=== PATIENT | female | born 1965 | race Caucasian/White ===

== ENCOUNTER → 2016-04-05 | Outpatient (REF) | payer OTHER ==
[~2016-04-05] MED LIST: BACL10TA2; ELIQ5TAB PO; FLON0.05; GABI4TAB OR; IBUP400T OR; IBUP600T OR; KLON0.5T OR; MIRA3350 PO; OMEP10CASR PO; OXYB5TAB4 OR; OXYC-299 PO; OXYC15TA76 PO; PENNSAID; ROBA750T OR; SENO8.6T10 PO; SKEL800T5 OR; SOMA350T; SOMA350T OR; TOPI25TA2; TOPI50TA; TOPI50TA OR; TOPR25TA PO; TRAM50TA2; VICO5TAB; VIT D 2000 OR; ZIPSOR; ZOFR4TAB3 PO; claritin
[2016-04-05 11:24] LABS: ALBUMIN 3.4 GM/DL (3.2-5.2); ALBUMIN/GLOBULIN RATIO 1.13 (1.00-1.93); BILIRUBIN,TOTAL 0.4 MG/DL (0.2-1.0); CREATININE FOR GFR 1.07 MG/DL (0.55-1.02); GLOMERULAR FILTRATION RATE 57.6 (>51); TOTAL PROTEIN 6.4 GM/DL (6.4-8.2)
== END ==
LOC: M SFHCPLAZ 09:23
PROVIDERS: ATTEND Family Medicine
DX: G57.93 Unspecified mononeuropathy of bilateral lower limbs (principal)

== ENCOUNTER → 2016-04-26 | Outpatient (CLI) | payer OTHER ==
--- NOTE | 2016-05-05 00:05 | ECWPNPC ---
PATIENT NAME: SMITH VIVEROS : 1965 GENDER: FEMALE VISIT DATE: 04/26/2016 DISCHARGE DATE: 04/26/16 1221 VISIT LOCKED DATE TIME: PHYSICIAN: ROCÍO GALDAMEZ RESOURCE: ROCÍO GALDAMEZ REASON FOR APPOINTMENT 1. BACK/NECK HISTORY OF PRESENT ILLNESS HISTORY OF PRESENT ILLNESS: PAIN THE PATIENT DESCRIBES THE PAIN... FALL RISK SCREENING: SCREENING :NO FALLS IN THE PAST YEAR TODAY'S VISIT: NOTES: RATES PAIN TODAY 10/10, DESCRIBES PAIN CONSTANT, ACHING, BRNING, SHARP AND STABBING, TENDER, THROBBING AND SHOOTING. WORST AREA OF PAIN IS MID AND LOW BACK HAD TPI TO NECK UPPER SHOULDERS WERE VERY HELPFUL AND DECREASED PAIN IN THIS AREA BY 50 % WITH SIG IMPROVEMENT IN NECK ROM.. CURRENT MEDICATIONS TAKING NYSTATIN POWDER - POWDER DIRECTED EXTERNALLY TWICE A DAY TAKING ZOFRAN ODT 4 MG TABLET DISPERSIBLE 1 TABLET ON THE TONGUE AND ALLOW TO DISSOLVE ORALLY BID NEEDED TAKING TIZANIDINE HCL 4 MG TABLET 1 TABLET NEEDED ORALLY EVERY 8 HRS TAKING ELIQUIS 5 MG TABLET 1 TAB(S) ORALLY TWICE DAILY TAKING ATORVASTATIN CALCIUM 40 MG TABLET 1 TABLET ORALLY ONCE A DAY TAKING GABAPENTIN 100 MG CAPSULE 1 TABLET ORALLY THREE TIMES DAILY TAKING PAROXETINE HCL 30 MG TABLET 1 TABLET IN THE MORNING ORALLY ONCE A DAY TAKING VISTARIL 25 MG CAPSULE 1 CAPSULE NEEDED ORALLY TWICE DAILY NEEDED TAKING PRILOSEC 20 MG CAPSULE DELAYED RELEASE 1 CAPSULE ORALLY TWICE DAILY TAKING TRAMADOL HCL 50 MG TABLET 1 TABLET NEEDED ORALLY TWICE DAILY NEEDED NOT-TAKING LIDOCAINE 4 % CREAM 1 APPLICATION TO AFFECTED AREA NEEDED EXTERNALLY APPLY TO BASE OF NECK, LOW BACK AND LEFT ARM Q 6 HRS NEEDED FOR PAIN, NOTES: NONE DISCONTINUED AMOXICILLIN-POT CLAVULANATE 875-125 MG TABLET 1 TABLET ORALLY EVERY 12 HRS MEDICATION LIST REVIEWED AND RECONCILED WITH THE PATIENT PAST MEDICAL HISTORY FIBROMYALGIA DX 4 YEARS AGO, BEING FOLLOWED AT PAIN CLINIC MIGRAINE HEADACHE STRESS INCONTINENCE DEPRESSION HYPERLIPIDEMIA VITAMIN D DEFICIENCY AFIB GERD INTERMITTENT A FIB ALLERGIES ZIPSOR: ALLERGY FLEXERIL: AGGITATION: ALLERGY LYRICA: ANAPHYLAXIS: ALLERGY DICLOFENAC POTASSIUM: AGGITATION (ZIPSOR): ALLERGY BACTRIM: NAUSEA/VOMITING: ALLERGY SHELL FISH: SWELLS, HIVES: ALLERGY CYMBALTA: NAUSEA/VOMITING: SIDE EFFECTS AMITRIPTYLINE: AGGITATION: SIDE EFFECTS SOCIAL HISTORY GENERAL: TOBACCO USE ARE YOU A:NONSMOKER LEARNING BARRIERS / SPECIAL NEEDS ORIENTED TO PLAN OF CARE: PATIENT, PAIN MANAGEMENT PATIENT, ORIENTED TO PLAN OF CARE: PATIENT, PAIN MANAGEMENT PATIENT. NEW PATIENT PAIN DIARY TODAY'S VISITNOTES FROM 0-10, WHAT LEVEL IS YOUR PAIN TODAY?0 PAIN CLINIC PFS, CLERGY, PUBLIC HEALTH REFERRALS PFS REFERRAL NEEDED?NO CLERGY REFERRAL NEEDED?NO PUBLIC HEALTH REFERRAL NEEDED?NO WAS THE PROVIDER NOTIFIED OF ANY PERTINENT INFO?NO PFS REFERRAL NEEDED?NO CLERGY REFERRAL NEEDED?NO PUBLIC HEALTH REFERRAL NEEDED?NO WAS THE PROVIDER NOTIFIED OF ANY PERTINENT INFO?NO REVIEW OF SYSTEMS CONSTITUTIONAL: ANY CHANGE IN YOUR MEDICAL CONDITION? NO . CHILLS NO . FEVER NO . INFECTION: DO YOU HAVE NEW INFECTIONS? NO . DO YOU HAVE HISTORY OF MRSA? NO . MUSCULOSKELETAL: ANY NEW PATTERNS OF PAIN OR NUMBNESS? YES, RIGHT KNEE- WENT TO [facility] [place] TODAY IS GOING TO HAVE AN MRI . GASTROENTEROLOGY: ANY NEW CHANGE IN BOWEL CONTROL? NO . GENITOURINARY: ANY NEW CHANGE IN BLADDER CONTROL? NO . IS THERE A CHANCE YOU COULD BE ? NO . HEMATOLOGY/LYMPH: DO YOU TAKE ANY BLOOD THINNERS? (FOR EXAMPLE- COUMADIN, PLAVIX, AGGRENOX, PLATEL, PRADAXA, OR XARELTO) YES, ELOQUIS . WHEN WAS YOUR LAST DOSE? DATE: TIME: [id number] . NEUROLOGY: HAVE YOU FALLEN IN THE PAST 6 MONTHS? YES . ANY NEW EXTREMITY NUMBNESS OR WEAKNESS? NO . CARDIOLOGY: DO YOU HAVE A PACEMAKER OR DEFIBRILLATOR? NO . RESPIRATORY: HAVE YOU BEEN SICK IN THE PAST WEEK? NO . FEVER NO . FLU LIKE SYMPTOMS? NO . COUGH NO . INTEGUMENTARY: DO YOU HAVE ANY RASHES OR OPEN SORES? NO . ALLERGIC/IMMUNO: ARE YOU ALLERGIC TO SHELLFISH OR IV DYE? YES SHELLFISH . ANY NEW ALLERGIES? NO . PSYCHIATRIC: DO YOU HAVE THOUGHTS OF HURTING YOURSELF OR SOMEONE ELSE? NO . ARE YOU ABUSED, NEGLECTED, OR IN AN UNSAFE ENVIRONMENT? NO . ENDOCRINOLOGY: ARE YOU DIABETIC? NO . OTHER: DO YOU NEED ANY PRESCRIPTIONS? NO . IF YES, PLEASE LIST: ____ . ANY NEW PROBLEMS WITH YOUR MEDICATIONS? NO . WHEN DID YOU LAST EAT? ____ . WHEN DID YOU LAST DRINK? ____ . WHAT DID YOU LAST DRINK? ____ . NAME OF PERSON DRIVING YOU HOME? ____ . DO YOU HAVE ANY OTHER QUESTIONS OR CONCERNS NO . REVIEWED BY: PROVIDER: ROCÍO DUTTA . VITAL SIGNS WT 260 LBS, HT 61 IN, BMI 49.12 INDEX, BP 144/98 MM HG, HR 107 /MIN, RR 18 /MIN, TEMP 98.5 F, OXYGEN SAT % 98, NA INITIALS TL 1144, REVIEWED BY: CMELEVATED BP 144/98, RN Michelle AWARE- TL. EXAMINATION GENERAL EXAMINATION: PSYCHALERT , ORIENTED X 3 , APPROPRIATE MOOD AND AFFECT TALKACTIVE. LUNGS:SCATTERED WHEEZES BILATERALLY. . HEART:HEART RATE REGULAR. MUSCULOSKELETAL:TRIGGER POINTS:, ELICITED WITH PALPATION OVER LUMBAR PARAVERTEBRAL MUSCLES AND INTO THE SACRUM. RESTRICTION OF ROM IN THIS AREA, TRIGGER POINTS SO NOTED WITH PALPATION OVER MID THORACIC MUSCLES WITH RESTRICITON OF RESPIRATORY EXCURCION NOTED. MUSCLE STRENGTH 5 OVER 5 DISTALLY AND PROXIMALLY IN THE BILATERAL UPPER AND LOWER EXTREMITIES. SOME TENDERNESS WITH PALPATION OVER THE CERVICAL PARASPINOUS MUSCLES. GOOD SHOULDER SHRUG TODAY.. ASSESSMENTS MYALGIA - M79.1 (PRIMARY) FIBROMYALGIA - M79.7 TREATMENT MYALGIA TRIGGER POINT 3 + ROCÍO LIRA 04/26/2016 12:05:48 PM > MID THORACIC AND LOW BACK NOTES: DO NOT STOP ELIQUIS PRIOR TO PROCEDURE,TRIGGER POINT INJECTION: YOUR EXPERIENCE MATERIAL WAS PRINTED. PROCEDURE CODES FA211 ESTABILISHED PATIENT [facility] CHARGE DISPOSITION & COMMUNICATION FOLLOW UP AFTER INJECTION (REASON: CHECK AUTH FOR TPI - ON ELIQUIS) ELECTRONICALLY SIGNED BY MAXIMILIANO NOEL ON 05/04/2016 AT 09:26 AM EST DISCLAIMER : THIS IS A VISIT SUMMARY EXTRACTED FROM THE [employer] CHART. IT IS NOT A COPY OF THE [employer] PROGRESS NOTE. RITA
== END ==
LOC: M PAIN 11:40
PROVIDERS: ATTEND Nurse Practitioner Family
DX: Z09 Encounter for follow-up examination after completed treatment for conditions other than malignant neoplasm (principal); G89.29 Other chronic pain; M79.7 Fibromyalgia; G43.909 Migraine, unspecified, not intractable, without status migrainosus; F32.9 Major depressive disorder, single episode, unspecified; E78.5 Hyperlipidemia, unspecified; E55.9 Vitamin D deficiency, unspecified; I48.91 Unspecified atrial fibrillation; K21.9 Gastro-esophageal reflux disease without esophagitis; M46.1 Sacroiliitis, not elsewhere classified; F41.9 Anxiety disorder, unspecified; Z88.8 Allergy status to other drugs, medicaments and biological substances; Z91.013 Allergy to seafood; Z79.01 Long term (current) use of anticoagulants; Z79.891 Long term (current) use of opiate analgesic; Z79.899 Other long term (current) drug therapy

== ENCOUNTER → 2016-05-18 | Outpatient (CLI) | payer OTHER ==
[~2016-05-18] MED LIST changes: +BUPIVACAINE HCL 0.25% 10 ML VIAL As Ordered ONE; +BUPIVACAINE HCL 0.25% 30 ML VIAL As Ordered ONE; +TRIAMCINOLONE ACETONIDE SUSP 40 MG/ML VIAL (J3301) As Ordered ONE; +diazePAM 5 MG TAB As Ordered ONE; +oxyCODONE 5MG TAB As Ordered ONE
--- NOTE | 2016-05-27 23:33 | ECWPNPC ---
PATIENT NAME: SMITH VIVEROS : 1965 GENDER: FEMALE VISIT DATE: 05/18/2016 DISCHARGE DATE: 05/18/16 1050 VISIT LOCKED DATE TIME: PHYSICIAN: ARELIS MILLER RESOURCE: ARELIS MILLER REASON FOR APPOINTMENT 1. TPI- MID THORACIC AND LOW BACK HISTORY OF PRESENT ILLNESS HISTORY OF PRESENT ILLNESS: PAIN THE PATIENT DESCRIBES THE PAIN... FALL RISK SCREENING: SCREENING :NO FALLS IN THE PAST YEAR CURRENT MEDICATIONS TAKING NYSTATIN POWDER - POWDER DIRECTED EXTERNALLY TWICE A DAY, NOTES: 1 MONTH TAKING ZOFRAN ODT 4 MG TABLET DISPERSIBLE 1 TABLET ON THE TONGUE AND ALLOW TO DISSOLVE ORALLY BID NEEDED, NOTES: 2 MONTHS TAKING TIZANIDINE HCL 4 MG TABLET 1 TABLET NEEDED ORALLY EVERY 8 HRS, NOTES: 04/2016 TAKING ELIQUIS 5 MG TABLET 1 TAB(S) ORALLY TWICE DAILY, NOTES: 05/18/16 6AM TAKING ATORVASTATIN CALCIUM 40 MG TABLET 1 TABLET ORALLY ONCE A DAY, NOTES: 05/18 6AM TAKING GABAPENTIN 100 MG CAPSULE 1 TABLET ORALLY THREE TIMES DAILY, NOTES: 05/18 6AM TAKING PAROXETINE HCL 30 MG TABLET 1 TABLET IN THE MORNING ORALLY ONCE A DAY, NOTES: 05/18 6AM TAKING VISTARIL 25 MG CAPSULE 1 CAPSULE NEEDED ORALLY TWICE DAILY NEEDED, NOTES: 05/17 8PM TAKING PRILOSEC 20 MG CAPSULE DELAYED RELEASE 1 CAPSULE ORALLY TWICE DAILY, NOTES: 05/18 6AM TAKING TRAMADOL HCL 50 MG TABLET 1 TABLET NEEDED ORALLY TWICE DAILY NEEDED, NOTES: 2016 NOT-TAKING LIDOCAINE 4 % CREAM 1 APPLICATION TO AFFECTED AREA NEEDED EXTERNALLY APPLY TO BASE OF NECK, LOW BACK AND LEFT ARM Q 6 HRS NEEDED FOR PAIN, NOTES: NONE MEDICATION LIST REVIEWED AND RECONCILED WITH THE PATIENT PAST MEDICAL HISTORY FIBROMYALGIA DX 4 YEARS AGO, BEING FOLLOWED AT PAIN CLINIC MIGRAINE HEADACHE STRESS INCONTINENCE DEPRESSION HYPERLIPIDEMIA VITAMIN D DEFICIENCY AFIB GERD INTERMITTENT A FIB ALLERGIES ZIPSOR: ALLERGY FLEXERIL: AGGITATION: ALLERGY LYRICA: ANAPHYLAXIS: ALLERGY DICLOFENAC POTASSIUM: AGGITATION (ZIPSOR): ALLERGY BACTRIM: NAUSEA/VOMITING: ALLERGY SHELL FISH: SWELLS, HIVES: ALLERGY CYMBALTA: NAUSEA/VOMITING: SIDE EFFECTS AMITRIPTYLINE: AGGITATION: SIDE EFFECTS SOCIAL HISTORY GENERAL: TOBACCO USE ARE YOU A:NONSMOKER LEARNING BARRIERS / SPECIAL NEEDS ORIENTED TO PLAN OF CARE: PATIENT, PAIN MANAGEMENT PATIENT, ORIENTED TO PLAN OF CARE: PATIENT, PAIN MANAGEMENT PATIENT. NEW PATIENT PAIN DIARY TODAY'S VISITNOTES FROM 0-10, WHAT LEVEL IS YOUR PAIN TODAY?0 PAIN CLINIC PFS, CLERGY, PUBLIC HEALTH REFERRALS PFS REFERRAL NEEDED?NO CLERGY REFERRAL NEEDED?NO PUBLIC HEALTH REFERRAL NEEDED?NO WAS THE PROVIDER NOTIFIED OF ANY PERTINENT INFO?NO PFS REFERRAL NEEDED?NO CLERGY REFERRAL NEEDED?NO PUBLIC HEALTH REFERRAL NEEDED?NO WAS THE PROVIDER NOTIFIED OF ANY PERTINENT INFO?NO REVIEW OF SYSTEMS CONSTITUTIONAL: ANY CHANGE IN YOUR MEDICAL CONDITION? NO . CHILLS NO . FEVER NO . INFECTION: DO YOU HAVE NEW INFECTIONS? NO . DO YOU HAVE HISTORY OF MRSA? NO . MUSCULOSKELETAL: ANY NEW PATTERNS OF PAIN OR NUMBNESS? YES, PAIN GOING UP NECK . GASTROENTEROLOGY: ANY NEW CHANGE IN BOWEL CONTROL? NO . GENITOURINARY: ANY NEW CHANGE IN BLADDER CONTROL? NO . IS THERE A CHANCE YOU COULD BE ? NO . HEMATOLOGY/LYMPH: DO YOU TAKE ANY BLOOD THINNERS? (FOR EXAMPLE- COUMADIN, PLAVIX, AGGRENOX, PLATEL, PRADAXA, OR XARELTO) YES, ELIQUIS . WHEN WAS YOUR LAST DOSE? DATE: 05/18/16 6AM . NEUROLOGY: HAVE YOU FALLEN IN THE PAST 6 MONTHS? YES, PT STATES THAT SHE WAS HOME AND KNEE GAVE OUT, FELL FELT PAIN IN KNEE AND BACK. NO REPORT TO ED . ANY NEW EXTREMITY NUMBNESS OR WEAKNESS? NO . CARDIOLOGY: DO YOU HAVE A PACEMAKER OR DEFIBRILLATOR? NO . RESPIRATORY: HAVE YOU BEEN SICK IN THE PAST WEEK? NO . FEVER NO . FLU LIKE SYMPTOMS? NO . COUGH NO . INTEGUMENTARY: DO YOU HAVE ANY RASHES OR OPEN SORES? NO . ALLERGIC/IMMUNO: ARE YOU ALLERGIC TO SHELLFISH OR IV DYE? YES, SHELLFISH . ANY NEW ALLERGIES? NO . PSYCHIATRIC: DO YOU HAVE THOUGHTS OF HURTING YOURSELF OR SOMEONE ELSE? NO . ARE YOU ABUSED, NEGLECTED, OR IN AN UNSAFE ENVIRONMENT? NO . ENDOCRINOLOGY: ARE YOU DIABETIC? NO . OTHER: DO YOU NEED ANY PRESCRIPTIONS? YES, PAIN MEDS PLEASE . IF YES, PLEASE LIST: ____ . ANY NEW PROBLEMS WITH YOUR MEDICATIONS? NO . WHEN DID YOU LAST EAT? 05/17 6PM . WHEN DID YOU LAST DRINK? 05/17 6AM . WHAT DID YOU LAST DRINK? WATER . NAME OF PERSON DRIVING YOU HOME? ANN . DO YOU HAVE ANY OTHER QUESTIONS OR CONCERNS FLU SHOT IN 2015, PT STATES THAT SHE IS GETTING INJECTION [facility] [place] ON [facility] . REVIEWED BY: PROVIDER: . VITAL SIGNS WT 220 LBS, HT 61 IN, BMI 41.56 INDEX, BP 181.91 MM HG, HR 92 /MIN, RR 18 /MIN, TEMP 97.5 F, OXYGEN SAT % 94%, SAFE IN ENV? (Y/N) Y, NA INITIALS OR 09:10, REVIEWED BY: JOHNNIE. ASSESSMENTS MYALGIA - M79.1 (PRIMARY) PROCEDURES PN TRIGGER POINT INJECTION WITH STEROIDS PRE PROCEDURE DIAGNOSIS 1. MYALGIA 2. PAIN AT BILATERAL THORACIC AREA AND BILATERAL LOWER BACK AREA POST PROCEDURE DIAGNOSIS 1. MYALGIA 2. PAIN AT BILATERAL THORACIC AREA AND BILATERAL LOWER BACK AREA PROCEDURE TRIGGER POINT INJECTION AT BILATERAL THORACIC AREA AND BILATERAL LOWER BACK AREA SURGEON DR. ARELIS MILLER PATCH FINISHER NONE ANESTHESIA LOCAL PRE PROCEDURE NOTE THE PATIENT HAS A HISTORY OF CHRONIC PAIN AT THE RIGHT AND LEFT THORACIC AREA AND RIGHT AND LEFT LOWER BACK AREA. I EVALUATE THE PATIENT AND REVIEWED THE CHART. THERE IS EVIDENCE OF BANDS OF TISSUE WITH RESTRICTION OF MOVEMENT AND PRESENCE OF TRIGGER POINT AT THE AFFECTED AREA. I WENT OVER THE RISKS, ALTERNATIVES, AND BENEFITS ASSOCIATED WITH THIS PROCEDURE. THE PATIENT WOULD LIKE TO PROCEED AND GIVE CONSENT TO PERFORMED THE PROCEDURE. THE PATIENT DENIES UNEXPLAINABLE WEIGHT LOSS, FEVER, CHILLS, OR NEW CHANGES IN URINARY OR BOWEL CONTROL DESCRIPTION OF PROCEDURE THE PATIENT WAS BROUGHT TO THE PROCEDURE ROOM AND PLACED IN THE SITTING POSITION. THE AREA WAS CLEANED WITH ALCOHOL. THE PROCEDURE WAS DONE USING ASEPTIC STERILE TECHNIQUE. I CHECKED LATERALITY AND THE LEVEL WHERE THE PROCEDURE WAS GOING TO BE PERFORMED WITH THE PATIENT AND THE SUPPORTING STAFF AT THE MOMENT OF THE TIME OUT IN THE PROCEDURE ROOM. USING A 25-GAUGE NEEDLE, TRIGGER POINTS WERE INJECTED AT THE RIGHT AND LEFT THORACIC AREA AND RIGHT AND LEFT LOWER BACK AREA WITH A TOTAL OF 40 ML OF BUPIVACAINE 0.25% AND KENALOG 40 MG. THERE WAS NO EVIDENCE OF BLOOD, PARESTHESIA OR CEREBROSPINAL FLUID DURING THE PROCEDURE. THE PATIENT WAS SENT TO THE RECOVERY ROOM. THE PATIENT WAS MOVING THE EXTREMITIES AND DOING WELL. THERE WAS NO COMPLICATION DURING THE PROCEDURE POST PROCEDURE NOTE THE PATIENT WILL BE SEEN IN A FOLLOW UP IN THE NEXT FEW WEEKS. INSTRUCTIONS WERE GIVEN, QUESTIONS WERE ANSWERED, AND THE PATIENT EXPRESSED UNDERSTANDING AND AGREES WITH THE PLAN. INSTRUCTIONS WERE GIVEN, QUESTIONS WERE ANSWERED, PATIENT REPORTS UNDERSTANDING AND AGREES WITH THE PLAN. I, [employer] DOUGLAS, DOCUMENTED THE ABOVE INFORMATION ACTING A SCRIBE FOR DR. MILLER. I HAVE REVIEWED THE ABOVE DOCUMENT, WRITTEN BY [employer] SANCHEZIBRaul AND I VERIFY THAT IT IS ACCURATE. PROCEDURE CODES 67256 INJECT TRIGGER POINTS 3/> DISPOSITION & COMMUNICATION FOLLOW UP 3 WEEKS ELECTRONICALLY SIGNED BY ARELIS MILLER MD ON 05/27/2016 AT 08:37 PM EDT DISCLAIMER : THIS IS A VISIT SUMMARY EXTRACTED FROM THE [employer] CHART. IT IS NOT A COPY OF THE [employer] PROGRESS NOTE. RITA
== END ==
LOC: M PAIN 09:00
PROVIDERS: ATTEND Anesthesiology
DX: Z09 Encounter for follow-up examination after completed treatment for conditions other than malignant neoplasm (principal); G89.29 Other chronic pain; M54.5 Low back pain; M54.6 Pain in thoracic spine; M79.1 Myalgia; G43.909 Migraine, unspecified, not intractable, without status migrainosus; F32.9 Major depressive disorder, single episode, unspecified; E78.5 Hyperlipidemia, unspecified; E55.9 Vitamin D deficiency, unspecified; I48.91 Unspecified atrial fibrillation; K21.9 Gastro-esophageal reflux disease without esophagitis; Z91.013 Allergy to seafood; Z88.1 Allergy status to other antibiotic agents; Z88.8 Allergy status to other drugs, medicaments and biological substances; Z79.01 Long term (current) use of anticoagulants; Z79.899 Other long term (current) drug therapy
CPT/HCPCS: 20553; J3301

== ENCOUNTER 2016-06-05 22:49 | Emergency (ER) | payer OTHER ==
[~2016-06-05] VITALS: Ht 157.5 cm; Wt 104.3 kg
[~2016-06-05 22:49] MED LIST changes: -BUPIVACAINE HCL 0.25% 10 ML VIAL As Ordered ONE; -BUPIVACAINE HCL 0.25% 30 ML VIAL As Ordered ONE; -TRIAMCINOLONE ACETONIDE SUSP 40 MG/ML VIAL (J3301) As Ordered ONE; -diazePAM 5 MG TAB As Ordered ONE; -oxyCODONE 5MG TAB As Ordered ONE
[2016-06-05 22:51] VITALS: BP 121/78
[2016-06-05] MEDS ORDERED: PERCOCET 5MG/325MG TAB PO ONE (23:45)
--- NOTE | 2016-06-06 01:00 | REPUSA ---
CLINICAL HISTORY: Left upper extremity edema COMMENTS: Real-time ultrasound images of the deep venous system with Doppler evaluation. Normal compression, spontaneity and augmentation. Normal color Doppler. No intraluminal thrombus is seen. IMPRESSION: No evidence of deep venous thrombosis. Complete resolution of superficial thrombosis when compared to the prior exam on 05/17/2015. Thank you for your kind referral of this patient.
[2016-06-06] MEDS ORDERED: PERC5TAB6 PO (01:25)
[2016-06-06] MEDS ORDERED: NEOSPORIN OINT 0.9 GM PKT (FLOOR STOCK) As Ordered ONE (01:50)
== END 2016-06-06 01:00 | disposition home or self-care (01) ==
LOC: M ED 23:33
DX: M79.622 Pain in left upper arm (principal); M54.5 Low back pain; Z86.718 Personal history of other venous thrombosis and embolism; Z79.01 Long term (current) use of anticoagulants; Z88.8 Allergy status to other drugs, medicaments and biological substances; Z91.013 Allergy to seafood

== ENCOUNTER → 2016-06-09 | Outpatient (CLI) | payer OTHER ==
[~2016-06-09] MED LIST changes: +PERC5TAB6 PO
--- NOTE | 2016-06-22 01:32 | ECWPNPC ---
PATIENT NAME: SMITH VIVEROS : 1965 GENDER: FEMALE VISIT DATE: 06/09/2016 DISCHARGE DATE: 06/09/16 1549 VISIT LOCKED DATE TIME: PHYSICIAN: ROCÍO GALDAMEZ RESOURCE: ROCÍO GALDAMEZ REASON FOR APPOINTMENT 1. POST PROCEDURE HISTORY OF PRESENT ILLNESS HISTORY OF PRESENT ILLNESS: PAIN THE PATIENT DESCRIBES THE PAIN... FALL RISK SCREENING: SCREENING :NO FALLS IN THE PAST YEAR TODAY'S VISIT: NOTES: RATES PAIN TODAY 10/10. IS S/P TPI AT RIGHT /LEFT THORACIC AND LOW BACK. REPORTS PAIN DECREASED FROM 10 -TO 8/10INITIALLY, THEN BACK TO 10/10 AND THEN DOWN TO 8/10. HURTS ALL OVER. WENT TO ER. STATES WAS GIVEN PERCOCET. IF LAYING ON SIDE NOTES PAIN RADIATING AROUND TO ABDOMEN. STATES LEGS FEEL HEAVY.. CURRENT MEDICATIONS TAKING NYSTATIN POWDER - POWDER DIRECTED EXTERNALLY TWICE A DAY, NOTES: 1 MONTH TAKING TIZANIDINE HCL 4 MG TABLET 1 TABLET NEEDED ORALLY EVERY 8 HRS, NOTES: 04/2016 TAKING ELIQUIS 5 MG TABLET 1 TAB(S) ORALLY TWICE DAILY, NOTES: 05/18/16 6AM TAKING ATORVASTATIN CALCIUM 40 MG TABLET 1 TABLET ORALLY ONCE A DAY, NOTES: 05/18 6AM TAKING GABAPENTIN 100 MG CAPSULE 1 TABLET ORALLY THREE TIMES DAILY, NOTES: 05/18 6AM TAKING PAROXETINE HCL 30 MG TABLET 1 TABLET IN THE MORNING ORALLY ONCE A DAY, NOTES: 05/18 6AM TAKING VISTARIL 25 MG CAPSULE 1 CAPSULE NEEDED ORALLY TWICE DAILY NEEDED, NOTES: 05/17 8PM TAKING PRILOSEC 20 MG CAPSULE DELAYED RELEASE 1 CAPSULE ORALLY TWICE DAILY, NOTES: 05/18 6AM TAKING BLOOD PRESSURE CUFF - MISCELLANEOUS DIRECTED _ DAILY TAKING LISINOPRIL 10 MG TABLET DIRECTED ORALLY DAILY NOT-TAKING TRAMADOL HCL 50 MG TABLET 1 TABLET NEEDED ORALLY TWICE DAILY NEEDED, NOTES: 2016 NOT-TAKING LIDOCAINE 4 % CREAM 1 APPLICATION TO AFFECTED AREA NEEDED EXTERNALLY APPLY TO BASE OF NECK, LOW BACK AND LEFT ARM Q 6 HRS NEEDED FOR PAIN, NOTES: NONE NOT-TAKING ZOFRAN ODT 4 MG TABLET DISPERSIBLE 1 TABLET ON THE TONGUE AND ALLOW TO DISSOLVE ORALLY BID NEEDED, NOTES: 2 MONTHS MEDICATION LIST REVIEWED AND RECONCILED WITH THE PATIENT PAST MEDICAL HISTORY FIBROMYALGIA DX 4 YEARS AGO, BEING FOLLOWED AT PAIN CLINIC MIGRAINE HEADACHE STRESS INCONTINENCE DEPRESSION HYPERLIPIDEMIA VITAMIN D DEFICIENCY AFIB GERD INTERMITTENT A FIB ALLERGIES ZIPSOR: ALLERGY FLEXERIL: AGGITATION: ALLERGY LYRICA: ANAPHYLAXIS: ALLERGY DICLOFENAC POTASSIUM: AGGITATION (ZIPSOR): ALLERGY BACTRIM: NAUSEA/VOMITING: ALLERGY SHELL FISH: SWELLS, HIVES: ALLERGY CYMBALTA: NAUSEA/VOMITING: SIDE EFFECTS AMITRIPTYLINE: AGGITATION: SIDE EFFECTS SOCIAL HISTORY GENERAL: PAIN CLINIC PFS, CLERGY, PUBLIC HEALTH REFERRALS CLERGY REFERRAL NEEDED?NO WAS THE PROVIDER NOTIFIED OF ANY PERTINENT INFO?NO PFS REFERRAL NEEDED?NO PUBLIC HEALTH REFERRAL NEEDED?NO PATIENT: ____. REVIEW OF SYSTEMS CONSTITUTIONAL: ANY CHANGE IN YOUR MEDICAL CONDITION? NO . CHILLS NO . FEVER NO . INFECTION: DO YOU HAVE NEW INFECTIONS? NO . DO YOU HAVE HISTORY OF MRSA? NO . MUSCULOSKELETAL: ANY NEW PATTERNS OF PAIN OR NUMBNESS? YES, PAIN IS WORSE . GASTROENTEROLOGY: ANY NEW CHANGE IN BOWEL CONTROL? NO . GENITOURINARY: ANY NEW CHANGE IN BLADDER CONTROL? NO . IS THERE A CHANCE YOU COULD BE ? NO . HEMATOLOGY/LYMPH: DO YOU TAKE ANY BLOOD THINNERS? (FOR EXAMPLE- COUMADIN, PLAVIX, AGGRENOX, PLATEL, PRADAXA, OR XARELTO) YES - NO RECURRENT BLOOD CLOTS . WHEN WAS YOUR LAST DOSE? DATE: TIME: . NEUROLOGY: HAVE YOU FALLEN IN THE PAST 6 MONTHS? YES . ANY NEW EXTREMITY NUMBNESS OR WEAKNESS? NO . CARDIOLOGY: DO YOU HAVE A PACEMAKER OR DEFIBRILLATOR? NO . RESPIRATORY: HAVE YOU BEEN SICK IN THE PAST WEEK? NO . FEVER NO . FLU LIKE SYMPTOMS? NO . COUGH NO . INTEGUMENTARY: DO YOU HAVE ANY RASHES OR OPEN SORES? NO . ALLERGIC/IMMUNO: ARE YOU ALLERGIC TO SHELLFISH OR IV DYE? YES, SHELLFISH . ANY NEW ALLERGIES? NO . PSYCHIATRIC: DO YOU HAVE THOUGHTS OF HURTING YOURSELF OR SOMEONE ELSE? NO . ARE YOU ABUSED, NEGLECTED, OR IN AN UNSAFE ENVIRONMENT? NO . ENDOCRINOLOGY: ARE YOU DIABETIC? NO . OTHER: DO YOU NEED ANY PRESCRIPTIONS? NO . IF YES, PLEASE LIST: ____ . ANY NEW PROBLEMS WITH YOUR MEDICATIONS? NO . WHEN DID YOU LAST EAT? ____ . WHEN DID YOU LAST DRINK? ____ . WHAT DID YOU LAST DRINK? ____ . NAME OF PERSON DRIVING YOU HOME? ____ . DO YOU HAVE ANY OTHER QUESTIONS OR CONCERNS NO . UROLOGY: HEMATURIA SEVERAL MONTHS AGO . REVIEWED BY: PROVIDER: ROCÍO DUTTA . VITAL SIGNS WT 260 LBS, HT 61 IN, BMI 49.12 INDEX, BP 141/91 MM HG, HR 114 /MIN, RR 18 /MIN, TEMP 97.6 F, OXYGEN SAT % 98%, NA INITIALS SC15:04, REVIEWED BY: CM. EXAMINATION GENERAL EXAMINATION: PSYCHALERT , ORIENTED X 3 , APPROPRIATE MOOD AND AFFECT TALKACTIVE. LUNGS:SCATTERED WHEEZES BILATERALLY. . HEART:HEART RATE REGULAR. MUSCULOSKELETAL:TRIGGER POINTS:, ELICITED WITH PALPATION OVER LUMBAR PARAVERTEBRAL MUSCLES AND INTO THE SACRUM. RESTRICTION OF ROM IN THIS AREA, TRIGGER POINTS SO NOTED WITH PALPATION OVER MID THORACIC MUSCLES WITH RESTRICITON OF RESPIRATORY EXCURCION NOTED. MUSCLE STRENGTH 5 OVER 5 DISTALLY AND PROXIMALLY IN THE BILATERAL UPPER AND LOWER EXTREMITIES. SOME TENDERNESS WITH PALPATION OVER THE CERVICAL PARASPINOUS MUSCLES. GOOD SHOULDER SHRUG TODAY.. ASSESSMENTS MYALGIA - M79.1 (PRIMARY) TREATMENT MYALGIA START TRAMADOL HCL TABLET, 50 MG, 1-2 TABLET NEEDED, ORALLY, EVERY 8 HRS MDD=3, 30 DAY(S), 90, REFILLS 1 REFILL TIZANIDINE HCL TABLET, 4 MG, 1 TABLET NEEDED, ORALLY, EVERY 8 HRS, 30 DAY(S), 90 TABLET, REFILLS 1 LAB: MAGNESIUM LEVEL LAB: VITAMIN D 1,25 DIHYDROXY [facility] : SPINE,THORACIC W/BENDING [id number] M 06/09/2016 3:30:00 PM > MID AND LOW THORACIC PAIN CLINICAL NOTES: REVIEWED WITH PATIENT THAT WE WILL NOT BE PUTTING HER ON OPIOD MEDICATIONS. ENCOURAGED WALKING, STRETCHES, HEAT AND COLD APPLICATIONS. PROCEDURE CODES FA211 ESTABILISHED PATIENT [facility] CHARGE DISPOSITION & COMMUNICATION FOLLOW UP 26-28 DAYS ELECTRONICALLY SIGNED BY MAXIMILIANO NOEL ON 06/21/2016 AT 06:45 PM EDT DISCLAIMER : THIS IS A VISIT SUMMARY EXTRACTED FROM THE [employer] CHART. IT IS NOT A COPY OF THE [employer] PROGRESS NOTE. RITA
== END | disposition home or self-care (01) ==
LOC: M PAIN 15:00
PROVIDERS: ATTEND Nurse Practitioner Family
DX: Z09 Encounter for follow-up examination after completed treatment for conditions other than malignant neoplasm (principal); G89.29 Other chronic pain; I48.91 Unspecified atrial fibrillation; K21.9 Gastro-esophageal reflux disease without esophagitis; E55.9 Vitamin D deficiency, unspecified; E78.5 Hyperlipidemia, unspecified; F33.9 Major depressive disorder, recurrent, unspecified; M79.7 Fibromyalgia; Z79.899 Other long term (current) drug therapy; Z79.01 Long term (current) use of anticoagulants; Z88.1 Allergy status to other antibiotic agents; Z88.8 Allergy status to other drugs, medicaments and biological substances; Z91.013 Allergy to seafood

== ENCOUNTER → 2016-06-26 | Outpatient (CLI) | payer OTHER ==
[2016-06-26 15:13] LABS: MAGNESIUM LEVEL 2.2 MG/DL (1.8-2.4)
--- NOTE | 2016-06-26 15:13 | REP ---
THORACIC SPINE, THREE VIEWS: HISTORY: Myalgia. There is no acute fracture or subluxation. The intervertebral discs are normal in height. Osteophytes are present in the lower thoracic spine. IMPRESSION: Degenerative change as described above. Signed by Reinaldo Torres MD 06/26/2016 03:25 P
== END ==
LOC: M LAB 14:26
PROVIDERS: ATTEND Nurse Practitioner Family
DX: M79.1 Myalgia (principal)

== ENCOUNTER → 2016-07-05 | Outpatient (CLI) | payer OTHER ==
[~2016-07-05] MED LIST changes: +LISI10TA4 PO; +NORCOTAB PO; +TIZA4CAP3 PO; +VIST25CA PO
--- NOTE | 2016-07-25 02:14 | ECWPNPC ---
PATIENT NAME: SMITH VIVEROS : 1965 GENDER: FEMALE VISIT DATE: 07/05/2016 DISCHARGE DATE: 07/05/16 0958 VISIT LOCKED DATE TIME: PHYSICIAN: ROCÍO GALDAMEZ RESOURCE: ROCÍO GALDAMEZ REASON FOR APPOINTMENT 1. 26-28 DAY HISTORY OF PRESENT ILLNESS HISTORY OF PRESENT ILLNESS: PAIN THE PATIENT DESCRIBES THE PAIN... FALL RISK SCREENING: SCREENING :NO FALLS IN THE PAST YEAR TODAY'S VISIT: NOTES: RATES PAIN TODAY 10/10. REPORTS SHE IS VERY TENDER OVER BASE OF NECKAND ACROSS THE SHOULDERS. STATES THAT GABAPENTINAND TRAMADOL ARE CAUSING UNTOWARD ADVERSE REACTIONS INCLUDING HALLUCINATIONS AND IRRITABILITY.LABS REVIEWED - MAGNESIUM 2.2, VIT D VERY LOW AT 11.4. CURRENT MEDICATIONS TAKING ELIQUIS 5 MG TABLET 1 TAB(S) ORALLY TWICE DAILY, NOTES: 05/18/16 6AM TAKING ATORVASTATIN CALCIUM 40 MG TABLET 1 TABLET ORALLY ONCE A DAY, NOTES: 05/18 6AM TAKING PAROXETINE HCL 30 MG TABLET 1 TABLET IN THE MORNING ORALLY ONCE A DAY, NOTES: 05/18 6AM TAKING VISTARIL 25 MG CAPSULE 1 CAPSULE NEEDED ORALLY TWICE DAILY NEEDED, NOTES: 05/17 8PM TAKING PRILOSEC 20 MG CAPSULE DELAYED RELEASE 1 CAPSULE ORALLY TWICE DAILY, NOTES: 05/18 6AM TAKING BLOOD PRESSURE CUFF - MISCELLANEOUS DIRECTED _ DAILY TAKING LISINOPRIL 10 MG TABLET DIRECTED ORALLY DAILY TAKING TIZANIDINE HCL 4 MG TABLET 1 TABLET NEEDED ORALLY EVERY 8 HRS NOT-TAKING GABAPENTIN 100 MG CAPSULE 1 TABLET ORALLY THREE TIMES DAILY, NOTES: 05/18 6AM NOT-TAKING TRAMADOL HCL 50 MG TABLET 1-2 TABLET NEEDED ORALLY EVERY 8 HRS MDD=3 NOT-TAKING TRAMADOL HCL 50 MG TABLET 1 TABLET NEEDED ORALLY TWICE DAILY NEEDED, NOTES: 2016 DISCONTINUED NYSTATIN POWDER - POWDER DIRECTED EXTERNALLY TWICE A DAY, NOTES: 1 MONTH DISCONTINUED LIDOCAINE 4 % CREAM 1 APPLICATION TO AFFECTED AREA NEEDED EXTERNALLY APPLY TO BASE OF NECK, LOW BACK AND LEFT ARM Q 6 HRS NEEDED FOR PAIN, NOTES: NONE DISCONTINUED ZOFRAN ODT 4 MG TABLET DISPERSIBLE 1 TABLET ON THE TONGUE AND ALLOW TO DISSOLVE ORALLY BID NEEDED, NOTES: 2 MONTHS MEDICATION LIST REVIEWED AND RECONCILED WITH THE PATIENT PAST MEDICAL HISTORY FIBROMYALGIA DX 4 YEARS AGO, BEING FOLLOWED AT PAIN CLINIC MIGRAINE HEADACHE STRESS INCONTINENCE DEPRESSION HYPERLIPIDEMIA VITAMIN D DEFICIENCY AFIB GERD INTERMITTENT A FIB ALLERGIES ZIPSOR: ALLERGY FLEXERIL: AGGITATION: ALLERGY LYRICA: ANAPHYLAXIS: ALLERGY DICLOFENAC POTASSIUM: AGGITATION (ZIPSOR): ALLERGY BACTRIM: NAUSEA/VOMITING: ALLERGY SHELL FISH: SWELLS, HIVES: ALLERGY CYMBALTA: NAUSEA/VOMITING: SIDE EFFECTS AMITRIPTYLINE: AGGITATION: SIDE EFFECTS GABAPENTIN: HALLUCINATIONS: SIDE EFFECTS TRAMADOL HCL: HALLUCINATIONS: SIDE EFFECTS SOCIAL HISTORY GENERAL: PAIN CLINIC PFS, CLERGY, PUBLIC HEALTH REFERRALS CLERGY REFERRAL NEEDED?NO WAS THE PROVIDER NOTIFIED OF ANY PERTINENT INFO?NO PFS REFERRAL NEEDED?NO PUBLIC HEALTH REFERRAL NEEDED?NO PATIENT: ____. REVIEW OF SYSTEMS CONSTITUTIONAL: ANY CHANGE IN YOUR MEDICAL CONDITION? NO . CHILLS NO . FEVER NO . INFECTION: DO YOU HAVE NEW INFECTIONS? NO . DO YOU HAVE HISTORY OF MRSA? NO . MUSCULOSKELETAL: ANY NEW PATTERNS OF PAIN OR NUMBNESS? YES, NECK HAS SHOOTING PAINS . GASTROENTEROLOGY: GENERAL ALT FORMED AND THEN DIARRHEA STOOLS . ANY NEW CHANGE IN BOWEL CONTROL? NO . GENITOURINARY: ANY NEW CHANGE IN BLADDER CONTROL? NO . IS THERE A CHANCE YOU COULD BE ? NO . HEMATOLOGY/LYMPH: DO YOU TAKE ANY BLOOD THINNERS? (FOR EXAMPLE- COUMADIN, PLAVIX, AGGRENOX, PLATEL, PRADAXA, OR XARELTO) YES, ELIQUIS . WHEN WAS YOUR LAST DOSE? DATE: TIME: 07-05-16 0700 . NEUROLOGY: HAVE YOU FALLEN IN THE PAST 6 MONTHS? YES . ANY NEW EXTREMITY NUMBNESS OR WEAKNESS? NO . CARDIOLOGY: DO YOU HAVE A PACEMAKER OR DEFIBRILLATOR? NO . PATIENT DENIES ANY NEW SX OF BLOOD CLOTS . RESPIRATORY: HAVE YOU BEEN SICK IN THE PAST WEEK? NO . FEVER NO . FLU LIKE SYMPTOMS? NO . COUGH NO . INTEGUMENTARY: DO YOU HAVE ANY RASHES OR OPEN SORES? NO . ALLERGIC/IMMUNO: ARE YOU ALLERGIC TO SHELLFISH OR IV DYE? YES, SHELLFISH . ANY NEW ALLERGIES? NO . PSYCHIATRIC: DO YOU HAVE THOUGHTS OF HURTING YOURSELF OR SOMEONE ELSE? NO . ARE YOU ABUSED, NEGLECTED, OR IN AN UNSAFE ENVIRONMENT? NO . ENDOCRINOLOGY: ARE YOU DIABETIC? NO . OTHER: DO YOU NEED ANY PRESCRIPTIONS? YES, . IF YES, PLEASE LIST: PAIN MEDS . ANY NEW PROBLEMS WITH YOUR MEDICATIONS? YES, PAIN MEDS NOT WORKING. . WHEN DID YOU LAST EAT? ____ . WHEN DID YOU LAST DRINK? ____ . WHAT DID YOU LAST DRINK? ____ . NAME OF PERSON DRIVING YOU HOME? ____ . DO YOU HAVE ANY OTHER QUESTIONS OR CONCERNS NO . SKIN: DO YOU HAVE ANY RASHES OR OPEN SORES? REPORTS DRAINING FROM OLD RIGHT LEG WOUND . REVIEWED BY: PROVIDER: ROCÍO DUTTA . VITAL SIGNS WT 260 LBS, HT 61 IN, BMI 49.12 INDEX, BP 162/81 MM HG, HR 82 /MIN, RR 18 /MIN, TEMP 99. F, OXYGEN SAT % 97%, NA INITIALS CM 0920. EXAMINATION GENERAL EXAMINATION: PSYCHALERT , ORIENTED X 3 , APPROPRIATE MOOD AND AFFECT TALKACTIVE. LUNGS:SCATTERED WHEEZES BILATERALLY. . HEART:HEART RATE REGULAR. MUSCULOSKELETAL:TRIGGER POINTS:, ELICITED WITH PALPATION OVER LUMBAR PARAVERTEBRAL MUSCLES AND INTO THE SACRUM. RESTRICTION OF ROM IN THIS AREA, TRIGGER POINTS SO NOTED WITH PALPATION OVER MID THORACIC MUSCLES WITH RESTRICITON OF RESPIRATORY EXCURCION NOTED. MUSCLE STRENGTH 5 OVER 5 DISTALLY AND PROXIMALLY IN THE BILATERAL UPPER AND LOWER EXTREMITIES. SOME TENDERNESS WITH PALPATION OVER THE CERVICAL PARASPINOUS MUSCLES. GOOD SHOULDER SHRUG TODAY.. ASSESSMENTS MYALGIA - M79.1 (PRIMARY) DEGENERATIVE JOINT DISEASE INVOLVING MULTIPLE JOINTS ON BOTH SIDES OF BODY - M15.9 TREATMENT MYALGIA TRIGGER POINT 3 + ORCÍO LIRA 07/05/2016 9:43:24 AM > NECK/UPPER BACK NOTES: TALK TO DR ADAMS ABOUT HIGH DOSE VITAMIN D. STOP ALL SODA. ,TRIGGER POINT INJECTION MATERIAL WAS PRINTED. DISCONTINUE TRAMADOL. REVIEED WITH PATIENT THAT WE WILL NOT BE USING ANY OTHER OPIOIDS BUT WILL CONCENTRATE ON OTHER OPTIONS FOR PAIN CONTROL. PROCEDURE CODES FA211 ESTABILISHED PATIENT [facility] FACILITY CHARGE DISPOSITION & COMMUNICATION FOLLOW UP AFTER INJECTION (REASON: CHECK AUTH FOR TPI) ELECTRONICALLY SIGNED BY MAXIMILIANO NOEL ON 07/24/2016 AT 01:51 PM EDT DISCLAIMER : THIS IS A VISIT SUMMARY EXTRACTED FROM THE [employer] CHART. IT IS NOT A COPY OF THE [employer] PROGRESS NOTE. RITA
== END ==
LOC: M PAIN 11:00
PROVIDERS: ATTEND Nurse Practitioner Family
DX: G89.29 Other chronic pain (principal); M79.1 Myalgia; M15.9 Polyosteoarthritis, unspecified; F33.9 Major depressive disorder, recurrent, unspecified; E78.5 Hyperlipidemia, unspecified; E55.9 Vitamin D deficiency, unspecified; I48.91 Unspecified atrial fibrillation; K21.9 Gastro-esophageal reflux disease without esophagitis; Z79.899 Other long term (current) drug therapy; Z79.01 Long term (current) use of anticoagulants; Z88.1 Allergy status to other antibiotic agents; Z88.5 Allergy status to narcotic agent; Z88.8 Allergy status to other drugs, medicaments and biological substances; Z91.013 Allergy to seafood

== ENCOUNTER 2016-07-25 14:50 | Emergency (ER) | payer OTHER ==
[~2016-07-25] VITALS: Ht 154.9 cm; Wt 120.2 kg
[~2016-07-25 14:50] MED LIST changes: -LISI10TA4 PO; -NORCOTAB PO; -TIZA4CAP3 PO; -VIST25CA PO
[2016-07-25] MEDS ORDERED: VIST25CA PO (15:03)
[2016-07-25] MEDS ORDERED: LISI10TA4 PO (15:03)
[2016-07-25] MEDS ORDERED: TIZA4CAP3 PO (15:03)
[2016-07-25] MEDS ORDERED: NORCO, ANEXSIA 5/325MG TABLET (HYDROcodone/ACETAMINOPHEN) PO ONE (16:00)
--- NOTE | 2016-07-25 16:41 | REP ---
Clinical: Left upper extremity pain. Technique: Martinez scale and color Doppler evaluation using linear high frequency transducer. Findings: Ultrasound examination of the left upper extremity deep venous structures including jugular, subclavian, axillary, brachial, basilic and cephalic veins demonstrates normal compressibility flow and wave patterns in response to respiration and augmentation. There is no evidence for deep venous thrombosis. Impression: No evidence for deep venous thrombosis. Signed by Fletcher Serna MD 07/25/2016 04:33 P
[2016-07-25 16:48] LABS: BASO % 0.4 % (0.0-1.0); EOS # 0.1 K/mm3 (0.0-0.50); EOS % 1.7 % (0.0-3.0); LARGE UNSTAINED CELL # 0.1 K/mm3 (0.0-0.4); LARGE UNSTAINED CELL % 1.1 % (0.0-4.0); LYMPH % 31.9 % (24.0-44.0); MEAN CORPUSCULAR HGB CONC 33.3 g/dl (32.0-36.5); MEAN CORPUSCULAR VOLUME 90.1 fl (80.0-96.0); MONO # 0.3 K/mm3 (0.0-0.8); MONO % 5.5 % (0.0-5.0); NEUTROPHILS # 3.7 K/mm3 (1.8-7.7); NEUTROPHILS % 59.5 % (36.0-66.0); PLATELET COUNT, AUTOMATED 258 k/mm3 (150-450); RED CELL DISTRIBUTION WIDTH 13.4 % (11.5-14.5); WHITE BLOOD COUNT 6.2 K/mm3 (4.0-10.0)
[2016-07-25 16:53] LABS: INR 1.01
[2016-07-25 17:14] LABS: ANION GAP 6 MEQ/L (8-16); BLOOD UREA NITROGEN 13 MG/DL (7-18); CALCIUM LEVEL 8.7 MG/DL (8.5-10.1); CARBON DIOXIDE LEVEL 30 MEQ/L (21-32); CHLORIDE LEVEL 106 MEQ/L (98-107); CREATININE FOR GFR 1.42 MG/DL (0.55-1.02); GLOMERULAR FILTRATION RATE 41.5 (>51); GLUCOSE, FASTING 83 MG/DL (70-105); POTASSIUM SERUM 3.8 MEQ/L (3.5-5.1); SODIUM LEVEL 142 MEQ/L (136-145)
[2016-07-25] MEDS ORDERED: NORCOTAB PO (17:29)
[2016-07-25 17:43] VITALS: BP 144/108
--- NOTE | 2016-07-26 10:16 | ECGEPIP ---
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
== END 2016-07-25 17:46 | disposition home or self-care (01) ==
LOC: M ED 16:23
DX: G56.02 Carpal tunnel syndrome, left upper limb (principal); M79.602 Pain in left arm; D68.9 Coagulation defect, unspecified; I48.91 Unspecified atrial fibrillation; G43.909 Migraine, unspecified, not intractable, without status migrainosus; Z87.442 Personal history of urinary calculi; Z86.718 Personal history of other venous thrombosis and embolism; Z79.01 Long term (current) use of anticoagulants; Z79.899 Other long term (current) drug therapy; Z88.8 Allergy status to other drugs, medicaments and biological substances; Z91.013 Allergy to seafood

== ENCOUNTER → 2016-08-04 | Outpatient (CLI) | payer OTHER ==
[~2016-08-04] MED LIST changes: +BUPIVACAINE HCL 0.25% 10 ML VIAL As Ordered ONE; +BUPIVACAINE HCL 0.25% 30 ML VIAL As Ordered ONE; +LISI10TA4 PO; +NORCOTAB PO; +TIZA4CAP3 PO; +TRIAMCINOLONE ACETONIDE SUSP 40 MG/ML VIAL (J3301) As Ordered ONE; +VIST25CA PO; +diazePAM 5 MG TAB As Ordered ONE; +oxyCODONE 5MG TAB As Ordered ONE
--- NOTE | 2016-08-15 00:34 | ECWPNPC ---
PATIENT NAME: SMITH VIVEROS : 1965 GENDER: FEMALE VISIT DATE: 08/04/2016 DISCHARGE DATE: 08/04/16 1029 VISIT LOCKED DATE TIME: PHYSICIAN: ARELIS MILLER RESOURCE: ARELIS MILLER REASON FOR APPOINTMENT 1. TPI HISTORY OF PRESENT ILLNESS HISTORY OF PRESENT ILLNESS: PAIN THE PATIENT DESCRIBES THE PAIN... FALL RISK SCREENING: SCREENING :TWO OR MORE FALLS WITHOUT INJURY IN THE PAST YEAR CURRENT MEDICATIONS TAKING BLOOD PRESSURE CUFF - MISCELLANEOUS DIRECTED _ DAILY TAKING ELIQUIS 5 MG TABLET 1 TAB(S) ORALLY TWICE DAILY, NOTES: 0600 TAKING PAROXETINE HCL 30 MG TABLET 1 TABLET IN THE MORNING ORALLY ONCE A DAY, NOTES: 6AM TAKING ATORVASTATIN CALCIUM 40 MG TABLET 1 TABLET ORALLY ONCE A DAY, NOTES: 6AM TAKING VISTARIL 25 MG CAPSULE 1 CAPSULE NEEDED ORALLY TWICE DAILY NEEDED, NOTES: 08/03/16@2000 TAKING PRILOSEC 20 MG CAPSULE DELAYED RELEASE 1 CAPSULE ORALLY TWICE DAILY, NOTES: 6AM TAKING LISINOPRIL 10 MG TABLET DIRECTED ORALLY DAILY, NOTES: 0600 TAKING TIZANIDINE HCL 4 MG TABLET 1 TABLET NEEDED ORALLY EVERY 8 HRS, NOTES: 08/03/16@0800 NOT-TAKING GABAPENTIN 100 MG CAPSULE 1 TABLET ORALLY THREE TIMES DAILY, NOTES: 05/18 6AM NOT-TAKING TRAMADOL HCL 50 MG TABLET 1-2 TABLET NEEDED ORALLY EVERY 8 HRS MDD=3 NOT-TAKING TRAMADOL HCL 50 MG TABLET 1 TABLET NEEDED ORALLY TWICE DAILY NEEDED, NOTES: 2016 MEDICATION LIST REVIEWED AND RECONCILED WITH THE PATIENT PAST MEDICAL HISTORY FIBROMYALGIA DX 4 YEARS AGO, BEING FOLLOWED AT PAIN CLINIC MIGRAINE HEADACHE STRESS INCONTINENCE DEPRESSION HYPERLIPIDEMIA VITAMIN D DEFICIENCY AFIB GERD INTERMITTENT A FIB ALLERGIES ZIPSOR: ALLERGY FLEXERIL: AGGITATION: ALLERGY LYRICA: ANAPHYLAXIS: ALLERGY DICLOFENAC POTASSIUM: AGGITATION (ZIPSOR): ALLERGY BACTRIM: NAUSEA/VOMITING: ALLERGY SHELL FISH: SWELLS, HIVES: ALLERGY CYMBALTA: NAUSEA/VOMITING: SIDE EFFECTS AMITRIPTYLINE: AGGITATION: SIDE EFFECTS GABAPENTIN: HALLUCINATIONS: SIDE EFFECTS TRAMADOL HCL: HALLUCINATIONS: SIDE EFFECTS TIZANIDINE HCL: HIVES: ALLERGY REVIEW OF SYSTEMS CONSTITUTIONAL: ANY CHANGE IN YOUR MEDICAL CONDITION? NO . CHILLS NO . FEVER NO . INFECTION: DO YOU HAVE NEW INFECTIONS? NO . DO YOU HAVE HISTORY OF MRSA? NO . MUSCULOSKELETAL: ANY NEW PATTERNS OF PAIN OR NUMBNESS? NO . GASTROENTEROLOGY: ANY NEW CHANGE IN BOWEL CONTROL? NO . GENITOURINARY: ANY NEW CHANGE IN BLADDER CONTROL? NO . IS THERE A CHANCE YOU COULD BE ? NO . HEMATOLOGY/LYMPH: DO YOU TAKE ANY BLOOD THINNERS? (FOR EXAMPLE- COUMADIN, PLAVIX, AGGRENOX, PLATEL, PRADAXA, OR XARELTO) YES . WHEN WAS YOUR LAST DOSE? DATE: TIME: 08/04/16@0600 . NEUROLOGY: HAVE YOU FALLEN IN THE PAST 6 MONTHS? YES . ANY NEW EXTREMITY NUMBNESS OR WEAKNESS? NO . CARDIOLOGY: DO YOU HAVE A PACEMAKER OR DEFIBRILLATOR? NO . RESPIRATORY: HAVE YOU BEEN SICK IN THE PAST WEEK? NO . FEVER NO . FLU LIKE SYMPTOMS? NO . COUGH NO . INTEGUMENTARY: DO YOU HAVE ANY RASHES OR OPEN SORES? NO . ALLERGIC/IMMUNO: ARE YOU ALLERGIC TO SHELLFISH OR IV DYE? YES . ANY NEW ALLERGIES? NO . PSYCHIATRIC: DO YOU HAVE THOUGHTS OF HURTING YOURSELF OR SOMEONE ELSE? NO . ARE YOU ABUSED, NEGLECTED, OR IN AN UNSAFE ENVIRONMENT? NO . ENDOCRINOLOGY: ARE YOU DIABETIC? NO . OTHER: DO YOU NEED ANY PRESCRIPTIONS? NO . IF YES, PLEASE LIST: ____ . ANY NEW PROBLEMS WITH YOUR MEDICATIONS? NO . WHEN DID YOU LAST EAT? ____08/03/16 . WHEN DID YOU LAST DRINK? ____0600 . WHAT DID YOU LAST DRINK? ____WATER . NAME OF PERSON DRIVING YOU HOME? ____ANN FISHER . DO YOU HAVE ANY OTHER QUESTIONS OR CONCERNS NO . REVIEWED BY: PROVIDER: . VITAL SIGNS WT 254 LBS, HT 61 IN, BMI 47.99 INDEX, BP 143/97 MM HG, HR 96 /MIN, RR 18 /MIN, TEMP 97.2 F, OXYGEN SAT % 96%, NA INITIALS SC 08:36, REVIEWED BY: VD. ASSESSMENTS MYALGIA - M79.1 (PRIMARY) TREATMENT OTHERS START KETOROLAC TROMETHAMINE TABLET, 10 MG, 1 TABLET WITH FOOD OR MILK NEEDED, ORALLY, EVERY 6 HRS PRN FOR PAIN MDD2, 5 DAY(S), 10, REFILLS 0 PROCEDURES PN TRIGGER POINT INJECTION WITH STEROIDS PRE PROCEDURE DIAGNOSIS 1. MYALGIA 2. PAIN AT BILATERAL NECK AREA AND BILATERAL SHOULDER AREA POST PROCEDURE DIAGNOSIS 1. MYALGIA 2. PAIN AT BILATERAL NECK AREA AND BILATERAL SHOULDER AREA PROCEDURE TRIGGER POINT INJECTION AT BILATERAL NECK AREA AND BILATERAL SHOULDER AREA SURGEON DR. ARELIS MILLER SOCIAL SERVICES TECHNICIAN NONE ANESTHESIA LOCAL PRE PROCEDURE NOTE THE PATIENT HAS A HISTORY OF CHRONIC PAIN AT THE RIGHT AND LEFT NECK AREA AND RIGHT AND LEFT SHOULDER AREA. I EVALUATE THE PATIENT AND REVIEWED THE CHART. THERE IS EVIDENCE OF BANDS OF TISSUE WITH RESTRICTION OF MOVEMENT AND PRESENCE OF TRIGGER POINT AT THE AFFECTED AREA. I WENT OVER THE RISKS, ALTERNATIVES, AND BENEFITS ASSOCIATED WITH THIS PROCEDURE. THE PATIENT WOULD LIKE TO PROCEED AND GIVE CONSENT TO PERFORMED THE PROCEDURE. THE PATIENT DENIES UNEXPLAINABLE WEIGHT LOSS, FEVER, CHILLS, OR NEW CHANGES IN URINARY OR BOWEL CONTROL DESCRIPTION OF PROCEDURE THE PATIENT WAS BROUGHT TO THE PROCEDURE ROOM AND PLACED IN THE SITTING POSITION. THE AREA WAS CLEANED WITH ALCOHOL. THE PROCEDURE WAS DONE USING ASEPTIC STERILE TECHNIQUE. I CHECKED LATERALITY AND THE LEVEL WHERE THE PROCEDURE WAS GOING TO BE PERFORMED WITH THE PATIENT AND THE SUPPORTING STAFF AT THE MOMENT OF THE TIME OUT IN THE PROCEDURE ROOM. USING A 25-GAUGE NEEDLE, TRIGGER POINTS WERE INJECTED AT THE RIGHT AND LEFT NECK AREA AND RIGHT AND LEFT SHOULDER AREA WITH A TOTAL OF 40 ML OF BUPIVACAINE 0.25% AND KENALOG 40 MG. THERE WAS NO EVIDENCE OF BLOOD, PARESTHESIA OR CEREBROSPINAL FLUID DURING THE PROCEDURE. THE PATIENT WAS SENT TO THE RECOVERY ROOM. THE PATIENT WAS MOVING THE EXTREMITIES AND DOING WELL. THERE WAS NO COMPLICATION DURING THE PROCEDURE POST PROCEDURE NOTE THE PATIENT WILL BE SEEN IN A FOLLOW UP IN THE NEXT FEW WEEKS. INSTRUCTIONS WERE GIVEN, QUESTIONS WERE ANSWERED, AND THE PATIENT EXPRESSED UNDERSTANDING AND AGREES WITH THE PLAN. I, ANKITA VALENZUELA, DOCUMENTED THE ABOVE INFORMATION ACTING A SCRIBE FOR DR. MILLER. I, DR. MILLER, HAVE REVIEWED THE ABOVE DOCUMENT, SCRIBED BY ANKITA VALENZUELA, AND I VERIFY THAT IT IS ACCURATE PROCEDURE CODES 93912 INJECT TRIGGER POINTS 3/> DISPOSITION & COMMUNICATION FOLLOW UP 3 WEEKS ELECTRONICALLY SIGNED BY ARELIS MILLER MD ON 08/14/2016 AT 10:04 PM EDT DISCLAIMER : THIS IS A VISIT SUMMARY EXTRACTED FROM THE [employer] CHART. IT IS NOT A COPY OF THE [employer] PROGRESS NOTE. [facility]
== END | disposition home or self-care (01) ==
LOC: M PAIN 08:30
PROVIDERS: ATTEND Anesthesiology
DX: G89.29 Other chronic pain (principal); M79.1 Myalgia; G43.909 Migraine, unspecified, not intractable, without status migrainosus; F33.9 Major depressive disorder, recurrent, unspecified; E78.5 Hyperlipidemia, unspecified; E55.9 Vitamin D deficiency, unspecified; I48.91 Unspecified atrial fibrillation; K21.9 Gastro-esophageal reflux disease without esophagitis; N39.3 Stress incontinence (female) (male); Z79.899 Other long term (current) drug therapy; Z79.01 Long term (current) use of anticoagulants; Z88.8 Allergy status to other drugs, medicaments and biological substances

== ENCOUNTER → 2016-08-22 | Outpatient (CLI) | payer OTHER ==
[~2016-08-22] MED LIST changes: +ATOR40TA75 PO; -BUPIVACAINE HCL 0.25% 10 ML VIAL As Ordered ONE; -BUPIVACAINE HCL 0.25% 30 ML VIAL As Ordered ONE; +CARA1TAB6 PO; +OMEP20CA3 PO; +OXYC-141 PO; -OXYC-299 PO; +PANT40TA2 PO; +PAXI30TA11 PO; +PERC5TAB12 PO; -PERC5TAB6 PO; +PROT1TAB2 PO; +SUCR1TA PO; -TRIAMCINOLONE ACETONIDE SUSP 40 MG/ML VIAL (J3301) As Ordered ONE; -diazePAM 5 MG TAB As Ordered ONE; -oxyCODONE 5MG TAB As Ordered ONE
--- NOTE | 2016-09-08 23:58 | ECWPNPC ---
PATIENT NAME: SMITH VIVEROS : 1965 GENDER: FEMALE VISIT DATE: 08/22/2016 DISCHARGE DATE: 08/22/16 1052 VISIT LOCKED DATE TIME: PHYSICIAN: ROCÍO GALDAMEZ RESOURCE: ROCÍO GALDAMEZ REASON FOR APPOINTMENT 1. NECK/SHOULDERS HISTORY OF PRESENT ILLNESS HISTORY OF PRESENT ILLNESS: PAIN THE PATIENT DESCRIBES THE PAIN... FALL RISK SCREENING: SCREENING :NO FALLS IN THE PAST YEAR TODAY'S VISIT: NOTES: IS S/P TPI WITH STEROIDS COMPLETED ON 08/05/15 TO BILATERAL NECK AND SHOULDER AREAS. NOTES PAIN RELIEF AT SHOULDER BUT MIN RELIEF AT NECK. HAS MASSIVE HEADACHE DUE TO THE ALCOHOL FROM TRIGGER POINT PREP BEFORE THE INJECTION. . IS NOTING THE MOST PAIN AT LEFT SHOULDER. REPORTS HAD VASO-VAGAL REACTION AND WILL NOW BE REQUIRING IV FLUIDS WITH INJECTION . CURRENT MEDICATIONS TAKING BLOOD PRESSURE CUFF - MISCELLANEOUS DIRECTED _ DAILY TAKING ELIQUIS 5 MG TABLET 1 TAB(S) ORALLY TWICE DAILY TAKING PAROXETINE HCL 30 MG TABLET 1 TABLET IN THE MORNING ORALLY ONCE A DAY TAKING ATORVASTATIN CALCIUM 40 MG TABLET 1 TABLET ORALLY ONCE A DAY TAKING VISTARIL 25 MG CAPSULE 1 CAPSULE NEEDED ORALLY TWICE DAILY NEEDED TAKING PRILOSEC 20 MG CAPSULE DELAYED RELEASE 1 CAPSULE ORALLY TWICE DAILY TAKING LISINOPRIL 10 MG TABLET DIRECTED ORALLY DAILY NOT-TAKING TIZANIDINE HCL 4 MG TABLET 1 TABLET NEEDED ORALLY EVERY 8 HRS NOT-TAKING KETOROLAC TROMETHAMINE 10 MG TABLET 1 TABLET WITH FOOD OR MILK NEEDED ORALLY EVERY 6 HRS PRN FOR PAIN MDD2 NOT-TAKING GABAPENTIN 100 MG CAPSULE 1 TABLET ORALLY THREE TIMES DAILY, NOTES: 05/18 6AM NOT-TAKING TRAMADOL HCL 50 MG TABLET 1-2 TABLET NEEDED ORALLY EVERY 8 HRS MDD=3 NOT-TAKING TRAMADOL HCL 50 MG TABLET 1 TABLET NEEDED ORALLY TWICE DAILY NEEDED, NOTES: 2016 MEDICATION LIST REVIEWED AND RECONCILED WITH THE PATIENT PAST MEDICAL HISTORY FIBROMYALGIA DX 4 YEARS AGO, BEING FOLLOWED AT PAIN CLINIC MIGRAINE HEADACHE STRESS INCONTINENCE DEPRESSION HYPERLIPIDEMIA VITAMIN D DEFICIENCY AFIB GERD INTERMITTENT A FIB ALLERGIES ZIPSOR: ALLERGY FLEXERIL: AGGITATION: ALLERGY LYRICA: ANAPHYLAXIS: ALLERGY DICLOFENAC POTASSIUM: AGGITATION (ZIPSOR): ALLERGY BACTRIM: NAUSEA/VOMITING: ALLERGY SHELL FISH: SWELLS, HIVES: ALLERGY CYMBALTA: NAUSEA/VOMITING: SIDE EFFECTS AMITRIPTYLINE: AGGITATION: SIDE EFFECTS GABAPENTIN: HALLUCINATIONS: SIDE EFFECTS TRAMADOL HCL: HALLUCINATIONS: SIDE EFFECTS TIZANIDINE HCL: HIVES: ALLERGY KETOROLAC TROMETHAMINE: STOMACH PAIN: ALLERGY REVIEW OF SYSTEMS REVIEWED BY: PROVIDER: ROCÍO DUTTA . CONSTITUTIONAL: ANY CHANGE IN YOUR MEDICAL CONDITION? NO . CHILLS NO . FEVER NO . INFECTION: DO YOU HAVE NEW INFECTIONS? NO . DO YOU HAVE HISTORY OF MRSA? NO . MUSCULOSKELETAL: ANY NEW PATTERNS OF PAIN OR NUMBNESS? YES . GASTROENTEROLOGY: ANY NEW CHANGE IN BOWEL CONTROL? NO . GENITOURINARY: ANY NEW CHANGE IN BLADDER CONTROL? NO . IS THERE A CHANCE YOU COULD BE ? NO . HEMATOLOGY/LYMPH: DO YOU TAKE ANY BLOOD THINNERS? (FOR EXAMPLE- COUMADIN, PLAVIX, AGGRENOX, PLATEL, PRADAXA, OR XARELTO) YES, ELIQUIS . WHEN WAS YOUR LAST DOSE? DATE:08/22/16 TIME: 0600 . NEUROLOGY: HAVE YOU FALLEN IN THE PAST 6 MONTHS? YES . ANY NEW EXTREMITY NUMBNESS OR WEAKNESS? NO . CARDIOLOGY: DO YOU HAVE A PACEMAKER OR DEFIBRILLATOR? NO . RESPIRATORY: HAVE YOU BEEN SICK IN THE PAST WEEK? NO . FEVER NO . FLU LIKE SYMPTOMS? NO . COUGH NO . INTEGUMENTARY: DO YOU HAVE ANY RASHES OR OPEN SORES? NO . ALLERGIC/IMMUNO: ARE YOU ALLERGIC TO SHELLFISH OR IV DYE? YES, SHELLFISH . ANY NEW ALLERGIES? YES, TORADOL AND TIZANIDINE . PSYCHIATRIC: DO YOU HAVE THOUGHTS OF HURTING YOURSELF OR SOMEONE ELSE? NO . ARE YOU ABUSED, NEGLECTED, OR IN AN UNSAFE ENVIRONMENT? NO . ENDOCRINOLOGY: ARE YOU DIABETIC? NO . OTHER: DO YOU NEED ANY PRESCRIPTIONS? NO . IF YES, PLEASE LIST: ____ . ANY NEW PROBLEMS WITH YOUR MEDICATIONS? NO . WHEN DID YOU LAST EAT? ____ . WHEN DID YOU LAST DRINK? ____ . WHAT DID YOU LAST DRINK? ____ . NAME OF PERSON DRIVING YOU HOME? ____ . DO YOU HAVE ANY OTHER QUESTIONS OR CONCERNS NO . VITAL SIGNS WT 254 LBS, HT 61 IN, BMI 47.99 INDEX, BP 146/71 MM HG, HR 96 /MIN, RR 18 /MIN, TEMP 98.2 F, OXYGEN SAT % 96%, NA INITIALS SC 10:05, REVIEWED BY: LOUANN. EXAMINATION GENERAL EXAMINATION: PSYCHALERT , ORIENTED X 3 , APPROPRIATE MOOD AND AFFECT TALKACTIVE. LUNGS:SCATTERED WHEEZES BILATERALLY. . HEART:HEART RATE REGULAR. MUSCULOSKELETAL:TRIGGER POINTS:, ELICITED WITH PALPATION OVER LUMBAR PARAVERTEBRAL MUSCLES AND INTO THE SACRUM. RESTRICTION OF ROM IN THIS AREA, TRIGGER POINTS SO NOTED WITH PALPATION OVER MID THORACIC MUSCLES WITH RESTRICITON OF RESPIRATORY EXCURCION NOTED. MUSCLE STRENGTH 5 OVER 5 DISTALLY AND PROXIMALLY IN THE BILATERAL UPPER AND LOWER EXTREMITIES. SOME TENDERNESS WITH PALPATION OVER THE CERVICAL PARASPINOUS MUSCLES. GOOD SHOULDER SHRUG TODAY.. ASSESSMENTS MYALGIA - M79.1 (PRIMARY) DEGENERATIVE JOINT DISEASE INVOLVING MULTIPLE JOINTS ON BOTH SIDES OF BODY - M15.9 TREATMENT MYALGIA START LIDOCAINE CREAM, 4 %, 1 APPLICATION TO AFFECTED AREA NEEDED, EXTERNALLY, APPLY SMALL AMOUNTS THREE TIMES A DAY TO PAINFUL AREAS OF SHOULDERS AND NECK, 30 DAY(S), 3 TUBE, REFILLS 1 TRIGGER POINT 3 + ROCÍO LIRA 08/22/2016 10:32:42 AM > NECK/SHOULDERS/ NO STEROIDS NOTES: WALK DAILY. DO NECK AND SHOULDER EXERCISES. WATCH CALORIE INTAKE AND CUT BACK ON SODAINFORMATION GIVEN ABOUT LIDOCAINE CREAM. CLINICAL NOTES: REVIEWED WITH PATIENT THAT WE WILL NOT BE USING OPIOID MEDICATIONS. PROCEDURE CODES FA211 ESTABILISHED PATIENT [facility] CHARGE DISPOSITION & COMMUNICATION FOLLOW UP AFTER INJECTION (REASON: NECK/BACK PAIN) ELECTRONICALLY SIGNED BY MAXIMILIANO NOEL ON 09/08/2016 AT 09:06 AM EDT DISCLAIMER : THIS IS A VISIT SUMMARY EXTRACTED FROM THE [employer] CHART. IT IS NOT A COPY OF THE [employer] PROGRESS NOTE. RITA
== END | disposition home or self-care (01) ==
LOC: M PAIN 10:00
PROVIDERS: ATTEND Nurse Practitioner Family
DX: G89.29 Other chronic pain (principal); M79.1 Myalgia; M15.9 Polyosteoarthritis, unspecified; F33.9 Major depressive disorder, recurrent, unspecified; E78.5 Hyperlipidemia, unspecified; E55.9 Vitamin D deficiency, unspecified; I48.91 Unspecified atrial fibrillation; K21.9 Gastro-esophageal reflux disease without esophagitis; N39.3 Stress incontinence (female) (male); Z79.899 Other long term (current) drug therapy; Z79.01 Long term (current) use of anticoagulants; Z88.5 Allergy status to narcotic agent; Z88.0 Allergy status to penicillin; Z91.013 Allergy to seafood

== ENCOUNTER → 2016-08-24 | Outpatient (CLI) | payer OTHER ==
[~2016-08-24] MED LIST changes: -ATOR40TA75 PO; +BUPIVACAINE HCL 0.25% 10 ML VIAL As Ordered ONE; +BUPIVACAINE HCL 0.25% 30 ML VIAL As Ordered ONE; -CARA1TAB6 PO; -OMEP20CA3 PO; -OXYC-141 PO; +OXYC-299 PO; -PANT40TA2 PO; -PAXI30TA11 PO; -PERC5TAB12 PO; +PERC5TAB6 PO; -PROT1TAB2 PO; -SUCR1TA PO; +diazePAM 5 MG TAB As Ordered ONE; +oxyCODONE 5MG TAB As Ordered ONE
== END | disposition home or self-care (01) ==
LOC: M PAIN 13:00
PROVIDERS: ATTEND Anesthesiology
DX: G89.29 Other chronic pain (principal); M79.1 Myalgia; G43.909 Migraine, unspecified, not intractable, without status migrainosus; F33.9 Major depressive disorder, recurrent, unspecified; E78.5 Hyperlipidemia, unspecified; E55.9 Vitamin D deficiency, unspecified; I48.91 Unspecified atrial fibrillation; K21.9 Gastro-esophageal reflux disease without esophagitis; N39.3 Stress incontinence (female) (male); Z86.14 Personal history of Methicillin resistant Staphylococcus aureus infection; Z79.899 Other long term (current) drug therapy; Z79.01 Long term (current) use of anticoagulants; Z88.5 Allergy status to narcotic agent; Z88.8 Allergy status to other drugs, medicaments and biological substances; Z91.013 Allergy to seafood

== ENCOUNTER → 2016-09-14 | Outpatient (CLI) | payer OTHER ==
[~2016-09-14] MED LIST changes: +ATOR40TA75 PO; -BUPIVACAINE HCL 0.25% 10 ML VIAL As Ordered ONE; -BUPIVACAINE HCL 0.25% 30 ML VIAL As Ordered ONE; +CARA1TAB6 PO; +OMEP20CA3 PO; +OXYC-141 PO; -OXYC-299 PO; +PANT40TA2 PO; +PAXI30TA11 PO; +PERC5TAB12 PO; -PERC5TAB6 PO; +PERCOCET PO; +PROT1TAB2 PO; +SUCR1TA PO; -diazePAM 5 MG TAB As Ordered ONE; -oxyCODONE 5MG TAB As Ordered ONE
--- NOTE | 2016-09-29 00:08 | ECWPNPC ---
PATIENT NAME: SMITH VIVEROS : 1965 GENDER: FEMALE VISIT DATE: 09/14/2016 DISCHARGE DATE: 09/14/16 0945 VISIT LOCKED DATE TIME: PHYSICIAN: ROCÍO GALDAMEZ RESOURCE: ROCÍO GALDMAEZ REASON FOR APPOINTMENT 1. POST PROCEDURE HISTORY OF PRESENT ILLNESS HISTORY OF PRESENT ILLNESS: PAIN THE PATIENT DESCRIBES THE PAIN... FALL RISK SCREENING: SCREENING :NO FALLS IN THE PAST YEAR TODAY'S VISIT: NOTES: S/P TPI TO NECK AND SHOULDER AREA WITHOUT STEROIDS COMPLETED ON 08/24/16. NOTES IMPROVEMENT IN MOVEMENT OF THE HEAD/NECK AND DECREASED TIGHTNESS ACROSS THE BASE OF THE NECK. STILL WITH PAIN OVER THE C7 PROMINENCE. . CURRENT MEDICATIONS TAKING BLOOD PRESSURE CUFF - MISCELLANEOUS DIRECTED _ DAILY TAKING ELIQUIS 5 MG TABLET 1 TAB(S) ORALLY TWICE DAILY TAKING PAROXETINE HCL 30 MG TABLET 1 TABLET IN THE MORNING ORALLY ONCE A DAY TAKING ATORVASTATIN CALCIUM 40 MG TABLET 1 TABLET ORALLY ONCE A DAY TAKING PRILOSEC 20 MG CAPSULE DELAYED RELEASE 1 CAPSULE ORALLY TWICE DAILY TAKING LISINOPRIL 10 MG TABLET DIRECTED ORALLY DAILY TAKING LIDOCAINE 4 % CREAM 1 APPLICATION TO AFFECTED AREA NEEDED EXTERNALLY APPLY SMALL AMOUNTS THREE TIMES A DAY TO PAINFUL AREAS OF SHOULDERS AND NECK NOT-TAKING VISTARIL 25 MG CAPSULE 1 CAPSULE NEEDED ORALLY TWICE DAILY NEEDED NOT-TAKING TIZANIDINE HCL 4 MG TABLET 1 TABLET NEEDED ORALLY EVERY 8 HRS NOT-TAKING KETOROLAC TROMETHAMINE 10 MG TABLET 1 TABLET WITH FOOD OR MILK NEEDED ORALLY EVERY 6 HRS PRN FOR PAIN MDD2 NOT-TAKING GABAPENTIN 100 MG CAPSULE 1 TABLET ORALLY THREE TIMES DAILY, NOTES: 05/18 6AM NOT-TAKING TRAMADOL HCL 50 MG TABLET 1-2 TABLET NEEDED ORALLY EVERY 8 HRS MDD=3 NOT-TAKING TRAMADOL HCL 50 MG TABLET 1 TABLET NEEDED ORALLY TWICE DAILY NEEDED, NOTES: 2016 MEDICATION LIST REVIEWED AND RECONCILED WITH THE PATIENT PAST MEDICAL HISTORY FIBROMYALGIA DX 4 YEARS AGO, BEING FOLLOWED AT PAIN CLINIC MIGRAINE HEADACHE STRESS INCONTINENCE DEPRESSION HYPERLIPIDEMIA VITAMIN D DEFICIENCY AFIB GERD INTERMITTENT A FIB ALLERGIES ZIPSOR: ALLERGY FLEXERIL: AGGITATION: ALLERGY LYRICA: ANAPHYLAXIS: ALLERGY DICLOFENAC POTASSIUM: AGGITATION (ZIPSOR): ALLERGY BACTRIM: NAUSEA/VOMITING: ALLERGY SHELL FISH: SWELLS, HIVES: ALLERGY CYMBALTA: NAUSEA/VOMITING: SIDE EFFECTS AMITRIPTYLINE: AGGITATION: SIDE EFFECTS GABAPENTIN: HALLUCINATIONS: SIDE EFFECTS TRAMADOL HCL: HALLUCINATIONS: SIDE EFFECTS TIZANIDINE HCL: HIVES: ALLERGY KETOROLAC TROMETHAMINE: STOMACH PAIN: ALLERGY SOCIAL HISTORY GENERAL: TOBACCO USE ARE YOU A:FORMER SMOKER HOW LONG HAS IT BEEN SINCE YOU LAST SMOKED?> 10 YEARS BMI CARE GOAL FOLLOW-UP ABOVE NORMAL BMI FOLLOW-UPLIFESTYLE EDUCATION REGARDING DIET ALCOHOL SCREENING DID YOU HAVE A DRINK CONTAINING ALCOHOL IN THE PAST YEAR?NO POINTS0 INTERPRETATIONNEGATIVE RECREATIONAL DRUG USE DRUG USE?NO CAFFEINE CAFFEINE USE?YES HIV / HEP-C SCREENING HIV TEST OFFERED TO PATIENT:NO HEP-C TEST OFFERED TO PATIENT:NO OCCUPATION: UNEMPLOYED. DIET: REGULAR. EXERCISE: NO REGULAR EXERCISE. MARITAL STATUS: .. OTHERS AT HOME: [id number], BROTHER, NEPHEW AND BOYFRIEND. PETS: 8-DOGS, 2-CATS. 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 LANGUAGE KOREAN. LEARNING BARRIERS / SPECIAL NEEDS CHANGE FROM LAST VISIT?NO BARRIERS TO LEARNING?NO HEARING IMPAIRED?NO VISION IMPAIRED?YES COGNITIVELY IMPAIRED?NO :CORRECTIVE LENSES READINESS TO LEARN?YES LEARNING PREFERENCES?NO LEARNING CAPABILITIES PRESENT?YES EMOTIONAL BARRIERS?NO SPECIAL DEVICES?NO NEW PATIENT PAIN DIARY TODAY'S VISIT NOTES, FROM 0-10, WHAT LEVEL IS YOUR PAIN TODAY? 0. PAIN CLINIC PFS, CLERGY, PUBLIC HEALTH REFERRALS PFS REFERRAL NEEDED?NO CLERGY REFERRAL NEEDED?NO PUBLIC HEALTH REFERRAL NEEDED?NO HAS THE PATIENT BEEN EDUCATED REGARDING HIS/HER PLAN OF CARE?YES HAS THE PATIENT BEEN EDUCATED REGARDING PAIN, THE RISK FOR PAIN, THE IMPORTANCE OF EFFECTIVE PAIN MANAGEMENT, AND THE PAIN ASSESSMENT PROCESS?YES REVIEW OF SYSTEMS REVIEWED BY: PROVIDER: ROCÍO DUTTA . CONSTITUTIONAL: ANY CHANGE IN YOUR MEDICAL CONDITION? NO . CHILLS NO . FEVER NO . INFECTION: DO YOU HAVE NEW INFECTIONS? NO . DO YOU HAVE HISTORY OF MRSA? NO . MUSCULOSKELETAL: ANY NEW PATTERNS OF PAIN OR NUMBNESS? YES, PAIN DOWN RIGHT SIDE FROM HIP TO FOOT . GASTROENTEROLOGY: ANY NEW CHANGE IN BOWEL CONTROL? NO . GENITOURINARY: ANY NEW CHANGE IN BLADDER CONTROL? NO . IS THERE A CHANCE YOU COULD BE ? NO . HEMATOLOGY/LYMPH: DO YOU TAKE ANY BLOOD THINNERS? (FOR EXAMPLE- COUMADIN, PLAVIX, AGGRENOX, PLATEL, PRADAXA, OR XARELTO) YES, ELIQUIS . WHEN WAS YOUR LAST DOSE? DATE:09/14/16 TIME: 0600 . NEUROLOGY: HAVE YOU FALLEN IN THE PAST 6 MONTHS? YES . ANY NEW EXTREMITY NUMBNESS OR WEAKNESS? NO . CARDIOLOGY: DO YOU HAVE A PACEMAKER OR DEFIBRILLATOR? NO . RESPIRATORY: HAVE YOU BEEN SICK IN THE PAST WEEK? NO . FEVER NO . FLU LIKE SYMPTOMS? NO . COUGH NO . INTEGUMENTARY: DO YOU HAVE ANY RASHES OR OPEN SORES? NO . ALLERGIC/IMMUNO: ARE YOU ALLERGIC TO SHELLFISH OR IV DYE? YES . ANY NEW ALLERGIES? NO . PSYCHIATRIC: DO YOU HAVE THOUGHTS OF HURTING YOURSELF OR SOMEONE ELSE? NO . ARE YOU ABUSED, NEGLECTED, OR IN AN UNSAFE ENVIRONMENT? NO . ENDOCRINOLOGY: ARE YOU DIABETIC? NO . OTHER: DO YOU NEED ANY PRESCRIPTIONS? NO . IF YES, PLEASE LIST: ____ . ANY NEW PROBLEMS WITH YOUR MEDICATIONS? NO . WHEN DID YOU LAST EAT? ____ . WHEN DID YOU LAST DRINK? ____ . WHAT DID YOU LAST DRINK? ____ . NAME OF PERSON DRIVING YOU HOME? ____ . DO YOU HAVE ANY OTHER QUESTIONS OR CONCERNS NO . VITAL SIGNS WT 261.4 LBS, HT 61 IN, BMI 49.39 INDEX, BP 144/72 MM HG, HR 77 /MIN, RR 18 /MIN, TEMP 98.2 F, OXYGEN SAT % 98%, REVIEWED BY: LOUANN (DONE AT 0910). EXAMINATION GENERAL EXAMINATION: PSYCHALERT , ORIENTED X 3 , APPROPRIATE MOOD AND AFFECT TALKACTIVE. LUNGS:SCATTERED WHEEZES BILATERALLY. . HEART:HEART RATE REGULAR. MUSCULOSKELETAL:TRIGGER POINTS:, ELICITED WITH PALPATION OVER LUMBAR PARAVERTEBRAL MUSCLES AND INTO THE SACRUM. RESTRICTION OF ROM IN THIS AREA, TRIGGER POINTS SO NOTED WITH PALPATION OVER MID THORACIC MUSCLES WITH RESTRICITON OF RESPIRATORY EXCURCION NOTED. MUSCLE STRENGTH 5 OVER 5 DISTALLY AND PROXIMALLY IN THE BILATERAL UPPER AND LOWER EXTREMITIES. SOME TENDERNESS WITH PALPATION OVER THE CERVICAL PARASPINOUS MUSCLES. GOOD SHOULDER SHRUG TODAY.. ASSESSMENTS MYALGIA - M79.1 (PRIMARY) DEGENERATIVE JOINT DISEASE INVOLVING MULTIPLE JOINTS ON BOTH SIDES OF BODY - M15.9 TREATMENT MYALGIA REFILL VISTARIL CAPSULE, 25 MG, 1 CAPSULE NEEDED, ORALLY, TWICE DAILY NEEDED, 30 DAY(S), 60, REFILLS 2 TRIGGER POINT 3 + SORAYAROCÍO Zamudio 09/14/2016 9:31:36 AM > NECK ARE - WITH STEROIDS NOTES: CONTINUE EXERCISES AND STETCHES, ICE AND HEAT NEEDED. PREVENTIVE MEDICINE PAIN CLINIC TEACHING: PROCEDURE TEACHING PRE-PROCEDURE TEACHING DONE. PATIENT VERBALIZES UNDERSTANDING.. PROCEDURE CODES FA211 ESTABILISHED PATIENT FORMERLY [facility] CHARGE DISPOSITION & COMMUNICATION FOLLOW UP END OF SEPTEMBER (REASON: CHECK AUTH FOR TPI WITH STEROIDS) ELECTRONICALLY SIGNED BY MAXIMILIANO NOEL ON 09/28/2016 AT 07:53 PM EDT DISCLAIMER : THIS IS A VISIT SUMMARY EXTRACTED FROM THE [employer] CHART. IT IS NOT A COPY OF THE [employer] PROGRESS NOTE. RITA
== END | disposition home or self-care (01) ==
LOC: M PAIN 09:00
PROVIDERS: ATTEND Nurse Practitioner Family
DX: G89.29 Other chronic pain (principal); M79.1 Myalgia; M15.9 Polyosteoarthritis, unspecified; G43.909 Migraine, unspecified, not intractable, without status migrainosus; N39.3 Stress incontinence (female) (male); F33.9 Major depressive disorder, recurrent, unspecified; E78.5 Hyperlipidemia, unspecified; E55.9 Vitamin D deficiency, unspecified; I48.91 Unspecified atrial fibrillation; K21.9 Gastro-esophageal reflux disease without esophagitis; Z79.899 Other long term (current) drug therapy; Z79.01 Long term (current) use of anticoagulants; Z91.013 Allergy to seafood; Z88.5 Allergy status to narcotic agent; Z88.8 Allergy status to other drugs, medicaments and biological substances; Z87.891 Personal history of nicotine dependence

== ENCOUNTER → 2016-10-05 | Outpatient (CLI) | payer OTHER ==
[~2016-10-05] MED LIST changes: +BUPIVACAINE HCL 0.25% 10 ML VIAL As Ordered ONE; +BUPIVACAINE HCL 0.25% 30 ML VIAL As Ordered ONE; +TRIAMCINOLONE ACETONIDE SUSP 40 MG/ML VIAL (J3301) As Ordered ONE; +diazePAM 5 MG TAB As Ordered ONE; +oxyCODONE 5MG TAB As Ordered ONE
--- NOTE | 2016-10-23 00:01 | ECWPNPC ---
PATIENT NAME: SMITH VIVEROS : 1965 GENDER: FEMALE VISIT DATE: 10/05/2016 DISCHARGE DATE: 10/05/16 1040 VISIT LOCKED DATE TIME: PHYSICIAN: ARELIS MILLER RESOURCE: ARELIS MILLER REASON FOR APPOINTMENT 1. TPI BILATERAL NECK HISTORY OF PRESENT ILLNESS HISTORY OF PRESENT ILLNESS: PAIN THE PATIENT DESCRIBES THE PAIN... FALL RISK SCREENING: SCREENING :NO FALLS IN THE PAST YEAR CURRENT MEDICATIONS TAKING BLOOD PRESSURE CUFF - MISCELLANEOUS DIRECTED _ DAILY TAKING ELIQUIS 5 MG TABLET 1 TAB(S) ORALLY TWICE DAILY, NOTES: 0600 TAKING PAROXETINE HCL 30 MG TABLET 1 TABLET IN THE MORNING ORALLY ONCE A DAY, NOTES: 10/04/16 TAKING ATORVASTATIN CALCIUM 40 MG TABLET 1 TABLET ORALLY ONCE A DAY, NOTES: 10/04/16 TAKING PRILOSEC 20 MG CAPSULE DELAYED RELEASE 1 CAPSULE ORALLY TWICE DAILY, NOTES: 10/04/16 TAKING LISINOPRIL 10 MG TABLET DIRECTED ORALLY DAILY, NOTES: 10/04/16 TAKING VISTARIL 25 MG CAPSULE 1 CAPSULE NEEDED ORALLY TWICE DAILY NEEDED, NOTES: 10/04/16 NOT-TAKING LIDOCAINE 4 % CREAM 1 APPLICATION TO AFFECTED AREA NEEDED EXTERNALLY APPLY SMALL AMOUNTS THREE TIMES A DAY TO PAINFUL AREAS OF SHOULDERS AND NECK NOT-TAKING TIZANIDINE HCL 4 MG TABLET 1 TABLET NEEDED ORALLY EVERY 8 HRS NOT-TAKING KETOROLAC TROMETHAMINE 10 MG TABLET 1 TABLET WITH FOOD OR MILK NEEDED ORALLY EVERY 6 HRS PRN FOR PAIN MDD2 NOT-TAKING GABAPENTIN 100 MG CAPSULE 1 TABLET ORALLY THREE TIMES DAILY, NOTES: 05/18 6AM NOT-TAKING TRAMADOL HCL 50 MG TABLET 1-2 TABLET NEEDED ORALLY EVERY 8 HRS MDD=3 NOT-TAKING TRAMADOL HCL 50 MG TABLET 1 TABLET NEEDED ORALLY TWICE DAILY NEEDED, NOTES: 2016 MEDICATION LIST REVIEWED AND RECONCILED WITH THE PATIENT PAST MEDICAL HISTORY FIBROMYALGIA DX 4 YEARS AGO, BEING FOLLOWED AT PAIN CLINIC MIGRAINE HEADACHE STRESS INCONTINENCE DEPRESSION HYPERLIPIDEMIA VITAMIN D DEFICIENCY AFIB GERD INTERMITTENT A FIB ALLERGIES ZIPSOR: ALLERGY FLEXERIL: AGGITATION: ALLERGY LYRICA: ANAPHYLAXIS: ALLERGY DICLOFENAC POTASSIUM: AGGITATION (ZIPSOR): ALLERGY BACTRIM: NAUSEA/VOMITING: ALLERGY SHELL FISH: SWELLS, HIVES: ALLERGY CYMBALTA: NAUSEA/VOMITING: SIDE EFFECTS AMITRIPTYLINE: AGGITATION: SIDE EFFECTS GABAPENTIN: HALLUCINATIONS: SIDE EFFECTS TRAMADOL HCL: HALLUCINATIONS: SIDE EFFECTS TIZANIDINE HCL: HIVES: ALLERGY KETOROLAC TROMETHAMINE: STOMACH PAIN: ALLERGY REVIEW OF SYSTEMS REVIEWED BY: PROVIDER: . CONSTITUTIONAL: ANY CHANGE IN YOUR MEDICAL CONDITION? NO . CHILLS NO . FEVER NO . INFECTION: DO YOU HAVE NEW INFECTIONS? NO . DO YOU HAVE HISTORY OF MRSA? NO . MUSCULOSKELETAL: ANY NEW PATTERNS OF PAIN OR NUMBNESS? YES, SHOOTING UP THE BACK OF HEAD . GASTROENTEROLOGY: ANY NEW CHANGE IN BOWEL CONTROL? NO . GENITOURINARY: ANY NEW CHANGE IN BLADDER CONTROL? NO . IS THERE A CHANCE YOU COULD BE ? NO . HEMATOLOGY/LYMPH: DO YOU TAKE ANY BLOOD THINNERS? (FOR EXAMPLE- COUMADIN, PLAVIX, AGGRENOX, PLATEL, PRADAXA, OR XARELTO) NO . WHEN WAS YOUR LAST DOSE? DATE: TIME: 10/05/16@0600 . NEUROLOGY: HAVE YOU FALLEN IN THE PAST 6 MONTHS? YES . ANY NEW EXTREMITY NUMBNESS OR WEAKNESS? NO . CARDIOLOGY: DO YOU HAVE A PACEMAKER OR DEFIBRILLATOR? NO . RESPIRATORY: HAVE YOU BEEN SICK IN THE PAST WEEK? NO . FEVER NO . FLU LIKE SYMPTOMS? NO . COUGH NO . INTEGUMENTARY: DO YOU HAVE ANY RASHES OR OPEN SORES? NO . ALLERGIC/IMMUNO: ARE YOU ALLERGIC TO SHELLFISH OR IV DYE? YES . ANY NEW ALLERGIES? NO . PSYCHIATRIC: DO YOU HAVE THOUGHTS OF HURTING YOURSELF OR SOMEONE ELSE? NO . ARE YOU ABUSED, NEGLECTED, OR IN AN UNSAFE ENVIRONMENT? NO . ENDOCRINOLOGY: ARE YOU DIABETIC? NO . OTHER: DO YOU NEED ANY PRESCRIPTIONS? NO . IF YES, PLEASE LIST: ____ . ANY NEW PROBLEMS WITH YOUR MEDICATIONS? NO . WHEN DID YOU LAST EAT? ____10/04/16 . WHEN DID YOU LAST DRINK? ____0600 . WHAT DID YOU LAST DRINK? ____WATER . NAME OF PERSON DRIVING YOU HOME? ____MEDICAID MEDICAL EDUCATION SPECIALIST . DO YOU HAVE ANY OTHER QUESTIONS OR CONCERNS NO . VITAL SIGNS WT 260 LBS, HT 61 IN, BMI 49.12 INDEX, BP 145/96 MM HG, HR 111 /MIN, RR 18 /MIN, TEMP 97.8 F, OXYGEN SAT % 97%, NA INITIALS TR 0846, REVIEWED BY: VD. ASSESSMENTS MYALGIA - M79.1 (PRIMARY) PROCEDURES PN TRIGGER POINT INJECTION WITH STEROIDS PRE PROCEDURE DIAGNOSIS 1. MYALGIA 2. PAIN AT BILATERAL NECK AREA POST PROCEDURE DIAGNOSIS 1. MYALGIA 2. PAIN AT BILATERAL NECK AREA PROCEDURE TRIGGER POINT INJECTION AT BILATERAL NECK AREA SURGEON DR. ARELIS MILLER MARINE SERVICE STATION ATTENDANT NONE ANESTHESIA LOCAL PRE PROCEDURE NOTE THE PATIENT HAS A HISTORY OF CHRONIC PAIN AT THE RIGHT AND LEFT NECK AREA. I EVALUATE THE PATIENT AND REVIEWED THE CHART. THERE IS EVIDENCE OF BANDS OF TISSUE WITH RESTRICTION OF MOVEMENT AND PRESENCE OF TRIGGER POINT AT THE AFFECTED AREA. I WENT OVER THE RISKS, ALTERNATIVES, AND BENEFITS ASSOCIATED WITH THIS PROCEDURE. THE PATIENT WOULD LIKE TO PROCEED AND GIVE CONSENT TO PERFORMED THE PROCEDURE. THE PATIENT DENIES UNEXPLAINABLE WEIGHT LOSS, FEVER, CHILLS, OR NEW CHANGES IN URINARY OR BOWEL CONTROL DESCRIPTION OF PROCEDURE THE PATIENT WAS BROUGHT TO THE PROCEDURE ROOM AND PLACED IN THE SITTING POSITION. THE AREA WAS CLEANED WITH ALCOHOL. THE PROCEDURE WAS DONE USING ASEPTIC STERILE TECHNIQUE. I CHECKED LATERALITY AND THE LEVEL WHERE THE PROCEDURE WAS GOING TO BE PERFORMED WITH THE PATIENT AND THE SUPPORTING STAFF AT THE MOMENT OF THE TIME OUT IN THE PROCEDURE ROOM. USING A 25-GAUGE NEEDLE, TRIGGER POINTS WERE INJECTED AT THE RIGHT AND LEFT NECK AREA WITH A TOTAL OF 40 ML OF BUPIVACAINE 0.25% AND KENALOG 40 MG. THERE WAS NO EVIDENCE OF BLOOD, PARESTHESIA OR CEREBROSPINAL FLUID DURING THE PROCEDURE. THE PATIENT WAS SENT TO THE RECOVERY ROOM. THE PATIENT WAS MOVING THE EXTREMITIES AND DOING WELL. THERE WAS NO COMPLICATION DURING THE PROCEDURE POST PROCEDURE NOTE THE PATIENT WILL BE SEEN IN A FOLLOW UP IN THE NEXT FEW WEEKS. INSTRUCTIONS WERE GIVEN, QUESTIONS WERE ANSWERED, AND THE PATIENT EXPRESSED UNDERSTANDING AND AGREES WITH THE PLAN. I, ANKITA VALENZUELA, DOCUMENTED THE ABOVE INFORMATION ACTING A SCRIBE FOR DR. MILLER. I, DR. MILLER, HAVE REVIEWED THE ABOVE DOCUMENT, SCRIBED BY ANKITA VALENZUELA, AND I VERIFY THAT IT IS ACCURATE PROCEDURE CODES 38337 INJ TRIGGER POINT 03/13 [facility] [place] COMMUNICATION FOLLOW UP 3 WEEKS ELECTRONICALLY SIGNED BY ARELIS MILLER MD ON 10/22/2016 AT 07:59 AM EDT DISCLAIMER : THIS IS A VISIT SUMMARY EXTRACTED FROM THE [employer] CHART. IT IS NOT A COPY OF THE [employer] PROGRESS NOTE. [facility]
== END ==
LOC: M PAIN 08:30
PROVIDERS: ATTEND Anesthesiology
DX: G89.29 Other chronic pain (principal); M54.2 Cervicalgia; M79.7 Fibromyalgia; G43.909 Migraine, unspecified, not intractable, without status migrainosus; F32.9 Major depressive disorder, single episode, unspecified; E78.5 Hyperlipidemia, unspecified; E55.9 Vitamin D deficiency, unspecified; K21.9 Gastro-esophageal reflux disease without esophagitis; F41.9 Anxiety disorder, unspecified; I10 Essential (primary) hypertension; Z79.01 Long term (current) use of anticoagulants; Z79.899 Other long term (current) drug therapy
CPT/HCPCS: 20552; J3301

== ENCOUNTER 2016-10-20 13:02 | Observation (INO) | payer MEDICAID, OTHER ==
[~2016-10-20] VITALS: Ht 157.5 cm; Wt 116.7 kg
[~2016-10-20 13:02] MED LIST changes: -ATOR40TA75 PO; -CARA1TAB6 PO; -OMEP20CA3 PO; -PANT40TA2 PO; -PAXI30TA11 PO; -PERCOCET PO; -PROT1TAB2 PO; -SUCR1TA PO
[2016-10-20 13:36] LABS: BASO % 0.2 % (0.0-1.0); EOS % 0.8 % (0.0-3.0); LARGE UNSTAINED CELL # 0.1 K/mm3 (0.0-0.4); LARGE UNSTAINED CELL % 1.6 % (0.0-4.0); LYMPH # 1.8 K/mm3 (1.5-4.5); LYMPH % 28.3 % (24.0-44.0); MEAN CORPUSCULAR HEMOGLOBIN 30.4 pg (27.0-33.0); MEAN CORPUSCULAR HGB CONC 34.4 g/dl (32.0-36.5); MEAN CORPUSCULAR VOLUME 88.5 fl (80.0-96.0); MONO # 0.3 K/mm3 (0.0-0.8); MONO % 4.8 % (0.0-5.0); NEUTROPHILS # 4.2 K/mm3 (1.8-7.7); NEUTROPHILS % 64.3 % (36.0-66.0); PLATELET COUNT, AUTOMATED 253 k/mm3 (150-450); RED CELL DISTRIBUTION WIDTH 13.3 % (11.5-14.5); WHITE BLOOD COUNT 6.5 K/mm3 (4.0-10.0)
--- NOTE | 2016-10-20 13:46 | REP ---
Chest one-view HISTORY: Chest pain Comparison: 12/24/2015 The previous day noted left lower lobe granuloma is not seen in the present radiograph secondary to technique. The right lung is clear. The heart is normal in size. The pulmonary vasculature is normal in appearance. Impression: No acute disease. Signed by Reinaldo Torres MD 10/20/2016 01:38 P
[2016-10-20 13:51] LABS: INR 0.94
[2016-10-20 14:03] LABS: ALBUMIN 3.4 GM/DL (3.2-5.2); ALBUMIN/GLOBULIN RATIO 0.92 (1.00-1.93); ALKALINE PHOSPHATASE 135 U/L (45-117); ALT/SGPT 27 U/L (12-78); ANION GAP 6 MEQ/L (8-16); AST/SGOT 19 U/L (15-37); BILIRUBIN,DIRECT < 0.1 MG/DL (0.0-0.2); BILIRUBIN,TOTAL 0.3 MG/DL (0.2-1.0); BLOOD UREA NITROGEN 14 MG/DL (7-18); CALCIUM LEVEL 9.1 MG/DL (8.5-10.1); CARBON DIOXIDE LEVEL 29 MEQ/L (21-32); CHLORIDE LEVEL 106 MEQ/L (98-107); GLOMERULAR FILTRATION RATE 55.7 (>51); GLUCOSE, FASTING 82 MG/DL (70-105); POTASSIUM SERUM 3.8 MEQ/L (3.5-5.1); SODIUM LEVEL 141 MEQ/L (136-145); TOTAL PROTEIN 7.1 GM/DL (6.4-8.2)
[2016-10-20] MEDS ORDERED: NITROGLYCERIN 0.4 MG SUBL TABLET SL PRN (14:30)
[2016-10-20] MEDS ORDERED: ISOVUE-370 76% 100ML VIAL (Q9967) As Ordered ONE ×2 (14:30→15:11)
[2016-10-20] MEDS ORDERED: traMADol 50 MG TAB PO ONE (14:30)
--- NOTE | 2016-10-20 16:10 | REP ---
CT ANGIOGRAM CHEST: 10/20/2016. CLINICAL HISTORY: Dyspnea. Chest pain. COMPARISON: CT 12/24/2015. Portable chest x-ray today. TECHNIQUE: The patient received a bolus of 75 mL of Isovue 370. When the machine failed to initialize colleague recommended retry with 50 mL of contrast. Accordingly, the contrast density in the pulmonary arteries is diminished. This limits the sensitivity of the exam for all but the central pulmonary arteries. FINDINGS: The lung thomason are hypoinflated with some dependent atelectatic changes in the lower lung zones and old granulomatous calcification in the left lower lobe, unchanged. There are a few other noncalcified nodules, stable from prior studies, likely also granulomas. Calcified granuloma in the right upper lobe is also seen. There is no effusion, pleural thickening, calcified pleural plaques, pleural effusion or parenchymal lung mass. No dense consolidation with air bronchograms. Heart size upper limits of normal, magnified by low level of inflation. There is a small hiatal hernia again present. The aorta is without aneurysm or dissection. No pathologic sized mediastinal or hilar adenopathy. The main, right and left pulmonary artery in the mediastinum are without filling defects. Lobar arteries are grossly normal, but contrast density in the remainder of the pulmonary arterial tree is inadequate for segmental or subsegmental artery evaluation. No axillary or supraclavicular mass nor adenopathy. There is no pneumothorax or pneumomediastinum. The bone windows show the sternum, manubrium, medial clavicles, portions of the humeral heads, scapula, ribs and the visualized spine without compression deformity, fracture or destructive lesion. In the upper abdomen, the liver is seen only in part, but is not grossly enlarged. There is no focal hepatic mass or intrahepatic biliary dilatation. Clips from prior cholecystectomy are noted. No ascites. Arterial phase imaging of the spleen is seen with heterogeneous enhancement, typical for that phase. No adrenal lesions noted. No upper abdominal adenopathy. The visualized small bowel loops and colon intact. Portions of the pancreas included were also unremarkable. IMPRESSION: 1. There is no CT evidence of pulmonary thromboembolism in the central pulmonary arteries and the lobar arteries. Segmental arteries and beyond cannot be evaluated as there was initialization failure of the scanner on bolus triggering and the scan was repeated with 50 more mls of Isovue 370 but not adequate peripheral contrast density. 2. No effusion, infiltrate or mass. There is some minor subsegmental atelectasis. 3. Stable appearance of some nodules with calcified granulomas in both lungs and some other nodules, not definitely calcified at this time. 4. Prior cholecystectomy. No focal hepatic or splenic mass. Upper abdomen unremarkable. 5. No aortic aneurysm or dissection and no focal bone lesion. Signed by Maicol Rush MD 10/20/2016 04:40 P
--- NOTE | 2016-10-20 19:58 | ECGEPIP ---
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
--- NOTE | 2016-10-20 20:03 | ECGEPIP ---
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
[2016-10-20] MEDS ORDERED: GI COCKTAIL 50ML BTL(HYOSCYAMINE/MAALOX/LIDOCAINE VISCOUS)(1:3:1) PO ONE (20:45)
[2016-10-20] MEDS ORDERED: ONDANSETRON 4MG/2ML VIAL (J2405) IV PRN (20:45)
[2016-10-20] MEDS ORDERED: NS 1,000 ML IV SCH (20:45)
[2016-10-20] MEDS ORDERED: hydrOXYzine 25 MG TAB PO PRN ×2 (20:45→21:45)
[2016-10-20] MEDS ORDERED: SUCRALFATE 1 GM TAB PO ONE (20:45)
[2016-10-20] MEDS ORDERED: ACETAMINOPHEN TAB 650MG DOSE (2X325MG) PO PRN (20:45)
[2016-10-20] MEDS ORDERED: PANTOPRAZOLE 40MG TAB (PROTONIX) PO ONE (20:45)
[2016-10-20] MEDS ORDERED: TIZA4CAP3 PO (20:53)
[2016-10-20] MEDS ORDERED: OMEP20CA3 PO (20:53)
[2016-10-20] MEDS ORDERED: SUCRALFATE 1 GM TAB PO SCH (21:00)
[2016-10-20] MEDS ORDERED: LIDOCAINE 5% (LIDODERM) PATCH TD SCH (21:00)
[2016-10-20] MEDS ORDERED: ATORVASTATIN 20 MG TAB PO SCH (21:00)
[2016-10-20] MEDS ORDERED: LISINOPRIL 10 MG TAB PO SCH (21:00)
[2016-10-20] MEDS: amLODIPine 5 MG TAB PO SCH (21:00)
[2016-10-20] MEDS ORDERED: tiZANidine 4 MG TAB PO PRN (21:45)
[2016-10-20 22:43] VITALS: BP 153/83
[2016-10-20] MEDS: APIXABAN 5 MG TAB (ELIQUIS) PO SCH (22:58)
[2016-10-20] MEDS ORDERED: CETIRIZINE (ZyrTEC) 10 MG TAB PO ONE (23:00)
[2016-10-20] MEDS ORDERED: ATOR40TA75 PO (23:04)
[2016-10-20] MEDS ORDERED: PAXI30TA11 PO (23:04)
[2016-10-20 23:59] VITALS: BP 135/93
--- NOTE | 2016-10-21 01:30 | HPE ---
DATE OF ADMISSION: 10/20/2016 TIME: Patient was seen at 2100 PRIMARY CARE PROVIDER: Used to be Dr. Rosado from the [facility]. CHIEF COMPLAINT: Elevated blood pressure with worsening urinary urgency and incontinence, as well as diarrhea with chest pressure. HISTORY OF PRESENT ILLNESS: 51-year-old female with a past medical history of deep venous thrombosis (DVT) thrombophlebitis for nine times in 2016, as well as paroxysmal atrial fibrillation on Eliquis, fibromyalgia, migraine headache, stress incontinence, depression, hyperlipidemia, vitamin deficiencies, elevated thyroid-stimulating hormone (TSH), factor II gene heterozygous mutation, presented with elevated blood pressure, was initially at the pain clinic seeing Dr. Olmos; however, her blood pressure was found to be 158/101. Therefore, she was sent to emergency room for further evaluation. While she was in the emergency room, she admits to chest pressure started roughly 2 days ago and also has increased shortness of breath. The chest pressure was worse; however, with food 2 days ago and happens intermittently, does not seem to relieve with any medication and appears to be somewhat positional. Patient also admits to increased dizziness this morning. She claimed that she almost ran into a wall and she also admits to choking sensation and feeling numbness in the right arm that lasted for a few minutes. Otherwise, she denies any actual fever. Admits to chills and hot flashes. Admits to diarrhea three times today and diarrhea looked dark; however, no cleopatra blood. No blood in the urine. Patient denies any actual abdominal pain right now; however, she stated that when she pushed on her abdomen it felt hard and has a little bit of tenderness on palpation. Otherwise, she also admits to bitten by fleas recently on bilateral arms and it was warm initially; however, now it has improved and she has this rash on her arm for the past 2 days as well. Otherwise, she denies any headaches, any weakness on any one side of her body. ALLERGIES: Patient is allergic to ZIPSOR which gives her agitation, FLEXERIL gives her agitation, LYRICA gives her anaphylactic reactions, BACTRIM gives her nausea, vomiting, SHELLFISH gives her swelling and hives, CYMBALTA makes her nauseous and vomiting, AMITRIPTYLINE gives her agitation. She stated that she is not allergic to gabapentin. She has hallucinations from TORADOL and TRAMADOL. HOME MEDICATIONS: - Eliquis 5 mg by mouth twice a day - hydroxyzine 25 mg by mouth daily as needed - lisinopril 10 mg by mouth nightly - omeprazole 20 mg by mouth daily - tizanidine 4 mg by mouth as needed for muscle spasm PAST MEDICAL HISTORY: 1. Fibromyalgia. Follows at pain clinic. 2. History of Clostridium (C) difficile and methicillin-resistant Staphylococcus aureus (MRSA). 3. History of paroxysmal atrial fibrillation. 4. History of DVT of left arm nine times in the past after a peripherally inserted central catheter (PICC) line insertion that developed into a thrombophlebitis. 5. Stress urinary incontinence. 6. Depression. 7. Hyperlipidemia. 8. Vitamin D deficiency. 9. History of TSH elevation. 10. Factor II gene heterozygous mutation in 2016, which increased risk for DVT 2-3 times the normal population. PAST SURGICAL HISTORY: Includin. Tubal ligation. 2. Distal fourth finger repair secondary to trauma. 3. Benign tumor removal of right leg. 4. Dental surgeries. 5. Laparoscopic cholecystectomy (LAP GIOVANNI). 6. Hysterectomy. 7. Abscess of the right groin and sepsis from it. 8. Loop recorder placement and removal 2 years ago. SOCIAL HISTORY: Patient denies any smoking, quit more than 10 years ago, used to smoke very lightly for many years. Denies any drinking or recreational drug use. Patient has six dogs. FAMILY HISTORY: Patient's father had pneumonia, congestive heart failure (CHF) and neuropathy, also DVTs. Mother from unspecified cancer. Sibling alive has lupus and diabetes. REVIEW OF SYSTEMS: GENERAL: Patient denies any recent traveling or sick contact. However, she admits to weight gain. Admits to chills and hot flashes after hysterectomy. HEENT: Patient denies any changes of vision, smell, hearing or taste. Denies any trouble swallowing; however, she does admit to some choking sensation that has been going on for at least for a few weeks. Denies any cough. CARDIOVASCULAR: Admits to chest pressure in the center. Patient described it as elephant sitting on her chest, which seems to be worse with food. She also had one time of nonbloody, nonbilious vomiting. Otherwise, denies any palpitations. Admits to some shortness of breath, however. PULMONARY: Admits to some shortness of breath. Denies any use of oxygen. GASTROINTESTINAL (GI): Admits to abdominal pain on palpation. Admits to nausea , vomiting times one, which was nonbloody, nonbilious. Admits to diarrhea for three times today, which was dark looking; however, no cleopatra blood. GENITOURINARY (): Admits to urinary urgency and also some dysuria and it is worse than usual. Denies any blood in the urine, however. MUSCULOSKELETAL: Admits to generalized ache with pain in the chest, in the bilateral neck, and also in the jaw, as well as the right arm and also right arm numbness. Patient, however, does have a history of fibromyalgia. Patient did have similar pains in the past. HEMATOLOGY/ONCOLOGY: Denies any blood in the stool or urine. Denies any bruising. SKIN: Patient admits to recent rash in bilateral arms from flea bites per patient that was warm the night prior; however, it seems to be improving. ENDOCRINE: Patient denies any cold intolerance. Admits to feeling chills and having hot flashes after hysterectomy. NEUROLOGICAL: Denies any weakness on any one side of her body. PSYCHIATRIC: Admits to depression. PHYSICAL EXAMINATION: VITAL SIGNS: Temperature 97.7, pulse 81, respirations 16, blood pressure 140/92 , oxygen saturation 98% on room air. GENERAL: Patient is a morbidly obese middle-aged female who was alert, awake, oriented times three. Appears to be older than her age. Sitting up comfortably in her bed with head elevated at 60 degrees. HEENT: Normocephalic, atraumatic. Extraocular motor intact. Mucosa moist. NECK: Supple, no neck lymphadenopathy. CARDIOVASCULAR: Regular rate and rhythm, normal S1, S2. No murmurs. LUNGS: Clear to auscultation bilaterally. No wheezing, rales or rhonchi. ABDOMEN: Mildly tender to palpation in the epigastric region and also in the left lower quadrant. No peritoneal signs. No ecchymosis. EXTREMITIES: No edema, clubbing, or cyanosis. SKIN: Warm and dry. NEUROLOGIC: Cranial nerves II-XII intact. No focal neurological deficit. LABORATORIES: WBC 6.5, hemoglobin 14.5, hematocrit 42.1 with platelet count of 253, and MCV of 88.5. Sodium 149, potassium 3.8, chloride 106, bicarbonate 29, BUN 14, creatinine 101, appears to be at baseline, GFR 55.7, fasting glucose 8.2, calcium 9.1, total bilirubin 0.3, AST 19, ALT 27, alkaline phosphatase 135, CK 102, CK-MB 1, troponin less than 0.02, protein 7.1, albumin 3.4, lipase 315. TSH 2.88. Coagulation panel shows PT 12.6, INR 0.94, PTT 27.8. GI panel is currently pending. Patient had a portable chest x-ray in the emergency room that shows no acute disease. She also had CT angiography of the chest that shows no evidence of pulmonary embolism in the central pulmonary arteries and the lobar arteries. Segmental arteries and beyond cannot be evaluated due to inadequate peripheral contrast density. No effusion, infiltrate or mass. Stable appearance of some nodules with calcified granulomas in both lungs and some other nodules not defined calcified at this time. Prior cholecystectomy. Patient also had a CT of head in the emergency room. Preliminary result shows no abnormal findings. However, official result is pending. Will followup. 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 Chest pressure with elevated blood pressure and right arm numbness that was worse with food. Likely atypical chest pain, less likely to be cardiac at this point due to it was exacerbated by food. She also had one time of nausea, vomiting in the emergency room, which was nonbilious, nonbloody. Will continue to trend the troponin to rule out acute coronary syndrome. So far EKG has been negative. Troponin has been negative. Will start patient on a gastrointestinal (GI) cocktail with oral Protonix and also Carafate and continue to monitor patient. Continue intravenous (IV) fluid at 150 mL/h and place patient on clear liquid diet for now. 2. Abdominal tenderness with nausea, vomiting and diarrhea. At this point, likely secondary to gastroenteritis. There is no actual fever and patient does not appear to be anemic. Will obtain a GI panel. At this point, likely viral etiology. 3. Rash of bilateral upper arms. Likely secondary to flea bites. Will start patient on bacitracin ointment bilaterally and continue to monitor patient. 4. History of DVT of left upper extremity after peripherally inserted central catheter (PICC) line placement with thrombophlebitis. At this point, patient does not appear to be having acute pain on the right side. No evidence of DVT currently. If patient's pain persists, will possibly perform an ultrasound of the right upper extremity. At this point, will continue Eliquis. She does have an increased chance for DVT due to she has factor II gene heterozygous mutation back in April 2015, which increases her risk for DVT 2-3 times than general population. 5. History of paroxysmal atrial fibrillation on Eliquis. Currently, patient's heart rate is regular. EKG did not show any arrhythmia. Continue to monitor. 6. Hyperlipidemia. Continue home statin. 7. Fibromyalgia. Continue home pain management wit tizanidine. 8. History of migraine headache. Continue Paxil. 9. Stress urinary incontinence with increased urgency and dysuria today. Will obtain urine culture and urinalysis. Possibly contributed to patient's elevated blood pressure. 10. Hypertension. Continue home medication lisinopril. Patient does appear to have slightly elevated creatinine; however, compared to recent labs back in July, this appears to be her baseline. Continue to monitor. Will add Norvasc 5 mg with hold parameters for cases that patient's blood pressure elevates. 11. History of MRSA and C. difficile. Will start patient on Bacid while she is here. 12. Deep venous thrombosis (DVT) prophylaxis. On home Eliquis. 13. Fluid, electrolytes, and diet. Will continue on IV fluid at 150 mL/h for a 1 liter [address] and will place the patient on clear liquid diet for now due to one time of nausea, vomiting. Will give additional IV fluid if patient still has nausea, vomiting in the morning. Start patient on aspiration precautions, however. DISPOSITION: At this time, patient's concern is mostly cardiac. Will continue to rule out acute coronary syndrome (ACS). So far everything, EKG and troponin have been negative. Patient's blood pressure was likely secondary to most likely a viral gastroenteritis versus possibly urinary tract infection (UTI). Will followup with a urinalysis and urine culture and start patient on antibiotic if needed. Otherwise, patient's obesity likely will complicate the care. Patient has been discussed with attending doctor, Dr. Fitzgerald. My preceptor for this patient encounter was Dr. Mery Fitzgerald. The preceptor was physically present in the building during the encounter and was fully available as needed. All aspects of the patient interview, examination, medical decision making process, and medical care plan development were reviewed and approved by the preceptor. The preceptor is aware and concurs with the plan as stated in the body of this note and will attest to such by his/her co-signature. Attending Addendum Note: I have independently interviewed and examined this patient, discussed the management plan with my Resident Physician, Dr. Cece Lynne, and agree with the documentation as written above. ASPEND
[2016-10-21] MEDS ORDERED: diphenhydrAMINE CREAM 30GM TOP PRN (03:00)
[2016-10-21 04:05] VITALS: BP 119/66
[2016-10-21 05:31] LABS: BASO % 0.4 % (0.0-1.0); EOS # 0.1 K/mm3 (0.0-0.50); EOS % 1.4 % (0.0-3.0); LARGE UNSTAINED CELL # 0.1 K/mm3 (0.0-0.4); LARGE UNSTAINED CELL % 1.6 % (0.0-4.0); LYMPH # 1.9 K/mm3 (1.5-4.5); LYMPH % 42.3 % (24.0-44.0); MEAN CORPUSCULAR HEMOGLOBIN 29.3 pg (27.0-33.0); MEAN CORPUSCULAR HGB CONC 32.7 g/dl (32.0-36.5); MEAN CORPUSCULAR VOLUME 89.7 fl (80.0-96.0); MONO # 0.3 K/mm3 (0.0-0.8); MONO % 6.3 % (0.0-5.0); NEUTROPHILS # 2.1 K/mm3 (1.8-7.7); PLATELET COUNT, AUTOMATED 206 k/mm3 (150-450); RED CELL DISTRIBUTION WIDTH 13.9 % (11.5-14.5); WHITE BLOOD COUNT 4.3 K/mm3 (4.0-10.0)
[2016-10-21 05:54] LABS: ANION GAP 7 MEQ/L (8-16); BLOOD UREA NITROGEN 9 MG/DL (7-18); CALCIUM LEVEL 8.1 MG/DL (8.5-10.1); CARBON DIOXIDE LEVEL 28 MEQ/L (21-32); CHLORIDE LEVEL 110 MEQ/L (98-107); CHOLESTEROL LEVEL 203 MG/DL (<200); CREATININE FOR GFR 1.03 MG/DL (0.55-1.02); GLOMERULAR FILTRATION RATE > 60.0 (>51); GLUCOSE, FASTING 80 MG/DL (70-105); MAGNESIUM LEVEL 2.6 MG/DL (1.8-2.4); POTASSIUM SERUM 4.2 MEQ/L (3.5-5.1); SODIUM LEVEL 145 MEQ/L (136-145); TRIGLYCERIDES LEVEL 145 MG/DL (<150)
[2016-10-21 07:10] VITALS: BP 97/52
[2016-10-21] MEDS ORDERED: SUCRALFATE 1 GM TAB PO SCH (07:30)
[2016-10-21 08:56] VITALS: BP 97/52
[2016-10-21] MEDS: APIXABAN 5 MG TAB (ELIQUIS) PO SCH (08:56)
[2016-10-21] MEDS: amLODIPine 5 MG TAB PO SCH (08:56)
[2016-10-21] MEDS ORDERED: CETIRIZINE (ZyrTEC) 10 MG TAB PO SCH (09:00)
[2016-10-21] MEDS ORDERED: LACTOBACILLUS ACIDOPHILUS CAP (BACID) PO SCH (09:00)
[2016-10-21] MEDS ORDERED: PARoxetine 10MG TABLET PO SCH (09:00)
[2016-10-21] MEDS ORDERED: PANTOPRAZOLE 40MG TAB (PROTONIX) PO SCH (09:00)
[2016-10-21] MEDS ORDERED: APIXABAN 5 MG TAB (ELIQUIS) PO SCH (09:00)
[2016-10-21] MEDS ORDERED: **NOTE PATIENT COMMENT** MISC XX SCH (09:00)
[2016-10-21] MEDS ORDERED: BACITRACIN OINT 30GM TOP SCH (09:00)
[2016-10-21] MEDS ORDERED: SUCR1TA PO (10:07)
[2016-10-21] MEDS ORDERED: PANT40TA2 PO (10:07)
--- NOTE | 2016-10-21 17:20 | ECGEPIP ---
Stationary ECG Study [facility] Test Date: 2016-10-21 Pat Name: SMITH VIVEROS Department: Room: [place] [address] Gender: F [employer] Super[employer]: JENNIFER : 1965 Requested By: ANGEL Soto Order Number: [id number] Reading MD: Taurus Garibay Measurements Intervals [place] Rate: 61 P: 23 GA: 140 QRS: 11 QRSD: 94 T: 23 QT: 436 QTc: 441 Interpretive Statements SINUS RHYTHM LOW QRS VOLTAGE IN PRECORDIAL LEADS POSSIBLE INFERIOR MYOCARDIAL INFARCTION, PROBABLY OLD COMPARED TO THE LAST 3 TRACINGS IN THE SYSTEM, NO SIGNIFICANT CHANGES Electronically Signed On 10-21-2016 17:20:08 EDT by Taurus Garibay
--- NOTE | 2016-10-22 13:42 | DSES ---
DATE OF ADMISSION: 10/20/2016 DATE OF DISCHARGE: 10/21/2016 DISCHARGE DIAGNOSIS: Chest pain. SECONDARY DIAGNOSES: 1. Fibromyalgia. 2. Urinary urgency. 3. Stress incontinence. 4. Diarrhea. 5. Paroxysmal atrial fibrillation. 6. Hypertension. 7. Dyslipidemia. 8. Migraines. 9. Depression. 10. Gastroesophageal reflux disease. HOSPITAL COURSE: The patient is a 51-year-old female who reportedly presented to the pain clinic to see Dr. Olmos and her blood pressure was found to be 158/101. For reasons unclear to me, the patient was referred to the emergency room for a hypertensive urgency. Upon arrival to the emergency room, her blood pressure was 149/92. She briefly given some Norvasc while hospitalized. However, her blood pressure dropped quite low to 97/52 and as such this was discontinued. She had a complaint of some substernal chest pain radiating down her right arm that was worse with eating. She was admitted to telemetry and monitored without any cardiac events. She had multiple sets of cardiac enzymes which were all negative. All of her laboratory studies were fairly unremarkable. She had a thyroid-stimulating hormone (TSH) within normal limits. Electrolytes were fairly optimized. Renal function was stable. She did not have any leukocytosis. The patient did quite well. This morning, the patient is tolerating a regular diet and is doing quite well. SUBJECTIVE: The patient wants to go home. She tells me that she still has some discomfort in her chest but it is better. She denies fevers or chills. She tells me that the rash on her arms has resolved which she had yesterday evening. She tells me that her stress incontinence is chronic. She has not had any diarrhea. She denies any dysphagia. OBJECTIVE: VITAL SIGNS: Temperature 97.2, pulse 69, respiratory rate 18, blood pressure 97/52, oxygen saturation 96% on room air. GENERAL: She is a morbidly obese, female laying flat in bed. She does not appear to be in any acute distress. NEUROLOGIC: Cranial nerves II-XII are grossly intact. HEENT: She has moist mucous membranes. No elevation of central venous pressure (CVP). CARDIOVASCULAR: S1, S2, regular rate and rhythm. RESPIRATORY: At this time, fairly clear. ABDOMEN: Grossly obese. EXTREMITIES: No clubbing, cyanosis, or edema. LABORATORY STUDIES: Today, WBC 4.3, hemoglobin 12.9, and platelet count 206. Chemistry panel: Sodium 145, potassium 4.2, chloride 110, bicarbonate 28, BUN 9, creatinine 1.0, INR 0.9. UA was fairly unremarkable. H. pylori IgG antibodies pending. Urine culture is pending. IMAGING STUDIES: The patient did have a CT angiography of the chest which revealed no PE. No effusion, infiltrates or mass. Some minor subsegmental atelectasis, stable calcified nodules with calcified granulomas. No aortic aneurysm or dissection. No focal bone lesion. The patient had a CT scan of the head, a final report is not available in [facility]. Preliminary report from 10/20/[address] Torres reveals no acute disease. She will have to followup the final report with her primary care provider. ASSESSMENT AND PLAN: A 51-year-old female with atypical chest pain. PROBLEMS: 1. Atypical chest pain. This appears to be very unlikely to be cardiac in nature. Her enzymes were negative. Her EKG unremarkable. No abnormalities on telemetry. It is fairly persistent and dull, worse with food. I suspect that it is more likely related to gastroesophageal reflux disease. She will actually be discharged today on Protonix 40 mg by mouth twice a day and Carafate before meals and at bedtime. If these medications fail to improve over the next 4-6 weeks, we could consider outpatient gastroenterology referral for a possible endoscopy. 2. Diarrhea. The patient initially did complain of this but, at this time, she tells me that she has not had diarrhea for several days. Gastrointestinal (GI) PCR panel was ordered. However, the patient is not actually having this as a problem anymore. 3. Stress incontinence, chronic. Recommend continuing to followup with her primary care provider. 4. Upper extremity rash, appears to be resolved at this time. No evidence of rash on physical examination today. 5. Hypertensive urgency. The patient was experiencing some chest pain following eating in Dr. Olmos's. She was very mildly hypertensive, certainly not hypertensive emergency. In fact, at this time now that her pain has improved, she is actually hypotensive so I will discharge her home on her regular antihypertensive regimen of lisinopril. 6. Paroxysmal atrial fibrillation. She is on Eliquis. She does not require any rate controlling agents. 7. Dyslipidemia. She is on atorvastatin. 8. Mood disorder. She is on Paxil. 9. Muscle spasms. Continue with tizanidine as needed. 10. Deep vein thrombosis (DVT) prophylaxis. The patient has been on Eliquis. DISPOSITION: The patient is being discharged home. She is at her functional baseline and her clinical syndrome has improved. She will followup with her primary care provider (PCP) within a week. Her activity is as tolerated. Her diet is as prior to admission. MEDICATIONS AT THE TIME OF DISCHARGE: - pantoprazole 40 mg by mouth twice a day - Carafate 1 gram before meals and at bedtime - Eliquis 5 mg twice a day - atorvastatin 40 mg at bedtime - hydroxyzine 25 mg as needed for anxiety - lisinopril 10 mg at bedtime - paroxetine 30 mg daily - tizanidine 4 mg daily as needed for spasms Greater than 30 minutes was spent organizing disposition.
--- NOTE | 2016-10-23 07:32 | REP ---
CT Head without contrast HISTORY: Headache COMPARISON: 08/08/2015 There is no intraparenchymal hemorrhage, acute infarct, mass or midline shift. The ventricular system is normal in appearance. There is no extra cerebral collection. There is no fracture. The visualized sinuses are clear. IMPRESSION: There is no intracranial lesion. Signed by Reinaldo Torres MD 10/20/2016 03:22 P
[2016-10-23 10:03] LABS: CONTROL LINE HPYORI INT CTR LINE PRESENT
== END 2016-10-21 12:02 | disposition home or self-care (01) ==
LOC: EDBD 13:02 → M ED 13:02 → INTOOBSV 20:51 → M ED INP 20:51 → M PCU 22:41
PROVIDERS: ADMIT Internal Medicine; ATTEND Internal Medicine
DX: R07.89 Other chest pain (principal); M79.7 Fibromyalgia; R39.15 Urgency of urination; N39.3 Stress incontinence (female) (male); R19.7 Diarrhea, unspecified; I48.0 Paroxysmal atrial fibrillation; I10 Essential (primary) hypertension; E78.5 Hyperlipidemia, unspecified; G43.909 Migraine, unspecified, not intractable, without status migrainosus; F32.9 Major depressive disorder, single episode, unspecified; K21.9 Gastro-esophageal reflux disease without esophagitis; R21 Rash and other nonspecific skin eruption; R11.2 Nausea with vomiting, unspecified; E66.01 Morbid (severe) obesity due to excess calories; M62.838 Other muscle spasm; Z86.718 Personal history of other venous thrombosis and embolism; E55.9 Vitamin D deficiency, unspecified; D68.52 Prothrombin gene mutation; R94.6 Abnormal results of thyroid function studies; Z79.899 Other long term (current) drug therapy; Z79.01 Long term (current) use of anticoagulants; Z86.14 Personal history of Methicillin resistant Staphylococcus aureus infection; Z86.19 Personal history of other infectious and parasitic diseases; Z88.8 Allergy status to other drugs, medicaments and biological substances; Z88.1 Allergy status to other antibiotic agents; Z91.013 Allergy to seafood; Z88.5 Allergy status to narcotic agent; Z87.891 Personal history of nicotine dependence
CPT/HCPCS: 36415; 70450; 71010; 71275; 80048; 80061; 80076; 81001; 82550; 82553; 83690; 83735; 83880; 84443; 85025; 85610; 85730; 86677; 87086; 93000; 93041; 94760; 96360; 99285; Q9967

== ENCOUNTER → 2016-10-20 | Outpatient (CLI) | payer OTHER, MEDICAID ==
[~2016-10-20] MED LIST changes: -BUPIVACAINE HCL 0.25% 10 ML VIAL As Ordered ONE; -BUPIVACAINE HCL 0.25% 30 ML VIAL As Ordered ONE; -TRIAMCINOLONE ACETONIDE SUSP 40 MG/ML VIAL (J3301) As Ordered ONE; -diazePAM 5 MG TAB As Ordered ONE; -oxyCODONE 5MG TAB As Ordered ONE
--- NOTE | 2016-11-07 00:10 | ECWPNPC ---
PATIENT NAME: SMITH VIVEROS : 1965 GENDER: FEMALE VISIT DATE: 10/20/2016 DISCHARGE DATE: 10/20/16 1255 VISIT LOCKED DATE TIME: PHYSICIAN: ARELIS MILLER RESOURCE: ARELIS MILLER REASON FOR APPOINTMENT 1. NECK PAIN HISTORY OF PRESENT ILLNESS HISTORY OF PRESENT ILLNESS: PAIN THE PATIENT DESCRIBES THE PAIN... 51 YEAR OLD FEMALE PATIENT WITH HISTORY OF CHRONIC NECK PAIN. PATIENT DESCRIBES THE PAIN ACHING, BURNING, SHARP STABBING, TENDER, THROBBING, SORE, SHOOTING AND HAVING IT ALL THE TIME WITH A PAIN SCORE OF 10/10. PATIENT REPORTS SHORTNESS OF BREATH AND IRREGULAR HEART BEAT WHILE AT TODAY'S VISIT. PATIENT DENIES UNEXPLAINABLE WEIGHT LOSS, FEVER, CHILLS, NEW CHANGES ON HER URINARY OR BOWEL CONTROL. FALL RISK SCREENING: SCREENING :NO FALLS IN THE PAST YEAR CURRENT MEDICATIONS TAKING BLOOD PRESSURE CUFF - MISCELLANEOUS DIRECTED _ DAILY TAKING ELIQUIS 5 MG TABLET 1 TAB(S) ORALLY TWICE DAILY TAKING PAROXETINE HCL 30 MG TABLET 1 TABLET IN THE MORNING ORALLY ONCE A DAY TAKING ATORVASTATIN CALCIUM 40 MG TABLET 1 TABLET ORALLY ONCE A DAY TAKING PRILOSEC 20 MG CAPSULE DELAYED RELEASE 1 CAPSULE ORALLY TWICE DAILY TAKING LISINOPRIL 10 MG TABLET DIRECTED ORALLY DAILY TAKING VISTARIL 25 MG CAPSULE 1 CAPSULE NEEDED ORALLY TWICE DAILY NEEDED NOT-TAKING LIDOCAINE 4 % CREAM 1 APPLICATION TO AFFECTED AREA NEEDED EXTERNALLY APPLY SMALL AMOUNTS THREE TIMES A DAY TO PAINFUL AREAS OF SHOULDERS AND NECK NOT-TAKING TIZANIDINE HCL 4 MG TABLET 1 TABLET NEEDED ORALLY EVERY 8 HRS NOT-TAKING KETOROLAC TROMETHAMINE 10 MG TABLET 1 TABLET WITH FOOD OR MILK NEEDED ORALLY EVERY 6 HRS PRN FOR PAIN MDD2 NOT-TAKING GABAPENTIN 100 MG CAPSULE 1 TABLET ORALLY THREE TIMES DAILY, NOTES: 05/18 6AM NOT-TAKING TRAMADOL HCL 50 MG TABLET 1-2 TABLET NEEDED ORALLY EVERY 8 HRS MDD=3 NOT-TAKING TRAMADOL HCL 50 MG TABLET 1 TABLET NEEDED ORALLY TWICE DAILY NEEDED, NOTES: 2016 MEDICATION LIST REVIEWED AND RECONCILED WITH THE PATIENT PAST MEDICAL HISTORY FIBROMYALGIA DX 4 YEARS AGO, BEING FOLLOWED AT PAIN CLINIC MIGRAINE HEADACHE STRESS INCONTINENCE DEPRESSION HYPERLIPIDEMIA VITAMIN D DEFICIENCY AFIB GERD INTERMITTENT A FIB ALLERGIES ZIPSOR: ALLERGY FLEXERIL: AGGITATION: ALLERGY LYRICA: ANAPHYLAXIS: ALLERGY DICLOFENAC POTASSIUM: AGGITATION (ZIPSOR): ALLERGY BACTRIM: NAUSEA/VOMITING: ALLERGY SHELL FISH: SWELLS, HIVES: ALLERGY CYMBALTA: NAUSEA/VOMITING: SIDE EFFECTS AMITRIPTYLINE: AGGITATION: SIDE EFFECTS GABAPENTIN: HALLUCINATIONS: SIDE EFFECTS TRAMADOL HCL: HALLUCINATIONS: SIDE EFFECTS TIZANIDINE HCL: HIVES: ALLERGY KETOROLAC TROMETHAMINE: STOMACH PAIN: ALLERGY SURGICAL HISTORY TUBAL LIGATION 1988 DISTAL 4TH FINGER REPAIR SECONDARY TO TRAUMATIC INJURY BENIGN TUMOR REMOVAL RIGHT LEG DENTAL SURGERIES CHOLECYSTECTOMY 05/2014 HYSTERECTOMY STILL HAS 1 OVARY BUT NOT SURE WHICH ONE 2012 ABSCESS R GROIN 2014 HOSPITALIZATION/MAJOR DIAGNOSTIC PROCEDURE ABOVE SURGERIES MRSA RIGHT GROIN 2014, C DIFF 2014 REVIEW OF SYSTEMS REVIEWED BY: PROVIDER: ARELIS MILLER MD . CONSTITUTIONAL: ANY CHANGE IN YOUR MEDICAL CONDITION? NO . CHILLS NO . FEVER NO . INFECTION: DO YOU HAVE NEW INFECTIONS? NO . DO YOU HAVE HISTORY OF MRSA? NO . MUSCULOSKELETAL: ANY NEW PATTERNS OF PAIN OR NUMBNESS? YES, PT STATES TPI TO NECK DONE 10/05/16, PRE PROCEDURE PAIN WAS 10/10, POST PROCEDURE PAIN WAS 8/10, TODAY PT REPORTS PAIN 10/10 . GASTROENTEROLOGY: ANY NEW CHANGE IN BOWEL CONTROL? NO . GENITOURINARY: ANY NEW CHANGE IN BLADDER CONTROL? NO . IS THERE A CHANCE YOU COULD BE ? NO . HEMATOLOGY/LYMPH: DO YOU TAKE ANY BLOOD THINNERS? (FOR EXAMPLE- COUMADIN, PLAVIX, AGGRENOX, PLATEL, PRADAXA, OR XARELTO) YES, ELAQUIS . WHEN WAS YOUR LAST DOSE? DATE: TIME: . NEUROLOGY: HAVE YOU FALLEN IN THE PAST 6 MONTHS? YES, PT STATES SHE FELL 4 MONTHS AGO, RIGHT KNEE GAVE OUT, PT DENIES INJURIES, PT DENIES SEEKING MEDICAL ATTENTION . ANY NEW EXTREMITY NUMBNESS OR WEAKNESS? NO . CARDIOLOGY: DO YOU HAVE A PACEMAKER OR DEFIBRILLATOR? YES, PT C/O HEART PALPITATIONS, PT STATES THIS IS A PART OF HER BASELINE. PT STATES SHE SAW DR. MILLS, WHO GRADUATED AND SHE NO LONGER SEES THEM. PT STATES SHE CURRENTLY HAS NO PCP,DOES NOT SEE A COMMUNITY HEALTH ADVOCATE, BUT DID SEE DR. SILVERMAN LAST YEAR FOR HEART PALPITATIONS, PT STATES SHE HAD WORK UP DONE AND WAS TOLD ALL IS NORMAL, PT STATES SHE IS GOING TO BE SCHEDULED TO SEE DR. YOUSSEF PCP IN [place] TO COVER HER FOR HER MEDS AND CONDITIONS . RESPIRATORY: HAVE YOU BEEN SICK IN THE PAST WEEK? NO . FEVER NO . FLU LIKE SYMPTOMS? NO . COUGH NO . INTEGUMENTARY: DO YOU HAVE ANY RASHES OR OPEN SORES? YES, PT STATES SHE HAS FLEA BITES FROM PET DOGS . ALLERGIC/IMMUNO: ARE YOU ALLERGIC TO SHELLFISH OR IV DYE? YES, SHELLFISH . ANY NEW ALLERGIES? NO . PSYCHIATRIC: DO YOU HAVE THOUGHTS OF HURTING YOURSELF OR SOMEONE ELSE? NO . ARE YOU ABUSED, NEGLECTED, OR IN AN UNSAFE ENVIRONMENT? NO . ENDOCRINOLOGY: ARE YOU DIABETIC? NO . OTHER: DO YOU NEED ANY PRESCRIPTIONS? NO, PT WANTS TO DISCUSS PAIN MANAGMENT REGIMEN WITMA DR. MILLER . IF YES, PLEASE LIST: ____ . ANY NEW PROBLEMS WITH YOUR MEDICATIONS? NO . WHEN DID YOU LAST EAT? ____ . WHEN DID YOU LAST DRINK? ____ . WHAT DID YOU LAST DRINK? ____ . NAME OF PERSON DRIVING YOU HOME? ____ . DO YOU HAVE ANY OTHER QUESTIONS OR CONCERNS NO . VITAL SIGNS WT 256.8 LBS, HT 61 IN, BMI 48.52 INDEX, BP 186/102 MM HG, REPEAT BP MANUAL 158/100, HR 95 /MIN, RR 18 /MIN, TEMP 97.8 F, OXYGEN SAT % 96%, SAFE IN ENV? (Y/N) Y, NA INITIALS NC 10:59, REVIEWED BY: GIULIANO. EXAMINATION : PATIENT IS ALERT O X 3 AND COOPERATIVE. TENDERNESS IN THE CERVICAL AREA AND PARASPINAL MUSCLE GROUP. ASSESSMENTS MYALGIA - M79.1 (PRIMARY) TREATMENT MYALGIA NOTES: WE DISCUSSED SEVERAL ISSUES WITH MRS. ALVARADO'S PAIN MANAGEMENT CASE. AT THIS TIME I WILL NOT CHANGE HER MEDICATION DUE TO THE HEART PALPITATIONS. PATIENT WILL FOLLOW UP WITH A BREASTFEEDING EDUCATOR IN THE NEXT WEEK. PATIENT WILL BE DISCHARGED TO THE ED. INSTRUCTIONS WERE GIVEN, QUESTIONS WERE ANSWERED, PATIENT REPORTS UNDERSTANDING AND AGREES WITH THE PLAN. I, ANKITA VALENZUELA, DOCUMENTED THE ABOVE INFORMATION ACTING A SCRIBE FOR DR. MILLER. I HAVE REVIEWED THE ABOVE DOCUMENT, WRITTEN BY ANKITA PALMER AND I VERIFY THAT IT IS ACCURATE. PROCEDURE CODES FA211 ESTABILISHED PATIENT [facility] FACILITY CHARGE [id number] DOC MEDS VERIFIED W/PT OR RE [id number] PAIN ASSESS POS TOOL F/U PLAN DOC DISPOSITION & COMMUNICATION TEST PT WAS SEEN BY DR. MILLER, PT STATED SHE JUST DIDN'T FEEL WELL, PT C/O HEART PALPITATIONS, B/P ELEVATED, PT WAS SENT TO ER BY DR. MILLER. NURSE TO NURSE REPORT GIVEN TO CAITLIN MCGINNIS, CHARGE NURSE OF ER. PT ASSIGNED TO RM 12. PT BROUGHT TO ER VIA WHEELCHAIR, ASSISTED TO BED AND MONITOR PLACED ON PT. PAIN VISIT HARDCOPY GIVEN TO CAITLIN MCGINNIS, RESTAURANT HOSPITALITY MANAGER, HE IS AWARE OF PT ARRIVAL. FOLLOW UP 1 WEEK ELECTRONICALLY SIGNED BY ARELIS MILLER MD ON 11/06/2016 AT 06:49 PM EDT DISCLAIMER : THIS IS A VISIT SUMMARY EXTRACTED FROM THE [employer] CHART. IT IS NOT A COPY OF THE [employer] PROGRESS NOTE. [facility]D
== END | disposition home or self-care (01) ==
LOC: M PAIN 10:30
PROVIDERS: ATTEND Anesthesiology
DX: G89.29 Other chronic pain (principal); M79.1 Myalgia; G43.909 Migraine, unspecified, not intractable, without status migrainosus; R32 Unspecified urinary incontinence; F33.9 Major depressive disorder, recurrent, unspecified; E78.5 Hyperlipidemia, unspecified; E55.9 Vitamin D deficiency, unspecified; I48.91 Unspecified atrial fibrillation; K21.9 Gastro-esophageal reflux disease without esophagitis; Z79.899 Other long term (current) drug therapy; Z79.01 Long term (current) use of anticoagulants; Z88.1 Allergy status to other antibiotic agents; Z88.5 Allergy status to narcotic agent; Z88.8 Allergy status to other drugs, medicaments and biological substances; Z91.013 Allergy to seafood

== ENCOUNTER → 2016-11-09 | Outpatient (CLI) | payer OTHER, MEDICAID ==
[~2016-11-09] MED LIST changes: +ATOR40TA75 PO; +CARA1TAB6 PO; +OMEP20CA3 PO; +PANT40TA2 PO; +PAXI30TA11 PO; +PERCOCET PO; +PROT1TAB2 PO; +SUCR1TA PO
--- NOTE | 2016-11-28 01:00 | ECWPNPC ---
PATIENT NAME: SMITH VIVEROS : 1965 GENDER: FEMALE VISIT DATE: 11/09/2016 DISCHARGE DATE: 11/09/16 1128 VISIT LOCKED DATE TIME: PHYSICIAN: ROCÍO GALDAMEZ RESOURCE: ROCÍO GALDAMEZ REASON FOR APPOINTMENT 1. NECK PAIN HISTORY OF PRESENT ILLNESS HISTORY OF PRESENT ILLNESS: PAIN THE PATIENT DESCRIBES THE PAIN... FALL RISK SCREENING: SCREENING :NO FALLS IN THE PAST YEAR TODAY'S VISIT: NOTES: RATES PAIN TODAY 10. DESCRIBES PAIN CONSTANT, ACHING, BURNING, SHARP AND STABBING TENDER AND THROBBING. WAS SEEN ON 10/20/[address] MILLER WHO DECLINED TO MAKE ANY MED ADJUSTMENTS DUE TO HER CARDIAC ISSUES. SHE WAS TO GO TO THE ER THAT DAY DUE TO PALPITATIONS. DID HAVE TRIGGER POINTS 10/05/16 WITH STEROIDS. THIS WAS HELPFUL UNTIL SHE TWISTED HER NECK. GRIFFIN HAD MORE EPISODES OF CHEST PAIN. EXTENSIVE WORKUP DEMONSTRATED HIATAL HERNIA. TO SEE NEW PCP AT [facility] NEXT WEEK. . CURRENT MEDICATIONS TAKING BLOOD PRESSURE CUFF - MISCELLANEOUS DIRECTED _ DAILY TAKING ELIQUIS 5 MG TABLET 1 TAB(S) ORALLY TWICE DAILY TAKING PAROXETINE HCL 30 MG TABLET 1 TABLET IN THE MORNING ORALLY ONCE A DAY TAKING ATORVASTATIN CALCIUM 40 MG TABLET 1 TABLET ORALLY ONCE A DAY TAKING LISINOPRIL 10 MG TABLET DIRECTED ORALLY DAILY TAKING VISTARIL 25 MG CAPSULE 1 CAPSULE NEEDED ORALLY TWICE DAILY NEEDED TAKING PROTONIX 40 MG TABLET DELAYED RELEASE 1 TABLET ORALLY ONCE A DAY TAKING CARAFATE 1 GM TABLET 1 TABLET ON AN EMPTY STOMACH ORALLY TWICE A DAY NOT-TAKING PRILOSEC 20 MG CAPSULE DELAYED RELEASE 1 CAPSULE ORALLY TWICE DAILY NOT-TAKING LIDOCAINE 4 % CREAM 1 APPLICATION TO AFFECTED AREA NEEDED EXTERNALLY APPLY SMALL AMOUNTS THREE TIMES A DAY TO PAINFUL AREAS OF SHOULDERS AND NECK NOT-TAKING TIZANIDINE HCL 4 MG TABLET 1 TABLET NEEDED ORALLY EVERY 8 HRS NOT-TAKING KETOROLAC TROMETHAMINE 10 MG TABLET 1 TABLET WITH FOOD OR MILK NEEDED ORALLY EVERY 6 HRS PRN FOR PAIN MDD2 NOT-TAKING GABAPENTIN 100 MG CAPSULE 1 TABLET ORALLY THREE TIMES DAILY, NOTES: 05/18 6AM NOT-TAKING TRAMADOL HCL 50 MG TABLET 1-2 TABLET NEEDED ORALLY EVERY 8 HRS MDD=3 NOT-TAKING TRAMADOL HCL 50 MG TABLET 1 TABLET NEEDED ORALLY TWICE DAILY NEEDED, NOTES: 2016 MEDICATION LIST REVIEWED AND RECONCILED WITH THE PATIENT PAST MEDICAL HISTORY FIBROMYALGIA DX 4 YEARS AGO, BEING FOLLOWED AT PAIN CLINIC MIGRAINE HEADACHE STRESS INCONTINENCE DEPRESSION HYPERLIPIDEMIA VITAMIN D DEFICIENCY AFIB GERD INTERMITTENT A FIB ALLERGIES ZIPSOR: ALLERGY FLEXERIL: AGGITATION: ALLERGY LYRICA: ANAPHYLAXIS: ALLERGY DICLOFENAC POTASSIUM: AGGITATION (ZIPSOR): ALLERGY BACTRIM: NAUSEA/VOMITING: ALLERGY SHELL FISH: SWELLS, HIVES: ALLERGY CYMBALTA: NAUSEA/VOMITING: SIDE EFFECTS AMITRIPTYLINE: AGGITATION: SIDE EFFECTS GABAPENTIN: HALLUCINATIONS: SIDE EFFECTS TRAMADOL HCL: HALLUCINATIONS: SIDE EFFECTS TIZANIDINE HCL: HIVES: ALLERGY KETOROLAC TROMETHAMINE: STOMACH PAIN: ALLERGY SURGICAL HISTORY TUBAL LIGATION 1988 DISTAL 4TH FINGER REPAIR SECONDARY TO TRAUMATIC INJURY BENIGN TUMOR REMOVAL RIGHT LEG DENTAL SURGERIES CHOLECYSTECTOMY 05/2014 HYSTERECTOMY STILL HAS 1 OVARY BUT NOT SURE WHICH ONE 2012 ABSCESS R GROIN 2014 HOSPITALIZATION/MAJOR DIAGNOSTIC PROCEDURE ABOVE SURGERIES MRSA RIGHT GROIN 2014, C DIFF 2014 REVIEW OF SYSTEMS REVIEWED BY: PROVIDER: ROCÍO ELISEP . CONSTITUTIONAL: ANY CHANGE IN YOUR MEDICAL CONDITION? NO . CHILLS NO . FEVER NO . INFECTION: DO YOU HAVE NEW INFECTIONS? NO . DO YOU HAVE HISTORY OF MRSA? NO . MUSCULOSKELETAL: ANY NEW PATTERNS OF PAIN OR NUMBNESS? NO . GASTROENTEROLOGY: ANY NEW CHANGE IN BOWEL CONTROL? NO . GENITOURINARY: ANY NEW CHANGE IN BLADDER CONTROL? NO . IS THERE A CHANCE YOU COULD BE ? NO . HEMATOLOGY/LYMPH: DO YOU TAKE ANY BLOOD THINNERS? (FOR EXAMPLE- COUMADIN, PLAVIX, AGGRENOX, PLATEL, PRADAXA, OR XARELTO) YES, ELAQUIS . WHEN WAS YOUR LAST DOSE? DATE: TIME: . NEUROLOGY: HAVE YOU FALLEN IN THE PAST 6 MONTHS? YES, LEGS GAVE OUT, PT WENT TO [facility] ER BECAUSE SHE IS ON ELAQUIS . ANY NEW EXTREMITY NUMBNESS OR WEAKNESS? NO . CARDIOLOGY: DO YOU HAVE A PACEMAKER OR DEFIBRILLATOR? NO . RESPIRATORY: HAVE YOU BEEN SICK IN THE PAST WEEK? NO . FEVER NO . FLU LIKE SYMPTOMS? NO . COUGH NO . INTEGUMENTARY: DO YOU HAVE ANY RASHES OR OPEN SORES? YES, FLEA BITES ALL OVER . ALLERGIC/IMMUNO: ARE YOU ALLERGIC TO SHELLFISH OR IV DYE? YES, SHELLFISH . ANY NEW ALLERGIES? NO . PSYCHIATRIC: DO YOU HAVE THOUGHTS OF HURTING YOURSELF OR SOMEONE ELSE? NO . ARE YOU ABUSED, NEGLECTED, OR IN AN UNSAFE ENVIRONMENT? NO . ENDOCRINOLOGY: ARE YOU DIABETIC? NO . OTHER: DO YOU NEED ANY PRESCRIPTIONS? NO . IF YES, PLEASE LIST: ____ . ANY NEW PROBLEMS WITH YOUR MEDICATIONS? NO . WHEN DID YOU LAST EAT? ____ . WHEN DID YOU LAST DRINK? ____ . WHAT DID YOU LAST DRINK? ____ . NAME OF PERSON DRIVING YOU HOME? ____ . DO YOU HAVE ANY OTHER QUESTIONS OR CONCERNS NO . VITAL SIGNS WT 255 LBS, HT 61 IN, BMI 48.18 INDEX, BP 143/93 MM HG, HR 100 /MIN, RR 16 /MIN, TEMP 98.4 F, OXYGEN SAT % 95, REVIEWED BY: EM. EXAMINATION GENERAL EXAMINATION: PSYCHALERT , ORIENTED X 3 , APPROPRIATE MOOD AND AFFECT . LUNGS:FEW SCATTERED WHEEZES. HEART:HEART RATE REGULAR, RAPID. MUSCULOSKELETAL:TRIGGER POINTS AND TIGHT FIBEROUS BANDS IDENTIFIED OVER :CERVICAL ARASPINOUS AND TRAPEZIOUS MUSCLES. DECREASED ROM WITH NECK EXTENSION, FLEX AND ROTATION. SKIN:HIVES/URTICARIA OVER HANDSFOREARMS AND UPPER ARMS WELL FACE. NOT VISIBLE ON ABD OR LEGS. . ASSESSMENTS MYALGIA - M79.1 (PRIMARY) TREATMENT MYALGIA TRIGGER POINT 3 + ROCÍO LIRA 11/09/2016 11:20:50 AM > NECK/SHOULDERS NOTES: RESTART BENEDRYL CREAM TO HIVES. DISCUSS HIVES WITH NEW PRIMARY. PROCEDURE CODES FA211 ESTABILISHED PATIENT [facility] CHARGE DISPOSITION & COMMUNICATION FOLLOW UP SCHED IN 3 WEEKS (REASON: CHECK AUTH FOR TPI) ELECTRONICALLY SIGNED BY MAXIMILIANO NOEL ON 11/27/2016 AT 09:19 AM EDT DISCLAIMER : THIS IS A VISIT SUMMARY EXTRACTED FROM THE [employer] CHART. IT IS NOT A COPY OF THE [email or web address] PROGRESS NOTE. RITA
== END | disposition home or self-care (01) ==
LOC: M PAIN 11:00
PROVIDERS: ATTEND Nurse Practitioner Family
DX: G89.29 Other chronic pain (principal); M79.1 Myalgia; G43.909 Migraine, unspecified, not intractable, without status migrainosus; N39.3 Stress incontinence (female) (male); F33.9 Major depressive disorder, recurrent, unspecified; E78.5 Hyperlipidemia, unspecified; E55.9 Vitamin D deficiency, unspecified; I48.91 Unspecified atrial fibrillation; K21.9 Gastro-esophageal reflux disease without esophagitis; Z79.899 Other long term (current) drug therapy; Z79.01 Long term (current) use of anticoagulants; Z88.1 Allergy status to other antibiotic agents; Z88.5 Allergy status to narcotic agent; Z88.8 Allergy status to other drugs, medicaments and biological substances; Z91.013 Allergy to seafood; Z87.891 Personal history of nicotine dependence

== ENCOUNTER → 2016-11-27 | Outpatient (CLI) | payer MEDICAID, OTHER ==
[~2016-11-27] MED LIST changes: +BUPIVACAINE HCL 0.25% 10 ML VIAL As Ordered ONE; +BUPIVACAINE HCL 0.25% 30 ML VIAL As Ordered ONE; +TRIAMCINOLONE ACETONIDE SUSP 40 MG/ML VIAL (J3301) As Ordered ONE; +diazePAM 5 MG TAB As Ordered ONE; +diphenhydrAMINE 25 MG CAP As Ordered ONE; +oxyCODONE 5MG TAB As Ordered ONE
--- NOTE | 2016-11-28 00:27 | ECWPNPC ---
PATIENT NAME: SMITH VIVEROS : 1965 GENDER: FEMALE VISIT DATE: 11/27/2016 DISCHARGE DATE: 11/27/161533 VISIT LOCKED DATE TIME: PHYSICIAN: ARELIS MILLER RESOURCE: ARELIS MILLER REASON FOR APPOINTMENT 1. TPI, NECK/ SHOULDER HISTORY OF PRESENT ILLNESS HISTORY OF PRESENT ILLNESS: PAIN THE PATIENT DESCRIBES THE PAIN... FALL RISK SCREENING: SCREENING :NO FALLS IN THE PAST YEAR CURRENT MEDICATIONS TAKING BLOOD PRESSURE CUFF - MISCELLANEOUS DIRECTED _ DAILY TAKING ELIQUIS 5 MG TABLET 1 TAB(S) ORALLY TWICE DAILY, NOTES: 11-27-16699 TAKING PAROXETINE HCL 30 MG TABLET 1 TABLET IN THE MORNING ORALLY ONCE A DAY, NOTES: 11-26-162099 TAKING ATORVASTATIN CALCIUM 40 MG TABLET 1 TABLET ORALLY ONCE A DAY, NOTES: 11-26-162099 TAKING LISINOPRIL 10 MG TABLET DIRECTED ORALLY DAILY, NOTES: 11-26-162099 TAKING VISTARIL 25 MG CAPSULE 1 CAPSULE NEEDED ORALLY TWICE DAILY NEEDED, NOTES: NONE COUPLE DAYS TAKING PROTONIX 40 MG TABLET DELAYED RELEASE 1 TABLET ORALLY ONCE A DAY, NOTES: 11-27-16699 TAKING CARAFATE 1 GM TABLET 1 TABLET ON AN EMPTY STOMACH ORALLY TWICE A DAY, NOTES: 11-26-162099 DISCONTINUED PRILOSEC 20 MG CAPSULE DELAYED RELEASE 1 CAPSULE ORALLY TWICE DAILY DISCONTINUED LIDOCAINE 4 % CREAM 1 APPLICATION TO AFFECTED AREA NEEDED EXTERNALLY APPLY SMALL AMOUNTS THREE TIMES A DAY TO PAINFUL AREAS OF SHOULDERS AND NECK DISCONTINUED TIZANIDINE HCL 4 MG TABLET 1 TABLET NEEDED ORALLY EVERY 8 HRS DISCONTINUED KETOROLAC TROMETHAMINE 10 MG TABLET 1 TABLET WITH FOOD OR MILK NEEDED ORALLY EVERY 6 HRS PRN FOR PAIN MDD2 DISCONTINUED GABAPENTIN 100 MG CAPSULE 1 TABLET ORALLY THREE TIMES DAILY, NOTES: 05/18 6AM DISCONTINUED TRAMADOL HCL 50 MG TABLET 1-2 TABLET NEEDED ORALLY EVERY 8 HRS MDD=3 DISCONTINUED TRAMADOL HCL 50 MG TABLET 1 TABLET NEEDED ORALLY TWICE DAILY NEEDED, NOTES: 2016 MEDICATION LIST REVIEWED AND RECONCILED WITH THE PATIENT PAST MEDICAL HISTORY FIBROMYALGIA DX 4 YEARS AGO, BEING FOLLOWED AT PAIN CLINIC MIGRAINE HEADACHE STRESS INCONTINENCE DEPRESSION HYPERLIPIDEMIA VITAMIN D DEFICIENCY AFIB GERD INTERMITTENT A FIB ALLERGIES ZIPSOR: ALLERGY FLEXERIL: AGGITATION: ALLERGY LYRICA: ANAPHYLAXIS: ALLERGY DICLOFENAC POTASSIUM: AGGITATION (ZIPSOR): ALLERGY BACTRIM: NAUSEA/VOMITING: ALLERGY SHELL FISH: SWELLS, HIVES: ALLERGY CYMBALTA: NAUSEA/VOMITING: SIDE EFFECTS AMITRIPTYLINE: AGGITATION: SIDE EFFECTS GABAPENTIN: HALLUCINATIONS: SIDE EFFECTS TRAMADOL HCL: HALLUCINATIONS: SIDE EFFECTS TIZANIDINE HCL: HIVES: ALLERGY KETOROLAC TROMETHAMINE: STOMACH PAIN: ALLERGY SOCIAL HISTORY GENERAL: TOBACCO USE ARE YOU A:FORMER SMOKER HOW LONG HAS IT BEEN SINCE YOU LAST SMOKED?> 10 YEARS BMI CARE GOAL FOLLOW-UP ABOVE NORMAL BMI FOLLOW-UPLIFESTYLE EDUCATION REGARDING DIET ALCOHOL SCREENING DID YOU HAVE A DRINK CONTAINING ALCOHOL IN THE PAST YEAR?NO POINTS0 INTERPRETATIONNEGATIVE RECREATIONAL DRUG USE DRUG USE?NO CAFFEINE CAFFEINE USE?YES HIV / HEP-C SCREENING HIV TEST OFFERED TO PATIENT:NO HEP-C TEST OFFERED TO PATIENT:NO OCCUPATION: UNEMPLOYED. DIET: REGULAR. EXERCISE: NO REGULAR EXERCISE. MARITAL STATUS: .. OTHERS AT HOME: [id number], BROTHER, NEPHEW AND BOYFRIEND. PETS: 8-DOGS, 2-CATS. CHRISTIANITY NO SIKHISM BELIEFS THAT WOULD IMPACT HEALTH CARE. LANGUAGE AMHARIC. LEARNING BARRIERS / SPECIAL NEEDS CHANGE FROM LAST VISIT?NO BARRIERS TO LEARNING?NO HEARING IMPAIRED?NO VISION IMPAIRED?YES COGNITIVELY IMPAIRED?NO :CORRECTIVE LENSES READINESS TO LEARN?YES LEARNING PREFERENCES?NO LEARNING CAPABILITIES PRESENT?YES EMOTIONAL BARRIERS?NO SPECIAL DEVICES?NO NEW PATIENT PAIN DIARY TODAY'S VISIT NOTES, FROM 0-10, WHAT LEVEL IS YOUR PAIN TODAY? 0. PAIN CLINIC PFS, CLERGY, PUBLIC HEALTH REFERRALS PFS REFERRAL NEEDED?NO CLERGY REFERRAL NEEDED?NO PUBLIC HEALTH REFERRAL NEEDED?NO HAS THE PATIENT BEEN EDUCATED REGARDING HIS/HER PLAN OF CARE?YES PLEASE DOCUMENT ANY ADDTIONAL DETAILS. REVIEWED PROCEDURE EFFECTS EXPECTED HAS THE PATIENT BEEN EDUCATED REGARDING PAIN, THE RISK FOR PAIN, THE IMPORTANCE OF EFFECTIVE PAIN MANAGEMENT, AND THE PAIN ASSESSMENT PROCESS?YES REVIEW OF SYSTEMS REVIEWED BY: PROVIDER: . CONSTITUTIONAL: ANY CHANGE IN YOUR MEDICAL CONDITION? NO . CHILLS NO . FEVER NO . INFECTION: DO YOU HAVE NEW INFECTIONS? NO . DO YOU HAVE HISTORY OF MRSA? NO . MUSCULOSKELETAL: ANY NEW PATTERNS OF PAIN OR NUMBNESS? NO . GASTROENTEROLOGY: ANY NEW CHANGE IN BOWEL CONTROL? NO . GENITOURINARY: ANY NEW CHANGE IN BLADDER CONTROL? NO . IS THERE A CHANCE YOU COULD BE ? NO . HEMATOLOGY/LYMPH: DO YOU TAKE ANY BLOOD THINNERS? (FOR EXAMPLE- COUMADIN, PLAVIX, AGGRENOX, PLATEL, PRADAXA, OR XARELTO) YES ELIQUIS . WHEN WAS YOUR LAST DOSE? DATE: TIME: 11-27-16 07 . NEUROLOGY: HAVE YOU FALLEN IN THE PAST 6 MONTHS? NO . ANY NEW EXTREMITY NUMBNESS OR WEAKNESS? NO . CARDIOLOGY: DO YOU HAVE A PACEMAKER OR DEFIBRILLATOR? NO . RESPIRATORY: HAVE YOU BEEN SICK IN THE PAST WEEK? NO . FEVER NO . FLU LIKE SYMPTOMS? NO . COUGH NO . INTEGUMENTARY: DO YOU HAVE ANY RASHES OR OPEN SORES? YES, HAS A RASH THAT ITCHES. DR MILLER AWARE. . ALLERGIC/IMMUNO: ARE YOU ALLERGIC TO SHELLFISH OR IV DYE? YES, SHELLFISH . ANY NEW ALLERGIES? NO . PSYCHIATRIC: DO YOU HAVE THOUGHTS OF HURTING YOURSELF OR SOMEONE ELSE? NO . ARE YOU ABUSED, NEGLECTED, OR IN AN UNSAFE ENVIRONMENT? NO . ENDOCRINOLOGY: ARE YOU DIABETIC? YES . OTHER: DO YOU NEED ANY PRESCRIPTIONS? NO . IF YES, PLEASE LIST: ____ . ANY NEW PROBLEMS WITH YOUR MEDICATIONS? NO . WHEN DID YOU LAST EAT? 11-26-16 6 PM . WHEN DID YOU LAST DRINK? 11-27-16 0700 . WHAT DID YOU LAST DRINK? WATER . 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 DO YOU HAVE ANY OTHER QUESTIONS OR CONCERNS NO . VITAL SIGNS WT 255 LBS, HT 61 IN, BMI 48.18 INDEX, BP 179/98 MM HG, HR 90 /MIN, RR 18 /MIN, TEMP 98.6 F, OXYGEN SAT % 97%, NA INITIALS SC 11:35, REVIEWED BY: CM. ASSESSMENTS MYALGIA - M79.1 (PRIMARY) PROCEDURES PN TRIGGER POINT INJECTION WITH STEROIDS PRE PROCEDURE DIAGNOSIS 1. MYALGIA 2. PAIN AT BILATERAL NECK AREA POST PROCEDURE DIAGNOSIS 1. MYALGIA 2. PAIN AT BILATERAL NECK AREA PROCEDURE TRIGGER POINT INJECTION AT BILATERAL NECK AREA SURGEON DR. ARELIS MILLER GRAIN LOADER NONE ANESTHESIA LOCAL PRE PROCEDURE NOTE THE PATIENT HAS A HISTORY OF CHRONIC PAIN AT THE RIGHT AND LEFT NECK AREA. I EVALUATE THE PATIENT AND REVIEWED THE CHART. THERE IS EVIDENCE OF BANDS OF TISSUE WITH RESTRICTION OF MOVEMENT AND PRESENCE OF TRIGGER POINT AT THE AFFECTED AREA. I WENT OVER THE RISKS, ALTERNATIVES, AND BENEFITS ASSOCIATED WITH THIS PROCEDURE. THE PATIENT WOULD LIKE TO PROCEED AND GIVE CONSENT TO PERFORMED THE PROCEDURE. THE PATIENT DENIES UNEXPLAINABLE WEIGHT LOSS, FEVER, CHILLS, OR NEW CHANGES IN URINARY OR BOWEL CONTROL DESCRIPTION OF PROCEDURE THE PATIENT WAS BROUGHT TO THE PROCEDURE ROOM AND PLACED IN THE SITTING POSITION. THE AREA WAS CLEANED WITH ALCOHOL. THE PROCEDURE WAS DONE USING [employer] STERILE TECHNIQUE. I CHECKED LATERALITY AND THE LEVEL WHERE THE PROCEDURE WAS GOING TO BE PERFORMED WITH THE PATIENT AND THE SUPPORTING STAFF AT THE MOMENT OF THE TIME OUT IN THE PROCEDURE ROOM. USING A 25-GAUGE NEEDLE, TRIGGER POINTS WERE INJECTED AT THE RIGHT AND LEFT CERVICAL AREA WITH A TOTAL OF 40 ML OF BUPIVACAINE 0.25% AND KENALOG 40 MG. THERE WAS NO EVIDENCE OF BLOOD, PARESTHESIA OR CEREBROSPINAL FLUID DURING THE PROCEDURE. THE PATIENT WAS SENT TO THE RECOVERY ROOM. THE PATIENT WAS MOVING THE EXTREMITIES AND DOING WELL. THERE WAS NO COMPLICATION DURING THE PROCEDURE POST PROCEDURE NOTE THE PATIENT WILL BE SEEN IN A FOLLOW UP IN THE NEXT FEW WEEKS. INSTRUCTIONS WERE GIVEN, QUESTIONS WERE ANSWERED, AND THE PATIENT EXPRESSED UNDERSTANDING AND AGREES WITH THE PLAN. I, ANKITA VALENZUELA, DOCUMENTED THE ABOVE INFORMATION ACTING A SCRIBE FOR DR. MILLER. I HAVE REVIEWED THE ABOVE DOCUMENT, WRITTEN BY ANKITA PALMER AND I VERIFY THAT IT IS ACCURATE PROCEDURE CODES 73620 INJ TRIGGER POINT 03/13 [facility] DISPOSITION & COMMUNICATION FOLLOW UP 3 WEEKS ELECTRONICALLY SIGNED BY ARELIS MILLER MD ON 11/27/2016 AT 06:26 PM EDT DISCLAIMER : THIS IS A VISIT SUMMARY EXTRACTED FROM THE [employer] CHART. IT IS NOT A COPY OF THE [employer] PROGRESS NOTE. [facility]
== END ==
LOC: M PAIN 11:30
PROVIDERS: ATTEND Anesthesiology
DX: G89.29 Other chronic pain (principal); M79.1 Myalgia; M54.2 Cervicalgia; I10 Essential (primary) hypertension; F41.9 Anxiety disorder, unspecified; Z87.891 Personal history of nicotine dependence; Z79.899 Other long term (current) drug therapy; Z88.8 Allergy status to other drugs, medicaments and biological substances; Z88.1 Allergy status to other antibiotic agents; Z91.013 Allergy to seafood
CPT/HCPCS: 20552; J3301

== ENCOUNTER → 2016-12-26 | Outpatient (CLI) | payer OTHER ==
[~2016-12-26] MED LIST changes: -BUPIVACAINE HCL 0.25% 10 ML VIAL As Ordered ONE; -BUPIVACAINE HCL 0.25% 30 ML VIAL As Ordered ONE; -TRIAMCINOLONE ACETONIDE SUSP 40 MG/ML VIAL (J3301) As Ordered ONE; -diazePAM 5 MG TAB As Ordered ONE; -diphenhydrAMINE 25 MG CAP As Ordered ONE; -oxyCODONE 5MG TAB As Ordered ONE
--- NOTE | 2016-12-26 23:16 | ECWPNPC ---
PATIENT NAME: SMITH VIVEROS : 1965 GENDER: FEMALE VISIT DATE: 12/26/2016 DISCHARGE DATE: 12/26/16 162 VISIT LOCKED DATE TIME: PHYSICIAN: ARELIS MILLER RESOURCE: ARELIS MILLER REASON FOR APPOINTMENT 1. INCREASED NECK PAIN HISTORY OF PRESENT ILLNESS FALL RISK SCREENING: SCREENING :NO FALLS IN THE PAST YEAR THE PATIENT RECEIVED A TRIGGER POINT INJECTION AT THE NECK AREA A MONTH AGO THAT WORK VERY WELL FOR HER UNTIL YESTERDAY. YESTERDAY SHE DID A SUDDEN MOVEMENT THAT INDICATE A SHARP DISCOMFORT AT THE RIGHT NECK AREA. SHE DESCRIBE THE PAIN ACHING SHARP TENDER WITH A PAIN SCORE 8/10. SHE DENIES NEW NEUROLOGICAL SYMPTOMS. SHE DENIES NEW PAIN DOWN HER ARMS. SHE DENIES NEW PATTERNS OF PAIN OR NUMBNESS. PAIN SCREENING: PATIENT HAS A COMPLAINT OF ACUTE OR CHRONIC PAIN :YES CURRENT MEDICATIONS TAKING BLOOD PRESSURE CUFF - MISCELLANEOUS DIRECTED _ DAILY TAKING VISTARIL 25 MG CAPSULE 1 CAPSULE NEEDED ORALLY TWICE DAILY NEEDED, NOTES: 12/25 TAKING NITROGLYCERIN 0.4 MG TABLET SUBLINGUAL DIRECTED SUBLINGUAL EVERY 5 MIN: MDD 3 TABLETS, NOTES: 2 WEEKS TAKING RANITIDINE HCL 300 MG CAPSULE 1 CAPSULE AT BEDTIME ORALLY ONCE A DAY, NOTES: 12/25 TAKING TRIAMCINOLONE ACETONIDE 0.1 % CREAM 1 APPLICATION TO AFFECTED AREA EXTERNALLY TO ARMS AND LEGS TWICE A DAY, NOTES: 12/25 TAKING PAROXETINE HCL 30 MG TABLET 1 TABLET IN THE MORNING ORALLY ONCE A DAY, NOTES: 12/26 TAKING ATORVASTATIN CALCIUM 40 MG TABLET 1 TABLET ORALLY ONCE A DAY, NOTES: 12/25 TAKING LISINOPRIL 10 MG TABLET DIRECTED ORALLY DAILY, NOTES: 12/26 TAKING ELIQUIS 5 MG TABLET 1 TAB(S) ORALLY TWICE DAILY, NOTES: 12/25 MEDICATION LIST REVIEWED AND RECONCILED WITH THE PATIENT PAST MEDICAL HISTORY FIBROMYALGIA DX 4 YEARS AGO, BEING FOLLOWED AT PAIN CLINIC MIGRAINE HEADACHE STRESS INCONTINENCE DEPRESSION HYPERLIPIDEMIA VITAMIN D DEFICIENCY AFIB GERD INTERMITTENT A FIB ALLERGIES ZIPSOR: ALLERGY FLEXERIL: AGGITATION: ALLERGY LYRICA: ANAPHYLAXIS: ALLERGY DICLOFENAC POTASSIUM: AGGITATION (ZIPSOR): ALLERGY BACTRIM: NAUSEA/VOMITING: ALLERGY SHELL FISH: SWELLS, HIVES: ALLERGY CYMBALTA: NAUSEA/VOMITING: SIDE EFFECTS AMITRIPTYLINE: AGGITATION: SIDE EFFECTS GABAPENTIN: HALLUCINATIONS: SIDE EFFECTS TRAMADOL HCL: HALLUCINATIONS: SIDE EFFECTS TIZANIDINE HCL: HIVES: ALLERGY KETOROLAC TROMETHAMINE: STOMACH PAIN: ALLERGY SURGICAL HISTORY TUBAL LIGATION 1988 DISTAL 4TH FINGER REPAIR SECONDARY TO TRAUMATIC INJURY BENIGN TUMOR REMOVAL RIGHT LEG DENTAL SURGERIES CHOLECYSTECTOMY 05/2014 HYSTERECTOMY STILL HAS 1 OVARY BUT NOT SURE WHICH ONE 2012 ABSCESS R GROIN 2014 FAMILY HISTORY FATHER: , PNEUMONIA, CHF, NEUROPATHY, BLOOD CLOT MOTHER: , CANCER SIBLINGS: ALIVE, LUPUS, DIABETES SON(S): ALIVE DAUGHTER(S): ALIVE 1 BROTHER(S) , 5 SISTER(S) . 1 SON(S) , 1 DAUGHTER(S) - HEALTHY. SOCIAL HISTORY GENERAL: TOBACCO USE ARE YOU A:FORMER SMOKER HOW LONG HAS IT BEEN SINCE YOU LAST SMOKED?> 10 YEARS BMI CARE GOAL FOLLOW-UP ABOVE NORMAL BMI FOLLOW-UPLIFESTYLE EDUCATION REGARDING DIET ALCOHOL SCREENING DID YOU HAVE A DRINK CONTAINING ALCOHOL IN THE PAST YEAR?NO POINTS0 INTERPRETATIONNEGATIVE RECREATIONAL DRUG USE DRUG USE?NO CAFFEINE CAFFEINE USE?YES SEXUAL HX HAD SEX IN THE LAST 12 MONTHS (VAGINAL, ORAL, OR ANAL)?NO HAVE YOU EVER HAD AN STD?NO HIV / HEP-C SCREENING HIV TEST OFFERED TO PATIENT:NO HEP-C TEST OFFERED TO PATIENT:NO OCCUPATION: UNEMPLOYED. DIET: REGULAR. EXERCISE: NO REGULAR EXERCISE. MARITAL STATUS: .. OTHERS AT HOME: [id number], BROTHER, NEPHEW AND BOYFRIEND. PETS: 8-DOGS, 2-CATS. JAIN NO HINDU BELIEFS THAT WOULD IMPACT HEALTH CARE. LANGUAGE TAMAZIGHT. LEARNING BARRIERS / SPECIAL NEEDS CHANGE FROM LAST VISIT?NO BARRIERS TO LEARNING?NO HEARING IMPAIRED?NO VISION IMPAIRED?YES :CORRECTIVE LENSES COGNITIVELY IMPAIRED?NO READINESS TO LEARN?YES LEARNING PREFERENCES?NO LEARNING CAPABILITIES PRESENT?YES EMOTIONAL BARRIERS?NO SPECIAL DEVICES?NO NEW PATIENT PAIN DIARY TODAY'S VISIT NOTES, FROM 0-10, WHAT LEVEL IS YOUR PAIN TODAY? 0. PAIN CLINIC PFS, CLERGY, PUBLIC HEALTH REFERRALS PFS REFERRAL NEEDED?NO CLERGY REFERRAL NEEDED?NO PUBLIC HEALTH REFERRAL NEEDED?NO WAS THE PROVIDER NOTIFIED OF ANY PERTINENT INFO?YES HAS THE PATIENT BEEN EDUCATED REGARDING HIS/HER PLAN OF CARE?YES PLEASE DOCUMENT ANY ADDTIONAL DETAILS. INCREASED PAIN HAS THE PATIENT BEEN EDUCATED REGARDING PAIN, THE RISK FOR PAIN, THE IMPORTANCE OF EFFECTIVE PAIN MANAGEMENT, AND THE PAIN ASSESSMENT PROCESS?YES REVIEWED BY: JOHNNIE. HOSPITALIZATION/MAJOR DIAGNOSTIC PROCEDURE ABOVE SURGERIES MRSA RIGHT GROIN 2015, C DIFF 2015 CHEST PAIN 10/20/2016 REVIEW OF SYSTEMS REVIEWED BY: PROVIDER: ARELIS MILLER MD . CONSTITUTIONAL: ANY CHANGE IN YOUR MEDICAL CONDITION? NO . CHILLS NO . FEVER NO . INFECTION: DO YOU HAVE NEW INFECTIONS? NO . DO YOU HAVE HISTORY OF MRSA? NO . MUSCULOSKELETAL: ANY NEW PATTERNS OF PAIN OR NUMBNESS? NO . SYTEMIC LUPUS NO . GASTROENTEROLOGY: ANY NEW CHANGE IN BOWEL CONTROL? NO . BARRETTS ESOPHAGUS NO . CIRRHOSIS NO . HEPATITIS NO . LIVER FAILURE NO . ACID REFLUX NO . UNEXPLAINED WEIGHT LOSS NO . GENITOURINARY: ANY NEW CHANGE IN BLADDER CONTROL? NO . IS THERE A CHANCE YOU COULD BE ? NO . HEMATOLOGY/LYMPH: DO YOU TAKE ANY BLOOD THINNERS? (FOR EXAMPLE- COUMADIN, PLAVIX, AGGRENOX, PLATEL, PRADAXA, OR XARELTO) YES, . WHEN WAS YOUR LAST DOSE? 12/25/16 8PM . LOW PLATELET COUNT NO . SICKLE CELL DISEASE NO . VON WILLIEBRANDS NO . FACTOR V LEIDEN NO . THALLASEMIA NO . ANEMIA NO . EASY BRUISING NO . NEUROLOGY: HAVE YOU FALLEN IN THE PAST 6 MONTHS? NO . ANY NEW EXTREMITY NUMBNESS OR WEAKNESS? NO . HEAD INJURY NO . DEMENTIA NO . CEREBRAL PALSY NO . MULTIPLE SCLEROSIS NO . DIZZINESS NO . HEADACHE NO . STROKES NO . VERTIGO NO . CARDIOLOGY: DO YOU HAVE A PACEMAKER OR DEFIBRILLATOR? NO . ANGINA NO . HEART ATTACK NO . HEART SURGERY NO . CONGESTIVE HEART FAILURE/FLUID OVERLOAD NO . CHEST PAIN NO . HIGH BLOOD PRESSURE NO . IRREGULAR HEART BEAT NO . RESPIRATORY: HAVE YOU BEEN SICK IN THE PAST WEEK? NO . FEVER NO . FLU LIKE SYMPTOMS? NO . CPAP NO . BYPAP NO . ASTHMA NO . EMPHYSEMA NO . CHRONIC LUNG DISEASES NO . SHORTNESS OF BREATH ON EXERTION NO . COUGH NO . SNORING NO . INTEGUMENTARY: DO YOU HAVE ANY RASHES OR OPEN SORES? NO . ALLERGIC/IMMUNO: ARE YOU ALLERGIC TO SHELLFISH OR IV DYE? YES, SHELLFISH . ANY NEW ALLERGIES? NO . PSYCHIATRIC: DO YOU HAVE THOUGHTS OF HURTING YOURSELF OR SOMEONE ELSE? NO . ARE YOU ABUSED, NEGLECTED, OR IN AN UNSAFE ENVIRONMENT? NO . ENDOCRINOLOGY: ARE YOU DIABETIC? NO . THYROID DISORDER NO . OTHER: DO YOU NEED ANY PRESCRIPTIONS? NO . IF YES, PLEASE LIST: ____ . ANY NEW PROBLEMS WITH YOUR MEDICATIONS? NO . WHEN DID YOU LAST EAT? 12/25 8PM . WHEN DID YOU LAST DRINK? 12/26 7AM . WHAT DID YOU LAST DRINK? WATER . NAME OF PERSON DRIVING YOU HOME? CAB . DO YOU HAVE ANY OTHER QUESTIONS OR CONCERNS NO . VITAL SIGNS WT 251.4 LBS, HT 61 IN, BMI 47.50 INDEX, BP 144/82 MM HG, HR 75 /MIN, RR 18 /MIN, TEMP 97.4 F, OXYGEN SAT % 97%, SAFE IN ENV? (Y/N) DS, NA INITIALS AW, REVIEWED BY: JOHNNIE. EXAMINATION : THE PATIENT IS ALERT OX3 AND COOPERATIVE. THERE IS TENDERNESS AT THE RIGHT NECK AREA. NO OTHER NEW MUSCULOSKELETAL OR NEUROLOGICAL FINDINGS. ASSESSMENTS MYALGIA - M79.1 (PRIMARY) NECK PAIN. TREATMENT MYALGIA CLINICAL NOTES: I EXPLAINED TO MS. CHARLES THAT WE SHOULD OBSERVE HOW SHE DOES WITH HER NECK PAIN IN THE FOLLOWING DAYS. THE PAIN STARTED YESTERDAY AFTER A SUDDEN MOVEMENT BUT IS AT THE MOMENT TO EARLY TO ADVICE A SPECIFIC COURSE E OF ACTION. SHE SHOULD REST AND AVOID FORCING THE AREA. IF SYMPTOMS GET WORST SHE SHOULD CONTACT US. I EXPECT THIS AREA TO GET BETTER IN THE NEXT FEW DAYS. INSTRUCTIONS WHERE GIVEN QUESTIONS WHERE ANSWERED AND THE PATIENT REPORTS UNDERSTANDING. PROCEDURE CODES FA211 ESTABILISHED PATIENT [facility] CHARGE DISPOSITION & COMMUNICATION FOLLOW UP 3 WEEKS ELECTRONICALLY SIGNED BY ARELIS MILLER MD ON 12/26/2016 AT 09:32 PM EDT DISCLAIMER : THIS IS A VISIT SUMMARY EXTRACTED FROM THE [employer] CHART. IT IS NOT A COPY OF THE [email or web address] PROGRESS NOTE. MTDD
== END ==
LOC: M PAIN 13:30
PROVIDERS: ATTEND Anesthesiology
DX: M79.1 Myalgia (principal); E78.5 Hyperlipidemia, unspecified; I10 Essential (primary) hypertension; I48.0 Paroxysmal atrial fibrillation; F32.9 Major depressive disorder, single episode, unspecified; F41.9 Anxiety disorder, unspecified; L25.9 Unspecified contact dermatitis, unspecified cause; Z87.891 Personal history of nicotine dependence; Z79.899 Other long term (current) drug therapy; Z88.1 Allergy status to other antibiotic agents; Z88.5 Allergy status to narcotic agent; Z88.8 Allergy status to other drugs, medicaments and biological substances; Z91.013 Allergy to seafood

== ENCOUNTER 2017-01-15 12:42 | Observation (INO) | payer OTHER ==
[~2017-01-15] VITALS: Ht 157.5 cm; Wt 114.6 kg
[~2017-01-15 12:42] MED LIST changes: -CARA1TAB6 PO; -PERCOCET PO; -PROT1TAB2 PO
[2017-01-15 13:41] LABS: BASO % 0.4 % (0.0-1.0); EOS # 0.1 10^3/uL (0.0-0.50); EOS % 1.2 % (0.0-3.0); IMMATURE GRANULOCYTE % 0.2 % (0-0); LYMPH # 1.6 10^3/uL (1.5-4.5); LYMPH % 32.9 % (24.0-44.0); MEAN CORPUSCULAR HEMOGLOBIN 29.7 pg (27.0-33.0); MEAN CORPUSCULAR HGB CONC 33.5 g/dl (32.0-36.5); MEAN CORPUSCULAR VOLUME 88.7 fl (80.0-96.0); MONO # 0.4 10^3/uL (0.0-0.8); MONO % 7.7 % (0.0-5.0); NEUTROPHILS # 2.9 10^3/uL (1.8-7.7); NEUTROPHILS % 57.6 % (36.0-66.0); PLATELET COUNT, AUTOMATED 215 10^3/uL (150-450); RED CELL DISTRIBUTION WIDTH 13.2 % (11.5-14.5)
--- NOTE | 2017-01-15 13:57 | REP ---
AP PORTABLE CHEST: 01/15/2017 COMPARISON: 10/20/2016 CTA chest and chest x-ray. CLINICAL HISTORY: Chest pain. FINDINGS. Lordotic AP portable chest exaggerates heart size but no gross cardiomegaly, effusion, infiltrate, atelectasis or mass. There is no vascular redistribution or pulmonary edema. No widening the mediastinum. Aorta and airway intact. IMPRESSION: 1. Negative lordotic portable chest. No definite infiltrate or effusion. Heart size magnified by projection. No gross cardiomegaly or edema. Signed by Maicol Rush MD 01/15/2017 02:35 P
[2017-01-15 14:13] LABS: ALKALINE PHOSPHATASE 123 U/L (45-117); ALT/SGPT 28 U/L (12-78); AST/SGOT 22 U/L (7-37); BILIRUBIN,DIRECT < 0.1 MG/DL (0.0-0.2); BILIRUBIN,TOTAL 0.3 MG/DL (0.2-1.0); BLOOD UREA NITROGEN 6 MG/DL (7-18); CALCIUM LEVEL 8.7 MG/DL (8.5-10.1); CARBON DIOXIDE LEVEL 28 MEQ/L (21-32); CREATININE FOR GFR 0.95 MG/DL (0.55-1.02); GLUCOSE, FASTING 83 MG/DL (70-105); POTASSIUM SERUM 3.8 MEQ/L (3.5-5.1); SODIUM LEVEL 142 MEQ/L (136-145); TOTAL PROTEIN 6.5 GM/DL (6.4-8.2)
[2017-01-15] MEDS ORDERED: ISOVUE-370 76% 100ML VIAL (Q9967) As Ordered ONE (14:34)
--- NOTE | 2017-01-15 15:05 | REP ---
Right upper extremity duplex venous ultrasound: History: There extremity pain. Question DVT. Comparison study August 08, 2015. Findings: The right internal jugular, axillary, brachial, basilic, and cephalic veins are anechoic and compressible in the left upper extremity. Color flow imaging is homogeneous. Spectral Doppler interrogation is unremarkable. There is no evidence of right upper extremity venous thrombosis. Impression: Negative right upper extremity duplex venous ultrasound. No evidence of venous thrombosis. Signed by Dominic Chao MD 01/15/2017 02:56 P
--- NOTE | 2017-01-15 15:22 | REP ---
CT PULMONARY ANGIOGRAM: With IV contrast. HISTORY: Chest pain, shortness of breath. COMPARISON STUDIES: October 20, 2016. Contrast dose: 75 mL of Isovue [address] TECHNIQUE: Helical scanning is acquired and overlapping 1.5 mm and contiguous 3 mm axial images are reformatted. In addition, a 3D work station is deployed to generate thick slab maximum intensity projection images in sagittal and coronal imaging projections. CT PULMONARY ANGIOGRAPHIC FINDINGS: There is good opacification of the pulmonary arterial tree. There is no CT evidence of pulmonary embolism. The thoracic aorta enhances homogeneously and is normal in coarse, caliber and contour. No pleural effusion or pericardial effusion is seen. No hilar or mediastinal mass or adenopathy is observed. There is a granulomatous calcification in the right upper lobe. There is another calcified granuloma in the left lower lobe. These are unchanged. Maximal intensity projection images show no evidence of vessel cutoff or filling defect. No bony destructive lesion is seen. No infiltrate is noted. IMPRESSION: 1. No CT evidence of pulmonary embolism. 2. No active disease. Signed by Dominic Chao MD 01/15/2017 03:44 P
[2017-01-15] MEDS ORDERED: ONDANSETRON 4MG/2ML VIAL (J2405) IV ONE (15:30)
[2017-01-15] MEDS ORDERED: MORPHINE 4 MG/ML 1ML SYRINGE IV ONE ×2 (15:30→18:15)
[2017-01-15 18:52] LABS: ALBUMIN 3.1 GM/DL (3.2-5.2); ALBUMIN/GLOBULIN RATIO 0.91 (1.00-1.93); ANION GAP 7 MEQ/L (8-16); CHLORIDE LEVEL 107 MEQ/L (98-107)
[2017-01-15] MEDS ORDERED: ONDANSETRON 4MG/2ML VIAL (J2405) IV PRN (21:30)
[2017-01-15] MEDS ORDERED: ACETAMINOPHEN 325 MG TAB PO ONE (21:45)
[2017-01-15] MEDS ORDERED: GI COCKTAIL 50ML BTL(HYOSCYAMINE/MAALOX/LIDOCAINE VISCOUS)(1:3:1) PO PRN (21:45)
[2017-01-15] MEDS ORDERED: KETOROLAC 30 MG/ML VIAL (J1885) IV ONE (21:45)
[2017-01-15] MEDS ORDERED: SUCRALFATE 1 GM TAB PO ONE (21:45)
[2017-01-15] MEDS ORDERED: CARA1TAB6 PO (22:00)
[2017-01-15] MEDS ORDERED: ELIQ5TAB PO (22:00)
[2017-01-15] MEDS ORDERED: ATOR40TA75 PO (22:00)
[2017-01-15] MEDS ORDERED: PROT1TAB2 PO (22:00)
[2017-01-15] MEDS ORDERED: VIST25CA PO (22:00)
[2017-01-15] MEDS ORDERED: LISI10TA4 PO (22:00)
[2017-01-15] MEDS ORDERED: PAXI30TA11 PO (22:00)
[2017-01-16] VITALS (7 sets, daily range): BP systolic 105–134; BP diastolic 57–77
[2017-01-16] MEDS ORDERED: NITROGLYCERIN 0.4 MG SUBL TABLET SL STA (00:19)
[2017-01-16] MEDS: NS 1,000 ML IV SCH ×2 (00:23→10:37)
[2017-01-16] MEDS ORDERED: METOCLOPRAMIDE INJ 10MG/2ML VIAL (J2765) IV ONE (00:30)
[2017-01-16] MEDS ORDERED: MORPHINE 2 MG/ML 1ML SYRINGE IV PRN (00:30)
[2017-01-16] MEDS ORDERED: NITROGLYCERIN 0.4 MG SUBL TABLET SL PRN (00:30)
[2017-01-16] MEDS ORDERED: METOCLOPRAMIDE INJ 10MG/2ML VIAL (J2765) IV PRN (00:30)
[2017-01-16] MEDS ORDERED: GI COCKTAIL 50ML BTL(HYOSCYAMINE/MAALOX/LIDOCAINE VISCOUS)(1:3:1) PO ONE (00:30)
[2017-01-16] MEDS ORDERED: hydrOXYzine 25 MG TAB PO PRN (00:30)
[2017-01-16] MEDS ORDERED: MORPHINE 4 MG/ML 1ML SYRINGE IV ONE (00:30)
[2017-01-16] MEDS ORDERED: GI COCKTAIL 50ML BTL(HYOSCYAMINE/MAALOX/LIDOCAINE VISCOUS)(1:3:1) PO PRN (00:30)
[2017-01-16] MEDS ORDERED: FIORICET TAB PO ONE (00:30)
[2017-01-16] MEDS ORDERED: SUCRALFATE 1 GM TAB PO ONE (00:30)
--- NOTE | 2017-01-16 01:59 | HPE ---
DATE OF ADMISSION: 01/15/2017 PRIMARY CARE PHYSICIAN: [facility] Dr. Nakita Niño. CHIEF COMPLAINT: Chest pain. HISTORY OF PRESENTING ILLNESS: This is a 51-year-old obese female with history of atrial fibrillation, peptic ulcer disease, hyperlipidemia, fibromyalgia,migraine headaches, presents to the emergency room with 3-day history of increasing epigastric abdominal pain, which she describes as sharp, occurs at any time and exertional in nature, lasts for several hours. No improvement with Tylenol or nitroglycerin at home. She describes the pain as intermittent, right sided, radiation to the right arm and the right neck, accompanied with some nausea. No vomiting. No shortness of breath or palpitations. Patient had a prior esophagogastroduodenoscopy (EGD) in [place] with no Helicobacter (H) pylori. Was treated with Protonix and Carafate. She has had a 15-pound weight loss, but denies any odynophagia, dysphagia, upper or lower gastrointestinal (GI ) bleed, melena, black tarry stools, hematemesis or bright red blood per rectum. Patient had a recent stress test 1 year ago, Dr. Santillan. She was told that she had cardiomegaly, but no ischemic disease and did not require a cardiac catheterization. Patient continues to take Protonix 40 twice a day and Eliquis 5 mg twice a day and appears to be compliant with her medications. EKG in the emergency room (ER) shows sinus rhythm, ventricular rate of 83, with no acute ST-T wave changes. Troponin is negative times two sets. CT of the chest shows no pulmonary embolism. No dissection. Blood pressure on admission is 116/56. Patient insisted on being admitted to the hospital despite negative findings due to complaints of persistent chest pain. PAST MEDICAL HISTORY: 1. Fibromyalgia diagnosed 4 years ago, followed at the pain clinic. 2. Migraine headaches. 3. Stress incontinence. 4. Depression. 5. Hyperlipidemia. 6. Atrial fibrillation on chronic Eliquis. 7. Vitamin D deficiency. 8. Reflux disease. 9. Intermittent atrial fibrillation. PAST SURGICAL HISTORY: 1. Tubal ligation 1987. 2. Distal finger repair secondary to traumatic injury. 3. Benign tumor removal on the right leg. 4. Dental surgeries. 5. Cholecystectomy May 2014. 6. Hysterectomy with one ovary, not sure which one 2012. 7. Abscess in the right groin 2014. SOCIAL HISTORY: Former smoker, has not smoked in over 10 years. Denies any alcohol use. , lives with [id number], brother, nephew and boyfriend, eight dogs and two cats. FAMILY HISTORY: Father with pneumonia, congestive heart failure (CHF), neuropathy and a blood clot. Mother with cancer. Sibling alive with lupus and diabetes. Has five sisters, one brother, one son and a daughter, both of which are healthy. HOME MEDICATIONS: - Eliquis 5 mg twice a day - atorvastatin 40 mg nightly - hydroxyzine 25 mg as needed for anxiety - lisinopril 10 mg nightly - duloxetine 30 mg daily - Carafate 1 gram by mouth before food and nightly - Protonix 40 mg twice a day REVIEW OF SYSTEMS: Per history of present illness (HPI), 12-point system otherwise negative. PHYSICAL EXAMINATION: VITAL SIGNS: Temperature 98, pulse 88 sinus rhythm, respiratory rate 16, blood pressure 116/67, 90% on room air. Body mass index (BMI) 46.4. GENERAL: Patient is awake, alert, oriented times three, answering questions appropriately. No use of respiratory accessory muscles. Speaks in full sentences. HEENT: Face is symmetric. Pupils are round and reactive to light and accommodation. Extraocular muscles are intact. No cervical lymphadenopathy, thyromegaly, pharyngeal erythema. Moist mucous membranes. No jugular venous distention. LUNGS: Clear to auscultation. No wheezing, rales or rhonchi. HEART: S1, S2, sinus rhythm. ABDOMEN: Obese, soft, nontender, nondistended. EXTREMITIES: No pitting edema. EKG sinus rhythm, ventricular rate of 83, no acute ST or T-wave changes. White count 5, hemoglobin 13, hematocrit 39, platelet count 215, 57% neutrophils. Sodium 142, potassium 3.8, chloride 107, bicarbonate 28, BUN 6, creatinine 0.95, glucose 83, calcium 8.7, total bilirubin 0.3, direct bilirubin less than 0.1, AST 22, ALT 28, alkaline phosphatase 123, total CK 90, MB fraction 1, troponin less than 0.02. Second set of troponin less than 0.02, MB fraction of 1, total CK of 80, BNP is 175, total protein 6.5, albumin 3.1, lipase 209, TSH 3.03. CT of the chest shows no pulmonary embolism, no active disease, granulomatous calcification right upper lobe, another calcified granuloma in the left lower lobe. No infiltrate is noted. Venous Doppler of lower extremity negative DVT. ASSESSMENT AND PLAN: This is a 51-year-old female with history of paroxysmal atrial fibrillation on chronic Eliquis, reflux disease, vitamin D deficiency, depression, migraines, hyperlipidemia, stress incontinence, fibromyalgia, morbid obesity, body mass index (BMI) 46.4, probable obstructive sleep apnea, previous smoker, presented to the emergency room with 3-day history of ongoing epigastric chest pain radiating up the right neck, down the right arm accompanied with nausea, no vomiting. Patient was seen in the emergency room, was found to have negative troponin, EKG. CT was negative for pulmonary embolism (PE), acute infiltrate or edema. Hospitalist service was called to admit due to complaints of 15-pound weight loss and ongoing chest pain. Patient will be admitted for observation, assigned to Dr. Glenna Lowe for the following issues: 1. Atypical chest pain. Patient describes epigastric pain, which is radiating up the right neck, down the right arm, which is reproducible on palpation, most likely costochondritis versus severe reflux disease. There is possible peptic ulcer disease. Patient complains of weight loss, but no odynophagia or dysphagia. Patient might benefit from esophagogastroduodenoscopy (EGD) evaluation for atypical chest pain. If negative, may consider monometry. She has not had any positive troponins. EKG is unremarkable for any acute ischemia. CT of the chest is also negative for pulmonary embolism, pneumonia, or effusion. No signs of dissection. Blood pressure is within normal limits. Patient will be given Toradol, morphine and Percocet for symptomatic relief. There are no ST elevations on EKG to suggest pericarditis. At this time, if workup is negative overnight with cardiac markers, she may be discharged home tomorrow morning. 2. History of migraine headaches. Patient has no history of coronary artery disease (CAD) or myocardial infarction (IN). May give Fioricet and triptan if needed. Will give Toradol for now and Reglan. 3. Morbid obesity complicating issues. BMI of 46.4. 4. Fibromyalgia. No acute issues. 5. Stress incontinence. No complaints. 6. Dyslipidemia. Continue on atorvastatin. 7. Hypertension. Continue on lisinopril with holding parameters. 8. Vitamin D deficiency. Outpatient followup. 9. Intermittent atrial fibrillation. Currently not on any rate control medication. Continue on Eliquis. 10. Reflux disease. Continue on Carafate and proton pump inhibitor (PPI) twice a day. 11. Deep venous thrombosis (DVT) prophylaxis with subcutaneous heparin. Patient will be assigned to Dr. Glenna Lowe at 7 a.m. on 01/16/2017. MTDD
[2017-01-16] MEDS: APIXABAN 5 MG TAB (ELIQUIS) PO SCH ×3 (02:11→20:11)
[2017-01-16] MEDS: ATORVASTATIN 20 MG TAB PO SCH ×2 (02:13→20:11)
[2017-01-16] MEDS: LISINOPRIL 10 MG TAB PO SCH ×2 (02:13→20:11)
[2017-01-16] MEDS: PANTOPRAZOLE 40MG TAB (PROTONIX) PO SCH ×3 (02:15→20:11)
[2017-01-16] MEDS: KETOROLAC 30 MG/ML VIAL (J1885) IV SCH ×4 (05:30→21:37)
[2017-01-16] MEDS: HEPARIN SOD (PORCINE) 5000 UNITS/ML VIAL SC SCH ×3 (05:31→20:11)
[2017-01-16 06:08] LABS: BASO % 0.5 % (0.0-1.0); EOS # 0.1 10^3/uL (0.0-0.50); EOS % 2.2 % (0.0-3.0); IMMATURE GRANULOCYTE % 0.3 % (0-0); LYMPH # 1.5 10^3/uL (1.5-4.5); LYMPH % 40.7 % (24.0-44.0); MEAN CORPUSCULAR HEMOGLOBIN 29.4 pg (27.0-33.0); MEAN CORPUSCULAR HGB CONC 32.3 g/dl (32.0-36.5); MEAN CORPUSCULAR VOLUME 90.8 fl (80.0-96.0); MONO # 0.4 10^3/uL (0.0-0.8); MONO % 9.4 % (0.0-5.0); NEUTROPHILS # 1.7 10^3/uL (1.8-7.7); NEUTROPHILS % 46.9 % (36.0-66.0); PLATELET COUNT, AUTOMATED 195 10^3/uL (150-450); RED CELL DISTRIBUTION WIDTH 13.5 % (11.5-14.5); WHITE BLOOD COUNT 3.7 10^3/uL (4.0-10.0)
[2017-01-16 06:47] LABS: ANION GAP 6 MEQ/L (8-16); BLOOD UREA NITROGEN 9 MG/DL (7-18); CALCIUM LEVEL 8.2 MG/DL (8.5-10.1); CARBON DIOXIDE LEVEL 30 MEQ/L (21-32); CHLORIDE LEVEL 105 MEQ/L (98-107); CREATININE FOR GFR 1.05 MG/DL (0.55-1.02); GLOMERULAR FILTRATION RATE 58.8 (>51); GLUCOSE, FASTING 100 MG/DL (70-105); POTASSIUM SERUM 3.5 MEQ/L (3.5-5.1); SODIUM LEVEL 141 MEQ/L (136-145)
[2017-01-16] MEDS: SUCRALFATE 1 GM TAB PO SCH ×4 (08:30→20:11)
[2017-01-16] MEDS: PARoxetine 10MG TABLET PO SCH (08:30)
[2017-01-16] MEDS: PERCOCET 5MG/325MG TAB PO PRN ×2 (08:32→16:41)
[2017-01-16] MEDS ORDERED: PANTOPRAZOLE 40MG TAB (PROTONIX) PO SCH (09:00)
--- NOTE | 2017-01-16 09:07 | ECGEPIP ---
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
--- NOTE | 2017-01-16 09:12 | ECGEPIP ---
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
--- NOTE | 2017-01-16 15:36 | IPN ---
DATE: 01/16/2017 SUBJECTIVE: The patient is seen and examined in the room today. The patient continued to complain about the right chest pain with radiation to the right shoulder. The patient has been having a similar pain since yesterday evening time. The patient does not feel that it is related to the oral intake. The pain is reproducible with direct pressure. OBJECTIVE: VITAL SIGNS: Temperature is 97.5, pulse is 86, respiratory rate 20, blood pressure is 129/77, pulse oximetry is 95% in room air. GENERAL: No sign of acute distress, alert and oriented times three. HEENT: Normocephalic, atraumatic. Extraocular motor grossly intact. CARDIOVASCULAR: Positive S1, S2, regular rate. LUNGS: Clear to auscultation bilaterally. ABDOMEN: Soft, nontender, nondistended. Bowel sounds present. MUSCULOSKELETAL: Tenderness to palpation of the right chest. The patient's symptoms are able to be reproduced with direct pressure in the right mid chest. EXTREMITIES: No extremity edema. No sign of cyanosis. ASSESSMENT AND PLAN: 1. Right-sided chest pain. Since the patient arrived at [facility] Emergency Room, the patient had four EKGs. All of the EKGs were reviewed. There is no abnormality noted. The patient also had troponin times five which all remain negative. The patient also had a CT angiogram performed which also is negative for pulmonary embolism (PE) and there is no acute disease process noted. The patient's right-sided chest pain is not likely related to reflux disease because the onset does not correlate with oral intake. The patient's right chest pain is also able to be reproduced with direct pressure Most likely, it could be musculoskeletal-related pain. Per the patient, the patient stated that the pain is not controlled. The patient cannot manage her daily activity functions with the current pain. It is not likely that the patient's pain is related to a cardiovascular disease and the patient does not require telemetry. The patient will be in the medical-surgical floor or the progressive care unit (PCU). 2. History of migraine headache, stable. 3. Morbid obesity. Body mass index (BMI) of 46.2. 4. Fibromyalgia. 5. Stress incontinence. 6. Dyslipidemia, on atorvastatin. 7. Hypertension. Blood pressure in the satisfactory range. 8. History of atrial fibrillation, on Eliquis. The patient had multiple EKGs since admission. The patient has been in sinus rhythm. 9. Gastroesophageal reflux disease, on proton pump inhibitor (PPI) and Carafate. 10. Deep vein thrombosis (DVT) prophylaxis. The patient is on Eliquis. DISPOSITION: The patient presented to [facility] for right-sided chest pain. Multiple diagnostic tests and imaging studies were performed and cardiac-related cause was ruled out. Currently, the patient is complaining about pain not very well-controlled. The patient will be downgraded to medical/surgical floor and we will continue to treat the patient for one more day. We anticipate that discharge will be tomorrow.
--- NOTE | 2017-01-16 20:27 | ECGEPIP ---
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
--- NOTE | 2017-01-16 20:31 | ECGEPIP ---
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
[2017-01-17] MEDS: KETOROLAC 30 MG/ML VIAL (J1885) IV SCH ×2 (03:50→10:36)
[2017-01-17 05:13] VITALS: BP 118/61
[2017-01-17] MEDS: HEPARIN SOD (PORCINE) 5000 UNITS/ML VIAL SC SCH (05:18)
[2017-01-17] MEDS: PERCOCET 5MG/325MG TAB PO PRN (05:18)
[2017-01-17 05:54] LABS: BASO % 0.4 % (0.0-1.0); EOS # 0.1 10^3/uL (0.0-0.50); EOS % 3.2 % (0.0-3.0); IMMATURE GRANULOCYTE % 0.4 % (0-0); LYMPH # 1.3 10^3/uL (1.5-4.5); LYMPH % 46.1 % (24.0-44.0); MEAN CORPUSCULAR HEMOGLOBIN 29.2 pg (27.0-33.0); MEAN CORPUSCULAR HGB CONC 32.7 g/dl (32.0-36.5); MEAN CORPUSCULAR VOLUME 89.5 fl (80.0-96.0); MONO # 0.3 10^3/uL (0.0-0.8); MONO % 9.5 % (0.0-5.0); NEUTROPHILS # 1.2 10^3/uL (1.8-7.7); NEUTROPHILS % 40.4 % (36.0-66.0); PLATELET COUNT, AUTOMATED 177 10^3/uL (150-450); RED CELL DISTRIBUTION WIDTH 13.2 % (11.5-14.5); WHITE BLOOD COUNT 2.8 10^3/uL (4.0-10.0)
[2017-01-17 06:11] LABS: ANION GAP 7 MEQ/L (8-16); BLOOD UREA NITROGEN 15 MG/DL (7-18); CALCIUM LEVEL 8.3 MG/DL (8.5-10.1); CARBON DIOXIDE LEVEL 27 MEQ/L (21-32); CHLORIDE LEVEL 107 MEQ/L (98-107); CREATININE FOR GFR 0.96 MG/DL (0.55-1.02); GLOMERULAR FILTRATION RATE > 60.0 (>51); GLUCOSE, FASTING 96 MG/DL (70-105); POTASSIUM SERUM 3.9 MEQ/L (3.5-5.1); SODIUM LEVEL 141 MEQ/L (136-145)
[2017-01-17] MEDS: PANTOPRAZOLE 40MG TAB (PROTONIX) PO SCH (08:42)
[2017-01-17] MEDS: APIXABAN 5 MG TAB (ELIQUIS) PO SCH (08:43)
[2017-01-17] MEDS: PARoxetine 10MG TABLET PO SCH (08:43)
[2017-01-17] MEDS: SUCRALFATE 1 GM TAB PO SCH (08:43)
[2017-01-17] MEDS ORDERED: PERCOCET PO (08:54)
[2017-01-17] MEDS ORDERED: INFLUENZA QUADRIVALENT PF VACCINE 0.5ML SYRINGE (90686) IM ONE (09:00)
[2017-01-17] MEDS ORDERED: PERC5TAB12 PO (10:51)
--- NOTE | 2017-01-17 18:50 | DSES ---
DATE OF ADMISSION: 01/15/2017 DATE OF DISCHARGE: 01/17/2017 PRIMARY CARE PROVIDER: Dr. Nakita Niño CONSULTANTS: None. PROCEDURES: None. DISCHARGE DIAGNOSES: 1. Left-sided chest pain, most likely secondary to musculoskeletal cause. 2. History of migraine headaches. 3. Morbid obesity with body mass index of 46.2. 4. Fibromyalgia. 5. Stress incontinence. 6. Dyslipidemia. 7. Hypertension. 8. History of atrial fibrillation, on Eliquis. 9. Gastroesophageal reflux disease. HOSPITALIZATION COURSE: Patient is a 51-year-old female who presented to [facility] on 01/15/2017 for worsening right-sided sharp chest pain. EKG in emergency showed normal sinus rhythm with no significant ST or T-wave abnormalities. Initial set of troponins was negative. Due to excruciating pain, patient was admitted on telemetry, and patient was continued to trend the cardiac enzymes. Multiple sets of EKGs were also performed since admission. Pain medication is prescribed to the patient due to subjective severe pain. Later, patient had four sets of negative troponins. Four sets of EKGs were also performed, which all came back negative, and the patient's right-sided chest pain was determined to be musculoskeletal cause, and patient was continued on the short-term narcotic treatment. On 01/17/2017 patient determined medically stable for discharge with recommendation to continue on narcotic pain medication for short-term use only. Patient is recommended to followup with primary care provider in 1-2 weeks. OBJECTIVE: VITAL SIGNS: Temperature is 98.2, pulse is 79, respirations 20, blood pressure is 118/61, pulse oximetry 97% in room air. LABORATORY DATA: WBC 2.8, hemoglobin 11.4, hematocrit is 34.9, platelet count is 177. Sodium is 141, potassium 3.9, chloride 107, carbon dioxide is 27, BUN 15, creatinine 0.96, GFR is greater than 60, fasting glucose 96, calcium is 8.3. Troponin I is negative times four sets. IMAGING STUDIES: Portable chest x-ray: No definitive infiltrate or effusion. No gross cardiomegaly or edema. Right upper extremity Doppler showed negative right upper extremity duplex venous ultrasound. No evidence of venous thrombosis. CT angiogram of the chest showed CT evidence of pulmonary embolism. No acute disease. DISCHARGE MEDICATIONS: - Percocet one tablet by mouth every 6 hours as needed, short-term usage only - Eliquis 5 mg by mouth twice a day - atorvastatin 40 mg by mouth at bedtime - hydroxyzine 25 mg by mouth daily as needed for anxiety - lisinopril 10 mg by mouth at bedtime - Protonix 40 mg by mouth twice a day - Paxil 30 mg by mouth daily - Carafate 1 gram by mouth before food and at bedtime DISCHARGE INSTRUCTIONS: Discontinue line. Discharge home. Activity as tolerated. Low-salt diet as tolerated. Patient is recommended to followup with her primary care provider in 1 week. DISCHARGE CONDITION: Stable. DISCHARGE TIME: Greater than 30 minutes.
== END 2017-01-17 10:56 | disposition home or self-care (01) ==
LOC: EDBD 12:42 → M ED 12:42 → M ED INP 21:28 → M PCU 01-16 00:53 → M MSPAV 01-17 07:23
PROVIDERS: ADMIT General Practice; ATTEND Internal Medicine
DX: R07.89 Other chest pain (principal); G43.909 Migraine, unspecified, not intractable, without status migrainosus; E66.01 Morbid (severe) obesity due to excess calories; M79.7 Fibromyalgia; N39.3 Stress incontinence (female) (male); E78.4 Other hyperlipidemia; I10 Essential (primary) hypertension; I48.91 Unspecified atrial fibrillation; Z79.02 Long term (current) use of antithrombotics/antiplatelets; K21.9 Gastro-esophageal reflux disease without esophagitis; Z79.899 Other long term (current) drug therapy; E55.9 Vitamin D deficiency, unspecified; Z87.891 Personal history of nicotine dependence
CPT/HCPCS: 36415; 71010; 71275; 80048; 80076; 82550; 82553; 83690; 83880; 84443; 85025; 85730; 90471; 90686; 93000; 93041; 93971; 94760; 96372; 96374; 96375; 96376; 99285; J1885; J2405; J2765; Q9967

== ENCOUNTER → 2017-02-07 | Outpatient (CLI) | payer OTHER ==
[~2017-02-07] MED LIST changes: +CARA1TAB6 PO; +PERCOCET PO; +PROT1TAB2 PO
--- NOTE | 2017-02-26 00:06 | ECWPNPC ---
PATIENT NAME: SMITH VIVEROS : 1965 GENDER: FEMALE VISIT DATE: 02/07/2017 DISCHARGE DATE: 02/07/17 1200 VISIT LOCKED DATE TIME: PHYSICIAN: ROCÍO GALDAMEZ RESOURCE: ROCÍO GALDAMEZ REASON FOR APPOINTMENT 1. MEDS HISTORY OF PRESENT ILLNESS HISTORY OF PRESENT ILLNESS: PAIN THE PATIENT DESCRIBES THE PAIN... FALL RISK SCREENING: SCREENING :NO FALLS IN THE PAST YEAR TODAY'S VISIT: NOTES: RATES PAIN TODAY 12/19. NOTES PAIN OVER NECK, LOW BACK, AND WITH RADIATION TO LEGS. WAS RECENTLY IN THE HOSPITAL FOR STERNAL AND RIGHT ARM PAIN. WAS WORKED UP FOR CARDIAC ISSUES BUT THIS WAS NEG. REMAINS ON BLOOD THINNER. HAD TRIGGER POINT INJECTIONS IN . . CURRENT MEDICATIONS TAKING BLOOD PRESSURE CUFF - MISCELLANEOUS DIRECTED _ DAILY TAKING NITROGLYCERIN 0.4 MG TABLET SUBLINGUAL DIRECTED SUBLINGUAL EVERY 5 MIN: MDD 3 TABLETS, NOTES: 2 WEEKS TAKING TRIAMCINOLONE ACETONIDE 0.1 % CREAM 1 APPLICATION TO AFFECTED AREA EXTERNALLY TO ARMS AND LEGS TWICE A DAY, NOTES: 12/25 TAKING RANITIDINE HCL 150 MG CAPSULE 2 CAPSULE ORALLY ONCE A DAY TAKING ELIQUIS 5 MG TABLET 1 TAB(S) ORALLY TWICE DAILY, NOTES: 12/25 TAKING ATORVASTATIN CALCIUM 40 MG TABLET 1 TABLET ORALLY ONCE A DAY, NOTES: 12/25 TAKING HYDROXYZINE HCL 25 MG TABLET 1 TABLET NEEDED ORALLY ONCE DAILY NEEDED TAKING PAROXETINE HCL 30 MG TABLET 1 TABLET IN THE MORNING ORALLY ONCE A DAY, NOTES: 12/26 TAKING PROTONIX 40 MG TABLET DELAYED RELEASE 1 TABLET ORALLY BID TAKING CARAFATE 1 GM TABLET 1 TABLET AT BEDTIME ON AN EMPTY STOMACH BEFORE MEALS ORALLY TWICE A DAY TAKING LISINOPRIL 10 MG TABLET 1 TAB ORALLY DAILY, NOTES: 12/26 NOT-TAKING VISTARIL 25 MG CAPSULE 1 CAPSULE NEEDED ORALLY TWICE DAILY NEEDED, NOTES: 12/25 MEDICATION LIST REVIEWED AND RECONCILED WITH THE PATIENT PAST MEDICAL HISTORY FIBROMYALGIA DX 4 YEARS AGO, BEING FOLLOWED AT PAIN CLINIC MIGRAINE HEADACHE STRESS INCONTINENCE DEPRESSION HYPERLIPIDEMIA VITAMIN D DEFICIENCY AFIB GERD INTERMITTENT A FIB STRESS INCONTINENCE, FEMALE CHRONIC PAIN SYNDROME UNSPECIFIED VITAMIN D DEFICIENCY MIGRAINE, UNSPECIFIED WITHOUT MENTION OF INTRACTABLE MIGRAINE WITHOUT MENTION OF STATUS MIGRAINOSUS ALLERGIES ZIPSOR: ALLERGY FLEXERIL: AGGITATION: ALLERGY LYRICA: ANAPHYLAXIS: ALLERGY DICLOFENAC POTASSIUM: AGGITATION (ZIPSOR): ALLERGY BACTRIM: NAUSEA/VOMITING: ALLERGY SHELL FISH: SWELLS, HIVES: ALLERGY CYMBALTA: NAUSEA/VOMITING: SIDE EFFECTS AMITRIPTYLINE: AGGITATION: SIDE EFFECTS GABAPENTIN: HALLUCINATIONS: SIDE EFFECTS TRAMADOL HCL: HALLUCINATIONS: SIDE EFFECTS TIZANIDINE HCL: HIVES: ALLERGY KETOROLAC TROMETHAMINE: STOMACH PAIN: ALLERGY SURGICAL HISTORY TUBAL LIGATION 1988 DISTAL 4TH FINGER REPAIR SECONDARY TO TRAUMATIC INJURY BENIGN TUMOR REMOVAL RIGHT LEG DENTAL SURGERIES CHOLECYSTECTOMY 05/2014 HYSTERECTOMY STILL HAS 1 OVARY BUT NOT SURE WHICH ONE 2012 ABSCESS R GROIN 2014 SOCIAL HISTORY GENERAL: TOBACCO USE ARE YOU A:FORMER SMOKER HOW LONG HAS IT BEEN SINCE YOU LAST SMOKED?> 10 YEARS BMI CARE GOAL FOLLOW-UP ABOVE NORMAL BMI FOLLOW-UPLIFESTYLE EDUCATION REGARDING DIET ALCOHOL SCREENING DID YOU HAVE A DRINK CONTAINING ALCOHOL IN THE PAST YEAR?NO POINTS0 INTERPRETATIONNEGATIVE RECREATIONAL DRUG USE DRUG USE?NO CAFFEINE CAFFEINE USE?YES SEXUAL HX HAD SEX IN THE LAST 12 MONTHS (VAGINAL, ORAL, OR ANAL)?NO HAVE YOU EVER HAD AN STD?NO HIV / HEP-C SCREENING HIV TEST OFFERED TO PATIENT:NO HEP-C TEST OFFERED TO PATIENT:NO OCCUPATION: UNEMPLOYED. DIET: REGULAR. EXERCISE: NO REGULAR EXERCISE. MARITAL STATUS: .. OTHERS AT HOME: [id number], BROTHER, NEPHEW AND BOYFRIEND. PETS: 8-DOGS, 2-CATS. GNOSTICIST NO RESTORATION BELIEFS THAT WOULD IMPACT HEALTH CARE. LANGUAGE [place]. LEARNING BARRIERS / SPECIAL NEEDS CHANGE FROM LAST VISIT?NO BARRIERS TO LEARNING?NO HEARING IMPAIRED?NO VISION IMPAIRED?YES COGNITIVELY IMPAIRED?NO :CORRECTIVE LENSES READINESS TO LEARN?YES LEARNING PREFERENCES?NO LEARNING CAPABILITIES PRESENT?YES EMOTIONAL BARRIERS?NO SPECIAL DEVICES?NO NEW PATIENT PAIN DIARY TODAY'S VISIT NOTES, FROM 0-10, WHAT LEVEL IS YOUR PAIN TODAY? 0. PAIN CLINIC PFS, CLERGY, PUBLIC HEALTH REFERRALS PFS REFERRAL NEEDED?NO CLERGY REFERRAL NEEDED?NO PUBLIC HEALTH REFERRAL NEEDED?NO WAS THE PROVIDER NOTIFIED OF ANY PERTINENT INFO?YES HAS THE PATIENT BEEN EDUCATED REGARDING HIS/HER PLAN OF CARE?YES PLEASE DOCUMENT ANY ADDTIONAL DETAILS. INCREASED PAIN HAS THE PATIENT BEEN EDUCATED REGARDING PAIN, THE RISK FOR PAIN, THE IMPORTANCE OF EFFECTIVE PAIN MANAGEMENT, AND THE PAIN ASSESSMENT PROCESS?YES REVIEWED BY: JOHNNIE. HOSPITALIZATION/MAJOR DIAGNOSTIC PROCEDURE ABOVE SURGERIES MRSA RIGHT GROIN 2015, C DIFF 2015 CHEST PAIN 10/20/2016 REVIEW OF SYSTEMS REVIEWED BY: PROVIDER: . CONSTITUTIONAL: ANY CHANGE IN YOUR MEDICAL CONDITION? YES . CHILLS NO . FEVER NO . INFECTION: DO YOU HAVE NEW INFECTIONS? NO . DO YOU HAVE HISTORY OF MRSA? NO . MUSCULOSKELETAL: ANY NEW PATTERNS OF PAIN OR NUMBNESS? YES . GASTROENTEROLOGY: ANY NEW CHANGE IN BOWEL CONTROL? NO . GENITOURINARY: ANY NEW CHANGE IN BLADDER CONTROL? NO . IS THERE A CHANCE YOU COULD BE ? NO . HEMATOLOGY/LYMPH: DO YOU TAKE ANY BLOOD THINNERS? (FOR EXAMPLE- COUMADIN, PLAVIX, AGGRENOX, PLATEL, PRADAXA, OR XARELTO) YES, ELIQUIS . WHEN WAS YOUR LAST DOSE? DATE: TIME: . NEUROLOGY: HAVE YOU FALLEN IN THE PAST 6 MONTHS? NO . ANY NEW EXTREMITY NUMBNESS OR WEAKNESS? NO . CARDIOLOGY: DO YOU HAVE A PACEMAKER OR DEFIBRILLATOR? NO . RESPIRATORY: HAVE YOU BEEN SICK IN THE PAST WEEK? NO . FEVER NO . FLU LIKE SYMPTOMS? NO . COUGH NO . INTEGUMENTARY: DO YOU HAVE ANY RASHES OR OPEN SORES? NO . ALLERGIC/IMMUNO: ARE YOU ALLERGIC TO SHELLFISH OR IV DYE? YES . ANY NEW ALLERGIES? NO . PSYCHIATRIC: DO YOU HAVE THOUGHTS OF HURTING YOURSELF OR SOMEONE ELSE? NO . ARE YOU ABUSED, NEGLECTED, OR IN AN UNSAFE ENVIRONMENT? NO . ENDOCRINOLOGY: ARE YOU DIABETIC? NO . OTHER: DO YOU NEED ANY PRESCRIPTIONS? NO . IF YES, PLEASE LIST: ____ . ANY NEW PROBLEMS WITH YOUR MEDICATIONS? NO . WHEN DID YOU LAST EAT? ____ . WHEN DID YOU LAST DRINK? ____ . WHAT DID YOU LAST DRINK? ____ . NAME OF PERSON DRIVING YOU HOME? ____ . DO YOU HAVE ANY OTHER QUESTIONS OR CONCERNS NO . VITAL SIGNS WT 248.8 LBS, HT 61 IN, BMI 47.01 INDEX, BP 131/65 MM HG, HR 87 /MIN, RR 18 /MIN, TEMP 97.1 F, OXYGEN SAT % 97%, NA INITIALS SC 11:24, REVIEWED BY: NL. EXAMINATION GENERAL EXAMINATION: PSYCHALERT , ORIENTED X 3 , APPROPRIATE MOOD AND AFFECT . LUNGS:FEW SCATTERED WHEEZES. HEART:HEART RATE REGULAR, RAPID. MUSCULOSKELETAL:TRIGGER POINTS AND TIGHT FIBEROUS BANDS IDENTIFIED OVER :CERVICAL PARASPINOUS AND TRAPEZIOUS MUSCLES. DECREASED ROM WITH NECK EXTENSION, FLEX AND ROTATION. ASSESSMENTS MYALGIA - M79.1 (PRIMARY) DEGENERATIVE JOINT DISEASE INVOLVING MULTIPLE JOINTS ON BOTH SIDES OF BODY - M15.9 FIBROMYALGIA - M79.7 TREATMENT MYALGIA TRIGGER POINT 3 + DIMITRIKIMBERLYROCÍO Zamudio 02/07/2017 11:49:18 AM > NECK - ON ELIQUIS NOTES: TALK TO DR SILVERMAN ABOUT FLIUD,TRIGGER POINT INJECTION MATERIAL WAS PRINTED. PREVENTIVE MEDICINE PAIN CLINIC TEACHING: PROCEDURE TEACHING REVIEWED TPI WITH PATIENT, WHICH SHE HAS HAD MULTIPLE TIMES. . PROCEDURE CODES FA211 ESTABILISHED PATIENT [facility] CHARGE [address] INJECT TRIGGER POINTS, =/> 3 DISPOSITION & COMMUNICATION FOLLOW UP AFTER INJECTION (REASON: CHECK AUTH FOR TPI - ON ELIQUIS) ELECTRONICALLY SIGNED BY MAXIMILIANO NOEL ON 02/25/2017 AT 04:36 PM EST DISCLAIMER : THIS IS A VISIT SUMMARY EXTRACTED FROM THE ECLINICALWORKS CHART. IT IS NOT A COPY OF THE ECLINICALWORKS PROGRESS NOTE. RITA
== END ==
LOC: M PAIN 10:30
PROVIDERS: ATTEND Nurse Practitioner Family
DX: G89.29 Other chronic pain (principal); M15.9 Polyosteoarthritis, unspecified; M79.7 Fibromyalgia; E78.5 Hyperlipidemia, unspecified; F41.9 Anxiety disorder, unspecified; F32.9 Major depressive disorder, single episode, unspecified; I10 Essential (primary) hypertension; I48.0 Paroxysmal atrial fibrillation; K21.9 Gastro-esophageal reflux disease without esophagitis; Z88.1 Allergy status to other antibiotic agents; Z88.8 Allergy status to other drugs, medicaments and biological substances; Z88.5 Allergy status to narcotic agent; Z91.013 Allergy to seafood; Z79.01 Long term (current) use of anticoagulants; Z79.899 Other long term (current) drug therapy; Z87.891 Personal history of nicotine dependence

== ENCOUNTER → 2017-02-21 | Outpatient (CLI) | payer OTHER ==
[~2017-02-21] MED LIST changes: +BUPIVACAINE HCL 0.25% 10 ML VIAL As Ordered ONE; +BUPIVACAINE HCL 0.25% 30 ML VIAL As Ordered ONE; +TRIAMCINOLONE ACETONIDE SUSP 40 MG/ML VIAL (J3301) As Ordered ONE; +diazePAM 5 MG TAB As Ordered ONE; +oxyCODONE 5MG TAB As Ordered ONE
--- NOTE | 2017-03-05 23:25 | ECWPNPC ---
PATIENT NAME: SMITH VIVEROS : 1965 GENDER: FEMALE VISIT DATE: 02/21/2017 DISCHARGE DATE: 02/21/17 1433 VISIT LOCKED DATE TIME: PHYSICIAN: ARELIS MILLER RESOURCE: ARELIS MILLER REASON FOR APPOINTMENT 1. TPI, NECK - ON ELIQUIS HISTORY OF PRESENT ILLNESS HISTORY OF PRESENT ILLNESS: PAIN THE PATIENT DESCRIBES THE PAIN... FALL RISK SCREENING: SCREENING :NO FALLS IN THE PAST YEAR CURRENT MEDICATIONS TAKING NITROGLYCERIN 0.4 MG TABLET SUBLINGUAL DIRECTED SUBLINGUAL EVERY 5 MIN: MDD 3 TABLETS, NOTES: 1 WEEK TAKING TRIAMCINOLONE ACETONIDE 0.1 % CREAM 1 APPLICATION TO AFFECTED AREA EXTERNALLY TO ARMS AND LEGS TWICE A DAY, NOTES: > 1 MONTH TAKING RANITIDINE HCL 150 MG CAPSULE 2 CAPSULE ORALLY ONCE A DAY, NOTES: 02/20/171999 TAKING ELIQUIS 5 MG TABLET 1 TAB(S) ORALLY TWICE DAILY, NOTES: 02/21/17 0600 TAKING ATORVASTATIN CALCIUM 40 MG TABLET 1 TABLET ORALLY ONCE A DAY, NOTES: 02/20/171999 TAKING HYDROXYZINE HCL 25 MG TABLET 1 TABLET NEEDED ORALLY ONCE DAILY NEEDED, NOTES: 02/20/171999 TAKING PAROXETINE HCL 30 MG TABLET 1 TABLET IN THE MORNING ORALLY ONCE A DAY, NOTES: 02/20/171999 TAKING PROTONIX 40 MG TABLET DELAYED RELEASE 1 TABLET ORALLY BID, NOTES: 02/20/171999 TAKING CARAFATE 1 GM TABLET 1 TABLET AT BEDTIME ON AN EMPTY STOMACH BEFORE MEALS ORALLY TWICE A DAY, NOTES: 02/20/171999 TAKING LISINOPRIL 10 MG TABLET 1 TAB ORALLY DAILY, NOTES: 02/20/171999 NOT-TAKING BLOOD PRESSURE CUFF - MISCELLANEOUS DIRECTED _ DAILY NOT-TAKING VISTARIL 25 MG CAPSULE 1 CAPSULE NEEDED ORALLY TWICE DAILY NEEDED, NOTES: 12/25 MEDICATION LIST REVIEWED AND RECONCILED WITH THE PATIENT PAST MEDICAL HISTORY FIBROMYALGIA DX 4 YEARS AGO, BEING FOLLOWED AT PAIN CLINIC MIGRAINE HEADACHE STRESS INCONTINENCE DEPRESSION HYPERLIPIDEMIA VITAMIN D DEFICIENCY AFIB GERD INTERMITTENT A FIB STRESS INCONTINENCE, FEMALE CHRONIC PAIN SYNDROME UNSPECIFIED VITAMIN D DEFICIENCY MIGRAINE, UNSPECIFIED WITHOUT MENTION OF INTRACTABLE MIGRAINE WITHOUT MENTION OF STATUS MIGRAINOSUS ALLERGIES ZIPSOR: ALLERGY FLEXERIL: AGGITATION: ALLERGY LYRICA: ANAPHYLAXIS: ALLERGY DICLOFENAC POTASSIUM: AGGITATION (ZIPSOR): ALLERGY BACTRIM: NAUSEA/VOMITING: ALLERGY SHELL FISH: SWELLS, HIVES: ALLERGY CYMBALTA: NAUSEA/VOMITING: SIDE EFFECTS AMITRIPTYLINE: AGGITATION: SIDE EFFECTS GABAPENTIN: HALLUCINATIONS: SIDE EFFECTS TRAMADOL HCL: HALLUCINATIONS: SIDE EFFECTS TIZANIDINE HCL: HIVES: ALLERGY KETOROLAC TROMETHAMINE: STOMACH PAIN: ALLERGY REVIEW OF SYSTEMS REVIEWED BY: PROVIDER: . CONSTITUTIONAL: ANY CHANGE IN YOUR MEDICAL CONDITION? NO . CHILLS NO . FEVER NO . INFECTION: DO YOU HAVE NEW INFECTIONS? NO . DO YOU HAVE HISTORY OF MRSA? NO . MUSCULOSKELETAL: ANY NEW PATTERNS OF PAIN OR NUMBNESS? NO . GASTROENTEROLOGY: ANY NEW CHANGE IN BOWEL CONTROL? NO . GENITOURINARY: ANY NEW CHANGE IN BLADDER CONTROL? NO . IS THERE A CHANCE YOU COULD BE ? NO . HEMATOLOGY/LYMPH: DO YOU TAKE ANY BLOOD THINNERS? (FOR EXAMPLE- COUMADIN, PLAVIX, AGGRENOX, PLATEL, PRADAXA, OR XARELTO) YES . WHEN WAS YOUR LAST DOSE? DATE: TIME: 02/21/17599 . NEUROLOGY: HAVE YOU FALLEN IN THE PAST 6 MONTHS? NO . ANY NEW EXTREMITY NUMBNESS OR WEAKNESS? NO . CARDIOLOGY: DO YOU HAVE A PACEMAKER OR DEFIBRILLATOR? NO . RESPIRATORY: HAVE YOU BEEN SICK IN THE PAST WEEK? NO . FEVER NO . FLU LIKE SYMPTOMS? NO . COUGH NO . INTEGUMENTARY: DO YOU HAVE ANY RASHES OR OPEN SORES? NO . ALLERGIC/IMMUNO: ARE YOU ALLERGIC TO SHELLFISH OR IV DYE? NO . ANY NEW ALLERGIES? NO . PSYCHIATRIC: DO YOU HAVE THOUGHTS OF HURTING YOURSELF OR SOMEONE ELSE? NO . ARE YOU ABUSED, NEGLECTED, OR IN AN UNSAFE ENVIRONMENT? NO . ENDOCRINOLOGY: ARE YOU DIABETIC? NO . OTHER: DO YOU NEED ANY PRESCRIPTIONS? NO . IF YES, PLEASE LIST: ____ . ANY NEW PROBLEMS WITH YOUR MEDICATIONS? NO . WHEN DID YOU LAST EAT? ____02/20/171999 . WHEN DID YOU LAST DRINK? ____02/21/17 06 . WHAT DID YOU LAST DRINK? ____WATER . NAME OF PERSON DRIVING YOU HOME? ____NIECE SILVINADonita MAYENES . DO YOU HAVE ANY OTHER QUESTIONS OR CONCERNS NO . VITAL SIGNS WT 254.2 LBS, HT 61 IN, BMI 48.03 INDEX, BP 165/99 MM HG, HR 91 /MIN, RR 18 /MIN, TEMP 97.5 F, OXYGEN SAT % 95%, SAFE IN ENV? (Y/N) YES, NA INITIALS NC 11:02, REVIEWED BY: LAS. PICKERING MYALGIA - M79.1 (PRIMARY) PROCEDURES PN TRIGGER POINT INJECTION WITH STEROIDS PRE PROCEDURE DIAGNOSIS 1. MYALGIA 2. PAIN AT BILATERAL LOWER BACK POST PROCEDURE DIAGNOSIS 1. MYALGIA 2. PAIN AT BILATERAL LOWER BACK PROCEDURE TRIGGER POINT INJECTION AT BILATERAL LOWER BACK SURGEON DR. ARELIS MILLER TRAIN CREW MEMBER NONE ANESTHESIA LOCAL PRE PROCEDURE NOTE THE PATIENT HAS A HISTORY OF CHRONIC PAIN AT THE RIGHT AND LEFT LOWER BACK AREA. I EVALUATE THE PATIENT AND REVIEWED THE CHART. THERE IS EVIDENCE OF BANDS OF TISSUE WITH RESTRICTION OF MOVEMENT AND PRESENCE OF TRIGGER POINT AT THE AFFECTED AREA. I WENT OVER THE RISKS, ALTERNATIVES, AND BENEFITS ASSOCIATED WITH THIS PROCEDURE. THE PATIENT WOULD LIKE TO PROCEED AND GIVE CONSENT TO PERFORMED THE PROCEDURE. THE PATIENT DENIES UNEXPLAINABLE WEIGHT LOSS, FEVER, CHILLS, OR NEW CHANGES IN URINARY OR BOWEL CONTROL DESCRIPTION OF PROCEDURE THE PATIENT WAS BROUGHT TO THE PROCEDURE ROOM AND PLACED IN THE SITTING POSITION. THE AREA WAS CLEANED WITH ALCOHOL. THE PROCEDURE WAS DONE USING ASEPTIC STERILE TECHNIQUE. I CHECKED LATERALITY AND THE LEVEL WHERE THE PROCEDURE WAS GOING TO BE PERFORMED WITH THE PATIENT AND THE SUPPORTING STAFF AT THE MOMENT OF THE TIME OUT IN THE PROCEDURE ROOM. USING A 25-GAUGE NEEDLE, TRIGGER POINTS WERE INJECTED AT THE RIGHT AND LEFT LOWER BACK AREA WITH A TOTAL OF 40 ML OF BUPIVACAINE 0.25% AND KENALOG 40 MG. THERE WAS NO EVIDENCE OF BLOOD, PARESTHESIA OR CEREBROSPINAL FLUID DURING THE PROCEDURE. THE PATIENT WAS SENT TO THE RECOVERY ROOM. THE PATIENT WAS MOVING THE EXTREMITIES AND DOING WELL. THERE WAS NO COMPLICATION DURING THE PROCEDURE POST PROCEDURE NOTE THE PATIENT WILL BE SEEN IN A FOLLOW UP IN THE NEXT FEW WEEKS. INSTRUCTIONS WERE GIVEN, QUESTIONS WERE ANSWERED, AND THE PATIENT EXPRESSED UNDERSTANDING AND AGREES WITH THE PLAN. I, BARRETT HUFFMAN, DOCUMENTED THE ABOVE INFORMATION ACTING A SCRIBE FOR DR. MILLER. I HAVE REVIEWED THE ABOVE DOCUMENT, WRITTEN BY BARRETT PALMER AND I VERIFY THAT IT IS ACCURATE PROCEDURE CODES 37426 INJ TRIGGER POINT 03/13 [facility] DISPOSITION & COMMUNICATION FOLLOW UP 3 WEEKS ELECTRONICALLY SIGNED BY ARELIS MILLER MD ON 03/05/2017 AT 10:38 PM EST DISCLAIMER : THIS IS A VISIT SUMMARY EXTRACTED FROM THE ECLINICALWORKS CHART. IT IS NOT A COPY OF THE ECL[employer]ICALWORKS PROGRESS NOTE. RITA
== END ==
LOC: M PAIN 11:45
PROVIDERS: ATTEND Anesthesiology
DX: G89.29 Other chronic pain (principal); M79.1 Myalgia; E78.5 Hyperlipidemia, unspecified; I10 Essential (primary) hypertension; Z79.01 Long term (current) use of anticoagulants; Z79.899 Other long term (current) drug therapy; Z88.8 Allergy status to other drugs, medicaments and biological substances; Z88.1 Allergy status to other antibiotic agents; Z91.013 Allergy to seafood
CPT/HCPCS: 20552; J3301

== ENCOUNTER 2017-03-13 18:43 | Emergency (ER) | payer OTHER ==
[2017-03-13] MEDS: ONDANSETRON 4 MG ORAL DISINTEGRATING TAB (S0181) PO (21:29)
[2017-03-13] MEDS: AUGMENTIN 875 MG TAB PO (22:16)
== END 2017-03-13 22:15 | disposition home or self-care (01) ==
LOC: M ED 18:43
DX: J01.00 Acute maxillary sinusitis, unspecified (principal); J06.9 Acute upper respiratory infection, unspecified; I10 Essential (primary) hypertension; J44.9 Chronic obstructive pulmonary disease, unspecified; Z86.718 Personal history of other venous thrombosis and embolism; Z79.02 Long term (current) use of antithrombotics/antiplatelets
CPT/HCPCS: 71046

== ENCOUNTER 2017-04-16 14:38 | Emergency (ER) | payer OTHER ==
[2017-04-16 15:47] LABS: BASO % 0.4 % (0.0-1.0); EOS % 0.8 % (0.0-3.0); HEMATOCRIT 42.8 % (36.0-47.0); HEMOGLOBIN 13.8 g/dl (12.0-16.0); IMMATURE GRANULOCYTE % 0.2 % (0-0); LYMPH # 1.9 10^3/uL (1.5-4.5); LYMPH % 39.3 % (24.0-44.0); MEAN CORPUSCULAR HEMOGLOBIN 28.6 pg (27.0-33.0); MEAN CORPUSCULAR HGB CONC 32.2 g/dl (32.0-36.5); MEAN CORPUSCULAR VOLUME 88.6 fl (80.0-96.0); MONO # 0.3 10^3/uL (0.0-0.8); MONO % 6.1 % (0.0-5.0); NEUTROPHILS # 2.6 10^3/uL (1.8-7.7); NEUTROPHILS % 53.2 % (36.0-66.0); PLATELET COUNT, AUTOMATED 225 10^3/uL (150-450); RED BLOOD COUNT 4.83 10^6/uL (4.00-5.40); RED CELL DISTRIBUTION WIDTH 13.8 % (11.5-14.5); WHITE BLOOD COUNT 4.9 10^3/uL (4.0-10.0)
[2017-04-16 16:05] LABS: ANION GAP 6 MEQ/L (8-16); BLOOD UREA NITROGEN 8 MG/DL (7-18); CALCIUM LEVEL 8.7 MG/DL (8.5-10.1); CARBON DIOXIDE LEVEL 26 MEQ/L (21-32); CHLORIDE LEVEL 111 MEQ/L (98-107); CPK CREATINE PHOSPHOKINASE 94 U/L (26-192); CREATININE FOR GFR 0.86 MG/DL (0.55-1.30); GLOMERULAR FILTRATION RATE > 60.0 (>51); GLUCOSE, FASTING 82 MG/DL (70-100); MB/CK RELATIVE INDEX 1.06 (< OR =4); NT-PRO BNP 75 PG/ML (<125); POTASSIUM SERUM 4.3 MEQ/L (3.5-5.1); SODIUM LEVEL 143 MEQ/L (136-145); TROPONIN I < 0.02 NG/ML (< 0.10)
[2017-04-16 18:00] LABS: FREE T4 1.31 NG/DL (0.76-1.46); MAGNESIUM LEVEL 2.6 MG/DL (1.8-2.4); PHOSPHORUS LEVEL 2.5 MG/DL (2.5-4.9)
[2017-04-16 18:04] LABS: INR 0.95; PROTHROMBIN TIME 12.8 SECONDS (12.4-14.5)
[2017-04-16 18:05] LABS: PARTIAL THROMBOPLASTIN TIME 24.1 SECONDS (26.8-37.9)
[2017-04-16 18:07] LABS: D-DIMER QUANT 439.2 ng/ml (<500)
[2017-04-16] MEDS: ACETAMINOPHEN TAB 650MG DOSE (2X325MG) PO (18:45)
[2017-04-16] MEDS: ONDANSETRON 4MG/2ML VIAL (J2405) IV (18:45)
== END 2017-04-16 19:55 | disposition home or self-care (01) ==
LOC: M ED 14:38
DX: R00.2 Palpitations (principal); I48.91 Unspecified atrial fibrillation; E78.5 Hyperlipidemia, unspecified; K21.9 Gastro-esophageal reflux disease without esophagitis; M79.7 Fibromyalgia; Z88.8 Allergy status to other drugs, medicaments and biological substances; Z91.018 Allergy to other foods; Z91.013 Allergy to seafood; Z86.39 Personal history of other endocrine, nutritional and metabolic disease; Z87.448 Personal history of other diseases of urinary system; Z86.69 Personal history of other diseases of the nervous system and sense organs; Z98.890 Other specified postprocedural states; Z87.891 Personal history of nicotine dependence
CPT/HCPCS: J2405

== ENCOUNTER → 2017-04-16 | Outpatient (CLI) | payer OTHER | LOC: M PAIN 13:45 | DX: M46.96 Unspecified inflammatory spondylopathy, lumbar region (principal); M15.9 Polyosteoarthritis, unspecified; M79.7 Fibromyalgia; G43.909 Migraine, unspecified, not intractable, without status migrainosus; F32.9 Major depressive disorder, single episode, unspecified; E78.5 Hyperlipidemia, unspecified; K21.9 Gastro-esophageal reflux disease without esophagitis; I48.0 Paroxysmal atrial fibrillation; Z79.01 Long term (current) use of anticoagulants; Z79.899 Other long term (current) drug therapy; Z88.1 Allergy status to other antibiotic agents; Z88.5 Allergy status to narcotic agent; Z88.8 Allergy status to other drugs, medicaments and biological substances; Z91.013 Allergy to seafood | CPT/HCPCS: G0463 ==

== ENCOUNTER → 2017-05-01 | Outpatient (CLI) | payer OTHER ==
[~2017-05-01] MED LIST changes: -ATOR40TA75 PO; -BACL10TA2; -BUPIVACAINE HCL 0.25% 10 ML VIAL As Ordered ONE; +BUPIVACAINE HCL 0.25% 30 ML VIAL As Ordered; -BUPIVACAINE HCL 0.25% 30 ML VIAL As Ordered ONE; -CARA1TAB6 PO; -ELIQ5TAB PO; -FLON0.05; -GABI4TAB OR; -IBUP400T OR; -IBUP600T OR; +ISOVUE-M 300 61% 15ML VIAL (Q9967) As Ordered; -KLON0.5T OR; +LIDOCAINE 1% SDV INJ 30 ML VIAL As Ordered; -LISI10TA4 PO; -MIRA3350 PO; -NORCOTAB PO; -OMEP10CASR PO; -OMEP20CA3 PO; -OXYB5TAB4 OR; -OXYC-141 PO; -OXYC15TA76 PO; -PANT40TA2 PO; -PAXI30TA11 PO; -PENNSAID; -PERC5TAB12 PO; -PERCOCET PO; -PROT1TAB2 PO; -ROBA750T OR; -SENO8.6T10 PO; -SKEL800T5 OR; -SOMA350T; -SOMA350T OR; -SUCR1TA PO; -TIZA4CAP3 PO; -TOPI25TA2; -TOPI50TA; -TOPI50TA OR; -TOPR25TA PO; -TRAM50TA2; -TRIAMCINOLONE ACETONIDE SUSP 40 MG/ML VIAL (J3301) As Ordered ONE; -VICO5TAB; -VIST25CA PO; -VIT D 2000 OR; -ZIPSOR; -ZOFR4TAB3 PO; -claritin; -diazePAM 5 MG TAB As Ordered ONE; -oxyCODONE 5MG TAB As Ordered ONE
== END ==
LOC: M PAIN 11:00
DX: G89.29 Other chronic pain (principal); M47.816 Spondylosis without myelopathy or radiculopathy, lumbar region; M47.817 Spondylosis without myelopathy or radiculopathy, lumbosacral region; M79.7 Fibromyalgia; G43.909 Migraine, unspecified, not intractable, without status migrainosus; F32.9 Major depressive disorder, single episode, unspecified; E78.5 Hyperlipidemia, unspecified; I48.91 Unspecified atrial fibrillation; K21.9 Gastro-esophageal reflux disease without esophagitis; Z79.01 Long term (current) use of anticoagulants; Z79.899 Other long term (current) drug therapy; Z88.1 Allergy status to other antibiotic agents; Z88.5 Allergy status to narcotic agent; Z88.8 Allergy status to other drugs, medicaments and biological substances; Z91.013 Allergy to seafood; Z87.891 Personal history of nicotine dependence
CPT/HCPCS: Q9967

== ENCOUNTER 2017-05-12 13:14 | Emergency (ER) | payer OTHER ==
[2017-05-12] MEDS: KETOROLAC 60 MG/2 ML VIAL (J1885) IM (14:53)
[2017-05-12 16:02] LABS: APPEARANCE, URINE HAZY (CLEAR); BACTERIA, URINE AUTO NEGATIVE (NEGATIVE); BILIRUBIN, URINE AUTO NEGATIVE (NEGATIVE); BLOOD, URINE BLOOD NEGATIVE (NEGATIVE); COLOR, URINE YELLOW (YELLOW); GLUCOSE, URINE (UA) AUTO NEGATIVE (NEGATIVE); KETONE, URINE AUTO NEGATIVE (NEGATIVE); LEUKOCYTE ESTERASE, URINE AUTO NEGATIVE (NEGATIVE); MUCUS, URINE SMALL (NEGATIVE); NITRITE, URINE AUTO NEGATIVE (NEGATIVE); PROTEIN, URINE AUTO NEGATIVE (NEGATIVE); RBC, URINE AUTO 1 /HPF (0-3); SPECIFIC GRAVITY URINE AUTO 1.021 (1.002-1.035); SQUAMOUS EPITHELIAL CELL UR AU 2 /HPF (0-6); WBC, URINE AUTO 2 /HPF (0-3)
[2017-05-12] MEDS: ACETAMINOPHEN 325 MG TAB PO (16:40)
== END 2017-05-12 16:41 | disposition home or self-care (01) ==
LOC: M ED 13:14
DX: M54.6 Pain in thoracic spine (principal); I10 Essential (primary) hypertension; J44.9 Chronic obstructive pulmonary disease, unspecified; E78.00 Pure hypercholesterolemia, unspecified; I48.91 Unspecified atrial fibrillation; K21.9 Gastro-esophageal reflux disease without esophagitis; Z86.718 Personal history of other venous thrombosis and embolism; Z87.09 Personal history of other diseases of the respiratory system; G47.30 Sleep apnea, unspecified; H40.9 Unspecified glaucoma; Z86.19 Personal history of other infectious and parasitic diseases; Z87.19 Personal history of other diseases of the digestive system; F41.9 Anxiety disorder, unspecified; F33.9 Major depressive disorder, recurrent, unspecified; Z79.899 Other long term (current) drug therapy; Z79.01 Long term (current) use of anticoagulants; Z91.013 Allergy to seafood; Z91.018 Allergy to other foods; Z88.8 Allergy status to other drugs, medicaments and biological substances
CPT/HCPCS: J1885

== ENCOUNTER 2017-05-14 15:42 | Emergency (ER) | payer OTHER ==
[2017-05-14] MEDS: MORPHINE 4 MG/ML 1ML VIAL (J2270) IV (18:06)
[2017-05-14] MEDS: METHOCARBAMOL 750 MG TAB PO (18:06)
== END 2017-05-14 20:16 | disposition home or self-care (01) ==
LOC: M ED 15:42
DX: S76.011A Strain of muscle, fascia and tendon of right hip, initial encounter (principal); S83.91XA Sprain of unspecified site of right knee, initial encounter; W01.0XXA Fall on same level from slipping, tripping and stumbling without subsequent striking against object, initial encounter; Y92.098 Other place in other non-institutional residence as the place of occurrence of the external cause; I10 Essential (primary) hypertension; E78.5 Hyperlipidemia, unspecified; G43.909 Migraine, unspecified, not intractable, without status migrainosus; K21.9 Gastro-esophageal reflux disease without esophagitis; Z87.19 Personal history of other diseases of the digestive system; F32.9 Major depressive disorder, single episode, unspecified; F41.9 Anxiety disorder, unspecified; M54.9 Dorsalgia, unspecified; J44.9 Chronic obstructive pulmonary disease, unspecified; Z86.718 Personal history of other venous thrombosis and embolism; Z79.899 Other long term (current) drug therapy; Z79.01 Long term (current) use of anticoagulants; Z79.1 Long term (current) use of non-steroidal anti-inflammatories (NSAID); Z88.8 Allergy status to other drugs, medicaments and biological substances; Z91.013 Allergy to seafood; Z91.018 Allergy to other foods
CPT/HCPCS: J2270

== ENCOUNTER 2017-05-20 12:42 | Emergency (ER) | payer OTHER ==
[2017-05-20] MEDS: PERCOCET 5MG/325MG TAB PO (14:40)
== END 2017-05-20 15:30 | disposition home or self-care (01) ==
LOC: M ED 12:42
DX: S93.401A Sprain of unspecified ligament of right ankle, initial encounter (principal); W19.XXXA Unspecified fall, initial encounter; Y92.009 Unspecified place in unspecified non-institutional (private) residence as the place of occurrence of the external cause; Z79.899 Other long term (current) drug therapy; Z79.01 Long term (current) use of anticoagulants; Z88.8 Allergy status to other drugs, medicaments and biological substances; Z91.030 Bee allergy status; Z91.013 Allergy to seafood
CPT/HCPCS: 99282

== ENCOUNTER → 2017-05-21 | Outpatient (CLI) | payer OTHER | LOC: M PAIN 09:15 | DX: M47.816 Spondylosis without myelopathy or radiculopathy, lumbar region (principal); M47.817 Spondylosis without myelopathy or radiculopathy, lumbosacral region; E78.5 Hyperlipidemia, unspecified; I10 Essential (primary) hypertension; I48.0 Paroxysmal atrial fibrillation; Z79.891 Long term (current) use of opiate analgesic; Z79.899 Other long term (current) drug therapy; Z88.8 Allergy status to other drugs, medicaments and biological substances; Z91.013 Allergy to seafood; Z87.891 Personal history of nicotine dependence | CPT/HCPCS: G0463 ==

== ENCOUNTER 2017-05-24 00:31 | Emergency (ER) | payer OTHER ==
[2017-05-24] MEDS: OXYCODONE/APAP 5MG/325MG(BULK FOR ED) 1 TABLET PO (05:32)
[2017-05-24] MEDS: predniSONE 20 MG TAB PO (05:32)
== END 2017-05-24 05:42 | disposition home or self-care (01) ==
LOC: M ED 00:31
DX: M17.11 Unilateral primary osteoarthritis, right knee (principal); Z79.899 Other long term (current) drug therapy; Z79.01 Long term (current) use of anticoagulants; Z88.8 Allergy status to other drugs, medicaments and biological substances; Z91.013 Allergy to seafood; Z91.018 Allergy to other foods; F17.210 Nicotine dependence, cigarettes, uncomplicated
CPT/HCPCS: 73564

== ENCOUNTER → 2017-05-30 | Outpatient (CLI) | payer OTHER | LOC: M PAIN 08:45 | DX: G89.29 Other chronic pain (principal); M47.816 Spondylosis without myelopathy or radiculopathy, lumbar region; M47.817 Spondylosis without myelopathy or radiculopathy, lumbosacral region; E78.5 Hyperlipidemia, unspecified; K21.9 Gastro-esophageal reflux disease without esophagitis; I10 Essential (primary) hypertension; F32.9 Major depressive disorder, single episode, unspecified; I48.91 Unspecified atrial fibrillation; G43.909 Migraine, unspecified, not intractable, without status migrainosus; Z79.891 Long term (current) use of opiate analgesic; Z79.899 Other long term (current) drug therapy; Z88.8 Allergy status to other drugs, medicaments and biological substances; Z91.013 Allergy to seafood; Z87.891 Personal history of nicotine dependence | CPT/HCPCS: Q9967 ==

== ENCOUNTER 2017-06-02 22:38 | Emergency (ER) | payer OTHER ==
[2017-06-03] MEDS ORDERED: ONDANSETRON 4 MG TAB (S0181) As Ordered (00:19)
[2017-06-03] MEDS ORDERED: ONDANSETRON 4MG/2ML VIAL (J2405) IV (00:30)
[2017-06-03] MEDS: ONDANSETRON 4 MG ORAL DISINTEGRATING TAB (S0181) PO ×2 (00:30→02:29)
[2017-06-03] MEDS: NORCO, ANEXSIA 5/325MG TABLET (HYDROcodone/ACETAMINOPHEN) PO (00:35)
== END 2017-06-03 02:34 | disposition home or self-care (01) ==
LOC: M ED 22:38
DX: S06.0X0A Concussion without loss of consciousness, initial encounter (principal); S83.411A Sprain of medial collateral ligament of right knee, initial encounter; W01.198A Fall on same level from slipping, tripping and stumbling with subsequent striking against other object, initial encounter; Y92.098 Other place in other non-institutional residence as the place of occurrence of the external cause; S82.409D Unspecified fracture of shaft of unspecified fibula, subsequent encounter for closed fracture with routine healing; I48.91 Unspecified atrial fibrillation; J44.9 Chronic obstructive pulmonary disease, unspecified; Z86.718 Personal history of other venous thrombosis and embolism; Z88.8 Allergy status to other drugs, medicaments and biological substances; Z91.013 Allergy to seafood; Z91.018 Allergy to other foods; Z79.899 Other long term (current) drug therapy; Z79.1 Long term (current) use of non-steroidal anti-inflammatories (NSAID); Z79.01 Long term (current) use of anticoagulants
CPT/HCPCS: 73564

== ENCOUNTER 2017-07-05 18:27 | Emergency (ER) | payer OTHER ==
[2017-07-05] MEDS: KETOROLAC 60 MG/2 ML VIAL (J1885) IM (20:19)
== END 2017-07-06 00:35 | disposition home or self-care (01) ==
LOC: M ED 07-06 00:35
DX: M77.31 Calcaneal spur, right foot (principal); I10 Essential (primary) hypertension; J44.9 Chronic obstructive pulmonary disease, unspecified; I48.91 Unspecified atrial fibrillation; G43.909 Migraine, unspecified, not intractable, without status migrainosus; G89.29 Other chronic pain; Z86.718 Personal history of other venous thrombosis and embolism; Z79.899 Other long term (current) drug therapy; Z79.01 Long term (current) use of anticoagulants; Z88.8 Allergy status to other drugs, medicaments and biological substances; Z91.013 Allergy to seafood; Z91.018 Allergy to other foods
CPT/HCPCS: J1885

== ENCOUNTER → 2017-07-13 | Outpatient (CLI) | payer OTHER | LOC: M PAIN 09:15 | DX: M47.816 Spondylosis without myelopathy or radiculopathy, lumbar region (principal); M47.817 Spondylosis without myelopathy or radiculopathy, lumbosacral region; M79.7 Fibromyalgia; G43.909 Migraine, unspecified, not intractable, without status migrainosus; F32.9 Major depressive disorder, single episode, unspecified; E78.5 Hyperlipidemia, unspecified; I48.91 Unspecified atrial fibrillation; K21.9 Gastro-esophageal reflux disease without esophagitis; Z79.01 Long term (current) use of anticoagulants; Z79.899 Other long term (current) drug therapy; Z88.1 Allergy status to other antibiotic agents; Z88.5 Allergy status to narcotic agent; Z88.8 Allergy status to other drugs, medicaments and biological substances; Z91.013 Allergy to seafood; Z87.891 Personal history of nicotine dependence | CPT/HCPCS: G0463 ==

== ENCOUNTER 2017-07-26 17:35 | Emergency (ER) | payer OTHER ==
[2017-07-26] MEDS: ACETAMINOPH W/CODEINE #3 TAB UD PO (19:50)
== END 2017-07-26 20:27 | disposition home or self-care (01) ==
LOC: M ED 17:35
DX: S92.511A Displaced fracture of proximal phalanx of right lesser toe(s), initial encounter for closed fracture (principal); X58.XXXA Exposure to other specified factors, initial encounter; Y92.89 Other specified places as the place of occurrence of the external cause; F41.9 Anxiety disorder, unspecified; F33.9 Major depressive disorder, recurrent, unspecified; I48.91 Unspecified atrial fibrillation; E78.00 Pure hypercholesterolemia, unspecified; G93.2 Benign intracranial hypertension; Z79.899 Other long term (current) drug therapy; Z79.01 Long term (current) use of anticoagulants; Z88.8 Allergy status to other drugs, medicaments and biological substances; Z91.013 Allergy to seafood; Z91.018 Allergy to other foods; Z87.891 Personal history of nicotine dependence
CPT/HCPCS: 73630

== ENCOUNTER 2017-07-31 13:06 | Emergency (ER) | payer OTHER | END 2017-07-31 16:12 | disposition home or self-care (01) | LOC: M ED 13:06 | DX: F41.0 Panic disorder [episodic paroxysmal anxiety] (principal); I48.91 Unspecified atrial fibrillation; I10 Essential (primary) hypertension; M79.7 Fibromyalgia; G89.29 Other chronic pain; F17.200 Nicotine dependence, unspecified, uncomplicated; Z88.8 Allergy status to other drugs, medicaments and biological substances; Z91.018 Allergy to other foods; Z91.013 Allergy to seafood | CPT/HCPCS: 93005 ==

== ENCOUNTER → 2017-08-15 | Outpatient (CLI) | payer OTHER ==
[~2017-08-15] MED LIST changes: -ISOVUE-M 300 61% 15ML VIAL (Q9967) As Ordered; +TRIAMCINOLONE ACETONIDE SUSP 40 MG/ML VIAL (J3301) As Ordered
== END ==
LOC: M PAIN 10:00
DX: G89.29 Other chronic pain (principal); M47.816 Spondylosis without myelopathy or radiculopathy, lumbar region; M47.817 Spondylosis without myelopathy or radiculopathy, lumbosacral region; M79.7 Fibromyalgia; G43.909 Migraine, unspecified, not intractable, without status migrainosus; F32.9 Major depressive disorder, single episode, unspecified; E78.5 Hyperlipidemia, unspecified; K21.9 Gastro-esophageal reflux disease without esophagitis; I48.0 Paroxysmal atrial fibrillation; Z79.01 Long term (current) use of anticoagulants; Z79.899 Other long term (current) drug therapy; Z88.1 Allergy status to other antibiotic agents; Z88.5 Allergy status to narcotic agent; Z88.8 Allergy status to other drugs, medicaments and biological substances; Z91.013 Allergy to seafood; Z87.891 Personal history of nicotine dependence
CPT/HCPCS: J3301

== ENCOUNTER 2017-08-17 11:58 | Emergency (ER) | payer OTHER ==
[2017-08-17] MEDS ORDERED: LABETALOL HCL 100 MG/20 ML VIAL IV (12:38)
[2017-08-17 13:03] LABS: BASO % 0.3 % (0.0-1.0); EOS % 0.3 % (0.0-3.0); HEMATOCRIT 41.5 % (36.0-47.0); HEMOGLOBIN 13.8 g/dl (12.0-15.5); IMMATURE GRANULOCYTE % 0.8 % (0-3.0); LYMPH # 1.6 10^3/uL (1.5-4.5); LYMPH % 24.9 % (24.0-44.0); MEAN CORPUSCULAR HEMOGLOBIN 29.7 pg (27.0-33.0); MEAN CORPUSCULAR HGB CONC 33.3 g/dl (32.0-36.5); MEAN CORPUSCULAR VOLUME 89.2 fl (80.0-96.0); MONO # 0.5 10^3/uL (0.0-0.8); MONO % 7.3 % (0.0-5.0); NEUTROPHILS # 4.3 10^3/uL (1.8-7.7); NEUTROPHILS % 66.4 % (36.0-66.0); PLATELET COUNT, AUTOMATED 180 10^3/uL (150-450); RED BLOOD COUNT 4.65 10^6/uL (4.00-5.40); WHITE BLOOD COUNT 6.4 10^3/uL (4.0-10.0)
[2017-08-17] MEDS: ASPIRIN 81 MG CHEW TABLET PO (13:10)
[2017-08-17] MEDS: NS 1,000 ML IV (13:11)
[2017-08-17 13:14] LABS: INR 1.01; PROTHROMBIN TIME 13.4 SECONDS (12.4-14.5)
[2017-08-17] MEDS ORDERED: ISOVUE-370 76% 100ML VIAL (Q9967) As Ordered (13:24)
[2017-08-17 13:26] LABS: POS COUNT POS FLAG
[2017-08-17 13:29] LABS: ALBUMIN 3.5 GM/DL (3.2-5.2); ALBUMIN/GLOBULIN RATIO 0.97 (1.00-1.93); ALKALINE PHOSPHATASE 163 U/L (45-117); ALT/SGPT 33 U/L (12-78); ANION GAP 6 MEQ/L (8-16); AST/SGOT 20 U/L (7-37); BILIRUBIN,DIRECT < 0.1 MG/DL (0.0-0.2); BILIRUBIN,TOTAL 0.3 MG/DL (0.2-1.0); BLOOD UREA NITROGEN 18 MG/DL (7-18); CALCIUM LEVEL 9.2 MG/DL (8.5-10.1); CARBON DIOXIDE LEVEL 30 MEQ/L (21-32); CHLORIDE LEVEL 106 MEQ/L (98-107); CPK CREATINE PHOSPHOKINASE 111 U/L (26-192); CREATININE FOR GFR 0.97 MG/DL (0.55-1.30); GLOMERULAR FILTRATION RATE > 60.0 (>51); GLUCOSE, FASTING 82 MG/DL (70-100); POTASSIUM SERUM 4.2 MEQ/L (3.5-5.1); SODIUM LEVEL 142 MEQ/L (136-145); TOTAL PROTEIN 7.1 GM/DL (6.4-8.2); TROPONIN I < 0.02 NG/ML (< 0.10)
[2017-08-17 13:30] LABS: CK-MB VALUE MASS < 1.0 NG/ML (<3.6)
== END 2017-08-17 15:02 | disposition home or self-care (01) ==
LOC: M ED 11:58
DX: M79.603 Pain in arm, unspecified (principal); I51.9 Heart disease, unspecified; I10 Essential (primary) hypertension; E78.5 Hyperlipidemia, unspecified; E11.9 Type 2 diabetes mellitus without complications; G43.909 Migraine, unspecified, not intractable, without status migrainosus; Z72.0 Tobacco use; Z82.49 Family history of ischemic heart disease and other diseases of the circulatory system; Z79.899 Other long term (current) drug therapy; Z88.5 Allergy status to narcotic agent; Z88.8 Allergy status to other drugs, medicaments and biological substances; Z91.013 Allergy to seafood; Z91.02 Food additives allergy status
CPT/HCPCS: Q9967

== ENCOUNTER 2017-08-26 05:49 | Emergency (ER) | payer OTHER ==
[2017-08-26] MEDS: guaiFENesin SYRUP 200 MG/10 ML UDC PO (06:38)
[2017-08-26 06:45] LABS: BASO % 0.4 % (0.0-1.0); EOS # 0.1 10^3/uL (0.0-0.50); EOS % 1.3 % (0.0-3.0); HEMATOCRIT 43.1 % (36.0-47.0); HEMOGLOBIN 14.2 g/dl (12.0-15.5); IMMATURE GRANULOCYTE % 0.4 % (0-3.0); LYMPH # 1.2 10^3/uL (1.5-4.5); LYMPH % 23.2 % (24.0-44.0); MEAN CORPUSCULAR HEMOGLOBIN 29.9 pg (27.0-33.0); MEAN CORPUSCULAR HGB CONC 32.9 g/dl (32.0-36.5); MEAN CORPUSCULAR VOLUME 90.7 fl (80.0-96.0); MONO # 0.6 10^3/uL (0.0-0.8); MONO % 11.1 % (0.0-5.0); NEUTROPHILS # 3.4 10^3/uL (1.8-7.7); NEUTROPHILS % 63.6 % (36.0-66.0); PLATELET COUNT, AUTOMATED 199 10^3/uL (150-450); RED BLOOD COUNT 4.75 10^6/uL (4.00-5.40); RED CELL DISTRIBUTION WIDTH 13.2 % (11.5-14.5); WHITE BLOOD COUNT 5.3 10^3/uL (4.0-10.0)
[2017-08-26] MEDS ORDERED: ALBUTEROL SULFATE 2.5 MG/0.5 ML INH NEB SOLN NEB (06:45)
== END 2017-08-26 07:56 | disposition home or self-care (01) ==
LOC: M ED 05:49
DX: R05 Cough (principal); I51.7 Cardiomegaly; I48.91 Unspecified atrial fibrillation; I10 Essential (primary) hypertension; J44.9 Chronic obstructive pulmonary disease, unspecified; F41.9 Anxiety disorder, unspecified; F32.9 Major depressive disorder, single episode, unspecified; Z87.01 Personal history of pneumonia (recurrent); Z86.69 Personal history of other diseases of the nervous system and sense organs; Z87.891 Personal history of nicotine dependence; Z86.718 Personal history of other venous thrombosis and embolism; Z79.01 Long term (current) use of anticoagulants; Z79.899 Other long term (current) drug therapy; Z88.5 Allergy status to narcotic agent; Z88.8 Allergy status to other drugs, medicaments and biological substances; Z91.013 Allergy to seafood; Z91.018 Allergy to other foods
CPT/HCPCS: 71046

== ENCOUNTER 2017-08-28 09:22 | Observation (INO) | payer OTHER ==
[2017-08-28 10:18] LABS: BASO % 0.5 % (0.0-1.0); EOS # 0.1 10^3/uL (0.0-0.50); EOS % 1.2 % (0.0-3.0); HEMATOCRIT 44.8 % (36.0-47.0); HEMOGLOBIN 14.7 g/dl (12.0-15.5); IMMATURE GRANULOCYTE % 0.5 % (0-3.0); LYMPH # 0.8 10^3/uL (1.5-4.5); LYMPH % 19.3 % (24.0-44.0); MEAN CORPUSCULAR HEMOGLOBIN 29.2 pg (27.0-33.0); MEAN CORPUSCULAR HGB CONC 32.8 g/dl (32.0-36.5); MEAN CORPUSCULAR VOLUME 89.1 fl (80.0-96.0); MONO # 0.5 10^3/uL (0.0-0.8); MONO % 11.5 % (0.0-5.0); NEUTROPHILS # 2.8 10^3/uL (1.8-7.7); PLATELET COUNT, AUTOMATED 208 10^3/uL (150-450); RED BLOOD COUNT 5.03 10^6/uL (4.00-5.40); RED CELL DISTRIBUTION WIDTH 13.2 % (11.5-14.5); WHITE BLOOD COUNT 4.1 10^3/uL (4.0-10.0)
[2017-08-28] MEDS: ONDANSETRON 4MG/2ML VIAL (J2405) IV ×3 (10:21→20:55)
[2017-08-28] MEDS: MORPHINE 4 MG/ML 1ML VIAL/SYRINGE (J2270) IV (10:22)
[2017-08-28] MEDS: NS 1,000 ML IV (10:22)
[2017-08-28] MEDS: GI COCKTAIL 50ML BTL(HYOSCYAMINE/MAALOX/LIDOCAINE VISCOUS)(1:3:1) PO (10:22)
[2017-08-28] MEDS: PANTOPRAZOLE 40MG INJ (PROTONIX) (C9113) IV (10:22)
[2017-08-28 10:31] LABS: INR 0.95; PARTIAL THROMBOPLASTIN TIME 27.1 SECONDS (26.8-37.9); PROTHROMBIN TIME 12.8 SECONDS (12.4-14.5)
[2017-08-28 10:42] LABS: ALBUMIN 3.6 GM/DL (3.2-5.2); ALBUMIN/GLOBULIN RATIO 0.86 (1.00-1.93); ALKALINE PHOSPHATASE 173 U/L (45-117); ALT/SGPT 34 U/L (12-78); ANION GAP 8 MEQ/L (8-16); AST/SGOT 26 U/L (7-37); BILIRUBIN,TOTAL 0.3 MG/DL (0.2-1.0); BLOOD UREA NITROGEN 15 MG/DL (7-18); CARBON DIOXIDE LEVEL 29 MEQ/L (21-32); CHLORIDE LEVEL 104 MEQ/L (98-107); CREATININE FOR GFR 1.01 MG/DL (0.55-1.30); GLOMERULAR FILTRATION RATE > 60.0 (>51); GLUCOSE, FASTING 93 MG/DL (70-100); LIPASE 215 U/L (73-393); POTASSIUM SERUM 3.7 MEQ/L (3.5-5.1); SODIUM LEVEL 141 MEQ/L (136-145); TOTAL PROTEIN 7.8 GM/DL (6.4-8.2)
[2017-08-28] MEDS: BENZONATATE 100 MG CAP PO (11:15)
[2017-08-28] MEDS: methylPREDNISolone INJ 125 MG/2 ML VIAL (J2930) IV (11:15)
[2017-08-28] MEDS: IPRATROPIUM 0.5MG/ALBUTEROL 2.5MG INH SOL UD 3ML (DUONEB)(J7620) NEB ×2 (11:15→21:06)
[2017-08-28] MEDS ORDERED: BISACODYL 5 MG TAB PO (13:30)
[2017-08-28] MEDS: AZITHROMYCIN 250 MG TAB PO (14:30)
[2017-08-28] MEDS: PARoxetine 10MG TABLET PO (16:53)
[2017-08-28] MEDS: ACETAMINOPHEN 500 MG TAB PO (16:54)
[2017-08-28] MEDS: PANTOPRAZOLE 40MG TAB (PROTONIX) PO (20:55)
[2017-08-28] MEDS: hydrOXYzine 25 MG TAB PO (20:55)
[2017-08-28] MEDS: SUCRALFATE 1 GM TAB PO (20:55)
[2017-08-28] MEDS: APIXABAN 5 MG TAB (ELIQUIS) PO (20:55)
[2017-08-28] MEDS: LISINOPRIL 10 MG TAB PO (20:56)
[2017-08-28] MEDS: SYMBICORT 80/4.5MCG INHALER 6GM INH (21:06)
[2017-08-28] MEDS: PERCOCET 5MG/325MG TAB PO (21:42)
[2017-08-29] MEDS: IPRATROPIUM 0.5MG/ALBUTEROL 2.5MG INH SOL UD 3ML (DUONEB)(J7620) NEB ×2 (02:57→08:00)
[2017-08-29] MEDS: PERCOCET 5MG/325MG TAB PO ×2 (04:34→10:59)
[2017-08-29] MEDS: ONDANSETRON 4 MG TAB (S0181) PO (08:44)
[2017-08-29] MEDS: APIXABAN 5 MG TAB (ELIQUIS) PO (08:44)
[2017-08-29] MEDS: SUCRALFATE 1 GM TAB PO (08:45)
[2017-08-29] MEDS: PARoxetine 10MG TABLET PO (08:45)
[2017-08-29] MEDS: PANTOPRAZOLE 40MG TAB (PROTONIX) PO (08:45)
[2017-08-29] MEDS: AZITHROMYCIN 250 MG TAB PO (09:42)
[2017-08-29] MEDS: BENZONATATE 100 MG CAP PO (09:42)
[2017-08-29] MEDS: SYMBICORT 80/4.5MCG INHALER 6GM INH (13:12)
== END 2017-08-29 14:30 | disposition home or self-care (01) ==
LOC: M ED 09:22 → M ED INP 13:29 → M MS4PR 16:40
DX: R05 Cough (principal); J40 Bronchitis, not specified as acute or chronic; J44.9 Chronic obstructive pulmonary disease, unspecified; I11.9 Hypertensive heart disease without heart failure; M79.7 Fibromyalgia; G43.909 Migraine, unspecified, not intractable, without status migrainosus; N39.3 Stress incontinence (female) (male); F32.9 Major depressive disorder, single episode, unspecified; F41.9 Anxiety disorder, unspecified; E78.4 Other hyperlipidemia; I48.91 Unspecified atrial fibrillation; Z79.01 Long term (current) use of anticoagulants; E55.9 Vitamin D deficiency, unspecified; K21.9 Gastro-esophageal reflux disease without esophagitis; Z87.891 Personal history of nicotine dependence; I51.7 Cardiomegaly; Z79.899 Other long term (current) drug therapy; Z88.8 Allergy status to other drugs, medicaments and biological substances; Z91.013 Allergy to seafood
CPT/HCPCS: C9113

== ENCOUNTER 2017-09-20 12:52 | Emergency (ER) | payer OTHER ==
[2017-09-20] MEDS: CLINDAMYCIN 150 MG CAP PO (15:38)
[2017-09-20] MEDS: ONDANSETRON 4 MG ORAL DISINTEGRATING TAB (Q0162 PER 1MG) PO (15:38)
[2017-09-20] MEDS: PERCOCET 5MG/325MG TAB PO (15:39)
[2017-09-20 15:45] LABS: BASO % 0.5 % (0.0-1.0); EOS # 0.1 10^3/uL (0.0-0.50); EOS % 2.5 % (0.0-3.0); HEMATOCRIT 43.3 % (36.0-47.0); HEMOGLOBIN 14.2 g/dl (12.0-15.5); IMMATURE GRANULOCYTE % 0.2 % (0-3.0); LYMPH # 1.7 10^3/uL (1.5-4.5); LYMPH % 37.9 % (24.0-44.0); MEAN CORPUSCULAR HEMOGLOBIN 29.8 pg (27.0-33.0); MEAN CORPUSCULAR HGB CONC 32.8 g/dl (32.0-36.5); MEAN CORPUSCULAR VOLUME 90.8 fl (80.0-96.0); MONO # 0.3 10^3/uL (0.0-0.8); MONO % 7.3 % (0.0-5.0); NEUTROPHILS # 2.3 10^3/uL (1.8-7.7); NEUTROPHILS % 51.6 % (36.0-66.0); PLATELET COUNT, AUTOMATED 190 10^3/uL (150-450); RED BLOOD COUNT 4.77 10^6/uL (4.00-5.40); RED CELL DISTRIBUTION WIDTH 13.1 % (11.5-14.5); WHITE BLOOD COUNT 4.4 10^3/uL (4.0-10.0)
[2017-09-20 16:07] LABS: ANION GAP 7 MEQ/L (8-16); BLOOD UREA NITROGEN 10 MG/DL (7-18); CALCIUM LEVEL 9.1 MG/DL (8.5-10.1); CARBON DIOXIDE LEVEL 30 MEQ/L (21-32); CHLORIDE LEVEL 105 MEQ/L (98-107); CREATININE FOR GFR 1.01 MG/DL (0.55-1.30); GLOMERULAR FILTRATION RATE > 60.0 (>51); GLUCOSE, FASTING 83 MG/DL (70-100); POTASSIUM SERUM 3.9 MEQ/L (3.5-5.1); SODIUM LEVEL 142 MEQ/L (136-145)
== END 2017-09-20 16:36 | disposition home or self-care (01) ==
LOC: M ED 12:52
DX: L03.115 Cellulitis of right lower limb (principal); I48.91 Unspecified atrial fibrillation; J44.9 Chronic obstructive pulmonary disease, unspecified; Z86.718 Personal history of other venous thrombosis and embolism; K52.9 Noninfective gastroenteritis and colitis, unspecified; Z86.14 Personal history of Methicillin resistant Staphylococcus aureus infection; Z87.891 Personal history of nicotine dependence; Z79.899 Other long term (current) drug therapy; Z88.1 Allergy status to other antibiotic agents; Z88.8 Allergy status to other drugs, medicaments and biological substances; Z91.013 Allergy to seafood; Z91.018 Allergy to other foods
CPT/HCPCS: Q0162

== ENCOUNTER 2017-09-22 12:31 | Emergency (ER) | payer OTHER ==
[2017-09-22 15:23] LABS: BASO % 0.2 % (0.0-1.0); EOS # 0.1 10^3/uL (0.0-0.50); EOS % 1.5 % (0.0-3.0); HEMATOCRIT 41.2 % (36.0-47.0); HEMOGLOBIN 13.6 g/dl (12.0-15.5); IMMATURE GRANULOCYTE % 0.2 % (0-3.0); LYMPH # 1.6 10^3/uL (1.5-4.5); LYMPH % 35.8 % (24.0-44.0); MEAN CORPUSCULAR VOLUME 90.7 fl (80.0-96.0); MONO # 0.3 10^3/uL (0.0-0.8); MONO % 7.5 % (0.0-5.0); NEUTROPHILS # 2.5 10^3/uL (1.8-7.7); NEUTROPHILS % 54.8 % (36.0-66.0); PLATELET COUNT, AUTOMATED 181 10^3/uL (150-450); RED BLOOD COUNT 4.54 10^6/uL (4.00-5.40); RED CELL DISTRIBUTION WIDTH 12.9 % (11.5-14.5); WHITE BLOOD COUNT 4.5 10^3/uL (4.0-10.0)
[2017-09-22 15:36] LABS: D-DIMER QUANT 500.4 ng/ml (<500)
[2017-09-22 15:42] LABS: ALBUMIN 3.1 GM/DL (3.2-5.2); ALBUMIN/GLOBULIN RATIO 0.84 (1.00-1.93); ALKALINE PHOSPHATASE 158 U/L (45-117); ALT/SGPT 30 U/L (12-78); ANION GAP 3 MEQ/L (8-16); AST/SGOT 19 U/L (7-37); BILIRUBIN,DIRECT < 0.1 MG/DL (0.0-0.2); BILIRUBIN,TOTAL 0.4 MG/DL (0.2-1.0); BLOOD UREA NITROGEN 10 MG/DL (7-18); CALCIUM LEVEL 8.3 MG/DL (8.5-10.1); CARBON DIOXIDE LEVEL 32 MEQ/L (21-32); CHLORIDE LEVEL 106 MEQ/L (98-107); CREATININE FOR GFR 1.01 MG/DL (0.55-1.30); GLOMERULAR FILTRATION RATE > 60.0 (>51); GLUCOSE, FASTING 80 MG/DL (70-100); LIPASE 178 U/L (73-393); POTASSIUM SERUM 3.9 MEQ/L (3.5-5.1); SODIUM LEVEL 141 MEQ/L (136-145); TOTAL PROTEIN 6.8 GM/DL (6.4-8.2)
[2017-09-22 15:43] LABS: LACTIC ACID SEPSIS PROTOCOL 1.2 MMOL/L (0.4-2.0)
[2017-09-22] MEDS: ONDANSETRON 4MG/2ML VIAL (J2405) IV (15:45)
[2017-09-22] MEDS: MORPHINE 2 MG/ML 1ML SYRINGE (J2270) IV (15:46)
[2017-09-22] MEDS: NS 1,000 ML IV (15:46)
[2017-09-22 16:07] LABS: ERYTHROCYTE SEDIMENTATION RATE 16 mm/hr (0-30)
[2017-09-22] MEDS: KETOROLAC 30 MG/ML VIAL (J1885) IV (16:57)
== END 2017-09-22 18:30 | disposition home or self-care (01) ==
LOC: M ED 12:31
DX: S81.801A Unspecified open wound, right lower leg, initial encounter (principal); R11.2 Nausea with vomiting, unspecified; R19.7 Diarrhea, unspecified; X58.XXXA Exposure to other specified factors, initial encounter; Y92.9 Unspecified place or not applicable; Y93.9 Activity, unspecified; Y99.9 Unspecified external cause status; A49.02 Methicillin resistant Staphylococcus aureus infection, unspecified site; I48.91 Unspecified atrial fibrillation; Z87.442 Personal history of urinary calculi; Z87.448 Personal history of other diseases of urinary system; K21.9 Gastro-esophageal reflux disease without esophagitis; G43.909 Migraine, unspecified, not intractable, without status migrainosus; Z86.718 Personal history of other venous thrombosis and embolism; J44.9 Chronic obstructive pulmonary disease, unspecified; G51.0 Bell's palsy; Z87.891 Personal history of nicotine dependence; Z79.899 Other long term (current) drug therapy; Z91.018 Allergy to other foods; Z91.013 Allergy to seafood; Z88.8 Allergy status to other drugs, medicaments and biological substances; Z88.1 Allergy status to other antibiotic agents; Z88.0 Allergy status to penicillin
CPT/HCPCS: J2405

== ENCOUNTER 2017-09-25 19:42 | Emergency (ER) | payer OTHER ==
[2017-09-25] MEDS: NS 1,000 ML IV (21:12)
[2017-09-25] MEDS: ONDANSETRON 4MG/2ML VIAL (J2405) IV (21:12)
[2017-09-25] MEDS: MORPHINE 4 MG/ML 1ML VIAL/SYRINGE (J2270) IV (21:13)
[2017-09-25 21:22] LABS: HEMOGLOBIN 12.8 g/dl (12.0-15.5); MEAN CORPUSCULAR HEMOGLOBIN 29.8 pg (27.0-33.0); MEAN CORPUSCULAR HGB CONC 32.8 g/dl (32.0-36.5); MEAN CORPUSCULAR VOLUME 90.7 fl (80.0-96.0); PLATELET COUNT, AUTOMATED 196 10^3/uL (150-450); RED CELL DISTRIBUTION WIDTH 13.1 % (11.5-14.5); WHITE BLOOD COUNT 4.9 10^3/uL (4.0-10.0)
[2017-09-25 21:32] LABS: INR 0.99; PROTHROMBIN TIME 13.2 SECONDS (12.1-14.4)
[2017-09-25 21:33] LABS: PARTIAL THROMBOPLASTIN TIME 29.2 SECONDS (25.4-37.6)
[2017-09-25 21:36] LABS: ANION GAP 6 MEQ/L (8-16); BLOOD UREA NITROGEN 13 MG/DL (7-18); CALCIUM LEVEL 8.2 MG/DL (8.5-10.1); CARBON DIOXIDE LEVEL 27 MEQ/L (21-32); CHLORIDE LEVEL 111 MEQ/L (98-107); CREATININE FOR GFR 1.17 MG/DL (0.55-1.30); GLOMERULAR FILTRATION RATE 51.7 (>51); GLUCOSE, FASTING 89 MG/DL (70-100); POTASSIUM SERUM 4.2 MEQ/L (3.5-5.1); SODIUM LEVEL 144 MEQ/L (136-145)
[2017-09-25] MEDS: OXYCODONE/APAP 5MG/325MG(BULK FOR ED) 1 TABLET PO (22:56)
== END 2017-09-25 23:03 | disposition home or self-care (01) ==
LOC: M ED 19:42
DX: M79.604 Pain in right leg (principal); S81.801A Unspecified open wound, right lower leg, initial encounter; X58.XXXA Exposure to other specified factors, initial encounter; Y92.89 Other specified places as the place of occurrence of the external cause; I10 Essential (primary) hypertension; K21.9 Gastro-esophageal reflux disease without esophagitis; K52.9 Noninfective gastroenteritis and colitis, unspecified; I48.91 Unspecified atrial fibrillation; J44.9 Chronic obstructive pulmonary disease, unspecified; Z87.19 Personal history of other diseases of the digestive system; Z87.442 Personal history of urinary calculi; Z87.440 Personal history of urinary (tract) infections; Z86.69 Personal history of other diseases of the nervous system and sense organs; Z86.718 Personal history of other venous thrombosis and embolism; Z87.891 Personal history of nicotine dependence; Z88.8 Allergy status to other drugs, medicaments and biological substances; Z88.2 Allergy status to sulfonamides; Z91.013 Allergy to seafood; Z91.018 Allergy to other foods; Z79.899 Other long term (current) drug therapy; Z79.51 Long term (current) use of inhaled steroids; Z79.01 Long term (current) use of anticoagulants
CPT/HCPCS: J2270

== ENCOUNTER 2017-09-27 17:03 | Emergency (ER) | payer OTHER ==
[2017-09-27] MEDS: NORCO, ANEXSIA 5/325MG TABLET (HYDROcodone/ACETAMINOPHEN) PO (18:31)
[2017-09-27] MEDS: CEPHALEXIN 500 MG CAP PO (18:31)
== END 2017-09-27 18:40 | disposition home or self-care (01) ==
LOC: M ED 17:03
DX: S81.801A Unspecified open wound, right lower leg, initial encounter (principal); G89.29 Other chronic pain; M79.604 Pain in right leg; G43.909 Migraine, unspecified, not intractable, without status migrainosus; R56.9 Unspecified convulsions; I10 Essential (primary) hypertension; J44.9 Chronic obstructive pulmonary disease, unspecified; Z86.718 Personal history of other venous thrombosis and embolism; K21.9 Gastro-esophageal reflux disease without esophagitis; Z87.442 Personal history of urinary calculi; Z79.01 Long term (current) use of anticoagulants; Z79.899 Other long term (current) drug therapy; Z91.018 Allergy to other foods; Z91.013 Allergy to seafood; Z88.1 Allergy status to other antibiotic agents; Z88.8 Allergy status to other drugs, medicaments and biological substances
CPT/HCPCS: 87186

== ENCOUNTER 2017-09-30 12:52 | Emergency (ER) | payer OTHER ==
[2017-09-30 13:38] LABS: BASO % 0.4 % (0.0-1.0); EOS % 0.6 % (0.0-3.0); HEMATOCRIT 43.4 % (36.0-47.0); HEMOGLOBIN 14.3 g/dl (12.0-15.5); IMMATURE GRANULOCYTE % 0.2 % (0-3.0); LYMPH # 1.5 10^3/uL (1.5-4.5); LYMPH % 31.3 % (24.0-44.0); MEAN CORPUSCULAR HEMOGLOBIN 29.9 pg (27.0-33.0); MEAN CORPUSCULAR HGB CONC 32.9 g/dl (32.0-36.5); MEAN CORPUSCULAR VOLUME 90.8 fl (80.0-96.0); MONO # 0.3 10^3/uL (0.0-0.8); MONO % 6.9 % (0.0-5.0); NEUTROPHILS # 2.8 10^3/uL (1.8-7.7); NEUTROPHILS % 60.6 % (36.0-66.0); PLATELET COUNT, AUTOMATED 195 10^3/uL (150-450); RED BLOOD COUNT 4.78 10^6/uL (4.00-5.40); WHITE BLOOD COUNT 4.6 10^3/uL (4.0-10.0)
[2017-09-30 13:55] LABS: ALBUMIN 3.4 GM/DL (3.2-5.2); ALBUMIN/GLOBULIN RATIO 0.97 (1.00-1.93); ALKALINE PHOSPHATASE 154 U/L (45-117); ALT/SGPT 31 U/L (12-78); ANION GAP 8 MEQ/L (8-16); AST/SGOT 26 U/L (7-37); BILIRUBIN,DIRECT < 0.1 MG/DL (0.0-0.2); BILIRUBIN,TOTAL 0.5 MG/DL (0.2-1.0); BLOOD UREA NITROGEN 10 MG/DL (7-18); CALCIUM LEVEL 8.9 MG/DL (8.5-10.1); CARBON DIOXIDE LEVEL 29 MEQ/L (21-32); CHLORIDE LEVEL 106 MEQ/L (98-107); CREATININE FOR GFR 1.13 MG/DL (0.55-1.30); GLOMERULAR FILTRATION RATE 53.8 (>51); GLUCOSE, FASTING 81 MG/DL (70-100); POTASSIUM SERUM 3.9 MEQ/L (3.5-5.1); SODIUM LEVEL 143 MEQ/L (136-145); TOTAL PROTEIN 6.9 GM/DL (6.4-8.2)
[2017-09-30 14:18] LABS: LIPASE 226 U/L (73-393)
[2017-09-30] MEDS ORDERED: ISOVUE-370 76% 100ML VIAL (Q9967) As Ordered (14:31)
[2017-09-30] MEDS: ONDANSETRON 4MG/2ML VIAL (J2405) IV ×2 (14:34→17:05)
[2017-09-30] MEDS: GASTROGRAFIN SOLUTION 30ML PO ×2 (14:35→15:10)
[2017-09-30] MEDS: NS 1,000 ML IV (14:35)
[2017-09-30] MEDS: MORPHINE 4 MG/ML 1ML VIAL/SYRINGE (J2270) IV (14:35)
[2017-09-30] MEDS: PERCOCET 5MG/325MG TAB PO (15:25)
== END 2017-09-30 19:25 | disposition home or self-care (01) ==
LOC: M ED 12:52
DX: S81.801D Unspecified open wound, right lower leg, subsequent encounter (principal); X58.XXXD Exposure to other specified factors, subsequent encounter; Y92.89 Other specified places as the place of occurrence of the external cause; R11.0 Nausea; R93.5 Abnormal findings on diagnostic imaging of other abdominal regions, including retroperitoneum; I48.91 Unspecified atrial fibrillation; E78.9 Disorder of lipoprotein metabolism, unspecified; K21.9 Gastro-esophageal reflux disease without esophagitis; M79.7 Fibromyalgia; F33.9 Major depressive disorder, recurrent, unspecified; F41.9 Anxiety disorder, unspecified; Z86.19 Personal history of other infectious and parasitic diseases; Z86.39 Personal history of other endocrine, nutritional and metabolic disease; Z98.890 Other specified postprocedural states; Z88.8 Allergy status to other drugs, medicaments and biological substances; Z88.2 Allergy status to sulfonamides; Z91.018 Allergy to other foods; Z91.013 Allergy to seafood; Z79.2 Long term (current) use of antibiotics; Z79.899 Other long term (current) drug therapy
CPT/HCPCS: J2270

== ENCOUNTER 2017-09-30 20:09 | Inpatient (IN) | payer OTHER ==
[2017-09-30 23:13] LABS: ETHYL ALCOHOL (ETHANOL) < 0.003 % (0.000-0.010)
[2017-09-30 23:13] LABS: AMPHETAMINES LEVEL URINE NEGATIVE (NEGATIVE); BARBITURATES URINE NEGATIVE (NEGATIVE); BENZODIAZEPINES URINE NEGATIVE (NEGATIVE); CANNABINOIDS URINE NEGATIVE (NEGATIVE); COCAINE METABOLITE URINE NEGATIVE (NEGATIVE); METHADONE URINE NEGATIVE (NEGATIVE); OPIATES URINE POSITIVE (NEGATIVE); PHENCYCLIDINE URINE NEGATIVE (NEGATIVE)
[2017-09-30] MEDS: APIXABAN 5 MG TAB (ELIQUIS) PO (23:14)
[2017-10-01] MEDS: SUCRALFATE 1 GM TAB PO ×2 (11:15→20:42)
[2017-10-01] MEDS: PANTOPRAZOLE 40MG TAB (PROTONIX) PO ×2 (11:15→20:42)
[2017-10-01] MEDS: PARoxetine 20 MG TAB PO (11:15)
[2017-10-01] MEDS: APIXABAN 5 MG TAB (ELIQUIS) PO ×2 (11:15→20:43)
[2017-10-01] MEDS: LISINOPRIL 10 MG TAB PO ×2 (11:15→20:43)
[2017-10-01] MEDS ORDERED: MOM 30ML SUSPENSION UDC PO (11:30)
[2017-10-01] MEDS ORDERED: MAALOX 30 ML SUSP *UDC PO (11:30)
[2017-10-01] MEDS: ACETAMINOPHEN TAB 650MG DOSE (2X325MG) PO (20:44)
[2017-10-02] MEDS: ONDANSETRON 4 MG ORAL DISINTEGRATING TAB (Q0162 PER 1MG) PO ×3 (06:50→21:17)
[2017-10-02] MEDS: SUCRALFATE 1 GM TAB PO ×2 (08:06→20:28)
[2017-10-02] MEDS: APIXABAN 5 MG TAB (ELIQUIS) PO ×2 (08:06→20:28)
[2017-10-02] MEDS: PANTOPRAZOLE 40MG TAB (PROTONIX) PO ×2 (08:06→20:28)
[2017-10-02] MEDS: PARoxetine 10MG TABLET PO (08:07)
[2017-10-02] MEDS: BACITRACIN OINT 30GM TOP ×2 (09:48→20:29)
[2017-10-02] MEDS: buPROPion (WELLBUTRIN SR) 100 MG SR TAB PO (14:58)
[2017-10-02] MEDS: LISINOPRIL 10 MG TAB PO (20:28)
[2017-10-02] MEDS: ARIPiprazole 2 MG TAB PO (20:28)
[2017-10-02] MEDS: traZODone 50 MG TAB PO (21:17)
[2017-10-03] MEDS: ACETAMINOPHEN TAB 650MG DOSE (2X325MG) PO (05:49)
[2017-10-03] MEDS: APIXABAN 5 MG TAB (ELIQUIS) PO ×2 (08:11→20:21)
[2017-10-03] MEDS: SUCRALFATE 1 GM TAB PO ×2 (08:11→20:59)
[2017-10-03] MEDS: buPROPion (WELLBUTRIN SR) 100 MG SR TAB PO (08:11)
[2017-10-03] MEDS: PARoxetine 20 MG TAB PO (08:11)
[2017-10-03] MEDS: PANTOPRAZOLE 40MG TAB (PROTONIX) PO ×2 (08:11→20:21)
[2017-10-03] MEDS: BACITRACIN OINT 30GM TOP ×2 (09:37→20:24)
[2017-10-03 09:46] LABS: HEMOGLOBIN 13.1 g/dl (12.0-15.5); MEAN CORPUSCULAR HEMOGLOBIN 29.9 pg (27.0-33.0); MEAN CORPUSCULAR HGB CONC 32.8 g/dl (32.0-36.5); MEAN CORPUSCULAR VOLUME 91.3 fl (80.0-96.0); PLATELET COUNT, AUTOMATED 193 10^3/uL (150-450); RED BLOOD COUNT 4.38 10^6/uL (4.00-5.40); WHITE BLOOD COUNT 4.5 10^3/uL (4.0-10.0)
[2017-10-03 10:22] LABS: C REACTIVE PROTEIN QUANTITATIV 0.56 MG/DL (0.00-0.30)
[2017-10-03 10:24] LABS: ERYTHROCYTE SEDIMENTATION RATE 12 mm/hr (0-30)
[2017-10-03] MEDS: ONDANSETRON 4 MG ORAL DISINTEGRATING TAB (Q0162 PER 1MG) PO (10:48)
[2017-10-03] MEDS: traZODone 50 MG TAB PO (20:21)
[2017-10-03] MEDS: ARIPiprazole 2 MG TAB PO (20:21)
[2017-10-03] MEDS: LISINOPRIL 10 MG TAB PO (20:23)
[2017-10-04] MEDS: BACITRACIN OINT 30GM TOP ×2 (08:20→21:33)
[2017-10-04] MEDS: APIXABAN 5 MG TAB (ELIQUIS) PO ×2 (08:20→20:53)
[2017-10-04] MEDS: PARoxetine 20 MG TAB PO (08:20)
[2017-10-04] MEDS: PANTOPRAZOLE 40MG TAB (PROTONIX) PO ×2 (08:20→20:53)
[2017-10-04] MEDS: buPROPion (WELLBUTRIN SR) 100 MG SR TAB PO (08:20)
[2017-10-04] MEDS: SUCRALFATE 1 GM TAB PO ×2 (08:22→16:57)
[2017-10-04] MEDS: DOXYCYCLINE HYCLATE 100 MG TAB PO ×2 (10:09→20:53)
[2017-10-04] MEDS: GABAPENTIN 100 MG CAP PO ×2 (14:25→20:52)
[2017-10-04] MEDS: traZODone 50 MG TAB PO (20:53)
[2017-10-04] MEDS: LISINOPRIL 10 MG TAB PO (20:53)
[2017-10-04] MEDS: ARIPiprazole 2 MG TAB PO (20:53)
[2017-10-04] MEDS: ACETAMINOPHEN TAB 650MG DOSE (2X325MG) PO (21:33)
[2017-10-05] MEDS: SUCRALFATE 1 GM TAB PO ×2 (07:22→16:30)
[2017-10-05] MEDS: PARoxetine 10MG TABLET PO (08:05)
[2017-10-05] MEDS: APIXABAN 5 MG TAB (ELIQUIS) PO ×2 (08:05→21:34)
[2017-10-05] MEDS: GABAPENTIN 100 MG CAP PO ×3 (08:05→21:35)
[2017-10-05] MEDS: DOXYCYCLINE HYCLATE 100 MG TAB PO ×2 (08:05→21:34)
[2017-10-05] MEDS: buPROPion **SR TABLET** (ZYBAN) 150MG PO (08:05)
[2017-10-05] MEDS: PANTOPRAZOLE 40MG TAB (PROTONIX) PO ×2 (08:05→21:35)
[2017-10-05] MEDS: BACITRACIN OINT 30GM TOP ×2 (08:05→21:05)
[2017-10-05] MEDS: TOPIRAMATE (TopAMAX) 25 MG TAB PO ×2 (10:05→21:35)
[2017-10-05 12:01] LABS: BEDSIDE GLUCOSE 89 MG/DL (70-105)
[2017-10-05] MEDS: ACETAMINOPHEN TAB 650MG DOSE (2X325MG) PO (12:02)
[2017-10-05] MEDS: ARIPiprazole 2 MG TAB PO (21:35)
[2017-10-05] MEDS: LISINOPRIL 10 MG TAB PO (21:35)
[2017-10-05] MEDS: traZODone 50 MG TAB PO (21:36)
[2017-10-06] MEDS: SUCRALFATE 1 GM TAB PO ×2 (06:31→17:02)
[2017-10-06 07:23] LABS: GLUCOSE, FASTING 99 MG/DL (70-100)
[2017-10-06] MEDS: GABAPENTIN 100 MG CAP PO ×3 (08:17→20:41)
[2017-10-06] MEDS: PANTOPRAZOLE 40MG TAB (PROTONIX) PO ×2 (08:17→20:41)
[2017-10-06] MEDS: TOPIRAMATE (TopAMAX) 25 MG TAB PO ×2 (08:17→20:41)
[2017-10-06] MEDS: buPROPion **SR TABLET** (ZYBAN) 150MG PO (08:17)
[2017-10-06] MEDS: DOXYCYCLINE HYCLATE 100 MG TAB PO ×2 (08:17→20:39)
[2017-10-06] MEDS: PARoxetine 10MG TABLET PO (08:17)
[2017-10-06] MEDS: APIXABAN 5 MG TAB (ELIQUIS) PO ×2 (08:18→20:39)
[2017-10-06] MEDS: BACITRACIN OINT 30GM TOP ×2 (09:01→20:42)
[2017-10-06 17:03] LABS: BEDSIDE GLUCOSE 96 MG/DL (70-105)
[2017-10-06] MEDS: LISINOPRIL 10 MG TAB PO (20:41)
[2017-10-06] MEDS: ARIPiprazole 2 MG TAB PO (20:41)
[2017-10-06] MEDS: traZODone 50 MG TAB PO (20:41)
[2017-10-07 06:19] LABS: BEDSIDE GLUCOSE 93 MG/DL (70-105)
[2017-10-07] MEDS: SUCRALFATE 1 GM TAB PO ×2 (07:10→17:21)
[2017-10-07] MEDS: PARoxetine 10MG TABLET PO (08:20)
[2017-10-07] MEDS: buPROPion **SR TABLET** (ZYBAN) 150MG PO (08:20)
[2017-10-07] MEDS: PANTOPRAZOLE 40MG TAB (PROTONIX) PO ×2 (08:20→20:39)
[2017-10-07] MEDS: TOPIRAMATE (TopAMAX) 25 MG TAB PO ×2 (08:20→20:39)
[2017-10-07] MEDS: GABAPENTIN 100 MG CAP PO ×3 (08:20→20:39)
[2017-10-07] MEDS: APIXABAN 5 MG TAB (ELIQUIS) PO ×2 (08:20→20:39)
[2017-10-07] MEDS: DOXYCYCLINE HYCLATE 100 MG TAB PO ×2 (08:20→20:39)
[2017-10-07] MEDS: BACITRACIN OINT 30GM TOP ×2 (09:00→22:07)
[2017-10-07 17:22] LABS: BEDSIDE GLUCOSE 112 MG/DL (70-105)
[2017-10-07] MEDS: LISINOPRIL 10 MG TAB PO (20:39)
[2017-10-07] MEDS: traZODone 50 MG TAB PO (20:39)
[2017-10-07] MEDS: ARIPiprazole 2 MG TAB PO (20:39)
[2017-10-08 06:33] LABS: BEDSIDE GLUCOSE 118 MG/DL (70-105)
[2017-10-08] MEDS: SUCRALFATE 1 GM TAB PO ×2 (06:34→16:30)
[2017-10-08] MEDS: PARoxetine 10MG TABLET PO ×2 (08:14→12:53)
[2017-10-08] MEDS: TOPIRAMATE (TopAMAX) 25 MG TAB PO ×2 (08:14→21:01)
[2017-10-08] MEDS: APIXABAN 5 MG TAB (ELIQUIS) PO ×2 (08:14→21:01)
[2017-10-08] MEDS: GABAPENTIN 100 MG CAP PO ×3 (08:14→21:03)
[2017-10-08] MEDS: DOXYCYCLINE HYCLATE 100 MG TAB PO ×2 (08:14→21:01)
[2017-10-08] MEDS: buPROPion **SR TABLET** (ZYBAN) 150MG PO (08:14)
[2017-10-08] MEDS: PANTOPRAZOLE 40MG TAB (PROTONIX) PO ×2 (08:14→21:01)
[2017-10-08] MEDS: BACITRACIN OINT 30GM TOP ×2 (08:15→21:21)
[2017-10-08] MEDS: ONDANSETRON 4 MG ORAL DISINTEGRATING TAB (Q0162 PER 1MG) PO (08:55)
[2017-10-08 16:28] LABS: BEDSIDE GLUCOSE 97 MG/DL (70-105)
[2017-10-08] MEDS: traZODone 50 MG TAB PO (21:01)
[2017-10-08] MEDS: LISINOPRIL 10 MG TAB PO (21:03)
[2017-10-08] MEDS: ARIPiprazole 2 MG TAB PO (21:03)
[2017-10-09 06:05] LABS: BEDSIDE GLUCOSE 117 MG/DL (70-105)
[2017-10-09] MEDS: SUCRALFATE 1 GM TAB PO ×2 (06:57→17:13)
[2017-10-09] MEDS: buPROPion (WELLBUTRIN SR) 100 MG SR TAB PO (08:18)
[2017-10-09] MEDS: PANTOPRAZOLE 40MG TAB (PROTONIX) PO ×2 (08:18→20:06)
[2017-10-09] MEDS: TOPIRAMATE (TopAMAX) 25 MG TAB PO ×2 (08:18→20:06)
[2017-10-09] MEDS: DOXYCYCLINE HYCLATE 100 MG TAB PO ×2 (08:18→20:06)
[2017-10-09] MEDS: GABAPENTIN 100 MG CAP PO ×3 (08:18→20:06)
[2017-10-09] MEDS: APIXABAN 5 MG TAB (ELIQUIS) PO ×2 (08:18→20:06)
[2017-10-09] MEDS: PARoxetine 20 MG TAB PO (08:18)
[2017-10-09] MEDS: BACITRACIN OINT 30GM TOP ×2 (08:19→21:07)
[2017-10-09] MEDS: ACETAMINOPHEN TAB 650MG DOSE (2X325MG) PO (15:18)
[2017-10-09 17:13] LABS: BEDSIDE GLUCOSE 91 MG/DL (70-105)
[2017-10-09] MEDS: LISINOPRIL 10 MG TAB PO (20:05)
[2017-10-09] MEDS: ARIPiprazole 2 MG TAB PO (20:06)
[2017-10-09] MEDS: traZODone 50 MG TAB PO (20:06)
[2017-10-10] MEDS: ACETAMINOPHEN TAB 650MG DOSE (2X325MG) PO ×2 (02:43→12:13)
[2017-10-10 02:54] LABS: BEDSIDE GLUCOSE 87 MG/DL (70-105)
[2017-10-10] MEDS: SUCRALFATE 1 GM TAB PO ×2 (07:19→16:38)
[2017-10-10] MEDS: GABAPENTIN 100 MG CAP PO ×3 (08:20→20:23)
[2017-10-10] MEDS: PARoxetine 20 MG TAB PO (08:20)
[2017-10-10] MEDS: buPROPion **SR TABLET** (ZYBAN) 150MG PO (08:20)
[2017-10-10] MEDS: DOXYCYCLINE HYCLATE 100 MG TAB PO ×2 (08:20→20:20)
[2017-10-10] MEDS: APIXABAN 5 MG TAB (ELIQUIS) PO ×2 (08:20→20:19)
[2017-10-10] MEDS: PANTOPRAZOLE 40MG TAB (PROTONIX) PO ×2 (08:20→20:20)
[2017-10-10] MEDS: TOPIRAMATE (TopAMAX) 25 MG TAB PO ×3 (08:21→20:20)
[2017-10-10] MEDS: BACITRACIN OINT 30GM TOP ×2 (08:22→20:06)
[2017-10-10] MEDS ORDERED: **PENDING PPD ENTRY XX (09:00)
[2017-10-10] MEDS ORDERED: TUBERCULIN PPD 5 UNITS/0.1 ML ID (13:30)
[2017-10-10 16:26] LABS: BEDSIDE GLUCOSE 122 MG/DL (70-105)
[2017-10-10] MEDS: TUBERCULIN PPD 5 UNITS/0.1 ML ID (18:10)
[2017-10-10] MEDS: ARIPiprazole 2 MG TAB PO (20:19)
[2017-10-10] MEDS: LISINOPRIL 10 MG TAB PO (20:20)
[2017-10-10] MEDS: traZODone 50 MG TAB PO (20:21)
[2017-10-11] MEDS: ACETAMINOPHEN TAB 650MG DOSE (2X325MG) PO (03:42)
[2017-10-11 06:20] LABS: BEDSIDE GLUCOSE 91 MG/DL (70-105)
[2017-10-11] MEDS: SUCRALFATE 1 GM TAB PO ×2 (06:30→16:35)
[2017-10-11] MEDS: DOXYCYCLINE HYCLATE 100 MG TAB PO ×2 (08:58→20:06)
[2017-10-11] MEDS: PANTOPRAZOLE 40MG TAB (PROTONIX) PO ×2 (08:58→20:06)
[2017-10-11] MEDS: APIXABAN 5 MG TAB (ELIQUIS) PO ×2 (08:58→20:06)
[2017-10-11] MEDS: GABAPENTIN 100 MG CAP PO ×3 (08:58→20:06)
[2017-10-11] MEDS: TOPIRAMATE (TopAMAX) 25 MG TAB PO ×4 (08:58→20:06)
[2017-10-11] MEDS: PARoxetine 20 MG TAB PO (08:58)
[2017-10-11] MEDS: BACITRACIN OINT 30GM TOP ×2 (09:00→20:07)
[2017-10-11] MEDS: LISINOPRIL 10 MG TAB PO (20:06)
[2017-10-11] MEDS: traZODone 50 MG TAB PO (20:06)
[2017-10-11] MEDS: ARIPiprazole 2 MG TAB PO (20:06)
[2017-10-12] MEDS: ACETAMINOPHEN TAB 650MG DOSE (2X325MG) PO (00:29)
[2017-10-12 06:31] LABS: BEDSIDE GLUCOSE 87 MG/DL (70-105)
[2017-10-12] MEDS: SUCRALFATE 1 GM TAB PO (06:31)
[2017-10-12] MEDS: TOPIRAMATE (TopAMAX) 25 MG TAB PO (08:14)
[2017-10-12] MEDS: DOXYCYCLINE HYCLATE 100 MG TAB PO (08:14)
[2017-10-12] MEDS: BACITRACIN OINT 30GM TOP (08:14)
[2017-10-12] MEDS: PARoxetine 20 MG TAB PO (08:14)
[2017-10-12] MEDS: APIXABAN 5 MG TAB (ELIQUIS) PO (08:14)
[2017-10-12] MEDS: GABAPENTIN 100 MG CAP PO (08:14)
[2017-10-12] MEDS: PANTOPRAZOLE 40MG TAB (PROTONIX) PO (08:14)
[2017-10-12] MEDS ORDERED: PPD DOCUMENTATION ENTRY MISC XX ×2 (10:00→18:00)
== END 2017-10-12 10:30 | disposition home or self-care (01) | DRG 753 ==
LOC: M PSY 10-02 15:47 → M ED INP 10-01 11:18 → M ED 20:09 → M PSY 10-01 12:33
DX: F31.9 Bipolar disorder, unspecified (principal); I50.9 Heart failure, unspecified; L03.116 Cellulitis of left lower limb; I48.91 Unspecified atrial fibrillation; J44.9 Chronic obstructive pulmonary disease, unspecified; F60.3 Borderline personality disorder; F43.21 Adjustment disorder with depressed mood; M79.7 Fibromyalgia; R25.1 Tremor, unspecified; N39.3 Stress incontinence (female) (male); E78.5 Hyperlipidemia, unspecified; K21.9 Gastro-esophageal reflux disease without esophagitis; Z79.01 Long term (current) use of anticoagulants; Z81.8 Family history of other mental and behavioral disorders; Z91.030 Bee allergy status; Z91.013 Allergy to seafood; Z88.8 Allergy status to other drugs, medicaments and biological substances; Z79.899 Other long term (current) drug therapy; Z88.1 Allergy status to other antibiotic agents; Z91.5 Personal history of self-harm; T43.205A Adverse effect of unspecified antidepressants, initial encounter

== ENCOUNTER 2017-10-29 19:10 | Inpatient (IN) | payer OTHER ==
[2017-10-29] MEDS: NS 1,000 ML IV (20:03)
[2017-10-29 20:27] LABS: BASO % 0.2 % (0.0-1.0); EOS # 0.1 10^3/uL (0.0-0.50); EOS % 1.4 % (0.0-3.0); HEMOGLOBIN 13.1 g/dl (12.0-15.5); IMMATURE GRANULOCYTE % 0.2 % (0-3.0); LYMPH # 1.5 10^3/uL (1.5-4.5); LYMPH % 34.2 % (24.0-44.0); MEAN CORPUSCULAR HEMOGLOBIN 29.9 pg (27.0-33.0); MEAN CORPUSCULAR HGB CONC 32.8 g/dl (32.0-36.5); MEAN CORPUSCULAR VOLUME 91.3 fl (80.0-96.0); MONO # 0.3 10^3/uL (0.0-0.8); MONO % 7.7 % (0.0-5.0); NEUTROPHILS # 2.5 10^3/uL (1.8-7.7); NEUTROPHILS % 56.3 % (36.0-66.0); PLATELET COUNT, AUTOMATED 169 10^3/uL (150-450); RED BLOOD COUNT 4.38 10^6/uL (4.00-5.40); RED CELL DISTRIBUTION WIDTH 12.9 % (11.5-14.5); WHITE BLOOD COUNT 4.4 10^3/uL (4.0-10.0)
[2017-10-29 20:46] LABS: ERYTHROCYTE SEDIMENTATION RATE 21 mm/hr (0-30)
[2017-10-29 20:54] LABS: ALBUMIN 3.1 GM/DL (3.2-5.2); ALKALINE PHOSPHATASE 128 U/L (45-117); ALT/SGPT 29 U/L (12-78); AMYLASE 68 U/L (25-115); ANION GAP 5 MEQ/L (8-16); AST/SGOT 27 U/L (7-37); BILIRUBIN,DIRECT < 0.1 MG/DL (0.0-0.2); BILIRUBIN,TOTAL 0.2 MG/DL (0.2-1.0); BLOOD UREA NITROGEN 12 MG/DL (7-18); C REACTIVE PROTEIN QUANTITATIV 0.66 MG/DL (0.00-0.30); CARBON DIOXIDE LEVEL 30 MEQ/L (21-32); CHLORIDE LEVEL 107 MEQ/L (98-107); CREATININE FOR GFR 0.98 MG/DL (0.55-1.30); GLOMERULAR FILTRATION RATE > 60.0 (>51); GLUCOSE, FASTING 83 MG/DL (70-100); LIPASE 373 U/L (73-393); POTASSIUM SERUM 4.3 MEQ/L (3.5-5.1); SODIUM LEVEL 142 MEQ/L (136-145); TOTAL PROTEIN 6.2 GM/DL (6.4-8.2)
[2017-10-29 20:54] LABS: LACTIC ACID SEPSIS PROTOCOL 0.7 MMOL/L (0.4-2.0)
[2017-10-29] MEDS: GABAPENTIN 100 MG CAP PO (21:00)
[2017-10-29] MEDS: DOXYCYCLINE HYCLATE 100 MG TAB PO (21:00)
[2017-10-29] MEDS: ARIPiprazole 2 MG TAB PO (21:00)
[2017-10-29] MEDS: TOPIRAMATE (TopAMAX) 25 MG TAB PO (21:00)
[2017-10-29] MEDS: PANTOPRAZOLE 40MG TAB (PROTONIX) PO (21:00)
[2017-10-29] MEDS: LISINOPRIL 10 MG TAB PO (21:00)
[2017-10-29] MEDS: APIXABAN 5 MG TAB (ELIQUIS) PO (21:00)
[2017-10-29] MEDS: MORPHINE 4 MG/ML 1ML VIAL/SYRINGE (J2270) IV (21:28)
[2017-10-29 21:52] LABS: SALICYLATE LEVEL < 1.7 MG/DL (5.0-30.0)
[2017-10-29 21:58] LABS: ETHYL ALCOHOL (ETHANOL) < 0.003 % (0.000-0.010)
[2017-10-29 22:00] LABS: ACETAMINOPHEN LEVEL < 2.0 UG/ML (10.0-30.0)
[2017-10-29 22:26] LABS: KETONE, URINE AUTO RFX NEGATIVE (NEGATIVE); LEUKOCYTE ESTERASE UR AUTO RFX NEGATIVE (NEGATIVE); NITRITE, URINE AUTO RFX NEGATIVE (NEGATIVE); RBC, URINE AUTO RFX 1 /HPF (0-3); SPECIFIC GRAVITY UR AUTO RFX 1.003 (1.002-1.035); SQUAM EPITHELIAL CELL UR AURFX 1 /HPF (0-6); WBC, URINE AUTO RFX 0 /HPF (0-3)
[2017-10-29 22:40] LABS: AMPHETAMINES LEVEL URINE NEGATIVE (NEGATIVE); BARBITURATES URINE NEGATIVE (NEGATIVE); BENZODIAZEPINES URINE NEGATIVE (NEGATIVE); CANNABINOIDS URINE NEGATIVE (NEGATIVE); COCAINE METABOLITE URINE NEGATIVE (NEGATIVE); METHADONE URINE NEGATIVE (NEGATIVE); OPIATES URINE POSITIVE (NEGATIVE); PHENCYCLIDINE URINE NEGATIVE (NEGATIVE)
[2017-10-29] MEDS ORDERED: MOM 30ML SUSPENSION UDC PO (23:00)
[2017-10-29] MEDS ORDERED: MAALOX 30 ML SUSP *UDC PO (23:00)
[2017-10-30] MEDS: PARoxetine 20 MG TAB PO (08:51)
[2017-10-30] MEDS: TOPIRAMATE (TopAMAX) 25 MG TAB PO ×2 (08:51→21:33)
[2017-10-30] MEDS: APIXABAN 5 MG TAB (ELIQUIS) PO ×2 (08:51→21:33)
[2017-10-30] MEDS: SUCRALFATE 1 GM TAB PO ×2 (08:51→21:33)
[2017-10-30] MEDS: GABAPENTIN 100 MG CAP PO ×3 (08:51→21:33)
[2017-10-30] MEDS: DOXYCYCLINE HYCLATE 100 MG TAB PO (08:51)
[2017-10-30 11:10] LABS: BASO % 0.2 % (0.0-1.0); EOS # 0.1 10^3/uL (0.0-0.50); EOS % 1.4 % (0.0-3.0); HEMATOCRIT 38.7 % (36.0-47.0); HEMOGLOBIN 13.1 g/dl (12.0-15.5); IMMATURE GRANULOCYTE % 0.2 % (0-3.0); LYMPH # 1.5 10^3/uL (1.5-4.5); LYMPH % 29.3 % (24.0-44.0); MEAN CORPUSCULAR HGB CONC 33.9 g/dl (32.0-36.5); MEAN CORPUSCULAR VOLUME 88.8 fl (80.0-96.0); MONO # 0.4 10^3/uL (0.0-0.8); MONO % 8.3 % (0.0-5.0); NEUTROPHILS # 3.1 10^3/uL (1.8-7.7); NEUTROPHILS % 60.6 % (36.0-66.0); PLATELET COUNT, AUTOMATED 186 10^3/uL (150-450); RED BLOOD COUNT 4.36 10^6/uL (4.00-5.40); RED CELL DISTRIBUTION WIDTH 12.9 % (11.5-14.5); WHITE BLOOD COUNT 5.2 10^3/uL (4.0-10.0)
[2017-10-30 11:51] LABS: ALBUMIN 3.1 GM/DL (3.2-5.2); ALBUMIN/GLOBULIN RATIO 0.97 (1.00-1.93); ALKALINE PHOSPHATASE 129 U/L (45-117); ALT/SGPT 35 U/L (12-78); ANION GAP 6 MEQ/L (8-16); AST/SGOT 27 U/L (7-37); BILIRUBIN,TOTAL 0.4 MG/DL (0.2-1.0); BLOOD UREA NITROGEN 14 MG/DL (7-18); CALCIUM LEVEL 8.8 MG/DL (8.5-10.1); CARBON DIOXIDE LEVEL 28 MEQ/L (21-32); CHLORIDE LEVEL 106 MEQ/L (98-107); CREATININE FOR GFR 0.96 MG/DL (0.55-1.30); GLOMERULAR FILTRATION RATE > 60.0 (>51); GLUCOSE, FASTING 88 MG/DL (70-100); POTASSIUM SERUM 4.1 MEQ/L (3.5-5.1); SODIUM LEVEL 140 MEQ/L (136-145); TOTAL PROTEIN 6.3 GM/DL (6.4-8.2)
[2017-10-30] MEDS: LACTOBACILLUS ACIDOPHILUS CAP (BACID) PO ×2 (14:29→21:33)
[2017-10-30] MEDS ORDERED: PROHANCE 279.3MG/ML 15ML VIAL (A9576) As Ordered (20:45)
[2017-10-30] MEDS ORDERED: PROHANCE 279.3MG/ML 5ML VIAL (A9576) As Ordered (20:46)
[2017-10-30] MEDS: PANTOPRAZOLE 40MG TAB (PROTONIX) PO (21:32)
[2017-10-30] MEDS: LISINOPRIL 10 MG TAB PO (21:33)
[2017-10-30] MEDS: traZODone 50 MG TAB PO (21:35)
[2017-10-31 07:23] LABS: BASO % 0.2 % (0.0-1.0); EOS # 0.1 10^3/uL (0.0-0.50); EOS % 1.9 % (0.0-3.0); HEMATOCRIT 39.7 % (36.0-47.0); IMMATURE GRANULOCYTE % 0.2 % (0-3.0); LYMPH # 1.9 10^3/uL (1.5-4.5); LYMPH % 44.2 % (24.0-44.0); MEAN CORPUSCULAR HEMOGLOBIN 29.9 pg (27.0-33.0); MEAN CORPUSCULAR HGB CONC 32.7 g/dl (32.0-36.5); MEAN CORPUSCULAR VOLUME 91.3 fl (80.0-96.0); MONO # 0.4 10^3/uL (0.0-0.8); MONO % 8.2 % (0.0-5.0); NEUTROPHILS # 1.9 10^3/uL (1.8-7.7); NEUTROPHILS % 45.3 % (36.0-66.0); PLATELET COUNT, AUTOMATED 178 10^3/uL (150-450); RED BLOOD COUNT 4.35 10^6/uL (4.00-5.40); WHITE BLOOD COUNT 4.3 10^3/uL (4.0-10.0)
[2017-10-31] MEDS: SUCRALFATE 1 GM TAB PO ×2 (07:32→17:07)
[2017-10-31 08:04] LABS: ALBUMIN 2.9 GM/DL (3.2-5.2); ALBUMIN/GLOBULIN RATIO 0.85 (1.00-1.93); ALKALINE PHOSPHATASE 117 U/L (45-117); ALT/SGPT 31 U/L (12-78); ANION GAP 7 MEQ/L (8-16); AST/SGOT 21 U/L (7-37); BILIRUBIN,TOTAL 0.5 MG/DL (0.2-1.0); BLOOD UREA NITROGEN 18 MG/DL (7-18); CALCIUM LEVEL 8.7 MG/DL (8.5-10.1); CARBON DIOXIDE LEVEL 28 MEQ/L (21-32); CHLORIDE LEVEL 106 MEQ/L (98-107); CREATININE FOR GFR 1.05 MG/DL (0.55-1.30); GLOMERULAR FILTRATION RATE 58.6 (>51); GLUCOSE, FASTING 90 MG/DL (70-100); POTASSIUM SERUM 3.7 MEQ/L (3.5-5.1); SODIUM LEVEL 141 MEQ/L (136-145); TOTAL PROTEIN 6.3 GM/DL (6.4-8.2)
[2017-10-31] MEDS: GABAPENTIN 100 MG CAP PO ×3 (08:44→21:29)
[2017-10-31] MEDS: PARoxetine 20 MG TAB PO (08:44)
[2017-10-31] MEDS: TOPIRAMATE (TopAMAX) 25 MG TAB PO ×2 (08:44→21:29)
[2017-10-31] MEDS: LACTOBACILLUS ACIDOPHILUS CAP (BACID) PO ×2 (08:44→21:30)
[2017-10-31] MEDS: APIXABAN 5 MG TAB (ELIQUIS) PO ×2 (08:44→21:28)
[2017-10-31] MEDS: PANTOPRAZOLE 40MG TAB (PROTONIX) PO (21:29)
[2017-10-31] MEDS: LISINOPRIL 10 MG TAB PO (21:29)
[2017-10-31] MEDS: traZODone 50 MG TAB PO (21:29)
[2017-11-01] MEDS: SUCRALFATE 1 GM TAB PO ×2 (07:27→16:30)
[2017-11-01] MEDS: LACTOBACILLUS ACIDOPHILUS CAP (BACID) PO ×2 (08:43→20:25)
[2017-11-01] MEDS: PARoxetine 20 MG TAB PO (08:43)
[2017-11-01] MEDS: GABAPENTIN 100 MG CAP PO ×3 (08:43→20:25)
[2017-11-01] MEDS: TOPIRAMATE (TopAMAX) 25 MG TAB PO ×2 (08:43→20:25)
[2017-11-01] MEDS: APIXABAN 5 MG TAB (ELIQUIS) PO ×2 (08:43→20:23)
[2017-11-01] MEDS: ONDANSETRON 4 MG ORAL DISINTEGRATING TAB (Q0162 PER 1MG) PO (12:30)
[2017-11-01] MEDS: LISINOPRIL 10 MG TAB PO (20:24)
[2017-11-01] MEDS: traZODone 50 MG TAB PO (20:25)
[2017-11-01] MEDS: PANTOPRAZOLE 40MG TAB (PROTONIX) PO (20:25)
[2017-11-02] MEDS: ONDANSETRON 4 MG ORAL DISINTEGRATING TAB (Q0162 PER 1MG) PO ×2 (04:18→11:08)
[2017-11-02] MEDS: SUCRALFATE 1 GM TAB PO ×2 (06:34→16:37)
[2017-11-02] MEDS: LACTOBACILLUS ACIDOPHILUS CAP (BACID) PO ×2 (08:55→21:48)
[2017-11-02] MEDS: TOPIRAMATE (TopAMAX) 25 MG TAB PO ×2 (08:55→21:48)
[2017-11-02] MEDS: APIXABAN 5 MG TAB (ELIQUIS) PO ×2 (08:55→21:48)
[2017-11-02] MEDS: GABAPENTIN 100 MG CAP PO ×3 (08:55→21:48)
[2017-11-02] MEDS: PARoxetine 20 MG TAB PO (08:55)
[2017-11-02] MEDS: PANTOPRAZOLE 40MG TAB (PROTONIX) PO (21:48)
[2017-11-02] MEDS: LISINOPRIL 10 MG TAB PO (21:49)
[2017-11-02] MEDS: traZODone 50 MG TAB PO (21:49)
[2017-11-03] MEDS: ONDANSETRON 4 MG ORAL DISINTEGRATING TAB (Q0162 PER 1MG) PO ×2 (03:00→13:05)
[2017-11-03] MEDS: SUCRALFATE 1 GM TAB PO ×2 (06:31→16:39)
[2017-11-03] MEDS: APIXABAN 5 MG TAB (ELIQUIS) PO ×2 (08:36→20:18)
[2017-11-03] MEDS: LACTOBACILLUS ACIDOPHILUS CAP (BACID) PO ×2 (08:36→20:18)
[2017-11-03] MEDS: TOPIRAMATE (TopAMAX) 25 MG TAB PO ×2 (08:36→20:18)
[2017-11-03] MEDS: PARoxetine 20 MG TAB PO (08:36)
[2017-11-03] MEDS: GABAPENTIN 100 MG CAP PO ×3 (08:36→20:18)
[2017-11-03] MEDS: hydrOXYzine 25 MG TAB PO (13:04)
[2017-11-03] MEDS: ACETAMINOPHEN TAB 650MG DOSE (2X325MG) PO (15:56)
[2017-11-03] MEDS: traZODone 50 MG TAB PO (20:18)
[2017-11-03] MEDS: PANTOPRAZOLE 40MG TAB (PROTONIX) PO (20:18)
[2017-11-03] MEDS: LISINOPRIL 10 MG TAB PO (20:20)
[2017-11-04] MEDS: SUCRALFATE 1 GM TAB PO ×2 (06:32→16:49)
[2017-11-04] MEDS: APIXABAN 5 MG TAB (ELIQUIS) PO ×2 (08:50→20:10)
[2017-11-04] MEDS: PARoxetine 20 MG TAB PO (08:50)
[2017-11-04] MEDS: LACTOBACILLUS ACIDOPHILUS CAP (BACID) PO ×2 (08:51→20:10)
[2017-11-04] MEDS: GABAPENTIN 100 MG CAP PO ×3 (08:51→20:10)
[2017-11-04] MEDS: TOPIRAMATE (TopAMAX) 25 MG TAB PO ×2 (08:51→20:10)
[2017-11-04] MEDS: traZODone 50 MG TAB PO (20:10)
[2017-11-04] MEDS: PANTOPRAZOLE 40MG TAB (PROTONIX) PO (20:10)
[2017-11-04] MEDS: LISINOPRIL 10 MG TAB PO (20:11)
[2017-11-05] MEDS: ACETAMINOPHEN TAB 650MG DOSE (2X325MG) PO (01:53)
[2017-11-05] MEDS: SUCRALFATE 1 GM TAB PO (06:20)
[2017-11-05] MEDS: LACTOBACILLUS ACIDOPHILUS CAP (BACID) PO (08:31)
[2017-11-05] MEDS: GABAPENTIN 100 MG CAP PO (08:31)
[2017-11-05] MEDS: APIXABAN 5 MG TAB (ELIQUIS) PO (08:31)
[2017-11-05] MEDS: TOPIRAMATE (TopAMAX) 25 MG TAB PO (08:31)
[2017-11-05] MEDS: PARoxetine 20 MG TAB PO (08:31)
== END 2017-11-05 11:33 | disposition home or self-care (01) | DRG 753 ==
LOC: M PSY 10-30 00:59 → M ED 19:10 → M ED INP 22:53
DX: F31.9 Bipolar disorder, unspecified (principal); L03.116 Cellulitis of left lower limb; I48.91 Unspecified atrial fibrillation; J44.9 Chronic obstructive pulmonary disease, unspecified; E78.5 Hyperlipidemia, unspecified; F60.3 Borderline personality disorder; M79.7 Fibromyalgia; K21.9 Gastro-esophageal reflux disease without esophagitis; G47.33 Obstructive sleep apnea (adult) (pediatric); H40.9 Unspecified glaucoma; N39.3 Stress incontinence (female) (male); G89.29 Other chronic pain; Z91.013 Allergy to seafood; Z88.1 Allergy status to other antibiotic agents; Z91.030 Bee allergy status; Z86.718 Personal history of other venous thrombosis and embolism; Z88.8 Allergy status to other drugs, medicaments and biological substances; Z79.899 Other long term (current) drug therapy; Z88.2 Allergy status to sulfonamides; Z79.01 Long term (current) use of anticoagulants; Z63.4 Disappearance and death of family member

== ENCOUNTER 2017-11-08 18:44 | Emergency (ER) | payer OTHER ==
[2017-11-08] MEDS: ONDANSETRON 4 MG ORAL DISINTEGRATING TAB (Q0162 PER 1MG) PO (22:43)
[2017-11-08] MEDS: NORCO, ANEXSIA 5/325MG TABLET (HYDROcodone/ACETAMINOPHEN) PO (22:44)
[2017-11-08] MEDS: CEPHALEXIN 500 MG CAP PO (22:44)
[2017-11-08 22:57] LABS: BASO % 0.4 % (0.0-1.0); EOS # 0.1 10^3/uL (0.0-0.50); EOS % 1.3 % (0.0-3.0); HEMATOCRIT 38.3 % (36.0-47.0); HEMOGLOBIN 12.8 g/dl (12.0-15.5); IMMATURE GRANULOCYTE % 0.2 % (0-3.0); LYMPH % 35.7 % (24.0-44.0); MEAN CORPUSCULAR HEMOGLOBIN 30.3 pg (27.0-33.0); MEAN CORPUSCULAR HGB CONC 33.4 g/dl (32.0-36.5); MEAN CORPUSCULAR VOLUME 90.8 fl (80.0-96.0); MONO # 0.4 10^3/uL (0.0-0.8); MONO % 7.1 % (0.0-5.0); NEUTROPHILS # 3.1 10^3/uL (1.8-7.7); NEUTROPHILS % 55.3 % (36.0-66.0); PLATELET COUNT, AUTOMATED 207 10^3/uL (150-450); RED BLOOD COUNT 4.22 10^6/uL (4.00-5.40); RED CELL DISTRIBUTION WIDTH 13.2 % (11.5-14.5); WHITE BLOOD COUNT 5.5 10^3/uL (4.0-10.0)
[2017-11-08 23:14] LABS: ANION GAP 6 MEQ/L (8-16); BLOOD UREA NITROGEN 12 MG/DL (7-18); C REACTIVE PROTEIN QUANTITATIV 1.52 MG/DL (0.00-0.30); CALCIUM LEVEL 8.3 MG/DL (8.5-10.1); CARBON DIOXIDE LEVEL 29 MEQ/L (21-32); CHLORIDE LEVEL 110 MEQ/L (98-107); CREATININE FOR GFR 1.06 MG/DL (0.55-1.30); GLUCOSE, FASTING 88 MG/DL (70-100); POTASSIUM SERUM 3.8 MEQ/L (3.5-5.1); SODIUM LEVEL 145 MEQ/L (136-145)
== END 2017-11-09 00:07 | disposition home or self-care (01) ==
LOC: M ED 11-09 00:07
DX: L03.115 Cellulitis of right lower limb (principal); S80.11XA Contusion of right lower leg, initial encounter; W22.8XXA Striking against or struck by other objects, initial encounter; Y92.018 Other place in single-family (private) house as the place of occurrence of the external cause; J44.9 Chronic obstructive pulmonary disease, unspecified; I10 Essential (primary) hypertension; K21.9 Gastro-esophageal reflux disease without esophagitis; I48.91 Unspecified atrial fibrillation; R56.9 Unspecified convulsions; E78.9 Disorder of lipoprotein metabolism, unspecified; G43.909 Migraine, unspecified, not intractable, without status migrainosus; Z79.899 Other long term (current) drug therapy; Z79.01 Long term (current) use of anticoagulants; Z88.1 Allergy status to other antibiotic agents; Z88.2 Allergy status to sulfonamides; Z88.8 Allergy status to other drugs, medicaments and biological substances; Z91.013 Allergy to seafood
CPT/HCPCS: Q0162

== ENCOUNTER 2017-11-12 01:23 | Emergency (ER) | payer OTHER ==
[2017-11-12 01:47] LABS: BASO % 0.2 % (0.0-1.0); EOS # 0.1 10^3/uL (0.0-0.50); EOS % 2.1 % (0.0-3.0); HEMATOCRIT 39.3 % (36.0-47.0); HEMOGLOBIN 13.1 g/dl (12.0-15.5); IMMATURE GRANULOCYTE % 0.4 % (0-3.0); LYMPH % 35.5 % (24.0-44.0); MEAN CORPUSCULAR HEMOGLOBIN 30.2 pg (27.0-33.0); MEAN CORPUSCULAR HGB CONC 33.3 g/dl (32.0-36.5); MEAN CORPUSCULAR VOLUME 90.6 fl (80.0-96.0); MONO # 0.5 10^3/uL (0.0-0.8); MONO % 9.4 % (0.0-5.0); NEUTROPHILS # 2.9 10^3/uL (1.8-7.7); NEUTROPHILS % 52.4 % (36.0-66.0); PLATELET COUNT, AUTOMATED 216 10^3/uL (150-450); RED BLOOD COUNT 4.34 10^6/uL (4.00-5.40); RED CELL DISTRIBUTION WIDTH 13.2 % (11.5-14.5); WHITE BLOOD COUNT 5.6 10^3/uL (4.0-10.0)
[2017-11-12] MEDS: CHARCOAL ACTIVATED LIQUID 25 GM/120 ML BTL PO (02:15)
[2017-11-12] MEDS: NS 1,000 ML IV (02:15)
[2017-11-12 02:20] LABS: ALBUMIN 3.1 GM/DL (3.2-5.2); ALBUMIN/GLOBULIN RATIO 0.91 (1.00-1.93); ALKALINE PHOSPHATASE 119 U/L (45-117); ALT/SGPT 26 U/L (12-78); ANION GAP 8 MEQ/L (8-16); AST/SGOT 18 U/L (7-37); BILIRUBIN,DIRECT < 0.1 MG/DL (0.0-0.2); BILIRUBIN,TOTAL 0.3 MG/DL (0.2-1.0); BLOOD UREA NITROGEN 19 MG/DL (7-18); CARBON DIOXIDE LEVEL 27 MEQ/L (21-32); CHLORIDE LEVEL 108 MEQ/L (98-107); CPK CREATINE PHOSPHOKINASE 146 U/L (26-192); CREATININE FOR GFR 1.14 MG/DL (0.55-1.30); ETHYL ALCOHOL (ETHANOL) 0.005 % (0.000-0.010); GLOMERULAR FILTRATION RATE 53.3 (>51); GLUCOSE, FASTING 85 MG/DL (70-100); POTASSIUM SERUM 3.6 MEQ/L (3.5-5.1); SALICYLATE LEVEL < 1.7 MG/DL (5.0-30.0); SODIUM LEVEL 143 MEQ/L (136-145); TOTAL PROTEIN 6.5 GM/DL (6.4-8.2)
[2017-11-12 02:58] LABS: ACETAMINOPHEN LEVEL < 2.0 UG/ML (10.0-30.0)
[2017-11-12 04:43] LABS: AMPHETAMINES LEVEL URINE NEGATIVE (NEGATIVE); BARBITURATES URINE NEGATIVE (NEGATIVE); BENZODIAZEPINES URINE NEGATIVE (NEGATIVE); CANNABINOIDS URINE NEGATIVE (NEGATIVE); COCAINE METABOLITE URINE NEGATIVE (NEGATIVE); METHADONE URINE NEGATIVE (NEGATIVE); OPIATES URINE NEGATIVE (NEGATIVE); PHENCYCLIDINE URINE NEGATIVE (NEGATIVE)
[2017-11-12] MEDS: APIXABAN 5 MG TAB (ELIQUIS) PO (20:36)
[2017-11-12] MEDS: traZODone 50 MG TAB PO (20:36)
[2017-11-12] MEDS: SUCRALFATE 1 GM TAB PO (20:36)
[2017-11-12] MEDS: PANTOPRAZOLE 40MG TAB (PROTONIX) PO (20:36)
[2017-11-12] MEDS: TOPIRAMATE (TopAMAX) 25 MG TAB PO (20:36)
[2017-11-12] MEDS: GABAPENTIN 100 MG CAP PO (20:36)
[2017-11-12] MEDS: LISINOPRIL 10 MG TAB PO (20:37)
== END 2017-11-12 23:51 | disposition short-term general hospital (02) ==
LOC: M ED 01:23
DX: T46.4X2A Poisoning by angiotensin-converting-enzyme inhibitors, intentional self-harm, initial encounter (principal); X58.XXXA Exposure to other specified factors, initial encounter; Y92.89 Other specified places as the place of occurrence of the external cause; I10 Essential (primary) hypertension; I48.91 Unspecified atrial fibrillation; J44.9 Chronic obstructive pulmonary disease, unspecified; Z86.718 Personal history of other venous thrombosis and embolism; Z79.01 Long term (current) use of anticoagulants; F17.200 Nicotine dependence, unspecified, uncomplicated
CPT/HCPCS: 93005

== ENCOUNTER 2017-11-19 21:51 | Emergency (ER) | payer OTHER ==
[2017-11-20 00:41] LABS: ANION GAP 10 MEQ/L (8-16); BLOOD UREA NITROGEN 16 MG/DL (7-18); CALCIUM LEVEL 8.6 MG/DL (8.5-10.1); CARBON DIOXIDE LEVEL 22 MEQ/L (21-32); CHLORIDE LEVEL 111 MEQ/L (98-107); CREATININE FOR GFR 1.04 MG/DL (0.55-1.30); GLOMERULAR FILTRATION RATE 59.2 (>51); GLUCOSE, FASTING 103 MG/DL (70-100); POTASSIUM SERUM 3.7 MEQ/L (3.5-5.1); SODIUM LEVEL 143 MEQ/L (136-145)
[2017-11-20] MEDS: NORCO 5/325MG TABLET (BULK FOR ED) PO (01:45)
== END 2017-11-20 01:51 | disposition home or self-care (01) ==
LOC: M ED 11-20 01:51
DX: I80.8 Phlebitis and thrombophlebitis of other sites (principal); I48.91 Unspecified atrial fibrillation; I10 Essential (primary) hypertension; E78.5 Hyperlipidemia, unspecified; J44.9 Chronic obstructive pulmonary disease, unspecified; F17.200 Nicotine dependence, unspecified, uncomplicated
CPT/HCPCS: 93971

== ENCOUNTER 2017-11-24 18:11 | Emergency (ER) | payer OTHER ==
[2017-11-24] MEDS ORDERED: MORPHINE 4 MG/ML 1ML VIAL/SYRINGE (J2270) IV (18:30)
[2017-11-24] MEDS ORDERED: ONDANSETRON 4MG/2ML VIAL (J2405) IV (18:30)
[2017-11-24 18:59] LABS: KETONE, URINE AUTO RFX NEGATIVE (NEGATIVE); MUCUS, URINE RFX SMALL (NEGATIVE); NITRITE, URINE AUTO RFX NEGATIVE (NEGATIVE); RBC, URINE AUTO RFX 1 /HPF (0-3); SPECIFIC GRAVITY UR AUTO RFX 1.024 (1.002-1.035); SQUAM EPITHELIAL CELL UR AURFX 13 /HPF (0-6); WBC, URINE AUTO RFX 2 /HPF (0-3)
[2017-11-24 19:01] LABS: LEUKOCYTE ESTERASE UR AUTO RFX TRACE (NEGATIVE)
[2017-11-24 19:16] LABS: BASO % 0.5 % (0.0-1.0); EOS # 0.1 10^3/uL (0.0-0.50); EOS % 2.3 % (0.0-3.0); HEMATOCRIT 39.5 % (36.0-47.0); HEMOGLOBIN 13.1 g/dl (12.0-15.5); IMMATURE GRANULOCYTE % 0.5 % (0-3.0); LYMPH # 1.9 10^3/uL (1.5-4.5); LYMPH % 42.7 % (24.0-44.0); MEAN CORPUSCULAR HEMOGLOBIN 30.2 pg (27.0-33.0); MEAN CORPUSCULAR HGB CONC 33.2 g/dl (32.0-36.5); MONO # 0.4 10^3/uL (0.0-0.8); MONO % 7.9 % (0.0-5.0); NEUTROPHILS # 2.1 10^3/uL (1.8-7.7); NEUTROPHILS % 46.1 % (36.0-66.0); RED BLOOD COUNT 4.34 10^6/uL (4.00-5.40); WHITE BLOOD COUNT 4.4 10^3/uL (4.0-10.0)
[2017-11-24 19:46] LABS: ALBUMIN 3.1 GM/DL (3.2-5.2); ALBUMIN/GLOBULIN RATIO 0.89 (1.00-1.93); ALKALINE PHOSPHATASE 134 U/L (45-117); ALT/SGPT 35 U/L (12-78); AMYLASE 45 U/L (25-115); ANION GAP 5 MEQ/L (8-16); AST/SGOT 20 U/L (7-37); BILIRUBIN,DIRECT < 0.1 MG/DL (0.0-0.2); BILIRUBIN,TOTAL 0.1 MG/DL (0.2-1.0); BLOOD UREA NITROGEN 13 MG/DL (7-18); CALCIUM LEVEL 8.6 MG/DL (8.5-10.1); CARBON DIOXIDE LEVEL 27 MEQ/L (21-32); CHLORIDE LEVEL 113 MEQ/L (98-107); CREATININE FOR GFR 0.94 MG/DL (0.55-1.30); GLOMERULAR FILTRATION RATE > 60.0 (>51); GLUCOSE, FASTING 90 MG/DL (70-100); LIPASE 241 U/L (73-393); POTASSIUM SERUM 3.6 MEQ/L (3.5-5.1); SODIUM LEVEL 145 MEQ/L (136-145); TOTAL PROTEIN 6.6 GM/DL (6.4-8.2)
[2017-11-24] MEDS ORDERED: ACETAMINOPHEN 650MG ER TAB (TYLENOL ARTHRITIS) PO (20:15)
[2017-11-24] MEDS: ONDANSETRON 4 MG ORAL DISINTEGRATING TAB (Q0162 PER 1MG) PO (20:16)
[2017-11-24] MEDS: MORPHINE 4 MG/ML 1ML VIAL/SYRINGE (J2270) IV (21:00)
[2017-11-24] MEDS: ACETAMINOPHEN 650MG ER TAB (TYLENOL ARTHRITIS) PO (21:03)
== END 2017-11-24 21:57 | disposition home or self-care (01) ==
LOC: M ED 18:11
DX: R79.9 Abnormal finding of blood chemistry, unspecified (principal); R10.9 Unspecified abdominal pain; R11.2 Nausea with vomiting, unspecified; R19.7 Diarrhea, unspecified; J44.9 Chronic obstructive pulmonary disease, unspecified; I10 Essential (primary) hypertension; E78.5 Hyperlipidemia, unspecified; I48.91 Unspecified atrial fibrillation; G43.909 Migraine, unspecified, not intractable, without status migrainosus; Z86.69 Personal history of other diseases of the nervous system and sense organs; Z86.718 Personal history of other venous thrombosis and embolism; Z79.899 Other long term (current) drug therapy; Z79.01 Long term (current) use of anticoagulants; Z88.1 Allergy status to other antibiotic agents; Z88.2 Allergy status to sulfonamides; Z88.8 Allergy status to other drugs, medicaments and biological substances; Z91.013 Allergy to seafood; Z77.098 Contact with and (suspected) exposure to other hazardous, chiefly nonmedicinal, chemicals
CPT/HCPCS: J2270

== ENCOUNTER 2017-11-26 17:44 | Emergency (ER) | payer OTHER ==
[2017-11-26] MEDS: PERCOCET 5MG/325MG TAB PO (22:01)
[2017-11-26 22:22] LABS: BASO % 0.4 % (0.0-1.0); EOS # 0.1 10^3/uL (0.0-0.50); EOS % 2.6 % (0.0-3.0); HEMATOCRIT 41.2 % (36.0-47.0); HEMOGLOBIN 13.7 g/dl (12.0-15.5); IMMATURE GRANULOCYTE % 0.5 % (0-3.0); LYMPH # 2.7 10^3/uL (1.5-4.5); LYMPH % 49.7 % (24.0-44.0); MEAN CORPUSCULAR HGB CONC 33.3 g/dl (32.0-36.5); MEAN CORPUSCULAR VOLUME 90.2 fl (80.0-96.0); MONO # 0.4 10^3/uL (0.0-0.8); MONO % 6.6 % (0.0-5.0); NEUTROPHILS # 2.2 10^3/uL (1.8-7.7); NEUTROPHILS % 40.2 % (36.0-66.0); PLATELET COUNT, AUTOMATED 224 10^3/uL (150-450); RED BLOOD COUNT 4.57 10^6/uL (4.00-5.40); RED CELL DISTRIBUTION WIDTH 12.9 % (11.5-14.5); WHITE BLOOD COUNT 5.5 10^3/uL (4.0-10.0)
[2017-11-26 22:49] LABS: ERYTHROCYTE SEDIMENTATION RATE 23 mm/hr (0-30)
== END 2017-11-27 00:08 | disposition home or self-care (01) ==
LOC: M ED 11-27 00:08
DX: I80.8 Phlebitis and thrombophlebitis of other sites (principal); G89.29 Other chronic pain; M79.602 Pain in left arm; J44.9 Chronic obstructive pulmonary disease, unspecified; I48.91 Unspecified atrial fibrillation; E78.5 Hyperlipidemia, unspecified; Z87.19 Personal history of other diseases of the digestive system; Z87.728 Personal history of other specified (corrected) congenital malformations of nervous system and sense organs; Z79.01 Long term (current) use of anticoagulants; Z88.1 Allergy status to other antibiotic agents; Z88.2 Allergy status to sulfonamides; Z88.8 Allergy status to other drugs, medicaments and biological substances; Z79.899 Other long term (current) drug therapy; Z91.013 Allergy to seafood
CPT/HCPCS: 93971

== ENCOUNTER 2017-12-01 20:00 | Emergency (ER) | payer OTHER ==
[2017-12-01] MEDS: NORCO 5/325MG TABLET (BULK FOR ED) PO (21:46)
== END 2017-12-01 21:58 | disposition home or self-care (01) ==
LOC: M ED 20:00
DX: R06.00 Dyspnea, unspecified (principal); M79.604 Pain in right leg; J44.9 Chronic obstructive pulmonary disease, unspecified; I48.91 Unspecified atrial fibrillation; R56.9 Unspecified convulsions; Z79.899 Other long term (current) drug therapy; Z79.01 Long term (current) use of anticoagulants; Z88.1 Allergy status to other antibiotic agents; Z88.2 Allergy status to sulfonamides; Z88.8 Allergy status to other drugs, medicaments and biological substances; Z91.013 Allergy to seafood; Z86.718 Personal history of other venous thrombosis and embolism; Z87.19 Personal history of other diseases of the digestive system; Z87.442 Personal history of urinary calculi; Z87.728 Personal history of other specified (corrected) congenital malformations of nervous system and sense organs
CPT/HCPCS: 71046

== ENCOUNTER 2018-01-08 16:35 | Emergency (ER) | payer OTHER | END 2018-01-08 18:23 | disposition left against medical advice (07) | LOC: M ED 16:35 | DX: M79.602 Pain in left arm (principal); Z53.21 Procedure and treatment not carried out due to patient leaving prior to being seen by health care provider ==

== ENCOUNTER 2018-01-09 02:54 | Emergency (ER) | payer OTHER ==
[2018-01-09] MEDS: traMADol 50 MG TAB PO (06:09)
[2018-01-09] MEDS: predniSONE 20 MG TAB PO (06:09)
== END 2018-01-09 06:18 | disposition home or self-care (01) ==
LOC: M ED 02:54
DX: M25.512 Pain in left shoulder (principal); F31.9 Bipolar disorder, unspecified; Z86.718 Personal history of other venous thrombosis and embolism; Z79.01 Long term (current) use of anticoagulants; Z88.1 Allergy status to other antibiotic agents; Z88.8 Allergy status to other drugs, medicaments and biological substances; Z88.2 Allergy status to sulfonamides; Z91.013 Allergy to seafood
CPT/HCPCS: 73030

== ENCOUNTER 2018-01-12 18:59 | Emergency (ER) | payer OTHER ==
[2018-01-12] MEDS: NORCO, ANEXSIA 5/325MG TABLET (HYDROcodone/ACETAMINOPHEN) PO (19:24)
== END 2018-01-12 20:22 | disposition home or self-care (01) ==
LOC: M ED 18:59
DX: S43.402A Unspecified sprain of left shoulder joint, initial encounter (principal); S16.1XXA Strain of muscle, fascia and tendon at neck level, initial encounter; W22.8XXA Striking against or struck by other objects, initial encounter; Y92.008 Other place in unspecified non-institutional (private) residence as the place of occurrence of the external cause; I10 Essential (primary) hypertension; J44.9 Chronic obstructive pulmonary disease, unspecified; E78.00 Pure hypercholesterolemia, unspecified; I48.91 Unspecified atrial fibrillation; K21.9 Gastro-esophageal reflux disease without esophagitis; F41.9 Anxiety disorder, unspecified; F33.9 Major depressive disorder, recurrent, unspecified; Z88.0 Allergy status to penicillin; Z88.1 Allergy status to other antibiotic agents; Z88.2 Allergy status to sulfonamides; Z88.8 Allergy status to other drugs, medicaments and biological substances; Z91.013 Allergy to seafood; Z79.899 Other long term (current) drug therapy; Z79.01 Long term (current) use of anticoagulants
CPT/HCPCS: 73060

== ENCOUNTER 2018-02-12 13:50 | Emergency (ER) | payer OTHER ==
[2018-02-12] MEDS: PROMETHAZINE INJ 25 MG/ML VIAL (J2550) IV (14:30)
[2018-02-12] MEDS: NS 1,000 ML IV (14:30)
[2018-02-12 15:06] LABS: BASO % 0.3 % (0.0-1.0); EOS % 0.4 % (0.0-3.0); HEMATOCRIT 40.9 % (36.0-47.0); HEMOGLOBIN 13.8 g/dl (12.0-15.5); IMMATURE GRANULOCYTE % 0.7 % (0-3.0); LYMPH # 1.2 10^3/uL (1.5-4.5); LYMPH % 17.4 % (24.0-44.0); MEAN CORPUSCULAR HEMOGLOBIN 29.7 pg (27.0-33.0); MEAN CORPUSCULAR HGB CONC 33.7 g/dl (32.0-36.5); MEAN CORPUSCULAR VOLUME 88.1 fl (80.0-96.0); MONO # 0.3 10^3/uL (0.0-0.8); MONO % 3.9 % (0.0-5.0); NEUTROPHILS # 5.4 10^3/uL (1.8-7.7); NEUTROPHILS % 77.3 % (36.0-66.0); PLATELET COUNT, AUTOMATED 210 10^3/uL (150-450); RED BLOOD COUNT 4.64 10^6/uL (4.00-5.40); RED CELL DISTRIBUTION WIDTH 12.6 % (11.5-14.5)
[2018-02-12 15:18] LABS: INR 1.04; PROTHROMBIN TIME 13.7 SECONDS (12.1-14.4)
[2018-02-12 15:19] LABS: PARTIAL THROMBOPLASTIN TIME 25.1 SECONDS (25.4-37.6)
[2018-02-12 15:41] LABS: ALBUMIN 3.1 GM/DL (3.2-5.2); ALBUMIN/GLOBULIN RATIO 0.89 (1.00-1.93); ALKALINE PHOSPHATASE 122 U/L (45-117); ALT/SGPT 21 U/L (12-78); ANION GAP 8 MEQ/L (8-16); AST/SGOT 20 U/L (7-37); BILIRUBIN,DIRECT < 0.1 MG/DL (0.0-0.2); BILIRUBIN,TOTAL 0.3 MG/DL (0.2-1.0); BLOOD UREA NITROGEN 12 MG/DL (7-18); CALCIUM LEVEL 8.3 MG/DL (8.5-10.1); CARBON DIOXIDE LEVEL 26 MEQ/L (21-32); CHLORIDE LEVEL 109 MEQ/L (98-107); CK-MB VALUE MASS < 1.0 NG/ML (<3.6); CPK CREATINE PHOSPHOKINASE 87 U/L (26-192); GLOMERULAR FILTRATION RATE > 60.0 (>51); GLUCOSE, FASTING 90 MG/DL (70-100); LIPASE 183 U/L (73-393); MB/CK RELATIVE INDEX 1.15 (< OR =4); NT-PRO BNP 180 PG/ML (<125); POTASSIUM SERUM 3.8 MEQ/L (3.5-5.1); SODIUM LEVEL 143 MEQ/L (136-145); TOTAL PROTEIN 6.6 GM/DL (6.4-8.2); TROPONIN I < 0.02 NG/ML (< 0.10)
[2018-02-12] MEDS: MORPHINE 2 MG/ML 1ML SYRINGE (J2270) IV (16:15)
[2018-02-12] MEDS: ONDANSETRON 4MG/2ML VIAL (J2405) IV (16:30)
[2018-02-12] MEDS: KETOROLAC 30 MG/ML VIAL (J1885) IV (17:45)
[2018-02-12] MEDS: PERCOCET 5MG/325MG TAB PO (19:19)
[2018-02-12] MEDS: OXYCODONE/APAP 5MG/325MG(BULK FOR ED) 1 TABLET PO (19:19)
== END 2018-02-12 19:41 | disposition home or self-care (01) ==
LOC: M ED 13:50
DX: R07.89 Other chest pain (principal); R51 Headache; F32.9 Major depressive disorder, single episode, unspecified; F41.9 Anxiety disorder, unspecified; I48.91 Unspecified atrial fibrillation; I10 Essential (primary) hypertension; E78.5 Hyperlipidemia, unspecified; F31.9 Bipolar disorder, unspecified; J44.9 Chronic obstructive pulmonary disease, unspecified; M79.7 Fibromyalgia; G43.909 Migraine, unspecified, not intractable, without status migrainosus; G47.30 Sleep apnea, unspecified; Z86.718 Personal history of other venous thrombosis and embolism; F44.5 Conversion disorder with seizures or convulsions; G51.0 Bell's palsy; H40.9 Unspecified glaucoma; Z79.01 Long term (current) use of anticoagulants; Z79.899 Other long term (current) drug therapy; Z88.1 Allergy status to other antibiotic agents; Z88.8 Allergy status to other drugs, medicaments and biological substances; Z91.013 Allergy to seafood
CPT/HCPCS: J2405

== ENCOUNTER 2018-02-22 02:30 | Emergency (ER) | payer OTHER ==
[~2018-02-22] VITALS: Ht 157.5 cm; Wt 88.6 kg
[~2018-02-22 02:30] MED LIST changes: +ABIL10TA9 PO; +ABIL1TAB13 PO; +ADV250INH INH; +ALBU17IN2 INH; +AMIT10TA PO; +ARCA75CA IN; +ARCA75CA INH; +ARIP2TAB PO; +ARIP5TA PO; +ARNU1INH3 INH; +ARNU1INH3 PO; +ATOR40TA75 PO; +AUGM875T28 PO; +BACL10TA2; +BREAMIS6 XX; -BUPIVACAINE HCL 0.25% 30 ML VIAL As Ordered; +CARA1TAB6 PO; +CLEO300C2 PO; +DOXY100T PO; +ELIQ5TAB PO; +FLON0.05; +GABA-1171 PO; +GABI4TAB OR; +GUAI100S27 PO; +HYDR-3363; +HYDR-3363 PO; +IBUP400T OR; +IBUP600T OR; +KEFL500C17 PO; +KLON0.5T OR; -LIDOCAINE 1% SDV INJ 30 ML VIAL As Ordered; +LISI10TA4 PO; +MIRA3350 PO; +NAPR-885 PO; +NITR0.4S14 SL; +NORC1TAB4 PO; +NORCOTAB PO; +OMEP10CASR PO; +OMEP20CA3 PO; +ONDA4TAB5 PO; +ONDA4TAB6 PO; +OXYB5TAB4 OR; +OXYC-141 PO; +OXYC15TA76 PO; +PANT40TA3 PO; +PARO20TA3 PO; +PAXI30TA11 PO; +PENNSAID; +PERC5TAB12 PO; +PERCOCET PO; +PRED20TA PO; +PROT1TAB2 PO; +ROBA500T PO; +ROBA750T OR; +SENO8.6T10 PO; +SKEL800T5 OR; +SOMA350T; +SOMA350T OR; +SUCR1TA PO; +SYMB80INH INH; +TESS100C PO; +TIZA4CAP PO; +TOPI25TA2; +TOPI50TA; +TOPI50TA OR; +TOPI50TA9 PO; +TOPR25TA13 PO; +TRAM50TA2; +TRAZ-160 PO; +TRAZO50TA PO; -TRIAMCINOLONE ACETONIDE SUSP 40 MG/ML VIAL (J3301) As Ordered; +TYLE325T5 PO; +VENTAER INH; +VICO5TAB; +VIST25CA PO; +VIT D 2000 OR; +ZIPSOR; +ZITH500T PO; +ZOFR4TAB14 PO; +claritin
[2018-02-22 03:02] LABS: BASO % 0.5 % (0.0-1.0); EOS # 0.1 10^3/uL (0.0-0.50); EOS % 2.3 % (0.0-3.0); HEMATOCRIT 42.4 % (36.0-47.0); HEMOGLOBIN 13.7 g/dl (12.0-15.5); LYMPH # 2.2 10^3/uL (1.5-4.5); LYMPH % 38.9 % (24.0-44.0); MEAN CORPUSCULAR HEMOGLOBIN 29.8 pg (27.0-33.0); MEAN CORPUSCULAR HGB CONC 32.3 g/dl (32.0-36.5); MEAN CORPUSCULAR VOLUME 92.4 fl (80.0-96.0); MONO # 0.5 10^3/uL (0.0-0.8); NEUTROPHILS # 2.8 10^3/uL (1.8-7.7); NEUTROPHILS % 49.1 % (36.0-66.0); PLATELET COUNT, AUTOMATED 204 10^3/uL (150-450); RED BLOOD COUNT 4.59 10^6/uL (4.00-5.40); WHITE BLOOD COUNT 5.8 10^3/uL (4.0-10.0)
[2018-02-22 03:38] LABS: BLOOD UREA NITROGEN 16 MG/DL (7-18); CALCIUM LEVEL 8.2 MG/DL (8.5-10.1); CARBON DIOXIDE LEVEL 23 MEQ/L (21-32); CHLORIDE LEVEL 111 MEQ/L (98-107); CK-MB VALUE MASS < 1.0 NG/ML (<3.6); CPK CREATINE PHOSPHOKINASE 131 U/L (26-192); CREATININE FOR GFR 1.02 MG/DL (0.55-1.30); GLOMERULAR FILTRATION RATE > 60.0 (>51); GLUCOSE, FASTING 107 MG/DL (70-100); MB/CK RELATIVE INDEX 0.76 (< OR =4); POTASSIUM SERUM 5.3 MEQ/L (3.5-5.1); SODIUM LEVEL 141 MEQ/L (136-145); TROPONIN I < 0.02 NG/ML (< 0.10)
[2018-02-22] MEDS ORDERED: diphenhydrAMINE INJ 50MG/ML VIAL (J1200) IV STA (03:56)
[2018-02-22] MEDS ORDERED: ISOVUE-370 76% 100ML VIAL (Q9967) As Ordered ONE (04:01)
--- NOTE | 2018-02-22 04:54 | REPVR ---
EXAM: CT Angiography Chest With Contrast EXAM DATE/TIME: 02/22/2018 3:56 AM CLINICAL HISTORY: 52 years old, female; Pain; Chest pain; Type not specified; Additional info: Cp TECHNIQUE: Axial computed tomographic angiography images of the chest with intravenous contrast using CT angiography protocol. All CT scans at this facility use at least one of these dose optimization techniques: automated exposure control; mA and/or kV adjustment per patient size (includes targeted exams where dose is matched to clinical indication); or iterative reconstruction. Coronal and sagittal reformatted images were created and reviewed. MIP reconstructed images were created and reviewed. CONTRAST: 75 ml of iso administered intravenously. COMPARISON: CT ANGIO CHEST 08/17/2017 2:02 PM FINDINGS: Pulmonary arteries: The main pulmonary artery measures 25 mm. No pulmonary embolism is identified. Aorta: The ascending thoracic aorta measures 28 mm. Lungs: Normal. No consolidation. No masses. Pleural space: Normal. No pneumothorax. No pleural effusion. Heart: Normal. No cardiomegaly. No pericardial effusion. Gallbladder and bile ducts: Status post cholecystectomy. Lymph nodes: Unremarkable. No enlarged lymph nodes. Bones/joints: Unremarkable. No acute fracture. Soft tissues: Unremarkable. Other findings: Calcified granulomata bilaterally. IMPRESSION: 1. There has been little change from 08/17/2017. No acute interval pulmonary embolism is identified. 2. Old granulomatous disease. 3. Status post cholecystectomy. Electronically signed by: Quintin Gambino On 02/22/2018 04:54:27 AM
[2018-02-22] MEDS ORDERED: KETOROLAC 30 MG/ML VIAL (J1885) IV ONE (06:00)
[2018-02-22 06:02] LABS: CK-MB VALUE MASS < 1.0 NG/ML (<3.6); CPK CREATINE PHOSPHOKINASE 77 U/L (26-192); TROPONIN I < 0.02 NG/ML (< 0.10)
[2018-02-22 06:15] VITALS: BP 116/83
[2018-02-22] MEDS ORDERED: ONDANSETRON 4 MG ORAL DISINTEGRATING TAB (Q0162 PER 1MG) PO ONE (06:15)
--- NOTE | 2018-02-22 13:20 | ECGEPIP ---
Stationary ECG Study [facility] - ED Test Date: 2018-02-22 Pat Name: SMITH VIVEROS Department: Room: - Gender: F Calibrator Barometers: gt : 1965 Requested By: SABRINA DAVENPORT Order Number: [id number] Reading MD: Mouna Smith Measurements Intervals [place] Rate: 78 P: 12 [place]: 151 QRS: 2 QRSD: 87 T: 13 QT: 372 QTc: 425 Interpretive Statements SINUS RHYTHM LOW QRS VOLTAGE IN PRECORDIAL LEADS NSTTW ABNORMALITY PRWP DECREASED RATE 02/22/18 Electronically Signed On 02-22-2018 13:20:11 EST by Mouna Smith
--- NOTE | 2018-02-22 13:20 | ECGEPIP ---
Stationary ECG Study [facility] - ED Test Date: 2018-02-22 Pat Name: SMITH VIVEROS Department: Room: - Gender: F Sailor: af : 1965 Requested By: SABRINA DAVENPORT Order Number: [id number] Reading MD: Mouna Smith Measurements Intervals [place] Rate: 93 P: 12 [place]: 142 QRS: 13 QRSD: 79 T: 32 QT: 328 QTc: 409 Interpretive Statements SINUS RHYTHM WITH OCCASIONAL SUPRAVENTRICULAR PREMATURE COMPLEXES NONSPECIFIC ST & T-WAVE ABNORMALITY INCREASED RATE/ECTOPY 02/12/18 Electronically Signed On 02-22-2018 13:19:47 EST by Mouna Smith
== END 2018-02-22 06:35 | disposition home or self-care (01) ==
LOC: M ED 02:30
DX: R07.89 Other chest pain (principal); I48.91 Unspecified atrial fibrillation; E78.5 Hyperlipidemia, unspecified; F33.9 Major depressive disorder, recurrent, unspecified; M79.7 Fibromyalgia; G89.4 Chronic pain syndrome; G43.909 Migraine, unspecified, not intractable, without status migrainosus; Z79.899 Other long term (current) drug therapy; Z88.1 Allergy status to other antibiotic agents; Z88.2 Allergy status to sulfonamides; Z88.8 Allergy status to other drugs, medicaments and biological substances; Z91.013 Allergy to seafood; F17.210 Nicotine dependence, cigarettes, uncomplicated
CPT/HCPCS: 71275; 80048; 82550; 82553; 85025; 93005; 93041; 94760; 96374; 96375; 99285; J1200; J1885; Q0162; Q9967

== ENCOUNTER 2018-02-24 14:55 | Emergency (ER) | payer OTHER ==
[2018-02-24 15:44] LABS: BASO % 0.4 % (0.0-1.0); EOS # 0.1 10^3/uL (0.0-0.50); EOS % 2.3 % (0.0-3.0); HEMATOCRIT 40.8 % (36.0-47.0); HEMOGLOBIN 13.4 g/dl (12.0-15.5); IMMATURE GRANULOCYTE % 0.6 % (0-3.0); LYMPH % 38.7 % (24.0-44.0); MEAN CORPUSCULAR HEMOGLOBIN 29.6 pg (27.0-33.0); MEAN CORPUSCULAR HGB CONC 32.8 g/dl (32.0-36.5); MEAN CORPUSCULAR VOLUME 90.3 fl (80.0-96.0); MONO # 0.3 10^3/uL (0.0-0.8); MONO % 6.6 % (0.0-5.0); NEUTROPHILS # 2.7 10^3/uL (1.8-7.7); NEUTROPHILS % 51.4 % (36.0-66.0); PLATELET COUNT, AUTOMATED 206 10^3/uL (150-450); RED BLOOD COUNT 4.52 10^6/uL (4.00-5.40); RED CELL DISTRIBUTION WIDTH 12.7 % (11.5-14.5); WHITE BLOOD COUNT 5.2 10^3/uL (4.0-10.0)
[2018-02-24 15:58] LABS: INR 0.97
[2018-02-24 15:59] LABS: PARTIAL THROMBOPLASTIN TIME 23.9 SECONDS (25.4-37.6)
[2018-02-24 16:03] LABS: ALBUMIN 2.8 GM/DL (3.2-5.2); ALKALINE PHOSPHATASE 123 U/L (45-117); ALT/SGPT 27 U/L (12-78); ANION GAP 7 MEQ/L (8-16); AST/SGOT 27 U/L (7-37); BILIRUBIN,DIRECT < 0.1 MG/DL (0.0-0.2); BILIRUBIN,TOTAL 0.2 MG/DL (0.2-1.0); BLOOD UREA NITROGEN 11 MG/DL (7-18); CALCIUM LEVEL 8.2 MG/DL (8.5-10.1); CARBON DIOXIDE LEVEL 26 MEQ/L (21-32); CHLORIDE LEVEL 112 MEQ/L (98-107); CK-MB VALUE MASS < 1.0 NG/ML (<3.6); CPK CREATINE PHOSPHOKINASE 85 U/L (26-192); CREATININE FOR GFR 0.97 MG/DL (0.55-1.30); FREE T4 0.89 NG/DL (0.76-1.46); GLOMERULAR FILTRATION RATE > 60.0 (>51); GLUCOSE, FASTING 94 MG/DL (70-100); LIPASE 191 U/L (73-393); MB/CK RELATIVE INDEX 1.18 (< OR =4); POTASSIUM SERUM 4.1 MEQ/L (3.5-5.1); SODIUM LEVEL 145 MEQ/L (136-145); TOTAL PROTEIN 6.3 GM/DL (6.4-8.2); TROPONIN I < 0.02 NG/ML (< 0.10)
[2018-02-24] MEDS: PERCOCET 5MG/325MG TAB PO ×2 (16:05→16:53)
== END 2018-02-24 16:55 | disposition home or self-care (01) ==
LOC: M ED 14:55
DX: R07.9 Chest pain, unspecified (principal); I10 Essential (primary) hypertension; J44.9 Chronic obstructive pulmonary disease, unspecified; E78.5 Hyperlipidemia, unspecified; I25.10 Atherosclerotic heart disease of native coronary artery without angina pectoris; I48.91 Unspecified atrial fibrillation; Z86.19 Personal history of other infectious and parasitic diseases; Z86.718 Personal history of other venous thrombosis and embolism; G47.30 Sleep apnea, unspecified; Z82.49 Family history of ischemic heart disease and other diseases of the circulatory system; Z79.899 Other long term (current) drug therapy; Z79.01 Long term (current) use of anticoagulants; Z88.1 Allergy status to other antibiotic agents; Z88.2 Allergy status to sulfonamides; Z88.8 Allergy status to other drugs, medicaments and biological substances; Z91.013 Allergy to seafood; Z87.891 Personal history of nicotine dependence
CPT/HCPCS: 71045

== ENCOUNTER 2018-02-25 15:54 | Emergency (ER) | payer OTHER ==
[~2018-02-25] VITALS: Ht 157.5 cm; Wt 90.0 kg
[2018-02-25 16:50] LABS: BASO % 0.4 % (0.0-1.0); EOS # 0.1 10^3/uL (0.0-0.50); EOS % 2.1 % (0.0-3.0); HEMATOCRIT 42.9 % (36.0-47.0); HEMOGLOBIN 13.9 g/dl (12.0-15.5); LYMPH # 2.1 10^3/uL (1.5-4.5); MEAN CORPUSCULAR HEMOGLOBIN 29.8 pg (27.0-33.0); MEAN CORPUSCULAR HGB CONC 32.4 g/dl (32.0-36.5); MEAN CORPUSCULAR VOLUME 92.1 fl (80.0-96.0); MONO # 0.5 10^3/uL (0.0-0.8); MONO % 8.4 % (0.0-5.0); NEUTROPHILS # 2.6 10^3/uL (1.8-7.7); NEUTROPHILS % 48.3 % (36.0-66.0); PLATELET COUNT, AUTOMATED 218 10^3/uL (150-450); RED BLOOD COUNT 4.66 10^6/uL (4.00-5.40); WHITE BLOOD COUNT 5.3 10^3/uL (4.0-10.0)
--- NOTE | 2018-02-25 17:03 | REP ---
Chest two views HISTORY: Chest pain Comparison: 02/24/2018 A calcified granuloma is present in the left lower lobe. The right lung is clear. The heart is upper limits of normal in size. The pulmonary vasculature is normal in appearance. The bony structure is intact. IMPRESSION: No acute disease. Electronically Signed by Reinaldo Torres MD 02/25/2018 04:55 P
[2018-02-25] MEDS: GI COCKTAIL 50ML BTL(HYOSCYAMINE/MAALOX/LIDOCAINE VISCOUS)(1:3:1) PO ONE (17:04)
[2018-02-25] MEDS: ONDANSETRON 4MG/2ML VIAL (J2405) IV ONE (17:04)
[2018-02-25 17:33] LABS: BLOOD UREA NITROGEN 13 MG/DL (7-18); CALCIUM LEVEL 8.7 MG/DL (8.5-10.1); CARBON DIOXIDE LEVEL 27 MEQ/L (21-32); CHLORIDE LEVEL 108 MEQ/L (98-107); CK-MB VALUE MASS < 1.0 NG/ML (<3.6); CPK CREATINE PHOSPHOKINASE 74 U/L (26-192); CREATININE FOR GFR 1.04 MG/DL (0.55-1.30); GLOMERULAR FILTRATION RATE 59.2 (>51); GLUCOSE, FASTING 83 MG/DL (70-100); MB/CK RELATIVE INDEX 1.35 (< OR =4); NT-PRO BNP 161 PG/ML (<125); SODIUM LEVEL 141 MEQ/L (136-145); TROPONIN I < 0.02 NG/ML (< 0.10)
[2018-02-25] MEDS: PANTOPRAZOLE 40MG INJ (PROTONIX) (C9113) IV ONE (18:23)
[2018-02-25] MEDS: SUCRALFATE SUSP 1GM/10ML UD PO ONE (18:23)
--- NOTE | 2018-02-25 19:15 | ECGEPIP ---
Stationary ECG Study [facility] - ED Test Date: 2018-02-25 Pat Name: SMITH VIVEROS Department: Room: - Gender: F Bobbin Fixer: brad : 1965 Requested By: CHARLEEN Daniel Order Number: [id number] Reading MD: Barrei Mobley Measurements Intervals [place] Rate: 77 P: 24 [place]: 155 QRS: 6 QRSD: 90 T: 11 QT: 367 QTc: 417 Interpretive Statements SINUS RHYTHM LOW QRS VOLTAGE IN PRECORDIAL LEADS POSSIBLE PRIOR INFERIOR INFARCT SIMILAR TO 02/24/18 Electronically Signed On 02-25-2018 19:15:16 EST by Barrie Mobley
[2018-02-25 19:30] VITALS: BP 104/55
[2018-02-25] MEDS ORDERED: TOPI50TA9 PO (19:30)
[2018-02-25] MEDS ORDERED: ELIQ5TAB PO (19:30)
[2018-02-25] MEDS ORDERED: SUCR1TAB56 PO (19:30)
[2018-02-25] MEDS ORDERED: GABA-1171 PO (19:30)
[2018-02-25] MEDS ORDERED: LISI10TA4 PO (19:30)
[2018-02-25] MEDS ORDERED: PROT1TAB2 PO (19:30)
[2018-02-25] MEDS ORDERED: PARO20TA3 PO (19:30)
== END 2018-02-25 19:52 | disposition home or self-care (01) ==
LOC: M ED 15:54
DX: K21.9 Gastro-esophageal reflux disease without esophagitis (principal); I10 Essential (primary) hypertension; E78.5 Hyperlipidemia, unspecified; I48.91 Unspecified atrial fibrillation; G47.33 Obstructive sleep apnea (adult) (pediatric); M79.7 Fibromyalgia; G43.909 Migraine, unspecified, not intractable, without status migrainosus; Z79.899 Other long term (current) drug therapy; Z79.01 Long term (current) use of anticoagulants; Z88.1 Allergy status to other antibiotic agents; Z88.2 Allergy status to sulfonamides; Z88.8 Allergy status to other drugs, medicaments and biological substances; Z91.013 Allergy to seafood
CPT/HCPCS: 36415; 71046; 80048; 82550; 82553; 83880; 85025; 93005; 93041; 94760; 96374; 96375; 99285; C9113; J2405

== ENCOUNTER 2018-02-27 19:05 | Emergency (ER) | payer OTHER ==
[2018-02-27 20:42] LABS: INR 0.93; PROTHROMBIN TIME 12.6 SECONDS (12.1-14.4)
[2018-02-27 20:52] LABS: BASO % 0.3 % (0.0-1.0); EOS # 0.1 10^3/uL (0.0-0.50); EOS % 1.7 % (0.0-3.0); HEMATOCRIT 39.5 % (36.0-47.0); HEMOGLOBIN 13.1 g/dl (12.0-15.5); IMMATURE GRANULOCYTE % 0.5 % (0-3.0); LYMPH % 31.8 % (24.0-44.0); MEAN CORPUSCULAR HEMOGLOBIN 29.7 pg (27.0-33.0); MEAN CORPUSCULAR HGB CONC 33.2 g/dl (32.0-36.5); MEAN CORPUSCULAR VOLUME 89.6 fl (80.0-96.0); MONO # 0.5 10^3/uL (0.0-0.8); MONO % 7.4 % (0.0-5.0); NEUTROPHILS # 3.7 10^3/uL (1.8-7.7); NEUTROPHILS % 58.3 % (36.0-66.0); PLATELET COUNT, AUTOMATED 212 10^3/uL (150-450); RED BLOOD COUNT 4.41 10^6/uL (4.00-5.40); RED CELL DISTRIBUTION WIDTH 12.7 % (11.5-14.5); WHITE BLOOD COUNT 6.4 10^3/uL (4.0-10.0)
[2018-02-27 20:53] LABS: ANION GAP 5 MEQ/L (8-16); BLOOD UREA NITROGEN 13 MG/DL (7-18); CALCIUM LEVEL 8.5 MG/DL (8.5-10.1); CARBON DIOXIDE LEVEL 29 MEQ/L (21-32); CHLORIDE LEVEL 109 MEQ/L (98-107); CK-MB VALUE MASS < 1.0 NG/ML (<3.6); CPK CREATINE PHOSPHOKINASE 88 U/L (26-192); CREATININE FOR GFR 0.86 MG/DL (0.55-1.30); GLOMERULAR FILTRATION RATE > 60.0 (>51); GLUCOSE, FASTING 90 MG/DL (70-100); MB/CK RELATIVE INDEX 1.14 (< OR =4); POTASSIUM SERUM 4.1 MEQ/L (3.5-5.1); SODIUM LEVEL 143 MEQ/L (136-145); TROPONIN I < 0.02 NG/ML (< 0.10)
[2018-02-27] MEDS ORDERED: ONDANSETRON 4 MG TAB (S0181) As Ordered (21:05)
[2018-02-27] MEDS: ONDANSETRON 4 MG TAB (S0181) PO (21:09)
[2018-02-27 21:17] LABS: ABG BASE EXCESS 0.8 (-2.0-2.0); ABG HCO3 26.7 MEQ/L (22.0-26.0); ABG O2 SATURATION 61.7 % (95.0-99.0); ABG PARTIAL PRESSURE CO2 47.2 mmHg (35.0-45.0); ABG STANDARD HCO3 24.4 MEQ/L (22.0-26.0); ABG TOTAL CO2 28.1 MEQ/L (22.0-29.0)
[2018-02-27 21:21] LABS: ABG PARTIAL PRESSURE O2 31.5 mmHg (75.0-100.0)
[2018-02-27] MEDS: KETOROLAC 60 MG/2 ML VIAL (J1885) IM (21:46)
== END 2018-02-27 22:17 | disposition home or self-care (01) ==
LOC: M ED 19:05
DX: R07.1 Chest pain on breathing (principal); I10 Essential (primary) hypertension; I48.91 Unspecified atrial fibrillation; J44.9 Chronic obstructive pulmonary disease, unspecified; K21.9 Gastro-esophageal reflux disease without esophagitis; G43.909 Migraine, unspecified, not intractable, without status migrainosus; M54.9 Dorsalgia, unspecified; G89.4 Chronic pain syndrome; F32.9 Major depressive disorder, single episode, unspecified; Z87.891 Personal history of nicotine dependence; Z88.2 Allergy status to sulfonamides; Z88.1 Allergy status to other antibiotic agents; Z91.013 Allergy to seafood; Z79.899 Other long term (current) drug therapy; Z79.01 Long term (current) use of anticoagulants
CPT/HCPCS: J1885

== ENCOUNTER 2018-03-02 21:21 | Emergency (ER) | payer OTHER ==
[~2018-03-02] VITALS: Ht 157.5 cm; Wt 90.0 kg
[~2018-03-02 21:21] MED LIST changes: +SUCR1TAB56 PO
--- NOTE | 2018-03-02 22:36 | REPVR ---
EXAM: CT Head Without Contrast EXAM DATE/TIME: 03/02/2018 9:54 PM CLINICAL HISTORY: 52 years old, female; Injury or trauma; Fall; Initial encounter; Blunt trauma (contusions or hematomas); Consciousness not specified TECHNIQUE: Axial computed tomography images of the head/brain without contrast. All CT scans at this facility use at least one of these dose optimization techniques: automated exposure control; mA and/or kV adjustment per patient size (includes targeted exams where dose is matched to clinical indication); or iterative reconstruction. COMPARISON: CT Head without contrast 06/02/2017 10:58 PM FINDINGS: Brain: Normal. No hemorrhage. No significant white matter disease. No edema. Ventricles: Normal. No ventriculomegaly. Bones/joints: Normal. No acute fracture. Sinuses: Normal as visualized. No acute sinusitis. Mastoid air cells: Normal as visualized. No mastoid effusion. Soft tissues: Normal. IMPRESSION: No acute intracranial abnormality. Electronically signed by: Giovanni Khanna On 03/02/2018 22:36:18 PM
--- NOTE | 2018-03-02 22:41 | REPVR ---
EXAM: CT Cervical Spine Without Contrast EXAM DATE/TIME: 03/02/2018 9:54 PM CLINICAL HISTORY: 52 years old, female; Injury or trauma; Fall; Initial encounter; Blunt trauma TECHNIQUE: Axial computed tomography images of the cervical spine without intravenous contrast. All CT scans at this facility use at least one of these dose optimization techniques: automated exposure control; mA and/or kV adjustment per patient size (includes targeted exams where dose is matched to clinical indication); or iterative reconstruction. Coronal and sagittal reformatted images were created and reviewed. COMPARISON: CT Spine,cervical w/o contrast 06/03/2017 12:19 AM FINDINGS: Vertebrae: No acute fracture. Normal alignment. Discs/Spinal canal/Neural foramina: No spinal stenosis. No neural foraminal narrowing. Soft tissues: Unremarkable. Lungs: Lung apices are normal. IMPRESSION: No acute findings. Electronically signed by: Giovanni Khanna On 03/02/2018 22:41:12 PM
--- NOTE | 2018-03-02 22:43 | REPVR ---
EXAM: CT Thoracic Spine Without Contrast EXAM DATE/TIME: 03/02/2018 9:54 PM CLINICAL HISTORY: 52 years old, female; Injury or trauma; Fall; Initial encounter; Blunt trauma (contusions or hematomas) TECHNIQUE: Axial computed tomography images of the thoracic spine without intravenous contrast. All CT scans at this facility use at least one of these dose optimization techniques: automated exposure control; mA and/or kV adjustment per patient size (includes targeted exams where dose is matched to clinical indication); or iterative reconstruction. Coronal and sagittal reformatted images were created and reviewed. COMPARISON: CT Spine,thoracic w/o contrast 05/12/2017 2:47 PM FINDINGS: Vertebrae: Mild degenerative spondylosis. Discs/Spinal canal/Neural foramina: No spinal stenosis. No neural foraminal narrowing. Soft tissues: Unremarkable. IMPRESSION: No acute findings. Mild degenerative spondylosis. Electronically signed by: Giovanni Khanna On 03/02/2018 22:43:50 PM
[2018-03-02] MEDS ORDERED: KETOROLAC 60 MG/2 ML VIAL (J1885) IM ONE (22:45)
--- NOTE | 2018-03-02 22:46 | REPVR ---
EXAM: CT Lumbar Spine Without Contrast EXAM DATE/TIME: 03/02/2018 9:54 PM CLINICAL HISTORY: 52 years old, female; Injury or trauma; Fall; Initial encounter; Blunt trauma (contusions or hematomas) TECHNIQUE: Axial computed tomography images of the lumbar spine without intravenous contrast. All CT scans at this facility use at least one of these dose optimization techniques: automated exposure control; mA and/or kV adjustment per patient size (includes targeted exams where dose is matched to clinical indication); or iterative reconstruction. Coronal and sagittal reformatted images were created and reviewed. COMPARISON: CT Spine, lumbar w/o contrast 05/12/2017 2:47 PM FINDINGS: Vertebrae: Minimal retrolisthesis of L5 on S1. Discs/Spinal canal/Neural foramina: There is a mild central spinal stenosis at L4-5 secondary to diffuse annular bulging and thickened ligamentum flavum. Bulging annulus L5-S1 without neural compromise. Soft tissues: Unremarkable. Other findings: 5 non-rib bearing mobile lumbar segments. IMPRESSION: No acute findings. Mild central spinal stenosis at L4-5. Bulging annulus at L5-S1 without neural compromise. Electronically signed by: Giovanni Khanna On 03/02/2018 22:46:47 PM
[2018-03-02] MEDS ORDERED: KETOROLAC 30 MG/ML VIAL (J1885) As Ordered ONE (23:07)
[2018-03-02 23:42] VITALS: BP 132/78
--- NOTE | 2018-03-03 08:20 | REP ---
Clinical: Trauma with left hip pain Technique: Frontal view of the pelvis with neutral and frog lateral views of the left hip. Findings: Osseous structures and joint spaces are intact and normal. Hip joints appear symmetric on frontal pelvic radiograph. No acute fracture dislocation. No evidence for healed injury. No significant degenerative or congenital abnormalities are appreciated. Surrounding soft tissues are unremarkable. Impression: Normal pelvis and left hip series. Electronically Signed by Fletcher Serna MD 03/03/2018 08:12 A
--- NOTE | 2018-03-03 08:21 | REP ---
Clinical: Trauma. Technique: Neutral and frog lateral views of the left femur. Findings: Age-related degenerative changes at the hip noted. No acute fracture or dislocation. No subcutaneous emphysema or radiodense foreign body. Impression: No acute fracture or dislocation. Electronically Signed by Fletcher Serna MD 03/03/2018 08:13 A
--- NOTE | 2018-03-03 08:25 | REP ---
Clinical: Trauma. Technique: AP and lateral views of the left tibia / fibula. Findings: No acute fracture dislocation. Skeletal structures, joint spaces, and surrounding soft tissues appear normal. No subcutaneous emphysema or radiodense foreign body. Impression: No acute fracture or dislocation. Electronically Signed by Fletcher Serna MD 03/03/2018 08:16 A
== END 2018-03-02 23:45 | disposition home or self-care (01) ==
LOC: M ED 21:21
DX: S09.90XA Unspecified injury of head, initial encounter (principal); S80.12XA Contusion of left lower leg, initial encounter; M54.9 Dorsalgia, unspecified; W00.1XXA Fall from stairs and steps due to ice and snow, initial encounter; Y92.099 Unspecified place in other non-institutional residence as the place of occurrence of the external cause; Y93.9 Activity, unspecified; Y99.9 Unspecified external cause status; I48.91 Unspecified atrial fibrillation; M79.7 Fibromyalgia; J44.9 Chronic obstructive pulmonary disease, unspecified; I10 Essential (primary) hypertension; G43.909 Migraine, unspecified, not intractable, without status migrainosus; E66.9 Obesity, unspecified; E55.9 Vitamin D deficiency, unspecified; G89.29 Other chronic pain; Z86.718 Personal history of other venous thrombosis and embolism; F41.9 Anxiety disorder, unspecified; F32.9 Major depressive disorder, single episode, unspecified; F31.9 Bipolar disorder, unspecified; M48.061 Spinal stenosis, lumbar region without neurogenic claudication; M51.27 Other intervertebral disc displacement, lumbosacral region; M47.814 Spondylosis without myelopathy or radiculopathy, thoracic region; Z79.01 Long term (current) use of anticoagulants; Z79.899 Other long term (current) drug therapy; Z88.1 Allergy status to other antibiotic agents; Z88.0 Allergy status to penicillin; Z88.8 Allergy status to other drugs, medicaments and biological substances; Z91.013 Allergy to seafood
CPT/HCPCS: 70450; 72125; 72128; 72131; 73502; 73552; 73590; 96372; 99283; J1885

== ENCOUNTER 2018-03-04 11:50 | Emergency (ER) | payer OTHER ==
[~2018-03-04] VITALS: Ht 157.5 cm; Wt 90.0 kg
[2018-03-04 11:51] VITALS: BP 116/77
[2018-03-04] MEDS ORDERED: ACE65ERTAB PO (12:12)
[2018-03-04] MEDS ORDERED: ZOFR4TAB14 PO (12:12)
[2018-03-04] MEDS ORDERED: BACT800T5 PO (12:12)
[2018-03-04] MEDS: ONDANSETRON 4 MG ORAL DISINTEGRATING TAB (Q0162 PER 1MG) PO ONE (12:16)
[2018-03-04] MEDS: BACTRIM 160MG/800MG DS TAB PO ONE (12:17)
[2018-03-04] MEDS: ACETAMINOPHEN 325 MG TAB PO ONE (12:17)
[2018-03-05] MEDS ORDERED: DOXY100C37 PO (21:03)
== END 2018-03-04 12:23 | disposition home or self-care (01) ==
LOC: M ED 11:50
DX: L02.412 Cutaneous abscess of left axilla (principal); K21.9 Gastro-esophageal reflux disease without esophagitis; B95.62 Methicillin resistant Staphylococcus aureus infection as the cause of diseases classified elsewhere
CPT/HCPCS: 99282; Q0162

== ENCOUNTER 2018-03-05 19:02 | Emergency (ER) | payer OTHER ==
[~2018-03-05] VITALS: Ht 157.5 cm; Wt 90.0 kg
[~2018-03-05 19:02] MED LIST changes: +ACE65ERTAB PO; +BACT800T5 PO
[2018-03-05] MEDS ORDERED: LIDOCAINE W/EPINEPHRINE 1% 20ML VIAL SC ONE (20:15)
[2018-03-05] MEDS ORDERED: ONDANSETRON 4 MG ORAL DISINTEGRATING TAB (Q0162 PER 1MG) PO ONE (21:00)
[2018-03-05] MEDS ORDERED: DOXYCYCLINE HYCLATE 100 MG TAB PO ONE (21:00)
[2018-03-05] MEDS ORDERED: DOXY100C37 PO (21:03)
[2018-03-05 21:12] VITALS: BP 140/75
== END 2018-03-05 21:19 | disposition home or self-care (01) ==
LOC: M ED 19:02
DX: L03.112 Cellulitis of left axilla (principal); L73.9 Follicular disorder, unspecified; R11.10 Vomiting, unspecified; Z88.1 Allergy status to other antibiotic agents; Z88.8 Allergy status to other drugs, medicaments and biological substances; Z88.2 Allergy status to sulfonamides; Z91.013 Allergy to seafood; Z79.899 Other long term (current) drug therapy; Z79.01 Long term (current) use of anticoagulants; Z79.2 Long term (current) use of antibiotics
CPT/HCPCS: 10160; 99283; Q0162

== ENCOUNTER 2018-03-09 18:22 | Emergency (ER) | payer OTHER ==
[~2018-03-09] VITALS: Ht 157.5 cm; Wt 90.0 kg
[2018-03-09 18:22] VITALS: BP 132/83
[~2018-03-09 18:22] MED LIST changes: +DOXY100C37 PO
[2018-03-09] MEDS ORDERED: KETO2CR TOP (19:44)
[2018-03-09] MEDS ORDERED: ZOFR4TAB14 PO (19:44)
== END 2018-03-09 19:54 | disposition home or self-care (01) ==
LOC: M ED 18:22
DX: L02.412 Cutaneous abscess of left axilla (principal); B35.4 Tinea corporis; G43.909 Migraine, unspecified, not intractable, without status migrainosus; R56.9 Unspecified convulsions; I48.91 Unspecified atrial fibrillation; I10 Essential (primary) hypertension; J44.9 Chronic obstructive pulmonary disease, unspecified; M54.5 Low back pain; K52.9 Noninfective gastroenteritis and colitis, unspecified; Z87.891 Personal history of nicotine dependence; Z79.01 Long term (current) use of anticoagulants; Z79.899 Other long term (current) drug therapy; Z88.8 Allergy status to other drugs, medicaments and biological substances; Z88.1 Allergy status to other antibiotic agents; Z91.013 Allergy to seafood

== ENCOUNTER → 2018-03-15 | Outpatient (CLI) | payer OTHER ==
[~2018-03-15] MED LIST changes: +AZIT-12 PO; +KETO2CR TOP; +NITR0.4S14
--- NOTE | 2018-03-31 23:51 | ECWPNPC ---
PATIENT NAME: SMITH VIVEROS : 1965 GENDER: FEMALE VISIT DATE: 03/15/2018 DISCHARGE DATE: 03/15/18 1626 VISIT LOCKED DATE TIME: PHYSICIAN: ARELIS MILLER MD RESOURCE: ARELIS MILLER MD REASON FOR APPOINTMENT 1. F/U POST RF 08/15/17 HISTORY OF PRESENT ILLNESS HISTORY OF PRESENT ILLNESS: PAIN THE PATIENT DESCRIBES THE PAIN... 52 YEAR OLD FEMALE PATIENT WITH A HISTORY OF CHRONIC LOW BACK PAIN. THE PATIENT DESCRIBES THE PAIN ACHING, BURNING, STABBING, SHOOTING, AND LASTING ALL DAY WITH A PAIN SCORE OF 7-10/10 DEPENDING ON PHYSICAL ACTIVITY. THE PATIENT SAYS HER PAIN IS MAINLY LOCATED ON HER LEFT SIDE OF HER LOW BACK. THE PATIENT HAD A RADIOFREQUENCY ON 08/15/2017 AND REPORTS HAVING GOOD PAIN RELIEF FOR ABOUT 6 MONTHS AND THE PAIN STARTED TO COME BACK. THE PATIENT SAYS THAT SHE HAS BEEN EXPERIENCING SOME LOSS OF HER URINARY CONTROL RECENTLY. PATIENT DENIES UNEXPLAINABLE WEIGHT LOSS, FEVER, CHILLS, NEW CHANGES ON HER BOWEL CONTROL. FALL RISK SCREENING: SCREENING :FALL WITH INJURY IN THE PAST YEAR CURRENT MEDICATIONS TAKING NITROGLYCERIN 0.4 MG TABLET SUBLINGUAL DIRECTED SUBLINGUAL EVERY 5 MIN: MDD 3 TABLETS, NOTES: 1 WEEK AGO TAKING PAROXETINE HCL 30 MG TABLET 1 TABLET IN THE MORNING ORALLY ONCE A DAY, NOTES: 08/15 799 TAKING TRAZODONE HCL 50 MG TABLET 1 TABLET AT BEDTIME NEEDED ORALLY ONCE A DAY TAKING ABILIFY 10 MG TABLET 1 TABLET ORALLY ONCE A DAY TAKING GABAPENTIN 100 MG CAPSULE 1 CAPSULE ORALLY THREE TIMES DAILY NEEDED TAKING SUCRALFATE 1 GM TABLET 1 TABLET ORALLY TWICE A DAY TAKING TOPIRAMATE 50 MG TABLET 1 TABLET ORALLY TWICE A DAY TAKING ELIQUIS 5 MG TABLET 1 TAB(S) ORALLY TWICE DAILY, NOTES: 08/10 1799 TAKING PROTONIX 40 MG TABLET DELAYED RELEASE 1 TABLET ORALLY BID, NOTES: 08/15 1999 TAKING LISINOPRIL 10 MG TABLET 1 TAB ORALLY DAILY, NOTES: 08/15 1999 NOT-TAKING ATORVASTATIN CALCIUM 40 MG TABLET 1 TABLET ORALLY ONCE A DAY, NOTES: 08/15 799 NOT-TAKING PREDNISONE 20 MG TABLET 1 TABLET ORALLY ONCE A DAY NOT-TAKING HYDROXYZINE HCL 25 MG TABLET 1 TABLET NEEDED ORALLY ONCE DAILY NEEDED, NOTES: 1 WEEK AGO NOT-TAKING DOXYCYCLINE MONOHYDRATE 100 MG CAPSULE 1 CAPSULE ORALLY BID NOT-TAKING CARAFATE 1 GM TABLET 1 TABLET AT BEDTIME ON AN EMPTY STOMACH BEFORE MEALS ORALLY BEFORE BEDTIME, NOTES: 08/15 1999 NOT-TAKING BLOOD PRESSURE CUFF - MISCELLANEOUS DIRECTED _ DAILY MEDICATION LIST REVIEWED AND RECONCILED WITH THE PATIENT PAST MEDICAL HISTORY FIBROMYALGIA DX 4 YEARS AGO, BEING FOLLOWED AT PAIN CLINIC MIGRAINE HEADACHE STRESS INCONTINENCE DEPRESSION HYPERLIPIDEMIA VITAMIN D DEFICIENCY AFIB GERD INTERMITTENT A FIB STRESS INCONTINENCE, FEMALE CHRONIC PAIN SYNDROME UNSPECIFIED VITAMIN D DEFICIENCY MIGRAINE, UNSPECIFIED WITHOUT MENTION OF INTRACTABLE MIGRAINE WITHOUT MENTION OF STATUS MIGRAINOSUS ALLERGIES ZIPSOR: ALLERGY FLEXERIL: AGGITATION: ALLERGY LYRICA: ANAPHYLAXIS: ALLERGY DICLOFENAC POTASSIUM: AGGITATION (ZIPSOR): ALLERGY BACTRIM: NAUSEA/VOMITING: ALLERGY SHELL FISH: SWELLS, HIVES: ALLERGY CYMBALTA: NAUSEA/VOMITING: SIDE EFFECTS AMITRIPTYLINE: AGGITATION: SIDE EFFECTS GABAPENTIN: HALLUCINATIONS: SIDE EFFECTS TIZANIDINE HCL: HIVES: ALLERGY KETOROLAC TROMETHAMINE: STOMACH PAIN: ALLERGY SURGICAL HISTORY TUBAL LIGATION 1988 DISTAL 4TH FINGER REPAIR SECONDARY TO TRAUMATIC INJURY BENIGN TUMOR REMOVAL RIGHT LEG DENTAL SURGERIES CHOLECYSTECTOMY 05/2014 HYSTERECTOMY STILL HAS 1 OVARY BUT NOT SURE WHICH ONE 2012 ABSCESS R GROIN 2014 FAMILY HISTORY FATHER: , PNEUMONIA, CHF, NEUROPATHY, BLOOD CLOT, DIAGNOSED WITH DIABETES, HEART DISEASE, STROKE MOTHER: , CANCER, DIAGNOSED WITH DIABETES, HYPERTENSION, HEART DISEASE, STROKE, CANCER SIBLINGS: ALIVE, LUPUS, DIABETES SON(S): ALIVE DAUGHTER(S): ALIVE 2 BROTHER(S) , 5 SISTER(S) . 1 SON(S) , 1 DAUGHTER(S) - HEALTHY. SOCIAL HISTORY GENERAL: TOBACCO USE ARE YOU A:FORMER SMOKER HOW LONG HAS IT BEEN SINCE YOU LAST SMOKED?5-10 YEARS VAPORNO E-CIGARETTEYES BMI CARE GOAL FOLLOW-UP ABOVE NORMAL BMI FOLLOW-UPLIFESTYLE EDUCATION REGARDING DIET ALCOHOL SCREENING DID YOU HAVE A DRINK CONTAINING ALCOHOL IN THE PAST YEAR?NO POINTS0 INTERPRETATIONNEGATIVE RECREATIONAL DRUG USE DRUG USE?NO CAFFEINE CAFFEINE USE?YES SEXUAL HX HAD SEX IN THE LAST 12 MONTHS (VAGINAL, ORAL, OR ANAL)?NO HAVE YOU EVER HAD AN STD?NO HIV / HEP-C SCREENING HIV TEST OFFERED TO PATIENT:YES DATE OFFERED:10/26/2017 TEST ACCEPTED:NO REASON:PATIENT DECLINED BROCHURE PROVIDED TO PATIENTNO HEP-C TEST OFFERED TO PATIENT:NO RESTORATIONISM NO ALEVISM BELIEFS THAT WOULD IMPACT HEALTH CARE. LANGUAGE S[place]OREAN. LEARNING BARRIERS / SPECIAL NEEDS CHANGE FROM LAST VISIT?NO BARRIERS TO LEARNING?NO HEARING IMPAIRED?NO VISION IMPAIRED?YES :CORRECTIVE LENSES COGNITIVELY IMPAIRED?NO READINESS TO LEARN?YES LEARNING PREFERENCES?NO LEARNING CAPABILITIES PRESENT?YES EMOTIONAL BARRIERS?YES SPECIAL DEVICES?NO DOMESTIC VIOLENCE DO YOU FEEL SAFE IN YOUR ENVIRONMENT?YES OCCUPATION: UNEMPLOYED. DIET: REGULAR. EXERCISE: NO REGULAR EXERCISE. MARITAL STATUS: .. OTHERS AT HOME: ELULII-HR-HRI, BROTHER, NEPHEW AND BOYFRIEND. NEW PATIENT PAIN DIARY FROM 0-10, WHAT LEVEL IS YOUR PAIN TODAY?10 PAIN CLINIC PFS, CLERGY, PUBLIC HEALTH REFERRALS PFS REFERRAL NEEDED?NO CLERGY REFERRAL NEEDED?NO PUBLIC HEALTH REFERRAL NEEDED?NO WAS THE PROVIDER NOTIFIED OF ANY PERTINENT INFO?NO N/A HAS THE PATIENT BEEN EDUCATED REGARDING HIS/HER PLAN OF CARE?YES HAS THE PATIENT BEEN EDUCATED REGARDING PAIN, THE RISK FOR PAIN, THE IMPORTANCE OF EFFECTIVE PAIN MANAGEMENT, AND THE PAIN ASSESSMENT PROCESS?YES ADVANCE DIRECTIVE ADVANCE DIRECTIVE DISCUSSED WITH PATIENT:YES PT HAS NO ADVANCED DIRECTIVES, DECLINES INFORMATION AT THIS TIME 08/15/17 1025 REVIEWED WITH PT. AD03/15/2018 1508 REVIEWED WITH PT LAS. HOSPITALIZATION/MAJOR DIAGNOSTIC PROCEDURE ABOVE SURGERIES MRSA RIGHT GROIN 2015, C DIFF 2014 CHEST PAIN 10/20/2016 [facility] 09/2017 REVIEW OF SYSTEMS REVIEWED BY: PROVIDER: ARELIS MILLER MD . CONSTITUTIONAL: ANY CHANGE IN YOUR MEDICAL CONDITION? NO . CHILLS NO . FEVER NO . INFECTION: DO YOU HAVE NEW INFECTIONS? YES PT HAD TWO INFECTED HAIR FOLLICLES IN LEFT AXILLA, TREATED WITH DOXYCYLINE . DO YOU HAVE HISTORY OF MRSA? NO . MUSCULOSKELETAL: ANY NEW PATTERNS OF PAIN OR NUMBNESS? YES PT FELL ABOUT 3 WEEKS AGO, C/O PAIN IN LEFT SHOULDER AND LOW BACK . GASTROENTEROLOGY: ANY NEW CHANGE IN BOWEL CONTROL? YES PT REPORTS INCREASE IN FREQUENCY OF DIARRHEA. . GENITOURINARY: ANY NEW CHANGE IN BLADDER CONTROL? YES PT REPORTS SHE FELL ABOUT 3 WEEKS AGO, SINCE THEN HAS HAD PROBLEMS WITH URGENCY AND STRESS INCONTINENCE. . IS THERE A CHANCE YOU COULD BE ? NO . HEMATOLOGY/LYMPH: DO YOU TAKE ANY BLOOD THINNERS? (FOR EXAMPLE- COUMADIN, PLAVIX, AGGRENOX, PLATEL, PRADAXA, OR XARELTO) YES RUBIOQUIS . WHEN WAS YOUR LAST DOSE? DATE: TIME: . NEUROLOGY: HAVE YOU FALLEN IN THE PAST 6 MONTHS? YES PT FELL 03/01, SLIPPED ON ICE DOWN 4 STEPS. SHE WAS HOLDING AN INFANT. FELL ONTO LEFT SIDE. WENT TO ED. . ANY NEW EXTREMITY NUMBNESS OR WEAKNESS? NO . CARDIOLOGY: DO YOU HAVE A PACEMAKER OR DEFIBRILLATOR? NO . RESPIRATORY: HAVE YOU BEEN SICK IN THE PAST WEEK? NO . FEVER NO . FLU LIKE SYMPTOMS? NO . COUGH NO . INTEGUMENTARY: DO YOU HAVE ANY RASHES OR OPEN SORES? NO . ALLERGIC/IMMUNO: ARE YOU ALLERGIC TO SHELLFISH OR IV DYE? NO . ANY NEW ALLERGIES? NO . PSYCHIATRIC: DO YOU HAVE THOUGHTS OF HURTING YOURSELF OR SOMEONE ELSE? NO . ARE YOU ABUSED, NEGLECTED, OR IN AN UNSAFE ENVIRONMENT? NO . ENDOCRINOLOGY: ARE YOU DIABETIC? NO . OTHER: DO YOU NEED ANY PRESCRIPTIONS? NO . IF YES, PLEASE LIST: ____ . ANY NEW PROBLEMS WITH YOUR MEDICATIONS? NO . WHEN DID YOU LAST EAT? ____ . WHEN DID YOU LAST DRINK? ____ . WHAT DID YOU LAST DRINK? ____ . NAME OF PERSON DRIVING YOU HOME? ____ . DO YOU HAVE ANY OTHER QUESTIONS OR CONCERNS PT REPORTS SHE FELL ABOUT 3 WEEKS AGO. SINCE THAT TIME, SHE HAS HAD TROUBLE WITH BOWEL/BLADDER CONTROL. ALSO HAS PAIN IN HER LEFT SHOULDER AND LOW BACK . VITAL SIGNS WT 240 LBS, HT 61 IN, BMI 45.34 INDEX, BP 123/64 MM HG, HR 93 /MIN, RR 18 /MIN, TEMP 98.1 F, OXYGEN SAT % 97%, SAFE IN ENV? (Y/N) YES, NA INITIALS [place] 14:48, REVIEWED BY: MAR. EXAMINATION GENERAL EXAMINATION: PATIENT IS ALERT O X 3 AND COOPERATIVE. PATIENT HAS DIFFICULTY STANDING. ANTALGIC GAIT. PAIN INCREASES OVER THE LEFT LUMBAR FACET JOINTS WITH EXTENSION AND LATERAL ROTATION OF THE BACK. MRI OF THE LUMBAR SPINE DONE ON 03/31/2009 SHOWS FACET ARTHROPATHY CHANGES AT MULTIPLE LEVELS. ASSESSMENTS SPONDYLOSIS OF LUMBAR REGION WITHOUT MYELOPATHY OR RADICULOPATHY - M47.816 (PRIMARY) TREATMENT SPONDYLOSIS OF LUMBAR REGION WITHOUT MYELOPATHY OR RADICULOPATHY CLINICAL NOTES: WE DISCUSSED SEVERAL ISSUES WITH MRS. FELICE'S PAIN MANAGEMENT CASE. DUE TO THE LUMBAR SPONDYLOSIS, I WOULD LIKE TO MOVE FORWARD WITH A SECOND LUMBAR FACET DIAGNOSTIC BLOCK TO REPEAT THE RADIOFREQUENCY. WE DISCUSSED THE BENEFITS, RISKS, AND ALTERNATIVES OF THE PROCEDURE AND THE PATIENT WOULD LIKE TO PROCEED. THE PATIENT WILL FOLLOW UP IN 5 WEEKS. INSTRUCTIONS WERE GIVEN, QUESTIONS WERE ANSWERED, PATIENT REPORTS UNDERSTANDING AND AGREES WITH THE PLAN. I, ROXY FISHER, DOCUMENTED THE ABOVE INFORMATION ACTING A SCRIBE FOR DR. MILLER. I HAVE REVIEWED THE ABOVE DOCUMENT, WRITTEN BY ROXY PALMER AND I VERIFY THAT IT IS ACCURATE. PREVENTIVE MEDICINE PAIN CLINIC TEACHING: PROCEDURE TEACHING DIAGNOSTIC FACET BLOCK PROCEDURE REVIEWED WITH PT, PT VERBALIZES UNDERSTANDING 03/15/18 1640 LAS. PROCEDURE CODES FA211 ESTABILISHED PATIENT [facility] FACILITY CHARGE G8427 CURRENT MEDS W/DOSAGES DOCUMENTED G8730 PAIN ASSESS POS TOOL F/U PLAN DOC DISPOSITION & COMMUNICATION FOLLOW UP 5 WEEKS ELECTRONICALLY SIGNED BY ARELIS MILLER MD, MD ON 03/31/2018 AT 10:42 AM EST DISCLAIMER : THIS IS A VISIT SUMMARY EXTRACTED FROM THE [employer] CHART. IT IS NOT A COPY OF THE [employer] PROGRESS NOTE. RITA
== END ==
LOC: M PAIN 15:00
PROVIDERS: ATTEND Anesthesiology
DX: M47.816 Spondylosis without myelopathy or radiculopathy, lumbar region (principal); G89.29 Other chronic pain; M79.7 Fibromyalgia; G43.909 Migraine, unspecified, not intractable, without status migrainosus; F32.9 Major depressive disorder, single episode, unspecified; E78.5 Hyperlipidemia, unspecified; K21.9 Gastro-esophageal reflux disease without esophagitis; E66.01 Morbid (severe) obesity due to excess calories; Z68.42 Body mass index [BMI] 45.0-49.9, adult; Z79.01 Long term (current) use of anticoagulants; Z79.899 Other long term (current) drug therapy; Z88.1 Allergy status to other antibiotic agents; Z88.8 Allergy status to other drugs, medicaments and biological substances; Z91.013 Allergy to seafood; Z86.79 Personal history of other diseases of the circulatory system; Z87.891 Personal history of nicotine dependence

== ENCOUNTER 2018-03-18 22:34 | Emergency (ER) | payer OTHER ==
[~2018-03-18] VITALS: Ht 157.5 cm; Wt 90.0 kg
[~2018-03-18 22:34] MED LIST changes: -AZIT-12 PO; -NITR0.4S14
[2018-03-18] MEDS ORDERED: METOCLOPRAMIDE INJ 10MG/2ML VIAL (J2765) IV ONE (23:45)
[2018-03-18] MEDS ORDERED: KETOROLAC 30 MG/ML VIAL (J1885) IV ONE (23:45)
[2018-03-19 00:03] LABS: INR 0.96; PARTIAL THROMBOPLASTIN TIME 29.3 SECONDS (25.4-37.6); PROTHROMBIN TIME 12.9 SECONDS (12.1-14.4)
[2018-03-19 00:10] LABS: ETHYL ALCOHOL (ETHANOL) < 0.003 % (0.000-0.010)
[2018-03-19 00:15] LABS: CK-MB VALUE MASS < 1.0 NG/ML (<3.6); CPK CREATINE PHOSPHOKINASE 132 U/L (26-192); MB/CK RELATIVE INDEX 0.76 (< OR =4); TROPONIN I < 0.02 NG/ML (< 0.10)
--- NOTE | 2018-03-19 00:18 | REPVR ---
EXAM: CT Head Without Contrast EXAM DATE/TIME: 03/18/2018 11:09 PM CLINICAL HISTORY: 52 years old, female; Pain; Headache; Headache not specified; Additional info: Syncope TECHNIQUE: Axial computed tomography images of the head/brain without contrast. All CT scans at this facility use at least one of these dose optimization techniques: automated exposure control; mA and/or kV adjustment per patient size (includes targeted exams where dose is matched to clinical indication); or iterative reconstruction. COMPARISON: CT Head without contrast 03/02/2018 9:46 PM FINDINGS: Brain: Normal. No hemorrhage. No significant white matter disease. No edema. Ventricles: Normal. No ventriculomegaly. Bones/joints: Normal. No acute fracture. Sinuses: Normal as visualized. No acute sinusitis. Mastoid air cells: Normal as visualized. No mastoid effusion. Soft tissues: Normal. IMPRESSION: Negative noncontrast head CT without change from 03/02/2018. Electronically signed by: Quintin Gambino On 03/19/2018 00:17:41 AM
[2018-03-19 00:25] LABS: BASO % 0.4 % (0.0-1.0); EOS # 0.1 10^3/uL (0.0-0.50); EOS % 2.1 % (0.0-3.0); HEMATOCRIT 40.8 % (36.0-47.0); HEMOGLOBIN 13.8 g/dl (12.0-15.5); LYMPH # 2.2 10^3/uL (1.5-4.5); LYMPH % 41.3 % (24.0-44.0); MEAN CORPUSCULAR HEMOGLOBIN 29.7 pg (27.0-33.0); MEAN CORPUSCULAR HGB CONC 33.8 g/dl (32.0-36.5); MEAN CORPUSCULAR VOLUME 87.7 fl (80.0-96.0); MONO # 0.5 10^3/uL (0.0-0.8); MONO % 9.9 % (0.0-5.0); NEUTROPHILS # 2.5 10^3/uL (1.8-7.7); NEUTROPHILS % 45.9 % (36.0-66.0); PLATELET COUNT, AUTOMATED 248 10^3/uL (150-450); RED BLOOD COUNT 4.65 10^6/uL (4.00-5.40); WHITE BLOOD COUNT 5.4 10^3/uL (4.0-10.0)
[2018-03-19 00:44] LABS: BLOOD UREA NITROGEN 12 MG/DL (7-18); CALCIUM LEVEL 8.9 MG/DL (8.5-10.1); CARBON DIOXIDE LEVEL 26 MEQ/L (21-32); CHLORIDE LEVEL 108 MEQ/L (98-107); CREATININE FOR GFR 0.95 MG/DL (0.55-1.30); FREE T4 1.14 NG/DL (0.76-1.46); GLOMERULAR FILTRATION RATE > 60.0 (>51); GLUCOSE, FASTING 86 MG/DL (70-100); MAGNESIUM LEVEL 2.3 MG/DL (1.8-2.4); POTASSIUM SERUM 3.9 MEQ/L (3.5-5.1); SODIUM LEVEL 142 MEQ/L (136-145)
[2018-03-19 01:18] VITALS: BP 144/85
--- NOTE | 2018-03-19 18:28 | ECGEPIP ---
Stationary ECG Study [facility] - ED Test Date: 2018-03-18 Pat Name: SMITH VIVEROS Department: Room: - Gender: F Sound Engineer: : 1965 Requested By: SABRINA DAVENPORT Order Number: [id number] Reading MD: Barrie Mobley Measurements Intervals [place] Rate: 76 P: 17 [place]: 158 QRS: 7 QRSD: 91 T: 11 QT: 377 QTc: 424 Interpretive Statements SINUS RHYTHM LOW QRS VOLTAGE IN PRECORDIAL LEADS POSSIBLE INFERIOR MYOCARDIAL INFARCTION, PROBABLY OLD SIMILAR TO 02/27/18 Electronically Signed On 03-19-2018 18:28:32 EST by Barrie Mobley
== END 2018-03-19 01:30 | disposition home or self-care (01) ==
LOC: M ED 22:34
DX: G40.89 Other seizures (principal); W19.XXXA Unspecified fall, initial encounter; I48.91 Unspecified atrial fibrillation; J44.9 Chronic obstructive pulmonary disease, unspecified; I11.0 Hypertensive heart disease with heart failure; I50.9 Heart failure, unspecified
CPT/HCPCS: 70450; 80048; 82550; 82553; 83735; 84439; 84443; 85025; 85610; 85730; 93005; 96374; 96375; 99284; G0480; J1885; J2765

== ENCOUNTER 2018-03-23 18:58 | Emergency (ER) | payer OTHER ==
[~2018-03-23] VITALS: Ht 157.5 cm; Wt 90.0 kg
[2018-03-23] MEDS ORDERED: HYDR-3363 (19:15)
[2018-03-23] MEDS ORDERED: NITR0.4S14 (19:15)
[2018-03-23] MEDS ORDERED: KETOROLAC 30 MG/ML VIAL (J1885) IV ONE (19:45)
[2018-03-23 20:22] LABS: BASO % 0.4 % (0.0-1.0); EOS # 0.1 10^3/uL (0.0-0.50); EOS % 1.7 % (0.0-3.0); HEMATOCRIT 40.3 % (36.0-47.0); HEMOGLOBIN 13.1 g/dl (12.0-15.5); LYMPH # 2.2 10^3/uL (1.5-4.5); LYMPH % 43.2 % (24.0-44.0); MEAN CORPUSCULAR HEMOGLOBIN 29.2 pg (27.0-33.0); MEAN CORPUSCULAR HGB CONC 32.5 g/dl (32.0-36.5); MEAN CORPUSCULAR VOLUME 89.8 fl (80.0-96.0); MONO # 0.5 10^3/uL (0.0-0.8); MONO % 9.9 % (0.0-5.0); NEUTROPHILS # 2.3 10^3/uL (1.8-7.7); NEUTROPHILS % 44.6 % (36.0-66.0); PLATELET COUNT, AUTOMATED 210 10^3/uL (150-450); RED BLOOD COUNT 4.49 10^6/uL (4.00-5.40); WHITE BLOOD COUNT 5.2 10^3/uL (4.0-10.0)
[2018-03-23 21:05] LABS: BLOOD UREA NITROGEN 14 MG/DL (7-18); CALCIUM LEVEL 8.2 MG/DL (8.5-10.1); CARBON DIOXIDE LEVEL 26 MEQ/L (21-32); CHLORIDE LEVEL 110 MEQ/L (98-107); CK-MB VALUE MASS < 1.0 NG/ML (<3.6); CPK CREATINE PHOSPHOKINASE 86 U/L (26-192); CREATININE FOR GFR 0.93 MG/DL (0.55-1.30); GLOMERULAR FILTRATION RATE > 60.0 (>51); GLUCOSE, FASTING 76 MG/DL (70-100); MB/CK RELATIVE INDEX 1.16 (< OR =4); POTASSIUM SERUM 3.8 MEQ/L (3.5-5.1); SODIUM LEVEL 142 MEQ/L (136-145); TROPONIN I < 0.02 NG/ML (< 0.10)
[2018-03-23] MEDS ORDERED: methylPREDNISolone INJ 125 MG/2 ML VIAL (J2930) IV ONE (21:45)
[2018-03-23] MEDS ORDERED: ALBUTEROL 90 MCG/ACT 8GM HFA INHALER INH ONE (21:45)
[2018-03-23] MEDS ORDERED: AZITHROMYCIN 250 MG TAB PO ONE (21:45)
[2018-03-23] MEDS ORDERED: AZIT-12 PO (21:49)
[2018-03-23] MEDS ORDERED: PRED20TA PO (21:49)
[2018-03-23 22:01] VITALS: BP 103/63
--- NOTE | 2018-03-24 08:24 | ECGEPIP ---
Stationary ECG Study [facility] - ED Test Date: 2018-03-23 Pat Name: SMITH VIVEROS Department: Room: - Gender: F Cisco Certified Internetwork Expert: kaylee : 1965 Requested By: GABE Rivero Order Number: [id number] Reading MD: Mouna Smith Measurements Intervals [place] Rate: 71 P: 26 [place]: 145 QRS: 9 QRSD: 94 T: 28 QT: 375 QTc: 410 Interpretive Statements SINUS RHYTHM PROBABLE INFERIOR MYOCARDIAL INFARCTION, PROBABLY OLD NSTTW ABNORMALITY SIMILAR 03/18/18 Electronically Signed On 03-24-2018 8:24:54 EST by Mouna Smith
--- NOTE | 2018-03-24 09:03 | REP ---
Chest x-ray: Two views. History: Chest pain. Comparison study: February 27, [address] study from February 22, 2018. Findings: There is a calcified granuloma in the left base unchanged. EKG electrodes are seen. Lung thomason are otherwise clear. Pleural angles are sharp. Heart size is normal. Pulmonary vasculature is not increased. Impression: No active disease. Granuloma left base. Electronically Signed by Dominic Chao MD 03/24/2018 08:55 A
== END 2018-03-23 22:25 | disposition home or self-care (01) ==
LOC: M ED 18:58
DX: J44.1 Chronic obstructive pulmonary disease with (acute) exacerbation (principal); I48.91 Unspecified atrial fibrillation; I50.9 Heart failure, unspecified; Z87.891 Personal history of nicotine dependence; Z88.1 Allergy status to other antibiotic agents; Z88.8 Allergy status to other drugs, medicaments and biological substances; Z88.2 Allergy status to sulfonamides; Z91.013 Allergy to seafood; Z79.899 Other long term (current) drug therapy; Z79.01 Long term (current) use of anticoagulants
CPT/HCPCS: 36415; 71046; 80048; 82550; 82553; 85025; 93005; 93041; 94760; 96374; 96375; 99285; J1885; J2930

== ENCOUNTER → 2018-03-27 | Outpatient (CLI) | payer OTHER ==
[~2018-03-27] MED LIST changes: +AZIT-12 PO; +BUPIVACAINE HCL 0.25% 30 ML VIAL As Ordered ONE; +ISOVUE-M 300 61% 15ML VIAL (Q9967) As Ordered ONE; +LIDOCAINE 1% SDV INJ 30 ML VIAL As Ordered ONE; +NITR0.4S14; +PEPC1TAB5 PO; +TYLE500T78 PO
--- NOTE | 2018-03-27 18:47 | REP ---
Partial lumbar spine series: Two views . History: Injection procedure for pain. 28 seconds of fluoroscopy time is reported. Findings: A sequence of two fluoroscopically obtained last image hold procedural spot radiographs of the lumbar spine document needle position and contrast injection associated with injection procedure. Electronically Signed by Dominic Chao MD 03/27/2018 06:38 P
--- NOTE | 2018-04-15 00:17 | ECWPNPC ---
PATIENT NAME: SMITH VIVEROS : 1965 GENDER: FEMALE VISIT DATE: 03/27/2018 DISCHARGE DATE: 03/27/18 1312 VISIT LOCKED DATE TIME: PHYSICIAN: ARELIS MILLER MD RESOURCE: ARELIS MILLER MD REASON FOR APPOINTMENT 1. LFBD #2 HISTORY OF PRESENT ILLNESS HISTORY OF PRESENT ILLNESS: PAIN THE PATIENT DESCRIBES THE PAIN... FALL RISK SCREENING: SCREENING :NO FALLS IN THE PAST YEAR CURRENT MEDICATIONS TAKING NITROGLYCERIN 0.4 MG TABLET SUBLINGUAL DIRECTED SUBLINGUAL EVERY 5 MIN: MDD 3 TABLETS, NOTES: NONE RECENT TAKING PAROXETINE HCL 30 MG TABLET 1 TABLET IN THE MORNING ORALLY ONCE A DAY, NOTES: 03/26/18 0800 TAKING TRAZODONE HCL 50 MG TABLET 1 TABLET AT BEDTIME NEEDED ORALLY ONCE A DAY, NOTES: NONE RECENT TAKING ABILIFY 10 MG TABLET 1 TABLET ORALLY ONCE A DAY, NOTES: 03/27/18 0800 TAKING GABAPENTIN 100 MG CAPSULE 1 CAPSULE ORALLY THREE TIMES DAILY NEEDED, NOTES: NONE IN 3 DAYS TAKING SUCRALFATE 1 GM TABLET 1 TABLET ORALLY TWICE A DAY, NOTES: 03/27/18 0800 TAKING TOPIRAMATE 50 MG TABLET 1 TABLET ORALLY TWICE A DAY, NOTES: 03/26/18 0800 TAKING ELIQUIS 5 MG TABLET 1 TAB(S) ORALLY TWICE DAILY, NOTES: 03/23/18 0800 TAKING PROTONIX 40 MG TABLET DELAYED RELEASE 1 TABLET ORALLY BID, NOTES: 03/26/18 0800 TAKING LISINOPRIL 10 MG TABLET 1 TAB ORALLY DAILY, NOTES: 03/27/18 0800 NOT-TAKING ATORVASTATIN CALCIUM 40 MG TABLET 1 TABLET ORALLY ONCE A DAY NOT-TAKING PREDNISONE 20 MG TABLET 1 TABLET ORALLY ONCE A DAY NOT-TAKING HYDROXYZINE HCL 25 MG TABLET 1 TABLET NEEDED ORALLY ONCE DAILY NEEDED NOT-TAKING DOXYCYCLINE MONOHYDRATE 100 MG CAPSULE 1 CAPSULE ORALLY BID NOT-TAKING CARAFATE 1 GM TABLET 1 TABLET AT BEDTIME ON AN EMPTY STOMACH BEFORE MEALS ORALLY BEFORE BEDTIME NOT-TAKING BLOOD PRESSURE CUFF - MISCELLANEOUS DIRECTED _ DAILY MEDICATION LIST REVIEWED AND RECONCILED WITH THE PATIENT PAST MEDICAL HISTORY FIBROMYALGIA DX 4 YEARS AGO, BEING FOLLOWED AT PAIN CLINIC MIGRAINE HEADACHE STRESS INCONTINENCE DEPRESSION HYPERLIPIDEMIA VITAMIN D DEFICIENCY AFIB GERD INTERMITTENT A FIB STRESS INCONTINENCE, FEMALE CHRONIC PAIN SYNDROME UNSPECIFIED VITAMIN D DEFICIENCY MIGRAINE, UNSPECIFIED WITHOUT MENTION OF INTRACTABLE MIGRAINE WITHOUT MENTION OF STATUS MIGRAINOSUS ALLERGIES ZIPSOR: ALLERGY FLEXERIL: AGGITATION: ALLERGY LYRICA: ANAPHYLAXIS: ALLERGY DICLOFENAC POTASSIUM: AGGITATION (ZIPSOR): ALLERGY BACTRIM: NAUSEA/VOMITING: ALLERGY SHELL FISH: SWELLS, HIVES: ALLERGY CYMBALTA: NAUSEA/VOMITING: SIDE EFFECTS AMITRIPTYLINE: AGGITATION: SIDE EFFECTS GABAPENTIN: HALLUCINATIONS: SIDE EFFECTS TIZANIDINE HCL: HIVES: ALLERGY KETOROLAC TROMETHAMINE: STOMACH PAIN: ALLERGY SURGICAL HISTORY TUBAL LIGATION 1988 DISTAL 4TH FINGER REPAIR SECONDARY TO TRAUMATIC INJURY BENIGN TUMOR REMOVAL RIGHT LEG DENTAL SURGERIES CHOLECYSTECTOMY 05/2014 HYSTERECTOMY STILL HAS 1 OVARY BUT NOT SURE WHICH ONE 2012 ABSCESS R GROIN 2014 FAMILY HISTORY FATHER: , PNEUMONIA, CHF, NEUROPATHY, BLOOD CLOT, DIAGNOSED WITH DIABETES, HEART DISEASE, STROKE MOTHER: , CANCER, DIAGNOSED WITH DIABETES, HYPERTENSION, HEART DISEASE, STROKE, CANCER SIBLINGS: ALIVE, LUPUS, DIABETES SON(S): ALIVE DAUGHTER(S): ALIVE 2 BROTHER(S) , 5 SISTER(S) . 1 SON(S) , 1 DAUGHTER(S) - HEALTHY. SOCIAL HISTORY GENERAL: TOBACCO USE ARE YOU A:FORMER SMOKER HOW LONG HAS IT BEEN SINCE YOU LAST SMOKED?5-10 YEARS VAPORNO E-CIGARETTEYES BMI CARE GOAL FOLLOW-UP ABOVE NORMAL BMI FOLLOW-UPLIFESTYLE EDUCATION REGARDING DIET ALCOHOL SCREENING DID YOU HAVE A DRINK CONTAINING ALCOHOL IN THE PAST YEAR?NO POINTS0 INTERPRETATIONNEGATIVE RECREATIONAL DRUG USE DRUG USE?NO CAFFEINE CAFFEINE USE?YES SEXUAL HX HAD SEX IN THE LAST 12 MONTHS (VAGINAL, ORAL, OR ANAL)?NO HAVE YOU EVER HAD AN STD?NO HIV / HEP-C SCREENING HIV TEST OFFERED TO PATIENT:YES DATE OFFERED:10/26/2017 TEST ACCEPTED:NO REASON:PATIENT DECLINED BROCHURE PROVIDED TO PATIENTNO HEP-C TEST OFFERED TO PATIENT:NO ORIENTAL ORTHODOX NO RESTORATIONISM BELIEFS THAT WOULD IMPACT HEALTH CARE. LANGUAGE ITALIAN. LEARNING BARRIERS / SPECIAL NEEDS CHANGE FROM LAST VISIT?NO BARRIERS TO LEARNING?NO HEARING IMPAIRED?NO VISION IMPAIRED?YES :CORRECTIVE LENSES COGNITIVELY IMPAIRED?NO READINESS TO LEARN?YES LEARNING PREFERENCES?NO LEARNING CAPABILITIES PRESENT?YES EMOTIONAL BARRIERS?YES SPECIAL DEVICES?NO DOMESTIC VIOLENCE DO YOU FEEL SAFE IN YOUR ENVIRONMENT?YES OCCUPATION: UNEMPLOYED. DIET: REGULAR. EXERCISE: NO REGULAR EXERCISE. MARITAL STATUS: .. OTHERS AT HOME: [id number], BROTHER, NEPHEW AND BOYFRIEND. NEW PATIENT PAIN DIARY FROM 0-10, WHAT LEVEL IS YOUR PAIN TODAY?10 PAIN CLINIC PFS, CLERGY, PUBLIC HEALTH REFERRALS PFS REFERRAL NEEDED?NO CLERGY REFERRAL NEEDED?NO PUBLIC HEALTH REFERRAL NEEDED?NO WAS THE PROVIDER NOTIFIED OF ANY PERTINENT INFO?NO N/A HAS THE PATIENT BEEN EDUCATED REGARDING HIS/HER PLAN OF CARE?YES HAS THE PATIENT BEEN EDUCATED REGARDING PAIN, THE RISK FOR PAIN, THE IMPORTANCE OF EFFECTIVE PAIN MANAGEMENT, AND THE PAIN ASSESSMENT PROCESS?YES ADVANCE DIRECTIVE ADVANCE DIRECTIVE DISCUSSED WITH PATIENT:YES PT HAS NO ADVANCED DIRECTIVES, DECLINES INFORMATION AND ASSISTNACE WITH FORM AT THIS TIME 03/27/18 08/15/17 1025 REVIEWED WITH PT. AD03/15/2018 1508 REVIEWED WITH PT LAS03/27/18 1116 REVIEWED WITH PT BV. HOSPITALIZATION/MAJOR DIAGNOSTIC PROCEDURE ABOVE SURGERIES MRSA RIGHT GROIN 2014, C DIFF 2014 CHEST PAIN 10/20/2016 [facility] 09/2017 REVIEW OF SYSTEMS REVIEWED BY: PROVIDER: . CONSTITUTIONAL: ANY CHANGE IN YOUR MEDICAL CONDITION? NO . CHILLS NO . FEVER NO . INFECTION: DO YOU HAVE NEW INFECTIONS? NO . DO YOU HAVE HISTORY OF MRSA? NO . MUSCULOSKELETAL: ANY NEW PATTERNS OF PAIN OR NUMBNESS? YES, PT REPORTS INCREASING PAIN INTENSITY IN LEFT LEG OVER THE PAST 2 MONTHS . GASTROENTEROLOGY: ANY NEW CHANGE IN BOWEL CONTROL? NO . GENITOURINARY: ANY NEW CHANGE IN BLADDER CONTROL? NO . IS THERE A CHANCE YOU COULD BE ? NO . HEMATOLOGY/LYMPH: DO YOU TAKE ANY BLOOD THINNERS? (FOR EXAMPLE- COUMADIN, PLAVIX, AGGRENOX, PLATEL, PRADAXA, OR XARELTO) ELIQUIS . WHEN WAS YOUR LAST DOSE? 03/23/18 0800 . NEUROLOGY: HAVE YOU FALLEN IN THE PAST 12 MONTHS? YES, PT HAD A FALL ABOUT A MONTH AGO. SLIPPED DOWN A FEW STAIRS. DENIES ANY INJURIES OR ED VISIT. . ANY NEW EXTREMITY NUMBNESS OR WEAKNESS? NO . CARDIOLOGY: DO YOU HAVE A PACEMAKER OR DEFIBRILLATOR? NO . RESPIRATORY: HAVE YOU BEEN SICK IN THE PAST WEEK? NO . FEVER NO . FLU LIKE SYMPTOMS? NO . COUGH NO . INTEGUMENTARY: DO YOU HAVE ANY RASHES OR OPEN SORES? NO . ALLERGIC/IMMUNO: ARE YOU ALLERGIC TO IV DYE? NO . ANY NEW ALLERGIES? NO . PSYCHIATRIC: DO YOU HAVE THOUGHTS OF HURTING YOURSELF OR SOMEONE ELSE? NO . ARE YOU ABUSED, NEGLECTED, OR IN AN UNSAFE ENVIRONMENT? NO . ENDOCRINOLOGY: ARE YOU DIABETIC? NO . OTHER: DO YOU NEED ANY PRESCRIPTIONS? NO . IF YES, PLEASE LIST: ____ . ANY NEW PROBLEMS WITH YOUR MEDICATIONS? NO . WHEN DID YOU LAST EAT? 03/26/18 2030 . WHEN DID YOU LAST DRINK? 03/27/18 0600 . WHAT DID YOU LAST DRINK? WATER . NAME OF PERSON DRIVING YOU HOME? [place] . DO YOU HAVE ANY OTHER QUESTIONS OR CONCERNS NO . VITAL SIGNS WT 244.6 LBS, HT 61 IN, BMI 46.21 INDEX, BP 155/90 MM HG, HR 107 /MIN, RR 18 /MIN, TEMP 98.1 F, OXYGEN SAT % 98%, NA INITIALS SC 10:06, REVIEWED BY: BV. ASSESSMENTS SPONDYLOSIS OF LUMBAR REGION WITHOUT MYELOPATHY OR RADICULOPATHY - M47.816 (PRIMARY) SPONDYLOSIS OF LUMBOSACRAL REGION WITHOUT MYELOPATHY OR RADICULOPATHY - M47.817 PROCEDURES PN LUMBAR FACET BLOCK DIAGNOSTIC PRE PROCEDURE DIAGNOSIS LUMBAR SPONDYLOSIS, LUMBOSACRAL SPONDYLOSIS POST PROCEDURE DIAGNOSIS LUMBAR SPONDYLOSIS, LUMBOSACRAL SPONDYLOSIS PROCEDURE LEFT L4-L5 AND LEFT L5-S1 FACET BLOCK DIAGNOSTIC NUMBER [address] ARELIS MILLER OVERCOIL STEPPER NONE ANESTHESIA LOCAL PRE PROCEDURE NOTE THE PATIENT WITH HISTORY OF CHRONIC LOW BACK PAIN. I EVALUATED THE PATIENT AND REVIEWED THE CHART. I WENT OVER THE RISKS, ALTERNATIVES, AND BENEFITS ASSOCIATED WITH THIS PROCEDURE. THE PATIENT WOULD LIKE TO PROCEED AND GAVE CONSENT TO PERFORM THE PROCEDURE. AGREED WITH THE PATIENT WE ARE DOING THIS PROCEDURE TO DETERMINE IF THE PATIENT IS A CANDIDATE FOR A RADIOFREQUENCY ABLATION OF THE FACETS JOINTS. THE PATIENT DENIES UNEXPLAINABLE WEIGHT LOSS, FEVER, CHILLS, OR NEW CHANGES IN URINARY OR BOWEL CONTROL DESCRIPTION OF PROCEDURE THE PATIENT WAS BROUGHT TO THE PROCEDURE ROOM AND PLACED IN THE PRONE POSITION. THE LUMBOSACRAL AREA WAS CLEANED WITH CHLORAPREP SOLUTION AND DRAPED ASEPTICALLY. THE PROCEDURE WAS DONE UNDER STERILE CONDITIONS. I CHECKED LATERALITY AND THE LEVEL WHERE THE PROCEDURE WAS GOING TO BE PERFORMED WITH THE PATIENT AND THE SUPPORTING STAFF AT THE MOMENT OF THE TIME OUT IN THE PROCEDURE ROOM. UNDER FLUOROSCOPIC GUIDANCE, TARGETS WERE SELECTED AT THE INTERSECTION OF THE LEFT TRANSVERSE PROCESS OF L4, L5 AND ALA OF S1 WITH ITS RESPECTIVE SUPERIOR ARTICULAR PROCESS. LIDOCAINE WAS USED TO NUMB THE SKIN AND THE SUBCUTANEOUS TISSUE BELOW IT. SPINAL NEEDLE, 22-GAUGE WAS ADVANCED UNDER FLUOROSCOPIC GUIDANCE AND FOLLOWING PATIENT FEEDBACK UNTIL THE TARGETS WERE REACHED. POSITION OF THE NEEDLES WAS VERIFIED WITH AP AND LATERAL VIEWS. AFTER PROPER POSITION OF THE NEEDLES WAS ACHIEVED, ISOVUE-M DYE 30% 0.1 ML WAS INJECTED AT EACH SITE SHOWING ADEQUATE SPREAD OF THE DYE. THEN A SOLUTION OF 0.4 ML OF BUPIVACAINE 0.25% WAS INJECTED AT EACH SITE. THERE WAS NO EVIDENCE OF BLOOD, PARESTHESIA OR CEREBROSPINAL FLUID DURING THE PROCEDURE. THE PATIENT WAS SENT TO THE RECOVERY ROOM. THE PATIENT WAS MOVING THE EXTREMITIES AND DOING WELL. THERE WAS NO COMPLICATION DURING THE PROCEDURE. FLUOROSCOPY TIME WAS 28 SECONDS POST PROCEDURE NOTE THE PATIENT WILL DOCUMENT HIS PAIN LEVEL AND RESPONSE TO THIS PROCEDURE EVERY 30 MINUTES. THE PATIENT WILL BE SEEN IN A FOLLOW UP IN THE NEXT FEW WEEKS. FURTHER DETERMINATION FOR HIS CASE WILL BE DONE AT THE NEXT VISIT. INSTRUCTIONS WERE GIVEN, QUESTIONS WERE ANSWERED, AND THE PATIENT EXPRESSED UNDERSTANDING AND AGREED WITH THE PLAN. I, ROXY FISHER, DOCUMENTED THE ABOVE INFORMATION ACTING A SCRIBE FOR DR. MILLER. I HAVE REVIEWED THE ABOVE DOCUMENT, WRITTEN BY ROXY SANCHEZIBRaul AND I VERIFY THAT IT IS ACCURATE. DIAGNOSTIC IMAGING [facility] FACET BLOCK (PAIN)[id number] PROCEDURE CODES 6045F RADXPS IN END [id number] PXD 85633 INJ PARAVERT F JNT L/S 1 LEV, MODIFIERS: [place] [id number] INJ PARAVERT F JNT L/S 2 LEV, MODIFIERS: LT DISPOSITION & COMMUNICATION FOLLOW UP 3 WEEKS ELECTRONICALLY SIGNED BY ARELIS MILLER MD, MD ON 04/14/2018 AT 05:20 PM EST DISCLAIMER : THIS IS A VISIT SUMMARY EXTRACTED FROM THE [employer] CHART. IT IS NOT A COPY OF THE [employer] PROGRESS NOTE. MTDD
== END ==
LOC: M PAIN 10:45
PROVIDERS: ATTEND Anesthesiology
DX: G89.29 Other chronic pain (principal); M47.816 Spondylosis without myelopathy or radiculopathy, lumbar region; M47.817 Spondylosis without myelopathy or radiculopathy, lumbosacral region; M79.7 Fibromyalgia; G43.909 Migraine, unspecified, not intractable, without status migrainosus; F32.9 Major depressive disorder, single episode, unspecified; E78.5 Hyperlipidemia, unspecified; E66.01 Morbid (severe) obesity due to excess calories; Z68.42 Body mass index [BMI] 45.0-49.9, adult; Z79.01 Long term (current) use of anticoagulants; Z79.899 Other long term (current) drug therapy; Z88.1 Allergy status to other antibiotic agents; Z88.8 Allergy status to other drugs, medicaments and biological substances; Z91.013 Allergy to seafood; Z87.891 Personal history of nicotine dependence; Z86.79 Personal history of other diseases of the circulatory system
CPT/HCPCS: 64493; 64494; Q9967

== ENCOUNTER 2018-04-02 18:19 | Emergency (ER) | payer OTHER ==
[~2018-04-02] VITALS: Ht 157.5 cm; Wt 100.0 kg
[~2018-04-02 18:19] MED LIST changes: -BUPIVACAINE HCL 0.25% 30 ML VIAL As Ordered ONE; -ISOVUE-M 300 61% 15ML VIAL (Q9967) As Ordered ONE; -LIDOCAINE 1% SDV INJ 30 ML VIAL As Ordered ONE; -PEPC1TAB5 PO; -TYLE500T78 PO
[2018-04-02 19:03] LABS: BASO % 0.4 % (0.0-1.0); EOS # 0.1 10^3/uL (0.0-0.50); EOS % 2.1 % (0.0-3.0); HEMATOCRIT 45.4 % (36.0-47.0); HEMOGLOBIN 14.7 g/dl (12.0-15.5); LYMPH # 1.9 10^3/uL (1.5-4.5); LYMPH % 37.4 % (24.0-44.0); MEAN CORPUSCULAR HEMOGLOBIN 29.6 pg (27.0-33.0); MEAN CORPUSCULAR HGB CONC 32.4 g/dl (32.0-36.5); MEAN CORPUSCULAR VOLUME 91.3 fl (80.0-96.0); MONO # 0.5 10^3/uL (0.0-0.8); MONO % 9.5 % (0.0-5.0); NEUTROPHILS # 2.6 10^3/uL (1.8-7.7); PLATELET COUNT, AUTOMATED 232 10^3/uL (150-450); RED BLOOD COUNT 4.97 10^6/uL (4.00-5.40); WHITE BLOOD COUNT 5.1 10^3/uL (4.0-10.0)
[2018-04-02 19:20] LABS: INR 0.91; PROTHROMBIN TIME 12.3 SECONDS (12.1-14.4)
[2018-04-02 19:27] LABS: ALBUMIN 3.5 GM/DL (3.2-5.2); ALT/SGPT 64 U/L (12-78); BILIRUBIN,TOTAL 0.3 MG/DL (0.2-1.0); BLOOD UREA NITROGEN 13 MG/DL (7-18); CALCIUM LEVEL 8.8 MG/DL (8.5-10.1); CARBON DIOXIDE LEVEL 26 MEQ/L (21-32); CHLORIDE LEVEL 106 MEQ/L (98-107); CK-MB VALUE MASS < 1.0 NG/ML (<3.6); CPK CREATINE PHOSPHOKINASE 94 U/L (26-192); CREATININE FOR GFR 1.06 MG/DL (0.55-1.30); GLOMERULAR FILTRATION RATE 57.7 (>51); GLUCOSE, FASTING 83 MG/DL (70-100); LIPASE 250 U/L (73-393); MB/CK RELATIVE INDEX 1.06 (< OR =4); SODIUM LEVEL 140 MEQ/L (136-145); TOTAL PROTEIN 6.8 GM/DL (6.4-8.2); TROPONIN I < 0.02 NG/ML (< 0.10)
--- NOTE | 2018-04-02 19:54 | REP ---
PORTABLE CHEST: AP portable view of the chest is performed and compared to prior study of 03/23/2018. There is no acute infiltrate or pulmonary edema. Calcified granuloma is again seen in the left lower lobe. Heart and mediastinum are unremarkable and unchanged. IMPRESSION: No acute pulmonary disease. Electronically Signed by Jose Martinez MD 04/02/2018 07:57 P
[2018-04-02] MEDS ORDERED: GI COCKTAIL 50ML BTL(HYOSCYAMINE/MAALOX/LIDOCAINE VISCOUS)(1:3:1) PO ONE (20:00)
[2018-04-02] MEDS ORDERED: PEPC1TAB5 PO (21:44)
[2018-04-02] MEDS ORDERED: FAMOTIDINE 20 MG TAB PO ONE (21:45)
[2018-04-02 22:00] VITALS: BP 128/56
[2018-04-02 23:56] LABS: BILIRUBIN,DIRECT < 0.1 MG/DL (0.0-0.2)
--- NOTE | 2018-04-03 17:43 | ECGEPIP ---
Stationary ECG Study [facility] - ED Test Date: 2018-04-02 Pat Name: SMITH VIVEROS Department: Room: - Gender: F Search Consultant: gt : 1965 Requested By: Barrie Kline Order Number: [id number] Reading MD: Mouna Smith Measurements Intervals [place] Rate: 86 P: 17 [place]: 149 QRS: 7 QRSD: 93 T: 29 QT: 353 QTc: 424 Interpretive Statements SINUS RHYTHM LOW QRS VOLTAGE IN PRECORDIAL LEADS PROBABLE INFERIOR MYOCARDIAL INFARCTION, PROBABLY OLD INCREASED RATE 03/23/18 Electronically Signed On 04-03-2018 17:42:39 EST by Mouna Smith
== END 2018-04-02 22:17 | disposition home or self-care (01) ==
LOC: M ED 18:19
DX: R07.89 Other chest pain (principal); I25.10 Atherosclerotic heart disease of native coronary artery without angina pectoris; Z87.891 Personal history of nicotine dependence; Z88.1 Allergy status to other antibiotic agents; Z88.8 Allergy status to other drugs, medicaments and biological substances; Z88.2 Allergy status to sulfonamides; Z91.013 Allergy to seafood; Z79.899 Other long term (current) drug therapy; Z79.01 Long term (current) use of anticoagulants

== ENCOUNTER 2018-04-07 18:44 | Emergency (ER) | payer OTHER ==
[~2018-04-07] VITALS: Ht 157.5 cm; Wt 100.0 kg
[~2018-04-07 18:44] MED LIST changes: +PEPC1TAB5 PO
--- NOTE | 2018-04-07 19:03 | REP ---
Clinical: Trauma/fall . Comparison: 03/18/2018 . Findings: The ventricles, sulci, and cisterns are normal in position and appearance. Martinez-white differentiation is maintained. No acute intracranial hemorrhage, mass/mass effect, pathology or trauma/injury. No evidence for acute infarction. No extra-axial fluid collection. Calvarium is intact. Paranasal sinuses and mastoid air cells are clear. Impression: Normal noncontrast head CT. No evidence for acute intracranial pathology or trauma/injury. Electronically Signed by Fletcher Serna MD 04/07/2018 06:55 P
[2018-04-07 19:54] VITALS: BP 114/75
[2018-04-08] MEDS ORDERED: TYLE500T78 PO (23:01)
== END 2018-04-07 20:16 | disposition home or self-care (01) ==
LOC: M ED 18:44
DX: S09.90XA Unspecified injury of head, initial encounter (principal); W01.0XXA Fall on same level from slipping, tripping and stumbling without subsequent striking against object, initial encounter; W22.8XXA Striking against or struck by other objects, initial encounter; Y92.019 Unspecified place in single-family (private) house as the place of occurrence of the external cause

== ENCOUNTER 2018-04-08 21:53 | Emergency (ER) | payer OTHER ==
[~2018-04-08] VITALS: Ht 157.5 cm; Wt 100.0 kg
[2018-04-08 21:54] VITALS: BP 137/86
[2018-04-08] MEDS ORDERED: METOCLOPRAMIDE 10 MG TAB PO ONE (23:00)
[2018-04-08] MEDS ORDERED: ACETAMINOPHEN 325 MG TAB PO ONE (23:00)
[2018-04-08] MEDS ORDERED: TYLE500T78 PO (23:01)
== END 2018-04-08 23:17 | disposition home or self-care (01) ==
LOC: M ED 21:53
DX: M79.602 Pain in left arm (principal); R51 Headache; I48.91 Unspecified atrial fibrillation; I50.9 Heart failure, unspecified; J44.9 Chronic obstructive pulmonary disease, unspecified; G43.909 Migraine, unspecified, not intractable, without status migrainosus; F44.5 Conversion disorder with seizures or convulsions; Z79.01 Long term (current) use of anticoagulants; Z79.899 Other long term (current) drug therapy; Z88.8 Allergy status to other drugs, medicaments and biological substances; Z88.1 Allergy status to other antibiotic agents; Z91.013 Allergy to seafood

== ENCOUNTER 2018-04-16 22:09 | Emergency (ER) | payer OTHER ==
[~2018-04-16] VITALS: Ht 157.5 cm; Wt 100.0 kg
[~2018-04-16 22:09] MED LIST changes: +TYLE500T78 PO
--- NOTE | 2018-04-16 23:39 | REPVR ---
EXAM: US Left Duplex Upper Extremity Veins, Limited EXAM DATE/TIME: 04/16/2018 11:04 PM CLINICAL HISTORY: 53 years old, female; Pain; Arn, upper; Left; Additional info: Swelling pain TECHNIQUE: Real-time Duplex ultrasound of the Left Upper Extremity with 2-D rm scale, color Doppler flow and spectral waveform analysis. Limited exam focused on the left upper extremity veins. COMPARISON: US DUPLEX EXT UPPER VEINS UNILATE 01/09/2018 3:31 AM FINDINGS: Left deep veins: Unremarkable. Axillary and brachial veins are patent throughout without thrombus. Normal Doppler waveforms. Normal compressibility and/or augmentation response. Visualized internal jugular and subclavian veins are patent. Left superficial veins: Unremarkable. Visualized cephalic and basilic veins are patent without thrombus. Soft tissues: Soft tissue edema.. IMPRESSION: No acute findings. No evidence of deep vein thrombosis. Previously demonstrated clot in the basilic vein no longer visualized. Electronically signed by: Giovanni Khanna On 04/16/2018 23:38:57 PM
[2018-04-17 00:37] VITALS: BP 134/86
== END 2018-04-17 00:41 | disposition home or self-care (01) ==
LOC: M ED 22:09
DX: M79.631 Pain in right forearm (principal); Z86.718 Personal history of other venous thrombosis and embolism; I48.91 Unspecified atrial fibrillation; I10 Essential (primary) hypertension; E78.5 Hyperlipidemia, unspecified; K21.9 Gastro-esophageal reflux disease without esophagitis; J44.9 Chronic obstructive pulmonary disease, unspecified; E66.01 Morbid (severe) obesity due to excess calories

== ENCOUNTER → 2018-04-19 | Outpatient (CLI) | payer OTHER ==
--- NOTE | 2018-04-29 00:12 | ECWPNPC ---
PATIENT NAME: SMITH VIVEROS : 1965 GENDER: FEMALE VISIT DATE: 04/19/2018 DISCHARGE DATE: 04/19/18 1209 VISIT LOCKED DATE TIME: PHYSICIAN: ARELIS MILLER MD RESOURCE: ARELIS MILLER MD REASON FOR APPOINTMENT 1. POST PROC HISTORY OF PRESENT ILLNESS HISTORY OF PRESENT ILLNESS: PAIN THE PATIENT DESCRIBES THE PAIN... 53 YEAR OLD FEMALE PATIENT WITH A HISTORY OF CHRONIC LOW BACK PAIN. THE PATIENT DESCRIBES THE PAIN ACHING, BURNING, STABBING, SHOOTING, AND CONTINUOUS WITH A PAIN SCORE OF 4-8/10 DEPENDING ON PHYSICAL ACTIVITY. THE PATIENT WAS HERE FOR A DIAGNOSTIC LUMBAR FACET BLOCK ON 03/27/2018 AND REPORTS HAVING MORE THAN 50% PAIN RELIEF FOR 3 DAYS. THE PATIENT SAYS THAT RADIOFREQUENCY HAS HELPED HER IN THE PAST. THE PATIENT SAYS THAT SHE IS HAVING DIFFICULTY SLEEPING DUE TO THIS PAIN. PATIENT DENIES UNEXPLAINABLE WEIGHT LOSS, FEVER, CHILLS, NEW CHANGES ON HER URINARY OR BOWEL CONTROL. FALL RISK SCREENING: SCREENING :NO FALLS IN THE PAST YEAR CURRENT MEDICATIONS TAKING NITROGLYCERIN 0.4 MG TABLET SUBLINGUAL DIRECTED SUBLINGUAL EVERY 5 MIN: MDD 3 TABLETS TAKING PAROXETINE HCL 30 MG TABLET 1 TABLET IN THE MORNING ORALLY ONCE A DAY TAKING TRAZODONE HCL 50 MG TABLET 1 TABLET AT BEDTIME NEEDED ORALLY ONCE A DAY TAKING ABILIFY 10 MG TABLET 1 TABLET ORALLY ONCE A DAY TAKING GABAPENTIN 100 MG CAPSULE 1 CAPSULE ORALLY THREE TIMES DAILY NEEDED TAKING SUCRALFATE 1 GM TABLET 1 TABLET ORALLY TWICE A DAY TAKING TOPIRAMATE 50 MG TABLET 1 TABLET ORALLY TWICE A DAY TAKING ELIQUIS 5 MG TABLET 1 TAB(S) ORALLY TWICE DAILY TAKING PROTONIX 40 MG TABLET DELAYED RELEASE 1 TABLET ORALLY BID TAKING LISINOPRIL 10 MG TABLET 1 TAB ORALLY DAILY NOT-TAKING ATORVASTATIN CALCIUM 40 MG TABLET 1 TABLET ORALLY ONCE A DAY NOT-TAKING PREDNISONE 20 MG TABLET 1 TABLET ORALLY ONCE A DAY NOT-TAKING HYDROXYZINE HCL 25 MG TABLET 1 TABLET NEEDED ORALLY ONCE DAILY NEEDED NOT-TAKING DOXYCYCLINE MONOHYDRATE 100 MG CAPSULE 1 CAPSULE ORALLY BID NOT-TAKING CARAFATE 1 GM TABLET 1 TABLET AT BEDTIME ON AN EMPTY STOMACH BEFORE MEALS ORALLY BEFORE BEDTIME NOT-TAKING BLOOD PRESSURE CUFF - MISCELLANEOUS DIRECTED _ DAILY MEDICATION LIST REVIEWED AND RECONCILED WITH THE PATIENT PAST MEDICAL HISTORY FIBROMYALGIA DX 4 YEARS AGO, BEING FOLLOWED AT PAIN CLINIC MIGRAINE HEADACHE STRESS INCONTINENCE DEPRESSION HYPERLIPIDEMIA VITAMIN D DEFICIENCY AFIB GERD INTERMITTENT A FIB STRESS INCONTINENCE, FEMALE CHRONIC PAIN SYNDROME UNSPECIFIED VITAMIN D DEFICIENCY MIGRAINE, UNSPECIFIED WITHOUT MENTION OF INTRACTABLE MIGRAINE WITHOUT MENTION OF STATUS MIGRAINOSUS ALLERGIES ZIPSOR: ALLERGY FLEXERIL: AGGITATION: ALLERGY LYRICA: ANAPHYLAXIS: ALLERGY DICLOFENAC POTASSIUM: AGGITATION (ZIPSOR): ALLERGY BACTRIM: NAUSEA/VOMITING: ALLERGY SHELL FISH: SWELLS, HIVES: ALLERGY CYMBALTA: NAUSEA/VOMITING: SIDE EFFECTS AMITRIPTYLINE: AGGITATION: SIDE EFFECTS GABAPENTIN: HALLUCINATIONS: SIDE EFFECTS TIZANIDINE HCL: HIVES: ALLERGY KETOROLAC TROMETHAMINE: STOMACH PAIN: ALLERGY SURGICAL HISTORY TUBAL LIGATION 1988 DISTAL 4TH FINGER REPAIR SECONDARY TO TRAUMATIC INJURY BENIGN TUMOR REMOVAL RIGHT LEG DENTAL SURGERIES CHOLECYSTECTOMY 05/2014 HYSTERECTOMY STILL HAS 1 OVARY BUT NOT SURE WHICH ONE 2012 ABSCESS R GROIN 2014 FAMILY HISTORY FATHER: , PNEUMONIA, CHF, NEUROPATHY, BLOOD CLOT, DIAGNOSED WITH DIABETES, HEART DISEASE, STROKE MOTHER: , CANCER, DIAGNOSED WITH DIABETES, HYPERTENSION, HEART DISEASE, STROKE, CANCER SIBLINGS: ALIVE, LUPUS, DIABETES SON(S): ALIVE DAUGHTER(S): ALIVE 2 BROTHER(S) , 5 SISTER(S) . 1 SON(S) , 1 DAUGHTER(S) - HEALTHY. SOCIAL HISTORY GENERAL: TOBACCO USE ARE YOU A:FORMER SMOKER HOW LONG HAS IT BEEN SINCE YOU LAST SMOKED?5-10 YEARS VAPORNO E-CIGARETTEYES BMI CARE GOAL FOLLOW-UP ABOVE NORMAL BMI FOLLOW-UPLIFESTYLE EDUCATION REGARDING DIET ALCOHOL SCREENING DID YOU HAVE A DRINK CONTAINING ALCOHOL IN THE PAST YEAR?NO POINTS0 INTERPRETATIONNEGATIVE RECREATIONAL DRUG USE DRUG USE?NO CAFFEINE CAFFEINE USE?YES SEXUAL HX HAD SEX IN THE LAST 12 MONTHS (VAGINAL, ORAL, OR ANAL)?NO HAVE YOU EVER HAD AN STD?NO HIV / HEP-C SCREENING HIV TEST OFFERED TO PATIENT:YES DATE OFFERED:10/26/2017 TEST ACCEPTED:NO REASON:PATIENT DECLINED BROCHURE PROVIDED TO PATIENTNO HEP-C TEST OFFERED TO PATIENT:NO JAINISM NO [place] BELIEFS THAT WOULD IMPACT HEALTH CARE. LANGUAGE YI. LEARNING BARRIERS / SPECIAL NEEDS CHANGE FROM LAST VISIT?NO BARRIERS TO LEARNING?NO HEARING IMPAIRED?NO VISION IMPAIRED?YES :CORRECTIVE LENSES COGNITIVELY IMPAIRED?NO READINESS TO LEARN?YES LEARNING PREFERENCES?NO LEARNING CAPABILITIES PRESENT?YES EMOTIONAL BARRIERS?YES SPECIAL DEVICES?NO DOMESTIC VIOLENCE DO YOU FEEL SAFE IN YOUR ENVIRONMENT?YES OCCUPATION: UNEMPLOYED. DIET: REGULAR. EXERCISE: NO REGULAR EXERCISE. MARITAL STATUS: .. OTHERS AT HOME: [id number], BROTHER, NEPHEW AND BOYFRIEND. NEW PATIENT PAIN DIARY FROM 0-10, WHAT LEVEL IS YOUR PAIN TODAY?10 PAIN CLINIC PFS, CLERGY, PUBLIC HEALTH REFERRALS PFS REFERRAL NEEDED?NO CLERGY REFERRAL NEEDED?NO PUBLIC HEALTH REFERRAL NEEDED?NO WAS THE PROVIDER NOTIFIED OF ANY PERTINENT INFO?NO N/A HAS THE PATIENT BEEN EDUCATED REGARDING HIS/HER PLAN OF CARE?YES HAS THE PATIENT BEEN EDUCATED REGARDING PAIN, THE RISK FOR PAIN, THE IMPORTANCE OF EFFECTIVE PAIN MANAGEMENT, AND THE PAIN ASSESSMENT PROCESS?YES ADVANCE DIRECTIVE ADVANCE DIRECTIVE DISCUSSED WITH PATIENT:YES PT HAS NO ADVANCED DIRECTIVES, DECLINES INFORMATION AND ASSISTNACE WITH FORM AT THIS TIME 08/15/17 1025 REVIEWED WITH PT. AD03/15/2018 1508 REVIEWED WITH PT LAS03/27/18 1116 REVIEWED WITH PT BV. HOSPITALIZATION/MAJOR DIAGNOSTIC PROCEDURE ABOVE SURGERIES MRSA RIGHT GROIN 2014, C DIFF 2014 CHEST PAIN 10/20/2016 [facility] [place] REVIEW OF SYSTEMS REVIEWED BY: PROVIDER: ARELIS MILLER MD . CONSTITUTIONAL: ANY CHANGE IN YOUR MEDICAL CONDITION? NO . CHILLS NO . FEVER NO . INFECTION: DO YOU HAVE NEW INFECTIONS? NO . DO YOU HAVE HISTORY OF MRSA? NO . MUSCULOSKELETAL: ANY NEW PATTERNS OF PAIN OR NUMBNESS? NO . GASTROENTEROLOGY: ANY NEW CHANGE IN BOWEL CONTROL? NO . GENITOURINARY: ANY NEW CHANGE IN BLADDER CONTROL? NO . IS THERE A CHANCE YOU COULD BE ? NO . HEMATOLOGY/LYMPH: DO YOU TAKE ANY BLOOD THINNERS? (FOR EXAMPLE- COUMADIN, PLAVIX, AGGRENOX, PLATEL, PRADAXA, OR XARELTO) YES, ELIQUIS . WHEN WAS YOUR LAST DOSE? DATE: TIME: . NEUROLOGY: HAVE YOU FALLEN IN THE PAST 12 MONTHS? YES, FELL 03/29/18 FROM LOSS OF BALANCE, INJURING LOW BACK, PT WAS SEEN AT [facility] ER 03/27 OR 03/28 WHERE IMAGING WAS DONE, PT WAS TOLD SHE WAS FINE AND SENT HOME . ANY NEW EXTREMITY NUMBNESS OR WEAKNESS? YES, LEFT ARM PAIN AND WEAKNESS X MONTHS WORSENING IN PAST 2 WEEKS. PT WAS SEEN AT [facility] ER FOR THIS 2 DAYS AGO WHERE IMAGING WAS DONE AND TOLD A SUPERFICIAL BLOOD CLOT HAS RESOLVED, PT SENT HOME . CARDIOLOGY: DO YOU HAVE A PACEMAKER OR DEFIBRILLATOR? NO . RESPIRATORY: HAVE YOU BEEN SICK IN THE PAST WEEK? NO . FEVER NO . FLU LIKE SYMPTOMS? NO . COUGH NO . INTEGUMENTARY: DO YOU HAVE ANY RASHES OR OPEN SORES? NO . ALLERGIC/IMMUNO: ARE YOU ALLERGIC TO IV DYE? NO . ANY NEW ALLERGIES? NO . PSYCHIATRIC: DO YOU HAVE THOUGHTS OF HURTING YOURSELF OR SOMEONE ELSE? NO . ARE YOU ABUSED, NEGLECTED, OR IN AN UNSAFE ENVIRONMENT? NO . ENDOCRINOLOGY: ARE YOU DIABETIC? NO . OTHER: DO YOU NEED ANY PRESCRIPTIONS? NO . IF YES, PLEASE LIST: ____ . ANY NEW PROBLEMS WITH YOUR MEDICATIONS? NO . WHEN DID YOU LAST EAT? ____ . WHEN DID YOU LAST DRINK? ____ . WHAT DID YOU LAST DRINK? ____ . NAME OF PERSON DRIVING YOU HOME? ____ . DO YOU HAVE ANY OTHER QUESTIONS OR CONCERNS NO . VITAL SIGNS WT 249.2 LBS, HT 61 IN, BMI 47.08 INDEX, BP 158/93 MM HG, HR 78 /MIN, RR 18 /MIN, TEMP 96.2 F, OXYGEN SAT % 91%, NA INITIALS SC 09:39, REVIEWED BY: EM. EXAMINATION GENERAL EXAMINATION: PATIENT IS ALERT O X 3 AND COOPERATIVE. PAIN INCREASES OVER THE LUMBAR FACET JOINTS WITH EXTENSION AND LATERAL ROTATION OF THE BACK. MRI OF THE LUMBAR SPINE DONE ON 06/28/2009 SHOWS FACET ARTHROPATHY CHANGES AT MULTIPLE LEVELS. ASSESSMENTS SPONDYLOSIS OF LUMBAR REGION WITHOUT MYELOPATHY OR RADICULOPATHY - M47.816 (PRIMARY) TREATMENT SPONDYLOSIS OF LUMBAR REGION WITHOUT MYELOPATHY OR RADICULOPATHY CLINICAL NOTES: WE DISCUSSED SEVERAL ISSUES WITH MRS. VIVEROS'S PAIN MANAGEMENT CASE. I WOULD LIKE THE PATIENT TO START USING METAXALONE TO AID IN PAIN RELIEF. DUE TO THE LUMBAR SPONDYLOSIS AND THE PATIENT HAVING SIGNIFICANT PAIN RELIEF AFTER 2 DIAGNOSTIC LUMBAR FACET BLOCKS, I WOULD LIKE TO MOVE FORWARD WITH RADIOFREQUENCY AT THIS TIME. WE DISCUSSED THE BENEFITS, RISKS, AND ALTERNATIVES OF THE PROCEDURE AND THE PATIENT WOULD LIKE TO PROCEED. THE PATIENT WILL FOLLOW UP IN 6 WEEKS. INSTRUCTIONS WERE GIVEN, QUESTIONS WERE ANSWERED, PATIENT REPORTS UNDERSTANDING AND AGREES WITH THE PLAN. I, ROXY FISHER, DOCUMENTED THE ABOVE INFORMATION ACTING A SCRIBE FOR DR. MILLER. I HAVE REVIEWED THE ABOVE DOCUMENT, WRITTEN BY ROXY PALMER AND I VERIFY THAT IT IS ACCURATE. OTHERS START TIZANIDINE HCL TABLET, 2 MG, 1 TABLET NEEDED, ORALLY, BEFORE BEDTIME MAY REPEAT IN 4HRS MDD2, 30 DAY(S), 45, REFILLS 1 START METAXALONE TABLET, 400 MG, 1 TABLETS, ORALLY FOR SPASMS AND PAIN, BEFORE BEDTIME MAY REPEAT IN 4HRS, 30 DAY(S), 45, REFILLS 1 PREVENTIVE MEDICINE PAIN CLINIC TEACHING: MEDICATIONS PT GIVEN WRITTEN AND VERBAL EDUCATION ON METAXALONE. PT VERBALIZES UNDERSTANDING OF ALL EDUCATION. MELISSA HERMOSILLO 04/19/2018 12:08:37 PM > . PROCEDURE TEACHING PT GIVEN WRITTEN AND VERBAL PRE-PROCEDURE INSTRUCTIONS. PT VERBALIZES UNDERSTANDING OF ALL INSTRUCTIONS. MELISSA HERMOSILLO 04/19/2018 12:08:00 PM > . PROCEDURE CODES FA211 ESTABILISHED PATIENT [facility] FACILITY CHARGE G8427 CURRENT MEDS W/DOSAGES DOCUMENTED G8730 PAIN ASSESS POS TOOL F/U PLAN DOC DISPOSITION & COMMUNICATION FOLLOW UP 6 WEEKS ELECTRONICALLY SIGNED BY ARELIS MILLER MD, ON 04/28/2018 AT 09:49 AM EST DISCLAIMER : THIS IS A VISIT SUMMARY EXTRACTED FROM THE [employer] CHART. IT IS NOT A COPY OF THE [employer] PROGRESS NOTE. ASPEND
== END ==
LOC: M PAIN 09:45
PROVIDERS: ATTEND Anesthesiology
DX: M47.816 Spondylosis without myelopathy or radiculopathy, lumbar region (principal); G89.29 Other chronic pain; G43.909 Migraine, unspecified, not intractable, without status migrainosus; F32.9 Major depressive disorder, single episode, unspecified; K21.9 Gastro-esophageal reflux disease without esophagitis; E66.01 Morbid (severe) obesity due to excess calories; Z68.42 Body mass index [BMI] 45.0-49.9, adult; Z87.891 Personal history of nicotine dependence; Z88.6 Allergy status to analgesic agent; Z88.2 Allergy status to sulfonamides; Z88.1 Allergy status to other antibiotic agents; Z88.8 Allergy status to other drugs, medicaments and biological substances; Z91.013 Allergy to seafood; Z79.899 Other long term (current) drug therapy; Z86.79 Personal history of other diseases of the circulatory system

== ENCOUNTER 2018-04-23 18:40 | Emergency (ER) | payer OTHER ==
[~2018-04-23] VITALS: Ht 157.5 cm; Wt 101.8 kg
[2018-04-23] MEDS ORDERED: MORPHINE 4 MG/ML 1ML VIAL/SYRINGE (J2270) IV ONE (21:00)
[2018-04-23] MEDS ORDERED: NS 1,000 ML IV ONE (21:00)
[2018-04-23 22:46] LABS: BASO % 0.6 % (0.0-1.0); EOS # 0.1 10^3/uL (0.0-0.50); EOS % 1.9 % (0.0-3.0); HEMATOCRIT 41.5 % (36.0-47.0); HEMOGLOBIN 13.4 g/dl (12.0-15.5); LYMPH # 2.2 10^3/uL (1.5-4.5); LYMPH % 47.4 % (24.0-44.0); MEAN CORPUSCULAR HEMOGLOBIN 29.4 pg (27.0-33.0); MEAN CORPUSCULAR HGB CONC 32.3 g/dl (32.0-36.5); MONO # 0.4 10^3/uL (0.0-0.8); MONO % 8.4 % (0.0-5.0); NEUTROPHILS # 1.9 10^3/uL (1.8-7.7); NEUTROPHILS % 41.5 % (36.0-66.0); PLATELET COUNT, AUTOMATED 200 10^3/uL (150-450); RED BLOOD COUNT 4.56 10^6/uL (4.00-5.40); WHITE BLOOD COUNT 4.7 10^3/uL (4.0-10.0)
[2018-04-23] MEDS ORDERED: MORPHINE 10 MG/ML 1ML VIAL (J2270) IM ONE (23:00)
[2018-04-23 23:16] LABS: ALBUMIN 3.5 GM/DL (3.2-5.2); ALT/SGPT 41 U/L (12-78); BILIRUBIN,DIRECT < 0.1 MG/DL (0.0-0.2); BILIRUBIN,TOTAL 0.3 MG/DL (0.2-1.0); BLOOD UREA NITROGEN 8 MG/DL (7-18); CALCIUM LEVEL 8.7 MG/DL (8.5-10.1); CARBON DIOXIDE LEVEL 29 MEQ/L (21-32); CHLORIDE LEVEL 107 MEQ/L (98-107); CPK CREATINE PHOSPHOKINASE 156 U/L (26-192); CREATININE FOR GFR 0.89 MG/DL (0.55-1.30); GLOMERULAR FILTRATION RATE > 60.0 (>51); GLUCOSE, FASTING 87 MG/DL (70-100); LIPASE 135 U/L (73-393); MB/CK RELATIVE INDEX 0.64 (< OR =4); NT-PRO BNP 128 PG/ML (<125); POTASSIUM SERUM 4.3 MEQ/L (3.5-5.1); SODIUM LEVEL 143 MEQ/L (136-145); TOTAL PROTEIN 6.5 GM/DL (6.4-8.2); TROPONIN I < 0.02 NG/ML (< 0.10)
[2018-04-24 00:08] VITALS: BP 143/88
== END 2018-04-24 00:20 | disposition home or self-care (01) ==
LOC: M ED 18:40
DX: M79.7 Fibromyalgia (principal); I48.91 Unspecified atrial fibrillation; Z87.891 Personal history of nicotine dependence
CPT/HCPCS: 36415; 80048; 80076; 81001; 82550; 82553; 83690; 83880; 85025; 96372; 99284; J2270

== ENCOUNTER 2018-05-03 20:18 | Emergency (ER) | payer OTHER ==
[~2018-05-03] VITALS: Ht 157.5 cm; Wt 100.0 kg
[2018-05-03] MEDS ORDERED: META1TAB19 PO (20:29)
[2018-05-03] MEDS ORDERED: NAPR-50 PO (22:23)
[2018-05-03 22:24] VITALS: BP 148/77
--- NOTE | 2018-05-04 08:26 | REP ---
Right knee two views: There is demineralization. There is old healed fracture of the proximal fibular shaft. The joint spaces are unremarkable. There is no acute fracture or dislocation. No effusion. No calcifications or foreign bodies. There is no effusion. Impression: No acute fracture or dislocation. No effusion. Demineralization. Old healed fibular fracture. Left knee two views: Mineralization and joint spaces are normal. There is no fracture or dislocation and no effusion. No calcifications or foreign bodies. Impression: Negative two-view left knee. Electronically Signed by Jose Castillo MD 05/04/2018 08:18 A
--- NOTE | 2018-05-04 08:27 | REP ---
AP pelvis single view : There is no fracture or dislocation. Mineralization and joint spaces are normal. There are no calcifications or foreign bodies. Impression: Negative AP pelvis . Left hip two views : There is no fracture or dislocation. Mineralization is normal. There is joint space narrowing compatible with arthropathy. There are no calcifications or foreign bodies. Impression: Joint space narrowing, otherwise negative left hip . Electronically Signed by Jose Castillo MD 05/04/2018 08:19 A
--- NOTE | 2018-05-04 08:28 | REP ---
Left wrist four view : There is no fracture or dislocation. Mineralization and joint spaces are normal. There are no calcifications or foreign bodies. Impression: Negative left wrist . Electronically Signed by Jose Castillo MD 05/04/2018 08:20 A
== END 2018-05-03 22:29 | disposition home or self-care (01) ==
LOC: M ED 20:18
DX: S70.02XA Contusion of left hip, initial encounter (principal); S80.01XA Contusion of right knee, initial encounter; S80.02XA Contusion of left knee, initial encounter; S60.212A Contusion of left wrist, initial encounter; W01.0XXA Fall on same level from slipping, tripping and stumbling without subsequent striking against object, initial encounter; Y92.410 Unspecified street and highway as the place of occurrence of the external cause; I10 Essential (primary) hypertension; E78.00 Pure hypercholesterolemia, unspecified; K21.9 Gastro-esophageal reflux disease without esophagitis; R56.9 Unspecified convulsions; Z88.8 Allergy status to other drugs, medicaments and biological substances; Z88.1 Allergy status to other antibiotic agents; Z88.2 Allergy status to sulfonamides; Z91.013 Allergy to seafood; Z79.899 Other long term (current) drug therapy; Z79.01 Long term (current) use of anticoagulants

== ENCOUNTER 2018-05-04 15:04 | Emergency (ER) | payer OTHER ==
[~2018-05-04] VITALS: Ht 157.5 cm; Wt 100.0 kg
[~2018-05-04 15:04] MED LIST changes: +META1TAB19 PO; +NAPR-50 PO
--- NOTE | 2018-05-04 15:39 | REP ---
CT of the brain without IV contrast: Comparison is 04/07/2018. There is no subdural or epidural hematoma. There is no intracranial hemorrhage otherwise. There is no edema, mass effect or midline shift. The ventricles are normal size and midline. The cortical stripe is unremarkable. The visualized paranasal sinuses and mastoid air cells are clear. Impression: Negative CT study of the brain. There is no interval change. Electronically Signed by Jose Castillo MD 05/04/2018 03:30 P
--- NOTE | 2018-05-04 15:57 | REP ---
Right foot four views : There is no fracture or dislocation. Mineralization and joint spaces are normal. There are no calcifications or foreign bodies. Impression: Negative right foot . Electronically Signed by Jose Castillo MD 05/04/2018 03:49 P
[2018-05-04 16:53] VITALS: BP 142/71
== END 2018-05-04 16:58 | disposition home or self-care (01) ==
LOC: M ED 15:04 → EDBD 15:04 → M ED 16:58
DX: S90.31XA Contusion of right foot, initial encounter (principal); S00.03XA Contusion of scalp, initial encounter; G89.29 Other chronic pain; W19.XXXA Unspecified fall, initial encounter; Y92.099 Unspecified place in other non-institutional residence as the place of occurrence of the external cause; Y93.89 Activity, other specified; Y99.9 Unspecified external cause status; M79.7 Fibromyalgia; F32.9 Major depressive disorder, single episode, unspecified; E78.5 Hyperlipidemia, unspecified; I48.91 Unspecified atrial fibrillation; E66.9 Obesity, unspecified; Z87.891 Personal history of nicotine dependence; Z79.01 Long term (current) use of anticoagulants; Z79.899 Other long term (current) drug therapy; Z88.8 Allergy status to other drugs, medicaments and biological substances; Z88.1 Allergy status to other antibiotic agents; Z91.013 Allergy to seafood

== ENCOUNTER → 2018-05-09 | Outpatient (CLI) | payer OTHER ==
[~2018-05-09] MED LIST changes: +BUPIVACAINE HCL 0.25% 30 ML VIAL As Ordered ONE; +LIDOCAINE 1% SDV INJ 30 ML VIAL As Ordered ONE; +TRIAMCINOLONE ACETONIDE SUSP 40 MG/ML VIAL (J3301) As Ordered ONE
--- NOTE | 2018-05-09 15:20 | REP ---
Partial lumbar spine series: Three views . History: Injection procedure for pain. 44 seconds of fluoroscopy time is reported. Findings: A sequence of three fluoroscopically obtained last image hold procedural spot radiographs of the lumbar spine document needle position and contrast injection associated with injection procedure. Electronically Signed by Dominic Chao MD 05/09/2018 03:12 P
--- NOTE | 2018-05-18 23:21 | ECWPNPC ---
PATIENT NAME: SMITH VIVEORS : 1965 GENDER: FEMALE VISIT DATE: 05/09/2018 DISCHARGE DATE: 05/09/18 1313 VISIT LOCKED DATE TIME: PHYSICIAN: ARELIS MILLER MD RESOURCE: ARELIS MILLER MD REASON FOR APPOINTMENT 1. LEFT L4-L5, L5-S1 RF HISTORY OF PRESENT ILLNESS HISTORY OF PRESENT ILLNESS: PAIN THE PATIENT DESCRIBES THE PAIN... FALL RISK SCREENING: SCREENING : NO FALLS IN THE PAST YEAR. CURRENT MEDICATIONS TAKING TIZANIDINE HCL 2 MG TABLET 1 TABLET NEEDED ORALLY BEFORE BEDTIME MAY REPEAT IN 4HRS MDD2, NOTES: 05/07/18 TAKING METAXALONE 400 MG TABLET 1 TABLETS ORALLY FOR SPASMS AND PAIN BEFORE BEDTIME MAY REPEAT IN 4HRS, NOTES: 05/07/18 TAKING NITROGLYCERIN 0.4 MG TABLET SUBLINGUAL DIRECTED SUBLINGUAL EVERY 5 MIN: MDD 3 TABLETS, NOTES: NONE LATELY TAKING PAROXETINE HCL 30 MG TABLET 1 TABLET IN THE MORNING ORALLY ONCE A DAY, NOTES: 05/08/18 TAKING TRAZODONE HCL 50 MG TABLET 1 TABLET AT BEDTIME NEEDED ORALLY ONCE A DAY, NOTES: NONE LATELY TAKING ABILIFY 10 MG TABLET 1 TABLET ORALLY ONCE A DAY, NOTES: 05/08/18 TAKING GABAPENTIN 100 MG CAPSULE 1 CAPSULE ORALLY THREE TIMES DAILY NEEDED, NOTES: NONE LATLEY TAKING SUCRALFATE 1 GM TABLET 1 TABLET ORALLY TWICE A DAY, NOTES: 05/08/18 TAKING TOPIRAMATE 50 MG TABLET 1 TABLET ORALLY TWICE A DAY, NOTES: 05/08/18 TAKING ELIQUIS 5 MG TABLET 1 TAB(S) ORALLY TWICE DAILY, NOTES: 05/04/18 TAKING PROTONIX 40 MG TABLET DELAYED RELEASE 1 TABLET ORALLY BID, NOTES: 05/08/18 TAKING LISINOPRIL 10 MG TABLET 1 TAB ORALLY DAILY, NOTES: 05/09/18 NOT-TAKING ATORVASTATIN CALCIUM 40 MG TABLET 1 TABLET ORALLY ONCE A DAY NOT-TAKING PREDNISONE 20 MG TABLET 1 TABLET ORALLY ONCE A DAY NOT-TAKING HYDROXYZINE HCL 25 MG TABLET 1 TABLET NEEDED ORALLY ONCE DAILY NEEDED NOT-TAKING DOXYCYCLINE MONOHYDRATE 100 MG CAPSULE 1 CAPSULE ORALLY BID NOT-TAKING CARAFATE 1 GM TABLET 1 TABLET AT BEDTIME ON AN EMPTY STOMACH BEFORE MEALS ORALLY BEFORE BEDTIME NOT-TAKING BLOOD PRESSURE CUFF - MISCELLANEOUS DIRECTED _ DAILY MEDICATION LIST REVIEWED AND RECONCILED WITH THE PATIENT PAST MEDICAL HISTORY FIBROMYALGIA DX 4 YEARS AGO, BEING FOLLOWED AT PAIN CLINIC MIGRAINE HEADACHE STRESS INCONTINENCE DEPRESSION HYPERLIPIDEMIA VITAMIN D DEFICIENCY AFIB GERD INTERMITTENT A FIB STRESS INCONTINENCE, FEMALE CHRONIC PAIN SYNDROME UNSPECIFIED VITAMIN D DEFICIENCY MIGRAINE, UNSPECIFIED WITHOUT MENTION OF INTRACTABLE MIGRAINE WITHOUT MENTION OF STATUS MIGRAINOSUS ALLERGIES ZIPSOR: ALLERGY FLEXERIL: AGGITATION: ALLERGY LYRICA: ANAPHYLAXIS: ALLERGY DICLOFENAC POTASSIUM: AGGITATION (ZIPSOR): ALLERGY BACTRIM: NAUSEA/VOMITING: ALLERGY SHELL FISH: SWELLS, HIVES: ALLERGY CYMBALTA: NAUSEA/VOMITING: SIDE EFFECTS AMITRIPTYLINE: AGGITATION: SIDE EFFECTS GABAPENTIN: HALLUCINATIONS: SIDE EFFECTS TIZANIDINE HCL: HIVES: ALLERGY KETOROLAC TROMETHAMINE: STOMACH PAIN: ALLERGY SURGICAL HISTORY TUBAL LIGATION 1988 DISTAL 4TH FINGER REPAIR SECONDARY TO TRAUMATIC INJURY BENIGN TUMOR REMOVAL RIGHT LEG DENTAL SURGERIES CHOLECYSTECTOMY 05/2014 HYSTERECTOMY STILL HAS 1 OVARY BUT NOT SURE WHICH ONE 2012 ABSCESS R GROIN 2014 FAMILY HISTORY FATHER: , PNEUMONIA, CHF, NEUROPATHY, BLOOD CLOT, DIAGNOSED WITH DIABETES, HEART DISEASE, STROKE MOTHER: , CANCER, DIAGNOSED WITH DIABETES, HYPERTENSION, HEART DISEASE, STROKE, CANCER SIBLINGS: ALIVE, LUPUS, DIABETES SON(S): ALIVE DAUGHTER(S): ALIVE 2 BROTHER(S) , 5 SISTER(S) . 1 SON(S) , 1 DAUGHTER(S) - HEALTHY. SOCIAL HISTORY GENERAL: TOBACCO USE ARE YOU A:FORMER SMOKER HOW LONG HAS IT BEEN SINCE YOU LAST SMOKED?5-10 YEARS VAPORNO E-CIGARETTEYES BMI CARE GOAL FOLLOW-UP ABOVE NORMAL BMI FOLLOW-UPLIFESTYLE EDUCATION REGARDING DIET ALCOHOL SCREENING DID YOU HAVE A DRINK CONTAINING ALCOHOL IN THE PAST YEAR?NO POINTS0 INTERPRETATIONNEGATIVE RECREATIONAL DRUG USE DRUG USE?NO CAFFEINE CAFFEINE USE?YES SEXUAL HX HAD SEX IN THE LAST 12 MONTHS (VAGINAL, ORAL, OR ANAL)?NO HAVE YOU EVER HAD AN STD?NO HIV / HEP-C SCREENING HIV TEST OFFERED TO PATIENT:YES DATE OFFERED:10/26/2017 TEST ACCEPTED:NO REASON:PATIENT DECLINED BROCHURE PROVIDED TO PATIENTNO HEP-C TEST OFFERED TO PATIENT:NO HINDUISM NO ADVENT BELIEFS THAT WOULD IMPACT HEALTH CARE. LANGUAGE NIGERIEN. LEARNING BARRIERS / SPECIAL NEEDS CHANGE FROM LAST VISIT?NO BARRIERS TO LEARNING?NO HEARING IMPAIRED?NO VISION IMPAIRED?YES :CORRECTIVE LENSES COGNITIVELY IMPAIRED?NO READINESS TO LEARN?YES LEARNING PREFERENCES?NO LEARNING CAPABILITIES PRESENT?YES EMOTIONAL BARRIERS?YES SPECIAL DEVICES?NO DOMESTIC VIOLENCE DO YOU FEEL SAFE IN YOUR ENVIRONMENT?YES OCCUPATION: UNEMPLOYED. DIET: REGULAR. EXERCISE: NO REGULAR EXERCISE. MARITAL STATUS: .. OTHERS AT HOME: [id number], BROTHER, NEPHEW AND BOYFRIEND. NEW PATIENT PAIN DIARY FROM 0-10, WHAT LEVEL IS YOUR PAIN TODAY?10 PAIN CLINIC PFS, CLERGY, PUBLIC HEALTH REFERRALS PFS REFERRAL NEEDED?NO CLERGY REFERRAL NEEDED?NO PUBLIC HEALTH REFERRAL NEEDED?NO WAS THE PROVIDER NOTIFIED OF ANY PERTINENT INFO?NO N/A HAS THE PATIENT BEEN EDUCATED REGARDING HIS/HER PLAN OF CARE?YES HAS THE PATIENT BEEN EDUCATED REGARDING PAIN, THE RISK FOR PAIN, THE IMPORTANCE OF EFFECTIVE PAIN MANAGEMENT, AND THE PAIN ASSESSMENT PROCESS?YES ADVANCE DIRECTIVE ADVANCE DIRECTIVE DISCUSSED WITH PATIENT:YES PT HAS NO ADVANCED DIRECTIVES, DECLINES INFORMATION AND ASSISTNACE WITH FORM AT THIS TIME 08/15/17 1025 REVIEWED WITH PT. AD03/15/2018 1508 REVIEWED WITH PT LAS03/27/18 1116 REVIEWED WITH PT BV. HOSPITALIZATION/MAJOR DIAGNOSTIC PROCEDURE ABOVE SURGERIES MRSA RIGHT GROIN 2014, C DIFF 2014 CHEST PAIN 10/20/2016 [facility] 09/2017 REVIEW OF SYSTEMS REVIEWED BY: PROVIDER: . CONSTITUTIONAL: ANY CHANGE IN YOUR MEDICAL CONDITION? NO . CHILLS NO . FEVER NO . INFECTION: DO YOU HAVE NEW INFECTIONS? NO . DO YOU HAVE HISTORY OF MRSA? NO . MUSCULOSKELETAL: ANY NEW PATTERNS OF PAIN OR NUMBNESS? YES, NOW TO BOTTOM OF FEET . GASTROENTEROLOGY: ANY NEW CHANGE IN BOWEL CONTROL? NO . GENITOURINARY: ANY NEW CHANGE IN BLADDER CONTROL? NO . IS THERE A CHANCE YOU COULD BE ? NO . HEMATOLOGY/LYMPH: DO YOU TAKE ANY BLOOD THINNERS? (FOR EXAMPLE- COUMADIN, PLAVIX, AGGRENOX, PLATEL, PRADAXA, OR XARELTO) YES, ELAQUIS 05/04/18 . WHEN WAS YOUR LAST DOSE? DATE: TIME: . NEUROLOGY: HAVE YOU FALLEN IN THE PAST 12 MONTHS? YES, FELL LAST WEEK FROM LOSS OF BALANCE, PT INJURED RIGHT FOOT PT WAS SEEN AT [facility] ER IMAGING DONE, CONTUSIONS DX . ANY NEW EXTREMITY NUMBNESS OR WEAKNESS? YES, BILAT FOOT PAIN . CARDIOLOGY: DO YOU HAVE A PACEMAKER OR DEFIBRILLATOR? NO . RESPIRATORY: HAVE YOU BEEN SICK IN THE PAST WEEK? NO . FEVER NO . FLU LIKE SYMPTOMS? NO . COUGH NO . INTEGUMENTARY: DO YOU HAVE ANY RASHES OR OPEN SORES? NO . ALLERGIC/IMMUNO: ARE YOU ALLERGIC TO IV DYE? NO . ANY NEW ALLERGIES? NO . PSYCHIATRIC: DO YOU HAVE THOUGHTS OF HURTING YOURSELF OR SOMEONE ELSE? NO . ARE YOU ABUSED, NEGLECTED, OR IN AN UNSAFE ENVIRONMENT? NO . ENDOCRINOLOGY: ARE YOU DIABETIC? NO . OTHER: DO YOU NEED ANY PRESCRIPTIONS? NO . IF YES, PLEASE LIST: ____ . ANY NEW PROBLEMS WITH YOUR MEDICATIONS? NO . WHEN DID YOU LAST EAT? 05/08/18 1800 . WHEN DID YOU LAST DRINK? 05/09/18 0400 . WHAT DID YOU LAST DRINK? WATER . NAME OF PERSON DRIVING YOU HOME? NINA . DO YOU HAVE ANY OTHER QUESTIONS OR CONCERNS NO . VITAL SIGNS WT 237.6 LBS, HT 61 IN, BMI 44.89 INDEX, BP 141/95 MM HG, HR 98 /MIN, RR 18 /MIN, TEMP 96.6 F, OXYGEN SAT % 97%, NA INITIALS SC 09:35, REVIEWED BY: EM. ASSESSMENTS SPONDYLOSIS OF LUMBAR REGION WITHOUT MYELOPATHY OR RADICULOPATHY - M47.816 (PRIMARY) SPONDYLOSIS OF LUMBOSACRAL REGION WITHOUT MYELOPATHY OR RADICULOPATHY - M47.817 TREATMENT SPONDYLOSIS OF LUMBOSACRAL REGION WITHOUT MYELOPATHY OR RADICULOPATHY SMC FACET BLOCK (PAIN)[id number] PROCEDURES PN RADIOFREQUENCY PRE PROCEDURE DIAGNOSES 1. LUMBAR SPONDYLOSIS. 2. LUMBOSACRAL SPONDYLOSIS POST PROCEDURE DIAGNOSES 1. LUMBAR SPONDYLOSIS. 2. LUMBOSACRAL SPONDYLOSIS PROCEDURE LEFT L4-L5 AND LEFT L5-S1 LUMBAR FACET RADIOFREQUENCY SURGEON DR. ARELIS MILLER STUD SETTER NONE ANESTHESIA LOCAL PRE PROCEDURE REPORT THE PATIENT HAS HISTORY OF CHRONIC LOW BACK PAIN. I EVALUATE THE PATIENT AND REVIEWED THE CHART. I WENT OVER THE RISKS, ALTERNATIVES, AND BENEFITS ASSOCIATED WITH THIS PROCEDURE. THE PATIENT WOULD LIKE TO PROCEED AND GIVE CONSENT TO PERFORMED THE PROCEDURE. THE PATIENT DENIES UNEXPLAINABLE WEIGHT LOSS, FEVER, CHILLS, OR NEW CHANGES IN URINARY OR BOWEL CONTROL DESCRIPTION OF PROCEDURE THE PATIENT WAS BROUGHT TO THE PROCEDURE ROOM AND PLACED IN THE PRONE POSITION. THE LUMBOSACRAL AREA WAS CLEANED WITH CHLORAPREP SOLUTION AND DRAPED ASEPTICALLY. THE PROCEDURE WAS DONE UNDER STERILE CONDITIONS. I CHECKED LATERALITY AND THE LEVEL WHERE THE PROCEDURE WAS GOING TO BE PERFORMED WITH THE PATIENT AND THE SUPPORTING STAFF AT THE MOMENT OF THE TIME OUT IN THE PROCEDURE ROOM. UNDER FLUOROSCOPIC GUIDANCE, TARGETS WERE SELECTED AT THE INTERSECTION OF THE LEFT TRANSVERSE PROCESS OF L4, L5 AND ALA OF S1 WITH ITS RESPECTIVE SUPERIOR ARTICULAR PROCESS. LIDOCAINE WAS USED TO NUMB THE SKIN AND THE SUBCUTANEOUS TISSUE BELOW IT. RADIOFREQUENCY NEEDLES 22-GAUGE 15 CM LONG WITH 10 MM ACTIVE CURVE TIP WERE ADVANCED UNDER FLUOROSCOPIC GUIDANCE AND FOLLOWING PATIENT FEEDBACK UNTIL THE TARGET AREA WAS REACHED. POSITION OF THE NEEDLES WAS VERIFIED WITH AP AND LATERAL VIEWS. AFTER PROPER POSITION OF THE NEEDLE WAS ACHIEVED, WE WORKED WITH THE LEFT SELECTED MEDIAN BRANCHES OF L3, L4 AND THE DORSAL RAMI OF L5. WE MEASURED THE CORRESPONDING IMPEDANCES, SENSORY STIMULATION AND MOTOR RESPONSES INDICATED IN THE RADIOFREQUENCY WORKSHEET. POSITION OF THE NEEDLES WAS VERIFIED AGAIN WITH AP AND LATERAL VIEWS. LIDOCAINE 1%, 2 ML, WAS INJECTED AT EACH LEVEL. RADIOFREQUENCY WAS DONE AT EACH LEVEL AT 80 DEGREES FOR 90 SECONDS. AFTER RADIOFREQUENCY WAS DONE, THE PATIENT RECEIVED BUPIVACAINE 0.125% 1 CC WITH KENALOG 5 MG AT EACH SITE. THERE WAS NO EVIDENCE OF BLOOD, PARESTHESIA OR CEREBROSPINAL FLUID DURING THE PROCEDURE. THE PATIENT WAS SENT TO THE RECOVERY ROOM. THE PATIENT WAS MOVING THE EXTREMITIES AND DOING WELL. THERE WAS NO COMPLICATION DURING THE PROCEDURE. FLUOROSCOPY TIME WAS 44 SECONDS POST PROCEDURE NOTE THE PATIENT WILL BE SEEN IN A FOLLOW UP IN THE NEXT FEW WEEKS. INSTRUCTIONS WERE GIVEN, QUESTIONS WERE ANSWERED, AND THE PATIENT EXPRESSED UNDERSTANDING AND AGREES WITH THE PLAN. I, ROXY FISHER, DOCUMENTED THE ABOVE INFORMATION ACTING A SCRIBE FOR DR. MILLER. I HAVE REVIEWED THE ABOVE DOCUMENT, WRITTEN BY ROXY SANCHEZIBRaul AND I VERIFY THAT IT IS ACCURATE. PROCEDURE CODES 6045F RADXPS IN END [id number] PXD 88091 DESTROY LUMB/SAC FACET JNT, [place]: [place] [address] DESTROY L/S FACET JNT ADDL, MODIFIERS: LT DISPOSITION & COMMUNICATION FOLLOW UP 3 WEEKS ELECTRONICALLY SIGNED BY ARELIS MILLER MD, MD ON 05/18/2018 AT 06:50 PM EST DISCLAIMER : THIS IS A VISIT SUMMARY EXTRACTED FROM THE [employer] CHART. IT IS NOT A COPY OF THE [employer] PROGRESS NOTE. MTDD
== END ==
LOC: M PAIN 10:15
PROVIDERS: ATTEND Anesthesiology
DX: G89.29 Other chronic pain (principal); M47.816 Spondylosis without myelopathy or radiculopathy, lumbar region; M47.817 Spondylosis without myelopathy or radiculopathy, lumbosacral region; M79.7 Fibromyalgia; G43.909 Migraine, unspecified, not intractable, without status migrainosus; F32.9 Major depressive disorder, single episode, unspecified; K21.9 Gastro-esophageal reflux disease without esophagitis; Z79.01 Long term (current) use of anticoagulants; E66.01 Morbid (severe) obesity due to excess calories; Z68.41 Body mass index [BMI] 40.0-44.9, adult; Z79.899 Other long term (current) drug therapy; Z88.1 Allergy status to other antibiotic agents; Z88.8 Allergy status to other drugs, medicaments and biological substances; Z91.013 Allergy to seafood; Z86.79 Personal history of other diseases of the circulatory system; Z87.891 Personal history of nicotine dependence
CPT/HCPCS: 64635; 64636; J3301

== ENCOUNTER 2018-05-19 15:16 | Emergency (ER) | payer OTHER ==
[~2018-05-19] VITALS: Ht 157.5 cm; Wt 100.0 kg
[~2018-05-19 15:16] MED LIST changes: -BUPIVACAINE HCL 0.25% 30 ML VIAL As Ordered ONE; -LIDOCAINE 1% SDV INJ 30 ML VIAL As Ordered ONE; -TRIAMCINOLONE ACETONIDE SUSP 40 MG/ML VIAL (J3301) As Ordered ONE
[2018-05-19 18:07] VITALS: BP 133/71
--- NOTE | 2018-05-20 04:29 | REP ---
Clinical: Right foot pain. Technique: AP and lateral right foot. Findings: No acute fracture or dislocation. Skeletal structures, joint spaces, and surrounding soft tissues are normal. No subcutaneous emphysema or radiodense foreign body. Impression: Age-appropriate right foot radiographs. Electronically Signed by Fletcher Serna MD 05/20/2018 04:21 A
== END 2018-05-19 18:52 | disposition home or self-care (01) ==
LOC: M ED 15:16
DX: S96.911A Strain of unspecified muscle and tendon at ankle and foot level, right foot, initial encounter (principal); X50.1XXA Overexertion from prolonged static or awkward postures, initial encounter; Y92.098 Other place in other non-institutional residence as the place of occurrence of the external cause; Z88.8 Allergy status to other drugs, medicaments and biological substances; Z88.1 Allergy status to other antibiotic agents; Z88.2 Allergy status to sulfonamides; Z91.013 Allergy to seafood; Z79.899 Other long term (current) drug therapy; Z79.01 Long term (current) use of anticoagulants

== ENCOUNTER 2018-06-06 20:50 | Emergency (ER) | payer OTHER ==
[~2018-06-06] VITALS: Ht 157.5 cm; Wt 110.4 kg
[~2018-06-06 20:50] MED LIST changes: +ARIP1TAB4 PO; +ARIP1TAB6 PO; -ARIP2TAB PO; -ARIP5TA PO; +GUAI100L6 PO; -GUAI100S27 PO; +HYDR-3715 PO; -META1TAB19 PO; +META400T PO; -NAPR-50 PO; +NAPR-837 PO; -NORC1TAB4 PO; +NORC1TAB7 PO; -NORCOTAB PO; +TOPR25TA PO; -TOPR25TA13 PO
--- NOTE | 2018-06-06 22:31 | REP ---
Clinical: Trauma. Technique: AP, lateral, bilateral oblique views left hand . Findings: The osseous structures and joint spaces are intact and normal. There is no evidence for acute fracture or dislocation. Surrounding soft tissues are unremarkable. No subcutaneous emphysema or radiodense foreign body. Impression: No acute fracture or dislocation. Electronically Signed by Fletcher Serna MD 06/06/2018 10:23 P
--- NOTE | 2018-06-06 22:31 | REP ---
Clinical: Trauma. Technique: AP and lateral views of the left humerus. Findings: No acute fracture or dislocation. Skeletal structures, joint spaces, and surrounding soft tissues are normal. No subcutaneous emphysema or radiodense foreign body. Impression: Normal humerus. No acute fracture dislocation. Electronically Signed by Fletcher Serna MD 06/06/2018 10:22 P
[2018-06-06] MEDS ORDERED: ACETAMINOPHEN TAB 650MG DOSE (2X325MG) PO ONE (22:45)
[2018-06-06] MEDS ORDERED: traMADol 50 MG TAB PO ONE (22:45)
[2018-06-06 23:49] VITALS: BP 148/90
== END 2018-06-06 23:55 | disposition home or self-care (01) ==
LOC: M ED 20:50
DX: S43.402A Unspecified sprain of left shoulder joint, initial encounter (principal); W06.XXXA Fall from bed, initial encounter; Y92.098 Other place in other non-institutional residence as the place of occurrence of the external cause; G43.909 Migraine, unspecified, not intractable, without status migrainosus; I48.91 Unspecified atrial fibrillation; F44.5 Conversion disorder with seizures or convulsions; Z86.69 Personal history of other diseases of the nervous system and sense organs; I50.9 Heart failure, unspecified; I11.0 Hypertensive heart disease with heart failure; J44.9 Chronic obstructive pulmonary disease, unspecified; Z86.718 Personal history of other venous thrombosis and embolism; K21.9 Gastro-esophageal reflux disease without esophagitis; G47.33 Obstructive sleep apnea (adult) (pediatric); Z86.19 Personal history of other infectious and parasitic diseases; M54.9 Dorsalgia, unspecified; F32.9 Major depressive disorder, single episode, unspecified; Z79.899 Other long term (current) drug therapy; Z79.01 Long term (current) use of anticoagulants

== ENCOUNTER 2018-06-09 19:15 | Emergency (ER) | payer OTHER ==
[~2018-06-09] VITALS: Ht 157.5 cm; Wt 100.0 kg
[2018-06-09 19:16] VITALS: BP 143/86
[2018-06-09] MEDS ORDERED: ROBA500T PO (21:03)
[2018-06-09] MEDS: NORCO, ANEXSIA 5/325MG TABLET (HYDROcodone/ACETAMINOPHEN) PO ONE (21:10)
[2018-06-09] MEDS: METHOCARBAMOL 500 MG TAB PO ONE (21:10)
== END 2018-06-09 21:19 | disposition home or self-care (01) ==
LOC: M ED 19:15
DX: S16.1XXA Strain of muscle, fascia and tendon at neck level, initial encounter (principal); S43.402A Unspecified sprain of left shoulder joint, initial encounter; X58.XXXA Exposure to other specified factors, initial encounter; Y92.89 Other specified places as the place of occurrence of the external cause; I48.91 Unspecified atrial fibrillation; J44.9 Chronic obstructive pulmonary disease, unspecified; H40.9 Unspecified glaucoma; Z79.01 Long term (current) use of anticoagulants; Z88.1 Allergy status to other antibiotic agents; Z88.8 Allergy status to other drugs, medicaments and biological substances; Z88.2 Allergy status to sulfonamides; Z91.013 Allergy to seafood

== ENCOUNTER 2018-06-21 18:49 | Emergency (ER) | payer OTHER ==
[~2018-06-21] VITALS: Ht 157.5 cm; Wt 100.0 kg
[~2018-06-21 18:49] MED LIST changes: -NITR0.4S14
[2018-06-21 19:47] LABS: BASO % 0.2 % (0.0-1.0); EOS # 0.1 10^3/uL (0.0-0.50); EOS % 0.9 % (0.0-3.0); HEMATOCRIT 39.3 % (36.0-47.0); LYMPH # 1.7 10^3/uL (1.5-4.5); LYMPH % 28.3 % (24.0-44.0); MEAN CORPUSCULAR HEMOGLOBIN 29.5 pg (27.0-33.0); MEAN CORPUSCULAR HGB CONC 33.1 g/dl (32.0-36.5); MEAN CORPUSCULAR VOLUME 89.3 fl (80.0-96.0); MONO # 0.4 10^3/uL (0.0-0.8); MONO % 6.3 % (0.0-5.0); NEUTROPHILS # 3.7 10^3/uL (1.8-7.7); PLATELET COUNT, AUTOMATED 143 10^3/uL (150-450); WHITE BLOOD COUNT 5.8 10^3/uL (4.0-10.0)
[2018-06-21 20:23] LABS: BLOOD UREA NITROGEN 12 MG/DL (7-18); CALCIUM LEVEL 8.5 MG/DL (8.5-10.1); CARBON DIOXIDE LEVEL 29 MEQ/L (21-32); CHLORIDE LEVEL 108 MEQ/L (98-107); CK-MB VALUE MASS < 1.0 NG/ML (<3.6); CPK CREATINE PHOSPHOKINASE 123 U/L (26-192); CREATININE FOR GFR 0.95 MG/DL (0.55-1.30); GLOMERULAR FILTRATION RATE > 60.0 (>51); GLUCOSE, FASTING 129 MG/DL (70-100); MB/CK RELATIVE INDEX 0.81 (< OR =4); POTASSIUM SERUM 3.5 MEQ/L (3.5-5.1); SODIUM LEVEL 144 MEQ/L (136-145); TROPONIN I < 0.02 NG/ML (< 0.10)
[2018-06-21 21:15] VITALS: BP 115/61
[2018-06-21] MEDS ORDERED: KETOROLAC 30 MG/ML VIAL (J1885) IV ONE (21:15)
--- NOTE | 2018-06-21 22:04 | ECGEPIP ---
Stationary ECG Study [facility] - ED Test Date: 2018-06-21 Pat Name: SMITH VIVEROS Department: Room: - Gender: F Director Of Clinical Trials: MARY : 1965 Requested By: NEENA Ramirez Order Number: [id number] Reading MD: Mouna Smith Measurements Intervals [place] Rate: 87 P: 23 SC: 152 QRS: -3 QRSD: 88 T: 30 QT: 349 QTc: 421 Interpretive Statements SINUS RHYTHM LOW QRS VOLTAGE IN PRECORDIAL LEADS NONSPECIFIC T-WAVE ABNORMALITY POSSIBLE OLD INFERIOR INFARCT SIMILAR 04/02/18 Electronically Signed On 06-21-2018 22:04:27 EDT by Mouna Smith
--- NOTE | 2018-06-22 08:21 | REP ---
Oral chest x-ray: Single view. History: Chest pain. Comparison chest x-ray: April 02, 2018. Comparison chest x-ray December 24, 2015 is also reviewed. Findings: Today's G monitoring electrodes overlie the chest. The lungs are symmetrically aerated and free of infiltrate. There is a stable granulomatous calcification in the left base. Heart size is normal. Pulmonary vasculature is not increased. No significant bony abnormality. Impression: No active disease. Old granulomatous nodule left base. Electronically Signed by Dominic Chao MD 06/22/2018 08:14 A
== END 2018-06-21 22:07 | disposition home or self-care (01) ==
LOC: M ED 18:49
DX: F41.8 Other specified anxiety disorders (principal); J44.9 Chronic obstructive pulmonary disease, unspecified; I48.91 Unspecified atrial fibrillation; G89.29 Other chronic pain; F33.9 Major depressive disorder, recurrent, unspecified; Z79.899 Other long term (current) drug therapy; Z79.01 Long term (current) use of anticoagulants; Z88.1 Allergy status to other antibiotic agents; Z88.2 Allergy status to sulfonamides; Z88.8 Allergy status to other drugs, medicaments and biological substances; Z91.013 Allergy to seafood; Z87.891 Personal history of nicotine dependence
CPT/HCPCS: 71045; 80048; 82550; 82553; 85025; 93005; 93041; 94760; 96374; 99285; J1885

== ENCOUNTER → 2018-06-24 | Outpatient (CLI) | payer OTHER ==
[~2018-06-24] MED LIST changes: +ABIL1TAB11 PO; +FAMO20TA PO; +LOPR1TAB6 PO; +METO50TA7 PO; +PANT-23 PO; +TIZA4TAB4 PO; +TRAM50TA2 PO
--- NOTE | 2018-07-08 00:43 | ECWPNPC ---
PATIENT NAME: SMITH VIVEROS : 1965 GENDER: FEMALE VISIT DATE: 06/24/2018 DISCHARGE DATE: 06/24/18 1145 VISIT LOCKED DATE TIME: PHYSICIAN: ARELIS MILLER MD RESOURCE: ARELIS MILLER MD REASON FOR APPOINTMENT 1. NECK PAIN HISTORY OF PRESENT ILLNESS HISTORY OF PRESENT ILLNESS: PAIN THE PATIENT DESCRIBES THE PAIN... 53 YEAR OLD FEMALE PATIENT WITH A HISTORY OF CHRONIC NECK PAIN. THE PATIENT DESCRIBES THE PAIN ACHING, VERY SORE, VERY TENDER, SHARP, AND STABBING WITH A PAIN SCORE OF 6-9/10 DEPENDING ON MEDICATION USE AND PHYSICAL ACTIVITY. THE PATIENT STATES SHE IS HAVING DIFFICULTY SLEEPING. THE PATIENT IS CURRENTLY USING TIZANIDINE AND METAXALONE TO AID IN PAIN RELIEF. PATIENT DENIES UNEXPLAINABLE WEIGHT LOSS, FEVER, CHILLS, NEW CHANGES ON HER URINARY OR BOWEL CONTROL. FALL RISK SCREENING: SCREENING :NO FALLS REPORTED IN THE LAST YEAR CURRENT MEDICATIONS TAKING TIZANIDINE HCL 2 MG TABLET 1 TABLET NEEDED ORALLY BEFORE BEDTIME MAY REPEAT IN 4HRS MDD2, NOTES: RAN OUT, STATES NOT WORKING TAKING METAXALONE 400 MG TABLET 1 TABLETS ORALLY FOR SPASMS AND PAIN BEFORE BEDTIME MAY REPEAT IN 4HRS TAKING NITROGLYCERIN 0.4 MG TABLET SUBLINGUAL DIRECTED SUBLINGUAL EVERY 5 MIN: MDD 3 TABLETS TAKING PAROXETINE HCL 30 MG TABLET 1 TABLET IN THE MORNING ORALLY ONCE A DAY TAKING TRAZODONE HCL 50 MG TABLET 1 TABLET AT BEDTIME NEEDED ORALLY ONCE A DAY TAKING ABILIFY 10 MG TABLET 1 TABLET ORALLY ONCE A DAY TAKING GABAPENTIN 100 MG CAPSULE 1 CAPSULE ORALLY THREE TIMES DAILY NEEDED TAKING SUCRALFATE 1 GM TABLET 1 TABLET ORALLY TWICE A DAY TAKING TOPIRAMATE 50 MG TABLET 1 TABLET ORALLY TWICE A DAY TAKING ELIQUIS 5 MG TABLET 1 TAB(S) ORALLY TWICE DAILY TAKING PROTONIX 40 MG TABLET DELAYED RELEASE 1 TABLET ORALLY BID TAKING LISINOPRIL 10 MG TABLET 1 TAB ORALLY DAILY NOT-TAKING ATORVASTATIN CALCIUM 40 MG TABLET 1 TABLET ORALLY ONCE A DAY NOT-TAKING PREDNISONE 20 MG TABLET 1 TABLET ORALLY ONCE A DAY NOT-TAKING HYDROXYZINE HCL 25 MG TABLET 1 TABLET NEEDED ORALLY ONCE DAILY NEEDED NOT-TAKING DOXYCYCLINE MONOHYDRATE 100 MG CAPSULE 1 CAPSULE ORALLY BID NOT-TAKING CARAFATE 1 GM TABLET 1 TABLET AT BEDTIME ON AN EMPTY STOMACH BEFORE MEALS ORALLY BEFORE BEDTIME NOT-TAKING BLOOD PRESSURE CUFF - MISCELLANEOUS DIRECTED _ DAILY MEDICATION LIST REVIEWED AND RECONCILED WITH THE PATIENT PAST MEDICAL HISTORY FIBROMYALGIA DX 4 YEARS AGO, BEING FOLLOWED AT PAIN CLINIC MIGRAINE HEADACHE STRESS INCONTINENCE DEPRESSION HYPERLIPIDEMIA VITAMIN D DEFICIENCY AFIB GERD INTERMITTENT A FIB STRESS INCONTINENCE, FEMALE CHRONIC PAIN SYNDROME UNSPECIFIED VITAMIN D DEFICIENCY MIGRAINE, UNSPECIFIED WITHOUT MENTION OF INTRACTABLE MIGRAINE WITHOUT MENTION OF STATUS MIGRAINOSUS ALLERGIES ZIPSOR: ALLERGY FLEXERIL: AGGITATION - ALLERGY LYRICA: ANAPHYLAXIS - ALLERGY DICLOFENAC POTASSIUM: AGGITATION (ZIPSOR) - ALLERGY BACTRIM: NAUSEA/VOMITING - ALLERGY SHELL FISH: SWELLS, HIVES - ALLERGY CYMBALTA: NAUSEA/VOMITING - SIDE EFFECTS AMITRIPTYLINE: AGGITATION - SIDE EFFECTS GABAPENTIN: HALLUCINATIONS - SIDE EFFECTS TIZANIDINE HCL: HIVES - ALLERGY KETOROLAC TROMETHAMINE: STOMACH PAIN - ALLERGY SURGICAL HISTORY TUBAL LIGATION 1987 DISTAL 4TH FINGER REPAIR SECONDARY TO TRAUMATIC INJURY BENIGN TUMOR REMOVAL RIGHT LEG DENTAL SURGERIES CHOLECYSTECTOMY 05/2014 HYSTERECTOMY STILL HAS 1 OVARY BUT NOT SURE WHICH ONE 2012 ABSCESS R GROIN 2014 FAMILY HISTORY FATHER: , PNEUMONIA, CHF, NEUROPATHY, BLOOD CLOT, DIAGNOSED WITH DIABETES, HEART DISEASE, STROKE MOTHER: , CANCER, CANCER, HYPERTENSION, HEART DISEASE, STROKE, DIABETES SIBLINGS: ALIVE, LUPUS, DIABETES SON(S): ALIVE DAUGHTER(S): ALIVE 2 BROTHER(S) , 5 SISTER(S) . 1 SON(S) , 1 DAUGHTER(S) - HEALTHY. SOCIAL HISTORY GENERAL: TOBACCO USE ARE YOU A:FORMER SMOKER HOW LONG HAS IT BEEN SINCE YOU LAST SMOKED?5-10 YEARS VAPORNO E-CIGARETTEYES LATEX QUESTIONNAIRE LATEX ALLERGY : HAVE YOU EVER DEVELOPED ANY TYPE OF REACTION AFTER HANDLING LATEX PRODUCTS SUCH RUBBER GLOVES, CONDOMS, DIAPHRAGMS, BALLOONS, SOCKS, OR UNDERWEAR?NO LATEX ALLERGY : HAVE YOU EVER DEVELOPED ANY TYPE OF REACTION DURING OR AFTER DENTAL APPOINTMENT, VAGINAL/RECTAL EXAMINATION, SURGICAL PROCEDURE, OR ANY OTHER EXPOSURE?NO LATEX RISK : HAVE YOU EVER HAD ANY DIFFICULTY BREATHING OR HIVES AFTER EATING OR HANDLING ANY FRUITS, OR VEGETABLES; SUCH KIWI, BANANAS, STONE FRUITS, OR CHESTNUTSNO LATEX RISK : DO YOU HAVE A PREVIOUS PERSONAL HISTORY OF MORE THAN NINE SURGERIES, SPINA BIFIDA, OR REPEATED CATHERTIZATIONS? YES - PLEASE INDICATE : > 9 SURGERIES LATEX RISK : ARE YOU FREQUENTLY EXPOSED TO LATEX PRODUCTS IN YOUR OCCUPATION?NO DATE ASKED : 06/24/2018 BMI CARE GOAL FOLLOW-UP ABOVE NORMAL BMI FOLLOW-UPLIFESTYLE EDUCATION REGARDING DIET ALCOHOL SCREENING DID YOU HAVE A DRINK CONTAINING ALCOHOL IN THE PAST YEAR?NO POINTS0 INTERPRETATIONNEGATIVE RECREATIONAL DRUG USE DRUG USE?NO CAFFEINE CAFFEINE USE?YES SEXUAL HX HAD SEX IN THE LAST 12 MONTHS (VAGINAL, ORAL, OR ANAL)?NO HAVE YOU EVER HAD AN STD?NO HIV / HEP-C SCREENING HIV TEST OFFERED TO PATIENT:YES DATE OFFERED:10/26/2017 TEST ACCEPTED:NO REASON:PATIENT DECLINED BROCHURE PROVIDED TO PATIENTNO HEP-C TEST OFFERED TO PATIENT:NO VOODOO NO CONGREGATIONAL BELIEFS THAT WOULD IMPACT HEALTH CARE. LANGUAGE NAURUAN. LEARNING BARRIERS / SPECIAL NEEDS CHANGE FROM LAST VISIT?NO BARRIERS TO LEARNING?NO HEARING IMPAIRED?NO VISION IMPAIRED?YES :CORRECTIVE LENSES COGNITIVELY IMPAIRED?NO READINESS TO LEARN?YES LEARNING PREFERENCES?NO LEARNING CAPABILITIES PRESENT?YES EMOTIONAL BARRIERS?YES SPECIAL DEVICES?NO DOMESTIC VIOLENCE DO YOU FEEL SAFE IN YOUR ENVIRONMENT?YES OCCUPATION: UNEMPLOYED. DIET: REGULAR. EXERCISE: NO REGULAR EXERCISE. MARITAL STATUS: .. OTHERS AT HOME: [id number], BROTHER, NEPHEW AND BOYFRIEND. NEW PATIENT PAIN DIARY FROM 0-10, WHAT LEVEL IS YOUR PAIN TODAY?10 PAIN CLINIC PFS, CLERGY, PUBLIC HEALTH REFERRALS PFS REFERRAL NEEDED?NO CLERGY REFERRAL NEEDED?NO PUBLIC HEALTH REFERRAL NEEDED?NO WAS THE PROVIDER NOTIFIED OF ANY PERTINENT INFO?NO N/A HAS THE PATIENT BEEN EDUCATED REGARDING HIS/HER PLAN OF CARE?YES HAS THE PATIENT BEEN EDUCATED REGARDING PAIN, THE RISK FOR PAIN, THE IMPORTANCE OF EFFECTIVE PAIN MANAGEMENT, AND THE PAIN ASSESSMENT PROCESS?YES ADVANCE DIRECTIVE ADVANCE DIRECTIVE DISCUSSED WITH PATIENT:YES PT HAS NO ADVANCED DIRECTIVES, DECLINES HCP INFORMATION AND ASSISTANCE WITH FORM AT THIS TIME. 08/15/17 1025 REVIEWED WITH PT. AD03/15/2018 1508 REVIEWED WITH PT LAS03/27/18 1116 REVIEWED WITH PT BVREVIEWED WITH PATIENT 06/24/18 1028 JS. HOSPITALIZATION/MAJOR DIAGNOSTIC PROCEDURE ABOVE SURGERIES MRSA RIGHT GROIN 2015, C DIFF 2015 CHEST PAIN 10/20/2016 [facility] 09/2017 REVIEW OF SYSTEMS REVIEWED BY: PROVIDER: ARELIS MILLER MD . CONSTITUTIONAL: ANY CHANGE IN YOUR MEDICAL CONDITION? NO . CHILLS NO . FEVER NO . INFECTION: DO YOU HAVE NEW INFECTIONS? NO . DO YOU HAVE HISTORY OF MRSA? YES . MUSCULOSKELETAL: ANY NEW PATTERNS OF PAIN OR NUMBNESS? YES, STATES NEW PAIN TO UPPER BACK AND NECK . GASTROENTEROLOGY: ANY NEW CHANGE IN BOWEL CONTROL? NO . GENITOURINARY: ANY NEW CHANGE IN BLADDER CONTROL? NO . IS THERE A CHANCE YOU COULD BE ? NO . HEMATOLOGY/LYMPH: DO YOU TAKE ANY BLOOD THINNERS? (FOR EXAMPLE- COUMADIN, PLAVIX, AGGRENOX, PLATEL, PRADAXA, OR XARELTO) YES, ELIQUIS . WHEN WAS YOUR LAST DOSE? DATE: 06/23/18TIME: 1999 . NEUROLOGY: HAVE YOU FALLEN IN THE PAST 12 MONTHS? YES, STATES FALL RELATED TO BECOMING DIZZY AND LOSING HER BALANCE. STATES SHE FELL ON HER LEFT SIDE, WENT TO ED, IMAGING COMPLETED, ALL NEGATIVE EXCEPT THAT SHE SPRAINED HER SHOULDER . ANY NEW EXTREMITY NUMBNESS OR WEAKNESS? NO . CARDIOLOGY: DO YOU HAVE A PACEMAKER OR DEFIBRILLATOR? NO . RESPIRATORY: HAVE YOU BEEN SICK IN THE PAST WEEK? NO . FEVER NO . FLU LIKE SYMPTOMS? NO . COUGH NO . INTEGUMENTARY: DO YOU HAVE ANY RASHES OR OPEN SORES? NO . ALLERGIC/IMMUNO: ARE YOU ALLERGIC TO IV DYE? NO . ANY NEW ALLERGIES? NO . PSYCHIATRIC: DO YOU HAVE THOUGHTS OF HURTING YOURSELF OR SOMEONE ELSE? NO . ARE YOU ABUSED, NEGLECTED, OR IN AN UNSAFE ENVIRONMENT? NO . ENDOCRINOLOGY: ARE YOU DIABETIC? NO . OTHER: DO YOU NEED ANY PRESCRIPTIONS? YES, STATES SHE NEEDS SOMETHING FOR THE PAIN . IF YES, PLEASE LIST: ____ . ANY NEW PROBLEMS WITH YOUR MEDICATIONS? YES, STATES TIZANIDINE NOT HELPING WITH THE PAIN AT ALL . WHEN DID YOU LAST EAT? ____ . WHEN DID YOU LAST DRINK? ____ . WHAT DID YOU LAST DRINK? ____ . NAME OF PERSON DRIVING YOU HOME? ____ . DO YOU HAVE ANY OTHER QUESTIONS OR CONCERNS NO . VITAL SIGNS WT 246.2 LBS, HT 61 IN, BMI 46.51 INDEX, BP 140/89 MM HG, HR 86 /MIN, RR 16 /MIN, TEMP 98.3 F, OXYGEN SAT % 95%, SAFE IN ENV? (Y/N) YES, REVIEWED BY: NARGIS. EXAMINATION GENERAL EXAMINATION: PATIENT IS ALERT O X 3 AND COOPERATIVE. PRESENCE OF BANDS OF TISSUE AND TRIGGER POINTS WITH RESTRICTION OF MOVEMENT OF THE NECK AND SHOULDERS. ASSESSMENTS MYALGIA, OTHER SITE - M79.18 (PRIMARY) CERVICALGIA - M54.2 TREATMENT MYALGIA, OTHER SITE CLINICAL NOTES: WE DISCUSSED SEVERAL ISSUES WITH MS. VIVEROS'S PAIN MANAGEMENT CASE. DUE TO THE TRIGGER POINTS, BANDS OF TISSUE, AND RESTRICTION OF MOVEMENT, I WOULD LIKE TO MOVE FORWARD WITH A TRIGGER POINT INJECTION AT THIS TIME. WE DISCUSSED THE BENEFITS, RISKS, AND ALTERNATIVES OF THE INJECTION AND THE PATIENT WOULD LIKE TO PROCEED. I WILL INCREASE THE PATIENT'S TIZANIDINE FROM 2MG TO 4MG AT NIGHT. THE PATIENT WILL FOLLOWUP IN 3 WEEKS AFTER THE INJECTION. INSTRUCTIONS WERE GIVEN, QUESTIONS WERE ANSWERED, PATIENT REPORTS UNDERSTANDING AND AGREES WITH THE PLAN. I, GABINO MIXON, DOCUMENTED THE ABOVE INFORMATION ACTING A SCRIBE FOR DR. MILLER. I HAVE REVIEWED THE ABOVE DOCUMENT, WRITTEN BY GABINO SANCHEZIBRaul AND I VERIFY THAT IT IS ACCURATE. . OTHERS REFILL TIZANIDINE HCL TABLET, 4 MG, 1 TABLET NEEDED, ORALLY FOR SPASMS AND PAIN, BEFORE BEDTIME MAY REPEAT IN 5 HRS MDD2, 30 DAY(S), 45, REFILLS 1, NOTES: RAN OUT, STATES NOT WORKING PREVENTIVE MEDICINE PAIN CLINIC TEACHING: PROCEDURE TEACHING REVIEWED INFORMATION ON TRIGGER POINT INJECTION PROCEDURE WITH PATIENT. ALSO REVIEWED PRE-PROCEDURE INSTRUCTIONS. PER DR. MILLER, PATIENT DOES NOT NEED TO HOLD HER ELIQUIS FOR THE TRIGGER POINT INJECTIONS. PATIENT VERBALIZED AN UNDERSTANDING. ALSO REVIEWED OUR ATTENDANCE POLICY AND HAD PATIENT SIGN A NEW COMMITMENT TO CARE FORM. JESSICA ZAMARRIPA 06/24/2018 11:50:06 AM > . PROCEDURE CODES FA211 ESTABILISHED PATIENT [facility] FACILITY CHARGE G8427 CURRENT MEDS W/DOSAGES DOCUMENTED G8730 PAIN ASSESS POS TOOL F/U PLAN DOC DISPOSITION & COMMUNICATION FOLLOW UP 3 WEEKS (REASON: AFTER TPI) ELECTRONICALLY SIGNED BY ARELIS MILLER MD, ON 07/07/2018 AT 06:38 PM EDT DISCLAIMER : THIS IS A VISIT SUMMARY EXTRACTED FROM THE [facility] CHART. IT IS NOT A COPY OF THE [employer] PROGRESS NOTE. MTDD
== END ==
LOC: M PAIN 11:45
PROVIDERS: ATTEND Anesthesiology
DX: M79.18 Myalgia, other site (principal); M54.2 Cervicalgia; G43.909 Migraine, unspecified, not intractable, without status migrainosus; E78.5 Hyperlipidemia, unspecified; K21.9 Gastro-esophageal reflux disease without esophagitis; Z79.01 Long term (current) use of anticoagulants; Z79.899 Other long term (current) drug therapy; E66.01 Morbid (severe) obesity due to excess calories; Z68.42 Body mass index [BMI] 45.0-49.9, adult; Z88.1 Allergy status to other antibiotic agents; Z88.8 Allergy status to other drugs, medicaments and biological substances; Z91.013 Allergy to seafood; Z86.59 Personal history of other mental and behavioral disorders; Z86.79 Personal history of other diseases of the circulatory system; Z87.891 Personal history of nicotine dependence; Z86.14 Personal history of Methicillin resistant Staphylococcus aureus infection

== ENCOUNTER 2018-06-25 12:14 | Emergency (ER) | payer OTHER ==
[~2018-06-25] VITALS: Ht 157.5 cm; Wt 100.0 kg
[~2018-06-25 12:14] MED LIST changes: -ABIL1TAB11 PO; -FAMO20TA PO; -LOPR1TAB6 PO; -METO50TA7 PO; -PANT-23 PO; -TIZA4TAB4 PO; -TRAM50TA2 PO
[2018-06-25] MEDS: NITROGLYCERIN 0.4 MG SUBL TABLET SL PRN ×2 (13:41→13:51)
[2018-06-25 13:45] LABS: BASO % 0.4 % (0.0-1.0); EOS # 0.1 10^3/uL (0.0-0.50); EOS % 1.1 % (0.0-3.0); HEMATOCRIT 45.5 % (36.0-47.0); HEMOGLOBIN 15.1 g/dl (12.0-15.5); LYMPH # 1.9 10^3/uL (1.5-4.5); LYMPH % 35.4 % (24.0-44.0); MEAN CORPUSCULAR HEMOGLOBIN 29.9 pg (27.0-33.0); MEAN CORPUSCULAR HGB CONC 33.2 g/dl (32.0-36.5); MEAN CORPUSCULAR VOLUME 90.1 fl (80.0-96.0); MONO # 0.3 10^3/uL (0.0-0.8); MONO % 6.3 % (0.0-5.0); NEUTROPHILS % 56.4 % (36.0-66.0); PLATELET COUNT, AUTOMATED 173 10^3/uL (150-450); RED BLOOD COUNT 5.05 10^6/uL (4.00-5.40); WHITE BLOOD COUNT 5.4 10^3/uL (4.0-10.0)
[2018-06-25 13:51] VITALS: BP 117/74
--- NOTE | 2018-06-25 13:53 | REP ---
PA and lateral chest: Comparisons are chest CT dated 05/23/2017 and plain film studies dated 06/29/2015 and the 03/23/2018. There is a stable nodule in the left lung inferiorly, unchanged from all prior studies, compatible with granuloma. There are no infiltrates or effusions. Lung thomason otherwise clear. Cardiac size is normal. The gerardo, mediastinum, skeletal structures are unremarkable. Impression: There are no acute cardiopulmonary findings. There is a stable granuloma inferiorly in the left lung. Electronically Signed by Jose Castillo MD 06/25/2018 01:44 P
[2018-06-25] MEDS ORDERED: ONDANSETRON 4MG/2ML VIAL (J2405) IV ONE (14:15)
[2018-06-25 14:18] LABS: ALBUMIN 3.6 GM/DL (3.2-5.2); ALT/SGPT 51 U/L (12-78); BILIRUBIN,DIRECT < 0.1 MG/DL (0.0-0.2); BILIRUBIN,TOTAL 0.4 MG/DL (0.2-1.0); BLOOD UREA NITROGEN 9 MG/DL (7-18); CALCIUM LEVEL 9.2 MG/DL (8.5-10.1); CARBON DIOXIDE LEVEL 27 MEQ/L (21-32); CHLORIDE LEVEL 108 MEQ/L (98-107); CK-MB VALUE MASS < 1.0 NG/ML (<3.6); CPK CREATINE PHOSPHOKINASE 117 U/L (26-192); FREE T4 1.18 NG/DL (0.76-1.46); GLOMERULAR FILTRATION RATE > 60.0 (>51); GLUCOSE, FASTING 88 MG/DL (70-100); LIPASE 146 U/L (73-393); MB/CK RELATIVE INDEX 0.85 (< OR =4); POTASSIUM SERUM 3.9 MEQ/L (3.5-5.1); SODIUM LEVEL 140 MEQ/L (136-145); TOTAL PROTEIN 7.2 GM/DL (6.4-8.2); TROPONIN I < 0.02 NG/ML (< 0.10)
[2018-06-25] MEDS ORDERED: MORPHINE 4 MG/ML 1ML VIAL/SYRINGE (J2270) IV ONE ×2 (14:30→17:45)
[2018-06-25] MEDS ORDERED: ISOVUE-370 76% 100ML VIAL (Q9967) As Ordered ONE (14:51)
--- NOTE | 2018-06-25 15:34 | REP ---
CT of the chest with IV contrast, CT pulmonary angiography protocol: Comparison is 02/22/2018. There are no emboli in the pulmonary trunk or central pulmonary arteries. There are no emboli in the pulmonary lobe or segment branches. There are no infiltrates. There are no pleural effusions. There are calcified granulomas bilaterally, unchanged. There are no other lung masses or nodules. There is no mediastinal or hilar lymph node enlargement. No axillary lymph node enlargement. Thoracic aorta is unremarkable. Cardiac size is normal. The visualized upper abdomen is unchanged. Surgical clips are again noted in the gallbladder fossa. Impression: There are no pulmonary emboli. There are no acute cardiopulmonary findings. There are calcified granulomas again identified bilaterally. Cholecystectomy. Electronically Signed by Jose Castillo MD 06/25/2018 03:26 P
[2018-06-25] MEDS ORDERED: IPRATROPIUM 0.5MG/ALBUTEROL 2.5MG INH SOL UD 3ML (DUONEB)(J7620) NEB ONE (16:15)
[2018-06-25 18:55] LABS: CPK CREATINE PHOSPHOKINASE 89 U/L (26-192); MB/CK RELATIVE INDEX 1.35 (< OR =4); TROPONIN I < 0.02 NG/ML (< 0.10)
[2018-06-25] MEDS ORDERED: DIGOXIN INJ 0.5 MG/2 ML AMP (J1160) IV STA (21:25)
--- NOTE | 2018-06-25 21:38 | ECGEPIP ---
Stationary ECG Study [facility] - ED Test Date: 2018-06-25 Pat Name: SMITH VIVEROS Department: Room: - Gender: F Network Relations Consultant: ELIZABETH : 1965 Requested By: NEENA Ramirez Order Number: [id number] Reading MD: Mouna Smith Measurements Intervals [place] Rate: 89 P: 9 UT: 138 QRS: 0 QRSD: 90 T: 15 QT: 356 QTc: 433 Interpretive Statements SINUS RHYTHM WITH FREQUENT VENTRICULAR PREMATURE COMPLEXES WITH OCCASIONAL SUPRAVENTRICULAR PREMATURE COMPLEXES LOW QRS VOLTAGE IN PRECORDIAL LEADS ABNORMAL RHYTHM ECG INCREASED ECTOPY 06/21/18 Electronically Signed On 06-25-2018 21:38:01 EDT by Mouna Smith
[2018-06-25] MEDS ORDERED: DIGOXIN 0.125 MG TAB PO ONE (23:00)
[2018-06-25] MEDS ORDERED: NS 1,000 ML IV ONE (23:00)
[2018-06-26] MEDS ORDERED: METOPROLOL TART 25 MG TABLET As Ordered ONE (01:36)
[2018-06-26 02:49] VITALS: BP 105/64
--- NOTE | 2018-06-27 21:22 | ECGEPIP ---
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
[2018-06-27] MEDS ORDERED: LOPR1TAB6 PO (22:25)
== END 2018-06-26 03:07 | disposition home or self-care (01) ==
LOC: EDBD 12:14 → M ED 12:14
DX: R07.89 Other chest pain (principal); I48.91 Unspecified atrial fibrillation; I10 Essential (primary) hypertension; E78.5 Hyperlipidemia, unspecified; I25.2 Old myocardial infarction; K52.9 Noninfective gastroenteritis and colitis, unspecified; G43.909 Migraine, unspecified, not intractable, without status migrainosus; J44.9 Chronic obstructive pulmonary disease, unspecified; M54.9 Dorsalgia, unspecified; H40.9 Unspecified glaucoma; G47.33 Obstructive sleep apnea (adult) (pediatric); F41.9 Anxiety disorder, unspecified; G51.0 Bell's palsy; Z82.49 Family history of ischemic heart disease and other diseases of the circulatory system; Z88.8 Allergy status to other drugs, medicaments and biological substances; Z88.1 Allergy status to other antibiotic agents; Z88.2 Allergy status to sulfonamides; Z91.013 Allergy to seafood; Z79.899 Other long term (current) drug therapy
CPT/HCPCS: 71046; 71275; 80048; 80076; 82550; 82553; 83690; 84439; 84443; 85025; 93005; 93041; 94640; 94760; 96374; 96375; 96376; 99285; J1160; J2270; J2405; Q9967

== ENCOUNTER 2018-06-26 16:14 | Emergency (ER) | payer OTHER ==
[~2018-06-26] VITALS: Ht 157.5 cm; Wt 100.0 kg
--- NOTE | 2018-06-26 17:57 | REP ---
Portable chest, 05:31 p.m., single AP view, the patient is upright: Comparison is 06/25/2018. Lung thomason are clear. Cardiac size is upper normal for portable positioning. The gerardo, mediastinum, skeletal structures are unremarkable. The patient's known left lung granuloma is obscured on these portable study. Impression: No acute cardiopulmonary findings. Electronically Signed by Jose Castillo MD 06/26/2018 05:49 P
[2018-06-26 17:58] LABS: BASO % 0.2 % (0.0-1.0); EOS # 0.1 10^3/uL (0.0-0.50); EOS % 1.6 % (0.0-3.0); HEMATOCRIT 39.5 % (36.0-47.0); LYMPH # 1.8 10^3/uL (1.5-4.5); LYMPH % 30.9 % (24.0-44.0); MEAN CORPUSCULAR HEMOGLOBIN 30.5 pg (27.0-33.0); MEAN CORPUSCULAR HGB CONC 32.7 g/dl (32.0-36.5); MEAN CORPUSCULAR VOLUME 93.4 fl (80.0-96.0); MONO # 0.4 10^3/uL (0.0-0.8); MONO % 7.6 % (0.0-5.0); NEUTROPHILS # 3.4 10^3/uL (1.8-7.7); NEUTROPHILS % 59.2 % (36.0-66.0); PLATELET COUNT, AUTOMATED 156 10^3/uL (150-450); RED BLOOD COUNT 4.23 10^6/uL (4.00-5.40); WHITE BLOOD COUNT 5.8 10^3/uL (4.0-10.0)
[2018-06-26 18:06] LABS: HEMOGLOBIN 12.9 g/dl (12.0-15.5)
[2018-06-26 18:30] VITALS: BP 118/56
[2018-06-26 18:33] LABS: ALBUMIN 3.2 GM/DL (3.2-5.2); ALT/SGPT 43 U/L (12-78); BILIRUBIN,DIRECT < 0.1 MG/DL (0.0-0.2); BILIRUBIN,TOTAL 0.2 MG/DL (0.2-1.0); BLOOD UREA NITROGEN 12 MG/DL (7-18); CALCIUM LEVEL 8.1 MG/DL (8.5-10.1); CARBON DIOXIDE LEVEL 29 MEQ/L (21-32); CHLORIDE LEVEL 110 MEQ/L (98-107); CK-MB VALUE MASS < 1.0 NG/ML (<3.6); CPK CREATINE PHOSPHOKINASE 93 U/L (26-192); CREATININE FOR GFR 0.92 MG/DL (0.55-1.30); FREE T4 1.16 NG/DL (0.76-1.46); GLOMERULAR FILTRATION RATE > 60.0 (>51); GLUCOSE, FASTING 86 MG/DL (70-100); LIPASE 139 U/L (73-393); MB/CK RELATIVE INDEX 1.08 (< OR =4); NT-PRO BNP 388 PG/ML (<125); POTASSIUM SERUM 4.1 MEQ/L (3.5-5.1); SODIUM LEVEL 143 MEQ/L (136-145); TOTAL PROTEIN 5.8 GM/DL (6.4-8.2); TROPONIN I < 0.02 NG/ML (< 0.10)
[2018-06-26] MEDS ORDERED: MAALOX 30 ML SUSP *UDC PO ONE (18:45)
[2018-06-26] MEDS ORDERED: ACETAMINOPHEN TAB 650MG DOSE (2X325MG) PO ONE (18:45)
--- NOTE | 2018-06-27 21:37 | ECGEPIP ---
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
[2018-06-27] MEDS ORDERED: LOPR1TAB6 PO (22:25)
== END 2018-06-26 18:48 | disposition home or self-care (01) ==
LOC: M ED 16:14
DX: M94.0 Chondrocostal junction syndrome [Tietze] (principal); M75.52 Bursitis of left shoulder; Z79.01 Long term (current) use of anticoagulants; Z79.899 Other long term (current) drug therapy; Z88.8 Allergy status to other drugs, medicaments and biological substances; Z88.1 Allergy status to other antibiotic agents; Z91.02 Food additives allergy status

== ENCOUNTER 2018-06-27 20:15 | Emergency (ER) | payer OTHER ==
[~2018-06-27] VITALS: Ht 157.5 cm; Wt 111.1 kg
[2018-06-27 20:45] VITALS: BP 138/73
[2018-06-27] MEDS ORDERED: METOPROLOL TART 50 MG TAB PO ONE (20:45)
[2018-06-27 21:32] LABS: BASO % 0.4 % (0.0-1.0); EOS # 0.1 10^3/uL (0.0-0.50); EOS % 1.5 % (0.0-3.0); HEMATOCRIT 38.5 % (36.0-47.0); HEMOGLOBIN 12.8 g/dl (12.0-15.5); LYMPH # 1.9 10^3/uL (1.5-4.5); LYMPH % 35.8 % (24.0-44.0); MEAN CORPUSCULAR HEMOGLOBIN 30.3 pg (27.0-33.0); MEAN CORPUSCULAR HGB CONC 33.2 g/dl (32.0-36.5); MEAN CORPUSCULAR VOLUME 91.2 fl (80.0-96.0); MONO # 0.4 10^3/uL (0.0-0.8); MONO % 7.9 % (0.0-5.0); NEUTROPHILS # 2.8 10^3/uL (1.8-7.7); PLATELET COUNT, AUTOMATED 159 10^3/uL (150-450); RED BLOOD COUNT 4.22 10^6/uL (4.00-5.40); WHITE BLOOD COUNT 5.2 10^3/uL (4.0-10.0)
[2018-06-27 21:49] LABS: INR 1.01; PARTIAL THROMBOPLASTIN TIME 27.4 SECONDS (25.4-37.6); PROTHROMBIN TIME 13.4 SECONDS (12.1-14.4)
--- NOTE | 2018-06-27 21:51 | ECGEPIP ---
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
[2018-06-27 21:54] LABS: BLOOD UREA NITROGEN 9 MG/DL (7-18); CALCIUM LEVEL 8.2 MG/DL (8.5-10.1); CARBON DIOXIDE LEVEL 29 MEQ/L (21-32); CHLORIDE LEVEL 111 MEQ/L (98-107); CK-MB VALUE MASS < 1.0 NG/ML (<3.6); CPK CREATINE PHOSPHOKINASE 95 U/L (26-192); CREATININE FOR GFR 0.87 MG/DL (0.55-1.30); GLOMERULAR FILTRATION RATE > 60.0 (>51); GLUCOSE, FASTING 103 MG/DL (70-100); MB/CK RELATIVE INDEX 1.05 (< OR =4); POTASSIUM SERUM 3.8 MEQ/L (3.5-5.1); SODIUM LEVEL 143 MEQ/L (136-145); TROPONIN I < 0.02 NG/ML (< 0.10)
[2018-06-27] MEDS ORDERED: LOPR1TAB6 PO (22:25)
[2018-06-27 22:38] VITALS: BP 136/72
== END 2018-06-27 22:35 | disposition home or self-care (01) ==
LOC: M ED 20:15
DX: I48.91 Unspecified atrial fibrillation (principal); I10 Essential (primary) hypertension; K21.9 Gastro-esophageal reflux disease without esophagitis; E66.9 Obesity, unspecified; Z79.899 Other long term (current) drug therapy; Z79.01 Long term (current) use of anticoagulants; Z88.1 Allergy status to other antibiotic agents; Z88.2 Allergy status to sulfonamides; Z88.8 Allergy status to other drugs, medicaments and biological substances; Z91.013 Allergy to seafood; Z87.891 Personal history of nicotine dependence

== ENCOUNTER 2018-06-30 23:38 | Inpatient (IN) | payer OTHER ==
[~2018-06-30] VITALS: Ht 157.5 cm; Wt 13.4 kg
[~2018-06-30 23:38] MED LIST changes: +LOPR1TAB6 PO
[2018-07-01] MEDS ORDERED: UNRESOLVED CLARIFICATION ENTRY XX SCH (00:01)
[2018-07-01] MEDS ORDERED: ONDANSETRON 4MG/2ML VIAL (J2405) IV ONE (01:30)
[2018-07-01] MEDS ORDERED: NS 1,000 ML IV ONE ×2 (01:30→06:15)
[2018-07-01 02:42] LABS: BASO % 0.3 % (0.0-1.0); EOS # 0.1 10^3/uL (0.0-0.50); HEMATOCRIT 38.1 % (36.0-47.0); HEMOGLOBIN 12.5 g/dl (12.0-15.5); LYMPH # 2.4 10^3/uL (1.5-4.5); LYMPH % 38.6 % (24.0-44.0); MEAN CORPUSCULAR HEMOGLOBIN 30.2 pg (27.0-33.0); MEAN CORPUSCULAR HGB CONC 32.8 g/dl (32.0-36.5); MONO # 0.5 10^3/uL (0.0-0.8); MONO % 8.7 % (0.0-5.0); NEUTROPHILS # 3.1 10^3/uL (1.8-7.7); NEUTROPHILS % 49.9 % (36.0-66.0); PLATELET COUNT, AUTOMATED 153 10^3/uL (150-450); RED BLOOD COUNT 4.14 10^6/uL (4.00-5.40); WHITE BLOOD COUNT 6.1 10^3/uL (4.0-10.0)
[2018-07-01 03:12] LABS: ALT/SGPT 31 U/L (12-78); BILIRUBIN,DIRECT < 0.1 MG/DL (0.0-0.2); BILIRUBIN,TOTAL 0.3 MG/DL (0.2-1.0); BLOOD UREA NITROGEN 9 MG/DL (7-18); CARBON DIOXIDE LEVEL 27 MEQ/L (21-32); CHLORIDE LEVEL 109 MEQ/L (98-107); CK-MB VALUE MASS < 1.0 NG/ML (<3.6); CPK CREATINE PHOSPHOKINASE 85 U/L (26-192); CREATININE FOR GFR 1.03 MG/DL (0.55-1.30); GLOMERULAR FILTRATION RATE 59.7 (>51); GLUCOSE, FASTING 80 MG/DL (70-100); LIPASE 144 U/L (73-393); MB/CK RELATIVE INDEX 1.17 (< OR =4); SODIUM LEVEL 143 MEQ/L (136-145); TOTAL PROTEIN 6.2 GM/DL (6.4-8.2); TROPONIN I < 0.02 NG/ML (< 0.10)
[2018-07-01] MEDS ORDERED: GI COCKTAIL 50ML BTL(HYOSCYAMINE/MAALOX/LIDOCAINE VISCOUS)(1:3:1) PO ONE (03:30)
--- NOTE | 2018-07-01 04:47 | REPVR ---
EXAM: CT Chest Without Contrast EXAM DATE/TIME: 07/01/2018 3:27 AM CLINICAL HISTORY: 53 years old, female; Chest pain; Additional info: Chest pain, abd pain, n/v/d TECHNIQUE: Imaging protocol: Axial computed tomography images of the chest without intravenous contrast. Coronal and sagittal reformatted images were created and reviewed. Radiation optimization: All CT scans at this facility use at least one of these dose optimization techniques: automated exposure control; mA and/or kV adjustment per patient size (includes targeted exams where dose is matched to clinical indication); or iterative reconstruction. COMPARISON: CT ANGIO CHEST 06/25/2018 2:48 PM FINDINGS: Lungs: Several calcified pulmonary nodules are again seen, including a 10 mm left lower lobe nodule, a 5 mm right upper lobe nodule, and a 6 mm right lower lobe nodule. There is mild peripheral groundglass opacity , which is nonspecific and similar to the prior exam. Pleural space: There are no pleural effusions present. Heart: The heart is normal in size. Aorta: The aorta is normal. No aneurysm. Lymph nodes: No lymphadenopathy is seen. Bones/joints: Mild degenerative endplate changes are noted in the visualized spine. Soft tissues: Unremarkable. Gallbladder and bile ducts: There has been a cholecystectomy. IMPRESSION: Mild nonspecific peripheral groundglass opacity in the bilateral lung bases, unchanged from the recent prior exam. Several calcified granulomata. No further imaging followup required for these. Electronically signed by: Nancy Cifuentes On 07/01/2018 04:47:06 AM
--- NOTE | 2018-07-01 04:59 | REPVR ---
EXAM: CT Abdomen and Pelvis Without Contrast EXAM DATE/TIME: 07/01/2018 3:27 AM CLINICAL HISTORY: 53 years old, female; Abdominal pain; Additional info: Chest pain, abd pain, n/v/d TECHNIQUE: Imaging protocol: Axial computed tomography images of the abdomen and pelvis without contrast. Coronal and sagittal reformatted images were created and reviewed. Radiation optimization: All CT scans at this facility use at least one of these dose optimization techniques: automated exposure control; mA and/or kV adjustment per patient size (includes targeted exams where dose is matched to clinical indication); or iterative reconstruction. COMPARISON: CT ABD PELVIS W/O CONTRAST 10/30/2017 9:47 AM FINDINGS: Lungs: There is a granuloma in the left lung base. Mild peripheral ground glass opacities are seen in both lung bases. Mediastinum: A small hiatal hernia is present. ABDOMEN: Liver: The liver appears mildly heterogeneous, likely due to fatty infiltration. Gallbladder and bile ducts: There has been a cholecystectomy. There is no biliary ductal dilation. Pancreas: The pancreas is normal with no ductal dilation. Spleen: The spleen is normal. Adrenals: The adrenal glands are normal. Kidneys and ureters: The kidneys are normal. There are no ureteral stones or hydronephrosis. Stomach and bowel: Mild diverticulosis is present in the distal colon. There is no dilation or thickening of the colon. The small bowel appears unremarkable. Appendix: A normal appendix is identified. PELVIS: Bladder: The bladder is unremarkable. No stones identified. Reproductive: The uterus is absent. ABDOMEN and PELVIS: Intraperitoneal space: There is no evidence of free intraperitoneal or pelvic fluid. There is mild nonspecific haziness in the mesentery. There is no free intraperitoneal air. Bones/joints: Mild degenerative endplate changes are noted in the visualized spine. No suspicious osseous lesions. No acute fractures or dislocations. Soft tissues: There is a small right inguinal hernia containing only fat. A small fascial defect with a small hernia of fat is seen to the right of midline in the anterior upper abdominal wall. Vasculature: The aorta is normal. No aneurysm. Lymph nodes: No lymphadenopathy is seen. IMPRESSION: 1. No definite acute abnormality identified. 2. Mild nonspecific haziness in the mesentery, slightly more prominent than on the prior exam. Electronically signed by: Nancy Cifuentes On 07/01/2018 04:58:59 AM
[2018-07-01 05:55] LABS: CK-MB VALUE MASS < 1.0 NG/ML (<3.6); CPK CREATINE PHOSPHOKINASE 79 U/L (26-192); MB/CK RELATIVE INDEX 1.26 (< OR =4); TROPONIN I < 0.02 NG/ML (< 0.10)
[2018-07-01] MEDS ORDERED: PANTOPRAZOLE 40MG INJ (PROTONIX) (C9113) IV ONE (06:15)
[2018-07-01] MEDS ORDERED: FAMOTIDINE IV BAG 20 MG in APPROPRIATE DILUENT 1 EA IV ONE (06:15)
[2018-07-01] MEDS ORDERED: ELIQ5TAB PO (06:52)
[2018-07-01] MEDS ORDERED: SUCR1TAB56 PO (06:52)
[2018-07-01] MEDS ORDERED: PANT-23 PO (06:52)
[2018-07-01] MEDS ORDERED: ABIL1TAB11 PO (06:52)
[2018-07-01] MEDS ORDERED: LISI10TA4 PO (06:52)
[2018-07-01] MEDS ORDERED: FAMO20TA PO (06:52)
[2018-07-01] MEDS ORDERED: METO50TA7 PO (06:52)
[2018-07-01] MEDS ORDERED: TIZA4TAB4 PO (06:52)
--- NOTE | 2018-07-01 08:28 | HPEPDOC ---
[facility] Medical History & Physical Date of Admission Jul 01, 2018 Primary Care Physician: A Other Provider PCP - FELICIANO LANGSTON History and Physical CHIEF COMPLAINT: ABD PAIN, N/V/D HISTORY OF PRESENT ILLNESS: 53 yo female presents for 2 days history of abdominal pain, nausea, vomiting, diarrhea. Last episode of nausea and diarrhea was yesterday. States she has a history of CDiff from 2017, and norovirus 8 months ago while in [facility]. She denies any blood in her stool or black stools. Denies and blood or bilious vomiting. PAST MEDICAL HISTORY: 1. HTN 2. a-fib 3. pseudoseizures 4. Arthur's palsy 5. Hx CDiff/norovirus PAST SURGICAL HISTORY: 1. cholecystectomy 2. KADIE SOCIAL HISTORY: History of smoking, quit >20 years ago History of alcohol abuse, last drink >20 years ago ALLERGIES: Please see below. REVIEW OF SYSTEMS: Negative except as per HPI. HOME MEDICATIONS: Please see below. PHYSICAL EXAMINATION: VSS General: NAD, lying comfortably in bed HEENT: NC/AT, EOMI, PERRL Lungs: CTA B/L Heart: +S1S2, RRR Abd: soft, obese, +BS, LLQ tenderness Ext: trace edema LABORATORY DATA: See below. MICROBIOLOGY: Please see below. ASSESSMENT/PLAN: 53 yo female for 2 days history of abdominal pain, nausea, non- bilious non-bloody vomiting, diarrhea. #abd pain, N/V/D - NPO - IV fluids - surgical consultation - pain control - imaging unrevealing #HTN #afib - continue DOAC #pseudoseizures #anxiety/depression #DVT prophylaxis Vital Signs Vital Signs Date Time Temp Pulse Resp B/P (MAP) Pulse Ox O2 Delivery O2 Flow Rate FiO2 07/01/18 06:23 97.9 59 18 93 07/01/18 06:00 86/51 (63) 07/01/18 03:23 Room Air Laboratory Data Labs 24H Laboratory Tests 2 07/01/18 02:36: Immature Granulocyte % (Auto) 0.5, White Blood Count 6.1, Red Blood Count 4.14, Hemoglobin 12.5, Hematocrit 38.1, Mean Corpuscular Volume 92.0, Mean Corpuscular Hemoglobin 30.2, Mean Corpuscular Hemoglobin Concent 32.8, Red Cell Distribution Width 13.1, Platelet Count 153, Neutrophils (%) (Auto) 49.9, Lymphocytes (%) (Auto) 38.6, Monocytes (%) (Auto) 8.7H, Eosinophils (%) (Auto) 2.0, Basophils (%) (Auto) 0.3, Neutrophils # (Auto) 3.1, Lymphocytes # (Auto) 2.4, Monocytes # (Auto) 0.5, Eosinophils # (Auto) 0.1, Basophils # (Auto) 0.0, Nucleated Red Blood Cells % (auto) 0.0, Anion Gap 7L, Glomerular Filtration Rate 59.7, Calcium Level 8.0L, Aspartate Amino Transf (AST/SGOT) 19, Alanine Aminotransferase (ALT/SGPT) 31, Alkaline Phosphatase 106, Total Bilirubin 0.3, Direct Bilirubin < 0.1, Total Creatine Kinase 85, Creatine Kinase MB < 1.0, Creatine Kinase MB Relative Index 1.17, Troponin I < 0.02, Total Protein 6.2L, Albumin 3.0L, Albumin/Globulin Ratio 0.94L, Lipase 144 07/01/18 05:22: Total Creatine Kinase 79, Creatine Kinase MB < 1.0, Creatine Kinase MB Relative Index 1.26, Troponin I < 0.02 CBC/BMP Laboratory Tests 07/01/18 02:36 Red Blood Count 4.14, Mean Corpuscular Volume 92.0, Mean Corpuscular Hemoglobin 30.2, Mean Corpuscular Hemoglobin Concent 32.8, Red Cell Distribution Width 13.1, Neutrophils (%) (Auto) 49.9, Lymphocytes (%) (Auto) 38.6, Monocytes (%) (Auto) 8.7 H, Eosinophils (%) (Auto) 2.0, Basophils (%) (Auto) 0.3, Neutrophils # (Auto) 3.1, Lymphocytes # (Auto) 2.4, Monocytes # (Auto) 0.5, Eosinophils # (Auto) 0.1, Basophils # (Auto) 0.0 Home Medications Scheduled Apixaban (Eliquis) 5 Mg Tablet, 5 MG PO BID Aripiprazole (Abilify) 5 Mg Tablet, 5 MG PO DAILY Famotidine (Famotidine) 20 Mg Tablet, 20 MG PO DAILY Lisinopril (Lisinopril) 10 Mg Tablet, 10 MG PO DAILY Metoprolol Tartrate (Metoprolol Tartrate) 50 Mg Tablet, 50 MG PO BID Pantoprazole Sodium (Pantoprazole Sodium) 40 Mg Tablet.dr, 40 MG PO DAILY Sucralfate (Sucralfate) 1 Gm Tablet, 1 GM PO QID Scheduled PRN Metaxalone (Metaxalone) 400 Mg Tab, 400 MG PO TID PRN for PAIN Nitroglycerin (Nitroglycerin) 0.4 Mg Sub, 0.4 MG SL NITRO PRN for CHEST PAIN Tizanidine HCl (Tizanidine HCl) 4 Mg Tablet, 4 MG PO BID PRN for PAIN Allergies Coded Allergies: pregabalin (Verified Allergy, Severe, Angioedema, 06/27/18) clindamycin (Verified Allergy, Intermediate, vomiting swelling, 06/27/18) diclofenac (Verified Allergy, Intermediate, swelling all over body, 06/27/18) shellfish derived (Verified Allergy, Intermediate, hives, 06/27/18) sorbitan esters (Verified Allergy, Unknown, 06/27/18) from zipsoragitation bupropion (Verified Adverse Reaction, Intermediate, increased tremors, 06/27/18) Wellbutin cyclobenzaprine (Verified Adverse Reaction, Intermediate, agitation, 06/27/18) doxycycline (Verified Adverse Reaction, Mild, vomiting, 06/27/18) sulfamethoxazole (Verified Adverse Reaction, Mild, vomiting, 06/27/18) W/trimethopri from bactrim trimethoprim (Verified Adverse Reaction, Mild, VOMITING, 06/27/18) LUIS DANIEL SMITH MD Jul 01, 2018 08:27
[2018-07-01] MEDS: tiZANidine 4 MG TAB PO PRN ×2 (09:52→21:31)
[2018-07-01] MEDS: APIXABAN 5 MG TAB (ELIQUIS) PO SCH ×2 (09:52→21:31)
[2018-07-01] MEDS: SUCRALFATE 1 GM TAB PO SCH ×4 (09:53→21:31)
[2018-07-01] MEDS: D5W/0.45% SODIUM CHLORIDE 1,000 ML IV SCH (10:30)
[2018-07-01 10:39] VITALS: BP 120/70
[2018-07-01] MEDS: METAXALONE 400 MG 1/2 TAB PO PRN (12:34)
[2018-07-01 14:00] VITALS: BP 99/46
[2018-07-01] MEDS: ONDANSETRON 4 MG TAB (S0181) PO PRN (18:25)
[2018-07-01 22:00] VITALS: BP 124/59
[2018-07-01] MEDS ORDERED: PROMETHAZINE INJ 25 MG/ML VIAL (J2550) IV PRN (23:00)
[2018-07-01] MEDS: ACETAMINOPHEN TAB 650MG DOSE (2X325MG) PO PRN (23:12)
[2018-07-02] MEDS: D5W/0.45% SODIUM CHLORIDE 1,000 ML IV SCH (00:33)
--- NOTE | 2018-07-02 01:09 | ECGEPIP ---
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
--- NOTE | 2018-07-02 01:09 | ECGEPIP ---
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
[2018-07-02 06:00] VITALS: BP 109/62
[2018-07-02 06:50] LABS: HEMATOCRIT 35.2 % (36.0-47.0); HEMOGLOBIN 11.5 g/dl (12.0-15.5); MEAN CORPUSCULAR HEMOGLOBIN 30.7 pg (27.0-33.0); MEAN CORPUSCULAR HGB CONC 32.7 g/dl (32.0-36.5); MEAN CORPUSCULAR VOLUME 93.9 fl (80.0-96.0); PLATELET COUNT, AUTOMATED 133 10^3/uL (150-450); RED BLOOD COUNT 3.75 10^6/uL (4.00-5.40); WHITE BLOOD COUNT 3.9 10^3/uL (4.0-10.0)
[2018-07-02 07:14] LABS: ALBUMIN 2.6 GM/DL (3.2-5.2); ALT/SGPT 35 U/L (12-78); BILIRUBIN,TOTAL 0.3 MG/DL (0.2-1.0); BLOOD UREA NITROGEN 7 MG/DL (7-18); CARBON DIOXIDE LEVEL 27 MEQ/L (21-32); CHLORIDE LEVEL 113 MEQ/L (98-107); CREATININE FOR GFR 0.95 MG/DL (0.55-1.30); GLOMERULAR FILTRATION RATE > 60.0 (>51); GLUCOSE, FASTING 100 MG/DL (70-100); POTASSIUM SERUM 4.2 MEQ/L (3.5-5.1); SODIUM LEVEL 143 MEQ/L (136-145); TOTAL PROTEIN 5.6 GM/DL (6.4-8.2)
[2018-07-02] MEDS ORDERED: FLUBLOK(EGG FREE)(QUAD)INFLUENZA VACC 0.5ML SYRINGE (90682)18YRS&OLDER IM ONE (09:00)
[2018-07-02 10:30] VITALS: BP 119/65
[2018-07-02] MEDS: METOPROLOL TART 50 MG TAB PO SCH ×4 (10:34→21:46)
[2018-07-02] MEDS: ONDANSETRON 4 MG TAB (S0181) PO PRN ×2 (10:34→21:46)
[2018-07-02] MEDS: LISINOPRIL 10 MG TAB PO SCH ×2 (10:34→11:22)
[2018-07-02] MEDS: SUCRALFATE 1 GM TAB PO SCH ×4 (10:35→21:46)
[2018-07-02] MEDS: APIXABAN 5 MG TAB (ELIQUIS) PO SCH ×2 (10:35→21:46)
--- NOTE | 2018-07-02 13:11 | IPNPDOC ---
Text Note Date of Service The patient was seen on 07/02/18. NOTE Subjective: Patient is a 53-year-old female with a PMHx of HTN, A. fib, Pseudoseizures, Arthur's palsy, Hx of C. diff / Norovirus who presented to the ER after experiencing 2 day history of abdominal pain, nausea, vomiting and diarrhea. Patient received a CT abdomen / pelvis in the emergency room that did not reveal any acute findings. . She was admitted to hospital service for further evaluation and treatment. Patient was seen and examined at the bedside. Currently patient notes that she has vomited yesterday evening. Since that point. She is not expressing nausea, vomiting. She wants a child advancing her diet. She reports some abdominal pain diffusely. Denies any discomfort or urination. Still experiences some loose stool. Objective: Vitals (See below) General: Lying in bed, no acute distress, comfortable, AAOx3 HEENT: NC, AT CVS: RRR, +S1S2 Lungs: Fair air entry b/l, -w/r/r Abdomen: Soft, ND, diffusely tender (mild) Extremities: - Edema, - Calf tenderness Assessment and plan: Abdominal pain / Nausea and vomiting / Diarrhea - possibly 2/2 acute gastroenteritis - likely 2/2 viral etiology - Patient appears to have resolution of her nausea and vomiting - Physical with mild abdominal tenderness - No leukocytosis, No elevation in Lipase - Cr appears to be at baseline - CT abd/pelvis 07/01: 1. No definite acute abnormality identified. 2. Mild nonspecific haziness in the mesentery, slightly more prominent than on the prior exam. - CT chest 07/01: Mild nonspecific peripheral groundglass opacity in the bilateral lung bases, unchanged from the recent prior exam. Several calcified granulomata. No further imaging followup required for these. - Will check lactic acid and LDH - c/w supportive care with anti-emetics and pain control - Will advance diet as tolerated HTN - BP well controlled - c/w Metoprolol and Lisinopril A. fib - c/w rate control with Metoprolol - c/w full anticoagulation with Eliquis Hx of Pseudoseizures Anxiety / Depression - c/w Aripiprazole Chronic lower back pain - c/w Metaxalone and Tizanidine GERD - c/w Sucralfate - Will resume Famotidine and Protonix DVT prophylaxis - c/w full anticoagulation with Eliquis VS,Fishbone, I+O VS, Fishbone, I+O Laboratory Tests 07/02/18 06:27 Red Blood Count 3.75 L, Mean Corpuscular Volume 93.9, Mean Corpuscular Hemoglobin 30.7, Mean Corpuscular Hemoglobin Concent 32.7, Red Cell Distribution Width 13.0, Calcium Level 8.0 L, Aspartate Amino Transf (AST/SGOT) 35, Alanine Aminotransferase (ALT/SGPT) 35, Alkaline Phosphatase 90, Total Bilirubin 0.3, Total Protein 5.6 L, Albumin 2.6 L Vital Signs Date Time Temp Pulse Resp B/P (MAP) Pulse Ox O2 Delivery O2 Flow Rate FiO2 07/02/18 10:34 62 119/65 07/02/18 06:00 96.7 19 97 07/01/18 03:23 Room Air I&O- Last 24 Hours up to 6 AM 07/02/18 06:00 Intake Total 3130 ml Output Total 2000 ml Balance 1130 ml PAMELA SCOTT MD Jul 02, 2018 13:11
[2018-07-02] MEDS: FAMOTIDINE 20 MG TAB PO SCH (13:50)
[2018-07-02] MEDS: PANTOPRAZOLE 40MG TAB (PROTONIX) PO SCH (13:50)
[2018-07-02 14:00] VITALS: BP 116/56
[2018-07-02] MEDS: DICYCLOMINE 10 MG CAP PO PRN ×2 (14:47→23:17)
[2018-07-02] MEDS: traMADol 50 MG TAB PO PRN (18:24)
--- NOTE | 2018-07-02 18:34 | CR ---
DATE OF CONSULTATION: 07/02/2018 REQUESTING PROVIDER: Dr. Reinaldo Rivera REASON FOR CONSULTATION: Abdominal pain. HISTORY OF PRESENT ILLNESS: This is a 53-year-old female who presented to the emergency department after having 2 days of abdominal pain with nausea, vomiting, and diarrhea. She has a pertinent past medical history of Clostridium (C) difficile enterocolitis in 2017 and also had norovirus about 8 months while she was in inpatient mental health unit. She denies any blood in her stool or black stools. She has never had a colonoscopy. She states that she is tender, especially in her left lower quadrant. Her nausea has improved somewhat, and she has been able to keep down clear liquids. REVIEW OF SYSTEMS: CONSTITUTIONAL: Denies weight changes, poor appetite, fatigue, malaise, or lethargy. HEENT: Denies changes to visit, headache, epistaxis, sinus pain, odynophagia, or sore throat. CARDIOVASCULAR: Denies chest pain, shortness of breath, paroxysmal nocturnal dyspnea, orthopnea, edema, or palpitations. RESPIRATORY: Denies cough, sputum production, wheezes, hemoptysis, or shortness of breath. GASTROINTESTINAL: Positive for abdominal pain, nausea, vomiting, and diarrhea. Denies obstipation, constipation, hematemesis, difficulty swallowing, hematochezia, melena, or tenesmus. GENITOURINARY: Denies dysuria, incontinence, frequency, urgency, or polyuria. MUSCULOSKELETAL: Denies any joint swelling, decreased range of motion, stiffness, or arthritis. INTEGUMENTARY: Denies new rashes, pruritus, dry lesions, or wounds. NEUROLOGIC: Denies any changes to sight/mouth/hearing/taste, history of seizures, paresthesias, anesthesias. PSYCHIATRIC: Denies any changes to depression, anxiety, anhedonia, paranoia, or episodes of citlali. ENDOCRINE: Denies mood swings, diarrhea, tremor, palpitations, constipation, dry skin, polydipsia. HEMATOLOGIC: Denies any purpura or petechiae. Denies easy bruising or bleeding. LYMPHATIC: Denies any new lumps or bumps anywhere. PAST MEDICAL HISTORY: 1. Hypertension. 2. Atrial fibrillation. 3. Pseudoseizures. 4. Arthur's palsy. 5. History of infectious colitis with Clostridium difficile and norovirus. PAST SURGICAL HISTORY: 1. Cholecystectomy. 2. Total abdominal hysterectomy. SOCIAL HISTORY: Patient denies smoking, alcohol, or drug use. ALLERGIES: Please refer to chart. CURRENT MEDICATIONS: - tizanidine 4 mg by mouth twice a day as needed - Carafate 1 gram by mouth four times a day - Skelaxin 400 mg by mouth three times a day as needed - metoprolol tartrate 50 mg by mouth twice a day - lisinopril 10 mg by mouth daily - aripiprazole 5 mg by mouth daily - Eliquis 5 mg by mouth twice a day - Zofran 4 mg by mouth every 8 hours as needed - Tylenol 650 mg every 4 hours as needed - promethazine 25 mg intravenous (IV) every 8 hours as needed PHYSICAL EXAMINATION: VITAL SIGNS: Temperature 96.7, pulse 54 and irregular, respiratory rate 19, blood pressure 109/62, pulse oximetry 97% on room air. GENERAL: Patient is lying in bed in no acute distress. HEENT: Mucous membranes are moist. Head is atraumatic, normocephalic. Extraocular eye movements are intact. Patient has her own teeth, and dentition is fair. NECK: Supple. No masses. HEART: Irregular rate and rhythm. Not tachycardic. Rate controlled. No murmurs, gallops, or rubs. LUNGS: Clear to auscultation bilaterally. No wheezes, rhonchi, or rales. ABDOMEN: Hyperactive bowel sounds appreciated in all four quadrants. Abdomen is obese but soft. There is pain to palpation in the left lower quadrant; however, there is no guarding, rebound, or rigidity. No peritoneal signs are appreciated. EXTREMITIES: No clubbing, cyanosis, or edema. PSYCHIATRIC: Patient is mildly anxious. Patient answers questions appropriately. Affect is full. NEUROLOGIC: Patient is able to move all four extremities. Extraocular eye movements are intact. Alert and oriented times three. No loss of sensation is appreciated. SKIN: No lesions or rashes are appreciated. She has some healed incisions on her abdomen in the upper quadrants from prior surgery. LABORATORY DATA: CBC: WBC 3.9, hemoglobin 11.5, hematocrit 35.2, platelets 133. Chemistry: Sodium 143, potassium 4.2, chloride 113, carbon dioxide 27, anion gap 3, BUN 7, creatinine 0.95, fasting glucose 100, calcium 8.0. Total bilirubin 0.3, AST 35, ALT 35, alkaline phosphatase 90, total protein 5.6, albumin 2.6. Microbiology: Stool lactoferrin is negative. Gastrointestinal (GI) panel negative by polymerase chain reaction (PCR). IMAGING: Chest CT done 07/01/2018 showed several calcified pulmonary nodules and mild nonspecific peripheral ground-glass opacities in the bilateral lung bases, unchanged from prior exam. CT abdomen and pelvis done 07/01/2018 showed nonspecific haziness in the mesentery, slightly more prominent than on prior exam. No evidence of free intraperitoneal or pelvic fluid. Small right inguinal hernia containing only fat. Small fascial defect with a small hernia set to the right of the midline in the anterior upper abdominal wall. No abnormalities noted in the liver, bile ducts, pancreas, spleen, adrenals, kidneys, ureters, stomach, or bowel. Gallbladder is surgically absent. ASSESSMENT: A 53-year-old female who was admitted with nausea, vomiting, and abdominal pain. Infectious verus inflammatory versus diverticulitis. PLAN: Advance diet as tolerated. Agree with infectious etiology workup. Patient is 53 and has never had a colonoscopy, so this should be scheduled outpatient after the patient is discharged. My faculty preceptor for this patient encounter was physically present during the encounter and was fully available. All aspects of the patient interview, examination, medical decision making process, and medical care plan development were reviewed and approved by the faculty preceptor. The faculty preceptor is aware and concurs with the plan as stated in the body of this note and will attest to such by his/her co-signature.
[2018-07-02] MEDS: tiZANidine 4 MG TAB PO PRN (21:47)
[2018-07-02 22:00] VITALS: BP 135/75
[2018-07-02] MEDS: METAXALONE 400 MG 1/2 TAB PO PRN (23:17)
[2018-07-03] MEDS: traMADol 50 MG TAB PO PRN ×3 (03:27→21:58)
[2018-07-03 08:30] LABS: BLOOD UREA NITROGEN 14 MG/DL (7-18); CALCIUM LEVEL 8.1 MG/DL (8.5-10.1); CARBON DIOXIDE LEVEL 30 MEQ/L (21-32); CHLORIDE LEVEL 109 MEQ/L (98-107); GLOMERULAR FILTRATION RATE > 60.0 (>51); GLUCOSE, FASTING 95 MG/DL (70-100); MAGNESIUM LEVEL 2.1 MG/DL (1.8-2.4); POTASSIUM SERUM 4.2 MEQ/L (3.5-5.1); SODIUM LEVEL 142 MEQ/L (136-145)
[2018-07-03] MEDS: METOPROLOL TART 50 MG TAB PO SCH ×2 (09:00→21:00)
[2018-07-03 09:34] LABS: HEMATOCRIT 35.1 % (36.0-47.0); HEMOGLOBIN 11.8 g/dl (12.0-15.5); MEAN CORPUSCULAR HEMOGLOBIN 30.6 pg (27.0-33.0); MEAN CORPUSCULAR HGB CONC 33.6 g/dl (32.0-36.5); MEAN CORPUSCULAR VOLUME 91.2 fl (80.0-96.0); PLATELET COUNT, AUTOMATED 130 10^3/uL (150-450); RED BLOOD COUNT 3.85 10^6/uL (4.00-5.40)
[2018-07-03] MEDS: PANTOPRAZOLE 40MG TAB (PROTONIX) PO SCH (09:39)
[2018-07-03] MEDS: APIXABAN 5 MG TAB (ELIQUIS) PO SCH ×2 (09:40→21:58)
[2018-07-03] MEDS: FAMOTIDINE 20 MG TAB PO SCH (09:40)
[2018-07-03] MEDS: SUCRALFATE 1 GM TAB PO SCH ×4 (09:40→21:58)
[2018-07-03] MEDS: LISINOPRIL 10 MG TAB PO SCH (09:47)
[2018-07-03] MEDS: ACETAMINOPHEN TAB 650MG DOSE (2X325MG) PO PRN (09:48)
[2018-07-03] MEDS: DICYCLOMINE 10 MG CAP PO PRN ×2 (09:48→19:10)
[2018-07-03 09:49] VITALS: BP 112/67
--- NOTE | 2018-07-03 10:59 | IPNPDOC ---
Text Note Date of Service The patient was seen on 07/03/18. NOTE Subjective: Patient is a 53-year-old female with a PMHx of HTN, A. fib, Pseudoseizures, Arthur's palsy, Hx of C. diff / Norovirus who presented to the ER after experiencing 2 day history of abdominal pain, nausea, vomiting and diarrhea. Patient received a CT abdomen / pelvis in the emergency room that did not reveal any acute findings. She was admitted to hospital service for further evaluation and treatment. Patient was seen and examined at the bedside. Patient has reported that she's had several episodes of vomiting, nursing staff is indicated that they have not witnessed such episodes. Patient reports abdominal pain gets persistent serous still reports diarrhea. Denies chest pain, shortness of breath or palpitations. Denies any urinary discomfort. Objective: Vitals (See below) General: Lying in bed, no acute distress, comfortable, AAOx3 HEENT: NC, AT CVS: RRR, +S1S2 Lungs: Fair air entry b/l, auscultations without any wheezing, rales, rhonchi Abdomen: Soft, ND, chewing conversation patient's abdomen was palpated and no significant tenderness was incited Extremities: No evidence of pitting edema, - Calf tenderness Assessment and plan: Abdominal pain / Nausea and vomiting / Diarrhea - possibly 2/2 acute gastroenteritis - likely 2/2 viral etiology, unlikely 2/2 ischemic colitis - Patient appears to have resolution of her nausea and vomiting - Physical with mild abdominal tenderness - No leukocytosis, No elevation in Lipase - LDH / Lactic acid are within normal limits - Cr appears to be at baseline - CT abd/pelvis 07/01: 1. No definite acute abnormality identified. 2. Mild nonspecific haziness in the mesentery, slightly more prominent than on the prior exam. - CT chest 07/01: Mild nonspecific peripheral ground glass opacity in the bilateral lung bases, unchanged from the recent prior exam. Several calcified granulomata. No further imaging followup required for these. - c/w supportive care with anti-emetics and pain control (will use Tramadol only) - Will return the patient to NPO and c/w gentle IV hydration with D5 1/2NS HTN - BP well controlled - c/w Metoprolol and Lisinopril A. fib - c/w rate control with Metoprolol - c/w full anticoagulation with Eliquis Hx of Pseudoseizures Anxiety / Depression - c/w Aripiprazole Chronic lower back pain - c/w Metaxalone and Tizanidine GERD - c/w Sucralfate, Famotidine and Protonix DVT prophylaxis - c/w full anticoagulation with Eliquis Disposition: - Will get midline for IV access - NPO for 18 hours - c/w IV fluids - Pain control with Tramadol only VS,Fishbone, I+O VS, Fishbone, I+O Laboratory Tests 07/03/18 07:48 Calcium Level 8.1 L 07/03/18 09:14 Red Blood Count 3.85 L, Mean Corpuscular Volume 91.2, Mean Corpuscular Hemoglobin 30.6, Mean Corpuscular Hemoglobin Concent 33.6, Red Cell Distribution Width 13.2 Vital Signs Date Time Temp Pulse Resp B/P (MAP) Pulse Ox O2 Delivery O2 Flow Rate FiO2 07/03/18 09:49 52 112/67 (82) 07/03/18 06:00 97.4 18 91 07/01/18 03:23 Room Air I&O- Last 24 Hours up to 6 AM 07/03/18 06:00 Intake Total 1600 ml Output Total 625 ml Balance 975 ml PAMELA SCOTT MD Jul 03, 2018 10:59
[2018-07-03] MEDS ORDERED: LIDOCAINE 1% MDV 20ML VIAL As Ordered ONE (15:29)
[2018-07-03] MEDS: D5W/0.45% SODIUM CHLORIDE 1,000 ML IV SCH (17:19)
[2018-07-03] MEDS: ONDANSETRON 4MG/2ML VIAL (J2405) IV PRN (17:53)
[2018-07-03] MEDS ORDERED: SODIUM CHLORIDE 0.9% INJ 10 ML SYR IV PRN (20:15)
[2018-07-03 22:00] VITALS: BP 129/79
[2018-07-04] MEDS: DICYCLOMINE 10 MG CAP PO PRN ×2 (01:00→09:15)
[2018-07-04] MEDS: D5W/0.45% SODIUM CHLORIDE 1,000 ML IV SCH ×2 (05:21→16:56)
[2018-07-04] MEDS: tiZANidine 4 MG TAB PO PRN (05:21)
[2018-07-04] MEDS: SODIUM CHLORIDE 0.9% INJ 10 ML SYR IV SCH ×2 (05:22→17:13)
[2018-07-04 06:00] VITALS: BP 127/60
[2018-07-04] MEDS: METOPROLOL TART 50 MG TAB PO SCH ×2 (09:15→21:45)
[2018-07-04] MEDS: PANTOPRAZOLE 40MG TAB (PROTONIX) PO SCH (09:16)
[2018-07-04] MEDS: LISINOPRIL 10 MG TAB PO SCH (09:16)
[2018-07-04] MEDS: SUCRALFATE 1 GM TAB PO SCH ×4 (09:16→21:46)
[2018-07-04] MEDS: APIXABAN 5 MG TAB (ELIQUIS) PO SCH ×2 (09:17→21:46)
[2018-07-04] MEDS: FAMOTIDINE 20 MG TAB PO SCH (09:18)
[2018-07-04] MEDS: traMADol 50 MG TAB PO PRN ×2 (09:18→21:46)
--- NOTE | 2018-07-04 11:00 | REP ---
MIDLINE INSERTION WITH ULTRASOUND GUIDANCE: REASON FOR EXAM: Poor IV access PROCEDURE: Midline catheter insertion under ultrasound guidance. This procedure was performed by BRENDON Plasencia, under the direct supervision of Dr. Martinez. The risks and benefits of the procedure were explained to the patient and informed consent was obtained prior to the procedure. The right basilic vein was localized using ultrasound guidance. The skin was prepped and draped in a sterile fashion. 1% lidocaine was used as a local anesthetic. Using ultrasound guidance the right basilic vein was cannulated and a 0.018 guidewire was inserted. The needle was removed and a 5.5 Sammarinese dilator and a Peel-Away sheath was inserted over the guidewire. A 5.5 Sammarinese dual lumen catheter was cut to the length of 9 cm. The dilator was removed and the catheter was inserted over the guidewire. The Peel-Away sheath was removed and the catheter was flushed with heparinized saline as per hospital protocol. The catheter was affixed to the skin and a sterile dressing was applied. The patient tolerated the procedure well and there were no immediate complications. Reviewed by BRENDON Kraus 07/04/2018 08:22 A Electronically Signed by Jose Martinez MD 07/04/2018 10:50 A
--- NOTE | 2018-07-04 11:19 | IPNPDOC ---
Text Note Date of Service The patient was seen on 07/04/18. NOTE Subjective: Patient is a 53-year-old female with a PMHx of HTN, A. fib, Pseudoseizures, Arthur's palsy, Hx of C. diff / Norovirus who presented to the ER after experiencing 2 day history of abdominal pain, nausea, vomiting and diarrhea. Patient received a CT abdomen / pelvis in the emergency room that did not reveal any acute findings. She was admitted to hospital service for further evaluation and treatment. Patient was seen and examined at the bedside. Patient is not experiencing any nausea or vomiting, has not been witnessed by any nursing staff. Patient still reports abdominal pain. Patient denies chest pain, short of breath or palpitations. Objective: Vitals (See below) General: Lying in bed, no acute distress, comfortable, AAOx3 HEENT: NC, AT CVS: RRR, +S1S2 Lungs: Fair air entry b/l, auscultations without any wheezing, rales, rhonchi Abdomen: Soft, ND, again during conversation patient does not have any abdominal tenderness, however, after he's done speaking she reports abdominal tenderness Extremities: No evidence of pitting edema, - Calf tenderness Assessment and plan: Abdominal pain / Nausea and vomiting / Diarrhea - possibly 2/2 acute gastroenteritis - likely 2/2 viral etiology, unlikely 2/2 ischemic colitis - Physical with mild abdominal tenderness - No leukocytosis, No elevation in Lipase - LDH / Lactic acid are within normal limits - Cr appears to be at baseline - Stool Lactoferrin negative; GI panel negative - CT abd/pelvis 07/01: 1. No definite acute abnormality identified. 2. Mild nonspecific haziness in the mesentery, slightly more prominent than on the prior exam. - CT chest 07/01: Mild nonspecific peripheral ground glass opacity in the bilateral lung bases, unchanged from the recent prior exam. Several calcified granulomata. No further imaging followup required for these. - c/w supportive care with anti-emetics and pain control (will use Tramadol only); will start Loperamide - Diet has been readvanced to clears only and will c/w gentle IV hydration with D5 1/2NS HTN - BP well controlled - c/w Metoprolol and Lisinopril A. fib - c/w rate control with Metoprolol - c/w full anticoagulation with Eliquis Hx of Pseudoseizures Anxiety / Depression - c/w Aripiprazole Chronic lower back pain - c/w Metaxalone and Tizanidine GERD - c/w Sucralfate, Famotidine and Protonix DVT prophylaxis - c/w full anticoagulation with Eliquis Disposition: - c/w clear liquid diet and IV fluids - Pain control with Tramadol only A-FIB/CHADSVASC A-FIB History Current/History of A-Fib/PAF?: No VS,Fishbone, I+O VS, Fishbone, I+O Vital Signs Date Time Temp Pulse Resp B/P (MAP) Pulse Ox O2 Delivery O2 Flow Rate FiO2 07/04/18 09:58 16 07/04/18 09:16 127/60 07/04/18 09:15 57 07/04/18 06:00 97.3 92 07/01/18 03:23 Room Air I&O- Last 24 Hours up to 6 AM 07/04/18 06:00 Intake Total 650 ml Output Total 1375 ml Balance -725 ml PAMELA SCOTT MD Jul 04, 2018 11:19
[2018-07-04] MEDS ORDERED: LOPERAMIDE 2 MG CAP PO PRN (11:30)
[2018-07-04] MEDS: ONDANSETRON 4MG/2ML VIAL (J2405) IV PRN (12:16)
[2018-07-04 13:09] LABS: BASO % 0.4 % (0.0-1.0); EOS # 0.1 10^3/uL (0.0-0.50); EOS % 1.9 % (0.0-3.0); HEMATOCRIT 37.8 % (36.0-47.0); HEMOGLOBIN 12.4 g/dl (12.0-15.5); LYMPH # 1.6 10^3/uL (1.5-4.5); LYMPH % 34.3 % (24.0-44.0); MEAN CORPUSCULAR HEMOGLOBIN 30.4 pg (27.0-33.0); MEAN CORPUSCULAR HGB CONC 32.8 g/dl (32.0-36.5); MEAN CORPUSCULAR VOLUME 92.6 fl (80.0-96.0); MONO # 0.4 10^3/uL (0.0-0.8); MONO % 7.6 % (0.0-5.0); NEUTROPHILS # 2.6 10^3/uL (1.8-7.7); NEUTROPHILS % 55.6 % (36.0-66.0); PLATELET COUNT, AUTOMATED 141 10^3/uL (150-450); RED BLOOD COUNT 4.08 10^6/uL (4.00-5.40); WHITE BLOOD COUNT 4.6 10^3/uL (4.0-10.0)
[2018-07-04 13:29] LABS: BLOOD UREA NITROGEN 7 MG/DL (7-18); CALCIUM LEVEL 8.3 MG/DL (8.5-10.1); CARBON DIOXIDE LEVEL 26 MEQ/L (21-32); CHLORIDE LEVEL 111 MEQ/L (98-107); CREATININE FOR GFR 0.99 MG/DL (0.55-1.30); GLOMERULAR FILTRATION RATE > 60.0 (>51); GLUCOSE, FASTING 89 MG/DL (70-100); MAGNESIUM LEVEL 1.9 MG/DL (1.8-2.4); POTASSIUM SERUM 3.9 MEQ/L (3.5-5.1); SODIUM LEVEL 141 MEQ/L (136-145)
[2018-07-04 14:00] VITALS: BP 128/64
[2018-07-04 22:00] VITALS: BP 116/54
[2018-07-05 06:00] VITALS: BP 120/60
[2018-07-05 06:30] LABS: HEMATOCRIT 35.8 % (36.0-47.0); HEMOGLOBIN 11.8 g/dl (12.0-15.5); MEAN CORPUSCULAR HEMOGLOBIN 30.2 pg (27.0-33.0); MEAN CORPUSCULAR VOLUME 91.6 fl (80.0-96.0); PLATELET COUNT, AUTOMATED 141 10^3/uL (150-450); RED BLOOD COUNT 3.91 10^6/uL (4.00-5.40); WHITE BLOOD COUNT 4.7 10^3/uL (4.0-10.0)
[2018-07-05] MEDS: SODIUM CHLORIDE 0.9% INJ 10 ML SYR IV SCH (06:37)
[2018-07-05 07:00] LABS: BLOOD UREA NITROGEN 5 MG/DL (7-18); CARBON DIOXIDE LEVEL 26 MEQ/L (21-32); CHLORIDE LEVEL 112 MEQ/L (98-107); CREATININE FOR GFR 1.01 MG/DL (0.55-1.30); GLOMERULAR FILTRATION RATE > 60.0 (>51); GLUCOSE, FASTING 94 MG/DL (70-100); POTASSIUM SERUM 3.8 MEQ/L (3.5-5.1); SODIUM LEVEL 144 MEQ/L (136-145)
[2018-07-05] MEDS ORDERED: TRAM50TA2 PO (08:20)
[2018-07-05 08:24] VITALS: BP 120/60
[2018-07-05] MEDS: LISINOPRIL 10 MG TAB PO SCH (08:24)
[2018-07-05] MEDS: PANTOPRAZOLE 40MG TAB (PROTONIX) PO SCH (08:24)
[2018-07-05] MEDS: APIXABAN 5 MG TAB (ELIQUIS) PO SCH (08:24)
[2018-07-05] MEDS: FAMOTIDINE 20 MG TAB PO SCH (08:24)
[2018-07-05] MEDS: METOPROLOL TART 50 MG TAB PO SCH (08:24)
[2018-07-05] MEDS: SUCRALFATE 1 GM TAB PO SCH (08:24)
--- NOTE | 2018-07-05 10:15 | DS.PDOC ---
Discharge Summary General Date of Admission Jul 01, 2018 at 08:13 Date of Discharge 07/05/2018 Discharge Summary PROCEDURES PERFORMED DURING STAY: [None]. ADMITTING DIAGNOSES / DISCHARGE DIAGNOSES: Abdominal pain / Nausea and vomiting / Diarrhea - possibly 2/2 acute gastroenteritis - likely 2/2 viral etiology, unlikely 2/2 ischemic colitis HTN A. fib Hx of Pseudoseizures Anxiety / Depression Chronic lower back pain GERD DVT prophylaxis COMPLICATIONS/CHIEF COMPLAINT: Abdominal Pain HISTORY OF PRESENT ILLNESS: Patient is a 53-year-old female with a PMHx of HTN, A. fib, Pseudoseizures, Arthur's palsy, Hx of C. diff / Norovirus who presented to the ER after experiencing 2 day history of abdominal pain, nausea, vomiting and diarrhea. Patient received a CT abdomen / pelvis in the emergency room that did not reveal any acute findings. She was admitted to hospital service for further evaluation and treatment. HOSPITAL COURSE: Abdominal pain / Nausea and vomiting / Diarrhea - possibly 2/2 acute gastroenteritis - likely 2/2 viral etiology, unlikely 2/2 ischemic colitis - No nausea or vomiting or abdominal pain noted - Physical with no abdominal tenderness - No leukocytosis, No elevation in Lipase - LDH / Lactic acid are within normal limits - Cr appears to be at baseline - Stool Lactoferrin negative; GI panel negative - CT abd/pelvis 07/01: 1. No definite acute abnormality identified. 2. Mild nonspecific haziness in the mesentery, slightly more prominent than on the prior exam. - CT chest 07/01: Mild nonspecific peripheral ground glass opacity in the bilateral lung bases, unchanged from the recent prior exam. Several calcified granulomata. No further imaging followup required for these. - c/w supportive care with anti-emetics and pain control (will use Tramadol only); s/p Loperamide - Will DC IV fluids; diet has been advanced and has been tolerating - Surgery on consult; appreciate input - Will have outpatient f/u with Dr. Nam within 7 days. HTN - BP well controlled - c/w Metoprolol and Lisinopril A. fib - c/w rate control with Metoprolol - c/w full anticoagulation with Eliquis Hx of Pseudoseizures Anxiety / Depression - c/w Aripiprazole Chronic lower back pain - c/w Metaxalone and Tizanidine GERD - c/w Sucralfate, Famotidine and Protonix DVT prophylaxis - c/w full anticoagulation with Eliquis DISCHARGE MEDICATIONS: Please see below. ALLERGIES: Please see below. PHYSICAL EXAMINATION ON DISCHARGE: Vitals (See below) General: Lying in bed, no acute distress, comfortable, AAOx3 HEENT: NC, AT CVS: RRR, +S1S2 Lungs: Fair air entry b/l, does not appear to be any evidence of rhonchi, rales or wheezing on auscultation Abdomen: Soft, ND, physical does not reveal any tenderness Extremities: No evidence of pitting edema, - Calf tenderness LABORATORY DATA: Please see below. ACTIVITY: [As tolerated]. DISCHARGE PLAN: Follow up with Dr. Nam within 7 days Remain compliant with treatment plan and medications Return to the ER if you experience any problems DISPOSITION: Home DISCHARGE CONDITION: [Stable]. TIME SPENT ON DISCHARGE: Greater than [35] minutes. Vital Signs/I&Os Vital Signs Date Time Temp Pulse Resp B/P (MAP) Pulse Ox O2 Delivery O2 Flow Rate FiO2 07/05/18 08:24 120/60 07/05/18 06:00 97.8 50 20 94 07/01/18 03:23 Room Air I&O- Last 24 Hours up to 6 AM 07/05/18 06:00 Intake Total 2100 ml Output Total 450 ml Balance 1650 ml Laboratory Data Labs 24H Laboratory Tests 2 07/04/18 12:58: Immature Granulocyte % (Auto) 0.2, White Blood Count 4.6, Red Blood Count 4.08, Hemoglobin 12.4, Hematocrit 37.8, Mean Corpuscular Volume 92.6, Mean Corpuscular Hemoglobin 30.4, Mean Corpuscular Hemoglobin Concent 32.8, Red Cell Distribution Width 13.2, Platelet Count 141L, Neutrophils (%) (Auto) 55.6, Lymphocytes (%) (Auto) 34.3, Monocytes (%) (Auto) 7.6H, Eosinophils (%) (Auto) 1.9, Basophils (%) (Auto) 0.4, Neutrophils # (Auto) 2.6, Lymphocytes # (Auto) 1.6, Monocytes # (Auto) 0.4, Eosinophils # (Auto) 0.1, Basophils # (Auto) 0.0, Nucleated Red Blood Cells % (auto) 0.0, Anion Gap 4L, Glomerular Filtration Rate > 60.0, Blood Urea Nitrogen 7, Creatinine 0.99, Sodium Level 141, Potassium Level 3.9, Chloride Level 111H, Carbon Dioxide Level 26, Calcium Level 8.3L, Magnesium Level 1.9 07/05/18 06:19: Nucleated Red Blood Cells % (auto) 0.0, Anion Gap 6L, Glomerular Filtration Rate > 60.0, Blood Urea Nitrogen 5L, Creatinine 1.01, Sodium Level 144, Potassium Level 3.8, Chloride Level 112H, Carbon Dioxide Level 26, Calcium Level 8.0L, Magnesium Level 2.0 CBC/BMP Laboratory Tests 07/04/18 12:58 Red Blood Count 4.08, Mean Corpuscular Volume 92.6, Mean Corpuscular Hemoglobin 30.4, Mean Corpuscular Hemoglobin Concent 32.8, Red Cell Distribution Width 13.2, Neutrophils (%) (Auto) 55.6, Lymphocytes (%) (Auto) 34.3, Monocytes (%) (Auto) 7.6 H, Eosinophils (%) (Auto) 1.9, Basophils (%) (Auto) 0.4, Neutrophils # (Auto) 2.6, Lymphocytes # (Auto) 1.6, Monocytes # (Auto) 0.4, Eosinophils # (Auto) 0.1, Basophils # (Auto) 0.0, Calcium Level 8.3 L 07/05/18 06:19 Red Blood Count 3.91 L, Mean Corpuscular Volume 91.6, Mean Corpuscular Hemoglobin 30.2, Mean Corpuscular Hemoglobin Concent 33.0, Red Cell Distribution Width 13.3, Calcium Level 8.0 L Microbiology Microbiology 07/02/18 Stool Lactoferrin - Final, Complete 07/02/18 Gastrointestinal Tract Panel (PCR) - Final, Complete Discharge Medications Scheduled Apixaban (Eliquis) 5 Mg Tablet, 5 MG PO BID, (Reported) Aripiprazole (Abilify) 5 Mg Tablet, 5 MG PO DAILY, (Reported) Famotidine (Famotidine) 20 Mg Tablet, 20 MG PO DAILY, (Reported) Lisinopril (Lisinopril) 10 Mg Tablet, 10 MG PO DAILY, (Reported) Metoprolol Tartrate (Metoprolol Tartrate) 50 Mg Tablet, 50 MG PO BID, (Reported) Pantoprazole Sodium (Pantoprazole Sodium) 40 Mg Tablet.dr, 40 MG PO DAILY, (Reported) Sucralfate (Sucralfate) 1 Gm Tablet, 1 GM PO QID, (Reported) Scheduled PRN Metaxalone (Metaxalone) 400 Mg Tab, 400 MG PO TID PRN for PAIN, (Reported) Nitroglycerin (Nitroglycerin) 0.4 Mg Sub, 0.4 MG SL NITRO PRN for CHEST PAIN, (Reported) Tizanidine HCl (Tizanidine HCl) 4 Mg Tablet, 4 MG PO BID PRN for PAIN, (Reported) Tramadol HCl (Tramadol HCl) 50 Mg Tablet, 50 MG PO Q8HP PRN for MODERATE PAIN (PS 5-7) Allergies Coded Allergies: pregabalin (Verified Allergy, Severe, Angioedema, 06/27/18) clindamycin (Verified Allergy, Intermediate, vomiting swelling, 06/27/18) diclofenac (Verified Allergy, Intermediate, swelling all over body, 06/27/18) shellfish derived (Verified Allergy, Intermediate, hives, 06/27/18) sorbitan esters (Verified Allergy, Unknown, 06/27/18) from zipsoragitation bupropion (Verified Adverse Reaction, Intermediate, increased tremors, 06/27/18) Wellbutin cyclobenzaprine (Verified Adverse Reaction, Intermediate, agitation, 06/27/18) doxycycline (Verified Adverse Reaction, Mild, vomiting, 06/27/18) sulfamethoxazole (Verified Adverse Reaction, Mild, vomiting, 06/27/18) W/trimethopri from bactrim trimethoprim (Verified Adverse Reaction, Mild, VOMITING, 06/27/18) PAMELA SCOTT MD Jul 05, 2018 10:15
== END 2018-07-05 10:31 | disposition home or self-care (01) | DRG 249 ==
LOC: M ED 23:38 → M ED INP 07-01 08:13 → M MS5PR 07-01 10:25
PROVIDERS: ADMIT Internal Medicine; ATTEND Internal Medicine
PROC: 05HB33Z Insertion of Infusion Device into Right Basilic Vein, Percutaneous Approach (ICD-10-PCS; principal; 2018-07-03)
DX: A08.4 Viral intestinal infection, unspecified (principal); I48.91 Unspecified atrial fibrillation; I10 Essential (primary) hypertension; F41.9 Anxiety disorder, unspecified; F32.9 Major depressive disorder, single episode, unspecified; Z79.01 Long term (current) use of anticoagulants; Z79.899 Other long term (current) drug therapy; Z88.1 Allergy status to other antibiotic agents; Z88.2 Allergy status to sulfonamides; Z88.8 Allergy status to other drugs, medicaments and biological substances; Z91.013 Allergy to seafood; M54.5 Low back pain; K21.9 Gastro-esophageal reflux disease without esophagitis; Z90.49 Acquired absence of other specified parts of digestive tract; Z90.710 Acquired absence of both cervix and uterus

== ENCOUNTER 2018-07-16 20:01 | Emergency (ER) | payer OTHER ==
[~2018-07-16] VITALS: Ht 157.5 cm; Wt 100.0 kg
[~2018-07-16 20:01] MED LIST changes: +ABIL1TAB11 PO; +FAMO20TA PO; +METO50TA7 PO; +PANT-23 PO; +TIZA4TAB4 PO; +TRAM50TA2 PO
[2018-07-16] MEDS ORDERED: ONDANSETRON 4MG/2ML VIAL (J2405) IV ONE (22:00)
[2018-07-16] MEDS ORDERED: ONDANSETRON 4 MG ORAL DISINTEGRATING TAB (Q0162 PER 1MG) PO ONE (22:15)
[2018-07-16 22:39] LABS: BASO % 0.5 % (0.0-1.0); EOS # 0.1 10^3/uL (0.0-0.50); HEMATOCRIT 47.4 % (36.0-47.0); HEMOGLOBIN 15.8 g/dl (12.0-15.5); LYMPH # 2.6 10^3/uL (1.5-4.5); LYMPH % 44.9 % (24.0-44.0); MEAN CORPUSCULAR HEMOGLOBIN 30.4 pg (27.0-33.0); MEAN CORPUSCULAR HGB CONC 33.3 g/dl (32.0-36.5); MEAN CORPUSCULAR VOLUME 91.3 fl (80.0-96.0); MONO # 0.6 10^3/uL (0.0-0.8); MONO % 9.6 % (0.0-5.0); NEUTROPHILS # 2.5 10^3/uL (1.8-7.7); NEUTROPHILS % 43.7 % (36.0-66.0); PLATELET COUNT, AUTOMATED 204 10^3/uL (150-450); RED BLOOD COUNT 5.19 10^6/uL (4.00-5.40); WHITE BLOOD COUNT 5.7 10^3/uL (4.0-10.0)
[2018-07-16 22:54] LABS: INR 0.94; PROTHROMBIN TIME 12.7 SECONDS (12.1-14.4)
[2018-07-16 23:07] LABS: ALBUMIN 3.9 GM/DL (3.2-5.2); ALT/SGPT 33 U/L (12-78); BILIRUBIN,DIRECT 0.1 MG/DL (0.0-0.2); BILIRUBIN,TOTAL 0.4 MG/DL (0.2-1.0); BLOOD UREA NITROGEN 17 MG/DL (7-18); CALCIUM LEVEL 9.1 MG/DL (8.5-10.1); CARBON DIOXIDE LEVEL 29 MEQ/L (21-32); CHLORIDE LEVEL 105 MEQ/L (98-107); GLOMERULAR FILTRATION RATE > 60.0 (>51); GLUCOSE, FASTING 88 MG/DL (70-100); LIPASE 227 U/L (73-393); POTASSIUM SERUM 3.9 MEQ/L (3.5-5.1); SODIUM LEVEL 140 MEQ/L (136-145); TOTAL PROTEIN 7.4 GM/DL (6.4-8.2)
--- NOTE | 2018-07-17 00:03 | REPVR ---
EXAM: CT Abdomen and Pelvis Without Contrast EXAM DATE/TIME: 07/16/2018 11:01 PM CLINICAL HISTORY: 53 years old, female; Abdominal pain; Localized; Left lower quadrant (llq); Prior surgery; Additional info: Llq pain TECHNIQUE: Imaging protocol: Axial computed tomography images of the abdomen and pelvis without contrast. Coronal and sagittal reformatted images were created and reviewed. Radiation optimization: All CT scans at this facility use at least one of these dose optimization techniques: automated exposure control; mA and/or kV adjustment per patient size (includes targeted exams where dose is matched to clinical indication); or iterative reconstruction. COMPARISON: CT ABD PELVIS W/O CONTRAST 07/01/2018 3:20 AM FINDINGS: Lungs: Calcific granuloma in the right lower lobe. ABDOMEN: Liver: Normal. No mass. Gallbladder and bile ducts: Status post cholecystectomy. No biliary ductal dilatation. Pancreas: Normal. No ductal dilation. Spleen: Normal. No splenomegaly. Adrenals: Normal. No mass. Kidneys and ureters: Normal. No hydronephrosis. Stomach and bowel: Small sliding-type gastric hiatal hernia. Negative for colonic diverticulitis. No abnormal bowel dilatation. No abnormal bowel wall thickening. Appendix: Appendix is normal. PELVIS: Bladder: Unremarkable as visualized. Reproductive: Status post hysterectomy. ABDOMEN and PELVIS: Intraperitoneal space: Normal. No free air. No significant fluid collection. Bones/joints: Mild degenerative spine. No acute fracture. Soft tissues: There is dependent subcutaneous edema. Small ventral hernia containing fat just right of midline. No evidence of incarceration. Vasculature: Multiple phleboliths in the pelvis. No aortic aneurysm. Lymph nodes: Normal. No enlarged lymph nodes. IMPRESSION: 1. Negative for colonic diverticulitis. 2. Small sliding-type gastric hiatal hernia. 3. Additional findings as described. Electronically signed by: Mey Cifuentes On 07/17/2018 00:03:24 AM
[2018-07-17 00:23] VITALS: BP 120/80
== END 2018-07-17 00:24 | disposition home or self-care (01) ==
LOC: M ED 20:01
DX: K44.9 Diaphragmatic hernia without obstruction or gangrene (principal); Z79.01 Long term (current) use of anticoagulants; Z79.899 Other long term (current) drug therapy; Z88.0 Allergy status to penicillin; Z88.1 Allergy status to other antibiotic agents; Z88.8 Allergy status to other drugs, medicaments and biological substances; Z91.013 Allergy to seafood
CPT/HCPCS: 74176; 80048; 80076; 81001; 83690; 85025; 85610; 99283; Q0162

== ENCOUNTER 2018-07-19 19:08 | Emergency (ER) | payer OTHER ==
--- NOTE | 2018-07-19 20:28 | REPVR ---
EXAM: CT Maxillofacial Without Contrast EXAM DATE/TIME: 07/19/2018 7:56 PM CLINICAL HISTORY: 53 years old, female; Injury or trauma; Fall; Initial encounter; Blunt trauma (contusions or hematomas); Jaw; Left; Additional info: Fall on thinners; Head/ left jaw pain TECHNIQUE: Imaging protocol: Axial computed tomography images of the face without intravenous contrast. Coronal and sagittal reformatted images were created and reviewed. Radiation optimization: All CT scans at this facility use at least one of these dose optimization techniques: automated exposure control; mA and/or kV adjustment per patient size (includes targeted exams where dose is matched to clinical indication); or iterative reconstruction. COMPARISON: No relevant prior studies available. FINDINGS: Orbits: The orbital floors appear intact. Sinuses: Clear paranasal sinuses and clear mastoid air cells. Bones/joints: There is no evidence of fracture. Soft tissues: No significant facial soft tissue swelling. IMPRESSION: No evidence of fracture. Electronically signed by: Boston Sarabia On 07/19/2018 20:27:56 PM
--- NOTE | 2018-07-19 20:34 | REPVR ---
EXAM: CT Head Without Contrast EXAM DATE/TIME: 07/19/2018 7:56 PM CLINICAL HISTORY: 53 years old, female; Injury or trauma; Fall; Initial encounter; Blunt trauma (contusions or hematomas); Without loss of consciousness; Additional info: Fall on thinners; Head/ left jaw pain TECHNIQUE: Imaging protocol: Axial computed tomography images of the head/brain without contrast. Radiation optimization: All CT scans at this facility use at least one of these dose optimization techniques: automated exposure control; mA and/or kV adjustment per patient size (includes targeted exams where dose is matched to clinical indication); or iterative reconstruction. COMPARISON: CT Head without contrast 05/04/2018 3:10 PM FINDINGS: Brain: There is no evidence of mass effect. Ventricles: Normal appearing ventricles. Bones/joints: There is no evidence of fracture. Sinuses: Clear paranasal sinuses. Mastoid air cells: Clear mastoid air cells. Soft tissues: Unremarkable. IMPRESSION: 1. No evidence of fracture. 2. No evidence of bleed. Electronically signed by: Boston Sarabia On 07/19/2018 20:34:16 PM
[2018-07-19 21:19] VITALS: BP 143/88
[2018-07-19] MEDS ORDERED: ONDANSETRON 4 MG ORAL DISINTEGRATING TAB (Q0162 PER 1MG) PO ONE (21:30)
--- NOTE | 2018-07-20 08:46 | REP ---
Right hand series: Four views. History: Pain after a fall. Findings: Four views right hand demonstrate normal bones, joints, and soft tissues. 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 No erosive changes are seen. No fracture is noted. Impression: No traumatic abnormality noted. Electronically Signed by Dominic Chao MD 07/20/2018 08:36 A
== END 2018-07-19 21:29 | disposition home or self-care (01) ==
LOC: M ED 19:08
DX: S06.0X0A Concussion without loss of consciousness, initial encounter (principal); S00.83XA Contusion of other part of head, initial encounter; S60.221A Contusion of right hand, initial encounter; W01.10XA Fall on same level from slipping, tripping and stumbling with subsequent striking against unspecified object, initial encounter; Y92.009 Unspecified place in unspecified non-institutional (private) residence as the place of occurrence of the external cause; Y93.9 Activity, unspecified; Y99.9 Unspecified external cause status; Z88.1 Allergy status to other antibiotic agents; Z88.2 Allergy status to sulfonamides; Z88.6 Allergy status to analgesic agent; Z88.8 Allergy status to other drugs, medicaments and biological substances; Z91.013 Allergy to seafood; Z79.899 Other long term (current) drug therapy
CPT/HCPCS: 70450; 70486; 73130; 99284; Q0162

== ENCOUNTER 2018-07-21 20:29 | Emergency (ER) | payer OTHER ==
[~2018-07-21] VITALS: Ht 157.5 cm; Wt 100.0 kg
[2018-07-21] MEDS ORDERED: ISOVUE-370 76% 100ML VIAL (Q9967) As Ordered ONE (21:00)
[2018-07-21 21:02] LABS: BASO % 0.4 % (0.0-1.0); EOS # 0.1 10^3/uL (0.0-0.50); EOS % 1.4 % (0.0-3.0); HEMATOCRIT 40.5 % (36.0-47.0); HEMOGLOBIN 13.2 g/dl (12.0-15.5); LYMPH # 2.2 10^3/uL (1.5-4.5); MEAN CORPUSCULAR HEMOGLOBIN 30.1 pg (27.0-33.0); MEAN CORPUSCULAR HGB CONC 32.6 g/dl (32.0-36.5); MEAN CORPUSCULAR VOLUME 92.5 fl (80.0-96.0); MONO # 0.4 10^3/uL (0.0-0.8); MONO % 7.7 % (0.0-5.0); NEUTROPHILS # 2.8 10^3/uL (1.8-7.7); NEUTROPHILS % 50.3 % (36.0-66.0); PLATELET COUNT, AUTOMATED 178 10^3/uL (150-450); RED BLOOD COUNT 4.38 10^6/uL (4.00-5.40); WHITE BLOOD COUNT 5.6 10^3/uL (4.0-10.0)
[2018-07-21 21:12] LABS: INR 0.91; PROTHROMBIN TIME 12.3 SECONDS (12.1-14.4)
[2018-07-21 21:22] LABS: BLOOD UREA NITROGEN 10 MG/DL (7-18); CALCIUM LEVEL 8.4 MG/DL (8.5-10.1); CARBON DIOXIDE LEVEL 29 MEQ/L (21-32); CHLORIDE LEVEL 109 MEQ/L (98-107); CK-MB VALUE MASS < 1.0 NG/ML (<3.6); CPK CREATINE PHOSPHOKINASE 114 U/L (26-192); CREATININE FOR GFR 0.93 MG/DL (0.55-1.30); GLOMERULAR FILTRATION RATE > 60.0 (>51); GLUCOSE, FASTING 94 MG/DL (70-100); MB/CK RELATIVE INDEX 0.88 (< OR =4); POTASSIUM SERUM 3.9 MEQ/L (3.5-5.1); SODIUM LEVEL 144 MEQ/L (136-145); TROPONIN I < 0.02 NG/ML (< 0.10)
--- NOTE | 2018-07-21 22:08 | REPVR ---
EXAM: US Duplex Left Lower Extremity Veins, Limited EXAM DATE/TIME: 07/21/2018 9:38 PM CLINICAL HISTORY: 53 years old, female; Pain; Leg, upper; Left TECHNIQUE: Imaging protocol: Real-time Duplex ultrasound of the Left Lower Extremity with 2-D rm scale, color Doppler flow and spectral waveform analysis. Limited exam focused on the left lower extremity veins. COMPARISON: US Duplex, Ext,LOWER veins,unilat 10/03/2017 10:31 AM FINDINGS: Left deep veins: Unremarkable. The common femoral, femoral and popliteal veins are patent without thrombus. Normal compressibility, augmentation response and Doppler waveforms. Left superficial veins: Unremarkable. Saphenofemoral junction is patent without thrombus. Soft tissues: Unremarkable. IMPRESSION: No sonographic evidence of deep vein thrombosis. Electronically signed by: Jamie Renee On 07/21/2018 22:07:20 PM
--- NOTE | 2018-07-21 23:05 | REPVR ---
EXAM: CT Angiography Chest With Contrast EXAM DATE/TIME: 07/21/2018 10:36 PM CLINICAL HISTORY: 53 years old, female; Chest pain; Additional info: Cp TECHNIQUE: Imaging protocol: Axial computed tomographic angiography images of the chest with intravenous contrast using CT angiography protocol. Coronal and sagittal reformatted images were created and reviewed. 3D rendering: MIP reconstructed images were created and reviewed. Radiation optimization: All CT scans at this facility use at least one of these dose optimization techniques: automated exposure control; mA and/or kV adjustment per patient size (includes targeted exams where dose is matched to clinical indication); or iterative reconstruction. Contrast material: ISOVUE 370; Contrast volume: 100 ml; Contrast route: IV; COMPARISON: CT ANGIO CHEST 06/25/2018 2:48 PM FINDINGS: Pulmonary arteries: Contrast opacification satisfactory. No intraluminal filling defect. Aorta: Unremarkable. No aneurysm or dissection. Lungs: Mild central peribronchial thickening, suggestive of airway inflammation. Mild linear stranding and groundglass, likely due to atelectasis and/or scarring. No focal consolidation. Scattered calcified granulomata. Pleural space: Unremarkable. No pneumothorax. No pleural effusion. Heart: Mild cardiomegaly. No pericardial effusion. Mediastinum: Small hiatal hernia. Gallbladder and bile ducts: Status post cholecystectomy. No biliary ductal dilatation. Lymph nodes: No pathologically enlarged lymph nodes. Bones/joints: No acute osseous abnormality. Mild degenerative changes. Soft tissues: See Lungs Finding. IMPRESSION: 1. No CT evidence of pulmonary embolism. 2. Additional findings, as above. Electronically signed by: Jamie Renee On 07/21/2018 23:04:58 PM
[2018-07-21 23:45] VITALS: BP 134/64
--- NOTE | 2018-07-22 05:57 | ECGEPIP ---
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
== END 2018-07-21 23:45 | disposition home or self-care (01) ==
LOC: M ED 20:29
DX: R07.89 Other chest pain (principal); I10 Essential (primary) hypertension; M79.7 Fibromyalgia; Z86.718 Personal history of other venous thrombosis and embolism; F41.9 Anxiety disorder, unspecified; F32.9 Major depressive disorder, single episode, unspecified; K21.9 Gastro-esophageal reflux disease without esophagitis; Z87.891 Personal history of nicotine dependence; Z79.01 Long term (current) use of anticoagulants; Z79.899 Other long term (current) drug therapy; Z88.8 Allergy status to other drugs, medicaments and biological substances; Z88.1 Allergy status to other antibiotic agents; Z91.02 Food additives allergy status
CPT/HCPCS: 71275; 80048; 82550; 82553; 85025; 85610; 85730; 93005; 93971; 99284; Q9967

== ENCOUNTER → 2018-07-24 | Outpatient (CLI) | payer OTHER ==
[~2018-07-24] MED LIST changes: +BUPIVACAINE HCL 0.25% 10 ML VIAL As Ordered ONE; +BUPIVACAINE HCL 0.25% 30 ML VIAL As Ordered ONE; +CAPS0.022 TOP; +PROM25TA12 PO; +REGL5TAB2 PO; +TRIAMCINOLONE ACETONIDE SUSP 40 MG/ML VIAL (J3301) As Ordered ONE; +diazePAM 5 MG TAB As Ordered ONE; +diphenhydrAMINE 25 MG CAP As Ordered ONE; +oxyCODONE 5MG TAB As Ordered ONE
--- NOTE | 2018-08-05 00:20 | ECWPNPC ---
PATIENT NAME: SMITH VIVEROS : 1965 GENDER: FEMALE VISIT DATE: 07/24/2018 DISCHARGE DATE: 07/24/18 1505 VISIT LOCKED DATE TIME: PHYSICIAN: ARELIS MILLER MD RESOURCE: ARELIS MILLER MD REASON FOR APPOINTMENT 1. TPI HISTORY OF PRESENT ILLNESS HISTORY OF PRESENT ILLNESS: PAIN THE PATIENT DESCRIBES THE PAIN... FALL RISK SCREENING: SCREENING :NO FALLS REPORTED IN THE LAST YEAR CURRENT MEDICATIONS TAKING METAXALONE 400 MG TABLET 1 TABLETS ORALLY FOR SPASMS AND PAIN BEFORE BEDTIME MAY REPEAT IN 4HRS, NOTES: WEEK AGO TAKING NITROGLYCERIN 0.4 MG TABLET SUBLINGUAL DIRECTED SUBLINGUAL EVERY 5 MIN: MDD 3 TABLETS, NOTES: WEEK AGO TAKING PAROXETINE HCL 30 MG TABLET 1 TABLET IN THE MORNING ORALLY ONCE A DAY, NOTES: 0600 TAKING ABILIFY 10 MG TABLET 1 TABLET ORALLY ONCE A DAY, NOTES: 07/23/181999 TAKING SUCRALFATE 1 GM TABLET 1 TABLET ORALLY TWICE A DAY, NOTES: 0600 TAKING TOPIRAMATE 50 MG TABLET 1 TABLET ORALLY TWICE A DAY, NOTES: 07/23/181999 TAKING ELIQUIS 5 MG TABLET 1 TAB(S) ORALLY TWICE DAILY, NOTES: 07/23/181999 TAKING PROTONIX 40 MG TABLET DELAYED RELEASE 1 TABLET ORALLY BID, NOTES: 0600 TAKING LISINOPRIL 10 MG TABLET 1 TAB ORALLY DAILY, NOTES: 07/23/181999 NOT-TAKING TIZANIDINE HCL 4 MG TABLET 1 TABLET NEEDED ORALLY FOR SPASMS AND PAIN BEFORE BEDTIME MAY REPEAT IN 5 HRS MDD2, NOTES: RAN OUT, STATES NOT WORKING NOT-TAKING TRAZODONE HCL 50 MG TABLET 1 TABLET AT BEDTIME NEEDED ORALLY ONCE A DAY NOT-TAKING GABAPENTIN 100 MG CAPSULE 1 CAPSULE ORALLY THREE TIMES DAILY NEEDED NOT-TAKING ATORVASTATIN CALCIUM 40 MG TABLET 1 TABLET ORALLY ONCE A DAY NOT-TAKING PREDNISONE 20 MG TABLET 1 TABLET ORALLY ONCE A DAY NOT-TAKING HYDROXYZINE HCL 25 MG TABLET 1 TABLET NEEDED ORALLY ONCE DAILY NEEDED NOT-TAKING DOXYCYCLINE MONOHYDRATE 100 MG CAPSULE 1 CAPSULE ORALLY BID NOT-TAKING CARAFATE 1 GM TABLET 1 TABLET AT BEDTIME ON AN EMPTY STOMACH BEFORE MEALS ORALLY BEFORE BEDTIME NOT-TAKING BLOOD PRESSURE CUFF - MISCELLANEOUS DIRECTED _ DAILY MEDICATION LIST REVIEWED AND RECONCILED WITH THE PATIENT PAST MEDICAL HISTORY FIBROMYALGIA DX 4 YEARS AGO, BEING FOLLOWED AT PAIN CLINIC MIGRAINE HEADACHE STRESS INCONTINENCE DEPRESSION HYPERLIPIDEMIA VITAMIN D DEFICIENCY AFIB GERD INTERMITTENT A FIB STRESS INCONTINENCE, FEMALE CHRONIC PAIN SYNDROME UNSPECIFIED VITAMIN D DEFICIENCY MIGRAINE, UNSPECIFIED WITHOUT MENTION OF INTRACTABLE MIGRAINE WITHOUT MENTION OF STATUS MIGRAINOSUS ALLERGIES ZIPSOR: ALLERGY FLEXERIL: AGGITATION - ALLERGY LYRICA: ANAPHYLAXIS - ALLERGY DICLOFENAC POTASSIUM: AGGITATION (ZIPSOR) - ALLERGY BACTRIM: NAUSEA/VOMITING - ALLERGY SHELL FISH: SWELLS, HIVES - ALLERGY CYMBALTA: NAUSEA/VOMITING - SIDE EFFECTS AMITRIPTYLINE: AGGITATION - SIDE EFFECTS GABAPENTIN: HALLUCINATIONS - SIDE EFFECTS TIZANIDINE HCL: HIVES - ALLERGY KETOROLAC TROMETHAMINE: STOMACH PAIN - ALLERGY SURGICAL HISTORY TUBAL LIGATION 1987 DISTAL 4TH FINGER REPAIR SECONDARY TO TRAUMATIC INJURY BENIGN TUMOR REMOVAL RIGHT LEG DENTAL SURGERIES CHOLECYSTECTOMY 05/2014 HYSTERECTOMY STILL HAS 1 OVARY BUT NOT SURE WHICH ONE 2012 ABSCESS R GROIN 2014 FAMILY HISTORY FATHER: , PNEUMONIA, CHF, NEUROPATHY, BLOOD CLOT, DIAGNOSED WITH DIABETES, HEART DISEASE, STROKE MOTHER: , CANCER, CANCER, HYPERTENSION, HEART DISEASE, STROKE, DIABETES SIBLINGS: ALIVE, LUPUS, DIABETES SON(S): ALIVE DAUGHTER(S): ALIVE 2 BROTHER(S) , 5 SISTER(S) . 1 SON(S) , 1 DAUGHTER(S) - HEALTHY. SOCIAL HISTORY GENERAL: TOBACCO USE ARE YOU A:FORMER SMOKER HOW LONG HAS IT BEEN SINCE YOU LAST SMOKED?5-10 YEARS VAPORNO E-CIGARETTEYES HIV / HEP-C SCREENING HIV TEST OFFERED TO PATIENT:YES DATE OFFERED:10/26/2017 TEST ACCEPTED:NO REASON:PATIENT DECLINED BROCHURE PROVIDED TO PATIENTNO HEP-C TEST OFFERED TO PATIENT:NO OTHERS AT HOME: AFOHPN-EF-IXH, BROTHER, NEPHEW AND BOYFRIEND. DIET: REGULAR. LANGUAGE COMORAN. DOMESTIC VIOLENCE DO YOU FEEL SAFE IN YOUR ENVIRONMENT?YES NEW PATIENT PAIN DIARY FROM 0-10, WHAT LEVEL IS YOUR PAIN TODAY?10 BMI CARE GOAL FOLLOW-UP ABOVE NORMAL BMI FOLLOW-UPLIFESTYLE EDUCATION REGARDING DIET RECREATIONAL DRUG USE DRUG USE?NO EXERCISE: NO REGULAR EXERCISE. LEARNING BARRIERS / SPECIAL NEEDS CHANGE FROM LAST VISIT?NO BARRIERS TO LEARNING?NO HEARING IMPAIRED?NO VISION IMPAIRED?YES :CORRECTIVE LENSES COGNITIVELY IMPAIRED?NO READINESS TO LEARN?YES LEARNING PREFERENCES?NO LEARNING CAPABILITIES PRESENT?YES EMOTIONAL BARRIERS?YES SPECIAL DEVICES?NO PAIN CLINIC PFS, CLERGY, PUBLIC HEALTH REFERRALS PFS REFERRAL NEEDED?NO CLERGY REFERRAL NEEDED?NO PUBLIC HEALTH REFERRAL NEEDED?NO WAS THE PROVIDER NOTIFIED OF ANY PERTINENT INFO?NO N/A HAS THE PATIENT BEEN EDUCATED REGARDING HIS/HER PLAN OF CARE?YES HAS THE PATIENT BEEN EDUCATED REGARDING PAIN, THE RISK FOR PAIN, THE IMPORTANCE OF EFFECTIVE PAIN MANAGEMENT, AND THE PAIN ASSESSMENT PROCESS?YES LATEX QUESTIONNAIRE LATEX ALLERGY : HAVE YOU EVER DEVELOPED ANY TYPE OF REACTION AFTER HANDLING LATEX PRODUCTS SUCH RUBBER GLOVES, CONDOMS, DIAPHRAGMS, BALLOONS, SOCKS, OR UNDERWEAR?NO LATEX ALLERGY : HAVE YOU EVER DEVELOPED ANY TYPE OF REACTION DURING OR AFTER DENTAL APPOINTMENT, VAGINAL/RECTAL EXAMINATION, SURGICAL PROCEDURE, OR ANY OTHER EXPOSURE?NO LATEX RISK : HAVE YOU EVER HAD ANY DIFFICULTY BREATHING OR HIVES AFTER EATING OR HANDLING ANY FRUITS, OR VEGETABLES; SUCH KIWI, BANANAS, STONE FRUITS, OR CHESTNUTSNO LATEX RISK : DO YOU HAVE A PREVIOUS PERSONAL HISTORY OF MORE THAN NINE SURGERIES, SPINA BIFIDA, OR REPEATED CATHERTIZATIONS? YES - PLEASE INDICATE : > 9 SURGERIES LATEX RISK : ARE YOU FREQUENTLY EXPOSED TO LATEX PRODUCTS IN YOUR OCCUPATION?NO DATE ASKED : 06/24/2018 CAFFEINE CAFFEINE USE?YES ADVANCE DIRECTIVE ADVANCE DIRECTIVE DISCUSSED WITH PATIENT:YES PT HAS NO ADVANCED DIRECTIVES, DECLINES HCP INFORMATION AND ASSISTANCE WITH FORM AT THIS TIME. CONGREGATION NO FAITH BELIEFS THAT WOULD IMPACT HEALTH CARE. MARITAL STATUS: .. ALCOHOL SCREENING DID YOU HAVE A DRINK CONTAINING ALCOHOL IN THE PAST YEAR?NO POINTS0 INTERPRETATIONNEGATIVE OCCUPATION: UNEMPLOYED. SEXUAL HX HAD SEX IN THE LAST 12 MONTHS (VAGINAL, ORAL, OR ANAL)?NO HAVE YOU EVER HAD AN STD?NO 08/15/17 1025 REVIEWED WITH PT. AD03/15/2018 1508 REVIEWED WITH PT LAS03/27/18 1116 REVIEWED WITH PT BVREVIEWED WITH PATIENT 06/24/18 1028 JSREVIEWED WITH PATIENT 07/24/18 1257 JS. HOSPITALIZATION/MAJOR DIAGNOSTIC PROCEDURE ABOVE SURGERIES MRSA RIGHT GROIN 2015, C DIFF 2015 CHEST PAIN 10/20/2016 [facility] 09/2017 DIVERTICULITIS AND /HYPOTENSION 06/2018 REVIEW OF SYSTEMS REVIEWED BY: PROVIDER: . CONSTITUTIONAL: ANY CHANGE IN YOUR MEDICAL CONDITION? NO . CHILLS NO . FEVER NO . INFECTION: DO YOU HAVE NEW INFECTIONS? NO . DO YOU HAVE HISTORY OF MRSA? YES, HISTORY OF MRSA IN GROIN/LEFT LEG 3-4 YEARS AGO, NO ACTIVE MRSA INFECTION CURRENTLY . MUSCULOSKELETAL: ANY NEW PATTERNS OF PAIN OR NUMBNESS? NO . GASTROENTEROLOGY: ANY NEW CHANGE IN BOWEL CONTROL? NO . GENITOURINARY: ANY NEW CHANGE IN BLADDER CONTROL? NO . IS THERE A CHANCE YOU COULD BE ? NO . HEMATOLOGY/LYMPH: DO YOU TAKE ANY BLOOD THINNERS? (FOR EXAMPLE- COUMADIN, PLAVIX, AGGRENOX, PLATEL, PRADAXA, OR XARELTO) YES, ELIQUIS . WHEN WAS YOUR LAST DOSE? DATE: 07/23/18TIME: 1999 . NEUROLOGY: HAVE YOU FALLEN IN THE PAST 12 MONTHS? YES, STATES TRIPPED OVER LAUNDRY BASKET, WENT TO ED DUE TO BEING ON ELIQUIS, NO INJURIES . ANY NEW EXTREMITY NUMBNESS OR WEAKNESS? NO . CARDIOLOGY: DO YOU HAVE A PACEMAKER OR DEFIBRILLATOR? NO . RESPIRATORY: HAVE YOU BEEN SICK IN THE PAST WEEK? NO . FEVER NO . FLU LIKE SYMPTOMS? NO . COUGH NO . INTEGUMENTARY: DO YOU HAVE ANY RASHES OR OPEN SORES? NO . ALLERGIC/IMMUNO: ARE YOU ALLERGIC TO IV DYE? NO . ANY NEW ALLERGIES? NO . PSYCHIATRIC: DO YOU HAVE THOUGHTS OF HURTING YOURSELF OR SOMEONE ELSE? NO . ARE YOU ABUSED, NEGLECTED, OR IN AN UNSAFE ENVIRONMENT? NO . ENDOCRINOLOGY: ARE YOU DIABETIC? NO . OTHER: DO YOU NEED ANY PRESCRIPTIONS? NO . IF YES, PLEASE LIST: ____ . ANY NEW PROBLEMS WITH YOUR MEDICATIONS? NO . WHEN DID YOU LAST EAT? ____07/23/18 1900 . WHEN DID YOU LAST DRINK? ____07/24/18 0600 . WHAT DID YOU LAST DRINK? ____WATER . NAME OF PERSON DRIVING YOU HOME? ____YELLOW [employer] APPRA[employer]ER . DO YOU HAVE ANY OTHER QUESTIONS OR CONCERNS NO . VITAL SIGNS WT 241.2 LBS, HT 61 IN, BMI 45.57 INDEX, BP 141/86 MM HG, HR 73 /MIN, RR 18 /MIN, TEMP 97.4 F, OXYGEN SAT % 97%, SAFE IN ENV? (Y/N) YES, NA INITIALS SC 12:34, REVIEWED BY: JS. ASSESSMENTS MYALGIA, OTHER SITE - M79.18 (PRIMARY) PROCEDURES PN TRIGGER POINT INJECTION WITH STEROIDS PRE PROCEDURE DIAGNOSIS 1. MYALGIA 2. PAIN AT BILATERAL NECK AREA AND BILATERAL SHOULDER AREA POST PROCEDURE DIAGNOSIS 1. MYALGIA 2. PAIN AT BILATERAL NECK AREA AND BILATERAL SHOULDER AREA PROCEDURE TRIGGER POINT INJECTION AT BILATERAL NECK AREA AND BILATERAL SHOULDER AREA SURGEON DR. ARELIS MILLER MICROBIOLOGY LAB ASSISTANT NONE ANESTHESIA LOCAL PRE PROCEDURE NOTE THE PATIENT HAS A HISTORY OF CHRONIC PAIN AT THE RIGHT AND LEFT NECK AREA AND RIGHT AND LEFT SHOULDER AREA. I EVALUATE THE PATIENT AND REVIEWED THE CHART. THERE IS EVIDENCE OF BANDS OF TISSUE WITH RESTRICTION OF MOVEMENT AND PRESENCE OF TRIGGER POINT AT THE AFFECTED AREA. I WENT OVER THE RISKS, ALTERNATIVES, AND BENEFITS ASSOCIATED WITH THIS PROCEDURE. THE PATIENT WOULD LIKE TO PROCEED AND GIVE CONSENT TO PERFORMED THE PROCEDURE. THE PATIENT DENIES UNEXPLAINABLE WEIGHT LOSS, FEVER, CHILLS, OR NEW CHANGES IN URINARY OR BOWEL CONTROL DESCRIPTION OF PROCEDURE THE PATIENT WAS BROUGHT TO THE PROCEDURE ROOM AND PLACED IN THE SITTING POSITION. THE AREA WAS CLEANED WITH ALCOHOL. THE PROCEDURE WAS DONE USING ASEPTIC STERILE TECHNIQUE. I CHECKED LATERALITY AND THE LEVEL WHERE THE PROCEDURE WAS GOING TO BE PERFORMED WITH THE PATIENT AND THE SUPPORTING STAFF AT THE MOMENT OF THE TIME OUT IN THE PROCEDURE ROOM. USING A 25-GAUGE NEEDLE, TRIGGER POINTS WERE INJECTED AT THE RIGHT AND LEFT NECK AREA AND RIGHT AND LEFT SHOULDER AREA WITH A TOTAL OF 40 ML OF BUPIVACAINE 0.25% AND KENALOG 40 MG. THERE WAS NO EVIDENCE OF BLOOD, PARESTHESIA OR CEREBROSPINAL FLUID DURING THE PROCEDURE. THE PATIENT WAS SENT TO THE RECOVERY ROOM. THE PATIENT WAS MOVING THE EXTREMITIES AND DOING WELL. THERE WAS NO COMPLICATION DURING THE PROCEDURE POST PROCEDURE NOTE THE PATIENT WILL BE SEEN IN A FOLLOW UP IN THE NEXT FEW WEEKS. INSTRUCTIONS WERE GIVEN, QUESTIONS WERE ANSWERED, AND THE PATIENT EXPRESSED UNDERSTANDING AND AGREES WITH THE PLAN. I, ROXY FISHER, DOCUMENTED THE ABOVE INFORMATION ACTING A SCRIBE FOR DR. MILLER. I HAVE REVIEWED THE ABOVE DOCUMENT, WRITTEN BY ROXY PALMER AND I VERIFY THAT IT IS ACCURATE. PROCEDURE CODES 30493 INJECT TRIGGER POINTS 3/> DISPOSITION & COMMUNICATION FOLLOW UP 3 WEEKS ELECTRONICALLY SIGNED BY ARELIS MILLER MD, MD ON 08/04/2018 AT 06:52 AM EDT DISCLAIMER : THIS IS A VISIT SUMMARY EXTRACTED FROM THE [employer] CHART. IT IS NOT A COPY OF THE [employer] PROGRESS NOTE. [facility]
== END ==
LOC: M PAIN 12:15
PROVIDERS: ATTEND Anesthesiology
DX: M79.18 Myalgia, other site (principal); M54.2 Cervicalgia; M25.511 Pain in right shoulder; M25.512 Pain in left shoulder; G43.909 Migraine, unspecified, not intractable, without status migrainosus; F32.9 Major depressive disorder, single episode, unspecified; E78.5 Hyperlipidemia, unspecified; K21.9 Gastro-esophageal reflux disease without esophagitis; E66.01 Morbid (severe) obesity due to excess calories; Z68.42 Body mass index [BMI] 45.0-49.9, adult; Z79.01 Long term (current) use of anticoagulants; Z79.899 Other long term (current) drug therapy; Z88.2 Allergy status to sulfonamides; Z88.8 Allergy status to other drugs, medicaments and biological substances; Z91.013 Allergy to seafood; Z86.14 Personal history of Methicillin resistant Staphylococcus aureus infection; Z87.891 Personal history of nicotine dependence; Z86.79 Personal history of other diseases of the circulatory system
CPT/HCPCS: 20553; J3301

== ENCOUNTER 2018-07-26 13:17 | Emergency (ER) | payer OTHER ==
[~2018-07-26] VITALS: Ht 157.5 cm; Wt 100.0 kg
[~2018-07-26 13:17] MED LIST changes: -BUPIVACAINE HCL 0.25% 10 ML VIAL As Ordered ONE; -BUPIVACAINE HCL 0.25% 30 ML VIAL As Ordered ONE; -CAPS0.022 TOP; -PROM25TA12 PO; -REGL5TAB2 PO; -TRAZ-160 PO; +TRAZ-252 PO; +TRAZ1TAB10 PO; -TRAZO50TA PO; -TRIAMCINOLONE ACETONIDE SUSP 40 MG/ML VIAL (J3301) As Ordered ONE; -diazePAM 5 MG TAB As Ordered ONE; -diphenhydrAMINE 25 MG CAP As Ordered ONE; -oxyCODONE 5MG TAB As Ordered ONE
[2018-07-26] MEDS ORDERED: ONDANSETRON 4 MG ORAL DISINTEGRATING TAB (Q0162 PER 1MG) PO ONE (14:30)
[2018-07-26] MEDS ORDERED: ACETAMINOPHEN TAB 650MG DOSE (2X325MG) PO ONE (14:30)
[2018-07-26 15:58] LABS: HEMATOCRIT 43.3 % (36.0-47.0); MEAN CORPUSCULAR HEMOGLOBIN 30.5 pg (27.0-33.0); MEAN CORPUSCULAR HGB CONC 32.3 g/dl (32.0-36.5); MEAN CORPUSCULAR VOLUME 94.3 fl (80.0-96.0); PLATELET COUNT, AUTOMATED 208 10^3/uL (150-450); RED BLOOD COUNT 4.59 10^6/uL (4.00-5.40); WHITE BLOOD COUNT 7.2 10^3/uL (4.0-10.0)
[2018-07-26 16:31] LABS: ERYTHROCYTE SEDIMENTATION RATE 11 mm/hr (0-30)
[2018-07-26 16:37] VITALS: BP 130/68
[2018-07-26] MEDS ORDERED: KETOROLAC 60 MG/2 ML VIAL (J1885) IM ONE (17:00)
== END 2018-07-26 17:31 | disposition home or self-care (01) ==
LOC: M ED 13:17
DX: R51 Headache (principal); I11.0 Hypertensive heart disease with heart failure; I50.9 Heart failure, unspecified; I48.91 Unspecified atrial fibrillation; J44.9 Chronic obstructive pulmonary disease, unspecified; Z86.69 Personal history of other diseases of the nervous system and sense organs; Z79.899 Other long term (current) drug therapy; Z88.1 Allergy status to other antibiotic agents; Z88.2 Allergy status to sulfonamides; Z88.8 Allergy status to other drugs, medicaments and biological substances; Z91.013 Allergy to seafood
CPT/HCPCS: 85027; 85652; 86140; 96372; 99283; J1885; Q0162

== ENCOUNTER 2018-07-31 18:57 | Emergency (ER) | payer OTHER ==
[~2018-07-31] VITALS: Ht 157.5 cm; Wt 100.0 kg
[~2018-07-31 18:57] MED LIST changes: +TRAZ-160 PO; -TRAZ-252 PO; -TRAZ1TAB10 PO; +TRAZO50TA PO
[2018-07-31] MEDS ORDERED: LIDOCAINE 5% (LIDODERM) PATCH TD STA (22:41)
[2018-07-31] MEDS ORDERED: CAPS0.022 TOP (22:43)
[2018-07-31] MEDS ORDERED: ONDANSETRON 4 MG ORAL DISINTEGRATING TAB (Q0162 PER 1MG) PO ONE (22:45)
[2018-07-31 22:48] VITALS: BP 135/77
[2018-08-01] MEDS ORDERED: **NOTE PATIENT COMMENT** MISC XX ONE (11:00)
== END 2018-07-31 22:51 | disposition home or self-care (01) ==
LOC: M ED 18:57
DX: M54.2 Cervicalgia (principal); R11.0 Nausea; T80.89XA Other complications following infusion, transfusion and therapeutic injection, initial encounter; X58.XXXA Exposure to other specified factors, initial encounter; Y92.89 Other specified places as the place of occurrence of the external cause; I50.9 Heart failure, unspecified; I48.91 Unspecified atrial fibrillation; I25.2 Old myocardial infarction; M79.7 Fibromyalgia; G43.909 Migraine, unspecified, not intractable, without status migrainosus; Z86.711 Personal history of pulmonary embolism; Z86.69 Personal history of other diseases of the nervous system and sense organs; Z79.899 Other long term (current) drug therapy; Z79.01 Long term (current) use of anticoagulants; Z88.0 Allergy status to penicillin; Z88.2 Allergy status to sulfonamides; Z88.8 Allergy status to other drugs, medicaments and biological substances; Z91.013 Allergy to seafood; F17.210 Nicotine dependence, cigarettes, uncomplicated
CPT/HCPCS: 99283; Q0162

== ENCOUNTER 2018-08-04 03:37 | Emergency (ER) | payer OTHER ==
[~2018-08-04] VITALS: Ht 157.5 cm; Wt 100.0 kg
[~2018-08-04 03:37] MED LIST changes: +CAPS0.022 TOP; -TRAZ-160 PO; +TRAZ-252 PO; +TRAZ1TAB10 PO; -TRAZO50TA PO
[2018-08-04 05:45] LABS: BASO % 0.3 % (0.0-1.0); EOS # 0.1 10^3/uL (0.0-0.50); EOS % 0.9 % (0.0-3.0); HEMATOCRIT 39.7 % (36.0-47.0); LYMPH # 2.1 10^3/uL (1.5-4.5); LYMPH % 36.7 % (24.0-44.0); MEAN CORPUSCULAR HGB CONC 32.7 g/dl (32.0-36.5); MEAN CORPUSCULAR VOLUME 91.5 fl (80.0-96.0); MONO # 0.5 10^3/uL (0.0-0.8); NEUTROPHILS # 3.1 10^3/uL (1.8-7.7); NEUTROPHILS % 53.6 % (36.0-66.0); PLATELET COUNT, AUTOMATED 162 10^3/uL (150-450); RED BLOOD COUNT 4.34 10^6/uL (4.00-5.40); WHITE BLOOD COUNT 5.7 10^3/uL (4.0-10.0)
[2018-08-04 06:05] LABS: ALBUMIN 2.7 GM/DL (3.2-5.2); ALT/SGPT 24 U/L (12-78); BILIRUBIN,DIRECT < 0.1 MG/DL (0.0-0.2); BILIRUBIN,TOTAL 0.4 MG/DL (0.2-1.0); LIPASE 202 U/L (73-393)
[2018-08-04] MEDS ORDERED: ONDANSETRON 4MG/2ML VIAL (J2405) IV ONE (06:15)
[2018-08-04 06:30] LABS: AMYLASE 37 U/L (25-115)
[2018-08-04] MEDS: MORPHINE 4 MG/ML 1ML VIAL/SYRINGE (J2270) IV PRN ×2 (06:31→07:29)
[2018-08-04] MEDS ORDERED: PERC5TAB12 PO ×2 (08:01→08:03)
[2018-08-04] MEDS ORDERED: REGL5TAB2 PO (08:01)
[2018-08-04] MEDS ORDERED: diphenhydrAMINE INJ 50MG/ML VIAL (J1200) IV ONE (08:15)
[2018-08-04] MEDS ORDERED: HALOPERIDOL 5 MG/ML VIAL (J1630) IV ONE (08:30)
[2018-08-04] MEDS ORDERED: NS 1,000 ML IV ONE ×2 (08:45→10:45)
[2018-08-04] MEDS ORDERED: ISOVUE-370 76% 100ML VIAL (Q9967) As Ordered ONE (08:59)
--- NOTE | 2018-08-04 09:27 | REP ---
Clinical: Left upper quadrant pain. Technique: Axial contrast enhanced images from the lung bases to the pubic symphysis using 100 ml Isovue 370 intravenous contrast material. Coronal and sagittal re-formations obtained. Comparison: 07/16/2018. Findings: Lung bases are unchanged and evidence for prior granulomas disease again noted. Visualized portions of the heart and pericardium normal. Liver, spleen, pancreas, bilateral kidneys and adrenal glands are normal. Evidence for prior cholecystectomy. The enteric system is without obstruction or acute inflammatory process. Normal terminal ileum and appendix are identified in the right lower quadrant. Few scattered sigmoid diverticula noted without acute diverticulitis. Pelvis demonstrates normal bladder and evidence of prior partial hysterectomy. No ascites. No free air. No adenopathy. Abdominal aorta and vasculature normal. Musculoskeletal structures without focal osseous abnormality. Impression: 1. No acute abdominopelvic pathology appreciated. 2. Evidence of prior granulomatous disease. 3. Scattered sigmoid diverticula without acute diverticulitis. 4. Prior cholecystectomy and partial hysterectomy. Electronically Signed by Fletcher Serna MD 08/04/2018 09:19 A
[2018-08-04 11:16] VITALS: BP 110/57
--- NOTE | 2018-08-04 19:39 | ECGEPIP ---
[facility] - ED Test Date: 2018-08-04 Pat Name: SMITH VIVEROS Department: Room: - Gender: Female Medical Associate: : 1965 Requested By: Marycruz Acrher PA-C Order Number: [id number] Reading MD: Brittney Devlin Measurements Intervals [place] Rate: 46 P: 12 [place]: 147 QRS: 9 QRSD: 90 T: 7 QT: 450 QTc: 395 Interpretive Statements SINUS BRADYCARDIA LOW QRS VOLTAGE IN PRECORDIAL LEADS POSSIBLE INFERIOR MYOCARDIAL INFARCTION, PROBABLY OLD NONSPECIFIC ST T WAVE CHANGES CW 07/21/[address] T WAVE CHANGES Electronically Signed on 08-04-2018 19:39:19 EDT by Brittney Devlin
== END 2018-08-04 11:46 | disposition home or self-care (01) ==
LOC: M ED 03:37
DX: R10.12 Left upper quadrant pain (principal); R10.32 Left lower quadrant pain; R11.2 Nausea with vomiting, unspecified; R19.7 Diarrhea, unspecified; R00.1 Bradycardia, unspecified; K57.30 Diverticulosis of large intestine without perforation or abscess without bleeding; I48.91 Unspecified atrial fibrillation; I50.9 Heart failure, unspecified; I25.2 Old myocardial infarction; J44.9 Chronic obstructive pulmonary disease, unspecified; G47.30 Sleep apnea, unspecified; M79.7 Fibromyalgia; E03.9 Hypothyroidism, unspecified; H40.9 Unspecified glaucoma; G43.909 Migraine, unspecified, not intractable, without status migrainosus; K21.9 Gastro-esophageal reflux disease without esophagitis; F44.5 Conversion disorder with seizures or convulsions; Z86.69 Personal history of other diseases of the nervous system and sense organs; Z87.19 Personal history of other diseases of the digestive system; Z86.718 Personal history of other venous thrombosis and embolism; Z79.01 Long term (current) use of anticoagulants; Z79.899 Other long term (current) drug therapy; Z88.8 Allergy status to other drugs, medicaments and biological substances; Z88.1 Allergy status to other antibiotic agents; Z91.013 Allergy to seafood
CPT/HCPCS: 74177; 80047; 80076; 81001; 82150; 83690; 85025; 93005; 93041; 96361; 96375; 96376; 99285; J1200; J1630; J2270; J2405; Q9967

== ENCOUNTER 2018-08-06 17:30 | Emergency (ER) | payer OTHER ==
[~2018-08-06 17:30] MED LIST changes: +REGL5TAB2 PO
[2018-08-06] MEDS ORDERED: DICYCLOMINE 10 MG CAP PO ONE (18:00)
[2018-08-06] MEDS ORDERED: NS 1,000 ML IV ONE (18:00)
[2018-08-06] MEDS ORDERED: PROMETHAZINE INJ 25 MG/ML VIAL (J2550) IV ONE (18:00)
[2018-08-06 18:44] LABS: BASO % 0.3 % (0.0-1.0); EOS # 0.1 10^3/uL (0.0-0.50); EOS % 0.7 % (0.0-3.0); HEMATOCRIT 45.5 % (36.0-47.0); HEMOGLOBIN 15.5 g/dl (12.0-15.5); LYMPH # 1.9 10^3/uL (1.5-4.5); LYMPH % 25.1 % (24.0-44.0); MEAN CORPUSCULAR HEMOGLOBIN 30.9 pg (27.0-33.0); MEAN CORPUSCULAR HGB CONC 34.1 g/dl (32.0-36.5); MEAN CORPUSCULAR VOLUME 90.6 fl (80.0-96.0); MONO # 0.5 10^3/uL (0.0-0.8); MONO % 7.2 % (0.0-5.0); NEUTROPHILS % 66.4 % (36.0-66.0); PLATELET COUNT, AUTOMATED 210 10^3/uL (150-450); RED BLOOD COUNT 5.02 10^6/uL (4.00-5.40); WHITE BLOOD COUNT 7.5 10^3/uL (4.0-10.0)
[2018-08-06 19:23] LABS: CALCIUM LEVEL 9.5 MG/DL (8.5-10.1); CREATININE FOR GFR 1.03 MG/DL (0.55-1.30); GLOMERULAR FILTRATION RATE 59.7 (>51); POTASSIUM SERUM 3.6 MEQ/L (3.5-5.1)
[2018-08-06 19:24] LABS: ALBUMIN 3.6 GM/DL (3.2-5.2); BILIRUBIN,DIRECT 0.1 MG/DL (0.0-0.2); BILIRUBIN,TOTAL 0.4 MG/DL (0.2-1.0); TOTAL PROTEIN 6.7 GM/DL (6.4-8.2)
[2018-08-06] MEDS ORDERED: PROMETHAZINE INJ 25 MG/ML VIAL (J2550) IM ONE (19:30)
[2018-08-06] MEDS ORDERED: ACETAMINOPHEN 325 MG TAB PO ONE (21:00)
[2018-08-06] MEDS ORDERED: PROM25TA12 PO (21:37)
[2018-08-06 21:42] VITALS: BP 129/64
== END 2018-08-06 21:48 | disposition home or self-care (01) ==
LOC: EDBD 17:30 → M ED 17:30
DX: A08.11 Acute gastroenteropathy due to Norwalk agent (principal); I11.0 Hypertensive heart disease with heart failure; I50.9 Heart failure, unspecified; J44.9 Chronic obstructive pulmonary disease, unspecified; I48.91 Unspecified atrial fibrillation; E78.5 Hyperlipidemia, unspecified; E05.90 Thyrotoxicosis, unspecified without thyrotoxic crisis or storm; M79.7 Fibromyalgia; R56.9 Unspecified convulsions; K21.9 Gastro-esophageal reflux disease without esophagitis; E66.9 Obesity, unspecified; Z79.899 Other long term (current) drug therapy; Z79.01 Long term (current) use of anticoagulants; Z88.1 Allergy status to other antibiotic agents; Z88.8 Allergy status to other drugs, medicaments and biological substances

== ENCOUNTER 2018-08-12 20:53 | Emergency (ER) | payer OTHER ==
[~2018-08-12] VITALS: Ht 157.5 cm; Wt 100.0 kg
[~2018-08-12 20:53] MED LIST changes: +PROM25TA12 PO
[2018-08-12 21:50] LABS: BASO % 0.3 % (0.0-1.0); EOS # 0.1 10^3/uL (0.0-0.50); EOS % 0.8 % (0.0-3.0); HEMATOCRIT 40.9 % (36.0-47.0); HEMOGLOBIN 13.7 g/dl (12.0-15.5); LYMPH # 2.2 10^3/uL (1.5-4.5); LYMPH % 33.7 % (24.0-44.0); MEAN CORPUSCULAR HEMOGLOBIN 30.7 pg (27.0-33.0); MEAN CORPUSCULAR HGB CONC 33.5 g/dl (32.0-36.5); MEAN CORPUSCULAR VOLUME 91.7 fl (80.0-96.0); MONO # 0.4 10^3/uL (0.0-0.8); MONO % 6.3 % (0.0-5.0); NEUTROPHILS # 3.9 10^3/uL (1.8-7.7); NEUTROPHILS % 58.6 % (36.0-66.0); PLATELET COUNT, AUTOMATED 167 10^3/uL (150-450); RED BLOOD COUNT 4.46 10^6/uL (4.00-5.40); WHITE BLOOD COUNT 6.6 10^3/uL (4.0-10.0)
[2018-08-12 22:18] LABS: ALBUMIN 3.3 GM/DL (3.2-5.2); ALT/SGPT 38 U/L (12-78); BILIRUBIN,DIRECT < 0.1 MG/DL (0.0-0.2); BILIRUBIN,TOTAL 0.2 MG/DL (0.2-1.0); BLOOD UREA NITROGEN 14 MG/DL (7-18); CALCIUM LEVEL 8.8 MG/DL (8.5-10.1); CARBON DIOXIDE LEVEL 27 MEQ/L (21-32); CHLORIDE LEVEL 109 MEQ/L (98-107); CREATININE FOR GFR 0.92 MG/DL (0.55-1.30); GLOMERULAR FILTRATION RATE > 60.0 (>51); GLUCOSE, FASTING 98 MG/DL (70-100); LIPASE 255 U/L (73-393); POTASSIUM SERUM 3.8 MEQ/L (3.5-5.1); SODIUM LEVEL 143 MEQ/L (136-145); TOTAL PROTEIN 6.4 GM/DL (6.4-8.2)
[2018-08-13] MEDS ORDERED: METOCLOPRAMIDE INJ 10MG/2ML VIAL (J2765) IV ONE (01:30)
[2018-08-13] MEDS ORDERED: DICYCLOMINE 10 MG CAP PO ONE (01:30)
[2018-08-13] MEDS ORDERED: DICY1CAP8 PO (02:18)
[2018-08-13 02:27] VITALS: BP 124/78
[2018-08-14] MEDS ORDERED: DICY1CAP8 PO (16:36)
[2018-08-14] MEDS ORDERED: METO5TAB2 PO (16:36)
[2018-08-14] MEDS ORDERED: PROM25TA12 PO (16:36)
== END 2018-08-13 02:27 | disposition home or self-care (01) ==
LOC: M ED 20:53
DX: A08.11 Acute gastroenteropathy due to Norwalk agent (principal); R10.30 Lower abdominal pain, unspecified; R11.0 Nausea; I48.91 Unspecified atrial fibrillation; I50.9 Heart failure, unspecified; K52.9 Noninfective gastroenteritis and colitis, unspecified; Z86.718 Personal history of other venous thrombosis and embolism; Z79.01 Long term (current) use of anticoagulants; Z79.899 Other long term (current) drug therapy; Z88.1 Allergy status to other antibiotic agents; Z88.8 Allergy status to other drugs, medicaments and biological substances; Z91.013 Allergy to seafood
CPT/HCPCS: 36415; 80048; 80076; 81001; 83690; 85025; 96374; 99284; J2765

== ENCOUNTER 2018-08-14 12:07 | Emergency (ER) | payer OTHER ==
[~2018-08-14] VITALS: Ht 157.5 cm; Wt 100.0 kg
[~2018-08-14 12:07] MED LIST changes: +DICY1CAP8 PO
[2018-08-14] MEDS ORDERED: NS 1,000 ML IV SCH (12:34)
[2018-08-14] MEDS ORDERED: PROMETHAZINE INJ 25 MG/ML VIAL (J2550) IV ONE (12:45)
[2018-08-14 14:06] LABS: BASO % 0.3 % (0.0-1.0); EOS % 0.7 % (0.0-3.0); HEMOGLOBIN 13.4 g/dl (12.0-15.5); LYMPH # 1.8 10^3/uL (1.5-4.5); LYMPH % 31.1 % (24.0-44.0); MEAN CORPUSCULAR HEMOGLOBIN 30.6 pg (27.0-33.0); MEAN CORPUSCULAR HGB CONC 32.7 g/dl (32.0-36.5); MEAN CORPUSCULAR VOLUME 93.6 fl (80.0-96.0); MONO # 0.4 10^3/uL (0.0-0.8); MONO % 7.1 % (0.0-5.0); NEUTROPHILS # 3.5 10^3/uL (1.8-7.7); NEUTROPHILS % 60.5 % (36.0-66.0); PLATELET COUNT, AUTOMATED 159 10^3/uL (150-450); RED BLOOD COUNT 4.38 10^6/uL (4.00-5.40); WHITE BLOOD COUNT 5.8 10^3/uL (4.0-10.0)
--- NOTE | 2018-08-14 14:08 | REP ---
REASON FOR EXAM: Abdominal pain. COMPARISON: Frontal view of the chest, multiple. FINDINGS: Supine and upright views of the abdomen show the intestinal gas pattern to be nonspecific. Gas and stool is seen throughout the colon within the rectosigmoid region. The organ silhouettes insofar as delineated appear unremarkable. No abdominal calcific densities are seen within the abdomen or pelvis. The accompanying single frontal view of the chest shows no free subdiaphragmatic air, cardiomegaly, infiltrates or effusions. IMPRESSION: Nonspecific intestinal gas pattern. Electronically Signed by Jt De Leon DO 08/14/2018 04:56 P
[2018-08-14 14:37] LABS: ALT/SGPT 47 U/L (12-78); BILIRUBIN,DIRECT < 0.1 MG/DL (0.0-0.2); BILIRUBIN,TOTAL 0.2 MG/DL (0.2-1.0); BLOOD UREA NITROGEN 14 MG/DL (7-18); CALCIUM LEVEL 8.4 MG/DL (8.5-10.1); CARBON DIOXIDE LEVEL 26 MEQ/L (21-32); CHLORIDE LEVEL 111 MEQ/L (98-107); GLOMERULAR FILTRATION RATE > 60.0 (>51); GLUCOSE, FASTING 81 MG/DL (70-100); LIPASE 241 U/L (73-393); POTASSIUM SERUM 4.1 MEQ/L (3.5-5.1); SODIUM LEVEL 145 MEQ/L (136-145); TOTAL PROTEIN 6.3 GM/DL (6.4-8.2)
[2018-08-14 16:15] VITALS: BP 119/76
[2018-08-14] MEDS ORDERED: METO5TAB2 PO (16:36)
[2018-08-14] MEDS ORDERED: PROM25TA12 PO (16:36)
[2018-08-14] MEDS ORDERED: DICY1CAP8 PO (16:36)
[2018-08-14] MEDS ORDERED: DICYCLOMINE INJ 20MG/2ML (J0500) IM ONE (16:45)
== END 2018-08-14 17:43 | disposition home or self-care (01) ==
LOC: M ED 12:07
DX: A08.11 Acute gastroenteropathy due to Norwalk agent (principal); I50.9 Heart failure, unspecified; I48.91 Unspecified atrial fibrillation; Z79.899 Other long term (current) drug therapy; Z79.01 Long term (current) use of anticoagulants; Z88.1 Allergy status to other antibiotic agents; Z88.2 Allergy status to sulfonamides; Z88.8 Allergy status to other drugs, medicaments and biological substances; Z91.018 Allergy to other foods
CPT/HCPCS: 74021; 80048; 80076; 83690; 85025; 96361; 96372; 96374; 99284; J0500

== ENCOUNTER 2018-08-20 20:20 | Emergency (ER) | payer OTHER ==
[~2018-08-20] VITALS: Ht 157.5 cm; Wt 100.0 kg
[~2018-08-20 20:20] MED LIST changes: +METO5TAB2 PO
[2018-08-20 21:29] LABS: BASO % 0.4 % (0.0-1.0); EOS # 0.1 10^3/uL (0.0-0.50); EOS % 1.7 % (0.0-3.0); HEMATOCRIT 40.8 % (36.0-47.0); HEMOGLOBIN 13.6 g/dl (12.0-15.5); LYMPH # 2.3 10^3/uL (1.5-4.5); LYMPH % 42.2 % (24.0-44.0); MEAN CORPUSCULAR HEMOGLOBIN 30.8 pg (27.0-33.0); MEAN CORPUSCULAR HGB CONC 33.3 g/dl (32.0-36.5); MEAN CORPUSCULAR VOLUME 92.3 fl (80.0-96.0); MONO # 0.5 10^3/uL (0.0-0.8); NEUTROPHILS # 2.5 10^3/uL (1.8-7.7); NEUTROPHILS % 46.3 % (36.0-66.0); PLATELET COUNT, AUTOMATED 195 10^3/uL (150-450); RED BLOOD COUNT 4.42 10^6/uL (4.00-5.40); WHITE BLOOD COUNT 5.3 10^3/uL (4.0-10.0)
[2018-08-20 21:43] LABS: INR 0.92; PROTHROMBIN TIME 12.5 SECONDS (12.1-14.4)
[2018-08-20 21:46] LABS: D-DIMER QUANT 580.54 ng/ml (<500)
[2018-08-20 21:59] LABS: BLOOD UREA NITROGEN 8 MG/DL (7-18); CALCIUM LEVEL 8.8 MG/DL (8.5-10.1); CARBON DIOXIDE LEVEL 30 MEQ/L (21-32); CHLORIDE LEVEL 106 MEQ/L (98-107); CK-MB VALUE MASS < 1.0 NG/ML (<3.6); CPK CREATINE PHOSPHOKINASE 110 U/L (26-192); CREATININE FOR GFR 0.89 MG/DL (0.55-1.30); GLOMERULAR FILTRATION RATE > 60.0 (>51); GLUCOSE, FASTING 85 MG/DL (70-100); MAGNESIUM LEVEL 2.2 MG/DL (1.8-2.4); MB/CK RELATIVE INDEX 0.91 (< OR =4); POTASSIUM SERUM 3.9 MEQ/L (3.5-5.1); SODIUM LEVEL 142 MEQ/L (136-145); TROPONIN I < 0.02 NG/ML (< 0.10)
--- NOTE | 2018-08-20 22:04 | REPVR ---
EXAM: CT Head Without Contrast EXAM DATE/TIME: 08/20/2018 9:33 PM CLINICAL HISTORY: 53 years old, female; Signs and symptoms; Syncope and collapse TECHNIQUE: Imaging protocol: Axial computed tomography images of the head without contrast. Radiation optimization: All CT scans at this facility use at least one of these dose optimization techniques: automated exposure control; mA and/or kV adjustment per patient size (includes targeted exams where dose is matched to clinical indication); or iterative reconstruction. COMPARISON: CT Head without contrast 07/19/2018 7:49 PM FINDINGS: Brain: Normal. No hemorrhage. Unremarkable white matter. No mass effect. Ventricles: Normal. No ventriculomegaly. Bones/joints: Unremarkable. No acute fracture. Sinuses: Visualized sinuses are unremarkable. No fluid levels. Mastoid air cells: Visualized mastoid air cells are well aerated. No mastoid effusion. Soft tissues: Unremarkable. IMPRESSION: No acute intracranial abnormality. Electronically signed by: Giovanni Khanna On 08/20/2018 22:03:36 PM
--- NOTE | 2018-08-20 22:07 | REPVR ---
EXAM: CT Cervical Spine Without Contrast EXAM DATE/TIME: 08/20/2018 9:33 PM CLINICAL HISTORY: 53 years old, female; Neck pain; Additional info: Syncope TECHNIQUE: Imaging protocol: Axial computed tomography images of the cervical spine without contrast. Coronal and sagittal reformatted images were created and reviewed. Radiation optimization: All CT scans at this facility use at least one of these dose optimization techniques: automated exposure control; mA and/or kV adjustment per patient size (includes targeted exams where dose is matched to clinical indication); or iterative reconstruction. COMPARISON: No relevant prior studies available. FINDINGS: Vertebrae: No acute fracture. Normal alignment. Discs/Spinal canal/Neural foramina: Mild foraminal narrowing on the right C3, mild foraminal narrowing on the right at C4, and mild foraminal narrowing on the right at C5 secondary to uncinate joint hypertrophic change. Soft tissues: Unremarkable. Lungs: Lung apices are normal. IMPRESSION: Mild degenerative spondylosis. No acute findings. Electronically signed by: Giovanni Khanna On 08/20/2018 22:06:44 PM
[2018-08-20] MEDS ORDERED: PERCOCET 5MG/325MG TAB PO ONE (22:30)
[2018-08-20] MEDS ORDERED: ISOVUE-370 76% 100ML VIAL (Q9967) As Ordered ONE (22:41)
--- NOTE | 2018-08-20 23:23 | REPVR ---
EXAM: CT Angiography Chest With Contrast EXAM DATE/TIME: 08/20/2018 11:07 PM CLINICAL HISTORY: 53 years old, female; Chest pain; Additional info: Syncope TECHNIQUE: Imaging protocol: Axial computed tomographic angiography images of the chest with intravenous contrast using CT angiography protocol. Coronal and sagittal reformatted images were created and reviewed. 3D rendering: MIP reconstructed images were created and reviewed. Radiation optimization: All CT scans at this facility use at least one of these dose optimization techniques: automated exposure control; mA and/or kV adjustment per patient size (includes targeted exams where dose is matched to clinical indication); or iterative reconstruction. Contrast material: ISOVUE 370; Contrast volume: 100 ml; Contrast route: IV; COMPARISON: CT ANGIO CHEST 07/21/2018 10:28 PM FINDINGS: Pulmonary arteries: There are no pulmonary emboli. Aorta: There is no aortic dissection or aneurysm. Lungs: Calcified granuloma right upper, right, and left lower lobes measuring up to 8 mm. Bilateral geographic groundglass opacities may represent atelectasis or mosaic perfusion. Suboptimal inspiratory effort. Pleural space: Unremarkable. No pneumothorax. No pleural effusion. Heart: Unremarkable. No cardiomegaly. No pericardial effusion. Gallbladder and bile ducts: Cholecystectomy. Lymph nodes: Unremarkable. No enlarged lymph nodes. Bones/joints: The spine demonstrates mild degenerative changes. Soft tissues: Unremarkable. IMPRESSION: 1. Bilateral geographic groundglass opacities may represent atelectasis or mosaic perfusion. 2. There is no aortic dissection or aneurysm. 3. There are no pulmonary emboli. Electronically signed by: Giovanni Khanna On 08/20/2018 23:23:08 PM
--- NOTE | 2018-08-20 23:26 | REPVR ---
EXAM: CT Abdomen and Pelvis With Contrast EXAM DATE/TIME: 08/20/2018 11:07 PM CLINICAL HISTORY: 53 years old, female; Abdominal pain; Additional info: Syncope TECHNIQUE: Imaging protocol: Axial computed tomography images of the abdomen and pelvis with intravenous contrast. Coronal and sagittal reformatted images were created and reviewed. Radiation optimization: All CT scans at this facility use at least one of these dose optimization techniques: automated exposure control; mA and/or kV adjustment per patient size (includes targeted exams where dose is matched to clinical indication); or iterative reconstruction. Contrast material: ISOVUE 370; Contrast volume: 100 ml; Contrast route: IV; COMPARISON: CT ABD PELVIS W/O CONTRAST 07/16/2018 10:49 PM FINDINGS: Mediastinum: A small hiatal hernia is present. ABDOMEN: Liver: There is a diffuse decrease in hepatic parenchymal density, consistent with fatty infiltration. Gallbladder and bile ducts: There has been a cholecystectomy. Pancreas: Normal. No ductal dilation. Spleen: Borderline splenomegaly. Adrenals: Normal. No mass. Kidneys and ureters: Normal. No hydronephrosis. Stomach and bowel: Normal. No obstruction. No mucosal thickening. Appendix: No evidence of appendicitis. PELVIS: Bladder: Unremarkable as visualized. Reproductive: There has been a hysterectomy. ABDOMEN and PELVIS: Intraperitoneal space: Normal. No free air. No significant fluid collection. Bones/joints: No acute fracture. No dislocation. Soft tissues: Right inguinal hernia. Vasculature: Normal. No abdominal aortic aneurysm. Lymph nodes: Normal. No enlarged lymph nodes. IMPRESSION: 1. There is a diffuse decrease in hepatic parenchymal density, consistent with fatty infiltration. 2. There has been a cholecystectomy. 3. There has been a hysterectomy. 4. Small hiatal hernia. Electronically signed by: Giovanni Khanna On 08/20/2018 23:25:52 PM
[2018-08-20] MEDS ORDERED: GI COCKTAIL 50ML BTL(HYOSCYAMINE/MAALOX/LIDOCAINE VISCOUS)(1:3:1) PO ONE (23:45)
[2018-08-20] MEDS ORDERED: PROT1TAB2 PO (23:57)
[2018-08-21 00:25] VITALS: BP 118/58
--- NOTE | 2018-08-21 08:54 | REP ---
CHEST, PORTABLE: AP portable view of the chest is performed. There is no acute infiltrate. The heart is mildly enlarged. The mediastinal silhouette is unchanged since the prior study of 08/14/2018. Calcified granuloma is seen in the left lung base. IMPRESSION: Mild cardiomegaly. No acute infiltrate. Electronically Signed by Jose Martinez MD 08/21/2018 04:34 P
--- NOTE | 2018-08-21 13:41 | ED PDOC ---
Post-Departure Follow-Up corey schneider faxed formal report of cta chest for fu Brittney Connelly MD Aug 21, 2018 13:41
--- NOTE | 2018-08-21 16:12 | ECGEPIP ---
[facility] - ED Test Date: 2018-08-20 Pat Name: SMITH VIVEROS Department: Room: - Gender: Female Physical Ther: : 1965 Requested By: Barrie Kline Order Number: [id number] Reading MD: Mouna Smith Measurements Intervals [place] Rate: 88 P: 30 [place]: 159 QRS: 1 QRSD: 80 T: 31 QT: 336 QTc: 408 Interpretive Statements SINUS RHYTHM POSSIBLE PRIOR INFERIOR INFARCT NSTTW abnormalities INCREASED RATE 08/04/18 Electronically Signed on 08-21-2018 16:12:32 EDT by Mouna Smith
== END 2018-08-21 00:50 | disposition home or self-care (01) ==
LOC: M ED 20:20
DX: R55 Syncope and collapse (principal); K29.70 Gastritis, unspecified, without bleeding; R53.81 Other malaise; I48.91 Unspecified atrial fibrillation; I10 Essential (primary) hypertension; F44.5 Conversion disorder with seizures or convulsions; Z86.19 Personal history of other infectious and parasitic diseases; Z87.891 Personal history of nicotine dependence; Z86.69 Personal history of other diseases of the nervous system and sense organs; Z79.899 Other long term (current) drug therapy; Z79.01 Long term (current) use of anticoagulants; Z88.1 Allergy status to other antibiotic agents; Z88.2 Allergy status to sulfonamides; Z88.8 Allergy status to other drugs, medicaments and biological substances; Z91.013 Allergy to seafood; Z86.718 Personal history of other venous thrombosis and embolism
CPT/HCPCS: 70450; 71045; 71275; 72125; 74177; 80048; 82550; 82553; 83605; 83735; 84443; 85025; 85379; 85610; 85730; 93005; 93041; 94760; 99284; Q9967

== ENCOUNTER 2018-08-22 15:42 | Emergency (ER) | payer OTHER ==
[~2018-08-22] VITALS: Ht 157.5 cm; Wt 100.0 kg
[2018-08-22] MEDS ORDERED: GI COCKTAIL 50ML BTL(HYOSCYAMINE/MAALOX/LIDOCAINE VISCOUS)(1:3:1) PO ONE (16:30)
[2018-08-22 16:43] LABS: BASO % 0.2 % (0.0-1.0); EOS # 0.1 10^3/uL (0.0-0.50); EOS % 1.5 % (0.0-3.0); HEMATOCRIT 40.3 % (36.0-47.0); HEMOGLOBIN 13.3 g/dl (12.0-15.5); LYMPH # 1.7 10^3/uL (1.5-4.5); LYMPH % 30.8 % (24.0-44.0); MONO # 0.4 10^3/uL (0.0-0.8); MONO % 7.5 % (0.0-5.0); NEUTROPHILS # 3.2 10^3/uL (1.8-7.7); NEUTROPHILS % 59.4 % (36.0-66.0); PLATELET COUNT, AUTOMATED 187 10^3/uL (150-450); RED BLOOD COUNT 4.43 10^6/uL (4.00-5.40); WHITE BLOOD COUNT 5.5 10^3/uL (4.0-10.0)
[2018-08-22 16:53] LABS: INR 0.96; PROTHROMBIN TIME 12.9 SECONDS (12.1-14.4)
[2018-08-22] MEDS: ASPIRIN 81 MG CHEW TABLET PO ONE ×2 (16:57→16:58)
--- NOTE | 2018-08-22 16:57 | REP ---
Portable chest x-ray: Single view. History: Chest pain. Comparison study: August 20, 2018. Findings: EKG monitoring electrodes overlie the chest. Lungs are symmetrically aerated and free of focal infiltrate. There is a granulomatous nodule again noted in the left lower lobe. This is seen to be calcified on the August 20, 2018 CT study of the chest. Heart is not enlarged. Pulmonary vasculature is not increased. Impression: No active disease. Electronically Signed by Dominic Chao MD 08/23/2018 02:59 P
[2018-08-22 17:14] LABS: ALT/SGPT 36 U/L (12-78); BILIRUBIN,DIRECT < 0.1 MG/DL (0.0-0.2); BILIRUBIN,TOTAL 0.3 MG/DL (0.2-1.0); BLOOD UREA NITROGEN 9 MG/DL (7-18); CALCIUM LEVEL 8.5 MG/DL (8.5-10.1); CARBON DIOXIDE LEVEL 29 MEQ/L (21-32); CHLORIDE LEVEL 109 MEQ/L (98-107); CK-MB VALUE MASS < 1.0 NG/ML (<3.6); CPK CREATINE PHOSPHOKINASE 127 U/L (26-192); CREATININE FOR GFR 0.95 MG/DL (0.55-1.30); GLOMERULAR FILTRATION RATE > 60.0 (>51); GLUCOSE, FASTING 86 MG/DL (70-100); MB/CK RELATIVE INDEX 0.79 (< OR =4); POTASSIUM SERUM 3.9 MEQ/L (3.5-5.1); SODIUM LEVEL 143 MEQ/L (136-145); TOTAL PROTEIN 6.3 GM/DL (6.4-8.2); TROPONIN I < 0.02 NG/ML (< 0.10)
[2018-08-22 17:30] VITALS: BP 133/76
--- NOTE | 2018-08-23 13:16 | ECGEPIP ---
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
[2018-08-23] MEDS ORDERED: OXYC1TAB23 PO (22:51)
== END 2018-08-22 17:56 | disposition home or self-care (01) ==
LOC: EDBD 15:42 → M ED 15:42
DX: R07.89 Other chest pain (principal); I10 Essential (primary) hypertension; E11.9 Type 2 diabetes mellitus without complications; E78.5 Hyperlipidemia, unspecified; G43.909 Migraine, unspecified, not intractable, without status migrainosus; Z79.899 Other long term (current) drug therapy; Z79.01 Long term (current) use of anticoagulants; Z88.1 Allergy status to other antibiotic agents; Z88.2 Allergy status to sulfonamides; Z88.8 Allergy status to other drugs, medicaments and biological substances; Z91.018 Allergy to other foods

== ENCOUNTER 2018-08-23 16:28 | Emergency (ER) | payer OTHER ==
[~2018-08-23] VITALS: Ht 157.5 cm; Wt 100.0 kg
--- NOTE | 2018-08-23 17:06 | REP ---
Chest x-ray,: Portable exam single view. History: Chest pain. Comparison chest x-ray: August 22, 2018. Findings: There is a calcified granuloma in the left lower lobe again noted. The lungs are well inflated and clear otherwise. Pleural angles are sharp. Heart size is normal. Pulmonary vasculature is not increased. Impression: No active disease. Electronically Signed by Dominic Chao MD 08/23/2018 04:58 P
[2018-08-23 17:38] LABS: BASO % 0.2 % (0.0-1.0); EOS # 0.1 10^3/uL (0.0-0.50); EOS % 1.3 % (0.0-3.0); HEMATOCRIT 40.8 % (36.0-47.0); HEMOGLOBIN 13.4 g/dl (12.0-15.5); LYMPH # 1.7 10^3/uL (1.5-4.5); LYMPH % 33.3 % (24.0-44.0); MEAN CORPUSCULAR HEMOGLOBIN 30.8 pg (27.0-33.0); MEAN CORPUSCULAR HGB CONC 32.8 g/dl (32.0-36.5); MEAN CORPUSCULAR VOLUME 93.8 fl (80.0-96.0); MONO # 0.4 10^3/uL (0.0-0.8); MONO % 7.1 % (0.0-5.0); NEUTROPHILS % 57.9 % (36.0-66.0); PLATELET COUNT, AUTOMATED 193 10^3/uL (150-450); RED BLOOD COUNT 4.35 10^6/uL (4.00-5.40); WHITE BLOOD COUNT 5.2 10^3/uL (4.0-10.0)
[2018-08-23 17:56] LABS: INR 0.95; PARTIAL THROMBOPLASTIN TIME 28.6 SECONDS (25.4-37.6); PROTHROMBIN TIME 12.8 SECONDS (12.1-14.4)
[2018-08-23 18:13] LABS: ALBUMIN 3.3 GM/DL (3.2-5.2); ALT/SGPT 34 U/L (12-78); BILIRUBIN,DIRECT 0.1 MG/DL (0.0-0.2); BILIRUBIN,TOTAL 0.3 MG/DL (0.2-1.0); BLOOD UREA NITROGEN 13 MG/DL (7-18); CALCIUM LEVEL 8.7 MG/DL (8.5-10.1); CARBON DIOXIDE LEVEL 32 MEQ/L (21-32); CHLORIDE LEVEL 105 MEQ/L (98-107); CK-MB VALUE MASS < 1.0 NG/ML (<3.6); CPK CREATINE PHOSPHOKINASE 143 U/L (26-192); CREATININE FOR GFR 1.05 MG/DL (0.55-1.30); FREE T4 1.04 NG/DL (0.76-1.46); GLOMERULAR FILTRATION RATE 58.4 (>51); GLUCOSE, FASTING 82 MG/DL (70-100); LIPASE 228 U/L (73-393); NT-PRO BNP 16 PG/ML (<125); POTASSIUM SERUM 3.9 MEQ/L (3.5-5.1); SODIUM LEVEL 142 MEQ/L (136-145); TOTAL PROTEIN 6.8 GM/DL (6.4-8.2); TROPONIN I < 0.02 NG/ML (< 0.10)
[2018-08-23] MEDS ORDERED: GI COCKTAIL 50ML BTL(HYOSCYAMINE/MAALOX/LIDOCAINE VISCOUS)(1:3:1) PO ONE (18:15)
[2018-08-23] MEDS ORDERED: oxyCODONE 5MG TAB PO ONE (18:30)
[2018-08-23] MEDS ORDERED: ISOVUE-370 76% 100ML VIAL (Q9967) As Ordered ONE (19:49)
[2018-08-23 21:43] LABS: CK-MB VALUE MASS < 1.0 NG/ML (<3.6); CPK CREATINE PHOSPHOKINASE 133 U/L (26-192); MB/CK RELATIVE INDEX 0.75 (< OR =4); TROPONIN I < 0.02 NG/ML (< 0.10)
--- NOTE | 2018-08-23 22:16 | REPVR ---
EXAM: CT Abdomen and Pelvis With Contrast EXAM DATE/TIME: 08/23/2018 8:57 PM CLINICAL HISTORY: 53 years old, female; Abdominal pain; Generalized TECHNIQUE: Imaging protocol: Axial computed tomography images of the abdomen and pelvis with intravenous contrast. Coronal and sagittal reformatted images were created and reviewed. Radiation optimization: All CT scans at this facility use at least one of these dose optimization techniques: automated exposure control; mA and/or kV adjustment per patient size (includes targeted exams where dose is matched to clinical indication); or iterative reconstruction. Contrast material: ISOVUE 370; Contrast volume: 100 ml; Contrast route: IV; COMPARISON: CT ABD/PEL W/IV CONTRAST ONLY 08/20/2018 10:47 PM FINDINGS: Lungs: Calcified granulomas in the lungs. Mediastinum: Small hiatal hernia. ABDOMEN: Liver: Normal. No mass. Gallbladder and bile ducts: Status post cholecystectomy. Pancreas: Normal. No ductal dilation. Spleen: Normal. No splenomegaly. Adrenals: Normal. No mass. Kidneys and ureters: Bilateral kidneys are unremarkable. Normal excretion of contrast from bilateral kidneys. Stomach and bowel: Scattered colonic diverticula without CT evidence of diverticulitis. Appendix: Normal appendix. PELVIS: Bladder: Unremarkable as visualized. Reproductive: Status post hysterectomy. ABDOMEN and PELVIS: Intraperitoneal space: Normal. No free air. No significant fluid collection. Bones/joints: Mild degenerative changes. Soft tissues: Bilateral fat-containing inguinal hernias. Bilateral fat-containing inguinal hernias. Vasculature: Normal. No abdominal aortic aneurysm. Lymph nodes: Normal. No enlarged lymph nodes. IMPRESSION: No acute finding. Electronically signed by: Nayla Gruber On 08/23/2018 22:16:09 PM
[2018-08-23] MEDS: MORPHINE 2 MG/ML 1ML SYRINGE (J2270) IV PRN ×2 (22:19→22:51)
--- NOTE | 2018-08-23 22:22 | REPVR ---
EXAM: CT Angiography Neck With Contrast EXAM DATE/TIME: 08/23/2018 8:57 PM CLINICAL HISTORY: 53 years old, female; Other: Neck pain TECHNIQUE: Imaging protocol: Axial computed tomographic angiography images of the neck with intravenous contrast using CT angiography protocol. Coronal and sagittal reformatted images were created and reviewed. 3D rendering: MIP reconstructed images were created and reviewed. Radiation optimization: All CT scans at this facility use at least one of these dose optimization techniques: automated exposure control; mA and/or kV adjustment per patient size (includes targeted exams where dose is matched to clinical indication); or iterative reconstruction. Contrast material: ISOVUE 370; Contrast volume: 100 ml; Contrast route: IV; COMPARISON: CT Spine,cervical w/o contrast 08/20/2018 9:13 PM FINDINGS: VASCULATURE: Right common carotid artery: Unremarkable. No stenosis. No dissection or occlusion. Right internal carotid artery: Unremarkable. No stenosis in the extracranial segment. No dissection or occlusion. Right external carotid artery: Unremarkable. No occlusion or stenosis. Right vertebral artery: Unremarkable. No stenosis. No dissection or occlusion. Left common carotid artery: Unremarkable. No stenosis. No dissection or occlusion. Left internal carotid artery: Unremarkable. No stenosis in the extracranial segment. No dissection or occlusion. Left external carotid artery: Unremarkable. No stenosis. No dissection or occlusion. Left vertebral artery: Unremarkable. No stenosis. No dissection or occlusion. NECK: Bones/joints: No acute fracture. Soft tissues: Normal. No significant soft tissue swelling. IMPRESSION: Suboptimal study secondary to poor opacification of the carotid vessels. Given limitation of the study, no acute finding is seen. COMMENT: Reference per NASCET criteria for degree of stenosis: Mild: less than 50% stenosis. Moderate: 50-69% stenosis. Severe: 70-94% stenosis. Near occlusion: 95-99% stenosis. Electronically signed by: Nayla Gruber On 08/23/2018 22:22:25 PM
--- NOTE | 2018-08-23 22:30 | REPVR ---
EXAM: CT Angiography Chest With Contrast EXAM DATE/TIME: 08/23/2018 8:57 PM CLINICAL HISTORY: 53 years old, female; Chest pain; Type not specified TECHNIQUE: Imaging protocol: Axial computed tomographic angiography images of the chest with intravenous contrast using CT angiography protocol. Coronal and sagittal reformatted images were created and reviewed. 3D rendering: MIP reconstructed images were created and reviewed. Radiation optimization: All CT scans at this facility use at least one of these dose optimization techniques: automated exposure control; mA and/or kV adjustment per patient size (includes targeted exams where dose is matched to clinical indication); or iterative reconstruction. Contrast material: ISOVUE 370; Contrast volume: 100 ml; Contrast route: IV; COMPARISON: CT ANGIO CHEST 08/20/2018 10:47 PM FINDINGS: Pulmonary arteries: Suboptimal study for evaluation of a pulmonary embolism secondary to delayed imaging. Poor opacification of the pulmonary arteries. Given limitation of the contrast opacification, no obvious large filling defect is seen to suggest pulmonary embolism. Aorta: Unremarkable. No aortic aneurysm. No aortic dissection. Lungs: . Mild ground glass densities likely dependent edema. No focal consolidation to suggest pneumonia. Low lung volumes. Pleural space: Unremarkable. No pneumothorax. No pleural effusion. Heart: Unremarkable. No cardiomegaly. No pericardial effusion. Lymph nodes: Unremarkable. No enlarged lymph nodes. Bones/joints: Degenerative changes. Soft tissues: Unremarkable. IMPRESSION: Suboptimal study for evaluation of a pulmonary embolism secondary to delayed imaging. Poor opacification of the pulmonary arteries. Given limitation of the contrast opacification, no obvious large filling defect is seen to suggest pulmonary embolism. Electronically signed by: Nayla Gruber On 08/23/2018 22:30:15 PM
[2018-08-23 22:46] VITALS: BP 114/56
[2018-08-23] MEDS ORDERED: OXYC1TAB23 PO (22:51)
--- NOTE | 2018-08-24 05:51 | ECGEPIP ---
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
--- NOTE | 2018-08-24 07:15 | ECGEPIP ---
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
--- NOTE | 2018-08-26 12:28 | ED PDOC ---
Post-Departure Follow-Up cta chest, ct abd/p faxed to [facility] for fu Brittney Connelly MD Aug 26, 2018 12:28
== END 2018-08-23 23:05 | disposition home or self-care (01) ==
LOC: M ED 16:28
DX: R07.89 Other chest pain (principal); R11.2 Nausea with vomiting, unspecified; R06.02 Shortness of breath; E11.9 Type 2 diabetes mellitus without complications; I10 Essential (primary) hypertension; E78.5 Hyperlipidemia, unspecified; F44.5 Conversion disorder with seizures or convulsions; Z86.69 Personal history of other diseases of the nervous system and sense organs; Z86.19 Personal history of other infectious and parasitic diseases; Z88.8 Allergy status to other drugs, medicaments and biological substances; Z88.1 Allergy status to other antibiotic agents; Z88.2 Allergy status to sulfonamides; Z91.013 Allergy to seafood; Z79.899 Other long term (current) drug therapy; Z79.01 Long term (current) use of anticoagulants
CPT/HCPCS: 70498; 71045; 71275; 74177; 80048; 80076; 82550; 82553; 83690; 83880; 84439; 84443; 85025; 85610; 85730; 93005; 93041; 94760; 96374; 96376; 99285; J2270; Q9967

== ENCOUNTER 2018-08-29 14:49 | Emergency (ER) | payer OTHER ==
[~2018-08-29] VITALS: Ht 157.5 cm; Wt 100.0 kg
[~2018-08-29 14:49] MED LIST changes: +OXYC1TAB23 PO
[2018-08-29 16:03] LABS: CK-MB VALUE MASS < 1.0 NG/ML (<3.6); CPK CREATINE PHOSPHOKINASE 113 U/L (26-192); MB/CK RELATIVE INDEX 0.88 (< OR =4); TROPONIN I < 0.02 NG/ML (< 0.10)
[2018-08-29 16:27] LABS: CALCIUM LEVEL 9.3 MG/DL (8.5-10.1)
[2018-08-29] MEDS ORDERED: METHOCARBAMOL 500 MG TAB PO ONE (16:30)
[2018-08-29 18:00] VITALS: BP 120/63
[2018-08-29] MEDS ORDERED: ROBA500T PO (18:03)
--- NOTE | 2018-08-29 21:51 | ECGEPIP ---
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
== END 2018-08-29 18:10 | disposition home or self-care (01) ==
LOC: M ED 14:49
DX: G89.29 Other chronic pain (principal); R07.89 Other chest pain; I48.91 Unspecified atrial fibrillation; I50.9 Heart failure, unspecified; I25.2 Old myocardial infarction; G43.909 Migraine, unspecified, not intractable, without status migrainosus; Z79.01 Long term (current) use of anticoagulants; Z79.899 Other long term (current) drug therapy; Z88.0 Allergy status to penicillin; Z88.1 Allergy status to other antibiotic agents; Z88.8 Allergy status to other drugs, medicaments and biological substances; Z91.013 Allergy to seafood

== ENCOUNTER 2018-08-31 13:46 | Emergency (ER) | payer OTHER ==
[~2018-08-31] VITALS: Ht 157.5 cm; Wt 110.0 kg
--- NOTE | 2018-08-31 16:02 | REP ---
CT of the brain without IV contrast: Comparison is 08/20/2018. There is no subdural or epidural hematoma. There is no intracranial hemorrhage otherwise. There is no edema, mass effect or midline shift. Ventricles are normal size and midline. The visualized paranasal sinuses and mastoid air cells are clear. Impression: Essentially negative CT study of the brain. There is no interval change. Electronically Signed by Jose Castillo MD 08/31/2018 03:53 P
--- NOTE | 2018-08-31 16:30 | REP ---
Maxillofacial CT without IV contrast: There is no nasal bone fracture. There is no orbit fracture. The lower lobes and lenses are unremarkable. Retrobulbar orbits are unremarkable. There is no zygoma fracture. No maxilla or mandible fracture. The paranasal sinuses are unremarkable. 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 Impression: No facial bone fracture. Electronically Signed by Jose Castillo MD 08/31/2018 04:20 P
[2018-08-31 17:09] VITALS: BP 127/71
== END 2018-08-31 17:11 | disposition home or self-care (01) ==
LOC: M ED 13:46
DX: S00.83XA Contusion of other part of head, initial encounter (principal); W06.XXXA Fall from bed, initial encounter; Y92.013 Bedroom of single-family (private) house as the place of occurrence of the external cause; J44.9 Chronic obstructive pulmonary disease, unspecified; I25.2 Old myocardial infarction; I48.91 Unspecified atrial fibrillation; F33.9 Major depressive disorder, recurrent, unspecified; F41.9 Anxiety disorder, unspecified; M79.7 Fibromyalgia; Z79.899 Other long term (current) drug therapy; Z79.01 Long term (current) use of anticoagulants; Z88.1 Allergy status to other antibiotic agents; Z88.2 Allergy status to sulfonamides; Z88.8 Allergy status to other drugs, medicaments and biological substances; Z91.018 Allergy to other foods

== ENCOUNTER 2018-09-08 20:17 | Emergency (ER) | payer OTHER ==
[~2018-09-08] VITALS: Ht 157.5 cm; Wt 113.6 kg
[~2018-09-08 20:17] MED LIST changes: -OMEP20CA3 PO; +OMEP20CA4 PO
[2018-09-08 20:18] VITALS: BP 140/97
[2018-09-08] MEDS ORDERED: NORCO, ANEXSIA 5/325MG TABLET (HYDROcodone/ACETAMINOPHEN) PO ONE (22:30)
--- NOTE | 2018-09-09 07:22 | REP ---
Clinical: Trauma. Technique: AP, lateral, bilateral oblique views of the right ankle. Findings: Soft tissue swelling appreciated. No acute fracture or dislocation. Old injury involving the lateral malleolus suggested. Ankle mortise intact. Impression: 1. Soft tissue swelling and evidence for old lateral malleolar fracture. 2. No acute fracture or dislocation. Electronically Signed by Fletcher Serna MD 09/09/2018 07:14 A
== END 2018-09-08 22:42 | disposition home or self-care (01) ==
LOC: M ED 20:17
DX: S93.491A Sprain of other ligament of right ankle, initial encounter (principal); X50.9XXA Other and unspecified overexertion or strenuous movements or postures, initial encounter; Y92.018 Other place in single-family (private) house as the place of occurrence of the external cause; I11.0 Hypertensive heart disease with heart failure; I50.9 Heart failure, unspecified; J44.9 Chronic obstructive pulmonary disease, unspecified; E78.5 Hyperlipidemia, unspecified; E05.90 Thyrotoxicosis, unspecified without thyrotoxic crisis or storm; I48.91 Unspecified atrial fibrillation; R56.9 Unspecified convulsions; G47.30 Sleep apnea, unspecified; G43.909 Migraine, unspecified, not intractable, without status migrainosus; Z79.899 Other long term (current) drug therapy; Z79.01 Long term (current) use of anticoagulants; Z88.1 Allergy status to other antibiotic agents; Z88.2 Allergy status to sulfonamides; Z88.8 Allergy status to other drugs, medicaments and biological substances; Z91.018 Allergy to other foods; Z87.891 Personal history of nicotine dependence

== ENCOUNTER 2018-09-16 21:03 | Emergency (ER) | payer OTHER ==
[~2018-09-16] VITALS: Ht 157.5 cm; Wt 110.5 kg
[2018-09-17] MEDS ORDERED: METH4TAB28 PO (01:39)
[2018-09-17] MEDS ORDERED: NORCO, ANEXSIA 5/325MG TABLET (HYDROcodone/ACETAMINOPHEN) PO ONE (01:45)
[2018-09-17 01:50] VITALS: BP 179/101
== END 2018-09-17 01:52 | disposition home or self-care (01) ==
LOC: M ED 21:03
DX: M54.32 Sciatica, left side (principal); Z79.899 Other long term (current) drug therapy; Z86.19 Personal history of other infectious and parasitic diseases; Z87.891 Personal history of nicotine dependence; Z88.1 Allergy status to other antibiotic agents; Z88.8 Allergy status to other drugs, medicaments and biological substances

== ENCOUNTER → 2018-09-18 | Outpatient (CLI) | payer OTHER ==
[~2018-09-18] MED LIST changes: +METH1TAB40; +METH4TAB28 PO
--- NOTE | 2018-09-18 21:10 | REP ---
MRI LEFT SHOULDER: TECHNIQUE: Axial T2 fat sat, coronal oblique T1, T2 fat sat, post arthrogram axial T1 fat sat, proton density, coronal oblique T1 fat sat, T2 sat, sagittal oblique T2 fat sat, ABER T1 fat sat. The supraspinatus tendon demonstrates mild ill-defined high signal compatible with mild tendinopathy/tendinitis. No rotator cuff tendon tear is seen. There are mild hypertrophic degenerative changes of acromioclavicular joint with subchondral marrow edema. There is downward sloping of the acromion which appears to be type 2. Biceps tendon is within the bicipital groove with mild surrounding fluid. There is no Hill-Sachs deformity. The deltoid muscle demonstrates no abnormal signal. There is a diffuse SLAP tear which undermines the biceps labral complex. The other portions of labrum demonstrate no definite tear. Subchondral cystic changes are seen of the superolateral humeral head. There is a small joint effusion. There is no paralabral cyst. There is mild chondromalacia of the glenohumeral joint. IMPRESSION: Extensive SLAP tear undermines the biceps labral complex. Supraspinatus tendinopathy without evidence of rotator cuff tear. Hypertrophic degenerative changes acromioclavicular joint with downward sloping of the acromion. Electronically Signed by Jose Martinez MD 09/20/2018 12:58 P
== END ==
LOC: M RAD 16:52
PROVIDERS: ATTEND Orthopaedic Surgery Sports Medicine
DX: M19.012 Primary osteoarthritis, left shoulder (principal); S46.202A Unspecified injury of muscle, fascia and tendon of other parts of biceps, left arm, initial encounter; X58.XXXA Exposure to other specified factors, initial encounter; Y92.9 Unspecified place or not applicable

== ENCOUNTER 2018-09-20 16:41 | Observation (INO) | payer OTHER ==
[~2018-09-20] VITALS: Ht 157.5 cm; Wt 243.0 kg
[~2018-09-20 16:41] MED LIST changes: -METH1TAB40
--- NOTE | 2018-09-20 17:33 | REPVR ---
EXAM: CT Head Without Contrast EXAM DATE/TIME: 09/20/2018 5:11 PM CLINICAL HISTORY: 53 years old, female; Injury or trauma; Fall; Initial encounter; Blunt trauma (contusions or hematomas); Consciousness not specified TECHNIQUE: Imaging protocol: Axial computed tomography images of the head without contrast. Radiation optimization: All CT scans at this facility use at least one of these dose optimization techniques: automated exposure control; mA and/or kV adjustment per patient size (includes targeted exams where dose is matched to clinical indication); or iterative reconstruction. COMPARISON: CT Head without contrast 08/31/2018 3:23 PM FINDINGS: Brain: Unremarkable. No hemorrhage. No significant white matter disease. No edema. Ventricles: Unremarkable. No ventriculomegaly. Bones/joints: Unremarkable. No acute fracture. Sinuses: Visualized sinuses are unremarkable. No fluid levels. Mastoid air cells: Visualized mastoid air cells are well aerated. No mastoid effusion. Soft tissues: Unremarkable. IMPRESSION: No acute abnormality. Electronically signed by: Chandan Lainez On 09/20/2018 17:32:49 PM
--- NOTE | 2018-09-20 17:38 | REPVR ---
EXAM: CT Cervical Spine Without Contrast EXAM DATE/TIME: 09/20/2018 5:11 PM CLINICAL HISTORY: 53 years old, female; Injury or trauma; Fall; Initial encounter; Blunt trauma TECHNIQUE: Imaging protocol: Axial computed tomography images of the cervical spine without contrast. Coronal and sagittal reformatted images were created and reviewed. Radiation optimization: All CT scans at this facility use at least one of these dose optimization techniques: automated exposure control; mA and/or kV adjustment per patient size (includes targeted exams where dose is matched to clinical indication); or iterative reconstruction. COMPARISON: CT Spine,cervical w/o contrast 08/20/2018 9:13 PM FINDINGS: Limitations: The entirety of the C7 inferior endplate and the C7-T1 disc space are not visualized on this examination. If there is a clinical concern for injury to the cervicothoracic junction, then additional images should be obtained. Vertebrae: No fracture or subluxation is identified. Discs/Spinal canal/Neural foramina: Mild degenerative disc disease and facet arthrosis is present throughout the cervical spine. Other bones/joints: Bone density is normal. Soft tissues: Unremarkable. Lungs: Lung apices are not visualized on this examination. IMPRESSION: 1. No fracture or subluxation identified. 2. The entirety of the C7 inferior endplate and the C7-T1 disc space are not visualized on this examination. If there is a clinical concern for injury to the cervicothoracic junction, then additional images should be obtained. Electronically signed by: Chandan Lainez On 09/20/2018 17:37:44 PM
--- NOTE | 2018-09-20 18:40 | REP ---
Portable chest x-ray: Single view. History: Syncope. Comparison study: August 23, 2018. Findings: EKG monitoring electrodes overlie the chest. There is a granulomatous calcification again noted in the left base and another in the right perihilar region. No infiltrate is seen. Heart is not enlarged. Pleural angles are sharp. No bony abnormality is seen. Impression: Old granulomatous changes. No active disease. Electronically Signed by Dominic Chao MD 09/20/2018 06:31 P
[2018-09-20 19:48] LABS: BASO % 0.3 % (0.0-1.0); EOS # 0.1 10^3/uL (0.0-0.50); EOS % 1.2 % (0.0-3.0); HEMATOCRIT 40.3 % (36.0-47.0); HEMOGLOBIN 13.4 g/dl (12.0-15.5); LYMPH % 34.3 % (24.0-44.0); MEAN CORPUSCULAR HEMOGLOBIN 30.9 pg (27.0-33.0); MEAN CORPUSCULAR HGB CONC 33.3 g/dl (32.0-36.5); MEAN CORPUSCULAR VOLUME 93.1 fl (80.0-96.0); MONO # 0.4 10^3/uL (0.0-0.8); MONO % 6.7 % (0.0-5.0); NEUTROPHILS # 3.3 10^3/uL (1.8-7.7); NEUTROPHILS % 57.2 % (36.0-66.0); PLATELET COUNT, AUTOMATED 171 10^3/uL (150-450); RED BLOOD COUNT 4.33 10^6/uL (4.00-5.40); WHITE BLOOD COUNT 5.8 10^3/uL (4.0-10.0)
[2018-09-20 19:58] LABS: INR 0.97; PROTHROMBIN TIME 12.6 SECONDS (11.8-14.0)
[2018-09-20 19:59] LABS: PARTIAL THROMBOPLASTIN TIME 24.6 SECONDS (25.0-38.4)
[2018-09-20] MEDS ORDERED: ACETAMINOPHEN TAB 650MG DOSE (2X325MG) PO ONE (20:15)
[2018-09-20 20:34] LABS: BLOOD UREA NITROGEN 15 MG/DL (7-18); CALCIUM LEVEL 8.7 MG/DL (8.5-10.1); CARBON DIOXIDE LEVEL 26 MEQ/L (21-32); CHLORIDE LEVEL 111 MEQ/L (98-107); CK-MB VALUE MASS < 1.0 NG/ML (<3.6); CPK CREATINE PHOSPHOKINASE 89 U/L (26-192); CREATININE FOR GFR 1.02 MG/DL (0.55-1.30); ETHYL ALCOHOL (ETHANOL) < 0.003 % (0.000-0.010); FREE T4 1.11 NG/DL (0.76-1.46); GLOMERULAR FILTRATION RATE > 60.0 (>51); GLUCOSE, FASTING 81 MG/DL (70-100); MB/CK RELATIVE INDEX 1.12 (< OR =4); POTASSIUM SERUM 3.9 MEQ/L (3.5-5.1); SODIUM LEVEL 143 MEQ/L (136-145); TROPONIN I < 0.02 NG/ML (< 0.10)
[2018-09-20 22:42] LABS: AMPHETAMINES LEVEL URINE NEGATIVE (NEGATIVE); BARBITURATES URINE NEGATIVE (NEGATIVE); BENZODIAZEPINES URINE NEGATIVE (NEGATIVE); CANNABINOIDS URINE NEGATIVE (NEGATIVE); COCAINE METABOLITE URINE NEGATIVE (NEGATIVE); METHADONE URINE NEGATIVE (NEGATIVE); OPIATES URINE NEGATIVE (NEGATIVE); PHENCYCLIDINE URINE NEGATIVE (NEGATIVE)
[2018-09-20] MEDS ORDERED: KETOROLAC 30 MG/ML VIAL (J1885) IV ONE (22:45)
[2018-09-20] MEDS ORDERED: PANT40TA3 PO (23:13)
[2018-09-20] MEDS ORDERED: ACETAMINOPHEN TAB 650MG DOSE (2X325MG) PO PRN (23:45)
[2018-09-20] MEDS: APIXABAN 5 MG TAB (ELIQUIS) PO SCH (23:48)
[2018-09-20] MEDS: PANTOPRAZOLE 40MG TAB (PROTONIX) PO SCH (23:48)
[2018-09-20] MEDS: LISINOPRIL 10 MG TAB PO SCH (23:48)
[2018-09-21 01:30] VITALS: BP 125/64
[2018-09-21] MEDS ORDERED: traMADol 50 MG TAB PO ONE (01:30)
--- NOTE | 2018-09-21 01:48 | HPEPDOC ---
General Date of Admission Sep 20, 2018 at 23:43 Date of Service: Sep 21, 2018 Chief Complaint The patient is a 53-year-old female admitted with a reason for visit of Syncope. History of Present Illness 53-year-old female with a PMHx of HTN, A. fib, Pseudoseizures diagnosed at [facility], vasovagal syncope, anxiety/depression, and chronic lower back pain presents to the ER for a chief complaint of a syncopal episode. The patient states that she was found by her sister [place] The patient's sister states that the patient was laying on the ground and not responding to verbal stimulation for a few minutes. There was no jerking activity, fecal/urinary incontinence. The patient denies recalling any of the aforementioned events and denies having any recent complaint of fevers, chills, chest pain, palpitations, shortness of breath, abdominal pain, or any nausea/vomiting/diarrhea. In the ER, an EKG revealed no acute findings. The patient's lab work was also relatively unremarkable. We will admit the patient for observation. Home Medications Scheduled Apixaban (Eliquis) 5 Mg Tablet, 5 MG PO BID, (Reported) Famotidine (Famotidine) 20 Mg Tablet, 20 MG PO DAILY, (Reported) Lisinopril (Lisinopril) 10 Mg Tablet, 10 MG PO QHS, (Reported) Metoprolol Tartrate (Metoprolol Tartrate) 50 Mg Tablet, 50 MG PO DAILY, (Reported) Pantoprazole Sodium (Pantoprazole Sodium) 40 Mg Tablet.dr, 40 MG PO BID, (Reported) Sucralfate (Sucralfate) 1 Gm Tablet, 1 GM PO BID, (Reported) Scheduled PRN Nitroglycerin (Nitroglycerin) 0.4 Mg Sub, 0.4 MG SL NITRO PRN for CHEST PAIN, (Reported) Allergies Coded Allergies: pregabalin (Verified Allergy, Severe, Angioedema, 07/16/18) clindamycin (Verified Allergy, Intermediate, vomiting swelling, 07/16/18) diclofenac (Verified Allergy, Intermediate, swelling all over body, 07/16/18) shellfish derived (Verified Allergy, Intermediate, hives, 07/16/18) sorbitan esters (Verified Allergy, Unknown, 07/16/18) from zipsoragitation bupropion (Verified Adverse Reaction, Intermediate, increased tremors, 07/16/18) Wellbutin cyclobenzaprine (Verified Adverse Reaction, Intermediate, agitation, 07/16/18) doxycycline (Verified Adverse Reaction, Mild, vomiting, 07/16/18) sulfamethoxazole (Verified Adverse Reaction, Mild, vomiting, 07/16/18) W/trimethopri from bactrim trimethoprim (Verified Adverse Reaction, Mild, VOMITING, 07/16/18) Past Medical History Medical History As noted in HPI. Surgical History 1. cholecystectomy 2. KADIE Social History * Smoker: former Smoker Alcohol: Denies Drugs: denies Review of Systems Other systems 10 point review of systems negative unless otherwise stated in HPI. Physical Examination General Exam: Positive: Alert, Cooperative, No Acute Distress Eye Exam: Positive: PERRLA, Conjunctiva & lids normal, EOMI; Negative: Sclera icteric, Ptosis ENT Exam: Positive: Atraumatic, Mucous membr. moist/pink Neck Exam: Negative: JVD Chest Exam: Positive: Clear to auscultation, Normal air movement Heart Exam: Positive: Rate Normal, Normal S1, Normal S2 Abdomen Exam: Positive: Soft; Negative: Tenderness Extremity Exam: Negative: Tenderness, Swelling Neuro Exam: Positive: Strength at 5/5 X4 ext, Normal Tone, Sensation Intact, Cranial Nerves 3-12 NL Psych Exam: Positive: Oriented x 3 Vital Signs Vital Signs Date Time Temp Pulse Resp B/P (MAP) Pulse Ox O2 Delivery O2 Flow Rate FiO2 09/21/18 01:44 17 09/21/18 00:34 97.2 72 119/57 (77) 94 Room Air Laboratory Data Labs 24H Laboratory Tests 2 09/20/18 19:26: Bedside Glucose (Misc Panel) 87 09/20/18 19:38: Immature Granulocyte % (Auto) 0.3, White Blood Count 5.8, Red Blood Count 4.33, Hemoglobin 13.4, Hematocrit 40.3, Mean Corpuscular Volume 93.1, Mean Corpuscular Hemoglobin 30.9, Mean Corpuscular Hemoglobin Concent 33.3, Red Cell Distribution Width 12.9, Platelet Count 171, Neutrophils (%) (Auto) 57.2, Lymphocytes (%) (Auto) 34.3, Monocytes (%) (Auto) 6.7H, Eosinophils (%) (Auto) 1.2, Basophils (%) (Auto) 0.3, Neutrophils # (Auto) 3.3, Lymphocytes # (Auto) 2.0, Monocytes # (Auto) 0.4, Eosinophils # (Auto) 0.1, Basophils # (Auto) 0.0, Nucleated Red Blood Cells % (auto) 0.0, Prothrombin Time 12.6, Prothromb Time International Ratio 0.97, Activated Partial Thromboplast Time 24.6L, Anion Gap 6L, Glomerular Filtration Rate > 60.0, Blood Urea Nitrogen 15, Creatinine 1.02, Sodium Level 143, Potassium Level 3.9, Chloride Level 111H, Carbon Dioxide Level 26, Calcium Level 8.7, Total Creatine Kinase 89, Magnesium Level 2.0, Creatine Kinase MB < 1.0, Creatine Kinase MB Relative Index 1.12, Troponin I < 0.02, Thyroid Stimulating Hormone (TSH) 2.280, Free Thyroxine 1.11, Ethyl Alcohol Level < 0.003 09/20/18 22:10: Urine Color YELLOW, Urine Appearance CLEAR, Urine pH 5.0, Urine Specific Oto 1.014, Urine Protein NEGATIVE, Urine Glucose (UA) NEGATIVE, Urine Ketones NEGATIVE, Urine Blood NEGATIVE, Urine Nitrite NEGATIVE, Urine Bilirubin NEGATIVE, Urine Urobilinogen 0.2, Urine Leukocyte Esterase NEGATIVE, Urine WBC (Auto) 2, Urine RBC (Auto) 0, Urine Hyaline Casts (Auto) 1, Urine Bacteria (Auto) 1+H, Urine Squamous Epithelial Cells 1, Urine Sperm (Auto) , Urine Amphetamines Screen NEGATIVE, Urine Benzodiazepines Screen NEGATIVE, Urine Opiates Screen NEGATIVE, Urine Methadone Screen NEGATIVE, Urine Barbiturates Screen NEGATIVE, Urine Phencyclidine Screen NEGATIVE, Urine Cocaine Metabolite Screen NEGATIVE, Urine Cannabinoids Screen NEGATIVE CBC/BMP Laboratory Tests 09/20/18 19:38 Red Blood Count 4.33, Mean Corpuscular Volume 93.1, Mean Corpuscular Hemoglobin 30.9, Mean Corpuscular Hemoglobin Concent 33.3, Red Cell Distribution Width 12.9, Neutrophils (%) (Auto) 57.2, Lymphocytes (%) (Auto) 34.3, Monocytes (%) (Auto) 6.7 H, Eosinophils (%) (Auto) 1.2, Basophils (%) (Auto) 0.3, Neutrophils # (Auto) 3.3, Lymphocytes # (Auto) 2.0, Monocytes # (Auto) 0.4, Eosinophils # (Auto) 0.1, Basophils # (Auto) 0.0, Calcium Level 8.7, Total Creatine Kinase 89 Plan / VTE VTE Prophylaxis Ordered?: Yes Plan Plan Episode of Unresponsiveness CT Head and CT cervical spine with no acute findings noted. No focal neurological deficits EKG with no acute changes We will monitor the patient on telemetry History of atrial fibrillation Continue eliquis, metoprolol Hypertension Continue metoprolol, lisinopril History of pseudoseizures, vasovagal syncope Follow-up with neurology as an outpatient GERD Continue PPI YASIR ALEX MD Sep 21, 2018 01:48
[2018-09-21 06:00] VITALS: BP 104/56
[2018-09-21 08:14] LABS: HEMATOCRIT 36.6 % (36.0-47.0); HEMOGLOBIN 12.4 g/dl (12.0-15.5); MEAN CORPUSCULAR HEMOGLOBIN 30.3 pg (27.0-33.0); MEAN CORPUSCULAR HGB CONC 33.9 g/dl (32.0-36.5); MEAN CORPUSCULAR VOLUME 89.5 fl (80.0-96.0); PLATELET COUNT, AUTOMATED 156 10^3/uL (150-450); RED BLOOD COUNT 4.09 10^6/uL (4.00-5.40); WHITE BLOOD COUNT 3.5 10^3/uL (4.0-10.0)
[2018-09-21] MEDS: APIXABAN 5 MG TAB (ELIQUIS) PO SCH ×2 (08:16→20:32)
[2018-09-21] MEDS: PANTOPRAZOLE 40MG TAB (PROTONIX) PO SCH ×2 (08:16→20:32)
[2018-09-21] MEDS: SUCRALFATE 1 GM TAB PO SCH ×4 (08:16→20:32)
[2018-09-21] MEDS: FAMOTIDINE 20 MG TAB PO SCH (08:16)
[2018-09-21] MEDS: METOPROLOL TART 50 MG TAB PO SCH (08:19)
[2018-09-21 08:42] LABS: ALBUMIN 2.8 GM/DL (3.2-5.2); ALT/SGPT 27 U/L (12-78); BILIRUBIN,TOTAL 0.2 MG/DL (0.2-1.0); BLOOD UREA NITROGEN 17 MG/DL (7-18); CALCIUM LEVEL 8.5 MG/DL (8.5-10.1); CARBON DIOXIDE LEVEL 27 MEQ/L (21-32); CHLORIDE LEVEL 110 MEQ/L (98-107); CREATININE FOR GFR 0.88 MG/DL (0.55-1.30); GLOMERULAR FILTRATION RATE > 60.0 (>51); GLUCOSE, FASTING 85 MG/DL (70-100); POTASSIUM SERUM 3.9 MEQ/L (3.5-5.1); SODIUM LEVEL 142 MEQ/L (136-145)
[2018-09-21 09:00] VITALS: BP_SYST 112; BP_SYST 124; BP_SYST 131; BP_DIAS 75; BP_DIAS 85; BP_DIAS 87
[2018-09-21 10:47] VITALS: BP 96/50
[2018-09-21 14:00] VITALS: BP 114/64
[2018-09-21] MEDS ORDERED: IBUPROFEN 400 MG TAB PO PRN (14:00)
[2018-09-21] MEDS: traMADol 50 MG TAB PO PRN ×2 (14:50→23:06)
[2018-09-21] MEDS ORDERED: PROHANCE 279.3MG/ML 15ML VIAL (A9576) As Ordered ONE (17:39)
[2018-09-21] MEDS ORDERED: PROHANCE 279.3MG/ML 5ML VIAL (A9576) As Ordered ONE (17:39)
--- NOTE | 2018-09-21 18:33 | IPNPDOC ---
Text Note Date of Service The patient was seen on 09/21/18. NOTE SUBJECTIVE: Patient examined at bedside. Reports she was sitting and suddenly was unconscious for about 2 minutes and sister woke her up. No shaking of limbs, incontinence, or tongue biting during this. She reports being confused afterwards for 5 minutes, but has not had these sx since admission. Continues to have overall weakness and paresthesias of the left arm and leg. She reports she has paresthesias normally on the left arm for which her PCP has imaged her shoulder concern for impingement, however leg paresthesias new. Denies any lightheadedness dizziness. No fever, chills, chest pain, shortness breath, vomiting. OBJECTIVE PHYSICAL EXAMINATION: VITAL SIGNS: Please see below. GENERAL: Resting comfortably in bed, awake alert oriented speaking in complete sentences no acute distress] HEENT: Moist mucous membranes no elevation in CVP CARDIOVASCULAR: S1 S2 regular no additional heart sounds appreciated. RESPIRATORY: Clear to auscultation bilaterally. ABDOMINAL: Bowel sounds present abdomen soft and non-tender EXTREMITIES: No clubbing cyanosis or edema NEUROLOGICAL: [Spontaneously moves all 4 extremities mild weakness on left upper and lower extremity compared to the right without any drift. PSYCHOLOGICAL: Appropriate LABORATORY DATA, MICROBIOLOGY: Please see below. IMAGING STUDIES: 09/20/[address]: No acute abnormality. 09/20/[address]: 1. No fracture or subluxation identified. 2. The entirety of the C7 inferior endplate and the C7-T1 disc space are not visualized on this examination. If there is a clinical concern for injury to the cervicothoracic junction, then additional images should be obtained. 09/20/2018 CXR:Old granulomatous changes. No active disease. ASSESSMENT AND PLAN: This is a 53-year-old female with history of pseudoseizures and vasovagal syncope, here for a two-minute episode of unresponsiveness. PROBLEMS: 1. Episode of unresponsiveness: This may be yet again be a repeat of her vasovagal syncope versus pseudoseizure, both which she has a history of. No events on telemetry thus far. Will obtain MRI of the head to look for lesions versus possible stroke, although unlikely. Unlikely cardiac in nature, given no cardiac history, no symptoms, and negative cardiac markers. Blood sugars also well controlled. Continue PT, supportive care, orthostatic vitals-which have been negative thus far. 2. Chronic pain/migraines: Continue tramadol and Tylenol. Patient refuses NSAIDs. MRI will help us further assess if there is any underlying cause for the migraine. 3. GERD: Continue Pepcid and Carafate and protonic's. 4. History of AFib: Stable. Continue Eliquis. Rate controlled on BBlocker. 5. Hypertension: Controlled on lisinopril and Lopressor. DVT prophylaxis: chronically on Eliquis DISPOSITION: pending clinical improvement, PT, imaging. Continue monitoring. VS,Fishbone, I+O VS, Fishbone, I+O Laboratory Tests 09/20/18 19:38 Red Blood Count 4.33, Mean Corpuscular Volume 93.1, Mean Corpuscular Hemoglobin 30.9, Mean Corpuscular Hemoglobin Concent 33.3, Red Cell Distribution Width 12.9, Neutrophils (%) (Auto) 57.2, Lymphocytes (%) (Auto) 34.3, Monocytes (%) (Auto) 6.7 H, Eosinophils (%) (Auto) 1.2, Basophils (%) (Auto) 0.3, Neutrophils # (Auto) 3.3, Lymphocytes # (Auto) 2.0, Monocytes # (Auto) 0.4, Eosinophils # (Auto) 0.1, Basophils # (Auto) 0.0, Calcium Level 8.7, Total Creatine Kinase 89 09/21/18 07:15 Red Blood Count 4.09, Mean Corpuscular Volume 89.5, Mean Corpuscular Hemoglobin 30.3, Mean Corpuscular Hemoglobin Concent 33.9, Red Cell Distribution Width 1 3.1, Calcium Level 8.5, Aspartate Amino Transf (AST/SGOT) 19, Alanine Aminotransferase (ALT/SGPT) 27, Alkaline Phosphatase 81, Total Bilirubin 0.2, Total Protein 6.0 L, Albumin 2.8 L Vital Signs Date Time Temp Pulse Resp B/P (MAP) Pulse Ox O2 Delivery O2 Flow Rate FiO2 09/21/18 15:20 20 09/21/18 14:00 97.2 61 114/64 (81) 97 09/21/18 00:34 Room Air I&O- Last 24 Hours up to 6 AM 09/21/18 06:00 Intake Total 100 ml Output Total 300 ml Balance -200 ml CONSTANTINO LARSON DO Sep 21, 2018 18:33
--- NOTE | 2018-09-21 19:54 | REPVR ---
EXAM: MR Head Without and With Contrast EXAM DATE/TIME: 09/21/2018 6:04 PM CLINICAL HISTORY: 53 years old, female; Syncope and collapse and weakness, extremity; Bilateral; Patient HX: PT states recently passed out and doesnt recall event and now has overall weakness; Additional info: Left arm TECHNIQUE: Imaging protocol: MR of the head without and with intravenous contrast. Contrast material: PROHANCE; Contrast volume: 20 ml; Contrast route: IV HAND INJECTION COMPARISON: CT Head without contrast 09/20/2018 5:10 PM FINDINGS: No abnormal diffusion restriction to indicate acute CVA. Midline structures and cerebellar tonsillar position appear normal. Ventricles, cisterns and sulci are symmetric and normal for age. No intracranial mass, midline shift, or abnormal extra-axial fluid. No acute intracranial hemorrhage. White matter structures demonstrate no abnormal FLAIR or T2 signal. CP angle cisterns show normal CSF signal without effacement or mass. No abnormal parenchymal or meningeal enhancement with gadolinium. Vascular flow voids are preserved in vertebro-basilar and carotid vessels. Major dural venous sinuses appear patent. Paranasal sinuses and mastoid air cells are normally aerated. Ocular globes and orbits are unremarkable. No soft tissue abnormality or asymmetry in the posterior nasopharynx. IMPRESSION: Unremarkable pre-and postcontrast enhanced MRI of the brain. Electronically signed by: Migue Patterson On 09/21/2018 19:54:01 PM
[2018-09-21] MEDS: LISINOPRIL 10 MG TAB PO SCH (20:32)
[2018-09-21 22:00] VITALS: BP 118/57
[2018-09-22 05:59] LABS: BASO % 0.4 % (0.0-1.0); EOS # 0.1 10^3/uL (0.0-0.50); EOS % 1.9 % (0.0-3.0); HEMATOCRIT 36.2 % (36.0-47.0); HEMOGLOBIN 11.8 g/dl (12.0-15.5); LYMPH # 1.7 10^3/uL (1.5-4.5); MEAN CORPUSCULAR HEMOGLOBIN 29.8 pg (27.0-33.0); MEAN CORPUSCULAR HGB CONC 32.6 g/dl (32.0-36.5); MEAN CORPUSCULAR VOLUME 91.4 fl (80.0-96.0); MONO # 0.4 10^3/uL (0.0-0.8); NEUTROPHILS # 2.4 10^3/uL (1.8-7.7); NEUTROPHILS % 52.3 % (36.0-66.0); PLATELET COUNT, AUTOMATED 167 10^3/uL (150-450); RED BLOOD COUNT 3.96 10^6/uL (4.00-5.40); WHITE BLOOD COUNT 4.7 10^3/uL (4.0-10.0)
[2018-09-22 06:00] VITALS: BP 126/60
[2018-09-22 06:26] LABS: CALCIUM LEVEL 8.5 MG/DL (8.5-10.1); CREATININE FOR GFR 1.05 MG/DL (0.55-1.30); GLOMERULAR FILTRATION RATE 58.4 (>51)
[2018-09-22] MEDS: FAMOTIDINE 20 MG TAB PO SCH (08:15)
[2018-09-22] MEDS: APIXABAN 5 MG TAB (ELIQUIS) PO SCH (08:15)
[2018-09-22] MEDS: PANTOPRAZOLE 40MG TAB (PROTONIX) PO SCH (08:16)
[2018-09-22] MEDS: SUCRALFATE 1 GM TAB PO SCH (08:16)
[2018-09-22] MEDS: traMADol 50 MG TAB PO PRN (08:16)
[2018-09-22 10:22] VITALS: BP 126/60
[2018-09-22] MEDS: METOPROLOL TART 50 MG TAB PO SCH (10:22)
--- NOTE | 2018-09-22 23:50 | DS.PDOC ---
Discharge Summary General Date of Admission Sep 20, 2018 at 23:43 Date of Discharge 09/22/18 Discharge Summary PROCEDURES PERFORMED DURING STAY: [None]. 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 HISTORY OF PRESENT ILLNESS: Please see history and physical HOSPITAL COURSE: 53-year-old female with a PMHx of HTN, A. fib, Pseudoseizures diagnosed at [facility], vasovagal syncope, anxiety/depression, and chronic lower back pain presents to the ER for a chief complaint of a syncopal episode. The patient states that she was found by her sister unresponsive [place] the [place]. The patient's sister states that the patient was laying on the ground and not responding to verbal stimulation for a few minutes. There was no jerking activity, fecal/urinary incontinence. The patient denies recalling any of the aforementioned events . Patient was admitted for evaluation of syncope. Reports she was sitting and suddenly was unconscious for about 2 minutes and sister woke her up. No shaking of limbs, incontinence, or tongue biting during this. She reports being confused afterwards for 5 minutes, but has not had these sx since admission. Continues to have overall weakness and paresthesias of the left arm and leg. She reports she has paresthesias normally on the left arm for which her PCP has imaged her shoulder concern for impingement, however leg paresthesias new. The paraesthesias have now resolved Vasovagal Syncope Vs Pseudoseizures. MRI of brain is negative No episode in hospital. Orthostatic vitals here were negative. CT Head and CT cervical spine with no acute findings noted. No focal neurological deficits EKG with no acute changes 48 hour Telemetry only showed sinus bradycardia lowest to about 45 during sleep, No cardiac arrhythmia, No pauses. Paraesthesia of left upper and lower extremity MRI of Shoulder from 09/2018 outpatient shows :Extensive SLAP tear undermines the biceps labral complex. Supraspinatus tendinopathy without evidence of rotator cuff tear. Hypertrophic degenerative changes acromioclavicular joint with downward sloping of the acromion. She known to have chronic left arm paraesthesia thought to be due to shoulder impingement the transient leg paraesthesia was new could be due to lumber radiculopathy has chronic back pain, has mild L4-L5 canal stenosis and disc bulges at L5-S1 level seen in CT lumber spine in feb 2018. Migraines. No issues History of atrial fibrillation Continue eliquis, metoprolol Hypertension Continue metoprolol, lisinopril History of pseudoseizures Follow-up with neurology as an outpatient GERD Continue PPI Morbid obesity with BMI of 44.4 Migraines with DISCHARGE MEDICATIONS: Please see below. ALLERGIES: Please see below. PHYSICAL EXAMINATION ON DISCHARGE: VITAL SIGNS: Please see below. GENERAL: Resting comfortably in bed, awake alert oriented speaking in complete sentences no acute distress] HEENT: Moist mucous membranes no elevation in CVP CARDIOVASCULAR: S1 S2 regular no additional heart sounds appreciated. RESPIRATORY: Clear to auscultation bilaterally. ABDOMINAL: Bowel sounds present abdomen soft and non-tender EXTREMITIES: No clubbing cyanosis or edema NEUROLOGICAL: [Spontaneously moves all 4 extremities mild weakness on left upper and lower extremity compared to the right without any drift. PSYCHOLOGICAL: Appropriate LABORATORY DATA: Please see below. ACTIVITY: [As tolerated]. DIET: As tolerated DISPOSITION: 01 Home, Self-Care. DISCHARGE INSTRUCTIONS: follow up PMD in 2 weeks DISCHARGE CONDITION: [Stable]. TIME SPENT ON DISCHARGE: 35 minutes. Vital Signs/I&Os Vital Signs Date Time Temp Pulse Resp B/P (MAP) Pulse Ox O2 Delivery O2 Flow Rate FiO2 09/22/18 10:22 62 126/60 09/22/18 08:46 18 09/22/18 06:00 97.2 100 09/21/18 00:34 Room Air I&O- Last 24 Hours up to 6 AM 09/22/18 05:59 Intake Total 1440 ml Output Total 825 ml Balance 615 ml Laboratory Data Labs 24H Laboratory Tests 2 09/22/18 05:31: Immature Granulocyte % (Auto) 0.4, White Blood Count 4.7, Red Blood Count 3.96L, Hemoglobin 11.8L, Hematocrit 36.2, Mean Corpuscular Volume 91.4, Mean Corpuscular Hemoglobin 29.8, Mean Corpuscular Hemoglobin Concent 32.6, Red Cell Distribution Width 13.0, Platelet Count 167, Neutrophils (%) (Auto) 52.3, Lymphocytes (%) (Auto) 37.0, Monocytes (%) (Auto) 8.0H, Eosinophils (%) (Auto) 1.9, Basophils (%) (Auto) 0.4, Neutrophils # (Auto) 2.4, Lymphocytes # (Auto) 1.7, Monocytes # (Auto) 0.4, Eosinophils # (Auto) 0.1, Basophils # (Auto) 0.0, Nucleated Red Blood Cells % (auto) 0.0, Anion Gap 3L, Glomerular Filtration Rate 58.4, Blood Urea Nitrogen 16, Creatinine 1.05, Sodium Level 142, Potassium Level 4.0, Chloride Level 111H, Carbon Dioxide Level 28, Calcium Level 8.5 CBC/BMP Laboratory Tests 09/22/18 05:31 Red Blood Count 3.96 L, Mean Corpuscular Volume 91.4, Mean Corpuscular Hemoglobin 29.8, Mean Corpuscular Hemoglobin Concent 32.6, Red Cell Distribution Width 13.0, Neutrophils (%) (Auto) 52.3, Lymphocytes (%) (Auto) 37.0, Monocytes (%) (Auto) 8.0 H, Eosinophils (%) (Auto) 1.9, Basophils (%) (Auto) 0.4, Neutrophils # (Auto) 2.4, Lymphocytes # (Auto) 1.7, Monocytes # (Auto) 0.4, Eosinophils # (Auto) 0.1, Basophils # (Auto) 0.0, Calcium Level 8.5 Discharge Medications Scheduled Apixaban (Eliquis) 5 Mg Tablet, 5 MG PO BID, (Reported) Famotidine (Famotidine) 20 Mg Tablet, 20 MG PO DAILY, (Reported) Lisinopril (Lisinopril) 10 Mg Tablet, 10 MG PO QHS, (Reported) Metoprolol Tartrate (Metoprolol Tartrate) 50 Mg Tablet, 50 MG PO DAILY, (Reported) Pantoprazole Sodium (Pantoprazole Sodium) 40 Mg Tablet.dr, 40 MG PO BID, (Reported) Sucralfate (Sucralfate) 1 Gm Tablet, 1 GM PO BID, (Reported) Scheduled PRN Nitroglycerin (Nitroglycerin) 0.4 Mg Sub, 0.4 MG SL NITRO PRN for CHEST PAIN, (Reported) Miscellaneous Medications Methocarbamol (Methocarbamol) 500 Mg Tablet, (Reported) Allergies Coded Allergies: pregabalin (Verified Allergy, Severe, Angioedema, 07/16/18) clindamycin (Verified Allergy, Intermediate, vomiting swelling, 07/16/18) diclofenac (Verified Allergy, Intermediate, swelling all over body, 07/16/18) shellfish derived (Verified Allergy, Intermediate, hives, 07/16/18) sorbitan esters (Verified Allergy, Unknown, 07/16/18) from zipsoragitation bupropion (Verified Adverse Reaction, Intermediate, increased tremors, 07/16/18) Wellbutin cyclobenzaprine (Verified Adverse Reaction, Intermediate, agitation, 07/16/18) doxycycline (Verified Adverse Reaction, Mild, vomiting, 07/16/18) sulfamethoxazole (Verified Adverse Reaction, Mild, vomiting, 07/16/18) W/trimethopri from bactrim trimethoprim (Verified Adverse Reaction, Mild, VOMITING, 07/16/18) ROBIN MCKENO MD Sep 22, 2018 23:50
--- NOTE | 2018-09-23 16:18 | ECGEPIP ---
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
== END 2018-09-22 10:57 | disposition home or self-care (01) ==
LOC: EDBD 16:41 → M ED 16:41 → M ED INP 23:43 → M MSPAV 09-21 01:28
PROVIDERS: ADMIT Internal Medicine; ATTEND Internal Medicine
DX: R55 Syncope and collapse (principal); M75.42 Impingement syndrome of left shoulder; M54.5 Low back pain; R20.2 Paresthesia of skin; I11.0 Hypertensive heart disease with heart failure; I48.91 Unspecified atrial fibrillation; F41.9 Anxiety disorder, unspecified; F32.9 Major depressive disorder, single episode, unspecified; F44.5 Conversion disorder with seizures or convulsions; E66.01 Morbid (severe) obesity due to excess calories; Z68.41 Body mass index [BMI] 40.0-44.9, adult; K21.9 Gastro-esophageal reflux disease without esophagitis; K44.9 Diaphragmatic hernia without obstruction or gangrene; K76.0 Fatty (change of) liver, not elsewhere classified; G43.909 Migraine, unspecified, not intractable, without status migrainosus; E03.9 Hypothyroidism, unspecified; I50.9 Heart failure, unspecified; Z79.899 Other long term (current) drug therapy; Z79.01 Long term (current) use of anticoagulants; Z88.1 Allergy status to other antibiotic agents; Z88.8 Allergy status to other drugs, medicaments and biological substances; Z91.013 Allergy to seafood; Z88.2 Allergy status to sulfonamides; Z87.891 Personal history of nicotine dependence
CPT/HCPCS: 36415; 70450; 70553; 71045; 72125; 80048; 80053; 80307; 82550; 82553; 83735; 84439; 84443; 85025; 85027; 85610; 85730; 93005; 93041; 94760; 96374; 97161; 99285; A9576; G0480; J1885

== ENCOUNTER 2018-09-23 17:33 | Emergency (ER) | payer OTHER ==
[~2018-09-23] VITALS: Ht 157.5 cm; Wt 115.0 kg
--- NOTE | 2018-09-23 18:04 | REPVR ---
EXAM: CT Head Without Contrast EXAM DATE/TIME: 09/23/2018 5:49 PM CLINICAL HISTORY: 53 years old, female; Injury or trauma; Fall; Initial encounter; Blunt trauma (contusions or hematomas); With loss of consciousness; Not specified; Injury date: 09/23/18; Additional info: Loc, on thinners TECHNIQUE: Imaging protocol: Axial computed tomography images of the head without contrast. Radiation optimization: All CT scans at this facility use at least one of these dose optimization techniques: automated exposure control; mA and/or kV adjustment per patient size (includes targeted exams where dose is matched to clinical indication); or iterative reconstruction. COMPARISON: CT Head without contrast 09/20/2018 5:10 PM FINDINGS: Brain: Normal. No hemorrhage. Unremarkable white matter. No mass effect. Ventricles: No hydrocephalus. Bones/joints: Unremarkable. No acute fracture. Sinuses: Visualized sinuses are unremarkable. No fluid levels. Mastoid air cells: No mastoid effusion. Soft tissues: Unremarkable. IMPRESSION: No acute intracranial abnormality. Electronically signed by: Duglas Mccullough On 09/23/2018 18:04:36 PM
--- NOTE | 2018-09-23 18:07 | REPVR ---
EXAM: CT Cervical Spine Without Contrast EXAM DATE/TIME: 09/23/2018 5:50 PM CLINICAL HISTORY: 53 years old, female; Injury or trauma; Fall; Initial encounter; Blunt trauma TECHNIQUE: Imaging protocol: Axial computed tomography images of the cervical spine without contrast. Coronal and sagittal reformatted images were created and reviewed. Radiation optimization: All CT scans at this facility use at least one of these dose optimization techniques: automated exposure control; mA and/or kV adjustment per patient size (includes targeted exams where dose is matched to clinical indication); or iterative reconstruction. COMPARISON: CT Spine,cervical w/o contrast 09/20/2018 5:10 PM FINDINGS: Vertebrae: No acute fracture. Normal alignment. Discs/Spinal canal/Neural foramina: No acute findings. Soft tissues: Unremarkable. Lungs: Not imaged. IMPRESSION: No acute findings. Electronically signed by: Duglas Mccullough On 09/23/2018 18:07:46 PM
[2018-09-23 21:47] VITALS: BP 161/86
[2018-09-23] MEDS ORDERED: ACETAMINOPHEN 500 MG TAB PO ONE (23:30)
[2018-09-23 23:31] LABS: BASO % 0.5 % (0.0-1.0); EOS # 0.1 10^3/uL (0.0-0.50); EOS % 1.2 % (0.0-3.0); HEMATOCRIT 41.3 % (36.0-47.0); LYMPH # 2.3 10^3/uL (1.5-4.5); LYMPH % 35.6 % (24.0-44.0); MEAN CORPUSCULAR HEMOGLOBIN 29.9 pg (27.0-33.0); MEAN CORPUSCULAR HGB CONC 34.1 g/dl (32.0-36.5); MEAN CORPUSCULAR VOLUME 87.7 fl (80.0-96.0); MONO # 0.5 10^3/uL (0.0-0.8); MONO % 8.4 % (0.0-5.0); NEUTROPHILS # 3.5 10^3/uL (1.8-7.7); PLATELET COUNT, AUTOMATED 142 10^3/uL (150-450); RED BLOOD COUNT 4.71 10^6/uL (4.00-5.40); WHITE BLOOD COUNT 6.4 10^3/uL (4.0-10.0)
--- NOTE | 2018-09-23 23:44 | ECGEPIP ---
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
[2018-09-23 23:55] LABS: HEMOGLOBIN 14.1 g/dl (12.0-15.5)
[2018-09-24] LABS: BLOOD UREA NITROGEN 11 MG/DL (7-18); CARBON DIOXIDE LEVEL 24 MEQ/L (21-32); CHLORIDE LEVEL 110 MEQ/L (98-107); CK-MB VALUE MASS < 1.0 NG/ML (<3.6); CPK CREATINE PHOSPHOKINASE 117 U/L (26-192); CREATININE FOR GFR 0.95 MG/DL (0.55-1.30); GLOMERULAR FILTRATION RATE > 60.0 (>51); GLUCOSE, FASTING 88 MG/DL (70-100); MB/CK RELATIVE INDEX 0.85 (< OR =4); POTASSIUM SERUM 4.4 MEQ/L (3.5-5.1); SODIUM LEVEL 141 MEQ/L (136-145); TROPONIN I < 0.02 NG/ML (< 0.10)
== END 2018-09-24 00:18 | disposition home or self-care (01) ==
LOC: M ED 17:33
DX: R55 Syncope and collapse (principal); S09.90XA Unspecified injury of head, initial encounter; W18.39XA Other fall on same level, initial encounter; Y92.008 Other place in unspecified non-institutional (private) residence as the place of occurrence of the external cause; I11.0 Hypertensive heart disease with heart failure; I50.9 Heart failure, unspecified; J44.9 Chronic obstructive pulmonary disease, unspecified; E78.00 Pure hypercholesterolemia, unspecified; M79.7 Fibromyalgia; H40.9 Unspecified glaucoma; Z79.899 Other long term (current) drug therapy; Z79.01 Long term (current) use of anticoagulants; Z88.1 Allergy status to other antibiotic agents; Z88.2 Allergy status to sulfonamides; Z88.8 Allergy status to other drugs, medicaments and biological substances; Z91.018 Allergy to other foods

== ENCOUNTER 2018-09-26 14:48 | Emergency (ER) | payer OTHER ==
[~2018-09-26] VITALS: Ht 157.5 cm; Wt 111.4 kg
[2018-09-26] MEDS ORDERED: METH1TAB40 (15:00)
--- NOTE | 2018-09-26 18:59 | REP ---
Chest x-ray: Two views. History: Syncope/near syncope. Comparison chest x-ray: September 20, 2018. Findings: There is a calcified granuloma in the left lower lobe again noted. Lungs are well inflated and clear. Pleural angles are sharp. Heart size is normal. Pulmonary vasculature is not increased. Impression: No active disease. Electronically Signed by Dominic Chao MD 09/26/2018 06:51 P
--- NOTE | 2018-09-26 19:43 | REPVR ---
EXAM: CT Head Without Contrast EXAM DATE/TIME: 09/26/2018 6:53 PM CLINICAL HISTORY: 53 years old, female; Syncope and collapse TECHNIQUE: Imaging protocol: Computed tomography images of the head without contrast. Radiation optimization: All CT scans at this facility use at least one of these dose optimization techniques: automated exposure control; mA and/or kV adjustment per patient size (includes targeted exams where dose is matched to clinical indication); or iterative reconstruction. COMPARISON: CT Head without contrast 09/23/2018 5:51 PM FINDINGS: Brain: There is no evidence of infarct, suarez-white matter differentiation is preserved. There is no hemorrhage or extra-axial collection. There is no mass. Ventricles: There is no hydrocephalus. Bones/joints: Unremarkable. No acute fracture. Sinuses: Visualized sinuses are unremarkable. No fluid levels. Mastoid air cells: Visualized mastoid air cells are well aerated. No mastoid effusion. Soft tissues: Unremarkable. IMPRESSION: No intracranial lesion or injury and no change from prior scan. Electronically signed by: Cesar Gonzalez On 09/26/2018 19:42:41 PM
[2018-09-26 20:22] LABS: BASO % 0.3 % (0.0-1.0); EOS % 0.5 % (0.0-3.0); HEMATOCRIT 39.8 % (36.0-47.0); HEMOGLOBIN 13.5 g/dl (12.0-15.5); LYMPH # 1.8 10^3/uL (1.5-4.5); LYMPH % 28.7 % (24.0-44.0); MEAN CORPUSCULAR HEMOGLOBIN 30.4 pg (27.0-33.0); MEAN CORPUSCULAR HGB CONC 33.9 g/dl (32.0-36.5); MEAN CORPUSCULAR VOLUME 89.6 fl (80.0-96.0); MONO # 0.5 10^3/uL (0.0-0.8); MONO % 7.1 % (0.0-5.0); NEUTROPHILS % 62.9 % (36.0-66.0); PLATELET COUNT, AUTOMATED 188 10^3/uL (150-450); RED BLOOD COUNT 4.44 10^6/uL (4.00-5.40); WHITE BLOOD COUNT 6.3 10^3/uL (4.0-10.0)
[2018-09-26 20:46] LABS: BLOOD UREA NITROGEN 18 MG/DL (7-18); CALCIUM LEVEL 8.7 MG/DL (8.5-10.1); CARBON DIOXIDE LEVEL 27 MEQ/L (21-32); CHLORIDE LEVEL 106 MEQ/L (98-107); CK-MB VALUE MASS < 1.0 NG/ML (<3.6); CPK CREATINE PHOSPHOKINASE 94 U/L (26-192); CREATININE FOR GFR 1.14 MG/DL (0.55-1.30); ETHYL ALCOHOL (ETHANOL) 0.004 % (0.000-0.010); GLOMERULAR FILTRATION RATE 53.1 (>51); GLUCOSE, FASTING 94 MG/DL (70-100); MAGNESIUM LEVEL 2.3 MG/DL (1.8-2.4); MB/CK RELATIVE INDEX 1.06 (< OR =4); NT-PRO BNP 61 PG/ML (<125); POTASSIUM SERUM 4.1 MEQ/L (3.5-5.1); SODIUM LEVEL 140 MEQ/L (136-145); TROPONIN I < 0.02 NG/ML (< 0.10)
[2018-09-26 20:53] LABS: AMPHETAMINES LEVEL URINE NEGATIVE (NEGATIVE); BARBITURATES URINE NEGATIVE (NEGATIVE); BENZODIAZEPINES URINE NEGATIVE (NEGATIVE); CANNABINOIDS URINE NEGATIVE (NEGATIVE); COCAINE METABOLITE URINE NEGATIVE (NEGATIVE); METHADONE URINE NEGATIVE (NEGATIVE); OPIATES URINE NEGATIVE (NEGATIVE); PHENCYCLIDINE URINE NEGATIVE (NEGATIVE)
[2018-09-26] MEDS ORDERED: ONDANSETRON 4 MG ORAL DISINTEGRATING TAB (Q0162 PER 1MG) PO ONE (21:15)
[2018-09-26] MEDS ORDERED: ACETAMINOPHEN 500 MG TAB PO ONE (21:15)
[2018-09-26 22:00] VITALS: BP 132/88
--- NOTE | 2018-09-27 05:56 | ECGEPIP ---
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
== END 2018-09-26 22:15 | disposition home or self-care (01) ==
LOC: M ED 14:48
DX: R55 Syncope and collapse (principal); I11.0 Hypertensive heart disease with heart failure; I50.9 Heart failure, unspecified; J44.9 Chronic obstructive pulmonary disease, unspecified; I48.91 Unspecified atrial fibrillation; I25.2 Old myocardial infarction; R56.9 Unspecified convulsions; Z86.718 Personal history of other venous thrombosis and embolism; Z79.899 Other long term (current) drug therapy; Z79.01 Long term (current) use of anticoagulants
CPT/HCPCS: 36415; 70450; 71046; 80048; 80307; 81001; 82550; 82553; 83735; 83880; 84443; 85025; 93005; 99284; G0480; Q0162

== ENCOUNTER 2018-09-29 18:38 | Emergency (ER) | payer OTHER ==
[~2018-09-29] VITALS: Ht 157.5 cm; Wt 111.0 kg
[~2018-09-29 18:38] MED LIST changes: +METH1TAB40
[2018-09-29 19:00] VITALS: BP 126/71
[2018-09-29] MEDS ORDERED: NS 1,000 ML IV ONE (19:00)
[2018-09-29 19:18] LABS: BASO % 0.3 % (0.0-1.0); EOS # 0.1 10^3/uL (0.0-0.50); EOS % 0.7 % (0.0-3.0); HEMATOCRIT 41.4 % (36.0-47.0); HEMOGLOBIN 13.8 g/dl (12.0-15.5); LYMPH # 1.8 10^3/uL (1.5-4.5); MEAN CORPUSCULAR HEMOGLOBIN 30.9 pg (27.0-33.0); MEAN CORPUSCULAR HGB CONC 33.3 g/dl (32.0-36.5); MEAN CORPUSCULAR VOLUME 92.6 fl (80.0-96.0); MONO # 0.6 10^3/uL (0.0-0.8); MONO % 8.2 % (0.0-5.0); NEUTROPHILS # 4.3 10^3/uL (1.8-7.7); NEUTROPHILS % 63.5 % (36.0-66.0); PLATELET COUNT, AUTOMATED 192 10^3/uL (150-450); RED BLOOD COUNT 4.47 10^6/uL (4.00-5.40); WHITE BLOOD COUNT 6.7 10^3/uL (4.0-10.0)
[2018-09-29 19:57] LABS: BLOOD UREA NITROGEN 14 MG/DL (7-18); CALCIUM LEVEL 8.2 MG/DL (8.5-10.1); CARBON DIOXIDE LEVEL 23 MEQ/L (21-32); CHLORIDE LEVEL 109 MEQ/L (98-107); CK-MB VALUE MASS < 1.0 NG/ML (<3.6); CPK CREATINE PHOSPHOKINASE 116 U/L (26-192); CREATININE FOR GFR 1.09 MG/DL (0.55-1.30); GLOMERULAR FILTRATION RATE 55.9 (>51); GLUCOSE, FASTING 97 MG/DL (70-100); MB/CK RELATIVE INDEX 0.86 (< OR =4); POTASSIUM SERUM 4.5 MEQ/L (3.5-5.1); SODIUM LEVEL 142 MEQ/L (136-145); TROPONIN I < 0.02 NG/ML (< 0.10)
--- NOTE | 2018-09-29 20:09 | ECGEPIP ---
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
== END 2018-09-29 20:33 | disposition home or self-care (01) ==
LOC: M ED 18:38
DX: E86.0 Dehydration (principal); I10 Essential (primary) hypertension; K21.9 Gastro-esophageal reflux disease without esophagitis; F41.9 Anxiety disorder, unspecified; F32.9 Major depressive disorder, single episode, unspecified; M54.9 Dorsalgia, unspecified; F44.5 Conversion disorder with seizures or convulsions; Z88.8 Allergy status to other drugs, medicaments and biological substances; Z88.1 Allergy status to other antibiotic agents; Z88.2 Allergy status to sulfonamides; Z91.013 Allergy to seafood; Z79.899 Other long term (current) drug therapy; Z79.01 Long term (current) use of anticoagulants

== ENCOUNTER → 2018-09-30 | Outpatient (CLI) | payer OTHER ==
[~2018-09-30] MED LIST changes: +DICY10CA13 PO; +META1TAB22; +REGL10TA6 PO
--- NOTE | 2018-10-09 01:37 | ECWPNPC ---
PATIENT NAME: SMITH VIVEROS : 1965 GENDER: FEMALE VISIT DATE: 09/30/2018 DISCHARGE DATE: 09/30/18 1140 VISIT LOCKED DATE TIME: PHYSICIAN: ARELIS MILLER MD RESOURCE: ARELIS MILLER MD REASON FOR APPOINTMENT 1. POST PROC HISTORY OF PRESENT ILLNESS HISTORY OF PRESENT ILLNESS: PAIN THE PATIENT DESCRIBES THE PAIN... 53 YEAR OLD FEMALE PATIENT WITH A HISTORY OF CHRONIC NECK AND LOW BACK PAIN. THE PATIENT DESCRIBES THE PAIN ACHING, STABBING, SORE, TENDER, SHARP, DAILY, AND CONTINUOUS WITH A PAIN SCORE OF 6-10/10 DEPENDING ON PHYSICAL ACTIVITY. THE PATIENT RECEIVED BILATERAL NECK AND BILATERAL SHOULDER TRIGGER POINT INJECTIONS ON 07/24/2018, WHICH SHE SAYS CAUSED INCREASED PAIN AND OTHER ISSUES THAT RESULTED IN HER HAVING TO VISIT THE EMERGENCY ROOM. THE PATIENT SAYS AFTER A FEW DAYS OF THE INCREASED PAIN FROM THE INJECTIONS, SHE BEGAN FEELING GOOD PAIN RELIEF, BUT FEELS THE PAIN IS RETURNING. THE PATIENT STATES THE MAIN CONCERN IS HER LOW BACK PAIN, WHICH IS CAUSING DIFFICULTIES IN PERFORMING HER ACTIVITIES, SUCH CLEANING, GROCERY SHOPPING, AND COOKING. THE PATIENT SAYS SHE RECEIVED SOME PAIN RELIEF FROM THE LEFT RADIOFREQUENCY ABLATION DONE ON 05/09/2018. THE PATIENT MENTIONS SHE HAS TRIED LYRICA IN THE PAST THAT CAUSED HER THROAT TO SWELL. PATIENT DENIES UNEXPLAINABLE WEIGHT LOSS, FEVER, CHILLS, NEW CHANGES ON HER URINARY OR BOWEL CONTROL. FALL RISK SCREENING: SCREENING :NO FALLS REPORTED IN THE LAST YEAR CURRENT MEDICATIONS TAKING NITROGLYCERIN 0.4 MG TABLET SUBLINGUAL DIRECTED SUBLINGUAL EVERY 5 MIN: MDD 3 TABLETS TAKING PAROXETINE HCL 30 MG TABLET 1 TABLET IN THE MORNING ORALLY ONCE A DAY TAKING SUCRALFATE 1 GM TABLET 1 TABLET ORALLY TWICE A DAY TAKING ELIQUIS 5 MG TABLET 1 TAB(S) ORALLY TWICE DAILY TAKING PROTONIX 40 MG TABLET DELAYED RELEASE 1 TABLET ORALLY BID TAKING LISINOPRIL 10 MG TABLET 1 TAB ORALLY DAILY TAKING METOPROLOL SUCCINATE 25 MG CAPSULE ER 24 HOUR SPRINKLE 1 CAPSULE ORALLY ONCE A DAY NOT-TAKING TIZANIDINE HCL 4 MG TABLET 1 TABLET NEEDED ORALLY FOR SPASMS AND PAIN BEFORE BEDTIME MAY REPEAT IN 5 HRS MDD2, NOTES: RAN OUT, STATES NOT WORKING NOT-TAKING TRAZODONE HCL 50 MG TABLET 1 TABLET AT BEDTIME NEEDED ORALLY ONCE A DAY NOT-TAKING GABAPENTIN 100 MG CAPSULE 1 CAPSULE ORALLY THREE TIMES DAILY NEEDED NOT-TAKING ATORVASTATIN CALCIUM 40 MG TABLET 1 TABLET ORALLY ONCE A DAY NOT-TAKING PREDNISONE 20 MG TABLET 1 TABLET ORALLY ONCE A DAY NOT-TAKING HYDROXYZINE HCL 25 MG TABLET 1 TABLET NEEDED ORALLY ONCE DAILY NEEDED NOT-TAKING DOXYCYCLINE MONOHYDRATE 100 MG CAPSULE 1 CAPSULE ORALLY BID NOT-TAKING CARAFATE 1 GM TABLET 1 TABLET AT BEDTIME ON AN EMPTY STOMACH BEFORE MEALS ORALLY BEFORE BEDTIME NOT-TAKING BLOOD PRESSURE CUFF - MISCELLANEOUS DIRECTED _ DAILY NOT-TAKING METAXALONE 400 MG TABLET 1 TABLETS ORALLY FOR SPASMS AND PAIN BEFORE BEDTIME MAY REPEAT IN 4HRS NOT-TAKING ABILIFY 10 MG TABLET 1 TABLET ORALLY ONCE A DAY NOT-TAKING TOPIRAMATE 50 MG TABLET 1 TABLET ORALLY TWICE A DAY MEDICATION LIST REVIEWED AND RECONCILED WITH THE PATIENT PAST MEDICAL HISTORY FIBROMYALGIA DX 4 YEARS AGO, BEING FOLLOWED AT PAIN CLINIC MIGRAINE HEADACHE STRESS INCONTINENCE DEPRESSION HYPERLIPIDEMIA VITAMIN D DEFICIENCY AFIB GERD INTERMITTENT A FIB STRESS INCONTINENCE, FEMALE CHRONIC PAIN SYNDROME UNSPECIFIED VITAMIN D DEFICIENCY MIGRAINE, UNSPECIFIED WITHOUT MENTION OF INTRACTABLE MIGRAINE WITHOUT MENTION OF STATUS MIGRAINOSUS ALLERGIES ZIPSOR: ALLERGY FLEXERIL: AGGITATION - ALLERGY LYRICA: ANAPHYLAXIS - ALLERGY DICLOFENAC POTASSIUM: AGGITATION (ZIPSOR) - ALLERGY BACTRIM: NAUSEA/VOMITING - ALLERGY CYMBALTA: NAUSEA/VOMITING - SIDE EFFECTS AMITRIPTYLINE: AGGITATION - SIDE EFFECTS GABAPENTIN: HALLUCINATIONS - SIDE EFFECTS TIZANIDINE HCL: HIVES - ALLERGY KETOROLAC TROMETHAMINE: STOMACH PAIN - ALLERGY SURGICAL HISTORY TUBAL LIGATION 1987 DISTAL 4TH FINGER REPAIR SECONDARY TO TRAUMATIC INJURY BENIGN TUMOR REMOVAL RIGHT LEG DENTAL SURGERIES CHOLECYSTECTOMY 05/2014 HYSTERECTOMY STILL HAS 1 OVARY BUT NOT SURE WHICH ONE 2012 ABSCESS R GROIN 2014 FAMILY HISTORY FATHER: , PNEUMONIA, CHF, NEUROPATHY, BLOOD CLOT, DIAGNOSED WITH DIABETES, HEART DISEASE, STROKE MOTHER: , CANCER, CANCER, HYPERTENSION, HEART DISEASE, STROKE, DIABETES SIBLINGS: ALIVE, LUPUS, DIABETES SON(S): ALIVE DAUGHTER(S): ALIVE 2 BROTHER(S) , 5 SISTER(S) . 1 SON(S) , 1 DAUGHTER(S) - HEALTHY. SOCIAL HISTORY GENERAL: TOBACCO USE ARE YOU A:FORMER SMOKER HOW LONG HAS IT BEEN SINCE YOU LAST SMOKED?5-10 YEARS VAPORNO E-CIGARETTEYES HIV / HEP-C SCREENING HIV TEST OFFERED TO PATIENT:YES DATE OFFERED:10/26/2017 TEST ACCEPTED:NO REASON:PATIENT DECLINED BROCHURE PROVIDED TO PATIENTNO HEP-C TEST OFFERED TO PATIENT:NO OTHERS AT HOME: [id number], BROTHER, NEPHEW AND BOYFRIEND. DIET: REGULAR. LANGUAGE VIETNAMESE. DOMESTIC VIOLENCE DO YOU FEEL SAFE IN YOUR ENVIRONMENT?YES NEW PATIENT PAIN DIARY FROM 0-10, WHAT LEVEL IS YOUR PAIN TODAY?10 BMI CARE GOAL FOLLOW-UP ABOVE NORMAL BMI FOLLOW-UPLIFESTYLE EDUCATION REGARDING DIET RECREATIONAL DRUG USE DRUG USE?NO EXERCISE: NO REGULAR EXERCISE. LEARNING BARRIERS / SPECIAL NEEDS CHANGE FROM LAST VISIT?NO BARRIERS TO LEARNING?NO HEARING IMPAIRED?NO VISION IMPAIRED?YES :CORRECTIVE LENSES COGNITIVELY IMPAIRED?NO READINESS TO LEARN?YES LEARNING PREFERENCES?NO LEARNING CAPABILITIES PRESENT?YES EMOTIONAL BARRIERS?YES SPECIAL DEVICES?NO PAIN CLINIC PFS, CLERGY, PUBLIC HEALTH REFERRALS PFS REFERRAL NEEDED?NO CLERGY REFERRAL NEEDED?NO PUBLIC HEALTH REFERRAL NEEDED?NO WAS THE PROVIDER NOTIFIED OF ANY PERTINENT INFO?NO N/A HAS THE PATIENT BEEN EDUCATED REGARDING HIS/HER PLAN OF CARE?YES HAS THE PATIENT BEEN EDUCATED REGARDING PAIN, THE RISK FOR PAIN, THE IMPORTANCE OF EFFECTIVE PAIN MANAGEMENT, AND THE PAIN ASSESSMENT PROCESS?YES LATEX QUESTIONNAIRE LATEX ALLERGY : HAVE YOU EVER DEVELOPED ANY TYPE OF REACTION AFTER HANDLING LATEX PRODUCTS SUCH RUBBER GLOVES, CONDOMS, DIAPHRAGMS, BALLOONS, SOCKS, OR UNDERWEAR?NO LATEX ALLERGY : HAVE YOU EVER DEVELOPED ANY TYPE OF REACTION DURING OR AFTER DENTAL APPOINTMENT, VAGINAL/RECTAL EXAMINATION, SURGICAL PROCEDURE, OR ANY OTHER EXPOSURE?NO LATEX RISK : HAVE YOU EVER HAD ANY DIFFICULTY BREATHING OR HIVES AFTER EATING OR HANDLING ANY FRUITS, OR VEGETABLES; SUCH KIWI, BANANAS, STONE FRUITS, OR CHESTNUTSNO LATEX RISK : DO YOU HAVE A PREVIOUS PERSONAL HISTORY OF MORE THAN NINE SURGERIES, SPINA BIFIDA, OR REPEATED CATHERIZATIONS? YES - PLEASE INDICATE : > 9 SURGERIES LATEX RISK : ARE YOU FREQUENTLY EXPOSED TO LATEX PRODUCTS IN YOUR OCCUPATION?NO DATE ASKED : 06/24/2018 CAFFEINE CAFFEINE USE?YES ADVANCE DIRECTIVE ADVANCE DIRECTIVE DISCUSSED WITH PATIENT:YES PT HAS NO ADVANCED DIRECTIVES, DECLINES HCP INFORMATION AND ASSISTANCE WITH FORM AT THIS TIME. 09/30/18 YARSANISM NO ORTHODOXY BELIEFS THAT WOULD IMPACT HEALTH CARE. MARITAL STATUS: .. ALCOHOL SCREENING DID YOU HAVE A DRINK CONTAINING ALCOHOL IN THE PAST YEAR?NO POINTS0 INTERPRETATIONNEGATIVE OCCUPATION: UNEMPLOYED. SEXUAL HX HAD SEX IN THE LAST 12 MONTHS (VAGINAL, ORAL, OR ANAL)?NO HAVE YOU EVER HAD AN STD?NO 08/15/17 1025 REVIEWED WITH PT. AD03/15/2018 1508 REVIEWED WITH PT LAS03/27/18 1116 REVIEWED WITH PT BVREVIEWED WITH PATIENT 06/24/18 1028 JSREVIEWED WITH PATIENT 07/24/18 1257 JSREVIEWED WITH PT 09/30/18 1042 BV. HOSPITALIZATION/MAJOR DIAGNOSTIC PROCEDURE ABOVE SURGERIES MRSA RIGHT GROIN 2015, C DIFF 2015 CHEST PAIN 10/20/2016 [facility] IM 09/2017 DIVERTICULITIS AND /HYPOTENSION 06/2018 SYNCOPE 09/2018 REVIEW OF SYSTEMS REVIEWED BY: PROVIDER: ARELIS MILLER MD . CONSTITUTIONAL: ANY CHANGE IN YOUR MEDICAL CONDITION? YES, PT HAS HAD MULTIPLE SYNCOPE EPISODES IN THE PAST COUPLE WEEKS. STATES SHE WAS HOSPITALIZED REGARDING THE SYNCOPE THIS PAST WEEK. STATES SHE WAS TREATED AND A REFERAL HAS BEEN PUT IN TO NEUROLOGY REGARDING THIS. ALSO SCHEDULED TO SEE CARDIOLOGY LATER THIS WEEK . CHILLS NO . FEVER NO . INFECTION: DO YOU HAVE NEW INFECTIONS? NO . DO YOU HAVE HISTORY OF MRSA? NO . MUSCULOSKELETAL: ANY NEW PATTERNS OF PAIN OR NUMBNESS? YES, PT STATES SHE HAS HAD INCREASING PAIN OVER THE PAST 3 WEEKS. STATES SHE HAS HAD INCREASING INTERMITTENT SPASMS IN BILATERAL LEGS OVER THE PAST 3 WEEKS. . GASTROENTEROLOGY: ANY NEW CHANGE IN BOWEL CONTROL? NO . GENITOURINARY: ANY NEW CHANGE IN BLADDER CONTROL? NO . IS THERE A CHANCE YOU COULD BE ? NO . HEMATOLOGY/LYMPH: DO YOU TAKE ANY BLOOD THINNERS? (FOR EXAMPLE- COUMADIN, PLAVIX, AGGRENOX, PLATEL, PRADAXA, OR XARELTO) YES, ELIQUIS . WHEN WAS YOUR LAST DOSE? DATE: TIME: . NEUROLOGY: HAVE YOU FALLEN IN THE PAST 12 MONTHS? NO . ANY NEW EXTREMITY NUMBNESS OR WEAKNESS? NO . CARDIOLOGY: DO YOU HAVE A PACEMAKER OR DEFIBRILLATOR? NO . RESPIRATORY: HAVE YOU BEEN SICK IN THE PAST WEEK? NO . FEVER NO . FLU LIKE SYMPTOMS? NO . COUGH NO . INTEGUMENTARY: DO YOU HAVE ANY RASHES OR OPEN SORES? NO . ALLERGIC/IMMUNO: ARE YOU ALLERGIC TO IV DYE? NO . ANY NEW ALLERGIES? NO . PSYCHIATRIC: DO YOU HAVE THOUGHTS OF HURTING YOURSELF OR SOMEONE ELSE? NO . ARE YOU ABUSED, NEGLECTED, OR IN AN UNSAFE ENVIRONMENT? NO . ENDOCRINOLOGY: ARE YOU DIABETIC? NO . OTHER: DO YOU NEED ANY PRESCRIPTIONS? NO . IF YES, PLEASE LIST: ____ . ANY NEW PROBLEMS WITH YOUR MEDICATIONS? NO . WHEN DID YOU LAST EAT? ____ . WHEN DID YOU LAST DRINK? ____ . WHAT DID YOU LAST DRINK? ____ . NAME OF PERSON DRIVING YOU HOME? ____ . DO YOU HAVE ANY OTHER QUESTIONS OR CONCERNS NO . VITAL SIGNS WT 247 LBS, HT 61 IN, BMI 46.67 INDEX, BP 129/79 MM HG, HR 78 /MIN, RR 18 /MIN, TEMP 98.1 F, OXYGEN SAT % 99%, NA INITIALS AW 1029, REVIEWED BY: BV. EXAMINATION GENERAL EXAMINATION: PATIENT IS ALERT O X 3 AND COOPERATIVE. TENDERNESS IN THE LOW BACK. PRESENCE OF BANDS OF TISSUE AND TRIGGER POINTS WITH RESTRICTION OF MOVEMENT OF THE LOW BACK. ASSESSMENTS MYALGIA, OTHER SITE - M79.18 (PRIMARY) LOW BACK PAIN - M54.5 OTHER CHRONIC PAIN - G89.29 TREATMENT MYALGIA, OTHER SITE CLINICAL NOTES: WE DISCUSSED SEVERAL ISSUES WITH MS. VIVEROS'S PAIN MANAGEMENT CASE. DUE TO THE TRIGGER POINTS, BANDS OF TISSUE, AND RESTRICTION OF MOVEMENT, I WOULD LIKE TO MOVE FORWARD WITH A LUMBAR TRIGGER POINT INJECTION AT THIS TIME. WE DISCUSSED THE BENEFITS, RISKS, AND ALTERNATIVES OF THE INJECTION AND THE PATIENT WOULD LIKE TO PROCEED. I WILL START THE PATIENT ON METAXALONE 800 MG TO BE TAKEN NEEDED FOR SPASTICITY AND SLEEP DIFFICULTIES. THE PATIENT HAS A HISTORY OF ALLERGIC REACTIONS TO LYRICA AND IS AWARE OF THE POSSIBILITY OF EXPERIENCING ANOTHER REACTION FROM THIS MEDICATION. THE PATIENT IS AWARE NOT TO TAKE THE MEDICATION EVERY NIGHT, ONLY NEEDED FOR SPASMS AND PAIN IN THE NIGHT, AND TO TRY THE MEDICATION AT FIRST WITH FAMILY CLOSE BY TO HELP IN CASE OF A REACTION. THE PATIENT WILL FOLLOW UP WITH THE NURSE PRACTITIONER IN 6 WEEKS. INSTRUCTIONS WERE GIVEN, QUESTIONS WERE ANSWERED, PATIENT REPORTS UNDERSTANDING AND AGREES WITH THE PLAN. I, GABINO MIXON, DOCUMENTED THE ABOVE INFORMATION ACTING A SCRIBE FOR DR. MILLER. I HAVE REVIEWED THE ABOVE DOCUMENT, WRITTEN BY GABINO PALMER AND I VERIFY THAT IT IS ACCURATE. . OTHERS START METAXALONE TABLET, 800 MG, 1 TABLET, ORALLY FOR SPASMS AND PAIN, BEFORE BEDTIME, 30 DAY(S), 50, REFILLS 1 PREVENTIVE MEDICINE PAIN CLINIC TEACHING: PROCEDURE TEACHING PRE PROCEDURE EDUCATION REVIEWED AND PT SCHEDULED FOR TRIGGER POINT WHICH NEEDS TO BE DONE I PRCEDURE ROOM AND A SL STARTED. MEDITATION PRINTED MATERIAL GIVEN TO PATIENT ON SKELAXIN . PROCEDURE CODES FA211 ESTABILISHED PATIENT [facility]ILITY CHARGE G8427 CURRENT MEDS W/DOSAGES DOCUMENTED G8730 PAIN ASSESS POS TOOL F/U PLAN DOC DISPOSITION & COMMUNICATION FOLLOW UP 6 WEEKS (REASON: F/U WITH ANISA MITCHELL) ELECTRONICALLY SIGNED BY ARELIS MILLER MD, ON 10/08/2018 AT 02:02 PM EDT DISCLAIMER : THIS IS A VISIT SUMMARY EXTRACTED FROM THE [employer] CHART. IT IS NOT A COPY OF THE [employer] PROGRESS NOTE. RITA
== END ==
LOC: M PAIN 10:45
PROVIDERS: ATTEND Anesthesiology
DX: G89.29 Other chronic pain (principal); M79.18 Myalgia, other site; M54.5 Low back pain; M79.7 Fibromyalgia; G43.909 Migraine, unspecified, not intractable, without status migrainosus; F32.9 Major depressive disorder, single episode, unspecified; E78.5 Hyperlipidemia, unspecified; E55.9 Vitamin D deficiency, unspecified; K21.9 Gastro-esophageal reflux disease without esophagitis; I48.91 Unspecified atrial fibrillation; N39.3 Stress incontinence (female) (male); G89.4 Chronic pain syndrome; Z87.891 Personal history of nicotine dependence; Z79.01 Long term (current) use of anticoagulants; Z79.899 Other long term (current) drug therapy; Z90.49 Acquired absence of other specified parts of digestive tract; Z90.710 Acquired absence of both cervix and uterus; Z90.721 Acquired absence of ovaries, unilateral; Z88.2 Allergy status to sulfonamides; Z88.8 Allergy status to other drugs, medicaments and biological substances

== ENCOUNTER → 2018-10-02 | Outpatient (CLI) | payer OTHER ==
[~2018-10-02] MED LIST changes: +BUPIVACAINE HCL 0.25% 10 ML VIAL As Ordered ONE; +BUPIVACAINE HCL 0.25% 30 ML VIAL As Ordered ONE; +TRIAMCINOLONE ACETONIDE SUSP 40 MG/ML VIAL (J3301) As Ordered ONE; +diazePAM 5 MG TAB As Ordered ONE; +diphenhydrAMINE 25 MG CAP As Ordered ONE; +oxyCODONE 5MG TAB As Ordered ONE
--- NOTE | 2018-10-11 23:36 | ECWPNPC ---
PATIENT NAME: SMITH VIVEROS : 1965 GENDER: FEMALE VISIT DATE: 10/02/2018 DISCHARGE DATE: 10/02/18 1152 VISIT LOCKED DATE TIME: PHYSICIAN: ARELIS MILLER MD RESOURCE: ARELIS MILLER MD REASON FOR APPOINTMENT 1. TPI LOW BACK- NEEDS TO BE IN PROCEDURE ROOM WITH IV HISTORY OF PRESENT ILLNESS HISTORY OF PRESENT ILLNESS: PAIN THE PATIENT DESCRIBES THE PAIN... FALL RISK SCREENING: SCREENING :NO FALLS REPORTED IN THE LAST YEAR CURRENT MEDICATIONS TAKING NITROGLYCERIN 0.4 MG TABLET SUBLINGUAL DIRECTED SUBLINGUAL EVERY 5 MIN: MDD 3 TABLETS, NOTES: NONE RECENTLY TAKING PAROXETINE HCL 30 MG TABLET 1 TABLET IN THE MORNING ORALLY ONCE A DAY, NOTES: 0800 TAKING SUCRALFATE 1 GM TABLET 1 TABLET ORALLY TWICE A DAY, NOTES: 0800 TAKING ELIQUIS 5 MG TABLET 1 TAB(S) ORALLY TWICE DAILY, NOTES: 0800 TAKING PROTONIX 40 MG TABLET DELAYED RELEASE 1 TABLET ORALLY BID, NOTES: 0800 TAKING LISINOPRIL 10 MG TABLET 1 TAB ORALLY DAILY, NOTES: 10/01/18@1999 TAKING METOPROLOL SUCCINATE 25 MG CAPSULE ER 24 HOUR SPRINKLE 1 CAPSULE ORALLY ONCE A DAY, NOTES: 10/01/18 TAKING METAXALONE 800 MG TABLET 1 TABLET ORALLY FOR SPASMS AND PAIN BEFORE BEDTIME, NOTES: 10/01/18@2200 DISCONTINUED TIZANIDINE HCL 4 MG TABLET 1 TABLET NEEDED ORALLY FOR SPASMS AND PAIN BEFORE BEDTIME MAY REPEAT IN 5 HRS MDD2, NOTES: RAN OUT, STATES NOT WORKING DISCONTINUED TRAZODONE HCL 50 MG TABLET 1 TABLET AT BEDTIME NEEDED ORALLY ONCE A DAY DISCONTINUED GABAPENTIN 100 MG CAPSULE 1 CAPSULE ORALLY THREE TIMES DAILY NEEDED DISCONTINUED ATORVASTATIN CALCIUM 40 MG TABLET 1 TABLET ORALLY ONCE A DAY DISCONTINUED PREDNISONE 20 MG TABLET 1 TABLET ORALLY ONCE A DAY DISCONTINUED HYDROXYZINE HCL 25 MG TABLET 1 TABLET NEEDED ORALLY ONCE DAILY NEEDED DISCONTINUED DOXYCYCLINE MONOHYDRATE 100 MG CAPSULE 1 CAPSULE ORALLY BID DISCONTINUED CARAFATE 1 GM TABLET 1 TABLET AT BEDTIME ON AN EMPTY STOMACH BEFORE MEALS ORALLY BEFORE BEDTIME DISCONTINUED BLOOD PRESSURE CUFF - MISCELLANEOUS DIRECTED _ DAILY DISCONTINUED METAXALONE 400 MG TABLET 1 TABLETS ORALLY FOR SPASMS AND PAIN BEFORE BEDTIME MAY REPEAT IN 4HRS DISCONTINUED ABILIFY 10 MG TABLET 1 TABLET ORALLY ONCE A DAY DISCONTINUED TOPIRAMATE 50 MG TABLET 1 TABLET ORALLY TWICE A DAY MEDICATION LIST REVIEWED AND RECONCILED WITH THE PATIENT PAST MEDICAL HISTORY FIBROMYALGIA DX 4 YEARS AGO, BEING FOLLOWED AT PAIN CLINIC MIGRAINE HEADACHE STRESS INCONTINENCE DEPRESSION HYPERLIPIDEMIA VITAMIN D DEFICIENCY AFIB GERD INTERMITTENT A FIB STRESS INCONTINENCE, FEMALE CHRONIC PAIN SYNDROME UNSPECIFIED VITAMIN D DEFICIENCY MIGRAINE, UNSPECIFIED WITHOUT MENTION OF INTRACTABLE MIGRAINE WITHOUT MENTION OF STATUS MIGRAINOSUS ALLERGIES ZIPSOR: ALLERGY FLEXERIL: AGGITATION - ALLERGY LYRICA: ANAPHYLAXIS - ALLERGY DICLOFENAC POTASSIUM: AGGITATION (ZIPSOR) - ALLERGY BACTRIM: NAUSEA/VOMITING - ALLERGY CYMBALTA: NAUSEA/VOMITING - SIDE EFFECTS AMITRIPTYLINE: AGGITATION - SIDE EFFECTS GABAPENTIN: HALLUCINATIONS - SIDE EFFECTS TIZANIDINE HCL: HIVES - ALLERGY KETOROLAC TROMETHAMINE: STOMACH PAIN - ALLERGY SURGICAL HISTORY TUBAL LIGATION 1988 DISTAL 4TH FINGER REPAIR SECONDARY TO TRAUMATIC INJURY BENIGN TUMOR REMOVAL RIGHT LEG DENTAL SURGERIES CHOLECYSTECTOMY 05/2014 HYSTERECTOMY STILL HAS 1 OVARY BUT NOT SURE WHICH ONE 2012 ABSCESS R GROIN 2014 FAMILY HISTORY FATHER: , PNEUMONIA, CHF, NEUROPATHY, BLOOD CLOT, DIAGNOSED WITH DIABETES, HEART DISEASE, STROKE MOTHER: , CANCER, DIABETES, CANCER, HYPERTENSION, HEART DISEASE, STROKE SIBLINGS: ALIVE, LUPUS, DIABETES SON(S): ALIVE DAUGHTER(S): ALIVE 2 BROTHER(S) , 5 SISTER(S) . 1 SON(S) , 1 DAUGHTER(S) - HEALTHY. SOCIAL HISTORY GENERAL: TOBACCO USE ARE YOU A:FORMER SMOKER HOW LONG HAS IT BEEN SINCE YOU LAST SMOKED?5-10 YEARS VAPORNO E-CIGARETTEYES HIV / HEP-C SCREENING HIV TEST OFFERED TO PATIENT:YES DATE OFFERED:10/26/2017 TEST ACCEPTED:NO REASON:PATIENT DECLINED BROCHURE PROVIDED TO PATIENTNO HEP-C TEST OFFERED TO PATIENT:NO OTHERS AT HOME: [id number], BROTHER, NEPHEW AND BOYFRIEND. DIET: REGULAR. LANGUAGE KINYARWANDA. DOMESTIC VIOLENCE DO YOU FEEL SAFE IN YOUR ENVIRONMENT?YES NEW PATIENT PAIN DIARY FROM 0-10, WHAT LEVEL IS YOUR PAIN TODAY?10 BMI CARE GOAL FOLLOW-UP ABOVE NORMAL BMI FOLLOW-UPLIFESTYLE EDUCATION REGARDING DIET RECREATIONAL DRUG USE DRUG USE?NO EXERCISE: NO REGULAR EXERCISE. LEARNING BARRIERS / SPECIAL NEEDS CHANGE FROM LAST VISIT?NO BARRIERS TO LEARNING?NO HEARING IMPAIRED?NO VISION IMPAIRED?YES :CORRECTIVE LENSES COGNITIVELY IMPAIRED?NO READINESS TO LEARN?YES LEARNING PREFERENCES?NO LEARNING CAPABILITIES PRESENT?YES EMOTIONAL BARRIERS?YES SPECIAL DEVICES?NO PAIN CLINIC PFS, CLERGY, PUBLIC HEALTH REFERRALS PFS REFERRAL NEEDED?NO CLERGY REFERRAL NEEDED?NO PUBLIC HEALTH REFERRAL NEEDED?NO WAS THE PROVIDER NOTIFIED OF ANY PERTINENT INFO?NO N/A HAS THE PATIENT BEEN EDUCATED REGARDING HIS/HER PLAN OF CARE?YES HAS THE PATIENT BEEN EDUCATED REGARDING PAIN, THE RISK FOR PAIN, THE IMPORTANCE OF EFFECTIVE PAIN MANAGEMENT, AND THE PAIN ASSESSMENT PROCESS?YES LATEX QUESTIONNAIRE LATEX ALLERGY : HAVE YOU EVER DEVELOPED ANY TYPE OF REACTION AFTER HANDLING LATEX PRODUCTS SUCH RUBBER GLOVES, CONDOMS, DIAPHRAGMS, BALLOONS, SOCKS, OR UNDERWEAR?NO LATEX ALLERGY : HAVE YOU EVER DEVELOPED ANY TYPE OF REACTION DURING OR AFTER DENTAL APPOINTMENT, VAGINAL/RECTAL EXAMINATION, SURGICAL PROCEDURE, OR ANY OTHER EXPOSURE?NO LATEX RISK : HAVE YOU EVER HAD ANY DIFFICULTY BREATHING OR HIVES AFTER EATING OR HANDLING ANY FRUITS, OR VEGETABLES; SUCH KIWI, BANANAS, STONE FRUITS, OR CHESTNUTSNO LATEX RISK : DO YOU HAVE A PREVIOUS PERSONAL HISTORY OF MORE THAN NINE SURGERIES, SPINA BIFIDA, OR REPEATED CATHERIZATIONS? YES - PLEASE INDICATE : > 9 SURGERIES LATEX RISK : ARE YOU FREQUENTLY EXPOSED TO LATEX PRODUCTS IN YOUR OCCUPATION?NO DATE ASKED : 10/02/2018 CAFFEINE CAFFEINE USE?YES ADVANCE DIRECTIVE ADVANCE DIRECTIVE DISCUSSED WITH PATIENT:YES PT HAS NO ADVANCED DIRECTIVES, DECLINES HCP INFORMATION AND ASSISTANCE WITH FORM AT THIS TIME. 09/30/18, 10/02/18 SHINTO NO PROTESTANT BELIEFS THAT WOULD IMPACT HEALTH CARE. MARITAL STATUS: .. ALCOHOL SCREENING DID YOU HAVE A DRINK CONTAINING ALCOHOL IN THE PAST YEAR?NO POINTS0 INTERPRETATIONNEGATIVE OCCUPATION: UNEMPLOYED. SEXUAL HX HAD SEX IN THE LAST 12 MONTHS (VAGINAL, ORAL, OR ANAL)?NO HAVE YOU EVER HAD AN STD?NO 08/15/17 1025 REVIEWED WITH PT. AD03/15/2018 1508 REVIEWED WITH PT LAS03/27/18 1116 REVIEWED WITH PT BVREVIEWED WITH PATIENT 06/24/18 1028 JSREVIEWED WITH PATIENT 07/24/18 1257 JSREVIEWED WITH PT 09/30/18 1042 BV. HOSPITALIZATION/MAJOR DIAGNOSTIC PROCEDURE ABOVE SURGERIES MRSA RIGHT GROIN 2015, C DIFF 2015 CHEST PAIN 10/20/2016 [facility] 09/2017 DIVERTICULITIS AND /HYPOTENSION 06/2018 SYNCOPE 09/2018 REVIEW OF SYSTEMS REVIEWED BY: PROVIDER: . CONSTITUTIONAL: ANY CHANGE IN YOUR MEDICAL CONDITION? NO . CHILLS NO . FEVER NO . INFECTION: DO YOU HAVE NEW INFECTIONS? NO . DO YOU HAVE HISTORY OF MRSA? YES . MUSCULOSKELETAL: ANY NEW PATTERNS OF PAIN OR NUMBNESS? YES . GASTROENTEROLOGY: ANY NEW CHANGE IN BOWEL CONTROL? NO . GENITOURINARY: ANY NEW CHANGE IN BLADDER CONTROL? NO . IS THERE A CHANCE YOU COULD BE ? NO . HEMATOLOGY/LYMPH: DO YOU TAKE ANY BLOOD THINNERS? (FOR EXAMPLE- COUMADIN, PLAVIX, AGGRENOX, PLATEL, PRADAXA, OR XARELTO) YES . WHEN WAS YOUR LAST DOSE? DATE: TIME:10/02/18@0800 . NEUROLOGY: HAVE YOU FALLEN IN THE PAST 12 MONTHS? YES, SYNCOPY EPISODES . ANY NEW EXTREMITY NUMBNESS OR WEAKNESS? YES . CARDIOLOGY: DO YOU HAVE A PACEMAKER OR DEFIBRILLATOR? NO . RESPIRATORY: HAVE YOU BEEN SICK IN THE PAST WEEK? NO . FEVER NO . FLU LIKE SYMPTOMS? NO . COUGH NO . INTEGUMENTARY: DO YOU HAVE ANY RASHES OR OPEN SORES? NO . ALLERGIC/IMMUNO: ARE YOU ALLERGIC TO IV DYE? NO . ANY NEW ALLERGIES? NO . PSYCHIATRIC: DO YOU HAVE THOUGHTS OF HURTING YOURSELF OR SOMEONE ELSE? NO . ARE YOU ABUSED, NEGLECTED, OR IN AN UNSAFE ENVIRONMENT? NO . ENDOCRINOLOGY: ARE YOU DIABETIC? NO . OTHER: DO YOU NEED ANY PRESCRIPTIONS? NO . IF YES, PLEASE LIST: ____ . ANY NEW PROBLEMS WITH YOUR MEDICATIONS? NO . WHEN DID YOU LAST EAT? ____10/01/18 . WHEN DID YOU LAST DRINK? ____08 . WHAT DID YOU LAST DRINK? ____WATER . NAME OF PERSON DRIVING YOU HOME? ____PEGGY [employer] NURSE . DO YOU HAVE ANY OTHER QUESTIONS OR CONCERNS NO . VITAL SIGNS WT 233 LBS, HT 61 IN, BMI 44.02 INDEX, BP 132/85 MM HG, HR 68 /MIN, RR 18 /MIN, TEMP 97.4 F, OXYGEN SAT % 99%, SAFE IN ENV? (Y/N) YES, NA INITIALS WI 09:53, REVIEWED BY: VD. ASSESSMENTS MYALGIA, OTHER SITE - M79.18 (PRIMARY) PROCEDURES PN TRIGGER POINT INJECTION WITH STEROIDS PRE PROCEDURE DIAGNOSIS 1. MYALGIA 2. PAIN AT BILATERAL LOW BACK AREA POST PROCEDURE DIAGNOSIS 1. MYALGIA 2. PAIN AT BILATERAL LOW BACK AREA PROCEDURE TRIGGER POINT INJECTION AT BILATERAL LOW BACK AREA SURGEON DR. ARELIS MILLER INCOME TAX ADMINISTRATOR NONE ANESTHESIA LOCAL PRE PROCEDURE NOTE THE PATIENT HAS A HISTORY OF CHRONIC PAIN AT THE RIGHT AND LEFT LOW BACK AREA. I EVALUATE THE PATIENT AND REVIEWED THE CHART. THERE IS EVIDENCE OF BANDS OF TISSUE WITH RESTRICTION OF MOVEMENT AND PRESENCE OF TRIGGER POINT AT THE AFFECTED AREA. I WENT OVER THE RISKS, ALTERNATIVES, AND BENEFITS ASSOCIATED WITH THIS PROCEDURE. THE PATIENT WOULD LIKE TO PROCEED AND GIVE CONSENT TO PERFORMED THE PROCEDURE. THE PATIENT DENIES UNEXPLAINABLE WEIGHT LOSS, FEVER, CHILLS, OR NEW CHANGES IN URINARY OR BOWEL CONTROL DESCRIPTION OF PROCEDURE THE PATIENT WAS BROUGHT TO THE PROCEDURE ROOM AND PLACED IN THE SITTING POSITION. THE AREA WAS CLEANED WITH ALCOHOL. THE PROCEDURE WAS DONE USING ASEPTIC STERILE TECHNIQUE. I CHECKED LATERALITY AND THE LEVEL WHERE THE PROCEDURE WAS GOING TO BE PERFORMED WITH THE PATIENT AND THE SUPPORTING STAFF AT THE MOMENT OF THE TIME OUT IN THE PROCEDURE ROOM. USING A 25-GAUGE NEEDLE, TRIGGER POINTS WERE INJECTED AT THE RIGHT AND LEFT LOW BACK AREA WITH A TOTAL OF 40 ML OF BUPIVACAINE 0.25% AND KENALOG 40 MG. THERE WAS NO EVIDENCE OF BLOOD, PARESTHESIA OR CEREBROSPINAL FLUID DURING THE PROCEDURE. THE PATIENT WAS SENT TO THE RECOVERY ROOM. THE PATIENT WAS MOVING THE EXTREMITIES AND DOING WELL. THERE WAS NO COMPLICATION DURING THE PROCEDURE POST PROCEDURE NOTE THE PATIENT WILL BE SEEN IN A FOLLOW UP IN THE NEXT FEW WEEKS. INSTRUCTIONS WERE GIVEN, QUESTIONS WERE ANSWERED, AND THE PATIENT EXPRESSED UNDERSTANDING AND AGREES WITH THE PLAN. I, ROXY FISHER, DOCUMENTED THE ABOVE INFORMATION ACTING A SCRIBE FOR DR. MILLER. I HAVE REVIEWED THE ABOVE DOCUMENT, WRITTEN BY ROXY PALMER AND I VERIFY THAT IT IS ACCURATE. PROCEDURE CODES 25097 INJ TRIGGER POINT / MUSCL DISPOSITION & COMMUNICATION FOLLOW UP 3 WEEKS ELECTRONICALLY SIGNED BY ARELIS MILLER MD, MD ON 10/11/2018 AT 01:58 PM EDT DISCLAIMER : THIS IS A VISIT SUMMARY EXTRACTED FROM THE [facility] [employer] CHART. IT IS NOT A COPY OF THE [facility] PROGRESS NOTE. RITA
== END ==
LOC: M PAIN 10:45
PROVIDERS: ATTEND Anesthesiology
DX: M79.18 Myalgia, other site (principal); M79.7 Fibromyalgia; G43.909 Migraine, unspecified, not intractable, without status migrainosus; F32.9 Major depressive disorder, single episode, unspecified; E78.5 Hyperlipidemia, unspecified; E55.9 Vitamin D deficiency, unspecified; I48.91 Unspecified atrial fibrillation; K21.9 Gastro-esophageal reflux disease without esophagitis; N39.3 Stress incontinence (female) (male); G89.4 Chronic pain syndrome; Z87.891 Personal history of nicotine dependence; Z90.49 Acquired absence of other specified parts of digestive tract; Z79.01 Long term (current) use of anticoagulants; Z79.899 Other long term (current) drug therapy; Z90.710 Acquired absence of both cervix and uterus; Z88.2 Allergy status to sulfonamides; Z88.8 Allergy status to other drugs, medicaments and biological substances
CPT/HCPCS: 20552; J3301

== ENCOUNTER 2018-10-07 18:04 | Emergency (ER) | payer OTHER ==
[~2018-10-07] VITALS: Ht 157.5 cm; Wt 109.4 kg
[~2018-10-07 18:04] MED LIST changes: -BUPIVACAINE HCL 0.25% 10 ML VIAL As Ordered ONE; -BUPIVACAINE HCL 0.25% 30 ML VIAL As Ordered ONE; -DICY10CA13 PO; -META1TAB22; -REGL10TA6 PO; -TRIAMCINOLONE ACETONIDE SUSP 40 MG/ML VIAL (J3301) As Ordered ONE; -diazePAM 5 MG TAB As Ordered ONE; -diphenhydrAMINE 25 MG CAP As Ordered ONE; -oxyCODONE 5MG TAB As Ordered ONE
[2018-10-07] MEDS ORDERED: META1TAB22 (18:12)
[2018-10-07 23:50] LABS: BASO % 0.2 % (0.0-1.0); EOS % 0.1 % (0.0-3.0); HEMATOCRIT 43.2 % (36.0-47.0); HEMOGLOBIN 14.3 g/dl (12.0-15.5); LYMPH # 2.1 10^3/uL (1.5-4.5); LYMPH % 23.9 % (24.0-44.0); MEAN CORPUSCULAR HEMOGLOBIN 30.7 pg (27.0-33.0); MEAN CORPUSCULAR HGB CONC 33.1 g/dl (32.0-36.5); MEAN CORPUSCULAR VOLUME 92.7 fl (80.0-96.0); MONO # 0.7 10^3/uL (0.0-0.8); MONO % 7.5 % (0.0-5.0); NEUTROPHILS # 5.9 10^3/uL (1.8-7.7); PLATELET COUNT, AUTOMATED 213 10^3/uL (150-450); RED BLOOD COUNT 4.66 10^6/uL (4.00-5.40); WHITE BLOOD COUNT 8.7 10^3/uL (4.0-10.0)
[2018-10-08] MEDS ORDERED: traMADol 50 MG TAB PO ONE
[2018-10-08] MEDS ORDERED: ACETAMINOPHEN TAB 650MG DOSE (2X325MG) PO ONE
[2018-10-08] MEDS ORDERED: AUGM875T28 PO (00:04)
--- NOTE | 2018-10-08 00:12 | REPVR ---
EXAM: US Right Non-Vascular Joint or Other Extremity Structure, Limited Lower Extremity EXAM DATE/TIME: 10/07/2018 10:38 PM CLINICAL HISTORY: 53 years old, female; Pain; Thigh; Right; Additional info: Pain, swelling right posterior thigh, r/o abscess TECHNIQUE: Imaging protocol: Right US Non-Vascular Joint or Other Extremity Structure. Limited exam of the right upper posterior thigh. COMPARISON: CT ABD/PEL W/IV CONTRAST ONLY 08/23/2018 8:52:04 PM FINDINGS: Soft tissues: Unremarkable. No soft tissue fluid collection is seen in the right upper posterior thigh in the location of the patient's symptoms. IMPRESSION: No sonographic abnormality identified in the location of the patient's symptoms in the right upper posterior thigh. Electronically signed by: Moiz Aceves On 10/08/2018 00:12:03 AM
[2018-10-08 00:13] VITALS: BP 140/80
[2018-10-08] MEDS ORDERED: AUGMENTIN 875 MG TAB PO ONE (00:15)
[2018-10-08 00:45] LABS: BLOOD UREA NITROGEN 15 MG/DL (7-18); CALCIUM LEVEL 9.3 MG/DL (8.5-10.1); CARBON DIOXIDE LEVEL 31 MEQ/L (21-32); CHLORIDE LEVEL 108 MEQ/L (98-107); GLOMERULAR FILTRATION RATE > 60.0 (>51); GLUCOSE, FASTING 112 MG/DL (70-100); POTASSIUM SERUM 4.1 MEQ/L (3.5-5.1); SODIUM LEVEL 141 MEQ/L (136-145)
== END 2018-10-08 00:12 | disposition home or self-care (01) ==
LOC: M ED 18:04
DX: J02.9 Acute pharyngitis, unspecified (principal); M79.651 Pain in right thigh; I11.0 Hypertensive heart disease with heart failure; I50.9 Heart failure, unspecified; J44.9 Chronic obstructive pulmonary disease, unspecified; E05.90 Thyrotoxicosis, unspecified without thyrotoxic crisis or storm; E78.00 Pure hypercholesterolemia, unspecified; F33.9 Major depressive disorder, recurrent, unspecified; F41.9 Anxiety disorder, unspecified; M79.7 Fibromyalgia; G47.30 Sleep apnea, unspecified; K21.9 Gastro-esophageal reflux disease without esophagitis; Z79.899 Other long term (current) drug therapy; Z79.01 Long term (current) use of anticoagulants; Z88.0 Allergy status to penicillin; Z88.2 Allergy status to sulfonamides; Z88.8 Allergy status to other drugs, medicaments and biological substances

== ENCOUNTER 2018-10-10 15:42 | Emergency (ER) | payer OTHER ==
[~2018-10-10] VITALS: Ht 157.5 cm; Wt 109.7 kg
[~2018-10-10 15:42] MED LIST changes: +META1TAB22
[2018-10-10 17:13] LABS: BASO % 0.2 % (0.0-1.0); EOS % 0.4 % (0.0-3.0); HEMATOCRIT 43.3 % (36.0-47.0); HEMOGLOBIN 14.4 g/dl (12.0-15.5); LYMPH # 1.9 10^3/uL (1.5-4.5); LYMPH % 21.4 % (24.0-44.0); MEAN CORPUSCULAR HEMOGLOBIN 30.1 pg (27.0-33.0); MEAN CORPUSCULAR HGB CONC 33.3 g/dl (32.0-36.5); MEAN CORPUSCULAR VOLUME 90.6 fl (80.0-96.0); MONO # 0.6 10^3/uL (0.0-0.8); MONO % 6.6 % (0.0-5.0); NEUTROPHILS # 6.4 10^3/uL (1.8-7.7); PLATELET COUNT, AUTOMATED 229 10^3/uL (150-450); RED BLOOD COUNT 4.78 10^6/uL (4.00-5.40); WHITE BLOOD COUNT 9.1 10^3/uL (4.0-10.0)
[2018-10-10] MEDS ORDERED: METOCLOPRAMIDE 10 MG TAB PO ONE (17:45)
[2018-10-10] MEDS ORDERED: DICYCLOMINE 10 MG CAP PO ONE (17:45)
[2018-10-10 18:11] LABS: ALBUMIN 3.4 GM/DL (3.2-5.2); ALT/SGPT 24 U/L (12-78); BILIRUBIN,DIRECT < 0.1 MG/DL (0.0-0.2); BILIRUBIN,TOTAL 0.3 MG/DL (0.2-1.0); BLOOD UREA NITROGEN 15 MG/DL (7-18); CARBON DIOXIDE LEVEL 31 MEQ/L (21-32); CHLORIDE LEVEL 105 MEQ/L (98-107); CREATININE FOR GFR 1.16 MG/DL (0.55-1.30); GLUCOSE, FASTING 84 MG/DL (70-100); LIPASE 242 U/L (73-393); POTASSIUM SERUM 3.7 MEQ/L (3.5-5.1); SODIUM LEVEL 142 MEQ/L (136-145); TOTAL PROTEIN 7.1 GM/DL (6.4-8.2)
[2018-10-10] MEDS ORDERED: REGL10TA6 PO (18:23)
[2018-10-10] MEDS ORDERED: DICY10CA13 PO (18:23)
[2018-10-10 18:34] VITALS: BP 135/72
== END 2018-10-10 18:43 | disposition home or self-care (01) ==
LOC: M ED 15:42
DX: R10.84 Generalized abdominal pain (principal); R11.2 Nausea with vomiting, unspecified; R19.7 Diarrhea, unspecified; I10 Essential (primary) hypertension; J44.9 Chronic obstructive pulmonary disease, unspecified; M79.7 Fibromyalgia; E78.5 Hyperlipidemia, unspecified; Z87.19 Personal history of other diseases of the digestive system; Z87.442 Personal history of urinary calculi; Z79.899 Other long term (current) drug therapy; Z79.01 Long term (current) use of anticoagulants; Z88.0 Allergy status to penicillin; Z88.1 Allergy status to other antibiotic agents; Z88.2 Allergy status to sulfonamides; Z88.8 Allergy status to other drugs, medicaments and biological substances; Z87.891 Personal history of nicotine dependence

== ENCOUNTER 2018-10-15 21:40 | Emergency (ER) | payer OTHER ==
[~2018-10-15] VITALS: Ht 157.5 cm; Wt 106.8 kg
[~2018-10-15 21:40] MED LIST changes: +DICY10CA13 PO; +REGL10TA6 PO
--- NOTE | 2018-10-15 23:09 | REPVR ---
EXAM: CT Head Without Contrast EXAM DATE/TIME: 10/15/2018 10:17 PM CLINICAL HISTORY: 53 years old, female; Syncope and collapse; Additional info: Syncope, blood thinner TECHNIQUE: Imaging protocol: Computed tomography images of the head without contrast. Radiation optimization: All CT scans at this facility use at least one of these dose optimization techniques: automated exposure control; mA and/or kV adjustment per patient size (includes targeted exams where dose is matched to clinical indication); or iterative reconstruction. COMPARISON: CT Head without contrast 09/26/2018 6:49 PM FINDINGS: Brain: The white-rm differentiation is preserved demonstrating no acute territorial type infarct. No acute intracranial hemorrhage is seen. No intracranial mass effect. Low-lying cerebellar tonsils are visualized, but this is incompletely evaluated. Midline shift: There is no midline shift. Ventricles: A small cavum septum pellucidum variant is visualized. No ventriculomegaly. Bones/joints: The calvarium demonstrates no evidence for a depressed fracture. Sinuses: Visualized sinuses are unremarkable. No fluid levels. Mastoid air cells: No mastoid effusion. Soft tissues: Unremarkable. IMPRESSION: No acute intracranial hemorrhage or acute territorial type infarct. Electronically signed by: Jermaine Canada On 10/15/2018 23:09:01 PM
[2018-10-15] MEDS ORDERED: NS 1,000 ML IV ONE (23:15)
[2018-10-15 23:49] LABS: BASO % 0.1 % (0.0-1.0); EOS % 0.6 % (0.0-3.0); HEMATOCRIT 42.8 % (36.0-47.0); HEMOGLOBIN 14.3 g/dl (12.0-15.5); LYMPH # 2.1 10^3/uL (1.5-4.5); LYMPH % 30.9 % (24.0-44.0); MEAN CORPUSCULAR HEMOGLOBIN 30.8 pg (27.0-33.0); MEAN CORPUSCULAR HGB CONC 33.4 g/dl (32.0-36.5); MEAN CORPUSCULAR VOLUME 92.2 fl (80.0-96.0); MONO # 0.4 10^3/uL (0.0-0.8); MONO % 6.3 % (0.0-5.0); NEUTROPHILS # 4.1 10^3/uL (1.8-7.7); NEUTROPHILS % 61.7 % (36.0-66.0); PLATELET COUNT, AUTOMATED 175 10^3/uL (150-450); RED BLOOD COUNT 4.64 10^6/uL (4.00-5.40); WHITE BLOOD COUNT 6.7 10^3/uL (4.0-10.0)
[2018-10-16 00:09] LABS: BLOOD UREA NITROGEN 14 MG/DL (7-18); CALCIUM LEVEL 9.1 MG/DL (8.5-10.1); CARBON DIOXIDE LEVEL 30 MEQ/L (21-32); CHLORIDE LEVEL 107 MEQ/L (98-107); CREATININE FOR GFR 0.97 MG/DL (0.55-1.30); GLOMERULAR FILTRATION RATE > 60.0 (>51); GLUCOSE, FASTING 91 MG/DL (70-100); POTASSIUM SERUM 3.8 MEQ/L (3.5-5.1); SODIUM LEVEL 143 MEQ/L (136-145)
[2018-10-16 00:30] VITALS: BP 107/61
--- NOTE | 2018-10-16 05:47 | ECGEPIP ---
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
[2018-10-16] MEDS ORDERED: AUGM875T28 PO (17:40)
== END 2018-10-16 00:50 | disposition home or self-care (01) ==
LOC: M ED 21:40
DX: R55 Syncope and collapse (principal); S00.81XA Abrasion of other part of head, initial encounter; W18.39XA Other fall on same level, initial encounter; Y92.89 Other specified places as the place of occurrence of the external cause; I10 Essential (primary) hypertension; M79.7 Fibromyalgia; K21.9 Gastro-esophageal reflux disease without esophagitis; I48.91 Unspecified atrial fibrillation; Z79.899 Other long term (current) drug therapy; Z79.01 Long term (current) use of anticoagulants; Z88.0 Allergy status to penicillin; Z88.1 Allergy status to other antibiotic agents; Z88.2 Allergy status to sulfonamides; Z88.8 Allergy status to other drugs, medicaments and biological substances

== ENCOUNTER 2018-10-16 17:02 | Emergency (ER) | payer OTHER ==
[~2018-10-16] VITALS: Ht 157.5 cm; Wt 110.6 kg
[2018-10-16 17:02] VITALS: BP 137/88
[2018-10-16] MEDS ORDERED: AUGM875T28 PO (17:40)
[2018-10-16] MEDS ORDERED: KETOROLAC TROMETHAMINE 10 MG TAB PO ONE (17:45)
== END 2018-10-16 18:01 | disposition home or self-care (01) ==
LOC: M ED 17:02
DX: S00.81XA Abrasion of other part of head, initial encounter (principal); L08.9 Local infection of the skin and subcutaneous tissue, unspecified; W19.XXXA Unspecified fall, initial encounter; Y92.89 Other specified places as the place of occurrence of the external cause; I11.0 Hypertensive heart disease with heart failure; I50.9 Heart failure, unspecified; E78.5 Hyperlipidemia, unspecified; M79.7 Fibromyalgia; G47.33 Obstructive sleep apnea (adult) (pediatric); J44.9 Chronic obstructive pulmonary disease, unspecified; E05.90 Thyrotoxicosis, unspecified without thyrotoxic crisis or storm; M54.9 Dorsalgia, unspecified; F41.9 Anxiety disorder, unspecified; F32.9 Major depressive disorder, single episode, unspecified; K52.9 Noninfective gastroenteritis and colitis, unspecified; Z87.19 Personal history of other diseases of the digestive system; Z87.442 Personal history of urinary calculi; Z86.14 Personal history of Methicillin resistant Staphylococcus aureus infection; Z88.0 Allergy status to penicillin; Z88.8 Allergy status to other drugs, medicaments and biological substances; Z88.1 Allergy status to other antibiotic agents; Z88.2 Allergy status to sulfonamides; Z79.899 Other long term (current) drug therapy; Z79.01 Long term (current) use of anticoagulants

== ENCOUNTER 2018-10-24 19:37 | Observation (INO) | payer OTHER ==
[~2018-10-24] VITALS: Ht 157.5 cm; Wt 112.0 kg
[2018-10-24] MEDS ORDERED: METO1TAB87 PO (20:48)
[2018-10-24 20:49] LABS: BASO % 0.1 % (0.0-1.0); EOS # 0.1 10^3/uL (0.0-0.50); EOS % 0.7 % (0.0-3.0); LYMPH % 28.4 % (24.0-44.0); MEAN CORPUSCULAR HGB CONC 33.3 g/dl (32.0-36.5); MEAN CORPUSCULAR VOLUME 93.1 fl (80.0-96.0); MONO # 0.5 10^3/uL (0.0-0.8); MONO % 7.8 % (0.0-5.0); NEUTROPHILS # 4.3 10^3/uL (1.8-7.7); NEUTROPHILS % 62.6 % (36.0-66.0); PLATELET COUNT, AUTOMATED 185 10^3/uL (150-450); RED BLOOD COUNT 4.51 10^6/uL (4.00-5.40); WHITE BLOOD COUNT 6.9 10^3/uL (4.0-10.0)
[2018-10-24] MEDS ORDERED: NS 500 ML IV ONE (21:15)
[2018-10-24] MEDS ORDERED: ACETAMINOPHEN TAB 650MG DOSE (2X325MG) PO ONE (21:15)
--- NOTE | 2018-10-24 21:28 | REPVR ---
EXAM: CT Head Without Contrast EXAM DATE/TIME: 10/24/2018 8:40 PM CLINICAL HISTORY: 53 years old, female; Syncope and collapse TECHNIQUE: Imaging protocol: Computed tomography images of the head without contrast. Radiation optimization: All CT scans at this facility use at least one of these dose optimization techniques: automated exposure control; mA and/or kV adjustment per patient size (includes targeted exams where dose is matched to clinical indication); or iterative reconstruction. COMPARISON: CT Head without contrast 10/15/2018 10:15 PM FINDINGS: Brain: No acute intracranial hemorrhage or mass effect. No discrete geographic area of hypoattenuation to suggest large vessel territorial infarct identified at this time. Ventricles: No ventriculomegaly. Bones/joints: No acute fracture. Sinuses: Visualized sinuses are unremarkable. No fluid levels. Mastoid air cells: Visualized mastoid air cells are well aerated. No mastoid effusion. Soft tissues: Unremarkable. IMPRESSION: No acute intracranial hemorrhage or evidence of large vessel territorial infarct. Electronically signed by: Andrew Vega On 10/24/2018 21:27:55 PM
[2018-10-24] MEDS ORDERED: fentaNYL 100 MCG/2 ML INJECTION (J3010) IV ONE (23:30)
[2018-10-25 00:45] LABS: BLOOD UREA NITROGEN 16 MG/DL (7-18); CALCIUM LEVEL 8.5 MG/DL (8.5-10.1); CARBON DIOXIDE LEVEL 30 MEQ/L (21-32); CHLORIDE LEVEL 109 MEQ/L (98-107); CK-MB VALUE MASS < 1.0 NG/ML (<3.6); CPK CREATINE PHOSPHOKINASE 70 U/L (26-192); CREATININE FOR GFR 1.14 MG/DL (0.55-1.30); GLOMERULAR FILTRATION RATE 53.1 (>51); GLUCOSE, FASTING 95 MG/DL (70-100); MB/CK RELATIVE INDEX 1.43 (< OR =4); POTASSIUM SERUM 3.9 MEQ/L (3.5-5.1); SODIUM LEVEL 143 MEQ/L (136-145); TROPONIN I < 0.02 NG/ML (< 0.10)
[2018-10-25] MEDS ORDERED: KETOROLAC 30 MG/ML VIAL (J1885) IV ONE (01:45)
--- NOTE | 2018-10-25 02:05 | HPEPDOC ---
[facility] Medical History & Physical Date of Admission Oct 25, 2018 Date of Service: Oct 25, 2018 Primary Care Physician: A Other Provider Makayla DUTTA Attending Physician: ASYA MARQUES MD History and Physical Time of service 2:35 AM CHIEF COMPLAINT: Syncope HISTORY OF PRESENT ILLNESS: is a 53-year-old female with a history of frequent syncopal episodes. Yesterday the patient is c/o "not feeling good all day woozy tired...", having a BEAULIEU, nausea, and 10 out of 10 mid chest pressure that has now resolved. This evening she was found unresponsive, by her sister, who reports it took about 10 minutes to wake her up. Per discussion with with the ED attending her heart rate about 160 when EMS evaluated her, but she was back in normal sinus rhythm, when arrived at the hospital. The patient admits to being under stress because of family issues and is not compliant with her CPAP. She denies having dyspnea, denies having leg swelling, denies feeling like she is retaining water. Shortly after arrival in the ED, the patient reports having another episode of rapid A. fib with palpitations. She was last admitted for evaluation of syncopal in September of this year. The workup was negative; based on the notes, it was thought that her syncopal episode may be vasovagal or secondary to pseudoseizures. She discharged from [facility] on Sunday after being admitted for evaluation of chest pain; the workup including a stress test was negative REVIEW OF SYSTEMS: 12 point review of systems negative except as listed in HPI PAST MEDICAL/SURGICAL HISTORY: 1 CAD s/p stents / Dyslipidemia 2 Paroxysmal Afib on NOAC 3 Pseudoseizures 4. Chronic lower back pain 5. History of Arthur's palsy 6 .Morbid obesity 7. Bipolar disorder/seasonal affective disorder/borderline personality disorder 8. Fibromyalgia 9. Migraine BEAULIEU 10. Status post KADIE 11. Status post tubal ligation 12. Status post cholecystectomy SOCIAL HISTORY: Quit smoking and drinking. FAMILY HISTORY: Bipolar disorder Objective heart failure ALLERGIES: Please see below. HOME MEDICATIONS: Please see below. PHYSICAL EXAMINATION: VITAL SIGNS: See below GENERAL APPEARANCE: Obese, well-developed, not in apparent distress HEENT: No cephalic, atraumatic. Mucous members moist and pink, neck short CARDIOVASCULAR: Regular rate and rhythm. No murmurs, rubs or gallops, radial pulses difficult to palpate LUNGS: Equal air entry bilaterally, lungs clear to auscultation on room air ABDOMEN: Bowel sounds hypoactive, abdomen soft and nontender on palpation MUSCULOSKELETAL: Range of motion intact 4 extremities EXTREMITIES: No bilateral lotion edema. INTEGUMENT: Has multiple tattoos NEUROLOGICAL: Cranial nerves II-12 grossly intact, speech not dysarthric PSYCHIATRIC: Alert and oriented to person, place and time, able to understand and follow commands LABORATORY DATA: The CBC and chemistries was unremarkable IMAGING: CT of the head was unremarkable. Chest x-ray based on personal visualization appears unremarkable but the final report is pending MICROBIOLOGY: Please see below. ASSESSMENT: Ms. Jones is a 53-year-old female the past medical history of CAD, chronic lower back pain, morbid obesity, and paroxysmal atrial fibrillation who will be admitted for evaluation of syncope. . PLAN: 1. Syncope Likely 2/2 Paroxysmal Atrial Fibrillation based on EMS reports of fib with RVR RVR may have been triggered by stress, or and /or noncompliance with CPAP During the physical exam shows back in normal sinus rhythm CT of the head was unremarkable Trop, TSH, K, Mg, Ca, within normal limits Unable to track down of recent echocardiogram Plan: admit to PCU /f/u BNP / continue home meds with IV Cardizem PRN / c/w Eliquis / fall precautions / Echo to r/o valvulopathy / discussed the importance of compliance to CPAP / f/u w in the morning 2. Migrane BEAULIEU Plan continue home meds. 3. Chronic CAD s/p stents / Dyslipidemia Plan continue home meds. 4. Fibromyalgia / Chronic lower back pain Plan continue home meds. 5 .Bipolar disorder/seasonal affective disorder/borderline personality disorder Plan continue home meds. 6. Morbidy Obesity -BMI 44.8 Plan: can f/u w PCP for seo executive consult, referral for Bariatric surgery / recommend cardiovascular exercise for 40 min 4-5 days a week DVT prophylaxis with apixaban Disposition pending clinical course Vital Signs Vital Signs Date Time Temp Pulse Resp B/P (MAP) Pulse Ox O2 Delivery O2 Flow Rate FiO2 10/25/18 01:54 75 18 113/69 (84) 97 Room Air 10/24/18 20:11 98.8 Laboratory Data CBC/BMP Laboratory Tests 10/24/18 20:40 Red Blood Count 4.51, Mean Corpuscular Volume 93.1, Mean Corpuscular Hemoglobin 31.0, Mean Corpuscular Hemoglobin Concent 33.3, Red Cell Distribution Width 13.2, Neutrophils (%) (Auto) 62.6, Lymphocytes (%) (Auto) 28.4, Monocytes (%) (Auto) 7.8 H, Eosinophils (%) (Auto) 0.7, Basophils (%) (Auto) 0.1, Neutrophils # (Auto) 4.3, Lymphocytes # (Auto) 2.0, Monocytes # (Auto) 0.5, Eosinophils # (Auto) 0.1, Basophils # (Auto) 0.0 10/24/18 23:48 Calcium Level 8.5, Total Creatine Kinase 70 Home Medications Scheduled Apixaban (Eliquis) 5 Mg Tablet, 5 MG PO BID Famotidine (Famotidine) 20 Mg Tablet, 20 MG PO DAILY Metaxalone (Metaxalone) 800 Mg Tablet, 800 MG PO QHS Metoprolol Tartrate (Metoprolol Tartrate) 25 Mg Tablet, 25 MG PO BID Pantoprazole Sodium (Pantoprazole Sodium) 40 Mg Tablet.dr, 40 MG PO BID Sucralfate (Sucralfate) 1 Gm Tablet, 1 GM PO BID Allergies Coded Allergies: pregabalin (Verified Allergy, Severe, Angioedema, 10/24/18) clindamycin (Verified Allergy, Intermediate, vomiting swelling, 10/24/18) diclofenac (Verified Allergy, Intermediate, swelling all over body, 10/24/18) sorbitan esters (Verified Allergy, Unknown, 10/24/18) from zipsoragitation amoxicillin (Verified Adverse Reaction, Intermediate, VOMITING, 10/25/18) bupropion (Verified Adverse Reaction, Intermediate, increased tremors, 10/24/18) Wellbutin clavulanic acid (Verified Adverse Reaction, Intermediate, VOMITING, 10/25/18) cyclobenzaprine (Verified Adverse Reaction, Intermediate, agitation, 10/24/18) doxycycline (Verified Adverse Reaction, Mild, vomiting, 10/24/18) sulfamethoxazole (Verified Adverse Reaction, Mild, vomiting, 10/24/18) W/trimethopri from bactrim trimethoprim (Verified Adverse Reaction, Mild, VOMITING, 10/24/18) A-FIB/CHADSVASC A-FIB History Current/History of A-Fib/PAF?: Yes Current PO Anticoag Therapy: Yes Treatment Treatment ordered: Apixaban ASYA MARQUES MD Oct 25, 2018 02:05
[2018-10-25] MEDS ORDERED: META1TAB22 PO (03:00)
[2018-10-25] MEDS ORDERED: METO25TA4 PO (03:00)
[2018-10-25 03:03] LABS: NT-PRO BNP 29 PG/ML (<125)
[2018-10-25 03:40] VITALS: BP 96/55
[2018-10-25 05:38] LABS: HEMATOCRIT 39.4 % (36.0-47.0); HEMOGLOBIN 12.8 g/dl (12.0-15.5); MEAN CORPUSCULAR HEMOGLOBIN 30.8 pg (27.0-33.0); MEAN CORPUSCULAR HGB CONC 32.5 g/dl (32.0-36.5); MEAN CORPUSCULAR VOLUME 94.7 fl (80.0-96.0); PLATELET COUNT, AUTOMATED 144 10^3/uL (150-450); RED BLOOD COUNT 4.16 10^6/uL (4.00-5.40); WHITE BLOOD COUNT 5.1 10^3/uL (4.0-10.0)
[2018-10-25 05:57] LABS: CALCIUM LEVEL 8.2 MG/DL (8.5-10.1); CREATININE FOR GFR 1.1 MG/DL (0.55-1.30); GLOMERULAR FILTRATION RATE 55.3 (>51)
--- NOTE | 2018-10-25 07:18 | ECGEPIP ---
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
[2018-10-25 08:00] VITALS: BP 131/73
[2018-10-25] MEDS ORDERED: SLF 3 ML SYR IV PRN (08:00)
[2018-10-25] MEDS ORDERED: PROMETHAZINE INJ 25 MG/ML VIAL (J2550) IV ONE (08:00)
--- NOTE | 2018-10-25 08:27 | REP ---
Portable chest x-ray: Single view. History: Syncope. Comparison study: September 26, 2018. Findings: The lungs are symmetrically aerated and free of infiltrate. There is a granulomatous nodule in the left base unchanged. Lung thomason are otherwise clear. Pleural angles are sharp. Cardiomediastinal silhouette is unremarkable. No significant bony abnormality is seen. Impression: No active disease. Electronically Signed by Dominic Chao MD 10/25/2018 08:19 A
[2018-10-25] MEDS: FAMOTIDINE 20 MG TAB PO SCH (08:33)
[2018-10-25] MEDS: APIXABAN 5 MG TAB (ELIQUIS) PO SCH ×2 (08:33→20:51)
[2018-10-25] MEDS: METOPROLOL TART 25 MG TABLET PO SCH ×2 (08:33→20:52)
[2018-10-25] MEDS: SUCRALFATE 1 GM TAB PO SCH ×2 (08:33→20:51)
[2018-10-25] MEDS: PANTOPRAZOLE 40MG TAB (PROTONIX) PO SCH ×2 (08:33→20:51)
[2018-10-25] MEDS: ACETAMINOPHEN TAB 650MG DOSE (2X325MG) PO PRN ×3 (08:34→20:51)
[2018-10-25 12:00] VITALS: BP 102/68
[2018-10-25] MEDS: SLF 3 ML SYR IV SCH ×2 (12:43→22:08)
[2018-10-25 16:00] VITALS: BP 92/47
[2018-10-25] MEDS ORDERED: NORCO, ANEXSIA 5/325MG TABLET (HYDROcodone/ACETAMINOPHEN) PO ONE (17:30)
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
[2018-10-25 18:47] VITALS: BP 109/56
[2018-10-25] MEDS: METAXALONE 800 MG TABLET PO SCH (20:51)
[2018-10-26] VITALS (8 sets, daily range): BP systolic 94–138; BP diastolic 52–83
[2018-10-26] MEDS ORDERED: PROMETHAZINE INJ 25 MG/ML VIAL (J2550) IV ONE (00:15)
[2018-10-26] MEDS: SLF 3 ML SYR IV SCH ×3 (00:26→21:27)
[2018-10-26 06:01] LABS: HEMATOCRIT 38.1 % (36.0-47.0); HEMOGLOBIN 12.2 g/dl (12.0-15.5); MEAN CORPUSCULAR HEMOGLOBIN 29.9 pg (27.0-33.0); MEAN CORPUSCULAR VOLUME 93.4 fl (80.0-96.0); PLATELET COUNT, AUTOMATED 148 10^3/uL (150-450); RED BLOOD COUNT 4.08 10^6/uL (4.00-5.40); WHITE BLOOD COUNT 4.6 10^3/uL (4.0-10.0)
[2018-10-26 06:53] LABS: CALCIUM LEVEL 8.7 MG/DL (8.5-10.1); CREATININE FOR GFR 1.03 MG/DL (0.55-1.30); GLOMERULAR FILTRATION RATE 59.7 (>51); MAGNESIUM LEVEL 2.3 MG/DL (1.8-2.4)
[2018-10-26] MEDS ORDERED: ONDANSETRON 4 MG ORAL DISINTEGRATING TAB (Q0162 PER 1MG) PO PRN (08:00)
[2018-10-26] MEDS: PANTOPRAZOLE 40MG TAB (PROTONIX) PO SCH ×2 (08:19→21:26)
[2018-10-26] MEDS: ONDANSETRON 4MG/2ML VIAL (J2405) IV SCH ×2 (08:19→13:08)
[2018-10-26] MEDS: METOPROLOL TART 25 MG TABLET PO SCH ×2 (08:19→21:27)
[2018-10-26] MEDS: APIXABAN 5 MG TAB (ELIQUIS) PO SCH ×2 (08:19→21:26)
[2018-10-26] MEDS: FAMOTIDINE 20 MG TAB PO SCH (08:19)
[2018-10-26] MEDS: SUCRALFATE 1 GM TAB PO SCH ×2 (08:19→21:26)
--- NOTE | 2018-10-26 10:20 | ECHO ---
DATE OF PROCEDURE: 10/25/2018 DATE OF : 1965 AGE: 53 REFERRING PROVIDER: Dr. Debra To INPATIENT: Room 3216 REASON FOR ECHOCARDIOGRAM: Cardiac arrhythmias. 2-D MEASUREMENTS: IVS: 1.0 cm LV: 4.4 cm LVPW: 1.0 cm LA: 3.3 cm Aorta: 2.8 cm RV: 3.3 cm DOPPLER MEASUREMENTS: Peak velocity across the aortic valve: 1.2 m/s Peak velocity across the LVOT: 0.811 m/s Mitral E: 0.56 Mitral A: 0.61 Ratio: 0.9 Maximum tricuspid valve velocity: 2.0 m/s 2-D COMMENTS: 1. Normal left ventricular size, wall thickness, and normal global left ventricular systolic function. The estimated left ventricular systolic ejection fraction is 65%. 2. The left atrium appeared to be normal. The right atrium and the right ventricle were not well visualized, but appeared to be normal in limited views. 3. The atrial septum appeared to be normal without evidence of defect or shunt. 4. Normal aortic root. 5. No pericardial effusion seen. 6. The aortic valve, mitral valve, tricuspid valve, and pulmonic valve appeared to be normal. The proximal pulmonary artery branches appeared to be normal in size in limited views. 7. The inferior vena cava was not visualized. DOPPLER: No significant valvular abnormalities detected, but trace tricuspid regurgitation. The calculated pulmonary artery systolic pressure was normal, less than 30 mmHg. Abnormal relaxation pattern was noted across the mitral valve annulus consistent with features of grade 1 left ventricular diastolic dysfunction. IMPRESSIONS: 1. Normal global left ventricular systolic function. There are some features of left ventricular diastolic dysfunction manifested by abnormal relaxation. 2. Trace tricuspid regurgitation with a normal calculated pulmonary artery systolic pressure. 3. The study was technically limited due to poor acoustic window. 4. The patient appeared to be in normal sinus rhythm during the test. [facility]
[2018-10-26] MEDS ORDERED: PROMETHAZINE 12.5 MG SUPP PR PRN (17:15)
--- NOTE | 2018-10-26 17:22 | IPNPDOC ---
Text Note Date of Service The patient was seen on 10/26/18. NOTE S: no CP no syncope. eating muffin complaining of nausea. states wants to be "knocked out" for loop recorder insertion sunday or sunday. States IV access is tender when flushing and wants PICC line. O: Vitals as below General: pleasant, NAD AAOx3, sitting in bed eating meal HRRR LCTA Ext: left wrist/forearm IV intact and flushes, no infiltration A/P: 1) Nausea - patient refusing zofran. will give trial of phenergan 2) Syncope Likely 2/2 Paroxysmal Atrial Fibrillation based on EMS reports of fib with RVR RVR may have been triggered by stress, or and /or noncompliance with CPAP Currently in NSR on tele. Cardiology consult ( Dr Garibay) and plan for loop recorder sunday or sunday 3). Migrane BEAULIEU Plan continue home meds. 4) . Chronic CAD s/p stents / Dyslipidemia Plan continue home meds. 5) . Fibromyalgia / Chronic lower back pain Plan continue home meds. 6) .Bipolar disorder/seasonal affective disorder/borderline personality disorder Plan continue home meds. 7) . Morbidy Obesity - non compliant with dietary regimen in hospital Current Medications Medications (Trade) Dose Ordered Sig/Dede Route PRN Reason Start Time Stop Time Status Last Admin Dose Admin Acetaminophen (Tylenol Tab) 650 mg Q4HP PRN PO PAIN OR FEVER 10/25/18 08:00 10/25/18 20:51 Apixaban (Eliquis) 5 mg BID PO 10/25/18 09:00 10/26/18 08:19 Diltiazem HCl (Cardizem) 15 mg Q6HP PRN IV afib w HR >120 10/25/18 02:30 Famotidine (Pepcid) 20 mg DAILY PO 10/25/18 09:00 10/26/18 08:19 Home Med (Med Rec Complete!) ASDIRECTED XX 10/25/18 03:00 10/25/18 03:07 DC Metaxalone (Skelaxin) 800 mg QHS PO 10/25/18 21:00 10/25/18 20:51 Metoprolol Tartrate (Lopressor) 25 mg BID PO 10/25/18 09:00 10/25/18 08:33 Ondansetron HCl (ZOFRAN INJection) 4 mg Q4H IV 10/26/18 09:00 10/26/18 13:08 Ondansetron HCl (Zofran Odt) 4 mg Q4HP PRN PO NAUSEA OR VOMITING 10/26/18 08:00 Pantoprazole Sodium (Protonix) 40 mg BID PO 10/25/18 09:00 10/26/18 08:19 Sodium Chloride (Saline Lock Flush) 2 ml ASDIRECTED PRN IV SEE LABEL COMMENTS 10/25/18 08:00 Sodium Chloride (Saline Lock Flush) 2 ml SLF IV 10/25/18 14:00 10/26/18 13:09 Sucralfate (Carafate) 1 gm BID PO 10/25/18 09:00 10/26/18 08:19 VS,Ivanbone, I+O VS, Fishbone, I+O Laboratory Tests 10/26/18 05:25 Red Blood Count 4.08, Mean Corpuscular Volume 93.4, Mean Corpuscular Hemoglobin 29.9, Mean Corpuscular Hemoglobin Concent 32.0, Red Cell Distribution Width 13.2, Calcium Level 8.7 Vital Signs Date Time Temp Pulse Resp B/P (MAP) Pulse Ox O2 Delivery O2 Flow Rate FiO2 10/26/18 08:19 51 10/26/18 07:47 97.1 18 119/64 (82) 100 10/25/18 03:24 Room Air I&O- Last 24 Hours up to 6 AM 10/26/18 06:00 Intake Total 1260 ml Output Total 600 ml Balance 660 ml ROMARIO BETANCUR DO Oct 26, 2018 12:02
[2018-10-26] MEDS: PROMETHAZINE 25 MG TAB PO PRN (18:01)
[2018-10-26] MEDS: METAXALONE 800 MG TABLET PO SCH (21:26)
[2018-10-27] MEDS: PROMETHAZINE 25 MG TAB PO PRN ×4 (00:10→18:57)
[2018-10-27 04:00] VITALS: BP 96/52
[2018-10-27] MEDS: SLF 3 ML SYR IV SCH ×3 (05:34→20:32)
[2018-10-27 08:00] VITALS: BP 107/59
[2018-10-27] MEDS: METOPROLOL TART 25 MG TABLET PO SCH ×2 (08:27→20:32)
[2018-10-27] MEDS: APIXABAN 5 MG TAB (ELIQUIS) PO SCH ×2 (08:32→20:32)
[2018-10-27] MEDS: FAMOTIDINE 20 MG TAB PO SCH (08:32)
[2018-10-27] MEDS: PANTOPRAZOLE 40MG TAB (PROTONIX) PO SCH ×2 (08:32→20:32)
[2018-10-27] MEDS: SUCRALFATE 1 GM TAB PO SCH ×2 (08:33→20:32)
--- NOTE | 2018-10-27 10:36 | IPNPDOC ---
Text Note Date of Service The patient was seen on 10/27/18. NOTE S: patient states no recurrence of syncope, no CP, no SOB; continues with chronic nausea and is requesting a shower before tele leads placed back on O: Vitals as below General: NAD AAOx3 HRRR LCTA Ext: no edema A/P: 1) Syncope Likely 2/2 Paroxysmal Atrial Fibrillation based on EMS reports of fib with RVR RVR may have been triggered by stress, or and /or noncompliance with CPAP Currently in NSR on tele. Cardiology consult ( Dr Garibay) and plan for loop recorder sunday or sunday 2) . Chronic CAD s/p stents / Dyslipidemia Plan continue home meds 3). Migrane BEAULIEU Plan continue home meds. . 4) . Fibromyalgia / Chronic lower back pain Plan continue home meds. 5) .Bipolar disorder/seasonal affective disorder/borderline personality disorder Plan continue home meds. 6) . Morbidy Obesity - non compliant with dietary regimen in hospital VS,Fishbone, I+O VS, Fishbone, I+O Vital Signs Date Time Temp Pulse Resp B/P (MAP) Pulse Ox O2 Delivery O2 Flow Rate FiO2 10/27/18 08:27 58 10/27/18 08:00 96.9 17 107/59 (75) 95 10/25/18 03:24 Room Air I&O- Last 24 Hours up to 6 AM 10/27/18 06:00 Intake Total 1280 ml Output Total 1000 ml Balance 280 ml ROMARIO BETANCUR DO Oct 27, 2018 10:36
[2018-10-27 12:00] VITALS: BP 119/64
[2018-10-27 16:00] VITALS: BP 114/58
[2018-10-27 20:00] VITALS: BP 118/55
[2018-10-27] MEDS: METAXALONE 800 MG TABLET PO SCH (20:32)
[2018-10-27 22:01] LABS: CK-MB VALUE MASS < 1.0 NG/ML (<3.6); CPK CREATINE PHOSPHOKINASE 52 U/L (26-192); MB/CK RELATIVE INDEX 1.92 (< OR =4); TROPONIN I < 0.02 NG/ML (< 0.10)
[2018-10-27 23:59] VITALS: BP 114/54
[2018-10-28] VITALS (7 sets, daily range): BP systolic 93–135; BP diastolic 51–79
--- NOTE | 2018-10-28 01:48 | CR ---
DATE OF SERVICE: 10/26/2018 CARDIOLOGY CONSULTATION: REFERRING PROVIDER: Dr. Debra To REASON FOR THE CONSULTATION: Syncope. PRIMARY PROVIDER: Makayla Nam HISTORY OF PRESENT ILLNESS: 53-year-old woman who has started coming to the office, and the first time was on 10/02/2018. Prior to that, she was seeing Dr. Santillan. She has a long history of syncope and near syncope versus seizures/pseudoseizures, for which she has had both neurology and cardiology workup but have been negative. She, however, has a history of paroxysmal atrial fibrillation as well as hyperlipidemia, hypertension, diastolic heart failure, chronic obstructive pulmonary disease (COPD), morbid obesity and sleep apnea, arthritis/fibromyalgia rheumatica. She was recently admitted and treated at [facility] and underwent extensive cardiology workup. Her echocardiogram was reported to be normal with a left ventricular ejection fraction (LVEF) estimated at 60% and no regional wall motion abnormalities. There was no raoul- or tachyarrhythmia on telemetry. She also had a cardiac catheterization that revealed no ischemia/infarction. She was seen by neurology and had done that was negative. She was told upon discharge from the hospital that she needed a classroom monitor and also extensive neurologic workup to be done at [facility]. She went home, then came to back to the hospital after one episode of syncope or near syncope. It was reported this time that her heart rate was about 150-160 beats per minute when emergency medical service (EMS) arrived on scene. She was brought to the emergency room (ER), and she was in normal sinus rhythm. The rest of her vital signs were stable. She was admitted for further management and monitoring, and cardiology consult was called. When I saw Mrs. Renetta Jones this morning, she was sitting up in the bed in no acute distress at rest. She has no specific complaint of chest pain or palpitations. She has not been walking much. She stated she does not feel well. There is no report of cough. There is no report of hemoptysis or fever. There is no vomiting, diarrhea, melena, or hematemesis. She complained of feeling nauseated. There is no focal manifestation. There is no active swelling or redness of the joints. Also, upon discharge from [facility], she also was told that she needs to go for re-evaluation of her obstructive sleep apnea because she might benefit from a continuous positive airway pressure (CPAP) machine. MEDICATIONS: - ondansetron - Skelaxin 800 mg by mouth at hour of sleep - apixaban 5 mg by mouth twice a day - famotidine/Pepcid 20 mg by mouth daily - metoprolol tartrate 25 mg by mouth twice a day - pantoprazole 40 mg by mouth twice a day - sucralfate 1 gram by mouth twice a day - Tylenol 650 mg every 4 hours as needed for mild pain or fever - Cardizem as needed for heart rate more than 120 PAST SURGICAL HISTORY: Positive for: 1. Tubal ligation. 2. Cholecystectomy. 3. Total hysterectomy. 4. Benign tumor removed from the right leg. FAMILY HISTORY: Positive for coronary artery disease (CAD), her sister. She also has a sister with history of CVA. Her father had heart failure. SOCIAL HISTORY: Patient lives with her family in [facility] [address] She does not smoke or abuse alcohol. She is single. She is disabled. ALLERGIES: According to her chart, she has allergies to AMOXICILLIN, BUPROPION, CLAVULANIC ACID, CLINDAMYCIN, CYCLOBENZAPRINE, DICLOFENAC, DOXYCYCLINE, PREGABALIN, SORBITAN ESTERS, SULFAMETHOXAZOLE, shellfish. PHYSICAL EXAMINATION: Patient is alert and oriented, in no acute distress at rest, and pleasant. Her most recent vital signs revealed a blood pressure of 126/69 with a pulse of 60, respirations 18, and her maximum temperature is 97.2 degrees Fahrenheit with an oxygen saturation of 97% on room air. Examination of the head: Atraumatic. Neck: Is supple and no jugular venous distention (JVD) appreciated. The lungs did not reveal any wheezing or crackles. The heart examination revealed irregular heart sounds without gallops. The point of maximal impulse (PMI) is not displaced. There is no rub. I could not appreciate any murmurs. Abdomen: Is obese and nontender. Extremities: Revealed trace pedal edema. Neurological: Examination is negative for focal deficit. LABS: CBC done today revealed WBC of 4.6, hemoglobin 12.2, hematocrit 38.1, and platelet 148,000. BMP revealed a sodium of 141, potassium 4.0, chloride 111, CO2 of 24, BUN 22, creatinine 1.03, GFR 59.7, fasting glucose 96, calcium 8.7. Serum platelet on admission was 185,000. EKG on admission revealed normal sinus rhythm at 83 beats per minute, low-voltage QRS complexes noted in the chest leads, and Q waves noted in leads III and aVF. Head CT on admission, 10/24/2018, revealed no acute disease process. Chest x-ray on 10/24/2018 also revealed no acute disease process. Telemetry strips were reviewed and revealed normal sinus rhythm. IMPRESSION: 53-year-old woman with above medical problems has been having for a long time episodes of near syncope/syncope and was also diagnosed with possible pseudoseizures. Extensive cardiac workup and neurologic workup have been negative. About 5-6 years ago, she had an implantable loop recorder and, at that time, she was living in [place], [place]. She had it for 6 months and for this reason, it was explanted. She did not have any episodes when she had it. Her diagnostic was discussed with her, and another implantable loop recorder was recommended. If she agrees, I will have Dr. Santillan do it for her. Otherwise, she will be referred to see electrophysiology (EP) in [place], [place]. She might need neurology input. While at [facility], she was checked for orthostatic changes and it was negative. Her blood pressure, however, was low, and her lisinopril was discontinued. She is now taking a smaller dose of the beta-christ/metoprolol tartrate, and I will continue same. The last time she had received it was yesterday morning. It was a pleasure to participate in the care of Mrs. Renetta Jones for her underlying cardiac condition. I will continue to monitor her along with you. She might benefit for monitoring for orthostatic changes in her vital signs. If needed, we will cut back more on her beta-christ/metoprolol tartrate. Increased ambulation is recommended. Case was discussed with her hospitalist.
[2018-10-28] MEDS: SLF 3 ML SYR IV SCH ×3 (05:28→21:52)
[2018-10-28 06:02] LABS: CK-MB VALUE MASS < 1.0 NG/ML (<3.6); CPK CREATINE PHOSPHOKINASE 43 U/L (26-192); MB/CK RELATIVE INDEX 2.33 (< OR =4); TROPONIN I < 0.02 NG/ML (< 0.10)
--- NOTE | 2018-10-28 07:13 | IPN ---
DATE: 10/27/2018 Mrs. Renetta Jones was seen earlier today, she was sitting up in bed in no acute distress at rest and having lunch. She denies any chest pain, palpitations. She does complain of fatigue. There has not been any episode of syncope or near syncope. There is no report of bleeding. She has been ambulating, but mainly in the room. PHYSICAL EXAMINATION: The patient is alert and oriented, in no acute distress at rest and very present. Her vital signs this morning revealed a blood pressure of 119/64 with pulse of 55, respirations 18 and her maximum temperature is 97.3 degrees Fahrenheit with an oxygen saturation of 99% on room air. Examination of the head atraumatic. Neck is supple, no JVD appreciated. Lungs are clear bilaterally on auscultation without any wheezing or crackles. Heart examination revealed normal S1 and S2 without gallops. The PMI is not displaced. There is no rub. I could not appreciate any murmurs. Abdomen is protuberant, soft. Extremities no pedal edema. Neurologic examination is negative for focal deficit. LABS: CBC revealed WBC of 4.6, hemoglobin 12.2, hematocrit 38.1 and platelet 148,000. BMP revealed a sodium of 141, potassium 4.0, chloride 111, CO2 24, BUN 22, creatinine 1.03, GFR 59.7, fasting glucose 96 and calcium 8.7. Serum magnesium is 2.3. Telemetry revealed normal sinus rhythm. IMPRESSION: 1. Syncope, recurrent in nature. Etiology is unclear. The patient recently had extensive workup at [facility] and upon discharge, a heart monitor was recommended. She had both cardiology and neuro workup. She has been on telemetry here and no significant arrhythmia noted. She also has not been having any episodes of syncope or near syncope. The case will be discussed with Dr. Santillan and will try to implant a loop recorder for her prior to her discharge. This was discussed with her, she is in agreement. 2. History of hypertension, under control. Blood pressure has been low and her beta-christ was recently decreased while she was at [facility]. Her DOMINIC inhibitor was then discontinued. 3. History of arthritis, degenerative joint disease (DJD), and degenerative diseases. 4. Anxiety/depression, being addressed. 5. Morbid obesity. 6. Atrial fibrillation, paroxysmal in nature and the patient is currently on Coumadin.
--- NOTE | 2018-10-28 08:41 | IPN ---
DATE: 10/28/2018 I was signed out Mrs. Ramirez from Dr. Garibay. She is a 53-year-old female who reports longstanding history of syncopal events. So far there has not been any elucidated etiology. This time she presented to [facility] after another episode. She has minimal recollection of the event. All she recalls is she stood up, was very nauseated and then her sister found her on the floor. Apparently there was no seizure-like activity, she did not vomit this time, but she had some other episodes when she actually threw up and it took about 10 minutes for her to regain consciousness. Since she has been here there have not been any events. I reviewed her night monitor and there were no arrhythmias. Vital signs this morning blood pressure 99/51, heart rate in 60s and 70s, occasional dipping into 50s. She is afebrile. Weight is 111 kg. She is alert and oriented appropriate. No JVP elevation. Lungs are clear. Heart exam reveals regular rhythm without gallop. Extremities are free of edema. Laboratory white, she has normal CBC and basic metabolic panel has not been obtained, but several ones were normal. Her cardiac enzymes are negative. ASSESSMENT/PLAN: Mrs. Jones is a 53-year lady who has been a patient of Dr. Garibay's. She comes with recurrent syncopal events. Per communication with Dr. Garibay, she had outpatient evaluation that was unrevealing and there is a plan for implantation of Reveal monitor. Dr. Garibay informed me that he will make arrangements with Dr. Santillan for the implant. I do not have much to add to her management. The history sounds neurocardiogenic to me and consequently I am not convinced that arrhythmia will be discovered.
[2018-10-28] MEDS: METOPROLOL TART 25 MG TABLET PO SCH ×2 (08:46→20:41)
[2018-10-28] MEDS: PANTOPRAZOLE 40MG TAB (PROTONIX) PO SCH ×2 (08:46→20:41)
[2018-10-28] MEDS: FAMOTIDINE 20 MG TAB PO SCH (08:46)
[2018-10-28] MEDS: SUCRALFATE 1 GM TAB PO SCH ×2 (08:46→20:41)
[2018-10-28] MEDS: PROMETHAZINE 25 MG TAB PO PRN ×2 (08:46→17:38)
[2018-10-28] MEDS ORDERED: PROM25TA12 PO (13:12)
--- NOTE | 2018-10-28 13:19 | IPNPDOC ---
Text Note Date of Service The patient was seen on 10/28/18. NOTE S: patient refusing equipment monitor phototypesetting. She states nausea and vomiting (unwitnessed). She has had no syncopal episodes. She had 2 chest pain episodes with normal troponin and normal EKG/Tele during the night. Patient is angry because she was told she might have a holter monitor (external) instead of internal loop recorder. Advised her it was up to aeronautical inspector which form of monitoring was needed and patient states , "no its my decision". Patient states she is going to leave if she doesnt get an implanted loop recorder today or tomorrow and wants to be "knocked out" and demands IV phenergan and PICC line. O: Vitals as below General: NAD AAOx3 HRRR LCTA A/P: Chest pain with syncopal episode by history - There was concern for paroxysmal afib seen by EMT prior to arrival to ED. this has not reoccured. Patient is being discharged (non compliant with treatment plan as documented above) and will be set up for outpatient implantable recorder thru Dr Garibay office. VS,Nike, I+O VS, Kristie, I+O Vital Signs Date Time Temp Pulse Resp B/P (MAP) Pulse Ox O2 Delivery O2 Flow Rate FiO2 10/28/18 12:00 96.5 73 16 114/79 (91) 100 10/25/18 03:24 Room Air I&O- Last 24 Hours up to 6 AM 10/28/18 06:00 Intake Total 840 ml Output Total 800 ml Balance 40 ml ROMARIO BETANCUR DO Oct 28, 2018 13:19
--- NOTE | 2018-10-28 15:33 | IPN ---
DATE AND TIME OF SERVICE: 10/28/2018 at 2:[address] Taurus Garibay asked me to see this patient for the purpose implanting a implanting loop recorder at his request for recurrent unexplained syncope, which is generally infrequent. The patient reports recurrent episodes of loss of consciousness less often than once a month. She previously had a loop recorder many years ago, which was subsequently out after 6 months. Temperature 96.5, pulse 73 (regular), respiratory rate 16, blood pressure 114/79, oxygen saturation 100% on room air. Height 62 inches, weight 111.7 kg, body mass index (BMI) 45.0. Pleasant, morbidly obese woman who appears her chronological age, who is not in any respiratory or psychologic distress. Jugular venous pulsations at 3 cm. First and second heart sounds normal. Lung thomason clear with good air entry. Normal heart sounds. No S3 or S4 or murmurs. No peripheral edema. Electrocardiogram 10/27/2018 at 2139 hours shows sinus rhythm, low precordial voltages, poor R wave progression, otherwise within normal limits. Other past medical and surgical history of note includes paroxysmal atrial fibrillation, hyperlipidemia, diastolic heart failure, systemic hypertension, chronic obstructive pulmonary disease (COPD), morbid obesity, obstructive sleep apnea, fibromyalgia. ASSESSMENT AND PLAN: Recurrent unexplained syncope. The plan will be to evaluate further with an implantable loop recorder as requested by Dr. Taurus Garibay. Risks of implantation of loop recorder were explained to the patient including, but not all inclusive, infection, bleeding, adverse drug reaction. The patient was agreeable and signed the consent form. The plan is to proceed with implantation of implantable loop recorder some time tomorrow (10/29/2018). RITA
--- NOTE | 2018-10-28 18:34 | ECGEPIP ---
[facility] Test Date: 2018-10-27 Pat Name: SMITH VIVEROS Department: Room: [place] [address] Gender: Female Clinical Nurse Specialist: HUMBERTO : 1965 Requested By: NEFTALI Le Order Number: [id number] Reading MD: Cally Nix Measurements Intervals [place] Rate: 77 P: 21 ME: 150 QRS: -1 QRSD: 98 T: 21 QT: 373 QTc: 423 Interpretive Statements SINUS RHYTHM LOW QRS VOLTAGE IN PRECORDIAL LEADS NON-SPECIFIC STT ABNORMALITIES NO CHANGE COMPARED TO 10/24/18 Electronically Signed on 10-28-2018 18:34:16 EDT by Cally Nix
[2018-10-28] MEDS: METAXALONE 800 MG TABLET PO SCH (20:41)
[2018-10-28] MEDS: ACETAMINOPHEN TAB 650MG DOSE (2X325MG) PO PRN (20:42)
[2018-10-29] VITALS (8 sets, daily range): BP systolic 104–144; BP diastolic 61–77
[2018-10-29] MEDS: SLF 3 ML SYR IV SCH ×2 (05:36→17:02)
--- NOTE | 2018-10-29 08:08 | IPN ---
DATE: 10/29/2018 Mrs. Jones had a relatively good day yesterday. She did not have any arrhythmias. She did not have any near syncopal sensation, but she continues to be nauseated. She also reports exertional dyspnea, which has been chronic. Review of telemetry tracing revealed no new arrhythmias. VITAL SIGNS: Blood pressure 107/70, heart rate in 50s to 70s, sinus rhythm, afebrile. Saturation 98%, weight is 112 kg. She is alert and oriented and appropriate. She is lying completely flat in PCU bed. Her JVP is not high. Lungs are clear. Heart exam reveals regular rhythm without gallop or rub. Abdomen is obese, but soft. There is no peripheral edema. LABORATORY: She has normal CBC and normal basic metabolic panel. No labs were drawn this morning. ASSESSMENT/PLAN: Mrs. Jones is a 53-year-old lady who has recurrent syncopal events of undetermined etiology. She is Dr. Garibay's patient had already extensive evaluation on outpatient basis. Per his recommendation, she will undergo implantation of a loop recorder later this afternoon. After it is accomplished I believe she can be discharged home. Further management will be per Dr. Garibay.
[2018-10-29] MEDS: FAMOTIDINE 20 MG TAB PO SCH (08:36)
[2018-10-29] MEDS: PANTOPRAZOLE 40MG TAB (PROTONIX) PO SCH (08:37)
[2018-10-29] MEDS: METOPROLOL TART 25 MG TABLET PO SCH (08:37)
[2018-10-29] MEDS: SUCRALFATE 1 GM TAB PO SCH (08:37)
[2018-10-29] MEDS ORDERED: LORazepam 2 MG/ML VIAL (J2060) IV ONE (10:45)
[2018-10-29] MEDS: PROMETHAZINE 25 MG TAB PO PRN (12:35)
[2018-10-29] MEDS ORDERED: LIDOCAINE 1% SDV INJ 30 ML VIAL As Ordered ONE (12:41)
[2018-10-29] MEDS ORDERED: MIDAZOLAM INJ 2 MG/2 ML VIAL (J2250) As Ordered ONE (13:21)
[2018-10-29] MEDS ORDERED: PROPOFOL 200 MG/20 ML VIAL As Ordered ONE (13:21)
[2018-10-29] MEDS ORDERED: fentaNYL 100 MCG/2 ML INJECTION (J3010) As Ordered ONE (13:21)
[2018-10-29] MEDS ORDERED: ceFAZolin 2 GM/D5W 50 ML IV BAG (J0690 PER 500MG) As Ordered ONE (14:14)
[2018-10-29] MEDS ORDERED: ONDANSETRON 4MG/2ML VIAL (J2405) IV PRN (15:00)
[2018-10-29] MEDS ORDERED: LR 1,000 ML IV SCH (15:00)
[2018-10-29] MEDS ORDERED: PERCOCET 5MG/325MG TAB PO PRN (15:00)
[2018-10-29] MEDS ORDERED: PERCOCET 5MG/325MG TAB As Ordered ONE (15:05)
--- NOTE | 2018-10-29 15:23 | RO ---
DATE OF PROCEDURE: 10/29/2018 PREOPERATIVE DIAGNOSIS: Unexplained syncope. POSTOPERATIVE DIAGNOSIS: Unexplained syncope. PROCEDURE PERFORMED: Implantation of [employer]onic implantable loop recorder. SURGEON: Maurizio Santillan MD PATENTED HOGSHEAD ASSEMBLER: None. ANESTHESIA: Lidocaine 1% local (3 mL) and monitored anesthetic care. FINDINGS: Unexplained syncope. No specimens. Estimated blood loss less than 1 mL. No blood products replaced. No drains. No complications. PROCEDURE DESCRIPTION: Patient was prepped and draped over the sternum and left anterior chest. Lidocaine 1% was used for local anesthetic. An incision approximately 1 cm in length with a #15 blade about an inch lateral to the left parasternal border at the level of the uppermost portion of the left aerola. The insertion tool was used to place the implantable loop recorder in the subcutaneous fat parallel to the rib cage. The first position tried was in a caudal direction and the resulting R wave was less than 0.2 mV. The loop recorder was then taken out of the pocket and repositioned with the insertion tool going in a left lateral position and this was satisfactory with an initial R wave amplitude of 0.45 mV. A single #2-0 Vicryl stitch was used to help approximate the lower layer of the incision. Next, I used a #4-0 Biosyn suture to help approximate the skin until the surgical glue was dry. This was placed subcuticular with the free ends of the stitch protruding a centimeter from either end of the incision line. Once the skin was approximated, three layers of Dermabond was applied. The Biosyn suture was then pulled through the incision and removed entirely. Patient tolerated the procedure well without any immediate complications. The implantable loop recorder implanted was a [place] Reveal LINQ, model LNQ11 with serial #[id number].
--- NOTE | 2018-10-29 17:24 | DS.PDOC ---
Discharge Summary General Date of Admission Oct 24, 2018 at 19:38 Date of Discharge 10/29/18 Discharge Summary PROCEDURES PERFORMED DURING STAY: Loop recorder. ADMITTING DIAGNOSES: 1. Syncope DISCHARGE DIAGNOSES: 1. Syncope COMPLICATIONS/CHIEF COMPLAINT: Syncope. HISTORY OF PRESENT ILLNESS:53-year-old female with a history of frequent syncopal episodes. Yesterday the patient is c/o "not feeling good all day hathaway zy tired...", having a BEAULIEU, nausea, and 10 out of 10 mid chest pressure that has now resolved. This evening she was found unresponsive, by her sister, who reports it took about 10 minutes to wake her up. HOSPITAL COURSE: She was evaluated by cardiology. She has a long history of syncope and near syncope versus seizures/pseudoseizures, for which she has had both neurology and cardiology workup but have been negative. She, however, has a history of paroxysmal atrial fibrillation as well as hyperlipidemia, hypertension, diastolic heart failure, chronic obstructive pulmonary disease (COPD), morbid obesity and sleep apnea, arthritis/fibromyalgia rheumatica. She was recently admitted and treated at [facility] and underwent extensive cardiology workup. Her echocardiogram was reported to be normal with a left ventricular ejection fraction (LVEF) estimated at 60% and no regional wall motion abnormalities. There was no raoul- or tachyarrhythmia on telemetry. She also had a cardiac catheterization that revealed no ischemia/infarction. She was told upon discharge from the hospital that she needed a formula weigher and also extensive neurologic workup to be done at [facility]. Upon discharge from [facility], she also was told that she needs to go for re-evaluation of her obstructive sleep apnea because she might benefit from a continuous positive airway pressure (CPAP). She went home, then came to back to the hospital after one episode of syncope or near syncope. It was reported this time that her heart rate was about 150-160 beats per minute when emergency medical service (EMS) arrived on scene. She was brought to the emergency room (ER), and she was in normal sinus rhythm. Cardiology recommended placing recorder. We will recorder was placed. Patient had no further episodes of syncope during her hospitalization. She is medically stable to be discharged and follow-up, cardiology and neurology as an outpatient. DISCHARGE MEDICATIONS: Please see below. ALLERGIES: Please see below. PHYSICAL EXAMINATION ON DISCHARGE: General - NAD, sitting up in bed, well groomed Eyes - PERRLA, EOM intact Neck - No noticeable or palpable swelling, redness or rash around throat or on face Lymph Nodes - No lymphadenopathy Cardiovascular - RRR no m/r/g, no JVD, no carotid bruits Lungs - Clear to auscltation, no use of acessory muscles, no crackles or wheezes. Skin - No rashes, skin warm and dry, no erythematous areas Abdomen - Normal bowel sounds, abdomen soft and nontender Extremeties - No edema, cyanosis or clubbing Musculo Skeletal - 5/5 strength, normal range of motion, no swollen or erythematous joints. Neurological Alert and oriented x 3, CN 2-12 grossly intact LABORATORY DATA: Please see below. IMAGING: PROGNOSIS: ACTIVITY: As tolerated. DIET: DISCHARGE PLAN: DISPOSITION: . DISCHARGE INSTRUCTIONS: 1. Follow-up with PCP, cardiology and neurology ITEMS TO FOLLOWUP ON ON OUTPATIENT: 1. . DISCHARGE CONDITION: Stable. TIME SPENT ON DISCHARGE: Greater than 41 minutes. Vital Signs/I&Os Vital Signs Date Time Temp Pulse Resp B/P (MAP) Pulse Ox O2 Delivery O2 Flow Rate FiO2 10/29/18 16:30 96.8 73 18 122/72 (89) 100 10/25/18 03:24 Room Air I&O- Last 24 Hours up to 6 AM 10/29/18 06:00 Intake Total 800 ml Output Total 400 ml Balance 400 ml Discharge Medications Scheduled Apixaban (Eliquis) 5 Mg Tablet, 5 MG PO BID, (Reported) Famotidine (Famotidine) 20 Mg Tablet, 20 MG PO DAILY, (Reported) Metaxalone (Metaxalone) 800 Mg Tablet, 800 MG PO QHS, (Reported) Metoprolol Tartrate (Metoprolol Tartrate) 25 Mg Tablet, 25 MG PO BID, (Reported) Pantoprazole Sodium (Pantoprazole Sodium) 40 Mg Tablet.dr, 40 MG PO BID, (Reported) Sucralfate (Sucralfate) 1 Gm Tablet, 1 GM PO BID, (Reported) Scheduled PRN Promethazine HCl (Promethazine HCl) 25 Mg Tablet, 25 MG PO Q6HP PRN for nausea Allergies Coded Allergies: pregabalin (Verified Allergy, Severe, Angioedema, 10/24/18) clindamycin (Verified Allergy, Intermediate, vomiting swelling, 10/24/18) diclofenac (Verified Allergy, Intermediate, swelling all over body, 10/24/18) sorbitan esters (Verified Allergy, Unknown, 10/24/18) from zipsoragitation amoxicillin (Verified Adverse Reaction, Intermediate, VOMITING, 10/25/18) bupropion (Verified Adverse Reaction, Intermediate, increased tremors, 10/24/18) Wellbutin clavulanic acid (Verified Adverse Reaction, Intermediate, VOMITING, 10/25/18) cyclobenzaprine (Verified Adverse Reaction, Intermediate, agitation, ) doxycycline (Verified Adverse Reaction, Mild, vomiting, 10/24/18) sulfamethoxazole (Verified Adverse Reaction, Mild, vomiting, 10/24/18) W/trimethopri from bactrim trimethoprim (Verified Adverse Reaction, Mild, VOMITING, 10/24/18) TEVIN TEMPLE MD Oct 29, 2018 17:24
--- NOTE | 2018-10-29 18:34 | REP ---
HISTORY: Chest pain. COMPARISON: Portable examination of 10/24/2018. FINDINGS: The superior mediastinal structures are midline. The cardiac silhouette is unremarkable in size, shape and position. The diaphragmatic surfaces of the lungs are regular and the costophrenic angles are clear. The pulmonary thomason are clear. The imaged osseous structures are intact. IMPRESSION: There is no acute cardiopulmonary disease. Electronically Signed by Jt De Leon DO 10/30/2018 12:36 P
== END 2018-10-29 18:52 | disposition home or self-care (01) ==
LOC: M ED 19:37 → M ED INP 19:38 → M PCU 10-25 04:34
PROVIDERS: ADMIT Internal Medicine; ATTEND Family Medicine
DX: R55 Syncope and collapse (principal); R11.0 Nausea; R07.9 Chest pain, unspecified; I48.0 Paroxysmal atrial fibrillation; I25.2 Old myocardial infarction; E78.5 Hyperlipidemia, unspecified; I50.30 Unspecified diastolic (congestive) heart failure; I11.0 Hypertensive heart disease with heart failure; J44.9 Chronic obstructive pulmonary disease, unspecified; G47.30 Sleep apnea, unspecified; M19.90 Unspecified osteoarthritis, unspecified site; F60.3 Borderline personality disorder; F41.9 Anxiety disorder, unspecified; R53.83 Other fatigue; E66.9 Obesity, unspecified; Z68.42 Body mass index [BMI] 45.0-49.9, adult; K21.9 Gastro-esophageal reflux disease without esophagitis; Z86.14 Personal history of Methicillin resistant Staphylococcus aureus infection; M54.5 Low back pain; F44.5 Conversion disorder with seizures or convulsions; F31.9 Bipolar disorder, unspecified; M79.7 Fibromyalgia; G43.909 Migraine, unspecified, not intractable, without status migrainosus; Z95.5 Presence of coronary angioplasty implant and graft; F17.200 Nicotine dependence, unspecified, uncomplicated; Z79.899 Other long term (current) drug therapy; Z79.01 Long term (current) use of anticoagulants; Z88.1 Allergy status to other antibiotic agents; Z88.8 Allergy status to other drugs, medicaments and biological substances; Z88.2 Allergy status to sulfonamides
CPT/HCPCS: 33285; 36415; 70450; 71045; 71046; 80048; 82550; 82553; 83735; 83880; 84443; 85025; 85027; 93005; 93041; 93306; 94760; 96361; 96374; 96375; 96376; 99285; C1764; J0690; J1885; J2060; J2250; J2405; J3010

== ENCOUNTER 2018-10-31 13:47 | Emergency (ER) | payer OTHER ==
[~2018-10-31] VITALS: Ht 157.5 cm; Wt 110.0 kg
[~2018-10-31 13:47] MED LIST changes: -ALBU17IN2 INH; +META1TAB22 PO; +METO1TAB87 PO; +METO25TA4 PO; +PROV108A INH
[2018-10-31] MEDS ORDERED: DERMABOND TOPICAL SKIN ADHESIVE TOP ONE (15:00)
--- NOTE | 2018-10-31 15:22 | REP ---
PA and lateral chest: Comparisons are the chest CT dated 08/23/2018 and the PA and lateral chest dated 10/29/2018. There is a faintly visible nodular density inferiorly in the left lung. On the comparison CT. This is a calcified granuloma. There are no acute infiltrates or pleural effusions. There are no other masses or nodules. The lung thomason otherwise clear. Cardiac size is normal. The gerardo, mediastinum, skeletal structures are unremarkable. Impression: There are no acute cardiopulmonary findings. There is a calcified granuloma inferiorly in the left lung as described. A loop recorder is incidentally noted. Electronically Signed by Jose Castillo MD 10/31/2018 03:13 P
[2018-10-31 16:00] LABS: BASO % 0.2 % (0.0-1.0); EOS # 0.1 10^3/uL (0.0-0.50); EOS % 1.4 % (0.0-3.0); HEMATOCRIT 41.3 % (36.0-47.0); HEMOGLOBIN 13.4 g/dl (12.0-15.5); LYMPH # 1.6 10^3/uL (1.5-4.5); LYMPH % 37.6 % (24.0-44.0); MEAN CORPUSCULAR HEMOGLOBIN 31.5 pg (27.0-33.0); MEAN CORPUSCULAR HGB CONC 32.4 g/dl (32.0-36.5); MEAN CORPUSCULAR VOLUME 96.9 fl (80.0-96.0); MONO # 0.3 10^3/uL (0.0-0.8); MONO % 7.1 % (0.0-5.0); NEUTROPHILS # 2.3 10^3/uL (1.8-7.7); RED BLOOD COUNT 4.26 10^6/uL (4.00-5.40); WHITE BLOOD COUNT 4.4 10^3/uL (4.0-10.0)
[2018-10-31 16:11] LABS: BLOOD UREA NITROGEN 10 MG/DL (7-18); CALCIUM LEVEL 8.4 MG/DL (8.5-10.1); CARBON DIOXIDE LEVEL 26 MEQ/L (21-32); CHLORIDE LEVEL 110 MEQ/L (98-107); CK-MB VALUE MASS < 1.0 NG/ML (<3.6); CPK CREATINE PHOSPHOKINASE 78 U/L (26-192); GLOMERULAR FILTRATION RATE > 60.0 (>51); GLUCOSE, FASTING 92 MG/DL (70-100); MB/CK RELATIVE INDEX 1.28 (< OR =4); POTASSIUM SERUM 3.9 MEQ/L (3.5-5.1); SODIUM LEVEL 144 MEQ/L (136-145); TROPONIN I < 0.02 NG/ML (< 0.10)
[2018-10-31 16:32] VITALS: BP 130/85
--- NOTE | 2018-11-01 05:18 | ECGEPIP ---
[facility] - ED Test Date: 2018-10-31 Pat Name: SMITH VIVEROS Department: Room: - Gender: Female Commissions Coordinator: DENY : 1965 Requested By: NEENA Ramirez Order Number: [id number] Reading MD: Barrie Mobley Measurements Intervals [place] Rate: 85 P: 13 NV: 160 QRS: -1 QRSD: 83 T: 20 QT: 360 QTc: 430 Interpretive Statements SINUS RHYTHM LOW QRS VOLTAGE IN PRECORDIAL LEADS NSTTW ABNORMALITIES SIMILAR TO 10/27/18 Electronically Signed on 11-01-2018 5:17:58 EDT by Barrie Mobley
== END 2018-10-31 16:36 | disposition home or self-care (01) ==
LOC: EDBD 13:47 → M ED 13:47
DX: T81.30XA Disruption of wound, unspecified, initial encounter (principal); X58.XXXA Exposure to other specified factors, initial encounter; Y92.89 Other specified places as the place of occurrence of the external cause; I48.91 Unspecified atrial fibrillation; R56.9 Unspecified convulsions; M79.7 Fibromyalgia; E66.9 Obesity, unspecified; Z88.0 Allergy status to penicillin; Z88.1 Allergy status to other antibiotic agents; Z88.2 Allergy status to sulfonamides; Z88.8 Allergy status to other drugs, medicaments and biological substances; Z87.891 Personal history of nicotine dependence

== ENCOUNTER 2018-11-02 09:10 | Emergency (ER) | payer OTHER ==
[~2018-11-02] VITALS: Ht 157.5 cm; Wt 109.1 kg
[2018-11-02] MEDS ORDERED: ONDANSETRON 4MG/2ML VIAL (J2405) IV ONE (09:45)
[2018-11-02] MEDS ORDERED: NS 1,000 ML IV ONE ×2 (09:45→11:30)
[2018-11-02 10:42] LABS: BASO % 0.4 % (0.0-1.0); EOS # 0.1 10^3/uL (0.0-0.50); EOS % 1.1 % (0.0-3.0); HEMATOCRIT 39.8 % (36.0-47.0); HEMOGLOBIN 13.4 g/dl (12.0-15.5); LYMPH # 1.3 10^3/uL (1.5-4.5); LYMPH % 23.8 % (24.0-44.0); MEAN CORPUSCULAR HGB CONC 33.7 g/dl (32.0-36.5); MEAN CORPUSCULAR VOLUME 92.1 fl (80.0-96.0); MONO # 0.4 10^3/uL (0.0-0.8); MONO % 6.6 % (0.0-5.0); NEUTROPHILS # 3.6 10^3/uL (1.8-7.7); NEUTROPHILS % 67.5 % (36.0-66.0); PLATELET COUNT, AUTOMATED 149 10^3/uL (150-450); RED BLOOD COUNT 4.32 10^6/uL (4.00-5.40); WHITE BLOOD COUNT 5.3 10^3/uL (4.0-10.0)
[2018-11-02 11:06] LABS: ALBUMIN 2.8 GM/DL (3.2-5.2); ALT/SGPT 32 U/L (12-78); AMYLASE 43 U/L (25-115); BILIRUBIN,DIRECT < 0.1 MG/DL (0.0-0.2); BILIRUBIN,TOTAL 0.3 MG/DL (0.2-1.0); BLOOD UREA NITROGEN 11 MG/DL (7-18); CALCIUM LEVEL 8.7 MG/DL (8.5-10.1); CARBON DIOXIDE LEVEL 28 MEQ/L (21-32); CHLORIDE LEVEL 111 MEQ/L (98-107); CREATININE FOR GFR 0.98 MG/DL (0.55-1.30); GLOMERULAR FILTRATION RATE > 60.0 (>51); GLUCOSE, FASTING 91 MG/DL (70-100); LIPASE 127 U/L (73-393); POTASSIUM SERUM 3.8 MEQ/L (3.5-5.1); SODIUM LEVEL 143 MEQ/L (136-145); TOTAL PROTEIN 6.4 GM/DL (6.4-8.2)
[2018-11-02] MEDS ORDERED: ACETAMINOPHEN 500 MG TAB PO ONE (11:30)
[2018-11-02] MEDS ORDERED: METOCLOPRAMIDE INJ 10MG/2ML VIAL (J2765) IV ONE (12:00)
--- NOTE | 2018-11-02 14:10 | REP ---
Ultrasonography of the soft tissues in the left upper extremity antecubital fossa and forearm: Recent PICC line placement in the left antecubital fossa was unsuccessful. The the patient now complains of pain in the left antecubital fossa: Ultrasonography of the left antecubital fossa and left forearm is performed. There is no focal fluid collection or mass in the antecubital fossa. There is nonocclusive thrombus in the cephalic vein from the elbow to the wrist. Impression: There is no focal fluid collection to suggest abscess or hematoma. However, there is nonocclusive intraluminal thrombus in the cephalic vein from the elbow to the wrist. Electronically Signed by Jose Castillo MD 11/02/2018 02:01 P
[2018-11-02 16:44] VITALS: BP 116/64
--- NOTE | 2018-11-04 07:53 | ED PDOC ---
Post-Departure Follow-Up dr lane and corey schneider faxed formal report of extrem us left amr for fu Brittney Connelly MD Nov 04, 2018 07:53
== END 2018-11-02 16:46 | disposition home or self-care (01) ==
LOC: EDBD 09:10 → M ED 09:10 → EDSEX 09:10 → M ED 16:46
DX: I82.612 Acute embolism and thrombosis of superficial veins of left upper extremity (principal); R11.2 Nausea with vomiting, unspecified; I11.0 Hypertensive heart disease with heart failure; I50.9 Heart failure, unspecified; I25.2 Old myocardial infarction; E78.5 Hyperlipidemia, unspecified; J44.9 Chronic obstructive pulmonary disease, unspecified; G47.30 Sleep apnea, unspecified; M79.7 Fibromyalgia; K21.9 Gastro-esophageal reflux disease without esophagitis; Z87.19 Personal history of other diseases of the digestive system; Z87.891 Personal history of nicotine dependence; Z79.899 Other long term (current) drug therapy; Z79.01 Long term (current) use of anticoagulants; Z88.0 Allergy status to penicillin; Z88.1 Allergy status to other antibiotic agents; Z88.8 Allergy status to other drugs, medicaments and biological substances; Z88.2 Allergy status to sulfonamides
CPT/HCPCS: 36415; 76882; 80048; 80076; 82150; 83690; 85025; 96361; 96374; 96375; 99284; J2405; J2765

== ENCOUNTER 2018-11-16 17:28 | Emergency (ER) | payer OTHER ==
[~2018-11-16] VITALS: Ht 157.5 cm; Wt 113.0 kg
--- NOTE | 2018-11-16 18:54 | REP ---
Clinical: Trauma/fall with decreased range of motion . Technique: Internal rotation, external rotation, and Y view left shoulder . Findings: Mild age-related changes. No acute fracture or dislocation. The acromioclavicular and glenohumeral joints are intact. No periarticular calcifications or calcified loose bodies appreciated. Sub acromial space is normal. Surrounding soft tissues are unremarkable. Impression: No acute fracture or dislocation. Electronically Signed by Fletcher Serna MD 11/16/2018 06:44 P
[2018-11-16 20:07] VITALS: BP 124/76
== END 2018-11-16 20:11 | disposition home or self-care (01) ==
LOC: M ED 17:28
DX: S43.402A Unspecified sprain of left shoulder joint, initial encounter (principal); W01.198A Fall on same level from slipping, tripping and stumbling with subsequent striking against other object, initial encounter; Y92.9 Unspecified place or not applicable; Z79.899 Other long term (current) drug therapy

== ENCOUNTER → 2018-11-18 | Outpatient (CLI) | payer OTHER ==
--- NOTE | 2018-11-20 02:06 | ECWPNPC ---
PATIENT NAME: SMITH VIVEROS : 1965 GENDER: FEMALE VISIT DATE: 11/18/2018 DISCHARGE DATE: 11/18/18935 VISIT LOCKED DATE TIME: PHYSICIAN: ANISA LOCO RESOURCE: ANISA LOCO REASON FOR APPOINTMENT 1. POST TPI HISTORY OF PRESENT ILLNESS HISTORY OF PRESENT ILLNESS: PAIN THE PATIENT DESCRIBES THE PAIN... 53-YEAR-OLD FEMALE IN FOR POST TPI FOLLOW-UP. PATIENT STATES PROCEDURE WORKED WELL FOR ABOUT 4 WEEKS HER PAIN PRIOR TO THE PROCEDURE WAS RATED AT A 10 OUT OF 10 AND POSTPROCEDURE WAS RATED 4 OUT OF 10. SHE CURRENTLY RATES HER PAIN AT A 10 OUT OF 10 AND DESCRIBES IT SORE, SHARP, STABBING, AND TENDER. WOULD LIKE TO DISCUSS DIFFERENT MEDICATION FOR PAIN. FALL RISK SCREENING: SCREENING :NO FALLS REPORTED IN THE LAST YEAR CURRENT MEDICATIONS TAKING NITROGLYCERIN 0.4 MG TABLET SUBLINGUAL DIRECTED SUBLINGUAL EVERY 5 MIN: MDD 3 TABLETS TAKING PAROXETINE HCL 30 MG TABLET 1 TABLET IN THE MORNING ORALLY ONCE A DAY TAKING SUCRALFATE 1 GM TABLET 1 TABLET ORALLY TWICE A DAY TAKING ELIQUIS 5 MG TABLET 1 TAB(S) ORALLY TWICE DAILY TAKING PROTONIX 40 MG TABLET DELAYED RELEASE 1 TABLET ORALLY BID TAKING METOPROLOL SUCCINATE 25 MG CAPSULE ER 24 HOUR SPRINKLE 1 CAPSULE ORALLY ONCE A DAY TAKING METAXALONE 800 MG TABLET 1 TABLET ORALLY FOR SPASMS AND PAIN BEFORE BEDTIME DISCONTINUED LISINOPRIL 10 MG TABLET 1 TAB ORALLY DAILY MEDICATION LIST REVIEWED AND RECONCILED WITH THE PATIENT PAST MEDICAL HISTORY FIBROMYALGIA DX 4 YEARS AGO, BEING FOLLOWED AT PAIN CLINIC MIGRAINE HEADACHE STRESS INCONTINENCE DEPRESSION HYPERLIPIDEMIA VITAMIN D DEFICIENCY AFIB GERD INTERMITTENT A FIB STRESS INCONTINENCE, FEMALE CHRONIC PAIN SYNDROME UNSPECIFIED VITAMIN D DEFICIENCY MIGRAINE, UNSPECIFIED WITHOUT MENTION OF INTRACTABLE MIGRAINE WITHOUT MENTION OF STATUS MIGRAINOSUS ALLERGIES ZIPSOR: ALLERGY FLEXERIL: AGGITATION - ALLERGY LYRICA: ANAPHYLAXIS - ALLERGY DICLOFENAC POTASSIUM: AGGITATION (ZIPSOR) - ALLERGY BACTRIM: NAUSEA/VOMITING - ALLERGY CYMBALTA: NAUSEA/VOMITING - SIDE EFFECTS AMITRIPTYLINE: AGGITATION - SIDE EFFECTS GABAPENTIN: HALLUCINATIONS - SIDE EFFECTS TIZANIDINE HCL: HIVES - ALLERGY KETOROLAC TROMETHAMINE: STOMACH PAIN - ALLERGY SURGICAL HISTORY TUBAL LIGATION 1988 DISTAL 4TH FINGER REPAIR SECONDARY TO TRAUMATIC INJURY BENIGN TUMOR REMOVAL RIGHT LEG DENTAL SURGERIES CHOLECYSTECTOMY 05/2014 HYSTERECTOMY STILL HAS 1 OVARY BUT NOT SURE WHICH ONE 2012 ABSCESS R GROIN 2015 LOOP RECORDER 10/2018 FAMILY HISTORY FATHER: , PNEUMONIA, CHF, NEUROPATHY, BLOOD CLOT, DIAGNOSED WITH DIABETES, UNSPECIFIED HEART DISEASE, UNSPECIFIED CEREBRAL ARTERY OCCLUSION WITH CEREBRAL INFARCTION MOTHER: , CANCER, DIABETES, HYPERTENSION, UNSPECIFIED HEART DISEASE, UNSPECIFIED CEREBRAL ARTERY OCCLUSION WITH CEREBRAL INFARCTION, OTHER MALIGNANT NEOPLASM OF UNSPECIFIED SITE SIBLINGS: ALIVE, LUPUS, DIABETES SON(S): ALIVE DAUGHTER(S): ALIVE 2 BROTHER(S) , 5 SISTER(S) . 1 SON(S) , 1 DAUGHTER(S) - HEALTHY. SOCIAL HISTORY GENERAL: TOBACCO USE ARE YOU A:FORMER SMOKER HOW LONG HAS IT BEEN SINCE YOU LAST SMOKED?5-10 YEARS VAPORNO E-CIGARETTEYES HIV / HEP-C SCREENING HIV TEST OFFERED TO PATIENT:YES DATE OFFERED:10/26/2017 TEST ACCEPTED:NO HEP-C TEST OFFERED TO PATIENT:NO REASON:PATIENT DECLINED BROCHURE PROVIDED TO PATIENTNO OTHERS AT HOME: [id number], BROTHER, NEPHEW AND BOYFRIEND. DIET: REGULAR. LANGUAGE SERBIAN. DOMESTIC VIOLENCE DO YOU FEEL SAFE IN YOUR ENVIRONMENT?YES NEW PATIENT PAIN DIARY FROM 0-10, WHAT LEVEL IS YOUR PAIN TODAY?10 BMI CARE GOAL FOLLOW-UP ABOVE NORMAL BMI FOLLOW-UPLIFESTYLE EDUCATION REGARDING DIET RECREATIONAL DRUG USE DRUG USE?NO EXERCISE: NO REGULAR EXERCISE. LEARNING BARRIERS / SPECIAL NEEDS CHANGE FROM LAST VISIT?NO BARRIERS TO LEARNING?NO HEARING IMPAIRED?NO VISION IMPAIRED?YES COGNITIVELY IMPAIRED?NO :CORRECTIVE LENSES READINESS TO LEARN?YES LEARNING PREFERENCES?NO LEARNING CAPABILITIES PRESENT?YES EMOTIONAL BARRIERS?YES SPECIAL DEVICES?NO PAIN CLINIC PFS, CLERGY, PUBLIC HEALTH REFERRALS PFS REFERRAL NEEDED?NO CLERGY REFERRAL NEEDED?NO PUBLIC HEALTH REFERRAL NEEDED?NO WAS THE PROVIDER NOTIFIED OF ANY PERTINENT INFO?NO N/A HAS THE PATIENT BEEN EDUCATED REGARDING HIS/HER PLAN OF CARE?YES HAS THE PATIENT BEEN EDUCATED REGARDING PAIN, THE RISK FOR PAIN, THE IMPORTANCE OF EFFECTIVE PAIN MANAGEMENT, AND THE PAIN ASSESSMENT PROCESS?YES LATEX QUESTIONNAIRE LATEX ALLERGY : HAVE YOU EVER DEVELOPED ANY TYPE OF REACTION AFTER HANDLING LATEX PRODUCTS SUCH RUBBER GLOVES, CONDOMS, DIAPHRAGMS, BALLOONS, SOCKS, OR UNDERWEAR?NO LATEX ALLERGY : HAVE YOU EVER DEVELOPED ANY TYPE OF REACTION DURING OR AFTER DENTAL APPOINTMENT, VAGINAL/RECTAL EXAMINATION, SURGICAL PROCEDURE, OR ANY OTHER EXPOSURE?NO DATE ASKED : 10/02/2018 LATEX RISK : HAVE YOU EVER HAD ANY DIFFICULTY BREATHING OR HIVES AFTER EATING OR HANDLING ANY FRUITS, OR VEGETABLES; SUCH KIWI, BANANAS, STONE FRUITS, OR CHESTNUTSNO LATEX RISK : DO YOU HAVE A PREVIOUS PERSONAL HISTORY OF MORE THAN NINE SURGERIES, SPINA BIFIDA, OR REPEATED CATHERIZATIONS? YES - PLEASE INDICATE : > 9 SURGERIES LATEX RISK : ARE YOU FREQUENTLY EXPOSED TO LATEX PRODUCTS IN YOUR OCCUPATION?NO CAFFEINE CAFFEINE USE?YES ADVANCE DIRECTIVE ADVANCE DIRECTIVE DISCUSSED WITH PATIENT:YES PT HAS NO ADVANCED DIRECTIVES, DECLINES HCP INFORMATION AND ASSISTANCE WITH FORM AT THIS TIME. [place]TO NO QUAKER BELIEFS THAT WOULD IMPACT HEALTH CARE. MARITAL STATUS: .. ALCOHOL SCREENING DID YOU HAVE A DRINK CONTAINING ALCOHOL IN THE PAST YEAR?NO POINTS0 INTERPRETATIONNEGATIVE OCCUPATION: UNEMPLOYED. SEXUAL HX HAD SEX IN THE LAST 12 MONTHS (VAGINAL, ORAL, OR ANAL)?NO HAVE YOU EVER HAD AN STD?NO 08/15/17 1025 REVIEWED WITH PT. AD03/15/2018 1508 REVIEWED WITH PT LAS03/27/18 1116 REVIEWED WITH PT BVREVIEWED WITH PATIENT 06/24/18 1028 JSREVIEWED WITH PATIENT 07/24/18 1257 JSREVIEWED WITH PT 09/30/18 1042 BV. HOSPITALIZATION/MAJOR DIAGNOSTIC PROCEDURE ABOVE SURGERIES MRSA RIGHT GROIN 2015, C DIFF 2014 CHEST PAIN 10/20/2016 [facility]- IMHU 09/2017 DIVERTICULITIS AND /HYPOTENSION 06/2018 SYNCOPE 09/2018 A-FIB AND LOOP RECORDER 10/2018 REVIEW OF SYSTEMS REVIEWED BY: PROVIDER: JAJA LOCO DIRECTOR OF PRIMARY CARE-C . CONSTITUTIONAL: ANY CHANGE IN YOUR MEDICAL CONDITION? NO . CHILLS NO . FEVER NO . INFECTION: DO YOU HAVE NEW INFECTIONS? NO . DO YOU HAVE HISTORY OF MRSA? YES, RIGHT LEG AND GROIN HX OF . MUSCULOSKELETAL: ANY NEW PATTERNS OF PAIN OR NUMBNESS? YES, LEFT ARM PIAN SHOOTING DOWN TO FINGERS . GASTROENTEROLOGY: ANY NEW CHANGE IN BOWEL CONTROL? NO . GENITOURINARY: ANY NEW CHANGE IN BLADDER CONTROL? NO . IS THERE A CHANCE YOU COULD BE ? NO . HEMATOLOGY/LYMPH: DO YOU TAKE ANY BLOOD THINNERS? (FOR EXAMPLE- COUMADIN, PLAVIX, AGGRENOX, PLATEL, PRADAXA, OR XARELTO) YES, ELIQUIS . WHEN WAS YOUR LAST DOSE? DATE: TIME: . NEUROLOGY: HAVE YOU FALLEN IN THE PAST 12 MONTHS? YES, FELL 2 WEEKS AGO FROM LOSS OF BALANCE, PT SPRAINED LEFT SHOULDER, WENT TO ER TX'D W SLING . ANY NEW EXTREMITY NUMBNESS OR WEAKNESS? YES, LEFT ARM . CARDIOLOGY: DO YOU HAVE A PACEMAKER OR DEFIBRILLATOR? YES, LOOP RECORDER . RESPIRATORY: HAVE YOU BEEN SICK IN THE PAST WEEK? NO . FEVER NO . FLU LIKE SYMPTOMS? NO . COUGH NO . INTEGUMENTARY: DO YOU HAVE ANY RASHES OR OPEN SORES? NO . ALLERGIC/IMMUNO: ARE YOU ALLERGIC TO IV DYE? NO . ANY NEW ALLERGIES? NO . PSYCHIATRIC: DO YOU HAVE THOUGHTS OF HURTING YOURSELF OR SOMEONE ELSE? NO . ARE YOU ABUSED, NEGLECTED, OR IN AN UNSAFE ENVIRONMENT? NO . ENDOCRINOLOGY: ARE YOU DIABETIC? NO . OTHER: DO YOU NEED ANY PRESCRIPTIONS? NO . IF YES, PLEASE LIST: ____ . ANY NEW PROBLEMS WITH YOUR MEDICATIONS? NO . WHEN DID YOU LAST EAT? ____ . WHEN DID YOU LAST DRINK? ____ . WHAT DID YOU LAST DRINK? ____ . NAME OF PERSON DRIVING YOU HOME? ____ . DO YOU HAVE ANY OTHER QUESTIONS OR CONCERNS YES, I REALLY NEED SOMETHING FOR PAIN . VITAL SIGNS WT 247.0 LBS, HT 61 IN, BMI 46.67 INDEX, BP 131/87 MM HG, HR 107 /MIN, RR 18 /MIN, TEMP 97.1 F, OXYGEN SAT % 99%, NA INITIALS AW 0857, REVIEWED BY: EM. EXAMINATION GENERAL EXAMINATION: GENERALNO ACUTE DISTRESS, WELL NOURISHED AND HYDRATED. PSYCHAPPROPRIATE MOOD AND AFFECT . LUNGS:CLEAR TO AUSCULTATION BILATERALLY, NO WHEEZES, RHONCHI, RALES. HEART:NO MURMURS, REGULAR RATE AND RHYTHM. BACK:POINT TENDER OVER LOW BACK, SURROUNDING SKIN SHOWS NO ERYTHEMA, ECCHYMOSIS, INCREASED WARMTH, AND/OR SKIN ERUPTIONS NOTED. . ASSESSMENTS MYALGIA, OTHER SITE - M79.18 (PRIMARY) TREATMENT MYALGIA, OTHER SITE START ROBAXIN TABLET, 500 MG, 1.5 TABLETS, ORALLY, EVERY 4 HRS, 30 DAY(S), 270 NOTES: TPI OF THE LOWER BACK. CLINICAL NOTES: 53-YEAR-OLD FEMALE IN FOR POST TPI FOLLOW-UP. GIVEN PRESENTING SYMPTOMS AND RESULTS PHYSICAL EXAMINATION RECOMMENDED REPEAT TPI WITH POST PROCEDURAL FOLLOW-UP. FURTHER RECOMMENDED STOPPING SKELAXIN AND STARTING ROBAXIN. PATIENT HAS EXPRESSED UNDERSTANDING OF AND WAS IN AGREEMENT WITH TREATMENT PLAN. GIVEN TIME TO ASK QUESTIONS AND EXPRESS CONCERNS. OTHERS STOP METAXALONE TABLET, 800 MG, 1 TABLET, ORALLY FOR SPASMS AND PAIN, BEFORE BEDTIME PREVENTIVE MEDICINE PAIN CLINIC TEACHING: MEDICATIONS ROBAXIN DRUG INFORMATION PRINTED AND REVIEWED WITH PATIENT 11/18/18 NLJ. PROCEDURE TEACHING TRIGGER POINT INJECTION INFORMATION PRINTED AND REVIEWED WITH PATIENT 11/18/18 NLJ. PROCEDURE CODES FA211 ESTABILISHED PATIENT [facility] CHARGE DISPOSITION & COMMUNICATION FOLLOW UP POSTPROCEDURE (REASON: TPI LOWER BACK) ELECTRONICALLY SIGNED BY TRA ACOSTA ON 11/19/2018 AT 09:36 AM EDT DISCLAIMER : THIS IS A VISIT SUMMARY EXTRACTED FROM THE [employer] CHART. IT IS NOT A COPY OF THE [employer] PROGRESS NOTE. RITA
== END ==
LOC: M PAIN 08:45
PROVIDERS: ATTEND Family Medicine
DX: M79.18 Myalgia, other site (principal); G43.909 Migraine, unspecified, not intractable, without status migrainosus; Z86.59 Personal history of other mental and behavioral disorders; E78.5 Hyperlipidemia, unspecified; K21.9 Gastro-esophageal reflux disease without esophagitis; Z87.891 Personal history of nicotine dependence; Z88.1 Allergy status to other antibiotic agents; Z88.8 Allergy status to other drugs, medicaments and biological substances; Z79.01 Long term (current) use of anticoagulants; E66.01 Morbid (severe) obesity due to excess calories; Z68.42 Body mass index [BMI] 45.0-49.9, adult; Z79.899 Other long term (current) drug therapy

== ENCOUNTER 2018-11-19 14:14 | Emergency (ER) | payer OTHER ==
[~2018-11-19] VITALS: Ht 157.5 cm; Wt 112.2 kg
[2018-11-19 15:17] LABS: BASO % 0.3 % (0.0-1.0); EOS # 0.1 10^3/uL (0.0-0.5); EOS % 0.8 % (0.0-3.0); HEMATOCRIT 41.2 % (36.0-47.0); HEMOGLOBIN 13.7 g/dl (12.0-15.5); LYMPH # 1.8 10^3/uL (1.5-5.0); LYMPH % 30.2 % (24.0-44.0); MEAN CORPUSCULAR HEMOGLOBIN 30.6 pg (27.0-33.0); MEAN CORPUSCULAR HGB CONC 33.3 g/dl (32.0-36.5); MEAN CORPUSCULAR VOLUME 92.2 fl (80.0-96.0); MONO # 0.5 10^3/uL (0.0-0.8); MONO % 8.1 % (0.0-5.0); NEUTROPHILS # 3.6 10^3/uL (1.5-8.5); NEUTROPHILS % 60.3 % (36.0-66.0); PLATELET COUNT, AUTOMATED 180 10^3/uL (150-450); RED BLOOD COUNT 4.47 10^6/uL (4.00-5.40); WHITE BLOOD COUNT 5.9 10^3/uL (4.0-10.0)
[2018-11-19 16:16] LABS: BLOOD UREA NITROGEN 11 MG/DL (7-18); CALCIUM LEVEL 8.9 MG/DL (8.5-10.1); CARBON DIOXIDE LEVEL 29 MEQ/L (21-32); CHLORIDE LEVEL 107 MEQ/L (98-107); CK-MB VALUE MASS < 1.0 NG/ML (<3.6); CPK CREATINE PHOSPHOKINASE 125 U/L (26-192); CREATININE FOR GFR 0.83 MG/DL (0.55-1.30); GLOMERULAR FILTRATION RATE > 60.0 (>51); GLUCOSE, FASTING 112 MG/DL (70-100); NT-PRO BNP 24 PG/ML (<125); SODIUM LEVEL 141 MEQ/L (136-145); TROPONIN I < 0.02 NG/ML (< 0.10)
[2018-11-19 16:28] VITALS: BP 136/80
--- NOTE | 2018-11-19 16:46 | REP ---
Sitting portable chest x-ray: Single view: History: Chest pain. Comparison chest x-ray: October 31, 2018 and December 24, 2015. Findings: EKG monitoring electrodes overlie the chest. Lungs are well inflated and free of infiltrate. There is a stable benign granulomatous nodule in the left base unchanged from December 24, 2015. Lung thomason are otherwise clear. Pleural angles are sharp. Heart size is normal. Pulmonary vasculature is not increased. No bony abnormalities seen. Impression: Old granulomatous nodule left base. No acute disease. Electronically Signed by Dominic Chao MD 11/19/2018 04:58 P
--- NOTE | 2018-11-19 19:30 | ECGEPIP ---
[facility] - ED Test Date: 2018-11-19 Pat Name: SMITH VIVEROS Department: Room: - Gender: Female Motor Analyst: : 1965 Requested By: Mouna Smith Order Number: [id number] Reading MD: Barrie Mobley Measurements Intervals [place] Rate: 103 P: 1 MD: 151 QRS: -1 QRSD: 89 T: 29 QT: 318 QTc: 416 Interpretive Statements SINUS TACHYCARDIA LOW QRS VOLTAGE IN PRECORDIAL LEADS NSTTW ABNORMALITIES SIMILAR TO 10/31/18 Electronically Signed on 11-19-2018 19:29:44 EDT by Barrie Mobley
== END 2018-11-19 16:55 | disposition home or self-care (01) ==
LOC: M ED 14:14
DX: R07.89 Other chest pain (principal); R00.0 Tachycardia, unspecified; I11.9 Hypertensive heart disease without heart failure; E11.9 Type 2 diabetes mellitus without complications; K21.9 Gastro-esophageal reflux disease without esophagitis; Z87.891 Personal history of nicotine dependence; Z88.0 Allergy status to penicillin; Z88.8 Allergy status to other drugs, medicaments and biological substances; Z88.1 Allergy status to other antibiotic agents; Z88.2 Allergy status to sulfonamides; Z79.899 Other long term (current) drug therapy; Z79.01 Long term (current) use of anticoagulants

== ENCOUNTER → 2018-11-28 | Outpatient (CLI) | payer OTHER ==
[~2018-11-28] MED LIST changes: +BUPIVACAINE HCL 0.25% 10 ML VIAL As Ordered ONE; +BUPIVACAINE HCL 0.25% 30 ML VIAL As Ordered ONE; +FLON1SPR NARES; +MEDR4PAK PO; +PROAAER10 INH; +ROBA750T4 PO; +TRIAMCINOLONE ACETONIDE SUSP 40 MG/ML VIAL (J3301) As Ordered ONE; +diazePAM 5 MG TAB As Ordered ONE; +diphenhydrAMINE 25 MG CAP As Ordered ONE; +oxyCODONE 5MG TAB As Ordered ONE
--- NOTE | 2018-12-14 00:36 | ECWPNPC ---
PATIENT NAME: SMITH VIVEROS : 1965 GENDER: FEMALE VISIT DATE: 11/28/2018 DISCHARGE DATE: 11/28/18 1725 VISIT LOCKED DATE TIME: PHYSICIAN: ARELIS MILLER MD RESOURCE: ARELIS MILLER MD REASON FOR APPOINTMENT 1. TPI BILAT LOW BACK HISTORY OF PRESENT ILLNESS FALL RISK SCREENING: SCREENING :NO FALLS REPORTED IN THE LAST YEAR SCREENING :NO FALLS REPORTED IN THE LAST YEAR CURRENT MEDICATIONS TAKING NITROGLYCERIN 0.4 MG TABLET SUBLINGUAL DIRECTED SUBLINGUAL EVERY 5 MIN: MDD 3 TABLETS TAKING SUCRALFATE 1 GM TABLET 1 TABLET ORALLY TWICE A DAY TAKING ELIQUIS 5 MG TABLET 1 TAB(S) ORALLY TWICE DAILY TAKING PROTONIX 40 MG TABLET DELAYED RELEASE 1 TABLET ORALLY BID TAKING METOPROLOL SUCCINATE 25 MG CAPSULE ER 24 HOUR SPRINKLE 1 CAPSULE ORALLY ONCE A DAY TAKING ROBAXIN 500 MG TABLET 1.5 TABLETS ORALLY EVERY 4 HRS NOT-TAKING PAROXETINE HCL 30 MG TABLET 1 TABLET IN THE MORNING ORALLY ONCE A DAY MEDICATION LIST REVIEWED AND RECONCILED WITH THE PATIENT PAST MEDICAL HISTORY FIBROMYALGIA DX 4 YEARS AGO, BEING FOLLOWED AT PAIN CLINIC MIGRAINE HEADACHE STRESS INCONTINENCE DEPRESSION HYPERLIPIDEMIA VITAMIN D DEFICIENCY AFIB GERD INTERMITTENT A FIB STRESS INCONTINENCE, FEMALE CHRONIC PAIN SYNDROME UNSPECIFIED VITAMIN D DEFICIENCY MIGRAINE, UNSPECIFIED WITHOUT MENTION OF INTRACTABLE MIGRAINE WITHOUT MENTION OF STATUS MIGRAINOSUS ALLERGIES ZIPSOR: ALLERGY FLEXERIL: AGGITATION - ALLERGY LYRICA: ANAPHYLAXIS - ALLERGY DICLOFENAC POTASSIUM: AGGITATION (ZIPSOR) - ALLERGY BACTRIM: NAUSEA/VOMITING - ALLERGY CYMBALTA: NAUSEA/VOMITING - SIDE EFFECTS AMITRIPTYLINE: AGGITATION - SIDE EFFECTS GABAPENTIN: HALLUCINATIONS - SIDE EFFECTS TIZANIDINE HCL: HIVES - ALLERGY KETOROLAC TROMETHAMINE: STOMACH PAIN - ALLERGY SURGICAL HISTORY TUBAL LIGATION 1987 DISTAL 4TH FINGER REPAIR SECONDARY TO TRAUMATIC INJURY BENIGN TUMOR REMOVAL RIGHT LEG DENTAL SURGERIES CHOLECYSTECTOMY 05/2014 HYSTERECTOMY STILL HAS 1 OVARY BUT NOT SURE WHICH ONE 2012 ABSCESS R GROIN 2014 LOOP RECORDER 10/2018 FAMILY HISTORY FATHER: , PNEUMONIA, CHF, NEUROPATHY, BLOOD CLOT, DIAGNOSED WITH DIABETES, UNSPECIFIED HEART DISEASE, UNSPECIFIED CEREBRAL ARTERY OCCLUSION WITH CEREBRAL INFARCTION MOTHER: , CANCER, DIABETES, HYPERTENSION, UNSPECIFIED HEART DISEASE, UNSPECIFIED CEREBRAL ARTERY OCCLUSION WITH CEREBRAL INFARCTION, OTHER MALIGNANT NEOPLASM OF UNSPECIFIED SITE SIBLINGS: ALIVE, LUPUS, DIABETES SON(S): ALIVE DAUGHTER(S): ALIVE 2 BROTHER(S) , 5 SISTER(S) . 1 SON(S) , 1 DAUGHTER(S) - HEALTHY. SOCIAL HISTORY GENERAL: TOBACCO USE ARE YOU A:FORMER SMOKER HOW LONG HAS IT BEEN SINCE YOU LAST SMOKED?5-10 YEARS VAPORNO E-CIGARETTEYES HIV / HEP-C SCREENING HIV TEST OFFERED TO PATIENT:YES DATE OFFERED:10/26/2017 TEST ACCEPTED:NO HEP-C TEST OFFERED TO PATIENT:NO REASON:PATIENT DECLINED BROCHURE PROVIDED TO PATIENTNO OTHERS AT HOME: [id number], BROTHER, NEPHEW AND BOYFRIEND. DIET: REGULAR. LANGUAGE UZBEK. DOMESTIC VIOLENCE DO YOU FEEL SAFE IN YOUR ENVIRONMENT?YES NEW PATIENT PAIN DIARY FROM 0-10, WHAT LEVEL IS YOUR PAIN TODAY?10 BMI CARE GOAL FOLLOW-UP ABOVE NORMAL BMI FOLLOW-UPLIFESTYLE EDUCATION REGARDING DIET RECREATIONAL DRUG USE DRUG USE?NO EXERCISE: NO REGULAR EXERCISE. LEARNING BARRIERS / SPECIAL NEEDS CHANGE FROM LAST VISIT?NO BARRIERS TO LEARNING?NO HEARING IMPAIRED?NO VISION IMPAIRED?YES COGNITIVELY IMPAIRED?NO :CORRECTIVE LENSES READINESS TO LEARN?YES LEARNING PREFERENCES?NO LEARNING CAPABILITIES PRESENT?YES EMOTIONAL BARRIERS?YES SPECIAL DEVICES?NO PAIN CLINIC PFS, CLERGY, PUBLIC HEALTH REFERRALS PFS REFERRAL NEEDED?NO CLERGY REFERRAL NEEDED?NO PUBLIC HEALTH REFERRAL NEEDED?NO WAS THE PROVIDER NOTIFIED OF ANY PERTINENT INFO?NO N/A HAS THE PATIENT BEEN EDUCATED REGARDING HIS/HER PLAN OF CARE?YES HAS THE PATIENT BEEN EDUCATED REGARDING PAIN, THE RISK FOR PAIN, THE IMPORTANCE OF EFFECTIVE PAIN MANAGEMENT, AND THE PAIN ASSESSMENT PROCESS?YES LATEX QUESTIONNAIRE LATEX ALLERGY : HAVE YOU EVER DEVELOPED ANY TYPE OF REACTION AFTER HANDLING LATEX PRODUCTS SUCH RUBBER GLOVES, CONDOMS, DIAPHRAGMS, BALLOONS, SOCKS, OR UNDERWEAR?NO LATEX ALLERGY : HAVE YOU EVER DEVELOPED ANY TYPE OF REACTION DURING OR AFTER DENTAL APPOINTMENT, VAGINAL/RECTAL EXAMINATION, SURGICAL PROCEDURE, OR ANY OTHER EXPOSURE?NO DATE ASKED : 10/02/2018 LATEX RISK : HAVE YOU EVER HAD ANY DIFFICULTY BREATHING OR HIVES AFTER EATING OR HANDLING ANY FRUITS, OR VEGETABLES; SUCH KIWI, BANANAS, STONE FRUITS, OR CHESTNUTSNO LATEX RISK : DO YOU HAVE A PREVIOUS PERSONAL HISTORY OF MORE THAN NINE SURGERIES, SPINA BIFIDA, OR REPEATED CATHERIZATIONS? YES - PLEASE INDICATE : > 9 SURGERIES LATEX RISK : ARE YOU FREQUENTLY EXPOSED TO LATEX PRODUCTS IN YOUR OCCUPATION?NO CAFFEINE CAFFEINE USE?YES ADVANCE DIRECTIVE ADVANCE DIRECTIVE DISCUSSED WITH PATIENT:YES PT HAS NO ADVANCED DIRECTIVES, DECLINES HCP INFORMATION AND ASSISTANCE WITH FORM AT THIS TIME. ZOROASTRIAN NO BUDDHISM BELIEFS THAT WOULD IMPACT HEALTH CARE. MARITAL STATUS: .. ALCOHOL SCREENING DID YOU HAVE A DRINK CONTAINING ALCOHOL IN THE PAST YEAR?NO POINTS0 INTERPRETATIONNEGATIVE OCCUPATION: UNEMPLOYED. SEXUAL HX HAD SEX IN THE LAST 12 MONTHS (VAGINAL, ORAL, OR ANAL)?NO HAVE YOU EVER HAD AN STD?NO 08/15/17 1025 REVIEWED WITH PT. AD03/15/2018 1508 REVIEWED WITH PT LAS03/27/18 1116 REVIEWED WITH PT BVREVIEWED WITH PATIENT 06/24/18 1028 JSREVIEWED WITH PATIENT 07/24/18 1257 JSREVIEWED WITH PT 09/30/18 1042 BV. HOSPITALIZATION/MAJOR DIAGNOSTIC PROCEDURE ABOVE SURGERIES MRSA RIGHT GROIN 2015, C DIFF 2014 CHEST PAIN 10/20/2016 [facility]- IMHU 09/2017 DIVERTICULITIS AND /HYPOTENSION 06/2018 SYNCOPE 09/2018 A-FIB AND LOOP RECORDER 10/2018 REVIEW OF SYSTEMS REVIEWED BY: PROVIDER: , . CONSTITUTIONAL: ANY CHANGE IN YOUR MEDICAL CONDITION? NO, NO . CHILLS NO, NO . FEVER NO, NO . INFECTION: DO YOU HAVE NEW INFECTIONS? NO, NO . DO YOU HAVE HISTORY OF MRSA? YES . MUSCULOSKELETAL: ANY NEW PATTERNS OF PAIN OR NUMBNESS? NO, NO . GASTROENTEROLOGY: ANY NEW CHANGE IN BOWEL CONTROL? NO, NO . GENITOURINARY: ANY NEW CHANGE IN BLADDER CONTROL? NO, NO . IS THERE A CHANCE YOU COULD BE ? NO, NO . HEMATOLOGY/LYMPH: DO YOU TAKE ANY BLOOD THINNERS? (FOR EXAMPLE- COUMADIN, PLAVIX, AGGRENOX, PLATEL, PRADAXA, OR XARELTO) ELEQUIS . WHEN WAS YOUR LAST DOSE? DATE: TIME: , DATE: TIME: . NEUROLOGY: HAVE YOU FALLEN IN THE PAST 12 MONTHS? NO, NO . ANY NEW EXTREMITY NUMBNESS OR WEAKNESS? NO, NO . CARDIOLOGY: DO YOU HAVE A PACEMAKER OR DEFIBRILLATOR? LOOP RECORDER . RESPIRATORY: HAVE YOU BEEN SICK IN THE PAST WEEK? NO, NO . FEVER NO, NO . FLU LIKE SYMPTOMS? NO, NO . COUGH NO, NO . INTEGUMENTARY: DO YOU HAVE ANY RASHES OR OPEN SORES? NO, NO . ALLERGIC/IMMUNO: ARE YOU ALLERGIC TO IV DYE? NO, NO . ANY NEW ALLERGIES? NO, NO . PSYCHIATRIC: DO YOU HAVE THOUGHTS OF HURTING YOURSELF OR SOMEONE ELSE? NO, NO . ARE YOU ABUSED, NEGLECTED, OR IN AN UNSAFE ENVIRONMENT? NO, NO . ENDOCRINOLOGY: ARE YOU DIABETIC? NO, NO . OTHER: DO YOU NEED ANY PRESCRIPTIONS? NO, NO . IF YES, PLEASE LIST: ____, ____ . ANY NEW PROBLEMS WITH YOUR MEDICATIONS? NO, NO . WHEN DID YOU LAST EAT? ____, ____1130 PM LAST NIGHT . WHEN DID YOU LAST DRINK? ____, ____8 AM . WHAT DID YOU LAST DRINK? ____, ____8 AM THIS MORNING . NAME OF PERSON DRIVING YOU HOME? ____, ____[employer] . DO YOU HAVE ANY OTHER QUESTIONS OR CONCERNS NO, NO . VITAL SIGNS WT 246.6 LBS, HT 61 IN, BMI 46.59 INDEX, BP 110/69 MM HG, HR 95 /MIN, RR 18 /MIN, TEMP 97.4 F, OXYGEN SAT % 95%, NA INITIALS AW 1445. ASSESSMENTS MYALGIA, OTHER SITE - M79.18 (PRIMARY) PROCEDURES PN TRIGGER POINT INJECTION WITH STEROIDS PRE PROCEDURE DIAGNOSIS 1. MYALGIA 2. PAIN AT BILATERAL LOWER BACK AREA POST PROCEDURE DIAGNOSIS 1. MYALGIA 2. PAIN AT BILATERAL LOWER BACK AREA PROCEDURE TRIGGER POINT INJECTION AT RIGHT AND LEFT LOWER BACK AREA SURGEON DR. ARELIS MILLER PAINTER AND DECORATOR APPRENTICE NONE ANESTHESIA LOCAL PRE PROCEDURE NOTE THE PATIENT HAS A HISTORY OF CHRONIC PAIN AT THE RIGHT AND LEFT LOWER BACK AREA. I EVALUATED THE PATIENT AND REVIEWED THE CHART. THERE IS EVIDENCE OF BANDS OF TISSUE WITH RESTRICTION OF MOVEMENT AND PRESENCE OF TRIGGER POINT AT THE AFFECTED AREA. I WENT OVER THE RISKS, ALTERNATIVES, AND BENEFITS ASSOCIATED WITH THIS PROCEDURE. THE PATIENT WOULD LIKE TO PROCEED AND GIVE CONSENT TO PERFORMED THE PROCEDURE. THE PATIENT DENIES UNEXPLAINABLE WEIGHT LOSS, FEVER, CHILLS, OR NEW CHANGES IN URINARY OR BOWEL CONTROL DESCRIPTION OF PROCEDURE THE PATIENT WAS BROUGHT TO THE PROCEDURE ROOM AND PLACED IN THE SITTING POSITION. THE AREA WAS CLEANED WITH ALCOHOL. THE PROCEDURE WAS DONE USING ASEPTIC STERILE TECHNIQUE. I CHECKED LATERALITY AND THE LEVEL WHERE THE PROCEDURE WAS GOING TO BE PERFORMED WITH THE PATIENT AND THE SUPPORTING STAFF AT THE MOMENT OF THE TIME OUT IN THE PROCEDURE ROOM. USING A 25-GAUGE NEEDLE, TRIGGER POINTS WERE INJECTED AT THE RIGHT AND LEFT LOWER BACK AREA WITH A TOTAL OF 40 ML OF BUPIVACAINE 0.25% AND KENALOG 40 MG. THERE WAS NO EVIDENCE OF BLOOD, PARESTHESIA OR CEREBROSPINAL FLUID DURING THE PROCEDURE. THE PATIENT WAS SENT TO THE RECOVERY ROOM. THE PATIENT WAS MOVING THE EXTREMITIES AND DOING WELL. THERE WAS NO COMPLICATION DURING THE PROCEDURE POST PROCEDURE NOTE THE PATIENT WILL BE SEEN IN A FOLLOW UP IN THE NEXT FEW WEEKS. INSTRUCTIONS WERE GIVEN, QUESTIONS WERE ANSWERED, AND THE PATIENT EXPRESSED UNDERSTANDING AND AGREES WITH THE PLAN. I, ANDREA ADAME, DOCUMENTED THE ABOVE INFORMATION ACTING A SCRIBE FOR DR. MILLER. I HAVE REVIEWED THE ABOVE DOCUMENT, WRITTEN BY ANDREA PALMER AND I VERIFY THAT IT IS ACCURATE. PROCEDURE CODES 80675 INJ TRIGGER POINT /2 [facility] DISPOSITION & COMMUNICATION FOLLOW UP 3 WEEKS ELECTRONICALLY SIGNED BY ARELIS MILLER MD, MD ON 12/13/2018 AT 09:54 AM EDT DISCLAIMER : THIS IS A VISIT SUMMARY EXTRACTED FROM THE [employer] CHART. IT IS NOT A COPY OF THE [employer] PROGRESS NOTE. RITA
== END ==
LOC: M PAIN 15:15
PROVIDERS: ATTEND Anesthesiology
DX: M79.18 Myalgia, other site (principal); G43.909 Migraine, unspecified, not intractable, without status migrainosus; F32.9 Major depressive disorder, single episode, unspecified; E78.5 Hyperlipidemia, unspecified; E55.9 Vitamin D deficiency, unspecified; I48.91 Unspecified atrial fibrillation; K21.9 Gastro-esophageal reflux disease without esophagitis; G89.4 Chronic pain syndrome; N39.3 Stress incontinence (female) (male); Z90.49 Acquired absence of other specified parts of digestive tract; Z87.891 Personal history of nicotine dependence; Z79.01 Long term (current) use of anticoagulants; Z79.899 Other long term (current) drug therapy; Z88.2 Allergy status to sulfonamides; Z88.8 Allergy status to other drugs, medicaments and biological substances
CPT/HCPCS: 20552; J3301

== ENCOUNTER 2018-11-29 17:55 | Emergency (ER) | payer OTHER ==
[~2018-11-29] VITALS: Ht 157.5 cm; Wt 111.8 kg
[~2018-11-29 17:55] MED LIST changes: -BUPIVACAINE HCL 0.25% 10 ML VIAL As Ordered ONE; -BUPIVACAINE HCL 0.25% 30 ML VIAL As Ordered ONE; -FLON1SPR NARES; -MEDR4PAK PO; -PROAAER10 INH; -ROBA750T4 PO; -TRIAMCINOLONE ACETONIDE SUSP 40 MG/ML VIAL (J3301) As Ordered ONE; -diazePAM 5 MG TAB As Ordered ONE; -diphenhydrAMINE 25 MG CAP As Ordered ONE; -oxyCODONE 5MG TAB As Ordered ONE
[2018-11-29] MEDS ORDERED: IPRATROPIUM 0.5MG/ALBUTEROL 2.5MG INH SOL UD 3ML (DUONEB)(J7620) NEB ONE (20:30)
[2018-11-29 21:07] VITALS: BP 131/76
--- NOTE | 2018-11-30 07:08 | REP ---
CHEST, TWO VIEWS: COMPARISON: 11/19/2018 as well as other prior exams. There is no acute infiltrate or pulmonary edema. There is mild cardiomegaly. Mediastinal silhouette is unchanged. Calcified granuloma is again seen in the left lung base. IMPRESSION: No acute infiltrate. Electronically Signed by Jose Martinez MD 12/01/2018 05:41 P
== END 2018-11-29 21:07 | disposition home or self-care (01) ==
LOC: M ED 17:55
DX: J44.1 Chronic obstructive pulmonary disease with (acute) exacerbation (principal); J45.909 Unspecified asthma, uncomplicated; G47.33 Obstructive sleep apnea (adult) (pediatric); I48.91 Unspecified atrial fibrillation; I11.0 Hypertensive heart disease with heart failure; I50.9 Heart failure, unspecified; I25.2 Old myocardial infarction; Z87.891 Personal history of nicotine dependence; Z88.0 Allergy status to penicillin; Z88.1 Allergy status to other antibiotic agents; Z88.2 Allergy status to sulfonamides; Z88.8 Allergy status to other drugs, medicaments and biological substances; Z79.899 Other long term (current) drug therapy; Z79.01 Long term (current) use of anticoagulants

== ENCOUNTER 2018-12-02 16:10 | Emergency (ER) | payer OTHER ==
[~2018-12-02] VITALS: Ht 157.5 cm; Wt 111.6 kg
[2018-12-02] MEDS ORDERED: ROBA750T4 PO (19:06)
[2018-12-02] MEDS ORDERED: BENZONATATE 100 MG CAP PO ONE (19:45)
[2018-12-02] MEDS ORDERED: ALBUTEROL 90 MCG/ACT 8GM HFA INHALER INH ONE (19:45)
[2018-12-02] MEDS ORDERED: PROAAER10 INH (19:48)
[2018-12-02] MEDS ORDERED: TESS100C PO (19:48)
[2018-12-02] MEDS ORDERED: FLON1SPR NARES (19:48)
[2018-12-02 19:49] VITALS: BP 117/69
--- NOTE | 2018-12-03 07:21 | REP ---
CHEST PA AND LATERAL: 12/02/2018. COMPARISON: 11/29/2018, 10/31/2018. CT angio chest 07/21/2018. CLINICAL HISTORY: Cough, COPD. FINDINGS: Lungs are hypoinflated on this study. Density at the left lower lung zone is again seen and this is confirmed as a calcified granuloma on CT in July. There is no pleural effusion or dense consolidation. Heart, mediastinal and hilar contours are unchanged. Aorta and airway intact. Loop recorder over the anterior left chest. IMPRESSION: 1. Somewhat hypoinflated chest without acute cardiopulmonary disease. There is a loop recorder over the left chest wall and a calcified granuloma in the left base, stable. Electronically Signed by Maicol Rush MD 12/03/2018 08:19 A
== END 2018-12-02 20:20 | disposition home or self-care (01) ==
LOC: M ED 16:10
DX: R09.81 Nasal congestion (principal); J44.9 Chronic obstructive pulmonary disease, unspecified; I11.0 Hypertensive heart disease with heart failure; I50.9 Heart failure, unspecified; I48.91 Unspecified atrial fibrillation; I25.2 Old myocardial infarction; E78.5 Hyperlipidemia, unspecified; Z86.718 Personal history of other venous thrombosis and embolism; A04.72 Enterocolitis due to Clostridium difficile, not specified as recurrent; Z88.8 Allergy status to other drugs, medicaments and biological substances; Z88.1 Allergy status to other antibiotic agents; Z88.0 Allergy status to penicillin; Z88.2 Allergy status to sulfonamides; Z79.899 Other long term (current) drug therapy; Z79.01 Long term (current) use of anticoagulants

== ENCOUNTER 2018-12-16 03:52 | Emergency (ER) | payer OTHER ==
[~2018-12-16] VITALS: Ht 157.5 cm; Wt 112.4 kg
[~2018-12-16 03:52] MED LIST changes: +FLON1SPR NARES; +PROAAER10 INH; +ROBA750T4 PO
[2018-12-16] MEDS ORDERED: MEDR4PAK PO (05:58)
[2018-12-16] MEDS ORDERED: methylPREDNISolone 4 MG TAB PO ONE (06:00)
[2018-12-16 06:25] VITALS: BP 153/90
--- NOTE | 2018-12-16 08:08 | REP ---
Left shoulder three views : There is no fracture or dislocation. Mineralization and joint spaces are normal. There are no calcifications or foreign bodies. Impression: Negative left shoulder . Electronically Signed by Jose Castillo MD 12/16/2018 08:00 A
== END 2018-12-16 06:42 | disposition home or self-care (01) ==
LOC: M ED 03:52
DX: S43.402A Unspecified sprain of left shoulder joint, initial encounter (principal); W18.39XA Other fall on same level, initial encounter; Y92.9 Unspecified place or not applicable; Z79.899 Other long term (current) drug therapy

== ENCOUNTER → 2018-12-23 | Outpatient (CLI) | payer OTHER ==
[~2018-12-23] MED LIST changes: +MEDR4PAK PO
== END ==
LOC: M PAIN 14:15
PROVIDERS: ATTEND Family Medicine
DX: M79.18 Myalgia, other site (principal); G43.909 Migraine, unspecified, not intractable, without status migrainosus; Z86.59 Personal history of other mental and behavioral disorders; E78.5 Hyperlipidemia, unspecified; K21.9 Gastro-esophageal reflux disease without esophagitis; Z88.1 Allergy status to other antibiotic agents; Z88.8 Allergy status to other drugs, medicaments and biological substances; Z86.14 Personal history of Methicillin resistant Staphylococcus aureus infection; Z79.01 Long term (current) use of anticoagulants; E66.01 Morbid (severe) obesity due to excess calories; Z68.42 Body mass index [BMI] 45.0-49.9, adult; Z79.899 Other long term (current) drug therapy

== ENCOUNTER 2018-12-24 14:04 | Emergency (ER) | payer OTHER ==
[~2018-12-24] VITALS: Ht 157.5 cm; Wt 111.4 kg
--- NOTE | 2018-12-24 15:24 | REP ---
Chest x-ray: Two views. History: Chest pain. Findings: The lungs are well inflated and free of infiltrate. There is a granuloma projecting in the left base unchanged from comparison study 12/02/2018 and 11/29/2018. This has a benign appearance with central calcification. A loop recorder is seen projecting over the heart in the left precordium as before. Pleural angles are sharp. The heart is not enlarged. Pulmonary vasculature is not increased. No significant bony abnormality is seen. Impression: No active cardiopulmonary disease. Granuloma left lower lobe. Loop recorder seen. Electronically Signed by Dominic Chao MD 12/24/2018 06:49 P
[2018-12-24 15:53] LABS: BASO % 0.4 % (0.0-1.0); EOS # 0.1 10^3/uL (0.0-0.5); EOS % 1.7 % (0.0-3.0); HEMOGLOBIN 14.6 g/dl (12.0-15.5); LYMPH # 1.7 10^3/uL (1.5-5.0); LYMPH % 34.1 % (24.0-44.0); MEAN CORPUSCULAR HEMOGLOBIN 30.6 pg (27.0-33.0); MEAN CORPUSCULAR HGB CONC 33.2 g/dl (32.0-36.5); MEAN CORPUSCULAR VOLUME 92.2 fl (80.0-96.0); MONO # 0.4 10^3/uL (0.0-0.8); MONO % 8.9 % (0.0-5.0); NEUTROPHILS # 2.7 10^3/uL (1.5-8.5); NEUTROPHILS % 54.7 % (36.0-66.0); PLATELET COUNT, AUTOMATED 181 10^3/uL (150-450); RED BLOOD COUNT 4.77 10^6/uL (4.00-5.40); WHITE BLOOD COUNT 4.8 10^3/uL (4.0-10.0)
--- NOTE | 2018-12-24 16:18 | REP ---
CT brain: 12/24/2018. Indication: Syncope. Comparison: 10/24/2018. Technique: Axial images of the brain were obtained from skull base to vertex. Findings: There is no acute intracranial hemorrhage, acute cortical infarction, mass effect, hydrocephalus or acute calvarial fracture. Brain density appears normal. Impression: No acute intracranial process. Electronically Signed by Jose Sosa DO 12/24/2018 04:10 P
[2018-12-24 16:27] LABS: ALBUMIN 3.1 GM/DL (3.2-5.2); ALT/SGPT 36 U/L (12-78); BILIRUBIN,DIRECT 0.1 MG/DL (0.0-0.2); BILIRUBIN,TOTAL 0.4 MG/DL (0.2-1.0); BLOOD UREA NITROGEN 11 MG/DL (7-18); CALCIUM LEVEL 8.8 MG/DL (8.5-10.1); CARBON DIOXIDE LEVEL 31 MEQ/L (21-32); CHLORIDE LEVEL 108 MEQ/L (98-107); CK-MB VALUE MASS < 1.0 NG/ML (<3.6); CPK CREATINE PHOSPHOKINASE 130 U/L (26-192); CREATININE FOR GFR 0.96 MG/DL (0.55-1.30); GLOMERULAR FILTRATION RATE > 60.0 (>51); GLUCOSE, FASTING 74 MG/DL (70-100); LIPASE 165 U/L (73-393); MB/CK RELATIVE INDEX 0.77 (< OR =4); POTASSIUM SERUM 3.9 MEQ/L (3.5-5.1); SODIUM LEVEL 142 MEQ/L (136-145); TOTAL PROTEIN 6.3 GM/DL (6.4-8.2); TROPONIN I < 0.02 NG/ML (< 0.10)
[2018-12-24 16:51] VITALS: BP 106/60
--- NOTE | 2018-12-24 21:32 | ECGEPIP ---
[facility] - ED Test Date: 2018-12-24 Pat Name: SMITH VIVEROS Department: Room: - Gender: Female Quarter Trimmer: : 1965 Requested By: CHARLEEN DUTTA Order Number: [id number] Reading MD: Barrie Mobley Measurements Intervals [place] Rate: 81 P: 22 WA: 147 QRS: 14 QRSD: 95 T: 28 QT: 360 QTc: 420 Interpretive Statements SINUS RHYTHM PROBABLE INFERIOR MYOCARDIAL INFARCTION, PROBABLY OLD SIMILAR TO 11/19/18 Electronically Signed on 12-24-2018 21:32:27 EDT by Barrie Mobley
== END 2018-12-24 17:14 | disposition home or self-care (01) ==
LOC: M ED 14:04
DX: R55 Syncope and collapse (principal); R91.8 Other nonspecific abnormal finding of lung field; R07.89 Other chest pain; I51.9 Heart disease, unspecified; E11.9 Type 2 diabetes mellitus without complications; I10 Essential (primary) hypertension; M79.7 Fibromyalgia; Z95.818 Presence of other cardiac implants and grafts; Z79.01 Long term (current) use of anticoagulants; Z79.899 Other long term (current) drug therapy; Z88.0 Allergy status to penicillin; Z88.1 Allergy status to other antibiotic agents; Z88.8 Allergy status to other drugs, medicaments and biological substances; Z88.2 Allergy status to sulfonamides

== ENCOUNTER 2018-12-30 18:50 | Emergency (ER) | payer OTHER ==
[~2018-12-30] VITALS: Ht 157.5 cm; Wt 113.6 kg
[2018-12-30] MEDS ORDERED: BACL1TAB8 GT (19:12)
[2018-12-30 19:48] LABS: BASO % 0.5 % (0.0-1.0); EOS # 0.1 10^3/uL (0.0-0.5); EOS % 1.2 % (0.0-3.0); HEMATOCRIT 43.3 % (36.0-47.0); HEMOGLOBIN 14.2 g/dl (12.0-15.5); LYMPH # 1.9 10^3/uL (1.5-5.0); LYMPH % 32.1 % (24.0-44.0); MEAN CORPUSCULAR HEMOGLOBIN 30.6 pg (27.0-33.0); MEAN CORPUSCULAR HGB CONC 32.8 g/dl (32.0-36.5); MEAN CORPUSCULAR VOLUME 93.3 fl (80.0-96.0); MONO # 0.5 10^3/uL (0.0-0.8); MONO % 7.8 % (0.0-5.0); NEUTROPHILS # 3.4 10^3/uL (1.5-8.5); NEUTROPHILS % 57.9 % (36.0-66.0); PLATELET COUNT, AUTOMATED 218 10^3/uL (150-450); RED BLOOD COUNT 4.64 10^6/uL (4.00-5.40); WHITE BLOOD COUNT 5.8 10^3/uL (4.0-10.0)
[2018-12-30 20:10] LABS: ALBUMIN 3.1 GM/DL (3.2-5.2); ALT/SGPT 35 U/L (12-78); BILIRUBIN,TOTAL 0.2 MG/DL (0.2-1.0); BLOOD UREA NITROGEN 11 MG/DL (7-18); CARBON DIOXIDE LEVEL 31 MEQ/L (21-32); CHLORIDE LEVEL 110 MEQ/L (98-107); CREATININE FOR GFR 0.99 MG/DL (0.55-1.30); GLOMERULAR FILTRATION RATE > 60.0 (>51); GLUCOSE, FASTING 89 MG/DL (70-100); SODIUM LEVEL 144 MEQ/L (136-145); TOTAL PROTEIN 6.4 GM/DL (6.4-8.2)
--- NOTE | 2018-12-30 20:42 | REPVR ---
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 Radiation optimization: All CT scans at this facility use at least one of these dose optimization techniques: automated exposure control; mA and/or kV adjustment per patient size (includes targeted exams where dose is matched to clinical indication); or iterative reconstruction. COMPARISON: CT Head without contrast 12/24/2018 3:46 PM FINDINGS: Brain: No hemorrhage. Unremarkable white matter for the patient's age. No mass effect. No evolving territorial infarct. Ventricles: No ventriculomegaly. Bones/joints: No acute calvarial fracture seen. Sinuses: Visualized sinuses are unremarkable. No fluid levels. Mastoid air cells: No significant mastoid effusions. Soft tissues: Unremarkable. IMPRESSION: No acute intracranial abnormality seen. Electronically signed by: Maribel Wilkins On 12/30/2018 20:42:03 PM
[2018-12-30] MEDS ORDERED: ONDANSETRON 4MG/2ML VIAL (J2405) IV ONE (20:45)
[2018-12-30] MEDS ORDERED: NS 1,000 ML IV ONE (20:45)
[2018-12-30] MEDS ORDERED: MECLIZINE 25 MG TABLET PO ONE (21:45)
[2018-12-31] VITALS: BP 127/68
[2018-12-31] MEDS ORDERED: MECL-68 PO (00:12)
--- NOTE | 2018-12-31 10:10 | ECGEPIP ---
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
== END 2018-12-31 00:20 | disposition home or self-care (01) ==
LOC: M ED 18:50
DX: R55 Syncope and collapse (principal); I95.9 Hypotension, unspecified; M79.7 Fibromyalgia; I25.10 Atherosclerotic heart disease of native coronary artery without angina pectoris; Z76.5 Malingerer [conscious simulation]; Z79.899 Other long term (current) drug therapy; Z79.01 Long term (current) use of anticoagulants; Z88.0 Allergy status to penicillin; Z88.1 Allergy status to other antibiotic agents; Z88.2 Allergy status to sulfonamides; Z88.8 Allergy status to other drugs, medicaments and biological substances
CPT/HCPCS: 70450; 80053; 85025; 93005; 96361; 96374; 99285; J2405

== ENCOUNTER 2019-01-01 18:26 | Emergency (ER) | payer OTHER ==
[~2019-01-01] VITALS: Ht 157.5 cm; Wt 110.0 kg
[~2019-01-01 18:26] MED LIST changes: +BACL1TAB8 GT; +MECL-68 PO
[2019-01-01 20:37] VITALS: BP 126/63
== END 2019-01-01 20:44 | disposition home or self-care (01) ==
LOC: EDBD 18:26 → EDUNIT# 18:26 → M ED 18:26
DX: G89.4 Chronic pain syndrome (principal); I48.91 Unspecified atrial fibrillation; I50.9 Heart failure, unspecified; J44.9 Chronic obstructive pulmonary disease, unspecified; I11.0 Hypertensive heart disease with heart failure; Z88.0 Allergy status to penicillin; Z88.1 Allergy status to other antibiotic agents; Z88.2 Allergy status to sulfonamides; Z88.8 Allergy status to other drugs, medicaments and biological substances; Z79.899 Other long term (current) drug therapy

== ENCOUNTER 2019-01-02 19:16 | Emergency (ER) | payer OTHER ==
[~2019-01-02] VITALS: Ht 157.5 cm; Wt 111.4 kg
[2019-01-02 21:53] LABS: BASO % 0.2 % (0.0-1.0); EOS % 0.7 % (0.0-3.0); HEMATOCRIT 41.7 % (36.0-47.0); HEMOGLOBIN 13.7 g/dl (12.0-15.5); LYMPH # 1.8 10^3/uL (1.5-5.0); LYMPH % 31.4 % (24.0-44.0); MEAN CORPUSCULAR HEMOGLOBIN 30.6 pg (27.0-33.0); MEAN CORPUSCULAR HGB CONC 32.9 g/dl (32.0-36.5); MEAN CORPUSCULAR VOLUME 93.3 fl (80.0-96.0); MONO # 0.4 10^3/uL (0.0-0.8); MONO % 7.6 % (0.0-5.0); NEUTROPHILS # 3.5 10^3/uL (1.5-8.5); NEUTROPHILS % 59.9 % (36.0-66.0); PLATELET COUNT, AUTOMATED 194 10^3/uL (150-450); RED BLOOD COUNT 4.47 10^6/uL (4.00-5.40); WHITE BLOOD COUNT 5.8 10^3/uL (4.0-10.0)
[2019-01-02 22:27] LABS: BLOOD UREA NITROGEN 14 MG/DL (7-18); CALCIUM LEVEL 9.1 MG/DL (8.5-10.1); CARBON DIOXIDE LEVEL 32 MEQ/L (21-32); CHLORIDE LEVEL 106 MEQ/L (98-107); CK-MB VALUE MASS < 1.0 NG/ML (<3.6); CPK CREATINE PHOSPHOKINASE 136 U/L (26-192); CREATININE FOR GFR 1.42 MG/DL (0.55-1.30); GLOMERULAR FILTRATION RATE 41.2 (>51); GLUCOSE, FASTING 93 MG/DL (70-100); MB/CK RELATIVE INDEX 0.74 (< OR =4); POTASSIUM SERUM 3.9 MEQ/L (3.5-5.1); SODIUM LEVEL 143 MEQ/L (136-145); TROPONIN I < 0.02 NG/ML (< 0.10)
[2019-01-02] MEDS ORDERED: NS 1,000 ML IV ONE (23:30)
[2019-01-03 00:38] VITALS: BP 127/79
--- NOTE | 2019-01-03 12:23 | REP ---
Clinical: Chest pain . Comparison: 12/24/2018 . Findings: The mediastinum and cardiac silhouette are stable and within normal limits for portable technique. Loop recorder again identified. The lung thomason are clear without acute consolidation, effusion, or pneumothorax. Stable granuloma in the left lower lobe. Skeletal structures are intact. Impression: No acute cardiopulmonary process appreciated. Electronically Signed by Fletcher Serna MD 01/03/2019 12:14 P
--- NOTE | 2019-01-03 21:24 | ECGEPIP ---
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
== END 2019-01-03 00:43 | disposition home or self-care (01) ==
LOC: M ED 19:16
DX: R07.89 Other chest pain (principal); E86.0 Dehydration; I48.91 Unspecified atrial fibrillation; Z88.0 Allergy status to penicillin; Z88.1 Allergy status to other antibiotic agents; Z88.2 Allergy status to sulfonamides; Z88.8 Allergy status to other drugs, medicaments and biological substances; Z79.899 Other long term (current) drug therapy

== ENCOUNTER 2019-01-27 21:28 | Emergency (ER) | payer OTHER ==
[~2019-01-27] VITALS: Ht 157.5 cm; Wt 114.0 kg
[2019-01-28] MEDS ORDERED: MECL-58 PO (00:33)
[2019-01-28] MEDS ORDERED: PERCOCET 5MG/325MG TAB PO ONE (02:30)
--- NOTE | 2019-01-28 03:48 | REPVR ---
PROCEDURE INFORMATION: Exam: US Duplex Left Upper Extremity Veins, Limited Exam date and time: 01/28/19 (3:05am) Clinical history: 53 year old female with left arm pain. Possible DVT. TECHNIQUE: Imaging protocol: Real-time Duplex ultrasound of the Left Upper Extremity with 2-D rm scale, color Doppler flow and spectral waveform analysis with image documentation. Limited exam focused on the left upper extremity veins. COMPARISON: US DUPLEX EXT UPPER VEINS (left arm) of 04/16/18 FINDINGS: Left deep veins: Unremarkable. Axillary and brachial veins are patent throughout without thrombus. Normal Doppler waveforms. Normal compressibility and/or augmentation response. Visualized internal jugular and subclavian veins are patent. Left superficial veins: Unremarkable. Visualized cephalic and basilic veins are patent without thrombus. Soft tissues: Unremarkable. IMPRESSION: No acute findings. No evidence of venous thrombosis. Electronically signed by: Keshia Zuniga On 01/28/2019 03:48:10 AM
[2019-01-28 04:50] VITALS: BP 151/85
--- NOTE | 2019-01-28 08:13 | REP ---
Left shoulder series: Three views. History: Shoulder pain. Comparison left shoulder radiographs are from December 16, 2018. Findings: There is minimal hypertrophy at the AC joint. The glenohumeral and acromioclavicular joints are normally aligned. Periarticular soft tissues are unremarkable. No erosive changes are seen. Impression: Minimal AC joint hypertrophy. Otherwise negative left shoulder radiographs. Electronically Signed by Dominic Chao MD 01/28/2019 08:05 A
== END 2019-01-28 04:52 | disposition home or self-care (01) ==
LOC: M ED 21:28
DX: M25.512 Pain in left shoulder (principal); I48.91 Unspecified atrial fibrillation; I25.10 Atherosclerotic heart disease of native coronary artery without angina pectoris; F31.9 Bipolar disorder, unspecified; M79.7 Fibromyalgia; E78.9 Disorder of lipoprotein metabolism, unspecified; M54.9 Dorsalgia, unspecified; F44.5 Conversion disorder with seizures or convulsions; G43.909 Migraine, unspecified, not intractable, without status migrainosus; E66.9 Obesity, unspecified; Z68.42 Body mass index [BMI] 45.0-49.9, adult; Z87.891 Personal history of nicotine dependence; Z79.899 Other long term (current) drug therapy; Z79.01 Long term (current) use of anticoagulants; Z88.1 Allergy status to other antibiotic agents; Z88.2 Allergy status to sulfonamides; Z88.0 Allergy status to penicillin; Z88.8 Allergy status to other drugs, medicaments and biological substances

== ENCOUNTER → 2019-02-04 | Outpatient (CLI) | payer OTHER ==
[~2019-02-04] MED LIST changes: +MECL-58 PO
[2019-02-04 12:56] LABS: HEMATOCRIT 42.2 % (36.0-47.0); HEMOGLOBIN 13.7 g/dl (12.0-15.5); MEAN CORPUSCULAR HEMOGLOBIN 30.1 pg (27.0-33.0); MEAN CORPUSCULAR HGB CONC 32.5 g/dl (32.0-36.5); MEAN CORPUSCULAR VOLUME 92.7 fl (80.0-96.0); PLATELET COUNT, AUTOMATED 178 10^3/uL (150-450); RED BLOOD COUNT 4.55 10^6/uL (4.00-5.40)
--- NOTE | 2019-02-04 12:57 | REP ---
Clinical: Preoperative assessment . Comparison: 01/02/2019, 12/24/2015 . Technique: PA and lateral. Findings: The mediastinum and cardiac silhouette are normal. The lung thomason are clear and without acute consolidation, effusion, or pneumothorax. Chronic 1 cm calcified granuloma in the left mid lung zone again identified. The skeletal structures are intact and normal. Loop recorder noted. Impression: 1. No acute cardiopulmonary process. Electronically Signed by Fletcher Serna MD 02/04/2019 12:49 P
[2019-02-04 13:04] LABS: INR 0.99; PROTHROMBIN TIME 12.8 SECONDS (11.8-14.0)
[2019-02-04 13:17] LABS: POTASSIUM SERUM 3.8 MEQ/L (3.5-5.1)
== END ==
LOC: M LAB 12:19
PROVIDERS: ATTEND Orthopaedic Surgery Sports Medicine
DX: Z01.818 Encounter for other preprocedural examination (principal); I51.9 Heart disease, unspecified; M75.42 Impingement syndrome of left shoulder

== ENCOUNTER 2019-02-20 05:26 | Inpatient (IN) | payer OTHER ==
[~2019-02-20] VITALS: Ht 157.5 cm; Wt 113.4 kg
[~2019-02-20 05:26] MED LIST changes: -MECL-68 PO; +MECL1TAB31 PO; -METH4TAB28 PO; +METH4TAB8 PO; +OMEP1CAP73 PO; -OMEP20CA4 PO; +ONDA-83 PO; -ONDA4TAB5 PO
[2019-02-20] MEDS ORDERED: dexameTHASONE 10 MG/1 ML VIAL PRES.FREE (J1100) ONE (05:27)
[2019-02-20] MEDS ORDERED: ROPIvacaine 0.5% 30 ML INJECTION (J2795 PER 1MG) ONE (05:27)
[2019-02-20] MEDS ORDERED: EPINEPHrine INJ 1 MG/ML 1ML VIAL ONE (05:27)
[2019-02-20] MEDS ORDERED: LR 1,000 ML IV ONE (06:30)
[2019-02-20] MEDS ORDERED: ceFAZolin SOD 2 GM in IV 1 EA IV ONE (06:30)
[2019-02-20] MEDS ORDERED: EPINEPHrine 1MG/ML INJ 30ML MD-VIAL As Ordered ONE (06:55)
[2019-02-20] MEDS ORDERED: MIDAZOLAM INJ 2 MG/2 ML VIAL (J2250) As Ordered ONE ×2 (07:00→07:05)
[2019-02-20] MEDS ORDERED: fentaNYL 100 MCG/2 ML INJECTION (J3010) As Ordered ONE ×2 (07:00→07:04)
[2019-02-20] MEDS ORDERED: LIDOCAINE 2% INJ 100 MG/5 ML SDV (FOR ANES.) As Ordered ONE (07:04)
[2019-02-20] MEDS ORDERED: propofoL 200 MG/20 ML VIAL As Ordered ONE (07:04)
[2019-02-20] MEDS ORDERED: ROCURONIUM BROMIDE 50 MG/5 ML VIAL As Ordered ONE ×2 (07:04→10:33)
[2019-02-20] MEDS ORDERED: ONDANSETRON 4MG/2ML VIAL (J2405) As Ordered ONE (07:05)
[2019-02-20] MEDS ORDERED: ACETAMINOPHEN 1000MG 100ML IV BTL (OFIRMEV) (J0131 PER 10MG) As Ordered ONE (07:05)
[2019-02-20] MEDS ORDERED: KETOROLAC 60 MG/2 ML VIAL (J1885) As Ordered ONE (07:05)
[2019-02-20] MEDS ORDERED: SUGAMMADEX SODIUM 500 MG/5 ML VIAL (BRIDION) As Ordered ONE (07:05)
[2019-02-20] MEDS ORDERED: dexameTHASONE 4 MG/ML 1ML VIAL (J1100) As Ordered ONE (07:05)
[2019-02-20] MEDS: fentaNYL 100 MCG/2 ML INJECTION (J3010) IV SCH ×2 (07:29→07:37)
[2019-02-20] MEDS ORDERED: MIDAZOLAM INJ 2 MG/2 ML VIAL (J2250) IV ONE (08:00)
[2019-02-20] MEDS ORDERED: ONDANSETRON 4MG/2ML VIAL (J2405) IV ONE (08:00)
[2019-02-20] MEDS ORDERED: LR 1,000 ML IV SCH (09:45)
[2019-02-20] MEDS ORDERED: ONDANSETRON 4MG/2ML VIAL (J2405) IV PRN (09:45)
[2019-02-20] MEDS: fentaNYL 100 MCG/2 ML INJECTION (J3010) IV PRN ×4 (09:50→10:13)
[2019-02-20] MEDS: PERCOCET 5MG/325MG TAB PO PRN ×4 (10:32→23:05)
[2019-02-20] MEDS: LR 1,000 ML IV SCH ×2 (10:46→18:37)
[2019-02-20] MEDS ORDERED: ACETAMINOPHEN TAB 650MG DOSE (2X325MG) PO PRN (10:46)
[2019-02-20] MEDS ORDERED: PERCOCET 5MG/325MG TAB As Ordered ONE (11:03)
[2019-02-20] MEDS: MORPHINE 2 MG/ML 1ML VIAL (J2270) IV PRN ×2 (12:37→21:32)
--- NOTE | 2019-02-20 12:54 | RO ---
DATE OF PROCEDURE: 02/20/2019 PREOPERATIVE DIAGNOSIS: Left shoulder impingement syndrome. POSTOPERATIVE DIAGNOSIS: Left shoulder impingement syndrome. PLANNED PROCEDURE: Left shoulder arthroscopy, subacromial decompression, possible rotator cuff repair, possible biceps tenodesis. PROCEDURE PERFORMED: Left shoulder arthroscopy, subacromial decompression, limited debridement. SURGEON: Arnaud Kelly MD PORCELAIN SLUSHER: Jessika Santos PA-C FREIGHT SHIPPING AGENT: Dr. Cash TYPE OF ANESTHETIC: General anesthetic plus preoperative block. HISTORY OF PRESENT ILLNESS: This 53-year-old female has had signs and symptoms, MRI findings consistent with impingement syndrome of her left shoulder. We tried nonoperative care and this failed. She wished to proceed with arthroscopy, subacromial decompression. We signed consent forms for surgery. I reminded her of these risks preoperatively and marked the left upper extremity. OPERATIVE REPORT: Patient was brought to operating theater. Preoperative block was performed. She was then placed supine on the operating room table with a beanbag underneath her. General anesthesia was induced. 2 grams of IV Ancef was administered. The patient was positioned left lateral decubitus with an axillary roll and all bony prominences were padded as well as sequential compression devices (SCD) and Bethany Hugger used. She was then prepped and draped in the usual sterile fashion. Prep solution allowed thoroughly dry before draping. Arm traction setup was used with 50 pounds of traction throughout the case. Preoperative time out was performed confirming the site, the patient and surgery. I began by making a standard posterior arthroscopy portal inserting the arthroscope into the intra-articular portion of the left shoulder. I performed a full diagnostic arthroscopy. Cartilage on humeral head and glenoid was normal. There was some mild superficial fraying at the 2 o'clock position on the labrum. Inside out anterior portal was then made through the rotator interval, just posterior to the biceps tendon. Shaver was brought in. Small amount of fraying was debrided. Biceps tendon appeared normal. No obvious thickening or longitudinal fraying. No subluxation of the biceps, biceps root was normal. Rest of the labrum appeared normal. There was some small undersurface fraying of the rotator cuff, less than 20%. I attempted to debride this but due to her body habitus I was unable to get the shaver into the proper position. Arthroscopy pictures were taken throughout the case and saved onto the system. Scope was withdrawn placed in subacromial space. Lateral portal established again through it with an inside-out spinal needle localization technique. Shave brought in. There is a high amount of subacromial bursitis. This was thoroughly debrided with the shaving instrument. Pictures taken throughout. Bleeders cauterized with electrocautery. Anterolateral acromion identified. Tissue removed from the undersurface. The coracoacromial ligament taken down. Undersurface of the acromion was flattened using an oval bur by approximately a burs width, 5 mm or so. AC joint was identified, however no obvious large spur on the undersurface of the distal clavicle was noted. The scope was inserted to the lateral portal and final bursectomy made in the posterior aspect of the shoulder. The rotator cuff was probed and no obvious tears were found. Subscapularis was also identified after limited anterior debridement and removal of the rotator interval and appeared normal, a taught rolled edge with a normal appearance. No superficial fraying or tears. The scope was withdrawn. Portal sites thoroughly irrigated. The portal sites were closed using interrupted #3-0 Monocryl sutures. Wet and dry dressing used to clean the shoulder. Steri-Strips applied as well as 4 x 8 gauze, ABD dressing, Adaptic and cloth tape over top. The patient was put into a sling. The patient was woken up from general anesthetic, transferred off the operating room table and taken to the postanesthetic care unit in stable condition. All sponge counts, needle counts and instruments were correct. Estimated blood loss 50 mL. No complications. PLAN: The patient it to be discharged home hopefully according to day surgery criteria. They did express some reservations about this preoperatively, but hopefully given the block and good pain control and limited surgery time and thorough debridement, they will feel comfortable enough to go home today or at the very latest tomorrow morning depending on the comfort level. They will need a Medicaid taxi to get home. I will see her in the office in two weeks time and I like them to change the bandage in two days at home and keep the wound clean and dry, no soaking. Jessika Santos, the junior assistant manager, was instrumental in helping position the patient, given her BMI, as well as achieve visualization and passing instruments back and forth. RITA
[2019-02-20] MEDS: ONDANSETRON 4MG/2ML VIAL (J2405) IV PRN ×2 (15:22→23:04)
[2019-02-20 16:30] VITALS: BP 112/69
[2019-02-20 17:00] VITALS: BP 111/66
[2019-02-20 20:13] VITALS: BP 105/67
[2019-02-20 21:09] VITALS: BP 117/82
[2019-02-21 02:00] VITALS: BP 110/72
[2019-02-21] MEDS: LR 1,000 ML IV SCH (02:46)
[2019-02-21] MEDS: ONDANSETRON 4MG/2ML VIAL (J2405) IV PRN ×3 (04:17→19:04)
[2019-02-21] MEDS: PERCOCET 5MG/325MG TAB PO PRN ×4 (04:17→23:39)
[2019-02-21 05:57] VITALS: BP 103/62
[2019-02-21] MEDS: MORPHINE 2 MG/ML 1ML VIAL (J2270) IV PRN ×4 (07:45→22:03)
[2019-02-21 10:48] VITALS: BP 116/55
[2019-02-21 14:19] VITALS: BP 117/56
[2019-02-21 20:37] VITALS: BP 100/63
[2019-02-22 02:00] VITALS: BP 110/64
[2019-02-22] MEDS: MORPHINE 2 MG/ML 1ML VIAL (J2270) IV PRN (02:17)
[2019-02-22] MEDS: ONDANSETRON 4MG/2ML VIAL (J2405) IV PRN ×4 (02:33→19:44)
[2019-02-22 06:39] VITALS: BP 118/55
[2019-02-22] MEDS: PERCOCET 5MG/325MG TAB PO PRN ×4 (06:46→19:44)
[2019-02-22] MEDS: MIRALAX *UNIT DOSE* 17GM PACKET PO SCH (09:00)
[2019-02-22 13:30] VITALS: BP 112/55
[2019-02-22 20:31] VITALS: BP 127/74
[2019-02-23] MEDS: ONDANSETRON 4MG/2ML VIAL (J2405) IV PRN ×2 (00:08→04:15)
[2019-02-23] MEDS: PERCOCET 5MG/325MG TAB PO PRN ×3 (00:09→10:05)
[2019-02-23 05:22] VITALS: BP 139/76
[2019-02-23] MEDS: MIRALAX *UNIT DOSE* 17GM PACKET PO SCH (09:00)
--- NOTE | 2019-02-26 14:35 | DSES ---
DATE OF ADMISSION: 02/21/2019 DATE OF DISCHARGE: 02/23/2019 ATTENDING PHYSICIAN: Dr. Arnaud Kelly. ADMISSION DIAGNOSIS: Left shoulder impingement syndrome. DISCHARGE DIAGNOSIS: Left shoulder impingement syndrome, status post total from male decompression and debridement. HISTORY: 53-year-old female patient with progressively worsening left shoulder impingement syndrome that failed to improve with conservative management. She was admitted for elective left shoulder arthroscopy with Dr. Kelly HOSPITAL COURSE: The patient was admitted on the day of surgery and underwent left shoulder arthroscopy and subacromial decompression which was uneventful. She did well in the postop period and hospital course was without complications. She was up with physical therapy per their protocol and her pain was controlled on the day of discharge. She will resume her preoperative medications and diet along with oral pain medications for pain control. She was given instructions to include but not limited to wound monitoring and activity limitations. She will followup with Dr. Arnaud Kelly in 10-14 days for surgical followup. Please refer to the medical record for further details.
[2019-03-21] MEDS ORDERED: OXYC1TAB23 PO (15:57)
[2019-03-21] MEDS ORDERED: GABA-843 PO (15:57)
[2019-03-21] MEDS ORDERED: BACT800T5 PO (20:58)
[2019-03-21] MEDS ORDERED: ONDA4TAB6 PO (20:58)
== END 2019-02-23 10:10 | disposition home or self-care (01) | DRG 315 ==
LOC: M SDC 05:26 → M MS5PR 13:50 → M SDC 02-21 08:30 → M MS5PR 02-21 08:31
PROVIDERS: ADMIT Orthopaedic Surgery Sports Medicine; ATTEND Orthopaedic Surgery Sports Medicine
PROC: 0MD24ZZ Extraction of Left Shoulder Bursa and Ligament, Percutaneous Endoscopic Approach (ICD-10-PCS; principal; 2019-02-21)
PROC: 0MN24ZZ Release Left Shoulder Bursa and Ligament, Percutaneous Endoscopic Approach (ICD-10-PCS; 2019-02-21)
DX: M75.42 Impingement syndrome of left shoulder (principal); Z88.0 Allergy status to penicillin; Z79.899 Other long term (current) drug therapy; Z88.1 Allergy status to other antibiotic agents; Z88.8 Allergy status to other drugs, medicaments and biological substances

== ENCOUNTER 2019-02-26 10:11 | Observation (INO) | payer OTHER ==
[~2019-02-26] VITALS: Ht 157.5 cm; Wt 115.8 kg
[~2019-02-26 10:11] MED LIST changes: +MECL-68 PO; -MECL1TAB31 PO; +OMEP-172 PO; -OMEP1CAP73 PO; -ONDA-83 PO; +ONDA4TAB5 PO
[2019-02-26] MEDS ORDERED: OXYC1TAB23 PO (10:19)
[2019-02-26] MEDS ORDERED: ONDANSETRON 4 MG ORAL DISINTEGRATING TAB (Q0162 PER 1MG) PO ONE (10:45)
[2019-02-26 11:06] LABS: BASO % 0.4 % (0.0-1.0); EOS # 0.2 10^3/uL (0.0-0.5); HEMATOCRIT 39.1 % (36.0-47.0); HEMOGLOBIN 12.6 g/dl (12.0-15.5); LYMPH # 1.5 10^3/uL (1.5-5.0); LYMPH % 33.8 % (24.0-44.0); MEAN CORPUSCULAR HGB CONC 32.2 g/dl (32.0-36.5); MEAN CORPUSCULAR VOLUME 93.1 fl (80.0-96.0); MONO # 0.4 10^3/uL (0.0-0.8); MONO % 9.1 % (0.0-5.0); NEUTROPHILS # 2.4 10^3/uL (1.5-8.5); NEUTROPHILS % 52.3 % (36.0-66.0); PLATELET COUNT, AUTOMATED 169 10^3/uL (150-450); WHITE BLOOD COUNT 4.5 10^3/uL (4.0-10.0)
[2019-02-26 11:24] LABS: ERYTHROCYTE SEDIMENTATION RATE 16 mm/hr (0-30)
[2019-02-26 11:34] LABS: BLOOD UREA NITROGEN 10 MG/DL (7-18); CALCIUM LEVEL 8.4 MG/DL (8.5-10.1); CARBON DIOXIDE LEVEL 33 MEQ/L (21-32); CHLORIDE LEVEL 108 MEQ/L (98-107); CREATININE FOR GFR 0.87 MG/DL (0.55-1.30); GLOMERULAR FILTRATION RATE > 60.0 (>51); GLUCOSE, FASTING 100 MG/DL (70-100); SODIUM LEVEL 143 MEQ/L (136-145)
[2019-02-26] MEDS ORDERED: MORPHINE 2 MG/ML 1ML VIAL (J2270) IV ONE (11:45)
[2019-02-26] MEDS ORDERED: ISOVUE-370 76% 100ML VIAL (Q9967) As Ordered ONE ×2 (12:02→13:06)
--- NOTE | 2019-02-26 14:39 | REP ---
CT ANGIOGRAM CHEST: TECHNIQUE: Axial contrast enhanced images from the thoracic inlet to the upper abdomen using 100 mL Isovue 370 intravenous contrast material with multiplanar reformations. Study is limited due to patient motion. No definite pulmonary embolism is seen. There is no thoracic aortic aneurysm or dissection. Heart is not significantly enlarged. There is no pleural or pericardial effusion. There is no mediastinal, hilar, or chest wall lymphadenopathy. No infiltrate is seen in either lung . There are two calcified granulomas in the right lung and one in the left lung. Patient has had a prior cholecystectomy. There is a small hiatal hernia. IMPRESSION: No CT evidence of pulmonary embolism although this study is limited due to patient motion. Small hiatal hernia. No infiltrate seen. Electronically Signed by Jose Martinez MD 02/26/2019 08:01 P
--- NOTE | 2019-02-26 15:43 | ECGEPIP ---
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
[2019-02-26] MEDS ORDERED: PROAAER10 INH (16:55)
--- NOTE | 2019-02-26 17:04 | HPEPDOC ---
[facility] Medical History & Physical Date of Admission Feb 26, 2019 Date of Service: Feb 26, 2019 History and Physical CHIEF COMPLAINT: Left shoulder pain HISTORY OF PRESENT ILLNESS: is a 53-year-old female with past medical history of Left shoulder impingement syndrome, which failed the conservative management , and she underwent left shoulder arthroscopy and subacromial decompression with Dr. Felton was uneventful. On 02/22/19. She states since she has been discharged. She has had extreme pain in the left shoulder and for that reason she came to the ER. The patient denied any fever, any rigors, any chills. The patient denied any erythema on the shoulder. The patient states that there is restriction in the range of motion because of pain. As the pain was on the left shoulder, CTA was done to rule out any pulmonary embolism, which did not show any abnormality and was negative. An upper extremity venous Doppler was also done which is currently pending. The patient is able to raise her arm 90 to the ground but is not been able to go further. The restriction is mostly because of pain. No crepitus is heard or felt on examination. The patient denies any loss of consciousness, any palpitations, any fevers. States that she has not been able to sleep well because of this pain. DISCHARGE DIAGNOSIS: Left shoulder impingement syndrome, status post total from male decompression and debridement. REVIEW OF SYSTEMS: 12 point review of systems negative except as listed in HPI PAST MEDICAL/SURGICAL HISTORY: 1 CAD s/p stents / Dyslipidemia 2 Paroxysmal Afib on NOAC 3 Pseudoseizures 4. Chronic lower back pain 5. History of Arthur's palsy 6 .Morbid obesity 7. Bipolar disorder/seasonal affective disorder/borderline personality disorder 8. Fibromyalgia 9. Migraine BEAULIEU 10. Status post KADIE 11. Status post tubal ligation 12. Status post cholecystectomy SOCIAL HISTORY: Quit smoking and drinking. FAMILY HISTORY: Bipolar disorder Objective heart failure ALLERGIES: Please see below. HOME MEDICATIONS: Please see below. PHYSICAL EXAMINATION: VITAL SIGNS: See below GENERAL APPEARANCE: Obese, well-developed, not in apparent distress HEENT: No cephalic, atraumatic. Mucous members moist and pink, neck short CARDIOVASCULAR: Regular rate and rhythm. No murmurs, rubs or gallops, radial pulses difficult to palpate LUNGS: Equal air entry bilaterally, lungs clear to auscultation on room air ABDOMEN: Bowel sounds hypoactive, abdomen soft and nontender on palpation MUSCULOSKELETAL: Range of motion intact in 3 extremities extremities except for the left arm EXTREMITIES: The patient has arthroscopic port site dressing, which are in place. There is no erythema around the sites. There is no erythema on the skin. No signs of cellulitis. Range of motion is restricted on the left shoulder. Hand certified hyperbaric technician on the left side is normal. Reflexes are normal. NEUROLOGICAL: Cranial nerves II-12 grossly intact, speech not dysarthric PSYCHIATRIC: Alert and oriented to person, place and time, able to understand and follow commands LABORATORY DATA: Reviewed IMAGING: Reviewed MICROBIOLOGY: Please see below. Assessment and plan Ms. Jones is a 53-year-old female the past medical history of CAD, chronic lower back pain, morbid obesity, and paroxysmal atrial fibrillation who will be admitted for left shoulder pain. 1. Left shoulder pain. Left shoulder impingement syndrome, which failed the conservative management , and she underwent left shoulder arthroscopy and subacr omial decompression with Dr. Kelly which was uneventful On 02/22/19. The patient was discharged on Percocet 07/12/2024 every 4 hours and states that even taking 8 tablets in a day. She has not been feeling well. Is requesting Dilaudid. States that she is allergic to, gabapentin and Lyrica. Will put her on Narco 5 mg every 4 when necessary and morphine 1 mg every 2 when necessary and Tylenol 500 every 6 when necessary. Will get left shoulder x-ray 2. Paroxysmal A. fib. The patient has been rate controlled and currently is in sinus rhythm. We will restart home medications for rate control and continue anti-cognition. 3. Chronic CAD s/p stents / Dyslipidemia: continue home meds. 4. Fibromyalgia / Chronic lower back pain: continue home meds. 5 .Bipolar disorder/seasonal affective disorder/borderline personality disorder: continue home meds. 6. Morbidy Obesity BMI 44.8 DVT prophylaxis with apixaban Pain control with morphine and [place] Vital Signs Vital Signs Date Time Temp Pulse Resp B/P (MAP) Pulse Ox O2 Delivery O2 Flow Rate FiO2 02/26/19 13:15 97.0 80 18 141/72 98 Room Air Laboratory Data Labs 24H Laboratory Tests 2 02/26/19 10:51: Immature Granulocyte % (Auto) 0.4, Neutrophils (%) (Auto) 52.3, Lymphocytes (%) (Auto) 33.8, Monocytes (%) (Auto) 9.1H, Eosinophils (%) (Auto) 4.0H, Basophils (%) (Auto) 0.4, Neutrophils # (Auto) 2.4, Lymphocytes # (Auto) 1.5, Monocytes # (Auto) 0.4, Eosinophils # (Auto) 0.2, Basophils # (Auto) 0.0, Nucleated Red Blood Cells % (auto) 0.0, Erythrocyte Sedimentation Rate 16, D-Dimer, Quantitative 1214.39H, Anion Gap 2L, Glomerular Filtration Rate > 60.0, Calcium Level 8.4L, C-Reactive Protein, Quantitative 1.60H CBC/BMP Laboratory Tests 02/26/19 10:51 Home Medications Scheduled Apixaban (Eliquis) 5 Mg Tablet, 5 MG PO BID Famotidine (Famotidine) 20 Mg Tablet, 20 MG PO DAILY Metoprolol Tartrate (Metoprolol Tartrate) 25 Mg Tablet, 25 MG PO BID Pantoprazole Sodium (Pantoprazole Sodium) 40 Mg Tablet.dr, 40 MG PO BID Sucralfate (Sucralfate) 1 Gm Tablet, 1 GM PO BID Scheduled PRN Albuterol Sulfate (Proair Hfa) 8.5 Gm Hfa.aer.ad, 2 PUFF INH Q4-6HP PRN for wheezing Miscellaneous Medications Oxycodone HCl/Acetaminophen (Oxycodone-Acetaminophen 5-325) 1 Each Tablet Allergies Coded Allergies: pregabalin (Verified Allergy, Severe, Angioedema, 02/26/19) clindamycin (Verified Allergy, Intermediate, vomiting swelling, 02/26/19) diclofenac (Verified Allergy, Intermediate, swelling all over body, 02/26/19) sorbitan esters (Verified Allergy, Unknown, from zipsoragitation, 02/26/19) from zipsoragitation amoxicillin (Verified Adverse Reaction, Intermediate, VOMITING, 02/26/19) bupropion (Verified Adverse Reaction, Intermediate, increased tremors, 02/26/19) Wellbutin clavulanic acid (Verified Adverse Reaction, Intermediate, VOMITING, 02/26/19) cyclobenzaprine (Verified Adverse Reaction, Intermediate, agitation, 02/26/19) doxycycline (Verified Adverse Reaction, Mild, vomiting, 02/26/19) sulfamethoxazole (Verified Adverse Reaction, Mild, vomiting, 02/26/19) W/trimethopri from bactrim trimethoprim (Verified Adverse Reaction, Mild, VOMITING, 02/26/19) A-FIB/CHADSVASC A-FIB History Current/History of A-Fib/PAF?: Yes Current PO Anticoag Therapy: Yes HOLLY GRANADOS MD Feb 26, 2019 17:04
[2019-02-26] MEDS ORDERED: MOM 30ML SUSPENSION UDC PO PRN (17:15)
[2019-02-26] MEDS ORDERED: ACETAMINOPHEN TAB 650MG DOSE (2X325MG) PO PRN (17:15)
[2019-02-26] MEDS: PERCOCET 5MG/325MG TAB PO PRN (18:26)
[2019-02-26] MEDS: MORPHINE 2 MG/ML 1ML VIAL (J2270) IV PRN (18:53)
--- NOTE | 2019-02-26 19:52 | REP ---
LEFT SHOULDER, THREE VIEWS: There is no evidence of an acute fracture, dislocation or intrinsic bone disease. IMPRESSION: No fracture or dislocation. Electronically Signed by Jose Martinez MD 02/26/2019 08:07 P
[2019-02-26] MEDS: PANTOPRAZOLE 40MG TAB (PROTONIX) PO SCH (20:46)
[2019-02-26] MEDS: APIXABAN 5 MG TAB (ELIQUIS) PO SCH (20:46)
[2019-02-26] MEDS: DOCUSATE SODIUM 100 MG CAP PO SCH (20:46)
[2019-02-26] MEDS: SUCRALFATE 1 GM TAB PO SCH (20:46)
[2019-02-26] MEDS: METOPROLOL TART 25 MG TABLET PO SCH (20:46)
[2019-02-26] MEDS: FAMOTIDINE 20 MG TAB PO SCH (20:47)
[2019-02-26 21:18] VITALS: BP 146/73
[2019-02-27] MEDS: MORPHINE 2 MG/ML 1ML VIAL (J2270) IV PRN ×2 (00:36→05:19)
[2019-02-27] MEDS: PERCOCET 5MG/325MG TAB PO PRN ×2 (02:41→09:44)
[2019-02-27] MEDS ORDERED: ONDANSETRON 4MG/2ML VIAL (J2405) IV PRN (05:00)
[2019-02-27 06:24] LABS: HEMATOCRIT 39.3 % (36.0-47.0); HEMOGLOBIN 12.3 g/dl (12.0-15.5); MEAN CORPUSCULAR HEMOGLOBIN 29.9 pg (27.0-33.0); MEAN CORPUSCULAR HGB CONC 31.3 g/dl (32.0-36.5); MEAN CORPUSCULAR VOLUME 95.4 fl (80.0-96.0); PLATELET COUNT, AUTOMATED 174 10^3/uL (150-450); RED BLOOD COUNT 4.12 10^6/uL (4.00-5.40); WHITE BLOOD COUNT 4.4 10^3/uL (4.0-10.0)
[2019-02-27 06:58] VITALS: BP 110/70
[2019-02-27 07:00] LABS: ALBUMIN 2.6 GM/DL (3.2-5.2); ALT/SGPT 33 U/L (12-78); BILIRUBIN,TOTAL 0.4 MG/DL (0.2-1.0); BLOOD UREA NITROGEN 11 MG/DL (7-18); CALCIUM LEVEL 8.5 MG/DL (8.5-10.1); CARBON DIOXIDE LEVEL 27 MEQ/L (21-32); CHLORIDE LEVEL 109 MEQ/L (98-107); CREATININE FOR GFR 0.84 MG/DL (0.55-1.30); GLOMERULAR FILTRATION RATE > 60.0 (>51); GLUCOSE, FASTING 89 MG/DL (70-100); POTASSIUM SERUM 4.2 MEQ/L (3.5-5.1); SODIUM LEVEL 141 MEQ/L (136-145); TOTAL PROTEIN 5.7 GM/DL (6.4-8.2)
--- NOTE | 2019-02-27 07:38 | REP ---
Left upper extremity duplex venous ultrasound: History: Pain in the shoulder. Left shoulder surgery February 20, 2019. Rule out DVT. Findings: The patient was unable to tolerate compression and subclavian vein area. Color Doppler flow is normal here. The cephalic vein was not seen in the upper arm probably due to soft tissue edema which was noted. The brachial, basilic, and axillary and internal jugular vein segments are observed and are anechoic and compressible with normal color Doppler. There is no evidence of left upper extremity venous thrombosis. Impression: No evidence of left upper extremity venous thrombosis. Soft tissue edema obscures the cephalic vein. Electronically Signed by Dominic Chao MD 02/26/2019 02:32 P
[2019-02-27 09:40] VITALS: BP 110/70
[2019-02-27] MEDS: SUCRALFATE 1 GM TAB PO SCH (09:40)
[2019-02-27] MEDS: FAMOTIDINE 20 MG TAB PO SCH (09:40)
[2019-02-27] MEDS: DOCUSATE SODIUM 100 MG CAP PO SCH (09:40)
[2019-02-27] MEDS: METOPROLOL TART 25 MG TABLET PO SCH (09:40)
[2019-02-27] MEDS: APIXABAN 5 MG TAB (ELIQUIS) PO SCH (09:40)
[2019-02-27] MEDS: PANTOPRAZOLE 40MG TAB (PROTONIX) PO SCH (09:40)
[2019-02-27] MEDS ORDERED: OXYC1TAB15 PO (11:12)
--- NOTE | 2019-02-27 11:19 | DS.PDOC ---
Discharge Summary General Date of Admission Feb 26, 2019 at 10:12 Date of Discharge 02/27/19 Discharge Summary CHIEF COMPLAINT: Left shoulder pain DISCHARGE DIAGNOSIS: Left shoulder impingement syndrome, status post decompression and debridement, now presenting with shoulder pain. HISTORY OF PRESENT ILLNESS: is a 53-year-old female with past medical history of Left shoulder impingement syndrome, which failed the conservative management , and she underwent left shoulder arthroscopy and subacromial decompression with Dr. Kelly which was uneventful. On 02/22/19. She states since she has been discharged. She has had extreme pain in the left shoulder and for that reason she came to the ER. The patient denied any fever, any rigors, any chills. The patient denied any erythema on the shoulder. The patient states that there is restriction in the range of motion because of pain. As the pain was on the left shoulder, CTA was done to rule out any pulmonary embolism, which did not show any abnormality and was negative. An upper extremity venous Doppler was also done which was negative as well. The patient got a shoulder x-ray which did not show any pathology or any fusion. Patient will be see counts were normal as well as the site of pain was not erythematous looking healthy. The patient is able to raise her arm 90 parallel to the ground again this morning. The restriction is mostly because of pain. No crepitus is heard or felt on examination. The patient denies any loss of consciousness, any palpitations, any fevers. States that she has not been able to sleep well because of this pain. As any other acute issue has been ruled out and the patient just needs to management has been advised to follow up with pain clinic. The patient is medically cleared for discharge and has been advised to go and follow up with orthopedic in one week in pain clinic in one week. He' ll be continued on all home medications including medications for A. fib. PHYSICAL EXAMINATION: VITAL SIGNS: See below GENERAL APPEARANCE: Obese, well-developed, not in apparent distress HEENT: No cephalic, atraumatic. Mucous members moist and pink, neck short CARDIOVASCULAR: Regular rate and rhythm. No murmurs, rubs or gallops, radial pulses difficult to palpate LUNGS: Equal air entry bilaterally, lungs clear to auscultation on room air ABDOMEN: Bowel sounds hypoactive, abdomen soft and nontender on palpation MUSCULOSKELETAL: Range of motion intact in 3 extremities extremities except for the left arm EXTREMITIES: The patient has arthroscopic port site dressing, which are in pl ai. There is no erythema around the sites. There is no erythema on the skin. No signs of cellulitis. Range of motion is restricted on the left shoulder. Hand bee worker on the left side is normal. Reflexes are normal. NEUROLOGICAL: Cranial nerves II-12 grossly intact, speech not dysarthric PSYCHIATRIC: Alert and oriented to person, place and time, able to understand and follow commands Medications. As per discharge reconciliation medication list, Percocet 7.5 every 6 hours when necessary added and in total 20 tablets given Activity as tolerated Diet. 2 g sodium diet Follow-up appointments. PCP in 1 week, Ortho [facility] in 1 week and pain clinic in one week Condition on discharge. Patient is medically optimized for discharge Discharge disposition: Home Total time spent on this discharge including coordination of care, review of chart documentation and actual contact is around 35 minutes Vital Signs/I&Os Vital Signs Date Time Temp Pulse Resp B/P (MAP) Pulse Ox O2 Delivery O2 Flow Rate FiO2 02/27/19 10:14 18 Room Air 02/27/19 09:40 86 110/70 02/27/19 06:58 97.8 95 I&O- Last 24 Hours up to 6 AM0 02/27/19 05:59 Intake Total 900 ml Output Total 0 ml Balance 900 ml Laboratory Data Labs 24H Laboratory Tests 2 02/27/19 06:06: Nucleated Red Blood Cells % (auto) 0.0, Anion Gap 5L, Glomerular Filtration Rate > 60.0, Calcium Level 8.5, Total Bilirubin 0.4, Aspartate Amino Transf (AST/SGOT) 19, Alanine Aminotransferase (ALT/SGPT) 33, Alkaline Phosphatase 73, Total Protein 5.7L, Albumin 2.6L, Albumin/Globulin Ratio 0.84L CBC/BMP Laboratory Tests 02/27/19 06:06 Discharge Medications Scheduled Apixaban (Eliquis) 5 Mg Tablet, 5 MG PO BID, (Reported) Famotidine (Famotidine) 20 Mg Tablet, 20 MG PO BID, (Reported) Metoprolol Tartrate (Metoprolol Tartrate) 25 Mg Tablet, 25 MG PO BID, (Reported) Pantoprazole Sodium (Pantoprazole Sodium) 40 Mg Tablet.dr, 40 MG PO BID, (Reported) Sucralfate (Sucralfate) 1 Gm Tablet, 1 GM PO BID, (Reported) Scheduled PRN Albuterol Sulfate (Proair Hfa) 8.5 Gm Hfa.aer.ad, 2 PUFF INH Q4H PRN for SHORTNESS OF BREATH, (Reported) Oxycodone HCl/Acetaminophen (Oxycodon-Acetaminophen 7.5-325) 1 Each Tablet, 1 TAB PO QIDP PRN for pain Allergies Coded Allergies: pregabalin (Verified Allergy, Severe, Angioedema, 02/26/19) clindamycin (Verified Allergy, Intermediate, vomiting swelling, 02/26/19) diclofenac (Verified Allergy, Intermediate, swelling all over body, 02/26/19) sorbitan esters (Verified Allergy, Unknown, from zipsoragitation, 02/26/19) from zipsoragitation amoxicillin (Verified Adverse Reaction, Intermediate, VOMITING, 02/26/19) bupropion (Verified Adverse Reaction, Intermediate, increased tremors, 02/26/19) Wellbutin clavulanic acid (Verified Adverse Reaction, Intermediate, VOMITING, 02/26/19) cyclobenzaprine (Verified Adverse Reaction, Intermediate, agitation, 02/26/19) doxycycline (Verified Adverse Reaction, Mild, vomiting, 02/26/19) sulfamethoxazole (Verified Adverse Reaction, Mild, vomiting, 02/26/19) W/trimethopri from bactrim trimethoprim (Verified Adverse Reaction, Mild, VOMITING, 02/26/19) HOLLY GRANADOS MD Feb 27, 2019 11:19
== END 2019-02-27 13:20 | disposition home or self-care (01) ==
LOC: M ED 10:11 → M ED INP 10:12 → M MS5PR 18:35
PROVIDERS: ADMIT Internal Medicine; ATTEND Internal Medicine
DX: G89.18 Other acute postprocedural pain (principal); M25.512 Pain in left shoulder; M75.42 Impingement syndrome of left shoulder; I48.91 Unspecified atrial fibrillation; I25.2 Old myocardial infarction; I50.9 Heart failure, unspecified; I11.0 Hypertensive heart disease with heart failure; J44.9 Chronic obstructive pulmonary disease, unspecified; Z95.5 Presence of coronary angioplasty implant and graft; E78.5 Hyperlipidemia, unspecified; M54.5 Low back pain; F44.5 Conversion disorder with seizures or convulsions; E66.01 Morbid (severe) obesity due to excess calories; Z68.41 Body mass index [BMI] 40.0-44.9, adult; F41.9 Anxiety disorder, unspecified; F60.3 Borderline personality disorder; F34.89 Other specified persistent mood disorders; M79.7 Fibromyalgia; G43.909 Migraine, unspecified, not intractable, without status migrainosus; Z79.899 Other long term (current) drug therapy; Z79.01 Long term (current) use of anticoagulants; Z88.8 Allergy status to other drugs, medicaments and biological substances; Z88.1 Allergy status to other antibiotic agents; Z88.2 Allergy status to sulfonamides; Z87.891 Personal history of nicotine dependence
CPT/HCPCS: 36415; 71275; 73030; 80048; 80053; 85025; 85027; 85379; 85652; 86140; 93005; 93971; 96374; 96375; 96376; 99284; J2270; J2405; Q0162; Q9967

== ENCOUNTER 2019-03-18 19:16 | Emergency (ER) | payer OTHER ==
[~2019-03-18] VITALS: Ht 157.5 cm; Wt 113.6 kg
[~2019-03-18 19:16] MED LIST changes: -MECL-68 PO; +MECL1TAB31 PO; -OMEP-172 PO; +OMEP1CAP73 PO; +ONDA-83 PO; -ONDA4TAB5 PO; +OXYC1TAB15 PO
--- NOTE | 2019-03-18 19:58 | REP ---
Portable chest x-ray: Single view. History: Chest pain. Comparison chest x-ray: February 04, 2019. Findings: There is a stable granuloma in the left base. A loop recorder is visualized over the heart. Heart is not enlarged. Pleural angles are sharp. Lung thomason are otherwise clear. The pulmonary vasculature is not increased. No bony abnormality is appreciated. Impression: Granuloma left base. Loop recorder seen. Otherwise no acute disease. Electronically Signed by Dominic Chao MD 03/18/2019 07:50 P
--- NOTE | 2019-03-18 20:29 | REP ---
Clinical: Left shoulder pain. Technique: Internal rotation, external rotation, and Y view of the left shoulder. Findings: Acromioclavicular and glenohumeral joints appear intact and normal. Subacromial space is normal. Surrounding soft tissues are unremarkable. Impression: Normal left shoulder radiographs. Electronically Signed by Fletcher Serna MD 03/18/2019 08:20 P
[2019-03-18] MEDS ORDERED: KETOROLAC 30 MG/ML VIAL (J1885) IV ONE (21:00)
[2019-03-18 21:09] LABS: BASO % 0.2 % (0.0-1.0); EOS # 0.1 10^3/uL (0.0-0.5); EOS % 1.6 % (0.0-3.0); HEMATOCRIT 43.2 % (36.0-47.0); HEMOGLOBIN 13.9 g/dl (12.0-15.5); LYMPH # 1.9 10^3/uL (1.5-5.0); LYMPH % 43.5 % (24.0-44.0); MEAN CORPUSCULAR HEMOGLOBIN 29.4 pg (27.0-33.0); MEAN CORPUSCULAR HGB CONC 32.2 g/dl (32.0-36.5); MEAN CORPUSCULAR VOLUME 91.5 fl (80.0-96.0); MONO # 0.4 10^3/uL (0.0-0.8); MONO % 9.5 % (0.0-5.0); PLATELET COUNT, AUTOMATED 145 10^3/uL (150-450); RED BLOOD COUNT 4.72 10^6/uL (4.00-5.40); WHITE BLOOD COUNT 4.4 10^3/uL (4.0-10.0)
[2019-03-18] MEDS ORDERED: PERCOCET 5MG/325MG TAB PO ONE (21:15)
[2019-03-18 21:52] LABS: ALBUMIN 3.2 GM/DL (3.2-5.2); ALT/SGPT 50 U/L (12-78); BILIRUBIN,DIRECT < 0.1 MG/DL (0.0-0.2); BILIRUBIN,TOTAL 0.4 MG/DL (0.2-1.0); BLOOD UREA NITROGEN 17 MG/DL (7-18); CALCIUM LEVEL 9.4 MG/DL (8.5-10.1); CARBON DIOXIDE LEVEL 24 MEQ/L (21-32); CHLORIDE LEVEL 109 MEQ/L (98-107); CK-MB VALUE MASS < 1.0 NG/ML (<3.6); CPK CREATINE PHOSPHOKINASE 132 U/L (26-192); GLOMERULAR FILTRATION RATE > 60.0 (>51); GLUCOSE, FASTING 84 MG/DL (70-100); MB/CK RELATIVE INDEX 0.76 (< OR =4); POTASSIUM SERUM 4.3 MEQ/L (3.5-5.1); SODIUM LEVEL 142 MEQ/L (136-145); TOTAL PROTEIN 6.5 GM/DL (6.4-8.2); TROPONIN I < 0.02 NG/ML (< 0.10)
[2019-03-18] MEDS ORDERED: NORCO 5/325MG TABLET (BULK FOR ED) PO ONE (22:30)
[2019-03-18 22:36] VITALS: BP 120/58
--- NOTE | 2019-03-19 08:04 | ECGEPIP ---
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
[2019-03-21] MEDS ORDERED: OXYC1TAB23 PO (15:57)
[2019-03-21] MEDS ORDERED: GABA-843 PO (15:57)
[2019-03-21] MEDS ORDERED: ONDA4TAB6 PO (20:58)
[2019-03-21] MEDS ORDERED: BACT800T5 PO (20:58)
== END 2019-03-18 22:37 | disposition home or self-care (01) ==
LOC: M ED 19:16
DX: M25.512 Pain in left shoulder (principal); Z79.899 Other long term (current) drug therapy; Z88.0 Allergy status to penicillin; Z88.2 Allergy status to sulfonamides; Z88.8 Allergy status to other drugs, medicaments and biological substances

== ENCOUNTER → 2019-03-19 | Outpatient (CLI) | payer OTHER ==
[~2019-03-19] MED LIST changes: +BUPIVACAINE HCL 0.25% 30 ML VIAL As Ordered ONE; +GABA-843 PO; +ONDANSETRON 4 MG ORAL DISINTEGRATING TAB (Q0162 PER 1MG) As Ordered ONE; +diazePAM 5 MG TAB As Ordered ONE; +diphenhydrAMINE 25 MG CAP As Ordered ONE; +oxyCODONE 5MG TAB As Ordered ONE
--- NOTE | 2019-03-26 23:39 | ECWPNPC ---
PATIENT NAME: SMITH VIVEROS : 1965 GENDER: FEMALE VISIT DATE: 03/19/2019 DISCHARGE DATE: 03/19/19 170 VISIT LOCKED DATE TIME: PHYSICIAN: ARELIS MILLER MD RESOURCE: ARELIS MILLER MD REASON FOR APPOINTMENT 1. TPI BILATERAL LOW BACK--NO STEROID HISTORY OF PRESENT ILLNESS HISTORY OF PRESENT ILLNESS: PAIN THE PATIENT DESCRIBES THE PAIN... FALL RISK SCREENING: SCREENING :NO FALLS REPORTED IN THE LAST YEAR CURRENT MEDICATIONS TAKING NITROGLYCERIN 0.4 MG TABLET SUBLINGUAL DIRECTED SUBLINGUAL EVERY 5 MIN: MDD 3 TABLETS, NOTES: MORE THAN 1 MONTH TAKING SUCRALFATE 1 GM TABLET 1 TABLET ORALLY TWICE A DAY, NOTES: 03-19-19799 TAKING ELIQUIS 5 MG TABLET 1 TAB(S) ORALLY TWICE DAILY, NOTES: [id number] TAKING PROTONIX 40 MG TABLET DELAYED RELEASE 1 TABLET ORALLY BID, NOTES: 03-19-19799 TAKING METOPROLOL SUCCINATE 25 MG CAPSULE ER 24 HOUR SPRINKLE 1 CAPSULE ORALLY ONCE A DAY, NOTES: 03-19-19799 TAKING BACLOFEN 10 MG TABLET 0.5 TABLET TID X 5 DAYS THEN1 TABLET WITH FOOD OR MILK ORALLY THREE TIMES A DAY, NOTES: NONE RECENTLY TAKING PERCOCET 5-325 MG TABLET 1 TABLET NEEDED ORALLY EVERY 6 HRS, NOTES: 03-19-19799 NOT-TAKING ROBAXIN 500 MG TABLET 1.5 TABLETS ORALLY EVERY 4 HRS NOT-TAKING PAROXETINE HCL 30 MG TABLET 1 TABLET IN THE MORNING ORALLY ONCE A DAY MEDICATION LIST REVIEWED AND RECONCILED WITH THE PATIENT PAST MEDICAL HISTORY FIBROMYALGIA DX 4 YEARS AGO, BEING FOLLOWED AT PAIN CLINIC MIGRAINE HEADACHE STRESS INCONTINENCE DEPRESSION HYPERLIPIDEMIA VITAMIN D DEFICIENCY AFIB GERD INTERMITTENT A FIB STRESS INCONTINENCE, FEMALE CHRONIC PAIN SYNDROME UNSPECIFIED VITAMIN D DEFICIENCY MIGRAINE, UNSPECIFIED WITHOUT MENTION OF INTRACTABLE MIGRAINE WITHOUT MENTION OF STATUS MIGRAINOSUS HYPERTENSION ALLERGIES ZIPSOR: ALLERGY FLEXERIL: AGGITATION - ALLERGY LYRICA: ANAPHYLAXIS - ALLERGY DICLOFENAC POTASSIUM: AGGITATION (ZIPSOR) - ALLERGY BACTRIM: NAUSEA/VOMITING - ALLERGY CYMBALTA: NAUSEA/VOMITING - SIDE EFFECTS AMITRIPTYLINE: AGGITATION - SIDE EFFECTS GABAPENTIN: HALLUCINATIONS - SIDE EFFECTS TIZANIDINE HCL: HIVES - ALLERGY KETOROLAC TROMETHAMINE: STOMACH PAIN - ALLERGY SURGICAL HISTORY TUBAL LIGATION 1988 DISTAL 4TH FINGER REPAIR SECONDARY TO TRAUMATIC INJURY BENIGN TUMOR REMOVAL RIGHT LEG DENTAL SURGERIES CHOLECYSTECTOMY 05/2014 HYSTERECTOMY STILL HAS 1 OVARY BUT NOT SURE WHICH ONE 2012 ABSCESS R GROIN 2014 LOOP RECORDER 10/2018 LEFT SHOULDER REPAIR 02/20/19 FAMILY HISTORY FATHER: , PNEUMONIA, CHF, NEUROPATHY, BLOOD CLOT, DIAGNOSED WITH DIABETES, UNSPECIFIED HEART DISEASE, UNSPECIFIED CEREBRAL ARTERY OCCLUSION WITH CEREBRAL INFARCTION MOTHER: , CANCER, DIABETES, HYPERTENSION, UNSPECIFIED HEART DISEASE, UNSPECIFIED CEREBRAL ARTERY OCCLUSION WITH CEREBRAL INFARCTION, OTHER MALIGNANT NEOPLASM OF UNSPECIFIED SITE SIBLINGS: ALIVE, LUPUS, DIABETES SON(S): ALIVE DAUGHTER(S): ALIVE 2 BROTHER(S) , 5 SISTER(S) . 1 SON(S) , 1 DAUGHTER(S) - HEALTHY. SOCIAL HISTORY GENERAL: TOBACCO USE ARE YOU A:FORMER SMOKER HOW LONG HAS IT BEEN SINCE YOU LAST SMOKED?5-10 YEARS VAPORNO E-CIGARETTEYES HIV / HEP-C SCREENING HIV TEST OFFERED TO PATIENT:YES DATE OFFERED:10/26/2017 TEST ACCEPTED:NO HEP-C TEST OFFERED TO PATIENT:NO REASON:PATIENT DECLINED BROCHURE PROVIDED TO PATIENTNO OTHERS AT HOME: [id number], BROTHER, NEPHEW AND BOYFRIEND. DIET: REGULAR. LANGUAGE MACEDONIAN. DOMESTIC VIOLENCE DO YOU FEEL SAFE IN YOUR ENVIRONMENT?YES NEW PATIENT PAIN DIARY FROM 0-10, WHAT LEVEL IS YOUR PAIN TODAY?10 BMI CARE GOAL FOLLOW-UP ABOVE NORMAL BMI FOLLOW-UPLIFESTYLE EDUCATION REGARDING DIET RECREATIONAL DRUG USE DRUG USE?NO EXERCISE: NO REGULAR EXERCISE. LEARNING BARRIERS / SPECIAL NEEDS CHANGE FROM LAST VISIT?NO BARRIERS TO LEARNING?NO HEARING IMPAIRED?NO VISION IMPAIRED?YES COGNITIVELY IMPAIRED?NO :CORRECTIVE LENSES READINESS TO LEARN?YES LEARNING PREFERENCES?NO LEARNING CAPABILITIES PRESENT?YES EMOTIONAL BARRIERS?YES SPECIAL DEVICES?NO PAIN CLINIC PFS, CLERGY, PUBLIC HEALTH REFERRALS PFS REFERRAL NEEDED?NO CLERGY REFERRAL NEEDED?NO PUBLIC HEALTH REFERRAL NEEDED?NO WAS THE PROVIDER NOTIFIED OF ANY PERTINENT INFO?NO N/A HAS THE PATIENT BEEN EDUCATED REGARDING HIS/HER PLAN OF CARE?YES HAS THE PATIENT BEEN EDUCATED REGARDING PAIN, THE RISK FOR PAIN, THE IMPORTANCE OF EFFECTIVE PAIN MANAGEMENT, AND THE PAIN ASSESSMENT PROCESS?YES LATEX QUESTIONNAIRE LATEX ALLERGY : HAVE YOU EVER DEVELOPED ANY TYPE OF REACTION AFTER HANDLING LATEX PRODUCTS SUCH RUBBER GLOVES, CONDOMS, DIAPHRAGMS, BALLOONS, SOCKS, OR UNDERWEAR?NO LATEX ALLERGY : HAVE YOU EVER DEVELOPED ANY TYPE OF REACTION DURING OR AFTER DENTAL APPOINTMENT, VAGINAL/RECTAL EXAMINATION, SURGICAL PROCEDURE, OR ANY OTHER EXPOSURE?NO DATE ASKED : 10/02/2018 LATEX RISK : HAVE YOU EVER HAD ANY DIFFICULTY BREATHING OR HIVES AFTER EATING OR HANDLING ANY FRUITS, OR VEGETABLES; SUCH KIWI, BANANAS, STONE FRUITS, OR CHESTNUTSNO LATEX RISK : DO YOU HAVE A PREVIOUS PERSONAL HISTORY OF MORE THAN NINE SURGERIES, SPINA BIFIDA, OR REPEATED CATHERIZATIONS? YES - PLEASE INDICATE : > 9 SURGERIES LATEX RISK : ARE YOU FREQUENTLY EXPOSED TO LATEX PRODUCTS IN YOUR OCCUPATION?NO CAFFEINE CAFFEINE USE?YES ADVANCE DIRECTIVE ADVANCE DIRECTIVE DISCUSSED WITH PATIENT:YES PT HAS NO ADVANCED DIRECTIVES, DECLINES HCP INFORMATION AND ASSISTANCE WITH FORM AT THIS TIME. TAOIST NO HINDUISM BELIEFS THAT WOULD IMPACT HEALTH CARE. MARITAL STATUS: .. ALCOHOL SCREENING DID YOU HAVE A DRINK CONTAINING ALCOHOL IN THE PAST YEAR?NO POINTS0 INTERPRETATIONNEGATIVE OCCUPATION: UNEMPLOYED. SEXUAL HX HAD SEX IN THE LAST 12 MONTHS (VAGINAL, ORAL, OR ANAL)?NO HAVE YOU EVER HAD AN STD?NO 08/15/17 1025 REVIEWED WITH PT. AD03/15/2018 1508 REVIEWED WITH PT LAS03/27/18 1116 REVIEWED WITH PT BVREVIEWED WITH PATIENT 06/24/18 1028 JSREVIEWED WITH PATIENT 07/24/18 1257 JSREVIEWED WITH PT 09/30/18 1042 BVPRE PROCEDURE PHONE CALL COMPLETED 03/14/19 1201 NLJ. HOSPITALIZATION/MAJOR DIAGNOSTIC PROCEDURE ABOVE SURGERIES MRSA RIGHT GROIN 2015, C DIFF 2015 CHEST PAIN 10/20/2016 [facility]- IMHU 09/2017 DIVERTICULITIS AND /HYPOTENSION 06/2018 SYNCOPE 09/2018 A-FIB AND LOOP RECORDER 10/2018 REVIEW OF SYSTEMS REVIEWED BY: PROVIDER: . CONSTITUTIONAL: ANY CHANGE IN YOUR MEDICAL CONDITION? NO . CHILLS NO . FEVER NO . INFECTION: DO YOU HAVE NEW INFECTIONS? NO . DO YOU HAVE HISTORY OF MRSA? YES . MUSCULOSKELETAL: ANY NEW PATTERNS OF PAIN OR NUMBNESS? YES - LEFT SHOULDER . GASTROENTEROLOGY: ANY NEW CHANGE IN BOWEL CONTROL? NO . GENITOURINARY: ANY NEW CHANGE IN BLADDER CONTROL? NO . IS THERE A CHANCE YOU COULD BE ? NO . HEMATOLOGY/LYMPH: DO YOU TAKE ANY BLOOD THINNERS? (FOR EXAMPLE- COUMADIN, PLAVIX, AGGRENOX, PLATEL, PRADAXA, OR XARELTO) YES - ELIQUIS . WHEN WAS YOUR LAST DOSE? DATE: TIME:03-16-20191999 . NEUROLOGY: HAVE YOU FALLEN IN THE PAST 12 MONTHS? NO . ANY NEW EXTREMITY NUMBNESS OR WEAKNESS? YES - LEFT ARM . CARDIOLOGY: DO YOU HAVE A PACEMAKER OR DEFIBRILLATOR? NO; DOES HAVE LOOP RECORDER . RESPIRATORY: HAVE YOU BEEN SICK IN THE PAST WEEK? NO . FEVER NO . FLU LIKE SYMPTOMS? NO . COUGH NO . INTEGUMENTARY: DO YOU HAVE ANY RASHES OR OPEN SORES? NO . ALLERGIC/IMMUNO: ARE YOU ALLERGIC TO IV DYE? NO . ANY NEW ALLERGIES? NO . PSYCHIATRIC: DO YOU HAVE THOUGHTS OF HURTING YOURSELF OR SOMEONE ELSE? NO . ARE YOU ABUSED, NEGLECTED, OR IN AN UNSAFE ENVIRONMENT? NO . ENDOCRINOLOGY: ARE YOU DIABETIC? NO . OTHER: DO YOU NEED ANY PRESCRIPTIONS? NO . IF YES, PLEASE LIST: ____ . ANY NEW PROBLEMS WITH YOUR MEDICATIONS? NO . WHEN DID YOU LAST EAT? 03/18/2019 1800 . WHEN DID YOU LAST DRINK? 03/19/2019 0800 . WHAT DID YOU LAST DRINK? WATER . NAME OF PERSON DRIVING YOU HOME? JOSELO . DO YOU HAVE ANY OTHER QUESTIONS OR CONCERNS YES - CAN PRESCRIPTION FOR PERCOCET 7/325 MG BE REFILLED . VITAL SIGNS WT 253.2 LBS, HT 61 IN, BMI 47.84 INDEX, BP 155/91 MM HG, HR 89 /MIN, RR 18 /MIN, TEMP 97.1 F, OXYGEN SAT % 96%, NA INITIALS SC 14:20, REVIEWED BY: LS. ASSESSMENTS MYALGIA, OTHER SITE - M79.18 (PRIMARY) PROCEDURES PN TRIGGER POINT INJECTION NO STEROIDS DATE OF PROCEDURE : PRE PROCEDURE DIAGNOSIS 1. MYALGIA 2. PAIN AT BILATERAL LOWER BACK AREA POST PROCEDURE DIAGNOSIS 1. MYALGIA 2. PAIN AT BILATERAL LOWER BACK AREA PROCEDURE TRIGGER POINT INJECTION AT RIGHT AND LEFT LUMBAR AREA SURGEON DR. ARELIS MILLER PROPULSION GENERATOR REPAIRER NONE ANESTHESIA LOCAL PRE PROCEDURE NOTE 53 YEAR-OLD PATIENT WITH HISTORY OF CHRONIC PAIN AT THE LEFT AND RIGHT LOWER BACK AREA. I EVALUATED THE PATIENT AND REVIEWED THE CHART. THERE IS EVIDENCE OF BANDS OF TISSUE WITH RESTRICTION OF MOVEMENT AND PRESENCE OF TRIGGER POINT AT THE AFFECTED AREA. I WENT OVER THE RISKS, ALTERNATIVES, AND BENEFITS ASSOCIATED WITH THIS PROCEDURE. THE PATIENT WOULD LIKE TO PROCEED AND GAVE CONSENT TO PERFORM THE PROCEDURE. THE PATIENT DENIES UNEXPLAINABLE WEIGHT LOSS, FEVER, CHILLS, OR NEW CHANGES IN URINARY OR BOWEL CONTROL DESCRIPTION OF PROCEDURE THE PATIENT WAS BROUGHT TO THE PROCEDURE ROOM AND PLACED IN THE SITTING POSITION. THE AREA WAS CLEANED WITH ALCOHOL. THE PROCEDURE WAS DONE USING ASEPTIC STERILE TECHNIQUES. I CHECKED LATERALITY AND THE LEVEL WHERE THE PROCEDURE WAS GOING TO BE PERFORMED WITH THE PATIENT AND THE SUPPORTING STAFF AT THE MOMENT OF THE TIME OUT IN THE PROCEDURE ROOM. USING A 25-GAUGE NEEDLE, TRIGGER POINTS WERE INJECTED AT THE RIGHT LOW BACK AREA AND LEFT LOW BACK AREA WITH A TOTAL OF 40 ML OF BUPIVACAINE 0.25%. AGREED WITH THE PATIENT THE PROCEDURE WAS DONE WITHOUT STEROIDS. THERE WAS NO EVIDENCE OF BLOOD, PARESTHESIA OR CEREBROSPINAL FLUID DURING THE PROCEDURE. THE PATIENT WAS SENT TO THE RECOVERY ROOM. THE PATIENT WAS MOVING THE EXTREMITIES AND DOING WELL. THERE WAS NO COMPLICATION DURING THE PROCEDURE POST PROCEDURE NOTE THE PATIENT WILL BE SEEN IN A FOLLOWUP IN THE NEXT FEW WEEKS. I AM LOOKING FOR LONG-LASTING PAIN RELIEF WITH THIS PROCEDURE. INSTRUCTIONS WERE GIVEN, QUESTIONS WERE ANSWERED, AND THE PATIENT EXPRESSED UNDERSTANDING AND AGREED WITH THE PLAN. I, LUCERO ESCOBAR, DOCUMENTED THE ABOVE INFORMATION ACTING A SCRIBE FOR DR. MILLER. I HAVE REVIEWED THE ABOVE DOCUMENT, WRITTEN BY ESTELA MALDONADO, AND I VERIFY THAT IT IS ACCURATE PROCEDURE CODES 84552 INJECT TRIGGER POINT, 1 OR 2 DISPOSITION & COMMUNICATION FOLLOW UP 3 WEEKS ELECTRONICALLY SIGNED BY ARELIS MILLER MD, MD ON 03/26/2019 AT 12:39 PM EST DISCLAIMER : THIS IS A VISIT SUMMARY EXTRACTED FROM THE [employer] CHART. IT IS NOT A COPY OF THE [employer] PROGRESS NOTE. RITA
== END ==
LOC: M PAIN 14:15
PROVIDERS: ATTEND Anesthesiology
DX: M79.18 Myalgia, other site (principal); G43.909 Migraine, unspecified, not intractable, without status migrainosus; Z86.59 Personal history of other mental and behavioral disorders; E78.5 Hyperlipidemia, unspecified; K21.9 Gastro-esophageal reflux disease without esophagitis; I10 Essential (primary) hypertension; Z87.891 Personal history of nicotine dependence; Z88.1 Allergy status to other antibiotic agents; Z88.8 Allergy status to other drugs, medicaments and biological substances; Z86.14 Personal history of Methicillin resistant Staphylococcus aureus infection; Z79.01 Long term (current) use of anticoagulants; E66.01 Morbid (severe) obesity due to excess calories; Z68.42 Body mass index [BMI] 45.0-49.9, adult; Z79.899 Other long term (current) drug therapy
CPT/HCPCS: 20552; Q0162

== ENCOUNTER 2019-03-20 13:55 | Emergency (ER) | payer OTHER ==
[~2019-03-20] VITALS: Ht 157.5 cm; Wt 113.6 kg
[~2019-03-20 13:55] MED LIST changes: -GABA-843 PO
--- NOTE | 2019-03-20 14:48 | REP ---
Portable chest x-ray: Single view. History: Chest pain. Comparison study: March 18, 2019. Findings: Monitoring electrodes overlie the chest. There is a loop recorder overlying the left heart. The lungs are well inflated and free of infiltrate. Pleural angles are sharp. Heart size is normal. The previously noted granulomatous calcification in the left base is obscured today by the loop recorder and the course of one of the monitoring electrodes. Pulmonary vasculature is not increased. Impression: No acute disease. Electronically Signed by Dominic Chao MD 03/20/2019 02:39 P
[2019-03-20 15:09] LABS: BASO % 0.2 % (0.0-1.0); EOS # 0.1 10^3/uL (0.0-0.5); HEMATOCRIT 45.4 % (36.0-47.0); HEMOGLOBIN 14.3 g/dl (12.0-15.5); LYMPH # 1.4 10^3/uL (1.5-5.0); LYMPH % 23.6 % (24.0-44.0); MEAN CORPUSCULAR HEMOGLOBIN 29.1 pg (27.0-33.0); MEAN CORPUSCULAR HGB CONC 31.5 g/dl (32.0-36.5); MEAN CORPUSCULAR VOLUME 92.5 fl (80.0-96.0); MONO # 0.4 10^3/uL (0.0-0.8); MONO % 7.1 % (0.0-5.0); NEUTROPHILS # 3.9 10^3/uL (1.5-8.5); NEUTROPHILS % 67.8 % (36.0-66.0); PLATELET COUNT, AUTOMATED 156 10^3/uL (150-450); RED BLOOD COUNT 4.91 10^6/uL (4.00-5.40); WHITE BLOOD COUNT 5.8 10^3/uL (4.0-10.0)
[2019-03-20] MEDS ORDERED: ACETAMINOPHEN 325 MG TAB PO ONE (15:15)
[2019-03-20 15:36] LABS: BLOOD UREA NITROGEN 8 MG/DL (7-18); CALCIUM LEVEL 8.9 MG/DL (8.5-10.1); CARBON DIOXIDE LEVEL 27 MEQ/L (21-32); CHLORIDE LEVEL 108 MEQ/L (98-107); CK-MB VALUE MASS < 1.0 NG/ML (<3.6); CPK CREATINE PHOSPHOKINASE 107 U/L (26-192); CREATININE FOR GFR 0.96 MG/DL (0.55-1.30); GLOMERULAR FILTRATION RATE > 60.0 (>51); GLUCOSE, FASTING 84 MG/DL (70-100); MB/CK RELATIVE INDEX 0.93 (< OR =4); SODIUM LEVEL 142 MEQ/L (136-145); TROPONIN I < 0.02 NG/ML (< 0.10)
[2019-03-20 16:00] VITALS: BP 125/58
[2019-03-20 16:37] LABS: FREE THYROXINE INDEX 4.2 % (1.3-4.8); T UPTAKE 36 % (30-39); THYROXINE (T4) 11.8 UG/DL (4.5-12.0)
--- NOTE | 2019-03-20 19:27 | ECGEPIP ---
[facility] - ED Test Date: 2019-03-20 Pat Name: SMITH VIVEROS Department: Room: - Gender: Female College Administrator: diana : 1965 Requested By: CHARLEEN Daniel Order Number: [id number] Reading MD: Barrie Mobley Measurements Intervals [place] Rate: 98 P: 5 KS: 148 QRS: 5 QRSD: 86 T: 10 QT: 345 QTc: 442 Interpretive Statements SINUS RHYTHM WITH OCCASIONAL SUPRAVENTRICULAR PREMATURE COMPLEXES NSTTW ABNORMALITIES POOR R WAVE PROGRESSION SIMILAR TO 03/18/19 Electronically Signed on 03-20-2019 19:27:19 EST by Barrie Mobley
[2019-03-21] MEDS ORDERED: OXYC1TAB23 PO (15:57)
[2019-03-21] MEDS ORDERED: GABA-843 PO (15:57)
[2019-03-21] MEDS ORDERED: ONDA4TAB6 PO (20:58)
[2019-03-21] MEDS ORDERED: BACT800T5 PO (20:58)
== END 2019-03-20 16:42 | disposition home or self-care (01) ==
LOC: M ED 13:55
DX: R00.2 Palpitations (principal); I49.3 Ventricular premature depolarization; I48.91 Unspecified atrial fibrillation; I25.10 Atherosclerotic heart disease of native coronary artery without angina pectoris; M54.5 Low back pain; F31.9 Bipolar disorder, unspecified; F44.5 Conversion disorder with seizures or convulsions; Z87.891 Personal history of nicotine dependence; Z79.899 Other long term (current) drug therapy; Z79.01 Long term (current) use of anticoagulants; Z88.1 Allergy status to other antibiotic agents; Z88.0 Allergy status to penicillin; Z88.2 Allergy status to sulfonamides; Z88.8 Allergy status to other drugs, medicaments and biological substances

== ENCOUNTER → 2019-03-20 | Outpatient (CLI) | payer OTHER ==
[~2019-03-20] MED LIST changes: -BUPIVACAINE HCL 0.25% 30 ML VIAL As Ordered ONE; -ONDANSETRON 4 MG ORAL DISINTEGRATING TAB (Q0162 PER 1MG) As Ordered ONE; -diazePAM 5 MG TAB As Ordered ONE; -diphenhydrAMINE 25 MG CAP As Ordered ONE; -oxyCODONE 5MG TAB As Ordered ONE
--- NOTE | 2019-03-24 23:27 | ECWPNPC ---
PATIENT NAME: SMITH VIVEROS : 1965 GENDER: FEMALE VISIT DATE: 03/20/2019 DISCHARGE DATE: 03/20/19 0000 VISIT LOCKED DATE TIME: PHYSICIAN: ANISA LOCO RESOURCE: ANISA LOCO REASON FOR APPOINTMENT 1. PER DR. Zamudio HISTORY OF PRESENT ILLNESS HISTORY OF PRESENT ILLNESS: PAIN THE PATIENT DESCRIBES THE PAIN... 54-YEAR-OLD FEMALE IN FOR COMPLAINTS OF INCREASED SHOULDER PAIN STATUS POST SHOULDER SURGERY. FALL RISK SCREENING: SCREENING :NO FALLS REPORTED IN THE LAST YEAR CURRENT MEDICATIONS TAKING NITROGLYCERIN 0.4 MG TABLET SUBLINGUAL DIRECTED SUBLINGUAL EVERY 5 MIN: MDD 3 TABLETS TAKING SUCRALFATE 1 GM TABLET 1 TABLET ORALLY TWICE A DAY TAKING ELIQUIS 5 MG TABLET 1 TAB(S) ORALLY TWICE DAILY TAKING PROTONIX 40 MG TABLET DELAYED RELEASE 1 TABLET ORALLY BID TAKING METOPROLOL SUCCINATE 25 MG CAPSULE ER 24 HOUR SPRINKLE 1 CAPSULE ORALLY ONCE A DAY TAKING BACLOFEN 10 MG TABLET 0.5 TABLET TID X 5 DAYS THEN1 TABLET WITH FOOD OR MILK ORALLY THREE TIMES A DAY NOT-TAKING PERCOCET 5-325 MG TABLET 1 TABLET NEEDED ORALLY EVERY 6 HRS NOT-TAKING ROBAXIN 500 MG TABLET 1.5 TABLETS ORALLY EVERY 4 HRS NOT-TAKING PAROXETINE HCL 30 MG TABLET 1 TABLET IN THE MORNING ORALLY ONCE A DAY MEDICATION LIST REVIEWED AND RECONCILED WITH THE PATIENT PAST MEDICAL HISTORY FIBROMYALGIA DX 4 YEARS AGO, BEING FOLLOWED AT PAIN CLINIC MIGRAINE HEADACHE STRESS INCONTINENCE DEPRESSION HYPERLIPIDEMIA VITAMIN D DEFICIENCY AFIB GERD INTERMITTENT A FIB STRESS INCONTINENCE, FEMALE CHRONIC PAIN SYNDROME UNSPECIFIED VITAMIN D DEFICIENCY MIGRAINE, UNSPECIFIED WITHOUT MENTION OF INTRACTABLE MIGRAINE WITHOUT MENTION OF STATUS MIGRAINOSUS HYPERTENSION ALLERGIES ZIPSOR: ALLERGY FLEXERIL: AGGITATION - ALLERGY LYRICA: ANAPHYLAXIS - ALLERGY DICLOFENAC POTASSIUM: AGGITATION (ZIPSOR) - ALLERGY BACTRIM: NAUSEA/VOMITING - ALLERGY CYMBALTA: NAUSEA/VOMITING - SIDE EFFECTS AMITRIPTYLINE: AGGITATION - SIDE EFFECTS GABAPENTIN: HALLUCINATIONS - SIDE EFFECTS TIZANIDINE HCL: HIVES - ALLERGY KETOROLAC TROMETHAMINE: STOMACH PAIN - ALLERGY SURGICAL HISTORY TUBAL LIGATION 1987 DISTAL 4TH FINGER REPAIR SECONDARY TO TRAUMATIC INJURY BENIGN TUMOR REMOVAL RIGHT LEG DENTAL SURGERIES CHOLECYSTECTOMY 05/2014 HYSTERECTOMY STILL HAS 1 OVARY BUT NOT SURE WHICH ONE 2012 ABSCESS R GROIN 2015 LOOP RECORDER 10/2018 LEFT SHOULDER REPAIR 02/20/19 FAMILY HISTORY FATHER: , PNEUMONIA, CHF, NEUROPATHY, BLOOD CLOT, DIAGNOSED WITH DIABETES, UNSPECIFIED HEART DISEASE, UNSPECIFIED CEREBRAL ARTERY OCCLUSION WITH CEREBRAL INFARCTION MOTHER: , CANCER, DIABETES, HYPERTENSION, UNSPECIFIED HEART DISEASE, UNSPECIFIED CEREBRAL ARTERY OCCLUSION WITH CEREBRAL INFARCTION, OTHER MALIGNANT NEOPLASM OF UNSPECIFIED SITE SIBLINGS: ALIVE, LUPUS, DIABETES SON(S): ALIVE DAUGHTER(S): ALIVE 2 BROTHER(S) , 5 SISTER(S) . 1 SON(S) , 1 DAUGHTER(S) - HEALTHY. SOCIAL HISTORY GENERAL: TOBACCO USE ARE YOU A:FORMER SMOKER HOW LONG HAS IT BEEN SINCE YOU LAST SMOKED?5-10 YEARS VAPORNO E-CIGARETTEYES HIV / HEP-C SCREENING HIV TEST OFFERED TO PATIENT:YES DATE OFFERED:10/26/2017 TEST ACCEPTED:NO HEP-C TEST OFFERED TO PATIENT:NO REASON:PATIENT DECLINED BROCHURE PROVIDED TO PATIENTNO OTHERS AT HOME: [id number], BROTHER, NEPHEW AND BOYFRIEND. DIET: REGULAR. LANGUAGE CITIZEN OF [place]. DOMESTIC VIOLENCE DO YOU FEEL SAFE IN YOUR ENVIRONMENT?YES NEW PATIENT PAIN DIARY FROM 0-10, WHAT LEVEL IS YOUR PAIN TODAY?10 BMI CARE GOAL FOLLOW-UP ABOVE NORMAL BMI FOLLOW-UPLIFESTYLE EDUCATION REGARDING DIET RECREATIONAL DRUG USE DRUG USE?NO EXERCISE: NO REGULAR EXERCISE. LEARNING BARRIERS / SPECIAL NEEDS CHANGE FROM LAST VISIT?NO BARRIERS TO LEARNING?NO HEARING IMPAIRED?NO VISION IMPAIRED?YES COGNITIVELY IMPAIRED?NO :CORRECTIVE LENSES READINESS TO LEARN?YES LEARNING PREFERENCES?NO LEARNING CAPABILITIES PRESENT?YES EMOTIONAL BARRIERS?YES SPECIAL DEVICES?NO PAIN CLINIC PFS, CLERGY, PUBLIC HEALTH REFERRALS PFS REFERRAL NEEDED?NO CLERGY REFERRAL NEEDED?NO PUBLIC HEALTH REFERRAL NEEDED?NO WAS THE PROVIDER NOTIFIED OF ANY PERTINENT INFO?NO N/A HAS THE PATIENT BEEN EDUCATED REGARDING HIS/HER PLAN OF CARE?YES HAS THE PATIENT BEEN EDUCATED REGARDING PAIN, THE RISK FOR PAIN, THE IMPORTANCE OF EFFECTIVE PAIN MANAGEMENT, AND THE PAIN ASSESSMENT PROCESS?YES LATEX QUESTIONNAIRE LATEX ALLERGY : HAVE YOU EVER DEVELOPED ANY TYPE OF REACTION AFTER HANDLING LATEX PRODUCTS SUCH RUBBER GLOVES, CONDOMS, DIAPHRAGMS, BALLOONS, SOCKS, OR UNDERWEAR?NO LATEX ALLERGY : HAVE YOU EVER DEVELOPED ANY TYPE OF REACTION DURING OR AFTER DENTAL APPOINTMENT, VAGINAL/RECTAL EXAMINATION, SURGICAL PROCEDURE, OR ANY OTHER EXPOSURE?NO DATE ASKED : 10/02/2018 LATEX RISK : HAVE YOU EVER HAD ANY DIFFICULTY BREATHING OR HIVES AFTER EATING OR HANDLING ANY FRUITS, OR VEGETABLES; SUCH KIWI, BANANAS, STONE FRUITS, OR CHESTNUTSNO LATEX RISK : DO YOU HAVE A PREVIOUS PERSONAL HISTORY OF MORE THAN NINE SURGERIES, SPINA BIFIDA, OR REPEATED CATHERIZATIONS? YES - PLEASE INDICATE : > 9 SURGERIES LATEX RISK : ARE YOU FREQUENTLY EXPOSED TO LATEX PRODUCTS IN YOUR OCCUPATION?NO CAFFEINE CAFFEINE USE?YES ADVANCE DIRECTIVE ADVANCE DIRECTIVE DISCUSSED WITH PATIENT:YES PT HAS NO ADVANCED DIRECTIVES, DECLINES HCP INFORMATION AND ASSISTANCE WITH FORM AT THIS TIME. MORMONISM NO NONDENOMINATIONAL BELIEFS THAT WOULD IMPACT HEALTH CARE. MARITAL STATUS: .. ALCOHOL SCREENING DID YOU HAVE A DRINK CONTAINING ALCOHOL IN THE PAST YEAR?NO POINTS0 INTERPRETATIONNEGATIVE OCCUPATION: UNEMPLOYED. SEXUAL HX HAD SEX IN THE LAST 12 MONTHS (VAGINAL, ORAL, OR ANAL)?NO HAVE YOU EVER HAD AN STD?NO 08/15/17 1025 REVIEWED WITH PT. AD03/15/2018 1508 REVIEWED WITH PT LAS03/27/18 1116 REVIEWED WITH PT BVREVIEWED WITH PATIENT 06/24/18 1028 JSREVIEWED WITH PATIENT 07/24/18 1257 JSREVIEWED WITH PT 09/30/18 1042 BVPRE PROCEDURE PHONE CALL COMPLETED 03/14/19 1201 NLJ. HOSPITALIZATION/MAJOR DIAGNOSTIC PROCEDURE ABOVE SURGERIES MRSA RIGHT GROIN 2015, C DIFF 2015 CHEST PAIN 10/20/2016 [facility] 09/2017 DIVERTICULITIS AND /HYPOTENSION 06/2018 SYNCOPE 09/2018 A-FIB AND LOOP RECORDER 10/2018 REVIEW OF SYSTEMS REVIEWED BY: PROVIDER: JAJA VIERA . CONSTITUTIONAL: ANY CHANGE IN YOUR MEDICAL CONDITION? NO . CHILLS NO . FEVER NO . INFECTION: DO YOU HAVE NEW INFECTIONS? NO . DO YOU HAVE HISTORY OF MRSA? YES . MUSCULOSKELETAL: ANY NEW PATTERNS OF PAIN OR NUMBNESS? YES, LEFT ARM CONSTANT PAIN . GASTROENTEROLOGY: ANY NEW CHANGE IN BOWEL CONTROL? NO . GENITOURINARY: ANY NEW CHANGE IN BLADDER CONTROL? NO . IS THERE A CHANCE YOU COULD BE ? NO . HEMATOLOGY/LYMPH: DO YOU TAKE ANY BLOOD THINNERS? (FOR EXAMPLE- COUMADIN, PLAVIX, AGGRENOX, PLATEL, PRADAXA, OR XARELTO) YES, ELIQUIS . WHEN WAS YOUR LAST DOSE? DATE: TIME: . NEUROLOGY: HAVE YOU FALLEN IN THE PAST 12 MONTHS? YES, PRIOR TO LAST VISIT . ANY NEW EXTREMITY NUMBNESS OR WEAKNESS? YES, LEFT ARM NUMBNESS . CARDIOLOGY: DO YOU HAVE A PACEMAKER OR DEFIBRILLATOR? YES, LOOP RECORDER . RESPIRATORY: HAVE YOU BEEN SICK IN THE PAST WEEK? NO . FEVER NO . FLU LIKE SYMPTOMS? NO . COUGH NO . INTEGUMENTARY: DO YOU HAVE ANY RASHES OR OPEN SORES? YES, TO UPPER LIP . ALLERGIC/IMMUNO: ARE YOU ALLERGIC TO IV DYE? NO . ANY NEW ALLERGIES? NO . PSYCHIATRIC: DO YOU HAVE THOUGHTS OF HURTING YOURSELF OR SOMEONE ELSE? NO . ARE YOU ABUSED, NEGLECTED, OR IN AN UNSAFE ENVIRONMENT? NO . ENDOCRINOLOGY: ARE YOU DIABETIC? NO . OTHER: DO YOU NEED ANY PRESCRIPTIONS? YES, PERCOSET 5/325 . IF YES, PLEASE LIST: ____ . ANY NEW PROBLEMS WITH YOUR MEDICATIONS? NO . WHEN DID YOU LAST EAT? ____ . WHEN DID YOU LAST DRINK? ____ . WHAT DID YOU LAST DRINK? ____ . NAME OF PERSON DRIVING YOU HOME? ____ . DO YOU HAVE ANY OTHER QUESTIONS OR CONCERNS NO . VITAL SIGNS WT 253.2 LBS, HT 61 IN, BMI 47.84 INDEX, BP 139/91 MM HG, HR 101 /MIN, RR 18 /MIN, TEMP 96.5 F, OXYGEN SAT % 97%, NA INITIALS SC 11:28, REVIEWED BY: GIULIANO. ASSESSMENTS PAIN IN UNSPECIFIED SHOULDER - M25.519 (PRIMARY) TREATMENT PAIN IN UNSPECIFIED SHOULDER CLINICAL NOTES: 54-YEAR-OLD FEMALE IN WITH COMPLAINTS OF SHOULDER PAIN STATUS POST SHOULDER SURGERY. DISCUSSED PAIN WITH PATIENT AND INFORMED HER THAT UNFORTUNATELY WE COULD NOT TREAT HER PAIN GIVEN THIS WAS POSTSURGICAL PAIN AND NOT CHRONIC PAIN. THIS PODIATRY DOCTOR ENCOURAGED PATIENT TO DISCUSS THIS WITH HER SURGEON AND SHOULD HE HAVE ANY QUESTIONS TO HAVE HIM GIVE THIS PODIATRY DOCTOR A CALL. PATIENT IS EXPRESSED UNDERSTANDING OF AND WAS IN AGREEMENT WITH TREATMENT PLAN. GIVEN TIME TO ASK QUESTIONS AND EXPRESS CONCERNS. PROCEDURE CODES FA211 ESTABILISHED PATIENT [facility] CHARGE DISPOSITION & COMMUNICATION ELECTRONICALLY SIGNED BY TRA ACOSTA ON 03/24/2019 AT 08:23 AM EST DISCLAIMER : THIS IS A VISIT SUMMARY EXTRACTED FROM THE [employer] CHART. IT IS NOT A COPY OF THE [email or web address] PROGRESS NOTE. RITA
== END ==
LOC: M PAIN 10:30
PROVIDERS: ATTEND Family Medicine
DX: M25.519 Pain in unspecified shoulder (principal)

== ENCOUNTER 2019-03-24 11:56 | Emergency (ER) | payer OTHER ==
[~2019-03-24] VITALS: Ht 157.5 cm; Wt 110.9 kg
[~2019-03-24 11:56] MED LIST changes: +GABA-843 PO
[2019-03-24] MEDS ORDERED: MORPHINE 4 MG/ML 1ML VIAL/SYRINGE (J2270) IV ONE ×2 (14:00→16:45)
[2019-03-24] MEDS ORDERED: ONDANSETRON 4MG/2ML VIAL (J2405) IV ONE (14:00)
[2019-03-24 15:43] LABS: BASO % 0.3 % (0.0-1.0); EOS # 0.1 10^3/uL (0.0-0.5); EOS % 1.5 % (0.0-3.0); HEMATOCRIT 42.9 % (36.0-47.0); HEMOGLOBIN 14.4 g/dl (12.0-15.5); LYMPH # 1.6 10^3/uL (1.5-5.0); LYMPH % 20.8 % (24.0-44.0); MEAN CORPUSCULAR HEMOGLOBIN 30.4 pg (27.0-33.0); MEAN CORPUSCULAR HGB CONC 33.6 g/dl (32.0-36.5); MEAN CORPUSCULAR VOLUME 90.5 fl (80.0-96.0); MONO # 0.6 10^3/uL (0.0-0.8); NEUTROPHILS # 5.2 10^3/uL (1.5-8.5); NEUTROPHILS % 69.1 % (36.0-66.0); PLATELET COUNT, AUTOMATED 206 10^3/uL (150-450); RED BLOOD COUNT 4.74 10^6/uL (4.00-5.40); WHITE BLOOD COUNT 7.5 10^3/uL (4.0-10.0)
[2019-03-24] MEDS ORDERED: LIDOCAINE 2% W/EPIN INJ 20ML **PRES FREE INJ ONE (16:00)
[2019-03-24 16:06] LABS: ERYTHROCYTE SEDIMENTATION RATE 32 mm/hr (0-30)
[2019-03-24 16:15] LABS: ALBUMIN 3.4 GM/DL (3.2-5.2); BILIRUBIN,DIRECT 0.1 MG/DL (0.0-0.2); BILIRUBIN,TOTAL 0.3 MG/DL (0.2-1.0); C REACTIVE PROTEIN QUANTITATIV 7.47 MG/DL (0.00-0.30); CALCIUM LEVEL 9.2 MG/DL (8.5-10.1); CREATININE FOR GFR 1.03 MG/DL (0.55-1.30); GLOMERULAR FILTRATION RATE 59.4 (>51); POTASSIUM SERUM 3.9 MEQ/L (3.5-5.1); TOTAL PROTEIN 6.9 GM/DL (6.4-8.2)
[2019-03-24] MEDS ORDERED: PERC5TAB12 PO (17:02)
[2019-03-24] MEDS ORDERED: PERCOCET 5MG/325MG TAB PO ONE (17:15)
[2019-03-24 17:24] VITALS: BP 131/75
== END 2019-03-24 17:32 | disposition home or self-care (01) ==
LOC: M ED 11:56 → EEVIPCON 11:56 → M ED 17:32
DX: K13.0 Diseases of lips (principal); Z86.14 Personal history of Methicillin resistant Staphylococcus aureus infection; Z79.899 Other long term (current) drug therapy; Z79.01 Long term (current) use of anticoagulants; Z88.0 Allergy status to penicillin; Z88.1 Allergy status to other antibiotic agents; Z88.2 Allergy status to sulfonamides; Z88.8 Allergy status to other drugs, medicaments and biological substances
CPT/HCPCS: 10060; 36415; 80048; 80076; 83605; 85025; 85652; 86140; 87040; 87070; 87077; 87186; 87205; 96374; 96375; 96376; 99283; J2270; J2405

== ENCOUNTER 2019-04-08 13:12 | Emergency (ER) | payer OTHER ==
[~2019-04-08] VITALS: Ht 157.5 cm; Wt 111.3 kg
[2019-04-08 16:43] LABS: BASO % 0.2 % (0.0-1.0); EOS # 0.1 10^3/uL (0.0-0.5); HEMATOCRIT 43.8 % (36.0-47.0); HEMOGLOBIN 14.1 g/dl (12.0-15.5); LYMPH # 2.1 10^3/uL (1.5-5.0); LYMPH % 33.4 % (24.0-44.0); MEAN CORPUSCULAR HEMOGLOBIN 29.6 pg (27.0-33.0); MEAN CORPUSCULAR HGB CONC 32.2 g/dl (32.0-36.5); MEAN CORPUSCULAR VOLUME 91.8 fl (80.0-96.0); MONO # 0.4 10^3/uL (0.0-0.8); MONO % 5.9 % (0.0-5.0); NEUTROPHILS # 3.7 10^3/uL (1.5-8.5); PLATELET COUNT, AUTOMATED 192 10^3/uL (150-450); RED BLOOD COUNT 4.77 10^6/uL (4.00-5.40); WHITE BLOOD COUNT 6.3 10^3/uL (4.0-10.0)
--- NOTE | 2019-04-08 17:19 | REPVR ---
PROCEDURE INFORMATION: Exam: CT Head Without Contrast Exam date and time: 04/08/2019 5:07 PM Age: 54 years old Clinical indication: Syncope and collapse; Prior surgery TECHNIQUE: Imaging protocol: Computed tomography of the head without contrast. Radiation optimization: All CT scans at this facility use at least one of these dose optimization techniques: automated exposure control; mA and/or kV adjustment per patient size (includes targeted exams where dose is matched to clinical indication); or iterative reconstruction. COMPARISON: CT Head without contrast 12/30/2018 7:18 PM FINDINGS: Brain: Normal. No hemorrhage. Unremarkable white matter. No mass effect. Ventricles: Normal. No ventriculomegaly. Bones/joints: Unremarkable. No acute fracture. Sinuses: Visualized sinuses are unremarkable. No fluid levels. Mastoid air cells: Visualized mastoid air cells are well aerated. Soft tissues: Unremarkable. IMPRESSION: No acute intracranial abnormality. Electronically signed by: Mery Pineda On 04/08/2019 17:18:46 PM
[2019-04-08 17:21] LABS: BLOOD UREA NITROGEN 10 MG/DL (7-18); CALCIUM LEVEL 9.2 MG/DL (8.5-10.1); CARBON DIOXIDE LEVEL 28 MEQ/L (21-32); CHLORIDE LEVEL 109 MEQ/L (98-107); CREATININE FOR GFR 0.98 MG/DL (0.55-1.30); GLOMERULAR FILTRATION RATE > 60.0 (>51); GLUCOSE, FASTING 85 MG/DL (70-100); POTASSIUM SERUM 4.1 MEQ/L (3.5-5.1); SODIUM LEVEL 142 MEQ/L (136-145)
--- NOTE | 2019-04-08 17:59 | REP ---
CHEST: Single view There is no evidence of acute infiltrate. No pleural effusion is seen. The heart is normal in size. The mediastinal silhouette is unremarkable. The visualized osseous structures are intact. IMPRESSION: No acute pulmonary disease. Electronically Signed by Jose Martinez MD 04/09/2019 10:29 P
--- NOTE | 2019-04-08 18:35 | ECGEPIP ---
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
[2019-04-08] MEDS ORDERED: KETOROLAC 60 MG/2 ML VIAL (J1885) IM ONE (19:00)
--- NOTE | 2019-04-08 20:36 | REPVR ---
PROCEDURE INFORMATION: Exam: US Duplex Left Upper Extremity Veins, Limited Exam date and time: 04/08/2019 8:13 PM Age: 54 years old Clinical indication: Pain; Arm, upper; Left; Prior surgery; Surgery date: 1-6 months; Surgery type: Bursitis of shoulder arthoscopy; Additional info: Post op, pain, swelling TECHNIQUE: Imaging protocol: Real-time Duplex ultrasound of the Left Upper Extremity with 2-D rm scale, color Doppler flow and spectral waveform analysis with image documentation. Limited exam focused on the left upper extremity veins. COMPARISON: No relevant prior studies available. FINDINGS: Left deep veins: Unremarkable. Axillary and brachial veins are patent throughout without thrombus. Normal Doppler waveforms. Normal compressibility and/or augmentation response. Visualized internal jugular and subclavian veins are patent. Left superficial veins: Unremarkable. Visualized cephalic and basilic veins are patent without thrombus. Soft tissues: Unremarkable. IMPRESSION: No acute findings. No evidence of deep vein thrombosis. Fur Joiner scanned region of pain in left axilla and no discrete lesion was identified such as an enlarged lymph node. Electronically signed by: Mery Pineda On 04/08/2019 20:33:03 PM
[2019-04-08 20:45] VITALS: BP 125/66
== END 2019-04-08 21:00 | disposition home or self-care (01) ==
LOC: M ED 13:12
DX: M25.512 Pain in left shoulder (principal); I48.91 Unspecified atrial fibrillation; R56.9 Unspecified convulsions; E66.8 Other obesity; Z79.899 Other long term (current) drug therapy; Z79.01 Long term (current) use of anticoagulants; Z88.0 Allergy status to penicillin; Z88.1 Allergy status to other antibiotic agents; Z88.2 Allergy status to sulfonamides; Z88.8 Allergy status to other drugs, medicaments and biological substances; Z87.891 Personal history of nicotine dependence
CPT/HCPCS: 36415; 70450; 71045; 80047; 80048; 84443; 85025; 93005; 93041; 93971; 94760; 96372; 99285; J1885

== ENCOUNTER → 2019-04-16 | Outpatient (CLI) | payer OTHER ==
--- NOTE | 2019-04-18 00:55 | ECWPNPC ---
PATIENT NAME: SMITH VIVEROS : 1965 GENDER: FEMALE VISIT DATE: 04/16/2019 DISCHARGE DATE: 04/16/19 1425 VISIT LOCKED DATE TIME: PHYSICIAN: ANISA LOCO RESOURCE: ANISA LOCO REASON FOR APPOINTMENT 1. POST TPI HISTORY OF PRESENT ILLNESS HISTORY OF PRESENT ILLNESS: PAIN THE PATIENT DESCRIBES THE PAIN... 54-YEAR-OLD FEMALE IN FOR POST TPI FOLLOW-UP. PATIENT RATES HER PAIN PREPROCEDURE AT AN 8 OUT OF 10 AND POSTPROCEDURE AT A 0 OUT OF 10 TIMES ONE AND HALF WEEKS. THE PROCEDURE WAS DONE WITHOUT THE USE OF STEROIDS AND PATIENT FEELS THIS IS THE REASON SHE ONLY HAD A SHORT DURATION OF RELIEF OF SYMPTOMS. FALL RISK SCREENING: SCREENING :NO FALLS REPORTED IN THE LAST YEAR CURRENT MEDICATIONS TAKING NITROGLYCERIN 0.4 MG TABLET SUBLINGUAL DIRECTED SUBLINGUAL EVERY 5 MIN: MDD 3 TABLETS TAKING SUCRALFATE 1 GM TABLET 1 TABLET ORALLY TWICE A DAY TAKING ELIQUIS 5 MG TABLET 1 TAB(S) ORALLY TWICE DAILY TAKING PROTONIX 40 MG TABLET DELAYED RELEASE 1 TABLET ORALLY BID TAKING METOPROLOL SUCCINATE 25 MG CAPSULE ER 24 HOUR SPRINKLE 1 CAPSULE ORALLY ONCE A DAY NOT-TAKING ROBAXIN 500 MG TABLET 1.5 TABLETS ORALLY EVERY 4 HRS NOT-TAKING PAROXETINE HCL 30 MG TABLET 1 TABLET IN THE MORNING ORALLY ONCE A DAY DISCONTINUED BACLOFEN 10 MG TABLET 0.5 TABLET TID X 5 DAYS THEN1 TABLET WITH FOOD OR MILK ORALLY THREE TIMES A DAY DISCONTINUED PERCOCET 5-325 MG TABLET 1 TABLET NEEDED ORALLY FOR PAIN DAILY MDD1 MEDICATION LIST REVIEWED AND RECONCILED WITH THE PATIENT PAST MEDICAL HISTORY FIBROMYALGIA DX 4 YEARS AGO, BEING FOLLOWED AT PAIN CLINIC MIGRAINE HEADACHE STRESS INCONTINENCE DEPRESSION HYPERLIPIDEMIA VITAMIN D DEFICIENCY AFIB GERD INTERMITTENT A FIB STRESS INCONTINENCE, FEMALE CHRONIC PAIN SYNDROME UNSPECIFIED VITAMIN D DEFICIENCY MIGRAINE, UNSPECIFIED WITHOUT MENTION OF INTRACTABLE MIGRAINE WITHOUT MENTION OF STATUS MIGRAINOSUS HYPERTENSION ALLERGIES ZIPSOR: ALLERGY FLEXERIL: AGGITATION - ALLERGY LYRICA: ANAPHYLAXIS - ALLERGY DICLOFENAC POTASSIUM: AGGITATION (ZIPSOR) - ALLERGY BACTRIM: NAUSEA/VOMITING - ALLERGY CYMBALTA: NAUSEA/VOMITING - SIDE EFFECTS AMITRIPTYLINE: AGGITATION - SIDE EFFECTS GABAPENTIN: HALLUCINATIONS - SIDE EFFECTS TIZANIDINE HCL: HIVES - ALLERGY KETOROLAC TROMETHAMINE: STOMACH PAIN - ALLERGY SURGICAL HISTORY TUBAL LIGATION 1988 DISTAL 4TH FINGER REPAIR SECONDARY TO TRAUMATIC INJURY BENIGN TUMOR REMOVAL RIGHT LEG DENTAL SURGERIES CHOLECYSTECTOMY 05/2014 HYSTERECTOMY STILL HAS 1 OVARY BUT NOT SURE WHICH ONE 2012 ABSCESS R GROIN 2014 LOOP RECORDER 10/2018 LEFT SHOULDER REPAIR 02/20/19 FAMILY HISTORY FATHER: , PNEUMONIA, CHF, NEUROPATHY, BLOOD CLOT, DIAGNOSED WITH DIABETES, UNSPECIFIED HEART DISEASE, UNSPECIFIED CEREBRAL ARTERY OCCLUSION WITH CEREBRAL INFARCTION MOTHER: , CANCER, DIABETES, HYPERTENSION, UNSPECIFIED HEART DISEASE, UNSPECIFIED CEREBRAL ARTERY OCCLUSION WITH CEREBRAL INFARCTION, OTHER MALIGNANT NEOPLASM OF UNSPECIFIED SITE SIBLINGS: ALIVE, LUPUS, DIABETES SON(S): ALIVE DAUGHTER(S): ALIVE 2 BROTHER(S) , 5 SISTER(S) . 1 SON(S) , 1 DAUGHTER(S) - HEALTHY. SOCIAL HISTORY GENERAL: TOBACCO USE ARE YOU A:FORMER SMOKER HOW LONG HAS IT BEEN SINCE YOU LAST SMOKED?5-10 YEARS VAPORNO E-CIGARETTEYES HIV / HEP-C SCREENING HIV TEST OFFERED TO PATIENT:YES DATE OFFERED:10/26/2017 TEST ACCEPTED:NO HEP-C TEST OFFERED TO PATIENT:NO REASON:PATIENT DECLINED BROCHURE PROVIDED TO PATIENTNO OTHERS AT HOME: [id number], BROTHER, NEPHEW AND BOYFRIEND. DIET: REGULAR. LANGUAGE AUSTRALIAN. DOMESTIC VIOLENCE DO YOU FEEL SAFE IN YOUR ENVIRONMENT?YES NEW PATIENT PAIN DIARY FROM 0-10, WHAT LEVEL IS YOUR PAIN TODAY?10 BMI CARE GOAL FOLLOW-UP ABOVE NORMAL BMI FOLLOW-UPLIFESTYLE EDUCATION REGARDING DIET RECREATIONAL DRUG USE DRUG USE?NO EXERCISE: NO REGULAR EXERCISE. LEARNING BARRIERS / SPECIAL NEEDS CHANGE FROM LAST VISIT?NO BARRIERS TO LEARNING?NO HEARING IMPAIRED?NO VISION IMPAIRED?YES COGNITIVELY IMPAIRED?NO :CORRECTIVE LENSES READINESS TO LEARN?YES LEARNING PREFERENCES?NO LEARNING CAPABILITIES PRESENT?YES EMOTIONAL BARRIERS?YES SPECIAL DEVICES?NO PAIN CLINIC PFS, CLERGY, PUBLIC HEALTH REFERRALS PFS REFERRAL NEEDED?NO CLERGY REFERRAL NEEDED?NO PUBLIC HEALTH REFERRAL NEEDED?NO WAS THE PROVIDER NOTIFIED OF ANY PERTINENT INFO?NO N/A HAS THE PATIENT BEEN EDUCATED REGARDING HIS/HER PLAN OF CARE?YES HAS THE PATIENT BEEN EDUCATED REGARDING PAIN, THE RISK FOR PAIN, THE IMPORTANCE OF EFFECTIVE PAIN MANAGEMENT, AND THE PAIN ASSESSMENT PROCESS?YES LATEX QUESTIONNAIRE LATEX ALLERGY : HAVE YOU EVER DEVELOPED ANY TYPE OF REACTION AFTER HANDLING LATEX PRODUCTS SUCH RUBBER GLOVES, CONDOMS, DIAPHRAGMS, BALLOONS, SOCKS, OR UNDERWEAR?NO LATEX ALLERGY : HAVE YOU EVER DEVELOPED ANY TYPE OF REACTION DURING OR AFTER DENTAL APPOINTMENT, VAGINAL/RECTAL EXAMINATION, SURGICAL PROCEDURE, OR ANY OTHER EXPOSURE?NO DATE ASKED : 10/02/2018 LATEX RISK : HAVE YOU EVER HAD ANY DIFFICULTY BREATHING OR HIVES AFTER EATING OR HANDLING ANY FRUITS, OR VEGETABLES; SUCH KIWI, BANANAS, STONE FRUITS, OR CHESTNUTSNO LATEX RISK : DO YOU HAVE A PREVIOUS PERSONAL HISTORY OF MORE THAN NINE SURGERIES, SPINA BIFIDA, OR REPEATED CATHERIZATIONS? YES - PLEASE INDICATE : > 9 SURGERIES LATEX RISK : ARE YOU FREQUENTLY EXPOSED TO LATEX PRODUCTS IN YOUR OCCUPATION?NO CAFFEINE CAFFEINE USE?YES ADVANCE DIRECTIVE ADVANCE DIRECTIVE DISCUSSED WITH PATIENT:YES PT HAS NO ADVANCED DIRECTIVES, DECLINES HCP INFORMATION AND ASSISTANCE WITH FORM AT THIS TIME. MORMON NO ADVENTISM BELIEFS THAT WOULD IMPACT HEALTH CARE. MARITAL STATUS: .. ALCOHOL SCREENING DID YOU HAVE A DRINK CONTAINING ALCOHOL IN THE PAST YEAR?NO POINTS0 INTERPRETATIONNEGATIVE OCCUPATION: UNEMPLOYED. SEXUAL HX HAD SEX IN THE LAST 12 MONTHS (VAGINAL, ORAL, OR ANAL)?NO HAVE YOU EVER HAD AN STD?NO 08/15/17 1025 REVIEWED WITH PT. AD03/15/2018 1508 REVIEWED WITH PT LAS03/27/18 1116 REVIEWED WITH PT BVREVIEWED WITH PATIENT 06/24/18 1028 JSREVIEWED WITH PATIENT 07/24/18 1257 JSREVIEWED WITH PT 09/30/18 1042 BVPRE PROCEDURE PHONE CALL COMPLETED 03/14/19 1201 NLJ. HOSPITALIZATION/MAJOR DIAGNOSTIC PROCEDURE ABOVE SURGERIES MRSA RIGHT GROIN 2015, C DIFF 2015 CHEST PAIN 10/20/2016 [facility]- IMHU 09/2017 DIVERTICULITIS AND /HYPOTENSION 06/2018 SYNCOPE 09/2018 A-FIB AND LOOP RECORDER 10/2018 REVIEW OF SYSTEMS REVIEWED BY: PROVIDER: JAJA DUTTA-C . CONSTITUTIONAL: ANY CHANGE IN YOUR MEDICAL CONDITION? NO . CHILLS NO . FEVER NO . INFECTION: DO YOU HAVE NEW INFECTIONS? NO . DO YOU HAVE HISTORY OF MRSA? YES . MUSCULOSKELETAL: ANY NEW PATTERNS OF PAIN OR NUMBNESS? NO . GASTROENTEROLOGY: ANY NEW CHANGE IN BOWEL CONTROL? NO . GENITOURINARY: ANY NEW CHANGE IN BLADDER CONTROL? NO . IS THERE A CHANCE YOU COULD BE ? NO . HEMATOLOGY/LYMPH: DO YOU TAKE ANY BLOOD THINNERS? (FOR EXAMPLE- COUMADIN, PLAVIX, AGGRENOX, PLATEL, PRADAXA, OR XARELTO) YES, ELIQUIS . WHEN WAS YOUR LAST DOSE? DATE: TIME: . NEUROLOGY: HAVE YOU FALLEN IN THE PAST 12 MONTHS? YES, PT FELL YESTERDAY FROM WEAKNESS, PT DENIES SEEKING MEDICAL [place] . ANY NEW EXTREMITY NUMBNESS OR WEAKNESS? NO . CARDIOLOGY: DO YOU HAVE A PACEMAKER OR DEFIBRILLATOR? YES, LOOP RECORDER . RESPIRATORY: HAVE YOU BEEN SICK IN THE PAST WEEK? NO . FEVER NO . FLU LIKE SYMPTOMS? NO . COUGH NO . INTEGUMENTARY: DO YOU HAVE ANY RASHES OR OPEN SORES? NO . ALLERGIC/IMMUNO: ARE YOU ALLERGIC TO IV DYE? NO . ANY NEW ALLERGIES? NO . PSYCHIATRIC: DO YOU HAVE THOUGHTS OF HURTING YOURSELF OR SOMEONE ELSE? NO . ARE YOU ABUSED, NEGLECTED, OR IN AN UNSAFE ENVIRONMENT? NO . ENDOCRINOLOGY: ARE YOU DIABETIC? NO . OTHER: DO YOU NEED ANY PRESCRIPTIONS? YES, SOMETHING FOR BACK PAIN . IF YES, PLEASE LIST: ____ . ANY NEW PROBLEMS WITH YOUR MEDICATIONS? NO . WHEN DID YOU LAST EAT? ____ . WHEN DID YOU LAST DRINK? ____ . WHAT DID YOU LAST DRINK? ____ . NAME OF PERSON DRIVING YOU HOME? ____ . DO YOU HAVE ANY OTHER QUESTIONS OR CONCERNS YES, BACK IS BAD . VITAL SIGNS WT 250 LBS, HT 61 IN, BMI 47.23 INDEX, BP 166/79 MM HG, HR 101 /MIN, RR 16 /MIN, TEMP 97.6 F, OXYGEN SAT % 97, REVIEWED BY: EM. EXAMINATION GENERAL EXAMINATION: GENERALNO ACUTE DISTRESS, WELL NOURISHED AND HYDRATED. PSYCHAPPROPRIATE MOOD AND AFFECT . LUNGS:CLEAR TO AUSCULTATION BILATERALLY, NO WHEEZES, RHONCHI, RALES. HEART:NO MURMURS, REGULAR RATE AND RHYTHM. BACK:POINT TENDER BILATERAL LOW BACK, SURROUNDING SKIN SHOWS NO ERYTHEMA, ECCHYMOSIS, INCREASED WARMTH, AND/OR SKIN ERUPTIONS NOTED. . ASSESSMENTS MYALGIA, OTHER SITE - M79.18 (PRIMARY) LOW BACK PAIN - M54.5 OTHER CHRONIC PAIN - G89.29 TREATMENT MYALGIA, OTHER SITE START BELBUCA FILM, 75 MCG, 1 FILM TO THE GUM, BUCALLY, ONCE A DAY, 30 DAYS, 30 NOTES: TPI BILATERAL LOW BACK. CLINICAL NOTES: 54-YEAR-OLD FEMALE IN FOR POST TPI FOLLOW-UP. GIVEN PRESENTING SYMPTOMS AND RESULTS OF PHYSICAL EXAMINATION RECOMMENDED THE LATERAL LOW BACK TPI WITH POST PROCEDURAL FOLLOW-UP, AND STARTING BELBUCA. PATIENT HAS EXPRESSED UNDERSTANDING OF AND WAS IN AGREEMENT WITH TREATMENT PLAN. GIVEN TIME TO ASK QUESTIONS AND EXPRESS CONCERNS., ISTOP REGISTRY REVIEWED AND DEMONSTRATES COMPLLIANCE. (REF # [id number] ) BRINGS IN MEDICATIONS WHICH IS APPROPRIATE FOR WHAT WAS DISPENSED. RECENT URINE TOXICOLOGY REVIEWED. NO UNAUTHORIZED MEDICATIONS. NO ILLICIT SUBSTANCES AND PRESCRIBED MEDICATIONS WERE PRESENT. PATIENT HAS ISSUES WITH ADEHIVSES.WE ARE TRYING TO LIMIT TOTAL MORPHINE MILLEQUIVALENTS, NUMBER OF PRESCRIPTIONS ISSUED AND C II MEDICATIONS PER CLINICAL GUIDELINES AND BELBUCA WOULD BE INDICATED TO MEET THIS CRITERIA. I AM ALSO USING BELBUCA TO MINIMIZE POTENTIAL FOR SIDE EFFECTS ASSOCIATED WITH C II NARCOTICS AND MUSCLE RELAXANTS IN THE ELDERLY POPULATION AND IN PATIENTS AT RISK FOR RESPIRATORY DEPRESSION. OTHERS NOTES: BUPRENORPHINE SUBLINGUAL AND BUCCAL MATERIAL WAS PRINTED. PROCEDURE CODES FA211 ESTABILISHED PATIENT [facility] CHARGE DISPOSITION & COMMUNICATION FOLLOW UP POST PROCEDURE (REASON: TPI BILATERAL LOW BACK ) ELECTRONICALLY SIGNED BY TRA ACOSTA ON 04/17/2019 AT 09:02 AM EST DISCLAIMER : THIS IS A VISIT SUMMARY EXTRACTED FROM THE [employer] CHART. IT IS NOT A COPY OF THE [employer] PROGRESS NOTE. RITA
== END ==
LOC: M PAIN 13:45
PROVIDERS: ATTEND Family Medicine
DX: M79.18 Myalgia, other site (principal); M54.5 Low back pain; G89.29 Other chronic pain; G43.909 Migraine, unspecified, not intractable, without status migrainosus; Z86.59 Personal history of other mental and behavioral disorders; E78.5 Hyperlipidemia, unspecified; K21.9 Gastro-esophageal reflux disease without esophagitis; I10 Essential (primary) hypertension; Z87.891 Personal history of nicotine dependence; Z88.1 Allergy status to other antibiotic agents; Z88.8 Allergy status to other drugs, medicaments and biological substances; Z86.14 Personal history of Methicillin resistant Staphylococcus aureus infection; Z79.01 Long term (current) use of anticoagulants; E66.01 Morbid (severe) obesity due to excess calories; Z68.42 Body mass index [BMI] 45.0-49.9, adult; Z79.899 Other long term (current) drug therapy

== ENCOUNTER 2019-04-22 09:18 | Emergency (ER) | payer OTHER ==
[~2019-04-22] VITALS: Ht 157.5 cm; Wt 111.5 kg
[2019-04-22] MEDS ORDERED: BELB75MI SL (09:25)
[2019-04-22] MEDS ORDERED: ACETAMINOPHEN 325 MG TAB PO ONE (10:00)
[2019-04-22] MEDS ORDERED: BENZONATATE 100 MG CAP PO ONE (10:00)
[2019-04-22 10:07] LABS: BASO % 0.3 % (0.0-1.0); EOS % 0.3 % (0.0-3.0); HEMATOCRIT 42.9 % (36.0-47.0); HEMOGLOBIN 13.9 g/dl (12.0-15.5); LYMPH # 0.8 10^3/uL (1.5-5.0); LYMPH % 22.3 % (24.0-44.0); MEAN CORPUSCULAR HEMOGLOBIN 29.7 pg (27.0-33.0); MEAN CORPUSCULAR HGB CONC 32.4 g/dl (32.0-36.5); MEAN CORPUSCULAR VOLUME 91.7 fl (80.0-96.0); MONO # 0.5 10^3/uL (0.0-0.8); MONO % 15.1 % (0.0-5.0); NEUTROPHILS # 2.2 10^3/uL (1.5-8.5); NEUTROPHILS % 61.7 % (36.0-66.0); PLATELET COUNT, AUTOMATED 151 10^3/uL (150-450); RED BLOOD COUNT 4.68 10^6/uL (4.00-5.40); WHITE BLOOD COUNT 3.5 10^3/uL (4.0-10.0)
--- NOTE | 2019-04-22 10:10 | REP ---
Clinical: Cough. Technique: PA and lateral. Comparison: 04/08/2019. 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 No acute process appreciated. Impression: Stable chest x-ray. No acute process. Electronically Signed by Fletcher Serna MD 04/22/2019 10:02 A
[2019-04-22 10:27] LABS: INFLUENZA A AMPLIFICATION POSITIVE (NEGATIVE); INFLUENZA B AMPLIFICATION NEGATIVE (NEGATIVE)
[2019-04-22 11:27] VITALS: BP 137/89
[2019-04-23] MEDS ORDERED: ONDA4TAB6 PO (17:23)
== END 2019-04-22 11:32 | disposition home or self-care (01) ==
LOC: M ED 09:18
DX: J09.X2 Influenza due to identified novel influenza A virus with other respiratory manifestations (principal); Z20.828 Contact with and (suspected) exposure to other viral communicable diseases; I11.0 Hypertensive heart disease with heart failure; I50.9 Heart failure, unspecified; E78.5 Hyperlipidemia, unspecified; M79.7 Fibromyalgia; Z88.0 Allergy status to penicillin; Z88.8 Allergy status to other drugs, medicaments and biological substances; Z88.2 Allergy status to sulfonamides; Z88.1 Allergy status to other antibiotic agents; Z79.899 Other long term (current) drug therapy; Z79.01 Long term (current) use of anticoagulants

== ENCOUNTER 2019-04-23 10:20 | Emergency (ER) | payer OTHER ==
[~2019-04-23] VITALS: Ht 157.5 cm; Wt 108.8 kg
[~2019-04-23 10:20] MED LIST changes: +BELB75MI SL
[2019-04-23] MEDS ORDERED: ONDANSETRON 4 MG ORAL DISINTEGRATING TAB (Q0162 PER 1MG) PO ONE (15:00)
[2019-04-23] MEDS ORDERED: ONDANSETRON 4MG/2ML VIAL (J2405) IV ONE (15:30)
[2019-04-23 15:37] LABS: BASO % 0.4 % (0.0-1.0); EOS % 0.8 % (0.0-3.0); HEMATOCRIT 43.9 % (36.0-47.0); LYMPH # 1.4 10^3/uL (1.5-5.0); LYMPH % 51.7 % (24.0-44.0); MEAN CORPUSCULAR HEMOGLOBIN 29.4 pg (27.0-33.0); MEAN CORPUSCULAR HGB CONC 31.9 g/dl (32.0-36.5); MEAN CORPUSCULAR VOLUME 92.2 fl (80.0-96.0); MONO # 0.5 10^3/uL (0.0-0.8); MONO % 19.6 % (0.0-5.0); NEUTROPHILS % 27.1 % (36.0-66.0); PLATELET COUNT, AUTOMATED 143 10^3/uL (150-450); RED BLOOD COUNT 4.76 10^6/uL (4.00-5.40); WHITE BLOOD COUNT 2.7 10^3/uL (4.0-10.0)
[2019-04-23 16:11] LABS: NEUTROPHILS # 0.7 10^3/uL (1.5-8.5)
[2019-04-23] MEDS ORDERED: ONDA4TAB6 PO (17:23)
[2019-04-23 17:25] VITALS: BP 140/73
--- NOTE | 2019-04-23 20:13 | ECGEPIP ---
[facility] - ED Test Date: 2019-04-23 Pat Name: SMITH VIVEROS Department: Room: - Gender: Female Pediatric Dietician: [facility] : 1965 Requested By: Barrie Kline Order Number: [id number] Reading MD: Mouna Smith Measurements Intervals [place] Rate: 104 P: 17 AL: 143 QRS: 4 QRSD: 84 T: 15 QT: 327 QTc: 432 Interpretive Statements SINUS TACHYCARDIA WITH FREQUENT SUPRAVENTRICULAR PREMATURE COMPLEXES NONSPECIFIC T-WAVE ABNORMALITY ABNORMAL RHYTHM ECG INCREASED RATE/ECTOPY 04/08/19 Electronically Signed on 04-23-2019 20:13:26 EST by Mouna Smith
== END 2019-04-23 17:28 | disposition home or self-care (01) ==
LOC: M ED 10:20
DX: R11.2 Nausea with vomiting, unspecified (principal); I11.0 Hypertensive heart disease with heart failure; I50.9 Heart failure, unspecified; I48.91 Unspecified atrial fibrillation; E78.5 Hyperlipidemia, unspecified; G47.30 Sleep apnea, unspecified; Z79.899 Other long term (current) drug therapy; Z79.01 Long term (current) use of anticoagulants; Z88.0 Allergy status to penicillin; Z88.1 Allergy status to other antibiotic agents; Z88.2 Allergy status to sulfonamides; Z88.8 Allergy status to other drugs, medicaments and biological substances
CPT/HCPCS: 36415; 80047; 85025; 93005; 99284; Q0162

== ENCOUNTER 2019-05-11 19:29 | Emergency (ER) | payer OTHER ==
[~2019-05-11] VITALS: Ht 157.5 cm; Wt 111.9 kg
[2019-05-11 19:29] VITALS: BP 171/79
[2019-05-11] MEDS ORDERED: KETOROLAC 60 MG/2 ML VIAL (J1885) IM ONE (20:45)
--- NOTE | 2019-05-11 21:07 | ECGEPIP ---
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
== END 2019-05-11 22:06 | disposition home or self-care (01) ==
LOC: M ED 19:29
DX: S16.1XXA Strain of muscle, fascia and tendon at neck level, initial encounter (principal); S43.402A Unspecified sprain of left shoulder joint, initial encounter; X58.XXXA Exposure to other specified factors, initial encounter; Y92.9 Unspecified place or not applicable; Y93.9 Activity, unspecified; Y99.9 Unspecified external cause status; M79.7 Fibromyalgia; K21.9 Gastro-esophageal reflux disease without esophagitis; E66.9 Obesity, unspecified; F60.9 Personality disorder, unspecified; Z86.718 Personal history of other venous thrombosis and embolism; Z79.01 Long term (current) use of anticoagulants; Z79.899 Other long term (current) drug therapy; Z88.0 Allergy status to penicillin; Z88.1 Allergy status to other antibiotic agents; Z88.8 Allergy status to other drugs, medicaments and biological substances
CPT/HCPCS: 93005; 96372; 99284; J1885

== ENCOUNTER → 2019-05-12 | Outpatient (CLI) | payer OTHER ==
[~2019-05-12] MED LIST changes: +BUPIVACAINE HCL 0.25% 30 ML VIAL As Ordered ONE; +NYST1POW9 TOP; +ONDANSETRON 4 MG ORAL DISINTEGRATING TAB (Q0162 PER 1MG) As Ordered ONE; +TRIAMCINOLONE ACETONIDE SUSP 40 MG/ML VIAL (J3301) As Ordered ONE; +diazePAM 5 MG TAB As Ordered ONE; +diphenhydrAMINE 25 MG CAP As Ordered ONE; +oxyCODONE 5MG TAB As Ordered ONE
--- NOTE | 2019-05-20 02:46 | ECWPNPC ---
PATIENT NAME: SMITH VIVEROS : 1965 GENDER: FEMALE VISIT DATE: 05/12/2019 DISCHARGE DATE: 05/12/19 1458 VISIT LOCKED DATE TIME: PHYSICIAN: ARELIS MILLER MD RESOURCE: ARELIS MILLER MD REASON FOR APPOINTMENT 1. TPI BILAT LOW BACK HISTORY OF PRESENT ILLNESS HISTORY OF PRESENT ILLNESS: PAIN THE PATIENT DESCRIBES THE PAIN... FALL RISK SCREENING: SCREENING :NO FALLS REPORTED IN THE LAST YEAR CURRENT MEDICATIONS TAKING NITROGLYCERIN 0.4 MG TABLET SUBLINGUAL DIRECTED SUBLINGUAL EVERY 5 MIN: MDD 3 TABLETS, NOTES: PRN TAKING SUCRALFATE 1 GM TABLET 1 TABLET ORALLY TWICE A DAY, NOTES: 05/12/2019 0800 TAKING ELIQUIS 5 MG TABLET 1 TAB(S) ORALLY TWICE DAILY, NOTES: 05/12/2019 0800 TAKING PROTONIX 40 MG TABLET DELAYED RELEASE 1 TABLET ORALLY BID, NOTES: 05/12/2019 0800 TAKING METOPROLOL SUCCINATE 25 MG CAPSULE ER 24 HOUR SPRINKLE 1 CAPSULE ORALLY ONCE A DAY, NOTES: 05/12/2019 0800 TAKING BELBUCA 75 MCG FILM 1 FILM TO THE GUM BUCALLY ONCE A DAY, NOTES: 05/12/2019 0800 NOT-TAKING ROBAXIN 500 MG TABLET 1.5 TABLETS ORALLY EVERY 4 HRS NOT-TAKING PAROXETINE HCL 30 MG TABLET 1 TABLET IN THE MORNING ORALLY ONCE A DAY MEDICATION LIST REVIEWED AND RECONCILED WITH THE PATIENT PAST MEDICAL HISTORY FIBROMYALGIA DX 4 YEARS AGO, BEING FOLLOWED AT PAIN CLINIC MIGRAINE HEADACHE STRESS INCONTINENCE DEPRESSION HYPERLIPIDEMIA VITAMIN D DEFICIENCY AFIB GERD INTERMITTENT A FIB STRESS INCONTINENCE, FEMALE CHRONIC PAIN SYNDROME UNSPECIFIED VITAMIN D DEFICIENCY MIGRAINE, UNSPECIFIED WITHOUT MENTION OF INTRACTABLE MIGRAINE WITHOUT MENTION OF STATUS MIGRAINOSUS HYPERTENSION ALLERGIES ZIPSOR: ALLERGY FLEXERIL: AGGITATION - ALLERGY LYRICA: ANAPHYLAXIS - ALLERGY DICLOFENAC POTASSIUM: AGGITATION (ZIPSOR) - ALLERGY BACTRIM: NAUSEA/VOMITING - ALLERGY CYMBALTA: NAUSEA/VOMITING - SIDE EFFECTS AMITRIPTYLINE: AGGITATION - SIDE EFFECTS GABAPENTIN: HALLUCINATIONS - SIDE EFFECTS TIZANIDINE HCL: HIVES - ALLERGY KETOROLAC TROMETHAMINE: STOMACH PAIN - ALLERGY SURGICAL HISTORY TUBAL LIGATION 1988 DISTAL 4TH FINGER REPAIR SECONDARY TO TRAUMATIC INJURY BENIGN TUMOR REMOVAL RIGHT LEG DENTAL SURGERIES CHOLECYSTECTOMY 05/2014 HYSTERECTOMY STILL HAS 1 OVARY BUT NOT SURE WHICH ONE 2012 ABSCESS R GROIN 2015 LOOP RECORDER 10/2018 LEFT SHOULDER REPAIR 02/20/19 FAMILY HISTORY FATHER: , PNEUMONIA, CHF, NEUROPATHY, BLOOD CLOT, DIAGNOSED WITH UNSPECIFIED HEART DISEASE, DIABETES, UNSPECIFIED CEREBRAL ARTERY OCCLUSION WITH CEREBRAL INFARCTION MOTHER: , CANCER, DIABETES, HYPERTENSION, UNSPECIFIED HEART DISEASE, UNSPECIFIED CEREBRAL ARTERY OCCLUSION WITH CEREBRAL INFARCTION, OTHER MALIGNANT NEOPLASM OF UNSPECIFIED SITE SIBLINGS: ALIVE, LUPUS, DIABETES SON(S): ALIVE DAUGHTER(S): ALIVE 2 BROTHER(S) , 5 SISTER(S) . 1 SON(S) , 1 DAUGHTER(S) - HEALTHY. SOCIAL HISTORY GENERAL: TOBACCO USE ARE YOU A:FORMER SMOKER HOW LONG HAS IT BEEN SINCE YOU LAST SMOKED?5-10 YEARS VAPORNO E-CIGARETTEYES HIV / HEP-C SCREENING HIV TEST OFFERED TO PATIENT:YES DATE OFFERED:10/26/2017 TEST ACCEPTED:NO HEP-C TEST OFFERED TO PATIENT:NO REASON:PATIENT DECLINED BROCHURE PROVIDED TO PATIENTNO OTHERS AT HOME: [id number], BROTHER, NEPHEW AND BOYFRIEND. DIET: REGULAR. LANGUAGE EAST TIMOR[place]. DOMESTIC VIOLENCE DO YOU FEEL SAFE IN YOUR ENVIRONMENT?YES NEW PATIENT PAIN DIARY FROM 0-10, WHAT LEVEL IS YOUR PAIN TODAY?10 BMI CARE GOAL FOLLOW-UP ABOVE NORMAL BMI FOLLOW-UPLIFESTYLE EDUCATION REGARDING DIET RECREATIONAL DRUG USE DRUG USE?NO EXERCISE: NO REGULAR EXERCISE. LEARNING BARRIERS / SPECIAL NEEDS CHANGE FROM LAST VISIT?NO BARRIERS TO LEARNING?NO HEARING IMPAIRED?NO VISION IMPAIRED?YES COGNITIVELY IMPAIRED?NO :CORRECTIVE LENSES READINESS TO LEARN?YES LEARNING PREFERENCES?NO LEARNING CAPABILITIES PRESENT?YES EMOTIONAL BARRIERS?YES SPECIAL DEVICES?NO PAIN CLINIC PFS, CLERGY, PUBLIC HEALTH REFERRALS PFS REFERRAL NEEDED?NO CLERGY REFERRAL NEEDED?NO PUBLIC HEALTH REFERRAL NEEDED?NO WAS THE PROVIDER NOTIFIED OF ANY PERTINENT INFO?NO N/A HAS THE PATIENT BEEN EDUCATED REGARDING HIS/HER PLAN OF CARE?YES HAS THE PATIENT BEEN EDUCATED REGARDING PAIN, THE RISK FOR PAIN, THE IMPORTANCE OF EFFECTIVE PAIN MANAGEMENT, AND THE PAIN ASSESSMENT PROCESS?YES LATEX QUESTIONNAIRE LATEX ALLERGY : HAVE YOU EVER DEVELOPED ANY TYPE OF REACTION AFTER HANDLING LATEX PRODUCTS SUCH RUBBER GLOVES, CONDOMS, DIAPHRAGMS, BALLOONS, SOCKS, OR UNDERWEAR?NO LATEX ALLERGY : HAVE YOU EVER DEVELOPED ANY TYPE OF REACTION DURING OR AFTER DENTAL APPOINTMENT, VAGINAL/RECTAL EXAMINATION, SURGICAL PROCEDURE, OR ANY OTHER EXPOSURE?NO LATEX RISK : HAVE YOU EVER HAD ANY DIFFICULTY BREATHING OR HIVES AFTER EATING OR HANDLING ANY FRUITS, OR VEGETABLES; SUCH KIWI, BANANAS, STONE FRUITS, OR CHESTNUTSNO LATEX RISK : DO YOU HAVE A PREVIOUS PERSONAL HISTORY OF MORE THAN NINE SURGERIES, SPINA BIFIDA, OR REPEATED CATHERIZATIONS? YES - PLEASE INDICATE : > 9 SURGERIES LATEX RISK : ARE YOU FREQUENTLY EXPOSED TO LATEX PRODUCTS IN YOUR OCCUPATION?NO DATE ASKED : 04/25/2019 CAFFEINE CAFFEINE USE?YES ADVANCE DIRECTIVE ADVANCE DIRECTIVE DISCUSSED WITH PATIENT:YES PT HAS NO ADVANCED DIRECTIVES, DECLINES HCP INFORMATION AND ASSISTANCE WITH FORM AT THIS TIME. HINDUISM NO MOSQUE BELIEFS THAT WOULD IMPACT HEALTH CARE. MARITAL STATUS: .. ALCOHOL SCREENING DID YOU HAVE A DRINK CONTAINING ALCOHOL IN THE PAST YEAR?NO POINTS0 INTERPRETATIONNEGATIVE OCCUPATION: UNEMPLOYED. SEXUAL HX HAD SEX IN THE LAST 12 MONTHS (VAGINAL, ORAL, OR ANAL)?NO HAVE YOU EVER HAD AN STD?NO 08/15/17 1025 REVIEWED WITH PT. AD03/15/2018 1508 REVIEWED WITH PT LAS03/27/18 1116 REVIEWED WITH PT BVREVIEWED WITH PATIENT 06/24/18 1028 JSREVIEWED WITH PATIENT 07/24/18 1257 JSREVIEWED WITH PT 09/30/18 1042 BVPRE PROCEDURE PHONE CALL COMPLETED 03/14/19 1201 NLJPRE PROCEDURE PHONE CALL COMPLETED 04/25/2019 1105 NLJ- PT STATES SHE NEEDS TO BE IN PROCEDURE ROOM FOR TPI DUE TO ISSUES IN THE PAST AND STATES SHE ALWAYS HAS A SL FOR PROCEDURESREVIEWED WITH PATIENT 05/12/2019 1328 NLJ. HOSPITALIZATION/MAJOR DIAGNOSTIC PROCEDURE ABOVE SURGERIES MRSA RIGHT GROIN 2015, C DIFF 2015 CHEST PAIN 10/20/2016 [facility] 09/2017 DIVERTICULITIS AND /HYPOTENSION 06/2018 SYNCOPE 09/2018 A-FIB AND LOOP RECORDER 10/2018 REVIEW OF SYSTEMS REVIEWED BY: PROVIDER: . CONSTITUTIONAL: ANY CHANGE IN YOUR MEDICAL CONDITION? YES- LEFT SHOULDER PAIN . CHILLS NO . FEVER NO . INFECTION: DO YOU HAVE NEW INFECTIONS? NO . DO YOU HAVE HISTORY OF MRSA? YES . MUSCULOSKELETAL: ANY NEW PATTERNS OF PAIN OR NUMBNESS? NO . GASTROENTEROLOGY: ANY NEW CHANGE IN BOWEL CONTROL? NO . GENITOURINARY: ANY NEW CHANGE IN BLADDER CONTROL? NO . IS THERE A CHANCE YOU COULD BE ? NO . HEMATOLOGY/LYMPH: DO YOU TAKE ANY BLOOD THINNERS? (FOR EXAMPLE- COUMADIN, PLAVIX, AGGRENOX, PLATEL, PRADAXA, OR XARELTO) YES- ELIQUIS 5 MG DAILY . WHEN WAS YOUR LAST DOSE? DATE:05/12/2019 TIME: 0800 . NEUROLOGY: HAVE YOU FALLEN IN THE PAST 12 MONTHS? YES- FELL 4 DAYS AGO, LEGS GOT WEAK, STATES NO INJURIES AND NO MEDICAL CARE RECEIVED . ANY NEW EXTREMITY NUMBNESS OR WEAKNESS? YES- LEFT SHOULDER WEAKNESS . CARDIOLOGY: DO YOU HAVE A PACEMAKER OR DEFIBRILLATOR? YES- LOOP RECORDER . RESPIRATORY: HAVE YOU BEEN SICK IN THE PAST WEEK? NO . FEVER NO . FLU LIKE SYMPTOMS? NO . COUGH NO . INTEGUMENTARY: DO YOU HAVE ANY RASHES OR OPEN SORES? NO . ALLERGIC/IMMUNO: ARE YOU ALLERGIC TO IV DYE? NO . ANY NEW ALLERGIES? NO . PSYCHIATRIC: DO YOU HAVE THOUGHTS OF HURTING YOURSELF OR SOMEONE ELSE? NO . ARE YOU ABUSED, NEGLECTED, OR IN AN UNSAFE ENVIRONMENT? NO . ENDOCRINOLOGY: ARE YOU DIABETIC? NO . OTHER: DO YOU NEED ANY PRESCRIPTIONS? NO . IF YES, PLEASE LIST: ____ . ANY NEW PROBLEMS WITH YOUR MEDICATIONS? NO . WHEN DID YOU LAST EAT? 05/11/20191999 . WHEN DID YOU LAST DRINK? 05/12/2019 0800 . WHAT DID YOU LAST DRINK? WATER . NAME OF PERSON DRIVING YOU HOME? TAXI . DO YOU HAVE ANY OTHER QUESTIONS OR CONCERNS NO . VITAL SIGNS WT 245 LBS, HT 61 IN, BMI 46.29 INDEX, BP 141/97 MM HG, HR 73 /MIN, RR 18 /MIN, TEMP 97.6 F, OXYGEN SAT % 95%, SAFE IN ENV? (Y/N) YES, REVIEWED BY: NLMarco Antonio. ASSESSMENTS MYALGIA, OTHER SITE - M79.18 (PRIMARY) PROCEDURES PN TRIGGER POINT INJECTION WITH STEROIDS PRE PROCEDURE DIAGNOSIS 1. MYALGIA 2. PAIN AT BILATERAL LUMBAR AREA. POST PROCEDURE DIAGNOSIS 1. MYALGIA 2. PAIN AT BILATERAL LUMBAR AREA. PROCEDURE TRIGGER POINT INJECTION AT RIGHT AND LEFT LOW BACK AREA. SURGEON DR. ARELIS MILLER MANAGER HEAVY EQUIPMENT NONE ANESTHESIA LOCAL PRE PROCEDURE NOTE THE PATIENT HAS A HISTORY OF CHRONIC PAIN AT THE RIGHT AND LEFT LOW BACK AREA. I EVALUATED THE PATIENT AND REVIEWED THE CHART. THERE IS EVIDENCE OF BANDS OF TISSUE WITH RESTRICTION OF MOVEMENT AND PRESENCE OF TRIGGER POINT AT THE AFFECTED AREA. I WENT OVER THE RISKS, ALTERNATIVES, AND BENEFITS ASSOCIATED WITH THIS PROCEDURE. THE PATIENT WOULD LIKE TO PROCEED AND GIVES CONSENT TO PERFORM THE PROCEDURE. THE PATIENT DENIES UNEXPLAINABLE WEIGHT LOSS, FEVER, CHILLS, OR NEW CHANGES IN URINARY OR BOWEL CONTROL DESCRIPTION OF PROCEDURE THE PATIENT WAS BROUGHT TO THE PROCEDURE ROOM AND PLACED IN THE SITTING POSITION. THE AREA WAS CLEANED WITH ALCOHOL. THE PROCEDURE WAS DONE USING ASEPTIC STERILE TECHNIQUE. I CHECKED LATERALITY AND THE LEVEL WHERE THE PROCEDURE WAS GOING TO BE PERFORMED WITH THE PATIENT AND THE SUPPORTING STAFF AT THE MOMENT OF THE TIME OUT IN THE PROCEDURE ROOM. USING A 25-GAUGE NEEDLE, TRIGGER POINTS WERE INJECTED AT THE RIGHT AND LEFT LOW BACK AREA WITH A TOTAL OF 40 ML OF BUPIVACAINE 0.25% AND KENALOG 40 MG. THERE WAS NO EVIDENCE OF BLOOD, PARESTHESIA OR CEREBROSPINAL FLUID DURING THE PROCEDURE. THE PATIENT WAS SENT TO THE RECOVERY ROOM. THE PATIENT WAS MOVING THE EXTREMITIES AND DOING WELL. THERE WAS NO COMPLICATION DURING THE PROCEDURE POST PROCEDURE NOTE THE PATIENT WILL BE SEEN IN A FOLLOW UP IN THE NEXT FEW WEEKS. INSTRUCTIONS WERE GIVEN, QUESTIONS WERE ANSWERED, AND THE PATIENT EXPRESSED UNDERSTANDING AND AGREES WITH THE PLAN. I, GABINO MIXON, DOCUMENTED THE ABOVE INFORMATION ACTING A SCRIBE FOR DR. MILLER. I HAVE REVIEWED THE ABOVE DOCUMENT, WRITTEN BY GABINO PALMER AND I VERIFY THAT IT IS ACCURATE. PROCEDURE CODES 54939 INJ TRIGGER POINT 03/13 [facility] [place] [facility] & COMMUNICATION FOLLOW UP 3 WEEKS ELECTRONICALLY SIGNED BY ARELIS MILLER MD, MD ON 05/19/2019 AT 03:31 PM EDT DISCLAIMER : THIS IS A VISIT SUMMARY EXTRACTED FROM THE Next[employer] CHART. IT IS NOT A COPY OF THE Next[employer] PROGRESS NOTE. RITA
== END ==
LOC: M PAIN 13:15
PROVIDERS: ATTEND Anesthesiology
DX: M79.18 Myalgia, other site (principal)
CPT/HCPCS: 20552; J3301; Q0162

== ENCOUNTER 2019-05-18 01:03 | Emergency (ER) | payer OTHER ==
[~2019-05-18] VITALS: Ht 157.5 cm; Wt 113.6 kg
[~2019-05-18 01:03] MED LIST changes: -BUPIVACAINE HCL 0.25% 30 ML VIAL As Ordered ONE; -NYST1POW9 TOP; -ONDANSETRON 4 MG ORAL DISINTEGRATING TAB (Q0162 PER 1MG) As Ordered ONE; -TRIAMCINOLONE ACETONIDE SUSP 40 MG/ML VIAL (J3301) As Ordered ONE; -diazePAM 5 MG TAB As Ordered ONE; -diphenhydrAMINE 25 MG CAP As Ordered ONE; -oxyCODONE 5MG TAB As Ordered ONE
[2019-05-18 04:53] LABS: BASO % 0.3 % (0.0-1.0); EOS % 0.5 % (0.0-3.0); HEMATOCRIT 45.4 % (36.0-47.0); HEMOGLOBIN 15.1 g/dl (12.0-15.5); LYMPH # 2.3 10^3/uL (1.5-5.0); LYMPH % 36.3 % (24.0-44.0); MEAN CORPUSCULAR HEMOGLOBIN 29.9 pg (27.0-33.0); MEAN CORPUSCULAR HGB CONC 33.3 g/dl (32.0-36.5); MEAN CORPUSCULAR VOLUME 89.9 fl (80.0-96.0); MONO # 0.5 10^3/uL (0.0-0.8); MONO % 8.5 % (0.0-5.0); NEUTROPHILS # 3.4 10^3/uL (1.5-8.5); NEUTROPHILS % 53.6 % (36.0-66.0); PLATELET COUNT, AUTOMATED 193 10^3/uL (150-450); RED BLOOD COUNT 5.05 10^6/uL (4.00-5.40); WHITE BLOOD COUNT 6.4 10^3/uL (4.0-10.0)
[2019-05-18 05:06] LABS: INR 0.95; PROTHROMBIN TIME 12.4 SECONDS (11.8-14.0)
[2019-05-18 05:07] LABS: PARTIAL THROMBOPLASTIN TIME 20.5 SECONDS (25.0-38.4)
[2019-05-18] MEDS ORDERED: NS 1,000 ML IV ONE (05:15)
[2019-05-18 05:18] LABS: BLOOD UREA NITROGEN 13 MG/DL (7-18); CALCIUM LEVEL 8.9 MG/DL (8.5-10.1); CARBON DIOXIDE LEVEL 27 MEQ/L (21-32); CHLORIDE LEVEL 111 MEQ/L (98-107); CK-MB VALUE MASS < 1.0 NG/ML (<3.6); CPK CREATINE PHOSPHOKINASE 60 U/L (26-192); CREATININE FOR GFR 0.83 MG/DL (0.55-1.30); GLOMERULAR FILTRATION RATE > 60.0 (>51); GLUCOSE, FASTING 100 MG/DL (70-100); MB/CK RELATIVE INDEX 1.67 (< OR =4); NT-PRO BNP 379 PG/ML (<125); SODIUM LEVEL 143 MEQ/L (136-145); TROPONIN I < 0.02 NG/ML (< 0.10)
[2019-05-18] MEDS ORDERED: MORPHINE 10 MG/ML 1ML VIAL (J2270) IM ONE (06:00)
[2019-05-18] MEDS ORDERED: NYST1POW9 TOP (06:45)
[2019-05-18] MEDS ORDERED: OXYCODONE/APAP 5MG/325MG(BULK FOR ED) 1 TABLET PO ONE (06:45)
[2019-05-18 07:06] VITALS: BP 168/98
--- NOTE | 2019-05-18 07:56 | ECGEPIP ---
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
--- NOTE | 2019-05-18 09:04 | REP ---
Chest x-ray: Two views. History: Chest pain. Comparison chest x-ray: April 22, 2019. Comparison CT study of the chest is from May 27, 2015. Findings: There is a granulomatous nodule in the left base unchanged. A loop recorder is seen in the left precordial soft tissues. The lungs are otherwise well inflated and clear. Pleural angles are sharp. Heart size is normal. Pulmonary vasculature is not increased. No significant bony abnormality is seen. Impression: No active disease. Electronically Signed by Dominic Chao MD 05/18/2019 09:58 A
== END 2019-05-18 07:17 | disposition home or self-care (01) ==
LOC: M ED 01:03
DX: R07.1 Chest pain on breathing (principal); R06.02 Shortness of breath; I48.91 Unspecified atrial fibrillation; I25.10 Atherosclerotic heart disease of native coronary artery without angina pectoris; I10 Essential (primary) hypertension; E78.5 Hyperlipidemia, unspecified; Z79.01 Long term (current) use of anticoagulants; Z79.899 Other long term (current) drug therapy; Z88.0 Allergy status to penicillin; Z88.1 Allergy status to other antibiotic agents; Z88.8 Allergy status to other drugs, medicaments and biological substances
CPT/HCPCS: 71046; 80048; 82550; 82553; 83880; 85025; 85610; 85730; 93005; 93041; 94760; 96372; 99284; J2270

== ENCOUNTER 2019-05-22 18:20 | Emergency (ER) | payer OTHER ==
[~2019-05-22] VITALS: Ht 157.5 cm; Wt 110.2 kg
[~2019-05-22 18:20] MED LIST changes: +NYST1POW9 TOP
[2019-05-22] MEDS ORDERED: MECL-58 (18:37)
[2019-05-22] MEDS ORDERED: NS 1,000 ML IV ONE (19:00)
--- NOTE | 2019-05-22 19:02 | ECGEPIP ---
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
[2019-05-22 19:33] LABS: BASO % 0.3 % (0.0-1.0); EOS # 0.1 10^3/uL (0.0-0.5); EOS % 1.1 % (0.0-3.0); HEMATOCRIT 42.1 % (36.0-47.0); LYMPH # 2.2 10^3/uL (1.5-5.0); LYMPH % 33.6 % (24.0-44.0); MEAN CORPUSCULAR HGB CONC 33.3 g/dl (32.0-36.5); MEAN CORPUSCULAR VOLUME 90.1 fl (80.0-96.0); MONO # 0.5 10^3/uL (0.0-0.8); MONO % 6.9 % (0.0-5.0); NEUTROPHILS # 3.8 10^3/uL (1.5-8.5); NEUTROPHILS % 57.6 % (36.0-66.0); PLATELET COUNT, AUTOMATED 197 10^3/uL (150-450); RED BLOOD COUNT 4.67 10^6/uL (4.00-5.40); WHITE BLOOD COUNT 6.6 10^3/uL (4.0-10.0)
[2019-05-22 20:05] LABS: ALBUMIN 3.1 GM/DL (3.2-5.2); ALT/SGPT 24 U/L (12-78); BILIRUBIN,DIRECT < 0.1 MG/DL (0.0-0.2); BILIRUBIN,TOTAL 0.3 MG/DL (0.2-1.0); BLOOD UREA NITROGEN 11 MG/DL (7-18); CALCIUM LEVEL 8.6 MG/DL (8.5-10.1); CARBON DIOXIDE LEVEL 28 MEQ/L (21-32); CHLORIDE LEVEL 110 MEQ/L (98-107); CK-MB VALUE MASS < 1.0 NG/ML (<3.6); CPK CREATINE PHOSPHOKINASE 93 U/L (26-192); CREATININE FOR GFR 0.81 MG/DL (0.55-1.30); GLOMERULAR FILTRATION RATE > 60.0 (>51); GLUCOSE, FASTING 112 MG/DL (70-100); LIPASE 272 U/L (73-393); MB/CK RELATIVE INDEX 1.08 (< OR =4); POTASSIUM SERUM 3.7 MEQ/L (3.5-5.1); SODIUM LEVEL 143 MEQ/L (136-145); TOTAL PROTEIN 6.3 GM/DL (6.4-8.2); TROPONIN I 0.02 NG/ML (< 0.10)
[2019-05-22 20:35] VITALS: BP 139/82
--- NOTE | 2019-05-23 03:19 | REP ---
Clinical: Chest pain . Comparison: 05/18/2019 . Findings: The mediastinum and cardiac silhouette are stable and within normal limits for portable technique. The lung thomason are clear without acute consolidation, effusion, or pneumothorax. Skeletal structures are intact. Impression: No acute cardiopulmonary process appreciated. Electronically Signed by Fletcher Serna MD 05/23/2019 03:11 A
== END 2019-05-22 20:47 | disposition home or self-care (01) ==
LOC: M ED 18:20
DX: R55 Syncope and collapse (principal); I51.9 Heart disease, unspecified; E11.9 Type 2 diabetes mellitus without complications; I10 Essential (primary) hypertension; Z79.01 Long term (current) use of anticoagulants; Z79.899 Other long term (current) drug therapy; Z88.0 Allergy status to penicillin; Z88.1 Allergy status to other antibiotic agents; Z88.8 Allergy status to other drugs, medicaments and biological substances

== ENCOUNTER → 2019-05-28 | Outpatient (CLI) | payer OTHER ==
[~2019-05-28] MED LIST changes: +MECL-58
--- NOTE | 2019-05-30 00:50 | ECWPNPC ---
PATIENT NAME: SMITH VIVEROS : 1965 GENDER: FEMALE VISIT DATE: 05/28/2019 DISCHARGE DATE: 05/28/19 1021 VISIT LOCKED DATE TIME: PHYSICIAN: ANISA LOCO RESOURCE: ANISA LOCO REASON FOR APPOINTMENT 1. POST TPI HISTORY OF PRESENT ILLNESS HISTORY OF PRESENT ILLNESS: PAIN THE PATIENT DESCRIBES THE PAINAFTER THE PROCEDURE SEVERITY - PAIN SCORE OF10/10 LOCATIONSLOWER BACK QUALITYSTABBING, TENDER, SHOOTING DURATIONCONTINUOUS, ALL DAY, AWAKENS FROM SLEEEP 54-YEAR-OLD FEMALE IN FOR POST TPI FOLLOW-UP. PATIENT REPORTS THE PROCEDURE INEFFECTIVE. SHE RATES HER PAIN CURRENTLY AT A 10+ OUT OF 10 AND DESCRIBES IT SHARP, STABBING, SHOOTING, AND TENDER. PATIENT WAS STARTED ON BELBUCA AT LAST CLINIC VISIT AND ADMITS TODAY THAT SHE HAS FOUND THIS TO CAUSE SLEEPINESS. FALL RISK SCREENING: SCREENING :NO FALLS REPORTED IN THE LAST YEAR CURRENT MEDICATIONS TAKING NITROGLYCERIN 0.4 MG TABLET SUBLINGUAL DIRECTED SUBLINGUAL EVERY 5 MIN: MDD 3 TABLETS, NOTES: PRN TAKING SUCRALFATE 1 GM TABLET 1 TABLET ORALLY TWICE A DAY, NOTES: 05/12/2019 0800 TAKING ELIQUIS 5 MG TABLET 1 TAB(S) ORALLY TWICE DAILY, NOTES: 05/12/2019 0800 TAKING PROTONIX 40 MG TABLET DELAYED RELEASE 1 TABLET ORALLY BID, NOTES: 05/12/2019 08 TAKING METOPROLOL SUCCINATE 25 MG CAPSULE ER 24 HOUR SPRINKLE 1 CAPSULE ORALLY ONCE A DAY, NOTES: 05/12/2019 0800 TAKING BELBUCA 75 MCG FILM 1 FILM TO THE GUM BUCALLY ONCE A DAY, NOTES: 05/12/2019 0800 NOT-TAKING ROBAXIN 500 MG TABLET 1.5 TABLETS ORALLY EVERY 4 HRS NOT-TAKING PAROXETINE HCL 30 MG TABLET 1 TABLET IN THE MORNING ORALLY ONCE A DAY MEDICATION LIST REVIEWED AND RECONCILED WITH THE PATIENT PAST MEDICAL HISTORY FIBROMYALGIA DX 4 YEARS AGO, BEING FOLLOWED AT PAIN CLINIC MIGRAINE HEADACHE STRESS INCONTINENCE DEPRESSION HYPERLIPIDEMIA VITAMIN D DEFICIENCY AFIB GERD INTERMITTENT A FIB STRESS INCONTINENCE, FEMALE CHRONIC PAIN SYNDROME UNSPECIFIED VITAMIN D DEFICIENCY MIGRAINE, UNSPECIFIED WITHOUT MENTION OF INTRACTABLE MIGRAINE WITHOUT MENTION OF STATUS MIGRAINOSUS HYPERTENSION ALLERGIES ZIPSOR: ALLERGY FLEXERIL: AGGITATION - ALLERGY LYRICA: ANAPHYLAXIS - ALLERGY DICLOFENAC POTASSIUM: AGGITATION (ZIPSOR) - ALLERGY BACTRIM: NAUSEA/VOMITING - ALLERGY CYMBALTA: NAUSEA/VOMITING - SIDE EFFECTS AMITRIPTYLINE: AGGITATION - SIDE EFFECTS GABAPENTIN: HALLUCINATIONS - SIDE EFFECTS TIZANIDINE HCL: HIVES - ALLERGY KETOROLAC TROMETHAMINE: STOMACH PAIN - ALLERGY SURGICAL HISTORY TUBAL LIGATION 1988 DISTAL 4TH FINGER REPAIR SECONDARY TO TRAUMATIC INJURY BENIGN TUMOR REMOVAL RIGHT LEG DENTAL SURGERIES CHOLECYSTECTOMY 05/2014 HYSTERECTOMY STILL HAS 1 OVARY BUT NOT SURE WHICH ONE 2012 ABSCESS R GROIN 2014 LOOP RECORDER 10/2018 LEFT SHOULDER REPAIR 02/20/19 FAMILY HISTORY FATHER: , PNEUMONIA, CHF, NEUROPATHY, BLOOD CLOT, DIAGNOSED WITH DIABETES, UNSPECIFIED HEART DISEASE, UNSPECIFIED CEREBRAL ARTERY OCCLUSION WITH CEREBRAL INFARCTION MOTHER: , CANCER, DIABETES, HYPERTENSION, UNSPECIFIED CEREBRAL ARTERY OCCLUSION WITH CEREBRAL INFARCTION, UNSPECIFIED HEART DISEASE, OTHER MALIGNANT NEOPLASM OF UNSPECIFIED SITE SIBLINGS: ALIVE, LUPUS, DIABETES SON(S): ALIVE DAUGHTER(S): ALIVE 2 BROTHER(S) , 5 SISTER(S) . 1 SON(S) , 1 DAUGHTER(S) - HEALTHY. SOCIAL HISTORY GENERAL: TOBACCO USE ARE YOU A:FORMER SMOKER HOW LONG HAS IT BEEN SINCE YOU LAST SMOKED?5-10 YEARS VAPORNO E-CIGARETTEYES HIV / HEP-C SCREENING HIV TEST OFFERED TO PATIENT:YES DATE OFFERED:10/26/2017 TEST ACCEPTED:NO HEP-C TEST OFFERED TO PATIENT:NO REASON:PATIENT DECLINED BROCHURE PROVIDED TO PATIENTNO OTHERS AT HOME: [id number], BROTHER, NEPHEW AND BOYFRIEND. DIET: REGULAR. LANGUAGE ITALIAN. DOMESTIC VIOLENCE DO YOU FEEL SAFE IN YOUR ENVIRONMENT?YES NEW PATIENT PAIN DIARY FROM 0-10, WHAT LEVEL IS YOUR PAIN TODAY?10 BMI CARE GOAL FOLLOW-UP ABOVE NORMAL BMI FOLLOW-UPLIFESTYLE EDUCATION REGARDING DIET RECREATIONAL DRUG USE DRUG USE?NO EXERCISE: NO REGULAR EXERCISE. LEARNING BARRIERS / SPECIAL NEEDS CHANGE FROM LAST VISIT?NO BARRIERS TO LEARNING?NO HEARING IMPAIRED?NO VISION IMPAIRED?YES COGNITIVELY IMPAIRED?NO :CORRECTIVE LENSES READINESS TO LEARN?YES LEARNING PREFERENCES?NO LEARNING CAPABILITIES PRESENT?YES EMOTIONAL BARRIERS?YES SPECIAL DEVICES?NO PAIN CLINIC PFS, CLERGY, PUBLIC HEALTH REFERRALS PFS REFERRAL NEEDED?NO CLERGY REFERRAL NEEDED?NO PUBLIC HEALTH REFERRAL NEEDED?NO WAS THE PROVIDER NOTIFIED OF ANY PERTINENT INFO?NO N/A HAS THE PATIENT BEEN EDUCATED REGARDING HIS/HER PLAN OF CARE?YES HAS THE PATIENT BEEN EDUCATED REGARDING PAIN, THE RISK FOR PAIN, THE IMPORTANCE OF EFFECTIVE PAIN MANAGEMENT, AND THE PAIN ASSESSMENT PROCESS?YES LATEX QUESTIONNAIRE LATEX ALLERGY : HAVE YOU EVER DEVELOPED ANY TYPE OF REACTION AFTER HANDLING LATEX PRODUCTS SUCH RUBBER GLOVES, CONDOMS, DIAPHRAGMS, BALLOONS, SOCKS, OR UNDERWEAR?NO LATEX ALLERGY : HAVE YOU EVER DEVELOPED ANY TYPE OF REACTION DURING OR AFTER DENTAL APPOINTMENT, VAGINAL/RECTAL EXAMINATION, SURGICAL PROCEDURE, OR ANY OTHER EXPOSURE?NO DATE ASKED : 04/25/2019 LATEX RISK : HAVE YOU EVER HAD ANY DIFFICULTY BREATHING OR HIVES AFTER EATING OR HANDLING ANY FRUITS, OR VEGETABLES; SUCH KIWI, BANANAS, STONE FRUITS, OR CHESTNUTSNO LATEX RISK : DO YOU HAVE A PREVIOUS PERSONAL HISTORY OF MORE THAN NINE SURGERIES, SPINA BIFIDA, OR REPEATED CATHERIZATIONS? YES - PLEASE INDICATE : > 9 SURGERIES LATEX RISK : ARE YOU FREQUENTLY EXPOSED TO LATEX PRODUCTS IN YOUR OCCUPATION?NO CAFFEINE CAFFEINE USE?YES ADVANCE DIRECTIVE ADVANCE DIRECTIVE DISCUSSED WITH PATIENT:YES PT HAS NO ADVANCED DIRECTIVES, DECLINES HCP INFORMATION AND ASSISTANCE WITH FORM AT THIS TIME. RESTORATION NO MORMONISM BELIEFS THAT WOULD IMPACT HEALTH CARE. MARITAL STATUS: .. ALCOHOL SCREENING DID YOU HAVE A DRINK CONTAINING ALCOHOL IN THE PAST YEAR?NO POINTS0 INTERPRETATIONNEGATIVE OCCUPATION: UNEMPLOYED. SEXUAL HX HAD SEX IN THE LAST 12 MONTHS (VAGINAL, ORAL, OR ANAL)?NO HAVE YOU EVER HAD AN STD?NO 08/15/17 1025 REVIEWED WITH PT. AD03/15/2018 1508 REVIEWED WITH PT LAS03/27/18 1116 REVIEWED WITH PT BVREVIEWED WITH PATIENT 06/24/18 1028 JSREVIEWED WITH PATIENT 07/24/18 1257 JSREVIEWED WITH PT 09/30/18 1042 BVPRE PROCEDURE PHONE CALL COMPLETED 03/14/19 1201 NLJPRE PROCEDURE PHONE CALL COMPLETED 04/25/2019 1105 NLJ- PT STATES SHE NEEDS TO BE IN PROCEDURE ROOM FOR TPI DUE TO ISSUES IN THE PAST AND STATES SHE ALWAYS HAS A SL FOR PROCEDURESREVIEWED WITH PATIENT 05/12/2019 1328 NLJ. HOSPITALIZATION/MAJOR DIAGNOSTIC PROCEDURE ABOVE SURGERIES MRSA RIGHT GROIN 2015, C DIFF 2015 CHEST PAIN 10/20/2016 [facility]- IMHU 09/2017 DIVERTICULITIS AND /HYPOTENSION 06/2018 SYNCOPE 09/2018 A-FIB AND LOOP RECORDER 10/2018 REVIEW OF SYSTEMS REVIEWED BY: PROVIDER: CHRISTOPHER CLAUDY MANAGER OF ENGINEERING-C . CONSTITUTIONAL: ANY CHANGE IN YOUR MEDICAL CONDITION? NO . CHILLS NO . FEVER NO . INFECTION: DO YOU HAVE NEW INFECTIONS? NO . DO YOU HAVE HISTORY OF MRSA? YES, A MONTH AGO . MUSCULOSKELETAL: ANY NEW PATTERNS OF PAIN OR NUMBNESS? YES, PAIN HAS GOTTEN WORSE . GASTROENTEROLOGY: ANY NEW CHANGE IN BOWEL CONTROL? NO . GENITOURINARY: ANY NEW CHANGE IN BLADDER CONTROL? NO . IS THERE A CHANCE YOU COULD BE ? NO . HEMATOLOGY/LYMPH: DO YOU TAKE ANY BLOOD THINNERS? (FOR EXAMPLE- COUMADIN, PLAVIX, AGGRENOX, PLATEL, PRADAXA, OR XARELTO) YES, ELIQUIS . WHEN WAS YOUR LAST DOSE? DATE:05/28/19 TIME: 7AM . NEUROLOGY: HAVE YOU FALLEN IN THE PAST 12 MONTHS? YES, FELL 16X'S IN 5 DAYS . ANY NEW EXTREMITY NUMBNESS OR WEAKNESS? NO . CARDIOLOGY: DO YOU HAVE A PACEMAKER OR DEFIBRILLATOR? YES,LOOP RECORDER . RESPIRATORY: HAVE YOU BEEN SICK IN THE PAST WEEK? NO . FEVER NO . FLU LIKE SYMPTOMS? NO . COUGH NO . INTEGUMENTARY: DO YOU HAVE ANY RASHES OR OPEN SORES? NO . ALLERGIC/IMMUNO: ARE YOU ALLERGIC TO IV DYE? NO . ANY NEW ALLERGIES? NO . PSYCHIATRIC: DO YOU HAVE THOUGHTS OF HURTING YOURSELF OR SOMEONE ELSE? NO . ARE YOU ABUSED, NEGLECTED, OR IN AN UNSAFE ENVIRONMENT? NO . ENDOCRINOLOGY: ARE YOU DIABETIC? NO . OTHER: DO YOU NEED ANY PRESCRIPTIONS? YES, BELBUCA . IF YES, PLEASE LIST: ____ . ANY NEW PROBLEMS WITH YOUR MEDICATIONS? NO . WHEN DID YOU LAST EAT? ____ . WHEN DID YOU LAST DRINK? ____ . WHAT DID YOU LAST DRINK? ____ . NAME OF PERSON DRIVING YOU HOME? ____ . DO YOU HAVE ANY OTHER QUESTIONS OR CONCERNS YES, PT. COMPLAINED BELBUCA MAKES HER TIRED AND WANTS TO DISCUSS OTHER OPTIONS. AND ALSO COCERNED WITH THE PREVIOUS FALLS . VITAL SIGNS WT 241.8 LBS, HT 61 IN, BMI 45.68 INDEX, BP 123/73 MM HG, HR 93 /MIN, RR 18 /MIN, TEMP 98.2 F, OXYGEN SAT % 97%, SAFE IN ENV? (Y/N) YES, NA INITIALS AW 0948, REVIEWED BY: ROSARIO ADAMS LPN. EXAMINATION GENERAL EXAMINATION: GENERALNO ACUTE DISTRESS, WELL NOURISHED AND HYDRATED. PSYCHAPPROPRIATE MOOD AND AFFECT . LUNGS:CLEAR TO AUSCULTATION BILATERALLY, NO WHEEZES, RHONCHI, RALES. HEART:NO MURMURS, REGULAR RATE AND RHYTHM. ASSESSMENTS MYALGIA, OTHER SITE - M79.18 (PRIMARY) SPONDYLOSIS OF LUMBAR REGION WITHOUT MYELOPATHY OR RADICULOPATHY - M47.816 TREATMENT MYALGIA, OTHER SITE INCREASE BELBUCA FILM, 150 MCG, 1 FILM TO THE GUM, BUCALLY, ONCE A DAY, 30 DAYS, 30, NOTES: 05/12/2019 0800 CLINICAL NOTES: 54-YEAR-OLD FEMALE IN FOR POST TPI FOLLOW-UP. GIVEN PRESENTING SYMPTOMS AND RESULTS OF PHYSICAL EXAMINATION RECOMMEND INCREASING BELBUCA TO 150 WITH FOLLOW-UP IN 2 MONTHS TO DETERMINE EFFICACY OF TREATMENT. PATIENT HAS EXPRESSED UNDERSTANDING OF AND WAS IN AGREEMENT WITH TREATMENT PLAN. GIVEN TIME TO ASK QUESTIONS AND EXPRESS CONCERNS., ISTOP REGISTRY REVIEWED AND DEMONSTRATES COMPLLIANCE. (REF # [id number] ) BRINGS IN MEDICATIONS WHICH IS APPROPRIATE FOR WHAT WAS DISPENSED. RECENT URINE TOXICOLOGY REVIEWED. NO UNAUTHORIZED MEDICATIONS. NO ILLICIT SUBSTANCES AND PRESCRIBED MEDICATIONS WERE PRESENT. PROCEDURE CODES FA211 ESTABILISHED PATIENT [facility] FACILITY CHARGE DISPOSITION & COMMUNICATION FOLLOW UP 2 MONTHS (REASON: BACK PAIN) ELECTRONICALLY SIGNED BY TRA ACOSTA ON 05/29/2019 AT 09:30 AM EDT ADDENDUM: 05/29/2019 09:33 AM ANISA LOCO > DISCUSSED REPEAT TPI PROCEDURES WITH PATIENT AND INFORMED HER THAT GIVEN THEY DID NOT WORK ON HER LOW BACK THAT REPEAT TPI'S IN THAT AREA WOULD PROBABLY NOT BE WARRANTED. DISCLAIMER : THIS IS A VISIT SUMMARY EXTRACTED FROM THE [employer] CHART. IT IS NOT A COPY OF THE [employer] PROGRESS NOTE. RITA
== END ==
LOC: M PAIN 10:00
PROVIDERS: ATTEND Family Medicine
DX: M79.18 Myalgia, other site (principal); M47.816 Spondylosis without myelopathy or radiculopathy, lumbar region; G43.909 Migraine, unspecified, not intractable, without status migrainosus; Z86.59 Personal history of other mental and behavioral disorders; E78.5 Hyperlipidemia, unspecified; K21.9 Gastro-esophageal reflux disease without esophagitis; I10 Essential (primary) hypertension; Z87.891 Personal history of nicotine dependence; Z88.1 Allergy status to other antibiotic agents; Z88.8 Allergy status to other drugs, medicaments and biological substances; Z86.14 Personal history of Methicillin resistant Staphylococcus aureus infection; Z79.01 Long term (current) use of anticoagulants; Z91.81 History of falling; E66.01 Morbid (severe) obesity due to excess calories; Z68.42 Body mass index [BMI] 45.0-49.9, adult; Z79.891 Long term (current) use of opiate analgesic; Z79.899 Other long term (current) drug therapy

== ENCOUNTER 2019-05-31 13:36 | Emergency (ER) | payer OTHER ==
--- NOTE | 2019-05-31 14:35 | REP ---
Clinical: Trauma. Fall. Technique: Axial noncontrast images from the skull base to the vertex with coronal re-formations. Comparison: 04/08/2019 . Findings: The ventricles, sulci, and cisterns are normal in position and appearance. Martinez-white differentiation is maintained. No acute intracranial hemorrhage, mass/mass effect, pathology or trauma/injury. No evidence for acute infarction. No extra-axial fluid collection. Calvarium is intact. Paranasal sinuses and mastoid air cells are clear. Impression: Normal noncontrast head CT. No evidence for acute intracranial pathology or trauma/injury. Electronically Signed by Fletcher Serna MD 05/31/2019 02:27 P
[2019-05-31 15:30] VITALS: BP 112/98
== END 2019-05-31 15:59 | disposition home or self-care (01) ==
LOC: M ED 13:36
DX: S09.90XA Unspecified injury of head, initial encounter (principal); Z86.79 Personal history of other diseases of the circulatory system; W19.XXXA Unspecified fall, initial encounter; Y92.099 Unspecified place in other non-institutional residence as the place of occurrence of the external cause; Y93.9 Activity, unspecified; Y99.9 Unspecified external cause status; I10 Essential (primary) hypertension; Z79.01 Long term (current) use of anticoagulants; Z79.899 Other long term (current) drug therapy; Z88.0 Allergy status to penicillin; Z88.1 Allergy status to other antibiotic agents; Z88.8 Allergy status to other drugs, medicaments and biological substances

== ENCOUNTER → 2019-07-04 | Outpatient (CLI) | payer OTHER ==
[~2019-07-04] MED LIST changes: +OXYC-1 PO; -OXYC15TA76 PO
--- NOTE | 2019-07-08 23:58 | ECWPNPC ---
PATIENT NAME: SMITH VIVEROS : 1965 GENDER: FEMALE VISIT DATE: 07/04/2019 DISCHARGE DATE: 07/04/19 0945 VISIT LOCKED DATE TIME: PHYSICIAN: ANISA LOCO RESOURCE: ANISA LOCO REASON FOR APPOINTMENT 1. BACK PAIN HISTORY OF PRESENT ILLNESS HISTORY OF PRESENT ILLNESS: PAIN THE PATIENT DESCRIBES THE PAIN... 54-YEAR-OLD FEMALE IN FOR CHRONIC PAIN FOLLOW-UP. SHE RATES HER PAIN CURRENTLY AT A 10 OUT OF 10 AND WOULD LIKE TO DISCUSS POSSIBLE PROCEDURES TO HELP ALLEVIATE HER SYMPTOMS. SHE FEELS THE BELBUCA IS NO LONGER EFFECTIVE IN HELPING TO ALLEVIATE HER SYMPTOMS. FALL RISK SCREENING: SCREENING :NO FALLS REPORTED IN THE LAST YEAR CURRENT MEDICATIONS TAKING NITROGLYCERIN 0.4 MG TABLET SUBLINGUAL DIRECTED SUBLINGUAL EVERY 5 MIN: MDD 3 TABLETS TAKING SUCRALFATE 1 GM TABLET 1 TABLET ORALLY TWICE A DAY TAKING ELIQUIS 5 MG TABLET 1 TAB(S) ORALLY TWICE DAILY TAKING PROTONIX 40 MG TABLET DELAYED RELEASE 1 TABLET ORALLY BID TAKING METOPROLOL SUCCINATE 25 MG CAPSULE ER 24 HOUR SPRINKLE 1 CAPSULE ORALLY ONCE A DAY TAKING BELBUCA 150 MCG FILM 1 FILM TO THE GUM BUCALLY ONCE A DAY NOT-TAKING ROBAXIN 500 MG TABLET 1.5 TABLETS ORALLY EVERY 4 HRS NOT-TAKING PAROXETINE HCL 30 MG TABLET 1 TABLET IN THE MORNING ORALLY ONCE A DAY MEDICATION LIST REVIEWED AND RECONCILED WITH THE PATIENT PAST MEDICAL HISTORY FIBROMYALGIA DX 4 YEARS AGO, BEING FOLLOWED AT PAIN CLINIC MIGRAINE HEADACHE STRESS INCONTINENCE DEPRESSION HYPERLIPIDEMIA VITAMIN D DEFICIENCY AFIB GERD INTERMITTENT A FIB STRESS INCONTINENCE, FEMALE CHRONIC PAIN SYNDROME UNSPECIFIED VITAMIN D DEFICIENCY MIGRAINE, UNSPECIFIED WITHOUT MENTION OF INTRACTABLE MIGRAINE WITHOUT MENTION OF STATUS MIGRAINOSUS HYPERTENSION ALLERGIES ZIPSOR: ALLERGY FLEXERIL: AGGITATION - ALLERGY LYRICA: ANAPHYLAXIS - ALLERGY DICLOFENAC POTASSIUM: AGGITATION (ZIPSOR) - ALLERGY BACTRIM: NAUSEA/VOMITING - ALLERGY CYMBALTA: NAUSEA/VOMITING - SIDE EFFECTS AMITRIPTYLINE: AGGITATION - SIDE EFFECTS GABAPENTIN: HALLUCINATIONS - SIDE EFFECTS TIZANIDINE HCL: HIVES - ALLERGY KETOROLAC TROMETHAMINE: STOMACH PAIN - ALLERGY SURGICAL HISTORY TUBAL LIGATION 1988 DISTAL 4TH FINGER REPAIR SECONDARY TO TRAUMATIC INJURY BENIGN TUMOR REMOVAL RIGHT LEG DENTAL SURGERIES CHOLECYSTECTOMY 05/2014 HYSTERECTOMY STILL HAS 1 OVARY BUT NOT SURE WHICH ONE 2012 ABSCESS R GROIN 2015 LOOP RECORDER 10/2018 LEFT SHOULDER REPAIR 02/20/19 FAMILY HISTORY FATHER: , PNEUMONIA, CHF, NEUROPATHY, BLOOD CLOT, DIAGNOSED WITH DIABETES, UNSPECIFIED HEART DISEASE, UNSPECIFIED CEREBRAL ARTERY OCCLUSION WITH CEREBRAL INFARCTION MOTHER: , CANCER, HYPERTENSION, DIABETES, UNSPECIFIED HEART DISEASE, UNSPECIFIED CEREBRAL ARTERY OCCLUSION WITH CEREBRAL INFARCTION, OTHER MALIGNANT NEOPLASM OF UNSPECIFIED SITE SIBLINGS: ALIVE, LUPUS, DIABETES SON(S): ALIVE DAUGHTER(S): ALIVE 2 BROTHER(S) , 5 SISTER(S) . 1 SON(S) , 1 DAUGHTER(S) - HEALTHY. SOCIAL HISTORY GENERAL: TOBACCO USE ARE YOU A:FORMER SMOKER HOW LONG HAS IT BEEN SINCE YOU LAST SMOKED?5-10 YEARS VAPORNO E-CIGARETTEYES LATEX QUESTIONNAIRE LATEX ALLERGY : HAVE YOU EVER DEVELOPED ANY TYPE OF REACTION AFTER HANDLING LATEX PRODUCTS SUCH RUBBER GLOVES, CONDOMS, DIAPHRAGMS, BALLOONS, SOCKS, OR UNDERWEAR?NO LATEX ALLERGY : HAVE YOU EVER DEVELOPED ANY TYPE OF REACTION DURING OR AFTER DENTAL APPOINTMENT, VAGINAL/RECTAL EXAMINATION, SURGICAL PROCEDURE, OR ANY OTHER EXPOSURE?NO DATE ASKED : 04/25/2019 LATEX RISK : HAVE YOU EVER HAD ANY DIFFICULTY BREATHING OR HIVES AFTER EATING OR HANDLING ANY FRUITS, OR VEGETABLES; SUCH KIWI, BANANAS, STONE FRUITS, OR CHESTNUTSNO LATEX RISK : DO YOU HAVE A PREVIOUS PERSONAL HISTORY OF MORE THAN NINE SURGERIES, SPINA BIFIDA, OR REPEATED CATHERIZATIONS? YES - PLEASE INDICATE : > 9 SURGERIES LATEX RISK : ARE YOU FREQUENTLY EXPOSED TO LATEX PRODUCTS IN YOUR OCCUPATION?NO BMI CARE GOAL FOLLOW-UP ABOVE NORMAL BMI FOLLOW-UPLIFESTYLE EDUCATION REGARDING DIET ALCOHOL SCREENING DID YOU HAVE A DRINK CONTAINING ALCOHOL IN THE PAST YEAR?NO POINTS0 INTERPRETATIONNEGATIVE RECREATIONAL DRUG USE DRUG USE?NO CAFFEINE CAFFEINE USE?YES SEXUAL HX HAD SEX IN THE LAST 12 MONTHS (VAGINAL, ORAL, OR ANAL)?NO HAVE YOU EVER HAD AN STD?NO HIV / HEP-C SCREENING HIV TEST OFFERED TO PATIENT:YES DATE OFFERED:10/26/2017 TEST ACCEPTED:NO HEP-C TEST OFFERED TO PATIENT:NO REASON:PATIENT DECLINED BROCHURE PROVIDED TO PATIENTNO YAZIDISM NO RELIGION BELIEFS THAT WOULD IMPACT HEALTH CARE. LANGUAGE NICARAGUAN. LEARNING BARRIERS / SPECIAL NEEDS CHANGE FROM LAST VISIT?NO BARRIERS TO LEARNING?NO HEARING IMPAIRED?NO VISION IMPAIRED?YES COGNITIVELY IMPAIRED?NO :CORRECTIVE LENSES READINESS TO LEARN?YES LEARNING PREFERENCES?NO LEARNING CAPABILITIES PRESENT?YES EMOTIONAL BARRIERS?YES SPECIAL DEVICES?NO DOMESTIC VIOLENCE DO YOU FEEL SAFE IN YOUR ENVIRONMENT?YES OCCUPATION: UNEMPLOYED. DIET: REGULAR. EXERCISE: NO REGULAR EXERCISE. MARITAL STATUS: .. OTHERS AT HOME: [id number], BROTHER, NEPHEW AND BOYFRIEND. NEW PATIENT PAIN DIARY TODAY'S VISIT 07/04/19 PATIENT DESCRIBES PAIN :HAVE IT ALL THE TIME, STABBING, THROBBING, SHOOTING FROM 0-10, WHAT LEVEL IS YOUR PAIN TODAY?10 PRECIPITATING FACTORS ANYTHING ALLEVIATING FACTORS NOTHING IMPACT ON FUNCTION YES PAIN CLINIC PFS, CLERGY, PUBLIC HEALTH REFERRALS PFS REFERRAL NEEDED?NO CLERGY REFERRAL NEEDED?NO PUBLIC HEALTH REFERRAL NEEDED?NO WAS THE PROVIDER NOTIFIED OF ANY PERTINENT INFO?NO N/A HAS THE PATIENT BEEN EDUCATED REGARDING HIS/HER PLAN OF CARE?YES HAS THE PATIENT BEEN EDUCATED REGARDING PAIN, THE RISK FOR PAIN, THE IMPORTANCE OF EFFECTIVE PAIN MANAGEMENT, AND THE PAIN ASSESSMENT PROCESS?YES ADVANCE DIRECTIVE ADVANCE DIRECTIVE DISCUSSED WITH PATIENT:YES PT HAS NO ADVANCED DIRECTIVES, DECLINES HCP INFORMATION AND ASSISTANCE WITH FORM AT THIS TIME. 08/15/17 1025 REVIEWED WITH PT. AD03/15/2018 1508 REVIEWED WITH PT LAS03/27/18 1116 REVIEWED WITH PT BVREVIEWED WITH PATIENT 06/24/18 1028 JSREVIEWED WITH PATIENT 07/24/18 1257 JSREVIEWED WITH PT 09/30/18 1042 BVPRE PROCEDURE PHONE CALL COMPLETED 03/14/19 1201 NLJPRE PROCEDURE PHONE CALL COMPLETED 04/25/2019 1105 NLJ- PT STATES SHE NEEDS TO BE IN PROCEDURE ROOM FOR TPI DUE TO ISSUES IN THE PAST AND STATES SHE ALWAYS HAS A SL FOR PROCEDURESREVIEWED WITH PATIENT 05/12/2019 1328 NLJ. HOSPITALIZATION/MAJOR DIAGNOSTIC PROCEDURE ABOVE SURGERIES MRSA RIGHT GROIN 2015, C DIFF 2015 CHEST PAIN 10/20/2016 [facility]- IMHU 09/2017 DIVERTICULITIS AND /HYPOTENSION 06/2018 SYNCOPE 09/2018 A-FIB AND LOOP RECORDER 10/2018 REVIEW OF SYSTEMS REVIEWED BY: PROVIDER: JAJA VIERA . CONSTITUTIONAL: ANY CHANGE IN YOUR MEDICAL CONDITION? YES, PAIN IS WORSE . CHILLS NO . FEVER NO . INFECTION: DO YOU HAVE NEW INFECTIONS? NO . DO YOU HAVE HISTORY OF MRSA? NO . MUSCULOSKELETAL: ANY NEW PATTERNS OF PAIN OR NUMBNESS? YES, PAIN IS WORSE . GASTROENTEROLOGY: ANY NEW CHANGE IN BOWEL CONTROL? NO . GENITOURINARY: ANY NEW CHANGE IN BLADDER CONTROL? NO . IS THERE A CHANCE YOU COULD BE ? NO . HEMATOLOGY/LYMPH: DO YOU TAKE ANY BLOOD THINNERS? (FOR EXAMPLE- COUMADIN, PLAVIX, AGGRENOX, PLATEL, PRADAXA, OR XARELTO) ELLIQUIS . WHEN WAS YOUR LAST DOSE? DATE: TIME: . NEUROLOGY: HAVE YOU FALLEN IN THE PAST 12 MONTHS? YES, PRIOR TO LAST VISIT . ANY NEW EXTREMITY NUMBNESS OR WEAKNESS? NO . CARDIOLOGY: DO YOU HAVE A PACEMAKER OR DEFIBRILLATOR? LOOP RECORDER . RESPIRATORY: HAVE YOU BEEN SICK IN THE PAST WEEK? NO . FEVER NO . FLU LIKE SYMPTOMS? NO . COUGH NO . INTEGUMENTARY: DO YOU HAVE ANY RASHES OR OPEN SORES? NO . ALLERGIC/IMMUNO: ARE YOU ALLERGIC TO IV DYE? NO . ANY NEW ALLERGIES? NO . PSYCHIATRIC: DO YOU HAVE THOUGHTS OF HURTING YOURSELF OR SOMEONE ELSE? NO . ARE YOU ABUSED, NEGLECTED, OR IN AN UNSAFE ENVIRONMENT? NO . ENDOCRINOLOGY: ARE YOU DIABETIC? NO . OTHER: DO YOU NEED ANY PRESCRIPTIONS? NO . IF YES, PLEASE LIST: ____ . ANY NEW PROBLEMS WITH YOUR MEDICATIONS? NO . WHEN DID YOU LAST EAT? ____ . WHEN DID YOU LAST DRINK? ____ . WHAT DID YOU LAST DRINK? ____ . NAME OF PERSON DRIVING YOU HOME? ____ . DO YOU HAVE ANY OTHER QUESTIONS OR CONCERNS NO . VITAL SIGNS WT 244 LBS, HT 61 IN, BMI 46.10 INDEX, BP 128/88 MM HG, HR 83 /MIN, RR 16 /MIN, TEMP 98 F, OXYGEN SAT % 99, SAFE IN ENV? (Y/N) Y, REVIEWED BY: EM. EXAMINATION GENERAL EXAMINATION: GENERALNO ACUTE DISTRESS, WELL NOURISHED AND HYDRATED. PSYCHAPPROPRIATE MOOD AND AFFECT . LUNGS:CLEAR TO AUSCULTATION BILATERALLY, NO WHEEZES, RHONCHI, RALES. HEART:NO MURMURS, REGULAR RATE AND RHYTHM. BACK:POINT TENDER ALONG LUMBAR SPINE, SURROUNDING SKIN SHOWS NO ERYTHEMA, ECCHYMOSIS, INCREASED WARMTH, AND/OR SKIN ERUPTIONS NOTED. POSITIVE MODIFIED SLR RIGHT SIDE . MUSCULOSKELETAL:EQUAL STRENGTH OF LOWER EXTREMITIES BILATERALLY . ASSESSMENTS SPONDYLOSIS OF LUMBOSACRAL JOINT WITHOUT MYELOPATHY - M47.817 (PRIMARY) TREATMENT SPONDYLOSIS OF LUMBOSACRAL JOINT WITHOUT MYELOPATHY CLINICAL NOTES: 54-YEAR-OLD FEMALE IN FOR CHRONIC PAIN FOLLOW-UP. GIVEN PRESENTING SYMPTOMS AND RESULTS OF PHYSICAL EXAMINATION RECOMMENDED DIAGNOSTIC FACET BLOCK #2 RIGHT SIDE WITH POST PROCEDURAL FOLLOW-UP. PATIENT HAS EXPRESSED UNDERSTANDING OF AND WAS IN AGREEMENT WITH TREATMENT PLAN. GIVEN TIME TO ASK QUESTIONS AND EXPRESS CONCERNS. PATIENT WAS ASKED TO BRING IN BELBUCA FOR COUNTING AND FAILED TO DO SO. SHE WILL NOT BE PRESCIBED THIS MEDICATION GOING FORWARD. PROCEDURE CODES FA211 ESTABILISHED PATIENT [facility] FACILITY CHARGE DISPOSITION & COMMUNICATION FOLLOW UP POST PROCEDURE (REASON: RIGHT LUMBAR DIAGNOSTIC FACET BLOCK #2) ELECTRONICALLY SIGNED BY TRA ACOSTA ON 07/08/2019 AT 02:39 PM EDT DISCLAIMER : THIS IS A VISIT SUMMARY EXTRACTED FROM THE [email or web address] CHART. IT IS NOT A COPY OF THE [email or web address] PROGRESS NOTE. RITA
== END ==
LOC: M PAIN 08:45
PROVIDERS: ATTEND Family Medicine
DX: M47.817 Spondylosis without myelopathy or radiculopathy, lumbosacral region (principal); I10 Essential (primary) hypertension; Z79.899 Other long term (current) drug therapy; Z88.8 Allergy status to other drugs, medicaments and biological substances; Z87.891 Personal history of nicotine dependence

== ENCOUNTER 2019-07-05 10:33 | Emergency (ER) | payer OTHER ==
[~2019-07-05] VITALS: Ht 157.5 cm; Wt 110.3 kg
[2019-07-05] MEDS ORDERED: ACETAMINOPHEN 325 MG TAB PO ONE (12:00)
[2019-07-05 12:14] VITALS: BP 130/81
--- NOTE | 2019-07-05 12:24 | REP ---
LEFT SHOULDER THREE VIEWS: Three views of the left shoulder performed. No acute fracture or dislocation. Calcified granuloma is incidentally noted in the left lung base. IMPRESSION: No acute fracture or dislocation. Electronically Signed by Jose Martinez MD 07/05/2019 04:19 P
== END 2019-07-05 12:51 | disposition home or self-care (01) ==
LOC: M ED 10:33
DX: S43.402A Unspecified sprain of left shoulder joint, initial encounter (principal); W01.0XXA Fall on same level from slipping, tripping and stumbling without subsequent striking against object, initial encounter; Y92.039 Unspecified place in apartment as the place of occurrence of the external cause; Y93.9 Activity, unspecified; Y99.9 Unspecified external cause status; M62.838 Other muscle spasm; Z88.2 Allergy status to sulfonamides; Z88.1 Allergy status to other antibiotic agents; Z88.0 Allergy status to penicillin; Z88.8 Allergy status to other drugs, medicaments and biological substances

== ENCOUNTER 2019-07-09 17:07 | Emergency (ER) | payer OTHER ==
[~2019-07-09] VITALS: Ht 157.5 cm; Wt 110.0 kg
[~2019-07-09 17:07] MED LIST changes: -BUPIVACAINE HCL 0.25% 30ML VIAL As Ordered ONE; -ISOVUE-M 300 61% 15ML VIAL As Ordered ONE; -LIDOCAINE 1% SDV 30ML VIAL As Ordered ONE; -MIDAZOLAM INJ 2MG/2ML VIAL (J2250 PER 1MG) As Ordered ONE; -ONDANSETRON 4 MG ORAL DISINTEGRATING TAB As Ordered ONE
[2019-07-09] MEDS ORDERED: METOPROLOL TART 25 MG TABLET PO ONE (17:30)
[2019-07-09] MEDS ORDERED: NS 1,000 ML IV ONE (17:30)
[2019-07-09] MEDS: METOPROLOL 5 MG/5 ML VIAL IV SCH ×3 (17:42→18:06)
--- NOTE | 2019-07-09 17:56 | REP ---
Portable chest x-ray: Single view. History: Chest pain. Comparison study: May 22, 2019. Findings: Monitoring electrodes overlie the chest. Granulomatous calcifications are again noted in the lung thomason bilaterally. Heart is not enlarged. No infiltrate is seen. Pulmonary vasculature is not increased. Impression: No active disease. Electronically Signed by Dominic Chao MD 07/09/2019 05:48 P
[2019-07-09 18:04] LABS: BASO % 0.2 % (0.0-1.0); EOS # 0.1 10^3/uL (0.0-0.5); EOS % 1.3 % (0.0-3.0); HEMATOCRIT 41.8 % (36.0-47.0); HEMOGLOBIN 13.8 g/dl (12.0-15.5); LYMPH # 1.9 10^3/uL (1.5-5.0); LYMPH % 40.8 % (24.0-44.0); MEAN CORPUSCULAR HEMOGLOBIN 29.6 pg (27.0-33.0); MEAN CORPUSCULAR VOLUME 89.7 fl (80.0-96.0); MONO # 0.4 10^3/uL (0.0-0.8); MONO % 7.8 % (0.0-5.0); NEUTROPHILS # 2.4 10^3/uL (1.5-8.5); NEUTROPHILS % 49.7 % (36.0-66.0); PLATELET COUNT, AUTOMATED 176 10^3/uL (150-450); RED BLOOD COUNT 4.66 10^6/uL (4.00-5.40); WHITE BLOOD COUNT 4.7 10^3/uL (4.0-10.0)
[2019-07-09 18:19] LABS: INR 1.04; PROTHROMBIN TIME 13.3 SECONDS (11.8-14.0)
[2019-07-09 18:29] LABS: ALBUMIN 2.9 GM/DL (3.2-5.2); ALT/SGPT 36 U/L (12-78); BILIRUBIN,DIRECT < 0.1 MG/DL (0.0-0.2); BILIRUBIN,TOTAL 0.4 MG/DL (0.2-1.0); BLOOD UREA NITROGEN 9 MG/DL (7-18); CALCIUM LEVEL 8.8 MG/DL (8.5-10.1); CARBON DIOXIDE LEVEL 29 MEQ/L (21-32); CHLORIDE LEVEL 109 MEQ/L (98-107); CK-MB VALUE MASS < 1.0 NG/ML (<3.6); CPK CREATINE PHOSPHOKINASE 69 U/L (26-192); CREATININE FOR GFR 0.97 MG/DL (0.55-1.30); GLOMERULAR FILTRATION RATE > 60.0 (>51); GLUCOSE, FASTING 94 MG/DL (70-100); MB/CK RELATIVE INDEX 1.45 (< OR =4); POTASSIUM SERUM 3.6 MEQ/L (3.5-5.1); SODIUM LEVEL 143 MEQ/L (136-145); TOTAL PROTEIN 5.9 GM/DL (6.4-8.2); TROPONIN I < 0.02 NG/ML (< 0.10)
[2019-07-09] MEDS ORDERED: METOPROLOL 5 MG/5 ML VIAL IV STA (19:23)
[2019-07-09 19:34] VITALS: BP 119/79
[2019-07-09 19:49] VITALS: BP 110/65
--- NOTE | 2019-07-09 20:06 | ECGEPIP ---
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
== END 2019-07-09 20:11 | disposition home or self-care (01) ==
LOC: M ED 17:07 → EDBD 17:07 → M ED 20:11
DX: I49.9 Cardiac arrhythmia, unspecified (principal); I48.0 Paroxysmal atrial fibrillation; E11.9 Type 2 diabetes mellitus without complications; E78.5 Hyperlipidemia, unspecified; Z88.2 Allergy status to sulfonamides; Z88.6 Allergy status to analgesic agent; Z88.8 Allergy status to other drugs, medicaments and biological substances; Z79.01 Long term (current) use of anticoagulants; Z79.899 Other long term (current) drug therapy

== ENCOUNTER → 2019-07-09 | Outpatient (CLI) | payer OTHER ==
[~2019-07-09] MED LIST changes: +BUPIVACAINE HCL 0.25% 30ML VIAL As Ordered ONE; +ISOVUE-M 300 61% 15ML VIAL As Ordered ONE; +LIDOCAINE 1% SDV 30ML VIAL As Ordered ONE; +MIDAZOLAM INJ 2MG/2ML VIAL (J2250 PER 1MG) As Ordered ONE; +ONDANSETRON 4 MG ORAL DISINTEGRATING TAB As Ordered ONE
--- NOTE | 2019-07-09 16:34 | REP ---
C-ARM VIEWS, LUMBAR SPINE: CLINICAL HISTORY: Pain. Two C-arm views are performed of the lower lumbar spine during a facet injection performed by Dr. Hi. [place] are seen along the lower lumbar facet joints. 13 seconds fluoroscopy time utilized. Electronically Signed by Jose Martinez MD 07/10/2019 10:16 A
--- NOTE | 2019-07-16 00:34 | ECWPNPC ---
PATIENT NAME: SMITH VIVEROS : 1965 GENDER: FEMALE VISIT DATE: 07/09/2019 DISCHARGE DATE: 07/09/19 1555 VISIT LOCKED DATE TIME: PHYSICIAN: ARELIS MILLER MD RESOURCE: ARELIS MILLER MD REASON FOR APPOINTMENT 1. RIGHT DIAGNOSTIC LUMBAR FACET HISTORY OF PRESENT ILLNESS HISTORY OF PRESENT ILLNESS: PAIN THE PATIENT DESCRIBES THE PAIN... FALL RISK SCREENING: SCREENING :NO FALLS REPORTED IN THE LAST YEAR CURRENT MEDICATIONS TAKING NITROGLYCERIN 0.4 MG TABLET SUBLINGUAL DIRECTED SUBLINGUAL EVERY 5 MIN: MDD 3 TABLETS, NOTES: NONE LATELY TAKING SUCRALFATE 1 GM TABLET 1 TABLET ORALLY TWICE A DAY, NOTES: 07/09/19 AM TAKING ELIQUIS 5 MG TABLET 1 TAB(S) ORALLY TWICE DAILY, NOTES: 5 DAYS AGO TAKING PROTONIX 40 MG TABLET DELAYED RELEASE 1 TABLET ORALLY BID, NOTES: 07/09/19 AM TAKING METOPROLOL SUCCINATE 25 MG CAPSULE ER 24 HOUR SPRINKLE 1 CAPSULE ORALLY ONCE A DAY, NOTES: 07/09/19 AM NOT-TAKING BELBUCA 150 MCG FILM 1 FILM TO THE GUM BUCALLY ONCE A DAY NOT-TAKING ROBAXIN 500 MG TABLET 1.5 TABLETS ORALLY EVERY 4 HRS NOT-TAKING PAROXETINE HCL 30 MG TABLET 1 TABLET IN THE MORNING ORALLY ONCE A DAY MEDICATION LIST REVIEWED AND RECONCILED WITH THE PATIENT PAST MEDICAL HISTORY FIBROMYALGIA DX 4 YEARS AGO, BEING FOLLOWED AT PAIN CLINIC MIGRAINE HEADACHE STRESS INCONTINENCE DEPRESSION HYPERLIPIDEMIA VITAMIN D DEFICIENCY AFIB GERD INTERMITTENT A FIB STRESS INCONTINENCE, FEMALE CHRONIC PAIN SYNDROME UNSPECIFIED VITAMIN D DEFICIENCY MIGRAINE, UNSPECIFIED WITHOUT MENTION OF INTRACTABLE MIGRAINE WITHOUT MENTION OF STATUS MIGRAINOSUS HYPERTENSION ALLERGIES ZIPSOR: ALLERGY FLEXERIL: AGGITATION - ALLERGY LYRICA: ANAPHYLAXIS - ALLERGY DICLOFENAC POTASSIUM: AGGITATION (ZIPSOR) - ALLERGY BACTRIM: NAUSEA/VOMITING - ALLERGY CYMBALTA: NAUSEA/VOMITING - SIDE EFFECTS AMITRIPTYLINE: AGGITATION - SIDE EFFECTS GABAPENTIN: HALLUCINATIONS - SIDE EFFECTS TIZANIDINE HCL: HIVES - ALLERGY KETOROLAC TROMETHAMINE: STOMACH PAIN - ALLERGY SURGICAL HISTORY TUBAL LIGATION 1987 DISTAL 4TH FINGER REPAIR SECONDARY TO TRAUMATIC INJURY BENIGN TUMOR REMOVAL RIGHT LEG DENTAL SURGERIES CHOLECYSTECTOMY 05/2014 HYSTERECTOMY STILL HAS 1 OVARY BUT NOT SURE WHICH ONE 2012 ABSCESS R GROIN 2015 LOOP RECORDER 10/2018 LEFT SHOULDER REPAIR 02/20/19 FAMILY HISTORY FATHER: , PNEUMONIA, CHF, NEUROPATHY, BLOOD CLOT, DIAGNOSED WITH DIABETES, UNSPECIFIED HEART DISEASE, UNSPECIFIED CEREBRAL ARTERY OCCLUSION WITH CEREBRAL INFARCTION MOTHER: , CANCER, UNSPECIFIED CEREBRAL ARTERY OCCLUSION WITH CEREBRAL INFARCTION, UNSPECIFIED HEART DISEASE, DIABETES, HYPERTENSION, OTHER MALIGNANT NEOPLASM OF UNSPECIFIED SITE SIBLINGS: ALIVE, LUPUS, DIABETES SON(S): ALIVE DAUGHTER(S): ALIVE 2 BROTHER(S) , 5 SISTER(S) . 1 SON(S) , 1 DAUGHTER(S) - HEALTHY. SOCIAL HISTORY GENERAL: TOBACCO USE ARE YOU A:FORMER SMOKER HOW LONG HAS IT BEEN SINCE YOU LAST SMOKED?5-10 YEARS VAPORNO E-CIGARETTEYES LATEX QUESTIONNAIRE LATEX ALLERGY : HAVE YOU EVER DEVELOPED ANY TYPE OF REACTION AFTER HANDLING LATEX PRODUCTS SUCH RUBBER GLOVES, CONDOMS, DIAPHRAGMS, BALLOONS, SOCKS, OR UNDERWEAR?NO LATEX ALLERGY : HAVE YOU EVER DEVELOPED ANY TYPE OF REACTION DURING OR AFTER DENTAL APPOINTMENT, VAGINAL/RECTAL EXAMINATION, SURGICAL PROCEDURE, OR ANY OTHER EXPOSURE?NO DATE ASKED : 04/25/2019 LATEX RISK : HAVE YOU EVER HAD ANY DIFFICULTY BREATHING OR HIVES AFTER EATING OR HANDLING ANY FRUITS, OR VEGETABLES; SUCH KIWI, BANANAS, STONE FRUITS, OR CHESTNUTSNO LATEX RISK : DO YOU HAVE A PREVIOUS PERSONAL HISTORY OF MORE THAN NINE SURGERIES, SPINA BIFIDA, OR REPEATED CATHERIZATIONS? YES - PLEASE INDICATE : > 9 SURGERIES LATEX RISK : ARE YOU FREQUENTLY EXPOSED TO LATEX PRODUCTS IN YOUR OCCUPATION?NO BMI CARE GOAL FOLLOW-UP ABOVE NORMAL BMI FOLLOW-UPLIFESTYLE EDUCATION REGARDING DIET ALCOHOL SCREENING DID YOU HAVE A DRINK CONTAINING ALCOHOL IN THE PAST YEAR?NO POINTS0 INTERPRETATIONNEGATIVE RECREATIONAL DRUG USE DRUG USE?NO CAFFEINE CAFFEINE USE?YES SEXUAL HX HAD SEX IN THE LAST 12 MONTHS (VAGINAL, ORAL, OR ANAL)?NO HAVE YOU EVER HAD AN STD?NO HIV / HEP-C SCREENING HIV TEST OFFERED TO PATIENT:YES DATE OFFERED:10/26/2017 TEST ACCEPTED:NO HEP-C TEST OFFERED TO PATIENT:NO REASON:PATIENT DECLINED BROCHURE PROVIDED TO PATIENTNO ROMAN CATHOLIC NO CONGREGATIONAL BELIEFS THAT WOULD IMPACT HEALTH CARE. LANGUAGE PAKISTANI. LEARNING BARRIERS / SPECIAL NEEDS CHANGE FROM LAST VISIT?NO BARRIERS TO LEARNING?NO HEARING IMPAIRED?NO VISION IMPAIRED?YES COGNITIVELY IMPAIRED?NO :CORRECTIVE LENSES READINESS TO LEARN?YES LEARNING PREFERENCES?NO LEARNING CAPABILITIES PRESENT?YES EMOTIONAL BARRIERS?YES SPECIAL DEVICES?NO DOMESTIC VIOLENCE DO YOU FEEL SAFE IN YOUR ENVIRONMENT?YES OCCUPATION: UNEMPLOYED. DIET: REGULAR. EXERCISE: NO REGULAR EXERCISE. MARITAL STATUS: .. OTHERS AT HOME: [id number], BROTHER, NEPHEW AND BOYFRIEND. NEW PATIENT PAIN DIARY TODAY'S VISIT 07/08/19 PATIENT DESCRIBES PAIN :ACHING, HAVE IT ALL THE TIME, SHARP, THROBBING FROM 0-10, WHAT LEVEL IS YOUR PAIN TODAY?10 PRECIPITATING FACTORS ANYTHING ALLEVIATING FACTORS NOTHING IMPACT ON FUNCTION YES PAIN CLINIC PFS, CLERGY, PUBLIC HEALTH REFERRALS PFS REFERRAL NEEDED?NO CLERGY REFERRAL NEEDED?NO PUBLIC HEALTH REFERRAL NEEDED?NO WAS THE PROVIDER NOTIFIED OF ANY PERTINENT INFO?NO N/A HAS THE PATIENT BEEN EDUCATED REGARDING HIS/HER PLAN OF CARE?YES HAS THE PATIENT BEEN EDUCATED REGARDING PAIN, THE RISK FOR PAIN, THE IMPORTANCE OF EFFECTIVE PAIN MANAGEMENT, AND THE PAIN ASSESSMENT PROCESS?YES ADVANCE DIRECTIVE ADVANCE DIRECTIVE DISCUSSED WITH PATIENT:YES PT HAS NO ADVANCED DIRECTIVES, DECLINES HCP INFORMATION AND ASSISTANCE WITH FORM AT THIS TIME. 08/15/17 1025 REVIEWED WITH PT. AD03/15/2018 1508 REVIEWED WITH PT LAS03/27/18 1116 REVIEWED WITH PT BVREVIEWED WITH PATIENT 06/24/18 1028 JSREVIEWED WITH PATIENT 07/24/18 1257 JSREVIEWED WITH PT 09/30/18 1042 BVPRE PROCEDURE PHONE CALL COMPLETED 03/14/19 1201 NLJPRE PROCEDURE PHONE CALL COMPLETED 04/25/2019 1105 NLJ- PT STATES SHE NEEDS TO BE IN PROCEDURE ROOM FOR TPI DUE TO ISSUES IN THE PAST AND STATES SHE ALWAYS HAS A SL FOR PROCEDURESREVIEWED WITH PATIENT 05/12/2019 1328 NLJ. HOSPITALIZATION/MAJOR DIAGNOSTIC PROCEDURE ABOVE SURGERIES MRSA RIGHT GROIN 2015, C DIFF 2015 CHEST PAIN 10/20/2016 [facility]- [facility] 09/2017 DIVERTICULITIS AND /HYPOTENSION 06/2018 SYNCOPE 09/2018 A-FIB AND LOOP RECORDER 10/2018 REVIEW OF SYSTEMS REVIEWED BY: PROVIDER: ARELIS MILLER MD . CONSTITUTIONAL: ANY CHANGE IN YOUR MEDICAL CONDITION? NO . CHILLS NO . FEVER NO . INFECTION: DO YOU HAVE NEW INFECTIONS? NO . DO YOU HAVE HISTORY OF MRSA? NO . MUSCULOSKELETAL: ANY NEW PATTERNS OF PAIN OR NUMBNESS? YES, PAIN HAS WORSENED IN PAST 2 WEEKS . GASTROENTEROLOGY: ANY NEW CHANGE IN BOWEL CONTROL? NO . GENITOURINARY: ANY NEW CHANGE IN BLADDER CONTROL? NO . IS THERE A CHANCE YOU COULD BE ? NO . HEMATOLOGY/LYMPH: DO YOU TAKE ANY BLOOD THINNERS? (FOR EXAMPLE- COUMADIN, PLAVIX, AGGRENOX, PLATEL, PRADAXA, OR XARELTO) YES, ELIQUIS . WHEN WAS YOUR LAST DOSE? DATE: TIME: . NEUROLOGY: HAVE YOU FALLEN IN THE PAST 12 MONTHS? YES, PRIOR TO LAST VISIT . ANY NEW EXTREMITY NUMBNESS OR WEAKNESS? NO . CARDIOLOGY: DO YOU HAVE A PACEMAKER OR DEFIBRILLATOR? NO, LOOP RECORDER . RESPIRATORY: HAVE YOU BEEN SICK IN THE PAST WEEK? NO . FEVER NO . FLU LIKE SYMPTOMS? NO . COUGH NO . INTEGUMENTARY: DO YOU HAVE ANY RASHES OR OPEN SORES? NO . ALLERGIC/IMMUNO: ARE YOU ALLERGIC TO IV DYE? NO . ANY NEW ALLERGIES? NO . PSYCHIATRIC: DO YOU HAVE THOUGHTS OF HURTING YOURSELF OR SOMEONE ELSE? NO . ARE YOU ABUSED, NEGLECTED, OR IN AN UNSAFE ENVIRONMENT? NO . ENDOCRINOLOGY: ARE YOU DIABETIC? NO . OTHER: DO YOU NEED ANY PRESCRIPTIONS? NO . IF YES, PLEASE LIST: ____ . ANY NEW PROBLEMS WITH YOUR MEDICATIONS? NO . WHEN DID YOU LAST EAT? 07/09/19 0000 . WHEN DID YOU LAST DRINK? 07/09/19 0800 . WHAT DID YOU LAST DRINK? WATER . NAME OF PERSON DRIVING YOU HOME? YELLOW CAB . DO YOU HAVE ANY OTHER QUESTIONS OR CONCERNS NO . VITAL SIGNS WT 242 LBS, HT 61 IN, BMI 45.72 INDEX, BP 144/77 MM HG, HR 96 /MIN, RR 16 /MIN, TEMP 97.6 F, OXYGEN SAT % 99%, SAFE IN ENV? (Y/N) Y, NA INITIALS AW 0957, REVIEWED BY: EM. 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 PROCEDURES PN LUMBAR FACET BLOCK DIAGNOSTIC PRE PROCEDURE DIAGNOSIS LUMBAR SPONDYLOSIS, LUMBOSACRAL SPONDYLOSIS POST PROCEDURE DIAGNOSIS LUMBAR SPONDYLOSIS, LUMBOSACRAL SPONDYLOSIS PROCEDURE RIGHT L4-L5, L5-S1 FACET BLOCK DIAGNOSTIC NUMBER [address] ARELIS MILLER TURPENTINE DISTILLER NONE ANESTHESIA LOCAL PRE PROCEDURE NOTE THE PATIENT WITH HISTORY OF CHRONIC LOW BACK PAIN. I EVALUATED THE PATIENT AND REVIEWED THE CHART. I WENT OVER THE RISKS, ALTERNATIVES, AND BENEFITS ASSOCIATED WITH THIS PROCEDURE. THE PATIENT WOULD LIKE TO PROCEED AND GAVE CONSENT TO PERFORM THE PROCEDURE. AGREED WITH THE PATIENT WE ARE DOING THIS PROCEDURE TO DETERMINE IF THE PATIENT IS A CANDIDATE FOR A RADIOFREQUENCY ABLATION OF THE FACETS JOINTS. THE PATIENT DENIES UNEXPLAINABLE WEIGHT LOSS, FEVER, CHILLS, OR NEW CHANGES IN URINARY OR BOWEL CONTROL DESCRIPTION OF PROCEDURE THE PATIENT WAS BROUGHT TO THE PROCEDURE ROOM AND PLACED IN THE PRONE POSITION. THE LUMBOSACRAL AREA WAS CLEANED WITH CHLORAPREP SOLUTION AND DRAPED ASEPTICALLY. THE PROCEDURE WAS DONE UNDER STERILE CONDITIONS. WHEN I ARRIVED INTO THE ROOM, THE PATIENT WAS TACHYCARDIC. THE PATIENT WAS ANXIOUS AND NERVOUS. I DISCUSSED IT WITH THE PATIENT AND DECIDED TO GIVE HER 2 MG VERSED IV IN DIVIDED DOSES. I ALSO INCREASED THE IV FLUIDS. THE PATIENT RESPONDED APPROPRIATELY. I CHECKED LATERALITY AND THE LEVEL WHERE THE PROCEDURE WAS GOING TO BE PERFORMED WITH THE PATIENT AND THE SUPPORTING STAFF AT THE MOMENT OF THE TIME OUT IN THE PROCEDURE ROOM. UNDER FLUOROSCOPIC GUIDANCE, TARGETS WERE SELECTED AT THE INTERSECTION OF THE RIGHT TRANSVERSE PROCESS OF L4, L5 AND ALA OF S1 WITH ITS RESPECTIVE SUPERIOR ARTICULAR PROCESS. LIDOCAINE WAS USED TO NUMB THE SKIN AND THE SUBCUTANEOUS TISSUE BELOW IT. SPINAL NEEDLE, 22-GAUGE WAS ADVANCED UNDER FLUOROSCOPIC GUIDANCE AND FOLLOWING PATIENT FEEDBACK UNTIL THE TARGETS WERE REACHED. POSITION OF THE NEEDLES WAS VERIFIED WITH AP AND LATERAL VIEWS. AFTER PROPER POSITION OF THE NEEDLES WAS ACHIEVED, ISOVUE-M DYE 30% 0.1 ML WAS INJECTED AT EACH SITE SHOWING ADEQUATE SPREAD OF THE DYE. THEN A SOLUTION OF 0.4 ML OF BUPIVACAINE 0.25% WAS INJECTED AT EACH SITE. THERE WAS NO EVIDENCE OF BLOOD, PARESTHESIA OR CEREBROSPINAL FLUID DURING THE PROCEDURE. THE PATIENT WAS SENT TO THE RECOVERY ROOM. THE PATIENT WAS MOVING THE EXTREMITIES AND DOING WELL. THERE WAS NO COMPLICATION DURING THE PROCEDURE. FLUOROSCOPY TIME WAS 13 SECONDS POST PROCEDURE NOTE I WAS CALLED TO SEE THE PATIENT AT THE RECOVERY ROOM. SHE WAS COMPLAINING OF CHEST PAIN. THE PATIENT WAS TACHYCARDIC, BLOOD PRESSURE WAS NORMAL. THE PATIENT EXPLAINED THAT WHEN SHE FEELS LIKE THIS SHE USES HER NITROGLYCERIN, SUBLINGUAL, ALTHOUGH SHE DID NOT HAVE IT WITH HER. I DECIDED TO TRANSFER THE PATIENT TO THE EMERGENCY ROOM, EMS WAS CALLED. THE PATIENT WAS ORIENTED TIMES THREE AND COOPERATIVE. EMS ARRIVED. PATIENT RECEIVED ASPIRIN PO, AND SHE WAS TRANSFERRED TO THE ER. I WILL FOLLOW THE PATIENT'S CONDITION. FURTHER DETERMINATION FOR HER CASE WILL BE DONE AT THE NEXT VISIT. INSTRUCTIONS WERE GIVEN, QUESTIONS WERE ANSWERED, AND THE PATIENT EXPRESSED UNDERSTANDING AND AGREED WITH THE PLAN. I, HEBER HARRIS, DOCUMENTED THE ABOVE INFORMATION ACTING A SCRIBE FOR DR. MILLER. 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 IT IS NOT A COPY OF THE [employer] PROGRESS NOTE. ASPEND
== END ==
LOC: M PAIN 10:45
PROVIDERS: ATTEND Anesthesiology
DX: M47.817 Spondylosis without myelopathy or radiculopathy, lumbosacral region (principal); M47.816 Spondylosis without myelopathy or radiculopathy, lumbar region; M54.5 Low back pain; G89.29 Other chronic pain; G43.909 Migraine, unspecified, not intractable, without status migrainosus; Z86.59 Personal history of other mental and behavioral disorders; K21.9 Gastro-esophageal reflux disease without esophagitis; I10 Essential (primary) hypertension; Z87.891 Personal history of nicotine dependence; Z88.1 Allergy status to other antibiotic agents; Z88.6 Allergy status to analgesic agent; Z88.8 Allergy status to other drugs, medicaments and biological substances; Z86.14 Personal history of Methicillin resistant Staphylococcus aureus infection; E66.01 Morbid (severe) obesity due to excess calories; Z68.42 Body mass index [BMI] 45.0-49.9, adult; Z79.01 Long term (current) use of anticoagulants; Z79.899 Other long term (current) drug therapy
CPT/HCPCS: 64493; 64494; J2250; Q0162; Q9967

== ENCOUNTER 2019-07-19 19:31 | Emergency (ER) | payer OTHER ==
[2019-07-19] MEDS ORDERED: NITROGLYCERIN 0.4 MG SUBL TABLET SL PRN (20:00)
[2019-07-19] MEDS ORDERED: ASPIRIN 81 MG CHEW TABLET PO ONE (20:00)
[2019-07-19 20:05] VITALS: BP 163/83
[2019-07-19 20:15] LABS: BASO % 0.3 % (0.0-1.0); EOS # 0.1 10^3/uL (0.0-0.5); EOS % 1.3 % (0.0-3.0); LYMPH # 2.1 10^3/uL (1.5-5.0); LYMPH % 35.4 % (24.0-44.0); MEAN CORPUSCULAR HEMOGLOBIN 29.7 pg (27.0-33.0); MEAN CORPUSCULAR HGB CONC 33.3 g/dl (32.0-36.5); MEAN CORPUSCULAR VOLUME 89.1 fl (80.0-96.0); MONO # 0.4 10^3/uL (0.0-0.8); MONO % 7.3 % (0.0-5.0); NEUTROPHILS # 3.3 10^3/uL (1.5-8.5); NEUTROPHILS % 55.5 % (36.0-66.0); PLATELET COUNT, AUTOMATED 194 10^3/uL (150-450); RED BLOOD COUNT 5.05 10^6/uL (4.00-5.40)
[2019-07-19 20:26] LABS: INR 0.92; PROTHROMBIN TIME 12.1 SECONDS (11.8-14.0)
[2019-07-19 20:27] LABS: PARTIAL THROMBOPLASTIN TIME 26.9 SECONDS (25.0-38.4)
[2019-07-19] MEDS ORDERED: TIZA4TAB4 PO (20:39)
[2019-07-19] MEDS ORDERED: BELB150M SL (20:39)
[2019-07-19] MEDS ORDERED: FURO20TA2 PO (20:39)
[2019-07-19 20:48] LABS: BLOOD UREA NITROGEN 12 MG/DL (7-18); CALCIUM LEVEL 8.5 MG/DL (8.5-10.1); CARBON DIOXIDE LEVEL 29 MEQ/L (21-32); CHLORIDE LEVEL 109 MEQ/L (98-107); CK-MB VALUE MASS < 1.0 NG/ML (<3.6); CPK CREATINE PHOSPHOKINASE 124 U/L (26-192); CREATININE FOR GFR 0.89 MG/DL (0.55-1.30); GLOMERULAR FILTRATION RATE > 60.0 (>51); GLUCOSE, FASTING 96 MG/DL (70-100); MB/CK RELATIVE INDEX 0.81 (< OR =4); NT-PRO BNP 122 PG/ML (<125); POTASSIUM SERUM 4.3 MEQ/L (3.5-5.1); SODIUM LEVEL 144 MEQ/L (136-145); TROPONIN I < 0.02 NG/ML (< 0.10)
--- NOTE | 2019-07-19 21:03 | REPVR ---
PROCEDURE INFORMATION: Exam: US Duplex Lower Extremity Veins, Bilateral Exam date and time: 07/19/2019 8:52 PM Age: 54 years old Clinical indication: Pain; Leg, lower; Bilateral; Additional info: Leg pain/swelling TECHNIQUE: Imaging protocol: Real-time duplex ultrasound of the extremities with 2-D rm scale, color Doppler flow and spectral waveform analysis with image documentation. Complete exam focused on the bilateral lower extremity veins. COMPARISON: US Duplex, Ext,LOWER veins,unilat 07/21/2018 9:21 PM FINDINGS: Right deep veins: Unremarkable. The common femoral, femoral, proximal profunda femoral and popliteal veins are patent without thrombus. Normal Doppler waveforms. Normal compressibility and/or augmentation response. Right superficial veins: Saphenofemoral junction is patent without thrombus. Left deep veins: Unremarkable. The common femoral, femoral, proximal profunda femoral and popliteal veins are patent without thrombus. Normal Doppler waveforms. Normal compressibility and/or augmentation response. Left superficial veins: Saphenofemoral junction is patent without thrombus. Soft tissues: There is a probable Carrera's cyst right popliteal fossa measuring 2.4 x 0.6 x 1.3 cm. IMPRESSION: No evidence of deep vein thrombosis. Electronically signed by: Mery Pineda On 07/19/2019 21:02:28 PM
[2019-07-19 21:51] VITALS: BP 125/61
[2019-07-19] MEDS ORDERED: PERCOCET 5MG/325MG TAB PO ONE (22:15)
--- NOTE | 2019-07-20 08:40 | REP ---
CHEST PORTABLE: REASON: Chest pain. FINDINGS: The technique utilized in obtaining the radiograph has magnified the cardiac silhouette and accentuated the interstitial markings. The superior mediastinal structures are midline. The cardiac silhouette is unremarkable in size, shape, and position. The diaphragmatic surfaces of the lungs are regular, and the costophrenic angles are clear. The pulmonary thomason are clear. The imaged osseous structures are intact. IMPRESSION: There is no acute cardiopulmonary disease. Electronically Signed by Jt De Leon DO 07/20/2019 09:17 A
--- NOTE | 2019-07-20 11:17 | ECGEPIP ---
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
== END 2019-07-19 22:41 | disposition left against medical advice (07) ==
LOC: M ED 19:31
DX: R07.9 Chest pain, unspecified (principal); R22.43 Localized swelling, mass and lump, lower limb, bilateral; M71.20 Synovial cyst of popliteal space [Baker], unspecified knee; Z53.21 Procedure and treatment not carried out due to patient leaving prior to being seen by health care provider; I48.91 Unspecified atrial fibrillation; Z95.5 Presence of coronary angioplasty implant and graft; Z88.1 Allergy status to other antibiotic agents; Z88.5 Allergy status to narcotic agent; Z88.2 Allergy status to sulfonamides; Z88.8 Allergy status to other drugs, medicaments and biological substances; Z79.01 Long term (current) use of anticoagulants; Z79.899 Other long term (current) drug therapy

== ENCOUNTER → 2019-07-23 | Outpatient (CLI) | payer OTHER ==
[~2019-07-23] MED LIST changes: +BELB150M SL; +FURO20TA2 PO
--- NOTE | 2019-07-25 23:55 | ECWPNPC ---
PATIENT NAME: SMITH VIVEROS : 1965 GENDER: FEMALE VISIT DATE: 07/23/2019 DISCHARGE DATE: 07/23/19 1600 VISIT LOCKED DATE TIME: PHYSICIAN: ARELIS MILLER MD RESOURCE: ARELIS MILLER MD REASON FOR APPOINTMENT 1. PER DR Robb XIONG HISTORY OF PRESENT ILLNESS HISTORY OF PRESENT ILLNESS: PAIN THE PATIENT DESCRIBES THE PAIN... 54 YEAR OLD FEMALE PATIENT WITH A HISTORY OF CHRONIC LOW BACK PAIN. THE PATIENT DESCRIBES HER PAIN ACHING, HAVE IT ALL THE TIME, SHARP, THROBBING WITH A PAIN SCORE OF 6-9/10 DEPENDING ON PHYSICAL ACTIVITY. THE PATIENT RECEIVED A LUMBAR DIAGNOSTIC FACET BLOCK #1 ON 07/09/2019 THAT SHE SAYS HELPED BRING HER PAIN DOWN SIGNIFICANTLY. THE PATIENT DEVELOPED CHEST PAIN AND WAS BROUGHT TO THE EMERGENCY ROOM DUE TO TACHYCARDIA, AND LATER FOLLOWED UP WITH DR. BALLARD WHO ADJUSTED HER MEDICATION. THE PATIENT DENIES UNEXPLAINED WEIGHT LOSS, FEVER, CHILLS, NEW CHANGES IN HER URINARY OR BOWEL CONTROL. FALL RISK SCREENING: SCREENING :NO FALLS REPORTED IN THE LAST YEAR CURRENT MEDICATIONS TAKING NITROGLYCERIN 0.4 MG TABLET SUBLINGUAL DIRECTED SUBLINGUAL EVERY 5 MIN: MDD 3 TABLETS, NOTES: NONE LATELY TAKING SUCRALFATE 1 GM TABLET 1 TABLET ORALLY TWICE A DAY, NOTES: 07/09/19 AM TAKING ELIQUIS 5 MG TABLET 1 TAB(S) ORALLY TWICE DAILY, NOTES: 5 DAYS AGO TAKING PROTONIX 40 MG TABLET DELAYED RELEASE 1 TABLET ORALLY BID, NOTES: 07/09/19 AM TAKING METOPROLOL SUCCINATE 25 MG CAPSULE ER 24 HOUR SPRINKLE 1 CAPSULE ORALLY ONCE A DAY, NOTES: 07/09/19 AM TAKING FUROSEMIDE 20 MG TABLET 1 TABLET ORALLY ONCE A DAY NOT-TAKING BELBUCA 150 MCG FILM 1 FILM TO THE GUM BUCALLY ONCE A DAY NOT-TAKING ROBAXIN 500 MG TABLET 1.5 TABLETS ORALLY EVERY 4 HRS NOT-TAKING PAROXETINE HCL 30 MG TABLET 1 TABLET IN THE MORNING ORALLY ONCE A DAY MEDICATION LIST REVIEWED AND RECONCILED WITH THE PATIENT PAST MEDICAL HISTORY FIBROMYALGIA DX 4 YEARS AGO, BEING FOLLOWED AT PAIN CLINIC MIGRAINE HEADACHE STRESS INCONTINENCE DEPRESSION HYPERLIPIDEMIA VITAMIN D DEFICIENCY AFIB GERD INTERMITTENT A FIB STRESS INCONTINENCE, FEMALE CHRONIC PAIN SYNDROME UNSPECIFIED VITAMIN D DEFICIENCY MIGRAINE, UNSPECIFIED WITHOUT MENTION OF INTRACTABLE MIGRAINE WITHOUT MENTION OF STATUS MIGRAINOSUS HYPERTENSION CONGESTIVE HEART FAILURE PER ED DOC ALLERGIES ZIPSOR: ALLERGY FLEXERIL: AGGITATION - ALLERGY LYRICA: ANAPHYLAXIS - ALLERGY DICLOFENAC POTASSIUM: AGGITATION (ZIPSOR) - ALLERGY BACTRIM: NAUSEA/VOMITING - ALLERGY CYMBALTA: NAUSEA/VOMITING - SIDE EFFECTS AMITRIPTYLINE: AGGITATION - SIDE EFFECTS GABAPENTIN: HALLUCINATIONS - SIDE EFFECTS TIZANIDINE HCL: HIVES - ALLERGY KETOROLAC TROMETHAMINE: STOMACH PAIN - ALLERGY SURGICAL HISTORY TUBAL LIGATION 1987 DISTAL 4TH FINGER REPAIR SECONDARY TO TRAUMATIC INJURY BENIGN TUMOR REMOVAL RIGHT LEG DENTAL SURGERIES CHOLECYSTECTOMY 05/2014 HYSTERECTOMY STILL HAS 1 OVARY BUT NOT SURE WHICH ONE 2012 ABSCESS R GROIN 2015 LOOP RECORDER 10/2018 LEFT SHOULDER REPAIR 02/20/19 FAMILY HISTORY FATHER: , PNEUMONIA, CHF, NEUROPATHY, BLOOD CLOT, DIAGNOSED WITH DIABETES, UNSPECIFIED HEART DISEASE, UNSPECIFIED CEREBRAL ARTERY OCCLUSION WITH CEREBRAL INFARCTION MOTHER: , CANCER, DIABETES, HYPERTENSION, UNSPECIFIED HEART DISEASE, UNSPECIFIED CEREBRAL ARTERY OCCLUSION WITH CEREBRAL INFARCTION, OTHER MALIGNANT NEOPLASM OF UNSPECIFIED SITE SIBLINGS: ALIVE, LUPUS, DIABETES SON(S): ALIVE DAUGHTER(S): ALIVE 2 BROTHER(S) , 5 SISTER(S) . 1 SON(S) , 1 DAUGHTER(S) - HEALTHY. SOCIAL HISTORY GENERAL: TOBACCO USE ARE YOU A:FORMER SMOKER HOW LONG HAS IT BEEN SINCE YOU LAST SMOKED?5-10 YEARS VAPORNO E-CIGARETTEYES LATEX QUESTIONNAIRE LATEX ALLERGY : HAVE YOU EVER DEVELOPED ANY TYPE OF REACTION AFTER HANDLING LATEX PRODUCTS SUCH RUBBER GLOVES, CONDOMS, DIAPHRAGMS, BALLOONS, SOCKS, OR UNDERWEAR?NO LATEX ALLERGY : HAVE YOU EVER DEVELOPED ANY TYPE OF REACTION DURING OR AFTER DENTAL APPOINTMENT, VAGINAL/RECTAL EXAMINATION, SURGICAL PROCEDURE, OR ANY OTHER EXPOSURE?NO LATEX RISK : HAVE YOU EVER HAD ANY DIFFICULTY BREATHING OR HIVES AFTER EATING OR HANDLING ANY FRUITS, OR VEGETABLES; SUCH KIWI, BANANAS, STONE FRUITS, OR CHESTNUTSNO LATEX RISK : DO YOU HAVE A PREVIOUS PERSONAL HISTORY OF MORE THAN NINE SURGERIES, SPINA BIFIDA, OR REPEATED CATHERIZATIONS? YES - PLEASE INDICATE : > 9 SURGERIES LATEX RISK : ARE YOU FREQUENTLY EXPOSED TO LATEX PRODUCTS IN YOUR OCCUPATION?NO DATE ASKED : 07/22/2019 BMI CARE GOAL FOLLOW-UP ABOVE NORMAL BMI FOLLOW-UPLIFESTYLE EDUCATION REGARDING DIET ALCOHOL SCREENING DID YOU HAVE A DRINK CONTAINING ALCOHOL IN THE PAST YEAR?NO POINTS0 INTERPRETATIONNEGATIVE RECREATIONAL DRUG USE DRUG USE?NO CAFFEINE CAFFEINE USE?YES SEXUAL HX HAD SEX IN THE LAST 12 MONTHS (VAGINAL, ORAL, OR ANAL)?NO HAVE YOU EVER HAD AN STD?NO HIV / HEP-C SCREENING HIV TEST OFFERED TO PATIENT:YES DATE OFFERED:10/26/2017 TEST ACCEPTED:NO HEP-C TEST OFFERED TO PATIENT:NO REASON:PATIENT DECLINED BROCHURE PROVIDED TO PATIENTNO JEW NO ALEVISM BELIEFS THAT WOULD IMPACT HEALTH CARE. LANGUAGE ITALIAN. LEARNING BARRIERS / SPECIAL NEEDS CHANGE FROM LAST VISIT?NO BARRIERS TO LEARNING?NO HEARING IMPAIRED?NO VISION IMPAIRED?YES COGNITIVELY IMPAIRED?NO :CORRECTIVE LENSES READINESS TO LEARN?YES LEARNING PREFERENCES?NO LEARNING CAPABILITIES PRESENT?YES EMOTIONAL BARRIERS?YES SPECIAL DEVICES?NO DOMESTIC VIOLENCE DO YOU FEEL SAFE IN YOUR ENVIRONMENT?YES OCCUPATION: UNEMPLOYED. DIET: REGULAR. EXERCISE: NO REGULAR EXERCISE. MARITAL STATUS: .. OTHERS AT HOME: [id number], BROTHER, NEPHEW AND BOYFRIEND. NEW PATIENT PAIN DIARY TODAY'S VISIT 07/23/2019 PATIENT DESCRIBES PAIN :ACHING, HAVE IT ALL THE TIME, SHARP, THROBBING FROM 0-10, WHAT LEVEL IS YOUR PAIN TODAY?10 PRECIPITATING FACTORS ANYTHING ALLEVIATING FACTORS NOTHING IMPACT ON FUNCTION YES PAIN CLINIC PFS, CLERGY, PUBLIC HEALTH REFERRALS PFS REFERRAL NEEDED?NO CLERGY REFERRAL NEEDED?NO PUBLIC HEALTH REFERRAL NEEDED?NO WAS THE PROVIDER NOTIFIED OF ANY PERTINENT INFO?NO N/A HAS THE PATIENT BEEN EDUCATED REGARDING HIS/HER PLAN OF CARE?YES HAS THE PATIENT BEEN EDUCATED REGARDING PAIN, THE RISK FOR PAIN, THE IMPORTANCE OF EFFECTIVE PAIN MANAGEMENT, AND THE PAIN ASSESSMENT PROCESS?YES ADVANCE DIRECTIVE ADVANCE DIRECTIVE DISCUSSED WITH PATIENT:YES PT HAS NO ADVANCED DIRECTIVES, DECLINES HCP INFORMATION AND ASSISTANCE WITH FORM AT THIS TIME. HOSPITALIZATION/MAJOR DIAGNOSTIC PROCEDURE ABOVE SURGERIES MRSA RIGHT GROIN 2015, C DIFF 2015 CHEST PAIN 10/20/2016 [facility]- IM 09/2017 DIVERTICULITIS AND /HYPOTENSION 06/2018 SYNCOPE 09/2018 A-FIB AND LOOP RECORDER 10/2018 REVIEW OF SYSTEMS REVIEWED BY: PROVIDER: ARELIS MILLER MD . CONSTITUTIONAL: ANY CHANGE IN YOUR MEDICAL CONDITION? AFIB ON DIRECTOR OF RETAIL MERCHANDISING . CHILLS NO . FEVER NO . INFECTION: DO YOU HAVE NEW INFECTIONS? NO . DO YOU HAVE HISTORY OF MRSA? NO . MUSCULOSKELETAL: ANY NEW PATTERNS OF PAIN OR NUMBNESS? NO . GASTROENTEROLOGY: ANY NEW CHANGE IN BOWEL CONTROL? NO . GENITOURINARY: ANY NEW CHANGE IN BLADDER CONTROL? NO . IS THERE A CHANCE YOU COULD BE ? NO . HEMATOLOGY/LYMPH: DO YOU TAKE ANY BLOOD THINNERS? (FOR EXAMPLE- COUMADIN, PLAVIX, AGGRENOX, PLATEL, PRADAXA, OR XARELTO) ELIQUIS . WHEN WAS YOUR LAST DOSE? DATE: TIME: . NEUROLOGY: HAVE YOU FALLEN IN THE PAST 12 MONTHS? PT STATES THAT SHE FELL WHILE AT HOME, NO INJURY, NO REPORT TO ED . ANY NEW EXTREMITY NUMBNESS OR WEAKNESS? NO . CARDIOLOGY: DO YOU HAVE A PACEMAKER OR DEFIBRILLATOR? LOOP RECORDER IMPLANT . RESPIRATORY: HAVE YOU BEEN SICK IN THE PAST WEEK? NO . FEVER NO . FLU LIKE SYMPTOMS? NO . COUGH NO . INTEGUMENTARY: DO YOU HAVE ANY RASHES OR OPEN SORES? NO . ALLERGIC/IMMUNO: ARE YOU ALLERGIC TO IV DYE? NO . ANY NEW ALLERGIES? NO . PSYCHIATRIC: DO YOU HAVE THOUGHTS OF HURTING YOURSELF OR SOMEONE ELSE? NO . ARE YOU ABUSED, NEGLECTED, OR IN AN UNSAFE ENVIRONMENT? NO . ENDOCRINOLOGY: ARE YOU DIABETIC? NO . OTHER: DO YOU NEED ANY PRESCRIPTIONS? NO . IF YES, PLEASE LIST: ____ . ANY NEW PROBLEMS WITH YOUR MEDICATIONS? NO . WHEN DID YOU LAST EAT? ____ . WHEN DID YOU LAST DRINK? ____ . WHAT DID YOU LAST DRINK? ____ . NAME OF PERSON DRIVING YOU HOME? ____ . DO YOU HAVE ANY OTHER QUESTIONS OR CONCERNS NO . VITAL SIGNS WT 245.0 LBS, HT 61 IN, BMI 46.29 INDEX, BP 136/73 MM HG, HR 78 /MIN, RR 18 /MIN, TEMP 97.3 F, OXYGEN SAT % 99%, SAFE IN ENV? (Y/N) Y, NA INITIALS AW 1326, REVIEWED BY: DS. EXAMINATION GENERAL EXAMINATION: PATIENT IS ALERT O X 3 AND COOPERATIVE. TENDERNESS OVER THE PARASPINAL MUSCLE GROUP OF THE LOW BACK. PAIN INCREASES OVER THE LUMBAR FACET JOINTS WITH EXTENSION AND LATERAL ROTATION OF THE BACK. CT SCAN OF THE LUMBAR SPINE DONE ON 03/02/2018 SHOWS FACET ARTHROPATHY CHANGES. 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 VIVEROS'S PAIN MANAGEMENT CASE. DUE TO THE LUMBAR SPONDYLOSIS, I WOULD LIKE TO MOVE FORWARD WITH A RIGHT L4-L5 AND L5-S1 DIAGNOSTIC LUMBAR FACET BLOCK #2 TO CONSIDER RADIOFREQUENCY. WE DISCUSSED THE BENEFITS, RISKS, AND ALTERNATIVES OF THE PROCEDURE AND THE PATIENT WOULD LIKE TO PROCEED. THE PATIENT WILL FOLLOW UP IN SEVERAL WEEKS AFTER HER INJECTION TO SEE HOW IT IS HELPING WITH HER PAIN. THE PATIENT WILL BE BOOKED THE FIRST PATIENT FOR THE DAY OF HER PROCEDURE AND WILL HAVE AN IV. I DISCUSSED THE PATIENT'S CASE WITH DR. BALLARD, WHO EXPLAINED HE ADJUSTED HER CARDIAC MEDICATION AFTER EXPERIENCING TACHYCARDIA AT HER LAST VISIT HERE. INSTRUCTIONS WERE GIVEN, QUESTIONS WERE ANSWERED, PATIENT REPORTS UNDERSTANDING AND AGREES WITH THE PLAN. I, GABINO MIXON, DOCUMENTED THE ABOVE INFORMATION ACTING A SCRIBE FOR DR. MILLER. I HAVE REVIEWED THE ABOVE DOCUMENT, WRITTEN BY GABINO PALMER AND I VERIFY THAT IT IS ACCURATE. . OTHERS NOTES: FACET JOINT INJECTION MATERIAL WAS PRINTED AND REVIEWED WITH PATIETN. PATIENT ALSO VERBALIZES UNDERSTANDING OF PRE PROCEDURE INSTRUCTIONS REVIEWED. 07/23/2019 1553 NLJ. PROCEDURE CODES FA211 ESTABILISHED PATIENT [facility] FACILITY CHARGE G8427 CURRENT MEDS W/DOSAGES DOCUMENTED G8730 PAIN ASSESS POS TOOL F/U PLAN DOC DISPOSITION & COMMUNICATION FOLLOW UP 1-2 WEEK (REASON: RT LFBD #2 L4-L5, L5-S1) ELECTRONICALLY SIGNED BY ARELIS MILLER MD, MD ON 07/25/2019 AT 01:47 PM EDT DISCLAIMER : THIS IS A VISIT SUMMARY EXTRACTED FROM THE [employer] CHART. IT IS NOT A COPY OF THE [employer] PROGRESS NOTE. ASPEND
== END ==
LOC: M PAIN 14:00
PROVIDERS: ATTEND Anesthesiology
DX: M47.816 Spondylosis without myelopathy or radiculopathy, lumbar region (principal); M47.817 Spondylosis without myelopathy or radiculopathy, lumbosacral region; G89.29 Other chronic pain; Z86.79 Personal history of other diseases of the circulatory system; Z87.898 Personal history of other specified conditions; M79.7 Fibromyalgia; G43.909 Migraine, unspecified, not intractable, without status migrainosus; Z86.59 Personal history of other mental and behavioral disorders; K21.9 Gastro-esophageal reflux disease without esophagitis; I10 Essential (primary) hypertension; Z87.891 Personal history of nicotine dependence; Z88.1 Allergy status to other antibiotic agents; Z88.6 Allergy status to analgesic agent; Z88.8 Allergy status to other drugs, medicaments and biological substances; Z86.14 Personal history of Methicillin resistant Staphylococcus aureus infection; Z96.89 Presence of other specified functional implants; E66.01 Morbid (severe) obesity due to excess calories; Z68.42 Body mass index [BMI] 45.0-49.9, adult; Z79.01 Long term (current) use of anticoagulants; Z79.899 Other long term (current) drug therapy

== ENCOUNTER → 2019-08-01 | Outpatient (CLI) | payer OTHER ==
[~2019-08-01] MED LIST changes: +BUPIVACAINE HCL 0.25% 30ML VIAL As Ordered ONE; +ISOVUE-M 300 61% 15ML VIAL As Ordered ONE; +LIDOCAINE 1% SDV 30ML VIAL As Ordered ONE; +ONDANSETRON 4 MG ORAL DISINTEGRATING TAB As Ordered ONE; +diazePAM 5 MG TAB As Ordered ONE
--- NOTE | 2019-08-01 12:44 | REP ---
C-ARM VIEWS LUMBAR SPINE: CLINICAL HISTORY: Pain. Two C-arm views of the lumbar spine performed during right lumbar facet injection performed by Dr. Hi. Three needles are seen along the right lower lumbar facet joints. 17 seconds of fluoroscopy time utilized. Electronically Signed by Jose Martinez MD 08/01/2019 03:53 P
--- NOTE | 2019-08-02 00:40 | ECWPNPC ---
PATIENT NAME: SMITH VIVEROS : 1965 GENDER: FEMALE VISIT DATE: 08/01/2019 DISCHARGE DATE: 08/01/19 1219 VISIT LOCKED DATE TIME: PHYSICIAN: ARELIS MILLER MD RESOURCE: ARELIS MILLER MD REASON FOR APPOINTMENT 1. RT LFBD #2 L4-L5, L5-S1 PHONE PAT COMPLETED HISTORY OF PRESENT ILLNESS HISTORY OF PRESENT ILLNESS: PAIN THE PATIENT DESCRIBES THE PAIN... FALL RISK SCREENING: SCREENING :NO FALLS REPORTED IN THE LAST YEAR CURRENT MEDICATIONS TAKING NITROGLYCERIN 0.4 MG TABLET SUBLINGUAL DIRECTED SUBLINGUAL EVERY 5 MIN: MDD 3 TABLETS, NOTES: 07/10/2019 TAKING SUCRALFATE 1 GM TABLET 1 TABLET ORALLY TWICE A DAY, NOTES: 08/01/2019699 TAKING ELIQUIS 5 MG TABLET 1 TAB(S) ORALLY TWICE DAILY, NOTES: 07/28/2019 TAKING PROTONIX 40 MG TABLET DELAYED RELEASE 1 TABLET ORALLY BID, NOTES: 08/01/2019699 TAKING METOPROLOL SUCCINATE 100 MG CAPSULE ER 24 HOUR SPRINKLE 1 CAPSULE ORALLY ONCE A DAY, NOTES: 08/01/2019699 TAKING FUROSEMIDE 20 MG TABLET 1 TABLET ORALLY ONCE A DAY, NOTES: 07/31/20191999 NOT-TAKING BELBUCA 150 MCG FILM 1 FILM TO THE GUM BUCALLY ONCE A DAY NOT-TAKING ROBAXIN 500 MG TABLET 1.5 TABLETS ORALLY EVERY 4 HRS NOT-TAKING PAROXETINE HCL 30 MG TABLET 1 TABLET IN THE MORNING ORALLY ONCE A DAY MEDICATION LIST REVIEWED AND RECONCILED WITH THE PATIENT PAST MEDICAL HISTORY FIBROMYALGIA DX 4 YEARS AGO, BEING FOLLOWED AT PAIN CLINIC MIGRAINE HEADACHE STRESS INCONTINENCE DEPRESSION HYPERLIPIDEMIA VITAMIN D DEFICIENCY AFIB GERD INTERMITTENT A FIB STRESS INCONTINENCE, FEMALE CHRONIC PAIN SYNDROME UNSPECIFIED VITAMIN D DEFICIENCY MIGRAINE, UNSPECIFIED WITHOUT MENTION OF INTRACTABLE MIGRAINE WITHOUT MENTION OF STATUS MIGRAINOSUS HYPERTENSION CONGESTIVE HEART FAILURE PER ED DOC-07/09/2019- PT STATES SHE HAS SEEN DR CASTILLO SINCE AND IS CLEARED FROM THAT CHF EPISODE ALLERGIES ZIPSOR: ALLERGY FLEXERIL: AGGITATION - ALLERGY LYRICA: ANAPHYLAXIS - ALLERGY DICLOFENAC POTASSIUM: AGGITATION (ZIPSOR) - ALLERGY BACTRIM: NAUSEA/VOMITING - ALLERGY CYMBALTA: NAUSEA/VOMITING - SIDE EFFECTS AMITRIPTYLINE: AGGITATION - SIDE EFFECTS GABAPENTIN: HALLUCINATIONS - SIDE EFFECTS TIZANIDINE HCL: HIVES - ALLERGY KETOROLAC TROMETHAMINE: STOMACH PAIN - ALLERGY SURGICAL HISTORY TUBAL LIGATION 1987 DISTAL 4TH FINGER REPAIR SECONDARY TO TRAUMATIC INJURY BENIGN TUMOR REMOVAL RIGHT LEG DENTAL SURGERIES CHOLECYSTECTOMY 05/2014 HYSTERECTOMY STILL HAS 1 OVARY BUT NOT SURE WHICH ONE 2012 ABSCESS R GROIN 2014 LOOP RECORDER 10/2018 LEFT SHOULDER REPAIR 02/20/19 FAMILY HISTORY FATHER: , PNEUMONIA, CHF, NEUROPATHY, BLOOD CLOT, DIAGNOSED WITH DIABETES, UNSPECIFIED HEART DISEASE, UNSPECIFIED CEREBRAL ARTERY OCCLUSION WITH CEREBRAL INFARCTION MOTHER: , CANCER, DIABETES, HYPERTENSION, UNSPECIFIED HEART DISEASE, UNSPECIFIED CEREBRAL ARTERY OCCLUSION WITH CEREBRAL INFARCTION, OTHER MALIGNANT NEOPLASM OF UNSPECIFIED SITE SIBLINGS: ALIVE, LUPUS, DIABETES SON(S): ALIVE DAUGHTER(S): ALIVE 2 BROTHER(S) , 5 SISTER(S) . 1 SON(S) , 1 DAUGHTER(S) - HEALTHY. SOCIAL HISTORY GENERAL: TOBACCO USE ARE YOU A:FORMER SMOKER HOW LONG HAS IT BEEN SINCE YOU LAST SMOKED?5-10 YEARS VAPORNO E-CIGARETTEYES LATEX QUESTIONNAIRE LATEX ALLERGY : HAVE YOU EVER DEVELOPED ANY TYPE OF REACTION AFTER HANDLING LATEX PRODUCTS SUCH RUBBER GLOVES, CONDOMS, DIAPHRAGMS, BALLOONS, SOCKS, OR UNDERWEAR?NO LATEX ALLERGY : HAVE YOU EVER DEVELOPED ANY TYPE OF REACTION DURING OR AFTER DENTAL APPOINTMENT, VAGINAL/RECTAL EXAMINATION, SURGICAL PROCEDURE, OR ANY OTHER EXPOSURE?NO DATE ASKED : 07/22/2019 LATEX RISK : HAVE YOU EVER HAD ANY DIFFICULTY BREATHING OR HIVES AFTER EATING OR HANDLING ANY FRUITS, OR VEGETABLES; SUCH KIWI, BANANAS, STONE FRUITS, OR CHESTNUTSNO LATEX RISK : DO YOU HAVE A PREVIOUS PERSONAL HISTORY OF MORE THAN NINE SURGERIES, SPINA BIFIDA, OR REPEATED CATHERIZATIONS? YES - PLEASE INDICATE : > 9 SURGERIES LATEX RISK : ARE YOU FREQUENTLY EXPOSED TO LATEX PRODUCTS IN YOUR OCCUPATION?NO BMI CARE GOAL FOLLOW-UP ABOVE NORMAL BMI FOLLOW-UPLIFESTYLE EDUCATION REGARDING DIET ALCOHOL SCREENING DID YOU HAVE A DRINK CONTAINING ALCOHOL IN THE PAST YEAR?NO POINTS0 INTERPRETATIONNEGATIVE RECREATIONAL DRUG USE DRUG USE?NO CAFFEINE CAFFEINE USE?YES SEXUAL HX HAD SEX IN THE LAST 12 MONTHS (VAGINAL, ORAL, OR ANAL)?NO HAVE YOU EVER HAD AN STD?NO HIV / HEP-C SCREENING HIV TEST OFFERED TO PATIENT:YES DATE OFFERED:10/26/2017 TEST ACCEPTED:NO HEP-C TEST OFFERED TO PATIENT:NO REASON:PATIENT DECLINED BROCHURE PROVIDED TO PATIENTNO TAOISM NO CHEONDOISM BELIEFS THAT WOULD IMPACT HEALTH CARE. LANGUAGE GRENADIAN. LEARNING BARRIERS / SPECIAL NEEDS CHANGE FROM LAST VISIT?NO BARRIERS TO LEARNING?NO HEARING IMPAIRED?NO VISION IMPAIRED?YES COGNITIVELY IMPAIRED?NO :CORRECTIVE LENSES READINESS TO LEARN?YES LEARNING PREFERENCES?NO LEARNING CAPABILITIES PRESENT?YES EMOTIONAL BARRIERS?YES SPECIAL DEVICES?NO DOMESTIC VIOLENCE DO YOU FEEL SAFE IN YOUR ENVIRONMENT?YES OCCUPATION: UNEMPLOYED. DIET: REGULAR. EXERCISE: NO REGULAR EXERCISE. MARITAL STATUS: .. OTHERS AT HOME: [id number], BROTHER, NEPHEW AND BOYFRIEND. NEW PATIENT PAIN DIARY TODAY'S VISIT 08/01/2019 PATIENT DESCRIBES PAIN :ACHING, HAVE IT ALL THE TIME, SHARP, THROBBING FROM 0-10, WHAT LEVEL IS YOUR PAIN TODAY?10 PRECIPITATING FACTORS ANY ACTIVITY ALLEVIATING FACTORS NOTHING REALLY HELPS IMPACT ON FUNCTION YES PAIN CLINIC PFS, CLERGY, PUBLIC HEALTH REFERRALS PFS REFERRAL NEEDED?NO CLERGY REFERRAL NEEDED?NO PUBLIC HEALTH REFERRAL NEEDED?NO WAS THE PROVIDER NOTIFIED OF ANY PERTINENT INFO?NO N/A HAS THE PATIENT BEEN EDUCATED REGARDING HIS/HER PLAN OF CARE?YES HAS THE PATIENT BEEN EDUCATED REGARDING PAIN, THE RISK FOR PAIN, THE IMPORTANCE OF EFFECTIVE PAIN MANAGEMENT, AND THE PAIN ASSESSMENT PROCESS?YES ADVANCE DIRECTIVE ADVANCE DIRECTIVE DISCUSSED WITH PATIENT:YES PT HAS NO ADVANCED DIRECTIVES, DECLINES HCP INFORMATION AND ASSISTANCE WITH FORM AT THIS TIME. HOSPITALIZATION/MAJOR DIAGNOSTIC PROCEDURE ABOVE SURGERIES MRSA RIGHT GROIN 2015, C DIFF 2015 CHEST PAIN 10/20/2016 [facility] 09/2017 DIVERTICULITIS AND /HYPOTENSION 06/2018 SYNCOPE 09/2018 A-FIB AND LOOP RECORDER 10/2018 REVIEW OF SYSTEMS REVIEWED BY: PROVIDER: ARELIS MILLER MD . CONSTITUTIONAL: ANY CHANGE IN YOUR MEDICAL CONDITION? NO . CHILLS NO . FEVER NO . INFECTION: DO YOU HAVE NEW INFECTIONS? NO . DO YOU HAVE HISTORY OF MRSA? YES , NOT CURRENTLY ACTIVE . MUSCULOSKELETAL: ANY NEW PATTERNS OF PAIN OR NUMBNESS? NO . GASTROENTEROLOGY: ANY NEW CHANGE IN BOWEL CONTROL? NO . GENITOURINARY: ANY NEW CHANGE IN BLADDER CONTROL? NO . IS THERE A CHANCE YOU COULD BE ? NO . HEMATOLOGY/LYMPH: DO YOU TAKE ANY BLOOD THINNERS? (FOR EXAMPLE- COUMADIN, PLAVIX, AGGRENOX, PLATEL, PRADAXA, OR XARELTO) YES ELIQUIS . WHEN WAS YOUR LAST DOSE? DATE: 07/27 TIME: PM . NEUROLOGY: HAVE YOU FALLEN IN THE PAST 12 MONTHS? YES PT REPORTS SHE FELL YESTERDAY, HER LEGS "GAVE OUT", FALLING ONTO HER KNEES AND THEN ONTO HER LEFT SIDE. PT DENIES INJURY , NO ED VISIT, NO XRAYS DONE. . ANY NEW EXTREMITY NUMBNESS OR WEAKNESS? NO . CARDIOLOGY: DO YOU HAVE A PACEMAKER OR DEFIBRILLATOR? PT HAS A LOOP RECORDER . RESPIRATORY: HAVE YOU BEEN SICK IN THE PAST WEEK? NO . FEVER NO . FLU LIKE SYMPTOMS? NO . COUGH NO . INTEGUMENTARY: DO YOU HAVE ANY RASHES OR OPEN SORES? NO . ALLERGIC/IMMUNO: ARE YOU ALLERGIC TO IV DYE? NO . ANY NEW ALLERGIES? NO . PSYCHIATRIC: DO YOU HAVE THOUGHTS OF HURTING YOURSELF OR SOMEONE ELSE? NO . ARE YOU ABUSED, NEGLECTED, OR IN AN UNSAFE ENVIRONMENT? NO . ENDOCRINOLOGY: ARE YOU DIABETIC? NO . OTHER: DO YOU NEED ANY PRESCRIPTIONS? NO . IF YES, PLEASE LIST: ____ . ANY NEW PROBLEMS WITH YOUR MEDICATIONS? NO . WHEN DID YOU LAST EAT? 07/31/20191999 . WHEN DID YOU LAST DRINK? 08/01/2019 07 . WHAT DID YOU LAST DRINK? WATER . NAME OF PERSON DRIVING YOU HOME? ____[employer] . DO YOU HAVE ANY OTHER QUESTIONS OR CONCERNS NO . VITAL SIGNS WT 247.4 LBS, HT 61 IN, BMI 46.74 INDEX, BP 144/99 MM HG, HR 82 /MIN, RR 18 /MIN, TEMP 97.5 F, OXYGEN SAT % 100%, SAFE IN ENV? (Y/N) YES, NA INITIALS AW 0831, REVIEWED BY: ASH. ASSESSMENTS SPONDYLOSIS WITHOUT MYELOPATHY OR RADICULOPATHY, LUMBAR REGION - M47.816 (PRIMARY) SPONDYLOSIS WITHOUT MYELOPATHY OR RADICULOPATHY, LUMBOSACRAL REGION - M47.817 TREATMENT SPONDYLOSIS WITHOUT MYELOPATHY OR RADICULOPATHY, LUMBAR REGION [facility] FACET BLOCK (PAIN)[id number] PROCEDURES PN LUMBAR FACET BLOCK DIAGNOSTIC PRE PROCEDURE DIAGNOSIS LUMBAR SPONDYLOSIS, LUMBOSACRAL SPONDYLOSIS POST PROCEDURE DIAGNOSIS LUMBAR SPONDYLOSIS, LUMBOSACRAL SPONDYLOSIS PROCEDURE RIGHT L4-L5 AND RIGHT L5-S1 FACET BLOCK DIAGNOSTIC NUMBER [address] ARELIS MILLER SENIOR OUTSIDE SALES REPRESENTATIVE NONE ANESTHESIA LOCAL PRE PROCEDURE NOTE THE PATIENT WITH HISTORY OF CHRONIC LOW BACK PAIN. I EVALUATED THE PATIENT AND REVIEWED THE CHART. I WENT OVER THE RISKS, ALTERNATIVES, AND BENEFITS ASSOCIATED WITH THIS PROCEDURE. THE PATIENT WOULD LIKE TO PROCEED AND GAVE CONSENT TO PERFORM THE PROCEDURE. AGREED WITH THE PATIENT WE ARE DOING THIS PROCEDURE TO DETERMINE IF THE PATIENT IS A CANDIDATE FOR A RADIOFREQUENCY ABLATION OF THE FACETS JOINTS. THE PATIENT DENIES UNEXPLAINABLE WEIGHT LOSS, FEVER, CHILLS, OR NEW CHANGES IN URINARY OR BOWEL CONTROL. THE PATIENT IS COVID-19 NEGATIVE DESCRIPTION OF PROCEDURE THE PATIENT WAS BROUGHT TO THE PROCEDURE ROOM AND PLACED IN THE PRONE POSITION. THE LUMBOSACRAL AREA WAS CLEANED WITH CHLORAPREP SOLUTION AND DRAPED ASEPTICALLY. THE PROCEDURE WAS DONE UNDER STERILE CONDITIONS. I CHECKED LATERALITY AND THE LEVEL WHERE THE PROCEDURE WAS GOING TO BE PERFORMED WITH THE PATIENT AND THE SUPPORTING STAFF AT THE MOMENT OF THE TIME OUT IN THE PROCEDURE ROOM. UNDER FLUOROSCOPIC GUIDANCE, TARGETS WERE SELECTED AT THE INTERSECTION OF THE RIGHT TRANSVERSE PROCESS OF L4, L5 AND ALA OF S1 WITH ITS RESPECTIVE SUPERIOR ARTICULAR PROCESS. LIDOCAINE WAS USED TO NUMB THE SKIN AND THE SUBCUTANEOUS TISSUE BELOW IT. SPINAL NEEDLE, 22-GAUGE, WAS ADVANCED UNDER FLUOROSCOPIC GUIDANCE AND FOLLOWING PATIENT FEEDBACK UNTIL THE TARGETS WERE REACHED. POSITION OF THE NEEDLES WAS VERIFIED WITH AP AND LATERAL VIEWS. AFTER PROPER POSITION OF THE NEEDLES WAS ACHIEVED, ISOVUE-M DYE 30%, 0.1 ML, WAS INJECTED AT EACH SITE SHOWING ADEQUATE SPREAD OF THE DYE. THEN A SOLUTION OF 0.4 ML OF BUPIVACAINE 0.25% WAS INJECTED AT EACH SITE. THERE WAS NO EVIDENCE OF BLOOD, PARESTHESIA OR CEREBROSPINAL FLUID DURING THE PROCEDURE. THE PATIENT WAS SENT TO THE RECOVERY ROOM. THE PATIENT WAS MOVING THE EXTREMITIES AND DOING WELL. THERE WAS NO COMPLICATION DURING THE PROCEDURE. FLUOROSCOPY TIME WAS 17 SECONDS POST PROCEDURE NOTE THE PATIENT WILL DOCUMENT HIS PAIN LEVEL AND RESPONSE TO THIS PROCEDURE EVERY 30 MINUTES. THE PATIENT WILL BE SEEN IN A FOLLOW UP IN THE NEXT FEW WEEKS. FURTHER DETERMINATION FOR HIS CASE WILL BE DONE AT THE NEXT VISIT. INSTRUCTIONS WERE GIVEN, QUESTIONS WERE ANSWERED, AND THE PATIENT EXPRESSED UNDERSTANDING AND AGREED WITH THE PLAN. I, HEBER HARRIS, DOCUMENTED THE ABOVE INFORMATION ACTING A SCRIBE FOR DR. MILLER. I HAVE REVIEWED THE ABOVE DOCUMENT, WRITTEN BY HEBER HARRIS, TOOTH GRINDER, AND I VERIFY THAT IT IS ACCURATE PROCEDURE CODES 78200 INJ PARAVERT F JNT L/S 1 LEV, MODIFIERS: RT [address]2017 INJ PARAVERT F JNT L/S 2 LEV, MODIFIERS: RT DISPOSITION & COMMUNICATION FOLLOW UP F/UP WITH EXHIBITIONS AND COLLECTIONS MANAGER (REASON: POST LFBD #2-RT L4-5, L5-S1) ELECTRONICALLY SIGNED BY ARELIS MILLER MD, ON 08/01/2019 AT 05:36 PM EDT DISCLAIMER : THIS IS A VISIT SUMMARY EXTRACTED FROM THE [employer] CHART. IT IS NOT A COPY OF THE [employer] PROGRESS NOTE. MTDD
== END ==
LOC: M PAIN 08:30
PROVIDERS: ATTEND Anesthesiology
DX: M47.816 Spondylosis without myelopathy or radiculopathy, lumbar region (principal); M47.817 Spondylosis without myelopathy or radiculopathy, lumbosacral region
CPT/HCPCS: 64493; 64494; Q0162; Q9967

== ENCOUNTER → 2019-08-18 | Outpatient (CLI) | payer OTHER ==
[~2019-08-18] MED LIST changes: -BUPIVACAINE HCL 0.25% 30ML VIAL As Ordered ONE; -ISOVUE-M 300 61% 15ML VIAL As Ordered ONE; +LATU20TA PO; -LIDOCAINE 1% SDV 30ML VIAL As Ordered ONE; -MECL-58; -ONDANSETRON 4 MG ORAL DISINTEGRATING TAB As Ordered ONE; +PATIENT COMMENT; +RAME8TAB2 PO; -diazePAM 5 MG TAB As Ordered ONE
[2019-08-18 11:25] LABS: ALBUMIN 3.3 GM/DL (3.2-5.2); ALT/SGPT 41 U/L (12-78); BILIRUBIN,TOTAL 0.4 MG/DL (0.2-1.0); BLOOD UREA NITROGEN 12 MG/DL (7-18); CALCIUM LEVEL 9.2 MG/DL (8.5-10.1); CARBON DIOXIDE LEVEL 29 MEQ/L (21-32); CHLORIDE LEVEL 108 MEQ/L (98-107); CREATININE FOR GFR 0.92 MG/DL (0.55-1.30); FREE THYROXINE INDEX 3.7 % (1.3-4.8); GLOMERULAR FILTRATION RATE > 60.0 (>51); GLUCOSE, FASTING 89 MG/DL (70-100); POTASSIUM SERUM 4.2 MEQ/L (3.5-5.1); SODIUM LEVEL 142 MEQ/L (136-145); T UPTAKE 31 % (30-39); THYROXINE (T4) 11.8 UG/DL (4.5-12.0); TOTAL 25(OH) VITAMIN D 24.3 NG/ML (30.0-100.0); TOTAL PROTEIN 6.8 GM/DL (6.4-8.2)
== END ==
LOC: M LAB 09:43
PROVIDERS: ATTEND Psychiatry & Neurology Child & Adolescent Psychiatry
DX: F32.9 Major depressive disorder, single episode, unspecified (principal); F41.1 Generalized anxiety disorder; F43.10 Post-traumatic stress disorder, unspecified

== ENCOUNTER → 2019-08-18 | Outpatient (CLI) | payer OTHER, MEDICAID ==
--- NOTE | 2019-08-20 02:17 | ECWPNPC ---
PATIENT NAME: SMITH VIVEROS : 1965 GENDER: FEMALE VISIT DATE: 08/18/2019 DISCHARGE DATE: 08/18/19922 VISIT LOCKED DATE TIME: PHYSICIAN: ANISA LOCO RESOURCE: ANISA LOCO REASON FOR APPOINTMENT 1. POST FACET BLK HISTORY OF PRESENT ILLNESS GENERAL: - 54 YEAR OLD FEMALE IN FOR POST DIAGNOSTIC FACET BLOCK #2. SHE FEELS THE PROCEDURE WAS HELPFUL FOR A FEW DAYS. SHE RATES HER PAIN CURRENTLY AT A 10 OUT OF 10 AND DESCRIBES IT ACHING, SHARP, AND STABBING. PAIN SCREENING: PATIENT HAS A COMPLAINT OF ACUTE OR CHRONIC PAIN :YES [id number]/10, [id number]-71/10. PROCEDURE DID NOT WORK LOCATION OF PAIN:LOW BACK INTENSITY OF PAIN (SCALE OF 1 TO 10):10 WHAT DOES YOUR PAIN FEEL LIKE:ACHING, SHARP, STABBING DURATION:CONTINOUS, CONSTANT, ALL DAY, AWAKENS FROM SLEEP PAIN IS INCREASED BY:ACTIVITIES, PROLONGED STANDING PAIN IS DECREASED BY: NOTHING PAIN HAS INTERFERED WITH THE FOLLOWING:MOOD, WALKING ABILITY, HOUSEWORK, SLEEP, RELATIONSHIP WITH OTHERS, ENJOYMENT OF LIFE PLAN/GOALS/TREATMENT/INTERVENTION/FOLLOW UP:SEE PLAN FALL RISK SCREENING: SCREENING :ONE FALL WITHOUT INJURY IN THE PAST YEAR YESTERDAY NURSING NOTE: -. PAIN CENTER INTAKE QUESTIONS: DO YOU HAVE A HISTORY OF MRSA? :NO DO YOU TAKE A BLOOD THINNERS? :YES JAVED, 8AM ON 08/18/19 DO YOU HAVE ANY BLEEDING DISORDERS? :NO ANY NEW NUMBNESS OR WEAKNESS IN YOUR LEGS OR ARMS? :NO ANY PACEMAKER,DEFIBRILLATOR, OR DORSAL COLUMN STIMULATOR? :NO DO YOU HAVE ANY RASHES OR OPEN SORES? :NO ARE YOU ALLERGIC TO IV DYE? :NO ARE YOU DIABETIC? :NO ANY NEW PROBLEMS WITH YOUR MEDICATIONS? :NO HAVE YOU RECEIVED A VACCINE IN THE PAST 30 DAYS? :NO DO YOU PLAN TO RECEIVE A VACCINE IN THE NEXT 21 DAYS? :NO DO YOU NEED ANY PRESCRIPTION? :NO DO YOU TAKE ANY IMMUNOSUPPRESSIVE MEDICATIONS? :NO CURRENT MEDICATIONS TAKING NITROGLYCERIN 0.4 MG TABLET SUBLINGUAL DIRECTED SUBLINGUAL EVERY 5 MIN: MDD 3 TABLETS, NOTES: 07/10/2019 TAKING SUCRALFATE 1 GM TABLET 1 TABLET ORALLY TWICE A DAY, NOTES: 08/01/2019 0700 TAKING ELIQUIS 5 MG TABLET 1 TAB(S) ORALLY TWICE DAILY, NOTES: 07/28/2019 TAKING PROTONIX 40 MG TABLET DELAYED RELEASE 1 TABLET ORALLY BID, NOTES: 08/01/2019 0700 TAKING METOPROLOL SUCCINATE 100 MG CAPSULE ER 24 HOUR SPRINKLE 1 CAPSULE ORALLY ONCE A DAY, NOTES: 08/01/2019 0700 TAKING FUROSEMIDE 20 MG TABLET 1 TABLET ORALLY ONCE A DAY, NOTES: 07/31/2019 2000 NOT-TAKING BELBUCA 150 MCG FILM 1 FILM TO THE GUM BUCALLY ONCE A DAY NOT-TAKING ROBAXIN 500 MG TABLET 1.5 TABLETS ORALLY EVERY 4 HRS NOT-TAKING PAROXETINE HCL 30 MG TABLET 1 TABLET IN THE MORNING ORALLY ONCE A DAY MEDICATION LIST REVIEWED AND RECONCILED WITH THE PATIENT PAST MEDICAL HISTORY FIBROMYALGIA DX 4 YEARS AGO, BEING FOLLOWED AT PAIN CLINIC MIGRAINE HEADACHE STRESS INCONTINENCE DEPRESSION HYPERLIPIDEMIA VITAMIN D DEFICIENCY AFIB GERD INTERMITTENT A FIB STRESS INCONTINENCE, FEMALE CHRONIC PAIN SYNDROME UNSPECIFIED VITAMIN D DEFICIENCY MIGRAINE, UNSPECIFIED WITHOUT MENTION OF INTRACTABLE MIGRAINE WITHOUT MENTION OF STATUS MIGRAINOSUS HYPERTENSION CONGESTIVE HEART FAILURE PER ED DOC-07/09/2019- PT STATES SHE HAS SEEN DR CASTILLO SINCE AND IS CLEARED FROM THAT CHF EPISODE ALLERGIES ZIPSOR: ALLERGY FLEXERIL: AGGITATION - ALLERGY LYRICA: ANAPHYLAXIS - ALLERGY DICLOFENAC POTASSIUM: AGGITATION (ZIPSOR) - ALLERGY BACTRIM: NAUSEA/VOMITING - ALLERGY CYMBALTA: NAUSEA/VOMITING - SIDE EFFECTS AMITRIPTYLINE: AGGITATION - SIDE EFFECTS GABAPENTIN: HALLUCINATIONS - SIDE EFFECTS TIZANIDINE HCL: HIVES - ALLERGY KETOROLAC TROMETHAMINE: STOMACH PAIN - ALLERGY SURGICAL HISTORY TUBAL LIGATION 1988 DISTAL 4TH FINGER REPAIR SECONDARY TO TRAUMATIC INJURY BENIGN TUMOR REMOVAL RIGHT LEG DENTAL SURGERIES CHOLECYSTECTOMY 05/2014 HYSTERECTOMY STILL HAS 1 OVARY BUT NOT SURE WHICH ONE 2012 ABSCESS R GROIN 2015 LOOP RECORDER 10/2018 LEFT SHOULDER REPAIR 02/20/19 FAMILY HISTORY FATHER: , PNEUMONIA, CHF, NEUROPATHY, BLOOD CLOT, DIAGNOSED WITH DIABETES, UNSPECIFIED HEART DISEASE, UNSPECIFIED CEREBRAL ARTERY OCCLUSION WITH CEREBRAL INFARCTION MOTHER: , CANCER, DIABETES, HYPERTENSION, UNSPECIFIED HEART DISEASE, UNSPECIFIED CEREBRAL ARTERY OCCLUSION WITH CEREBRAL INFARCTION, OTHER MALIGNANT NEOPLASM OF UNSPECIFIED SITE SIBLINGS: ALIVE, LUPUS, DIABETES SON(S): ALIVE DAUGHTER(S): ALIVE 2 BROTHER(S) , 5 SISTER(S) . 1 SON(S) , 1 DAUGHTER(S) - HEALTHY. SOCIAL HISTORY GENERAL: TOBACCO USE ARE YOU A:FORMER SMOKER HOW LONG HAS IT BEEN SINCE YOU LAST SMOKED?5-10 YEARS VAPORNO E-CIGARETTEYES LATEX QUESTIONNAIRE LATEX ALLERGY : HAVE YOU EVER DEVELOPED ANY TYPE OF REACTION AFTER HANDLING LATEX PRODUCTS SUCH RUBBER GLOVES, CONDOMS, DIAPHRAGMS, BALLOONS, SOCKS, OR UNDERWEAR?NO LATEX ALLERGY : HAVE YOU EVER DEVELOPED ANY TYPE OF REACTION DURING OR AFTER DENTAL APPOINTMENT, VAGINAL/RECTAL EXAMINATION, SURGICAL PROCEDURE, OR ANY OTHER EXPOSURE?NO LATEX RISK : HAVE YOU EVER HAD ANY DIFFICULTY BREATHING OR HIVES AFTER EATING OR HANDLING ANY FRUITS, OR VEGETABLES; SUCH KIWI, BANANAS, STONE FRUITS, OR CHESTNUTSNO LATEX RISK : DO YOU HAVE A PREVIOUS PERSONAL HISTORY OF MORE THAN NINE SURGERIES, SPINA BIFIDA, OR REPEATED CATHERIZATIONS? YES - PLEASE INDICATE : > 9 SURGERIES LATEX RISK : ARE YOU FREQUENTLY EXPOSED TO LATEX PRODUCTS IN YOUR OCCUPATION?NO DATE ASKED : 08/18/2019 BMI CARE GOAL FOLLOW-UP ABOVE NORMAL BMI FOLLOW-UPLIFESTYLE EDUCATION REGARDING DIET ALCOHOL SCREENING DID YOU HAVE A DRINK CONTAINING ALCOHOL IN THE PAST YEAR?NO POINTS0 INTERPRETATIONNEGATIVE RECREATIONAL DRUG USE DRUG USE?NO CAFFEINE CAFFEINE USE?YES SEXUAL HX HAD SEX IN THE LAST 12 MONTHS (VAGINAL, ORAL, OR ANAL)?NO HAVE YOU EVER HAD AN STD?NO HIV / HEP-C SCREENING HIV TEST OFFERED TO PATIENT:YES DATE OFFERED:10/26/2017 TEST ACCEPTED:NO HEP-C TEST OFFERED TO PATIENT:NO REASON:PATIENT DECLINED BROCHURE PROVIDED TO PATIENTNO ISLAM NO RASTAFARI BELIEFS THAT WOULD IMPACT HEALTH CARE. LANGUAGE [place]. LEARNING BARRIERS / SPECIAL NEEDS CHANGE FROM LAST VISIT?NO BARRIERS TO LEARNING?NO HEARING IMPAIRED?NO VISION IMPAIRED?YES COGNITIVELY IMPAIRED?NO :CORRECTIVE LENSES READINESS TO LEARN?YES LEARNING PREFERENCES?NO LEARNING CAPABILITIES PRESENT?YES EMOTIONAL BARRIERS?YES SPECIAL DEVICES?NO DOMESTIC VIOLENCE DO YOU FEEL SAFE IN YOUR ENVIRONMENT?YES OCCUPATION: UNEMPLOYED. DIET: REGULAR. EXERCISE: NO REGULAR EXERCISE. MARITAL STATUS: .. OTHERS AT HOME: [id number], BROTHER, NEPHEW AND BOYFRIEND. NEW PATIENT PAIN DIARY PATIENT DESCRIBES PAIN :ACHING, HAVE IT ALL THE TIME, SHARP, THROBBING FROM 0-10, WHAT LEVEL IS YOUR PAIN TODAY?10 PRECIPITATING FACTORS ANY ACTIVITY ALLEVIATING FACTORS NOTHING REALLY HELPS IMPACT ON FUNCTION YES PAIN CLINIC PFS, CLERGY, PUBLIC HEALTH REFERRALS PFS REFERRAL NEEDED?NO CLERGY REFERRAL NEEDED?NO PUBLIC HEALTH REFERRAL NEEDED?NO WAS THE PROVIDER NOTIFIED OF ANY PERTINENT INFO?NO N/A HAS THE PATIENT BEEN EDUCATED REGARDING HIS/HER PLAN OF CARE?YES HAS THE PATIENT BEEN EDUCATED REGARDING PAIN, THE RISK FOR PAIN, THE IMPORTANCE OF EFFECTIVE PAIN MANAGEMENT, AND THE PAIN ASSESSMENT PROCESS?YES ADVANCE DIRECTIVE ADVANCE DIRECTIVE DISCUSSED WITH PATIENT:YES PT HAS NO ADVANCED DIRECTIVES, DECLINES HCP INFORMATION AND ASSISTANCE WITH FORM AT THIS TIME. HOSPITALIZATION/MAJOR DIAGNOSTIC PROCEDURE ABOVE SURGERIES MRSA RIGHT GROIN 2014, C DIFF 2014 CHEST PAIN 10/20/2016 [facility] 09/2017 DIVERTICULITIS AND /HYPOTENSION 06/2018 SYNCOPE 09/2018 A-FIB AND LOOP RECORDER 10/2018 REVIEW OF SYSTEMS CONSTITUTIONAL: ANY RECENT FEVER OR ILLNESS NO . CHILLS NO . GASTROENTEROLOGY: BOWEL INCONTINENCE NO . ANY NEW CHANGE IN BOWEL CONTROL? NO . ABDOMINAL PAIN NO . CONSTIPATION NO . GENITOURINARY: ANY NEW CHANGE IN BLADDER CONTROL? NO . URINARY INCONTINENCE NO . CARDIOLOGY: CHEST PRESSURE NO . CHEST PAIN NO . RESPIRATORY: COUGH NO . SHORTNESS OF BREATH NO . VITAL SIGNS WT 247.2 LBS, HT 61 IN, BMI 46.70 INDEX, BP 131/67 MM HG, HR 82 /MIN, RR 18 /MIN, TEMP 97.0 F, OXYGEN SAT % 96%, SAFE IN ENV? (Y/N) YES, NA INITIALS [facility] 08:57[facility]. EXAMINATION GENERAL EXAMINATION: GENERALNO ACUTE DISTRESS, WELL NOURISHED AND HYDRATED. PSYCHAPPROPRIATE MOOD AND AFFECT . LUNGS:CLEAR TO AUSCULTATION BILATERALLY, NO WHEEZES, RHONCHI, RALES. HEART:NO MURMURS, REGULAR RATE AND RHYTHM. ASSESSMENTS SPONDYLOSIS WITHOUT MYELOPATHY OR RADICULOPATHY, LUMBOSACRAL REGION - M47.817 (PRIMARY) TREATMENT SPONDYLOSIS WITHOUT MYELOPATHY OR RADICULOPATHY, LUMBOSACRAL REGION NOTES: RF PROCEDURE RIGHT SIDE L4-L5 L5-S1. CLINICAL NOTES: 54-YEAR-OLD FEMALE IN FOR POST DIAGNOSTIC FACET BLOCK #2 GIVEN PRESENTING SYMPTOMS RECOMMEND RF PROCEDURE RIGHT SIDE L4-L5 L5-S1 WITH POST PROCEDURAL FOLLOW-UP. PATIENT HAS EXPRESSED UNDERSTANDING OF AND WAS IN AGREEMENT WITH TREATMENT PLAN. GIVEN TIME TO ASK QUESTIONS AND EXPRESS CONCERNS. OTHERS NOTES: RADIOFREQUENCY ABLATION MATERIAL WAS PRINTED. PROCEDURE CODES FA211 ESTABILISHED PATIENT [facility] CHARGE DISPOSITION & COMMUNICATION FOLLOW UP POST PROCEDURE (REASON: RF PROCEDURE RIGHT SIDE L4-L5 L5-S1) ELECTRONICALLY SIGNED BY TRA ACOSTA ON 08/19/2019 AT 07:59 AM EDT DISCLAIMER : THIS IS A VISIT SUMMARY EXTRACTED FROM THE [employer] CHART. IT IS NOT A COPY OF THE [facility] PROGRESS NOTE. RITA
== END ==
LOC: M PAIN 09:00
PROVIDERS: ATTEND Family Medicine
DX: M47.817 Spondylosis without myelopathy or radiculopathy, lumbosacral region (principal)

== ENCOUNTER 2019-08-19 11:07 | Inpatient (IN) | payer MEDICAID, OTHER ==
[~2019-08-19] VITALS: Ht 157.5 cm; Wt 111.6 kg
[~2019-08-19 11:07] MED LIST changes: -LATU20TA PO; -PATIENT COMMENT; -RAME8TAB2 PO
[2019-08-19] MEDS ORDERED: LATU20TA PO (11:19)
[2019-08-19] MEDS ORDERED: RAME8TAB2 PO (11:19)
[2019-08-19 12:09] LABS: MEAN CORPUSCULAR HEMOGLOBIN 30.3 pg (27.0-33.0); MEAN CORPUSCULAR HGB CONC 33.3 g/dl (32.0-36.5); MEAN CORPUSCULAR VOLUME 90.9 fl (80.0-96.0); PLATELET COUNT, AUTOMATED 171 10^3/uL (150-450); RED BLOOD COUNT 4.62 10^6/uL (4.00-5.40); WHITE BLOOD COUNT 4.4 10^3/uL (4.0-10.0)
[2019-08-19 12:44] LABS: AMPHETAMINES LEVEL URINE NEGATIVE (NEGATIVE); BARBITURATES URINE NEGATIVE (NEGATIVE); BENZODIAZEPINES URINE NEGATIVE (NEGATIVE); CANNABINOIDS URINE NEGATIVE (NEGATIVE); COCAINE METABOLITE URINE NEGATIVE (NEGATIVE); METHADONE URINE NEGATIVE (NEGATIVE); OPIATES URINE NEGATIVE (NEGATIVE); PHENCYCLIDINE URINE NEGATIVE (NEGATIVE)
[2019-08-19 12:50] LABS: ACETAMINOPHEN LEVEL < 2.0 UG/ML (10.0-30.0); ALBUMIN 3.3 GM/DL (3.2-5.2); ALT/SGPT 34 U/L (12-78); BILIRUBIN,DIRECT < 0.1 MG/DL (0.0-0.2); BILIRUBIN,TOTAL 0.4 MG/DL (0.2-1.0); BLOOD UREA NITROGEN 12 MG/DL (7-18); CALCIUM LEVEL 8.9 MG/DL (8.5-10.1); CARBON DIOXIDE LEVEL 29 MEQ/L (21-32); CHLORIDE LEVEL 108 MEQ/L (98-107); CREATININE FOR GFR 0.85 MG/DL (0.55-1.30); ETHYL ALCOHOL (ETHANOL) < 0.003 % (0.000-0.010); GLOMERULAR FILTRATION RATE > 60.0 (>51); GLUCOSE, FASTING 83 MG/DL (70-100); POTASSIUM SERUM 3.8 MEQ/L (3.5-5.1); SALICYLATE LEVEL < 1.7 MG/DL (5.0-30.0); SODIUM LEVEL 140 MEQ/L (136-145); TOTAL PROTEIN 6.5 GM/DL (6.4-8.2)
[2019-08-19] MEDS ORDERED: ACETAMINOPHEN TAB 650MG DOSE (2X325MG) PO PRN (16:00)
[2019-08-19] MEDS ORDERED: OLANZapine ORAL DISINTEGRATING TAB 5MG PO PRN (16:00)
[2019-08-19] MEDS ORDERED: IBUPROFEN 400 MG TAB PO PRN (16:00)
[2019-08-19] MEDS ORDERED: traZODone 50 MG TAB PO PRN (16:00)
[2019-08-19 17:14] VITALS: BP 133/79
[2019-08-19] MEDS ORDERED: PATIENT COMMENT (19:58)
[2019-08-19] MEDS ORDERED: MECLIZINE 12.5 MG TAB PO PRN (21:30)
[2019-08-19] MEDS ORDERED: MECLIZINE 25 MG TABLET PO PRN (21:30)
[2019-08-19] MEDS ORDERED: tiZANidine 4 MG TAB PO PRN (21:30)
[2019-08-19] MEDS: RAMELTEON 8 MG TAB (ROZEREM) PO SCH (21:50)
[2019-08-19] MEDS: PANTOPRAZOLE 40MG TAB (PROTONIX) PO SCH (21:50)
[2019-08-19] MEDS: LURASIDONE 20 MG TAB (LATUDA) PO SCH (21:50)
[2019-08-19] MEDS: METOPROLOL TART 50 MG TAB PO SCH (23:02)
[2019-08-19] MEDS: APIXABAN 5 MG TAB (ELIQUIS) PO SCH (23:02)
[2019-08-20 06:18] VITALS: BP 135/80
[2019-08-20] MEDS: APIXABAN 5 MG TAB (ELIQUIS) PO SCH ×2 (08:04→20:13)
[2019-08-20] MEDS: PANTOPRAZOLE 40MG TAB (PROTONIX) PO SCH ×2 (08:04→20:13)
[2019-08-20] MEDS: FUROSEMIDE 20 MG TAB PO SCH (08:04)
[2019-08-20] MEDS: SUCRALFATE 1 GM TAB PO SCH ×2 (08:04→20:13)
[2019-08-20] MEDS: METOPROLOL TART 50 MG TAB PO SCH ×2 (08:06→20:14)
--- NOTE | 2019-08-20 09:36 | MHHPEPDOC ---
General Date Of Admission: Aug 19, 2019 Legal Status: 9.13 Chief Complaint "I had a relationship end. History of Present Illness HISTORY OF THE PRESENT ILLNESS: Patient is a 54 -year-old , female, who presents to [facility] after an argument where she broke up with her fianc, she reports she was upset and felt suicidal. She was admitted on a voluntary out of abundance of caution. She reports that she part of this felt okay with no symptoms and that her primary problem is the situation. She reports that she is feeling improved. General: Well dressed with good hygiene Speech: Spontaneous and fluid Thought processes: Linear and logical Thought content: Future orientated Abstract reasoning, and computation: Intact Description of associations: Intact Description of abnormal or psychotic thoughts:Denies any suicidal or homicidal ideation. Denies any auditory or visual hallucinations. Does not appear to be responding to internal stimuli. Does not appear to be endorsing any bizarre or paranoid ideation. Judgment: fair Insight: fair Orientation: Alert and orientated 3 Recent and remote memory: Intact Attention span and concentration: Intact Fund of knowledge: Adequate Mood: "okay" Affect: Euthymic with a full range Psychiatric Review of Systems Depression (2 or more weeks): depressed mood Rasheeda (4 or more days of): denies Psychosis: denies PTSD: denies Anxiety: situational anxiety, stressor related anxiety Past Psychiatric History Previous Psychiatric Diagnosis: depression. Previous Psychiatric Admissions: previous last in 2018. Suicide Attempts: reports multiple in the past. Psychiatric Follow-up: current. Psychiatric medications: just start on Latuda 20 mg. Past Medical History Medical Problems breathing problems and and ambulation issues Family Medical/Psychiatric HX Psychiatric Disorders: Yes Addiction: Yes Suicide Attemps/Completions: Yes Addiction History denies Social History Abuse/Trauma: denies. Current Living Situation: lives alone. Education: high school. Employment:, employed. Social Support: family. Legal: none noted. Marital: not . Assessment 54-year-old woman with a history of primary situational problem presents after a situational disturbance otherwise she is been doing well and her suicidality is rapidly resolved, she be observed overnight and she continues to have no safety issues will be discharged tomorrow Problem List Problems: (1) Adjustment reaction, depressive, brief Status: Resolved Problem Specific Plan: Monitor Clinically Problem Text: continue home meds Initial Treatment Plan 1. Patient was admitted on a [9.39] status. 2. Complete history was obtained. 3. With patients permission, family will be contacted and database will be expanded. 4. Patients medication regimen will be reviewed and changed accordingly. 5. Patient will be provided with protected environment. 6. Patient will be treated with individual, group, and milieu therapies. 7. Patient will receive supportive psych-education. 8. Discharge planning will commence immediately. 9. Outpatient follow-up treatment will be strongly recommended. 10. The initial treatment plan will focus initially on: * Depression. * Risk for suicide. ESTIMATED LENGTH OF STAY: - DAYS. TIME SPENT COUNSELING AND COORDINATING INITIAL CARE: minutes. Vital Signs Vital Signs Date Time Temp Pulse Resp B/P (MAP) Pulse Ox O2 Delivery O2 Flow Rate FiO2 08/20/19 08:06 58 118/70 08/20/19 06:18 98.4 16 Room Air 08/19/19 17:14 96 Laboratory Data 24H Labs Laboratory Tests 2 08/19/19 11:55: Nucleated Red Blood Cells % (auto) 0.0, Anion Gap 3L, Glomerular Filtration Rate > 60.0, Calcium Level 8.9, Total Bilirubin 0.4, Direct Bilirubin < 0.1, Aspartate Amino Transf (AST/SGOT) 28, Alanine Aminotransferase (ALT/SGPT) 34, Alkaline Phosphatase 103, Total Protein 6.5, Albumin 3.3, Albumin/Globulin Ratio 1.0L, Thyroid Stimulating Hormone (TSH) 1.510, Salicylates Level < 1.7L, Urine Opiates Screen NEGATIVE, Urine Methadone Screen NEGATIVE, Acetaminophen Level < 2.0L, Urine Barbiturates Screen NEGATIVE, Urine Phencyclidine Screen NEGATIVE, Urine Amphetamines Screen NEGATIVE, Urine Benzodiazepines Screen NEGATIVE, Urine Cocaine Metabolite Screen NEGATIVE, Urine Cannabinoids Screen NEGATIVE, Ethyl Alcohol Level < 0.003 CBC/BMP Laboratory Tests 08/19/19 11:55 Medications Scheduled Apixaban (Eliquis) 5 Mg Tablet, 5 MG PO BID for ., (Reported) LAST FILLED 02/13/19, 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 , (Reported) NEW MED 08/19/19, HAS NOT STARTED Metoprolol Tartrate (Metoprolol Tartrate) 25 Mg Tablet, 25 MG PO TID for HYPERTENSION, (Reported) VERIFIED DOSE WITH 'S OFFICE Pantoprazole Sodium (Pantoprazole Sodium) 40 Mg Tablet.dr, 40 MG PO BID for ., (Reported) LAST FILLED 02/19/19 Ramelteon (Ramelteon) 8 Mg Tablet, 8 MG PO QHS for . , (Reported) NEW MED 08/19/19 - HAS NOT STARTED Sucralfate (Sucralfate) 1 Gm Tablet, 1 GM PO BID for ., (Reported) LAST FILLED 02/19/19 Scheduled PRN Meclizine HCl (Meclizine HCl) 25 Mg Tablet, 25 MG PO TID PRN for DIZZINESS, (Reported) Tizanidine HCl (Tizanidine HCl) 4 Mg Tablet, 4 MG PO TID PRN for SPASMS, (Reported) Allergies Coded Allergies: pregabalin (Verified Allergy, Severe, Angioedema, 08/19/19) clindamycin (Verified Allergy, Intermediate, vomiting swelling, 08/19/19) diclofenac (Verified Allergy, Intermediate, swelling all over body, 08/19/19) sorbitan esters (Verified Allergy, Unknown, from zipsoragitation, 08/19/19) buprenorphine (Verified Adverse Reaction, Intermediate, "SICK", 08/19/19) bupropion (Verified Adverse Reaction, Intermediate, increased tremors, 08/19/19) cyclobenzaprine (Verified Adverse Reaction, Intermediate, agitation, 08/19/19) naloxone (Verified Adverse Reaction, Intermediate, "SICK", 08/19/19) amoxicillin (Verified Adverse Reaction, Mild, VOMITING, 08/19/19) clavulanic acid (Verified Adverse Reaction, Mild, VOMITING, 08/19/19) doxycycline (Verified Adverse Reaction, Mild, vomiting, 08/19/19) sulfamethoxazole (Verified Adverse Reaction, Mild, vomiting, 08/19/19) trimethoprim (Verified Adverse Reaction, Mild, VOMITING, 08/19/19) JAYA SOLANO DO Aug 20, 2019 09:36
[2019-08-20 16:01] VITALS: BP 123/69
--- NOTE | 2019-08-20 19:04 | HPEPDOC ---
General Date of Admission Aug 19, 2019 at 15:46 Date of Service: Aug 20, 2019 Attending Physician: SHAGUFTA HOOD MD Chief Complaint The patient is a 54-year-old female admitted with a reason for visit of Unspecified Depressive Disorder. Source: Patient Exam Limitations: No limitations Timing/Duration: Getting worse Severity: Moderate, Severe Associated Symptoms: Other (depressed mood) History of Present Illness 54 yo W with a history of chart dx of bipolar and MDD with a history of prior suicide attempt and prior [facility] admission who was sent to the ED for [facility] evaluation for inpatient admission for major depressive symptoms by her outpatient mental health provider in the setting of a recent breakup and upcoming anniversary of her mother's as well as ongoing strife with her sister. She reports passive SI, would consider OD with meds if she was alone but not active seeking to harm herself. In the ED, CBC, BMP and tox screen were wnl. She is now admitted to the [facility] and am consulted for medical evaluation. She otherwise denies any physical symptoms, without any pain, fever, chills, recent travel, auditory or visual hallucinations. 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 , (Reported) NEW MED 08/19/19, HAS NOT STARTED Metoprolol Tartrate (Metoprolol Tartrate) 25 Mg Tablet, 25 MG PO TID for HYPERTENSION, (Reported) VERIFIED DOSE WITH 'S OFFICE Pantoprazole Sodium (Pantoprazole Sodium) 40 Mg Tablet.dr, 40 MG PO BID for ., (Reported) LAST FILLED 02/19/19 Ramelteon (Ramelteon) 8 Mg Tablet, 8 MG PO QHS for . , (Reported) NEW MED 08/19/19 - HAS NOT STARTED Sucralfate (Sucralfate) 1 Gm Tablet, 1 GM PO BID for ., (Reported) LAST FILLED 02/19/19 Scheduled PRN Meclizine HCl (Meclizine HCl) 25 Mg Tablet, 25 MG PO TID PRN for DIZZINESS, (Reported) Tizanidine HCl (Tizanidine HCl) 4 Mg Tablet, 4 MG PO TID PRN for SPASMS, (Reported) Allergies Coded Allergies: pregabalin (Verified Allergy, Severe, Angioedema, 08/19/19) clindamycin (Verified Allergy, Intermediate, vomiting swelling, 08/19/19) diclofenac (Verified Allergy, Intermediate, swelling all over body, 08/19/19) sorbitan esters (Verified Allergy, Unknown, from zipsoragitation, 08/19/19) buprenorphine (Verified Adverse Reaction, Intermediate, "SICK", 08/19/19) bupropion (Verified Adverse Reaction, Intermediate, increased tremors, 08/19/19) cyclobenzaprine (Verified Adverse Reaction, Intermediate, agitation, 08/19/19) naloxone (Verified Adverse Reaction, Intermediate, "SICK", 08/19/19) amoxicillin (Verified Adverse Reaction, Mild, VOMITING, 08/19/19) clavulanic acid (Verified Adverse Reaction, Mild, VOMITING, 08/19/19) doxycycline (Verified Adverse Reaction, Mild, vomiting, 08/19/19) sulfamethoxazole (Verified Adverse Reaction, Mild, vomiting, 08/19/19) trimethoprim (Verified Adverse Reaction, Mild, VOMITING, 08/19/19) Past Medical History Medical History 1 CAD s/p stents / Dyslipidemia 2 Paroxysmal Afib on NOAC 3 Pseudoseizures 4. Chronic lower back pain 5. History of Arthur's palsy 6 .Morbid obesity 7. Bipolar disorder/seasonal affective disorder/borderline personality disorder 8. Fibromyalgia 9. Migraine BEAULIEU 10. Status post KADIE 11. Status post tubal ligation 12. Status post cholecystectomy Family History Significant Family History: No pertinent family hx CHF Social History * Smoker: Denies, former Smoker Alcohol: Denies Drugs: denies Recent Travel/Sick Contacts: Denies: Recent travel, Recent sick contacts Psychosocial History: Decreased mood, Depression A-FIB/CHADSVASC A-FIB History Current/History of A-Fib/PAF?: Yes Current PO Anticoag Therapy: Yes Age/Risk Factor Scoring CHADSVASC: CHADSVASC Response (Comments) Value Age Risk Factor Age < 65 years old 0 Gender Risk Factor Female 1 Hx of CHF No 0 Hx of HTN No 0 Hx of Stroke/TIA/or VTE No 0 Hx of Diabetes No 0 Hx of Vascular Disease No 0 Total 1 Treatment Treatment ordered: NONE, Apixaban Review of Systems Constitutional: Denies: Chills, Fever, Night Sweats Eyes: Denies: Pain, Vision change ENT: Denies: Head Aches, Ear Pain, Dysphagia Skin: Denies: Rash, Lesions, Breakdown Pulmonary: Denies: Dyspnea, Cough Cardiovascular: Denies: Chest Pain, Palpitations, Orthopnea, Paroxysmal Noc. Dyspnea, Lt Headedness Gastrointestinal: Denies: Nausea, Vomiting, Abdominal Pain, Diarrhea Genitourinary: Denies: Dysuria, Frequency, Incontinence, Hematuria, Retention, Other Symptoms Hematologic: Denies: Bruising, Bleeding Excessively Endocrine: Denies: Polydipsia, Polyphagia, Polyuria, Heat Intolerance, Cold Intolerance, Other Endocrine Sx Musculoskeletal: Denies: Neck Pain, Back Pain, Joint Pain, Muscle Pain, Spasms Neurological: Denies: Weakness, Numbness, Change in speech, Confusion Psych: Reports: Mood Normal; Denies: Depression, Memory Issues Physical Examination General Exam: Positive: Alert, No Acute Distress, Other (morbidly obese) Eye Exam: Positive: PERRLA, Conjunctiva & lids normal, EOMI; Negative: Sclera icteric ENT Exam: Positive: Atraumatic, Mucous membr. moist/pink, Pharynx Normal Neck Exam: Positive: Supple; Negative: JVD, thyromegaly Chest Exam: Positive: Clear to auscultation, Normal air movement Heart Exam: Positive: Rate Normal, Regular Rhythm, Normal S1, Normal S2; Negative: Murmurs, Rubs Telemetry: Positive: No significant arrhythmia Abdomen Exam: Positive: Normal bowel sounds, Soft; Negative: Tenderness, Hepatospenomegaly Extremity Exam: Positive: Normal pulses; Negative: Clubbing, Cyanosis, Edema Skin Exam: Positive: Nl turgor and temperature; Negative: Breakdown, Lesion Neuro Exam: Positive: Normal Gait, Normal Speech, Cranial Nerves 3-12 NL, Reflexes 2+ Psych Exam: Positive: Mental status NL, Oriented x 3; Negative: Mood NL Vital Signs Vital Signs Date Time Temp Pulse Resp B/P (MAP) Pulse Ox O2 Delivery O2 Flow Rate FiO2 08/20/19 16:01 97.9 59 18 123/69 (87) 6/10/20 06:18 Room Air 08/19/19 17:14 96 Assessment/Plan Ms. Jones is a 54-year-old W CAD, chronic lower back pain, morbid obesity, and paroxysmal atrial fibrillation who will be admitted for severe depression. PLAN: Severe depression. history of bipolar -plan per psychiatry team -Chronic CAD s/p stents / Dyslipidemia -continue home meds. -Fibromyalgia / Chronic lower back pain -continue home meds. - -Morbidy Obesity -BMI 44.8 -can f/u w PCP for intake man consult, referral for Bariatric surgery / recommend cardiovascular exercise for 40 min 4-5 days a week Atrial fibrillation -continue home apixaban and metoprolol GERD: -continue home protonix BID Thank you for the consult. Medicine will sign off at this time. Plan / VTE VTE Prophylaxis Ordered?: Yes SHAGUFTA HOOD MD Aug 20, 2019 17:21
[2019-08-20] MEDS: RAMELTEON 8 MG TAB (ROZEREM) PO SCH (20:13)
[2019-08-20] MEDS: LURASIDONE 20 MG TAB (LATUDA) PO SCH (20:13)
[2019-08-21 06:27] VITALS: BP 108/58
[2019-08-21] MEDS: PANTOPRAZOLE 40MG TAB (PROTONIX) PO SCH (08:21)
[2019-08-21] MEDS: SUCRALFATE 1 GM TAB PO SCH (08:21)
[2019-08-21] MEDS: FUROSEMIDE 20 MG TAB PO SCH (08:21)
[2019-08-21 08:23] VITALS: BP 126/73
[2019-08-21] MEDS: METOPROLOL TART 50 MG TAB PO SCH (08:23)
[2019-08-21] MEDS: APIXABAN 5 MG TAB (ELIQUIS) PO SCH (08:23)
[2019-08-21] MEDS ORDERED: SUCR1TA PO (12:17)
--- NOTE | 2019-08-21 18:00 | MHDSPDOC ---
[facility] Discharge Summary Discharge Summary DATE OF ADMISSION: Aug 19, 2019 at 15:46 DATE OF DISCHARGE: Aug 21, 2019 at 15:27 DISCHARGE DIAGNOSES: 1. Adjustment reaction, depressive, brief REASON FOR ADMISSION: As per ED report: "Patient states, "I was doing pretty good until all this happened". She explained that her boyfriend of 9 years, who lives in [facility], phoned her and said, "We're done", last night. She reports that they had a good relationship for many years, speaking on the phone regularly, as well as visiting each other periodically. She reports visiting him right before the COVID-19 outbreak, noticing that things weren't quite the same (in terms of his behavior toward her), but says that she didn't think too much of it. She states that she was caught off guard last night, not expecting that phone call. In addition to this relationship loss, she reports that the two year anniversary of her mother's is next month as well. She also reports ongoing strife with her sister. Patient was quite tearful during interview, especially when speaking of her mother. While she initially denied SI/HI, she expressed belief that OD would be a possibility if alone. CONSULTANTS INVOLVED: None TREATMENT AND PROGRESS ON THE UNIT : Patient was evaluated and she said she had understood it was not worth losing her mind and her mind over her ex boyfriend. She says she has a lot to live for, especially her grandchildren and now that she feels better, she understands she could not kill herself because she is a woman of [place] and killing herself would be a sin. She says she wants to go back to College. Sometime ago she started studying Criminal Justice and she would like to retake those studies. She says she has family support, she has relatives all over the [place]. She denies suicidal ideation, homicidal ideation or psychosis. HOSPITAL COURSE: As above. Patient has had a good response to medications DISCHARGE ASSESSMENT: Patient is not suicidal, not homicidal and not psychotic. She is not in danger to self or others. She has social and family support, she is future orientated. MENTAL STATUS EXAMINATION ON DISCHARGE: Patient is a 54-year old female, who is alert, cooperative, dressed in hospital clothes. Speech is normal in r/t/v, spontaneous and fluent. Language skills are good. Thought processes including: linear and coherent. Thought content: negative for SI/HI, negative for thought delusions, she denies TAV hallucinations. Description of associations: Intact Description of abnormal or psychotic thoughts: Negative for thought delusions, negative for suicidal/homicidal thoughts. Judgment: Improved. Insight: Improved. Orientation to x 3. Recent and remote memory: Fairly good Attention span and concentration: good. Language: adequate. Fund of knowledge: average. Mood: "I feel OK" Affect: Congruent with mood MEDICATIONS ON DISCHARGE: Scheduled Apixaban (Eliquis) 5 Mg Tablet, 5 MG PO BID for ., (Reported) LAST FILLED 02/13/19, NO RECORD OF MED WITH POLICE JUSTICE Buprenorphine HCl (Belbuca) 150 Mcg Film, 150 MCG SL DAILY, (Reported) Furosemide (Furosemide) 20 Mg Tablet, 20 MG PO DAILY for ., (Reported) VERIFIED DOSE WITH 'S OFFICE Lurasidone Hydrochloride (Latuda) 20 Mg Tablet, 20 MG PO QHS for . , (Reported) NEW MED 08/19/19, HAS NOT STARTED Metoprolol Tartrate (Metoprolol Tartrate) 25 Mg Tablet, 25 MG PO TID for HYPERTENSION, (Reported) VERIFIED DOSE WITH 'S OFFICE Pantoprazole Sodium (Pantoprazole Sodium) 40 Mg Tablet.dr, 40 MG PO BID for ., (Reported) LAST FILLED 02/19/19 Ramelteon (Ramelteon) 8 Mg Tablet, 8 MG PO QHS for . , (Reported) NEW MED 08/19/19 - HAS NOT STARTED Sucralfate (Sucralfate) 1 Gm Tablet, 1 GM PO BID for ., (Reported) LAST FILLED 02/19/19 Sucralfate (Sucralfate) 1 Gm Tablet, 1 GM PO BID for Gastritis, #14 Scheduled PRN Meclizine HCl (Meclizine HCl) 25 Mg Tablet, 25 MG PO TID PRN for DIZZINESS, (Reported) Tizanidine HCl (Tizanidine HCl) 4 Mg Tablet, 4 MG PO TID PRN for SPASMS, (Reported) PLAN/FOLLOWUP ARRANGEMENTS: Follow Up Care Education Label * Medical * Medical Follow Up [facility] * Established With This Provider Yes * Therapist Makayla * Date Aug 26, 2019 * Time 09:20 * Address of Clinic or Practice [address] [place] [address] * Follow Up Care Education Label * Mental Health Appt 1 * [facility] * Established With This Provider Yes * Therapist Leeann * Date Aug 25, 2019 * Time 08:00 * Address of Clinic or Practice [address] [place] [address] * Follow Up Care Education Label * Mental Health Appt 2 * [facility] * Established With This Provider Yes * Therapist Shruthi * Date Sep 10, 2019 * Time 14:00 * Address of Clinic or Practice [address] [place] [address]. * The amount of time spent in the coordination of care for this patient was approximately 30 minutes. Vital Signs/I&Os Vital Signs Date Time Temp Pulse Resp B/P (MAP) Pulse Ox O2 Delivery O2 Flow Rate FiO2 08/21/19 08:23 55 126/73 08/21/19 06:27 98.1 18 97 Room Air Medications Scheduled Apixaban (Eliquis) 5 Mg Tablet, 5 MG PO BID for ., (Reported) LAST FILLED 02/13/19, NO RECORD OF MED WITH POLICE JUSTICE Buprenorphine HCl (Belbuca) 150 Mcg Film, 150 MCG SL DAILY, (Reported) Furosemide (Furosemide) 20 Mg Tablet, 20 MG PO DAILY for ., (Reported) VERIFIED DOSE WITH 'S OFFICE Lurasidone Hydrochloride (Latuda) 20 Mg Tablet, 20 MG PO QHS for . , (Reported) NEW MED 08/19/19, HAS NOT STARTED Metoprolol Tartrate (Metoprolol Tartrate) 25 Mg Tablet, 25 MG PO TID for HYPERTENSION, (Reported) VERIFIED DOSE WITH 'S OFFICE Pantoprazole Sodium (Pantoprazole Sodium) 40 Mg Tablet.dr, 40 MG PO BID for ., (Reported) LAST FILLED 02/19/19 Ramelteon (Ramelteon) 8 Mg Tablet, 8 MG PO QHS for . , (Reported) NEW MED 08/19/19 - HAS NOT STARTED Sucralfate (Sucralfate) 1 Gm Tablet, 1 GM PO BID for ., (Reported) LAST FILLED 02/19/19 Sucralfate (Sucralfate) 1 Gm Tablet, 1 GM PO BID for Gastritis, #14 Scheduled PRN Meclizine HCl (Meclizine HCl) 25 Mg Tablet, 25 MG PO TID PRN for DIZZINESS, (Reported) Tizanidine HCl (Tizanidine HCl) 4 Mg Tablet, 4 MG PO TID PRN for SPASMS, (Reported) Allergies Coded Allergies: pregabalin (Verified Allergy, Severe, Angioedema, 08/19/19) clindamycin (Verified Allergy, Intermediate, vomiting swelling, 08/19/19) diclofenac (Verified Allergy, Intermediate, swelling all over body, 08/19/19) sorbitan esters (Verified Allergy, Unknown, from zipsoragitation, 08/19/19) buprenorphine (Verified Adverse Reaction, Intermediate, "SICK", 08/19/19) bupropion (Verified Adverse Reaction, Intermediate, increased tremors, 08/19/19) cyclobenzaprine (Verified Adverse Reaction, Intermediate, agitation, 08/19/19) naloxone (Verified Adverse Reaction, Intermediate, "SICK", 08/19/19) amoxicillin (Verified Adverse Reaction, Mild, VOMITING, 08/19/19) clavulanic acid (Verified Adverse Reaction, Mild, VOMITING, 08/19/19) doxycycline (Verified Adverse Reaction, Mild, vomiting, 08/19/19) sulfamethoxazole (Verified Adverse Reaction, Mild, vomiting, 08/19/19) trimethoprim (Verified Adverse Reaction, Mild, VOMITING, 08/19/19) ALEX PACHECO MD Aug 21, 2019 17:59
== END 2019-08-21 15:27 | disposition home or self-care (01) | DRG 754 ==
LOC: M ED 11:07 → M ED INP 15:46 → M PSY 16:30
PROVIDERS: ADMIT Psychiatry & Neurology Addiction Medicine; ATTEND Psychiatry & Neurology Psychiatry
DX: F43.21 Adjustment disorder with depressed mood (principal); Z68.41 Body mass index [BMI] 40.0-44.9, adult; I48.0 Paroxysmal atrial fibrillation; E78.5 Hyperlipidemia, unspecified; G43.909 Migraine, unspecified, not intractable, without status migrainosus; E66.01 Morbid (severe) obesity due to excess calories; I25.10 Atherosclerotic heart disease of native coronary artery without angina pectoris; M54.5 Low back pain; F31.9 Bipolar disorder, unspecified; F60.3 Borderline personality disorder; M79.7 Fibromyalgia; K21.9 Gastro-esophageal reflux disease without esophagitis; Z91.5 Personal history of self-harm; Z95.5 Presence of coronary angioplasty implant and graft; Z90.49 Acquired absence of other specified parts of digestive tract; Z87.891 Personal history of nicotine dependence; Z79.01 Long term (current) use of anticoagulants; Z79.899 Other long term (current) drug therapy; Z88.0 Allergy status to penicillin; Z88.1 Allergy status to other antibiotic agents; Z88.8 Allergy status to other drugs, medicaments and biological substances; Z63.0 Problems in relationship with spouse or partner; Z63.8 Other specified problems related to primary support group

== ENCOUNTER 2019-09-06 10:40 | Emergency (ER) | payer MEDICAID, OTHER ==
[~2019-09-06] VITALS: Ht 157.5 cm; Wt 109.5 kg
[~2019-09-06 10:40] MED LIST changes: +LATU20TA PO; +PATIENT COMMENT; +RAME8TAB2 PO
[2019-09-06] MEDS ORDERED: ONDANSETRON 4 MG ORAL DISINTEGRATING TAB PO ONE (11:00)
[2019-09-06] MEDS ORDERED: ACETAMINOPHEN 500 MG TAB PO ONE (11:00)
--- NOTE | 2019-09-06 11:08 | REP ---
Clinical: Trauma . Comparison: 05/31/2019 . Findings: The ventricles, sulci, and cisterns are normal in position and appearance. Martinez-white differentiation is maintained. No acute intracranial hemorrhage, mass/mass effect, pathology or trauma/injury. No evidence for acute infarction. No extra-axial fluid collection. Calvarium is intact. Paranasal sinuses and mastoid air cells are clear. Impression: Normal noncontrast head CT. No evidence for acute intracranial pathology or trauma/injury. Electronically Signed by Fletcher Serna MD 09/06/2019 10:58 A
--- NOTE | 2019-09-06 11:10 | REP ---
Clinical: Trauma . Technique: Axial noncontrast images from the skull base to the thoracic inlet with coronal and sagittal re-formations Findings: Sagittal re-formations demonstrate straightening of normal lordosis which is nonspecific. Early moderate degenerative changes at C4-5 and C5-6 include marginal spurring and minimal disc space narrowing. No acute fracture / compression injury or subluxation. Spinal canal is patent. Posterior elements and spinous processes are intact. Paravertebral soft tissues are normal. Impression: No acute cervical spine trauma/injury. Early moderate focal degenerative changes. Electronically Signed by Fletcher Serna MD 09/06/2019 11:01 A
[2019-09-06] MEDS ORDERED: NS 500 ML IV ONE (11:30)
[2019-09-06 11:49] LABS: BASO % 0.5 % (0.0-1.0); EOS # 0.1 10^3/uL (0.0-0.5); EOS % 1.4 % (0.0-3.0); HEMATOCRIT 42.7 % (36.0-47.0); HEMOGLOBIN 14.2 g/dl (12.0-15.5); LYMPH # 1.6 10^3/uL (1.5-5.0); LYMPH % 36.7 % (24.0-44.0); MEAN CORPUSCULAR HEMOGLOBIN 29.7 pg (27.0-33.0); MEAN CORPUSCULAR HGB CONC 33.3 g/dl (32.0-36.5); MEAN CORPUSCULAR VOLUME 89.3 fl (80.0-96.0); MONO # 0.4 10^3/uL (0.0-0.8); MONO % 9.7 % (0.0-5.0); NEUTROPHILS # 2.3 10^3/uL (1.5-8.5); NEUTROPHILS % 51.5 % (36.0-66.0); PLATELET COUNT, AUTOMATED 181 10^3/uL (150-450); RED BLOOD COUNT 4.78 10^6/uL (4.00-5.40); WHITE BLOOD COUNT 4.4 10^3/uL (4.0-10.0)
--- NOTE | 2019-09-06 12:45 | ECGEPIP ---
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
[2019-09-06 13:25] VITALS: BP 119/72
== END 2019-09-06 13:47 | disposition home or self-care (01) ==
LOC: M ED 10:40
DX: I95.1 Orthostatic hypotension (principal); I48.91 Unspecified atrial fibrillation; F31.9 Bipolar disorder, unspecified; Z95.5 Presence of coronary angioplasty implant and graft; Z88.0 Allergy status to penicillin; Z88.1 Allergy status to other antibiotic agents; Z88.2 Allergy status to sulfonamides; Z88.8 Allergy status to other drugs, medicaments and biological substances; Z79.899 Other long term (current) drug therapy; Z79.01 Long term (current) use of anticoagulants
CPT/HCPCS: 70450; 72125; 80047; 85025; 93005; 96360; 99284; Q0162

== ENCOUNTER 2019-09-08 10:45 | Emergency (ER) | payer OTHER ==
[~2019-09-08] VITALS: Ht 157.5 cm; Wt 110.9 kg
--- NOTE | 2019-09-08 11:29 | REP ---
Clinical: Trauma. Comparison: 09/06/2019 . Findings: The ventricles, sulci, and cisterns are normal in position and appearance. Martinez-white differentiation is maintained. No acute intracranial hemorrhage, mass/mass effect, pathology or trauma/injury. No evidence for acute infarction. No extra-axial fluid collection. Calvarium is intact. Paranasal sinuses and mastoid air cells are clear. Impression: Normal noncontrast head CT. No evidence for acute intracranial pathology or trauma/injury. Electronically Signed by Fletcher Serna MD 09/08/2019 11:21 A
[2019-09-08 12:12] LABS: BASO % 0.5 % (0.0-1.0); EOS # 0.1 10^3/uL (0.0-0.5); EOS % 1.7 % (0.0-3.0); HEMATOCRIT 40.7 % (36.0-47.0); HEMOGLOBIN 13.4 g/dl (12.0-15.5); LYMPH # 1.7 10^3/uL (1.5-5.0); LYMPH % 42.1 % (24.0-44.0); MEAN CORPUSCULAR HEMOGLOBIN 29.8 pg (27.0-33.0); MEAN CORPUSCULAR HGB CONC 32.9 g/dl (32.0-36.5); MEAN CORPUSCULAR VOLUME 90.6 fl (80.0-96.0); MONO # 0.3 10^3/uL (0.0-0.8); MONO % 8.4 % (0.0-5.0); NEUTROPHILS # 1.9 10^3/uL (1.5-8.5); NEUTROPHILS % 47.1 % (36.0-66.0); PLATELET COUNT, AUTOMATED 153 10^3/uL (150-450); RED BLOOD COUNT 4.49 10^6/uL (4.00-5.40); WHITE BLOOD COUNT 4.1 10^3/uL (4.0-10.0)
[2019-09-08] MEDS ORDERED: ACETAMINOPHEN 500 MG TAB PO ONE (12:30)
[2019-09-08] MEDS ORDERED: NS 1,000 ML IV ONE (12:30)
[2019-09-08] MEDS ORDERED: Physical Therapy (15:00)
[2019-09-08] MEDS ORDERED: [UNRECOGNIZED DRUG - OTHER] (15:00)
[2019-09-08 15:44] VITALS: BP 139/72
--- NOTE | 2019-09-08 16:54 | ECGEPIP ---
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
== END 2019-09-08 15:46 | disposition home or self-care (01) ==
LOC: M ED 10:45
DX: R26.81 Unsteadiness on feet (principal); I48.91 Unspecified atrial fibrillation; I25.10 Atherosclerotic heart disease of native coronary artery without angina pectoris; F31.9 Bipolar disorder, unspecified; Z79.899 Other long term (current) drug therapy; Z79.01 Long term (current) use of anticoagulants; Z88.0 Allergy status to penicillin; Z88.8 Allergy status to other drugs, medicaments and biological substances; Z88.1 Allergy status to other antibiotic agents; Z88.2 Allergy status to sulfonamides

== ENCOUNTER → 2019-09-15 | Outpatient (CLI) | payer OTHER ==
[~2019-09-15] MED LIST changes: +ARNU1INH INH; +BACL5TAB2 PO; +LATU40TA PO; +PANT40TA29 PO; -PANT40TA3 PO; +Physical Therapy; +SIME180C PO; +[UNRECOGNIZED DRUG - OTHER]
== END ==
LOC: M LABSMTC 10:08
PROVIDERS: ATTEND Anesthesiology
DX: Z11.59 Encounter for screening for other viral diseases (principal)
CPT/HCPCS: C9803; U0003

== ENCOUNTER → 2019-09-18 | Outpatient (CLI) | payer OTHER, MEDICAID ==
[~2019-09-18] MED LIST changes: +BUPIVACAINE HCL 0.25% 30ML VIAL As Ordered ONE; +LIDOCAINE 1% SDV 30ML VIAL As Ordered ONE; +ONDANSETRON 4 MG ORAL DISINTEGRATING TAB As Ordered ONE; +dexameTHASONE 10MG/1ML VIAL PRES.FREE (J1100 PER 1MG) As Ordered ONE; +diazePAM 5 MG TAB As Ordered ONE
--- NOTE | 2019-09-19 09:28 | REP ---
C-ARM VIEWS LOWER LUMBAR SPINE: Three C-arm views of the lower lumbar spine performed during injection by Dr. Hi. Jasper are seen along the margin of the lower lumbar spine. 41 seconds of fluoroscopy time utilized. Electronically Signed by Jose Martinez MD 09/21/2019 10:56 P
--- NOTE | 2019-09-23 04:39 | ECWPNPC ---
PATIENT NAME: SMITH VIVEROS : 1965 GENDER: FEMALE VISIT DATE: 09/18/2019 DISCHARGE DATE: 09/18/19 175 VISIT LOCKED DATE TIME: PHYSICIAN: ARLEIS MILLER MD RESOURCE: ARELIS MILLER MD REASON FOR APPOINTMENT 1. RT L4/L5, L5/S1 RF HISTORY OF PRESENT ILLNESS GENERAL: -. FALL RISK SCREENING: SCREENING :TWO OR MORE FALLS WITHOUT INJURY IN THE PAST YEAR PAIN SCREENING: PATIENT HAS A COMPLAINT OF ACUTE OR CHRONIC PAIN :YES LOCATION OF PAIN:LOW BACK, LEG(S) INTENSITY OF PAIN (SCALE OF 1 TO 10):10 WHAT DOES YOUR PAIN FEEL LIKE:ACHING, CONTINOUS, SHARP, STABBING, TENDER, THROBBING, SORE, SHOOTING OCC. THROBBING DURATION:CONTINOUS, CONSTANT, STEADY, ALL DAY, AWAKENS FROM SLEEP PAIN IS INCREASED BY:ACTIVITIES, PROLONGED STANDING EVERYTHING PAIN IS DECREASED BY: CBD OIL NURSING NOTE: -. PAIN CENTER INTAKE QUESTIONS: DO YOU HAVE A HISTORY OF MRSA? :YES RIGHT LEG, UPPER LIP DO YOU TAKE A BLOOD THINNERS? :YES ELIQUIS LAST 09/14/2019 DO YOU HAVE ANY BLEEDING DISORDERS? :NO ANY NEW NUMBNESS OR WEAKNESS IN YOUR LEGS OR ARMS? :YES LEGS ARE WEAK DUE TO THE PAIN, HAS FALLEN A COUPLE OF TIMES ANY PACEMAKER,DEFIBRILLATOR, OR DORSAL COLUMN STIMULATOR? :NO LOOP RECORDER DO YOU HAVE ANY RASHES OR OPEN SORES? :NO ARE YOU ALLERGIC TO IV DYE? :NO ARE YOU DIABETIC? :NO ANY NEW PROBLEMS WITH YOUR MEDICATIONS? :NO HAVE YOU RECEIVED A VACCINE IN THE PAST 30 DAYS? :NO DO YOU PLAN TO RECEIVE A VACCINE IN THE NEXT 21 DAYS? :NO DO YOU TAKE ANY IMMUNOSUPPRESSIVE MEDICATIONS? :NO ANY HISTORY OF SEIZURES? :NO ANY HISTORY OF CARDIAC ISSUES OR EVENTS? :YES AFIB, CHEST PAIN DO YOU HAVE SLEEP APNEA? :NO ANY RECENT HEAD INJURY? :NO DO YOU HAVE ANY NEW INFECTIONS? :NO IS THERE A CHANCE YOU COULD BE ? :NO ARE YOU BREAST FEEDING? :NO WHEN DID YOU LAST EAT? : 09/17 42622 WHEN DID YOU LAST DRINK? : 09/17 1030 WHAT DID YOU LAST DRINK? 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 : NONE CURRENT MEDICATIONS TAKING NITROGLYCERIN 0.4 MG TABLET SUBLINGUAL DIRECTED SUBLINGUAL EVERY 5 MIN: MDD 3 TABLETS, NOTES: 3 MONTHS AGO TAKING SUCRALFATE 1 GM TABLET 1 TABLET ORALLY TWICE A DAY, NOTES: 09/18 799 TAKING ELIQUIS 5 MG TABLET 1 TAB(S) ORALLY TWICE DAILY, NOTES: 09/13 TAKING PROTONIX 40 MG TABLET DELAYED RELEASE 1 TABLET ORALLY BID, NOTES: 09/18 799 TAKING METOPROLOL SUCCINATE 100 MG CAPSULE ER 24 HOUR SPRINKLE 1 CAPSULE ORALLY ONCE A DAY, NOTES: 09/18 799 TAKING FUROSEMIDE 20 MG TABLET 1 TABLET ORALLY ONCE A DAY, NOTES: 09/18 799 TAKING MAY USE - - CBD OIL0(OTC) 2 GTTS ORALLY PT TAKES ON HER OWN NEEDED, NOTES: 2 DAYS AGO NOT-TAKING BELBUCA 150 MCG FILM 1 FILM TO THE GUM BUCALLY ONCE A DAY NOT-TAKING ROBAXIN 500 MG TABLET 1.5 TABLETS ORALLY EVERY 4 HRS NOT-TAKING PAROXETINE HCL 30 MG TABLET 1 TABLET IN THE MORNING ORALLY ONCE A DAY MEDICATION LIST REVIEWED AND RECONCILED WITH THE PATIENT PAST MEDICAL HISTORY FIBROMYALGIA DX 4 YEARS AGO, BEING FOLLOWED AT PAIN CLINIC MIGRAINE HEADACHE STRESS INCONTINENCE DEPRESSION HYPERLIPIDEMIA VITAMIN D DEFICIENCY AFIB GERD INTERMITTENT A FIB STRESS INCONTINENCE, FEMALE CHRONIC PAIN SYNDROME UNSPECIFIED VITAMIN D DEFICIENCY MIGRAINE, UNSPECIFIED WITHOUT MENTION OF INTRACTABLE MIGRAINE WITHOUT MENTION OF STATUS MIGRAINOSUS HYPERTENSION CONGESTIVE HEART FAILURE PER ED DOC-07/09/2019- PT STATES SHE HAS SEEN DR CASTILLO SINCE AND IS CLEARED FROM THAT CHF EPISODE UNSTEADY GAIT ALLERGIES ZIPSOR: SWELLING,HIVES - ALLERGY FLEXERIL: AGGITATION - ALLERGY LYRICA: ANAPHYLAXIS - ALLERGY DICLOFENAC POTASSIUM: AGGITATION (ZIPSOR) - ALLERGY BACTRIM: NAUSEA/VOMITING - ALLERGY CYMBALTA: NAUSEA/VOMITING - SIDE EFFECTS AMITRIPTYLINE: AGGITATION - SIDE EFFECTS GABAPENTIN: HALLUCINATIONS - SIDE EFFECTS TIZANIDINE HCL: HIVES - ALLERGY KETOROLAC TROMETHAMINE: STOMACH PAIN - ALLERGY SURGICAL HISTORY TUBAL LIGATION 1988 DISTAL 4TH FINGER REPAIR SECONDARY TO TRAUMATIC INJURY BENIGN TUMOR REMOVAL RIGHT LEG DENTAL SURGERIES CHOLECYSTECTOMY 05/2014 HYSTERECTOMY STILL HAS 1 OVARY BUT NOT SURE WHICH ONE 2012 ABSCESS R GROIN 2015 LOOP RECORDER 10/2018 LEFT SHOULDER REPAIR 02/20/19 FAMILY HISTORY FATHER: , PNEUMONIA, CHF, NEUROPATHY, BLOOD CLOT, DIAGNOSED WITH UNSPECIFIED HEART DISEASE, DIABETES, UNSPECIFIED CEREBRAL ARTERY OCCLUSION WITH CEREBRAL INFARCTION MOTHER: , CANCER, HYPERTENSION, UNSPECIFIED HEART DISEASE, DIABETES, UNSPECIFIED CEREBRAL ARTERY OCCLUSION WITH CEREBRAL INFARCTION, OTHER MALIGNANT NEOPLASM OF UNSPECIFIED SITE SIBLINGS: ALIVE, LUPUS, DIABETES SON(S): ALIVE DAUGHTER(S): ALIVE 2 BROTHER(S) , 5 SISTER(S) . 1 SON(S) , 1 DAUGHTER(S) - HEALTHY. SOCIAL HISTORY GENERAL: TOBACCO USE ARE YOU A:FORMER SMOKER HOW LONG HAS IT BEEN SINCE YOU LAST SMOKED?5-10 YEARS VAPORNO E-CIGARETTEYES LATEX QUESTIONNAIRE LATEX ALLERGY : HAVE YOU EVER DEVELOPED ANY TYPE OF REACTION AFTER HANDLING LATEX PRODUCTS SUCH RUBBER GLOVES, CONDOMS, DIAPHRAGMS, BALLOONS, SOCKS, OR UNDERWEAR?NO LATEX ALLERGY : HAVE YOU EVER DEVELOPED ANY TYPE OF REACTION DURING OR AFTER DENTAL APPOINTMENT, VAGINAL/RECTAL EXAMINATION, SURGICAL PROCEDURE, OR ANY OTHER EXPOSURE?NO LATEX RISK : HAVE YOU EVER HAD ANY DIFFICULTY BREATHING OR HIVES AFTER EATING OR HANDLING ANY FRUITS, OR VEGETABLES; SUCH KIWI, BANANAS, STONE FRUITS, OR CHESTNUTSNO LATEX RISK : DO YOU HAVE A PREVIOUS PERSONAL HISTORY OF MORE THAN NINE SURGERIES, SPINA BIFIDA, OR REPEATED CATHERIZATIONS? YES - PLEASE INDICATE : > 9 SURGERIES LATEX RISK : ARE YOU FREQUENTLY EXPOSED TO LATEX PRODUCTS IN YOUR OCCUPATION?NO DATE ASKED : 09/17/2019 BMI CARE GOAL FOLLOW-UP ABOVE NORMAL BMI FOLLOW-UPLIFESTYLE EDUCATION REGARDING DIET ALCOHOL SCREENING DID YOU HAVE A DRINK CONTAINING ALCOHOL IN THE PAST YEAR?NO POINTS0 INTERPRETATIONNEGATIVE RECREATIONAL DRUG USE DRUG USE?NO CAFFEINE CAFFEINE USE?YES SEXUAL HX HAD SEX IN THE LAST 12 MONTHS (VAGINAL, ORAL, OR ANAL)?NO HAVE YOU EVER HAD AN STD?NO HIV / HEP-C SCREENING HIV TEST OFFERED TO PATIENT:YES DATE OFFERED:10/26/2017 TEST ACCEPTED:NO HEP-C TEST OFFERED TO PATIENT:NO REASON:PATIENT DECLINED BROCHURE PROVIDED TO PATIENTNO MOSQUE NO ANABAPTISM BELIEFS THAT WOULD IMPACT HEALTH CARE. LANGUAGE [place]. LEARNING BARRIERS / SPECIAL NEEDS CHANGE FROM LAST VISIT?NO BARRIERS TO LEARNING?NO HEARING IMPAIRED?NO VISION IMPAIRED?YES :CORRECTIVE LENSES COGNITIVELY IMPAIRED?NO READINESS TO LEARN?YES LEARNING PREFERENCES?NO LEARNING CAPABILITIES PRESENT?YES EMOTIONAL BARRIERS?YES ANXIETY SPECIAL DEVICES?NO DRESSAGE INSTRUCTOR NEEDED?NO DOMESTIC VIOLENCE DO YOU FEEL SAFE IN YOUR ENVIRONMENT?YES OCCUPATION: UNEMPLOYED. DIET: REGULAR. EXERCISE: NO REGULAR EXERCISE. MARITAL STATUS: .. OTHERS AT HOME: [id number], BROTHER, NEPHEW AND BOYFRIEND. NEW PATIENT PAIN DIARY PATIENT DESCRIBES PAIN : ACHING, HAVE IT ALL THE TIME, SHARP, THROBBING, FROM 0-10, WHAT LEVEL IS YOUR PAIN TODAY? 10, PRECIPITATING FACTORS ANY ACTIVITY, ALLEVIATING FACTORS NOTHING REALLY HELPS, IMPACT ON FUNCTION YES. PAIN CLINIC PFS, CLERGY, PUBLIC HEALTH REFERRALS PFS REFERRAL NEEDED?NO CLERGY REFERRAL NEEDED?NO PUBLIC HEALTH REFERRAL NEEDED?NO HAS THE PATIENT BEEN EDUCATED REGARDING HIS/HER PLAN OF CARE?YES HAS THE PATIENT BEEN EDUCATED REGARDING PAIN, THE RISK FOR PAIN, THE IMPORTANCE OF EFFECTIVE PAIN MANAGEMENT, AND THE PAIN ASSESSMENT PROCESS?YES ADVANCE DIRECTIVE ADVANCE DIRECTIVE DISCUSSED WITH PATIENT:YES 09/17/2019 PT HAS NO ADVANCED DIRECTIVES, DECLINES HCP INFORMATION AND ASSISTANCE WITH FORM AT THIS TIME. HOSPITALIZATION/MAJOR DIAGNOSTIC PROCEDURE ABOVE SURGERIES MRSA RIGHT GROIN 2014, C DIFF 2014 CHEST PAIN 10/20/2016 [facility] 09/2017 DIVERTICULITIS AND /HYPOTENSION 06/2018 SYNCOPE 09/2018 A-FIB AND LOOP RECORDER 10/2018 VITAL SIGNS WT 244.2 LBS, HT 61 IN, BMI 46.14 INDEX, BP 139/85 MM HG, HR 74 /MIN, RR 18 /MIN, TEMP 96.5 F, OXYGEN SAT % 100%, SAFE IN ENV? (Y/N) Y, NA INITIALS IN 14:11, REVIEWED BY: AD. ASSESSMENTS SPONDYLOSIS WITHOUT MYELOPATHY OR RADICULOPATHY, LUMBAR REGION - M47.816 (PRIMARY) SPONDYLOSIS WITHOUT MYELOPATHY OR RADICULOPATHY, LUMBOSACRAL REGION - M47.817 TREATMENT SPONDYLOSIS WITHOUT MYELOPATHY OR RADICULOPATHY, LUMBAR REGION [facility] FACET BLOCK (PAIN)[id number] MEDICATION: ZOFRAN ODT TAB 4MG (ONDANSETRON)AMANDA SAWYER RN 09/18/2019 3:41:05 PM > VERFIED MEME INTERIANO 09/18/2019 3:46:05 PM > GIVEN EXP MEDICATION: VALIUM TAB 10MG ORALLY (DIAZEPAM)AMANDA SAWYER RN 09/18/2019 3:41:22 PM > VERIFIED MEME INTERIANO 09/18/2019 3:47:02 PM > GIVEN LOT [id number] 05/02 IV LACTATED RINGER'S WIDE OPENHEBRE HARRIS 09/18/2019 02:33:55 PM - 500 ML ASYA COOK 09/18/2019 3:15:34 PM > IV STARTED ON 2ND ATTEMPT IN RIGHT AC WITHOUT INCIDENT. INFUSING WIDE OPEN WITHOUT REDNESS OR SWELLING. 1ST ATTEMPT NO BLOOD RETURN. PT TOLERATED WELL. ASYA COOK 09/18/2019 5:56:28 PM > 350CC RL WHILE IN PROCEDURE ROOM FOR TOTAL INFUSION OF 850CC OF RL PROCEDURES PAIN NURSING RECORD PRE-PROCEDURE IV SITE RIGHT ANTECUBITAL, IV STARTED # 22, IV STARTED BY: Raisa COOK RN, IV ATTEMPTS 2 1ST ATTEMPT NO BLOOD RETURN, 2ND WITHOUT INCIDENT IN RIGHT AC, PRE-PROCEDURE ORAL MEDICATIONS SEE ORDERS PROCEDURE IN ROOM 1550, PHYSICIAN IN ROOM 1640, START 1645, FINISH 1705, PHYSICIAN OUT OF ROOM 1709, OUT OF ROOM 1715, STEROID DEXAMETHASONE, O2 RA, ECG NORMAL SINUS, PATIENT SHIELDED YES, SAFETY STRAP YES, PREP CHLOROPREP Raisa COOK RN, IV INFUSED LACTATED RINGERS 850CC INFUSED, DRESSING TEGADERM DR. MILLER LOC: ASYA COOK 09/18/2019 3:25:06 PM > 1. ALERT, ORIENTED RESP: ASYA COOK 09/18/2019 3:25:10 PM > 1. REGULAR, NO DYSPNEA COLOR: ASYA COOK 09/18/2019 3:25:13 PM > 1. PINK SKIN: ASYA COOK 09/18/2019 3:25:16 PM > 1. WARM, DRY POSITION: ASYA COOK 09/18/2019 3:51:45 PM > 1. PRONE VITALS: ASYA COOK 09/18/2019 3:55:35 PM > 141/81,72,16,99% ASYA COOK 09/18/2019 4:10:12 PM > 151/90,74,16,98% ASYA COOK 09/18/2019 4:27:08 PM > 150/77,77,16,96% ASYA COOK 09/18/2019 4:42:12 PM > 147/85,83,16,99% ASYA COOK 09/18/2019 4:57:23 PM > 142/83,69,16,99% JOEYASYA 09/18/2019 5:12:23 PM > 148/91,71,16,99% JOEY,ASYA 09/18/2019 5:30:19 PM > 144/92,74,18,98% DISCHARGE: POST PAIN 06/19, DRESSING SITE DRY AND INTACT, IV DISCONTINUED, GAIT STEADY, TEACHING COMPLETED, PATIENT ACKNOWLEDGES UNDERSTANDING YES, PATIENT DISCHARGED AT 1734 NOTES GROUNDING PAD SITE RIGHT POSTERIOR THIGH IS CLEAR WITHOUT REDNESS OR SWELLING PN RADIOFREQUENCY DATE OF PROCEDURE 09/18/2019 THERMO LESION RADIOFREQUENCY > 80 DEGREES : STANDARD - THERMO LESION > 80*. CURVE NEEDLE SIDE: : RIGHT LEVELS: : L3, L4, L5 NEEDLE/CATHETER/GAUGE: : 17 CANULA LENGTH: : 145 MM ACTIVE TIP: : 10 MM GROUNDING PAD PLACED ON AFFECTED SIDE (MUSCULAR AREA): : LUMBAR (POSTERIOR UPPER THIGH) 1 ST LEVEL: : L3, INITAL POSTIVE SENSORY RESPONE (50 HZ) 0.1, MOTOR RESPONSE (2 HZ-UP TO 3 VOLTS) 3.0, PRE-LOCAL IMPEDENCE READING OHMS 236, POST-LOCAL IMPEDENCE READING OHMS 180, DURING RF IMPEDENCE READING OHMS 148, LESION PARAMETERS: 80 DEGREES, 90 SECS 2 ND LEVEL: : L4, INITIAL POSITIVE SENSORY RESPONSE (50 HZ) 0.5, MOTOR RESPONSE (2 HZ- UP TO 3 VOLTS) 3.0, PRE-LOCAL IMPEDENCE READING OHMS 198, POST-LOCAL IMEPEDENCE READING OHMS 160, DURING RF IMPEDENCE READING OHMS 130, LESION PARAMETERS: 80 DEGREES, [address] LEVEL: : L5, INITIAL POSITIVE SENSORY RESPONSE (50 HZ) 0.4, MOTOR RESPONSE (2HZ- UP TO 3 VOLTS) 3.0, PRE- LOCAL IMPEDENCE READING OHMS 187, POST-LOCAL IMPEDENCE READING OHMS 140, DURING RF IMPEDENCE READING OHMS 134, LESION PARAMETERS: 80 DEGREES, 90 SECS. PRE PROCEDURE DIAGNOSES 1. LUMBAR SPONDYLOSIS. 2. LUMBOSACRAL SPONDYLOSIS POST PROCEDURE DIAGNOSES 1. LUMBAR SPONDYLOSIS. 2. LUMBOSACRAL SPONDYLOSIS PROCEDURE RIGHT L4-L5 AND RIGHT L5-S1 LUMBAR FACET RADIOFREQUENCY SURGEON DR. ARELIS MILLER RELATIONSHIP MGR NONE ANESTHESIA LOCAL PRE PROCEDURE REPORT THE PATIENT HAS HISTORY OF CHRONIC LOW BACK PAIN. I EVALUATED THE PATIENT AND REVIEWED THE CHART. I WENT OVER THE RISKS, ALTERNATIVES, AND BENEFITS ASSOCIATED WITH THIS PROCEDURE. THE PATIENT WOULD LIKE TO PROCEED AND GIVE CONSENT TO PERFORMED THE PROCEDURE. THE PATIENT DENIES UNEXPLAINABLE WEIGHT LOSS, FEVER, CHILLS, OR NEW CHANGES IN URINARY OR BOWEL CONTROL. THE PATIENT IS COVID-19 NEGATIVE DESCRIPTION OF PROCEDURE THE PATIENT WAS BROUGHT TO THE PROCEDURE ROOM AND PLACED IN THE PRONE POSITION. THE LUMBOSACRAL AREA WAS CLEANED WITH CHLORAPREP SOLUTION AND DRAPED ASEPTICALLY. THE PROCEDURE WAS DONE UNDER STERILE CONDITIONS. I CHECKED LATERALITY AND THE LEVEL WHERE THE PROCEDURE WAS GOING TO BE PERFORMED WITH THE PATIENT AND THE SUPPORTING STAFF AT THE MOMENT OF THE TIME OUT IN THE PROCEDURE ROOM. UNDER FLUOROSCOPIC GUIDANCE, TARGETS WERE SELECTED AT THE INTERSECTION OF THE RIGHT TRANSVERSE PROCESS OF L4, L5 AND ALA OF S1 WITH ITS RESPECTIVE SUPERIOR ARTICULAR PROCESS. LIDOCAINE WAS USED TO NUMB THE SKIN AND THE SUBCUTANEOUS TISSUE BELOW IT. RADIOFREQUENCY NEEDLES 17-GAUGE, 145 MM, LONG WITH 10 MM ACTIVE CURVE TIP WERE ADVANCED UNDER FLUOROSCOPIC GUIDANCE AND FOLLOWING PATIENT FEEDBACK UNTIL THE TARGET AREA WAS REACHED. POSITION OF THE NEEDLES WAS VERIFIED WITH AP AND LATERAL VIEWS. AFTER PROPER POSITION OF THE NEEDLE WAS ACHIEVED, WE WORKED WITH THE RIGHT SELECTED MEDIAN BRANCHES OF L3, L4 AND THE DORSAL RAMI OF L5. WE MEASURED THE CORRESPONDING IMPEDANCES, SENSORY STIMULATION AND MOTOR RESPONSES INDICATED IN THE RADIOFREQUENCY WORKSHEET. POSITION OF THE NEEDLES WAS VERIFIED AGAIN WITH AP AND LATERAL VIEWS. LIDOCAINE 1%, 2 ML, WAS INJECTED AT EACH LEVEL. RADIOFREQUENCY WAS DONE AT EACH LEVEL AT 80 DEGREES FOR 90 SECONDS. AFTER RADIOFREQUENCY WAS DONE, THE PATIENT RECEIVED BUPIVACAINE 0.125%, 1 ML, WITH DEXAMETHASONE 2 MG AT EACH SITE. THE MEDICATIONS WERE VERIFIED WITH THE NURSE. THERE WAS NO EVIDENCE OF BLOOD, PARESTHESIA OR CEREBROSPINAL FLUID DURING THE PROCEDURE. THE PATIENT WAS SENT TO THE RECOVERY ROOM. THE PATIENT WAS MOVING THE EXTREMITIES AND DOING WELL. THERE WAS NO COMPLICATION DURING THE PROCEDURE. ESTIMATED BLOOD LOSS WAS LESS THAN 5 ML. FLUOROSCOPY TIME WAS 41 SECONDS POST PROCEDURE NOTE THE PROCEDURE DONE WAS DISCUSSED WITH THE PATIENT. THE PATIENT WILL BE SEEN IN A FOLLOW UP IN THE NEXT FEW WEEKS. I AM LOOKING FOR LONG LASTING PAIN RELIEF FOR THE PATIENT WITH THIS INTERVENTION. INSTRUCTIONS WERE GIVEN, QUESTIONS WERE ANSWERED, AND THE PATIENT EXPRESSED UNDERSTANDING AND AGREES WITH THE PLAN. I, HEBER HARRIS, DOCUMENTED THE ABOVE INFORMATION ACTING A SCRIBE FOR DR. MILLER. I HAVE REVIEWED THE ABOVE DOCUMENT, WRITTEN BY HEBER HARRIS, DAIRY CATTLE FARMER, AND I VERIFY THAT IT IS ACCURATE .3. PROCEDURE CODES 84187 DESTROY LUMB/SAC FACET JNT, MODIFIERS: [place] [id number] DESTROY L/S FACET JNT ADDL, MODIFIERS: RT DISPOSITION & COMMUNICATION FOLLOW UP F/UP WITH PHYSIOTHERAPY AIDE (REASON: POST RT L4-L5, L5-S1 RF) ELECTRONICALLY SIGNED BY ARELIS MILLER MD, MD ON 09/22/2019 AT 04:43 PM EDT DISCLAIMER : THIS IS A VISIT SUMMARY EXTRACTED FROM THE [employer] CHART. IT IS NOT A COPY OF THE [employer] PROGRESS NOTE. MTDD
== END ==
LOC: M PAIN 13:45
PROVIDERS: ATTEND Anesthesiology
DX: M47.816 Spondylosis without myelopathy or radiculopathy, lumbar region (principal); M47.817 Spondylosis without myelopathy or radiculopathy, lumbosacral region
CPT/HCPCS: 64635; 64636; J1100; Q0162

== ENCOUNTER 2019-09-26 17:11 | Emergency (ER) | payer MEDICAID, OTHER ==
[~2019-09-26] VITALS: Ht 157.5 cm; Wt 109.1 kg
[~2019-09-26 17:11] MED LIST changes: -ARNU1INH INH; -BACL5TAB2 PO; -BUPIVACAINE HCL 0.25% 30ML VIAL As Ordered ONE; -LATU40TA PO; -LIDOCAINE 1% SDV 30ML VIAL As Ordered ONE; -ONDANSETRON 4 MG ORAL DISINTEGRATING TAB As Ordered ONE; -SIME180C PO; -dexameTHASONE 10MG/1ML VIAL PRES.FREE (J1100 PER 1MG) As Ordered ONE; -diazePAM 5 MG TAB As Ordered ONE
[2019-09-26] MEDS ORDERED: ASPIRIN 81 MG CHEW TABLET PO ONE (17:30)
[2019-09-26 18:08] LABS: BASO % 0.2 % (0.0-1.0); EOS # 0.1 10^3/uL (0.0-0.5); EOS % 1.4 % (0.0-3.0); HEMATOCRIT 42.9 % (36.0-47.0); HEMOGLOBIN 14.2 g/dl (12.0-15.5); LYMPH # 1.7 10^3/uL (1.5-5.0); LYMPH % 29.4 % (24.0-44.0); MEAN CORPUSCULAR HEMOGLOBIN 30.1 pg (27.0-33.0); MEAN CORPUSCULAR HGB CONC 33.1 g/dl (32.0-36.5); MEAN CORPUSCULAR VOLUME 91.1 fl (80.0-96.0); MONO # 0.5 10^3/uL (0.0-0.8); MONO % 8.7 % (0.0-5.0); NEUTROPHILS # 3.4 10^3/uL (1.5-8.5); NEUTROPHILS % 59.8 % (36.0-66.0); PLATELET COUNT, AUTOMATED 185 10^3/uL (150-450); RED BLOOD COUNT 4.71 10^6/uL (4.00-5.40); WHITE BLOOD COUNT 5.8 10^3/uL (4.0-10.0)
[2019-09-26 18:40] LABS: BLOOD UREA NITROGEN 12 MG/DL (7-18); CARBON DIOXIDE LEVEL 29 MEQ/L (21-32); CHLORIDE LEVEL 109 MEQ/L (98-107); GLOMERULAR FILTRATION RATE > 60.0 (>51); GLUCOSE, FASTING 82 MG/DL (70-100); POTASSIUM SERUM 4.2 MEQ/L (3.5-5.1); SODIUM LEVEL 141 MEQ/L (136-145)
[2019-09-26 18:41] LABS: CALCIUM LEVEL 8.7 MG/DL (8.5-10.1)
[2019-09-26 19:15] VITALS: BP 118/67
--- NOTE | 2019-09-27 08:54 | REP ---
CHEST PORTABLE: REASON: Chest pain. COMPARISON: 07/19/2019 FINDINGS: The technique utilized in obtaining the radiograph has magnified the cardiac silhouette and accentuated the interstitial markings. The superior mediastinal structures are midline. The cardiac silhouette is unremarkable in size, shape, and position. The diaphragmatic surfaces of the lungs are regular, and the costophrenic angles are clear. The pulmonary thomason are clear. The imaged osseous structures are intact. IMPRESSION: There is no acute cardiopulmonary disease. No change. Electronically Signed by Jt De Leon DO 09/27/2019 09:13 A
--- NOTE | 2019-09-27 09:42 | ECGEPIP ---
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
== END 2019-09-26 19:18 | disposition home or self-care (01) ==
LOC: M ED 17:11
DX: R42 Dizziness and giddiness (principal); R53.1 Weakness; R94.31 Abnormal electrocardiogram [ECG] [EKG]; I10 Essential (primary) hypertension; E11.9 Type 2 diabetes mellitus without complications; E78.5 Hyperlipidemia, unspecified; Z79.899 Other long term (current) drug therapy; Z82.49 Family history of ischemic heart disease and other diseases of the circulatory system; Z88.0 Allergy status to penicillin; Z88.8 Allergy status to other drugs, medicaments and biological substances; Z88.1 Allergy status to other antibiotic agents; Z88.2 Allergy status to sulfonamides

== ENCOUNTER → 2019-11-03 | Outpatient (CLI) | payer OTHER ==
[~2019-11-03] MED LIST changes: +ARNU1INH INH; +BACL5TAB2 PO; +LATU40TA PO; +SIME180C PO
== END ==
LOC: M PAIN 08:36
PROVIDERS: ATTEND Family Medicine
DX: M46.1 Sacroiliitis, not elsewhere classified (principal)

== ENCOUNTER → 2019-11-14 | Outpatient (CLI) | payer OTHER | LOC: M LABSMTC 09:29 | PROVIDERS: ATTEND Anesthesiology | DX: Z20.828 Contact with and (suspected) exposure to other viral communicable diseases (principal) | CPT/HCPCS: C9803; U0003 ==

== ENCOUNTER 2019-11-16 14:22 | Emergency (ER) | payer OTHER ==
[~2019-11-16] VITALS: Ht 157.5 cm; Wt 111.5 kg
[~2019-11-16 14:22] MED LIST changes: -ARNU1INH INH; -BACL5TAB2 PO; -LATU40TA PO; -SIME180C PO
[2019-11-16 17:30] LABS: BASO % 0.3 % (0.0-1.0); EOS # 0.1 10^3/uL (0.0-0.5); EOS % 1.8 % (0.0-3.0); HEMATOCRIT 41.8 % (36.0-47.0); HEMOGLOBIN 13.9 g/dl (12.0-15.5); LYMPH # 2.1 10^3/uL (1.5-5.0); LYMPH % 34.6 % (24.0-44.0); MEAN CORPUSCULAR HEMOGLOBIN 30.8 pg (27.0-33.0); MEAN CORPUSCULAR HGB CONC 33.3 g/dl (32.0-36.5); MEAN CORPUSCULAR VOLUME 92.7 fl (80.0-96.0); MONO # 0.5 10^3/uL (0.0-0.8); NEUTROPHILS # 3.3 10^3/uL (1.5-8.5); PLATELET COUNT, AUTOMATED 198 10^3/uL (150-450); RED BLOOD COUNT 4.51 10^6/uL (4.00-5.40)
[2019-11-16 17:34] LABS: INR 0.96; PROTHROMBIN TIME 12.9 SECONDS (11.8-14.0)
[2019-11-16 17:35] LABS: PARTIAL THROMBOPLASTIN TIME 23.6 SECONDS (25.0-38.4)
[2019-11-16 17:45] LABS: C REACTIVE PROTEIN QUANTITATIV 0.57 MG/DL (0.00-0.30); CALCIUM LEVEL 8.7 MG/DL (8.5-10.1); CREATININE FOR GFR 1.27 MG/DL (0.55-1.30); GLOMERULAR FILTRATION RATE 46.7 (>51); POTASSIUM SERUM 3.9 MEQ/L (3.5-5.1)
[2019-11-16 18:24] LABS: ERYTHROCYTE SEDIMENTATION RATE 12 mm/hr (0-30)
--- NOTE | 2019-11-16 18:48 | REPVR ---
PROCEDURE INFORMATION: Exam: US Duplex Left Upper Extremity Veins, Limited Exam date and time: 11/16/2019 5:25 PM Age: 54 years old Clinical indication: Pain; Arm, upper; Left; Additional info: Neck, shoulder, arm pain HX of blood clots R/O dvt TECHNIQUE: Imaging protocol: Real-time Duplex ultrasound of the Left Upper Extremity with 2-D rm scale, color Doppler flow and spectral waveform analysis with image documentation. Limited exam focused on the left upper extremity veins. COMPARISON: US DUPLEX EXT UPPER VEINS UNILATE 04/08/2019 7:46 PM FINDINGS: Left deep veins: Internal jugular, subclavian, axillary and brachial veins patent without thrombus. Normal compressibility, augmentation response and/or Doppler waveforms. Left superficial veins: Visualized cephalic and basilic veins patent without thrombus. Soft tissues: Unremarkable. IMPRESSION: No sonographic evidence of deep vein thrombosis. Electronically signed by: Jamie Renee On 11/16/2019 18:47:59 PM
[2019-11-16 19:20] VITALS: BP 142/96
--- NOTE | 2019-11-19 15:26 | ECGEPIP ---
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
== END 2019-11-16 19:26 | disposition home or self-care (01) ==
LOC: M ED 14:22
DX: M79.602 Pain in left arm (principal); I48.91 Unspecified atrial fibrillation; I10 Essential (primary) hypertension; J44.9 Chronic obstructive pulmonary disease, unspecified; Z86.718 Personal history of other venous thrombosis and embolism; Z88.1 Allergy status to other antibiotic agents; Z88.2 Allergy status to sulfonamides; Z88.6 Allergy status to analgesic agent; Z88.8 Allergy status to other drugs, medicaments and biological substances; Z79.899 Other long term (current) drug therapy; Z79.01 Long term (current) use of anticoagulants

== ENCOUNTER → 2019-11-19 | Outpatient (CLI) | payer OTHER ==
[~2019-11-19] MED LIST changes: +ARNU1INH INH; +BACL5TAB2 PO; +BUPIVACAINE HCL 0.25% 30ML VIAL As Ordered ONE; +ISOVUE-M 300 61% 15ML VIAL As Ordered ONE; +LATU40TA PO; +LIDOCAINE 1% SDV 30ML VIAL As Ordered ONE; +SIME180C PO; +TRIAMCINOLONE ACETONIDE SUSP 40 MG/ML VIAL (J3301) As Ordered ONE; +diazePAM 5 MG TAB As Ordered ONE; +oxyCODONE 5MG TAB As Ordered ONE
--- NOTE | 2019-12-10 07:38 | REP ---
FLUOROSCOPIC-GUIDED NEEDLE PLACEMENT DATE: 11/19/2019 at 03:02 p.m. CLINICAL: Bilateral sacroiliac joint injections. TECHNIQUE: Intraoperative fluoroscopic imaging using portable C-arm technique. FINDINGS: Four images demonstrate needles overlying the bilateral sacroiliac joints. Total fluoroscopic time 14 seconds. IMPRESSION: Status post bilateral sacroiliac joint injections. RITA
== END ==
LOC: M PAIN 12:31
PROVIDERS: ATTEND Anesthesiology
DX: M46.1 Sacroiliitis, not elsewhere classified (principal)
CPT/HCPCS: 27096; 77002; G0463; J3301; Q9967

== ENCOUNTER → 2019-12-05 | Outpatient (CLI) | payer OTHER ==
[~2019-12-05] MED LIST changes: -BUPIVACAINE HCL 0.25% 30ML VIAL As Ordered ONE; -ISOVUE-M 300 61% 15ML VIAL As Ordered ONE; -LIDOCAINE 1% SDV 30ML VIAL As Ordered ONE; -TRIAMCINOLONE ACETONIDE SUSP 40 MG/ML VIAL (J3301) As Ordered ONE; -diazePAM 5 MG TAB As Ordered ONE; -oxyCODONE 5MG TAB As Ordered ONE
== END ==
LOC: M PAIN 08:23
PROVIDERS: ATTEND Anesthesiology
DX: M51.16 Intervertebral disc disorders with radiculopathy, lumbar region (principal)

== ENCOUNTER 2019-12-12 17:33 | Emergency (ER) | payer OTHER ==
[~2019-12-12] VITALS: Ht 157.5 cm; Wt 110.8 kg
[~2019-12-12 17:33] MED LIST changes: -ARNU1INH INH; -BACL5TAB2 PO; -LATU40TA PO; -SIME180C PO
[2019-12-12 17:34] VITALS: BP 111/76
[2019-12-12] MEDS ORDERED: LATU40TA PO (17:42)
[2019-12-12] MEDS ORDERED: BACL5TAB2 PO (17:42)
[2019-12-12] MEDS ORDERED: ONDANSETRON 4 MG ORAL DISINTEGRATING TAB PO ONE (18:00)
[2019-12-12 18:30] LABS: BASO % 0.3 % (0.0-1.0); EOS # 0.1 10^3/uL (0.0-0.5); HEMATOCRIT 45.1 % (36.0-47.0); LYMPH # 2.2 10^3/uL (1.5-5.0); LYMPH % 31.1 % (24.0-44.0); MEAN CORPUSCULAR HEMOGLOBIN 30.6 pg (27.0-33.0); MEAN CORPUSCULAR HGB CONC 33.3 g/dl (32.0-36.5); MONO # 0.5 10^3/uL (0.0-0.8); MONO % 6.6 % (0.0-5.0); NEUTROPHILS # 4.3 10^3/uL (1.5-8.5); NEUTROPHILS % 60.6 % (36.0-66.0); PLATELET COUNT, AUTOMATED 169 10^3/uL (150-450); WHITE BLOOD COUNT 7.1 10^3/uL (4.0-10.0)
[2019-12-12 18:55] LABS: ALBUMIN 3.1 GM/DL (3.2-5.2); ALT/SGPT 31 U/L (12-78); BILIRUBIN,DIRECT < 0.1 MG/DL (0.0-0.2); BILIRUBIN,TOTAL 0.2 MG/DL (0.2-1.0); BLOOD UREA NITROGEN 23 MG/DL (7-18); CALCIUM LEVEL 9.1 MG/DL (8.5-10.1); CARBON DIOXIDE LEVEL 29 MEQ/L (21-32); CHLORIDE LEVEL 109 MEQ/L (98-107); CREATININE FOR GFR 1.26 MG/DL (0.55-1.30); GLOMERULAR FILTRATION RATE 47.1 (>51); GLUCOSE, FASTING 109 MG/DL (70-100); LIPASE 299 U/L (73-393); SODIUM LEVEL 144 MEQ/L (136-145); TOTAL PROTEIN 6.3 GM/DL (6.4-8.2)
[2019-12-12] MEDS ORDERED: SIME180C PO (19:32)
[2019-12-12] MEDS ORDERED: ONDA4TAB6 PO (19:32)
== END 2019-12-12 19:38 | disposition home or self-care (01) ==
LOC: M ED 17:33
DX: E86.0 Dehydration (principal); R19.7 Diarrhea, unspecified; R11.2 Nausea with vomiting, unspecified; M79.7 Fibromyalgia; R51.9 Headache, unspecified; F44.5 Conversion disorder with seizures or convulsions; I11.0 Hypertensive heart disease with heart failure; I50.9 Heart failure, unspecified; I48.91 Unspecified atrial fibrillation; I25.2 Old myocardial infarction; J44.9 Chronic obstructive pulmonary disease, unspecified; G47.33 Obstructive sleep apnea (adult) (pediatric); K21.9 Gastro-esophageal reflux disease without esophagitis; Z87.442 Personal history of urinary calculi; Z87.440 Personal history of urinary (tract) infections; M54.9 Dorsalgia, unspecified; Z98.890 Other specified postprocedural states; F60.9 Personality disorder, unspecified; F41.9 Anxiety disorder, unspecified; F31.9 Bipolar disorder, unspecified; Z86.14 Personal history of Methicillin resistant Staphylococcus aureus infection; Z87.19 Personal history of other diseases of the digestive system; Z79.899 Other long term (current) drug therapy; Z79.01 Long term (current) use of anticoagulants
CPT/HCPCS: 36415; 80048; 80076; 81001; 83690; 85025; 99282; Q0162

== ENCOUNTER 2019-12-14 19:09 | Emergency (ER) | payer OTHER ==
[~2019-12-14] VITALS: Ht 157.5 cm; Wt 111.6 kg
[~2019-12-14 19:09] MED LIST changes: +BACL5TAB2 PO; +LATU40TA PO; +SIME180C PO
[2019-12-14] MEDS ORDERED: PROMETHAZINE INJ 25 MG/ML VIAL (J2550) IM ONE (20:45)
[2019-12-14] MEDS ORDERED: PROM25TA12 PO (21:58)
[2019-12-14 22:41] VITALS: BP 147/87
== END 2019-12-14 22:46 | disposition home or self-care (01) ==
LOC: M ED 19:09
DX: J04.0 Acute laryngitis (principal); R11.2 Nausea with vomiting, unspecified; Z88.0 Allergy status to penicillin; Z88.8 Allergy status to other drugs, medicaments and biological substances; Z88.1 Allergy status to other antibiotic agents; Z88.2 Allergy status to sulfonamides; Z91.048 Other nonmedicinal substance allergy status; Z79.899 Other long term (current) drug therapy; Z79.01 Long term (current) use of anticoagulants

== ENCOUNTER 2019-12-17 16:30 | Emergency (ER) | payer OTHER ==
[~2019-12-17] VITALS: Ht 157.5 cm; Wt 109.1 kg
[2019-12-17 18:00] LABS: BASO % 0.3 % (0.0-1.0); EOS # 0.1 10^3/uL (0.0-0.5); EOS % 1.4 % (0.0-3.0); HEMATOCRIT 39.1 % (36.0-47.0); HEMOGLOBIN 12.9 g/dl (12.0-15.5); LYMPH # 2.2 10^3/uL (1.5-5.0); MEAN CORPUSCULAR HEMOGLOBIN 30.1 pg (27.0-33.0); MEAN CORPUSCULAR VOLUME 91.4 fl (80.0-96.0); MONO # 0.4 10^3/uL (0.0-0.8); MONO % 6.8 % (0.0-5.0); NEUTROPHILS # 3.2 10^3/uL (1.5-8.5); NEUTROPHILS % 53.8 % (36.0-66.0); PLATELET COUNT, AUTOMATED 110 10^3/uL (150-450); RED BLOOD COUNT 4.28 10^6/uL (4.00-5.40); WHITE BLOOD COUNT 5.9 10^3/uL (4.0-10.0)
[2019-12-17 18:27] LABS: INR 0.91; PROTHROMBIN TIME 12.4 SECONDS (12.5-14.3)
[2019-12-17 18:28] LABS: PARTIAL THROMBOPLASTIN TIME 26.2 SECONDS (24.2-38.5)
[2019-12-17 18:31] LABS: ALBUMIN 2.9 GM/DL (3.2-5.2); ALT/SGPT 41 U/L (12-78); BILIRUBIN,DIRECT < 0.1 MG/DL (0.0-0.2); BILIRUBIN,TOTAL 0.2 MG/DL (0.2-1.0); BLOOD UREA NITROGEN 12 MG/DL (7-18); CALCIUM LEVEL 8.5 MG/DL (8.5-10.1); CARBON DIOXIDE LEVEL 31 MEQ/L (21-32); CHLORIDE LEVEL 106 MEQ/L (98-107); CK-MB VALUE MASS < 1.0 NG/ML (<3.6); CPK CREATINE PHOSPHOKINASE 94 U/L (26-192); CREATININE FOR GFR 0.97 MG/DL (0.55-1.30); D-DIMER QUANT 303.25 ng/ml (<500); FREE T4 1.05 NG/DL (0.76-1.46); GLOMERULAR FILTRATION RATE > 60.0 (>51); GLUCOSE, FASTING 112 MG/DL (70-100); LIPASE 282 U/L (73-393); MAGNESIUM LEVEL 2.4 MG/DL (1.8-2.4); MB/CK RELATIVE INDEX 1.06 (< OR =4); POTASSIUM SERUM 3.8 MEQ/L (3.5-5.1); SODIUM LEVEL 141 MEQ/L (136-145); TROPONIN I < 0.02 NG/ML (< 0.10)
--- NOTE | 2019-12-17 18:37 | ECGEPIP ---
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
[2019-12-17] MEDS ORDERED: ISOVUE-370 76% 100ML VIAL As Ordered ONE (19:28)
[2019-12-17] MEDS ORDERED: ONDANSETRON 4MG/2ML VIAL IV ONE (19:45)
--- NOTE | 2019-12-17 20:25 | REPVR ---
PROCEDURE INFORMATION: Exam: XR Chest, 2 Views Exam date and time: 12/17/2019 7:45 PM Age: 54 years old Clinical indication: Other: Syncope TECHNIQUE: Imaging protocol: XR of the chest Views: 2 views. COMPARISON: No relevant prior studies available. FINDINGS: Lungs: Subtle hyperdensity in the left lower lobe measuring 7 mm suspicious for a small nodule. Pleural space: Unremarkable. No pleural effusion. No pneumothorax. Heart/Mediastinum: Unremarkable. No cardiomegaly. Bones/joints: Unremarkable. IMPRESSION: Hyperdensity in the left lower lobe suspicious for a small nodule measuring 7 mm. Electronically signed by: Colton Jean On 12/17/2019 20:24:55 PM
--- NOTE | 2019-12-17 20:27 | REPVR ---
PROCEDURE INFORMATION: Exam: CT Abdomen And Pelvis With Contrast Exam date and time: 12/17/2019 7:36 PM Age: 54 years old Clinical indication: Abdominal pain; Generalized; Additional info: Gen abd pain, vomiting TECHNIQUE: Imaging protocol: Computed tomography of the abdomen and pelvis with intravenous contrast. Radiation optimization: All CT scans at this facility use at least one of these dose optimization techniques: automated exposure control; mA and/or kV adjustment per patient size (includes targeted exams where dose is matched to clinical indication); or iterative reconstruction. Contrast material: ISOVUE 370; Contrast volume: 100 ml; Contrast route: INTRAVENOUS (IV); COMPARISON: CT ABD/PEL W/IV CONTRAST ONLY 08/23/2018 8:52 PM FINDINGS: Liver: Liver is enlarged and measures 21 cm. Gallbladder and bile ducts: Cholecystectomy clips. Pancreas: Normal. No ductal dilation. Spleen: Normal. No splenomegaly. Adrenals: Normal. No mass. Kidneys and ureters: Normal. No hydronephrosis. Stomach and bowel: Unremarkable. No obstruction. No mucosal thickening. Appendix: No evidence of appendicitis. Intraperitoneal space: Unremarkable. No free air. No significant fluid collection. Vasculature: Unremarkable. No abdominal aortic aneurysm. Lymph nodes: Unremarkable. No enlarged lymph nodes. Urinary bladder: Unremarkable as visualized. Reproductive: Unremarkable as visualized. Bones/joints: Unremarkable. No acute fracture. Soft tissues: Unremarkable. IMPRESSION: No acute abdominal or pelvic abnormality. Hepatomegaly. Electronically signed by: Colton Jean On 12/17/2019 20:27:12 PM
[2019-12-17 21:33] VITALS: BP 124/75
--- NOTE | 2019-12-18 13:44 | ED PDOC ---
Post-Departure Follow-Up cxr [address] abd/p faxed to [facility] for fu Brittney Connelly MD Dec 18, 2019 13:44
== END 2019-12-17 21:51 | disposition home or self-care (01) ==
LOC: EDBD 16:30 → M ED 16:30
DX: R55 Syncope and collapse (principal); R91.1 Solitary pulmonary nodule; R11.2 Nausea with vomiting, unspecified; R05 Cough; I48.91 Unspecified atrial fibrillation; I25.10 Atherosclerotic heart disease of native coronary artery without angina pectoris; F31.9 Bipolar disorder, unspecified; F44.5 Conversion disorder with seizures or convulsions; M54.9 Dorsalgia, unspecified; G43.909 Migraine, unspecified, not intractable, without status migrainosus; E66.9 Obesity, unspecified; Z68.41 Body mass index [BMI] 40.0-44.9, adult; Z87.891 Personal history of nicotine dependence; Z88.0 Allergy status to penicillin; Z88.8 Allergy status to other drugs, medicaments and biological substances; Z88.1 Allergy status to other antibiotic agents; Z88.2 Allergy status to sulfonamides; Z88.5 Allergy status to narcotic agent; Z79.899 Other long term (current) drug therapy
CPT/HCPCS: 71046; 74177; 80048; 80076; 82550; 82553; 83690; 83735; 84439; 84443; 85025; 85379; 85610; 85730; 87486; 87581; 87633; 87798; 93005; 93041; 94760; 96374; 99285; J2405; Q9967

== ENCOUNTER → 2019-12-22 | Outpatient (CLI) | payer OTHER ==
--- NOTE | 2019-12-22 18:59 | REPVR ---
PROCEDURE INFORMATION: Exam: MR Thoracic Spine Without Contrast Exam date and time: 12/22/2019 6:37 PM Age: 54 years old Clinical indication: Pain in thoracic intervertebral disc disorder; Other: Spinal cord stimulator placement TECHNIQUE: Imaging protocol: Multiplanar magnetic resonance images of the thoracic spine without intravenous contrast. COMPARISON: CT Spine,thoracic w/o contrast 03/02/2018 9:53 PM FINDINGS: Vertebral body height and AP alignment is preserved. No evidence of discitis/osteomyelitis. No abnormal cord signal or cord expansion. No epidural fluid collection. There is minimal thoracic spine degenerative disc disease without significant central or foraminal compromise throughout. IMPRESSION: 1. No acute abnormality. 2. Central canal is widely patent throughout. Electronically signed by: Isidoro Cifuentes On 12/22/2019 18:58:55 PM
--- NOTE | 2019-12-22 19:11 | REPVR ---
PROCEDURE INFORMATION: Exam: MR Lumbar Spine Without Contrast. Exam date and time: 12/22/2019 6:37 PM Age: 54 years old Clinical indication: Low back pain; Additional info: Spinal cord stimulator placement TECHNIQUE: Imaging protocol: Multiplanar magnetic resonance images of the lumbar spine without intravenous contrast. COMPARISON: No relevant prior studies available. FINDINGS: Trace retrolisthesis of L5 on S1. Vertebral body heights are preserved. Disc desiccation at L4-L5 and L5-S1. No evidence of discitis/osteomyelitis. Conus medullaris terminates L1. No epidural fluid collection. L1-L2: No central or foraminal stenosis. L2-L3: No central or foraminal stenosis. L3-L4: Mild bilateral facet joint arthropathy without central or foraminal stenosis. L4-L5: Minimal disc bulge with scea-jw-edkngkje facet joint arthropathy and small bilateral facet joint effusions. No significant central or foraminal stenosis. L5-S1: Minimal disc bulge with kxnw-[id number]-evcncxzl facet joint arthropathy. No significant central or foraminal stenosis. IMPRESSION: 1. No acute abnormality. 2. Mild degenerative findings as above without significant central canal compromise. Electronically signed by: Isidoro Cifuentes On 12/22/2019 19:11:43 PM
== END ==
LOC: M RAD 16:21
PROVIDERS: ATTEND Anesthesiology
DX: Z01.818 Encounter for other preprocedural examination (principal); M51.34 Other intervertebral disc degeneration, thoracic region

== ENCOUNTER 2019-12-23 19:26 | Emergency (ER) | payer OTHER ==
[~2019-12-23] VITALS: Ht 157.5 cm; Wt 127.7 kg
[2019-12-23 19:51] VITALS: BP 135/68
--- NOTE | 2019-12-23 21:01 | REPVR ---
PROCEDURE INFORMATION: Exam: CT Cervical Spine Without Contrast Exam date and time: 12/23/2019 8:37 PM Age: 54 years old Clinical indication: Injury or trauma; Fall; Blunt trauma; Additional info: Trauma/seizure activity TECHNIQUE: Imaging protocol: Computed tomography images of the cervical spine without contrast. Radiation optimization: All CT scans at this facility use at least one of these dose optimization techniques: automated exposure control; mA and/or kV adjustment per patient size (includes targeted exams where dose is matched to clinical indication); or iterative reconstruction. COMPARISON: No relevant prior studies available. FINDINGS: Vertebrae: No acute fracture. Normal alignment. Discs/Spinal canal/Neural foramina: No significant disc protrusion. No severe spinal canal stenosis. No significant neural foraminal narrowing. Soft tissues: Unremarkable. Lungs: Lung apices are normal. IMPRESSION: No acute findings. Electronically signed by: Giovanni Khanna On 12/23/2019 21:00:47 PM
--- NOTE | 2019-12-23 21:02 | REPVR ---
PROCEDURE INFORMATION: Exam: CT Head Without Contrast Exam date and time: 12/23/2019 8:37 PM Age: 54 years old Clinical indication: Injury or trauma; Fall; Blunt trauma (contusions or hematomas); Additional info: Trauma/seizure activity TECHNIQUE: Imaging protocol: Computed tomography of the head without contrast. Radiation optimization: All CT scans at this facility use at least one of these dose optimization techniques: automated exposure control; mA and/or kV adjustment per patient size (includes targeted exams where dose is matched to clinical indication); or iterative reconstruction. COMPARISON: CT Head without contrast 09/08/2019 11:09 AM FINDINGS: Brain: Normal. No hemorrhage. Unremarkable white matter. No mass effect. Cerebral ventricles: No ventriculomegaly. Bones/joints: Unremarkable. No acute fracture. Paranasal sinuses: Visualized sinuses are unremarkable. No fluid levels. Mastoid air cells: Visualized mastoid air cells are well aerated. Soft tissues: Unremarkable. IMPRESSION: No acute intracranial abnormality. Electronically signed by: Giovanni Khanna On 12/23/2019 21:02:33 PM
[2019-12-23] MEDS ORDERED: diphenhydrAMINE 25MG CAP PO ONE (21:15)
[2019-12-23] MEDS ORDERED: KETOROLAC TROMETHAMINE 10 MG TAB PO ONE (21:15)
[2019-12-23] MEDS ORDERED: METOCLOPRAMIDE 10 MG TAB PO ONE (21:15)
[2019-12-23] MEDS ORDERED: BACLOFEN 10 MG TAB PO ONE (23:15)
--- NOTE | 2019-12-24 07:19 | ECGEPIP ---
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
== END 2019-12-24 01:06 | disposition home or self-care (01) ==
LOC: M ED 19:26
DX: R55 Syncope and collapse (principal); I48.91 Unspecified atrial fibrillation; I25.10 Atherosclerotic heart disease of native coronary artery without angina pectoris; M54.9 Dorsalgia, unspecified; F99 Mental disorder, not otherwise specified; Z88.1 Allergy status to other antibiotic agents; Z88.0 Allergy status to penicillin; Z88.2 Allergy status to sulfonamides; Z88.8 Allergy status to other drugs, medicaments and biological substances; Z79.899 Other long term (current) drug therapy; Z79.01 Long term (current) use of anticoagulants

== ENCOUNTER → 2020-01-16 | Outpatient (CLI) | payer OTHER, MEDICAID ==
[~2020-01-16] MED LIST changes: +ARNU1INH INH
--- NOTE | 2020-01-22 05:57 | ECWPNPC ---
PATIENT NAME: SMITH VIVEROS : 1965 GENDER: FEMALE VISIT DATE: 01/16/2020 DISCHARGE DATE: 01/16/20 1722 VISIT LOCKED DATE TIME: PHYSICIAN: ARELIS MILLER MD RESOURCE: ARELIS MILLER MD REASON FOR APPOINTMENT 1. MRI REVIEW HISTORY OF PRESENT ILLNESS GENERAL: 54-YEAR-OLD FEMALE PATIENT WITH A HISTORY OF CHRONIC LOW BACK AND BILATERAL LEG PAIN. SHE HAS BEEN SUFFERING FROM THIS PAIN FOR MANY YEARS. SHE HAS TRIED INJECTION THERAPY AND MEDICATION MANAGEMENT. THE PATIENT DESCRIBES THE PAIN SHARP, SEVERE AND ACHING WITH A PAIN SCORE RANGING FROM 7-10/10 DEPENDING ON PHYSICAL ACTIVITY. SHE STATES THAT THE PAIN AFFECTS HER ACTIVITIES OF DAILY LIVING SUCH WALKING AND CLEANING. SHE IS INTERESTED IN THE SPINAL COLUMN STIMULATOR TRIAL. THE PATIENT HAS A HISTORY OF MRSA. PATIENT DENIES UNEXPLAINABLE WEIGHT LOSS, FEVER, CHILLS, NEW CHANGES ON HER URINARY OR BOWEL CONTROL. FALL RISK SCREENING: SCREENING :TWO OR MORE FALLS WITHOUT INJURY IN THE PAST YEAR PAIN SCREENING: PATIENT HAS A COMPLAINT OF ACUTE OR CHRONIC PAIN :YES LOCATION OF PAIN:MID BACK, LOW BACK, LEFT HIP, RIGHT HIP, LEG(S) INTENSITY OF PAIN (SCALE OF 1 TO 10):10 WHAT DOES YOUR PAIN FEEL LIKE:ACHING, CONTINOUS, STABBING, THROBBING DURATION:CONTINOUS, CONSTANT, STEADY, ALL DAY PAIN IS INCREASED BY:ACTIVITIES, PROLONGED STANDING, OTHERS WALKING, SITTING, LAYING DOWN PAIN IS DECREASED BY:OTHERS HEAT NURSING NOTE: -. PAIN CENTER INTAKE QUESTIONS: DO YOU HAVE A HISTORY OF MRSA? :YES HX OF MRSA IN GROIN AND UPPER LIP OF MOUTH DO YOU TAKE A BLOOD THINNERS? :YES ELIQUIS DO YOU HAVE ANY BLEEDING DISORDERS? :NO ANY NEW NUMBNESS OR WEAKNESS IN YOUR LEGS OR ARMS? :NO ANY PACEMAKER,DEFIBRILLATOR, OR DORSAL COLUMN STIMULATOR? :YES LOOP RECORDER DO YOU HAVE ANY RASHES OR OPEN SORES? :NO ARE YOU ALLERGIC TO IV DYE? :NO ARE YOU DIABETIC? :NO ANY NEW PROBLEMS WITH YOUR MEDICATIONS? :NO HAVE YOU RECEIVED A VACCINE IN THE PAST 30 DAYS? :NO DO YOU PLAN TO RECEIVE A VACCINE IN THE NEXT 21 DAYS? :NO DO YOU NEED ANY PRESCRIPTION? :NO DO YOU TAKE ANY IMMUNOSUPPRESSIVE MEDICATIONS? :NO IS THERE A CHANCE YOU COULD BE ? :NO ARE YOU BREAST FEEDING? :NO CURRENT MEDICATIONS TAKING NITROGLYCERIN 0.4 MG TABLET SUBLINGUAL DIRECTED SUBLINGUAL EVERY 5 MIN: MDD 3 TABLETS TAKING SUCRALFATE 1 GM TABLET 1 TABLET ORALLY TWICE A DAY TAKING ELIQUIS 5 MG TABLET 1 TAB(S) ORALLY TWICE DAILY TAKING PROTONIX 40 MG TABLET DELAYED RELEASE 1 TABLET ORALLY BID TAKING METOPROLOL SUCCINATE 100 MG CAPSULE ER 24 HOUR SPRINKLE 1 CAPSULE ORALLY ONCE A DAY TAKING BACLOFEN 5 MG TABLET 1 TABLET WITH FOOD OR MILK ORALLY THREE TIMES A DAY TAKING TIZANIDINE HCL 2 MG TABLET 1 TABLET NEEDED ORALLY THREE TIMES A DAY NOT-TAKING FUROSEMIDE 20 MG TABLET 1 TABLET ORALLY ONCE A DAY NOT-TAKING MAY USE - - CBD OIL0(OTC) 2 GTTS ORALLY PT TAKES ON HER OWN NEEDED NOT-TAKING BELBUCA 150 MCG FILM 1 FILM TO THE GUM BUCALLY ONCE A DAY NOT-TAKING ROBAXIN 500 MG TABLET 1.5 TABLETS ORALLY EVERY 4 HRS NOT-TAKING PAROXETINE HCL 30 MG TABLET 1 TABLET IN THE MORNING ORALLY ONCE A DAY MEDICATION LIST REVIEWED AND RECONCILED WITH THE PATIENT PAST MEDICAL HISTORY FIBROMYALGIA DX 4 YEARS AGO, BEING FOLLOWED AT PAIN CLINIC MIGRAINE HEADACHE STRESS INCONTINENCE DEPRESSION HYPERLIPIDEMIA VITAMIN D DEFICIENCY AFIB GERD INTERMITTENT A FIB STRESS INCONTINENCE, FEMALE CHRONIC PAIN SYNDROME UNSPECIFIED VITAMIN D DEFICIENCY MIGRAINE, UNSPECIFIED WITHOUT MENTION OF INTRACTABLE MIGRAINE WITHOUT MENTION OF STATUS MIGRAINOSUS HYPERTENSION CONGESTIVE HEART FAILURE PER ED DOC-07/09/2019- PT STATES SHE HAS SEEN DR CASTILLO SINCE AND IS CLEARED FROM THAT CHF EPISODE UNSTEADY GAIT ALLERGIES ZIPSOR: SWELLING,HIVES - ALLERGY FLEXERIL: AGGITATION - ALLERGY LYRICA: ANAPHYLAXIS - ALLERGY DICLOFENAC POTASSIUM: AGGITATION (ZIPSOR) - ALLERGY BACTRIM: NAUSEA/VOMITING - ALLERGY CYMBALTA: NAUSEA/VOMITING - SIDE EFFECTS AMITRIPTYLINE: AGGITATION - SIDE EFFECTS GABAPENTIN: HALLUCINATIONS - SIDE EFFECTS TIZANIDINE HCL: HIVES - ALLERGY KETOROLAC TROMETHAMINE: STOMACH PAIN - ALLERGY SURGICAL HISTORY TUBAL LIGATION 1988 DISTAL 4TH FINGER REPAIR SECONDARY TO TRAUMATIC INJURY BENIGN TUMOR REMOVAL RIGHT LEG DENTAL SURGERIES CHOLECYSTECTOMY 05/2014 HYSTERECTOMY STILL HAS 1 OVARY BUT NOT SURE WHICH ONE 2012 ABSCESS R GROIN 2015 LOOP RECORDER 10/2018 LEFT SHOULDER REPAIR 02/20/19 FAMILY HISTORY FATHER: , PNEUMONIA, CHF, NEUROPATHY, BLOOD CLOT, DIAGNOSED WITH UNSPECIFIED HEART DISEASE, DIABETES, UNSPECIFIED CEREBRAL ARTERY OCCLUSION WITH CEREBRAL INFARCTION MOTHER: , CANCER, HYPERTENSION, UNSPECIFIED HEART DISEASE, DIABETES, UNSPECIFIED CEREBRAL ARTERY OCCLUSION WITH CEREBRAL INFARCTION, OTHER MALIGNANT NEOPLASM OF UNSPECIFIED SITE SIBLINGS: ALIVE, LUPUS, DIABETES SON(S): ALIVE DAUGHTER(S): ALIVE 2 BROTHER(S) , 5 SISTER(S) . 1 SON(S) , 1 DAUGHTER(S) - HEALTHY. SOCIAL HISTORY GENERAL: TOBACCO USE ARE YOU A:FORMER SMOKER HOW LONG HAS IT BEEN SINCE YOU LAST SMOKED?5-10 YEARS VAPORNO E-CIGARETTEYES LATEX QUESTIONNAIRE LATEX ALLERGY : HAVE YOU EVER DEVELOPED ANY TYPE OF REACTION AFTER HANDLING LATEX PRODUCTS SUCH RUBBER GLOVES, CONDOMS, DIAPHRAGMS, BALLOONS, SOCKS, OR UNDERWEAR?NO LATEX ALLERGY : HAVE YOU EVER DEVELOPED ANY TYPE OF REACTION DURING OR AFTER DENTAL APPOINTMENT, VAGINAL/RECTAL EXAMINATION, SURGICAL PROCEDURE, OR ANY OTHER EXPOSURE?NO LATEX RISK : HAVE YOU EVER HAD ANY DIFFICULTY BREATHING OR HIVES AFTER EATING OR HANDLING ANY FRUITS, OR VEGETABLES; SUCH KIWI, BANANAS, STONE FRUITS, OR CHESTNUTSNO LATEX RISK : DO YOU HAVE A PREVIOUS PERSONAL HISTORY OF MORE THAN NINE SURGERIES, SPINA BIFIDA, OR REPEATED CATHERIZATIONS? YES - PLEASE INDICATE : > 9 SURGERIES LATEX RISK : ARE YOU FREQUENTLY EXPOSED TO LATEX PRODUCTS IN YOUR OCCUPATION?NO DATE ASKED : 01/16/2020 BMI CARE GOAL FOLLOW-UP ABOVE NORMAL BMI FOLLOW-UPLIFESTYLE EDUCATION REGARDING DIET ALCOHOL SCREENING DID YOU HAVE A DRINK CONTAINING ALCOHOL IN THE PAST YEAR?NO POINTS0 INTERPRETATIONNEGATIVE RECREATIONAL DRUG USE DRUG USE?NO CAFFEINE CAFFEINE USE?YES SEXUAL HX HAD SEX IN THE LAST 12 MONTHS (VAGINAL, ORAL, OR ANAL)?NO HAVE YOU EVER HAD AN STD?NO HIV / HEP-C SCREENING HIV TEST OFFERED TO PATIENT:YES DATE OFFERED:10/26/2017 TEST ACCEPTED:NO HEP-C TEST OFFERED TO PATIENT:NO REASON:PATIENT DECLINED BROCHURE PROVIDED TO PATIENTNO EPISCOPAL NO CONGREGATION BELIEFS THAT WOULD IMPACT HEALTH CARE. 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 DIET: REGULAR. EXERCISE: NO REGULAR EXERCISE. MARITAL STATUS: .. OTHERS AT HOME: [id number], BROTHER, NEPHEW AND BOYFRIEND. PAIN CLINIC PFS, CLERGY, PUBLIC HEALTH REFERRALS PFS REFERRAL NEEDED?NO CLERGY REFERRAL NEEDED?NO PUBLIC HEALTH REFERRAL NEEDED?NO HAS THE PATIENT BEEN EDUCATED REGARDING HIS/HER PLAN OF CARE?YES HAS THE PATIENT BEEN EDUCATED REGARDING PAIN, THE RISK FOR PAIN, THE IMPORTANCE OF EFFECTIVE PAIN MANAGEMENT, AND THE PAIN ASSESSMENT PROCESS?YES ADVANCE DIRECTIVE ADVANCE DIRECTIVE DISCUSSED WITH PATIENT:YES PT HAS NO ADVANCED DIRECTIVES, DECLINES HCP INFORMATION AND ASSISTANCE WITH FORM AT THIS TIME. HOSPITALIZATION/MAJOR DIAGNOSTIC PROCEDURE ABOVE SURGERIES MRSA RIGHT GROIN 2014, C DIFF 2015 CHEST PAIN 10/20/2016 [facility] 09/2017 DIVERTICULITIS AND /HYPOTENSION 06/2018 SYNCOPE 09/2018 A-FIB AND LOOP RECORDER 10/2018 REVIEW OF SYSTEMS CONSTITUTIONAL: ANY RECENT FEVER NO . CHILLS NO . WEIGHT CHANGE OF UNKNOWN REASONS NO . GASTROENTEROLOGY: NEW UNEXPLAINABLE CHANGES IN BOWEL CONTROL NO . CONSTIPATION NO . GENITOURINARY: ANY NEW CHANGE IN BLADDER CONTROL? NO . NEUROLOGY: NEW ONSET DIZZINESS OR NEUROLOGICAL CHANGES NOT MENTIONED NO . NEW NUMBNESS OR PAIN PATTERNS NOT MENTIONED AND PERTINENT TO TODAY'S VISIT NO . CARDIOLOGY: NEW CHEST PRESSURE NO . NEW CHEST PAIN NO . RESPIRATORY: UNEXPLAINABLE COUGH NO . NEW SHORTNESS OF BREATH NO . VITAL SIGNS WT 259.0 LBS, HT 61 IN, BMI 48.93 INDEX, BP 121/72 MM HG, HR 85 /MIN, RR 18 /MIN, TEMP 97.0 F, OXYGEN SAT % 96%, SAFE IN ENV? (Y/N) Y, NA INITIALS AW 1418, REVIEWED BY: JSJ. DALLIN RN. EXAMINATION GENERAL EXAMINATION: THE PATIENT IS ALERT, ORIENTED TIMES THREE AND COOPERATIVE. HEART SHOWS REGULAR RHYTHM, NO MURMURS AND NO GALLOPS. LUNGS ARE CLEAR TO AUSCULTATION. THE PATIENT'S WALK IS ANTALGIC. THERE IS TENDERNESS IN THE RIGHT AND LEFT SACROILIAC JOINTS. KIRSTEN TEST IS POSITIVE FOR SACROILITIS ON BOTH SIDES. THERE IS TENDERNESS IN THE LOWER BACK IN THE PARASPINAL MUSCLE GROUP GOING TOWARD THE RIGHT AND LEFT BUTTOCK. STRAIGHT LEG RAISE IN THE RIGHT LEG IS POSITIVE FOR RADICULTIOPHY AT 45 DEGREES. THE RIGHT LEG IS WEAKER THAN THE LEFT ON FLEXION. THORACIC MRI DATED 12/22/2019 SHOWS MILD DEGENERATIVE DISC DISEASE. LUMBAR MRI DATED 12/22/2019 SHOWS SHOWS SOME BULGING DISC AT L4-5L, L5-S1. 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 CLINICAL NOTES: THE PATIENT IS INTERESTED IN THE SPINAL COLUMN STIMULATOR TRIAL. I WILL REVIEW THE MRI WITH THE RADIOLOGIST. THE PATIENT IS GOING TO SEE HER PRIMARY CARE NEXT WEEK. WE ARE GOING TO REQUEST A CLEARANCE TO STOP THE ELIQUIS FOR 12 DAYS. THE PATIENT IS GOING TO HAVE THE PSYCHOLOGICAL EVALUATION January. THE PATIENT IS GOING TO BE SEEN BY THE SURGEON NEXT WEEK TO SEE IF THERE IS A SURGICAL SOLUTION. THE PATIENT IS AWARE THAT IF WE MOVE FORWARD WITH THE TRIAL, SHE WILL HAVE TO STOP HER ELIQUIS. THE PATIENT KNOWS THAT SHE WILL NEED THE HIBICLENS FOR THE MRSA AND BACLOFEN FOR THE NOSE. THE PATIENT WILL FOLLOW UP WITH ME IN 1 MONTH. THE PATIENT IS USING BACLOFEN AND AFTER DISCUSSING IT, WE HAVE DECIDED TO SWITCH HER TO SKELAXIN. I WILL REQUEST AUTHORIZATION FOR BILATERAL SACROILIAC JOINT BLOCK. THE PATIENT UNDERSTANDS AND AGREES WITH THE PLAN. I, HEBER HARRIS, DOCUMENTED THE ABOVE INFORMATION ACTING A SCRIBE FOR DR. MILLER. I HAVE REVIEWED THE ABOVE DOCUMENT, WRITTEN BY HEBER HARRIS, PROTECTIVE SERVICES SOCIAL WORKER, AND I VERIFY THAT IT IS ACCURATE. PROCEDURE CODES FA211 ESTABILISHED PATIENT [facility] CHARGE [id number] OFFICE/OUTPATIENT VISIT EST DISPOSITION & COMMUNICATION FOLLOW UP FOLLOW UP WITH DR. Zamudio IN 1 MONTH (REASON: DISCUSS DCS) ELECTRONICALLY SIGNED BY ARELIS MILLER MD, MD ON 01/21/2020 AT 01:29 PM EST DISCLAIMER : THIS IS A VISIT SUMMARY EXTRACTED FROM THE E[employer] CHART. IT IS NOT A COPY OF THE [facility] PROGRESS NOTE. MTDD
== END ==
LOC: M PAIN 14:45
PROVIDERS: ATTEND Anesthesiology
DX: M51.16 Intervertebral disc disorders with radiculopathy, lumbar region (principal); M51.17 Intervertebral disc disorders with radiculopathy, lumbosacral region; M46.1 Sacroiliitis, not elsewhere classified; I48.91 Unspecified atrial fibrillation; M79.7 Fibromyalgia; G43.909 Migraine, unspecified, not intractable, without status migrainosus; F32.9 Major depressive disorder, single episode, unspecified; E55.9 Vitamin D deficiency, unspecified; K21.9 Gastro-esophageal reflux disease without esophagitis; I11.0 Hypertensive heart disease with heart failure; I50.9 Heart failure, unspecified; Z87.891 Personal history of nicotine dependence; Z79.01 Long term (current) use of anticoagulants; Z79.899 Other long term (current) drug therapy; Z88.8 Allergy status to other drugs, medicaments and biological substances

== ENCOUNTER 2020-01-18 18:35 | Emergency (ER) | payer OTHER, MEDICAID ==
[~2020-01-18] VITALS: Ht 157.5 cm; Wt 204.5 kg
[~2020-01-18 18:35] MED LIST changes: -ARNU1INH INH
[2020-01-18] MEDS ORDERED: FURO20TA2 PO (18:47)
[2020-01-18] MEDS ORDERED: ARNU1INH INH (18:47)
[2020-01-18 18:48] VITALS: BP 106/61
[2020-01-18] MEDS ORDERED: BACLOFEN 10 MG TAB PO ONE (19:15)
--- NOTE | 2020-01-18 20:03 | REPVR ---
PROCEDURE INFORMATION: Exam: US Duplex Lower Extremity Veins, Bilateral Exam date and time: 01/18/2020 7:21 PM Age: 54 years old Clinical indication: Pain; Leg, upper and leg, lower; Bilateral; Additional info: Bilateral lower leg pain/swelling, on eliquis TECHNIQUE: Imaging protocol: Real-time duplex ultrasound of the extremities with 2-D rm scale, color Doppler flow and spectral waveform analysis with image documentation. Complete exam focused on the bilateral lower extremity veins. COMPARISON: US Duplex, Ext LOWER veins, bilat 07/19/2019 8:25 PM FINDINGS: Right deep veins: Unremarkable. The common femoral, femoral, proximal profunda femoral and popliteal veins are patent without thrombus. Normal Doppler waveforms. Normal compressibility and/or augmentation response. Left deep veins: Unremarkable. The common femoral, femoral, proximal profunda femoral and popliteal veins are patent without thrombus. Normal Doppler waveforms. Normal compressibility and/or augmentation response. Soft tissues: Soft tissue swelling IMPRESSION: No evidence of deep vein thrombosis. Electronically signed by: Boston Sarabia On 01/18/2020 20:02:50 PM
== END 2020-01-18 20:55 | disposition home or self-care (01) ==
LOC: M ED 18:35
DX: R25.2 Cramp and spasm (principal); M79.661 Pain in right lower leg; M79.662 Pain in left lower leg; M79.89 Other specified soft tissue disorders; I11.0 Hypertensive heart disease with heart failure; I50.9 Heart failure, unspecified; E78.5 Hyperlipidemia, unspecified; M79.7 Fibromyalgia; F44.5 Conversion disorder with seizures or convulsions; Z88.0 Allergy status to penicillin; Z88.8 Allergy status to other drugs, medicaments and biological substances; Z88.2 Allergy status to sulfonamides; Z88.5 Allergy status to narcotic agent; Z79.899 Other long term (current) drug therapy; Z79.01 Long term (current) use of anticoagulants

== ENCOUNTER 2020-01-25 20:31 | Emergency (ER) | payer OTHER, MEDICAID ==
[~2020-01-25] VITALS: Ht 157.5 cm; Wt 113.6 kg
[~2020-01-25 20:31] MED LIST changes: +ARNU1INH INH
[2020-01-25] MEDS ORDERED: KETOROLAC 60MG 2ML VIAL IM ONE (21:00)
[2020-01-25] MEDS ORDERED: BACLOFEN 10 MG TAB PO ONE (21:00)
[2020-01-25 21:24] LABS: BASO % 0.4 % (0.0-1.0); EOS # 0.1 10^3/uL (0.0-0.5); EOS % 1.1 % (0.0-3.0); HEMATOCRIT 40.5 % (36.0-47.0); HEMOGLOBIN 12.9 g/dl (12.0-15.5); LYMPH % 37.2 % (24.0-44.0); MEAN CORPUSCULAR HEMOGLOBIN 29.9 pg (27.0-33.0); MEAN CORPUSCULAR HGB CONC 31.9 g/dl (32.0-36.5); MONO # 0.4 10^3/uL (0.0-0.8); MONO % 7.5 % (0.0-5.0); NEUTROPHILS # 2.9 10^3/uL (1.5-8.5); NEUTROPHILS % 53.3 % (36.0-66.0); PLATELET COUNT, AUTOMATED 146 10^3/uL (150-450); RED BLOOD COUNT 4.31 10^6/uL (4.00-5.40); WHITE BLOOD COUNT 5.5 10^3/uL (4.0-10.0)
--- NOTE | 2020-01-25 21:50 | REPVR ---
PROCEDURE INFORMATION: Exam: US Retroperitoneal Limited, Kidneys Exam date and time: 01/25/2020 9:37 PM Age: 54 years old Clinical indication: Abdominal pain; Flank; Left; Additional info: Left flank pain; HX of stones TECHNIQUE: Imaging protocol: Real-time ultrasound of the retroperitoneum with image documentation. Examination was focused on the kidneys. COMPARISON: CT ABD/PEL W/IV CONTRAST ONLY 12/17/2019 7:30 PM FINDINGS: Right kidney measures 11.4 cm in length. Left kidney measures 10.1 cm in length. Renal parenchymal echotexture and cortical thickness are normal. No solid renal mass, cyst or hydronephrosis. No shadowing, echogenic foci suggestive of stones. Bladder is unremarkable. Ureter jets were not documented IMPRESSION: Unremarkable ultrasound of the kidneys and bladder. Electronically signed by: Migue Patterson On 01/25/2020 21:50:21 PM
[2020-01-25 21:52] LABS: ALBUMIN 3.3 GM/DL (3.2-5.2); ALT/SGPT 46 U/L (12-78); BILIRUBIN,DIRECT < 0.1 MG/DL (0.0-0.2); BILIRUBIN,TOTAL 0.3 MG/DL (0.2-1.0); TOTAL PROTEIN 6.5 GM/DL (6.4-8.2)
--- NOTE | 2020-01-25 21:56 | REPVR ---
PROCEDURE INFORMATION: Exam: XR Cervical Spine, 2 or 3 Views Exam date and time: 01/25/2020 9:50 PM Age: 54 years old Clinical indication: Neck pain; Additional info: Left sided neck pain; No trauma TECHNIQUE: Imaging protocol: XR of the cervical spine, 2 or 3 views. COMPARISON: CT Spine,cervical w/o contrast 12/23/2019 8:34 PM FINDINGS: Bones/joints: No segmental vertebral malalignment. Odontoid and cervical spine lateral masses align normally. Vertebral body height and morphology are maintained. No acute fracture. No destructive or blastic bone lesion. Mild C5-6 degenerative disc height loss with endplate spurring is present. Uncovertebral arthropathy C3-C4, C4-C5 and C5-C6 is also present Soft tissues: No focal prevertebral soft tissue abnormality. IMPRESSION: 1. No acute or destructive process. 2. Mild C5-C6 degenerative disc height loss and endplate osteophytes anteriorly. 3. Uncovertebral arthropathy C3-C4 through C5-C6 Electronically signed by: Migue Patterson On 01/25/2020 21:56:19 PM
[2020-01-25 22:30] VITALS: BP 108/53
[2020-01-25] MEDS ORDERED: NITROFURANTOIN (MACROBID) 100 MG CAP PO ONE (22:30)
[2020-01-25] MEDS ORDERED: MACR100C43 PO (22:52)
== END 2020-01-25 23:04 | disposition home or self-care (01) ==
LOC: M ED 20:31
DX: N39.0 Urinary tract infection, site not specified (principal); M54.12 Radiculopathy, cervical region; I11.0 Hypertensive heart disease with heart failure; I50.9 Heart failure, unspecified; I25.2 Old myocardial infarction; E78.5 Hyperlipidemia, unspecified; M79.7 Fibromyalgia; J44.9 Chronic obstructive pulmonary disease, unspecified; F44.5 Conversion disorder with seizures or convulsions; Z87.442 Personal history of urinary calculi; Z88.0 Allergy status to penicillin; Z88.8 Allergy status to other drugs, medicaments and biological substances; Z88.1 Allergy status to other antibiotic agents; Z88.2 Allergy status to sulfonamides; Z79.899 Other long term (current) drug therapy
CPT/HCPCS: 72040; 76775; 80076; 81001; 85025; 96374; 99284; J1885

== ENCOUNTER 2020-01-27 14:35 | Emergency (ER) | payer MEDICAID, OTHER ==
[~2020-01-27] VITALS: Ht 157.5 cm; Wt 118.4 kg
[~2020-01-27 14:35] MED LIST changes: +MACR100C43 PO
[2020-01-27] MEDS ORDERED: KETOROLAC 60MG 2ML VIAL IM ONE (16:30)
[2020-01-27] MEDS ORDERED: BACLOFEN 10 MG TAB PO ONE (16:30)
--- NOTE | 2020-01-27 16:34 | REP ---
INDICATION: R/O DVT. COMPARISON: 11/16/2019 TECHNIQUE: Multiple ultrasonographic images of the deep venous structures of the left upper extremity were obtained to rule out deep venous thrombosis. FINDINGS: There is no abnormal echogenic material seen in any of the visualized deep venous structures of the left upper extremity. Coaptation where applicable is appropriate throughout. IMPRESSION: Negative exam. <Electronically signed by Jt De Leon > 01/27/20 2011
[2020-01-27 17:24] VITALS: BP 132/78
== END 2020-01-27 17:34 | disposition home or self-care (01) ==
LOC: M ED 14:35
DX: M25.512 Pain in left shoulder (principal); M79.632 Pain in left forearm; M79.89 Other specified soft tissue disorders; Z98.890 Other specified postprocedural states; I48.91 Unspecified atrial fibrillation; I11.0 Hypertensive heart disease with heart failure; I50.9 Heart failure, unspecified; I25.2 Old myocardial infarction; J44.9 Chronic obstructive pulmonary disease, unspecified; M79.7 Fibromyalgia; G47.33 Obstructive sleep apnea (adult) (pediatric); F44.5 Conversion disorder with seizures or convulsions; Z86.718 Personal history of other venous thrombosis and embolism; Z88.0 Allergy status to penicillin; Z88.8 Allergy status to other drugs, medicaments and biological substances; Z88.1 Allergy status to other antibiotic agents; Z88.2 Allergy status to sulfonamides; Z79.899 Other long term (current) drug therapy
CPT/HCPCS: 93971; 96372; 99283; J1885

== ENCOUNTER → 2020-01-29 | Outpatient (CLI) | payer OTHER, MEDICAID | LOC: M LABSMTC 10:22 | PROVIDERS: ATTEND Anesthesiology | DX: Z20.828 Contact with and (suspected) exposure to other viral communicable diseases (principal) ==

== ENCOUNTER 2020-01-30 19:37 | Emergency (ER) | payer OTHER, MEDICAID ==
[~2020-01-30] VITALS: Ht 157.5 cm; Wt 109.1 kg
[2020-01-30] MEDS ORDERED: KETOROLAC 60MG 2ML VIAL IM ONE (21:45)
[2020-01-30] MEDS ORDERED: BACLOFEN 10 MG TAB PO ONE (21:45)
--- NOTE | 2020-01-30 22:34 | REPVR ---
PROCEDURE INFORMATION: Exam: XR Chest, 1 View Exam date and time: 01/30/2020 9:57 PM Age: 54 years old Clinical indication: Shortness of breath; Additional info: SOB TECHNIQUE: Imaging protocol: XR of the chest Views: 1 view. COMPARISON: CR Chest, 2 view PA, Lat 12/17/2019 7:30 PM FINDINGS: Lungs: Unremarkable. No consolidation. Pleural space: Unremarkable. No pleural effusion. No pneumothorax. Heart/Mediastinum: Unremarkable. No cardiomegaly. Bones/joints: Unremarkable. IMPRESSION: No acute findings. Electronically signed by: Colton Jean On 01/30/2020 22:34:09 PM
[2020-01-30 22:49] LABS: BASO % 0.4 % (0.0-1.0); EOS # 0.1 10^3/uL (0.0-0.5); EOS % 1.3 % (0.0-3.0); HEMATOCRIT 39.5 % (36.0-47.0); HEMOGLOBIN 12.6 g/dl (12.0-15.5); LYMPH # 2.1 10^3/uL (1.5-5.0); MEAN CORPUSCULAR HEMOGLOBIN 29.7 pg (27.0-33.0); MEAN CORPUSCULAR HGB CONC 31.9 g/dl (32.0-36.5); MEAN CORPUSCULAR VOLUME 93.2 fl (80.0-96.0); MONO # 0.4 10^3/uL (0.0-0.8); MONO % 7.1 % (0.0-5.0); NEUTROPHILS # 2.8 10^3/uL (1.5-8.5); NEUTROPHILS % 51.8 % (36.0-66.0); PLATELET COUNT, AUTOMATED 127 10^3/uL (150-450); RED BLOOD COUNT 4.24 10^6/uL (4.00-5.40); WHITE BLOOD COUNT 5.3 10^3/uL (4.0-10.0)
[2020-01-30 23:21] LABS: CALCIUM LEVEL 8.6 MG/DL (8.5-10.1); CREATININE FOR GFR 1.22 MG/DL (0.55-1.30); GLOMERULAR FILTRATION RATE 48.9 (>51); POTASSIUM SERUM 3.8 MEQ/L (3.5-5.1)
[2020-01-30 23:30] VITALS: BP 130/59
== END 2020-01-30 23:50 | disposition home or self-care (01) ==
LOC: M ED 19:37
DX: R60.9 Edema, unspecified (principal); M79.7 Fibromyalgia; I25.2 Old myocardial infarction; I11.0 Hypertensive heart disease with heart failure; I48.91 Unspecified atrial fibrillation; E03.9 Hypothyroidism, unspecified; J44.9 Chronic obstructive pulmonary disease, unspecified; G47.30 Sleep apnea, unspecified; F41.9 Anxiety disorder, unspecified; F33.9 Major depressive disorder, recurrent, unspecified; Z79.01 Long term (current) use of anticoagulants; Z79.51 Long term (current) use of inhaled steroids; Z79.899 Other long term (current) drug therapy; Z88.0 Allergy status to penicillin; Z88.1 Allergy status to other antibiotic agents; Z88.8 Allergy status to other drugs, medicaments and biological substances; Z88.2 Allergy status to sulfonamides; Z86.69 Personal history of other diseases of the nervous system and sense organs; Z85.41 Personal history of malignant neoplasm of cervix uteri
CPT/HCPCS: 71045; 80048; 82550; 83880; 85025; 96372; 99284; J1885

== ENCOUNTER → 2020-02-03 | Outpatient (CLI) | payer OTHER, MEDICAID ==
[~2020-02-03] MED LIST changes: +BUPIVACAINE HCL 0.25% 30ML VIAL As Ordered ONE; +ISOVUE-M 300 61% 15ML VIAL As Ordered ONE; +LIDOCAINE 1% SDV 30ML VIAL As Ordered ONE; +TRIAMCINOLONE ACETONIDE SUSP 40 MG/ML VIAL (J3301) As Ordered ONE; +diazePAM 5 MG TAB As Ordered ONE; +oxyCODONE 5MG TAB As Ordered ONE
--- NOTE | 2020-02-03 10:47 | REP ---
INDICATION: BILAT SIJ. COMPARISON: None. TECHNIQUE: Intraoperative fluoroscopic imaging using portable C-arm technique FINDINGS: Images demonstrate catheter and contrast overlying the bilateral sacroiliac joints. Total fluoroscopic time 36.6 seconds. IMPRESSION: Status post bilateral sacroiliac joint block. <Electronically signed by Fletcher Serna > 02/03/20 1046
--- NOTE | 2020-02-12 02:12 | ECWPNPC ---
PATIENT NAME: SMITH VIVEROS : 1965 GENDER: FEMALE VISIT DATE: 02/03/2020 DISCHARGE DATE: 02/03/20 1033 VISIT LOCKED DATE TIME: PHYSICIAN: ARELIS MILLER MD RESOURCE: ARELIS MILLER MD REASON FOR APPOINTMENT 1. BILATERAL SIJ HISTORY OF PRESENT ILLNESS GENERAL: -. FALL RISK SCREENING: SCREENING :NO FALLS REPORTED IN THE LAST YEAR PAIN SCREENING: PATIENT HAS A COMPLAINT OF ACUTE OR CHRONIC PAIN :YES LOCATION OF PAIN:LOW BACK ACROSS BOTH HIPS INTENSITY OF PAIN (SCALE OF 1 TO 10):10 WHAT DOES YOUR PAIN FEEL LIKE:ACHING, BURNING, CONTINOUS, SHARP, STABBING, TENDER, THROBBING, SORE, SHOOTING DURATION:CONTINOUS, CONSTANT, AWAKENS FROM SLEEP HAS TROUBLE GETTING INTO BED AND FALLING TO SLEEP PAIN IS INCREASED BY: LAYING, SITTING, WALKING PAIN IS DECREASED BY: MUSCLE RELAXERS NURSING NOTE: -. PAIN CENTER INTAKE QUESTIONS: DO YOU HAVE A HISTORY OF MRSA? :YES 6 YEARS AGO IN HER GROIN. SHE STATES SHE HAS HAD (-) CULTURES DO YOU TAKE A BLOOD THINNERS? :YES ELIQUIS DO YOU HAVE ANY BLEEDING DISORDERS? :NO ANY NEW NUMBNESS OR WEAKNESS IN YOUR LEGS OR ARMS? :NO ANY PACEMAKER,DEFIBRILLATOR, OR DORSAL COLUMN STIMULATOR? :NO HAS A LOOP RECORDER DO YOU HAVE ANY RASHES OR OPEN SORES? :YES RASH STARTED TO LEFT FOREARM LAST NIGHT, DR MILLER AWARE. ARE YOU ALLERGIC TO IV DYE? :NO ARE YOU DIABETIC? :NO ANY NEW PROBLEMS WITH YOUR MEDICATIONS? :NO HAVE YOU RECEIVED A VACCINE IN THE PAST 30 DAYS? :NO DO YOU PLAN TO RECEIVE A VACCINE IN THE NEXT 21 DAYS? :NO DO YOU TAKE ANY IMMUNOSUPPRESSIVE MEDICATIONS? :NO ANY HISTORY OF SEIZURES? :NO ANY HISTORY OF CARDIAC ISSUES OR EVENTS? :YES AFIB, CHF DO YOU HAVE SLEEP APNEA? :NO ANY RECENT HEAD INJURY? :NO DO YOU HAVE ANY NEW INFECTIONS? :NO IS THERE A CHANCE YOU COULD BE ? :NO ARE YOU BREAST FEEDING? :NO WHEN DID YOU LAST EAT? : -02/02/20 1900 WHEN DID YOU LAST DRINK? : -02/03/20 0600 WHAT DID YOU LAST DRINK? : -WATER NAME OF PERSON DRIVING YOU HOME? : CAB DO YOU HAVE ANY OTHER QUESTIONS OR CONCERNS? : NONE CURRENT MEDICATIONS TAKING NITROGLYCERIN 0.4 MG TABLET SUBLINGUAL DIRECTED SUBLINGUAL EVERY 5 MIN: MDD 3 TABLETS, NOTES: NONE LATELY TAKING SUCRALFATE 1 GM TABLET 1 TABLET ORALLY TWICE A DAY, NOTES: 02/03/20599 TAKING ELIQUIS 5 MG TABLET 1 TAB(S) ORALLY TWICE DAILY, NOTES: 01/29/20 TAKING PROTONIX 40 MG TABLET DELAYED RELEASE 1 TABLET ORALLY BID, NOTES: 02/03/20599 TAKING METOPROLOL SUCCINATE 100 MG CAPSULE ER 24 HOUR SPRINKLE 1 CAPSULE ORALLY ONCE A DAY, NOTES: 02/03/20599 TAKING BACLOFEN 5 MG TABLET 1 TABLET WITH FOOD OR MILK ORALLY THREE TIMES A DAY, NOTES: 02/03/20599 TAKING METAXALONE 800 MG TABLET 1 TABLET ORALLY NEEDED FOR SPASMS AND PAIN THREE TIMES A DAY MDD3, NOTES: 02/02/20 TAKING SKELAXIN 800 MG TABLET 1 TABLET ORALLY THREE TIMES DAILY NEEDED, NOTES: 02/02/20 NOT-TAKING TIZANIDINE HCL 2 MG TABLET 1 TABLET NEEDED ORALLY THREE TIMES A DAY NOT-TAKING FUROSEMIDE 20 MG TABLET 1 TABLET ORALLY ONCE A DAY NOT-TAKING MAY USE - - CBD OIL0(OTC) 2 GTTS ORALLY PT TAKES ON HER OWN NEEDED NOT-TAKING BELBUCA 150 MCG FILM 1 FILM TO THE GUM BUCALLY ONCE A DAY NOT-TAKING ROBAXIN 500 MG TABLET 1.5 TABLETS ORALLY EVERY 4 HRS NOT-TAKING PAROXETINE HCL 30 MG TABLET 1 TABLET IN THE MORNING ORALLY ONCE A DAY MEDICATION LIST REVIEWED AND RECONCILED WITH THE PATIENT PAST MEDICAL HISTORY FIBROMYALGIA DX 4 YEARS AGO, BEING FOLLOWED AT PAIN CLINIC MIGRAINE HEADACHE STRESS INCONTINENCE DEPRESSION HYPERLIPIDEMIA VITAMIN D DEFICIENCY AFIB GERD INTERMITTENT A FIB STRESS INCONTINENCE, FEMALE CHRONIC PAIN SYNDROME UNSPECIFIED VITAMIN D DEFICIENCY MIGRAINE, UNSPECIFIED WITHOUT MENTION OF INTRACTABLE MIGRAINE WITHOUT MENTION OF STATUS MIGRAINOSUS HYPERTENSION CONGESTIVE HEART FAILURE PER ED DOC-07/09/2019- PT STATES SHE HAS SEEN DR CASTILLO SINCE AND IS CLEARED FROM THAT CHF EPISODE UNSTEADY GAIT LOW BACK PAIN ALLERGIES ZIPSOR: SWELLING,HIVES - ALLERGY FLEXERIL: AGGITATION - ALLERGY LYRICA: ANAPHYLAXIS - ALLERGY DICLOFENAC POTASSIUM: AGGITATION (ZIPSOR) - ALLERGY BACTRIM: NAUSEA/VOMITING - ALLERGY CYMBALTA: NAUSEA/VOMITING - SIDE EFFECTS AMITRIPTYLINE: AGGITATION - SIDE EFFECTS GABAPENTIN: HALLUCINATIONS - SIDE EFFECTS TIZANIDINE HCL: HIVES - ALLERGY KETOROLAC TROMETHAMINE: STOMACH PAIN - ALLERGY SURGICAL HISTORY TUBAL LIGATION 1987 DISTAL 4TH FINGER REPAIR SECONDARY TO TRAUMATIC INJURY BENIGN TUMOR REMOVAL RIGHT LEG DENTAL SURGERIES CHOLECYSTECTOMY 05/2014 HYSTERECTOMY STILL HAS 1 OVARY BUT NOT SURE WHICH ONE 2012 ABSCESS R GROIN 2015 LOOP RECORDER 10/2018 LEFT SHOULDER REPAIR 02/20/19 FAMILY HISTORY FATHER: , PNEUMONIA, CHF, NEUROPATHY, BLOOD CLOT, DIAGNOSED WITH UNSPECIFIED HEART DISEASE, DIABETES, UNSPECIFIED CEREBRAL ARTERY OCCLUSION WITH CEREBRAL INFARCTION MOTHER: , CANCER, HYPERTENSION, UNSPECIFIED HEART DISEASE, DIABETES, UNSPECIFIED CEREBRAL ARTERY OCCLUSION WITH CEREBRAL INFARCTION, OTHER MALIGNANT NEOPLASM OF UNSPECIFIED SITE SIBLINGS: ALIVE, LUPUS, DIABETES SON(S): ALIVE DAUGHTER(S): ALIVE 2 BROTHER(S) , 5 SISTER(S) . 1 SON(S) , 1 DAUGHTER(S) - HEALTHY. SOCIAL HISTORY GENERAL: TOBACCO USE ARE YOU A:FORMER SMOKER HOW LONG HAS IT BEEN SINCE YOU LAST SMOKED?5-10 YEARS VAPORNO E-CIGARETTEYES LATEX QUESTIONNAIRE LATEX ALLERGY : HAVE YOU EVER DEVELOPED ANY TYPE OF REACTION AFTER HANDLING LATEX PRODUCTS SUCH RUBBER GLOVES, CONDOMS, DIAPHRAGMS, BALLOONS, SOCKS, OR UNDERWEAR?NO LATEX ALLERGY : HAVE YOU EVER DEVELOPED ANY TYPE OF REACTION DURING OR AFTER DENTAL APPOINTMENT, VAGINAL/RECTAL EXAMINATION, SURGICAL PROCEDURE, OR ANY OTHER EXPOSURE?NO LATEX RISK : HAVE YOU EVER HAD ANY DIFFICULTY BREATHING OR HIVES AFTER EATING OR HANDLING ANY FRUITS, OR VEGETABLES; SUCH KIWI, BANANAS, STONE FRUITS, OR CHESTNUTSNO LATEX RISK : DO YOU HAVE A PREVIOUS PERSONAL HISTORY OF MORE THAN NINE SURGERIES, SPINA BIFIDA, OR REPEATED CATHERIZATIONS? YES - PLEASE INDICATE : > 9 SURGERIES LATEX RISK : ARE YOU FREQUENTLY EXPOSED TO LATEX PRODUCTS IN YOUR OCCUPATION?NO DATE ASKED : 02/02/2020 BMI CARE GOAL FOLLOW-UP ABOVE NORMAL BMI FOLLOW-UPLIFESTYLE EDUCATION REGARDING DIET ALCOHOL SCREENING DID YOU HAVE A DRINK CONTAINING ALCOHOL IN THE PAST YEAR?NO POINTS0 INTERPRETATIONNEGATIVE RECREATIONAL DRUG USE DRUG USE?NO CAFFEINE CAFFEINE USE?YES SEXUAL HX HAD SEX IN THE LAST 12 MONTHS (VAGINAL, ORAL, OR ANAL)?NO HAVE YOU EVER HAD AN STD?NO HIV / HEP-C SCREENING HIV TEST OFFERED TO PATIENT:YES DATE OFFERED:10/26/2017 TEST ACCEPTED:NO HEP-C TEST OFFERED TO PATIENT:NO REASON:PATIENT DECLINED BROCHURE PROVIDED TO PATIENTNO VOODOO NO YAZDANISM BELIEFS THAT WOULD IMPACT HEALTH CARE. LANGUAGE WELSH. LEARNING BARRIERS / SPECIAL NEEDS CHANGE FROM LAST VISIT?YES BARRIERS TO LEARNING?NO HEARING IMPAIRED?NO VISION IMPAIRED?YES :CORRECTIVE LENSES COGNITIVELY IMPAIRED?NO READINESS TO LEARN?YES LEARNING PREFERENCES?NO LEARNING CAPABILITIES PRESENT?YES EMOTIONAL BARRIERS?YES ANXIETY SPECIAL DEVICES?YES :WALKER NEEDED SHOE LACER NEEDED?NO DOMESTIC VIOLENCE DO YOU FEEL SAFE IN YOUR ENVIRONMENT?YES OCCUPATION: UNEMPLOYED. DIET: REGULAR. EXERCISE: NO REGULAR EXERCISE. MARITAL STATUS: .. OTHERS AT HOME: [id number]-PC-IDP, BROTHER, NEPHEW AND BOYFRIEND. PAIN CLINIC PFS, CLERGY, PUBLIC HEALTH REFERRALS PFS REFERRAL NEEDED?NO CLERGY REFERRAL NEEDED?NO PUBLIC HEALTH REFERRAL NEEDED?NO HAS THE PATIENT BEEN EDUCATED REGARDING HIS/HER PLAN OF CARE?YES HAS THE PATIENT BEEN EDUCATED REGARDING PAIN, THE RISK FOR PAIN, THE IMPORTANCE OF EFFECTIVE PAIN MANAGEMENT, AND THE PAIN ASSESSMENT PROCESS?YES ADVANCE DIRECTIVE ADVANCE DIRECTIVE DISCUSSED WITH PATIENT:YES 02/02/2020 PT HAS NO ADVANCED DIRECTIVES, DECLINES HCP INFORMATION AND ASSISTANCE WITH FORM AT THIS TIME. HOSPITALIZATION/MAJOR DIAGNOSTIC PROCEDURE ABOVE SURGERIES MRSA RIGHT GROIN 2014, C DIFF 2014 CHEST PAIN 10/20/2016 [facility]- [facility] 09/2017 DIVERTICULITIS AND /HYPOTENSION 06/2018 SYNCOPE 09/2018 A-FIB AND LOOP RECORDER 10/2018 VITAL SIGNS WT 263.4 LBS, HT 61 IN, BMI 49.76 INDEX, BP 128/81 MM HG, HR 74 /MIN, RR 18 /MIN, TEMP 96.0 F, OXYGEN SAT % 98%, SAFE IN ENV? (Y/N) Y, NA INITIALS AW 0848, REVIEWED BY: EM. EXAMINATION GENERAL EXAMINATION: THE PATIENT IS ALERT, ORIENTED TIMES THREE AND COOPERATIVE. HEART SHOWS REGULAR RHYTHM, NO MURMURS AND NO GALLOPS. LUNGS ARE CLEAR TO AUSCULTATION. ASSESSMENTS SACROILIITIS, NOT ELSEWHERE CLASSIFIED - M46.1 (PRIMARY) SACROILIAC JOINT DYSFUNCTION - M53.3 TREATMENT SACROILIITIS, NOT ELSEWHERE CLASSIFIED [facility] FLUORO GUIDANCE (PAIN)[id number] MEDICATION: VALIUM TAB 10MG ORALLY (DIAZEPAM)ASYA COOK 02/03/2020 9:12:57 AM > LOT # [id number] EXP 09/29 ASYA COOK 02/03/2020 9:13:18 AM > VERIFIED ABIOLA JOHN 02/03/2020 9:16:46 AM > ADMINISTERED MEDICATION: OXYCODONE HCL TAB 10MG ORALLYDEASYA PHAM 02/03/2020 9:14:06 AM > LOT # [id number] EXP. 04/2021 VERIFIED ABIOLA JOHN 02/03/2020 9:17:10 AM > ADMINISTERED IV LACTATED RINGER'S AT KVODEASYA PHAM 02/03/2020 9:15:53 AM > STARTED ON 1ST ATTEMPT WITHOUT INCIDENT. INFUSING WITHOUT REDNESS OR SWELLING. ASYA COOK 02/03/2020 10:25:28 AM > TOTAL OF 300ML INFUSED OTHERS CLINICAL NOTES: 02/02/2020 1656 PRE-PROCEDURE CALL COMPLETED. PROCEDURES PAIN NURSING RECORD PRE-PROCEDURE IV SITE RIGHT HAND, IV STARTED # 22, IV STARTED BY: Raisa COOK RN, IV ATTEMPTS 1, PRE-PROCEDURE ORAL MEDICATIONS SEE MEDICATION ORDERS PROCEDURE IN ROOM 0939 AMBULATORY, PHYSICIAN IN ROOM 0958, START 1002, FINISH 1007, PHYSICIAN OUT OF ROOM 1008, OUT OF ROOM 1015 VIA STRETCHER, STEROID KENALOG, O2 RA, ECG NORMAL SINUS, PATIENT SHIELDED YES, SAFETY STRAP YES, PREP CHLOROPREP BY Raisa COOK RN, IV INFUSED LACTATED RINGERS 300 ML, DRESSING TEGADERM BY DR. MILLER LOC: ASYA COOK 02/03/2020 9:23:55 AM > 1. ALERT, ORIENTED RESP: ASYA COOK 02/03/2020 9:24:21 AM > 1. REGULAR, NO DYSPNEA COLOR: ASYA COOK 02/03/2020 9:24:28 AM > 1. PINK SKIN: ASYA COOK 02/03/2020 9:24:35 AM > 1. WARM, DRY POSITION: ASYA COOK 02/03/2020 9:42:10 AM > 1. PRONE VITALS: ASYA COOK 02/03/2020 9:41:15 AM > 163/82,61,18,100% ASYA COOK 02/03/2020 9:57:42 AM > 161/71,69,18,96% JOEYASYA 02/03/2020 10:11:09 AM > 155/85,64,18, 99% ASYA COOK 02/03/2020 10:33:55 AM > 186/84,76,18,97% DISCHARGE: POST PAIN 5 BILATERAL LOW BACK AND LEGS, DRESSING SITE DRY AND INTACT, IV DISCONTINUED, SITE CLEAR, CATHETER INTACT, GAIT STEADY, TEACHING COMPLETED, PATIENT ACKNOWLEDGES UNDERSTANDING YES, PATIENT DISCHARGED AT 1033 PN SI PRE PROCEDURE DIAGNOSIS SACROILIITIS, SACROILIAC JOINT DYSFUNCTION POST PROCEDURE DIAGNOSIS SACROILIITIS, SACROILIAC JOINT DYSFUNCTION PROCEDURE BILATERAL SACROILIAC JOINT BLOCK SURGEON DR. ARELIS MILLER MARKING MACHINE TENDER NONE ANESTHESIA LOCAL PRE PROCEDURE NOTE THE PATIENT WITH HISTORY OF CHRONIC LOW BACK PAIN. I EVALUATED THE PATIENT AND REVIEWED THE CHART. I WENT OVER THE RISKS, ALTERNATIVES, AND BENEFITS ASSOCIATED WITH THIS PROCEDURE. I DISCUSSED THAT THE USE OF STEROIDS MAY CONTRIBUTE TO IMMUNOSUPPRESSION OF THE PATIENT'S BODY AGAINST INFECTIONS SUCH COVID-19. THE PATIENT IS AWARE OF THE POTENTIAL COMPLICATIONS ASSOCIATED WITH THIS VIRUS, INCLUDING, BUT NOT LIMITED TO, . THE PATIENT WOULD LIKE TO PROCEED AND GAVE CONSENT TO PERFORM THE PROCEDURE. THE PATIENT DENIES UNEXPLAINABLE WEIGHT LOSS, FEVER, CHILLS, OR NEW CHANGES IN URINARY OR BOWEL CONTROL. THE PATIENT IS COVID-19 NEGATIVE DESCRIPTION OF PROCEDURE THE PATIENT WAS BROUGHT TO THE PROCEDURE ROOM AND PLACED IN THE PRONE POSITION. THE LUMBOSACRAL AREA WAS CLEANED WITH CHLORAPREP SOLUTION AND DRAPED ASEPTICALLY. THE PROCEDURE WAS DONE UNDER STERILE CONDITIONS. A TIMEOUT WAS PERFORMED WHERE LATERALITY AND THE SITE OF THE PROCEDURE WERE CHECKED AND CONFIRMED WITH EVERYONE IN THE ROOM. UNDER FLUOROSCOPIC GUIDANCE, THE TARGET POINT WAS SELECTED AT THE LOWER BORDER OF THE RIGHT AND LEFT SACROILIAC JOINT. TARGET POINT WAS SELECTED AFTER MEDIAL ROTATION AND TILT OF THE MAGNIFIER OR THE C-ARM. I CONFIRMED AGAIN WITH EVERYONE IN THE ROOM THE LATERALITY OF THE TARGET AT 1001. LIDOCAINE 0.5% WAS USED TO NUMB THE SKIN AND THE SUBCUTANEOUS TISSUE BELOW IT. SPINAL NEEDLES, 22-GAUGE, WERE ADVANCED UNDER FLUOROSCOPIC GUIDANCE AND FOLLOWING PATIENT FEEDBACK UNTIL THE TARGETS WERE TOUCHED. THE POSITION OF THE NEEDLES WAS VERIFIED WITH AP AND OBLIQUE VIEWS. AFTER PROPER POSITION OF THE NEEDLES WAS ACHIEVED, ISOVUE-M DYE 30%, 0.1 ML, WAS INJECTED SHOWING ADEQUATE SPREAD OF THE DYE. KENALOG 40 MG WAS INJECTED AT EACH SITE. THEN, A SOLUTION OF 3.0 ML OF BUPIVACAINE 0.125% WAS USED TO FLUSH EACH NEEDLE. THE MEDICATIONS WERE VERIFIED WITH THE NURSE. THERE WAS NO EVIDENCE OF BLOOD, PARESTHESIA OR CEREBROSPINAL FLUID DURING THE PROCEDURE. THE PATIENT WAS SENT TO THE RECOVERY ROOM. THE PATIENT WAS MOVING THE EXTREMITIES AND DOING WELL. THERE WERE NO COMPLICATIONS DURING THE PROCEDURE. ESTIMATED BLOOD LOSS WAS LESS THAN 5 ML. FLUOROSCOPIC TIME WAS 36 SECONDS POST PROCEDURE NOTE THE PROCEDURE DONE WAS DISCUSSED WITH THE PATIENT. THE PATIENT WILL BE SEEN IN A FOLLOW UP IN THE NEXT FEW WEEKS. I AM LOOKING FOR LONG LASTING PAIN RELIEF FOR THE PATIENT WITH THIS INTERVENTION. INSTRUCTIONS WERE GIVEN, QUESTIONS WERE ANSWERED, AND THE PATIENT EXPRESSED UNDERSTANDING AND AGREES WITH THE PLAN. I, HEBER HARRIS, DOCUMENTED THE ABOVE INFORMATION ACTING A SCRIBE FOR DR. MILLER. I HAVE REVIEWED THE ABOVE DOCUMENT, WRITTEN BY HEBER HARRIS, PROCESS CONTROL TECH, AND I VERIFY THAT IT IS ACCURATE PROCEDURE CODES 04573 INJECT SACROILIAC JOINT, MODIFIERS: 50 DISPOSITION & COMMUNICATION FOLLOW UP FOLLOW UP WITH MARKING MACHINE OPERATOR (REASON: POST BILATERAL SIJ ) ELECTRONICALLY SIGNED BY ARELIS MILLER MD, MD ON 02/11/2020 AT 09:22 AM EST DISCLAIMER : THIS IS A VISIT SUMMARY EXTRACTED FROM THE [facility] CHART. IT IS NOT A COPY OF THE [facility] [employer] [facility] PROGRESS NOTE. RITA
== END ==
LOC: M PAIN 08:30
PROVIDERS: ATTEND Anesthesiology
DX: M46.1 Sacroiliitis, not elsewhere classified (principal); M53.3 Sacrococcygeal disorders, not elsewhere classified; M79.7 Fibromyalgia; G43.909 Migraine, unspecified, not intractable, without status migrainosus; F32.9 Major depressive disorder, single episode, unspecified; E78.5 Hyperlipidemia, unspecified; E55.9 Vitamin D deficiency, unspecified; I48.91 Unspecified atrial fibrillation; K21.9 Gastro-esophageal reflux disease without esophagitis; G89.4 Chronic pain syndrome; Z87.891 Personal history of nicotine dependence; Z79.01 Long term (current) use of anticoagulants; Z79.899 Other long term (current) drug therapy; Z88.2 Allergy status to sulfonamides; Z88.8 Allergy status to other drugs, medicaments and biological substances
CPT/HCPCS: 27096; J3301; Q9967

== ENCOUNTER → 2020-02-19 | Outpatient (CLI) | payer OTHER, MEDICAID ==
[~2020-02-19] MED LIST changes: -BUPIVACAINE HCL 0.25% 30ML VIAL As Ordered ONE; -ISOVUE-M 300 61% 15ML VIAL As Ordered ONE; -LIDOCAINE 1% SDV 30ML VIAL As Ordered ONE; -TRIAMCINOLONE ACETONIDE SUSP 40 MG/ML VIAL (J3301) As Ordered ONE; -diazePAM 5 MG TAB As Ordered ONE; -oxyCODONE 5MG TAB As Ordered ONE
--- NOTE | 2020-02-21 04:53 | ECWPNPC ---
PATIENT NAME: SMITH VIVEROS : 1965 GENDER: FEMALE VISIT DATE: 02/19/2020 DISCHARGE DATE: 02/19/20 1316 VISIT LOCKED DATE TIME: PHYSICIAN: ARELIS MILLER MD RESOURCE: ARELIS MILLER MD REASON FOR APPOINTMENT 1. DISCUSS DCS HISTORY OF PRESENT ILLNESS GENERAL: 54-YEAR-OLD FEMALE PATIENT WITH A HISTORY OF CHRONIC LOW BACK AND MAINLY THE LEFT LEG PAIN. THE PATIENT HAS BEEN SUFFERING FROM THIS PAIN FOR MANY YEARS. THE PATIENT DESCRIBES THE PAIN CONTINUOUS, STABBING, THROBBING AND TENDER WITH A PAIN SCORE RANGING FROM 7-10/10 DEPENDING ON PHYSICAL ACTIVITY IN THE BACK TO MAINLY LEFT LEG. THE PATIENT HAS TRIED MEDICATION MANAGEMENT AND INJECTION THERAPY BUT THE PAIN PERSISTS. THE PATIENT IS INTERESTED IN THE SPINAL COLUMN STIMULATOR TRIAL. I HAVE EXPLAINED TO HER THE RISKS AND BENEFITS ASSOCIATED WITH THE PROCEDURE AND SHE WANTS TO MOVE FORWARD. PATIENT DENIES UNEXPLAINABLE WEIGHT LOSS, FEVER, CHILLS, NEW CHANGES ON URINARY OR BOWEL CONTROL. PAIN CENTER INTAKE QUESTIONS: DO YOU HAVE A HISTORY OF MRSA? :NO DO YOU TAKE A BLOOD THINNERS? :NO DO YOU HAVE ANY BLEEDING DISORDERS? :NO ANY NEW NUMBNESS OR WEAKNESS IN YOUR LEGS OR ARMS? :NO ANY PACEMAKER,DEFIBRILLATOR, OR DORSAL COLUMN STIMULATOR? :NO DO YOU HAVE ANY RASHES OR OPEN SORES? :NO ARE YOU ALLERGIC TO IV DYE? :NO ARE YOU DIABETIC? :NO ANY NEW PROBLEMS WITH YOUR MEDICATIONS? :NO HAVE YOU RECEIVED A VACCINE IN THE PAST 30 DAYS? :NO DO YOU PLAN TO RECEIVE A VACCINE IN THE NEXT 21 DAYS? :NO DO YOU NEED ANY PRESCRIPTION? :NO DO YOU TAKE ANY IMMUNOSUPPRESSIVE MEDICATIONS? :NO IS THERE A CHANCE YOU COULD BE ? :NO ARE YOU BREAST FEEDING? :NO FALL RISK SCREENING: SCREENING :TWO OR MORE FALLS WITHOUT INJURY IN THE PAST YEAR PAIN SCREENING: PATIENT HAS A COMPLAINT OF ACUTE OR CHRONIC PAIN :YES LOCATION OF PAIN:LOW BACK, LEFT HIP, RIGHT HIP INTENSITY OF PAIN (SCALE OF 1 TO 10):8 WHAT DOES YOUR PAIN FEEL LIKE:CONTINOUS, STABBING, TENDER, THROBBING, SORE PAIN IS INCREASED BY:ACTIVITIES, PROLONGED STANDING PAIN IS DECREASED BY:OTHERS SLEEP NURSING NOTE: -. CURRENT MEDICATIONS TAKING NITROGLYCERIN 0.4 MG TABLET SUBLINGUAL DIRECTED SUBLINGUAL EVERY 5 MIN: MDD 3 TABLETS, NOTES: NONE LATELY TAKING SUCRALFATE 1 GM TABLET 1 TABLET ORALLY TWICE A DAY TAKING ELIQUIS 5 MG TABLET 1 TAB(S) ORALLY TWICE DAILY TAKING PROTONIX 40 MG TABLET DELAYED RELEASE 1 TABLET ORALLY BID TAKING METOPROLOL SUCCINATE 100 MG CAPSULE ER 24 HOUR SPRINKLE 1 CAPSULE ORALLY ONCE A DAY TAKING SKELAXIN 800 MG TABLET 1 TABLET ORALLY THREE TIMES DAILY NEEDED NOT-TAKING BACLOFEN 5 MG TABLET 1 TABLET WITH FOOD OR MILK ORALLY THREE TIMES A DAY NOT-TAKING METAXALONE 800 MG TABLET 1 TABLET ORALLY NEEDED FOR SPASMS AND PAIN THREE TIMES A DAY MDD3 NOT-TAKING TIZANIDINE HCL 2 MG TABLET 1 TABLET NEEDED ORALLY THREE TIMES A DAY NOT-TAKING FUROSEMIDE 20 MG TABLET 1 TABLET ORALLY ONCE A DAY NOT-TAKING MAY USE - - CBD OIL0(OTC) 2 GTTS ORALLY PT TAKES ON HER OWN NEEDED NOT-TAKING BELBUCA 150 MCG FILM 1 FILM TO THE GUM BUCALLY ONCE A DAY NOT-TAKING ROBAXIN 500 MG TABLET 1.5 TABLETS ORALLY EVERY 4 HRS NOT-TAKING PAROXETINE HCL 30 MG TABLET 1 TABLET IN THE MORNING ORALLY ONCE A DAY MEDICATION LIST REVIEWED AND RECONCILED WITH THE PATIENT PAST MEDICAL HISTORY FIBROMYALGIA DX 4 YEARS AGO, BEING FOLLOWED AT PAIN CLINIC MIGRAINE HEADACHE STRESS INCONTINENCE DEPRESSION HYPERLIPIDEMIA VITAMIN D DEFICIENCY AFIB GERD INTERMITTENT A FIB STRESS INCONTINENCE, FEMALE CHRONIC PAIN SYNDROME UNSPECIFIED VITAMIN D DEFICIENCY MIGRAINE, UNSPECIFIED WITHOUT MENTION OF INTRACTABLE MIGRAINE WITHOUT MENTION OF STATUS MIGRAINOSUS HYPERTENSION CONGESTIVE HEART FAILURE PER ED DOC-07/09/2019- PT STATES SHE HAS SEEN DR CASTILLO SINCE AND IS CLEARED FROM THAT CHF EPISODE UNSTEADY GAIT LOW BACK PAIN ALLERGIES ZIPSOR: SWELLING,HIVES - ALLERGY FLEXERIL: AGGITATION - ALLERGY LYRICA: ANAPHYLAXIS - ALLERGY DICLOFENAC POTASSIUM: AGGITATION (ZIPSOR) - ALLERGY BACTRIM: NAUSEA/VOMITING - ALLERGY CYMBALTA: NAUSEA/VOMITING - SIDE EFFECTS AMITRIPTYLINE: AGGITATION - SIDE EFFECTS GABAPENTIN: HALLUCINATIONS - SIDE EFFECTS TIZANIDINE HCL: HIVES - ALLERGY KETOROLAC TROMETHAMINE: STOMACH PAIN - ALLERGY SURGICAL HISTORY TUBAL LIGATION 1987 DISTAL 4TH FINGER REPAIR SECONDARY TO TRAUMATIC INJURY BENIGN TUMOR REMOVAL RIGHT LEG DENTAL SURGERIES CHOLECYSTECTOMY 05/2014 HYSTERECTOMY STILL HAS 1 OVARY BUT NOT SURE WHICH ONE 2012 ABSCESS R GROIN 2015 LOOP RECORDER 10/2018 LEFT SHOULDER REPAIR 02/20/19 FAMILY HISTORY FATHER: , PNEUMONIA, CHF, NEUROPATHY, BLOOD CLOT, DIAGNOSED WITH UNSPECIFIED HEART DISEASE, DIABETES, UNSPECIFIED CEREBRAL ARTERY OCCLUSION WITH CEREBRAL INFARCTION MOTHER: , CANCER, HYPERTENSION, UNSPECIFIED HEART DISEASE, OTHER MALIGNANT NEOPLASM OF UNSPECIFIED SITE, DIABETES, UNSPECIFIED CEREBRAL ARTERY OCCLUSION WITH CEREBRAL INFARCTION SIBLINGS: ALIVE, LUPUS, DIABETES SON(S): ALIVE DAUGHTER(S): ALIVE 2 BROTHER(S) , 5 SISTER(S) . 1 SON(S) , 1 DAUGHTER(S) - HEALTHY. SOCIAL HISTORY GENERAL: TOBACCO USE ARE YOU A:FORMER SMOKER HOW LONG HAS IT BEEN SINCE YOU LAST SMOKED?5-10 YEARS VAPORNO E-CIGARETTEYES LATEX QUESTIONNAIRE LATEX ALLERGY : HAVE YOU EVER DEVELOPED ANY TYPE OF REACTION AFTER HANDLING LATEX PRODUCTS SUCH RUBBER GLOVES, CONDOMS, DIAPHRAGMS, BALLOONS, SOCKS, OR UNDERWEAR?NO LATEX ALLERGY : HAVE YOU EVER DEVELOPED ANY TYPE OF REACTION DURING OR AFTER DENTAL APPOINTMENT, VAGINAL/RECTAL EXAMINATION, SURGICAL PROCEDURE, OR ANY OTHER EXPOSURE?NO DATE ASKED : 02/02/2020 LATEX RISK : HAVE YOU EVER HAD ANY DIFFICULTY BREATHING OR HIVES AFTER EATING OR HANDLING ANY FRUITS, OR VEGETABLES; SUCH KIWI, BANANAS, STONE FRUITS, OR CHESTNUTSNO LATEX RISK : DO YOU HAVE A PREVIOUS PERSONAL HISTORY OF MORE THAN NINE SURGERIES, SPINA BIFIDA, OR REPEATED CATHERIZATIONS? YES - PLEASE INDICATE : > 9 SURGERIES LATEX RISK : ARE YOU FREQUENTLY EXPOSED TO LATEX PRODUCTS IN YOUR OCCUPATION?NO BMI CARE GOAL FOLLOW-UP ABOVE NORMAL BMI FOLLOW-UPLIFESTYLE EDUCATION REGARDING DIET ALCOHOL SCREENING DID YOU HAVE A DRINK CONTAINING ALCOHOL IN THE PAST YEAR?NO POINTS0 INTERPRETATIONNEGATIVE RECREATIONAL DRUG USE DRUG USE?NO CAFFEINE CAFFEINE USE?YES SEXUAL HX HAD SEX IN THE LAST 12 MONTHS (VAGINAL, ORAL, OR ANAL)?NO HAVE YOU EVER HAD AN STD?NO HIV / HEP-C SCREENING HIV TEST OFFERED TO PATIENT:YES DATE OFFERED:10/26/2017 TEST ACCEPTED:NO HEP-C TEST OFFERED TO PATIENT:NO REASON:PATIENT DECLINED BROCHURE PROVIDED TO PATIENTNO CAODAISM NO CATHOLIC BELIEFS THAT WOULD IMPACT HEALTH CARE. LANGUAGE LATVIAN. LEARNING BARRIERS / SPECIAL NEEDS CHANGE FROM LAST VISIT?YES BARRIERS TO LEARNING?NO HEARING IMPAIRED?NO VISION IMPAIRED?YES COGNITIVELY IMPAIRED?NO :CORRECTIVE LENSES READINESS TO LEARN?YES LEARNING PREFERENCES?NO LEARNING CAPABILITIES PRESENT?YES EMOTIONAL BARRIERS?YES ANXIETY SPECIAL DEVICES?YES :WALKER NEEDED LAW EXAMINER NEEDED?NO DOMESTIC VIOLENCE DO YOU FEEL SAFE IN YOUR ENVIRONMENT?YES OCCUPATION: UNEMPLOYED. DIET: REGULAR. EXERCISE: NO REGULAR EXERCISE. MARITAL STATUS: .. OTHERS AT HOME: [id number], BROTHER, NEPHEW AND BOYFRIEND. PAIN CLINIC PFS, CLERGY, PUBLIC HEALTH REFERRALS PFS REFERRAL NEEDED?NO CLERGY REFERRAL NEEDED?NO PUBLIC HEALTH REFERRAL NEEDED?NO HAS THE PATIENT BEEN EDUCATED REGARDING HIS/HER PLAN OF CARE?YES HAS THE PATIENT BEEN EDUCATED REGARDING PAIN, THE RISK FOR PAIN, THE IMPORTANCE OF EFFECTIVE PAIN MANAGEMENT, AND THE PAIN ASSESSMENT PROCESS?YES ADVANCE DIRECTIVE ADVANCE DIRECTIVE DISCUSSED WITH PATIENT:YES 02/02/2020 PT HAS NO ADVANCED DIRECTIVES, DECLINES HCP INFORMATION AND ASSISTANCE WITH FORM AT THIS TIME. HOSPITALIZATION/MAJOR DIAGNOSTIC PROCEDURE ABOVE SURGERIES MRSA RIGHT GROIN 2014, C DIFF 2014 CHEST PAIN 10/20/2016 [facility]- IM 09/2017 DIVERTICULITIS AND /HYPOTENSION 06/2018 SYNCOPE 09/2018 A-FIB AND LOOP RECORDER 10/2018 REVIEW OF SYSTEMS CONSTITUTIONAL: ANY RECENT FEVER NO . CHILLS NO . WEIGHT CHANGE OF UNKNOWN REASONS NO . GASTROENTEROLOGY: NEW UNEXPLAINABLE CHANGES IN BOWEL CONTROL NO . CONSTIPATION NO . GENITOURINARY: ANY NEW CHANGE IN BLADDER CONTROL? NO . NEUROLOGY: NEW ONSET DIZZINESS OR NEUROLOGICAL CHANGES NOT MENTIONED NO . NEW NUMBNESS OR PAIN PATTERNS NOT MENTIONED AND PERTINENT TO TODAY'S VISIT NO . CARDIOLOGY: NEW CHEST PRESSURE NO . NEW CHEST PAIN NO . RESPIRATORY: UNEXPLAINABLE COUGH NO . NEW SHORTNESS OF BREATH NO . VITAL SIGNS WT 262 LBS, HT 61 IN, BMI 49.50 INDEX, BP 135/62 MM HG, HR 72 /MIN, RR 18 /MIN, TEMP 95.8 F, OXYGEN SAT % 99, SAFE IN ENV? (Y/N) YES, REVIEWED BY: KG. EXAMINATION GENERAL EXAMINATION: THE PATIENT IS ALERT, ORIENTED TIMES THREE AND COOPERATIVE. HEART SHOWS REGULAR RHYTHM, NO MURMURS AND NO GALLOPS. LUNGS ARE CLEAR TO AUSCULTATION. THE PATIENT IS LIMPING FROM THE LEFT LEG. THE LEFT LEG IS WEAKER THAN THE RIGHT LEG ON FLEXION AND EXTENSION. STRAIGHT LEG RAISE IS POSITIVE FOR RADICULOPATHY ON THE LEFT AT 50 DEGREES. LUMBAR MRI DATED 12/2019 SHOWS SOME BULGING DISC OF L5-S1. 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 VIVEROS. WE AGREE ON MOVING FORWARD WITH THE TRIAL. THE PATIENT HAS HAD THE PSYCHOLOGICAL EVALUATION WHICH I REVIEWED. WE NEED TO LOOK FOR THE NOTE FROM FANNY MATHIS. WE ARE GOING TO REQUEST AUTHORIZATION FOR THE TRIAL. THE PATIENT HAS A HISTORY OF MRSA SO I WILL GIVE HER VANCOMYCIN A PREOPERATIVE IV MEDICATION. I WILL ORDER HIBICLENS FOR THE PATIENT. THE PATIENT STATES THAT SHE CANNOT USE BACTRIM SO I WILL CHECK WHAT ANTIBIOTICS TO USE. THE PATIENT IS VERY COMFORTABLE. I WILL GIVE HER SOME SOMA 1 TABLET A DAY NEEDED. I REVIEWED THE ISTOP, REFERENCE NUMBER [id number]. I DISCUSSED WITH THE PATIENT TO BE CAREFUL WITH THIS MEDIATION AND NOT TO USE IT WITH ALCOHOL AND THAT IT CAN CAUSE DEPENDENCE. I WILL FOLLOW UP THE PATIENT IN 6 WEEKS. THE PATIENT REPORTS UNDERSTANDING AND AGREES WITH THE PLAN. I, HEBER HARRIS, DOCUMENTED THE ABOVE INFORMATION ACTING A SCRIBE FOR DR. MILLER. I HAVE REVIEWED THE ABOVE DOCUMENT, WRITTEN BY HEBER HARRIS, ANIMAL KEEPER, AND I VERIFY THAT IT IS ACCURATE. PREVENTIVE MEDICINE PAIN CLINIC TEACHING: MEDICATIONS GAVE PRINTED MATERIAL FOR MEDICATION SOMA. PROCEDURE CODES FA211 ESTABILISHED PATIENT [facility] CHARGE 96450 OFFICE/OUTPATIENT VISIT EST DISPOSITION & COMMUNICATION FOLLOW UP FOLLOW UP WITH DR. Zamudio IN 6 WEEKS (REASON: DISCUSS DCS) ELECTRONICALLY SIGNED BY ARELIS MILLER MD, MD ON 02/20/2020 AT 04:54 PM EST DISCLAIMER : THIS IS A VISIT SUMMARY EXTRACTED FROM THE [employer] CHART. IT IS NOT A COPY OF THE [employer] PROGRESS NOTE. RITA
== END ==
LOC: M PAIN 13:00
PROVIDERS: ATTEND Anesthesiology
DX: M51.16 Intervertebral disc disorders with radiculopathy, lumbar region (principal); G89.29 Other chronic pain; M79.7 Fibromyalgia; G43.909 Migraine, unspecified, not intractable, without status migrainosus; K21.9 Gastro-esophageal reflux disease without esophagitis; Z86.59 Personal history of other mental and behavioral disorders; Z87.891 Personal history of nicotine dependence; Z88.1 Allergy status to other antibiotic agents; Z88.6 Allergy status to analgesic agent; Z88.8 Allergy status to other drugs, medicaments and biological substances; Z86.14 Personal history of Methicillin resistant Staphylococcus aureus infection; E66.01 Morbid (severe) obesity due to excess calories; Z68.42 Body mass index [BMI] 45.0-49.9, adult; Z79.01 Long term (current) use of anticoagulants; Z79.899 Other long term (current) drug therapy

== ENCOUNTER 2020-02-23 22:31 | Emergency (ER) | payer MEDICAID, OTHER ==
[~2020-02-23] VITALS: Ht 157.5 cm; Wt 119.7 kg
[2020-02-24] MEDS ORDERED: ACETAMINOPHEN TAB 650MG DOSE (2X325MG) PO ONE (00:15)
[2020-02-24] MEDS ORDERED: traMADol 50 MG TAB PO ONE (00:15)
[2020-02-24 00:36] VITALS: BP 116/64
== END 2020-02-24 00:52 | disposition home or self-care (01) ==
LOC: M ED 22:31
DX: M62.838 Other muscle spasm (principal); G89.29 Other chronic pain; M54.5 Low back pain; M54.2 Cervicalgia; M79.7 Fibromyalgia; R51.9 Headache, unspecified; R56.9 Unspecified convulsions; R07.9 Chest pain, unspecified; I50.9 Heart failure, unspecified; I48.91 Unspecified atrial fibrillation; I25.2 Old myocardial infarction; I10 Essential (primary) hypertension; Z86.718 Personal history of other venous thrombosis and embolism; J44.9 Chronic obstructive pulmonary disease, unspecified; Z87.01 Personal history of pneumonia (recurrent); G47.30 Sleep apnea, unspecified; R04.0 Epistaxis; H40.9 Unspecified glaucoma; K21.9 Gastro-esophageal reflux disease without esophagitis; K57.92 Diverticulitis of intestine, part unspecified, without perforation or abscess without bleeding; Z87.442 Personal history of urinary calculi; Z87.440 Personal history of urinary (tract) infections; Z85.41 Personal history of malignant neoplasm of cervix uteri; F31.89 Other bipolar disorder; F41.9 Anxiety disorder, unspecified; F20.9 Schizophrenia, unspecified; F60.9 Personality disorder, unspecified; Z86.14 Personal history of Methicillin resistant Staphylococcus aureus infection; Z79.01 Long term (current) use of anticoagulants; Z79.899 Other long term (current) drug therapy; Z88.0 Allergy status to penicillin; Z88.1 Allergy status to other antibiotic agents; Z88.8 Allergy status to other drugs, medicaments and biological substances

== ENCOUNTER → 2020-02-27 | Outpatient (CLI) | payer OTHER ==
--- NOTE | 2020-02-27 14:27 | REP ---
INDICATION: LT SHOULDER PAIN ? RCT. COMPARISON: Comparison MRI study of the left shoulder is from September 18, 2018.. TECHNIQUE: Axial, oblique coronal, and oblique sagittal imaging planes utilized. T1 and T2 weighted scans are included with without fat saturation in the usual fashion. FINDINGS: Subcortical cyst formation is again noted in the superolateral aspect of the humeral head. There is a small amount of glenohumeral joint fluid. Glenohumeral and chromic clavicular joints are normally aligned. AC joint hypertrophy is again noted. There is some micrometallic artifact on the underside along the undersurface of the acromion process question surgical decompression in the interval since the last study. There is tendinitis tendinosis change in the distal supraspinatus tendon on oblique coronal T1 weighted scans. No focal supraspinatus cuff tear is seen on T2 weighted scans. The superior labral cartilage appears more closely applied to the bony glenoid. No anterior or posterior labral tear is appreciated. Biceps tendon is in the bony bicipital groove and appears intact. The subscapularis and infraspinatus tendons have an intact appearance. No periarticular cyst or mass is seen. IMPRESSION: Distal supraspinatus tendinosis tendinitis change. No focal cuff tear is appreciated. Micrometallic artifact question subacromial decompression in the interval since the prior study. Mild AC joint hypertrophy and a small subacromial subdeltoid bursal effusion. <Electronically signed by Abel Chao > 02/27/20 [id number]
== END ==
LOC: M PLARAD 09:21
PROVIDERS: ATTEND Orthopaedic Surgery Sports Medicine
DX: M75.52 Bursitis of left shoulder (principal); M25.512 Pain in left shoulder

== ENCOUNTER → 2020-04-01 | Outpatient (CLI) | payer OTHER, MEDICAID ==
[~2020-04-01] MED LIST changes: +GABA-282 PO; -GABA-843 PO; +LISI10TA22 PO; -LISI10TA4 PO; +METH-1164; -METH1TAB40
--- NOTE | 2020-04-03 05:20 | ECWPNPC ---
PATIENT NAME: SMITH VIVEROS : 1965 GENDER: FEMALE VISIT DATE: 04/01/2020 DISCHARGE DATE: 04/01/20 1513 VISIT LOCKED DATE TIME: PHYSICIAN: ARELIS MILLER MD RESOURCE: ARELIS MILLER MD REASON FOR APPOINTMENT 1. DISCUSS DCS HISTORY OF PRESENT ILLNESS GENERAL: 55-YEAR-OLD FEMALE PATIENT WITH A HISTORY OF CHRONIC LOW BACK AND MAINLY LEFT LEG PAIN. SHE HAS BEEN SUFFERING FROM THIS FOR MANY YEARS. THE PATIENT DESCRIBES THE PAIN STABBING AND THROBBING WITH A PAIN SCORE RANGING FROM 6-10/10. PRESENTLY, SHE IS USING SKELAXIN AND SOME SOMA PRN TO HELP CONTROL THE PAIN. SHE IS VERY UNCOMFORTABLE. SHE HAS DIFFICULTY CLEANING HER HOUSE, GROCERY SHOPPING, MOVING AROUND AND SLEEPING. THE PATIENT WAS LOOKING FORWARD TO DOING A SPINAL COLUMN STIMULATOR TRIAL BUT THIS WAS DENIED. REVIEWING THE MUSCLE RELAXANTS, THE PATIENT STATES THAT THE TIZANIDINE AGITATES HER. THE BACLOFEN DID NOT HELP HER. LYRICA MAKES THE PATIENT'S THROAT SWELL. CYMBALTA MAKES HER NAUSEOUS. GABAPENTIN AGITATES HER. BELBUCA WAS HELPING HER BUT SHE DID NOT LIKE THE WAY IT MADE HER FEEL, ALTHOUGH SHE WAS HAVING THOSE SIDE EFFECTS, SHE FELT THAT THE BELBUCA WAS HELPING HER THE MOST. FALL RISK SCREENING: SCREENING :NO FALLS REPORTED IN THE LAST YEAR PAIN SCREENING: PATIENT HAS A COMPLAINT OF ACUTE OR CHRONIC PAIN :YES LOCATION OF PAIN:LOW BACK INTENSITY OF PAIN (SCALE OF 1 TO 10):10 WHAT DOES YOUR PAIN FEEL LIKE:ACHING, CONTINOUS, BURNING PAIN IS INCREASED BY:ACTIVITIES NURSING NOTE: -. PAIN CENTER INTAKE QUESTIONS: DO YOU HAVE A HISTORY OF MRSA? :NO DO YOU TAKE A BLOOD THINNERS? :NO DO YOU HAVE ANY BLEEDING DISORDERS? :NO ANY NEW NUMBNESS OR WEAKNESS IN YOUR LEGS OR ARMS? :NO ANY PACEMAKER,DEFIBRILLATOR, OR DORSAL COLUMN STIMULATOR? :NO DO YOU HAVE ANY RASHES OR OPEN SORES? :NO ARE YOU ALLERGIC TO IV DYE? :NO ARE YOU DIABETIC? :NO ANY NEW PROBLEMS WITH YOUR MEDICATIONS? :NO HAVE YOU RECEIVED A VACCINE IN THE PAST 30 DAYS? :NO DO YOU PLAN TO RECEIVE A VACCINE IN THE NEXT 21 DAYS? :NO DO YOU NEED ANY PRESCRIPTION? :NO DO YOU TAKE ANY IMMUNOSUPPRESSIVE MEDICATIONS? :NO IS THERE A CHANCE YOU COULD BE ? :NO ARE YOU BREAST FEEDING? :NO CURRENT MEDICATIONS TAKING NITROGLYCERIN 0.4 MG TABLET SUBLINGUAL DIRECTED SUBLINGUAL EVERY 5 MIN: MDD 3 TABLETS, NOTES: NONE LATELY TAKING SUCRALFATE 1 GM TABLET 1 TABLET ORALLY TWICE A DAY TAKING ELIQUIS 5 MG TABLET 1 TAB(S) ORALLY TWICE DAILY TAKING PROTONIX 40 MG TABLET DELAYED RELEASE 1 TABLET ORALLY BID TAKING METOPROLOL SUCCINATE 100 MG CAPSULE ER 24 HOUR SPRINKLE 1 CAPSULE ORALLY ONCE A DAY TAKING SKELAXIN 800 MG TABLET 1 TABLET ORALLY THREE TIMES DAILY NEEDED TAKING CARISOPRODOL 350 MG TABLET 1 TABLET NEEDED ORALLY DAILY NOT-TAKING METAXALONE 800 MG TABLET 1 TABLET ORALLY NEEDED FOR SPASMS AND PAIN THREE TIMES A DAY MDD3 NOT-TAKING BACLOFEN 5 MG TABLET 1 TABLET WITH FOOD OR MILK ORALLY THREE TIMES A DAY NOT-TAKING TIZANIDINE HCL 2 MG TABLET 1 TABLET NEEDED ORALLY THREE TIMES A DAY NOT-TAKING FUROSEMIDE 20 MG TABLET 1 TABLET ORALLY ONCE A DAY NOT-TAKING MAY USE - - CBD OIL0(OTC) 2 GTTS ORALLY PT TAKES ON HER OWN NEEDED NOT-TAKING BELBUCA 150 MCG FILM 1 FILM TO THE GUM BUCALLY ONCE A DAY NOT-TAKING ROBAXIN 500 MG TABLET 1.5 TABLETS ORALLY EVERY 4 HRS NOT-TAKING PAROXETINE HCL 30 MG TABLET 1 TABLET IN THE MORNING ORALLY ONCE A DAY MEDICATION LIST REVIEWED AND RECONCILED WITH THE PATIENT PAST MEDICAL HISTORY FIBROMYALGIA DX 4 YEARS AGO, BEING FOLLOWED AT PAIN CLINIC MIGRAINE HEADACHE STRESS INCONTINENCE DEPRESSION HYPERLIPIDEMIA VITAMIN D DEFICIENCY AFIB GERD INTERMITTENT A FIB STRESS INCONTINENCE, FEMALE CHRONIC PAIN SYNDROME UNSPECIFIED VITAMIN D DEFICIENCY MIGRAINE, UNSPECIFIED WITHOUT MENTION OF INTRACTABLE MIGRAINE WITHOUT MENTION OF STATUS MIGRAINOSUS HYPERTENSION CONGESTIVE HEART FAILURE PER ED DOC-07/09/2019- PT STATES SHE HAS SEEN DR CASTILLO SINCE AND IS CLEARED FROM THAT CHF EPISODE UNSTEADY GAIT LOW BACK PAIN ALLERGIES ZIPSOR: SWELLING,HIVES - ALLERGY FLEXERIL: AGGITATION - ALLERGY LYRICA: ANAPHYLAXIS - ALLERGY DICLOFENAC POTASSIUM: AGGITATION (ZIPSOR) - ALLERGY BACTRIM: NAUSEA/VOMITING - ALLERGY CYMBALTA: NAUSEA/VOMITING - SIDE EFFECTS AMITRIPTYLINE: AGGITATION - SIDE EFFECTS GABAPENTIN: HALLUCINATIONS - SIDE EFFECTS TIZANIDINE HCL: HIVES - ALLERGY KETOROLAC TROMETHAMINE: STOMACH PAIN - ALLERGY SURGICAL HISTORY TUBAL LIGATION 1988 DISTAL 4TH FINGER REPAIR SECONDARY TO TRAUMATIC INJURY BENIGN TUMOR REMOVAL RIGHT LEG DENTAL SURGERIES CHOLECYSTECTOMY 05/2014 HYSTERECTOMY STILL HAS 1 OVARY BUT NOT SURE WHICH ONE 2012 ABSCESS R GROIN 2014 LOOP RECORDER 10/2018 LEFT SHOULDER REPAIR 02/20/19 FAMILY HISTORY FATHER: , PNEUMONIA, CHF, NEUROPATHY, BLOOD CLOT, DIAGNOSED WITH UNSPECIFIED HEART DISEASE, DIABETES, UNSPECIFIED CEREBRAL ARTERY OCCLUSION WITH CEREBRAL INFARCTION MOTHER: , CANCER, HYPERTENSION, UNSPECIFIED HEART DISEASE, DIABETES, UNSPECIFIED CEREBRAL ARTERY OCCLUSION WITH CEREBRAL INFARCTION, OTHER MALIGNANT NEOPLASM OF UNSPECIFIED SITE SIBLINGS: ALIVE, LUPUS, DIABETES SON(S): ALIVE DAUGHTER(S): ALIVE 2 BROTHER(S) , 5 SISTER(S) . 1 SON(S) , 1 DAUGHTER(S) - HEALTHY. HOSPITALIZATION/MAJOR DIAGNOSTIC PROCEDURE ABOVE SURGERIES MRSA RIGHT GROIN 2014, C DIFF 2014 CHEST PAIN 10/20/2016 [facility]- IM 09/2017 DIVERTICULITIS AND /HYPOTENSION 06/2018 SYNCOPE 09/2018 A-FIB AND LOOP RECORDER 10/2018 REVIEW OF SYSTEMS CONSTITUTIONAL: ANY RECENT FEVER NO . CHILLS NO . WEIGHT CHANGE OF UNKNOWN REASONS NO . GASTROENTEROLOGY: NEW UNEXPLAINABLE CHANGES IN BOWEL CONTROL NO . CONSTIPATION NO . GENITOURINARY: ANY NEW CHANGE IN BLADDER CONTROL? NO . NEUROLOGY: NEW ONSET DIZZINESS OR NEUROLOGICAL CHANGES NOT MENTIONED NO . NEW NUMBNESS OR PAIN PATTERNS NOT MENTIONED AND PERTINENT TO TODAY'S VISIT NO . CARDIOLOGY: NEW CHEST PRESSURE NO . NEW CHEST PAIN NO . RESPIRATORY: UNEXPLAINABLE COUGH NO . NEW SHORTNESS OF BREATH NO . VITAL SIGNS WT 259.0 LBS, HT 61 IN, BMI 48.93 INDEX, BP 138/88 MM HG, HR 103 /MIN, RR 18 /MIN, TEMP 97.9 F, OXYGEN SAT % 95%, NA INITIALS AW 1413. EXAMINATION GENERAL EXAMINATION: THE PATIENT IS ALERT, ORIENTED TIMES THREE AND COOPERATIVE. SHE WALKS WITH AN ANTALGIC GAIT. SHE LIMPS FROM THE RIGHT LEG WHICH IS WEAKER THAN THE LEFT LEG. STRAIGHT LEG RAISE IS POSITIVE FOR RADICULOPATHY. LUNGS ARE CLEAR TO AUSCULTATION. HEART SHOWS REGULAR RHYTHM, NO MURMURS AND NO GALLOPS. MRI OF THE LUMBAR SPINE DATED 12/22/2019 SHOWS BULGING DISC AT L4-L5 AND L5-S1. 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 VIVEROS. I AM GOING TO PUT HER BACK ON BELBUCA SINCE THAT SEEMED TO HAVE HELPED HER AND I WILL REQUEST AUTHORIZATION FOR A LUMBAR EPDIRUAL STEROID INJECTION AT L4-L5. WE WILL BOOK HER FIRST THING IN THE MORNING SHE HAS HISTORY OF PROBLEMS. SHE WILL ALSO NEED AN IV. I DISCUSSED THE RISKS ASSOCIATED WITH NARCOTICS SUCH ADDICTION. I WENT OVER OUR POLICY WITH [facility] ABOUT NARCOTICS. I REVIEWED THE ISTOP DONE ON APRIL 05 WHICH IS CONCORDANT, REFERENCE NUMBER [id number]. THE PATIENT CANNOT USE THE PATCH OF BELBUCA BECAUSE IT IRRITATES HER SKIN SO WE WILL GIVE HER THE FILM. THE PATIENT REPORTS UNDERSTANDING AND AGREES WITH THE PLAN. I, HEBER HARRIS, DOCUMENTED THE ABOVE INFORMATION ACTING A SCRIBE FOR DR. MILLER. I HAVE REVIEWED THE ABOVE DOCUMENT, WRITTEN BY HEBER HARRIS, ART SUPERVISOR, AND I VERIFY THAT IT IS ACCURATE. PROCEDURE CODES 32881 OFFICE/OUTPATIENT VISIT EST FA211 ESTABILISHED PATIENT [facility] CHARGE DISPOSITION & COMMUNICATION FOLLOW UP REQUEST AUTH FOR LUMBAR EPIDURAL STEROID INJECTION, HOLD ELIQUIS, BOOK FOR FIRST THING IN THE MORNING (REASON: REQUEST AUTH FOR BELBUCA AND MAKE FOLLOW UP WITH [employer] IN 3 WEEKS FOR MED MANAGEMENT) ELECTRONICALLY SIGNED BY ARELIS MILLER MD, MD ON 04/02/2020 AT 10:48 AM EST DISCLAIMER : THIS IS A VISIT SUMMARY EXTRACTED FROM THE [employer] CHART. IT IS NOT A COPY OF THE [employer] PROGRESS NOTE. ASPEND
== END ==
LOC: M PAIN 15:00
PROVIDERS: ATTEND Anesthesiology
DX: M51.16 Intervertebral disc disorders with radiculopathy, lumbar region (principal); M79.7 Fibromyalgia; G43.909 Migraine, unspecified, not intractable, without status migrainosus; F31.9 Bipolar disorder, unspecified; N39.3 Stress incontinence (female) (male); F32.9 Major depressive disorder, single episode, unspecified; E78.5 Hyperlipidemia, unspecified; E55.9 Vitamin D deficiency, unspecified; I48.91 Unspecified atrial fibrillation; K21.9 Gastro-esophageal reflux disease without esophagitis; G89.4 Chronic pain syndrome; Z79.01 Long term (current) use of anticoagulants; Z79.899 Other long term (current) drug therapy; Z88.8 Allergy status to other drugs, medicaments and biological substances; Z88.2 Allergy status to sulfonamides

== ENCOUNTER → 2020-04-18 | Outpatient (CLI) | payer OTHER, MEDICAID | LOC: M LABSMTC 11:59 | PROVIDERS: ATTEND Anesthesiology | DX: Z20.822 Contact with and (suspected) exposure to COVID-19 (principal) ==

== ENCOUNTER → 2020-04-23 | Outpatient (CLI) | payer OTHER, MEDICAID ==
[~2020-04-23] MED LIST changes: +ISOVUE-M 300 61% 15ML VIAL As Ordered ONE; +LIDOCAINE 1% SDV 30ML VIAL As Ordered ONE; +diazePAM 5MG TABLET As Ordered ONE; +methylPREDNISolone SUSP 40MG/ML 1ML VIAL (DEPO MEDROL) As Ordered ONE; +oxyCODONE 5MG TAB As Ordered ONE
--- NOTE | 2020-04-23 12:05 | REP ---
INDICATION: LUMBAR EPIDURAL STEROID INJECTION. COMPARISON: None. TECHNIQUE: Two views. 18.3 seconds of fluoroscopy time is reported. FINDINGS: A sequence of 2 last image hold fluoroscopically obtained spot radiograph(s) of the lumbar spine document(s) needle position(s) and contrast injection associated with injection procedure. IMPRESSION: Procedural imaging. <Electronically signed by Abel Chao > 04/23/20 [id number]
--- NOTE | 2020-04-24 01:20 | ECWPNPC ---
PATIENT NAME: SMITH VIVEROS : 1965 GENDER: FEMALE VISIT DATE: 04/23/2020 DISCHARGE DATE: 04/23/20 1103 VISIT LOCKED DATE TIME: PHYSICIAN: ARELIS MILLER MD RESOURCE: ARELIS MILLER MD REASON FOR APPOINTMENT 1. LUMBAR EPIDURAL STEROID INJECTION HISTORY OF PRESENT ILLNESS PAIN CENTER INTAKE QUESTIONS: DO YOU HAVE A HISTORY OF MRSA? :NO DO YOU TAKE A BLOOD THINNERS? :NO DO YOU HAVE ANY BLEEDING DISORDERS? :NO ANY NEW NUMBNESS OR WEAKNESS IN YOUR LEGS OR ARMS? :NO ANY PACEMAKER,DEFIBRILLATOR, OR DORSAL COLUMN STIMULATOR? :NO DO YOU HAVE ANY RASHES OR OPEN SORES? :NO ARE YOU ALLERGIC TO IV DYE? :NO ARE YOU DIABETIC? :NO ANY NEW PROBLEMS WITH YOUR MEDICATIONS? :NO HAVE YOU RECEIVED A VACCINE IN THE PAST 30 DAYS? :NO DO YOU PLAN TO RECEIVE A VACCINE IN THE NEXT 21 DAYS? :NO DO YOU TAKE ANY IMMUNOSUPPRESSIVE MEDICATIONS? :NO ANY HISTORY OF SEIZURES? :NO ANY HISTORY OF CARDIAC ISSUES OR EVENTS? :NO DO YOU HAVE SLEEP APNEA? :NO ANY RECENT HEAD INJURY? :NO DO YOU HAVE ANY NEW INFECTIONS? :NO IS THERE A CHANCE YOU COULD BE ? :NO ARE YOU BREAST FEEDING? :NO WHEN DID YOU LAST EAT? : -1900 04/22/20 WHEN DID YOU LAST DRINK? : -0600 04/23/20 WHAT DID YOU LAST DRINK? : -WATER NAME OF PERSON DRIVING YOU HOME? : -NETTIE SHARMIN- [place] AND HERSISTER WILL BE HOME WHEN SHE GETS THERE DO YOU HAVE ANY OTHER QUESTIONS OR CONCERNS? : - GENERAL: -. FALL RISK SCREENING: SCREENING :TWO OR MORE FALLS WITHOUT INJURY IN THE PAST YEAR PAIN SCREENING: PATIENT HAS A COMPLAINT OF ACUTE OR CHRONIC PAIN :YES LOCATION OF PAIN:BACK INTENSITY OF PAIN (SCALE OF 1 TO 10):10 WHAT DOES YOUR PAIN FEEL LIKE:BURNING, CONTINOUS, SHARP, TENDER PAIN IS INCREASED BY:ACTIVITIES NURSING NOTE: -. CURRENT MEDICATIONS TAKING NITROGLYCERIN 0.4 MG TABLET SUBLINGUAL DIRECTED SUBLINGUAL EVERY 5 MIN: MDD 3 TABLETS, NOTES: NONE LATELY TAKING SUCRALFATE 1 GM TABLET 1 TABLET ORALLY TWICE A DAY TAKING PROTONIX 40 MG TABLET DELAYED RELEASE 1 TABLET ORALLY BID TAKING METOPROLOL SUCCINATE 100 MG CAPSULE ER 24 HOUR SPRINKLE 1 CAPSULE ORALLY ONCE A DAY, NOTES: 2/11/21 2000 TAKING BELBUCA 75 MCG FILM 1 FILM TO THE GUM BUCALLY FOR PAIN ONCE A DAY, NOTES: 04/22/201999 TAKING ELIQUIS 5 MG TABLET 1 TAB(S) ORALLY TWICE DAILY, NOTES: LAST DOSE 04/17/2020 NOT-TAKING SKELAXIN 800 MG TABLET 1 TABLET ORALLY THREE TIMES DAILY NEEDED NOT-TAKING CARISOPRODOL 350 MG TABLET 1 TABLET NEEDED ORALLY DAILY NOT-TAKING METAXALONE 800 MG TABLET 1 TABLET ORALLY NEEDED FOR SPASMS AND PAIN THREE TIMES A DAY MDD3 NOT-TAKING BACLOFEN 5 MG TABLET 1 TABLET WITH FOOD OR MILK ORALLY THREE TIMES A DAY NOT-TAKING TIZANIDINE HCL 2 MG TABLET 1 TABLET NEEDED ORALLY THREE TIMES A DAY NOT-TAKING FUROSEMIDE 20 MG TABLET 1 TABLET ORALLY ONCE A DAY NOT-TAKING MAY USE - - CBD OIL0(OTC) 2 GTTS ORALLY PT TAKES ON HER OWN NEEDED NOT-TAKING BELBUCA 150 MCG FILM 1 FILM TO THE GUM BUCALLY ONCE A DAY NOT-TAKING ROBAXIN 500 MG TABLET 1.5 TABLETS ORALLY EVERY 4 HRS NOT-TAKING PAROXETINE HCL 30 MG TABLET 1 TABLET IN THE MORNING ORALLY ONCE A DAY MEDICATION LIST REVIEWED AND RECONCILED WITH THE PATIENT PAST MEDICAL HISTORY FIBROMYALGIA DX 4 YEARS AGO, BEING FOLLOWED AT PAIN CLINIC MIGRAINE HEADACHE STRESS INCONTINENCE DEPRESSION HYPERLIPIDEMIA VITAMIN D DEFICIENCY AFIB GERD INTERMITTENT A FIB STRESS INCONTINENCE, FEMALE CHRONIC PAIN SYNDROME UNSPECIFIED VITAMIN D DEFICIENCY MIGRAINE, UNSPECIFIED WITHOUT MENTION OF INTRACTABLE MIGRAINE WITHOUT MENTION OF STATUS MIGRAINOSUS HYPERTENSION CONGESTIVE HEART FAILURE PER ED DOC-07/09/2019- PT STATES SHE HAS SEEN DR CASTILLO SINCE AND IS CLEARED FROM THAT CHF EPISODE UNSTEADY GAIT LOW BACK PAIN ALLERGIES ZIPSOR: SWELLING,HIVES - ALLERGY FLEXERIL: AGGITATION - ALLERGY LYRICA: ANAPHYLAXIS - ALLERGY DICLOFENAC POTASSIUM: AGGITATION (ZIPSOR) - ALLERGY BACTRIM: NAUSEA/VOMITING - ALLERGY CYMBALTA: NAUSEA/VOMITING - SIDE EFFECTS AMITRIPTYLINE: AGGITATION - SIDE EFFECTS GABAPENTIN: HALLUCINATIONS - SIDE EFFECTS TIZANIDINE HCL: HIVES - ALLERGY KETOROLAC TROMETHAMINE: STOMACH PAIN - ALLERGY VITAL SIGNS WT 266.2 LBS, HT 61 IN, BMI 50.29 INDEX, BP 142/74 MM HG, HR 66 /MIN, RR 18 /MIN, TEMP 96.0 F, OXYGEN SAT % 99%, SAFE IN ENV? (Y/N) YES, NA INITIALS AW 0852 REVIEWED. Heather LOPEZ RN. EXAMINATION GENERAL EXAMINATION: THE PATIENT IS ALERT, ORIENTED TIMES THREE AND COOPERATIVE. LUNGS ARE CLEAR TO AUSCULTATION. HEART SHOWS REGULAR RHYTHM, NO MURMURS AND NO GALLOPS. ASSESSMENTS INTERVERTEBRAL DISC DISORDERS WITH RADICULOPATHY, LUMBAR REGION - M51.16 (PRIMARY) TREATMENT INTERVERTEBRAL DISC DISORDERS WITH RADICULOPATHY, LUMBAR REGION [facility] FLUORO GUIDE SPINE INJECTION (PAIN)[id number] MEDICATION: VALIUM TAB 10MG ORALLY (DIAZEPAM)DEANNEROXY ARAUZ 04/23/2020 9:07:22 AM > VERIFIED TRISHA LOPEZ RN 04/23/2020 9:14:45 AM > ADMINISTERED AT 0911. MEDICATION: OXYCODONE HCL TAB 10MG ORALLYROXY ALICEA 04/23/2020 9:07:35 AM > VERIFIED TRISHA LOPEZ RN 04/23/2020 9:15:56 AM > ADMINISTERED AT 0911. IV LACTATED RINGER'S WIDE OPENHEBER HARRIS 04/23/2020 08:48:30 AM - GIVE 500 ML BEFORE GOING INTO THE ROOM ROXY ALICEA 04/23/2020 9:06:09 AM > #22 SL STARTED X 1 ATTEMPT IN RIGHT FA BY THIS FACILITIES MANAGER. SITE ASYMPTOMATIC, PATIENT TOLERATED WELL. LR INFUSIONG WIDE OPEN PER ORDER WITHOUT DIFFICULTY . TRISHA LOPEZ RN 04/23/2020 11:21:01 AM > TOTAL VOLUME INFUSED 750 ML. OTHERS CLINICAL NOTES: PAT COMPLETED . PT IS A DIFFICULT IV START AND NEEDS 500 CC PRIOR TO GOING TO THE ROOM. PROCEDURES PAIN NURSING RECORD PROCEDURE IN ROOM 1000, PHYSICIAN IN ROOM 1020, START 1025, FINISH 1032, PHYSICIAN OUT OF ROOM 1034, OUT OF ROOM 1037, ECG NORMAL SINUS, PATIENT SHIELDED YES, SAFETY STRAP YES, PREP BETADINE Berna HAQ RN, DRESSING TEGADERM DR. MILLER LOC: 1001 1. ALERT, ORIENTED 1040 LOC REMAINED AT BASELINE THROUGHOUT THE PROCEDURE RESP: 1001 1. REGULAR, NO DYSPNEA, 1009 1. REGULAR, NO DYSPNEA, 1024 1. REGULAR, NO DYSPNEA, 1025 1. REGULAR, NO DYSPNEA, 1035 1. REGULAR, NO DYSPNEA, 1040, 1. REGULAR, NO DYSPNEA COLOR: 1001 1. PINK, 1009 1. PINK, 1024 1. PINK, 1025 1. PINK, 1035 1. PINK, 1040 1. PINK SKIN: 1001 1. WARM, DRY, 1009 1. WARM, DRY, 1024 1. WARM, DRY, 1025 1. WARM, DRY, 1035 1. WARM, DRY, 1040 1. WARM, DRY POSITION: 1001 1. PRONE, 1009 1. PRONE, 1024 1. PRONE, 1025 1. PRONE, 1035 1. PRONE 1040 5. SITTING VITALS: 1001 72-16 144/67 99% 1009 62-16 146/84 98% 1024 69-16 99% 1025 65-16 136/79 100% 1035 65-16 136/79 99% 1040 65-18 127/96 98% NOTES INSTRUCTED AT 0912 REGARDING POTENTIAL FOR DIZZINESS AND/OR SLEEPINESS AFTER PREPROCEDURE PO MEDS. SIDE RAILS UP. CALL ANAYA IN REACH. INSTRUCTED TO CALL IF NEEDS TO GET OOB. 1035 NAUSEA REPORTED POST PROCEDURE. PT STATED RESOLVED AFTER JUICE AND CRACKERS. Heather LOPEZ RN COMPLETION OF PROCEDURE APPOINTMENT: POST PAIN 2, DRESSING SITE DRY AND INTACT, IV DISCONTINUED, SITE CLEAR, CATHETER INTACT, GAIT STEADY, TEACHING COMPLETED, PATIENT ACKNOWLEDGES UNDERSTANDING YES, PROCEDURE APPOINTMENT COMPLETED AT 1103 PRE PROCEDURE DIAGNOSIS LUMBAR DISC DISORDER WITH RADICULOPATHY POST PROCEDURE DIAGNOSIS LUMBAR DISC DISORDER WITH RADICULOPATHY PROCEDURE LUMBAR EPIDURAL STEROID INJECTION UNDER FLUOROSCOPIC GUIDANCE SURGEON DR. ARELIS MILLER CHIEF PILOT NONE ANESTHESIA LOCAL PRE PROCEDURE NOTE THE PATIENT HAS A HISTORY OF CHRONIC LOW BACK PAIN. I EVALUATED THE PATIENT AND REVIEWED THE CHART. I WENT OVER THE RISKS, ALTERNATIVES, AND BENEFITS ASSOCIATED WITH THIS PROCEDURE. THE PATIENT WOULD LIKE TO PROCEED AND GIVE CONSENT TO PERFORMED THE PROCEDURE. THE PATIENT DENIES UNEXPLAINABLE WEIGHT LOSS, FEVER, CHILLS, OR NEW CHANGES IN URINARY OR BOWEL CONTROL. THE PATIENT IS COVID-19 NEGATIVE DESCRIPTION OF PROCEDURE THE PATIENT WAS BROUGHT TO THE PROCEDURE ROOM AND PLACED IN THE PRONE POSITION. THE LUMBOSACRAL AREA WAS CLEANED WITH BETADINE SOLUTION AND DRAPED ASEPTICALLY. THE PROCEDURE WAS DONE UNDER STERILE CONDITIONS. A TIMEOUT WAS PERFORMED WHERE THE CONSENTED SITE WAS VERIFIED WITH EVERYONE IN THE ROOM. UNDER FLUOROSCOPIC GUIDANCE, THE TARGET POINT WAS SELECTED AT THE INTERLAMINAR LEVEL OF L4-L5. I CONFIRMED AGAIN THE SITE OF THE TARGET. LIDOCAINE WAS USED TO NUMB THE SKIN AND THE SUBCUTANEOUS TISSUE BELOW IT. EPIDURAL TUOHY NEEDLE, 17-GAUGE, WAS ADVANCED UNDER FLUOROSCOPIC GUIDANCE AND FOLLOWING PATIENT FEEDBACK UNTIL THE EPIDURAL SPACE WAS REACHED 11 CM DEEP INTO THE SKIN BY THE LOSS OF RESISTANCE TECHNIQUE. ISOVUE-M DYE 30%, 0.25 ML, WAS INJECTED SHOWING ADEQUATE SPREAD OF THE DYE. THEN, A SOLUTION OF 3 ML OF NORMAL SALINE WITH DEPO-MEDROL 40 MG WAS INJECTED SLOWLY FOLLOWING PATIENT FEEDBACK. THE MEDICATIONS WERE VERIFIED WITH THE NURSE. THERE WAS NO EVIDENCE OF BLOOD, PARESTHESIA OR CEREBROSPINAL FLUID DURING THE PROCEDURE. THE PATIENT WAS SENT TO THE RECOVERY ROOM. THE PATIENT WAS MOVING THE EXTREMITIES AND DOING WELL. THERE WERE NO COMPLICATIONS DURING THE PROCEDURE. ESTIMATED BLOOD LOSS WAS LESS THAN 5 ML. FLUOROSCOPY TIME WAS 18 SECONDS POST PROCEDURE NOTE THE PATIENT WILL BE SEEN IN A FOLLOW UP IN THE NEXT FEW WEEKS. I AM LOOKING FOR LONG LASTING RELIEF FOR THE PATIENT WITH THIS INTERVENTION. INSTRUCTIONS WERE GIVEN, QUESTIONS WERE ANSWERED, AND THE PATIENT EXPRESSED UNDERSTANDING AND AGREES WITH THE PLAN. I, HEBER HARRIS, DOCUMENTED THE ABOVE INFORMATION ACTING A SCRIBE FOR DR. MILLER. I HAVE REVIEWED THE ABOVE DOCUMENT, WRITTEN BY HEBER HARRIS, WELFARE ELIGIBILITY INTERVIEWER, AND I VERIFY THAT IT IS ACCURATE PROCEDURE CODES 39745 LUMBAR/SACRAL W/ IMAGING DISPOSITION & COMMUNICATION FOLLOW UP FOLLOW UP WITH NOC TECHNICIAN (REASON: POST LUMBAR EPIDURAL STEROID INJECTION) ELECTRONICALLY SIGNED BY ARELIS MILLER MD, MD ON 04/23/2020 AT 04:07 PM EST DISCLAIMER : THIS IS A VISIT SUMMARY EXTRACTED FROM THE [employer] CHART. IT IS NOT A COPY OF THE [employer] PROGRESS NOTE. MTDD
== END ==
LOC: M PAIN 08:30
PROVIDERS: ATTEND Anesthesiology
DX: M51.16 Intervertebral disc disorders with radiculopathy, lumbar region (principal); M79.7 Fibromyalgia; G43.909 Migraine, unspecified, not intractable, without status migrainosus; F32.9 Major depressive disorder, single episode, unspecified; E78.5 Hyperlipidemia, unspecified; E55.9 Vitamin D deficiency, unspecified; I48.91 Unspecified atrial fibrillation; K21.9 Gastro-esophageal reflux disease without esophagitis; G89.4 Chronic pain syndrome; R26.81 Unsteadiness on feet; N39.3 Stress incontinence (female) (male); Z79.01 Long term (current) use of anticoagulants; Z79.899 Other long term (current) drug therapy; Z88.2 Allergy status to sulfonamides; Z88.8 Allergy status to other drugs, medicaments and biological substances
CPT/HCPCS: 62323; J1030; Q9967

== ENCOUNTER → 2020-05-20 | Outpatient (CLI) | payer OTHER, MEDICAID ==
[~2020-05-20] MED LIST changes: -AMIT10TA PO; +AMIT10TA7 PO; -ISOVUE-M 300 61% 15ML VIAL As Ordered ONE; -LIDOCAINE 1% SDV 30ML VIAL As Ordered ONE; -diazePAM 5MG TABLET As Ordered ONE; -methylPREDNISolone SUSP 40MG/ML 1ML VIAL (DEPO MEDROL) As Ordered ONE; -oxyCODONE 5MG TAB As Ordered ONE
--- NOTE | 2020-05-22 04:24 | ECWPNPC ---
PATIENT NAME: SMITH VIVEROS : 1965 GENDER: FEMALE VISIT DATE: 05/20/2020 DISCHARGE DATE: 05/20/20 1501 VISIT LOCKED DATE TIME: PHYSICIAN: ANISA LOCO RESOURCE: ANISA LOCO REASON FOR APPOINTMENT 1. POST LUMBAR EPIDURAL STEROID INJECTION HISTORY OF PRESENT ILLNESS DEPRESSION SCREENING: PHQ-2 (2015 EDITION) LITTLE INTEREST OR PLEASURE IN DOING THINGS?NOT AT ALL FEELING DOWN, DEPRESSED, OR HOPELESS?NOT AT ALL TOTAL SCORE0 55-YEAR-OLD FEMALE IN FOR POST LUMBAR EPIDURAL STEROID INJECTION FOLLOW-UP. PATIENT FEELS THE PROCEDURE WAS SUCCESSFUL OVERALL RATING HER PAIN PREPROCEDURE AT A 10 OUT OF 10 AND POSTPROCEDURE AT 2-6 OUT OF 10. SHE FURTHER STATES PROCEDURE CONTINUES TO HELP HER TODAY. GENERAL: -. FALL RISK SCREENING: SCREENING : NO FALLS REPORTED IN THE LAST YEAR. PAIN SCREENING: PATIENT HAS A COMPLAINT OF ACUTE OR CHRONIC PAIN :YES LOCATION OF PAIN:LOW BACK INTENSITY OF PAIN (SCALE OF 1 TO 10):6 WHAT DOES YOUR PAIN FEEL LIKE:ACHING DURATION:CONTINOUS, CONSTANT, ALL DAY PAIN IS INCREASED BY:ACTIVITIES PAIN IS DECREASED BY:USE OF PAIN MEDICATIONS NURSING NOTE: -HAD A FALL AND WENT TO THE ER WASNT SURE OF THE DATE. PAIN CENTER INTAKE QUESTIONS: DO YOU HAVE A HISTORY OF MRSA? :YES 7 MONTHS AGO DO YOU TAKE A BLOOD THINNERS? :YES DO YOU HAVE ANY BLEEDING DISORDERS? :NO ANY NEW NUMBNESS OR WEAKNESS IN YOUR LEGS OR ARMS? :NO ANY PACEMAKER,DEFIBRILLATOR, OR DORSAL COLUMN STIMULATOR? :NO LOOP RECOREDER DO YOU HAVE ANY RASHES OR OPEN SORES? :NO ARE YOU ALLERGIC TO IV DYE? :NO ARE YOU DIABETIC? :NO ANY NEW PROBLEMS WITH YOUR MEDICATIONS? :NO HAVE YOU RECEIVED A VACCINE IN THE PAST 30 DAYS? :YES IF SO WHAT VACCINE AND WHEN? 1ST COVID 05/20/2020 DO YOU PLAN TO RECEIVE A VACCINE IN THE NEXT 21 DAYS? :NO 2ND COVID 06/14/2020 DO YOU NEED ANY PRESCRIPTION? :NO DO YOU TAKE ANY IMMUNOSUPPRESSIVE MEDICATIONS? :NO DO YOU HAVE ANY KIDNEY OR LIVER DISEASE? :NO IS THERE A CHANCE YOU COULD BE ? :NO ARE YOU BREAST FEEDING? :NO CURRENT MEDICATIONS TAKING NITROGLYCERIN 0.4 MG TABLET SUBLINGUAL DIRECTED SUBLINGUAL EVERY 5 MIN: MDD 3 TABLETS TAKING SUCRALFATE 1 GM TABLET 1 TABLET ORALLY TWICE A DAY TAKING PROTONIX 40 MG TABLET DELAYED RELEASE 1 TABLET ORALLY BID TAKING METOPROLOL SUCCINATE 100 MG CAPSULE ER 24 HOUR SPRINKLE 1 CAPSULE ORALLY ONCE A DAY TAKING ELIQUIS 5 MG TABLET 1 TAB(S) ORALLY TWICE DAILY TAKING BUTRANS 20 MCG/HR PATCH WEEKLY 1 PATCH TO SKIN TRANSDERMAL 1 PATCH Q7 DAYS=MDD NOT-TAKING BELBUCA 75 MCG FILM 1 FILM TO THE GUM BUCALLY FOR PAIN ONCE A DAY NOT-TAKING SKELAXIN 800 MG TABLET 1 TABLET ORALLY THREE TIMES DAILY NEEDED NOT-TAKING CARISOPRODOL 350 MG TABLET 1 TABLET NEEDED ORALLY DAILY NOT-TAKING METAXALONE 800 MG TABLET 1 TABLET ORALLY NEEDED FOR SPASMS AND PAIN THREE TIMES A DAY MDD3 NOT-TAKING BACLOFEN 5 MG TABLET 1 TABLET WITH FOOD OR MILK ORALLY THREE TIMES A DAY NOT-TAKING TIZANIDINE HCL 2 MG TABLET 1 TABLET NEEDED ORALLY THREE TIMES A DAY NOT-TAKING FUROSEMIDE 20 MG TABLET 1 TABLET ORALLY ONCE A DAY NOT-TAKING MAY USE - - CBD OIL0(OTC) 2 GTTS ORALLY PT TAKES ON HER OWN NEEDED NOT-TAKING BELBUCA 150 MCG FILM 1 FILM TO THE GUM BUCALLY ONCE A DAY NOT-TAKING ROBAXIN 500 MG TABLET 1.5 TABLETS ORALLY EVERY 4 HRS NOT-TAKING PAROXETINE HCL 30 MG TABLET 1 TABLET IN THE MORNING ORALLY ONCE A DAY MEDICATION LIST REVIEWED AND RECONCILED WITH THE PATIENT PAST MEDICAL HISTORY FIBROMYALGIA DX 4 YEARS AGO, BEING FOLLOWED AT PAIN CLINIC MIGRAINE HEADACHE STRESS INCONTINENCE DEPRESSION HYPERLIPIDEMIA VITAMIN D DEFICIENCY AFIB GERD INTERMITTENT A FIB STRESS INCONTINENCE, FEMALE CHRONIC PAIN SYNDROME UNSPECIFIED VITAMIN D DEFICIENCY MIGRAINE, UNSPECIFIED WITHOUT MENTION OF INTRACTABLE MIGRAINE WITHOUT MENTION OF STATUS MIGRAINOSUS HYPERTENSION CONGESTIVE HEART FAILURE PER ED DOC-07/09/2019- PT STATES SHE HAS SEEN DR CASTILLO SINCE AND IS CLEARED FROM THAT CHF EPISODE UNSTEADY GAIT LOW BACK PAIN ALLERGIES ZIPSOR: SWELLING,HIVES - ALLERGY FLEXERIL: AGGITATION - ALLERGY LYRICA: ANAPHYLAXIS - ALLERGY DICLOFENAC POTASSIUM: AGGITATION (ZIPSOR) - ALLERGY BACTRIM: NAUSEA/VOMITING - ALLERGY CYMBALTA: NAUSEA/VOMITING - SIDE EFFECTS AMITRIPTYLINE: AGGITATION - SIDE EFFECTS GABAPENTIN: HALLUCINATIONS - SIDE EFFECTS TIZANIDINE HCL: HIVES - ALLERGY KETOROLAC TROMETHAMINE: STOMACH PAIN - ALLERGY SOCIAL HISTORY GENERAL: TOBACCO USE ARE YOU A:FORMER SMOKER HOW LONG HAS IT BEEN SINCE YOU LAST SMOKED?5-10 YEARS VAPORNO E-CIGARETTEYES LATEX QUESTIONNAIRE LATEX ALLERGY : HAVE YOU EVER DEVELOPED ANY TYPE OF REACTION AFTER HANDLING LATEX PRODUCTS SUCH RUBBER GLOVES, CONDOMS, DIAPHRAGMS, BALLOONS, SOCKS, OR UNDERWEAR?NO LATEX ALLERGY : HAVE YOU EVER DEVELOPED ANY TYPE OF REACTION DURING OR AFTER DENTAL APPOINTMENT, VAGINAL/RECTAL EXAMINATION, SURGICAL PROCEDURE, OR ANY OTHER EXPOSURE?NO LATEX RISK : HAVE YOU EVER HAD ANY DIFFICULTY BREATHING OR HIVES AFTER EATING OR HANDLING ANY FRUITS, OR VEGETABLES; SUCH KIWI, BANANAS, STONE FRUITS, OR CHESTNUTSNO LATEX RISK : DO YOU HAVE A PREVIOUS PERSONAL HISTORY OF MORE THAN NINE SURGERIES, SPINA BIFIDA, OR REPEATED CATHERIZATIONS? YES - PLEASE INDICATE : > 9 SURGERIES LATEX RISK : ARE YOU FREQUENTLY EXPOSED TO LATEX PRODUCTS IN YOUR OCCUPATION?NO DATE ASKED : 05/20/2020 ALCOHOL USE: NO. BMI CARE GOAL FOLLOW-UP ABOVE NORMAL BMI FOLLOW-UPLIFESTYLE EDUCATION REGARDING DIET ALCOHOL SCREENING DID YOU HAVE A DRINK CONTAINING ALCOHOL IN THE PAST YEAR?NO POINTS0 INTERPRETATIONNEGATIVE RECREATIONAL DRUG USE DRUG USE?NO CAFFEINE CAFFEINE USE?YES SEXUAL HX HAD SEX IN THE LAST 12 MONTHS (VAGINAL, ORAL, OR ANAL)?NO HAVE YOU EVER HAD AN STD?NO HIV / HEP-C SCREENING HIV TEST OFFERED TO PATIENT:YES DATE OFFERED:10/26/2017 TEST ACCEPTED:NO HEP-C TEST OFFERED TO PATIENT:NO REASON:PATIENT DECLINED BROCHURE PROVIDED TO PATIENTNO ANGLICAN NO LATTER-DAY BELIEFS THAT WOULD IMPACT HEALTH CARE. 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 LEARNING BARRIERS / SPECIAL NEEDS CHANGE FROM LAST VISIT?YES BARRIERS TO LEARNING?NO HEARING IMPAIRED?NO VISION IMPAIRED?YES :CORRECTIVE LENSES COGNITIVELY IMPAIRED?NO READINESS TO LEARN?YES LEARNING PREFERENCES?NO LEARNING CAPABILITIES PRESENT?YES EMOTIONAL BARRIERS?YES ANXIETY SPECIAL DEVICES?YES :WALKER NEEDED COMBUSTION ENGINEER NEEDED?NO DOMESTIC VIOLENCE DO YOU FEEL SAFE IN YOUR ENVIRONMENT?YES OCCUPATION: UNEMPLOYED. DIET: REGULAR. EXERCISE: NO REGULAR EXERCISE. MARITAL STATUS: .. OTHERS AT HOME: [id number], BROTHER, NEPHEW AND BOYFRIEND. - PFS REFERRAL NEEDED?NO CLERGY REFERRAL NEEDED?NO PUBLIC HEALTH REFERRAL NEEDED?NO HAS THE PATIENT BEEN EDUCATED REGARDING HIS/HER PLAN OF CARE?YES HAS THE PATIENT BEEN EDUCATED REGARDING PAIN, THE RISK FOR PAIN, THE IMPORTANCE OF EFFECTIVE PAIN MANAGEMENT, AND THE PAIN ASSESSMENT PROCESS?YES ADVANCE DIRECTIVE ADVANCE DIRECTIVE DISCUSSED WITH PATIENT:YES 02/02/2020 PT HAS NO ADVANCED DIRECTIVES, DECLINES HCP INFORMATION AND ASSISTANCE WITH FORM AT THIS TIME. REVIEW OF SYSTEMS CONSTITUTIONAL: ANY RECENT FEVER NO . CHILLS NO . WEIGHT CHANGE OF UNKNOWN REASONS NO . GASTROENTEROLOGY: NEW UNEXPLAINABLE CHANGES IN BOWEL CONTROL NO . CONSTIPATION NO . GENITOURINARY: ANY NEW CHANGE IN BLADDER CONTROL? NO . NEUROLOGY: NEW ONSET DIZZINESS OR NEUROLOGICAL CHANGES NOT MENTIONED NO . NEW NUMBNESS OR PAIN PATTERNS NOT MENTIONED AND PERTINENT TO TODAY'S VISIT NO . CARDIOLOGY: NEW CHEST PRESSURE NO . PATIENT DENIES NO . RESPIRATORY: UNEXPLAINABLE COUGH NO . NEW SHORTNESS OF BREATH NO . VITAL SIGNS WT 269.2 LBS, HT 61 IN, BMI 50.86 INDEX, BP 134/90 MM HG, HR 102 /MIN, RR 18 /MIN, TEMP 96 F, OXYGEN SAT % 96%, SAFE IN ENV? (Y/N) YES, NA INITIALS SC 14:25T.BRANDAN AMARAL. EXAMINATION GENERAL EXAMINATION: GENERALNO ACUTE DISTRESS, WELL NOURISHED AND HYDRATED. PSYCHAPPROPRIATE MOOD AND AFFECT . LUNGS:CLEAR TO AUSCULTATION BILATERALLY, NO WHEEZES, RHONCHI, RALES. HEART:NO MURMURS, REGULAR RATE AND RHYTHM. ASSESSMENTS OTHER CHRONIC PAIN - G89.29 (PRIMARY) CHRONIC PRESCRIPTION OPIATE USE - Z79.891 TREATMENT OTHER CHRONIC PAIN PAIN PROCEDURE LOGDATE OF PROCEDURE1PROCEDURE:LUMBAR EPIDURAL STEROID INJECTIONAMOUNT OF PRE SEDATEVALIUM 10MG, OXYCODONE 10MGRESULT:PRE 12/19 POST 2-08/19 NOTES: 55-YEAR-OLD FEMALE IN FOR POST LUMBAR DURAL STEROID INJECTION FOLLOW-UP. GIVEN PRESENTING SYMPTOMS RECOMMEND FOLLOW-UP IN 2 MONTHS. PATIENT HAS EXPRESSED UNDERSTANDING OF AND WAS IN AGREEMENT WITH TREATMENT PLAN. GIVEN TIME TO ASK QUESTIONS AND EXPRESS CONCERNS. , ISTOP REGISTRY REVIEWED AND DEMONSTRATES COMPLLIANCE. (REF # [id number] ) BRINGS IN MEDICATIONS WHICH IS APPROPRIATE FOR WHAT WAS DISPENSED. RECENT URINE TOXICOLOGY REVIEWED. NO UNAUTHORIZED MEDICATIONS. NO ILLICIT SUBSTANCES AND PRESCRIBED MEDICATIONS WERE PRESENT. CHRONIC PRESCRIPTION OPIATE USE LAB: URINE TEST GROUP [facility] 05/20/2020 2:57:55 PM > LAST DOSE: BUTRANS 20MCG TD PATCH 05/19/20 DISPOSITION & COMMUNICATION FOLLOW UP 2 MONTHS (REASON: LOW BACK PAIN) ELECTRONICALLY SIGNED BY TRA ACOSTA ON 05/21/2020 AT 01:26 PM EST DISCLAIMER : THIS IS A VISIT SUMMARY EXTRACTED FROM THE [employer] CHART. IT IS NOT A COPY OF THE [employer] PROGRESS NOTE. RITA
== END ==
LOC: M PAIN 14:45
PROVIDERS: ATTEND Family Medicine
DX: G89.29 Other chronic pain (principal); M79.7 Fibromyalgia; G43.909 Migraine, unspecified, not intractable, without status migrainosus; N39.3 Stress incontinence (female) (male); F32.9 Major depressive disorder, single episode, unspecified; E78.5 Hyperlipidemia, unspecified; E55.9 Vitamin D deficiency, unspecified; I48.91 Unspecified atrial fibrillation; K21.9 Gastro-esophageal reflux disease without esophagitis; Z87.891 Personal history of nicotine dependence; Z79.01 Long term (current) use of anticoagulants; Z79.899 Other long term (current) drug therapy; Z79.891 Long term (current) use of opiate analgesic; Z88.8 Allergy status to other drugs, medicaments and biological substances

== ENCOUNTER 2020-06-02 14:18 | Emergency (ER) | payer OTHER, MEDICAID ==
[2020-06-02] MEDS ORDERED: METOPROLOL 5 MG/5 ML VIAL As Ordered ONE ×4 (14:48→16:33)
[2020-06-02] MEDS ORDERED: METOPROLOL 5 MG/5 ML VIAL IV PRN ×2 (14:50→16:05)
[2020-06-02] MEDS ORDERED: METOPROLOL TART 50 MG TAB PO ONE (16:05)
--- NOTE | 2020-06-02 16:41 | REP ---
INDICATION: SOB, CHEST PAIN, AFIB RVR. COMPARISON: 01/30/2020. TECHNIQUE: Portable AP chest with the patient upright. FINDINGS: The lung thomason are clear. Cardiac size is normal. The gerardo, mediastinum and skeletal structures are unremarkable. A loop recorder is incidentally noted, unchanged. IMPRESSION: Essentially negative portable chest <Electronically signed by Jose Castillo > 06/02/20 0038
[2020-06-02 17:28] LABS: BLOOD UREA NITROGEN 10 MG/DL (7-18); CALCIUM LEVEL 9.3 MG/DL (8.5-10.1); CARBON DIOXIDE LEVEL 33 MEQ/L (21-32); CHLORIDE LEVEL 109 MEQ/L (98-107); CK-MB VALUE MASS < 1.0 NG/ML (<3.6); CPK CREATINE PHOSPHOKINASE 113 U/L (26-192); CREATININE FOR GFR 1.12 MG/DL (0.55-1.30); GLOMERULAR FILTRATION RATE 53.8 (>51); GLUCOSE, FASTING 115 MG/DL (70-100); INR 0.89; MB/CK RELATIVE INDEX 0.88 (< OR =4); PARTIAL THROMBOPLASTIN TIME 26.8 SECONDS (24.2-38.5); POTASSIUM SERUM 4.2 MEQ/L (3.5-5.1); PROTHROMBIN TIME 12.3 SECONDS (12.5-14.3); SODIUM LEVEL 145 MEQ/L (136-145); TROPONIN I < 0.02 NG/ML (< 0.10)
[2020-06-02 17:36] LABS: BASO % 0.2 % (0.0-1.0); EOS # 0.1 10^3/uL (0.0-0.5); HEMATOCRIT 45.6 % (36.0-47.0); LYMPH # 2.1 10^3/uL (1.5-5.0); MEAN CORPUSCULAR HEMOGLOBIN 30.5 pg (27.0-33.0); MEAN CORPUSCULAR HGB CONC 32.9 g/dl (32.0-36.5); MEAN CORPUSCULAR VOLUME 92.7 fl (80.0-96.0); MONO # 0.4 10^3/uL (0.0-0.8); MONO % 7.2 % (2.0-8.0); NEUTROPHILS # 3.5 10^3/uL (1.5-8.5); NEUTROPHILS % 57.3 % (36.0-66.0); PLATELET COUNT, AUTOMATED 208 10^3/uL (150-450); RED BLOOD COUNT 4.92 10^6/uL (4.00-5.40); WHITE BLOOD COUNT 6.1 10^3/uL (4.0-10.0)
[2020-06-02] MEDS ORDERED: APIXABAN 5 MG TAB (ELIQUIS) PO ONE (18:35)
[2020-06-02] MEDS ORDERED: ELIQ5TAB PO (18:39)
--- NOTE | 2020-06-03 09:30 | ECGEPIP ---
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
== END 2020-06-02 19:21 | disposition home or self-care (01) ==
LOC: M ED 14:18
DX: I48.0 Paroxysmal atrial fibrillation (principal); I11.0 Hypertensive heart disease with heart failure; Z88.1 Allergy status to other antibiotic agents; Z88.8 Allergy status to other drugs, medicaments and biological substances

== ENCOUNTER 2020-06-16 09:04 | Emergency (ER) | payer MEDICAID, OTHER ==
[~2020-06-16] VITALS: Ht 157.5 cm; Wt 98.2 kg
[~2020-06-16 09:04] MED LIST changes: -SIME180C PO; +SIME180C25 PO
[2020-06-16 10:13] LABS: BASO % 0.8 % (0.0-1.0); EOS # 0.1 10^3/uL (0.0-0.5); EOS % 2.3 % (0.0-3.0); HEMOGLOBIN 14.3 g/dl (12.0-15.5); LYMPH # 0.7 10^3/uL (1.5-5.0); LYMPH % 19.1 % (24.0-44.0); MEAN CORPUSCULAR HEMOGLOBIN 30.1 pg (27.0-33.0); MEAN CORPUSCULAR HGB CONC 32.5 g/dl (32.0-36.5); MEAN CORPUSCULAR VOLUME 92.6 fl (80.0-96.0); MONO # 0.5 10^3/uL (0.0-0.8); MONO % 11.6 % (2.0-8.0); NEUTROPHILS # 2.6 10^3/uL (1.5-8.5); NEUTROPHILS % 65.7 % (36.0-66.0); PLATELET COUNT, AUTOMATED 157 10^3/uL (150-450); RED BLOOD COUNT 4.75 10^6/uL (4.00-5.40); WHITE BLOOD COUNT 3.9 10^3/uL (4.0-10.0)
[2020-06-16 10:50] LABS: ALBUMIN 3.2 GM/DL (3.2-5.2); ALT/SGPT 32 U/L (12-78); AMYLASE 28 U/L (25-115); BILIRUBIN,DIRECT 0.1 MG/DL (0.0-0.2); BILIRUBIN,TOTAL 0.4 MG/DL (0.2-1.0); BLOOD UREA NITROGEN 11 MG/DL (7-18); CALCIUM LEVEL 8.9 MG/DL (8.5-10.1); CARBON DIOXIDE LEVEL 30 MEQ/L (21-32); CHLORIDE LEVEL 106 MEQ/L (98-107); CK-MB VALUE MASS < 1.0 NG/ML (<3.6); CPK CREATINE PHOSPHOKINASE 59 U/L (26-192); CREATININE FOR GFR 0.88 MG/DL (0.55-1.30); GLOMERULAR FILTRATION RATE > 60.0 (>51); GLUCOSE, FASTING 97 MG/DL (70-100); LIPASE 96 U/L (73-393); MB/CK RELATIVE INDEX 1.69 (< OR =4); POTASSIUM SERUM 3.7 MEQ/L (3.5-5.1); SODIUM LEVEL 140 MEQ/L (136-145); TOTAL PROTEIN 6.2 GM/DL (6.4-8.2); TROPONIN I < 0.02 NG/ML (< 0.10)
[2020-06-16] MEDS ORDERED: NS 1,000 ML IV ONE (11:30)
[2020-06-16] MEDS ORDERED: ONDANSETRON 4MG/2ML VIAL IV ONE (11:30)
[2020-06-16] MEDS ORDERED: MORPHINE 2 MG/ML 1ML VIAL (J2270) IV ONE (11:30)
[2020-06-16] MEDS ORDERED: ISOVUE-370 76% 100ML VIAL As Ordered ONE (11:55)
--- NOTE | 2020-06-16 12:29 | REP ---
INDICATION: chest pain. COMPARISON: Chest CT with IV contrast dated 02/26/2019. TECHNIQUE: Chest CT with IV contrast, CT angiography. FINDINGS: There are no emboli in the pulmonary trunk or central pulmonary arteries. There are no emboli in the pulmonary artery lobar segment branches. There are no infiltrates. There are no pleural effusions. There are no masses or nodules. There is a calcified granuloma in the right upper lobe, left upper lobe, and left lower lobe, unchanged. The thoracic aorta is unremarkable. Cardiac size is normal. There is no pericardial effusion. The visualized upper abdominal contents are unremarkable except for surgical clips in the gallbladder fossa. IMPRESSION: There are no pulmonary emboli. There are no infiltrates or effusions. There are no masses or nodules except for 3 calcified granulomas, unchanged. Loop recorder is incidentally identified in the anterior chest wall, also unchanged. Cholecystectomy. <Electronically signed by Jose Castillo > 06/16/20 [id number]
--- NOTE | 2020-06-16 12:41 | REP ---
INDICATION: abdl pain. COMPARISON: Abdomen pelvis CT dated 12/17/2019. TECHNIQUE: Abdomen pelvis CT with IV contrast, without bowel contrast. FINDINGS: Patient has history of cholecystectomy and hysterectomy. The hepatic parenchyma is homogeneous. There are surgical clips in the gallbladder fossa. The pancreas and spleen are normal size and unremarkable. The adrenals are unremarkable. The kidneys are unremarkable. The abdominal aorta is unremarkable. There is no periaortic adenopathy or mass. There is wall thickening of the transverse colon, splenic flexure, descending colon and sigmoid colon. This is nonspecific but can represent inflammatory versus infectious colitis in the appropriate clinical setting. Pelvis: The appendix is unremarkable. The vaginal cuff and adnexa are unremarkable and unchanged. The bladder is unremarkable. There is no pelvic adenopathy or ascites. IMPRESSION: There is wall thickening of the transverse colon, splenic flexure and descending colon compatible with inflammatory versus infectious colitis in the appropriate clinical setting. <Electronically signed by Jose Castillo > 06/16/20 3036
--- NOTE | 2020-06-16 13:24 | ECGEPIP ---
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
[2020-06-16] MEDS ORDERED: [UNRECOGNIZED DRUG - CODE] TOP (15:12)
[2020-06-16 15:16] VITALS: BP 134/81
== END 2020-06-16 15:22 | disposition home or self-care (01) ==
LOC: M ED 09:04 → EDBD 09:04 → M ED 15:22
DX: R11.10 Vomiting, unspecified (principal); R19.7 Diarrhea, unspecified; T50.B95A Adverse effect of other viral vaccines, initial encounter; B36.9 Superficial mycosis, unspecified; I48.91 Unspecified atrial fibrillation; M79.7 Fibromyalgia; F32.9 Major depressive disorder, single episode, unspecified; Z95.818 Presence of other cardiac implants and grafts; Z79.01 Long term (current) use of anticoagulants; Z79.899 Other long term (current) drug therapy; Z88.0 Allergy status to penicillin; Z88.1 Allergy status to other antibiotic agents; Z88.8 Allergy status to other drugs, medicaments and biological substances; Z88.2 Allergy status to sulfonamides
CPT/HCPCS: 71275; 74177; 80048; 80076; 81001; 82150; 82550; 82553; 83605; 83690; 85025; 93005; 93041; 96361; 96374; 96375; 99285; J2270; J2405; Q9967

== ENCOUNTER → 2020-07-20 | Outpatient (CLI) | payer OTHER, MEDICAID ==
[~2020-07-20] MED LIST changes: +BUPR10DI3; +LASI20TA3 PO; +OMEP-221 PO; +[UNRECOGNIZED DRUG - CODE] TOP
--- NOTE | 2020-07-22 05:26 | ECWPNPC ---
PATIENT NAME: SMITH VIVEROS : 1965 GENDER: FEMALE VISIT DATE: 07/20/2020 DISCHARGE DATE: 07/20/20 0953 VISIT LOCKED DATE TIME: PHYSICIAN: ANISA LOCO RESOURCE: ANISA LOCO REASON FOR APPOINTMENT 1. LOW BACK PAIN HISTORY OF PRESENT ILLNESS GENERAL: -55-YEAR-OLD FEMALE IN FOR CHRONIC PAIN FOLLOW-UP. SHE RATES HER PAIN CURRENTLY AT A 10 OUT OF 10 AND DESCRIBES IT ACHING, BURNING, AND CONTINUOUS. SHE DOES ADMIT TO SHORTNESS OF BREATH RECENTLY AND INCREASED LOWER EXTREMITY EDEMA. SHE FURTHER STATES THAT SHE HAS STOPPED USE OF HER BUTRANS PATCH SHE DEVELOPED A RASH. FALL RISK SCREENING: SCREENING TWO FALLS REPORTED IN THE LAST YEAR WITHOUT INJURY. PAIN SCREENING: PATIENT HAS A COMPLAINT OF ACUTE OR CHRONIC PAIN :YES LOCATION OF PAIN:LOW BACK, RIGHT HIP INTENSITY OF PAIN (SCALE OF 1 TO 10):10 WHAT DOES YOUR PAIN FEEL LIKE:ACHING, BURNING, CONTINOUS, SHARP, STABBING, THROBBING, SORE, SHOOTING DURATION:CONTINOUS, AWAKENS FROM SLEEP PAIN IS INCREASED BY:ACTIVITIES, PROLONGED STANDING PROLONGED SITTING PAIN IS DECREASED BY:SITTING LAYING DOWN NURSING NOTE: -. PAIN CENTER INTAKE QUESTIONS: DO YOU HAVE A HISTORY OF MRSA? :YES 7 MONTHS AGO DO YOU TAKE A BLOOD THINNERS? :YES ELOQUIS DO YOU HAVE ANY BLEEDING DISORDERS? :NO ANY NEW NUMBNESS OR WEAKNESS IN YOUR LEGS OR ARMS? :NO ANY PACEMAKER,DEFIBRILLATOR, OR DORSAL COLUMN STIMULATOR? :NO LOOP RECORDER DO YOU HAVE ANY RASHES OR OPEN SORES? :YES ON CHEST FROM THE BUPRENORPHINE PATCH ARE YOU ALLERGIC TO IV DYE? :NO ARE YOU DIABETIC? :NO ANY NEW PROBLEMS WITH YOUR MEDICATIONS? :NO HAVE YOU RECEIVED A VACCINE IN THE PAST 30 DAYS? :NO DO YOU PLAN TO RECEIVE A VACCINE IN THE NEXT 21 DAYS? :NO 2ND COVID 06/14/2020 DO YOU NEED ANY PRESCRIPTION? :NO DO YOU TAKE ANY IMMUNOSUPPRESSIVE MEDICATIONS? :NO DO YOU HAVE ANY KIDNEY OR LIVER DISEASE? :NO IS THERE A CHANCE YOU COULD BE ? :NO ARE YOU BREAST FEEDING? :NO CURRENT MEDICATIONS TAKING NITROGLYCERIN 0.4 MG TABLET SUBLINGUAL DIRECTED SUBLINGUAL EVERY 5 MIN: MDD 3 TABLETS TAKING SUCRALFATE 1 GM TABLET 1 TABLET ORALLY TWICE A DAY TAKING PROTONIX 40 MG TABLET DELAYED RELEASE 1 TABLET ORALLY BID TAKING METOPROLOL SUCCINATE 100 MG CAPSULE ER 24 HOUR SPRINKLE 1 CAPSULE ORALLY ONCE A DAY TAKING ELIQUIS 5 MG TABLET 1 TAB(S) ORALLY TWICE DAILY TAKING BUTRANS 20 MCG/HR PATCH WEEKLY 1 PATCH TO SKIN TRANSDERMAL 1 PATCH Q7 DAYS=MDD NOT-TAKING BELBUCA 75 MCG FILM 1 FILM TO THE GUM BUCALLY FOR PAIN ONCE A DAY NOT-TAKING SKELAXIN 800 MG TABLET 1 TABLET ORALLY THREE TIMES DAILY NEEDED NOT-TAKING CARISOPRODOL 350 MG TABLET 1 TABLET NEEDED ORALLY DAILY NOT-TAKING METAXALONE 800 MG TABLET 1 TABLET ORALLY NEEDED FOR SPASMS AND PAIN THREE TIMES A DAY MDD3 NOT-TAKING BACLOFEN 5 MG TABLET 1 TABLET WITH FOOD OR MILK ORALLY THREE TIMES A DAY NOT-TAKING TIZANIDINE HCL 2 MG TABLET 1 TABLET NEEDED ORALLY THREE TIMES A DAY NOT-TAKING FUROSEMIDE 20 MG TABLET 1 TABLET ORALLY ONCE A DAY NOT-TAKING MAY USE - - CBD OIL0(OTC) 2 GTTS ORALLY PT TAKES ON HER OWN NEEDED NOT-TAKING BELBUCA 150 MCG FILM 1 FILM TO THE GUM BUCALLY ONCE A DAY NOT-TAKING ROBAXIN 500 MG TABLET 1.5 TABLETS ORALLY EVERY 4 HRS NOT-TAKING PAROXETINE HCL 30 MG TABLET 1 TABLET IN THE MORNING ORALLY ONCE A DAY MEDICATION LIST REVIEWED AND RECONCILED WITH THE PATIENT PAST MEDICAL HISTORY FIBROMYALGIA DX 4 YEARS AGO, BEING FOLLOWED AT PAIN CLINIC MIGRAINE HEADACHE STRESS INCONTINENCE DEPRESSION HYPERLIPIDEMIA VITAMIN D DEFICIENCY AFIB GERD INTERMITTENT A FIB STRESS INCONTINENCE, FEMALE CHRONIC PAIN SYNDROME UNSPECIFIED VITAMIN D DEFICIENCY MIGRAINE, UNSPECIFIED WITHOUT MENTION OF INTRACTABLE MIGRAINE WITHOUT MENTION OF STATUS MIGRAINOSUS HYPERTENSION CONGESTIVE HEART FAILURE PER ED DOC-07/09/2019- PT STATES SHE HAS SEEN DR CASTILLO SINCE AND IS CLEARED FROM THAT CHF EPISODE UNSTEADY GAIT LOW BACK PAIN ALLERGIES ZIPSOR: SWELLING,HIVES - ALLERGY FLEXERIL: AGGITATION - ALLERGY LYRICA: ANAPHYLAXIS - ALLERGY DICLOFENAC POTASSIUM: AGGITATION (ZIPSOR) - ALLERGY BACTRIM: NAUSEA/VOMITING - ALLERGY CYMBALTA: NAUSEA/VOMITING - SIDE EFFECTS AMITRIPTYLINE: AGGITATION - SIDE EFFECTS GABAPENTIN: HALLUCINATIONS - SIDE EFFECTS TIZANIDINE HCL: HIVES - ALLERGY KETOROLAC TROMETHAMINE: STOMACH PAIN - ALLERGY TAPE ADHESIVE: RASH - SIDE EFFECTS SURGICAL HISTORY TUBAL LIGATION 1987 DISTAL 4TH FINGER REPAIR SECONDARY TO TRAUMATIC INJURY BENIGN TUMOR REMOVAL RIGHT LEG DENTAL SURGERIES CHOLECYSTECTOMY 05/2014 HYSTERECTOMY STILL HAS 1 OVARY BUT NOT SURE WHICH ONE 2012 ABSCESS R GROIN 2014 LOOP RECORDER 10/2018 LEFT SHOULDER REPAIR 02/20/19 FAMILY HISTORY FATHER: , PNEUMONIA, CHF, NEUROPATHY, BLOOD CLOT, DIAGNOSED WITH UNSPECIFIED HEART DISEASE, DIABETES, UNSPECIFIED CEREBRAL ARTERY OCCLUSION WITH CEREBRAL INFARCTION MOTHER: , CANCER, HYPERTENSION, UNSPECIFIED HEART DISEASE, DIABETES, UNSPECIFIED CEREBRAL ARTERY OCCLUSION WITH CEREBRAL INFARCTION, OTHER MALIGNANT NEOPLASM OF UNSPECIFIED SITE SIBLINGS: ALIVE, LUPUS, DIABETES SON(S): ALIVE DAUGHTER(S): ALIVE 2 BROTHER(S) , 5 SISTER(S) . 1 SON(S) , 1 DAUGHTER(S) - HEALTHY. SOCIAL HISTORY GENERAL: TOBACCO USE ARE YOU A:FORMER SMOKER HOW LONG HAS IT BEEN SINCE YOU LAST SMOKED?5-10 YEARS VAPORNO E-CIGARETTEYES LATEX QUESTIONNAIRE LATEX ALLERGY : HAVE YOU EVER DEVELOPED ANY TYPE OF REACTION AFTER HANDLING LATEX PRODUCTS SUCH RUBBER GLOVES, CONDOMS, DIAPHRAGMS, BALLOONS, SOCKS, OR UNDERWEAR?NO LATEX ALLERGY : HAVE YOU EVER DEVELOPED ANY TYPE OF REACTION DURING OR AFTER DENTAL APPOINTMENT, VAGINAL/RECTAL EXAMINATION, SURGICAL PROCEDURE, OR ANY OTHER EXPOSURE?NO LATEX RISK : HAVE YOU EVER HAD ANY DIFFICULTY BREATHING OR HIVES AFTER EATING OR HANDLING ANY FRUITS, OR VEGETABLES; SUCH KIWI, BANANAS, STONE FRUITS, OR CHESTNUTSNO LATEX RISK : DO YOU HAVE A PREVIOUS PERSONAL HISTORY OF MORE THAN NINE SURGERIES, SPINA BIFIDA, OR REPEATED CATHERIZATIONS? YES - PLEASE INDICATE : > 9 SURGERIES LATEX RISK : ARE YOU FREQUENTLY EXPOSED TO LATEX PRODUCTS IN YOUR OCCUPATION?NO DATE ASKED : 07/20/2020 ALCOHOL USE: NO. BMI CARE GOAL FOLLOW-UP ABOVE NORMAL BMI [facility] DIET ALCOHOL SCREENING DID YOU HAVE A DRINK CONTAINING ALCOHOL IN THE PAST YEAR?NO POINTS0 INTERPRETATIONNEGATIVE RECREATIONAL DRUG USE DRUG USE?NO CAFFEINE CAFFEINE USE?YES SEXUAL HX HAD SEX IN THE LAST 12 MONTHS (VAGINAL, ORAL, OR ANAL)?NO HAVE YOU EVER HAD AN STD?NO HIV / HEP-C SCREENING HIV TEST OFFERED TO PATIENT:YES DATE OFFERED:10/26/2017 TEST ACCEPTED:NO HEP-C TEST OFFERED TO PATIENT:NO REASON:PATIENT DECLINED BROCHURE PROVIDED TO PATIENTNO ADVENTISM NO NONDENOMINATIONAL BELIEFS THAT WOULD IMPACT HEALTH CARE. 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 LEARNING BARRIERS / SPECIAL NEEDS CHANGE FROM LAST VISIT?NO BARRIERS TO LEARNING?NO HEARING IMPAIRED?NO VISION IMPAIRED?YES :CORRECTIVE LENSES COGNITIVELY IMPAIRED?NO READINESS TO LEARN?YES LEARNING PREFERENCES?NO LEARNING CAPABILITIES PRESENT?YES EMOTIONAL BARRIERS?YES ANXIETY SPECIAL DEVICES?YES :WALKER NEEDED MEDICAL AFFAIRS LEADER NEEDED?NO DOMESTIC VIOLENCE DO YOU FEEL SAFE IN YOUR ENVIRONMENT?YES OCCUPATION: UNEMPLOYED. DIET: REGULAR. EXERCISE: NO REGULAR EXERCISE. MARITAL STATUS: .. OTHERS AT HOME: [id number], BROTHER, NEPHEW AND BOYFRIEND. - PFS REFERRAL NEEDED?NO CLERGY REFERRAL NEEDED?NO PUBLIC HEALTH REFERRAL NEEDED?NO HAS THE PATIENT BEEN EDUCATED REGARDING HIS/HER PLAN OF CARE?YES HAS THE PATIENT BEEN EDUCATED REGARDING PAIN, THE RISK FOR PAIN, THE IMPORTANCE OF EFFECTIVE PAIN MANAGEMENT, AND THE PAIN ASSESSMENT PROCESS?YES ADVANCE DIRECTIVE ADVANCE DIRECTIVE DISCUSSED WITH PATIENT:YES 02/02/2020 PT HAS NO ADVANCED DIRECTIVES, DECLINES HCP INFORMATION AND ASSISTANCE WITH FORM AT THIS TIME. HOSPITALIZATION/MAJOR DIAGNOSTIC PROCEDURE ABOVE SURGERIES MRSA RIGHT GROIN 2014, C DIFF 2014 CHEST PAIN 10/20/2016 [facility] 09/2017 DIVERTICULITIS AND /HYPOTENSION 06/2018 SYNCOPE 09/2018 A-FIB AND LOOP RECORDER 10/2018 REVIEW OF SYSTEMS CONSTITUTIONAL: ANY RECENT FEVER NO . CHILLS NO . WEIGHT CHANGE OF UNKNOWN REASONS NO . GASTROENTEROLOGY: NEW UNEXPLAINABLE CHANGES IN BOWEL CONTROL NO . CONSTIPATION NO . GENITOURINARY: ANY NEW CHANGE IN BLADDER CONTROL? NO . NEUROLOGY: NEW ONSET DIZZINESS OR NEUROLOGICAL CHANGES NOT MENTIONED NO . NEW NUMBNESS OR PAIN PATTERNS NOT MENTIONED AND PERTINENT TO TODAY'S VISIT NO . CARDIOLOGY: NEW CHEST PRESSURE NO . PATIENT DENIES NO . RESPIRATORY: UNEXPLAINABLE COUGH NO . NEW SHORTNESS OF BREATH YES . VITAL SIGNS WT 264.4 LBS, HT 61 IN, BMI 49.95 INDEX, BP 154/88 MM HG, HR 65 /MIN, RR 18 /MIN, TEMP 96.0 F, OXYGEN SAT % 92%, SAFE IN ENV? (Y/N) YES, NA INITIALS AW 0901, REVIEWED BY: ANDREA RUSSO MA. EXAMINATION GENERAL EXAMINATION: GENERALNO ACUTE DISTRESS, WELL NOURISHED AND HYDRATED. PSYCHAPPROPRIATE MOOD AND AFFECT . LUNGS:CLEAR TO AUSCULTATION BILATERALLY, NO WHEEZES, RHONCHI, RALES. HEART:NO MURMURS, REGULAR RATE AND RHYTHM. BACK:POINT TENDER ALONG LUMBAR SPINE, POSITIVE MODIFIED SLR LEFT SIDE. MUSCULOSKELETAL:NOTABLE WEAKNESS OF THE LEFT LOWER EXTREMITY, RIGHT LOWER EXTREMITY WITHIN NORMAL LIMITS. ASSESSMENTS INTERVERTEBRAL DISC DISORDERS WITH RADICULOPATHY, LUMBAR REGION - M51.16 (PRIMARY) TREATMENT INTERVERTEBRAL DISC DISORDERS WITH RADICULOPATHY, LUMBAR REGION MEDICATION: VALIUM TAB 10MG ORALLY (DIAZEPAM) (ORDERED FOR 07/28/2020) MEDICATION: OXYCODONE HCL TAB 10MG ORALLY (ORDERED FOR 07/28/2020) NOTES: 55-YEAR-OLD FEMALE IN FOR CHRONIC PAIN FOLLOW-UP. GIVEN PRESENTING SYMPTOMS AND RESULTS OF PHYSICAL EXAMINATION RECOMMENDED LUMBAR EPIDURAL STEROID INJECTIONS WITH POSTPROCEDURAL FOLLOW-UP. PATIENT WAS ENCOURAGED TO DISCUSS HER SHORTNESS OF BREATH AND LOWER EXTREMITY EDEMA WITH URGENTCARE AND/OR PRIMARY CARE PROVIDER. PATIENT HAS EXPRESSED UNDERSTANDING OF AND WAS IN AGREEMENT WITH TREATMENT PLAN. GIVEN TIME TO ASK QUESTIONS AND EXPRESS CONCERNS. ISTOP REGISTRY REVIEWED AND DEMONSTRATES COMPLLIANCE. (REF #[id number] ) BRINGS IN MEDICATIONS WHICH IS APPROPRIATE FOR WHAT WAS DISPENSED. RECENT URINE TOXICOLOGY REVIEWED. NO UNAUTHORIZED MEDICATIONS. NO ILLICIT SUBSTANCES AND PRESCRIBED MEDICATIONS WERE PRESENT. CLINICAL NOTES: PREPROCEDURE AND PROCEDURE INFORMATION PRINTED AND PROVIDED TO PATIENT. PATIENT VERBALIZED AN UNDERSTANDING. MED HOLD REQUEST FAXED TO DR. CHIN ARANDA TO REQUEST PERMISSION TO HOLD ELOQUIS FOR PROCEDURE. LORIE RUSSO MA. PROCEDURE CODES FA211 ESTABILISHED PATIENT [facility] CHARGE DISPOSITION & COMMUNICATION FOLLOW UP POST PROCEDURE (REASON: LUMBAR EPIDURAL STEROID INJECTION ) ELECTRONICALLY SIGNED BY TRA ACOSTA ON 07/21/2020 AT 08:29 AM EDT DISCLAIMER : THIS IS A VISIT SUMMARY EXTRACTED FROM THE [employer] CHART. IT IS NOT A COPY OF THE [employer] PROGRESS NOTE. RITA
== END ==
LOC: M PAIN 09:00
PROVIDERS: ATTEND Family Medicine
DX: M51.16 Intervertebral disc disorders with radiculopathy, lumbar region (principal); G89.29 Other chronic pain; M79.7 Fibromyalgia; G43.909 Migraine, unspecified, not intractable, without status migrainosus; K21.9 Gastro-esophageal reflux disease without esophagitis; Z86.14 Personal history of Methicillin resistant Staphylococcus aureus infection; Z87.891 Personal history of nicotine dependence; Z88.1 Allergy status to other antibiotic agents; Z88.8 Allergy status to other drugs, medicaments and biological substances; Z91.09 Other allergy status, other than to drugs and biological substances; E66.01 Morbid (severe) obesity due to excess calories; Z68.42 Body mass index [BMI] 45.0-49.9, adult; Z79.01 Long term (current) use of anticoagulants; Z79.891 Long term (current) use of opiate analgesic; Z79.899 Other long term (current) drug therapy

== ENCOUNTER 2020-07-21 09:08 | Emergency (ER) | payer OTHER, MEDICAID ==
[~2020-07-21] VITALS: Ht 157.5 cm; Wt 120.4 kg
[~2020-07-21 09:08] MED LIST changes: -BUPR10DI3; -LASI20TA3 PO; -OMEP-221 PO
[2020-07-21] MEDS ORDERED: BUPR10DI3 (09:18)
[2020-07-21] MEDS ORDERED: OMEP-221 PO (09:18)
--- NOTE | 2020-07-21 10:02 | REP ---
INDICATION: sob COMPARISON: 06/02/2020 TECHNIQUE: Portable AP view of the chest FINDINGS: The mediastinum and cardiac silhouette are stable and within normal limits for portable technique. The lung thomason are clear without acute consolidation, effusion, or pneumothorax. Skeletal structures are intact. Loop recorder overlies the cardiac silhouette. IMPRESSION: No acute cardiopulmonary process appreciated. <Electronically signed by Fletcher Serna > 07/21/20 [id number]
[2020-07-21 10:38] LABS: ALBUMIN 3.2 GM/DL (3.2-5.2); ALT/SGPT 53 U/L (12-78); BILIRUBIN,DIRECT 0.1 MG/DL (0.0-0.2); BILIRUBIN,TOTAL 0.6 MG/DL (0.2-1.0); BLOOD UREA NITROGEN 7 MG/DL (7-18); CALCIUM LEVEL 9.2 MG/DL (8.5-10.1); CARBON DIOXIDE LEVEL 28 MEQ/L (21-32); CHLORIDE LEVEL 109 MEQ/L (98-107); CK-MB VALUE MASS < 1.0 NG/ML (<3.6); CPK CREATINE PHOSPHOKINASE 138 U/L (26-192); CREATININE FOR GFR 0.77 MG/DL (0.55-1.30); GLOMERULAR FILTRATION RATE > 60.0 (>51); GLUCOSE, FASTING 88 MG/DL (70-100); MB/CK RELATIVE INDEX 0.72 (< OR =4); NT-PRO BNP 224 PG/ML (<125); POTASSIUM SERUM 4.1 MEQ/L (3.5-5.1); SODIUM LEVEL 141 MEQ/L (136-145); TOTAL PROTEIN 6.1 GM/DL (6.4-8.2); TROPONIN I < 0.02 NG/ML (< 0.10)
[2020-07-21 10:44] LABS: APPEARANCE, URINE HAZY (CLEAR); BACTERIA, URINE AUTO 1+ (NEGATIVE); BILIRUBIN, URINE AUTO NEGATIVE (NEGATIVE); BLOOD, URINE BLOOD NEGATIVE (NEGATIVE); COLOR, URINE STRAW (YELLOW); GLUCOSE, URINE (UA) AUTO NEGATIVE (NEGATIVE); KETONE, URINE AUTO NEGATIVE (NEGATIVE); LEUKOCYTE ESTERASE, URINE AUTO 2+ (NEGATIVE); NITRITE, URINE AUTO NEGATIVE (NEGATIVE); PROTEIN, URINE AUTO NEGATIVE (NEGATIVE); RBC, URINE AUTO 1 /HPF (0-3); SPECIFIC GRAVITY URINE AUTO 1.001 (1.002-1.035); SQUAMOUS EPITHELIAL CELL UR AU 2 /HPF (0-6); UROBILINOGEN, URINE AUTO 0.2 mg/dL (0.0-2.0); WBC, URINE AUTO 4 /HPF (0-3)
[2020-07-21 10:45] LABS: BASO % 0.6 % (0.0-1.0); EOS # 0.1 10^3/uL (0.0-0.5); EOS % 1.9 % (0.0-3.0); HEMATOCRIT 41.2 % (36.0-47.0); HEMOGLOBIN 13.7 g/dl (12.0-15.5); LYMPH # 1.3 10^3/uL (1.5-5.0); MEAN CORPUSCULAR HEMOGLOBIN 30.3 pg (27.0-33.0); MEAN CORPUSCULAR HGB CONC 33.3 g/dl (32.0-36.5); MEAN CORPUSCULAR VOLUME 91.2 fl (80.0-96.0); MONO # 0.4 10^3/uL (0.0-0.8); MONO % 10.3 % (2.0-8.0); NEUTROPHILS # 1.8 10^3/uL (1.5-8.5); NEUTROPHILS % 49.9 % (36.0-66.0); PLATELET COUNT, AUTOMATED 166 10^3/uL (150-450); RED BLOOD COUNT 4.52 10^6/uL (4.00-5.40); WHITE BLOOD COUNT 3.6 10^3/uL (4.0-10.0)
[2020-07-21] MEDS ORDERED: IPRATROPIUM HFA INHALER 12.9 GRAMS (ATROVENT HFA) INH ONE (11:25)
[2020-07-21] MEDS ORDERED: FUROSEMIDE 40 MG TAB PO ONE (11:25)
[2020-07-21] MEDS ORDERED: ALBUTEROL 90 MCG/ACT 8GM HFA INHALER INH ONE (11:25)
[2020-07-21] MEDS ORDERED: COMBIVENT RESPIMAT 100-20MCG INHALER 4GM INH ONE (11:30)
[2020-07-21] MEDS ORDERED: LASI20TA3 PO (12:40)
[2020-07-21 12:49] VITALS: BP 159/79
--- NOTE | 2020-07-22 02:39 | ECGEPIP ---
[facility] - ED Test Date: 2020-07-21 Pat Name: SMITH VIVEROS Department: Room: - Gender: Female Media Monitor: NONI : 1965 Requested By: EVELIN NDIAYE PA-C. Order Number: [id number] Reading MD: Barrie Mobley Measurements Intervals [place] Rate: 59 P: 10 ND: 146 QRS: 7 QRSD: 84 T: 6 QT: 442 QTc: 437 Interpretive Statements Sinus bradycardia with sinus arrhythmia Cannot rule out Inferior infarct , age undetermined NSTTW ABNORMALITY(S) SIMILAR TO 06/16/20 Electronically Signed on 07-22-2020 2:39:38 EDT by Barrie Mobley
== END 2020-07-21 12:52 | disposition home or self-care (01) ==
LOC: M ED 09:08
DX: J44.9 Chronic obstructive pulmonary disease, unspecified (principal); I50.9 Heart failure, unspecified; R94.31 Abnormal electrocardiogram [ECG] [EKG]; G89.29 Other chronic pain; Z79.899 Other long term (current) drug therapy; Z88.1 Allergy status to other antibiotic agents; Z88.0 Allergy status to penicillin; Z88.8 Allergy status to other drugs, medicaments and biological substances; Z88.2 Allergy status to sulfonamides; Z87.891 Personal history of nicotine dependence

== ENCOUNTER 2020-08-03 18:47 | Emergency (ER) | payer MEDICAID, OTHER ==
[~2020-08-03] VITALS: Ht 157.5 cm; Wt 90.9 kg
[~2020-08-03 18:47] MED LIST changes: +BUPR10DI3; +LASI20TA3 PO; +OMEP-221 PO
[2020-08-03] MEDS ORDERED: ACETAMINOPHEN 325 MG TAB PO ONE (19:40)
--- NOTE | 2020-08-03 20:49 | REPVR ---
PROCEDURE INFORMATION: Exam: US Duplex Right Lower Extremity Veins, Limited Exam date and time: 08/03/2020 8:15 PM Age: 55 years old Clinical indication: Pain; Leg, upper; Right; Additional info: C/O swelling/pain TECHNIQUE: Imaging protocol: Real-time Duplex ultrasound of the Right Lower Extremity with 2-D rm scale, color Doppler flow and spectral waveform analysis with image documentation. Limited exam was focused on the right lower extremity veins. COMPARISON: US Duplex, Ext LOWER veins, bilat 01/18/2020 7:26 PM FINDINGS: Right deep veins: Unremarkable. The common femoral, femoral, proximal profunda femoral and popliteal veins are patent without thrombus. Normal Doppler waveforms. Normal compressibility and/or augmentation response. Evaluation limited due to poor patient cooperation. Right superficial veins: Unremarkable. Saphenofemoral junction is patent without thrombus. Soft tissues: Soft tissue edema. IMPRESSION: Soft tissue edema. No DVT. Electronically signed by: Giovanni Khanna On 08/03/2020 20:49:45 PM
[2020-08-03 21:08] VITALS: BP 170/103
== END 2020-08-03 21:11 | disposition home or self-care (01) ==
LOC: EDBD 18:47 → M ED 18:47
DX: S86.911A Strain of unspecified muscle(s) and tendon(s) at lower leg level, right leg, initial encounter (principal); X58.XXXA Exposure to other specified factors, initial encounter; Y92.89 Other specified places as the place of occurrence of the external cause; Y93.89 Activity, other specified; Y99.8 Other external cause status; I10 Essential (primary) hypertension; F17.200 Nicotine dependence, unspecified, uncomplicated; Z79.899 Other long term (current) drug therapy; Z88.0 Allergy status to penicillin; Z88.8 Allergy status to other drugs, medicaments and biological substances; Z88.1 Allergy status to other antibiotic agents; Z88.2 Allergy status to sulfonamides; Z98.890 Other specified postprocedural states

== ENCOUNTER 2020-08-17 23:07 | Emergency (ER) | payer OTHER ==
[~2020-08-17] VITALS: Ht 157.5 cm; Wt 123.2 kg
[2020-08-18 02:04] VITALS: BP 138/76
== END 2020-08-18 05:45 | disposition left against medical advice (07) ==
LOC: M ED 23:07
DX: Z53.21 Procedure and treatment not carried out due to patient leaving prior to being seen by health care provider (principal)

== ENCOUNTER → 2020-09-03 | Outpatient (CLI) | payer OTHER ==
[~2020-09-03] MED LIST changes: -DOXY100C37 PO; +DOXY1CAP62 PO; -OXYC1TAB15 PO; +OXYC7.5T3 PO
== END ==
LOC: M LABSMTC 09:32
PROVIDERS: ATTEND Anesthesiology
DX: Z11.52 Encounter for screening for COVID-19 (principal)

== ENCOUNTER → 2020-09-08 | Outpatient (CLI) | payer OTHER ==
[~2020-09-08] MED LIST changes: +ISOVUE-M 300 61% 15ML VIAL As Ordered ONE; +LIDOCAINE 1% SDV 30ML VIAL As Ordered ONE; +diazePAM 5MG TABLET As Ordered ONE; +methylPREDNISolone SUSP 40MG/ML 1ML VIAL (DEPO MEDROL) As Ordered ONE; +oxyCODONE 5MG TAB As Ordered ONE
--- NOTE | 2020-09-08 12:02 | REP ---
INDICATION: PAIN. COMPARISON: None. TECHNIQUE: 10 seconds of fluoroscopic guidance was provided for a lumbar epidural injection. FINDINGS: Contrast has been injected and is seen at the L4-5 and L4 level. IMPRESSION: As above <Electronically signed by Jt De Leon > 09/08/20 [id number]
--- NOTE | 2020-09-09 02:06 | ECWPNPC ---
PATIENT NAME: SMITH VIVEROS : 1965 GENDER: FEMALE VISIT DATE: 09/08/2020 DISCHARGE DATE: 09/08/20 1212 VISIT LOCKED DATE TIME: PHYSICIAN: ARELIS MILLER MD RESOURCE: ARELIS MILLER MD REASON FOR APPOINTMENT 1. LUMBAR EPIDURAL STEROID INJECTION HISTORY OF PRESENT ILLNESS GENERAL: -. FALL RISK SCREENING: SCREENING : ONE FALL REPORTED IN THE LAST YEAR WITHOUT INJURY. PAIN SCREENING: PATIENT HAS A COMPLAINT OF ACUTE OR CHRONIC PAIN :YES LOCATION OF PAIN:LOW BACK, LEG(S) INTENSITY OF PAIN (SCALE OF 1 TO 10):10 WHAT DOES YOUR PAIN FEEL LIKE:THROBBING, SHOOTING DURATION:CONTINOUS, CONSTANT PAIN IS INCREASED BY:ACTIVITIES PAIN IS DECREASED BY:USE OF PAIN MEDICATIONS NURSING NOTE: -. PAIN CENTER INTAKE QUESTIONS: DO YOU HAVE A HISTORY OF MRSA? :YES IN RIGHT LEG 4 YEARS AGO DO YOU TAKE A BLOOD THINNERS? :YES ELIQUIS FOR BLOOD CLOTS DO YOU HAVE ANY BLEEDING DISORDERS? :NO ANY NEW NUMBNESS OR WEAKNESS IN YOUR LEGS OR ARMS? :NO ANY PACEMAKER,DEFIBRILLATOR, OR DORSAL COLUMN STIMULATOR? :YES LOOP RECORDER DO YOU HAVE ANY RASHES OR OPEN SORES? :NO ARE YOU ALLERGIC TO IV DYE? :NO ARE YOU DIABETIC? :NO ANY NEW PROBLEMS WITH YOUR MEDICATIONS? :NO HAVE YOU RECEIVED A VACCINE IN THE PAST 30 DAYS? :NO DO YOU PLAN TO RECEIVE A VACCINE IN THE NEXT 21 DAYS? :NO DO YOU TAKE ANY IMMUNOSUPPRESSIVE MEDICATIONS? :NO ANY HISTORY OF SEIZURES? :NO ANY HISTORY OF CARDIAC ISSUES OR EVENTS? :YES CHF DO YOU HAVE ANY KIDNEY OR LIVER DISEASE? :NO DO YOU HAVE SLEEP APNEA? :NO ANY RECENT HEAD INJURY? :NO DO YOU HAVE ANY NEW INFECTIONS? :NO IS THERE A CHANCE YOU COULD BE ? :NO ARE YOU BREAST FEEDING? :NO WHEN DID YOU LAST EAT? : -09/07 2300 WHEN DID YOU LAST DRINK? : -09/08 0700 WHAT DID YOU LAST DRINK? : -WATER NAME OF PERSON DRIVING YOU HOME? : [employer] DO YOU HAVE ANY OTHER QUESTIONS OR CONCERNS? : - CURRENT MEDICATIONS TAKING NITROGLYCERIN 0.4 MG TABLET SUBLINGUAL DIRECTED SUBLINGUAL EVERY 5 MIN: MDD 3 TABLETS TAKING SUCRALFATE 1 GM TABLET 1 TABLET ORALLY TWICE A DAY TAKING PROTONIX 40 MG TABLET DELAYED RELEASE 1 TABLET ORALLY BID TAKING METOPROLOL SUCCINATE 100 MG CAPSULE ER 24 HOUR SPRINKLE 1 CAPSULE ORALLY ONCE A DAY, NOTES: 09/08 1999 TAKING ELIQUIS 5 MG TABLET 1 TAB(S) ORALLY TWICE DAILY, NOTES: 09/04 TAKING BUTRANS 20 MCG/HR PATCH WEEKLY 1 PATCH TO SKIN TRANSDERMAL 1 PATCH Q7 DAYS=MDD, NOTES: 09/07 NOT-TAKING BELBUCA 75 MCG FILM 1 FILM TO THE GUM BUCALLY FOR PAIN ONCE A DAY NOT-TAKING SKELAXIN 800 MG TABLET 1 TABLET ORALLY THREE TIMES DAILY NEEDED NOT-TAKING CARISOPRODOL 350 MG TABLET 1 TABLET NEEDED ORALLY DAILY NOT-TAKING METAXALONE 800 MG TABLET 1 TABLET ORALLY NEEDED FOR SPASMS AND PAIN THREE TIMES A DAY MDD3 NOT-TAKING BACLOFEN 5 MG TABLET 1 TABLET WITH FOOD OR MILK ORALLY THREE TIMES A DAY NOT-TAKING TIZANIDINE HCL 2 MG TABLET 1 TABLET NEEDED ORALLY THREE TIMES A DAY NOT-TAKING FUROSEMIDE 20 MG TABLET 1 TABLET ORALLY ONCE A DAY NOT-TAKING MAY USE - - CBD OIL0(OTC) 2 GTTS ORALLY PT TAKES ON HER OWN NEEDED NOT-TAKING BELBUCA 150 MCG FILM 1 FILM TO THE GUM BUCALLY ONCE A DAY NOT-TAKING ROBAXIN 500 MG TABLET 1.5 TABLETS ORALLY EVERY 4 HRS NOT-TAKING PAROXETINE HCL 30 MG TABLET 1 TABLET IN THE MORNING ORALLY ONCE A DAY PAST MEDICAL HISTORY FIBROMYALGIA DX 4 YEARS AGO, BEING FOLLOWED AT PAIN CLINIC MIGRAINE HEADACHE STRESS INCONTINENCE DEPRESSION HYPERLIPIDEMIA VITAMIN D DEFICIENCY AFIB GERD INTERMITTENT A FIB STRESS INCONTINENCE, FEMALE CHRONIC PAIN SYNDROME UNSPECIFIED VITAMIN D DEFICIENCY MIGRAINE, UNSPECIFIED WITHOUT MENTION OF INTRACTABLE MIGRAINE WITHOUT MENTION OF STATUS MIGRAINOSUS HYPERTENSION CONGESTIVE HEART FAILURE PER ED DOC-07/09/2019- PT STATES SHE HAS SEEN DR CASTILLO SINCE AND IS CLEARED FROM THAT CHF EPISODE UNSTEADY GAIT LOW BACK PAIN ALLERGIES ZIPSOR: SWELLING,HIVES - ALLERGY FLEXERIL: AGGITATION - ALLERGY LYRICA: ANAPHYLAXIS - ALLERGY DICLOFENAC POTASSIUM: AGGITATION (ZIPSOR) - ALLERGY BACTRIM: NAUSEA/VOMITING - ALLERGY CYMBALTA: NAUSEA/VOMITING - SIDE EFFECTS AMITRIPTYLINE: AGGITATION - SIDE EFFECTS GABAPENTIN: HALLUCINATIONS - SIDE EFFECTS TIZANIDINE HCL: HIVES - ALLERGY KETOROLAC TROMETHAMINE: STOMACH PAIN - ALLERGY TAPE ADHESIVE: RASH - SIDE EFFECTS SOCIAL HISTORY GENERAL: TOBACCO USE ARE YOU A:FORMER SMOKER HOW LONG HAS IT BEEN SINCE YOU LAST SMOKED?5-10 YEARS VAPORNO E-CIGARETTEYES LATEX QUESTIONNAIRE LATEX ALLERGY : HAVE YOU EVER DEVELOPED ANY TYPE OF REACTION AFTER HANDLING LATEX PRODUCTS SUCH RUBBER GLOVES, CONDOMS, DIAPHRAGMS, BALLOONS, SOCKS, OR UNDERWEAR?NO LATEX ALLERGY : HAVE YOU EVER DEVELOPED ANY TYPE OF REACTION DURING OR AFTER DENTAL APPOINTMENT, VAGINAL/RECTAL EXAMINATION, SURGICAL PROCEDURE, OR ANY OTHER EXPOSURE?NO DATE ASKED : 07/20/2020 LATEX RISK : HAVE YOU EVER HAD ANY DIFFICULTY BREATHING OR HIVES AFTER EATING OR HANDLING ANY FRUITS, OR VEGETABLES; SUCH KIWI, BANANAS, STONE FRUITS, OR CHESTNUTSNO LATEX RISK : DO YOU HAVE A PREVIOUS PERSONAL HISTORY OF MORE THAN NINE SURGERIES, SPINA BIFIDA, OR REPEATED CATHERIZATIONS? YES - PLEASE INDICATE : > 9 SURGERIES LATEX RISK : ARE YOU FREQUENTLY EXPOSED TO LATEX PRODUCTS IN YOUR OCCUPATION?NO ALCOHOL USE: NO. BMI CARE GOAL FOLLOW-UP ABOVE NORMAL BMI FOLLOW-UPLIFESTYLE EDUCATION REGARDING DIET ALCOHOL SCREENING DID YOU HAVE A DRINK CONTAINING ALCOHOL IN THE PAST YEAR?NO POINTS0 INTERPRETATIONNEGATIVE RECREATIONAL DRUG USE DRUG USE?NO CAFFEINE CAFFEINE USE?YES SEXUAL HX HAD SEX IN THE LAST 12 MONTHS (VAGINAL, ORAL, OR ANAL)?NO HAVE YOU EVER HAD AN STD?NO HIV / HEP-C SCREENING HIV TEST OFFERED TO PATIENT:YES DATE OFFERED:10/26/2017 TEST ACCEPTED:NO HEP-C TEST OFFERED TO PATIENT:NO REASON:PATIENT DECLINED BROCHURE PROVIDED TO PATIENTNO ROMAN CATHOLIC NO MUSLIM BELIEFS THAT WOULD IMPACT HEALTH CARE. LANGUAGE [place]. LEARNING BARRIERS / SPECIAL NEEDS CHANGE FROM LAST VISIT?NO BARRIERS TO LEARNING?NO HEARING IMPAIRED?NO VISION IMPAIRED?YES COGNITIVELY IMPAIRED?NO :CORRECTIVE LENSES READINESS TO LEARN?YES LEARNING PREFERENCES?NO LEARNING CAPABILITIES PRESENT?YES EMOTIONAL BARRIERS?YES ANXIETY SPECIAL DEVICES?YES :WALKER NEEDED AUDITOR INTERNAL NEEDED?NO DOMESTIC VIOLENCE DO YOU FEEL SAFE IN YOUR ENVIRONMENT?YES OCCUPATION: UNEMPLOYED. DIET: REGULAR. EXERCISE: NO REGULAR EXERCISE. MARITAL STATUS: .. OTHERS AT HOME: [id number], BROTHER, NEPHEW AND BOYFRIEND. - PFS REFERRAL NEEDED?NO CLERGY REFERRAL NEEDED?NO PUBLIC HEALTH REFERRAL NEEDED?NO HAS THE PATIENT BEEN EDUCATED REGARDING HIS/HER PLAN OF CARE?YES HAS THE PATIENT BEEN EDUCATED REGARDING PAIN, THE RISK FOR PAIN, THE IMPORTANCE OF EFFECTIVE PAIN MANAGEMENT, AND THE PAIN ASSESSMENT PROCESS?YES ADVANCE DIRECTIVE ADVANCE DIRECTIVE DISCUSSED WITH PATIENT:YES 02/02/2020 PT HAS NO ADVANCED DIRECTIVES, DECLINES HCP INFORMATION AND ASSISTANCE WITH FORM AT THIS TIME. VITAL SIGNS WT 257.8 LBS, HT 61 IN, BMI 48.71 INDEX, BP 147/72 MM HG, HR 83 /MIN, RR 18 /MIN, TEMP 97.8 F, OXYGEN SAT % 96%, SAFE IN ENV? (Y/N) YES, NA INITIALS , REVIEWED BY: MIHIR RN. EXAMINATION GENERAL: THE PATIENT IS ALERT, ORIENTED TIMES THREE AND COOPERATIVE. LUNGS ARE CLEAR TO AUSCULTATION. HEART SHOWS REGULAR RHYTHM, NO MURMURS AND NO GALLOPS. ASSESSMENTS INTERVERTEBRAL DISC DISORDERS WITH RADICULOPATHY, LUMBAR REGION - M51.16 (PRIMARY) TREATMENT INTERVERTEBRAL DISC DISORDERS WITH RADICULOPATHY, LUMBAR REGION [facility] FLUORO GUIDE SPINE INJECTION (PAIN)[id number] IV LACTATED RINGER'S WIDE OPENDEANNE,ROXY 09/08/2020 9:37:10 AM > GIVE 500CC BEFORE GOING TO PROCEDURE ROOM EMMANUEL GRACIA 09/08/2020 11:23:57 AM > #22 IV INITIATED LEFT HAND ON 2ND ATTEMPT. IV LR INITIATED PER MD ORDER. @ IV ATTEMPTS MADE PRIOR TO THIS BY Rojelio HAQ RN. PATIENT TOLERATED IV STICKS WELL. EMMANUEL GRACIA 09/08/2020 11:56:00 AM > LR 550CC TOTAL INFUSED. COMPLETION OF PROCEDURAL VISIT WHEN MEETS CRITERIA MEDICATION: VALIUM TAB 10MG ORALLY (DIAZEPAM)ROXY ALICEA 09/08/2020 10:31:48 AM > VERIFIED EMMANUEL GRACIA 09/08/2020 10:37:55 AM > ADMINISTERED MEDICATION: OXYCODONE HCL TAB 10MG ORALLYROXY ALICEA 09/08/2020 10:32:04 AM > VERIFIED EMMANUEL GRACIA 09/08/2020 10:38:19 AM > ADMINISTERED OTHERS NOTES: PAT DONE 09/03/20. EM. PROCEDURES PAIN NURSING RECORD PROCEDURE IN ROOM 1110, PHYSICIAN IN ROOM 1132, START 1136, FINISH 1140, PHYSICIAN OUT OF ROOM 1144, OUT OF ROOM 1148, ECG NORMAL SINUS, PATIENT SHIELDED YES, SAFETY STRAP YES, PREP BETADINE Paige GRACIA RN, DRESSING TEGADERM DR. MILLER LOC: 1. ALERT, ORIENTED RESP: 1. REGULAR, NO DYSPNEA COLOR: 1. PINK SKIN: 1. WARM, DRY POSITION: 1. PRONE VITALS: EMMANUEL GRACIA 09/08/2020 10:41:47 AM > 110/64 HR 64 16 98% R/A , EMMANUEL GRACIA 09/08/2020 11:15:04 AM > 151/80 HR 71 16 99% R/ASAMIA MARY 09/08/2020 11:30:12 AM > 151/83 HR 71 16 98% R/A , EMMANUEL GRACIA 09/08/2020 11:42:43 AM > 137/84 HR 71 16 91% R/A , EMMANUEL GRACIA 09/08/2020 11:55:06 AM > 140/72 HR 89 16 93% R/A D/C V/S. NOTES Paige MILLER UPDATED REGARDING CURRENT V/S OF 110/64 HR 64 16 98% R/A. 200CC OF LR INFUSED. DR MILLER STATED PATIENT WAS CLEARED TO GO TO PROCEDURE ROOM. COMPLETION OF PROCEDURE APPOINTMENT: POST PAIN 4, DRESSING SITE DRY AND INTACT, IV DISCONTINUED, SITE CLEAR, CATHETER INTACT, GAIT STEADY, TEACHING COMPLETED, PATIENT ACKNOWLEDGES UNDERSTANDING YES, PROCEDURE APPOINTMENT COMPLETED AT 1210 PRE PROCEDURE DIAGNOSIS LUMBAR DISC DISORDER WITH RADICULOPATHY POST PROCEDURE DIAGNOSIS LUMBAR DISC DISORDER WITH RADICULOPATHY PROCEDURE LUMBAR EPIDURAL STEROID INJECTION UNDER FLUOROSCOPIC GUIDANCE SURGEON DR. ARELIS MILLER DRIVER MANAGER NONE ANESTHESIA LOCAL PRE PROCEDURE NOTE THE PATIENT HAS A HISTORY OF CHRONIC LOW BACK PAIN. I EVALUATED THE PATIENT AND REVIEWED THE CHART. I WENT OVER THE RISKS, ALTERNATIVES, AND BENEFITS ASSOCIATED WITH THIS PROCEDURE. THE PATIENT WOULD LIKE TO PROCEED AND GIVE CONSENT TO PERFORMED THE PROCEDURE. THE PATIENT DENIES UNEXPLAINABLE WEIGHT LOSS, FEVER, CHILLS, OR NEW CHANGES IN URINARY OR BOWEL CONTROL. THE PATIENT IS COVID-19 NEGATIVE DESCRIPTION OF PROCEDURE THE PATIENT WAS BROUGHT TO THE PROCEDURE ROOM AND PLACED IN THE PRONE POSITION. THE LUMBOSACRAL AREA WAS CLEANED WITH BETADINE SOLUTION AND DRAPED ASEPTICALLY. THE PROCEDURE WAS DONE UNDER STERILE CONDITIONS. A TIMEOUT WAS PERFORMED WHERE THE CONSENTED SITE WAS VERIFIED WITH EVERYONE IN THE ROOM. UNDER FLUOROSCOPIC GUIDANCE, THE TARGET POINT WAS SELECTED AT THE INTERLAMINAR LEVEL OF L4-L5. I CONFIRMED AGAIN THE SITE OF TARGET. LIDOCAINE WAS USED TO NUMB THE SKIN AND THE SUBCUTANEOUS TISSUE BELOW IT. EPIDURAL TUOHY NEEDLE, 17-GAUGE, WAS ADVANCED UNDER FLUOROSCOPIC GUIDANCE AND FOLLOWING PATIENT FEEDBACK UNTIL THE EPIDURAL SPACE WAS REACHED 8 CM DEEP INTO THE SKIN BY THE LOSS OF RESISTANCE TECHNIQUE. ISOVUE-M DYE 30%, 0.25 ML, WAS INJECTED SHOWING ADEQUATE SPREAD OF THE DYE. THEN, A SOLUTION OF 3 ML OF NORMAL SALINE WITH DEPO-MEDROL 40 MG WAS INJECTED SLOWLY FOLLOWING PATIENT FEEDBACK. THE MEDICATIONS WERE VERIFIED WITH THE NURSE. THERE WAS NO EVIDENCE OF BLOOD, PARESTHESIA OR CEREBROSPINAL FLUID DURING THE PROCEDURE. THE PATIENT WAS SENT TO THE RECOVERY ROOM. THE PATIENT WAS MOVING THE EXTREMITIES AND DOING WELL. THERE WERE NO COMPLICATIONS DURING THE PROCEDURE. ESTIMATED BLOOD LOSS WAS LESS THAN 5 ML. FLUOROSCOPY TIME WAS 10 SECONDS POST PROCEDURE NOTE ALL PROCEDURE APPOINTMENTS SHOULD BE EARLY APPOINTMENTS. THE PATIENT WILL BE SEEN IN A FOLLOW UP IN THE NEXT FEW WEEKS. I AM LOOKING FOR LONG LASTING RELIEF FOR THE PATIENT WITH THIS INTERVENTION. INSTRUCTIONS WERE GIVEN, QUESTIONS WERE ANSWERED, AND THE PATIENT EXPRESSED UNDERSTANDING AND AGREES WITH THE PLAN. I, HEBER HARRIS, DOCUMENTED THE ABOVE INFORMATION ACTING A SCRIBE FOR DR. MILLER. I HAVE REVIEWED THE ABOVE DOCUMENT, WRITTEN BY HEBER HARRIS, SOLUTIONS ARCHITECT CONSULTANT, AND I VERIFY THAT IT IS ACCURATE PROCEDURE CODES 00326 LUMBAR/SACRAL W/ IMAGING DISPOSITION & COMMUNICATION FOLLOW UP FOLLOW UP WITH MEMORIAL MARKER DESIGNER (REASON: POST LUMBAR EPIDRUAL STEROID INJECTION) ELECTRONICALLY SIGNED BY ARELIS MILLER MD, MD ON 09/08/2020 AT 02:25 PM EDT DISCLAIMER : THIS IS A VISIT SUMMARY EXTRACTED FROM THE [employer] CHART. IT IS NOT A COPY OF THE [employer] PROGRESS NOTE. RITA
== END ==
LOC: M PAIN 10:40
PROVIDERS: ATTEND Anesthesiology
DX: M51.16 Intervertebral disc disorders with radiculopathy, lumbar region (principal); M79.7 Fibromyalgia; G43.909 Migraine, unspecified, not intractable, without status migrainosus; F32.9 Major depressive disorder, single episode, unspecified; E78.5 Hyperlipidemia, unspecified; I48.91 Unspecified atrial fibrillation; K21.9 Gastro-esophageal reflux disease without esophagitis; G89.4 Chronic pain syndrome; E55.9 Vitamin D deficiency, unspecified; R26.81 Unsteadiness on feet; N39.3 Stress incontinence (female) (male); I10 Essential (primary) hypertension; Z87.891 Personal history of nicotine dependence; Z79.01 Long term (current) use of anticoagulants; Z79.899 Other long term (current) drug therapy; Z88.2 Allergy status to sulfonamides; Z88.8 Allergy status to other drugs, medicaments and biological substances; Z91.048 Other nonmedicinal substance allergy status
CPT/HCPCS: 62323; J1030; Q9967

== ENCOUNTER → 2020-09-22 | Outpatient (CLI) | payer OTHER ==
[~2020-09-22] MED LIST changes: -ISOVUE-M 300 61% 15ML VIAL As Ordered ONE; -LIDOCAINE 1% SDV 30ML VIAL As Ordered ONE; -diazePAM 5MG TABLET As Ordered ONE; -methylPREDNISolone SUSP 40MG/ML 1ML VIAL (DEPO MEDROL) As Ordered ONE; -oxyCODONE 5MG TAB As Ordered ONE
--- NOTE | 2020-09-24 05:11 | ECWPNPC ---
PATIENT NAME: SMITH VIVEROS : 1965 GENDER: FEMALE VISIT DATE: 09/22/2020 DISCHARGE DATE: 09/22/20904 VISIT LOCKED DATE TIME: PHYSICIAN: ANISA LOCO RESOURCE: ANISA LOCO REASON FOR APPOINTMENT 1. POST LUMBAR EPIDURAL STEROID INJECTION HISTORY OF PRESENT ILLNESS GENERAL: HPI 55-YEAR-OLD FEMALE IN FOR POST LUMBAR EPIDURAL STEROID INJECTION FOLLOW-UP. PATIENT FEELS THE PROCEDURE WAS SUCCESSFUL ON HER LEFT SIDE STATING THAT THE PAIN WENT FROM A 10 OUT OF 10 TO A 6 OUT OF 10. HOWEVER HER RIGHT SIDE CONTINUES TO BE A 10 OUT OF 10. SHE RATES HER PAIN CURRENTLY AT A 10 OUT OF 10 AND DESCRIBES IT ACHING, BURNING, AND CONTINUOUS. AT THIS TIME PATIENT STATES HER MEDICATIONS ARE NOT HELPFUL.. -. FALL RISK SCREENING: SCREENING FEW FALLS REPORTED IN THE LAST YEAR WITHOUT INJURY. PAIN SCREENING: PATIENT HAS A COMPLAINT OF ACUTE OR CHRONIC PAIN :YES LOCATION OF PAIN:LOW BACK INTENSITY OF PAIN (SCALE OF 1 TO 10):10 WHAT DOES YOUR PAIN FEEL LIKE:ACHING, BURNING, CONTINOUS, STABBING, THROBBING, SORE, SHOOTING DURATION:CONTINOUS, CONSTANT, AWAKENS FROM SLEEP PAIN IS INCREASED BY:ACTIVITIES, PROLONGED STANDING PAIN IS DECREASED BY:OTHERS NOTHING HELPS WITH THE PAIN NURSING NOTE: -. PAIN CENTER INTAKE QUESTIONS: DO YOU HAVE A HISTORY OF MRSA? :YES 7 MONTHS AGO DO YOU TAKE A BLOOD THINNERS? :YES ELOQUIS DO YOU HAVE ANY BLEEDING DISORDERS? :NO ANY NEW NUMBNESS OR WEAKNESS IN YOUR LEGS OR ARMS? :NO ANY PACEMAKER,DEFIBRILLATOR, OR DORSAL COLUMN STIMULATOR? :NO LOOP RECORDER DO YOU HAVE ANY RASHES OR OPEN SORES? :NO ARE YOU ALLERGIC TO IV DYE? :NO ARE YOU DIABETIC? :NO ANY NEW PROBLEMS WITH YOUR MEDICATIONS? :NO HAVE YOU RECEIVED A VACCINE IN THE PAST 30 DAYS? :NO SECOND COVID VACCINATION 06/14/2020 DO YOU PLAN TO RECEIVE A VACCINE IN THE NEXT 21 DAYS? :NO DO YOU NEED ANY PRESCRIPTION? :NO DO YOU TAKE ANY IMMUNOSUPPRESSIVE MEDICATIONS? :NO DO YOU HAVE ANY KIDNEY OR LIVER DISEASE? :NO IS THERE A CHANCE YOU COULD BE ? :NO ARE YOU BREAST FEEDING? :NO CURRENT MEDICATIONS TAKING NITROGLYCERIN 0.4 MG TABLET SUBLINGUAL DIRECTED SUBLINGUAL EVERY 5 MIN: MDD 3 TABLETS TAKING SUCRALFATE 1 GM TABLET 1 TABLET ORALLY TWICE A DAY TAKING PROTONIX 40 MG TABLET DELAYED RELEASE 1 TABLET ORALLY BID TAKING METOPROLOL SUCCINATE 100 MG CAPSULE ER 24 HOUR SPRINKLE 1 CAPSULE ORALLY ONCE A DAY, NOTES: 09/08 1999 TAKING ELIQUIS 5 MG TABLET 1 TAB(S) ORALLY TWICE DAILY, NOTES: 09/04 TAKING BUTRANS 20 MCG/HR PATCH WEEKLY 1 PATCH TO SKIN TRANSDERMAL 1 PATCH Q7 DAYS=MDD, NOTES: 09/07 NOT-TAKING BELBUCA 75 MCG FILM 1 FILM TO THE GUM BUCALLY FOR PAIN ONCE A DAY NOT-TAKING SKELAXIN 800 MG TABLET 1 TABLET ORALLY THREE TIMES DAILY NEEDED NOT-TAKING CARISOPRODOL 350 MG TABLET 1 TABLET NEEDED ORALLY DAILY NOT-TAKING METAXALONE 800 MG TABLET 1 TABLET ORALLY NEEDED FOR SPASMS AND PAIN THREE TIMES A DAY MDD3 NOT-TAKING BACLOFEN 5 MG TABLET 1 TABLET WITH FOOD OR MILK ORALLY THREE TIMES A DAY NOT-TAKING TIZANIDINE HCL 2 MG TABLET 1 TABLET NEEDED ORALLY THREE TIMES A DAY NOT-TAKING FUROSEMIDE 20 MG TABLET 1 TABLET ORALLY ONCE A DAY NOT-TAKING MAY USE - - CBD OIL0(OTC) 2 GTTS ORALLY PT TAKES ON HER OWN NEEDED NOT-TAKING BELBUCA 150 MCG FILM 1 FILM TO THE GUM BUCALLY ONCE A DAY NOT-TAKING ROBAXIN 500 MG TABLET 1.5 TABLETS ORALLY EVERY 4 HRS NOT-TAKING PAROXETINE HCL 30 MG TABLET 1 TABLET IN THE MORNING ORALLY ONCE A DAY MEDICATION LIST REVIEWED AND RECONCILED WITH THE PATIENT PAST MEDICAL HISTORY FIBROMYALGIA DX 4 YEARS AGO, BEING FOLLOWED AT PAIN CLINIC MIGRAINE HEADACHE STRESS INCONTINENCE DEPRESSION HYPERLIPIDEMIA VITAMIN D DEFICIENCY AFIB GERD INTERMITTENT A FIB STRESS INCONTINENCE, FEMALE CHRONIC PAIN SYNDROME UNSPECIFIED VITAMIN D DEFICIENCY MIGRAINE, UNSPECIFIED WITHOUT MENTION OF INTRACTABLE MIGRAINE WITHOUT MENTION OF STATUS MIGRAINOSUS HYPERTENSION CONGESTIVE HEART FAILURE PER ED DOC-07/09/2019- PT STATES SHE HAS SEEN DR CASTILLO SINCE AND IS CLEARED FROM THAT CHF EPISODE UNSTEADY GAIT LOW BACK PAIN ALLERGIES ZIPSOR: SWELLING,HIVES - ALLERGY FLEXERIL: AGGITATION - ALLERGY LYRICA: ANAPHYLAXIS - ALLERGY DICLOFENAC POTASSIUM: AGGITATION (ZIPSOR) - ALLERGY BACTRIM: NAUSEA/VOMITING - ALLERGY CYMBALTA: NAUSEA/VOMITING - SIDE EFFECTS AMITRIPTYLINE: AGGITATION - SIDE EFFECTS GABAPENTIN: HALLUCINATIONS - SIDE EFFECTS TIZANIDINE HCL: HIVES - ALLERGY KETOROLAC TROMETHAMINE: STOMACH PAIN - ALLERGY TAPE ADHESIVE: RASH - SIDE EFFECTS SOCIAL HISTORY GENERAL: TOBACCO USE ARE YOU A:FORMER SMOKER HOW LONG HAS IT BEEN SINCE YOU LAST SMOKED?5-10 YEARS VAPORNO E-CIGARETTEYES LATEX QUESTIONNAIRE LATEX ALLERGY : HAVE YOU EVER DEVELOPED ANY TYPE OF REACTION AFTER HANDLING LATEX PRODUCTS SUCH RUBBER GLOVES, CONDOMS, DIAPHRAGMS, BALLOONS, SOCKS, OR UNDERWEAR?NO LATEX ALLERGY : HAVE YOU EVER DEVELOPED ANY TYPE OF REACTION DURING OR AFTER DENTAL APPOINTMENT, VAGINAL/RECTAL EXAMINATION, SURGICAL PROCEDURE, OR ANY OTHER EXPOSURE?NO LATEX RISK : HAVE YOU EVER HAD ANY DIFFICULTY BREATHING OR HIVES AFTER EATING OR HANDLING ANY FRUITS, OR VEGETABLES; SUCH KIWI, BANANAS, STONE FRUITS, OR CHESTNUTSNO LATEX RISK : DO YOU HAVE A PREVIOUS PERSONAL HISTORY OF MORE THAN NINE SURGERIES, SPINA BIFIDA, OR REPEATED CATHERIZATIONS? YES - PLEASE INDICATE : > 9 SURGERIES LATEX RISK : ARE YOU FREQUENTLY EXPOSED TO LATEX PRODUCTS IN YOUR OCCUPATION?NO DATE ASKED : 09/22/2020 ALCOHOL USE: NO. BMI CARE GOAL FOLLOW-UP ABOVE NORMAL BMI FOLLOW-UPLIFESTYLE EDUCATION REGARDING DIET ALCOHOL SCREENING DID YOU HAVE A DRINK CONTAINING ALCOHOL IN THE PAST YEAR?NO POINTS0 INTERPRETATIONNEGATIVE RECREATIONAL DRUG USE DRUG USE?NO CAFFEINE CAFFEINE USE?YES SEXUAL HX HAD SEX IN THE LAST 12 MONTHS (VAGINAL, ORAL, OR ANAL)?NO HAVE YOU EVER HAD AN STD?NO HIV / HEP-C SCREENING HIV TEST OFFERED TO PATIENT:YES DATE OFFERED:10/26/2017 TEST ACCEPTED:NO HEP-C TEST OFFERED TO PATIENT:NO REASON:PATIENT DECLINED BROCHURE PROVIDED TO PATIENTNO EPISCOPAL NO SABIANISM BELIEFS THAT WOULD IMPACT HEALTH CARE. LANGUAGE [employer] LEONEAN. 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 DIET: REGULAR. EXERCISE: NO REGULAR EXERCISE. MARITAL STATUS: .. OTHERS AT HOME: [id number], BROTHER, NEPHEW AND BOYFRIEND. - PFS REFERRAL NEEDED?NO CLERGY REFERRAL NEEDED?NO PUBLIC HEALTH REFERRAL NEEDED?NO HAS THE PATIENT BEEN EDUCATED REGARDING HIS/HER PLAN OF CARE?YES HAS THE PATIENT BEEN EDUCATED REGARDING PAIN, THE RISK FOR PAIN, THE IMPORTANCE OF EFFECTIVE PAIN MANAGEMENT, AND THE PAIN ASSESSMENT PROCESS?YES ADVANCE DIRECTIVE ADVANCE DIRECTIVE DISCUSSED WITH PATIENT:YES 02/02/2020 PT HAS NO ADVANCED DIRECTIVES, DECLINES HCP INFORMATION AND ASSISTANCE WITH FORM AT THIS TIME. REVIEW OF SYSTEMS CONSTITUTIONAL: ANY RECENT FEVER NO . CHILLS NO . WEIGHT CHANGE OF UNKNOWN REASONS NO . GASTROENTEROLOGY: NEW UNEXPLAINABLE CHANGES IN BOWEL CONTROL NO . CONSTIPATION NO . GENITOURINARY: ANY NEW CHANGE IN BLADDER CONTROL? NO . NEUROLOGY: NEW ONSET DIZZINESS OR NEUROLOGICAL CHANGES NOT MENTIONED NO . NEW NUMBNESS OR PAIN PATTERNS NOT MENTIONED AND PERTINENT TO TODAY'S VISIT NO . CARDIOLOGY: NEW CHEST PRESSURE NO . PATIENT DENIES NO . RESPIRATORY: UNEXPLAINABLE COUGH NO . NEW SHORTNESS OF BREATH NO . VITAL SIGNS WT 258.4 LBS, HT 61 IN, BMI 48.82 INDEX, BP 164/73 MM HG, HR 79 /MIN, RR 18 /MIN, TEMP 97.3 F, OXYGEN SAT % 98%, SAFE IN ENV? (Y/N) YES, NA INITIALS SC 08:51, REVIEWED BY: ANDREA RUSSO MA. EXAMINATION GENERAL EXAMINATION: GENERALNO ACUTE DISTRESS, WELL NOURISHED AND HYDRATED. PSYCHAPPROPRIATE MOOD AND AFFECT . LUNGS:CLEAR TO AUSCULTATION BILATERALLY, NO WHEEZES, RHONCHI, RALES. HEART:NO MURMURS, REGULAR RATE AND RHYTHM. ASSESSMENTS OTHER CHRONIC PAIN - G89.29 (PRIMARY) INTERVERTEBRAL DISC DISORDERS WITH RADICULOPATHY, LUMBOSACRAL REGION - M51.17 TREATMENT OTHER CHRONIC PAIN PAIN PROCEDURE LOGDATE OF [id number]/30/2021PROCEDURE:LUMBAR EPIDURAL STEROID INJECTIONAMOUNT OF PRE SEDATEVALIUM 10MG; OXYCODONE 10MGRESULT:PREPROCEDURE 10 OUT OF 10 POST PROCEDURE 6 OUT OF 10 ON THE LEFT SIDE. INTERVERTEBRAL DISC DISORDERS WITH RADICULOPATHY, LUMBOSACRAL REGION NOTES: 55-YEAR-OLD FEMALE IN FOR POST LUMBAR EPIDURAL STEROID INJECTION FOLLOW-UP. GIVEN PRESENTING SYMPTOMS RECOMMEND FOLLOW-UP WITH DR. MILLER TO DISCUSS POTENTIAL ALTERATIONS IN HER MEDICATION. PATIENT HAS EXPRESSED UNDERSTANDING OF AND WAS IN AGREEMENT WITH TREATMENT PLAN. GIVEN TIME TO ASK QUESTIONS AND EXPRESS CONCERNS. [employer] REGISTRY REVIEWED AND DEMONSTRATES COMPLLIANCE. (REF # [id number] ) BRINGS IN MEDICATIONS WHICH IS APPROPRIATE FOR WHAT WAS DISPENSED. RECENT URINE TOXICOLOGY REVIEWED. NO UNAUTHORIZED MEDICATIONS. NO ILLICIT SUBSTANCES AND PRESCRIBED MEDICATIONS WERE PRESENT. PROCEDURE CODES [id number] ESTABILISHED PATIENT [facility] CHARGE DISPOSITION & COMMUNICATION FOLLOW UP WITH DR. MILLER (REASON: MEDICATION OPTIONS ) ELECTRONICALLY SIGNED BY TRA ACOSTA ON 09/23/2020 AT 08:34 AM EDT DISCLAIMER : THIS IS A VISIT SUMMARY EXTRACTED FROM THE [employer] CHART. IT IS NOT A COPY OF THE [employer] PROGRESS NOTE. ASPEND
== END ==
LOC: M PAIN 09:00
PROVIDERS: ATTEND Family Medicine
DX: M51.17 Intervertebral disc disorders with radiculopathy, lumbosacral region (principal); G89.29 Other chronic pain; M79.7 Fibromyalgia; G43.909 Migraine, unspecified, not intractable, without status migrainosus; K21.9 Gastro-esophageal reflux disease without esophagitis; Z86.14 Personal history of Methicillin resistant Staphylococcus aureus infection; Z87.891 Personal history of nicotine dependence; Z88.1 Allergy status to other antibiotic agents; Z88.8 Allergy status to other drugs, medicaments and biological substances; Z91.09 Other allergy status, other than to drugs and biological substances; E66.01 Morbid (severe) obesity due to excess calories; Z68.42 Body mass index [BMI] 45.0-49.9, adult; Z79.01 Long term (current) use of anticoagulants; Z79.891 Long term (current) use of opiate analgesic; Z79.899 Other long term (current) drug therapy

== ENCOUNTER → 2020-10-08 | Outpatient (CLI) | payer OTHER ==
[~2020-10-08] MED LIST changes: +BELB75MI BUC; +BUPR10DI3 TOP; +DOXY-443 PO; -DOXY1CAP62 PO; +ELIQ5TAB; +KETO10TAB PO; -LATU40TA PO; +LATU40TA2 PO; +LIDO5DIS41 TOP; +METO50TA7; +MYRB50TA PO; -OMEP-221 PO; +OMEP40CA5 PO; +OXYB5TAB10; +TIZA10TA PO; -TIZA4TAB4 PO
== END ==
LOC: M PAIN 10:45
PROVIDERS: ATTEND Anesthesiology
DX: M51.16 Intervertebral disc disorders with radiculopathy, lumbar region (principal); Z79.891 Long term (current) use of opiate analgesic; M79.7 Fibromyalgia; G43.909 Migraine, unspecified, not intractable, without status migrainosus; F32.9 Major depressive disorder, single episode, unspecified; N39.3 Stress incontinence (female) (male); E78.5 Hyperlipidemia, unspecified; I48.91 Unspecified atrial fibrillation; K21.9 Gastro-esophageal reflux disease without esophagitis; G89.4 Chronic pain syndrome; E55.9 Vitamin D deficiency, unspecified; I10 Essential (primary) hypertension; Z87.891 Personal history of nicotine dependence; Z79.01 Long term (current) use of anticoagulants; Z79.899 Other long term (current) drug therapy; Z88.2 Allergy status to sulfonamides; Z88.8 Allergy status to other drugs, medicaments and biological substances; Z91.048 Other nonmedicinal substance allergy status

== ENCOUNTER → 2020-10-08 | Outpatient (CLI) | payer OTHER ==
[~2020-10-08] MED LIST changes: -BELB75MI BUC; -BUPR10DI3 TOP; -DOXY-443 PO; +DOXY1CAP62 PO; -ELIQ5TAB; -KETO10TAB PO; +LATU40TA PO; -LATU40TA2 PO; -LIDO5DIS41 TOP; -METO50TA7; -MYRB50TA PO; +OMEP-221 PO; -OMEP40CA5 PO; -OXYB5TAB10; -TIZA10TA PO; +TIZA4TAB4 PO
--- NOTE | 2020-10-08 13:50 | REP ---
INDICATION: INTERVERTEBRAL DISC DISORDERS W RADICULOPATHY, LUMBAR REGION. COMPARISON: 05/14/2017 TECHNIQUE: Complete lumbar spine views with flexion and extension bending lateral views. FINDINGS: The AP view shows pedicles, spinous and transverse processes grossly intact. Sacral ala and foramina unremarkable. The SI joints and visualized iliac bones intact. The lower thoracic levels and visualized ribs are unremarkable. There are right upper quadrant clips from prior cholecystectomy. Lateral view show minor hypertrophic facet changes at L4-5 and L5-S1. There is no spondylolysis or spondylolisthesis. Normal lordosis is maintained flexion extension views show better extension and flexion but no instability. IMPRESSION: 1. Mild facet arthropathy L4-5 L5-S1 without spondylolysis, spondylolisthesis, compression fracture or other acute bony finding. There is slight decreased range of motion with flexion adequate extension. No new or acute finding. <Electronically signed by Maicol Rush > 10/08/20 [id number]
== END ==
LOC: M RAD 13:14
PROVIDERS: ATTEND Anesthesiology
DX: M51.17 Intervertebral disc disorders with radiculopathy, lumbosacral region (principal)

== ENCOUNTER → 2020-10-15 | Outpatient (CLI) | payer OTHER ==
[~2020-10-15] MED LIST changes: +BELB75MI BUC; +BUPR10DI3 TOP; +DOXY-443 PO; -DOXY1CAP62 PO; +ELIQ5TAB; +KETO10TAB PO; -LATU40TA PO; +LATU40TA2 PO; +LIDO5DIS41 TOP; +METO50TA7; +MYRB50TA PO; -OMEP-221 PO; +OMEP40CA5 PO; +OXYB5TAB10; +TIZA10TA PO; -TIZA4TAB4 PO
== END ==
LOC: M PAIN 12:30
PROVIDERS: ATTEND Anesthesiology
DX: M51.16 Intervertebral disc disorders with radiculopathy, lumbar region (principal); G89.29 Other chronic pain; M79.7 Fibromyalgia; G43.909 Migraine, unspecified, not intractable, without status migrainosus; K21.9 Gastro-esophageal reflux disease without esophagitis; Z86.14 Personal history of Methicillin resistant Staphylococcus aureus infection; Z86.59 Personal history of other mental and behavioral disorders; Z87.891 Personal history of nicotine dependence; Z88.1 Allergy status to other antibiotic agents; Z88.6 Allergy status to analgesic agent; Z88.8 Allergy status to other drugs, medicaments and biological substances; Z79.01 Long term (current) use of anticoagulants; Z79.899 Other long term (current) drug therapy

== ENCOUNTER → 2020-10-20 | Outpatient (CLI) | payer OTHER ==
[~2020-10-20] MED LIST changes: -BELB75MI BUC; -BUPR10DI3 TOP; -DOXY-443 PO; +DOXY1CAP62 PO; -ELIQ5TAB; -KETO10TAB PO; +LATU40TA PO; -LATU40TA2 PO; -LIDO5DIS41 TOP; -METO50TA7; -MYRB50TA PO; +OMEP-221 PO; -OMEP40CA5 PO; -OXYB5TAB10; -TIZA10TA PO; +TIZA4TAB4 PO
== END ==
LOC: M LABSMTC 10:39
PROVIDERS: ATTEND Anesthesiology
DX: Z11.52 Encounter for screening for COVID-19 (principal)

== ENCOUNTER 2020-10-25 08:29 | Emergency (ER) | payer OTHER ==
[~2020-10-25] VITALS: Ht 157.5 cm; Wt 116.5 kg
--- NOTE | 2020-10-25 09:18 | REP ---
INDICATION: CHEST PAIN. COMPARISON: Comparison exam July 21, 2020. TECHNIQUE: Portable upright AP chest radiograph. FINDINGS: The lungs are well inflated and free of infiltrate. Pleural angles are sharp. Heart size is normal. Pulmonary vasculature is not increased. EKG monitoring electrodes are present. A loop recorder is seen projecting over the left heart. There is a pulmonary parenchymal granuloma in the right perihilar region unchanged. This is seen on June 16, 2020 CT study. IMPRESSION: No active disease. <Electronically signed by Abel Chao > 10/25/20 [id number]
[2020-10-25 09:35] LABS: BASO % 0.5 % (0.0-1.0); EOS # 0.1 10^3/uL (0.0-0.5); EOS % 1.3 % (0.0-3.0); HEMATOCRIT 42.8 % (36.0-47.0); LYMPH # 1.5 10^3/uL (1.5-5.0); LYMPH % 38.6 % (24.0-44.0); MEAN CORPUSCULAR HEMOGLOBIN 30.2 pg (27.0-33.0); MEAN CORPUSCULAR HGB CONC 32.7 g/dl (32.0-36.5); MEAN CORPUSCULAR VOLUME 92.2 fl (80.0-96.0); MONO # 0.4 10^3/uL (0.0-0.8); MONO % 10.5 % (2.0-8.0); NEUTROPHILS % 48.8 % (36.0-66.0); PLATELET COUNT, AUTOMATED 176 10^3/uL (150-450); RED BLOOD COUNT 4.64 10^6/uL (4.00-5.40)
[2020-10-25 09:50] LABS: INR 0.95; PROTHROMBIN TIME 13.1 SECONDS (12.7-14.5)
[2020-10-25 09:54] LABS: D-DIMER QUANT 445.29 ng/ml (<500)
[2020-10-25 10:03] LABS: ALBUMIN 3.3 GM/DL (3.2-5.2); ALT/SGPT 40 U/L (12-78); BILIRUBIN,TOTAL 0.3 MG/DL (0.2-1.0); BLOOD UREA NITROGEN 10 MG/DL (7-18); C REACTIVE PROTEIN QUANTITATIV 2.24 MG/DL (0.00-0.30); CALCIUM LEVEL 8.3 MG/DL (8.5-10.1); CARBON DIOXIDE LEVEL 27 MEQ/L (21-32); CHLORIDE LEVEL 109 MEQ/L (98-107); CK-MB VALUE MASS < 1.0 NG/ML (<3.6); CPK CREATINE PHOSPHOKINASE 70 U/L (26-192); CREATININE FOR GFR 0.95 MG/DL (0.55-1.30); FERRITIN 50 NG/ML (8-252); GLOMERULAR FILTRATION RATE > 60.0 (>51); GLUCOSE, FASTING 97 MG/DL (70-100); LDH LACTATE DEHYDROGENASE 225 U/L (84-246); MAGNESIUM LEVEL 2.2 MG/DL (1.8-2.4); MB/CK RELATIVE INDEX 1.43 (< OR =4); POTASSIUM SERUM 3.6 MEQ/L (3.5-5.1); SODIUM LEVEL 143 MEQ/L (136-145); TOTAL PROTEIN 6.7 GM/DL (6.4-8.2); TROPONIN I < 0.02 NG/ML (< 0.10)
[2020-10-25 12:15] VITALS: BP 168/91
--- NOTE | 2020-10-25 17:16 | ECGEPIP ---
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
[2020-10-26] MEDS ORDERED: BELB75MI (10:55)
[2020-10-26] MEDS ORDERED: LATU40TA (10:55)
[2020-10-26] MEDS ORDERED: ONDA4TAB6 PO (11:47)
== END 2020-10-25 12:29 | disposition home or self-care (01) ==
LOC: M ED 08:29
DX: U07.1 COVID-19 (principal); I48.91 Unspecified atrial fibrillation; I50.9 Heart failure, unspecified; E78.5 Hyperlipidemia, unspecified; K21.9 Gastro-esophageal reflux disease without esophagitis; I10 Essential (primary) hypertension; M54.9 Dorsalgia, unspecified; Z87.891 Personal history of nicotine dependence; Z79.01 Long term (current) use of anticoagulants; Z79.899 Other long term (current) drug therapy; Z88.0 Allergy status to penicillin; Z88.1 Allergy status to other antibiotic agents; Z88.8 Allergy status to other drugs, medicaments and biological substances; Z88.2 Allergy status to sulfonamides

== ENCOUNTER 2020-10-25 12:40 | Outpatient (CLI) | payer OTHER ==
[2020-10-25 12:35] VITALS: BP 125/65
[2020-10-25] MEDS ORDERED: diphenhydrAMINE 50MG/ML VIAL (J1200) IV PRN (12:45)
[2020-10-25] MEDS ORDERED: ALBUTEROL SULFATE 2.5 MG/0.5 ML INH NEB SOLN INH PRN (12:45)
[2020-10-25] MEDS ORDERED: EPINEPHrine INJ 1 MG/ML 1ML AMP IM PRN (12:45)
[2020-10-25] MEDS ORDERED: ALBUTEROL 90 MCG/ACT 8GM HFA INHALER INH PRN (12:45)
[2020-10-25] MEDS ORDERED: methylPREDNISolone 125MG 2ML VIAL IV PRN (12:45)
--- NOTE | 2020-10-25 13:33 | HPEPDOC ---
[facility] Medical History & Physical Date of Admission Oct 25, 2020 Date of Service: Oct 25, 2020 History and Physical Chief complaint: Patient presented to the ER because she was told she was COVID[address] Lee office History of present illness: Patient is a 55 year old female with a PMHx CAD, HTN, Paroxysmal A. fib (on Eliquis), DLP, Chronic back pain, Obesity, Migraine headaches, Anxiety / Depression / Seasonal affective disorder / Borderline personality disorder / Fibromyalgia, who presented to the emergency room, sent in by the pain management clinic. She was scheduled to receive a corticosteroid injection from the pain clinic today in preparation patient had a COVID19 test completed on 10/20/2020. Upon arrival to her procedure this morning patient was advised that her test was positive, at which point patient began experiencing chest pain and came to the ER for further evaluation. Patient reports a mild headache. Reports that shes been nauseous and vomiting for several days. Reports diarrhea. Denies any abdominal pain, or urinary discomfort. Denies any recent fevers or chills. Reports that she is experiencing chest pain, continuous sharp without any alleviating or aggravating factors. In the emergency room, patient has had an EKG that was consistent with priors and cardiac markers drawn which were negative. Patient has been advised that she would benefit from receiving monoclonal antibody therapy. Patient has agreed has signed consent and will be taken for infusion. Past Medical History: CAD, HTN, Paroxysmal A. fib (on Eliquis), DLP, Chronic back pain, Obesity, Migraine headaches, Anxiety / Depression / Seasonal affective disorder / Borderline personality disorder / Fibromyalgia Past Surgical History: Total abdominal hysterectomy Tubal ligation Cholecystectomy Incision and drainage of groin Allergies: See below Medications: See below Family History: - Family history of congestive heart failure Social History: - Patient reports that she quit smoking 10 years ago but was a smoker of many years. Denies use of alcohol or drugs - Denies recent travel or sick contacts - Patient reports that she has received both doses of Moderna vaccine - Lives alone - Occupation; patient is on disability Review of Systems: 10 point review of systems complete, all negative otherwise stated in HPI Physical exam: - Vitals: BP [125/65], HR [86], RR [20], Sat [98%RA], Temp [97.1F] - General: Lying in bed, Speaking in full sentences, AAOx3 - HEENT: NC, AT, PERRLA - CVS: RRR, +S1S2 - Lungs: Fair air entry bilaterally, No appreciable wheezing / rales / rhonchi - Abdomen: Soft, Non-distended, Non-tender - Extremities: No lower extremity edema, No calf tenderness - Neuro: No focal motor or sensory deficit - Skin: No visible rashes Labs: See below Imaging: CXR 10/25: No active disease. EKG: See below Assessment and Plan: Acute COVID19 infection - Patient is reported a 2 day history of nausea, vomiting, diarrhea and she reports chest tightness - Patient is saturating well on room air - Lab work has remained benign without any significant elevation of inflammatory markers. D-dimer is negative - COVID 19 positive on 10/20/2020; patient reports that she was not informed of the results - Imaging noted above without any acute disease - Will provide outpatient infusion of monoclonal antibodies given her risk fa ctors - Patient has been advised of the risks of receiving monoclonal antibodies including but not limited to allergic/anaphylactic reactions - Patient has agreed with risk and has signed consent paperwork - After receiving monoclonal antibody fusion. Patient will be discharged home with outpatient follow-up with her primary care provider and home services CAD - c/w Metoprolol and Eliquis HTN - Blood pressure currently is well controlled - Continue with metoprolol on discharge Paroxysmal A. fib (on Eliquis) - Patient is currently rate controlled in sinus rhythm - Will continue with metoprolol - Will continue with Eliquis; patient has stopped taking Eliquis for the last 4 days in anticipation of procedure - Patient has been advised to resume Eliquis as procedure will be rescheduled for a later date Chronic back pain - c/w Tylenol / Buprenorphine Outpatient regimen - Patient follows with a pain management clinic - She will require rescheduling of her outpatient corticosteroid injection Obesity - Complicating medical care Migraine headaches - c/w Tylenol Anxiety / Depression / Seasonal affective disorder / Borderline personality disorder / Fibromyalgia - Will continue with home medications on discharge - Will have outpatient follow-up with primary care provider within the next 7 days GERD - c/w Omeprazole / Carafate on discharge DVT prophylaxis - Will c/w early ambulation Vital Signs Vital Signs Date Time Temp Pulse Resp B/P (MAP) Pulse Ox O2 Delivery O2 Flow Rate FiO2 10/25/20 12:35 97.1 86 20 125/65 (85) 98 Room Air Home Medications Scheduled Apixaban (Eliquis) 5 Mg Tablet, 5 MG PO BID for . 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 LAST FILLED 02/19/19 Sucralfate (Sucralfate) 1 Gm Tablet, 1 GM PO BID for Gastritis Tolnaftate (Tolnaftate) 30 Gm Cream..g., 1 APLCT TOP BID Scheduled PRN Meclizine HCl (Meclizine HCl) 25 Mg Tablet, 25 MG PO TID PRN for DIZZINESS Ondansetron (Ondansetron Odt) 4 Mg Tab.rapdis, 1 TAB PO Q6-8HP PRN for nausea/vomiting Promethazine HCl (Promethazine HCl) 25 Mg Tablet, 1 TAB PO Q6HP PRN for nausea/vomiting Miscellaneous Medications Buprenorphine (Buprenorphine) 10 Mcg/Hr Patch.tdwk, 1 PATCH Allergies Coded Allergies: pregabalin (Verified Allergy, Severe, Angioedema, 12/14/19) diclofenac (Verified Allergy, Intermediate, swelling all over body, ) PATIENT STATES SHE CAN TOLERATE KETOROLAC sorbitan esters (Verified Allergy, Unknown, from zipsoragitation, 12/14/19) buprenorphine (Verified Adverse Reaction, Intermediate, "SICK", 12/14/19) bupropion (Verified Adverse Reaction, Intermediate, increased tremors, 12/14/19) clindamycin (Verified Adverse Reaction, Intermediate, vomiting swelling, 08/03/20) cyclobenzaprine (Verified Adverse Reaction, Intermediate, agitation, 12/14/19) naloxone (Verified Adverse Reaction, Intermediate, "SICK", 12/14/19) amoxicillin (Verified Adverse Reaction, Mild, VOMITING, 12/14/19) clavulanic acid (Verified Adverse Reaction, Mild, VOMITING, 12/14/19) doxycycline (Verified Adverse Reaction, Mild, vomiting, 12/14/19) sulfamethoxazole (Verified Adverse Reaction, Mild, vomiting, 12/14/19) trimethoprim (Verified Adverse Reaction, Mild, VOMITING, 12/14/19) PAMELA SCOTT MD Oct 25, 2020 13:33
[2020-10-25] MEDS ORDERED: ACETAMINOPHEN TAB 650MG DOSE (2X325MG) PO ONE (14:30)
[2020-10-25] MEDS ORDERED: CASIRIVIMAB/IMDEVIMAB 1,200 MG in NS 250 ML IV ONE (15:00)
[2020-10-25] MEDS ORDERED: SOTROVIMAB 500 MG in NS 100 ML IV ONE (16:00)
[2020-10-25 16:51] VITALS: BP 125/65
[2020-10-26] MEDS ORDERED: LATU40TA (10:55)
[2020-10-26] MEDS ORDERED: BELB75MI (10:55)
[2020-10-26] MEDS ORDERED: ONDA4TAB6 PO (11:47)
== END 2020-10-25 18:20 | disposition home or self-care (01) ==
LOC: M OPCLI4 12:40 → M 4MAIN 12:41 → M OPCLI4 18:20
PROVIDERS: ATTEND Internal Medicine
DX: U07.1 COVID-19 (principal); Z88.1 Allergy status to other antibiotic agents; Z88.2 Allergy status to sulfonamides; Z88.8 Allergy status to other drugs, medicaments and biological substances

== ENCOUNTER 2020-10-26 10:16 | Emergency (ER) | payer OTHER ==
[2020-10-26] MEDS ORDERED: BELB75MI (10:55)
[2020-10-26] MEDS ORDERED: LATU40TA (10:55)
[2020-10-26 10:59] VITALS: O2SAT 98
[2020-10-26 11:46] VITALS: BP 168/85
[2020-10-26] MEDS ORDERED: ONDA4TAB6 PO (11:47)
== END 2020-10-26 12:05 | disposition home or self-care (01) ==
LOC: M ED 10:16 → EDBD 10:16 → M ED 12:05
DX: U07.1 COVID-19 (principal); F06.4 Anxiety disorder due to known physiological condition; I11.0 Hypertensive heart disease with heart failure; I50.9 Heart failure, unspecified; J44.9 Chronic obstructive pulmonary disease, unspecified; E78.5 Hyperlipidemia, unspecified; Z88.1 Allergy status to other antibiotic agents; Z88.8 Allergy status to other drugs, medicaments and biological substances

== ENCOUNTER 2020-11-11 08:40 | Emergency (ER) | payer OTHER ==
[~2020-11-11] VITALS: Ht 157.5 cm; Wt 119.2 kg
[~2020-11-11 08:40] MED LIST changes: +BELB75MI BUC; +DOXY-443 PO; -DOXY1CAP62 PO; +TIZA10TA PO; -TIZA4TAB4 PO
[2020-11-11] MEDS ORDERED: PERCOCET 5MG/325MG TAB PO ONE (09:10)
[2020-11-11] MEDS ORDERED: OXYB5TAB10 (09:27)
[2020-11-11 09:34] LABS: BASO % 0.4 % (0.0-1.0); EOS # 0.1 10^3/uL (0.0-0.5); EOS % 2.1 % (0.0-3.0); HEMATOCRIT 39.8 % (36.0-47.0); HEMOGLOBIN 13.2 g/dl (12.0-15.5); LYMPH % 39.4 % (24.0-44.0); MEAN CORPUSCULAR HGB CONC 33.2 g/dl (32.0-36.5); MEAN CORPUSCULAR VOLUME 93.4 fl (80.0-96.0); MONO # 0.5 10^3/uL (0.0-0.8); MONO % 8.8 % (2.0-8.0); NEUTROPHILS # 2.5 10^3/uL (1.5-8.5); NEUTROPHILS % 48.9 % (36.0-66.0); PLATELET COUNT, AUTOMATED 164 10^3/uL (150-450); RED BLOOD COUNT 4.26 10^6/uL (4.00-5.40); WHITE BLOOD COUNT 5.1 10^3/uL (4.0-10.0)
[2020-11-11 10:08] LABS: ALBUMIN 2.9 GM/DL (3.2-5.2); ALT/SGPT 33 U/L (12-78); BILIRUBIN,TOTAL 0.4 MG/DL (0.2-1.0); BLOOD UREA NITROGEN 11 MG/DL (7-18); C REACTIVE PROTEIN QUANTITATIV 0.74 MG/DL (0.00-0.30); CALCIUM LEVEL 8.6 MG/DL (8.5-10.1); CARBON DIOXIDE LEVEL 24 MEQ/L (21-32); CHLORIDE LEVEL 112 MEQ/L (98-107); CPK CREATINE PHOSPHOKINASE 96 U/L (26-192); CREATININE FOR GFR 0.99 MG/DL (0.55-1.30); GLOMERULAR FILTRATION RATE > 60.0 (>51); GLUCOSE, FASTING 80 MG/DL (70-100); POTASSIUM SERUM 4.4 MEQ/L (3.5-5.1); SODIUM LEVEL 142 MEQ/L (136-145)
[2020-11-11 13:46] VITALS: BP 118/58
[2021-03-24] MEDS ORDERED: MYRB50TA PO (10:46)
[2021-03-24] MEDS ORDERED: BUPR10DI3 TOP (10:52)
== END 2020-11-11 13:48 | disposition home or self-care (01) ==
LOC: M ED 08:40
DX: S93.402A Sprain of unspecified ligament of left ankle, initial encounter (principal); W19.XXXA Unspecified fall, initial encounter; Y92.9 Unspecified place or not applicable; Y93.9 Activity, unspecified; Y99.9 Unspecified external cause status; I48.91 Unspecified atrial fibrillation; I25.10 Atherosclerotic heart disease of native coronary artery without angina pectoris; G43.909 Migraine, unspecified, not intractable, without status migrainosus; M79.7 Fibromyalgia; M54.5 Low back pain; Z87.891 Personal history of nicotine dependence; Z79.01 Long term (current) use of anticoagulants; Z79.899 Other long term (current) drug therapy; Z88.0 Allergy status to penicillin; Z88.1 Allergy status to other antibiotic agents; Z88.8 Allergy status to other drugs, medicaments and biological substances

== ENCOUNTER 2020-11-18 12:16 | Emergency (ER) | payer OTHER ==
[~2020-11-18] VITALS: Ht 157.5 cm; Wt 119.5 kg
[~2020-11-18 12:16] MED LIST changes: +BELB75MI; -BELB75MI BUC; -DOXY-443 PO; +DOXY1CAP62 PO; +LATU40TA; +OXYB5TAB10; -TIZA10TA PO; +TIZA4TAB4 PO
[2020-11-18] MEDS ORDERED: LIDOCAINE 5% (LIDODERM) PATCH TD ONE (17:10)
[2020-11-18] MEDS ORDERED: ACETAMINOPHEN 500 MG TAB PO ONE (17:10)
--- NOTE | 2020-11-18 17:46 | REP ---
INDICATION: fall onto left side, left shoulder and hip pain. COMPARISON: None. TECHNIQUE: Three views of the left shoulder were performed. FINDINGS: The acromioclavicular and glenohumeral relationships are within normal limits. There is no acute fracture or destructive osseous lesion. IMPRESSION: No acute abnormality <Electronically signed by Jt De Leon > 11/18/20 3522
--- NOTE | 2020-11-18 17:48 | REP ---
INDICATION: fall onto left side, left shoulder and hip pain. COMPARISON: 03/02/2018 TECHNIQUE: AP and frog-lateral views FINDINGS: There is no change from the prior exam. There is no acute fracture, dislocation, or subluxation. IMPRESSION: No change from 03/02/2018 <Electronically signed by Jt De Leon > 11/18/20 1748
--- NOTE | 2020-11-18 18:15 | REPVR ---
PROCEDURE INFORMATION: Exam: CT Head Without Contrast Exam date and time: 11/18/2020 5:31 PM Age: 55 years old Clinical indication: Injury or trauma; Fall; Blunt trauma (contusions or hematomas); Additional info: Multiple falls in past week. On anticoagulants TECHNIQUE: Imaging protocol: Computed tomography of the head without contrast. Radiation optimization: All CT scans at this facility use at least one of these dose optimization techniques: automated exposure control; mA and/or kV adjustment per patient size (includes targeted exams where dose is matched to clinical indication); or iterative reconstruction. COMPARISON: CT Head without contrast 12/23/2019 8:34 PM FINDINGS: Brain: No hemorrhage. Unremarkable white matter for the patient's age. No mass effect. No evolving territorial infarct. Cerebral ventricles: No ventriculomegaly. Paranasal sinuses: Retention cyst or polyp in the right maxillary sinus. Mastoid air cells: Visualized mastoid air cells are well aerated. Bones/joints: Unremarkable. No acute fracture. Soft tissues: Unremarkable. IMPRESSION: No acute intracranial abnormality seen. Electronically signed by: Maribel Wilkins On 11/18/2020 18:15:26 PM
[2020-11-18] MEDS ORDERED: LIDO5DIS41 TOP (18:22)
[2020-11-18 18:28] VITALS: BP 142/80
[2020-11-18] MEDS ORDERED: **NOTE PATIENT COMMENT** MISC XX SCH (21:00)
== END 2020-11-18 18:31 | disposition home or self-care (01) ==
LOC: M ED 12:16
DX: R29.6 Repeated falls (principal); S40.012A Contusion of left shoulder, initial encounter; W19.XXXA Unspecified fall, initial encounter; Y92.9 Unspecified place or not applicable; Y93.9 Activity, unspecified; Y99.9 Unspecified external cause status; I48.91 Unspecified atrial fibrillation; I50.9 Heart failure, unspecified; I25.2 Old myocardial infarction; J44.9 Chronic obstructive pulmonary disease, unspecified; M79.7 Fibromyalgia; F41.9 Anxiety disorder, unspecified; F31.9 Bipolar disorder, unspecified; F44.5 Conversion disorder with seizures or convulsions; Z79.01 Long term (current) use of anticoagulants; Z79.899 Other long term (current) drug therapy; Z88.0 Allergy status to penicillin; Z88.1 Allergy status to other antibiotic agents; Z88.8 Allergy status to other drugs, medicaments and biological substances

== ENCOUNTER → 2020-12-10 | Outpatient (CLI) | payer OTHER ==
[~2020-12-10] MED LIST changes: +LIDO5DIS41 TOP
== END ==
LOC: M PAIN 09:45
PROVIDERS: ATTEND Anesthesiology
DX: M51.16 Intervertebral disc disorders with radiculopathy, lumbar region (principal); M79.7 Fibromyalgia; G43.909 Migraine, unspecified, not intractable, without status migrainosus; F32.9 Major depressive disorder, single episode, unspecified; E78.5 Hyperlipidemia, unspecified; E55.9 Vitamin D deficiency, unspecified; I48.91 Unspecified atrial fibrillation; K21.9 Gastro-esophageal reflux disease without esophagitis; G89.4 Chronic pain syndrome; I10 Essential (primary) hypertension; R26.81 Unsteadiness on feet; Z86.16 Personal history of COVID-19; N39.3 Stress incontinence (female) (male); Z87.891 Personal history of nicotine dependence; Z79.01 Long term (current) use of anticoagulants; Z79.899 Other long term (current) drug therapy; Z88.8 Allergy status to other drugs, medicaments and biological substances; Z91.048 Other nonmedicinal substance allergy status

== ENCOUNTER → 2021-01-07 | Outpatient (CLI) | payer OTHER ==
[~2021-01-07] MED LIST changes: -BELB75MI; +BELB75MI BUC; +DOXY-443 PO; -DOXY1CAP62 PO; -LATU40TA
== END ==
LOC: M PAIN 10:30
PROVIDERS: ATTEND Anesthesiology
DX: M51.16 Intervertebral disc disorders with radiculopathy, lumbar region (principal); G89.29 Other chronic pain; M79.7 Fibromyalgia; G43.909 Migraine, unspecified, not intractable, without status migrainosus; K21.9 Gastro-esophageal reflux disease without esophagitis; Z86.14 Personal history of Methicillin resistant Staphylococcus aureus infection; Z86.59 Personal history of other mental and behavioral disorders; Z87.891 Personal history of nicotine dependence; Z88.1 Allergy status to other antibiotic agents; Z88.6 Allergy status to analgesic agent; Z88.8 Allergy status to other drugs, medicaments and biological substances; Z91.09 Other allergy status, other than to drugs and biological substances; E66.01 Morbid (severe) obesity due to excess calories; Z68.42 Body mass index [BMI] 45.0-49.9, adult; Z79.01 Long term (current) use of anticoagulants; Z79.891 Long term (current) use of opiate analgesic; Z79.899 Other long term (current) drug therapy

== ENCOUNTER → 2021-01-19 | Outpatient (CLI) | payer OTHER | LOC: M LABSMTC 12:32 | PROVIDERS: ATTEND Anesthesiology | DX: Z01.818 Encounter for other preprocedural examination (principal); Z11.52 Encounter for screening for COVID-19 ==

== ENCOUNTER 2021-01-24 06:40 | Day surgery (SDC) | payer OTHER ==
[~2021-01-24] VITALS: Ht 157.5 cm; Wt 117.8 kg
[~2021-01-24 06:40] MED LIST changes: +LR 1,000 ML IV ONE
--- OUTSIDE RECORDS SUMMARY | 2021-01-24 06:46 | CCD ---
Author Author [facility] Organization [facility] Address Unknown Phone Unavailable Care Team Providers Care Psych Coordinator Name Role Phone Jackson Iqbal Unavailable PROBLEMS Type Condition ICD9-CM Code CSH69-AM Code Onset Dates Condition S tatus W/U Status Risk SNOMED Code Notes Problem Fibromyalgia M79.7 Active confirmed 9726244 7 Problem Sacroiliitis, not elsewhere classified M46.1 A ctive confirmed 200185066 Problem Myalgia M79.1 Active confirmed 52749408 Problem Anxiety disorder, unspecified F41.9 Active confirm ed 888061227 Problem Anxiety F41.9 Active confirmed 26457613 Problem Essential hypertension I10 Active confirmed 97351081 Problem Major depressive disorder, single episode, unspecified F32.9 Active confirmed 99403783 Problem Other chronic pain G89.29 Active confirmed 8 8284723 Problem Myalgia, other site M79.18 Active confirmed 33494819 Problem Hyperlipidemia E78.5 Active confirmed 78410 004 Problem Overflow incontinence N39.490 Active confirmed 424414161 Problem Chronic GERD K21.9 Active confirmed 6516567 09 Problem Chest pain, unspecified type R07.9 Active confirme d 83246534 Problem Spondylosis of lumbar region without myelopathy or radiculopathy M47.816 Active confirmed 30960872 Problem Lumbar facet arthropathy M46.96 Active confirmed 372681322 Problem Spondylosis of lumbosacral joint without myelopathy M47.817 Active confirmed 41020133 Problem Spondylosis of lumbosacral region without myelop athy or radiculopathy M47.817 Active confirmed 17509989 Problem Chronic venous hypertension (idiopathic) with ulcer of right lower extremity I87.311 Active confirmed 809193570 Problem Non-pressure chronic ulcer o f other part of right lower leg with fat layer exposed L97.812 Active confirmed 281155304 Problem Low back pain M54.5 Active confirmed 079652 009 Problem Spondylosis without myelopathy or radiculopathy, lumbar region M47.816 Active confirmed 667297175 Problem Spondylosis without myelopathy or radiculopathy, lumbosacral region M47.817 Active confirmed 06765821 Problem Urge incontinence N39.41 Active confirmed 87 569096 Problem Paroxysmal atrial fibrillation I48.0 Active confir med 670165593 Problem Overactive bladder N32.81 Active confirmed 7 94832711 Problem Degenerative joint disease i nvolving multiple joints on both sides of body M15.9 Active confirmed 307586902 Problem Contact dermatitis, unspecif ied contact dermatitis type, unspecified trigger L25.9 Active confirmed 02039367 Problem History of tachycardia Z87.898 Active confirmed 054656052 Problem History of angina Z86.79 Active confirmed 16 7498043 Problem Obesity without serious sp rbidity, unspecified classification, unspecified obesity type E66.9 Active confirmed 06976 6001 Problem Stress incontinence N39.3 Active confirmed 80371929 ALLERGIES Allergen (clinical drug ingredient) Drug/Non Drug Allergy do cumented on EMR Reaction Allergy Type Onset Date Status Tape adhesive Rash Non Drug Allergy Activ e pregabalin Lyrica(NDC Code:[address]-00) Anaphylaxis Drug Allergy Active cymbalta nausea/vomiting Non Drug Allergy Act lonny tizanidine Tizanidine HCl(NDC Code:[address]-65) Hives Drug All ergy Active zipsor swelling,hives Non Drug Allergy Acti ve gabapentin Gabapentin(NDC Code:[address]-76) hallucinations Drug All ergy Active Flexeril aggitation Drug Allergy Active diclofenac Diclofenac Potassium(NDC Code:[address]-49) agg itation (zipsor) Drug Allergy Active Amitriptyline amitriptyline aggitation Non Drug Allergy Ac tive ketorolac Ketorolac Tromethamine(NDC Code:[address]-49) s tomach pain Drug Allergy Active sulfamethoxazole / trimethoprim Bactrim(NDC Code:[address]-46) Nausea/Vomiting Drug Allergy Active ENCOUNTERS from 1965 to 2020-12-18 Encounter Location Date Provider Diagnosis [facility] [address] [phone] [place] [address] Dec, Jackson Iqbal Urge incontinence N39.41 ; Overactive bl adder N32.81 ; Stress incontinence N39.3 and Obesity without serious comorbidity, unspecified classification, unspecified obesity type E66.9 IMMUNIZATIONS Vaccine Route Administration Date Status Benadryl 50mg/1mL (Diphenhydramine) IM Intramuscular Dec 05 Administered Pneumococcal Adult 0.5mL Pneumovax 23 IM Intramuscular June 02, 2015 Administered Influenza 6mo & up Fluzone Unknown Feb 05, 2017 Refus ed Influenza 6mo & up Fluzone IM Intramuscular Dec 17, 2015 Admi nistered Influenza 6mo & up Fluzone Unknown Apr 18, 2014 Refus ed SOCIAL HISTORY Tobacco Use: Social History Observation Description Date Details (start date - stop date) Former Smoker Sex Assigned At : Social History Observation Description Sex Assigned At Unknown Sexual Hx: Question Answer Notes Had sex in the last 12 months (vaginal, oral, or anal)? No Have you ever had an STD? No Alcohol Screening: Question Answer Notes Did you have a drink containing alcohol in the past year? No Points 0 Interpretation Negative BMI Care Goal Follow-Up Question Answer Notes Above Normal BMI Follow-Up Lifestyle education regarding t Tobacco Use: Question Answer Notes Are you a: former smoker How long has it been since you last smoked? 5-10 years REASON FOR REFERRAL No Information VITAL SIGNS Weight 263 lbs Dec, Weight-kg 119.3 kg Dec, Height 61 in Dec, BMI 49.69 kg/m2 Dec, Heart Rate 86 /min Dec, Respiratory Rate 18 /min Dec, Temperature 98.0 degrees Fahrenheit Dec, Oximetry 98 Dec, Blood pressure systolic 144 mm Hg Dec, Blood pressure diastolic 86 mm Hg Dec, MEDICATIONS Medication SIG (Take, Route, Frequency, Duration) Notes Start Da te End Date Status Myrbetriq 50 MG 1 tablet Orally Once a day for 30 day(s) 0 Dec, Active May Use - CBD oil0(OTC) 2 gtts orally pt takes on her own as needed Not-Taking Robaxin 500 MG 1.5 tablets Orally every 4 hrs for 30 day(s) Nov, Not-Taking Nitroglycerin 0.4 MG as directed Sublingual Every 5 min: MDD 3 tablets for 30 day(s) Nov, Active Belbuca 150 MCG 1 film to the gum Bucally Once a day for 30 days Apr, Not-Taking Butrans 20 MCG/HR 1 patch to skin Transdermal 1 patch q7 d ays=MDD for 30 Days 09/07Apr, Not-Taking PARoxetine HCl 30 MG 1 tablet in the morning Orally Once a day f or 90 days Feb, Not-Taking Belbuca 150 MCG 1 film to the gum Bucally bid MDD2 for 30 days Dec, Active HYDROcodone-Acetaminophen 5-325 MG 1 tablet as needed Orally for pain Daily MDD1 Sep, Not-Taking Eliquis 5 MG 1 tab(s) Orally twice daily for 90 days Active Sucralfate 1 GM 1 tablet Orally Twice a day Active Baclofen 5 MG 1 tablet with food or milk Orally Three times a day for 30 days Dec, Not-Taking Skelaxin 800 MG 1 tablet Orally three times daily as needed Not-Taking Protonix 40 MG 1 tablet Orally bid for 30 day(s) Jan, 017 Active Metaxalone 800 MG 1 tablet Orally as needed fo r spasms and pain Three times a day MDD3 for 30 days Jan, Not-Taking tiZANidine HCl 2 MG 1 tablet as needed Orally Three times a day Not-Taking Metoprolol Succinate 100 MG 1 capsule Orally Once a day Active Carisoprodol 350 MG 1 tablet as needed Orally Daily for 30 days Feb, Not-Taking Furosemide 20 MG 1 tablet Orally Once a day for 30 day(s) Not-Taking PROCEDURES No Information RESULTS No Results REASON FOR VISIT overflow incontinence of urine MEDICAL (GENERAL) HISTORY Type Description Date Medical History Fibromyalgia dx 4 years ago, being follo wed at pain clinic Medical History migraine headache Medical History stress incontinence Medical History Depression Medical History hyperlipidemia Medical History vitamin d deficiency Medical History afib Medical History gerd Medical History intermittent a fib Medical History Stress incontinence, Female Medical History Chronic pain syndrome Medical History Unspecified vitamin D deficiency Medical History Migraine, unspecified withou t mention of intractable migraine without mention of status migrainosus Medical History hypertension Medical History CONGESTIVE HEART FAILURE PER ED DOC-07/09/2019- PT STATES SHE HAS SEEN DR CASTILLO SINCE AND IS CLEARED FROM THAT CHF EPISODE Medical History Unsteady Gait Medical History Low Back Pain Medical History COVID + OCTOBER 2020 Surgical History Tubal ligation 1987 Surgical History distal 4th finger repair secondary to tr aumatic injury Surgical History benign tumor removal right leg Surgical History Dental surgeries Surgical History cholecystectomy 05/2014 Surgical History hysterectomy still has 1 ovary but not s ure which one 2012 Surgical History abscess R groin 2014 Surgical History loop recorder 10/2018 Surgical History LEFT SHOULDER REPAIR 02/20/19 Hospitalization History above surgeries Hospitalization History MRSA right groin 2014, C diff 2014 Hospitalization History chest pain 10/20/2016 Hospitalization History [facility] 09/2017 Hospitalization History Diverticulitis and /hypotension 06/29 18 Hospitalization History syncope 09/2018 Hospitalization History a-fib and loop recorder 10/2018 Goals Section No Information Health Concerns No Information MEDICAL EQUIPMENT No Information MENTAL STATUS No Information FUNCTIONAL STATUS No Information ASSESSMENTS Encounter Date Diagnosis Assessment Notes Treatment Notes Treatm ent Clinical Notes Dec, Urge incontinence (ICD-10 - N39.41) Dec, Overactive bladder (ICD-10 - N32.81) Dec, Stress incontinence (ICD-10 - N39.3) Dec, Obesity without serious sp rbidity, unspecified classification, unspecified obesity type (ICD-10 - E66.9) PLAN OF TREATMENT Medication Medication Name Sig Start Date Stop Date Myrbetriq 50 MG 1 tablet Orally Once a day for 30 day(s) Dec, Next Appt Details Local cystoscopy Reason:Incontinence Provider Name:Jesus Olmos, 2021-01-07 10:30:00 AM, [address], , [place], [address], Provider Name:Jackson Iqbal, 8 10:00:00 AM, [address], , [place], [address], Follow Up:Local cystoscopyIncontinence Insurance Providers Payer Name Payer Address Payer Phone Insured Name Patient Relati onship to Insured Coverage Start Date Coverage End Date [facility] [employer] [facility] [address] [facility] [phone] SMITH VIVEROS self
--- OUTSIDE RECORDS SUMMARY | 2021-01-24 06:46 | CCD ---
Author Author [facility] Organization [facility] Address Unknown Phone Unavailable Care Team Providers Care Neonatal Critical Care Nurse Name Role Phone Jackson Iqbal Unavailable PROBLEMS Type Condition ICD9-CM Code MMF19-OR Code Onset Dates Condition S tatus W/U Status Risk SNOMED Code Notes Problem Fibromyalgia M79.7 Active confirmed 1421579 7 Problem Sacroiliitis, not elsewhere classified M46.1 A ctive confirmed 986465165 Problem Myalgia M79.1 Active confirmed 25310684 Problem Anxiety disorder, unspecified F41.9 Active confirm ed 711623300 Problem Anxiety F41.9 Active confirmed 42183906 Problem Essential hypertension I10 Active confirmed 89765483 Problem Major depressive disorder, single episode, unspecified F32.9 Active confirmed 50242071 Problem Other chronic pain G89.29 Active confirmed 8 2265422 Problem Myalgia, other site M79.18 Active confirmed 51117600 Problem Hyperlipidemia E78.5 Active confirmed 90578 004 Problem Overflow incontinence N39.490 Active confirmed 431963416 Problem Chronic GERD K21.9 Active confirmed 7302503 09 Problem Chest pain, unspecified type R07.9 Active confirme d 19321594 Problem Spondylosis of lumbar region without myelopathy or radiculopathy M47.816 Active confirmed 85871030 Problem Lumbar facet arthropathy M46.96 Active confirmed 768590322 Problem Spondylosis of lumbosacral joint without myelopathy M47.817 Active confirmed 05648403 Problem Spondylosis of lumbosacral region without myelop athy or radiculopathy M47.817 Active confirmed 22642055 Problem Chronic venous hypertension (idiopathic) with ulcer of right lower extremity I87.311 Active confirmed 401279895 Problem Non-pressure chronic ulcer o f other part of right lower leg with fat layer exposed L97.812 Active confirmed 006622307 Problem Low back pain M54.5 Active confirmed 442767 009 Problem Spondylosis without myelopathy or radiculopathy, lumbar region M47.816 Active confirmed 338649292 Problem Spondylosis without myelopathy or radiculopathy, lumbosacral region M47.817 Active confirmed 88933476 Problem Urge incontinence N39.41 Active confirmed 87 900189 Problem Paroxysmal atrial fibrillation I48.0 Active confir med 213372743 Problem Overactive bladder N32.81 Active confirmed 7 05571668 Problem Degenerative joint disease i nvolving multiple joints on both sides of body M15.9 Active confirmed 196801680 Problem Contact dermatitis, unspecif ied contact dermatitis type, unspecified trigger L25.9 Active confirmed 98726124 Problem History of tachycardia Z87.898 Active confirmed 307586039 Problem History of angina Z86.79 Active confirmed 16 8552867 Problem Obesity without serious sp rbidity, unspecified classification, unspecified obesity type E66.9 Active confirmed 21214 6001 Problem Stress incontinence N39.3 Active confirmed 72939613 ALLERGIES Allergen (clinical drug ingredient) Drug/Non Drug Allergy do cumented on EMR Reaction Allergy Type Onset Date Status Diclofenac Potassium aggitation (zipsor) Drug Allergy Active pregabalin Lyrica(NDC Code:[address]-52) Anaphylaxis Drug Allergy Active duloxetine Cymbalta(NDC Code:[address]-88) nausea/vomiting Drug Jaleel rgy Active tizanidine Tizanidine HCl(NDC Code:[address]-04) Hives Drug All ergy Active diclofenac Zipsor(NDC Code:[address]-64) swelling,hives Drug Allergy Active gabapentin Gabapentin(NDC Code:[address]-38) hallucinations Drug All ergy Active Flexeril aggitation Drug Allergy Active amitriptyline Amitriptyline HCl(NDC Code:[address]-01) aggitation Drug Allergy Active sulfamethoxazole / trimethoprim Bactrim(NDC Code:[address]-00) Nausea/Vomiting Drug Allergy Active ketorolac Ketorolac Tromethamine(NDC Code:[address]-82) s tomach pain Drug Allergy Active Adhesive Rash Drug Allergy Active ENCOUNTERS from 1965 to 2021-01-06 Encounter Location Date Provider Diagnosis [facility] [address] [phone] [place] [address] Dec, Jackson Iqbal IMMUNIZATIONS Vaccine Route Administration Date Status Benadryl 50mg/1mL (Diphenhydramine) IM Intramuscular Dec 05 17 Administered Pneumococcal Adult 0.5mL Pneumovax 23 IM [...] REASON FOR REFERRAL No Information VITAL SIGNS No information MEDICATIONS Medication SIG (Take, Route, Frequency, Duration) Notes Start Da te End Date Status Myrbetriq 50 MG 1 tablet Orally Once a day for 30 day(s) 0 7 Dec, 2020 Active May Use - CBD oil0(OTC) 2 [...] Information RESULTS No Results REASON FOR VISIT cysto appt MEDICAL (GENERAL) HISTORY Type Description Date Medical [...] above surgeries Hospitalization History MRSA right groin 2015, C diff 2014 Hospitalization History chest pain 10/20/2016 Hospitalization History [facility] 09/2017 Hospitalization History Diverticulitis and /hypotension 06/29 18 Hospitalization History syncope 09/2018 Hospitalization History a-fib and loop recorder 10/2018 Goals Section No Information Health Concerns No Information MEDICAL EQUIPMENT No Information MENTAL STATUS No Information FUNCTIONAL STATUS No Information ASSESSMENTS No Information PLAN OF TREATMENT Medication Medication Name Sig Start Date Stop Date Myrbetriq 50 MG 1 tablet Orally Once a day for 30 day(s) Dec, Next Appt Details Provider Name:Jesus Olmos, 2021-01-07 10:30:00 AM, [address] [place] [address], , [place], [address], Provider Name:Jackson Iqbal, 8 10:00:00 AM, [address], , [place], [address], Provider Name:Jesus Olmos, 2021-01-24 08:00:00 AM, [address] [place] [address], , [place], [address], Insurance Providers Payer Name Payer Address Payer Phone Insured Name Patient Relati onship to Insured Coverage Start Date Coverage End Date [facility] COMMUN[employer] PLAN [facility] [address] [facility] [address] SM[employer] VIVER[employer] self
--- OUTSIDE RECORDS SUMMARY | 2021-01-24 06:46 | CCD ---
Author Author [facility] Organization [facility] Address Unknown Phone Unavailable Care Team Providers [employer] Name Role Phone Jesus Olmos Unavailable PROBLEMS Type Condition ICD9-CM Code MOW70-IC Code Onset Dates Condition S tatus W/U Status Risk SNOMED Code Notes Problem Overflow incontinence N39.490 Active confirmed 005246134 Problem Fibromyalgia M79.7 Active confirmed 3633867 7 Problem Hyperlipidemia E78.5 Active confirmed 51331 004 Problem Sacroiliitis, not elsewhere classified M46.1 A ctive confirmed 625188572 Problem Myalgia M79.1 Active confirmed 84544792 Problem Spondylosis of lumbosacral joint without myelopathy M47.817 Active confirmed 38766290 Problem Spondylosis of lumbosacral region without myelop athy or radiculopathy M47.817 Active confirmed 13207041 Problem Degenerative joint disease i nvolving multiple joints on both sides of body M15.9 Active confirmed 296710112 Problem Essential hypertension I10 Active confirmed 17871652 Problem Contact dermatitis, unspecif ied contact dermatitis type, unspecified trigger L25.9 Active confirmed 69563960 Problem Paroxysmal atrial fibrillation I48.0 Active confir med 541108043 Problem Chronic GERD K21.9 Active confirmed 0278955 09 Problem Chest pain, unspecified type R07.9 Active confirme d 92215529 Problem Spondylosis of lumbar region without myelopathy or radiculopathy M47.816 Active confirmed 77442342 Problem Lumbar facet arthropathy M46.96 Active confirmed 175718788 Problem Non-pressure chronic ulcer o f other part of right lower leg with fat layer exposed L97.812 Active confirmed 545225261 Problem Chronic venous hypertension (idiopathic) with ulcer of right lower extremity I87.311 Active confirmed 304903456 Problem Myalgia, other site M79.18 Active confirmed 00083415 Problem History of tachycardia Z87.898 Active confirmed 690586233 Problem Anxiety disorder, unspecified F41.9 Active confirm ed 736293066 Problem Spondylosis without myelopathy or radiculopathy, lumbosacral region M47.817 Active confirmed 71452810 Problem Anxiety F41.9 Active confirmed 26928838 Problem Major depressive disorder, single episode, unspecified F32.9 Active confirmed 51770860 Problem Other chronic pain G89.29 Active confirmed 8 7836132 Problem Low back pain M54.5 Active confirmed 721139 009 Problem Spondylosis without myelopathy or radiculopathy, lumbar region M47.816 Active confirmed 666105211 Problem History of angina Z86.79 Active confirmed 16 0578348 ALLERGIES Allergen (clinical drug ingredient) Drug/Non Drug Allergy do cumented on EMR Reaction Allergy Type Onset Date Status Tape adhesive Rash Non Drug Allergy Activ e pregabalin Lyrica(NDC Code:[address]-63) Anaphylaxis Drug Allergy Active cymbalta nausea/vomiting Non Drug Allergy Act lonny tizanidine Tizanidine HCl(NDC Code:[address]-14) Hives Drug All ergy Active zipsor swelling,hives Non Drug Allergy Acti ve gabapentin Gabapentin(NDC Code:[address]-59) hallucinations Drug All ergy Active Flexeril aggitation Drug Allergy Active diclofenac Diclofenac Potassium(NDC Code:[address]-99) agg itation (zipsor) Drug Allergy Active Amitriptyline amitriptyline aggitation Non Drug Allergy Ac tive ketorolac Ketorolac Tromethamine(NDC Code:[address]-35) s tomach pain Drug Allergy Active sulfamethoxazole / trimethoprim Bactrim(NDC Code:[address]-82) Nausea/Vomiting Drug Allergy Active ENCOUNTERS from 1965 to 2020-12-14 Encounter Location Date Provider Diagnosis [facility] [address] Floor [phone] [place] [address] Dec, Jesus Arteagavo IMMUNIZATIONS Vaccine Route Administration Date Status Benadryl [...] Notes Start Da te End Date Status Belbuca 150 MCG 1 film to the gum Bucally Once a day for 30 days Apr, Not-Taking Eliquis 5 MG 1 tab(s) Orally twice daily for 90 days Active May Use - CBD oil0(OTC) 2 gtts orally pt takes on her own as needed Not-Taking Robaxin 500 MG 1.5 tablets Orally every 4 hrs for 30 day(s) Nov, Not-Taking Metoprolol Succinate 100 MG 1 capsule Orally Once a day Active Nitroglycerin 0.4 MG as directed Sublingual Every 5 min: MDD 3 tablets for 30 day(s) Nov, Active Belbuca 150 MCG 1 film to the gum Bucally bid MDD2 for 30 days Dec, Active Sucralfate 1 GM 1 tablet Orally Twice a day Active Carisoprodol 350 MG 1 tablet as needed Orally Daily for 30 days Feb, Not-Taking Butrans 20 MCG/HR 1 patch to skin Transdermal 1 patch q7 d ays=MDD for 30 Days 09/07Apr, Not-Taking Skelaxin 800 MG 1 tablet Orally three times daily as needed Not-Taking Baclofen 5 MG 1 tablet with food or milk Orally Three times a day for 30 days Dec, Not-Taking Furosemide 20 MG 1 tablet Orally Once a day for 30 day(s) Not-Taking HYDROcodone-Acetaminophen 5-325 MG 1 tablet as needed Orally for pain Daily MDD1 Sep, Not-Taking Protonix 40 MG 1 tablet Orally bid for 30 day(s) Jan, 017 Active Metaxalone 800 MG 1 tablet Orally as needed fo r spasms and pain Three times a day MDD3 for 30 days Jan, Not-Taking PARoxetine HCl 30 MG 1 tablet in the morning Orally Once a day f or 90 days Feb, Not-Taking tiZANidine HCl 2 MG 1 tablet as needed Orally Three times a day Not-Taking PROCEDURES No Information RESULTS No Results REASON FOR VISIT Request Authorization for Bilateral transforaminal epidural steriod injection L 4-L5, L5-S1 in [place] MEDICAL (GENERAL) HISTORY Type Description Date Medical [...] Medication Name Sig Start Date Stop Date Belbuca 150 MCG 1 film to the gum Bucally bid MDD2 for 30 days 0 1 Dec, 2020 Next Appt Details Provider Name:Jackson Archer Farida, 7 08:30:00 AM, [address], , [place], [address], Provider Name:Jesus Olmos, 2021-01-07 10:30:00 AM, [address], , [place], [address], Insurance Providers Payer Name Payer Address Payer Phone Insured Name Patient Relati onship to Insured Coverage Start Date Coverage End Date [facility] [employer] [facility] [address] [facility] [phone] [employer]ITH [employer] self
--- OUTSIDE RECORDS SUMMARY | 2021-01-24 06:46 | CCD ---
Author Organization Unknown Address [address] [place] [address] Phone [phone] Care Team Providers Care Associate Professor Of Radiology Name Role Phone [facility] 2 [phone] JENELLE CASTILLO MD 2 [phone] Allergies Code Code System Name Reaction Severity Status Onset 812354 RxNorm Bactrim Active 08/30/2017 2670 RxNorm Codeine Active 08/30/2017 Cyclobenzaprine Active 08/30/2017 335738 RxNorm Cymbalta Active 08/30/2017 3355 RxNorm Diclofenac Active 08/30/2017 703915 RxNorm Lyrica Active 08/30/2017 39241 RxNorm Metaxalone Deactivated 08/30/2017 Shellfish Containing Products Deactivated 08/30/2017 Gabapentin Active 03/20/2018 Sorbitan Esters Facial Swelling Moderate to Severe Active Medications Name Status Start Date Stop Date acetaminophen 500 mg tablet Completed 05/11 Arnuity Ellipta 100 mcg/actuation powder for inhalation INHALE 1 PUFF BY MOUTH ONCE DAILY Active Not a vailable baclofen 5 mg tablet TAKE ONE TABLET BY MOUTH THREE TIMES DAILY WITH FOOD OR MILK Completed 06/04/2020 Belbuca 150 mcg buccal film DISSOLVE 1 FILM TO GUMS buccally TWICE DAILY MAX DAILY DOSE TWO films Active Not available Belbuca 75 mcg buccal film DISSOLVE 1 FILM TO THE gums TWICE DAILY NEEDED FOR PAIN MAX DAILY DOSE TWO films Active Not available benztropine 1 mg tablet Completed 01/22/20 buprenorphine 10 mcg/hour weekly transde rmal patch APPLY TWO PATCHes TOPICALY EVERY 7 DAYS, MAX DAILY DOSE TWO PATCH EVERY 7 DAYS Completed 10/26/2020 buprenorphine 20 mcg/hour weekly transde rmal patch APPLY ONE PATCH TO SKIN EVERY 7 DAYS MAX DAILY DOSE ONE PATCH PER SEVEN DAYS Completed 10/26/2020 carisoprodol 350 mg tablet TAKE ONE TABLET BY MOUTH ONCE DAILY NEEDED MAX DAILY DOSE ONE TABLET Completed 10/26/2020 ciprofloxacin 500 mg tablet TAKE ONE TABLET BY MOUTH TWICE DAILY FOR 10 DAYS Completed 10/26/2020 diazepam 5 mg tablet TAKE ONE TABLET BY MOUTH ONE-HALF HOUR PRIOR TO MRI MAY REPEAT IN 30 MINUTES if no effect MAX DAILY DOSE TWO TABLETS Completed Eliquis 5 mg tablet Active Not availabl e Fluarix Quad (PF) 60 mcg (15 mcg x 4)/0.5 mL IM syring e Completed 01/22/2020 furosemide 20 mg tablet TAKE ONE TABLET BY MOUTH EVERY 48 HOURS Completed 11/05/2020 gabapentin 300 mg capsule TAKE TWO CAPSULES BY MOUTH TWICE DAILY Completed 01/22/2020 hydrocodone 5 mg-acetaminophen 325 mg ta blet TAKE ONE TABLET BY MOUTH ONCE DAILY MAX DAILY DOSE ONE TABLET Completed 10/26/2020 Latuda 20 mg tablet TAKE ONE TABLET BY MOUTH EVERY EVENING Completed 11/05/2020 Latuda 40 mg tablet TAKE ONE TABLET BY MOUTH ONCE DAILY Active Not available lisinopril 10 mg tablet TAKE ONE TABLET BY MOUTH AT BEDTIME Completed 02/2020 meclizine 25 mg tablet take one tablet by mouth twice daily Completed metaxalone 800 mg tablet TAKE ONE TABLET BY MOUTH THREE TIMES DAILY NEEDED FOR PAIN AND SPASMS Completed 11/24/2020 metoprolol tartrate 25 mg tablet TAKE ONE TABLET BY MOUTH TWICE DAILY Completed metoprolol tartrate 50 mg tablet TAKE ONE TABLET BY MOUTH TWICE DAILY Active No t available nitrofurantoin monohydrate/macrocrystals 100 mg capsule Complete d 05/03/2020 [facility] 100,000 unit/gram topical powder apply topically TO affected area(s) TWICE DAILY DIRECTED Completed 01/22/2020 omeprazole 40 mg capsule,delayed release TAKE ONE CAPSULE BY MOUTH ONCE DAILY Active No t available ondansetron 4 mg disintegrating tablet DISSOLVE ONE TABLET BY MOUTH EVERY 6 TO 8 HOURS NEEDED FOR NAUSEA AND VOMITING Active Not available oxybutynin chloride 5 mg tablet TAKE ONE TABLET BY MOUTH TWICE DAILY Active No t available oxycodone-acetaminophen 5 mg-325 mg tablet Completed 01/22/2020 oxycodone-acetaminophen 7.5 mg-325 mg tablet Completed 01/22/2020 pantoprazole 40 mg tablet,delayed release Completed 01/22/2020 promethazine 25 mg tablet TAKE ONE TABLET BY MOUTH EVERY 6 HOURS NEEDED FOR NAUSEA AND FOR VOMITING Completed 05/03/2020 simethicone 180 mg capsule TAKE ONE CAPSULE BY MOUTH THREE TIMES DAILY Completed 05/03/2020 sucralfate 1 gram tablet TAKE ONE TABLET BY MOUTH TWICE DAILY Active No t available sulfamethoxazole 800 mg-trimethoprim 160 mg tablet Completed 01/22/2020 tizanidine 4 mg tablet TAKE ONE TABLET BY MOUTH UP TO THREE TIMES DAILY NEEDED FOR spasm Active Not available tolnaftate 1 % topical cream APPLY TO THE AFFECTED AREA(S) TWICE DAILY Completed 11/05/2020 tramadol 50 mg tablet TAKE ONE TABLET BY MOUTH EVERY 8 HOURS NEEDED FOR SEVERE PAIN FOR UP TO FIVE DAYS, MAX DAILY DOSE THREE TABLETS Completed 10/26 zaleplon 5 mg capsule TAKE ONE CAPSULE BY MOUTH AT BEDTIME Completed Problems Name Status Onset Date Source Dysthymia Active 08/30/2017 History Atrial Fibrillation Unknown 08/30/2017 History Acute Bronchitis Unknown 08/30/2017 History Chronic Obstructive Lung Disease Active 08/30/2017 History Gastroesophageal Reflux Disease Active 08/30/2017 History Fibromyalgia Active 08/30/2017 History Diarrhea Unknown 08/30/2017 History Finding of Esophagus Unknown 08/30/2017 History Severe Obesity Active 11/21/2017 History Finding of Body Mass Index Active 11/21/[address] Concept Unknown 11/21/2017 History Breast Neoplasm Screening Status Unknown 12/26/2017 History Chronic Atrial Fibrillation Active 03/20/2018 Hist ory Chest Pain Unknown 03/20/2018 History Under Immunized Unknown 03/26/2018 History Syncope and Collapse Unknown 09/25/2018 History Seizure Active 09/25/2018 History Coronary Heart Disease Monitoring Status Active [address] Concept Unknown 10/18/2018 History Clinical Finding Unknown 10/18/2018 History Headache Unknown 01/01/2019 History Procedure Unknown 02/11/2019 History Acute Streptococcal Bronchitis Unknown 04/30/2019 H istory Neck Pain Active 04/30/2019 History Pain in Thoracic Spine Active 04/30/2019 History Finding of Neck Region Unknown 04/30/2019 History Mixed Anxiety and Depressive Disorder Active 05/14/2019 History Hypertensive Disorder Active 05/14/2019 History Emotional State Finding Unknown 05/14/2019 History Dizziness and Giddiness Unknown 05/22/2019 History Palpitations Active 05/22/2019 History Disorder of Glenohumeral Joint Unknown 07/11/2019 H istory Pain Unknown 07/22/2019 History Edema, Generalized Active 07/22/2019 History Dyspnea Active 07/22/2019 History Finding of General Energy Unknown 07/22/2019 Histor y Clinical Finding Unknown 07/22/2019 History [place] Lesion of Lung Active 12/19/2019 History Hepatomegaly Active 05/03/2020 Covid-19 Active 10/26/2020 Microscopic Hematuria Active 11/24/2020 Recurrent Falls Active 11/24/2020 Procedures Date Name Performed by Cholecystectomy Information not avai lable Hysterectomy Information not avai lable 05/03/2020 US, Liver [facility] nt Radiology [address] [place] [address] (Work Place) 05/03/2020 MAMMO, Screening, Digital, Bilateral [facility] [address] [place] [address] (Work Place) 05/03/2020 CT, Chest, W/o Contrast [facility] [address] [place] [address] (Work Place) Notes: 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, left shou lder Results Lab Results Date Name Specimen Result Interpretation Description Value Range Status Address 11/24/2020 Urinalysis Complete, Reflex Culture Urine [facility] [address] [facility] Urine ABNORMAL Appearance turbid clear Final Qu est [facility]: [address] [facility] Urine Normal Specific [place] 1.020 1.001-1.035 Final [facility]: [address] [facility] [facility] Urine Normal Ph < or = 5.0 5.0-8.0 Final [facility]: [address] [facility] Urine Normal Glucose negative negative Final Que [facility]: [address] [facility] Urine Normal Bilirubin negative negative Final Q uest [facility]: [address] [place] Urine Normal Ketones negative negative Final Que [facility]: [address] [facility] Urine Normal Occult Blood negative negative Final [facility]: [address] [facility] Urine Normal Protein negative negative Final Que [facility]: [address], [place] Urine Normal Nitrite negative negative Final [facility]: [address] [facility] Urine Normal Leukocyte Esterase negative negative Final [facility]: [address] [facility] [facility] Urine Normal Wbc 0-5 /hpf < or = 5 /hpf Final Q uest [facility]: [address] [facility] Urine Normal Rbc none seen /hpf < or = 2 /hpf Fi nal [facility]: [address] [facility] Urine ABNORMAL Squamous Epithelial Cells 10-20 /h pf < or = 5 /hpf Final [facility]: [address] [facility] Urine ABNORMAL Bacteria few /hpf none seen /hpf F inal [facility]: [address] [facility] Urine Normal Hyaline Cast none seen /lpf none see n /lpf Final [facility]: [address] [facility] 11/24/2020 Culture, Urine Reflexive Urine Culture [facility]: [address] [facility] 11/11/2020 UA W/ Reflex to Culture Normal Appearance, Urine Rfx clear clear Final [facility]: [address] 0 [facility] Normal Color, Urine Rfx yellow yellow [facility]: [address] [facility] Normal pH,urine Rfx 5.0 units 5.0-9.0 units [facility]: [address] [facility] Normal Specific [place] Ur Auto Rfx 1.006 1.002-1.035 [facility]: [address] [facility] Normal Protein, Urine Auto Rfx negative mg/ dL negative mg/dL [facility]: [address] [facility] Normal Glucose, Urine (UA) Auto Rfx n egative mg/dL negative mg/dL [facility]: [address] [facility] Normal Ketone, Urine Auto Rfx negative mg/d L negative mg/dL [facility]: [address] [facility] Normal Urobilinogen, Urine Auto Rfx 0.2 mg/ dL 0.0-2.0 mg/dL [facility]: [address] [facility] Normal Bilirubin, Urine Auto Rfx negative n egative [facility]: [address] [facility] Normal Nitrite, Urine Auto Rfx negative neg ative [facility]: [address] [facility] Normal Leukocyte Esterase Ur Auto Rfx negat lonny negative [facility]: [address] [facility] High Blood, Urine Blood Rfx 1+ negati ve [facility]: [address] [facility] Normal WBC, Urine Auto Rfx 0 /hpf 0-3 /hpf [facility]: [address] [facility] Normal RBC, Urine Auto Rfx 0 /hpf 0-3 /hpf [facility]: [address] [facility] High Bacteria, Urine Auto Rfx 1+ nega tive [facility]: [address] [facility] Normal Squam Epithelial Cell Ur Aurfx 1 /hp f 0-6 /hpf [facility]: [address] [facility] Normal Mucus, Urine Rfx small negative Fin al [facility]: [address] [facility] Normal Hyaline Cast, Urine Auto Rfx 0 /lpf 0-1 /lpf [facility]: [address] [facility] 08/23/2020 Urinalysis, Complete Color tnp [facility] [address] [facility] Patient Id Approval Tiq Documentation Co mment [facility] [facility] macy S [facility]: [facility] Affected all [facility] [address] [facility] 08/23/2020 Culture, Urine Culture, Urine, Routine see note [facility]: [facility] 07/21/2020 D-dimer, Quant, Plasma High D-dimer Quant 706.82 NG/mL <500 NG/mL [facility]: 83 0 [facility] 07/21/2020 Cardiovascular Assessment Panel, Serum Normal CPK Creatine Phosphokinase 138 U/L 26-192 U/L [facility]: [address] [facility] Normal CK-mb Value Mass < 1.0 NG/mL <3.6 NG /mL [facility]: 0 [facility] Normal mb/CK Relative Index 0.72 < or =4 [facility]: [address] [place] [address] Normal Troponin I < 0.02 NG/mL < 0.10 NG/mL [facility]: 0 [facility] 07/21/2020 Hepatic Function Panel, Serum High AST/SG OT 53 U/L 7-37 U/L [facility]: [address] [facility] Normal ALT/SGPT 53 U/L 12-78 U/L [facility]: 0 [facility] Normal Alkaline Phosphatase 99 U/L 45-117 U /L [facility]: 0 [facility] Normal Bilirubin,total 0.6 mg/dL 0.2-1.0 mg /dL [facility]: 0 [facility] Normal Bilirubin,direct 0.1 mg/dL 0.0-0.2 m g/dL [facility]: [address] [place] [address] Low Total Protein 6.1 gm/dL 6.4-8.2 gm/d L [facility]: [address] [place] [address] Normal Albumin 3.2 gm/dL 3.2-5.2 gm/dL Tram l [facility]: [address] [place] [address] Low Albumin/globulin Ratio 1.1 1.2-2. 2 [facility]: 0 [facility] 07/21/2020 BMP, Serum or Plasma Normal Glucose, Fastin g 88 mg/dL 70-100 mg/dL [facility]: 83 0 [facility] Normal Blood Urea Nitrogen 7 mg/dL 7-18 mg/ dL [facility]: [address] [place] [address] Normal Creatinine for GFR 0.77 mg/dL 0.55-1 .30 mg/dL [facility]: 0 [facility] Normal Glomerular Filtration Rate > 60.0 >5 1 [facility]: [address] [facility] Normal Sodium Level 141 mEq/L 136-145 mEq/L [facility]: [address] [place] [address] Normal Potassium Serum 4.1 mEq/L 3.5-5.1 mE q/L [facility]: [address] [place] [address] High Chloride Level 109 mEq/L 98-107 mEq/ L [facility]: [address] [place] [address] Normal Carbon Dioxide Level 28 mEq/L 21-32 mEq/L [facility]: [address] [place] [address] Low Anion Gap 4 mEq/L 8-16 mEq/L [facility]: [address] [place] [address] Normal Calcium Level 9.2 mg/dL 8.5-10.1 mg/ dL [facility]: [address] [place] [address] 07/21/2020 Pro BNP (Pro B-type Natriuretic Peptide), Serum or Plasma High Nt-pro BNP 224 pg/mL <125 pg/mL [facility]: [address] [place] [address] 07/21/2020 Urinalysis, Dipstick Normal Appearance, Urine hazy clear [facility]: [address] [place] [address] Normal Color, Urine straw yellow [facility]: [address] [place] [address] Normal pH,urine 6.0 units 5.0-9.0 units Fin [facility]: [address] [place] [address] Low Specific [place] Urine Auto 1.001 1 .002-1.035 [facility]: 0 [facility] Normal Protein, Urine Auto negative mg/dL n egative mg/dL [facility]: 0 [facility] Normal Glucose, Urine (UA) Auto negative mg /dL negative mg/dL [facility]: [address] [place] [address] Normal Ketone, Urine Auto negative mg/dL ne gative mg/dL [facility]: 0 [facility] Normal Urobilinogen, Urine Auto 0.2 mg/dL 0 .0-2.0 mg/dL [facility]: 0 [facility] Normal Bilirubin, Urine Auto negative negat lonny [facility]: 830 [facility] Normal Nitrite, Urine Auto negative negativ e [facility]: [address] [facility] High Leukocyte Esterase, Urine Auto 2+ negative [facility]: 830 [facility] Normal Blood, Urine Blood negative negative [facility]: [address] [facility] High WBC, Urine Auto 4 /hpf 0-3 /hpf [facility]: [address] [facility] Normal RBC, Urine Auto 1 /hpf 0-3 /hpf [facility]: 830 [facility] High Bacteria, Urine Auto 1+ negative [facility]: 830 [facility] Normal Squamous Epithelial Cell Ur AU 2 /hp f 0-6 /hpf [facility]: 8[address] [facility] Normal Hyaline Cast, Urine Auto 0 /lpf 0-1 /lpf [facility]: [address] [facility] 07/21/2020 CBC W/ Auto Diff Low White Blood Count 3.6 10 4.0-10.0 10 [facility]: 0 [facility] Normal Red Blood Count 4.52 10 4.00-5.40 10 [facility]: 830 [facility] Normal Hemoglobin 13.7 g/dL 12.0-15.5 g/dL [facility]: 8[address] [facility] Normal Hematocrit 41.2 % 36.0-47.0 % [facility]: 8[address] [facility] Normal Mean Corpuscular Volume 91.2 fL 80.0 -96.0 fL [facility]: 0 [facility] Normal Mean Corpuscular Hemoglobin 30.3 pg 27.0-33.0 pg [facility]: 8[address] [facility] Normal Mean Corpuscular HGB Conc 33.3 g/dL 32.0-36.5 g/dL [facility]: 0 [facility] Normal Red Cell Distribution Width 12.9 % 1 1.5-14.5 % [facility]: 8[address] [facility] Normal Platelet Count, Automated 166 10 150 -450 10 [facility]: 8[address] [facility] Normal Neutrophils % 49.9 % 36.0-66.0 % [facility]: [address] [facility] Normal Lymph % 37.0 % 24.0-44.0 % [facility]: [address] [facility] High [place] % 10.3 % 2.0-8.0 % [facility]: [address] [facility] Normal Eos % 1.9 % 0.0-3.0 % [facility]: [address] [facility] Normal Baso % 0.6 % 0.0-1.0 % [facility]: 8[address] [facility] Normal Immature Granulocyte % 0.3 % 0-3.0 % [facility]: 8[address] [facility] Normal Nucleated Red Blood Cell % 0.0 % 0- 0 % [facility]: 8[address] [facility] Normal Neutrophils # 1.8 10 1.5-8.5 10 [facility]: [address] [facility] Low Lymph # 1.3 10 1.5-5.0 10 [facility]: [address] [facility] Normal [place] # 0.4 10 0.0-0.8 10 [facility]: 8[address] [facility] Normal Eos # 0.1 10 0.0-0.5 10 [facility]: 8[address] [facility] Normal Baso # 0.0 10 0.0-0.2 10 [facility]: 8[address] [facility] 06/16/2020 UA W/ Reflex to Culture Normal Appearance, Urine Rfx clear clear [facility]: 83 0 [facility] Normal Color, Urine Rfx yellow yellow [facility]: 830 [facility] Normal pH,urine Rfx 5.0 units 5.0-9.0 units [facility]: 830 [facility] Normal Specific [place] Ur Auto Rfx 1.011 1.002-1.035 [facility]: 830 [facility] Normal Protein, Urine Auto Rfx negative mg/ dL negative mg/dL [facility]: 830 [facility] Normal Glucose, Urine (UA) Auto Rfx n egative mg/dL negative mg/dL [facility]: 830 [facility] High Ketone, Urine Auto Rfx 1+ mg/dL nega tive mg/dL [facility]: [address] [facility] High Urobilinogen, Urine Auto Rfx 2.0 mg/ dL 0.0-2.0 mg/dL [facility]: 8[address] [facility] Normal Bilirubin, Urine Auto Rfx negative n egative [facility]: [address] [facility] Normal Nitrite, Urine Auto Rfx negative neg ative [facility]: [address] [facility] Normal Leukocyte Esterase Ur Auto Rfx negat lonny negative [facility]: 8[address] [facility] Normal Blood, Urine Blood Rfx negative nega tive [facility]: [address] [facility] Normal WBC, Urine Auto Rfx 1 /hpf 0-3 /hpf [facility]: 830 [facility] Normal RBC, Urine Auto Rfx 1 /hpf 0-3 /hpf [facility]: 8[address] [facility] High Bacteria, Urine Auto Rfx 1+ nega tive [facility]: [address] [facility] Normal Squam Epithelial Cell Ur Aurfx 1 /hp f 0-6 /hpf [facility]: [address] [facility] Normal Mucus, Urine Rfx small negative [facility]: [address] [facility] Normal Hyaline Cast, Urine Auto Rfx 0 /lpf 0-1 /lpf [facility]: 830 [facility] 06/16/2020 CBC W/ Auto Diff Low White Blood Count 3.9 10 4.0-10.0 10 [facility]: 8[address] [facility] Normal Red Blood Count 4.75 10 4.00-5.40 10 [facility]: [address] [facility] Normal Hemoglobin 14.3 g/dL 12.0-15.5 g/dL [facility]: 8[address] [facility] Normal Hematocrit 44.0 % 36.0-47.0 % [facility]: [address] [place] [address] Normal Mean Corpuscular Volume 92.6 fL 80.0 -96.0 fL [facility]: [address] [place] [address] Normal Mean Corpuscular Hemoglobin 30.1 pg 27.0-33.0 pg [facility]: [address] [place] [address] Normal Mean Corpuscular HGB Conc 32.5 g/dL 32.0-36.5 g/dL [facility]: 0 [facility] Normal Red Cell Distribution Width 12.6 % 1 1.5-14.5 % [facility]: [address] [place] [address] Normal Platelet Count, Automated 157 10 150 -450 10 [facility]: 0 [facility] Normal Neutrophils % 65.7 % 36.0-66.0 % [facility]: [address] [facility] Low Lymph % 19.1 % 24.0-44.0 % [facility]: [address] [facility] High [place] % 11.6 % 2.0-8.0 % [facility]: 0 [facility] Normal Eos % 2.3 % 0.0-3.0 % [facility]: 0 [facility] Normal Baso % 0.8 % 0.0-1.0 % [facility]: 0 [facility] Normal Immature Granulocyte % 0.5 % 0-3.0 % [facility]: [address] [place] [address] Normal Nucleated Red Blood Cell % 0.0 % 0- 0 % [facility]: [address] [place] [address] Normal Neutrophils # 2.6 10 1.5-8.5 10 [facility]: [address] [place] [address] Low Lymph # 0.7 10 1.5-5.0 10 [facility]: [address] [place] [address] Normal [place] # 0.5 10 0.0-0.8 10 [facility] [facility]: [address] [place] [address] Normal Eos # 0.1 10 0.0-0.5 10 [facility]: [address] [place] [address] Normal Baso # 0.0 10 0.0-0.2 10 [facility]: [address] [place] [address] 06/16/2020 Lactic Acid, Serum or Plasma Normal Lactic Acid Sepsis Protocol 1.0 mmol/L 0.4-2.0 mmol/L [facility]: [address] [place] [address] 06/16/2020 Cardiovascular Assessment Panel, Serum Normal CPK Creatine Phosphokinase 59 U/L 26-192 U/L [facility]: [address] [place] [address] Normal CK-mb Value Mass < 1.0 NG/mL <3.6 NG /mL [facility]: [address] [place] [address] Normal mb/CK Relative Index 1.69 < or =4 [facility]: [address] [place] [address] Normal Troponin I < 0.02 NG/mL < 0.10 NG/mL [facility]: [address] [place] [address] 06/16/2020 Hepatic Function Panel, Serum Normal AST/SG OT 31 U/L 7-37 U/L [facility]: [address] [place] [address] Normal ALT/SGPT 32 U/L 12-78 U/L [facility]: [address] [place] [address] Normal Alkaline Phosphatase 99 U/L 45-117 U /L [facility]: [address] [place] [address] Normal Bilirubin,total 0.4 mg/dL 0.2-1.0 mg /dL [facility]: 0 [facility] Normal Bilirubin,direct 0.1 mg/dL 0.0-0.2 m g/dL [facility]: 0 [facility] Low Total Protein 6.2 gm/dL 6.4-8.2 gm/d L [facility]: 830 [facility] Normal Albumin 3.2 gm/dL 3.2-5.2 gm/dL Tram [facility]: 8[address] [facility] Low Albumin/globulin Ratio 1.1 1.2-2. 2 [facility]: 0 [facility] 06/16/2020 BMP, Serum or Plasma Normal Glucose, Fastin g 97 mg/dL 70-100 mg/dL [facility]: 83 0 [facility] Normal Blood Urea Nitrogen 11 mg/dL 7-18 mg /dL [facility]: [address] [place] [address] Normal Creatinine for GFR 0.88 mg/dL 0.55-1 .30 mg/dL [facility]: 0 [facility] Normal Glomerular Filtration Rate > 60.0 >5 1 [facility]: 0 [facility] Normal Sodium Level 140 mEq/L 136-145 mEq/L [facility]: 0 [facility] Normal Potassium Serum 3.7 mEq/L 3.5-5.1 mE q/L [facility]: 0 [facility] Normal Chloride Level 106 mEq/L 98-107 mEq/ L [facility]: 0 [facility] Normal Carbon Dioxide Level 30 mEq/L 21-32 mEq/L [facility]: 0 [facility] Low Anion Gap 4 mEq/L 8-16 mEq/L [facility]: 0 [facility] Normal Calcium Level 8.9 mg/dL 8.5-10.1 mg/ dL [facility]: 0 [facility] 06/16/2020 Amylase, Serum or Plasma Normal Amylase 28 U/L 25-115 U/L [facility]: [address] [place] [address] 06/16/2020 Lipase, Serum or Plasma Normal Lipase 96 U/L 7 3-393 U/L [facility]: [address] [place] [address] 06/02/2020 PT/INR Normal Prothrombin Time 12.3 secon ds 12.5-14.3 seconds [facility]: [address] [place] [address] Normal Inr 0.89 [facility]: [address] [place] [address] 06/02/2020 Partial Thromboplastin Time Normal Partial Thromboplastin Time 26.8 seconds 24.2-38.5 seconds [facility] nter: [address] [place] [address] 06/02/2020 Cardiovascular Assessment Panel, Serum Normal CPK Creatine Phosphokinase 113 U/L 26-192 U/L [facility]: [address] [place] [address] Normal CK-mb Value Mass < 1.0 NG/mL <3.6 NG /mL [facility]: [address] [place] [address] Normal mb/CK Relative Index 0.88 < or =4 [facility]: [address] [place] [address] 06/02/2020 BMP, Serum or Plasma High Glucose, Fastin g 115 mg/dL 70-100 mg/dL [facility]: 83 0 [facility] Normal Blood Urea Nitrogen 10 mg/dL 7-18 mg /dL [facility]: [address] [place] [address] Normal Creatinine for GFR 1.12 mg/dL 0.55-1 .30 mg/dL [facility]: [address] [place] [address] Normal Glomerular Filtration Rate 53.8 >5 1 [facility]: 0 [facility] Normal Sodium Level 145 mEq/L 136-145 mEq/L [facility]: [address] [place] [address] Normal Potassium Serum 4.2 mEq/L 3.5-5.1 mE q/L [facility]: [address] [place] [address] High Chloride Level 109 mEq/L 98-107 mEq/ L [facility]: [address] [place] [address] High Carbon Dioxide Level 33 mEq/L 21-32 mEq/L [facility]: [address] [place] [address] Low Anion Gap 3 mEq/L 8-16 mEq/L [facility]: [address] [place] [address] Normal Calcium Level 9.3 mg/dL 8.5-10.1 mg/ dL [facility]: [address] [place] [address] 06/02/2020 Troponin I, Blood Normal Troponin I < 0.02 NG/mL < 0.10 NG/mL [facility]: [address] [place] [address] 06/02/2020 TSH, Serum or Plasma Normal Thyroid Stimulating Hormone 2.580 uIU/mL 0.358-3.740 uIU/mL [facility] nter: [address] [place] [address] 06/02/2020 CBC W/ Auto Diff Normal White Blood Count 6.1 10 4.0-10.0 10 [facility]: [address] [place] [address] Normal Red Blood Count 4.92 10 4.00-5.40 10 [facility]: [address] [place] [address] Normal Hemoglobin 15.0 g/dL 12.0-15.5 g/dL [facility]: [address] [place] [address] Normal Hematocrit 45.6 % 36.0-47.0 % [facility]: [address] [place] [address] Normal Mean Corpuscular Volume 92.7 fL 80.0 -96.0 fL [facility]: [address] [place] [address] Normal Mean Corpuscular Hemoglobin 30.5 pg 27.0-33.0 pg [facility]: [address] [place] [address] Normal Mean Corpuscular HGB Conc 32.9 g/dL 32.0-36.5 g/dL [facility]: [address] [place] [address] Normal Red Cell Distribution Width 12.9 % 1 1.5-14.5 % [facility]: [address] [place] [address] Normal Platelet Count, Automated 208 10 150 -450 10 [facility]: 830 [facility] Normal Neutrophils % 57.3 % 36.0-66.0 % [facility]: 830 [facility] Normal Lymph % 34.0 % 24.0-44.0 % Final [facility]: 830 [facility] Normal [place] % 7.2 % 2.0-8.0 % Final [facility]: 830 [facility] Normal Eos % 1.0 % 0.0-3.0 % [facility]: 830 [facility] Normal Baso % 0.2 % 0.0-1.0 % Final [facility]: 830 [facility] Normal Immature Granulocyte % 0.3 % 0-3.0 % [facility]: 830 [facility] Normal Nucleated Red Blood Cell % 0.0 % 0- 0 % [facility]: 830 [facility] Normal Neutrophils # 3.5 10 1.5-8.5 10 [facility]: 830 [facility] Normal Lymph # 2.1 10 1.5-5.0 10 [facility]: 830 [facility] Normal [place] # 0.4 10 0.0-0.8 10 [facility]: 830 [facility] Normal Eos # 0.1 10 0.0-0.5 10 [facility]: 830 [facility] Normal Baso # 0.0 10 0.0-0.2 10 [facility]: 830 [facility] 05/03/2020 Hemoglobin a1C, Fingerstick Normal Hba1C 5.2 % Final [facility]: [address] [facility] 05/03/2020 Urinalysis, Dipstick, Auto Normal Bilirubin ne g Final [facility]: [address] [facility] Normal Blood neg Final [facility] us Medical: [address] [facility] Normal Glucose neg Final [facility]: [address] [facility] Normal Ketone neg Final [facility]: [address] [facility] Normal Leukocytes neg Final [facility]: [address] [facility] Normal Nitrite neg Final [facility] Medical: [address] [facility] Normal Ph 6.0 Final [facility]: [address] [facility] Normal Protein neg Final [facility]: [address] [facility] Normal Specific [place] 1.030 Final [facility]: [address] [facility] Normal Urobilinogen 0.2 Final [facility]: [address] [facility] 01/30/2020 CBC W/ Auto Diff Normal White Blood Count 5.3 10 4.0-10.0 10 [facility]: [address] [place] [address] Normal Red Blood Count 4.24 10 4.00-5.40 10 [facility]: [address] [place] [address] Normal Hemoglobin 12.6 g/dL 12.0-15.5 g/dL [facility]: 0 [facility] Normal Hematocrit 39.5 % 36.0-47.0 % [facility]: [address] [place] [address] Normal Mean Corpuscular Volume 93.2 fL 80.0 -96.0 fL [facility]: [address] [place] [address] Normal Mean Corpuscular Hemoglobin 29.7 pg 27.0-33.0 pg [facility]: [address] [place] [address] Low Mean Corpuscular HGB Conc 31.9 g/dL 32.0-36.5 g/dL [facility]: 830 [facility] Normal Red Cell Distribution Width 13.2 % 1 1.5-14.5 % [facility]: [address] [place] [address] Low Platelet Count, Automated 127 10 150 -450 10 [facility]: 830 [facility] Normal Neutrophils % 51.8 % 36.0-66.0 % [facility]: 8[address] [facility] Normal Lymph % 39.0 % 24.0-44.0 % Final [facility]: 830 [facility] High [place] % 7.1 % 0.0-5.0 % [facility]: 830 [facility] Normal Eos % 1.3 % 0.0-3.0 % [facility]: 8[address] [facility] Normal Baso % 0.4 % 0.0-1.0 % [facility]: 830 [facility] Normal Immature Granulocyte % 0.4 % 0-3.0 % [facility]: 830 [facility] Normal Nucleated Red Blood Cell % 0.0 % 0- 0 % [facility]: 830 [facility] Normal Neutrophils # 2.8 10 1.5-8.5 10 [facility]: 8[address] [facility] Normal Lymph # 2.1 10 1.5-5.0 10 [facility]: 8[address] [facility] Normal [place] # 0.4 10 0.0-0.8 10 [facility]: [address] [facility] Normal Eos # 0.1 10 0.0-0.5 10 [facility]: 830 [facility] Normal Baso # 0.0 10 0.0-0.2 10 [facility]: 830 [facility] 01/30/2020 BMP, Serum or Plasma Normal Glucose, Fastin g 98 mg/dL 70-100 mg/dL [facility]: 83 0 [facility] Normal Blood Urea Nitrogen 13 mg/dL 7-18 mg /dL [facility]: 830 [facility] Normal Creatinine for GFR 1.22 mg/dL 0.55-1 .30 mg/dL [facility]: 0 [facility] Low Glomerular Filtration Rate 48.9 >5 1 [facility]: 830 [facility] Normal Sodium Level 144 mEq/L 136-145 mEq/L [facility]: 0 [facility] Normal Potassium Serum 3.8 mEq/L 3.5-5.1 mE q/L [facility]: [address] [place] [address] High Chloride Level 108 mEq/L 98-107 mEq/ L [facility]: [address] [place] [address] Normal Carbon Dioxide Level 30 mEq/L 21-32 mEq/L [facility]: [address] [place] [address] Low Anion Gap 6 mEq/L 8-16 mEq/L [facility]: [address] [place] [address] Normal Calcium Level 8.6 mg/dL 8.5-10.1 mg/ dL [facility]: [address] [place] [address] 01/30/2020 CK (Creatine Kinase) Mb, Quantitative, Blood No rmal CPK Creatine Phosphokinase 75 U/L 26-192 U/L [facility]: [address] [place] [address] 01/30/2020 Pro BNP (Pro B-type Natriuretic Peptide), Serum or Plasma High Nt-pro BNP 278 pg/mL <125 pg/mL [facility]: [address] [place] [address] 01/18/2020 Istat Chem8+ Panel Normal Istat HCT 38.0 % 38. 0-51.0 % [facility]: [address] [place] [address] Normal Istat Glucose 83 mg/dL 70-105 mg/dL [facility]: [address] [place] [address] Normal Istat Sodium 140 mEq/L 136-145 mEq/L [facility]: [address] [place] [address] Normal Istat Potassium 4.2 mEq/L 3.5-5.1 mE q/L [facility]: [address] [place] [address] Normal Istat Ca++ 4.8 mg/dL 4.5-5.3 mg/dL [facility]: 0 [facility] Normal Istat Chloride 104 mEq/L 98-109 mEq/ L [facility]: [address] [place] [address] High Istat CO2 30.0 mm/L 23.0-27.0 mm/L [facility]: 830 [facility] Normal Istat BUN 14 mg/dL 8-26 mg/dL Final [facility]: [address] [facility] Normal Istat Creatinine 1.1 mg/dL 0.6-1.3 m g/dL Final [facility]: 830 [facility] Past Encounters 12/31/2020 Recurrent Falls Arnaud Romero MD: [address] [place] [phone], Ph. 11/24/2020 Microscopic Hematuria; Fibromyalgia; Mixed Anxiety and Depressive Disorder; Recurrent Falls Arnaud Romero MD: [address] [place] [phone], Ph. 11/05/2020 Overflow Incontinence of Urine; Gastritis; Gastroesophageal Reflux Disease without Esophagitis; Nausea [facility]: [address] [place] [phone], Ph. 10/26/2020 Covid-19; Dyspnea [facility]: [address] [place] [address], Ph. 08/23/2020 Dysuria; Body Mass Index 40+ - Severely Obese Macy Robles PA-C: [address] [place] [address], Ph. 06/14/2020 Administration of SARS-CoV-2 Antigen Vaccine Arnaud Romero MD: [address] [place] [phone], Ph. 06/04/2020 Chronic Atrial Fibrillation; Nausea Macy Robles PA-C: [address] [place] [phone], Ph. 05/20/2020 Administration of SARS-CoV-2 Antigen Vaccine Arnaud Romero MD: [address] [place] [phone], Ph. 05/03/2020 Excessive Thirst; Administration of Influenza Vaccine; Administration of Pneumococcal Vaccine; Hepatomegaly; Chronic Obstructive Lung Disease; Renal Function Tests Abnormal; Screening for Malignant Neoplasm of Breast; Solitary Nodule of Lung; Screening for Malignant Neoplasm of Colon; Gastroesophageal Reflux Disease; Chronic Atrial Fibrillation Macy Robles PA-C: [address] [place] [address], Ph. 01/22/2020 Constipation; Chronic Atrial Fibrillation; Gastroesophageal Reflux Disease without Esophagitis Macy Robles PA-C: [address] [place] [address], Ph. Social History Tobacco Smoking Status Former Smoker (1/4 pack per day) Vaccine List Vaccine Type COVID-19, mRNA, LNP-S, PF, 100 mcg/0.5 m L dose .5 mL .5 mL Influenza, injectable, MDCK, preservativ e free, quadrivalent .5 mL influenza, injectable, quadrivalent, pre servative free .5 mL pneumococcal polysaccharide PPV23 .5 mL Plan of Care Patient Instructions Please continue medications as prescribe d. Please try to maintain good nutrition, adequate rest and adequate physical activities and adequate intake of water daily. We have made a referral for you today, We will contact you to set this up. Please return to the ER for evaluation o f worsening covid 19 symptoms. I spoke with the ER charge nurse to make the aware that you are coming over. Please call for an appointment after your ER visit. Reminders Provider Appointments None recorded. Lab None recorded. Referral None recorded. Procedures None recorded. Surgeries None recorded. Imaging None recorded. Vitals 12/31/2020 02:00PM ESTABLISHED [id number] Height Weight BMI Blood Pressure 62 in 264 lbs 4 oz 48.3 kg/m2 116/79 mm[Hg] 11/24/2020 08:40AM ED FOLLOW-UP Height Weight BMI Blood Pressure 62 in 262 lbs 8 oz 48 kg/m2 123/84 mm[Hg] 11/05/2020 03:40PM TELEHEALTH 20 Height 62 in 10/26/2020 09:00AM TELEHEALTH 20 Height 62 in 08/23/2020 02:00PM ESTABLISHED [id number] Height Weight BMI Blood Pressure 62 in 270 lbs 49.4 kg/m2 121/83 mm[Hg] 06/04/2020 09:00AM ED FOLLOW-UP Height Weight BMI Blood Pressure 62 in 271 lbs 6 oz 49.6 kg/m2 138/84 mm[Hg] 05/03/2020 09:20AM PROVIDER REQUESTED Height Weight BMI Blood Pressure 62 in 270 lbs 49.4 kg/m2 (1) 141/84 mm[H g] (2) 111/66 mm[Hg] 01/22/2020 08:00AM ESTABLISHED [id number] Height Weight BMI Blood Pressure 62 in 261 lbs 8 oz 47.8 kg/m2 111/78 mm[Hg] 12/19/2019 Height Weight BMI 62 in 245 lbs 44.97 kg/m2 08/26/2019 Height Weight BMI Blood Pressure 62 in 246 lbs 2.08 oz 45.18 kg/m2 136/73 mm[H g] 07/22/2019 Height Weight BMI Blood Pressure 62 in 247 lbs 6.08 oz 45.41 kg/m2 134/83 mm[H g] 07/11/2019 Height Weight BMI Blood Pressure 62 in 243 lbs 3.04 oz 44.64 kg/m2 149/73 mm[H g] 05/22/2019 Height Weight BMI Blood Pressure 62 in 243 lbs 4 oz 44.65 kg/m2 (1) 142/81 mm[ Hg] (2) 141/81 mm[Hg] 05/14/2019 Height Weight BMI Blood Pressure 62 in 243 lbs 44.61 kg/m2 140/92 mm[Hg] 04/30/2019 Height Weight BMI Blood Pressure 62 in 246 lbs 3.2 oz 45.19 kg/m2 138/90 mm[Hg ] 02/11/2019 Height Weight BMI Blood Pressure 62 in 299 lbs 12.8 oz 55.03 kg/m2 154/93 mm[H g] 01/01/2019 Height Weight BMI Blood Pressure 62 in 284 lbs 6.4 oz 52.21 kg/m2 153/102 mm[H g] 10/18/2018 Height Weight BMI Blood Pressure 62 in 245 lbs 44.97 kg/m2 148/86 mm[Hg] 09/25/2018 Height Weight BMI Blood Pressure 62 in 245 lbs 44.97 kg/m2 117/79 mm[Hg] 03/26/2018 Height Weight BMI Blood Pressure 62 in 236 lbs 43.32 kg/m2 135/79 mm[Hg] 03/20/2018 Height Weight BMI Blood Pressure 62 in 239 lbs 43.87 kg/m2 137/91 mm[Hg]
--- OUTSIDE RECORDS SUMMARY | 2021-01-24 06:46 | CCD ---
Author Author [facility] Organization [facility] Address Unknown Phone Unavailable Care Team Providers Care Mobile Engineer Name Role Phone Jesus Olmos Unavailable PROBLEMS Type Condition ICD9-CM Code [id number] Code Onset Dates Condition S tatus W/U Status Risk SNOMED Code Notes Problem Overflow incontinence N39.490 Active confirmed 324696703 Problem Fibromyalgia M79.7 Active confirmed 6579397 7 Problem Hyperlipidemia E78.5 Active confirmed 69796 004 Problem Sacroiliitis, not elsewhere classified M46.1 A ctive confirmed 198944731 Problem Myalgia M79.1 Active confirmed 78777106 Problem Spondylosis of lumbosacral joint without myelopathy M47.817 Active confirmed 58555787 Problem Spondylosis of lumbosacral region without myelop athy or radiculopathy M47.817 Active confirmed 40601727 Problem Degenerative joint disease i nvolving multiple joints on both sides of body M15.9 Active confirmed 971844729 Problem Essential hypertension I10 Active confirmed 29904453 Problem Contact dermatitis, unspecif ied contact dermatitis type, unspecified trigger L25.9 Active confirmed 19064401 Problem Paroxysmal atrial fibrillation I48.0 Active confir med 658815022 Problem Chronic GERD K21.9 Active confirmed 8508647 09 Problem Chest pain, unspecified type R07.9 Active confirme d 72487295 Problem Spondylosis of lumbar region without myelopathy or radiculopathy M47.816 Active confirmed 24779412 Problem Lumbar facet arthropathy M46.96 Active confirmed 816213762 Problem Non-pressure chronic ulcer o f other part of right lower leg with fat layer exposed L97.812 Active confirmed 105835719 Problem Chronic venous hypertension (idiopathic) with ulcer of right lower extremity I87.311 Active confirmed 435511846 Problem Myalgia, other site M79.18 Active confirmed 34408941 Problem History of tachycardia Z87.898 Active confirmed 001640799 Problem Anxiety disorder, unspecified F41.9 Active confirm ed 994010796 Problem Spondylosis without myelopathy or radiculopathy, lumbosacral region M47.817 Active confirmed 61811171 Problem Anxiety F41.9 Active confirmed 55599672 Problem Major depressive disorder, single episode, unspecified F32.9 Active confirmed 93676454 Problem Other chronic pain G89.29 Active confirmed 8 3477185 Problem Low back pain M54.5 Active confirmed 814745 009 Problem Spondylosis without myelopathy or radiculopathy, lumbar region M47.816 Active confirmed 646459151 Problem History of angina Z86.79 Active confirmed 16 5263554 ALLERGIES Allergen (clinical drug ingredient) Drug/Non Drug Allergy do cumented on EMR Reaction Allergy Type Onset Date Status Tape adhesive Rash Non Drug Allergy Activ e pregabalin Lyrica(NDC Code:[address]-83) Anaphylaxis Drug Allergy Active cymbalta nausea/vomiting Non Drug Allergy Act lonny tizanidine Tizanidine HCl(NDC Code:[address]-16) Hives Drug All ergy Active zipsor swelling,hives Non Drug Allergy Acti ve gabapentin Gabapentin(NDC Code:[address]-15) hallucinations Drug All ergy Active Flexeril aggitation Drug Allergy Active diclofenac Diclofenac Potassium(NDC Code:[address]-37) agg itation (zipsor) Drug Allergy Active Amitriptyline amitriptyline aggitation Non Drug Allergy Ac tive ketorolac Ketorolac Tromethamine(NDC Code:[address]-80) s tomach pain Drug Allergy Active sulfamethoxazole / trimethoprim Bactrim(NDC Code:[address]-08) Nausea/Vomiting Drug Allergy Active ENCOUNTERS from 1965 to 2020-12-14 Encounter Location Date Provider Diagnosis [facility] [address] Floor [phone] [place] [address] Dec, Jesus Rebollaralvo IMMUNIZATIONS Vaccine Route Administration Date Status Benadryl [...] Information RESULTS No Results REASON FOR VISIT informed patient about OR date MEDICAL (GENERAL) HISTORY Type Description Date Medical [...] Dec, 2020 Next Appt Details Provider Name:Jackson Iqbal, 7 08:30:00 AM, [address], , [place], [address], Provider Name:Jesus Olmos, 2021-01-07 10:30:00 AM, [address], , [place], [address], Insurance Providers Payer Name Payer Address Payer Phone Insured Name Patient Relati onship to Insured Coverage Start Date Coverage End Date [facility] [employer] [facility] [address] [facility] [phone] [employer] self
--- OUTSIDE RECORDS SUMMARY | 2021-01-24 06:46 | CCD ---
Author Author [facility] Organization [facility] Address Unknown Phone Unavailable Care Team Providers Care Route Supervisor Name Role Phone Jackson Iqbal Unavailable PROBLEMS Type Condition ICD9-CM Code [id number] Code Onset Dates Condition S tatus W/U Status Risk SNOMED Code Notes Problem Fibromyalgia M79.7 Active confirmed 0577799 7 Problem Sacroiliitis, not elsewhere classified M46.1 A ctive confirmed 878395559 Problem Myalgia M79.1 Active confirmed 93416921 Problem Anxiety disorder, unspecified F41.9 Active confirm ed 583580204 Problem Anxiety F41.9 Active confirmed 31295121 Problem Essential hypertension I10 Active confirmed 04533329 Problem Major depressive disorder, single episode, unspecified F32.9 Active confirmed 34518866 Problem Other chronic pain G89.29 Active confirmed 8 5104931 Problem Myalgia, other site M79.18 Active confirmed 64051794 Problem Hyperlipidemia E78.5 Active confirmed 75936 004 Problem Overflow incontinence N39.490 Active confirmed 348241238 Problem Chronic GERD K21.9 Active confirmed 1265965 09 Problem Chest pain, unspecified type R07.9 Active confirme d 72255471 Problem Spondylosis of lumbar region without myelopathy or radiculopathy M47.816 Active confirmed 06275472 Problem Lumbar facet arthropathy M46.96 Active confirmed 834924189 Problem Spondylosis of lumbosacral joint without myelopathy M47.817 Active confirmed 41298388 Problem Spondylosis of lumbosacral region without myelop athy or radiculopathy M47.817 Active confirmed 95567616 Problem Chronic venous hypertension (idiopathic) with ulcer of right lower extremity I87.311 Active confirmed 272033468 Problem Non-pressure chronic ulcer o f other part of right lower leg with fat layer exposed L97.812 Active confirmed 987273580 Problem Low back pain M54.5 Active confirmed 217490 009 Problem Spondylosis without myelopathy or radiculopathy, lumbar region M47.816 Active confirmed 738630773 Problem Spondylosis without myelopathy or radiculopathy, lumbosacral region M47.817 Active confirmed 18919763 Problem Urge incontinence N39.41 Active confirmed 87 541390 Problem Paroxysmal atrial fibrillation I48.0 Active confir med 456276415 Problem Overactive bladder N32.81 Active confirmed 7 41584522 Problem Degenerative joint disease i nvolving multiple joints on both sides of body M15.9 Active confirmed 159322422 Problem Contact dermatitis, unspecif ied contact dermatitis type, unspecified trigger L25.9 Active confirmed 29025730 Problem History of tachycardia Z87.898 Active confirmed 386971107 Problem History of angina Z86.79 Active confirmed 16 3808635 Problem Obesity without serious sp rbidity, unspecified classification, unspecified obesity type E66.9 Active confirmed 24870 6001 Problem Stress incontinence N39.3 Active confirmed 10630942 ALLERGIES Allergen (clinical drug ingredient) Drug/Non Drug Allergy do cumented on EMR Reaction Allergy Type Onset Date Status diclofenac Diclofenac Potassium(NDC Code:[address]-03) agg itation (zipsor) Drug Allergy Active pregabalin Lyrica(NDC Code:[address]-03) Anaphylaxis Drug Allergy Active duloxetine Cymbalta(NDC Code:[address]-34) nausea/vomiting Drug Jaleel rgy Active tizanidine Tizanidine HCl(NDC Code:[address]-06) Hives Drug All ergy Active gabapentin Gabapentin(NDC Code:[address]-58) hallucinations Drug All ergy Active Flexeril aggitation Drug Allergy Active amitriptyline Amitriptyline HCl(NDC Code:[address]-49) aggitation Drug Allergy Active zipsor swelling,hives Non Drug Allergy Acti ve sulfamethoxazole / trimethoprim Bactrim(NDC Code:[address]-79) Nausea/Vomiting Drug Allergy Active ketorolac Ketorolac Tromethamine(NDC Code:[address]-99) s tomach pain Drug Allergy Active Adhesive Rash Drug Allergy Active ENCOUNTERS from 1965 to 2020-12-27 Encounter Location Date Provider Diagnosis [facility] [address] [phone] [place] [address] Dec, Jackson Iqbal IMMUNIZATIONS Vaccine Route Administration [...] Information RESULTS No Results REASON FOR VISIT appt 01/17/2021 MEDICAL (GENERAL) HISTORY Type Description Date Medical [...] one 2012 Surgical History abscess R groin 2015 Surgical History loop recorder 10/2018 Surgical History [...] Details Provider Name:Jesus Olmos, 2021-01-07 10:30:00 AM, [address] [place] [address], , [place], [address], Provider Name:Jackson Iqbal, 8 10:00:00 AM, [address], , [place], [address], Provider Name:Jesus Olmos, 2021-01-24 08:00:00 AM, [address] [place] [address], , [place], [address], Insurance Providers Payer Name Payer Address Payer Phone Insured Name Patient Relati onship to Insured Coverage Start Date Coverage End Date [facility] [address] [facility] [phone] SMITH VIVEROS self
--- OUTSIDE RECORDS SUMMARY | 2021-01-24 06:47 | CCD ---
Author Author [facility] Organization [facility] Address Unknown Phone Unavailable Care Team Providers Care Audio Recording Engineer Name Role Phone Kanu Stapleton Unavailable PROBLEMS Type Condition ICD9-CM Code GUI55-RV Code Onset Dates Condition S tatus W/U Status Risk SNOMED Code Notes Problem Fibromyalgia M79.7 Active confirmed 1079707 7 Problem Hyperlipidemia E78.5 Active confirmed 81376 004 Problem Sacroiliitis, not elsewhere classified M46.1 A ctive confirmed 114830140 Problem Myalgia M79.1 Active confirmed 84415778 Problem Spondylosis of lumbosacral joint without myelopathy M47.817 Active confirmed 71429825 Problem Spondylosis of lumbosacral region without myelop athy or radiculopathy M47.817 Active confirmed 23784645 Problem Degenerative joint disease i nvolving multiple joints on both sides of body M15.9 Active confirmed 805715797 Problem Essential hypertension I10 Active confirmed 46540347 Problem Contact dermatitis, unspecif ied contact dermatitis type, unspecified trigger L25.9 Active confirmed 04196083 Problem Paroxysmal atrial fibrillation I48.0 Active confir med 032563078 Problem Chronic GERD K21.9 Active confirmed 8850716 09 Problem Chest pain, unspecified type R07.9 Active confirme d 10569072 Problem Spondylosis of lumbar region without myelopathy or radiculopathy M47.816 Active confirmed 55861011 Problem Lumbar facet arthropathy M46.96 Active confirmed 255883411 Problem Non-pressure chronic ulcer o f other part of right lower leg with fat layer exposed L97.812 Active confirmed 167459144 Problem Chronic venous hypertension (idiopathic) with ulcer of right lower extremity I87.311 Active confirmed 962940067 Problem Myalgia, other site M79.18 Active confirmed 97606257 Problem History of tachycardia Z87.898 Active confirmed 405796170 Problem Anxiety disorder, unspecified F41.9 Active confirm ed 816649818 Problem Spondylosis without myelopathy or radiculopathy, lumbosacral region M47.817 Active confirmed 18564092 Problem Anxiety F41.9 Active confirmed 80589958 Problem Major depressive disorder, single episode, unspecified F32.9 Active confirmed 46882056 Problem Other chronic pain G89.29 Active confirmed 8 9483882 Problem Low back pain M54.5 Active confirmed 971496 009 Problem Spondylosis without myelopathy or radiculopathy, lumbar region M47.816 Active confirmed 721834045 Problem History of angina Z86.79 Active confirmed 16 4521964 ALLERGIES Allergen (clinical drug ingredient) Drug/Non Drug Allergy do cumented on EMR Reaction Allergy Type Onset Date Status Tape adhesive Rash Non Drug Allergy Activ e pregabalin Lyrica(NDC Code:[address]-73) Anaphylaxis Drug Allergy Active cymbalta nausea/vomiting Non Drug Allergy Act lonny tizanidine Tizanidine HCl(NDC Code:[address]-42) Hives Drug All ergy Active zipsor swelling,hives Non Drug Allergy Acti ve gabapentin Gabapentin(NDC Code:[address]-51) hallucinations Drug All ergy Active Flexeril aggitation Drug Allergy Active diclofenac Diclofenac Potassium(NDC Code:[address]-16) agg itation (zipsor) Drug Allergy Active Amitriptyline amitriptyline aggitation Non Drug Allergy Ac tive ketorolac Ketorolac Tromethamine(NDC Code:[address]-94) s tomach pain Drug Allergy Active sulfamethoxazole / trimethoprim Bactrim(NDC Code:[address]-99) Nausea/Vomiting Drug Allergy Active ENCOUNTERS from 1965 to 2020-11-02 Encounter Location Date Provider Diagnosis [facility] [address] [phone] [place] [address] Oct, Kanu Stapleton COVID-19 U07.1 IMMUNIZATIONS Vaccine Route Administration Date Status Benadryl [...] FOR REFERRAL No Information VITAL SIGNS Weight 262 lbs Oct, Weight-kg 118.84 kg Oct, Height 61 in Oct, BMI 49.50 kg/m2 Oct, Oximetry 97-98% Oct, MEDICATIONS Medication SIG (Take, Route, Frequency, Duration) Notes Start Da te End Date Status Belbuca 150 MCG 1 film to the gum Bucally Once a day for 30 days Apr, Not-Taking Eliquis 5 MG 1 tab(s) Orally twice daily for 90 days LAST DOSE 2020 Active May Use - CBD oil0(OTC) 2 gtts orally pt takes on her own as needed Not-Taking Robaxin 500 MG 1.5 tablets Orally every 4 hrs for 30 day(s) Nov, Not-Taking Metoprolol Succinate 100 MG 1 capsule Orally Once a day Active Baclofen 5 MG 1 tablet with food or milk Orally Three times a day for 30 days Dec, Not-Taking Sucralfate 1 GM 1 tablet Orally Twice a day Active Nitroglycerin 0.4 MG as directed Sublingual Every 5 min: MDD 3 tablets for 30 day(s) Nov, Active Carisoprodol 350 MG 1 tablet as needed Orally Daily for 30 days Feb, Not-Taking Butrans 20 MCG/HR 1 patch to skin Transdermal 1 patch q7 d ays=MDD for 30 Days 09/07Apr, Not-Taking Skelaxin 800 MG 1 tablet Orally three times daily as needed Not-Taking Belbuca 75 MCG 1 film to the gum Bucally for pain bid for 30 da ys Oct, Active Furosemide 20 MG 1 tablet Orally Once a day for 30 day(s) Not-Taking HYDROcodone-Acetaminophen 5-325 MG 1 tablet as needed Orally for pain Daily MDD1 Sep, Active Protonix 40 MG 1 tablet Orally bid [...] Information RESULTS No Results REASON FOR VISIT COVID F/U; telemedicine visit MEDICAL (GENERAL) HISTORY Type Description Date Medical [...] Unsteady Gait Medical History Low Back Pain Surgical History Tubal ligation 1987 Surgical History [...] Hospitalization History chest pain 10/20/2016 Hospitalization History [facility] 09/2017 Hospitalization History Diverticulitis and /hypotension 06/29 18 Hospitalization History syncope 09/2018 Hospitalization History a-fib and loop recorder 10/2018 Goals Section No Information Health Concerns No Information MEDICAL EQUIPMENT No Information MENTAL STATUS No Information FUNCTIONAL STATUS No Information ASSESSMENTS Encounter Date Diagnosis Assessment Notes Treatment Notes Treatm ent Clinical Notes Oct, COVID-19 (ICD-10 - U07.1) Patient is currently day#4 since diagnosis, day#9 since start of symptoms. Reports that she continues to get better with each day. She still has fatigue, mild cough and changes in her taste and smell. SpO2 has remained 97-98%. Patient was advised to continue to monitor twice daily. If she does note readings slipping into the 80's, patient was advised to present to the ED for further evaluation and management. Patient verbalized understanding with the plan. PLAN OF TREATMENT Treatment Notes Assessment Notes Clinical Notes COVID-19 Patient is currently day#4 since diagnosis, day#9 since start of symptoms. Reports that she continues to get better with each day. She still has fatigue, mild cough and changes in her taste and smell. SpO2 has remained 97- 98%. Patient was advised to continue to monitor twice daily. If she does note readings slipping into the 80's, patient was advised to present to the ED for further evaluation and management. Patient verbalized understanding with the plan. Next Appt Details Telephone visit on Sunday Reason: Insurance Providers Payer Name Payer Address Payer Phone Insured Name Patient Relati onship to Insured Coverage Start Date Coverage End Date [facility] COMM[facility]AN [employer] [address] [facility] [address] [phone] SMITH VIVEROS self
--- OUTSIDE RECORDS SUMMARY | 2021-01-24 06:47 | CCD ---
Author Author [facility] Organization [facility] Address Unknown Phone Unavailable Care Team Providers Care Apartment Community Assistant Manager Name Role Phone Jesus Olmos Unavailable PROBLEMS Type Condition ICD9-CM Code FWB46-RK Code Onset Dates Condition S tatus W/U Status Risk SNOMED Code Notes Problem Overflow incontinence N39.490 Active confirmed 912200812 Problem Fibromyalgia M79.7 Active confirmed 6799440 7 Problem Hyperlipidemia E78.5 Active confirmed 08905 004 Problem Sacroiliitis, not elsewhere classified M46.1 A ctive confirmed 691764801 Problem Myalgia M79.1 Active confirmed 13242216 Problem Spondylosis of lumbosacral joint without myelopathy M47.817 Active confirmed 57196759 Problem Spondylosis of lumbosacral region without myelop athy or radiculopathy M47.817 Active confirmed 61094739 Problem Degenerative joint disease i nvolving multiple joints on both sides of body M15.9 Active confirmed 619782526 Problem Essential hypertension I10 Active confirmed 46802772 Problem Contact dermatitis, unspecif ied contact dermatitis type, unspecified trigger L25.9 Active confirmed 21561240 Problem Paroxysmal atrial fibrillation I48.0 Active confir med 186777573 Problem Chronic GERD K21.9 Active confirmed 9155888 09 Problem Chest pain, unspecified type R07.9 Active confirme d 93696073 Problem Spondylosis of lumbar region without myelopathy or radiculopathy M47.816 Active confirmed 27609962 Problem Lumbar facet arthropathy M46.96 Active confirmed 635932177 Problem Non-pressure chronic ulcer o f other part of right lower leg with fat layer exposed L97.812 Active confirmed 812950687 Problem Chronic venous hypertension (idiopathic) with ulcer of right lower extremity I87.311 Active confirmed 491750286 Problem Myalgia, other site M79.18 Active confirmed 18940124 Problem History of tachycardia Z87.898 Active confirmed 445358273 Problem Anxiety disorder, unspecified F41.9 Active confirm ed 811897969 Problem Spondylosis without myelopathy or radiculopathy, lumbosacral region M47.817 Active confirmed 36774459 Problem Anxiety F41.9 Active confirmed 35661266 Problem Major depressive disorder, single episode, unspecified F32.9 Active confirmed 40917089 Problem Other chronic pain G89.29 Active confirmed 8 4239733 Problem Low back pain M54.5 Active confirmed 192802 009 Problem Spondylosis without myelopathy or radiculopathy, lumbar region M47.816 Active confirmed 308092813 Problem History of angina Z86.79 Active confirmed 16 3356240 ALLERGIES Allergen (clinical drug ingredient) Drug/Non Drug Allergy do cumented on EMR Reaction Allergy Type Onset Date Status Tape adhesive Rash Non Drug Allergy Activ e pregabalin Lyrica(NDC Code:[address]-39) Anaphylaxis Drug Allergy Active cymbalta nausea/vomiting Non Drug Allergy Act lonny tizanidine Tizanidine HCl(NDC Code:[address]-42) Hives Drug All ergy Active zipsor swelling,hives Non Drug Allergy Acti ve gabapentin Gabapentin(NDC Code:[address]-14) hallucinations Drug All ergy Active Flexeril aggitation Drug Allergy Active diclofenac Diclofenac Potassium(NDC Code:[address]-64) agg itation (zipsor) Drug Allergy Active Amitriptyline amitriptyline aggitation Non Drug Allergy Ac tive ketorolac Ketorolac Tromethamine(NDC Code:[address]-22) s tomach pain Drug Allergy Active sulfamethoxazole / trimethoprim Bactrim(NDC Code:[address]-35) Nausea/Vomiting Drug Allergy Active ENCOUNTERS from 1965 to 2020-12-14 Encounter Location Date Provider Diagnosis [facility] [address] Floor [phone] [place] [address] Dec, Jesus Olmos Intervertebral disc disorders with radiculopathy, lumbar region M51.16 IMMUNIZATIONS Vaccine Route Administration Date Status Benadryl [...] FOR REFERRAL No Information VITAL SIGNS Weight 263.4 lbs Dec, Weight-kg 119.48 kg Dec, Height 61 in Dec, BMI 49.76 kg/m2 Dec, Heart Rate 85 /min Dec, Respiratory Rate 18 /min Dec, Temperature 98.2 degrees Fahrenheit Dec, Oximetry 97% Dec, Blood pressure systolic 139 mm Hg Dec, Blood pressure diastolic 70 mm Hg Dec, MEDICATIONS Medication SIG (Take, [...] Information RESULTS No Results REASON FOR VISIT discuss procedures MEDICAL (GENERAL) HISTORY Type Description Date Medical [...] Treatment Notes Treatm ent Clinical Notes Dec, Intervertebral disc disorder s with radiculopathy, lumbar region (ICD-10 - M51.16) Dr. Olmos and I discussed interventional options with the patient and the plan of care moving forward will be to see the patient at the end of the month for presedate and book her procedure in the OR to due her history of vasovagal episodes, cardiac history. We will request authorization for Bilateral transforaminal epidural steriod injection L4-L5, L5-S1 with the intention of only doing one level after futher determing where her pain is located under fluoroscopy. To help better control her pain until her procedure, we will increase her belbuca to 150mcg films. Dicussed risks with patient, possible drowsiness, oversedation. ISTOP registry reviewed and demonstrates compliance. Recent urine toxicology reviewed. No unauthorized medications. No illicit substances. We will send a Doctor to Doctor agreement to Dr. Romero, her PCP, to determine his level of comfort with her current pain medication regimen. We will follow up at the end of the month for a presedate appointment or sooner for concerns. Patient verbalized understanding and was agreeable to the plan of care. Lila Rosales REPORT ANALYST-C PLAN OF TREATMENT Medication Medication Name Sig Start Date Stop Date Belbuca 150 MCG 1 film to the gum Bucally bid MDD2 for 30 days 0 1 Dec, 2020 Treatment Notes Assessment Notes Clinical Notes Intervertebral disc disorders with radiculopathy, lumb ar region Dr. Olmos and I discussed interventional options with the patient and the plan of care moving forward will be to see the patient at the end of the month for presedate and book her procedure in the OR to due her history of vasovagal episodes, cardiac history. We will request authorization for Bilateral transforaminal epidural steriod injection L4-L5, L5-S1 with the intention of only doing one level after futher determing where her pain is located under fluoroscopy. To help better control her pain until her procedure, we will increase her belbuca to 150mcg films. Dicussed risks with patient, possible drowsiness, oversedation. ISTOP registry reviewed and demonstrates compliance. Recent urine toxicology reviewed. No unauthorized medications. No illicit substances. We will send a Doctor to Doctor agreement to Dr. Romero, her PCP, to determine his level of comfort with her current pain medication regimen. We will follow up at the end of the month for a presedate appointment or sooner for concerns. Patient verbalized understanding and was agreeable to the plan of care.Lila Rosales REPORT ANALYST-C Next Appt Details 1 month (End december) Request authori zation for Bilateral transforaminal epidural steriod injection L4-L5, L5-S1 in the OR Reason:Presedate for OR with Dr. Olmos - Request authorization for Bilateral transforaminal epidural steriod injection L4-L5, L5-S1 Provider Name:Jackson Gianni Iqbal, 7 08:30:00 AM, [address], , [place], [address], Provider Name:Jesus Olmos, 2021-01-07 10:30:00 AM, [address], , [place], [address], Follow Up:1 month (End december) Request authorization for Bilateral transforaminal epidural steriod injection L4-L5, L5-S1 in the ORPresedate for OR with Dr. Olmos - Request authorization for Bilateral transforaminal epidural steriod injection L4-L5, L5-S1 Insurance Providers Payer Name Payer Address Payer Phone Insured Name Patient Relati onship to Insured Coverage Start Date Coverage End Date [facility] COMM[facility] [address] [facility] [address] SMITH VIVEROS self
--- OUTSIDE RECORDS SUMMARY | 2021-01-24 06:47 | CCD ---
Author Author [facility] Organization [facility] Address Unknown Phone Unavailable Care Team Providers Care Astronomy Instructor Name Role Phone April Stapleton Unavailable PROBLEMS Type Condition ICD9-CM Code [id number] Code Onset Dates Condition S tatus W/U Status Risk SNOMED Code Notes Problem Fibromyalgia M79.7 Active confirmed 7962072 7 Problem Hyperlipidemia E78.5 Active confirmed 43839 004 Problem Sacroiliitis, not elsewhere classified M46.1 A ctive confirmed 817888996 Problem Myalgia M79.1 Active confirmed 56943665 Problem Spondylosis of lumbosacral joint without myelopathy M47.817 Active confirmed 98883058 Problem Spondylosis of lumbosacral region without myelop athy or radiculopathy M47.817 Active confirmed 21894531 Problem Degenerative joint disease i nvolving multiple joints on both sides of body M15.9 Active confirmed 162657608 Problem Essential hypertension I10 Active confirmed 09783005 Problem Contact dermatitis, unspecif ied contact dermatitis type, unspecified trigger L25.9 Active confirmed 23548067 Problem Paroxysmal atrial fibrillation I48.0 Active confir med 718652547 Problem Chronic GERD K21.9 Active confirmed 3925609 09 Problem Chest pain, unspecified type R07.9 Active confirme d 88746064 Problem Spondylosis of lumbar region without myelopathy or radiculopathy M47.816 Active confirmed 94212795 Problem Lumbar facet arthropathy M46.96 Active confirmed 450641811 Problem Non-pressure chronic ulcer o f other part of right lower leg with fat layer exposed L97.812 Active confirmed 393964948 Problem Chronic venous hypertension (idiopathic) with ulcer of right lower extremity I87.311 Active confirmed 079646143 Problem Myalgia, other site M79.18 Active confirmed 44003424 Problem History of tachycardia Z87.898 Active confirmed 375226226 Problem Anxiety disorder, unspecified F41.9 Active confirm ed 061294037 Problem Spondylosis without myelopathy or radiculopathy, lumbosacral region M47.817 Active confirmed 57604690 Problem Anxiety F41.9 Active confirmed 85604324 Problem Major depressive disorder, single episode, unspecified F32.9 Active confirmed 91525615 Problem Other chronic pain G89.29 Active confirmed 8 0587551 Problem Low back pain M54.5 Active confirmed 976908 009 Problem Spondylosis without myelopathy or radiculopathy, lumbar region M47.816 Active confirmed 864910281 Problem History of angina Z86.79 Active confirmed 16 3477603 ALLERGIES Allergen (clinical drug ingredient) Drug/Non Drug Allergy do cumented on EMR Reaction Allergy Type Onset Date Status Tape adhesive Rash Non Drug Allergy Activ e pregabalin Lyrica(NDC Code:[address]-80) Anaphylaxis Drug Allergy Active cymbalta nausea/vomiting Non Drug Allergy Act lonny tizanidine Tizanidine HCl(NDC Code:[address]-23) Hives Drug All ergy Active zipsor swelling,hives Non Drug Allergy Acti ve gabapentin Gabapentin(NDC Code:[address]-83) hallucinations Drug All ergy Active Flexeril aggitation Drug Allergy Active diclofenac Diclofenac Potassium(NDC Code:[address]-17) agg itation (zipsor) Drug Allergy Active Amitriptyline amitriptyline aggitation Non Drug Allergy Ac tive ketorolac Ketorolac Tromethamine(NDC Code:[address]-93) s tomach pain Drug Allergy Active sulfamethoxazole / trimethoprim Bactrim(NDC Code:[address]-24) Nausea/Vomiting Drug Allergy Active ENCOUNTERS from 1965 to 2020-11-03 Encounter Location Date Provider Diagnosis [facility] [phone] [place] [address] Oct, April Stapleton COVID-19 U07.1 IMMUNIZATIONS Vaccine Route Administration [...] Information RESULTS No Results REASON FOR VISIT followup,per april MEDICAL (GENERAL) HISTORY Type Description Date Medical [...] COVID-19 (ICD-10 - U07.1) Patient is currently day#7 since diagnosis, day#12 since start of symptoms. Reports that she continues to get better with each day. She still has fatigue and nasal congestion. SpO2 has remained 98-99%. Patient was advised to continue to monitor twice daily. If she does note readings slipping into the 80's, patient was advised to present to the ED for further evaluation and management. Patient verbalized understanding with the plan. PLAN OF TREATMENT Treatment Notes Assessment Notes Clinical Notes COVID-19 Patient is currently day#7 since diagnosis, day#12 since start of symptoms. Reports that she continues to get better with each day. She still has fatigue and nasal congestion. SpO2 has remained 98-99%. Patient was advised to continue to monitor twice daily. If she does note readings slipping into the 80's, patient was advised to present to the ED for further evaluation and management. Patient verbalized understanding with the plan. Next Appt Details as needed Reason: Insurance Providers Payer Name Payer Address Payer Phone Insured Name Patient Relati onship to Insured Coverage Start Date Coverage End Date [facility] PLAN [facility] [address] [facility] [address] [employer] VIVEROS self
--- OUTSIDE RECORDS SUMMARY | 2021-01-24 06:47 | CCD ---
Author Author [facility] Organization [facility] Address Unknown Phone Unavailable Care Team Providers Care Banking Assistant Name Role Phone Jesus Olmos Unavailable PROBLEMS Type Condition ICD9-CM Code KLJ72-BL Code Onset Dates Condition S tatus W/U Status Risk SNOMED Code Notes Problem Fibromyalgia M79.7 Active confirmed 0294536 7 Problem Hyperlipidemia E78.5 Active confirmed 19620 004 Problem Sacroiliitis, not elsewhere classified M46.1 A ctive confirmed 400554548 Problem Myalgia M79.1 Active confirmed 93030669 Problem Spondylosis of lumbosacral joint without myelopathy M47.817 Active confirmed 41644367 Problem Spondylosis of lumbosacral region without myelop athy or radiculopathy M47.817 Active confirmed 67679652 Problem Degenerative joint disease i nvolving multiple joints on both sides of body M15.9 Active confirmed 799932863 Problem Essential hypertension I10 Active confirmed 76021613 Problem Contact dermatitis, unspecif ied contact dermatitis type, unspecified trigger L25.9 Active confirmed 36453752 Problem Paroxysmal atrial fibrillation I48.0 Active confir med 023894610 Problem Chronic GERD K21.9 Active confirmed 1034445 09 Problem Chest pain, unspecified type R07.9 Active confirme d 03876140 Problem Spondylosis of lumbar region without myelopathy or radiculopathy M47.816 Active confirmed 30247819 Problem Lumbar facet arthropathy M46.96 Active confirmed 974798842 Problem Non-pressure chronic ulcer o f other part of right lower leg with fat layer exposed L97.812 Active confirmed 002138764 Problem Chronic venous hypertension (idiopathic) with ulcer of right lower extremity I87.311 Active confirmed 347758508 Problem Myalgia, other site M79.18 Active confirmed 95550277 Problem History of tachycardia Z87.898 Active confirmed 323625691 Problem Anxiety disorder, unspecified F41.9 Active confirm ed 891932631 Problem Spondylosis without myelopathy or radiculopathy, lumbosacral region M47.817 Active confirmed 43957099 Problem Anxiety F41.9 Active confirmed 97527747 Problem Major depressive disorder, single episode, unspecified F32.9 Active confirmed 87285727 Problem Other chronic pain G89.29 Active confirmed 8 5315691 Problem Low back pain M54.5 Active confirmed 758875 009 Problem Spondylosis without myelopathy or radiculopathy, lumbar region M47.816 Active confirmed 093354944 Problem History of angina Z86.79 Active confirmed 16 5928457 ALLERGIES Allergen (clinical drug ingredient) Drug/Non Drug Allergy do cumented on EMR Reaction Allergy Type Onset Date Status Tape adhesive Rash Non Drug Allergy Activ e pregabalin Lyrica(NDC Code:[address]-30) Anaphylaxis Drug Allergy Active cymbalta nausea/vomiting Non Drug Allergy Act lonny tizanidine Tizanidine HCl(NDC Code:[address]-44) Hives Drug All ergy Active zipsor swelling,hives Non Drug Allergy Acti ve gabapentin Gabapentin(NDC Code:[address]-37) hallucinations Drug All ergy Active Flexeril aggitation Drug Allergy Active diclofenac Diclofenac Potassium(NDC Code:[address]-94) agg itation (zipsor) Drug Allergy Active Amitriptyline amitriptyline aggitation Non Drug Allergy Ac tive ketorolac Ketorolac Tromethamine(NDC Code:[address]-13) s tomach pain Drug Allergy Active sulfamethoxazole / trimethoprim Bactrim(NDC Code:[address]-70) Nausea/Vomiting Drug Allergy Active ENCOUNTERS from 1965 to 2020-10-27 Encounter Location Date Provider Diagnosis [facility] [address] [facility] [phone] [place] [address] Oct, Jesus Olmos IMMUNIZATIONS Vaccine Route Administration Date Status Benadryl [...] RESULTS No Results REASON FOR VISIT COVID 19 MEDICAL (GENERAL) HISTORY Type Description Date Medical [...] Information ASSESSMENTS No Information PLAN OF TREATMENT Next Appt Details Provider Name:Kanu Stapleton, 2020-10-29 08:45:00 AM, [address], , [place], [address], Insurance Providers Payer Name Payer Address Payer Phone Insured Name Patient Relati onship to Insured Coverage Start Date Coverage End Date [facility] COMM[facility] PLAN [facility] [address] [facility] [address] [employer] self
--- OUTSIDE RECORDS SUMMARY | 2021-01-24 06:47 | CCD ---
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 2 [phone] JENELLE CASTILLO MD 2 [phone] Allergies Code Code System Name Reaction Severity Status Onset 072140 RxNorm Bactrim Active 08/30/2017 2670 RxNorm Codeine Active 08/30/2017 Cyclobenzaprine Active 08/30/2017 480889 RxNorm Cymbalta Active 08/30/2017 3355 RxNorm Diclofenac Active 08/30/2017 371741 RxNorm Lyrica Active 08/30/2017 10065 RxNorm Metaxalone Deactivated 08/30/2017 Shellfish Containing Products [...] 06/04/2020 Belbuca 150 mcg buccal film DISSOLVE ONE FILM ON GUM ONCE DAILY Completed 02/2020 Belbuca 75 mcg buccal film DISSOLVE 1 [...] TAKE ONE TABLET BY MOUTH EVERY EVENING Active Not available lisinopril 10 mg tablet TAKE ONE TABLET BY MOUTH AT BEDTIME Completed 02/2020 meclizine 25 mg tablet take one tablet by mouth twice daily Completed metaxalone 800 mg tablet TAKE ONE TABLET BY MOUTH THREE TIMES DAILY NEEDED FOR PAIN AND SPASMS Active Not available metoprolol tartrate 25 mg tablet TAKE ONE TABLET BY MOUTH TWICE DAILY Completed metoprolol tartrate 50 mg tablet TAKE ONE TABLET BY MOUTH TWICE DAILY Active No t available nitrofurantoin monohydrate/macrocrystals 100 mg capsule Complete d 05/03/[address] [facility] 100,000 unit/gram topical powder apply topically TO affected area(s) TWICE DAILY DIRECTED Completed 01/22/2020 omeprazole 40 mg capsule,delayed release TAKE ONE CAPSULE BY MOUTH ONCE DAILY Active No t available ondansetron 4 mg disintegrating tablet TAKE ONE TABLET BY MOUTH EVERY 6 TO 8 HOURS NEEDED FOR NAUSEA AND/OR VOMITING Active Not available oxybutynin chloride 5 mg tablet Take 1 tablet twice a day by oral route. Active Not available oxycodone-acetaminophen 5 mg-325 mg tablet Completed [...] Histor y Clinical Finding Unknown 07/22/2019 History [place] Lesion of Lung Active 12/19/2019 History Large Liver Active 05/03/2020 Covid-19 Active 10/26/2020 Procedures Date Name Performed by Cholecystectomy Information not avai lable Hysterectomy Information not avai lable 05/03/2020 US, Liver [facility] nter Radiology [address] [place] [address] (Work Place) 05/03/2020 MAMMO, Screening, Digital, Bilateral [facility] [address] [place] [address] (Work Place) 05/03/2020 CT, Chest, W/o Contrast [facility] Radiology [address] [place] [address] (Work Place) Notes: 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, left shou lder Results Lab Results Date Name Specimen Result Interpretation Description Value Range Status Address 08/23/2020 Urinalysis, Complete Color tnp Final [facility]: [address] [facility] 08/23/2020 Patient Id Approval Tiq Documentation Co mment Final [facility]: [address] [facility] Contact macy Lindo [facility]: 5 [facility] Tests Affected all Final [facility]: [address] [facility] 08/23/2020 Culture, Urine Culture, Urine, Routine see note [facility]: [address] [facility] 07/21/2020 D-dimer, Quant, Plasma High D-dimer Quant 706.82 NG/mL <500 NG/mL [facility]: 83 0 [facility] 07/21/2020 Cardiovascular Assessment Panel, Serum Normal CPK Creatine Phosphokinase 138 U/L 26-192 U/L [facility]: 830 [facility] Normal CK-mb Value Mass < 1.0 NG/mL <3.6 NG /mL [facility]: 0 [facility] Normal mb/CK Relative Index 0.72 < or =4 [facility]: [address] [place] [address] Normal Troponin I < 0.02 NG/mL < 0.10 NG/mL [facility]: 830 [facility] 07/21/2020 Hepatic Function Panel, Serum High AST/SG OT 53 U/L 7-37 U/L [facility]: 830 [facility] Normal ALT/SGPT 53 U/L 12-78 U/L [facility]: 830 [facility] Normal Alkaline Phosphatase 99 U/L 45-117 U /L [facility]: 0 [facility] Normal Bilirubin,total 0.6 mg/dL 0.2-1.0 mg /dL [facility]: 0 [facility] Normal Bilirubin,direct 0.1 mg/dL 0.0-0.2 m g/dL [facility]: 0 [facility] Low Total Protein 6.1 gm/dL 6.4-8.2 gm/d L [facility]: 0 [facility] Normal Albumin 3.2 gm/dL 3.2-5.2 gm/dL Tram l [facility]: [address] [place] [address] Low Albumin/globulin Ratio 1.1 1.2-2. 2 [facility]: 0 [facility] 07/21/2020 BMP, Serum or Plasma Normal Glucose, Fastin g 88 mg/dL 70-100 mg/dL [facility]: 83 0 [facility] Normal Blood Urea Nitrogen 7 mg/dL 7-18 mg/ dL [facility]: 0 [facility] Normal Creatinine for GFR 0.77 mg/dL 0.55-1 .30 mg/dL [facility]: 0 [facility] Normal Glomerular Filtration Rate > 60.0 >[address] [facility]: 0 [facility] Normal Sodium Level 141 mEq/L 136-145 mEq/L [facility]: 830 [facility] Normal Potassium Serum 4.1 mEq/L 3.5-5.1 mE q/L [facility]: [address] [place] [address] High Chloride Level 109 mEq/L 98-107 mEq/ L [facility]: 0 [facility] Normal Carbon Dioxide Level 28 mEq/L 21-32 mEq/L [facility]: [address] [place] [address] Low Anion Gap 4 mEq/L 8-16 mEq/L [facility]: [address] [place] [address] Normal Calcium Level 9.2 mg/dL 8.5-10.1 mg/ dL [facility]: [address] [place] [address] 07/21/2020 Pro BNP (Pro B-type Natriuretic Peptide), Serum or Plasma High Nt-pro BNP 224 pg/mL <125 pg/mL [facility]: [address] [place] [address] 07/21/2020 Urinalysis, Dipstick Normal Appearance, Urine hazy clear [facility]: 0 [facility] Normal Color, Urine straw yellow [facility]: 0 [facility] Normal pH,urine 6.0 units 5.0-9.0 units Fin [facility]: [address] [place] [address] Low Specific [place] Urine Auto 1.001 1 .002-1.035 [facility]: 0 [facility] Normal Protein, Urine Auto negative mg/dL n egative mg/dL [facility]: 0 [facility] Normal Glucose, Urine (UA) Auto negative mg /dL negative mg/dL [facility]: 0 [facility] Normal Ketone, Urine Auto negative mg/dL ne gative mg/dL [facility]: 0 [facility] Normal Urobilinogen, Urine Auto 0.2 mg/dL 0 .0-2.0 mg/dL [facility]: 0 [facility] Normal Bilirubin, Urine Auto negative negat lonny [facility]: 830 [facility] Normal Nitrite, Urine Auto negative negativ e [facility]: 830 [facility] High Leukocyte Esterase, Urine Auto 2+ negative [facility]: 830 [facility] Normal Blood, Urine Blood negative negative [facility]: 830 [facility] High WBC, Urine Auto 4 /hpf 0-3 /hpf [facility]: 830 [facility] Normal RBC, Urine Auto 1 /hpf 0-3 /hpf [facility]: 830 [facility] High Bacteria, Urine Auto 1+ negative [facility]: 830 [facility] Normal Squamous Epithelial Cell Ur AU 2 /hp f 0-6 /hpf [facility]: 830 [facility] Normal Hyaline Cast, Urine Auto 0 /lpf 0-1 /lpf [facility]: 830 [facility] 07/21/2020 CBC W/ Auto Diff Low White Blood Count 3.6 10 4.0-10.[address] [facility]: 830 [facility] Normal Red Blood Count 4.52 10 4.00-5.[address] [facility]: 830 [facility] Normal Hemoglobin 13.7 g/dL 12.0-15.5 g/dL [facility]: 830 [facility] Normal Hematocrit 41.2 % 36.0-47.0 % [facility]: 830 [facility] Normal Mean Corpuscular Volume 91.2 fL 80.0 -96.[address] [facility]: 830 [facility] Normal Mean Corpuscular Hemoglobin 30.3 pg 27.0-33.[address] [facility]: 830 [facility] Normal Mean Corpuscular HGB Conc 33.3 g/dL 32.0-36.5 g/dL [facility]: 0 [facility] Normal Red Cell Distribution Width 12.9 % 1 1.5-14.5 % [facility]: 830 [facility] Normal Platelet Count, Automated 166 10 150 -[address] [facility]: 830 [facility] Normal Neutrophils % 49.9 % 36.0-66.0 % [facility]: 830 [facility] Normal Lymph % 37.0 % 24.0-44.0 % [facility]: 830 [facility] High Bertie % 10.3 % 2.0-8.0 % [facility]: 830 [facility] Normal Eos % 1.9 % 0.0-3.0 % [facility]: 830 [facility] Normal Baso % 0.6 % 0.0-1.0 % [facility]: 830 [facility] Normal Immature Granulocyte % 0.3 % 0-3.0 % [facility]: 830 [facility] Normal Nucleated Red Blood Cell % 0.0 % 0- 0 % [facility]: 830 [facility] Normal Neutrophils # 1.8 10 1.5-8.5 10 [facility]: 830 [facility] Low Lymph # 1.3 10 1.5-5.0 10 [facility]: 830 [facility] Normal Bertie # 0.4 10 0.0-0.8 10 [facility]: 830 [facility] Normal Eos # 0.1 10 0.0-0.5 10 [facility]: 830 [facility] Normal Baso # 0.0 10 0.0-0.2 10 [facility]: 830 [facility] 06/16/2020 UA W/ Reflex to Culture Normal Appearance, Urine Rfx clear clear [facility]: 83 0 [facility] Normal Color, Urine Rfx yellow yellow [facility]: 830 [facility] Normal pH,urine Rfx 5.0 units 5.0-9.[address] [facility]: 830 [facility] Normal Specific [place] Ur Auto Rfx 1.011 1.002-1.035 [facility]: 830 [facility] Normal Protein, Urine Auto Rfx negative mg/ dL negative mg/dL [facility]: 830 [facility] Normal Glucose, Urine (UA) Auto Rfx n egative mg/dL negative mg/dL [facility]: 830 [facility] High Ketone, Urine Auto Rfx 1+ mg/dL nega tive mg/dL [facility]: 830 [facility] High Urobilinogen, Urine Auto Rfx 2.0 mg/ dL 0.0-2.0 mg/dL [facility]: 830 [facility] Normal Bilirubin, Urine Auto Rfx negative n egative [facility]: 830 [facility] Normal Nitrite, Urine Auto Rfx negative neg ative [facility]: 830 [facility] Normal Leukocyte Esterase Ur Auto Rfx negat lonny negative [facility]: 830 [facility] Normal Blood, Urine Blood Rfx negative nega tive [facility]: 830 [facility] Normal WBC, Urine Auto Rfx 1 /hpf 0-3 /hpf [facility]: 830 [facility] Normal RBC, Urine Auto Rfx 1 /hpf 0-3 /hpf [facility]: 830 [facility] High Bacteria, Urine Auto Rfx 1+ nega tive [facility]: 830 [facility] Normal Squam Epithelial Cell Ur Aurfx 1 /hp f 0-6 /hpf [facility]: 830 [facility] Normal Mucus, Urine Rfx small negative Fin [facility]: 830 [facility] Normal Hyaline Cast, Urine Auto Rfx 0 /lpf 0-1 /lpf [facility]: 830 [facility] 06/16/2020 CBC W/ Auto Diff Low White Blood Count 3.9 10 4.0-10.[address] [facility]: 830 [facility] Normal Red Blood Count 4.75 10 4.00-5.[address] [facility]: 830 [facility] Normal Hemoglobin 14.3 g/dL 12.0-15.5 g/dL [facility]: [address] [place] [address] Normal Hematocrit 44.0 % 36.0-47.0 % [facility]: [address] [place] [address] Normal Mean Corpuscular Volume 92.6 fL 80.0 -96.[address] [facility]: [address] [place] [address] Normal Mean Corpuscular Hemoglobin 30.1 pg 27.0-33.[address] [facility]: [address] [place] [address] Normal Mean Corpuscular HGB Conc 32.5 g/dL 32.0-36.5 g/dL [facility]: [address] [place] [address] Normal Red Cell Distribution Width 12.6 % 1 1.5-14.5 % [facility]: [address] [place] [address] Normal Platelet Count, Automated 157 10 150 -[address] [facility]: 0 [facility] Normal Neutrophils % 65.7 % 36.0-66.0 % [facility]: 830 [facility] Low Lymph % 19.1 % 24.0-44.0 % [facility]: 830 [facility] High Bertie % 11.6 % 2.0-8.0 % [facility]: 830 [facility] Normal Eos % 2.3 % 0.0-3.0 % [facility]: 0 [facility] Normal Baso % 0.8 % 0.0-1.0 % [facility]: [address] [place] [address] Normal Immature Granulocyte % 0.5 % 0-3.0 % [facility]: 0 [facility] Normal Nucleated Red Blood Cell % 0.0 % 0- 0 % [facility]: 830 [facility] Normal Neutrophils # 2.6 10 1.5-8.5 10 [facility] 830 [facility] Low Lymph # 0.7 10 1.5-5.0 10 [facility]: 0 [facility] Normal Bertie # 0.5 10 0.0-0.8 10 [facility]: 830 [facility] Normal Eos # 0.1 10 0.0-0.5 10 [facility]: 830 [facility] Normal Baso # 0.0 10 0.0-0.2 10 [facility]: 0 [facility] 06/16/2020 Lactic Acid, Serum or Plasma Normal Lactic Acid Sepsis Protocol 1.0 mmol/L 0.4-2.0 mmol/L [facility]: [address] [place] [address] 06/16/2020 Cardiovascular Assessment Panel, Serum Normal CPK Creatine Phosphokinase 59 U/L 26-192 U/L [facility]: [address] [place] [address] Normal CK-mb Value Mass < 1.0 NG/mL <3.6 NG /mL [facility]: [address] [place] [address] Normal mb/CK Relative Index 1.69 < or =4 [facility]: [address] [place] [address] Normal Troponin I < 0.02 NG/mL < 0.10 NG/mL [facility]: [address] [place] [address] 06/16/2020 Hepatic Function Panel, Serum Normal AST/SG OT 31 U/L 7-37 U/L [facility]: 0 [facility] Normal ALT/SGPT 32 U/L 12-78 U/L [facility]: 0 [facility] Normal Alkaline Phosphatase 99 U/L 45-117 U /L [facility]: [address] [place] [address] Normal Bilirubin,total 0.4 mg/dL 0.2-1.0 mg /dL [facility]: 830 [facility] Normal Bilirubin,direct 0.1 mg/dL 0.0-0.2 m g/dL [facility]: 830 [facility] Low Total Protein 6.2 gm/dL 6.4-8.2 gm/d L [facility]: 830 [facility] Normal Albumin 3.2 gm/dL 3.2-5.2 gm/dL Tram l [facility]: 830 [facility] Low Albumin/globulin Ratio 1.1 1.2-2. 2 [facility]: 830 [facility] 06/16/2020 BMP, Serum or Plasma Normal Glucose, Fastin g 97 mg/dL 70-100 mg/dL [facility]: 83 0 [facility] Normal Blood Urea Nitrogen 11 mg/dL 7-18 mg /dL [facility]: 0 [facility] Normal Creatinine for GFR 0.88 mg/dL 0.55-1 .30 mg/dL [facility]: 0 [facility] Normal Glomerular Filtration Rate > 60.0 >[address] [facility]: 0 [facility] Normal Sodium Level 140 mEq/L 136-145 mEq/L [facility]: 0 [facility] Normal Potassium Serum 3.7 mEq/L 3.5-5.1 mE q/L [facility]: 830 [facility] Normal Chloride Level 106 mEq/L 98-107 mEq/ L [facility]: 0 [facility] Normal Carbon Dioxide Level 30 mEq/L 21-32 mEq/L [facility]: 0 [facility] Low Anion Gap 4 mEq/L 8-16 mEq/L [facility]: 0 [facility] Normal Calcium Level 8.9 mg/dL 8.5-10.1 mg/ dL [facility]: 830 [facility] 06/16/2020 Amylase, Serum or Plasma Normal Amylase 28 U/L 25-115 U/L [facility]: [address] [place] [address] 06/16/2020 Lipase, Serum or Plasma Normal Lipase 96 U/L 7 3-393 U/L [facility]: [address] [place] [address] 06/02/2020 PT/INR Normal Prothrombin Time 12.3 secon ds 12.5-14.[address] [facility]: [address] [place] [address] [facility]: [address] [place] [address] 06/02/2020 Partial Thromboplastin Time Normal Partial Thromboplastin Time 26.8 seconds 24.2-38.5 seconds [facility] nter: [address] [place] [address] 06/02/2020 Cardiovascular Assessment Panel, Serum Normal CPK Creatine Phosphokinase 113 U/L 26-192 U/L [facility]: [address] [place] [address] Normal CK-mb Value Mass < 1.0 NG/mL <3.6 NG /mL [facility]: [address] [place] [address] Normal mb/CK Relative Index 0.88 < or =4 [facility]: [address] [place] [address] 06/02/2020 BMP, Serum or Plasma High Glucose, Fastin g 115 mg/dL 70-100 mg/dL [facility]: [address] [place] [address] Normal Blood Urea Nitrogen 10 mg/dL 7-18 mg /dL [facility]: [address] [place] [address] Normal Creatinine for GFR 1.12 mg/dL 0.55-1 .30 mg/dL [facility]: [address] [place] [address] Normal Glomerular Filtration Rate 53.[address] >[address] [facility]: [address] [place] [address] Normal Sodium Level 145 mEq/L 136-145 mEq/L [facility]: [address] [place] [address] Normal Potassium Serum 4.2 mEq/L 3.5-5.1 mE q/L [facility]: [address] [place] [address] High Chloride Level 109 mEq/L 98-107 mEq/ L [facility]: [address] [place] [address] High Carbon Dioxide Level 33 mEq/L 21-32 mEq/L [facility]: [address] [place] [address] Low Anion Gap 3 mEq/L 8-16 mEq/L [facility]: [address] [place] [address] Normal Calcium Level 9.3 mg/dL 8.5-10.1 mg/ dL [facility]: [address] [place] [address] 06/02/2020 Troponin I, Blood Normal Troponin I < 0.02 NG/mL < 0.10 NG/mL [facility]: [address] [place] [address] 06/02/2020 TSH, Serum or Plasma Normal Thyroid Stimulating Hormone 2.580 uIU/mL 0.358-3.740 uIU/mL [facility] nter: [address] [place] [address] 06/02/2020 CBC W/ Auto Diff Normal White Blood Count 6.1 10 4.0-10.[address] [facility]: [address] [place] [address] Normal Red Blood Count 4.92 10 4.00-5.[address] [facility]: [address] [place] [address] Normal Hemoglobin 15.0 g/dL 12.0-15.5 g/dL [facility]: [address] [place] [address] Normal Hematocrit 45.6 % 36.0-47.0 % [facility]: [address] [place] [address] Normal Mean Corpuscular Volume 92.7 fL 80.0 -96.[address] [facility]: [address] [place] [address] Normal Mean Corpuscular Hemoglobin 30.5 pg 27.0-33.[address] [facility]: [address] [place] [address] Normal Mean Corpuscular HGB Conc 32.9 g/dL 32.0-36.5 g/dL [facility]: [address] [place] [address] Normal Red Cell Distribution Width 12.9 % 1 1.5-14.5 % [facility]: [address] [place] [address] Normal Platelet Count, Automated 208 10 150 -[address] [facility]: 830 [facility] Normal Neutrophils % 57.3 % 36.0-66.0 % [facility]: 830 [facility] Normal Lymph % 34.0 % 24.0-44.0 % Final [facility]: 830 [facility] Normal Bertie % 7.2 % 2.0-8.0 % Final [facility]: 830 [facility] Normal Eos % 1.0 % 0.0-3.0 % Final [facility]: 830 [facility] Normal Baso % 0.2 % 0.0-1.0 % Final [facility]: 830 [facility] Normal Immature Granulocyte % 0.3 % 0-3.0 % [facility]: 830 [facility] Normal Nucleated Red Blood Cell % 0.0 % 0- 0 % Final [facility]: 830 [facility] Normal Neutrophils # 3.5 10 1.5-8.5 10 [facility]: 830 [facility] Normal Lymph # 2.1 10 1.5-5.0 10 Final [facility]: 830 [facility] Normal Bertie # 0.4 10 0.0-0.8 10 [facility]: 830 [facility] Normal Eos # 0.1 10 0.0-0.5 10 Final [facility]: 830 [facility] Normal Baso # 0.0 10 0.0-0.2 10 Final [facility]: 830 [facility] 05/03/2020 Hemoglobin a1C, Fingerstick Normal Hba1C 5.2 % Final [facility]: 238 [facility] 05/03/2020 Urinalysis, Dipstick, Auto Normal Bilirubin ne g Final [facility]: 238 [facility] Normal Blood neg Final [facility]: 238 [facility] Normal Glucose neg Final [facility]: 238 [facility] Normal Ketone neg Final [facility]: 238 [facility] Normal Leukocytes neg Final [facility]: 238 [facility] Normal Nitrite neg Final [facility]: 238 [facility] Normal Ph 6.0 Final [facility]: 238 [facility] Normal Protein neg Final Main [facility]: 238 [facility] Normal Specific [place] 1.030 Final [facility]: 238 [facility] Normal Urobilinogen 0.2 Final [facility] [place] [facility]: 238 [facility] 01/30/2020 CBC W/ Auto Diff Normal White Blood Count 5.3 10 4.0-10.[address] [facility]: [address] [place] [address] Normal Red Blood Count 4.24 10 4.00-5.[address] [facility]: 0 [facility] Normal Hemoglobin 12.6 g/dL 12.0-15.5 g/dL [facility]: 0 [facility] Normal Hematocrit 39.5 % 36.0-47.0 % [facility]: [address] [place] [address] Normal Mean Corpuscular Volume 93.2 fL 80.0 -96.[address] [facility]: [address] [place] [address] Normal Mean Corpuscular Hemoglobin 29.7 pg 27.0-33.[address] [facility]: [address] [place] [address] Low Mean Corpuscular HGB Conc 31.9 g/dL 32.0-36.5 g/dL [facility]: 0 [facility] Normal Red Cell Distribution Width 13.2 % 1 1.5-14.5 % [facility]: [address] [place] [address] Low Platelet Count, Automated 127 10 150 -[address] [facility]: 0 [facility] Normal Neutrophils % 51.8 % 36.0-66.0 % Fin [facility]: 830 [facility] Normal Lymph % 39.0 % 24.0-44.0 % [facility]: 830 [facility] High Bertie % 7.1 % 0.0-5.0 % [facility]: 830 [facility] Normal Eos % 1.3 % 0.0-3.0 % [facility]: 830 [facility] Normal Baso % 0.4 % 0.0-1.0 % [facility]: 830 [facility] Normal Immature Granulocyte % 0.4 % 0-3.0 % [facility]: 830 [facility] Normal Nucleated Red Blood Cell % 0.0 % 0- 0 % [facility]: 830 [facility] Normal Neutrophils # 2.8 10 1.5-8.5 10 [facility] 830 [facility] Normal Lymph # 2.1 10 1.5-5.0 10 [facility]: 0 [facility] Normal Bertie # 0.4 10 0.0-0.8 10 [facility]: 830 [facility] Normal Eos # 0.1 10 0.0-0.5 10 [facility]: 830 [facility] Normal Baso # 0.0 10 0.0-0.2 10 [facility]: 830 [facility] 01/30/2020 BMP, Serum or Plasma Normal Glucose, Fastin g 98 mg/dL 70-100 mg/dL [facility]: 83 0 [facility] Normal Blood Urea Nitrogen 13 mg/dL 7-18 mg /dL [facility]: 830 [facility] Normal Creatinine for GFR 1.22 mg/dL 0.55-1 .30 mg/dL [facility]: 0 [facility] Low Glomerular Filtration Rate 48.9 >[address] [facility]: 830 [facility] Normal Sodium Level 144 mEq/L 136-145 mEq/L [facility]: 0 [facility] Normal Potassium Serum 3.8 mEq/L 3.5-5.1 mE q/L [facility]: [address] [place] [address] High Chloride Level 108 mEq/L 98-107 mEq/ L [facility]: [address] [place] [address] Normal Carbon Dioxide Level 30 mEq/L 21-32 mEq/L [facility]: [address] [place] [address] Low Anion Gap 6 mEq/L 8-16 mEq/L [facility]: [address] [place] [address] Normal Calcium Level 8.6 mg/dL 8.5-10.1 mg/ dL [facility]: [address] [place] [address] 01/30/2020 CK (Creatine Kinase) Mb, Quantitative, Blood No rmal CPK Creatine Phosphokinase 75 U/L 26-192 U/L [facility]: [address] [place] [address] 01/30/2020 Pro BNP (Pro B-type Natriuretic Peptide), Serum or Plasma High Nt-pro BNP 278 pg/mL <125 pg/mL [facility]: [address] [place] [address] 01/18/2020 Istat Chem8+ Panel Normal Istat HCT 38.0 % 38. 0-51.0 % [facility]: [address] [place] [address] Normal Istat Glucose 83 mg/dL 70-105 mg/dL [facility]: [address] [place] [address] Normal Istat Sodium 140 mEq/L 136-145 mEq/L [facility]: [address] [place] [address] Normal Istat Potassium 4.2 mEq/L 3.5-5.1 mE q/L [facility]: [address] [place] [address] Normal Istat Ca++ 4.8 mg/dL 4.5-5.3 mg/dL [facility]: 0 [facility] Normal Istat Chloride 104 mEq/L 98-109 mEq/ L [facility]: [address] [place] [address] High Istat CO2 30.0 mm/L 23.0-27.0 mm/L [facility]: 0 [facility] Normal Istat BUN 14 mg/dL 8-26 mg/dL Final [facility]: 830 [facility] Normal Istat Creatinine 1.1 mg/dL 0.6-1.3 m g/dL Final [facility]: 830 [facility] Past Encounters 11/05/2020 Overflow Incontinence of Urine; Gastritis; Gastroesophageal Reflux Disease without Esophagitis; Nausea Makayla Nam [facility]: [address] [place] [phone], Ph. 10/26/2020 Covid-19; Dyspnea Makaylara Nam [facility]: [address] [place] [phone], Ph. 08/23/2020 Dysuria; Body Mass Index 40+ - Severely Obese Macy Robles PA-C: [address] [place] [phone], Ph. 06/14/2020 SARS-CoV-2 Vaccination Arnaud Romero MD: [address] [place] [phone], Ph. 06/04/2020 Chronic Atrial Fibrillation; Nausea Macy Robles PA-C: [address] [place] [phone], Ph. 05/20/2020 SARS-CoV-2 Vaccination Arnaud Romero MD: [address] [place] [phone], Ph. 05/03/2020 Excessive Thirst; Administration of Influenza Vaccine; Administration of Pneumococcal Vaccine; Large Liver; Chronic Obstructive Lung Disease; Renal Function Tests Abnormal; Screening for Malignant Neoplasm of Breast; Solitary Nodule of Lung; Screening for Malignant Neoplasm of Colon; Gastroesophageal Reflux Disease; Chronic Atrial Fibrillation Macy Robles PA-C: [address] [place] [phone], Ph. 01/22/2020 Constipation; Chronic Atrial Fibrillation; Gastroesophageal Reflux Disease without Esophagitis Macy Robles PA-C: [address] [place] [phone], Ph. Social History Tobacco Smoking Status Former Smoker (1/4 pack per day) Vaccine List Vaccine Type COVID-19, mRNA, LNP-S, PF, 100 mcg/0.5 m L dose .5 mL .5 mL Influenza, injectable, MDCK, preservativ e free, quadrivalent 03/26/20180.5 mL influenza, injectable, quadrivalent, pre servative free [...] Surgeries None recorded. Imaging None recorded. Vitals 11/05/2020 03:40PM TELEHEALTH 20 Height 62 in 10/26/2020 09:00AM TELEHEALTH 20 Height 62 in 08/23/2020 02:00PM ESTABLISHED [id number] Height Weight BMI Blood Pressure 62 in 270 lbs 49.4 kg/m2 121/83 mm[Hg] 06/04/2020 09:00AM ED FOLLOW-UP Height Weight BMI Blood Pressure 62 in 271 lbs 6 oz 49.6 kg/m2 138/84 mm[Hg] 05/03/2020 09:20AM PROVIDER REQUESTED Height Weight BMI Blood Pressure 62 in 270 lbs 49.4 kg/m2 (1) 141/84 mm[H g] (2) 111/66 mm[Hg] 01/22/2020 08:00AM ESTABLISHED [id number] Height Weight BMI Blood Pressure 62 in [...]
--- OUTSIDE RECORDS SUMMARY | 2021-01-24 06:47 | CCD ---
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 Role Phone Macy Robles Unavailable Unavailable Allergies Code Code System Name Reaction Severity Status Onset 606375 RxNorm Bactrim Active 08/30/2017 2670 RxNorm Codeine Active 08/30/2017 Cyclobenzaprine Active 08/11 563512 RxNorm Cymbalta Active 08/30/2017 3355 RxNorm Diclofenac Active 8 941144 RxNorm Lyrica Active 08/30/2017 60073 RxNorm Metaxalone Deactivated 018 Shellfish Containing Products Deactivated 08/30/2017 Gabapentin Active 9 Sorbitan Esters Facial Swelling Moderate to Severe [...] available benztropine 1 mg tablet Completed 01/22/20 20 buprenorphine 10 mcg/hour weekly transde rmal patch [...] ONE TABLET BY MOUTH EVERY 48 HOURS Active Not available gabapentin 300 mg capsule TAKE TWO CAPSULES BY MOUTH TWICE DAILY Completed 01/22/2020 hydrocodone 5 mg-acetaminophen 325 mg ta blet TAKE ONE TABLET BY MOUTH ONCE DAILY MAX DAILY DOSE ONE TABLET Completed 10/26/2020 Latuda 20 mg tablet TAKE ONE TABLET BY MOUTH EVERY EVENING Active Not available Latuda 40 mg tablet TAKE ONE TABLET [...] monohydrate/macrocrystals 100 mg capsule Complete d 05/03/2020 [facility] 100,000 unit/gram topical powder apply topically TO affected area(s) TWICE DAILY DIRECTED Completed 01/22/2020 omeprazole 40 mg capsule,delayed release TAKE ONE CAPSULE BY MOUTH ONCE DAILY please make appt with provider Active Not available ondansetron 4 mg disintegrating tablet DISSOLVE ONE TABLET BY MOUTH EVERY 8 HOURS NEEDED FOR NAUSEA AND VOMITING FOR UP TO SEVEN DAYS Completed 10/26/2020 oxycodone-acetaminophen 5 mg-325 mg tablet Completed 01/22/2020 [...] APPLY TO THE AFFECTED AREA(S) TWICE DAILY Active Not available tramadol 50 mg tablet TAKE ONE TABLET [...] Histor y Clinical Finding Unknown 07/22/2019 History [place] Lesion of Lung Active 12/19/2019 History Large Liver Active 05/03/2020 Covid-19 Active 10/26/2020 Procedures Date Name Performed by Cholecystectomy Information not avai lable Hysterectomy Information not avai lable 05/03/2020 US, Liver [facility] nter Radiology [address] [place] [address] (Work Place) 05/03/2020 MAMMO, Screening, Digital, Bilateral [facility] [address] [place] [address] (Work Place) 05/03/2020 CT, Chest, W/o Contrast [facility] Radiology [address] [place], [place] [id number] (Work Place) Notes: 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, left shou lder Results Lab Results Date Name Specimen Result Interpretation Description Value Range Status Address 08/23/2020 Urinalysis, Complete Color tnp Final [facility]: [address] [facility] 08/23/2020 Patient Id Approval Tiq Documentation Co mment Final [facility]: 8[address] [facility] Contact macy Lindo [facility]: 5 [facility] Tests Affected all [facility]: [facility] 08/23/2020 Culture, Urine Culture, Urine, Routine see note [facility]: 5 [facility] 07/21/2020 D-dimer, Quant, Plasma High D-dimer Quant 706.82 NG/mL <500 NG/mL [facility]: 83 0 [facility] 07/21/2020 Cardiovascular Assessment Panel, Serum Normal CPK Creatine Phosphokinase 138 U/L 26-192 U/L [facility]: 8[address] [facility] Normal CK-mb Value Mass < 1.0 NG/mL <3.6 NG /mL [facility]: 830 [facility] Normal mb/CK Relative Index 0.72 < or =4 [facility]: 830 [facility] Normal Troponin I < 0.02 NG/mL < 0.10 NG/mL [facility]: 8[address] [facility] 07/21/2020 Hepatic Function Panel, Serum High AST/SG OT 53 U/L 7-37 U/L [facility]: 8[address] [facility] Normal ALT/SGPT 53 U/L 12-78 U/L [facility]: 8[address] [facility] Normal Alkaline Phosphatase 99 U/L 45-117 U /L [facility]: 8[address] [facility] Normal Bilirubin,total 0.6 mg/dL 0.2-1.0 mg /dL [facility]: 0 [facility] Normal Bilirubin,direct 0.1 mg/dL 0.0-0.2 m g/dL [facility]: 0 [facility] Low Total Protein 6.1 gm/dL 6.4-8.2 gm/d L [facility]: 0 [facility] Normal Albumin 3.2 gm/dL 3.2-5.2 gm/dL Tram l [facility]: [address] [place] [address] Low Albumin/globulin Ratio 1.1 1.2-2. 2 [facility]: 830 [facility] 07/21/2020 BMP, Serum or Plasma Normal Glucose, Fastin g 88 mg/dL 70-100 mg/dL [facility]: 83 0 [facility] Normal Blood Urea Nitrogen 7 mg/dL 7-18 mg/ dL [facility]: 0 [facility] Normal Creatinine for GFR 0.77 mg/dL 0.55-1 .30 mg/dL [facility]: 0 [facility] Normal Glomerular Filtration Rate > 60.0 >5 1 [facility]: 8[address] [facility] Normal Sodium Level 141 mEq/L 136-145 mEq/L [facility]: 0 [facility] Normal Potassium Serum 4.1 mEq/L 3.5-5.1 mE q/L [facility]: 830 [facility] High Chloride Level 109 mEq/L 98-107 mEq/ L [facility]: 0 [facility] Normal Carbon Dioxide Level 28 mEq/L 21-32 mEq/L [facility]: 0 [facility] Low Anion Gap 4 mEq/L 8-16 mEq/L [facility]: [address] [place] [address] Normal Calcium Level 9.2 mg/dL 8.5-10.1 mg/ dL [facility]: [address] [place] [address] 07/21/2020 Pro BNP (Pro B-type Natriuretic Peptide), Serum or Plasma High Nt-pro BNP 224 pg/mL <125 pg/mL [facility]: [address] [place] [address] 07/21/2020 Urinalysis, Dipstick Normal Appearance, Urine hazy clear [facility]: 0 [facility] Normal Color, Urine straw yellow [facility]: 0 [facility] Normal pH,urine 6.0 units 5.0-9.0 units [facility]: [address] [place] [address] Low Specific [place] Urine Auto 1.001 1 .002-1.035 [facility]: [address] [place] [address] Normal Protein, Urine Auto negative mg/dL n egative mg/dL [facility]: 0 [facility] Normal Glucose, Urine (UA) Auto negative mg /dL negative mg/dL [facility]: 0 [facility] Normal Ketone, Urine Auto negative mg/dL ne gative mg/dL [facility]: 0 [facility] Normal Urobilinogen, Urine Auto 0.2 mg/dL 0 .0-2.0 mg/dL [facility]: 0 [facility] Normal Bilirubin, Urine Auto negative negat lonny [facility]: 0 [facility] Normal Nitrite, Urine Auto negative negativ e [facility]: 0 [facility] High Leukocyte Esterase, Urine Auto 2+ negative [facility]: 830 [facility] Normal Blood, Urine Blood negative negative [facility]: 830 [facility] High WBC, Urine Auto 4 /hpf 0-3 /hpf [facility]: 8[address] [facility] Normal RBC, Urine Auto 1 /hpf 0-3 /hpf [facility]: 830 [facility] High Bacteria, Urine Auto 1+ negative [facility]: 830 [facility] Normal Squamous Epithelial Cell Ur AU 2 /hp f 0-6 /hpf [facility]: 830 [facility] Normal Hyaline Cast, Urine Auto 0 /lpf 0-1 /lpf [facility]: 830 [facility] 07/21/2020 CBC W/ Auto Diff Low White Blood Count 3.6 10 4.0-10.0 10 [facility]: 0 [facility] Normal Red Blood Count 4.52 10 4.00-5.40 10 [facility]: 830 [facility] Normal Hemoglobin 13.7 g/dL 12.0-15.5 g/dL [facility]: 0 [facility] Normal Hematocrit 41.2 % 36.0-47.0 % [facility]: 0 [facility] Normal Mean Corpuscular Volume 91.2 fL 80.0 -96.0 fL [facility]: 0 [facility] Normal Mean Corpuscular Hemoglobin 30.3 pg 27.0-33.0 pg [facility]: 830 [facility] Normal Mean Corpuscular HGB Conc 33.3 g/dL 32.0-36.5 g/dL [facility]: 0 [facility] Normal Red Cell Distribution Width 12.9 % 1 1.5-14.5 % [facility]: 0 [facility] Normal Platelet Count, Automated 166 10 150 -450 10 [facility]: 830 [facility] Normal Neutrophils % 49.9 % 36.0-66.0 % [facility]: 830 [facility] Normal Lymph % 37.0 % 24.0-44.0 % [facility]: 830 [facility] High Evans % 10.3 % 2.0-8.0 % [facility]: 830 [facility] Normal Eos % 1.9 % 0.0-3.0 % [facility]: 830 [facility] Normal Baso % 0.6 % 0.0-1.0 % [facility]: 830 [facility] Normal Immature Granulocyte % 0.3 % 0-3.0 % [facility]: 830 [facility] Normal Nucleated Red Blood Cell % 0.0 % 0- 0 % [facility]: 830 [facility] Normal Neutrophils # 1.8 10 1.5-8.5 10 [facility]: 830 [facility] Low Lymph # 1.3 10 1.5-5.0 10 [facility]: 8[address] [facility] Normal Evans # 0.4 10 0.0-0.8 10 [facility]: 830 [facility] Normal Eos # 0.1 10 0.0-0.5 10 [facility]: 830 [facility] Normal Baso # 0.0 10 0.0-0.2 10 [facility]: 830 [facility] 06/16/2020 UA W/ Reflex to Culture Normal Appearance, Urine Rfx clear clear [facility]: 83 0 [facility] Normal Color, Urine Rfx yellow yellow [facility]: 830 [facility] Normal pH,urine Rfx 5.0 units 5.0-9.0 units [facility]: 830 [facility] Normal Specific [place] Ur Auto Rfx 1.011 1.002-1.035 [facility]: 830 [facility] Normal Protein, Urine Auto Rfx negative mg/ dL negative mg/dL [facility]: 830 [facility] Normal Glucose, Urine (UA) Auto Rfx n egative mg/dL negative mg/dL [facility]: 830 [facility] High Ketone, Urine Auto Rfx 1+ mg/dL nega tive mg/dL [facility]: 830 [facility] High Urobilinogen, Urine Auto Rfx 2.0 mg/ dL 0.0-2.0 mg/dL [facility]: 830 [facility] Normal Bilirubin, Urine Auto Rfx negative n egative [facility]: 830 [facility] Normal Nitrite, Urine Auto Rfx negative neg ative [facility]: 830 [facility] Normal Leukocyte Esterase Ur Auto Rfx negat lonny negative [facility]: 830 [facility] Normal Blood, Urine Blood Rfx negative nega tive [facility]: 830 [facility] Normal WBC, Urine Auto Rfx 1 /hpf 0-3 /hpf [facility]: 830 [facility] Normal RBC, Urine Auto Rfx 1 /hpf 0-3 /hpf [facility]: 830 [facility] High Bacteria, Urine Auto Rfx 1+ nega tive [facility]: 830 [facility] Normal Squam Epithelial Cell Ur Aurfx 1 /hp f 0-6 /hpf [facility]: 830 [facility] Normal Mucus, Urine Rfx small negative [facility]: 830 [facility] Normal Hyaline Cast, Urine Auto Rfx 0 /lpf 0-1 /lpf [facility]: 830 [facility] 06/16/2020 CBC W/ Auto Diff Low White Blood Count 3.9 10 4.0-10.0 10 [facility]: 830 [facility] Normal Red Blood Count 4.75 10 4.00-5.40 10 [facility]: 830 [facility] Normal Hemoglobin 14.3 g/dL 12.0-15.5 g/dL [facility]: 830 [facility] Normal Hematocrit 44.0 % 36.0-47.0 % [facility]: 830 [facility] Normal Mean Corpuscular Volume 92.6 fL 80.0 -96.0 fL [facility]: [address] [place] [address] Normal Mean Corpuscular Hemoglobin 30.1 pg 27.0-33.0 pg [facility]: [address] [place] [address] Normal Mean Corpuscular HGB Conc 32.5 g/dL 32.0-36.5 g/dL [facility]: [address] [place] [address] Normal Red Cell Distribution Width 12.6 % 1 1.5-14.5 % [facility]: 0 [facility] Normal Platelet Count, Automated 157 10 150 -450 10 [facility]: 830 [facility] Normal Neutrophils % 65.7 % 36.0-66.0 % [facility]: 830 [facility] Low Lymph % 19.1 % 24.0-44.0 % [facility]: 8[address] [facility] High Evans % 11.6 % 2.0-8.0 % [facility]: 830 [facility] Normal Eos % 2.3 % 0.0-3.0 % [facility]: 8[address] [facility] Normal Baso % 0.8 % 0.0-1.0 % [facility]: 0 [facility] Normal Immature Granulocyte % 0.5 % 0-3.0 % [facility]: 0 [facility] Normal Nucleated Red Blood Cell % 0.0 % 0- 0 % [facility]: 830 [facility] Normal Neutrophils # 2.6 10 1.5-8.5 10 [facility]: 8[address] [facility] Low Lymph # 0.7 10 1.5-5.0 10 [facility]: 8[address] [facility] Normal Evans # 0.5 10 0.0-0.8 10 [facility]: 0 [facility] Normal Eos # 0.1 10 0.0-0.5 10 [facility]: 830 [facility] Normal Baso # 0.0 10 0.0-0.2 10 [facility]: 830 [facility] 06/16/2020 Lactic Acid, Serum or Plasma Normal Lactic Acid Sepsis Protocol 1.0 mmol/L 0.4-2.0 mmol/L [facility]: [address] [place] [address] 06/16/2020 Cardiovascular Assessment Panel, Serum Normal CPK Creatine Phosphokinase 59 U/L 26-192 U/L [facility]: [address] [place] [address] Normal CK-mb Value Mass < 1.0 NG/mL <3.6 NG /mL [facility]: [address] [place] [address] Normal mb/CK Relative Index 1.69 < or =4 [facility]: [address] [place] [address] Normal Troponin I < 0.02 NG/mL < 0.10 NG/mL [facility]: [address] [place] [address] 06/16/2020 Hepatic Function Panel, Serum Normal AST/SG OT 31 U/L 7-37 U/L [facility]: 0 [facility] Normal ALT/SGPT 32 U/L 12-78 U/L [facility]: [address] [place] [address] Normal Alkaline Phosphatase 99 U/L 45-117 U /L [facility]: [address] [place] [address] Normal Bilirubin,total 0.4 mg/dL 0.2-1.0 mg /dL [facility]: [address] [place] [address] Normal Bilirubin,direct 0.1 mg/dL 0.0-0.2 m g/dL [facility]: 830 [facility] Low Total Protein 6.2 gm/dL 6.4-8.2 gm/d L [facility]: 8[address] [facility] Normal Albumin 3.2 gm/dL 3.2-5.2 gm/dL Tram l [facility]: 0 [facility] Low Albumin/globulin Ratio 1.1 1.2-2. 2 [facility]: 0 [facility] 06/16/2020 BMP, Serum or Plasma Normal Glucose, Fastin g 97 mg/dL 70-100 mg/dL [facility]: 83 0 [facility] Normal Blood Urea Nitrogen 11 mg/dL 7-18 mg /dL [facility]: [address] [place] [address] Normal Creatinine for GFR 0.88 mg/dL 0.55-1 .30 mg/dL [facility]: [address] [place] [address] Normal Glomerular Filtration Rate > 60.0 >5 1 [facility]: 0 [facility] Normal Sodium Level 140 mEq/L 136-145 mEq/L [facility]: [address] [place] [address] Normal Potassium Serum 3.7 mEq/L 3.5-5.1 mE q/L [facility]: 0 [facility] Normal Chloride Level 106 mEq/L 98-107 mEq/ L [facility]: 0 [facility] Normal Carbon Dioxide Level 30 mEq/L 21-32 mEq/L [facility]: 0 [facility] Low Anion Gap 4 mEq/L 8-16 mEq/L [facility]: 0 [facility] Normal Calcium Level 8.9 mg/dL 8.5-10.1 mg/ dL [facility]: 0 [facility] 06/16/2020 Amylase, Serum or Plasma Normal Amylase 28 U/L 25-115 U/L [facility]: 0 [facility] 06/16/2020 Lipase, Serum or Plasma Normal Lipase 96 U/L 7 3-393 U/L [facility]: 0 [facility] 06/02/2020 PT/INR Normal Prothrombin Time 12.3 secon ds 12.5-14.3 seconds [facility]: 0 [facility] Normal Inr 0.89 [facility]: [address] [place] [address] 06/02/2020 Partial Thromboplastin Time Normal Partial Thromboplastin Time 26.8 seconds 24.2-38.[address] [facility] nter: [address] [place] [address] 06/02/2020 Cardiovascular Assessment Panel, Serum Normal CPK Creatine Phosphokinase 113 U/L 26-192 U/L [facility]: [address] [place] [address] Normal CK-mb Value Mass < 1.0 NG/mL <3.6 NG /mL [facility]: [address] [place] [address] Normal mb/CK Relative Index 0.88 < or =4 [facility]: [address] [place] [address] 06/02/2020 BMP, Serum or Plasma High Glucose, Fastin g 115 mg/dL 70-100 mg/dL [facility]: 83 0 [facility] Normal Blood Urea Nitrogen 10 mg/dL 7-18 mg /dL [facility]: [address] [place] [address] Normal Creatinine for GFR 1.12 mg/dL 0.55-1 .30 mg/dL [facility]: [address] [place] [address] Normal Glomerular Filtration Rate 53.8 >5 1 [facility]: 0 [facility] Normal Sodium Level 145 mEq/L 136-145 mEq/L [facility]: [address] [place] [address] Normal Potassium Serum 4.2 mEq/L 3.5-5.1 mE q/L [facility]: [address] [place] [address] High Chloride Level 109 mEq/L 98-107 mEq/ L [facility]: [address] [place] [address] High Carbon Dioxide Level 33 mEq/L 21-32 mEq/L [facility]: [address] [place] [address] Low Anion Gap 3 mEq/L 8-16 mEq/L [facility]: [address] [place] [address] Normal Calcium Level 9.3 mg/dL 8.5-10.1 mg/ dL [facility]: [address] [place] [address] 06/02/2020 Troponin I, Blood Normal Troponin I < 0.02 NG/mL < 0.10 NG/mL [facility]: [address] [place] [address] 06/02/2020 TSH, Serum or Plasma Normal Thyroid Stimulating Hormone 2.580 uIU/mL 0.358-3.740 uIU/mL [facility] nter: [address] [place] [address] 06/02/2020 CBC W/ Auto Diff Normal White Blood Count 6.1 10 4.0-10.0 10 [facility]: [address] [place] [address] Normal Red Blood Count 4.92 10 4.00-5.40 10 [facility]: [address] [place] [address] Normal Hemoglobin 15.0 g/dL 12.0-15.5 g/dL [facility]: [address] [place] [address] Normal Hematocrit 45.6 % 36.0-47.0 % [facility]: [address] [place] [address] Normal Mean Corpuscular Volume 92.7 fL 80.0 -96.0 fL [facility]: [address] [place] [address] Normal Mean Corpuscular Hemoglobin 30.5 pg 27.0-33.0 pg [facility]: [address] [place] [address] Normal Mean Corpuscular HGB Conc 32.9 g/dL 32.0-36.5 g/dL [facility]: [address] [place] [address] Normal Red Cell Distribution Width 12.9 % 1 1.5-14.5 % [facility]: [address] [place] [address] Normal Platelet Count, Automated 208 10 150 -450 10 [facility]: [address] [place] [address] Normal Neutrophils % 57.3 % 36.0-66.0 % [facility]: [address] [place] [address] Normal Lymph % 34.0 % 24.0-44.0 % Final [facility]: 8[address] [facility] Normal Evans % 7.2 % 2.0-8.0 % Final [facility]: 8[address] [facility] Normal Eos % 1.0 % 0.0-3.0 % Final [facility]: 8[address] [facility] Normal Baso % 0.2 % 0.0-1.0 % Final [facility]: 830 [facility] Normal Immature Granulocyte % 0.3 % 0-3.0 % Final [facility]: 8[address] [facility] Normal Nucleated Red Blood Cell % 0.0 % 0- 0 % Final [facility]: 8[address] [facility] Normal Neutrophils # 3.5 10 1.5-8.5 10 [facility]: 8[address] [facility] Normal Lymph # 2.1 10 1.5-5.0 10 [facility]: 8[address] [facility] Normal Evans # 0.4 10 0.0-0.8 10 [facility]: 8[address] [facility] Normal Eos # 0.1 10 0.0-0.5 10 [facility]: 8[address] [facility] Normal Baso # 0.0 10 0.0-0.2 10 [facility]: 830 [facility] 05/03/2020 Hemoglobin a1C, Fingerstick Normal Hba1C 5.2 % Final [facility]: 238 [facility] 05/03/2020 Urinalysis, Dipstick, Auto Normal Bilirubin ne g Final [facility]: 238 [facility] Normal Blood neg Final [facility]: 238 [facility] Normal Glucose neg Final [facility]: 238 [facility] Normal Ketone neg Final Main [facility]: [facility] Normal Leukocytes neg Final [facility]: [facility] Normal Nitrite neg Final [facility]: [facility] Normal Ph 6.0 Final [facility]: 238 [facility] Normal Protein neg Final [facility]: 238 [facility] Normal Specific [place] 1.030 Final [facility]: 238 [facility] Normal Urobilinogen 0.2 Final [facility]: 238 [facility] 01/30/2020 CBC W/ Auto Diff Normal White Blood Count 5.3 10 4.0-10.0 10 Final [facility]: 830 [facility] Normal Red Blood Count 4.24 10 4.00-5.40 10 [facility]: 830 [facility] Normal Hemoglobin 12.6 g/dL 12.0-15.5 g/dL [facility]: [address] [place] [address] Normal Hematocrit 39.5 % 36.0-47.0 % [facility]: 0 [facility] Normal Mean Corpuscular Volume 93.2 fL 80.0 -96.0 fL [facility]: [address] [place] [address] Normal Mean Corpuscular Hemoglobin 29.7 pg 27.0-33.0 pg [facility]: [address] [place] [address] Low Mean Corpuscular HGB Conc 31.9 g/dL 32.0-36.5 g/dL [facility]: 830 [facility] Normal Red Cell Distribution Width 13.2 % 1 1.5-14.5 % [facility]: 0 [facility] Low Platelet Count, Automated 127 10 150 -450 10 [facility]: 830 [facility] Normal Neutrophils % 51.8 % 36.0-66.0 % [facility] [facility]: [address] [facility] Normal Lymph % 39.0 % 24.0-44.0 % [facility]: [address] [facility] High Evans % 7.1 % 0.0-5.0 % Final [facility]: [address] [facility] Normal Eos % 1.3 % 0.0-3.0 % [facility]: [address] [facility] Normal Baso % 0.4 % 0.0-1.0 % [facility]: [address] [facility] Normal Immature Granulocyte % 0.4 % 0-3.0 % [facility]: [address] [facility] Normal Nucleated Red Blood Cell % 0.0 % 0- 0 % [facility]: [address] [facility] Normal Neutrophils # 2.8 10 1.5-8.5 10 [facility]: [address] [facility] Normal Lymph # 2.1 10 1.5-5.0 10 [facility]: [address] [facility] Normal Evans # 0.4 10 0.0-0.8 10 [facility]: [address] [facility] Normal Eos # 0.1 10 0.0-0.5 10 [facility]: [address] [facility] Normal Baso # 0.0 10 0.0-0.2 10 [facility]: [address] [facility] 01/30/2020 BMP, Serum or Plasma Normal Glucose, Fastin g 98 mg/dL 70-100 mg/dL [facility]: 83 0 [facility] Normal Blood Urea Nitrogen 13 mg/dL 7-18 mg /dL [facility]: 0 [facility] Normal Creatinine for GFR 1.22 mg/dL 0.55-1 .30 mg/dL [facility]: [address] [facility] Low Glomerular Filtration Rate 48.9 >5 1 [facility]: [address] [facility] Normal Sodium Level 144 mEq/L 136-145 mEq/L [facility]: 0 [facility] Normal Potassium Serum 3.8 mEq/L 3.5-5.1 mE q/L [facility]: 0 [facility] High Chloride Level 108 mEq/L 98-107 mEq/ L [facility]: [address] [facility] Normal Carbon Dioxide Level 30 mEq/L 21-32 mEq/L [facility]: [address] [place] [address] Low Anion Gap 6 mEq/L 8-16 mEq/L [facility]: [address] [place] [address] Normal Calcium Level 8.6 mg/dL 8.5-10.1 mg/ dL [facility]: [address] [place] [address] 01/30/2020 CK (Creatine Kinase) Mb, Quantitative, Blood No rmal CPK Creatine Phosphokinase 75 U/L 26-192 U/L [facility]: [address] [place] [address] 01/30/2020 Pro BNP (Pro B-type Natriuretic Peptide), Serum or Plasma High Nt-pro BNP 278 pg/mL <125 pg/mL Final [facility]: [address] [place] [address] 01/18/2020 Istat Chem8+ Panel Normal Istat HCT 38.0 % 38. 0-51.0 % [facility]: [address] [place] [address] Normal Istat Glucose 83 mg/dL 70-105 mg/dL [facility]: [address] [place] [address] Normal Istat Sodium 140 mEq/L 136-145 mEq/L [facility]: [address] [place] [address] Normal Istat Potassium 4.2 mEq/L 3.5-5.1 mE q/L [facility]: [address] [place] [address] Normal Istat Ca++ 4.8 mg/dL 4.5-5.3 mg/dL [facility]: [address] [facility] Normal Istat Chloride 104 mEq/L 98-109 mEq/ L [facility]: [address] [place] [address] High Istat CO2 30.0 mm/L 23.0-27.0 mm/L [facility]: 0 [facility] Normal Istat BUN 14 mg/dL 8-26 mg/dL [facility]: 0 [facility] Normal Istat Creatinine 1.1 mg/dL 0.6-1.3 m g/dL Final [facility]: [address] [facility] Past Encounters 10/26/2020 Covid-19; Dyspnea Makayla Cyril, ST[employer]FF [employer]ER-BC: [address] [place] [address], Ph. 08/23/2020 Dysuria; Body Mass Index 40+ - Severely Obese Macy Robles PA-C: [address] [place] [address], Ph. 06/14/2020 SARS-CoV-2 Vaccination Arnaud Romero MD: [address] [place] [phone], Ph. 06/04/2020 Chronic Atrial Fibrillation; Nausea Macy Robles PA-C: [address] [place] [address], Ph. 05/20/2020 SARS-CoV-2 Vaccination Arnaud Rmoero MD: [address] [place] [phone], Ph. 05/03/2020 Excessive Thirst; Administration of Influenza Vaccine; Administration of Pneumococcal Vaccine; Large Liver; Chronic Obstructive Lung Disease; Renal Function Tests Abnormal; Screening for Malignant Neoplasm of Breast; Solitary Nodule of Lung; Screening for Malignant Neoplasm of Colon; Gastroesophageal Reflux Disease; Chronic Atrial Fibrillation Macy Robles PA-C: [address] [place] [phone], Ph. 01/22/2020 Constipation; Chronic Atrial Fibrillation; Gastroesophageal Reflux Disease without Esophagitis Macy Robles PA-C: [address] [place] [address], Ph. Social History Tobacco Smoking Status Former Smoker (1/4 pack per day) Vaccine List Vaccine Type COVID-19, mRNA, LNP-S, PF, 100 mcg/0.5 m L dose 10.5 mL 10.5 mL Influenza, injectable, MDCK, preservativ e free, quadrivalent 03/26/20180.5 mL influenza, injectable, quadrivalent, pre servative free .5 mL pneumococcal polysaccharide PPV23 .5 mL Plan of Care Patient Instructions Please return to the ER for evaluation o f worsening covid 19 symptoms. I spoke with the ER charge nurse to make the aware that you are coming over. Please call for an appointment after your ER visit. Reminders Provider Appointments None recorded. Lab None recorded. Referral None recorded. Procedures None recorded. Surgeries None recorded. Imaging None recorded. Vitals 10/26/2020 09:00AM TELEHEALTH 20 Height 62 in 08/23/2020 02:00PM ESTABLISHED [id number] Height Weight BMI Blood Pressure 62 in 270 lbs 49.4 kg/m2 121/83 mm[Hg] 06/04/2020 09:00AM ED FOLLOW-UP Height Weight BMI Blood Pressure 62 in 271 lbs 6 oz 49.6 kg/m2 138/84 mm[Hg] 05/03/2020 09:20AM PROVIDER REQUESTED Height Weight BMI Blood Pressure 62 in 270 lbs 49.4 kg/m2 (1) 141/84 mm[H g] (2) 111/66 mm[Hg] 01/22/2020 08:00AM ESTABLISHED [id number] Height Weight BMI Blood Pressure 62 in [...]
--- OUTSIDE RECORDS SUMMARY | 2021-01-24 06:47 | CCD ---
Author Organization Unknown Address [address] [place] [address] Phone [phone] Care Team Providers Care Patient Relations Director Name Role Phone [facility] 2 [phone] JENELLE CASTILLO MD 2 [phone] Allergies Code Code System Name Reaction Severity Status Onset 890682 RxNorm Bactrim Active 08/30/2017 2670 RxNorm Codeine Active 08/30/2017 Cyclobenzaprine Active 08/11 626466 RxNorm Cymbalta Active 08/30/2017 3355 RxNorm Diclofenac Active 8 052810 RxNorm Lyrica Active 08/30/2017 54703 RxNorm Metaxalone Deactivated 018 Shellfish Containing Products [...] monohydrate/macrocrystals 100 mg capsule Complete d 05/03/2020 [facility] 100,000 unit/gram topical powder apply topically TO [...] Histor y Clinical Finding Unknown 07/22/2019 History [place] Lesion of Lung Active 12/19/2019 History Large Liver Active 05/03/2020 Covid-19 Active 10/26/2020 Microscopic Hematuria Active 11/24/2020 Recurrent Falls Active 11/24/2020 Procedures Date Name Performed by Cholecystectomy Information not avai lable Hysterectomy Information not avai lable 05/03/2020 US, Liver [facility] nter Radiology [address] [place] [address] (Work Place) 05/03/2020 MAMMO, Screening, Digital, Bilateral [facility] [address] [place] [address] (Work Place) 05/03/2020 CT, Chest, W/o Contrast [facility] [address], [place] [id number] (Work Place) Notes: 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, left shou lder Results Lab Results Date Name Specimen Result Interpretation Description Value Range Status Address 11/11/2020 UA W/ Reflex to Culture Normal Appearance, Urine Rfx clear clear [facility]: [address] [facility] Normal Color, Urine Rfx yellow yellow [facility]: [address] [facility] Normal pH,urine Rfx 5.0 units 5.0-9.0 units [facility]: [address] [facility] Normal Specific [place] Ur Auto Rfx 1.006 1.002-1.035 [facility]: [address] [facility] Normal Protein, Urine Auto Rfx negative mg/ dL negative mg/dL [facility]: [address] [facility] Normal Glucose, Urine (UA) Auto Rfx n egative mg/dL negative mg/dL [facility]: [address] [facility] Normal Ketone, Urine Auto Rfx negative mg/d L negative mg/dL [facility]: [address] [facility] Normal Urobilinogen, Urine Auto Rfx 0.2 mg/ dL 0.0-2.0 mg/dL [facility]: [address] [facility] Normal Bilirubin, Urine Auto Rfx negative n egative [facility]: [address] [facility] Normal Nitrite, Urine Auto Rfx negative neg ative [facility]: [address] [facility] Normal Leukocyte Esterase Ur Auto Rfx negat lonny negative [facility]: [address] [facility] High Blood, Urine Blood Rfx 1+ negati ve [facility]: [address] [facility] Normal WBC, Urine Auto Rfx 0 /hpf 0-3 /hpf [facility]: [address] [facility] Normal RBC, Urine Auto Rfx 0 /hpf 0-3 /hpf [facility]: [address] [facility] High Bacteria, Urine Auto Rfx 1+ nega tive [facility]: [address] [facility] Normal Squam Epithelial Cell Ur Aurfx 1 /hp f 0-6 /hpf [facility]: [address] [facility] Normal Mucus, Urine Rfx small negative Fin [facility]: [address] [facility] Normal Hyaline Cast, Urine Auto Rfx 0 /lpf 0-1 /lpf [facility]: [address] [facility] 08/23/2020 Urinalysis, Complete Color tnp [facility] Patient Id Approval Tiq Documentation Co mment [facility] macy Lindo [facility] [facility] Tests Affected all [facility]2020 Culture, Urine Culture, Urine, Routine see note [facility]2020 D-dimer, Quant, Plasma High D-dimer Quant 706.82 NG/mL <500 NG/mL [facility]: [address] 0 [facility] 07/21/2020 Cardiovascular Assessment Panel, Serum Normal CPK Creatine Phosphokinase 138 U/L 26-192 U/L [facility]: [address] [facility] Normal CK-mb Value Mass < 1.0 NG/mL <3.6 NG /mL [facility]: [address] [facility] Normal mb/CK Relative Index 0.72 < or =4 [facility]: 0 [facility] Normal Troponin I < 0.02 NG/mL < 0.10 NG/mL [facility]: [address] [facility] 07/21/2020 Hepatic Function Panel, Serum High AST/SG OT 53 U/L 7-37 U/L [facility]: [address] [facility] Normal ALT/SGPT 53 U/L 12-78 U/L [facility]: [address] [facility] Normal Alkaline Phosphatase 99 U/L 45-117 U /L [facility]: [address] [facility] Normal Bilirubin,total 0.6 mg/dL 0.2-1.0 mg /dL [facility]: [address] [facility] Normal Bilirubin,direct 0.1 mg/dL 0.0-0.2 m g/dL [facility]: [address] [facility] Low Total Protein 6.1 gm/dL 6.4-8.2 gm/d L [facility]: [address] [facility] Normal Albumin 3.2 gm/dL 3.2-5.2 gm/dL Tram l [facility]: [address] [facility] Low Albumin/globulin Ratio 1.1 1.2-2. 2 [facility]: [address] [facility] 07/21/2020 BMP, Serum or Plasma Normal Glucose, Fastin g 88 mg/dL 70-100 mg/dL [facility]: [address] 0 [facility] Normal Blood Urea Nitrogen 7 mg/dL 7-18 mg/ dL [facility]: [address] [place] [address] Normal Creatinine for GFR 0.77 mg/dL 0.55-1 .30 mg/dL [facility]: [address] [place] [address] Normal Glomerular Filtration Rate > 60.0 >5 1 [facility]: [address] [place] [address] Normal Sodium Level 141 mEq/L 136-145 mEq/L [facility]: [address] [place] [address] Normal Potassium Serum 4.1 mEq/L 3.5-5.1 mE q/L [facility]: [address] [place] [address] High Chloride Level 109 mEq/L 98-107 mEq/ L [facility]: [address] [place] [address] Normal Carbon Dioxide Level 28 mEq/L 21-32 mEq/L [facility]: [address] [place] [address] Low Anion Gap 4 mEq/L 8-16 mEq/L [facility]: [address] [place] [address] Normal Calcium Level 9.2 mg/dL 8.5-10.1 mg/ dL [facility]: [address] [place] [address] 07/21/2020 Pro BNP (Pro B-type Natriuretic Peptide), Serum or Plasma High Nt-pro BNP 224 pg/mL <125 pg/mL [facility]: [address] [place] [address] 07/21/2020 Urinalysis, Dipstick Normal Appearance, Urine hazy clear [facility]: [address] [place] [address] Normal Color, Urine straw yellow [facility]: [address] [place] [address] Normal pH,urine 6.0 units 5.0-9.0 units [facility]: [address] [place] [address] Low Specific [place] Urine Auto 1.001 1 .002-1.035 [facility]: [address] [place] [address] Normal Protein, Urine Auto negative mg/dL n egative mg/dL [facility]: [address] [place] [address] Normal Glucose, Urine (UA) Auto negative mg /dL negative mg/dL [facility]: [address] [place] [address] Normal Ketone, Urine Auto negative mg/dL ne gative mg/dL [facility]: [address] [facility] Normal Urobilinogen, Urine Auto 0.2 mg/dL 0 .0-2.0 mg/dL [facility]: [address] [facility] Normal Bilirubin, Urine Auto negative negat lonny [facility]: [address] [facility] Normal Nitrite, Urine Auto negative negativ e [facility]: [address] [facility] High Leukocyte Esterase, Urine Auto 2+ negative [facility]: [address] [facility] Normal Blood, Urine Blood negative negative [facility]: [address] [facility] High WBC, Urine Auto 4 /hpf 0-3 /hpf Health system: [address] [facility] Normal RBC, Urine Auto 1 /hpf 0-3 /hpf Health system: [address] [facility] High Bacteria, Urine Auto 1+ negative [facility]: [address] [facility] Normal Squamous Epithelial Cell Ur AU 2 /hp f 0-6 /hpf [facility]: [address] [facility] Normal Hyaline Cast, Urine Auto 0 /lpf 0-1 /lpf [facility]: [address] [facility] 07/21/2020 CBC W/ Auto Diff Low White Blood Count 3.6 10 4.0-10.0 10 [facility]: [address] [facility] Normal Red Blood Count 4.52 10 4.00-5.40 10 [facility]: [address] [facility] Normal Hemoglobin 13.7 g/dL 12.0-15.5 g/dL [facility]: [address] [facility] Normal Hematocrit 41.2 % 36.0-47.0 % [facility]: [address] [facility] Normal Mean Corpuscular Volume 91.2 fL 80.0 -96.0 fL [facility]: [address] [facility] Normal Mean Corpuscular Hemoglobin 30.3 pg 27.0-33.0 pg Final [facility]: [address] [facility] Normal Mean Corpuscular HGB Conc 33.3 g/dL 32.0-36.5 g/dL Final [facility]: [address] [facility] Normal Red Cell Distribution Width 12.9 % 1 1.5-14.5 % [facility]: [address] [facility] Normal Platelet Count, Automated 166 10 150 -450 10 [facility]: [address] [facility] Normal Neutrophils % 49.9 % 36.0-66.0 % [facility]: [address] [facility] Normal Lymph % 37.0 % 24.0-44.0 % Final [facility]: [address] [facility] High [place] % 10.3 % 2.0-8.0 % Final [facility]: [address] [facility] Normal Eos % 1.9 % 0.0-3.0 % [facility]: [address] [facility] Normal Baso % 0.6 % 0.0-1.0 % Final [facility]: [address] [facility] Normal Immature Granulocyte % 0.3 % 0-3.0 % [facility]: [address] [facility] Normal Nucleated Red Blood Cell % 0.0 % 0- 0 % [facility]: [address] [facility] Normal Neutrophils # 1.8 10 1.5-8.5 10 Health system: [address] [facility] Low Lymph # 1.3 10 1.5-5.0 10 [facility]: [address] [facility] Normal [place] # 0.4 10 0.0-0.8 10 [facility]: 0 [facility] Normal Eos # 0.1 10 0.0-0.5 10 [facility]: [address] [facility] Normal Baso # 0.0 10 0.0-0.2 10 [facility]: [address] [facility] 06/16/2020 UA W/ Reflex to Culture Normal Appearance, Urine Rfx clear clear [facility]: [address] [facility] Normal Color, Urine Rfx yellow yellow [facility]: [address] [facility] Normal pH,urine Rfx 5.0 units 5.0-9.0 units [facility]: [address] [facility] Normal Specific [place] Ur Auto Rfx 1.011 1.002-1.035 [facility]: [address] [facility] Normal Protein, Urine Auto Rfx negative mg/ dL negative mg/dL [facility]: [address] [facility] Normal Glucose, Urine (UA) Auto Rfx n egative mg/dL negative mg/dL [facility]: [address] [facility] High Ketone, Urine Auto Rfx 1+ mg/dL nega tive mg/dL [facility]: [address] [facility] High Urobilinogen, Urine Auto Rfx 2.0 mg/ dL 0.0-2.0 mg/dL [facility]: [address] [facility] Normal Bilirubin, Urine Auto Rfx negative n egative [facility]: [address] [facility] Normal Nitrite, Urine Auto Rfx negative neg ative [facility]: [address] [facility] Normal Leukocyte Esterase Ur Auto Rfx negat lonny negative [facility]: [address] [facility] Normal Blood, Urine Blood Rfx negative nega tive [facility]: [address] [facility] Normal WBC, Urine Auto Rfx 1 /hpf 0-3 /hpf [facility]: [address] [facility] Normal RBC, Urine Auto Rfx 1 /hpf 0-3 /hpf [facility]: [address] [facility] High Bacteria, Urine Auto Rfx 1+ nega tive [facility]: [address] [facility] Normal Squam Epithelial Cell Ur Aurfx 1 /hp f 0-6 /hpf [facility]: [address] [facility] Normal Mucus, Urine Rfx small negative Fin [facility]: [address] [facility] Normal Hyaline Cast, Urine Auto Rfx 0 /lpf 0-1 /lpf [facility]: [address] [facility] 06/16/2020 CBC W/ Auto Diff Low White Blood Count 3.9 10 4.0-10.0 10 [facility]: [address] [facility] Normal Red Blood Count 4.75 10 4.00-5.40 10 [facility]: [address] [facility] Normal Hemoglobin 14.3 g/dL 12.0-15.5 g/dL [facility]: 0 [facility] Normal Hematocrit 44.0 % 36.0-47.0 % [facility]: 0 [facility] Normal Mean Corpuscular Volume 92.6 fL 80.0 -96.0 fL [facility]: 0 [facility] Normal Mean Corpuscular Hemoglobin 30.1 pg 27.0-33.0 pg [facility]: 0 [facility] Normal Mean Corpuscular HGB Conc 32.5 g/dL 32.0-36.5 g/dL [facility]: [address] [facility] Normal Red Cell Distribution Width 12.6 % 1 1.5-14.5 % [facility]: 0 [facility] Normal Platelet Count, Automated 157 10 150 -450 10 [facility]: [address] [facility] Normal Neutrophils % 65.7 % 36.0-66.0 % [facility]: [address] [facility] Low Lymph % 19.1 % 24.0-44.0 % [facility]: [address] [facility] High [place] % 11.6 % 2.0-8.0 % [facility]: [address] [facility] Normal Eos % 2.3 % 0.0-3.0 % [facility]: [address] [facility] Normal Baso % 0.8 % 0.0-1.0 % [facility]: 0 [facility] Normal Immature Granulocyte % 0.5 % 0-3.0 % [facility]: [address] [place] [address] Normal Nucleated Red Blood Cell % 0.0 % 0- 0 % [facility]: 0 [facility] Normal Neutrophils # 2.6 10 1.5-8.5 10 Health system: 0 [facility] Low Lymph # 0.7 10 1.5-5.0 10 [facility]: 0 [facility] Normal [place] # 0.5 10 0.0-0.8 10 [facility]: 0 [facility] Normal Eos # 0.1 10 0.0-0.5 10 [facility]: 0 [facility] Normal Baso # 0.0 10 0.0-0.2 10 [facility]: 0 [facility] 06/16/2020 Lactic Acid, Serum or Plasma Normal Lactic Acid Sepsis Protocol 1.0 mmol/L 0.4-2.0 mmol/L [facility]: [address] [place] [address] 06/16/2020 Cardiovascular Assessment Panel, Serum Normal CPK Creatine Phosphokinase 59 U/L 26-192 U/L [facility]: [address] [place] [address] Normal CK-mb Value Mass < 1.0 NG/mL <3.6 NG /mL [facility]: [address] [place] [address] Normal mb/CK Relative Index 1.69 < or =4 [facility]: [address] [place] [address] Normal Troponin I < 0.02 NG/mL < 0.10 NG/mL [facility]: [address] [place] [address] 06/16/2020 Hepatic Function Panel, Serum Normal AST/SG OT 31 U/L 7-37 U/L [facility]: [address] [place] [address] Normal ALT/SGPT 32 U/L 12-78 U/L [facility]: [address] [facility] Normal Alkaline Phosphatase 99 U/L 45-117 U /L [facility]: [address] [facility] Normal Bilirubin,total 0.4 mg/dL 0.2-1.0 mg /dL [facility]: 0 [facility] Normal Bilirubin,direct 0.1 mg/dL 0.0-0.2 m g/dL [facility]: [address] [facility] Low Total Protein 6.2 gm/dL 6.4-8.2 gm/d L [facility]: 0 [facility] Normal Albumin 3.2 gm/dL 3.2-5.2 gm/dL Tram l [facility]: [address] [place] [address] Low Albumin/globulin Ratio 1.1 1.2-2. 2 [facility]: [address] [place] [address] 06/16/2020 BMP, Serum or Plasma Normal Glucose, Fastin g 97 mg/dL 70-100 mg/dL [facility]: [address] [facility] Normal Blood Urea Nitrogen 11 mg/dL 7-18 mg /dL [facility]: 0 [facility] Normal Creatinine for GFR 0.88 mg/dL 0.55-1 .30 mg/dL [facility]: [address] [place] [address] Normal Glomerular Filtration Rate > 60.0 >5 1 [facility]: [address] [facility] Normal Sodium Level 140 mEq/L 136-145 mEq/L [facility]: 0 [facility] Normal Potassium Serum 3.7 mEq/L 3.5-5.1 mE q/L [facility]: 0 [facility] Normal Chloride Level 106 mEq/L 98-107 mEq/ L [facility]: 0 [facility] Normal Carbon Dioxide Level 30 mEq/L 21-32 mEq/L [facility]: 0 [facility] Low Anion Gap 4 mEq/L 8-16 mEq/L [facility]: [address] [place] [address] Normal Calcium Level 8.9 mg/dL 8.5-10.1 mg/ dL [facility]: 0 [facility] 06/16/2020 Amylase, Serum or Plasma Normal Amylase 28 U/L 25-115 U/L [facility]: [address] [place] [address] 06/16/2020 Lipase, Serum or Plasma Normal Lipase 96 U/L 7 3-393 U/L [facility]: [address] [place] [address] 06/02/2020 PT/INR Normal Prothrombin Time 12.3 secon ds 12.5-14.3 seconds [facility]: [address] [place] [address] Normal Inr 0.89 [facility]: [address] [place] [address] 06/02/2020 Partial Thromboplastin Time Normal Partial Thromboplastin Time 26.8 seconds 24.2-38.5 seconds [facility] nter: [address] [place] [address] 06/02/2020 Cardiovascular Assessment Panel, Serum Normal CPK Creatine Phosphokinase 113 U/L 26-192 U/L [facility]: [address] [place] [address] Normal CK-mb Value Mass < 1.0 NG/mL <3.6 NG /mL [facility]: [address] [place] [address] Normal mb/CK Relative Index 0.88 < or =4 [facility]: [address] [place] [address] 06/02/2020 BMP, Serum or Plasma High Glucose, Fastin g 115 mg/dL 70-100 mg/dL [facility]: [address] 0 [facility] Normal Blood Urea Nitrogen 10 mg/dL 7-18 mg /dL [facility]: [address] [place] [address] Normal Creatinine for GFR 1.12 mg/dL 0.55-1 .30 mg/dL [facility]: [address] [place] [address] Normal Glomerular Filtration Rate 53.8 >5 1 [facility]: [address] [place] [address] Normal Sodium Level 145 mEq/L 136-145 mEq/L [facility]: [address] [place] [address] Normal Potassium Serum 4.2 mEq/L 3.5-5.1 mE q/L [facility]: [address] [place] [address] High Chloride Level 109 mEq/L 98-107 mEq/ L [facility]: [address] [place] [address] High Carbon Dioxide Level 33 mEq/L 21-32 mEq/L [facility]: [address] [place] [address] Low Anion Gap 3 mEq/L 8-16 mEq/L [facility]: [address] [place] [address] Normal Calcium Level 9.3 mg/dL 8.5-10.1 mg/ dL [facility]: [address] [place] [address] 06/02/2020 Troponin I, Blood Normal Troponin I < 0.02 NG/mL < 0.10 NG/mL [facility]: [address] [place] [address] 06/02/2020 TSH, Serum or Plasma Normal Thyroid Stimulating Hormone 2.580 uIU/mL 0.358-3.740 uIU/mL [facility] nter: [address] [place] [address] 06/02/2020 CBC W/ Auto Diff Normal White Blood Count 6.1 10 4.0-10.0 10 [facility]: [address] [place] [address] Normal Red Blood Count 4.92 10 4.00-5.40 10 [facility]: [address] [place] [address] Normal Hemoglobin 15.0 g/dL 12.0-15.5 g/dL [facility]: [address] [place] [address] Normal Hematocrit 45.6 % 36.0-47.0 % [facility]: [address] [place] [address] Normal Mean Corpuscular Volume 92.7 fL 80.0 -96.0 fL [facility]: [address] [place] [address] Normal Mean Corpuscular Hemoglobin 30.5 pg 27.0-33.0 pg [facility]: [address] [place] [address] Normal Mean Corpuscular HGB Conc 32.9 g/dL 32.0-36.5 g/dL Final [facility]: [address] [facility] Normal Red Cell Distribution Width 12.9 % 1 1.5-14.5 % Final [facility]: [address] [facility] Normal Platelet Count, Automated 208 10 150 -450 10 [facility]: [address] [facility] Normal Neutrophils % 57.3 % 36.0-66.0 % [facility]: [address] [facility] Normal Lymph % 34.0 % 24.0-44.0 % Final [facility]: [address] [facility] Normal [place] % 7.2 % 2.0-8.0 % Final [facility]: [address] [facility] Normal Eos % 1.0 % 0.0-3.0 % [facility]: [address] [facility] Normal Baso % 0.2 % 0.0-1.0 % Final [facility]: [address] [facility] Normal Immature Granulocyte % 0.3 % 0-3.0 % [facility]: [address] [facility] Normal Nucleated Red Blood Cell % 0.0 % 0- 0 % [facility]: [address] [facility] Normal Neutrophils # 3.5 10 1.5-8.5 10 Health system: [address] [facility] Normal Lymph # 2.1 10 1.5-5.0 10 Final [facility]: [address] [facility] Normal [place] # 0.4 10 0.0-0.8 10 Final [facility]: [address] [facility] Normal Eos # 0.1 10 0.0-0.5 10 [facility]: [address] [facility] Normal Baso # 0.0 10 0.0-0.2 10 [facility]: [address] [facility] 05/03/2020 Hemoglobin a1C, Fingerstick Normal Hba1C 5.2 % Final [facility]: [address] [facility] 05/03/2020 Urinalysis, Dipstick, Auto Normal Bilirubin ne g Final [facility]: [address] [facility] Normal Blood neg Final [facility]: [address] [facility] Normal Glucose neg Final Main [facility]: [address] [facility] Normal Ketone neg Final Main [facility]: [address] [facility] Normal Leukocytes neg Final [facility]: [address] [facility] Normal Nitrite neg Final Main [facility]: [address] [facility] Normal Ph 6.0 Final Main [facility]: [address] [facility] Normal Protein neg Final Main [facility] [address] [facility] Normal Specific [place] 1.030 Final [facility]: [address] [facility] Normal Urobilinogen 0.2 Final [facility]: [address] [facility] 01/30/2020 CBC W/ Auto Diff Normal White Blood Count 5.3 10 4.0-10.0 10 Final [facility]: [address] [place] [address] Normal Red Blood Count 4.24 10 4.00-5.40 10 [facility]: [address] [place] [address] Normal Hemoglobin 12.6 g/dL 12.0-15.5 g/dL [facility]: [address] [place] [address] Normal Hematocrit 39.5 % 36.0-47.0 % [facility]: [address] [place] [address] Normal Mean Corpuscular Volume 93.2 fL 80.0 -96.0 fL Final [facility]: [address] [place] [address] Normal Mean Corpuscular Hemoglobin 29.7 pg 27.0-33.0 pg Final [facility]: [address] [place] [address] Low Mean Corpuscular HGB Conc 31.9 g/dL 32.0-36.5 g/dL [facility]: [address] [place] [address] Normal Red Cell Distribution Width 13.2 % 1 1.5-14.5 % [facility]: [address] [place] [address] Low Platelet Count, Automated 127 10 150 -450 10 [facility]: [address] [facility] Normal Neutrophils % 51.8 % 36.0-66.0 % [facility] [place]: [address] [facility] Normal Lymph % 39.0 % 24.0-44.0 % [facility]: [address] [facility] High [place] % 7.1 % 0.0-5.0 % [facility]: [address] [facility] Normal Eos % 1.3 % 0.0-3.0 % [facility]: [address] [facility] Normal Baso % 0.4 % 0.0-1.0 % [facility]: [address] [facility] Normal Immature Granulocyte % 0.4 % 0-3.0 % [facility]: [address] [facility] Normal Nucleated Red Blood Cell % 0.0 % 0- 0 % [facility]: [address] [facility] Normal Neutrophils # 2.8 10 1.5-8.5 10 Health system: [address] [facility] Normal Lymph # 2.1 10 1.5-5.0 10 [facility]: [address] [facility] Normal [place] # 0.4 10 0.0-0.8 10 [facility]: [address] [facility] Normal Eos # 0.1 10 0.0-0.5 10 [facility]: [address] [facility] Normal Baso # 0.0 10 0.0-0.2 10 [facility]: [address] [facility] 01/30/2020 BMP, Serum or Plasma Normal Glucose, Fastin g 98 mg/dL 70-100 mg/dL [facility]: [address] [facility] Normal Blood Urea Nitrogen 13 mg/dL 7-18 mg /dL [facility]: [address] [facility] Normal Creatinine for GFR 1.22 mg/dL 0.55-1 .30 mg/dL [facility]: [address] [facility] Low Glomerular Filtration Rate 48.9 >5 1 [facility]: [address] [facility] Normal Sodium Level 144 mEq/L 136-145 mEq/L [facility]: [address] [facility] Normal Potassium Serum 3.8 mEq/L 3.5-5.1 mE q/L [facility]: [address] [facility] High Chloride Level 108 mEq/L 98-107 mEq/ L [facility]: [address] [facility] Normal Carbon Dioxide Level 30 mEq/L 21-32 mEq/L [facility]: [address] [place] [address] Low Anion Gap 6 mEq/L 8-16 mEq/L [facility]: [address] [place] [address] Normal Calcium Level 8.6 mg/dL 8.5-10.1 mg/ dL [facility]: [address] [facility] 01/30/2020 CK (Creatine Kinase) Mb, Quantitative, Blood No rmal CPK Creatine Phosphokinase 75 U/L 26-192 U/L [facility]: [address] [place] [address] 01/30/2020 Pro BNP (Pro B-type Natriuretic Peptide), Serum or Plasma High Nt-pro BNP 278 pg/mL <125 pg/mL [facility]: [address] [place] [address] 01/18/2020 Istat Chem8+ Panel Normal Istat HCT 38.0 % 38. 0-51.0 % [facility]: [address] [facility] Normal Istat Glucose 83 mg/dL 70-105 mg/dL [facility]: [address] [facility] Normal Istat Sodium 140 mEq/L 136-145 mEq/L [facility]: [address] [facility] Normal Istat Potassium 4.2 mEq/L 3.5-5.1 mE q/L [facility]: [address] [facility] Normal Istat Ca++ 4.8 mg/dL 4.5-5.3 mg/dL F inal [facility]: [address] [facility] Normal Istat Chloride 104 mEq/L 98-109 mEq/ L Final [facility]: [address] [facility] High Istat CO2 30.0 mm/L 23.0-27.0 mm/L F [facility]: [address] [facility] Normal Istat BUN 14 mg/dL 8-26 mg/dL Final [facility]: [address] [facility] Normal Istat Creatinine 1.1 mg/dL 0.6-1.3 m g/dL Final [facility]: [address] [facility] Past Encounters 11/24/2020 Microscopic Hematuria; Fibromyalgia; Mixed Anxiety and Depressive Disorder; Recurrent Falls Arnaud Romero MD: [address] [place] [phone], Ph. 11/05/2020 Overflow Incontinence of Urine; Gastritis; Gastroesophageal Reflux Disease without Esophagitis; Nausea Makayla Nam [facility]: [address] [place] [phone], Ph. 10/26/2020 Covid-19; Dyspnea Makayla Nam [facility]: [address] [place] [phone], Ph. 08/23/2020 Dysuria; Body Mass Index 40+ - Severely Obese Macy Robles PA-C: [address] [place] [phone], Ph. 06/14/2020 SARS-CoV-2 Vaccination Arnaud Romero MD: [address] [place] [phone], Ph. 06/04/2020 Chronic Atrial Fibrillation; Nausea Macy Robles PA-C: [address] [place] [phone], Ph. 05/20/2020 SARS-CoV-2 Vaccination Arnaud Romero MD: [address] [place] [phone], Ph. 05/03/2020 Excessive Thirst; Administration of Influenza Vaccine; Administration of Pneumococcal Vaccine; Large Liver; Chronic Obstructive Lung Disease; Renal Function Tests Abnormal; Screening for Malignant Neoplasm of Breast; Solitary Nodule of Lung; Screening for Malignant Neoplasm of Colon; Gastroesophageal Reflux Disease; Chronic Atrial Fibrillation Macy Robles PA-C: [address] [place] [phone], Ph. 01/22/2020 Constipation; Chronic Atrial Fibrillation; Gastroesophageal Reflux Disease without Esophagitis Macy Robles PA-C: [address] [place] [phone], Ph. Social History Tobacco Smoking Status Former [...] Surgeries None recorded. Imaging None recorded. Vitals 11/24/2020 08:40AM ED FOLLOW-UP Height Weight BMI Blood Pressure 62 in 262 lbs 8 oz 48 kg/m2 123/84 mm[Hg] 11/05/2020 03:40PM TELEHEALTH 20 Height 62 in 10/26/2020 09:00AM TELEHEALTH 20 Height 62 in 08/23/2020 02:00PM ESTABLISHED [id number] Height Weight BMI Blood Pressure 62 in 270 lbs 49.4 kg/m2 121/83 mm[Hg] 06/04/2020 09:00AM ED FOLLOW-UP Height Weight BMI Blood Pressure 62 in 271 lbs 6 oz 49.6 kg/m2 138/84 mm[Hg] 05/03/2020 09:20AM PROVIDER REQUESTED Height Weight BMI Blood Pressure 62 in 270 lbs 49.4 kg/m2 (1) 141/84 mm[H g] (2) 111/66 mm[Hg] 01/22/2020 08:00AM ESTABLISHED [id number] Height Weight BMI Blood Pressure 62 in [...]
--- OUTSIDE RECORDS SUMMARY | 2021-01-24 06:47 | CCD ---
Author Author Renetta Mullen Organization Unknown Address [address] [phone] Phone Care Team Providers Care Satellite Communications Operator Name Role Phone Misha Mullen PCP Allergies, Adverse Reactions, Alerts No Data in Section Problem List Concept Problem Description Status Start Date Created Date Resolv ed Date Snomed Code F33.1 Major Depressive Disorder, Recurrent episode, Moderate Active 05/02/2019 05/02/2019 F41.9 Unspecified Anxiety Disorder Active 04/16/2019 04/16/2019 Medications Rx Norm Medication Route Route Concept Start Date Stop Date Dosage Partha quency Duration Formula Strength Dosage Form Dosage Form Code Dosage Description Medication Id Account Npid Author First Name Author Last Name Taxonomy Code Taxonomy Desc Phone Number [phone] Latuda by mouth [id number] 11/30/2020 02/28/2021 once a day 30 40 m g tablet [id number] [phone] Misha Mullen [id number] Psychiatry [phone] Social History Social History Element Description Concept Effective Date Smoking Status Unknown if ever smoked [id number] Immunizations No Data in Section Vital Signs No Data in Section Procedures Date Concept Id Description Targeted Site Concept Targeted Site Concept Type 11/30/2020 [id number] [facility] Tele[facility] E/M Lvl 3--Est pt CPT Patient has no history of implantable de vices Encounters Encounter Start Date End Date Encounter Type Description Diagnosis Di agnosis Desc Location Author First Name Author Last Name Npid Taxonomy Cod e Taxonomy Desc Phone Number Location Addr1 Location Addr2 Location [facility] Location [facility] Location Zip [id number] 11/30/2020 11/30/2020 [id number] [facility] Telemed E/M Lvl 3--Est p t F33.1 Major depressive disorder, recurrent, moderate [facility] Sebas Cabral [phone] [id number] Psychiatry [phone] [address] [facility], [address] [address] Plan of Treatment No Data in Section Lab Results No Data in Section Instructions No Data in Section Functional Cognitive Status No Data in Section Insurance Providers Insurance Id Policy Effective Date Policy Thru Date [facility] [place] [id number] 08/20/2017 [id number]
--- OUTSIDE RECORDS SUMMARY | 2021-01-24 06:52 | CCD ---
Author Author [facility] Address Unknown Phone Unavailable Support Name Relationship Address Phone NONE, NONE Next Of Kin [address] [facility] [address] [place] [address] PEGGY LORA Next Of Kin [address] [place] [address] Enid Barlow Next Of Kin Unknown Unavailable JEANNA ROACH Next Of Kin [address] [facility] [address] [place] [address] COLTEN MAYEN Next Of Kin [address] [facility] [address] [place] [address] Makayla Alfonso Next Of Kin [address] [place] [address] ENID BARLOW Next Of Kin [address] [place] [address] Nadia Knott MD Next Of Kin [address] [place], [place] [id number] SILVINA LOUIS Next Of Kin [address] [place] [address] PHILLIP (HCPANN Wu Next Of Kin [address] [facility] [place] [address] UE Next Of Kin Unknown Unavailable DISABLED Next Of Kin Unknown ANN FISHER Next Of Kin [address] [place] [address] BALTAZAR VALADEZ Next Of Kin [address] [facility] [address] [place] [address] No, No ECON [address] [place] [address] [phone] [place] [address] [place] [address] [phone] BAR[address] [facility] ECON [address] [place] [address] [phone] LOUISSILVINA ECON [address] [place] [address] Unavailable Care Team Providers Care Cvor Nurse Name Role Phone Mat Romero MD Unavailable Unavailable Mat Romero MD Unavailable Unavailable Mat Romero MD Unavailable Unavailable Mat Romero MD Unavailable Unavailable Mat Romero MD Unavailable Unavailable Mat Romero MD Unavailable Unavailable Mat Romero MD Unavailable Unavailable Mat Romero MD Unavailable Unavailable Mat Romero MD Unavailable Unavailable Mat Romero MD Unavailable Unavailable Mat Romero MD Unavailable Unavailable Mat Romero MD Unavailable Unavailable Mat Romero MD Unavailable Unavailable Mat Romero MD Unavailable Unavailable Mat Romero MD Unavailable Unavailable Mat Romero MD Unavailable Unavailable Mat Romero MD Unavailable Unavailable Mat Romero MD Unavailable Unavailable Mat Romero MD Unavailable Unavailable Mat Romero MD Unavailable Unavailable Mat Romero MD Unavailable Unavailable Mat Romero MD Unavailable Unavailable Mat Romero MD Unavailable Unavailable Mat Romero MD Unavailable Unavailable Mat Romero MD Unavailable Unavailable Mat Romero MD Unavailable Unavailable Mat Romero MD Unavailable Unavailable Mat Romero MD Unavailable Unavailable Mat Romero MD Unavailable Unavailable Mat Romero MD Unavailable Unavailable Mat Romero MD Unavailable Unavailable Mat Romero MD Unavailable Unavailable Mat Romero MD Unavailable Unavailable Mat Romero MD Unavailable Unavailable Mat Romero MD Unavailable Unavailable Mat Romero MD Unavailable Unavailable Mat Romero MD Unavailable Unavailable Mat Romero MD Unavailable Unavailable aMt Romero MD Unavailable Unavailable Mat Romero MD Unavailable Unavailable Mat Romero MD Unavailable Unavailable Mat Romero MD Unavailable Unavailable Mat Romero MD Unavailable Unavailable Mat Romero MD Unavailable Unavailable Mat Romero MD Unavailable Unavailable Mat Romero MD Unavailable Unavailable Mat Romero MD Unavailable Unavailable Mat Romero MD Unavailable Unavailable Mat Romero MD Unavailable Unavailable Mat Romero MD Unavailable Unavailable Mat Romero MD Unavailable Unavailable Mat Romero MD Unavailable Unavailable Mat Romero MD Unavailable Unavailable Mat Romero MD Unavailable Unavailable Mat Romero MD Unavailable Unavailable Mat Romero MD Unavailable Unavailable Mat Romero MD Unavailable Unavailable Mat Romero MD Unavailable Unavailable Mat Romero MD Unavailable Unavailable Mat Romero MD Unavailable Unavailable Mat Romero MD Unavailable Unavailable Mat Romero MD Unavailable Unavailable Mat Romero MD Unavailable Unavailable Mat Romero MD Unavailable Unavailable Mat Romero MD Unavailable Unavailable Mat Romero MD Unavailable Unavailable aMt Romero MD Unavailable Unavailable Mat Romero MD Unavailable Unavailable Mat Romero MD Unavailable Unavailable Mat Romero MD Unavailable Unavailable Mat Romero MD Unavailable Unavailable Mat Romero MD Unavailable Unavailable Mat Romero MD Unavailable Unavailable Mat Romero MD Unavailable Unavailable Mat Romero MD Unavailable Unavailable Mat Romero MD Unavailable Unavailable Mat Romero MD Unavailable Unavailable Mat Romero MD Unavailable Unavailable Mat Romero MD Unavailable Unavailable Mat Romero MD Unavailable Unavailable Mat Romero MD Unavailable Unavailable Mat Romero MD Unavailable Unavailable Mat Romero MD Unavailable Unavailable Mat Romero MD Unavailable Unavailable Mat Romero MD Unavailable Unavailable Mat Romero MD Unavailable Unavailable Mat Romero MD Unavailable Unavailable Mat Romero MD Unavailable Unavailable Mat Romero MD Unavailable Unavailable Mat Romero MD Unavailable Unavailable Mat Romero MD Unavailable Unavailable Mat Romero MD Unavailable Unavailable Mat Romero MD Unavailable Unavailable Sylvia Mendoza MD Unavailable Unavailable Sylvia Mendoza MD Unavailable Unavailable Sylvia Mendoza MD Unavailable Unavailable Sylvia Mendoza MD Unavailable Unavailable Sylvia Mendoza MD Unavailable Unavailable Sylvia Mendoza MD Unavailable Unavailable Sylvia Mendoza MD Unavailable Unavailable Sylvia Mendoza MD Unavailable Unavailable Sylvia Mendoza MD Unavailable Unavailable Sylvia Mendoza MD Unavailable Unavailable Sylvia Mendoza MD Unavailable Unavailable Sylvia Mendoza MD Unavailable Unavailable Sylvia Mendoza MD Unavailable Unavailable Sylvia Mendoza MD Unavailable Unavailable Sylvia Mendoza MD Unavailable Unavailable Sylvia Mendoza MD Unavailable Unavailable Sylvia Mendoza MD Unavailable Unavailable Sylvia Mendoza MD Unavailable Unavailable Sylvia Mendoza MD Unavailable Unavailable Sylvia Mendoza MD Unavailable Unavailable Sylvia Mendoza MD Unavailable Unavailable Sylvia Mendoza MD Unavailable Unavailable Sylvia Mendoza MD Unavailable Unavailable Sylvia Mendoza MD Unavailable Unavailable Sylvia Mendoza MD Unavailable Unavailable Sylvia Mendoza MD Unavailable Unavailable Sylvia Mendoza MD Unavailable Unavailable Sylvia Mendoza MD Unavailable Unavailable Sylvia Mendoza MD Unavailable Unavailable Sylvia Mendoza MD Unavailable Unavailable Makayla Nam MACHINE CLIPPER MACHINE CLIPPER Unavailable Unavailable Kuldip Kelly MD Unavailable Unavailable Kuldip Kelly MD Unavailable Unavailable Kuldip Kelly MD Unavailable Unavailable Mollison, Kuldip Lares MD Unavailable Unavailable Mollison, Kuldip Lares MD Unavailable Unavailable Mollison, Kuldip Lares MD Unavailable Unavailable Mollison, Kuldip Lares MD Unavailable Unavailable Mollison, Kuldip Lares MD Unavailable Unavailable Mollison, Kuldip Lares MD Unavailable Unavailable Mollison, Kuldip Lares MD Unavailable Unavailable Mollison, Kuldip Lares MD Unavailable Unavailable Mollison, Kuldip Lares MD Unavailable Unavailable Mollison, Kuldip Lares MD Unavailable Unavailable Mollison, Kuldip Lares MD Unavailable Unavailable Mollison, Kuldip Lares MD Unavailable Unavailable Mollison, Kuldip Lares MD Unavailable Unavailable Mollison, Kuldip Lares MD Unavailable Unavailable Mollison, Kuldip Lares MD Unavailable Unavailable Mollison, Kuldip Lares MD Unavailable Unavailable Mollison, Kuldip Lares MD Unavailable Unavailable Mollison, Kuldip Lares MD Unavailable Unavailable Mollison, Kuldip Lares MD Unavailable Unavailable Mollison, Kuldip Lares MD Unavailable Unavailable Mollison, Kuldip Lares MD Unavailable Unavailable Mollison, Kuldip Lraes MD Unavailable Unavailable Mollison, Kuldip Lares MD Unavailable Unavailable Mollison, Kuldip Lares MD Unavailable Unavailable Mollison, Kuldip Lares MD Unavailable Unavailable Mollison, Kuldip Lares MD Unavailable Unavailable Mollison, Kuldip Lares MD Unavailable Unavailable Leeann Denny Unavailable Harmon, E Jazzy TRANSFER COORDINATOR Unavailable Unavailable Harmon, E Jazzy TRANSFER COORDINATOR Unavailable Unavailable Harmon, E Jazzy TRANSFER COORDINATOR Unavailable Unavailable Harmon, E Jazzy TRANSFER COORDINATOR Unavailable Unavailable Harmon, E Jazzy TRANSFER COORDINATOR Unavailable Unavailable Harmon, E Jazzy TRANSFER COORDINATOR Unavailable Unavailable Harmon, E Jazzy TRANSFER COORDINATOR Unavailable Unavailable Harmon, E Jazzy TRANSFER COORDINATOR Unavailable Unavailable Harmon, E Jazzy TRANSFER COORDINATOR Unavailable Unavailable Harmon, E Jazzy TRANSFER COORDINATOR Unavailable Unavailable Harmon, E Jazzy TRANSFER COORDINATOR Unavailable Unavailable Harmon, E Jazzy TRANSFER COORDINATOR Unavailable Unavailable Harmon, E Jazzy TRANSFER COORDINATOR Unavailable Unavailable Harmon, E Jazzy TRANSFER COORDINATOR Unavailable Unavailable Harmon, E Jazzy TRANSFER COORDINATOR Unavailable Unavailable Harmon, E Jazzy TRANSFER COORDINATOR Unavailable Unavailable Harmon, E Jazzy TRANSFER COORDINATOR Unavailable Unavailable Harmon, E Jazzy TRANSFER COORDINATOR Unavailable Unavailable Harmon, E Jazzy TRANSFER COORDINATOR Unavailable Unavailable Harmon, E Jazzy TRANSFER COORDINATOR Unavailable Unavailable Harmon, E Jazzy TRANSFER COORDINATOR Unavailable Unavailable Harmon, E Jazzy TRANSFER COORDINATOR Unavailable Unavailable Harmon, E Jazzy TRANSFER COORDINATOR Unavailable Unavailable Robb Nicholson Dominic PA Unavailable Unavailable Robb Nichoslon Dominic PA Unavailable Unavailable Robb Nicholson Dominic PA Unavailable Unavailable Robb Nicholson Dominic PA Unavailable Unavailable Robb Nicholson Dominic PA Unavailable Unavailable Bharat M Dominic PA Unavailable Unavailable Bharat M Dominic PA Unavailable Unavailable Bharat M Dominic PA Unavailable Unavailable Bharat M Dominic PA Unavailable Unavailable Bharat M Dominic PA Unavailable Unavailable Nicholson, M Dominic PA Unavailable Unavailable Nicholson, M Dominic PA Unavailable Unavailable Nicholson, M Dominic PA Unavailable Unavailable Nicholson, M Dominic PA Unavailable Unavailable Nicholson, M Dominic PA Unavailable Unavailable Nicholson, M Dominic PA Unavailable Unavailable Nicholson, M Dominic PA Unavailable Unavailable Nicholson, M Dominic PA Unavailable Unavailable Nicholson, M Dominic PA Unavailable Unavailable Nicholson, M Dominic PA Unavailable Unavailable Nicholson, M Dominic PA Unavailable Unavailable Nicholson, M Dominic PA Unavailable Unavailable Nicholson, M Dominic PA Unavailable Unavailable Nicholson, M Dominic PA Unavailable Unavailable Nicholson, M Dominic PA Unavailable Unavailable Nicholson, M Dominic PA Unavailable Unavailable Nicholson, M Dominic PA Unavailable Unavailable Nicholson, M Dominic PA Unavailable Unavailable Nicholson, M Dominic PA Unavailable Unavailable Nicholson, M Dominic PA Unavailable Unavailable Nicholson, M Dominic PA Unavailable Unavailable Nicholson, M Dominic PA Unavailable Unavailable Nicholson, M Dominic PA Unavailable Unavailable Nciholson, M Dominic PA Unavailable Unavailable Nicholson, M Dominic PA Unavailable Unavailable Nicholson, M Dominic PA Unavailable Unavailable Nicholson, M Dominic PA Unavailable Unavailable Nicholson, M Dominic PA Unavailable Unavailable Nicholson, M Dominic PA Unavailable Unavailable Nicholson, M Dominic PA Unavailable Unavailable Nicholson, M Dominic PA Unavailable Unavailable Nicholson, M Dominic PA Unavailable Unavailable Nicholson, M Domniic PA Unavailable Unavailable Nicholson, M Dominic PA Unavailable Unavailable Nicholson, M Dominic PA Unavailable Unavailable Nicholson, M Dominic PA Unavailable Unavailable Nicholson, M Dominic PA Unavailable Unavailable Nicholson, M Dominic PA Unavailable Unavailable Nicholson, M Dominic PA Unavailable Unavailable Mat Romero MD Unavailable Unavailable Mat Romero MD Unavailable Unavailable Mat Romero MD Unavailable Unavailable Mat Romero MD Unavailable Unavailable Mat Romero MD Unavailable Unavailable Mat Romero MD Unavailable Unavailable Mat Romero MD Unavailable Unavailable Mat Romero MD Unavailable Unavailable Mat Romero MD Unavailable Unavailable Mat Romero MD Unavailable Unavailable Mat Romero MD Unavailable Unavailable Mat Romero MD Unavailable Unavailable Mat Romero MD Unavailable Unavailable Mat Romero MD Unavailable Unavailable Mat Romero MD Unavailable Unavailable Mat Romero MD Unavailable Unavailable Mat Romero MD Unavailable Unavailable Mat Romero MD Unavailable Unavailable Mat Romero MD Unavailable Unavailable Mat Romero MD Unavailable Unavailable Mat Romero MD Unavailable Unavailable Mat Romero MD Unavailable Unavailable Mat Romero MD Unavailable Unavailable Mat Romero MD Unavailable Unavailable Mat Romero MD Unavailable Unavailable Mat Roemro MD Unavailable Unavailable Mat Romero MD Unavailable Unavailable Mat Romero MD Unavailable Unavailable Mat Romero MD Unavailable Unavailable Mat Romero MD Unavailable Unavailable Mat Romero MD Unavailable Unavailable Mat Romero MD Unavailable Unavailable Mat Romero MD Unavailable Unavailable Mat Romero MD Unavailable Unavailable Mat Romero MD Unavailable Unavailable Mat Romero MD Unavailable Unavailable Mat Romero MD Unavailable Unavailable Mat Romero MD Unavailable Unavailable Mat Romero MD Unavailable Unavailable Mat Romero MD Unavailable Unavailable Mat Romero MD Unavailable Unavailable Mat Romero MD Unavailable Unavailable Mat Romero MD Unavailable Unavailable Mat Romero MD Unavailable Unavailable Mat Romero MD Unavailable Unavailable Mat Romero MD Unavailable Unavailable Mat Romero MD Unavailable Unavailable Mat Romero MD Unavailable Unavailable Mat Romero MD Unavailable Unavailable Mat Romero MD Unavailable Unavailable Mat Romero MD Unavailable Unavailable Mat Romero MD Unavailable Unavailable Mat Romero MD Unavailable Unavailable Mat Romero MD Unavailable Unavailable Mat Romero MD Unavailable Unavailable Mat Romero MD Unavailable Unavailable Mat Romero MD Unavailable Unavailable Mat Romero MD Unavailable Unavailable Mat Romero MD Unavailable Unavailable Mat Romero MD Unavailable Unavailable Mat Romero MD Unavailable Unavailable Mat Romero MD Unavailable Unavailable Mat Romero MD Unavailable Unavailable Mat Romero MD Unavailable Unavailable Mat Romero MD Unavailable Unavailable Mat Romero MD Unavailable Unavailable Mat Romero MD Unavailable Unavailable Mat Romero MD Unavailable Unavailable Mat Romero MD Unavailable Unavailable Mat Romero MD Unavailable Unavailable Mat Romero MD Unavailable Unavailable Mat Romero MD Unavailable Unavailable Mat Romero MD Unavailable Unavailable Mat Romero MD Unavailable Unavailable Mat Romero MD Unavailable Unavailable Mat Romero MD Unavailable Unavailable Mat Romero MD Unavailable Unavailable Mat Romero MD Unavailable Unavailable Mat Romero MD Unavailable Unavailable Mat Romero MD Unavailable Unavailable Mat Romero MD Unavailable Unavailable Mat Romero MD Unavailable Unavailable Mat Romero MD Unavailable Unavailable Mat Romero MD Unavailable Unavailable Mat Romero MD Unavailable Unavailable Mat Romero MD Unavailable Unavailable Mat Romero MD Unavailable Unavailable Mat Romero MD Unavailable Unavailable Mat Romero MD Unavailable Unavailable Mat Romero MD Unavailable Unavailable Mat Romero MD Unavailable Unavailable Mat Romero MD Unavailable Unavailable Mat Romero MD Unavailable Unavailable Goutremcirilo, Nicki Unavailable Gianni Nam MACHINE CLIPPER Unavailable Unavailable Cyril, A Makayla MACHINE CLIPPER Unavailable Unavailable Cyril, A Makayla MACHINE CLIPPER Unavailable Unavailable Cyril, A Makayla MACHINE CLIPPER Unavailable Unavailable Cyril, A Makayla MACHINE CLIPPER Unavailable Unavailable Cyril, A Makayla MACHINE CLIPPER Unavailable Unavailable Cyril, A Makayla MACHINE CLIPPER Unavailable Unavailable Cyril, A Makayla MACHINE CLIPPER Unavailable Unavailable Cyril, A Makayla MACHINE CLIPPER Unavailable Unavailable Cyril, A Makayla MACHINE CLIPPER Unavailable Unavailable Cyril, A Makayla MACHINE CLIPPER Unavailable Unavailable Cyril, A Makayla MACHINE CLIPPER Unavailable Unavailable Cyril, A Makayla MACHINE CLIPPER Unavailable Unavailable Cyril, A Makayla MACHINE CLIPPER Unavailable Unavailable Cyril, A Makayla MACHINE CLIPPER Unavailable Unavailable Cyril, A Makayla MACHINE CLIPPER Unavailable Unavailable Cyril, A Makayla MACHINE CLIPPER Unavailable Unavailable Cyril, A Makayla MACHINE CLIPPER Unavailable Unavailable Cyril, A Makayla MACHINE CLIPPER Unavailable Unavailable Cyril, A Makayla MACHINE CLIPPER Unavailable Unavailable Cyril, A Makayla MACHINE CLIPPER Unavailable Unavailable Cyril, A Makayla MACHINE CLIPPER Unavailable Unavailable Cyril, A Makayla MACHINE CLIPPER Unavailable Unavailable Cyril, A Makayla MACHINE CLIPPER Unavailable Unavailable Cyril, A Makayla MACHINE CLIPPER Unavailable Unavailable Cyril, A Makayla MACHINE CLIPPER Unavailable Unavailable Cyril, A Makayla MACHINE CLIPPER Unavailable Unavailable Cyril, A Makayla MACHINE CLIPPER Unavailable Unavailable Cyril, A Makayla MACHINE CLIPPER Unavailable Unavailable Cyril, A Makayla MACHINE CLIPPER Unavailable Unavailable Cyril, A Makayla MACHINE CLIPPER Unavailable Unavailable Scordo, M Macy PA Unavailable Unavailable Scordo, M Macy PA Unavailable Unavailable Scordo, M Macy PA Unavailable Unavailable Scordo, M Macy PA Unavailable Unavailable Scordo, M Macy PA Unavailable Unavailable Scordo, M Macy PA Unavailable Unavailable Scordo, M Macy PA Unavailable Unavailable Scordo, M Macy PA Unavailable Unavailable Scordo, M Macy PA Unavailable Unavailable Scordo, M Macy PA Unavailable Unavailable Scordo, M Macy PA Unavailable Unavailable Scordo, M Macy PA Unavailable Unavailable Scordo, M Macy PA Unavailable Unavailable Scordo, M Macy PA Unavailable Unavailable Scordo, M Macy PA Unavailable Unavailable Scordo, M Macy PA Unavailable Unavailable Scordo, M Macy PA Unavailable Unavailable Scordo, M Macy PA Unavailable Unavailable Scordo, M Macy PA Unavailable Unavailable Scordo, M Macy PA Unavailable Unavailable Scordo, M Macy PA Unavailable Unavailable Scordo, M Macy PA Unavailable Unavailable Scordo, M Macy PA Unavailable Unavailable Scordo, M Macy PA Unavailable Unavailable Scordo, M Macy PA Unavailable Unavailable Scordo, M Macy PA Unavailable Unavailable Scordo, M Macy PA Unavailable Unavailable Scordo, M Macy PA Unavailable Unavailable Scordo, M Macy PA Unavailable Unavailable Scordo, M Macy PA Unavailable Unavailable Scordo, M Macy PA Unavailable Unavailable Scordo, M Macy PA Unavailable Unavailable Scordo, M Macy PA Unavailable Unavailable Scordo, M Macy PA Unavailable Unavailable Scordo, M Macy PA Unavailable Unavailable Scordo, M Macy PA Unavailable Unavailable Scordo, M Macy PA Unavailable Unavailable Scordo, M Macy PA Unavailable Unavailable Scordo, M Macy PA Unavailable Unavailable Scordo, M Macy PA Unavailable Unavailable Scordo, M Macy PA Unavailable Unavailable Scordo, M Macy PA Unavailable Unavailable Scordo, M Macy PA Unavailable Unavailable Scordo, M Macy PA Unavailable Unavailable Scordo, M Macy PA Unavailable Unavailable Scordo, M Macy PA Unavailable Unavailable Scordo, M Macy PA Unavailable Unavailable Rotella, Violet Unavailable Unavailable JENELLE CASTILLO MD Unavailable Unavailable JENELLE CASTILLO MD Unavailable Unavailable JENELLE CASTILLO MD Unavailable Unavailable JENELLE CASTILLO MD Unavailable Unavailable JENELLE CASTILLO MD Unavailable Unavailable JENELLE CASTILLO MD Unavailable Unavailable JENELLE CASTILLO MD Unavailable Unavailable JENELLE CASTILLO MD Unavailable Unavailable JENELLE CASTILLO MD Unavailable Unavailable JENELLE CASTILLO MD Unavailable Unavailable JENELLE CASTILLO MD Unavailable Unavailable JENELLE CASTILLO MD Unavailable Unavailable JENELLE CASTILLO MD Unavailable Unavailable JENELLE CASTILLO MD Unavailable Unavailable JENELLE CASTILLO MD Unavailable Unavailable JENELLE CASTILLO MD Unavailable Unavailable JENELLE CASTILLO MD Unavailable Unavailable JENELLE CASTILLO MD Unavailable Unavailable JENELLE CASTILLO MD Unavailable Unavailable JENELLE CASTILLO MD Unavailable Unavailable JENELLE CASTILLO MD Unavailable Unavailable JENELLE CASTILLO MD Unavailable Unavailable JENELLE CASTILLO MD Unavailable Unavailable JENELLE CASTILLO MD Unavailable Unavailable JENELLE CASTILLO MD Unavailable Unavailable JENELLE CASTILLO MD Unavailable Unavailable JENELLE CASTILLO MD Unavailable Unavailable JENELLE CASTILLO MD Unavailable Unavailable JENELLE CASTILLO MD Unavailable Unavailable JENELLE CASTILLO MD Unavailable Unavailable JENELLE CASTILLO MD Unavailable Unavailable JENELLE CASTILLO MD Unavailable Unavailable JENELLE CASTILLO MD Unavailable Unavailable ANNA, JENELLE SCHULTE Unavailable Unavailable ANNA, JENELLE SCHULTE Unavailable Unavailable ANNA, JENELLE SCHULTE Unavailable Unavailable ANNA, ALMANZAR MD Unavailable Unavailable ANNA, JENELLE SCHULTE Unavailable Unavailable ANNA, JENELLE SCHULTE Unavailable Unavailable ANNA, JENELLE MD Unavailable Unavailable ANNA, JENELLE MD Unavailable Unavailable ANNA, JENELLE MD Unavailable Unavailable ANNA, ALMANZAR MD Unavailable Unavailable ANNA, ALMANZAR MD Unavailable Unavailable ANNA, ALMANZAR MD Unavailable Unavailable ANNA, ALMANZAR MD Unavailable Unavailable ANNA, JENELLE MD Unavailable Unavailable ANNA, JENELLE MD Unavailable Unavailable ANNA, JENELLE MD Unavailable Unavailable ANNA, JENELLE MD Unavailable Unavailable ANNA, JENELLE MD Unavailable Unavailable ANNA, JENELLE MD Unavailable Unavailable ANNA, JENELLE MD Unavailable Unavailable ANNA, JENELLE SCHULTE Unavailable Unavailable ANNA, JENELLE SCHULTE Unavailable Unavailable Mullen, Raul Cabral MD Unavailable Unavailable Mullen, Raul Cabral MD Unavailable Unavailable Mullen, Raul Cabral MD Unavailable Unavailable Mullen, Raul Cabral MD Unavailable Unavailable Cyril, A Makayla MACHINE CLIPPER Unavailable Unavailable [place], A Makayla MACHINE CLIPPER Unavailable Unavailable [place], A Makayla MACHINE CLIPPER Unavailable Unavailable [place], A Makayla MACHINE CLIPPER Unavailable Unavailable [place], A Makayla MACHINE CLIPPER Unavailable Unavailable [place], A Makayla MACHINE CLIPPER Unavailable Unavailable [place], A Makayla MACHINE CLIPPER Unavailable Unavailable [place], A Makayla MACHINE CLIPPER Unavailable Unavailable [place], A Makayla MACHINE CLIPPER Unavailable Unavailable [place], A Makayla MACHINE CLIPPER Unavailable Unavailable [place], A Makayla MACHINE CLIPPER Unavailable Unavailable [place], A Makayla MACHINE CLIPPER Unavailable Unavailable [place], A Makayla MACHINE CLIPPER Unavailable Unavailable [place], A Makayla MACHINE CLIPPER Unavailable Unavailable [place], A Makayla MACHINE CLIPPER Unavailable Unavailable [place], A Makayla MACHINE CLIPPER Unavailable Unavailable [place], A Makayla MACHINE CLIPPER Unavailable Unavailable [place], A Makayla MACHINE CLIPPER Unavailable Unavailable [place], A Makayla MACHINE CLIPPER Unavailable Unavailable [place], A Makayla MACHINE CLIPPER Unavailable Unavailable [place], A Makayla MACHINE CLIPPER Unavailable Unavailable [place], A Makayla MACHINE CLIPPER Unavailable Unavailable [place], A Makayla MACHINE CLIPPER Unavailable Unavailable [place], A Makayla MACHINE CLIPPER Unavailable Unavailable [place], A Makayla MACHINE CLIPPER Unavailable Unavailable [place], A Makayla MACHINE CLIPPER Unavailable Unavailable [place], A Makayla MACHINE CLIPPER Unavailable Unavailable [place], A Makayla MACHINE CLIPPER Unavailable Unavailable [place], A Makayla MACHINE CLIPPER Unavailable Unavailable [place], A Makayla MACHINE CLIPPER Unavailable Unavailable [place], A Makayla MACHINE CLIPPER Unavailable Unavailable Mahgoub, Ahmed MD Unavailable Unavailable Mahgoub, Ahmed MD Unavailable Unavailable Mahgoub, Ahmed MD Unavailable Unavailable Mahgoub, Ahmed MD Unavailable Unavailable Mahgoub, Ahmed MD Unavailable Unavailable Gavino-Wallace, A Mohan DO Unavailable Unavailable Gavino-Wallace, A Mohan DO Unavailable Unavailable Gavino-Wallace, A Mohan DO Unavailable Unavailable Gavino-Wallace, A Mohan DO Unavailable Unavailable Gavino-Wallace, A Mohan DO Unavailable Unavailable Gavino-Wallace, A Mohan DO Unavailable Unavailable EGORHO, F ELVIE FPMHNP Unavailable Unavailable EGORHO, F ELVIE FPMHNP Unavailable Unavailable EGORHO, F ELVIE FPMHNP Unavailable Unavailable EGORHO, F ELVIE FPMHNP Unavailable Unavailable EGORHO, F ELVIE FPMHNP Unavailable Unavailable EGORHO, F ELVIE FPMHNP Unavailable Unavailable EGORHO, F ELVIE FPMHNP Unavailable Unavailable EGORHO, F ELVIE FPMHNP Unavailable Unavailable EGORHO, F ELVIE FPMHNP Unavailable Unavailable Re-disclosure Warning The records that you are about to access may contain information from federally-assisted alcohol or drug abuse programs. If such information is present, then the following federally mandated warning applies: This information has been disclosed to you from records protected by federal confidentiality rules (42 CFR part 2). The federal rules prohibit you from making any further disclosure of this information unless further disclosure is expressly permitted by the written consent of the person to whom it pertains or as otherwise permitted by 42 CFR part 2. A general authorization for the release of medical or other information is NOT sufficient for this purpose. The Federal rules restrict any use of the information to criminally investigate or prosecute any alcohol or drug abuse patient.The records that you are about to access may contain highly sensitive health information, the redisclosure of which is protected by Article 27-F of the [facility] Public Health law. If you continue you may have access to information: Regarding HIV / AIDS; Provided by facilities licensed or operated by the [facility] Office of Mental Health; or Provided by the [facility] Office for People With Developmental Disabilities. If such information is present, then the following [facility] mandated warning applies: This information has been disclosed to you from confidential records which are protected by state law. State law prohibits you from making any further disclosure of this information without the specific written consent of the person to whom it pertains, or as otherwise permitted by law. Any unauthorized further disclosure in violation of state law may result in a fine or halfway sentence or both. A general authorization for the release of medical or other information is NOT sufficient authorization for further disc losure. Allergies and Adverse Reactions Type Description Substance Reaction Status Data Source(s ) Propensity to adverse reactions ADHESIVE TAPE Adhesive Tape Active [facility] Propensity to adverse reactions ALLERGIES NOT ON FILE ALLERGIES NOT O N FILE [facility] Propensity to adverse reactions SORBITAN ESTERS Noxythiolin Facial Swell High [facility] Propensity to adverse reactions ZIPSOR ZIPSOR [facility] Propensity to adverse reactions ZANAFLEX ZANAFLEX [facility] Propensity to adverse reactions NEURONTIN NEURONTIN [facility] Propensity to adverse reactions LYRICA LYRICA [facility] Propensity to adverse reactions CYMBALTA CYMBALTA [facility] Propensity to adverse reactions BACTRIM BACTRIM [facility] Drug allergy DICLOFENAC DICLOFENAC [facility] Drug allergy CYCLOBENZAPRINE CYCLOBENZAPRINE [facility] Drug allergy AMITRIPTYLINE AMITRIPTYLINE [facility] Allergy to substance Allergy to substance Shellfish Containing Produc ts [place] ([facility]) Allergy to substance Allergy to substance metaxalone [place] ([facility]) Allergy to substance Allergy to substance Shellfish Containing Produc ts [place] ([facility]) Allergy to substance Allergy to substance metaxalone [place] ([facility]) Allergy to substance Allergy to substance Shellfish Containing Produc ts [place] ([facility]) Allergy to substance Allergy to substance metaxalone [place] ([facility]) Allergy to substance Allergy to substance Shellfish Containing Produc ts [place] ([facility]) Allergy to substance Allergy to substance metaxalone [place] ([facility]) Allergy to substance Allergy to substance Shellfish Containing Produc ts [place] ([facility]) Allergy to substance Allergy to substance Shellfish Containing Produc ts [place] ([facility]) Allergy to substance Allergy to substance Shellfish Containing Produc ts [place] ([facility]) Family History Family Member Name Family Member Gender Family Member Status Date o f Status Description Data Source(s) Unknown Female Problem [facility] ([facility]) Encounters Encounter Providers Location Date Indications Data Source(s ) Outpatient 02/16/2021 12:00:00 AM [facility] Outpatient Attender: Fawad CARPENTEReferrer: Macy BROWN 02/16/2021 12:00:00 AM [facility] Unknown [address] [facility] [place] [address] 01/06/2021 12:00:00 AM EDT eCW1 ([facility]) Outpatient Referrer: Arnaud Romero MD [email or web address] 01/05/2021 03:02:5 6 PM EDT [facility] Unknown [address] [facility] [place] [address] 12/31/2020 12:00:00 AM EDT eCW1 ([facility]) Arnaud Romero MD: [address] [place] [address], Ph. Attender: Arnaud Romero MD [facility] Medical 12/31/2020 12:00:00 AM EDT [place] ([facility]) Unknown [address] [facility] [address] 12/27/2020 12:00:00 AM EDT eCW1 ([facility]) Outpatient [address] [facility] [place] [address] 12/16/2020 12:00:00 AM EDT eCW1 ([facility]) Unknown [address] [facility] [address] 12/14/2020 12:00:00 AM EDT [facility] Unknown [address] [facility] [place] [address] 12/10/2020 12:00:00 AM EDT eCW1 ([facility]) Outpatient [address] [facility] Y [address] 12/10/2020 12:00:00 AM EDT [facility]CW1 ([facility]) Outpatient Attender: Misha Mullen MD [facility] Brian l 11/30/2020 09:30:00 AM EDT - 11/30/2020 09:30:00 AM EDT [facility] ([facility]) Attender: Misha Mullen MD 11/30/2020 12:00:00 AM EDT [facility] Outpatient Attender: JENELLE CARPENTEReferrer: Arnaud Lindo JP.MANE-[email or web address].MANE 11/26/2020 11:00:50 AM EDT - 11/26/2020 12:10:12 PM EDT [facility] Outpatient Referrer: Arnaud BRAXTONMANE-SJP.MANE 021 12:00:00 AM EDT - 11/26/2020 12:09:[address] [facility] Outpatient Referrer: Arnaud BRAXTONCT-SJP.SYR 11/24/2020 11:40:2 8 AM EDT [facility] Arnaud Romero MD: [address] [place] [address], Ph. Attender: Arnaud Romero MD [facility] Medical 11/24/2020 12:00:00 AM EDT [place] ([facility]) Arnaud Romero MD: [address] [place] [address], Ph. Attender: Arnaud Romero MD [facility] Medical 11/24/2020 12:00:00 AM EDT [place] ([facility]) DAVE Gasca: [address] [place] [address], Ph. Attender: Makayla DUTTA [facility] Medical 11/05/2020 12:00:00 AM EDT [place] ([facility]) EVELINE Gasca: [address] [place] [address], Ph. Attender: Makayla Nam [facility] Medical 11/05/2020 12:00:00 AM EDT [facility] ([facility]) Makayla Nam [facility]: [address], [place] [address], Ph. Attender: Makayla Nam [facility] Medical 11/05/2020 12:00:00 AM EDT [facility] ([facility]) TeleMedicine Phone E/M by Phys 5-10 Min [address] [place] [address] 11/01/2020 12:00:00 AM EDT eCW1 ([facility]) TeleMedicine Phone E/M by Phys 5-10 Min [address] [place] [address] 10/29/2020 12:00:00 AM EDT eCW1 ([facility]) Unknown [address] [facility] [place] [address] 10/27/2020 12:00:00 AM EDT eCW1 ([facility]) Makayla Nam [facility]: [address], [place] [address], Ph. Attender: Makayla Nam [facility] Medical 10/26/2020 12:00:00 AM EDT [place] ([facility]) Makayla Nam [facility]: [address], [place] [address], Ph. Attender: Makayla Nam [facility] Medical 10/26/2020 12:00:00 AM EDT [place] ([facility]) Makayla Nam [facility]: [address], [place] [address], Ph. Attender: Makayla Nam [facility] Medical 10/26/2020 12:00:00 AM EDT [place] ([facility]) Makayla Nam [facility]: [address] [place] [address], Ph. Attender: Makayla DUTTA [facility] Medical 10/26/2020 12:00:00 AM EDT [place] ([facility]) Unknown [address] [facility] [place] [address] 10/15/2020 12:00:00 AM EDT eCW1 ([facility]) Unknown [address] [facility] [place] [address] 10/15/2020 12:00:00 AM EDT eCW1 ([facility]) TeleMedicine Phone E/M by Edmund 21-30 Min [address] [place] [address] 10/15/2020 12:00:00 AM EDT eCW1 ([facility]) Outpatient SJP.CT-SJP.ENEDELIA 10/13/2020 09:32:40 AM EDT [facility] Unknown [address] [facility] [place] [address] 10/11/2020 12:00:00 AM EDT eCW1 ([facility]) Outpatient [address] [facility] [place] [address] 10/08/2020 12:00:00 AM EDT eCW1 ([facility]) Outpatient Attender: Misha Mullen MD [facility] Brian pisano 09/28/2020 09:15:00 AM EDT - 09/28/2020 09:15:00 AM EDT [facility] Attender: Misha Mullen MD 09/28/2020 12:00:00 AM EDT [facility] ([facility]) Extended Individual Psychotherapy - 45 min Attender: Yuliana Don [facility] Shlomo 09/23/2020 09:00:00 AM EDT - 09/23/2020 09:00:00 AM EDT [facility] ([facility]) Attender: Nickibutch Don 09/23/2020 12:00:0 0 AM EDT [facility] ([facility]) Outpatient [address] [facility] [place] [address] 09/22/2020 12:00:00 AM EDT eCW1 ([facility]) (PN Proc 45) Pain Procedure 45 [address] [place] [address] 09/08/2020 12:00:00 AM EDT eCW1 ([facility]) Unknown [address] [facility] [place] [address] 09/03/2020 12:00:00 AM EDT eCW1 ([facility]) Outpatient SJP.CT-[email or web address] 09/01/2020 10:31:14 AM EDT [facility] Outpatient Attender: Misha Mullen MD [facility] 08/31/2020 09:00:00 AM EDT - 08/31/2020 09:00:00 AM EDT [facility] ([facility]) Attender: Misha Mullen MD 08/31/2020 12:00:00 AM EDT [facility] ([facility]) Outpatient Attender: Arnaud Awad/Isis/Shailesh/Myla indl 08/27/2020 02:15:00 PM EDT [facility] ([facility]) Unknown [address] [facility] [place] [address] 08/27/2020 12:00:00 AM EDT eCW1 ([facility]) [place] DiorC: [address] [place] [address], Ph. Attender: Macy BROWN [place] - [facility] Medical 08/23/2020 12:00:00 AM [facility] Macy Robles PA-C: [address], [place] [address], Ph. Attender: Macy BROWN [facility] Medical 08/23/2020 12:00:00 AM EDT [place] ([facility]) Macy Robles PA-C: [address], [place] [address], Ph. Attender: Macy BROWN [facility] Medical 08/23/2020 12:00:00 AM EDT [place] ([facility]) Macy Robles PA-C: [address], [place] [address], Ph. Attender: Macy BROWN [facility] Medical 08/23/2020 12:00:00 AM EDT [place] ([facility]) Macy Robles PA-C: [address], [place] [address], Ph. Attender: Macy BROWN [facility] Medical 08/23/2020 12:00:00 AM EDT [place] ([facility]) Emergency Attender: Mohan Smith DO 08/16/2020 05:06:47 PM EDT - 08/16/2020 09:56:00 PM EDT Pelvic Pain [facility] Pelvic Pain Patient discharged. Health Monitoring - 30 Min Attender: Violet Keenan 08/03/2020 09:30:00 AM EDT - 08/03/2020 09:30:00 AM EDT [facility] ([facility]) Outpatient Attender: Misha Mullen MD [facility] Brian pisano 08/03/2020 09:00:00 AM EDT - 08/03/2020 09:00:00 AM EDT [facility] ([facility]) Unknown [address] [facility] [place] [address] 08/03/2020 12:00:00 AM EDT eCW1 ([facility]) Attender: Violet Noble 08/03/2020 12:00:00 AM EDT [facility] ([facility]) Attender: Misha Mullen MD 08/03/2020 12:00:00 AM EDT [facility] ([facility]) Unknown [address] [facility] [place] [address] 08/02/2020 12:00:00 AM EDT eCW1 ([facility]) Outpatient SJP.CT-SJPSTEPHENIE 07/21/2020 02:08:50 PM EDT [facility] Extended Individual Psychotherapy - 45 min Attender: Yuliana Don [facility] 07/21/2020 08:00:00 AM EDT - 07/21/2020 08:00:00 AM EDT [facility] ([facility]) Attender: Nicki Don 07/21/2020 12:00:0 0 AM EDT [facility] ([facility]) Unknown [address] [facility] [place] [address] 07/20/2020 12:00:00 AM EDT eCW1 ([facility]) Outpatient [address] [facility] [place] [address] 07/20/2020 12:00:00 AM EDT eCW1 ([facility]) Brief Individual Psychotherapy - 30 min Attender: Leeann wren [facility] 07/05/2020 09:30:00 AM EDT - 07/05/2020 09:30:00 AM EDT [facility] ([facility]) Attender: Leeann Denny 07/05/2020 12:00:00 AM EDT [facility] ([facility]) Unknown [address] [facility] [place] [address] 07/02/2020 12:00:00 AM EDT eCW1 ([facility]) Arnaud Romero MD: [address] [place] [address], Ph. Attender: Arnaud Romero MD [facility] Medical 06/14/2020 12:00:00 AM EDT [place] ([facility]) Arnaud Romero MD: [address] [place] [address], Ph. Attender: Arnaud Romero MD [facility] Medical 06/14/2020 12:00:00 AM EDT [place] ([facility]) Arnaud Romero MD: [address] [place] [address], Ph. Attender: Arnaud Romero MD [facility] Medical 06/14/2020 12:00:00 AM EDT [place] ([facility]) Arnaud Romero MD: [address] [place] [address], Ph. Attender: Arnaud Romero MD [facility] Medical 06/14/2020 12:00:00 AM EDT [place] ([facility]) Arnaud Romero MD: [address] [place] [address], Ph. Attender: Arnaud Romero MD [facility] Medical 06/14/2020 12:00:00 AM EDT [place] ([facility]) Arnaud Romero MD: [address] [place] [address], Ph. Attender: Arnaud Romero MD [facility] Medical 06/14/2020 12:00:00 AM EDT [place] ([facility]) Outpatient Attender: Misha Mullen MD [facility] 06/08/2020 09:00:00 AM EDT - 06/08/2020 09:00:00 AM EDT [facility] ([facility]) Attender: Misha Mullen MD 06/08/2020 12:00:00 AM [facility] Macy Robles PA-C: [address], [place] [address], Ph. Attender: Macy BROWN [facility] Medical 06/04/2020 12:00:00 AM [facility] Macy Robles PA-C: [address], [place] [address], Ph. Attender: Macy BROWN [facility] Medical 06/04/2020 12:00:00 AM EDT [place] ([facility]) Macy Robles PA-C: [address], [place] [address], Ph. Attender: Macy BROWN [facility] Medical 06/04/2020 12:00:00 AM EDT [place] ([facility]) Macy Robles PA-C: [address], [place] [address], Ph. Attender: Macy BROWN [facility] Medical 06/04/2020 12:00:00 AM EDT [place] ([facility]) Macy Robles PA-C: [address], [place] [address], Ph. Attender: Macy BROWN [facility] Medical 06/04/2020 12:00:00 AM EDT [place] ([facility]) Macy Robles PA-C: [address], [place] [address], Ph. Attender: Macy BROWN [facility] Medical 06/04/2020 12:00:00 AM EDT [place] ([facility]) Macy Robles PA-C: [address] [place] [address], Ph. Attender: Macy BROWN [facility] Medical 06/04/2020 12:00:00 AM EDT [place] ([facility]) Unknown [address] [facility] [place] [address] 05/26/2020 12:00:00 AM EDT eCW1 ([facility]) Arnaud Romero MD: [address] [place] [address], Ph. Attender: Arnaud Romero MD [facility] Medical 05/20/2020 12:00:00 AM EST [place] ([facility]) Arnaud Romero MD: [address] [place] [address], Ph. Attender: Arnaud Romero MD [facility] Medical 05/20/2020 12:00:00 AM EST [place] ([facility]) Arnaud Romero MD: [address] [place] [address], Ph. Attender: Arnaud Romero MD [facility] Medical 05/20/2020 12:00:00 AM EST [place] ([facility]) Arnaud Romero MD: [address] [place] [address], Ph. Attender: Arnaud Romero MD [facility] Medical 05/20/2020 12:00:00 AM EST [place] ([facility]) Arnaud Romero MD: [address] [place] [address], Ph. Attender: Arnaud Romero MD [facility] Medical 05/20/2020 12:00:00 AM EST [place] ([facility]) Arnaud Romero MD: [address] [place] [address], Ph. Attender: Arnaud Romero MD [facility] Medical 05/20/2020 12:00:00 AM EST [place] ([facility]) Arnaud Romero MD: [address] [place] [address], Ph. Attender: Arnaud Romero MD [facility] Medical 05/20/2020 12:00:00 AM EST [place] ([facility]) Outpatient [address] [facility] [address] 05/20/2020 12:00:00 AM EST eCW1 ([facility]) Arnaud Romero MD: [address] [place] [address], Ph. Attender: Arnaud Romero MD [facility] Medical 05/20/2020 12:00:00 AM EST [place] ([facility]) Outpatient Attender: Misha Mullen MD [facility] 05/11/2020 09:00:00 AM EST - 05/11/2020 09:00:00 AM EST [facility] Attender: Misha Mullen MD 05/11/2020 12:00:00 AM EST [facility] ([facility]) Unknown [address] [facility] [address] 05/05/2020 12:00:00 AM EST eCW1 ([facility]) Macy Robles PA-C: [address] [place] [address], Ph. Attender: Macy BROWN [facility] Medical 05/03/2020 12:00:00 AM EST [place] ([facility]) Macy Robles PA-C: [address], [place] [address], Ph. Attender: Macy BROWN [facility] Medical 05/03/2020 12:00:00 AM EST [place] ([facility]) Macy Robles PA-C: [address], [place] [address], Ph. Attender: Macy BROWN [facility] Medical 05/03/2020 12:00:00 AM EST [place] ([facility]) Macy Robles PA-C: [address], [place] [address], Ph. Attender: Macy BROWN [facility] Medical 05/03/2020 12:00:00 AM EST [place] ([facility]) Macy Robles PA-C: [address], [place] [address], Ph. Attender: Macy BROWN [facility] Medical 05/03/2020 12:00:00 AM EST [place] ([facility]) Macy Robles PA-C: [address], [place] [address], Ph. Attender: Macy BROWN [facility] Medical 05/03/2020 12:00:00 AM EST [place] ([facility]) Macy Robles PA-C: [address], [place] [address], Ph. Attender: Macy BROWN [facility] Medical 05/03/2020 12:00:00 AM EST [place] ([facility]) Macy Robles PA-C: [address], [place] [address], Ph. Attender: Macy BROWN [facility] Medical 05/03/2020 12:00:00 AM EST [place] ([facility]) Macy Robles PA-C: [address] [place] [address], Ph. Attender: Macy BROWN [facility] Medical 05/03/2020 12:00:00 AM EST [place] ([facility]) Outpatient SJP.CT-SJP.SYR 04/29/2020 11:43:45 AM EST [facility] (PN Proc 45) Pain Procedure 45 [address] [place] [address] 04/23/2020 12:00:00 AM EST eCW1 ([facility]) Extended Individual Psychotherapy - 45 min Attender: Yuliana Don [facility] Slhomo 04/14/2020 08:00:00 AM EST - 04/14/2020 08:00:00 AM EST [facility] ([facility]) Attender: Nicki Don 04/14/2020 12:00:0 0 AM EST [facility] ([facility]) Outpatient Attender: Misha Mullen MD [facility] Brian pisano 04/13/2020 10:30:00 AM EST - 04/13/2020 10:30:00 AM EST [facility] ([facility]) Attender: Misha Mullen MD 04/13/2020 12:00:00 AM EST [facility] ([facility]) Unknown [address] [facility] [place] [address] 04/05/2020 12:00:00 AM EST eCW1 ([facility]) Unknown [address] [facility] [place] [address] 04/01/2020 12:00:00 AM EST eCW1 ([facility]) Outpatient [address] [facility] [place] [address] 04/01/2020 12:00:00 AM EST eCW1 ([facility]) Extended Individual Psychotherapy - 45 min Attender: Yuliana Don [facility] 03/30/2020 11:45:00 AM EST - 03/30/2020 11:45:00 AM EST [facility] ([facility]) Attender: Nicki Don 03/30/2020 12:00:0 0 AM EST [facility] ([facility]) Outpatient SJP.CT-SJP.SYR 03/19/2020 08:53:24 AM EST [facility] Outpatient Attender: Arnaud Awad/Isis/Shailesh/Myla valentine 03/19/2020 08:45:00 AM EST [facility] ([facility] Unknown [address] [facility] [place] [address] 03/16/2020 12:00:00 AM EST eCW1 ([facility]) Unknown [address] [facility] [place] [address] 03/16/2020 12:00:00 AM EST eCW1 ([facility]) Extended Individual Psychotherapy - 45 min Attender: Yuliana Don [facility] 03/08/2020 10:00:00 AM EST - 03/08/2020 10:00:00 AM EST [facility] ([facility]) Attender: Nicki Don 03/08/2020 12:00:0 0 AM EST [facility] ([facility]) Unknown [address] [facility] [place] [address] 02/23/2020 12:00:00 AM EST eCW1 ([facility]) Unknown [address] [facility] [place] [address] 02/20/2020 12:00:00 AM EST [facility]CW1 [facility] Unknown [address] [facility] [place] [address] 02/20/2020 12:00:00 AM EST eCW1 ([facility]) Outpatient Attender: Arnaud Awad/Isis/Shailesh/Re indl 02/19/2020 09:20:00 AM EST [facility] ([facility]) Outpatient [address] [facility] [address] 02/19/2020 12:00:00 AM EST eCW1 ([facility]) Extended Individual Psychotherapy - 45 min Attender: Yuliana Don [facility] 02/18/2020 08:00:00 AM EST - 02/18/2020 08:00:00 AM EST [facility] ([facility]) Unknown [address] [facility] [address] 02/18/2020 12:00:00 AM EST eCW1 ([facility]) Attender: Nicki Don 02/18/2020 12:00:0 0 AM EST [facility] ([facility]) (PN Proc 45) Pain Procedure 45 [address] [place] [address] 02/03/2020 12:00:00 AM EST eCW1 ([facility]) Outpatient Attender: Dominic Nicholson PAConsultant: Jazzy Harmon NP 01/26/2020 08:25:00 AM EST - 01/26/2020 08:25:00 AM EST [facility] Macy Robles PA-C: [address] [place] [address], Ph. Attender: Macy BROWN [facility] Medical 01/22/2020 12:00:00 AM EST [facility] ([facility]) Macy Robles PA-C: [address] [place] [address], Ph. Attender: Macy [facility] Medical 01/22/2020 12:00:00 AM EST [facility] ([facility]) Macy Robles PA-C: [address], [place] [address], Ph. Attender: Macy [facility] Medical 01/22/2020 12:00:00 AM EST [facility] ([facility]) Macy Robles PA-C: [address], [place] [address], Ph. Attender: Macy [facility] Medical 01/22/2020 12:00:00 AM EST [facility] ([facility]) Macy Robles PA-C: [address], [place] [address], Ph. Attender: Macy [facility] 01/22/2020 12:00:00 AM EST [facility] ([facility]) Macy Robles PA-C: [address], [place] [address], Ph. Attender: Macy [facility] Medical 01/22/2020 12:00:00 AM EST [facility] ([facility]) Macy Robles PA-C: [address], [place] [address], Ph. Attender: Macy [facility] Medical 01/22/2020 12:00:00 AM EST [facility] ([facility]) Macy Robles PA-C: [address], [place] [address], Ph. Attender: Macy [facility] Medical 01/22/2020 12:00:00 AM EST [facility] ([facility]) Macy Robles PA-C: [address], [place] [address], Ph. Attender: Macy BROWN [facility] Medical 01/22/2020 12:00:00 AM EST [facility] ([facility]) Macy Robles PA-C: [address] [place] [phone], Ph. Attender: Macy [facility] Medical 01/22/2020 12:00:00 AM EST [facility] ([facility]) Unknown [address] [facility] [place] [address] 01/21/2020 12:00:00 AM EST eCW1 ([facility]) Unknown [address] [facility] [place] [address] 01/19/2020 12:00:00 AM EST eCW1 ([facility]) Outpatient [address] [facility] [place] [address] 01/16/2020 12:00:00 AM EST eCW1 ([facility]) Unknown [address] [facility] [place] [address] 01/16/2020 12:00:00 AM EST eCW1 ([facility]) Brief Individual Psychotherapy - 30 min Attender: Nicki cantrell [facility] 01/13/2020 12:15:00 PM EST - 01/13/2020 12:15:00 PM EST [facility] ([facility]) Attender: Nicki Don 01/13/2020 12:00:0 0 AM EST [facility] ([facility]) Outpatient Attender: Sylvia Awad/Isis/Shailesh/Jay ndl 01/06/2020 09:30:00 AM EDT [facility] ([facility]) Outpatient Attender: TRA DUTTA FP 12/29/2019 01:03:01 P M EDT [facility] Outpatient Attender: Makayla AGUILAR 12/27/2019 01:4 9:03 PM EDT [facility] Outpatient Attender: TRA AGUILAR 12/27/2019 01:49:01 P M EDT [facility] Outpatient Attender: Makayla Nam TRA FP 12/24/2019 10:4 4:02 AM EDT [facility] Outpatient Attender: MACHINE CLIPPER Cyril TRA FP 12/23/2019 08:46:04 A M EDT [facility] Outpatient Attender: Makayla Nam MACHINE CLIPPER FP 12/23/2019 08:4 5:01 AM EDT [facility] Outpatient Attender: Makayla Nam MACHINE CLIPPER FP 12/22/2019 12:3 3:00 PM EDT [facility] Outpatient Attender: Makayla Nam TRA FP 12/22/2019 09:1 4:01 AM EDT [facility] Outpatient Attender: TRA DUTTA FP 12/18/2019 09:23:01 A M EDT [facility] Outpatient Attender: ELVIE CARMENCITA AGUILARSTEPHEN [facility] Marco Antonio valladares 12/18/2019 09:00:00 AM EDT - 12/18/2019 09:00:00 AM EDT [facility] ([facility]) Outpatient Attender: MACHINE CLIPPER Cyril MACHINE CLIPPER FP 12/18/2019 08:32:01 A M EDT [facility] Attender: ELVIE CARMENCITA AGUILARSTEPHEN 12/18/2019 12:00: 00 AM EDT [facility] Out[facility] Attender: TRA ELISEP FP 12/17/2019 03:20:01 P M EDT [facility] Outpatient Attender: TRA ELISEP JEFF 12/17/2019 02:43:00 P M EDT [facility] Outpatient Attender: TRA ELISEP FP 12/13/2019 06:39:00 P M EDT [facility] Outpatient Attender: Makaylamika Nam [facility] 12/13/2019 06:3 9:00 PM EDT [facility] Extended Individual Psychotherapy - 45 min Attender: Yuliana Don [facility] Shlomo 12/12/2019 08:00:00 AM EDT - 12/12/2019 08:00:00 AM EDT [facility] ([facility]) Attender: Nicki Don 12/12/2019 12:00:0 0 AM EDT [facility] ([facility]) Unknown [address] [facility] [place] [address] 12/11/2019 12:00:00 AM EDT eCW1 ([facility]) Extended Individual Psychotherapy - 45 min Attender: Yuliana Don [facility] 12/09/2019 11:00:00 AM EDT - 12/09/2019 11:00:00 AM EDT [facility] ([facility]) Attender: Nicki Florencia 12/09/2019 12:00:0 0 AM EDT [facility] ([facility]) Outpatient Att[facility]: [facility] J ail 11/27/2019 09:30:00 AM EDT - 11/27/2019 09:30:00 AM EDT [facility] ([facility]) Attender: ELVIE AGUILARSTEPHEN 11/27/2019 12:00: 00 AM EDT [facility] ([facility]) Outpatient Attender: Arnaud Awad/Isis/Shailesh/Myla indnorris 11/26/2019 11:20:00 AM EDT [facility] ([facility], ) Functional Status Immunizations Vaccine Date Status Description Data Source(s) COVID-19, mRNA, LNP-S, PF, 100 mcg/0.5 mL dose 06/14/2020 01 :38:39 PM EDT completed .5 mL [place] ([facility]) COVID-19, mRNA, LNP-S, PF, 100 mcg/0.5 mL dose 06/14/2020 01 :38:39 PM EDT completed 10.5 mL [facility] ([facility]) COVID-19, mRNA, LNP-S, PF, 100 mcg/0.5 mL dose 06/14/2020 01 :38:39 PM EDT completed 10.5 mL [place] ([facility]) COVID-19, mRNA, LNP-S, PF, 100 mcg/0.5 mL dose 06/14/2020 01 :38:39 PM EDT completed .5 mL [place] ([facility]) COVID-19, mRNA, LNP-S, PF, 100 mcg/0.5 mL dose 06/14/2020 01 :38:39 PM EDT completed .5 mL [place] ([facility]) COVID-19, mRNA, LNP-S, PF, 100 mcg/0.5 mL dose 06/14/2020 01 :38:39 PM EDT completed .5 mL [facility] ([facility]) 207 06/14/2020 12:00:00 AM EDT completed <td I D="[id number]">Moderna Tufj-OIZ-3-Vaccination (COVID)</td><td>06/14/2020, 05/20/2020</td><td></td> [facility] COVID-19 VACCINE Moderna 06/14/2020 12:00:00 AM EDT completed [employer] Vaccine Series Complete: YESThis Data wa s Submitted to [facility] Via [employer]. COVID-19, mRNA, LNP-S, PF, 100 mcg/0.5 mL dose 05/20/2020 11 :53:06 AM EST completed .5 mL [place] ([facility]) COVID-19, mRNA, LNP-S, PF, 100 mcg/0.5 mL dose 05/20/2020 11 :53:06 AM EST completed .5 mL [place] ([facility]) COVID-19, mRNA, LNP-S, PF, 100 mcg/0.5 mL dose 05/20/2020 11 :53:06 AM EST completed .5 mL [place] ([facility]) COVID-19, mRNA, LNP-S, PF, 100 mcg/0.5 mL dose 05/20/2020 11 :53:06 AM EST completed .5 mL [place] ([facility]) COVID-19, mRNA, LNP-S, PF, 100 mcg/0.5 mL dose 05/20/2020 11 :53:06 AM EST completed .5 mL [place] ([facility]) COVID-19, mRNA, LNP-S, PF, 100 mcg/0.5 mL dose 05/20/2020 11 :53:06 AM EST completed .5 mL [place] ([facility]) COVID-19, mRNA, LNP-S, PF, 100 mcg/0.5 mL dose 05/20/2020 11 :53:06 AM EST completed .5 mL [place] ([facility]) COVID-19, mRNA, LNP-S, PF, 100 mcg/0.5 mL dose 05/20/2020 11 :53:06 AM EST completed .5 mL [place] ([facility]) 207 05/20/2020 12:00:00 AM EST completed <td I D="[id number]">Moderna Nleb-TBF-4-Vaccination (COVID)</td><td>06/14/2020, 05/20/2020</td><td></td> [facility] COVID-19 VACCINE Moderna 05/20/2020 12:00:00 AM EST completed [place] Vaccine Series Complete: NOThis Data was Submitted to [facility] Via [employer]. pneumococcal polysaccharide PPV23 05/03/2020 10:32:00 AM EST com pleted 10.5 mL [facility] ([facility]) pneumococcal polysaccharide PPV23 05/03/2020 10:32:00 AM EST com pleted 10.5 mL [facility] ([facility]) pneumococcal polysaccharide PPV23 05/03/2020 10:32:00 AM EST com pleted 10.5 mL [facility] ([facility]) pneumococcal polysaccharide PPV23 05/03/2020 10:32:00 AM EST com pleted 10.5 mL [place] ([facility]) pneumococcal polysaccharide PPV23 05/03/2020 10:32:00 AM EST com pleted 10.5 mL [facility] ([facility]) pneumococcal polysaccharide PPV23 05/03/2020 10:32:00 AM EST com pleted 10.5 mL [facility] ([facility]) pneumococcal polysaccharide PPV23 05/03/2020 10:32:00 AM EST com pleted 10.5 mL [facility] ([facility]) pneumococcal polysaccharide PPV23 05/03/2020 10:32:00 AM EST com pleted 10.5 mL [facility] ([facility]) pneumococcal polysaccharide PPV23 05/03/2020 10:32:00 AM EST com pleted 10.5 mL [facility] ([facility]) New in 2011. IIV4 05/03/2020 10:29:00 AM EST completed .5 mL [place] ([facility]) New in 2011. IIV4 05/03/2020 10:29:00 AM EST completed .5 mL [place] ([facility]) New in 2011. IIV4 05/03/2020 10:29:00 AM EST completed .5 mL [place] ([facility]) New in 2011. IIV4 05/03/2020 10:29:00 AM EST completed .5 mL [place] ([facility]) New in 2011. IIV4 05/03/2020 10:29:00 AM EST completed .5 mL [place] ([facility]) New in 2011. IIV4 05/03/2020 10:29:00 AM EST completed .5 mL [facility] ([facility]) New in 2011. IIV4 05/03/2020 10:29:00 AM EST completed .5 mL [facility] ([facility]) New in 2011. IIV4 05/03/2020 10:29:00 AM EST completed .5 mL [facility] ([facility]) New in 2011. IIV4 05/03/2020 10:29:00 AM EST completed .5 mL [facility] ([facility]) pneumococcal polysaccharide PPV23 05/03/2020 12:00:00 AM EST com pleted <td ID="[id number]">Pneumococcal Polysaccharide</td><td>05/03/2020</td><td></td> [facility] New in 2011. IIV4 05/03/2020 12:00:00 AM EST completed <t d ID="[id number]">Influenza, quadrivalent, PF</td><td>05/03/2020</td><td></td> [facility] New in 2011. IIV4 12/30/2019 09:18:00 AM EDT completed [facility] ([facility] ) INFLUENZA VIRUS VACCINE QUADRIVAL (6 MOS AND UP)/PF 12/12/2019 12:00:00 AM EDT completed [facility] Medications Medication Brand Name Start Date Product Form Dose Route Admi nistrative Instructions Pharmacy Instructions Status Indications Reaction Description Data Source(s) Belbuca 150 MCG Belbuca 150 MCG 01/07/2021 12:00:00 AM EDT active Belbuca 150 MCG eCW1 ([facility]) 24 HR mirabegron 50 MG Extended Release Oral Tablet [M yrbetriq] Myrbetriq 50 MG Myrbetriq 50 MG 12/16/2020 12:00:00 AM EDT 1.0 {tablet} active Myrbetriq 50 MG eCW1 ([facility]) 24 HR mirabegron 50 MG Extended Release Oral Tablet [M yrbetriq] Myrbetriq 50 MG Myrbetriq 50 MG 12/16/2020 12:00:00 AM EDT 1.0 {tablet} active Myrbetriq 50 MG eCW1 ([facility]) 24 HR mirabegron 50 MG Extended Release Oral Tablet [M yrbetriq] Myrbetriq 50 MG Myrbetriq 50 MG 12/16/2020 12:00:00 AM EDT 1.0 {tablet} active Myrbetriq 50 MG eCW1 ([facility]) 24 HR mirabegron 50 MG Extended Release Oral Tablet [M yrbetriq] Myrbetriq 50 MG Myrbetriq 50 MG 12/16/2020 12:00:00 AM EDT 1.0 {tablet} active Myrbetriq 50 MG eCW1 ([facility]) Belbuca 150 MCG Belbuca 150 MCG 12/10/2020 12:00:00 AM EDT active Belbuca 150 MCG eCW1 ([facility]) Belbuca 150 MCG Belbuca 150 MCG 12/10/2020 12:00:00 AM EDT active Belbuca 150 MCG eCW1 ([facility]) Belbuca 150 MCG Bel[place]uca 150 MCG 12/10/2020 12:00:00 AM EDT active Belbuca 150 MCG eCW1 ([facility]) Belbuca 150 MCG Bel[place]uca 150 MCG 12/10/2020 12:00:00 AM EDT active Belbuca 150 MCG eCW1 ([facility]) Belbuca 150 MCG Belbuca 150 MCG 12/10/2020 12:00:00 AM EDT active Belbuca 150 MCG eCW1 ([facility]) Belbuca 150 MCG Bel[place]uca 150 MCG 12/10/2020 12:00:00 AM EDT active Bel[place]uca 150 MCG eCW1 ([facility]) Lurasidone Hydrochloride 40 MG Oral Tablet [Latuda] Latuda 11/30/2020 12:00:00 AM EDT 40 mg by mouth completed <td ID="MedicationRxNorm_1">[id number]</td><td ID="MedicationMedication_1">Latuda</td><td ID="MedicationRoute_1">by mouth</td><td ID="MedicationRouteConcept_1">[id number]</td><td ID="MedicationStartDate_1">11/30/2020</td><td ID="MedicationStopDate_1">02/28/2021</td><td ID="MedicationDosageFrequency_1">once a day</td><td ID="MedicationDuration_1">30</td><td ID="MedicationFormulaStrength_1">40 mg</td><td ID="MedicationDosageForm_1">tablet</td><td ID="MedicationDosageFormCode_1"></td><td ID="MedicationDosageDescription_1"></td><td ID="MedicationMedicationId_1">[id number]</td><td ID="MedicationAccount_1">[id number]</td><td ID="MedicationNpid_1">[id number]</td><td ID="MedicationAuthorFirstName_1">Misha</td><td ID="MedicationAuthorLastName_1">Mullen</td><td ID="MedicationTaxonomyCode_1">[id number]</td><td ID="MedicationTaxonomyDesc_1">Psychiatry</td><td ID="MedicationPhoneNumber_1"> [phone]</td> [facility] ([facility]) Oxybutynin chloride 5 MG Oral Tablet oxybutynin (DITRO RANDOLPH) 5 MG tablet oxybutynin (DITROPAN) 5 MG tablet 11/05/2020 12:00:00 AM EDT 5 mg Oral active Take 5 mg by mouth 2 (two) times a day [facility] Belbuca 75 MCG Belbuca 75 MCG 10/15/2020 12:00:00 AM EDT active Belbuca 75 MCG eCW1 ([facility]) Belbuca 75 MCG Belbuca 75 MCG 10/15/2020 12:00:00 AM EDT active Belbuca 75 MCG eCW1 ([facility]) Belbuca 75 MCG Belbuca 75 MCG 10/15/2020 12:00:00 AM EDT active Belbuca 75 MCG eCW1 ([facility]) Belbuca 75 MCG Belbuca 75 MCG 10/15/2020 12:00:00 AM EDT active Belbuca 75 MCG eCW1 ([facility]) Belbuca 75 MCG Belbuca 75 MCG 10/15/2020 12:00:00 AM EDT active Belbuca 75 MCG eCW1 ([facility]) Belbuca 75 MCG Belbuca 75 MCG 10/15/2020 12:00:00 AM EDT active Belbuca 75 MCG eCW1 ([facility]) Acetaminophen 325 MG / Hydrocodone Andres trate 5 MG Oral Tablet HYDROcodone- Acetaminophen 5-325 MG HYDROcodone-Acetaminophen 5-325 MG 10/08/2020 12:00:00 AM EDT 1.0 {tablet_as_needed} suspended HYDROcodone-Acetaminophen 5- 325 MG eCW1 ([facility]) Acetaminophen 325 MG / Hydrocodone Andres trate 5 MG Oral Tablet HYDROcodone- Acetaminophen 5-325 MG HYDROcodone-Acetaminophen 5-325 MG 10/08/2020 12:00:00 AM EDT 1.0 {tablet_as_needed} active HYDROcodone-Acetaminophen 5-325 MG eCW1 ([facility]) Acetaminophen 325 MG / Hydrocodone Andres trate 5 MG Oral Tablet HYDROcodone- Acetaminophen 5-325 MG HYDROcodone-Acetaminophen 5-325 MG 10/08/2020 12:00:00 AM EDT 1.0 {tablet_as_needed} suspended HYDROcodone-Acetaminophen 5- 325 MG eCW1 ([facility]) Acetaminophen 325 MG / Hydrocodone Andres trate 5 MG Oral Tablet HYDROcodone- Acetaminophen 5-325 MG HYDROcodone-Acetaminophen 5-325 MG 10/08/2020 12:00:00 AM EDT 1.0 {tablet_as_needed} suspended HYDROcodone-Acetaminophen 5- 325 MG eCW1 ([facility]) Acetaminophen 325 MG / Hydrocodone Andres trate 5 MG Oral Tablet HYDROcodone- Acetaminophen 5-325 MG HYDROcodone-Acetaminophen 5-325 MG 10/08/2020 12:00:00 AM EDT 1.0 {tablet_as_needed} suspended HYDROcodone-Acetaminophen 5- 325 MG eCW1 ([facility]) Acetaminophen 325 MG / Hydrocodone Andres trate 5 MG Oral Tablet HYDROcodone- Acetaminophen 5-325 MG HYDROcodone-Acetaminophen 5-325 MG 10/08/2020 12:00:00 AM EDT 1.0 {tablet_as_needed} active HYDROcodone-Acetaminophen 5-325 MG eCW1 ([facility]) Acetaminophen 325 MG / Hydrocodone Andres trate 5 MG Oral Tablet HYDROcodone- Acetaminophen 5-325 MG HYDROcodone-Acetaminophen 5-325 MG 10/08/2020 12:00:00 AM EDT 1.0 {tablet_as_needed} active HYDROcodone-Acetaminophen 5-325 MG eCW1 ([facility]) Acetaminophen 325 MG / Hydrocodone Andres trate 5 MG Oral Tablet HYDROcodone- Acetaminophen 5-325 MG HYDROcodone-Acetaminophen 5-325 MG 10/08/2020 12:00:00 AM EDT 1.0 {tablet_as_needed} suspended HYDROcodone-Acetaminophen 5- 325 MG eCW1 ([facility]) Acetaminophen 325 MG / Hydrocodone Andres trate 5 MG Oral Tablet HYDROcodone- Acetaminophen 5-325 MG HYDROcodone-Acetaminophen 5-325 MG 10/08/2020 12:00:00 AM EDT 1.0 {tablet_as_needed} active eCW1 ([facility]) Acetaminophen 325 MG / Hydrocodone Andres trate 5 MG Oral Tablet HYDROcodone- Acetaminophen 5-325 MG HYDROcodone-Acetaminophen 5-325 MG 10/08/2020 12:00:00 AM EDT 1.0 {tablet_as_needed} suspended HYDROcodone-Acetaminophen 5- 325 MG eCW1 ([facility]) Acetaminophen 325 MG / Hydrocodone Andres trate 5 MG Oral Tablet HYDROcodone- Acetaminophen 5-325 MG HYDROcodone-Acetaminophen 5-325 MG 10/08/2020 12:00:00 AM EDT 1.0 {tablet_as_needed} suspended HYDROcodone-Acetaminophen 5- 325 MG eCW1 ([facility]) Acetaminophen 325 MG / Hydrocodone Andres trate 5 MG Oral Tablet HYDROcodone- Acetaminophen 5-325 MG HYDROcodone-Acetaminophen 5-325 MG 10/08/2020 12:00:00 AM EDT 1.0 {tablet_as_needed} active HYDROcodone-Acetaminophen 5-325 MG eCW1 ([facility]) Acetaminophen 325 MG / Hydrocodone Andres trate 5 MG Oral Tablet HYDROcodone- Acetaminophen 5-325 MG HYDROcodone-Acetaminophen 5-325 MG 10/08/2020 12:00:00 AM EDT 1.0 {tablet_as_needed} active HYDROcodone-Acetaminophen 5-325 MG eCW1 ([facility]) Acetaminophen 325 MG / Hydrocodone Andres trate 5 MG Oral Tablet HYDROcodone- Acetaminophen 5-325 MG HYDROcodone-Acetaminophen 5-325 MG 10/08/2020 12:00:00 AM EDT 1.0 {tablet_as_needed} active HYDROcodone-Acetaminophen 5-325 MG eCW1 ([facility]) Acetaminophen 325 MG / Hydrocodone Andres trate 5 MG Oral Tablet HYDROcodone- Acetaminophen 5-325 MG HYDROcodone-Acetaminophen 5-325 MG 10/08/2020 12:00:00 AM EDT 1.0 {tablet_as_needed} active HYDROcodone-Acetaminophen 5-325 MG eCW1 ([facility]) Lurasidone Hydrochloride 40 MG Oral Tablet [Latuda] Latuda 08/31/2020 12:00:00 AM EDT 40 mg by mouth completed <td ID="MedicationRxNorm_2">[id number]</td><td ID="MedicationMedication_2">Latuda</td><td ID="MedicationRoute_2">by mouth</td><td ID="MedicationRouteConcept_2">[id number]</td><td ID="MedicationStartDate_2">08/31/2020</td><td ID="MedicationStopDate_2">11/29/2020</td><td ID="MedicationDosageFrequency_2">every evening</td><td ID="MedicationDuration_2">30</td><td ID="MedicationFormulaStrength_2">40 mg</td><td ID="MedicationDosageForm_2">tablet</td><td ID="MedicationDosageFormCode_2"></td><td ID="MedicationDosageDescription_2"> </td><td ID="MedicationMedicationId_2">[id number]</td><td ID="MedicationAccount_2">[id number]</td><td ID="MedicationNpid_2">[id number]</td><td ID="MedicationAuthorFirstName_2">Misha</td><td ID="MedicationAuthorLastName_2">Sebas</td><td ID="MedicationTaxonomyCode_2">[id number]</td><td ID="MedicationTaxonomyDesc_2">Psychiatry</td><td ID="MedicationPhoneNumber_2">[phone]</td> [facility] ([facility]) Ondansetron 4 MG Disintegrating Oral Tab let ondansetron ODT (Zofran ODT) 4 mg dispersible tablet ondansetron ODT (Zofran ODT) 4 mg dispersible tablet 08/16/2020 12:00:00 AM EDT 4 mg oral completed Take 1 tablet by mouth every 8 (eight) hours if needed for nausea or vomiting for up to 7 days. [facility] Take 1 tablet by mouth every 8 (eight) h ours if needed for nausea or vomiting for up to 7 days. tramadol hydrochloride 50 MG Oral Tablet traMADoL (ULT YOUSIF) 50 mg tablet traMADoL (ULTRAM) 50 mg tablet 08/16/2020 12:00:00 AM EDT 50 mg oral completed Take 1 tablet by mouth every 8 (eight) h ours if needed for severe pain (severe pain) for up to 5 days. Max Daily Amount: 150 mg [facility] Take 1 tablet by mouth every 8 (eight) h ours if needed for severe pain (severe pain) for up to 5 days. Max Daily Amount: 150 mg Ciprofloxacin 500 MG Oral Tablet ciprofloxacin (Cipro) 500 mg tablet ciprofloxacin (Cipro) 500 mg tablet 08/16/2020 12:00:00 AM EDT 500 mg oral completed Take 1 tablet by mouth 2 (tw o) times a day for 10 days. [facility] Take 1 tablet by mouth 2 (two) times a d ay for 10 days. 168 HR Buprenorphine 0.02 MG/HR Transdermal Patch [BuT rans] Butrans 20 MCG/HR [place] 20 MCG/HR 05/06/2020 12:00:00 AM EST 1.0 {patch_to_skin} suspended [place]rans 20 MCG/HR eCW1 ([facility]) 168 HR Buprenorphine 0.02 MG/HR Transdermal Patch [BuT rans] [place] 20 MCG/HR [place] 20 MCG/HR 05/06/2020 12:00:00 AM EST 1.0 {patch_to_skin} active eCW1 (Formerly [facility]) 168 HR Buprenorphine 0.02 MG/HR Transdermal Patch [BuT rans] Butrans 20 MCG/HR Butrans 20 MCG/HR 05/06/2020 12:00:00 AM EST 1.0 {patch_to_skin} active Butrans 20 MCG/HR eCW1 (Formerly [facility]) 168 HR Buprenorphine 0.02 MG/HR Transdermal Patch [BuT rans] Butrans 20 MCG/HR Butrans 20 MCG/HR 05/06/2020 12:00:00 AM EST 1.0 {patch_to_skin} active Butrans 20 MCG/HR eCW1 (Formerly [facility]) 168 HR Buprenorphine 0.02 MG/HR Transdermal Patch [BuT rans] Butrans 20 MCG/HR Butrans 20 MCG/HR 05/06/2020 12:00:00 AM EST 1.0 {patch_to_skin} active Butrans 20 MCG/HR eCW1 (Formerly [facility]) 168 HR Buprenorphine 0.02 MG/HR Transdermal Patch [BuT rans] Butrans 20 MCG/HR Butrans 20 MCG/HR 05/06/2020 12:00:00 AM EST 1.0 {patch_to_skin} active Butrans 20 MCG/HR eCW1 (Formerly [facility]) 168 HR Buprenorphine 0.02 MG/HR Transdermal Patch [BuT rans] Butrans 20 MCG/HR Butrans 20 MCG/HR 05/06/2020 12:00:00 AM EST 1.0 {patch_to_skin} active Butrans 20 MCG/HR eCW1 (Formerly [facility]) 168 HR Buprenorphine 0.02 MG/HR Transdermal Patch [BuT rans] Butrans 20 MCG/HR Butrans 20 MCG/HR 05/06/2020 12:00:00 AM EST 1.0 {patch_to_skin} active Butrans 20 MCG/HR eCW1 (Formerly [facility]) 168 HR Buprenorphine 0.02 MG/HR Transdermal Patch [BuT rans] Butrans 20 MCG/HR Butrans 20 MCG/HR 05/06/2020 12:00:00 AM EST 1.0 {patch_to_skin} suspended Butrans 20 MCG/HR eCW1 ([facility]) 168 HR Buprenorphine 0.02 MG/HR Transdermal Patch [BuT rans] Butrans 20 MCG/HR Butrans 20 MCG/HR 05/06/2020 12:00:00 AM EST 1.0 {patch_to_skin} suspended Butrans 20 MCG/HR eCW1 ([facility]) 168 HR Buprenorphine 0.02 MG/HR Transdermal Patch [BuT rans] Butrans 20 MCG/HR Butrans 20 MCG/HR 05/06/2020 12:00:00 AM EST 1.0 {patch_to_skin} suspended Butrans 20 MCG/HR eCW1 ([facility]) 168 HR Buprenorphine 0.02 MG/HR Transdermal Patch [BuT rans] Butrans 20 MCG/HR Butrans 20 MCG/HR 05/06/2020 12:00:00 AM EST 1.0 {patch_to_skin} suspended Butrans 20 MCG/HR eCW1 ([facility]) 168 HR Buprenorphine 0.02 MG/HR Transdermal Patch [BuT rans] Butrans 20 MCG/HR Butrans 20 MCG/HR 05/06/2020 12:00:00 AM EST 1.0 {patch_to_skin} suspended Butrans 20 MCG/HR eCW1 ([facility]) 168 HR Buprenorphine 0.02 MG/HR Transdermal Patch [BuT rans] Butrans 20 MCG/HR Butrans 20 MCG/HR 05/06/2020 12:00:00 AM EST 1.0 {patch_to_skin} suspended Butrans 20 MCG/HR eCW1 ([facility]) 168 HR Buprenorphine 0.02 MG/HR Transdermal Patch [BuT rans] Butrans 20 MCG/HR Butrans 20 MCG/HR 05/06/2020 12:00:00 AM EST 1.0 {patch_to_skin} active Butrans 20 MCG/HR eCW1 (Formerly [facility]) 168 HR Buprenorphine 0.02 MG/HR Transdermal Patch [BuT rans] Butrans 20 MCG/HR Butrans 20 MCG/HR 05/06/2020 12:00:00 AM EST 1.0 {patch_to_skin} suspended Butrans 20 MCG/HR eCW1 ([facility]) 168 HR Buprenorphine 0.02 MG/HR Transdermal Patch [BuT rans] Butrans 20 MCG/HR Butrans 20 MCG/HR 05/06/2020 12:00:00 AM EST 1.0 {patch_to_skin} suspended Butrans 20 MCG/HR eCW1 ([facility]) 168 HR Buprenorphine 0.02 MG/HR Transdermal Patch [BuT rans] Butrans 20 MCG/HR Butrans 20 MCG/HR 05/06/2020 12:00:00 AM EST 1.0 {patch_to_skin} suspended Butrans 20 MCG/HR eCW1 ([facility]) 168 HR Buprenorphine 0.02 MG/HR Transdermal Patch [BuT rans] Butrans 20 MCG/HR Butrans 20 MCG/HR 05/06/2020 12:00:00 AM EST 1.0 {patch_to_skin} suspended Butrans 20 MCG/HR eCW1 ([facility]) 168 HR Buprenorphine 0.02 MG/HR Transdermal Patch [BuT rans] Butrans 20 MCG/HR Butrans 20 MCG/HR 05/06/2020 12:00:00 AM EST 1.0 {patch_to_skin} active Butrans 20 MCG/HR eCW1 (Formerly [facility]) 168 HR Buprenorphine 0.02 MG/HR Transdermal Patch [BuT rans] Butrans 20 MCG/HR Butrans 20 MCG/HR 05/06/2020 12:00:00 AM EST 1.0 {patch_to_skin} active Butrans 20 MCG/HR eCW1 (Formerly [facility]) 168 HR Buprenorphine 0.02 MG/HR Transdermal Patch [BuT rans] Butrans 20 MCG/HR Butrans 20 MCG/HR 05/06/2020 12:00:00 AM EST 1.0 {patch_to_skin} active Butrans 20 MCG/HR eCW1 (Formerly [facility]) 168 HR Buprenorphine 0.02 MG/HR Transdermal Patch [BuT rans] Butrans 20 MCG/HR Butrans 20 MCG/HR 05/06/2020 12:00:00 AM EST 1.0 {patch_to_skin} active Butrans 20 MCG/HR eCW1 (Formerly [facility]) 168 HR Buprenorphine 0.02 MG/HR Transdermal Patch [BuT rans] Butrans 20 MCG/HR Butrans 20 MCG/HR 05/06/2020 12:00:00 AM EST 1.0 {patch_to_skin} suspended Butrans 20 MCG/HR eCW1 ([facility]) 168 HR Buprenorphine 0.02 MG/HR Transdermal Patch [BuT rans] Butrans 20 MCG/HR Butrans 20 MCG/HR 05/06/2020 12:00:00 AM EST 1.0 {patch_to_skin} suspended eCW1 ([facility]) 168 HR Buprenorphine 0.02 MG/HR Transdermal Patch [BuT rans] Butrans 20 MCG/HR Butrans 20 MCG/HR 05/06/2020 12:00:00 AM EST 1.0 {patch_to_skin} suspended Butrans 20 MCG/HR eCW1 ([facility]) 168 HR Buprenorphine 0.02 MG/HR Transdermal Patch [BuT rans] Butrans 20 MCG/HR Butrans 20 MCG/HR 05/06/2020 12:00:00 AM EST 1.0 {patch_to_skin} active Butrans 20 MCG/HR eCW1 (Formerly [facility]) 168 HR Buprenorphine 0.02 MG/HR Transdermal Patch [BuT rans] Butrans 20 MCG/HR Butrans 20 MCG/HR 05/06/2020 12:00:00 AM EST 1.0 {patch_to_skin} suspended Butrans 20 MCG/HR eCW1 ([facility]) Belbuca 75 MCG Bel[place]uca 75 MCG 04/01/2020 12:00:00 AM EST active Bel[place] 75 MCG eCW1 ([facility]) Belbuca 75 MCG Bel[place] 75 MCG 04/01/2020 12:00:00 AM EST suspended eCW1 ([facility]) BELBUCA 75 MCG FILM [id number] 04/01/2020 12:00:00 AM EST active APPLY ONE FILM TO GUMS ONCE DAILY FOR PAIN MAX DAILY D OSE ONE FILM [facility] Belbuca 75 MCG Belbuca 75 MCG 04/01/2020 12:00:00 AM EST suspended Bel[place] 75 MCG eCW1 ([facility]) Bel[place]uca 75 MCG Bel[place]uca 75 MCG 04/01/2020 12:00:00 AM EST active Bel[place] 75 MCG eCW1 ([facility]) Bel[place]uca 75 MCG Bel[place] 75 MCG 04/01/2020 12:00:00 AM EST suspended Bel[place] 75 MCG eCW1 ([facility]) Bel[place]uca 75 MCG Bel[place] 75 MCG 04/01/2020 12:00:00 AM EST suspended [place] 75 MCG eCW1 ([facility]) Bel[place]uca 75 MCG Bel[place]uca 75 MCG 04/01/2020 12:00:00 AM EST suspended Bel[place] 75 MCG eCW1 ([facility]) Belbuca 75 MCG Bel[place]uca 75 MCG 04/01/2020 12:00:00 AM EST active Bel[place] 75 MCG eCW1 ([facility]) Bel[place]uca 75 MCG Bel[place] 75 MCG 04/01/2020 12:00:00 AM EST suspended Bel[place] 75 MCG eCW1 ([facility]) Bel[place]uca 75 MCG Bel[place] 75 MCG 04/01/2020 12:00:00 AM EST suspended eCW1 ([facility]) Belbuca 75 MCG Bel[place]uca 75 MCG 04/01/2020 12:00:00 AM EST suspended Bel[place] 75 MCG eCW1 ([facility]) Belbuca 75 MCG Bel[place]uca 75 MCG 04/01/2020 12:00:00 AM EST suspended Bel[place] 75 MCG eCW1 ([facility]) Belbuca 75 MCG Bel[place]uca 75 MCG 04/01/2020 12:00:00 AM EST suspended Bel[place]uca 75 MCG eCW1 ([facility]) Belbuca 75 MCG Bel[place]uca 75 MCG 04/01/2020 12:00:00 AM EST suspended Bel[place]uca 75 MCG eCW1 ([facility]) Belbuca 75 MCG Bel[place]uca 75 MCG 04/01/2020 12:00:00 AM EST suspended Bel[place]uca 75 MCG eCW1 ([facility]) Belbuca 75 MCG Belbuca 75 MCG 04/01/2020 12:00:00 AM EST active Belbuca 75 MCG eCW1 ([facility]) Belbuca 75 MCG Bel[place]uca 75 MCG 04/01/2020 12:00:00 AM EST suspended Bel[place]uca 75 MCG eCW1 ([facility]) Belbuca 75 MCG Bel[place]uca 75 MCG 04/01/2020 12:00:00 AM EST active Belbuca 75 MCG eCW1 ([facility]) Belbuca 75 MCG Belbuca 75 MCG 04/01/2020 12:00:00 AM EST suspended Belbuca 75 MCG eCW1 ([facility]) Diazepam 5 MG Oral Tablet diazepam (VALIUM) 5 MG table t diazepam (VALIUM) 5 MG tablet 02/24/2020 12:00:00 AM EST aborted TAKE ONE TABLET BY MOUTH ONE-HALF HOUR PRIOR TO MRI MAY REPEAT IN 30 MINUTES if no effect MAX DAILY DOSE TWO TABLETS [facility] Carisoprodol 350 MG Oral Tablet carisoprodol (SOMA) 35 0 MG tablet carisoprodol (SOMA) 350 MG tablet 02/21/2020 12:00:00 AM EST aborted TAKE ONE TABLET BY MOUTH ONCE DAILY NEEDED MAX DAILY DOSE ONE TABLET [facility] Diazepam 5 MG Oral Tablet [Valium] Valium 02/20/2020 12:00:00 AM EST active [facility] ([facility] ) Carisoprodol 350 MG Oral Tablet Carisoprodol 350 MG 02/19/2020 1 2:00:00 AM EST 1.0 {tablet_as_needed} suspended Carisoprodol 350 MG eCW1 ([facility]) Carisoprodol 350 MG Oral Tablet Carisoprodol 350 MG 02/19/2020 1 2:00:00 AM EST 1.0 {tablet_as_needed} suspended Carisoprodol 350 MG eCW1 ([facility]) Carisoprodol 350 MG Oral Tablet Carisoprodol 350 MG 02/19/2020 1 2:00:00 AM EST 1.0 {tablet_as_needed} suspended Carisoprodol 350 MG eCW1 ([facility]) Carisoprodol 350 MG Oral Tablet Carisoprodol 350 MG 02/19/2020 1 2:00:00 AM EST 1.0 {tablet_as_needed} active C arisoprodol 350 MG eCW1 ([facility]) Carisoprodol 350 MG Oral Tablet Carisoprodol 350 MG 02/19/2020 1 2:00:00 AM EST 1.0 {tablet_as_needed} suspended Carisoprodol 350 MG eCW1 ([facility]) Carisoprodol 350 MG Oral Tablet Carisoprodol 350 MG 02/19/2020 1 2:00:00 AM EST 1.0 {tablet_as_needed} suspended Carisoprodol 350 MG eCW1 ([facility]) Carisoprodol 350 MG Oral Tablet Carisoprodol 350 MG 02/19/2020 1 2:00:00 AM EST 1.0 {tablet_as_needed} suspended eCW1 ([facility]) Carisoprodol 350 MG Oral Tablet Carisoprodol 350 MG 02/19/2020 1 2:00:00 AM EST 1.0 {tablet_as_needed} suspended eCW1 ([facility]) Carisoprodol 350 MG Oral Tablet Carisoprodol 350 MG 02/19/2020 1 2:00:00 AM EST 1.0 {tablet_as_needed} suspended Carisoprodol 350 MG eCW1 ([facility]) Carisoprodol 350 MG Oral Tablet Carisoprodol 350 MG 02/19/2020 1 2:00:00 AM EST 1.0 {tablet_as_needed} suspended Carisoprodol 350 MG eCW1 ([facility]) Carisoprodol 350 MG Oral Tablet Carisoprodol 350 MG 02/19/2020 1 2:00:00 AM EST 1.0 {tablet_as_needed} suspended Carisoprodol 350 MG eCW1 ([facility]) Carisoprodol 350 MG Oral Tablet Carisoprodol 350 MG 02/19/2020 1 2:00:00 AM EST 1.0 {tablet_as_needed} suspended Carisoprodol 350 MG eCW1 ([facility]) Carisoprodol 350 MG Oral Tablet Carisoprodol 350 MG 02/19/2020 1 2:00:00 AM EST 1.0 {tablet_as_needed} suspended Carisoprodol 350 MG eCW1 ([facility]) Carisoprodol 350 MG Oral Tablet Carisoprodol 350 MG 02/19/2020 1 2:00:00 AM EST 1.0 {tablet_as_needed} suspended Carisoprodol 350 MG eCW1 ([facility]) Carisoprodol 350 MG Oral Tablet Carisoprodol 350 MG 02/19/2020 1 2:00:00 AM EST 1.0 {tablet_as_needed} suspended Carisoprodol 350 MG eCW1 ([facility]) Carisoprodol 350 MG Oral Tablet Carisoprodol 350 MG 02/19/2020 1 2:00:00 AM EST 1.0 {tablet_as_needed} suspended Carisoprodol 350 MG eCW1 ([facility]) Carisoprodol 350 MG Oral Tablet Carisoprodol 350 MG 02/19/2020 1 2:00:00 AM EST 1.0 {tablet_as_needed} active C arisoprodol 350 MG eCW1 ([facility]) Carisoprodol 350 MG Oral Tablet Carisoprodol 350 MG 02/19/2020 1 2:00:00 AM EST 1.0 {tablet_as_needed} suspended Carisoprodol 350 MG eCW1 ([facility]) Carisoprodol 350 MG Oral Tablet Carisoprodol 350 MG 02/19/2020 1 2:00:00 AM EST 1.0 {tablet_as_needed} suspended Carisoprodol 350 MG eCW1 ([facility]) Carisoprodol 350 MG Oral Tablet Carisoprodol 350 MG 02/19/2020 1 2:00:00 AM EST 1.0 {tablet_as_needed} active C arisoprodol 350 MG eCW1 ([facility]) Carisoprodol 350 MG Oral Tablet Carisoprodol 350 MG 02/19/2020 1 2:00:00 AM EST 1.0 {tablet_as_needed} active C arisoprodol 350 MG eCW1 ([facility]) Carisoprodol 350 MG Oral Tablet Carisoprodol 350 MG 02/19/2020 1 2:00:00 AM EST 1.0 {tablet_as_needed} active C arisoprodol 350 MG eCW1 ([facility]) Carisoprodol 350 MG Oral Tablet Carisoprodol 350 MG 02/19/2020 1 2:00:00 AM EST 1.0 {tablet_as_needed} suspended Carisoprodol 350 MG eCW1 ([facility]) Carisoprodol 350 MG Oral Tablet Carisoprodol 350 MG 02/19/2020 1 2:00:00 AM EST 1.0 {tablet_as_needed} suspended Carisoprodol 350 MG eCW1 ([facility]) Carisoprodol 350 MG Oral Tablet Carisoprodol 350 MG 02/19/2020 1 2:00:00 AM EST 1.0 {tablet_as_needed} suspended Carisoprodol 350 MG eCW1 ([facility]) Carisoprodol 350 MG Oral Tablet Carisoprodol 350 MG 02/19/2020 1 2:00:00 AM EST 1.0 {tablet_as_needed} suspended Carisoprodol 350 MG eCW1 ([facility]) metaxalone 800 MG Oral Tablet metaxalone (SKELAXIN) 80 0 MG tablet metaxalone (SKELAXIN) 800 MG tablet 02/19/2020 12:00:00 AM EST aborted TAKE ONE TABLET BY MOUTH THREE TIMES DAILY NEEDED FOR PAIN AND SPASMS [facility] Carisoprodol 350 MG Oral Tablet Carisoprodol 350 MG 02/19/2020 1 2:00:00 AM EST 1.0 {tablet_as_needed} suspended Carisoprodol 350 MG eCW1 ([facility]) Carisoprodol 350 MG Oral Tablet Carisoprodol 350 MG 02/19/2020 1 2:00:00 AM EST 1.0 {tablet_as_needed} active C arisoprodol 350 MG eCW1 ([facility]) Carisoprodol 350 MG Oral Tablet Carisoprodol 350 MG 02/19/2020 1 2:00:00 AM EST 1.0 {tablet_as_needed} suspended Carisoprodol 350 MG eCW1 ([facility]) Carisoprodol 350 MG Oral Tablet Carisoprodol 350 MG 02/19/2020 1 2:00:00 AM EST 1.0 {tablet_as_needed} suspended Carisoprodol 350 MG eCW1 ([facility]) Carisoprodol 350 MG Oral Tablet Carisoprodol 350 MG 02/19/2020 1 2:00:00 AM EST 1.0 {tablet_as_needed} suspended Carisoprodol 350 MG eCW1 ([facility]) Carisoprodol 350 MG Oral Tablet Carisoprodol 350 MG 02/19/2020 1 2:00:00 AM EST 1.0 {tablet_as_needed} suspended Carisoprodol 350 MG eCW1 ([facility]) Carisoprodol 350 MG Oral Tablet Carisoprodol 350 MG 02/19/2020 1 2:00:00 AM EST 1.0 {tablet_as_needed} active C arisoprodol 350 MG eCW1 ([facility]) Carisoprodol 350 MG Oral Tablet Carisoprodol 350 MG 02/19/2020 1 2:00:00 AM EST 1.0 {tablet_as_needed} suspended Carisoprodol 350 MG eCW1 ([facility]) Carisoprodol 350 MG Oral Tablet Carisoprodol 350 MG 02/19/2020 1 2:00:00 AM EST 1.0 {tablet_as_needed} active C arisoprodol 350 MG eCW1 ([facility]) Carisoprodol 350 MG Oral Tablet Carisoprodol 350 MG 02/19/2020 1 2:00:00 AM EST 1.0 {tablet_as_needed} suspended Carisoprodol 350 MG eCW1 ([facility]) Carisoprodol 350 MG Oral Tablet Carisoprodol 350 MG 02/19/2020 1 2:00:00 AM EST 1.0 {tablet_as_needed} active C arisoprodol 350 MG eCW1 ([facility]) Carisoprodol 350 MG Oral Tablet Carisoprodol 350 MG 02/19/2020 1 2:00:00 AM EST 1.0 {tablet_as_needed} suspended Carisoprodol 350 MG eCW1 ([facility]) Lurasidone Hydrochloride 40 MG Oral Tablet lurasidone (Latuda) 40 mg tablet lurasidone (Latuda) 40 mg tablet 01/30/2020 12:00:00 AM EST 20 mg oral completed Take 20 mg by mouth at bed time. [facility] Take 20 mg by mouth at bed time. Lurasidone Hydrochloride 40 MG Oral Tablet lurasidone HCl (LATUDA) 40 MG TABS lurasidone HCl (LATUDA) 40 MG TABS 01/30/2020 12:00:00 AM EST 20 mg Oral active Take 20 mg by mouth [facility] Lurasidone Hydrochloride 40 MG Oral Tablet lurasidone (Latuda) 40 mg tablet lurasidone (Latuda) 40 mg tablet 01/30/2020 12:00:00 AM EST 20 mg oral completed Take 20 mg by mouth at bed time. [facility] Take 20 mg by mouth at bed time. Lurasidone Hydrochloride 40 MG Oral Tablet [Latuda] LA TUDA 40 MG TABS LATUDA 40 MG TABS 01/30/2020 12:00:00 AM EST 40 mg Oral active Take 40 mg by mouth [facility] NITROFURANTOIN, MACROCRYSTALS 25 MG / Ni trofurantoin, Monohydrate 75 MG Oral Capsule nitrofurantoin, macrocrystal-monohydrate, (MACROBID) 100 MG capsule nitrofurantoin, macrocrystal-monohydrate, (MACROBID) 100 MG capsule 01/26/2020 12:00:00 AM EST 100 mg Oral aborted Take 100 mg by mouth 2 (two) times a day [facility] Omeprazole 40 MG Delayed Release Oral Ca psule omeprazole (PRILOSEC) 40 MG capsule omeprazole (PRILOSEC) 40 MG capsule 01/26/2020 12:00:00 AM EST 40 mg Oral aborted Take 40 mg by mouth daily [facility] Omeprazole 40 MG Delayed Release Oral Ca psule omeprazole (PriLOSEC) [address] capsule omeprazole (PriLOSEC) [address] capsule 01/26/2020 12:00:00 AM ES T 40 mg oral completed Take 40 mg by mouth da nehemiah. [facility] Take 40 mg by mouth daily. Omeprazole 40 MG Delayed Release Oral Ca psule omeprazole (PriLOSEC) [address] capsule omeprazole (PriLOSEC) [address] capsule 01/26/2020 12:00:00 AM ES T 40 mg oral completed Take 40 mg by mouth da nehemiah. [facility] Take 40 mg by mouth daily. tizanidine 4 MG Oral Tablet tiZANidine (ZANAFLEX) 4 MG tablet tiZANidine (ZANAFLEX) 4 MG tablet 01/21/2020 12:00:00 AM EST aborted TAKE ONE TABLET BY MOUTH UP TO THREE TIMES DAILY NEEDED FOR spasm [facility] metaxalone 800 MG Oral Tablet Metaxalone 800 MG Metaxalone 8 00 MG 01/16/2020 12:00:00 AM EST 1.0 {tablet} suspended Metaxalone 800 MG eCW1 ([facility]) metaxalone 800 MG Oral Tablet Metaxalone 800 MG Metaxalone 8 00 MG 01/16/2020 12:00:00 AM EST 1.0 {tablet} suspended Metaxalone 800 MG eCW1 ([facility]) metaxalone 800 MG Oral Tablet Metaxalone 800 MG Metaxalone 8 00 MG 01/16/2020 12:00:00 AM EST 1.0 {tablet} active Me taxalone 800 MG eCW1 ([facility]) metaxalone 800 MG Oral Tablet Metaxalone 800 MG Metaxalone 8 00 MG 01/16/2020 12:00:00 AM EST 1.0 {tablet} suspended eCW1 ([facility]) metaxalone 800 MG Oral Tablet Metaxalone 800 MG Metaxalone 8 00 MG 01/16/2020 12:00:00 AM EST 1.0 {tablet} active Me taxalone 800 MG eCW1 ([facility]) metaxalone 800 MG Oral Tablet Metaxalone 800 MG Metaxalone 8 00 MG 01/16/2020 12:00:00 AM EST 1.0 {tablet} suspended Metaxalone 800 MG eCW1 ([facility]) metaxalone 800 MG Oral Tablet Metaxalone 800 MG Metaxalone 8 00 MG 01/16/2020 12:00:00 AM EST 1.0 {tablet} suspended Metaxalone 800 MG eCW1 ([facility]) metaxalone 800 MG Oral Tablet Metaxalone 800 MG Metaxalone 8 00 MG 01/16/2020 12:00:00 AM EST 1.0 {tablet} suspended Metaxalone 800 MG eCW1 ([facility]) metaxalone 800 MG Oral Tablet Metaxalone 800 MG Metaxalone 8 00 MG 01/16/2020 12:00:00 AM EST 1.0 {tablet} suspended Metaxalone 800 MG eCW1 ([facility]) metaxalone 800 MG Oral Tablet Metaxalone 800 MG Metaxalone 8 00 MG 01/16/2020 12:00:00 AM EST 1.0 {tablet} active Me taxalone 800 MG eCW1 ([facility]) metaxalone 800 MG Oral Tablet Metaxalone 800 MG Metaxalone 8 00 MG 01/16/2020 12:00:00 AM EST 1.0 {tablet} active Me taxalone 800 MG eCW1 ([facility]) metaxalone 800 MG Oral Tablet Metaxalone 800 MG Metaxalone 8 00 MG 01/16/2020 12:00:00 AM EST 1.0 {tablet} suspended Metaxalone 800 MG eCW1 ([facility]) metaxalone 800 MG Oral Tablet Metaxalone 800 MG Metaxalone 8 00 MG 01/16/2020 12:00:00 AM EST 1.0 {tablet} suspended Metaxalone 800 MG eCW1 ([facility]) metaxalone 800 MG Oral Tablet Metaxalone 800 MG Metaxalone 8 00 MG 01/16/2020 12:00:00 AM EST 1.0 {tablet} suspended Metaxalone 800 MG eCW1 ([facility]) metaxalone 800 MG Oral Tablet Metaxalone 800 MG Metaxalone 8 00 MG 01/16/2020 12:00:00 AM EST 1.0 {tablet} suspended Metaxalone 800 MG eCW1 ([facility]) metaxalone 800 MG Oral Tablet Metaxalone 800 MG Metaxalone 8 00 MG 01/16/2020 12:00:00 AM EST 1.0 {tablet} active Me taxalone 800 MG eCW1 ([facility]) metaxalone 800 MG Oral Tablet Metaxalone 800 MG Metaxalone 8 00 MG 01/16/2020 12:00:00 AM EST 1.0 {tablet} active Me taxalone 800 MG eCW1 ([facility]) metaxalone 800 MG Oral Tablet Metaxalone 800 MG Metaxalone 8 00 MG 01/16/2020 12:00:00 AM EST 1.0 {tablet} suspended Metaxalone 800 MG eCW1 ([facility]) metaxalone 800 MG Oral Tablet Metaxalone 800 MG Metaxalone 8 00 MG 01/16/2020 12:00:00 AM EST 1.0 {tablet} active Me taxalone 800 MG eCW1 ([facility]) metaxalone 800 MG Oral Tablet Metaxalone 800 MG Metaxalone 8 00 MG 01/16/2020 12:00:00 AM EST 1.0 {tablet} suspended Metaxalone 800 MG eCW1 ([facility]) metaxalone 800 MG Oral Tablet Metaxalone 800 MG Metaxalone 8 00 MG 01/16/2020 12:00:00 AM EST 1.0 {tablet} active Me taxalone 800 MG eCW1 ([facility]) metaxalone 800 MG Oral Tablet Metaxalone 800 MG Metaxalone 8 00 MG 01/16/2020 12:00:00 AM EST 1.0 {tablet} suspended Metaxalone 800 MG eCW1 ([facility]) metaxalone 800 MG Oral Tablet Metaxalone 800 MG Metaxalone 8 00 MG 01/16/2020 12:00:00 AM EST 1.0 {tablet} suspended Metaxalone 800 MG eCW1 ([facility]) metaxalone 800 MG Oral Tablet Metaxalone 800 MG Metaxalone 8 00 MG 01/16/2020 12:00:00 AM EST 1.0 {tablet} suspended eCW1 ([facility]) metaxalone 800 MG Oral Tablet Metaxalone 800 MG Metaxalone 8 00 MG 01/16/2020 12:00:00 AM EST 1.0 {tablet} active Me taxalone 800 MG eCW1 ([facility]) metaxalone 800 MG Oral Tablet Metaxalone 800 MG Metaxalone 8 00 MG 01/16/2020 12:00:00 AM EST 1.0 {tablet} active Me taxalone 800 MG eCW1 ([facility]) metaxalone 800 MG Oral Tablet Metaxalone 800 MG Metaxalone 8 00 MG 01/16/2020 12:00:00 AM EST 1.0 {tablet} active Me taxalone 800 MG eCW1 ([facility]) metaxalone 800 MG Oral Tablet Metaxalone 800 MG Metaxalone 8 00 MG 01/16/2020 12:00:00 AM EST 1.0 {tablet} suspended Metaxalone 800 MG eCW1 ([facility]) metaxalone 800 MG Oral Tablet Metaxalone 800 MG Metaxalone 8 00 MG 01/16/2020 12:00:00 AM EST 1.0 {tablet} suspended Metaxalone 800 MG eCW1 ([facility]) metaxalone 800 MG Oral Tablet Metaxalone 800 MG Metaxalone 8 00 MG 01/16/2020 12:00:00 AM EST 1.0 {tablet} suspended Metaxalone 800 MG eCW1 ([facility]) metaxalone 800 MG Oral Tablet Metaxalone 800 MG Metaxalone 8 00 MG 01/16/2020 12:00:00 AM EST 1.0 {tablet} suspended Metaxalone 800 MG eCW1 ([facility]) metaxalone 800 MG Oral Tablet Metaxalone 800 MG Metaxalone 8 00 MG 01/16/2020 12:00:00 AM EST 1.0 {tablet} suspended Metaxalone 800 MG eCW1 ([facility]) metaxalone 800 MG Oral Tablet Metaxalone 800 MG Metaxalone 8 00 MG 01/16/2020 12:00:00 AM EST 1.0 {tablet} suspended Metaxalone 800 MG eCW1 ([facility]) metaxalone 800 MG Oral Tablet Metaxalone 800 MG Metaxalone 8 00 MG 01/16/2020 12:00:00 AM EST 1.0 {tablet} suspended Metaxalone 800 MG eCW1 ([facility]) metaxalone 800 MG Oral Tablet Metaxalone 800 MG Metaxalone 8 00 MG 01/16/2020 12:00:00 AM EST 1.0 {tablet} suspended Metaxalone 800 MG eCW1 ([facility]) metaxalone 800 MG Oral Tablet Metaxalone 800 MG Metaxalone 8 00 MG 01/16/2020 12:00:00 AM EST 1.0 {tablet} suspended Metaxalone 800 MG eCW1 ([facility]) metaxalone 800 MG Oral Tablet Metaxalone 800 MG Metaxalone 8 00 MG 01/16/2020 12:00:00 AM EST 1.0 {tablet} suspended Metaxalone 800 MG eCW1 ([facility]) metaxalone 800 MG Oral Tablet Metaxalone 800 MG Metaxalone 8 00 MG 01/16/2020 12:00:00 AM EST 1.0 {tablet} suspended Metaxalone 800 MG eCW1 ([facility]) metaxalone 800 MG Oral Tablet Metaxalone 800 MG Metaxalone 8 00 MG 01/16/2020 12:00:00 AM EST 1.0 {tablet} suspended Metaxalone 800 MG eCW1 ([facility]) metaxalone 800 MG Oral Tablet Metaxalone 800 MG Metaxalone 8 00 MG 01/16/2020 12:00:00 AM EST 1.0 {tablet} suspended Metaxalone 800 MG eCW1 ([facility]) metaxalone 800 MG Oral Tablet Metaxalone 800 MG Metaxalone 8 00 MG 01/16/2020 12:00:00 AM EST 1.0 {tablet} suspended Metaxalone 800 MG eCW1 ([facility]) metaxalone 800 MG Oral Tablet Metaxalone 800 MG Metaxalone 8 00 MG 01/16/2020 12:00:00 AM EST 1.0 {tablet} suspended Metaxalone 800 MG eCW1 ([facility]) metaxalone 800 MG Oral Tablet Metaxalone 800 MG Metaxalone 8 00 MG 01/16/2020 12:00:00 AM EST 1.0 {tablet} suspended Metaxalone 800 MG eCW1 ([facility]) 14 ACTUAT fluticasone furoate 0.1 MG/ACT UAT Dry Powder Inhaler Fluticasone Furoate (ARNUITY) 100 MCG/ACT AEPB Fluticasone Furoate (ARNUITY) 100 MCG/AC T AEPB 01/06/2020 12:00:00 AM EDT 2 {puff} Inhalation activ e Inhale 2 puffs [facility] 14 ACTUAT fluticasone furoate 0.1 MG/ACTUAT Dry Powder Inhaler [Arnuity] Arnuity Ellipta 01/06/2020 12:00:00 AM EDT RESPIRATORY active MEDENT ([facility]) 14 ACTUAT fluticasone furoate 0.1 MG/ACT UAT Dry Powder Inhaler fluticasone furoate 100 mcg/actuation blister with device fluticasone furoate 100 mcg/actuation blister with device 01/06/2020 12:00:00 AM EDT 2 { puff} inhalation completed Inhale 2 puffs if n eeded. [facility] Inhale 2 puffs if needed. 14 ACTUAT fluticasone furoate 0.1 MG/ACT UAT Dry Powder Inhaler fluticasone furoate 100 mcg/actuation blister with device fluticasone furoate 100 mcg/actuation blister with device 01/06/2020 12:00:00 AM EDT 2 { puff} inhalation completed Inhale 2 puffs if n eeded. [facility] Inhale 2 puffs if needed. 14 ACTUAT fluticasone furoate 0.1 MG/ACT UAT Dry Powder Inhaler [Arnuity] ARNUITY ELLIPTA 100 MCG/ACT AEPB ARNUITY ELLIPTA 100 MCG/ACT AEPB 01/06/2020 12:00:00 AM EDT active INHALE 1 PUFF BY MOUTH ONCE DAILY [facility] Promethazine Hydrochloride 25 MG Oral Ta blet promethazine (PHENERGAN) 25 MG tablet promethazine (PHENERGAN) 25 MG tablet 12/15/2019 12:00:00 AM EDT aborted TAKE ONE TABLET BY MOUTH EVERY 6 HOURS NEEDED FOR NAUSEA AND VOMITING [facility] Ondansetron 4 MG Disintegrating Oral Tab let ondansetron (ZOFRAN-ODT) 4 MG disintegrating tablet ondansetron (ZOFRAN-ODT) 4 MG disintegrating tablet 12/13/2019 12:00:00 AM EDT active DISSOLVE ONE TABLET ON TONGUE EVERY 6 TO 8 HOURS NEEDED FOR NAUSEA AND VOMITING [facility] Simethicone 180 MG Oral Capsule simethicone (MYLICON,G -X) 180 MG capsule simethicone (MYLICON,GAS-X) 180 MG capsule 12/13/2019 12:00:00 AM EDT 180 mg Oral aborted Take 180 mg by mouth 3 (three) times a day [facility] Baclofen 5 MG Oral Tablet Baclofen 5 MG 12/11/2019 12:00:00 AM EDT 1.0 {tablet_with_food_or_milk} active Baclo fen 5 MG eCW1 ([facility]) Baclofen 5 MG Oral Tablet Baclofen 5 MG 12/11/2019 12:00:00 AM EDT 1.0 {tablet_with_food_or_milk} suspended Samantha lofen 5 MG eCW1 ([facility]) Baclofen 5 MG Oral Tablet Baclofen 5 MG 12/11/2019 12:00:00 AM EDT 1.0 {tablet_with_food_or_milk} suspended Samantha lofen 5 MG eCW1 ([facility]) Baclofen 5 MG Oral Tablet Baclofen 5 MG 12/11/2019 12:00:00 AM EDT 1.0 {tablet_with_food_or_milk} suspended Samantha lofen 5 MG eCW1 ([facility]) Baclofen 5 MG Oral Tablet Baclofen 5 MG 12/11/2019 12:00:00 AM EDT 1.0 {tablet_with_food_or_milk} suspended Samantha lofen 5 MG eCW1 ([facility]) Baclofen 5 MG Oral Tablet Baclofen 5 MG 12/11/2019 12:00:00 AM EDT 1.0 {tablet_with_food_or_milk} suspended Samantha lofen 5 MG eCW1 ([facility]) Baclofen 5 MG Oral Tablet Baclofen 5 MG 12/11/2019 12:00:00 AM EDT 1.0 {tablet_with_food_or_milk} suspended Samantha lofen 5 MG eCW1 ([facility]) Baclofen 5 MG Oral Tablet Baclofen 5 MG 12/11/2019 12:00:00 AM EDT 1.0 {tablet_with_food_or_milk} suspended Samantha lofen 5 MG eCW1 ([facility]) Baclofen 5 MG Oral Tablet Baclofen 5 MG 12/11/2019 12:00:00 AM EDT 1.0 {tablet_with_food_or_milk} suspended Samantha lofen 5 MG eCW1 ([facility]) Baclofen 5 MG Oral Tablet Baclofen 5 MG 12/11/2019 12:00:00 AM EDT 1.0 {tablet_with_food_or_milk} suspended Samantha lofen 5 MG eCW1 ([facility]) Baclofen 5 MG Oral Tablet Baclofen 5 MG 12/11/2019 12:00:00 AM EDT 1.0 {tablet_with_food_or_milk} suspended Samantha lofen 5 MG eCW1 ([facility]) Baclofen 5 MG Oral Tablet Baclofen 5 MG 12/11/2019 12:00:00 AM EDT 1.0 {tablet_with_food_or_milk} active Baclo fen 5 MG eCW1 ([facility]) Baclofen 5 MG Oral Tablet Baclofen 5 MG 12/11/2019 12:00:00 AM EDT 1.0 {tablet_with_food_or_milk} suspended Samantha lofen 5 MG eCW1 ([facility]) Baclofen 5 MG Oral Tablet Baclofen 5 MG 12/11/2019 12:00:00 AM EDT 1.0 {tablet_with_food_or_milk} suspended Samantha lofen 5 MG eCW1 ([facility]) Baclofen 5 MG Oral Tablet Baclofen 5 MG 12/11/2019 12:00:00 AM EDT 1.0 {tablet_with_food_or_milk} suspended Samantha lofen 5 MG eCW1 ([facility]) Baclofen 5 MG Oral Tablet Baclofen 5 MG 12/11/2019 12:00:00 AM EDT 1.0 {tablet_with_food_or_milk} suspended Samantha lofen 5 MG eCW1 ([facility]) Baclofen 5 MG Oral Tablet Baclofen 5 MG 12/11/2019 12:00:00 AM EDT 1.0 {tablet_with_food_or_milk} suspended Samantha lofen 5 MG eCW1 ([facility]) Baclofen 5 MG Oral Tablet Baclofen 5 MG 12/11/2019 12:00:00 AM EDT 1.0 {tablet_with_food_or_milk} suspended eCW1 ([facility]) Baclofen 5 MG Oral Tablet Baclofen 5 MG 12/11/2019 12:00:00 AM EDT 1.0 {tablet_with_food_or_milk} suspended Samantha lofen 5 MG eCW1 ([facility]) Baclofen 5 MG Oral Tablet Baclofen 5 MG 12/11/2019 12:00:00 AM EDT 1.0 {tablet_with_food_or_milk} suspended Samantha lofen 5 MG eCW1 ([facility]) Baclofen 5 MG Oral Tablet Baclofen 5 MG 12/11/2019 12:00:00 AM EDT 1.0 {tablet_with_food_or_milk} suspended Samantha lofen 5 MG eCW1 ([facility]) Baclofen 5 MG Oral Tablet Baclofen 5 MG 12/11/2019 12:00:00 AM EDT 1.0 {tablet_with_food_or_milk} suspended Samantha lofen 5 MG eCW1 ([facility]) Baclofen 5 MG Oral Tablet Baclofen 5 MG 12/11/2019 12:00:00 AM EDT 1.0 {tablet_with_food_or_milk} active Baclo fen 5 MG eCW1 ([facility]) Baclofen 5 MG Oral Tablet Baclofen 5 MG 12/11/2019 12:00:00 AM EDT 1.0 {tablet_with_food_or_milk} suspended Samantha lofen 5 MG eCW1 ([facility]) Baclofen 5 MG Oral Tablet Baclofen 5 MG 12/11/2019 12:00:00 AM EDT 1.0 {tablet_with_food_or_milk} active Baclo fen 5 MG eCW1 ([facility]) Baclofen 5 MG Oral Tablet Baclofen 5 MG 12/11/2019 12:00:00 AM EDT 1.0 {tablet_with_food_or_milk} suspended Samantha lofen 5 MG eCW1 ([facility]) Baclofen 5 MG Oral Tablet Baclofen 5 MG 12/11/2019 12:00:00 AM EDT 1.0 {tablet_with_food_or_milk} suspended Samantha lofen 5 MG eCW1 ([facility]) Baclofen 5 MG Oral Tablet Baclofen 5 MG 12/11/2019 12:00:00 AM EDT 1.0 {tablet_with_food_or_milk} suspended Samantha lofen 5 MG eCW1 ([facility]) Baclofen 5 MG Oral Tablet Baclofen 5 MG 12/11/2019 12:00:00 AM EDT 1.0 {tablet_with_food_or_milk} suspended Samantha lofen 5 MG eCW1 ([facility]) Baclofen 5 MG Oral Tablet Baclofen 5 MG 12/11/2019 12:00:00 AM EDT 1.0 {tablet_with_food_or_milk} suspended Samantha lofen 5 MG eCW1 ([facility]) Baclofen 5 MG Oral Tablet Baclofen 5 MG 12/11/2019 12:00:00 AM EDT 1.0 {tablet_with_food_or_milk} active Baclo fen 5 MG eCW1 ([facility]) Baclofen 5 MG Oral Tablet Baclofen 5 MG 12/11/2019 12:00:00 AM EDT 1.0 {tablet_with_food_or_milk} suspended Samantha lofen 5 MG eCW1 ([facility]) Baclofen 5 MG Oral Tablet Baclofen 5 MG 12/11/2019 12:00:00 AM EDT 1.0 {tablet_with_food_or_milk} suspended Samantha lofen 5 MG eCW1 ([facility]) Baclofen 5 MG Oral Tablet Baclofen 5 MG 12/11/2019 12:00:00 AM EDT 1.0 {tablet_with_food_or_milk} suspended Samantha lofen 5 MG eCW1 ([facility]) Baclofen 5 MG Oral Tablet Baclofen 5 MG 12/11/2019 12:00:00 AM EDT 1.0 {tablet_with_food_or_milk} suspended Samantha lofen 5 MG eCW1 ([facility]) Baclofen 5 MG Oral Tablet Baclofen 5 MG 12/11/2019 12:00:00 AM EDT 1.0 {tablet_with_food_or_milk} suspended Samantha lofen 5 MG eCW1 ([facility]) Baclofen 5 MG Oral Tablet Baclofen 5 MG 12/11/2019 12:00:00 AM EDT 1.0 {tablet_with_food_or_milk} suspended Samantha lofen 5 MG eCW1 ([facility]) Baclofen 5 MG Oral Tablet Baclofen 5 MG 12/11/2019 12:00:00 AM EDT 1.0 {tablet_with_food_or_milk} suspended Samantha lofen 5 MG eCW1 ([facility]) Baclofen 5 MG Oral Tablet Baclofen 5 MG 12/11/2019 12:00:00 AM EDT 1.0 {tablet_with_food_or_milk} active Baclo fen 5 MG eCW1 ([facility]) Baclofen 5 MG Oral Tablet Baclofen 5 MG 12/11/2019 12:00:00 AM EDT 1.0 {tablet_with_food_or_milk} suspended eCW1 ([facility]) Baclofen 5 MG Oral Tablet Baclofen 5 MG 12/11/2019 12:00:00 AM EDT 1.0 {tablet_with_food_or_milk} active Baclo fen 5 MG eCW1 ([facility]) Baclofen 5 MG Oral Tablet Baclofen 5 MG 12/11/2019 12:00:00 AM EDT 1.0 {tablet_with_food_or_milk} suspended Samantha lofen 5 MG eCW1 ([facility]) Baclofen 5 MG Oral Tablet Baclofen 5 MG 12/11/2019 12:00:00 AM EDT 1.0 {tablet_with_food_or_milk} suspended Samantha lofen 5 MG eCW1 ([facility]) Baclofen 5 MG Oral Tablet Baclofen 5 MG 12/11/2019 12:00:00 AM EDT 1.0 {tablet_with_food_or_milk} suspended Samantha lofen 5 MG eCW1 ([facility]) Baclofen 5 MG Oral Tablet Baclofen 5 MG 12/11/2019 12:00:00 AM EDT 1.0 {tablet_with_food_or_milk} suspended Samantha lofen 5 MG eCW1 ([facility]) benztropine mesylate 1 MG Oral Tablet benztropine 11/27/2019 12:00 :00 AM EDT 1 mg by mouth completed <td ID="Me dicationRxNorm_3">[id number]</td><td ID="MedicationMedication_3">benztropine</td><td ID="MedicationRoute_3">by mouth</td><td ID="MedicationRouteConcept_3">V88896</td><td ID="MedicationStartDate_3">11/27/2019</td><td ID="MedicationStopDate_3">12/27/2019</td><td ID="MedicationDosageFrequency_3">every night</td><td ID="MedicationDuration_3">30</td><td ID="MedicationFormulaStrength_3">1 mg</td><td ID="MedicationDosageForm_3">tablet</td><td ID="MedicationDosageFormCode_3"></td><td ID="MedicationDosageDescription_3"></td><td ID="MedicationMedicationId_3">[id number]</td><td ID="MedicationAccount_3">[id number]</td><td ID="MedicationNpid_3">[id number]</td><td ID="MedicationAuthorFirstName_3">Elvie</td><td ID="MedicationAuthorLastName_3">Egorho</td><td ID="MedicationTaxonomyCode_3">[id number]</td><td ID="MedicationTaxonomyDesc_3">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</td><td ID="MedicationPhoneNumber_3">[phone]</td> Accumedic ([facility]) Baclofen 5 MG Oral Tablet Baclofen 5 MG TABS Baclofen 5 MG T ABS 11/03/2019 12:00:00 AM EDT 1 {tbl} Oral aborted Take 1 tablet by mouth 2 (two) times a day [facility] Acetaminophen 500 MG Oral Tablet ACETAMINOPHEN EXTRA S TRENGTH 500 MG tablet ACETAMINOPHEN EXTRA STRENGTH 500 MG tablet 11/03/2019 12:00:00 AM EDT aborted TAKE TWO TABLETS BY MOUTH TWICE DAILY NEEDED FOR PAIN [facility] ramelteon 8 MG Oral Tablet ramelteon 09/16/2019 12:00:00 AM EDT 8 mg completed <td ID="MedicationRx Norm_1">136811</td><td ID="MedicationMedication_1">ramelteon</td><td ID="MedicationRoute_1"></td><td ID="MedicationRouteConcept_1"></td><td ID="MedicationStartDate_1">09/16/2019</td><td ID="MedicationStopDate_1">06/08/2020</td><td ID="MedicationDosageFrequency_1"></td><td ID="MedicationDuration_1"></td><td ID="MedicationFormulaStrength_1">8 mg</td><td ID="MedicationDosageForm_1">tablet</td><td ID="MedicationDosageFormCode_1"></td><td ID="MedicationDosageDescription_1"></td><td ID="MedicationMedicationId_1">[id number]</td><td ID="MedicationAccount_1">[id number]</td><td ID="MedicationNpid_1">[id number]</td><td ID="MedicationAuthorFirstName_1">Elvie</td><td ID="MedicationAuthorLastName_1">Egorho</td><td ID="MedicationTaxonomyCode_1">[id number]</td><td ID="MedicationTaxonomyDesc_1">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</td><td ID="MedicationPhoneNumber_1">[phone]</td> [facility] ([facility]) Furosemide 20 MG Oral Tablet furosemide (LASIX) 20 MG tablet furosemide (LASIX) 20 MG tablet 07/11/2019 12:00:00 AM EDT 20 mg Oral abort ed Take 1 tablet (20 mg total) by mouth daily [facility] atorvastatin 40 MG Oral Tablet atorvastatin (LIPITOR) 40 MG tablet atorvastatin (LIPITOR) 40 MG tablet 07/11/2015 12:00:00 AM EDT Oral aborted Take by mouth [facility] Lisinopril 10 MG Oral Tablet lisinopril 10 mg tablet TAKE ONE TABLET BY MOUTH AT BEDTIME lisinopril 10 mg tablet TAKE ONE TABLET BY MOUTH AT BEDTIME completed lisinopril 10 MG Oral Tablet ADRIA ([facility]) Acetaminophen 500 MG Oral Tablet acetaminophen 500 mg tablet acetaminophen 500 mg tablet completed acetaminophe n 500 MG Oral Tablet [place] ([facility]) tramadol hydrochloride 50 MG Oral Tablet tramadol 50 mg tablet TAKE ONE TABLET BY MOUTH EVERY 8 HOURS NEEDED FOR SEVERE PAIN FOR UP TO FIVE DAYS, MAX DAILY DOSE THREE TABLETS tramadol 50 mg tablet TAKE ONE TABLET BY MOUTH EVERY 8 HOURS NEEDED FOR SEVERE PAIN FOR UP TO FIVE DAYS, MAX DAILY DOSE THREE TABLETS completed tramadol hydrochloride 50 MG Oral Tablet [place] ([facility]) Acetaminophen 325 MG / Oxycodone Hydroch loride 5 MG Oral Tablet oxycodone- acetaminophen 5 mg-325 mg tablet oxycodone-acetaminophen 5 mg-325 mg tablet completed acetaminop hen 325 MG / oxycodone hydrochloride 5 MG Oral Tablet [facility] ([facility]) Promethazine Hydrochloride 25 MG Oral Ta blet promethazine 25 mg tablet TAKE ONE TABLET BY MOUTH EVERY 6 HOURS NEEDED FOR NAUSEA AND FOR VOMITING promethazine 25 mg tablet TAKE ONE TABLET BY MOUTH EVERY 6 HOURS NEEDED FOR NAUSEA AND FOR VOMITING completed p romethazine hydrochloride 25 MG Oral Tablet [place] ([facility]) Fluarix Quad (PF) 60 mcg (15 mcg x 4)/0.5 mL IM syringe [id number] [id number] completed 0.5 ML influen za A virus A/[facility]/[id number] (H1N1) antigen 0.03 MG/ML / influenza A virus A/[place] (H3N2) antigen 0.03 MG/ML / influenza B virus B/[facility] antigen 0.03 MG/ML / influenza B virus B/ antigen 0.03 MG/ML Prefilled Syringe [Fluarix Quadrivalent ] [facility] ([facility]) Sucralfate 1000 MG Oral Tablet sucralfate 1 gram table t sucralfate 1 gram tablet completed sucralfate 1000 MG Oral Tablet [facility] ([facility]) Lisinopril 10 MG Oral Tablet lisinopril 10 mg tablet TAKE ONE TABLET BY MOUTH AT BEDTIME lisinopril 10 mg tablet TAKE ONE TABLET BY MOUTH AT BEDTIME completed lisinopril 10 MG Oral Tablet ATH JOSE [place]UAN ([facility]) Acetaminophen 325 MG / Oxycodone Hydroch loride 7.5 MG Oral Tablet oxycodone- acetaminophen 7.5 mg-325 mg tablet oxycodone-acetaminophen 7.5 mg-325 mg tablet completed acetam inophen 325 MG / oxycodone hydrochloride 7.5 MG Oral Tablet [facility] ([facility]) Acetaminophen 325 MG / Oxycodone Hydroch loride 5 MG Oral Tablet oxycodone- acetaminophen 5 mg-325 mg tablet oxycodone-acetaminophen 5 mg-325 mg tablet completed acetaminop hen 325 MG / oxycodone hydrochloride 5 MG Oral Tablet [facility] ([facility]) Promethazine Hydrochloride 25 MG Oral Ta blet promethazine 25 mg tablet TAKE ONE TABLET BY MOUTH EVERY 6 HOURS NEEDED FOR NAUSEA AND FOR VOMITING promethazine 25 mg tablet TAKE ONE TABLET BY MOUTH EVERY 6 HOURS NEEDED FOR NAUSEA AND FOR VOMITING completed promethazine hydrochloride 25 MG Oral Tablet [facility] ([facility]) Meclizine Hydrochloride 25 MG Oral Table t meclizine 25 mg tablet take one tablet by mouth twice daily meclizine 25 mg tablet take one tablet b y mouth twice daily completed meclizine hydroc hloride 25 MG Oral Tablet [facility] ([facility]) pantoprazole 40 MG Delayed Release Oral Tablet pantoprazole 40 mg tablet,delayed release pantoprazole 40 mg tablet,delayed release completed pantoprazole 40 MG Delayed Release Oral Tablet [facility] ([facility]) Meclizine Hydrochloride 25 MG Oral Table t meclizine 25 mg tablet take one tablet by mouth twice daily meclizine 25 mg tablet take one tablet b y mouth twice daily completed meclizine hydroc hloride 25 MG Oral Tablet [facility] ([facility]) Fluarix Quad [id number] (PF) 60 mcg (15 mcg x 4)/0.5 mL IM syringe [id number] [id number] completed 0.5 ML influen za A virus A/[facility]/[id number] (H1N1) antigen 0.03 MG/ML / influenza A virus A/[place]/2671/2019 (H3N2) antigen 0.03 MG/ML / influenza B virus B/[facility] antigen 0.03 MG/ML / influenza B virus B/ antigen 0.03 MG/ML Prefilled Syringe [Fluarix Quadrivalent ] [facility] ([facility]) Ondansetron 4 MG Disintegrating Oral Tab let ondansetron 4 mg disintegrating tablet DISSOLVE ONE TABLET BY MOUTH EVERY 8 HOURS NEEDED FOR NAUSEA AND VOMITING FOR UP TO SEVEN DAYS ondansetron 4 mg disintegrating tablet D ISSOLVE ONE TABLET BY MOUTH EVERY 8 HOURS NEEDED FOR NAUSEA AND VOMITING FOR UP TO SEVEN DAYS completed ond ansetron 4 MG Disintegrating Oral Tablet [facility] ([facility]) Baclofen 5 MG Oral Tablet baclofen 5 mg tablet TAKE ONE TABLET BY MOUTH THREE TIMES DAILY WITH FOOD OR MILK baclofen 5 mg tablet TAKE ONE TABLET BY MOUTH THREE TIMES DAILY WITH FOOD OR MILK co mpleted baclofen 5 MG Oral Tablet [facility] ([facility]) Sulfamethoxazole 800 MG / Trimethoprim 1 60 MG Oral Tablet sulfamethoxazole 800 mg-trimethoprim 160 mg tablet sulfamethoxazole 800 mg-trimethoprim 160 mg tablet completed sulfame thoxazole 800 MG / trimethoprim 160 MG Oral Tablet [facility] ([facility]) zaleplon 5 MG Oral Capsule zaleplon 5 mg capsule TAKE ONE CAPSULE BY MOUTH AT BEDTIME zaleplon 5 mg capsule TAKE ONE CAPSULE BY MOUTH AT BEDTIME completed zaleplon 5 MG Oral Capsule ATHEN A ([facility]) zaleplon 5 MG Oral Capsule zaleplon 5 mg capsule TAKE ONE CAPSULE BY MOUTH AT BEDTIME zaleplon 5 mg capsule TAKE ONE CAPSULE BY MOUTH AT BEDTIME completed zaleplon 5 MG Oral Capsule ATHEN A ([facility]) Fluarix Quad (PF) 60 mcg (15 mcg x 4)/0.5 mL IM syringe 603 182 completed 0.5 ML influen za A virus A/[facility]/[id number] (H1N1) antigen 0.03 MG/ML / influenza A virus A/ (H3N2) antigen 0.03 MG/ML / influenza B virus B/[facility] antigen 0.03 MG/ML / influenza B virus B/ antigen 0.03 MG/ML Prefilled Syringe [Fluarix Quadrivalent ] [place] ([facility]) NITROFURANTOIN, MACROCRYSTALS 25 MG / Ni trofurantoin, Monohydrate 75 MG Oral Capsule nitrofurantoin monohydrate/macrocrystals 100 mg capsule nitrofurantoin monohydrate/macrocrystals 100 mg capsule completed nitrofurantoin, macrocrystals 25 MG / nitrofurantoin, monohydrate 75 MG Oral Capsule [facility] ([facility]) Metoprolol Tartrate 25 MG Oral Tablet me toprolol tartrate 25 mg tablet TAKE ONE TABLET BY MOUTH TWICE DAILY metoprolol tartrate 25 mg tablet TAKE ON E TABLET BY MOUTH TWICE DAILY completed metoprolol tartrate 25 MG Oral Tablet [place] ([facility]) benztropine mesylate 1 MG Oral Tablet benztropine 1 mg tablet benztropine 1 mg tablet completed benztropine mes ylate 1 MG Oral Tablet [place] ([facility]) Acetaminophen 325 MG / Oxycodone Hydroch loride 7.5 MG Oral Tablet oxycodone- acetaminophen 7.5 mg-325 mg tablet oxycodone-acetaminophen 7.5 mg-325 mg tablet completed acetam inophen 325 MG / oxycodone hydrochloride 7.5 MG Oral Tablet [place] ([facility]) Fluarix Quad (PF) 60 mcg (15 mcg x 4)/0.5 mL IM syringe 603 182 completed 0.5 ML influen za A virus A/[facility]/[id number] (H1N1) antigen 0.03 MG/ML / influenza A virus A/[place] (H3N2) antigen 0.03 MG/ML / influenza B virus B/[facility] antigen 0.03 MG/ML / influenza B virus B/ antigen 0.03 MG/ML Prefilled Syringe [Fluarix Quadrivalent ] [place] ([facility]) Metoprolol Tartrate 25 MG Oral Tablet me toprolol tartrate 25 mg tablet TAKE ONE TABLET BY MOUTH TWICE DAILY metoprolol tartrate 25 mg tablet TAKE ON E TABLET BY MOUTH TWICE DAILY completed metoprolol tartrate 25 MG Oral Tablet [place] ([facility]) Sulfamethoxazole 800 MG / Trimethoprim 1 60 MG Oral Tablet sulfamethoxazole 800 mg-trimethoprim 160 mg tablet sulfamethoxazole 800 mg-trimethoprim 160 mg tablet completed sulfame thoxazole 800 MG / trimethoprim 160 MG Oral Tablet [place] ([facility]) Nystatin 100 UNT/MG Topical Powder [Nyam ] Nyamyc 100,000 unit/gram topical powder apply topically TO affected area(s) TWICE DAILY DIRECTED Nyamyc 100,000 unit/gram topical powder apply topically TO affected area(s) TWICE DAILY DIRECTED completed n ystatin 100 UNT/MG Topical Powder [Nyamyc] [place] ([facility]) Belbuca 75 mcg buccal film APPLY ONE TEODORO M TO GUMS ONCE DAILY FOR PAIN MAX DAILY DOSE ONE FILM [id number] completed b uprenorphine 0.075 MG Buccal Film [Belbuca] [place] ([facility]) NITROFURANTOIN, MACROCRYSTALS 25 MG / Ni trofurantoin, Monohydrate 75 MG Oral Capsule nitrofurantoin monohydrate/macrocrystals 100 mg capsule nitrofurantoin monohydrate/macrocrystals 100 mg capsule completed nitrofurantoin, macrocrystals 25 MG / nitrofurantoin, monohydrate 75 MG Oral Capsule [place] ([facility]) Belbuca 75 mcg buccal film APPLY ONE TEODORO M TO GUMS ONCE DAILY FOR PAIN MAX DAILY DOSE ONE FILM [id number] completed b uprenorphine 0.075 MG Buccal Film [Belbuca] [place] ([facility]) gabapentin 300 MG Oral Capsule gabapenti n 300 mg capsule TAKE TWO CAPSULES BY MOUTH TWICE DAILY gabapentin 300 mg capsule TAKE TWO CAPSU LES BY MOUTH TWICE DAILY completed gabapentin 300 M G Oral Capsule [place] ([facility]) Lisinopril 10 MG Oral Tablet lisinopril 10 mg tablet TAKE ONE TABLET BY MOUTH AT BEDTIME lisinopril 10 mg tablet TAKE ONE TABLET BY MOUTH AT BEDTIME completed lisinopril 10 MG Oral Tablet [place] ([facility]) benztropine mesylate 1 MG Oral Tablet benztropine 1 mg tablet benztropine 1 mg tablet completed benztropine mes ylate 1 MG Oral Tablet [facility] ([facility]) pantoprazole 40 MG Delayed Release Oral Tablet pantoprazole 40 mg tablet,delayed release pantoprazole 40 mg tablet,delayed release completed pantoprazole 40 MG Delayed Release Oral Tablet [facility] ([facility]) Acetaminophen 325 MG / Oxycodone Hydroch loride 5 MG Oral Tablet oxycodone- acetaminophen 5 mg-325 mg tablet oxycodone-acetaminophen 5 mg-325 mg tablet completed acetaminop hen 325 MG / oxycodone hydrochloride 5 MG Oral Tablet [facility] ([facility]) Lisinopril 10 MG Oral Tablet lisinopril 10 mg tablet TAKE ONE TABLET BY MOUTH AT BEDTIME lisinopril 10 mg tablet TAKE ONE TABLET BY MOUTH AT BEDTIME completed lisinopril 10 MG Oral Tablet [place] ([facility]) Meclizine Hydrochloride 25 MG Oral Table t meclizine 25 mg tablet take one tablet by mouth twice daily meclizine 25 mg tablet take one tablet b y mouth twice daily completed meclizine hydroc hloride 25 MG Oral Tablet [place] ([facility]) Baclofen 5 MG Oral Tablet baclofen 5 mg tablet TAKE ONE TABLET BY MOUTH THREE TIMES DAILY WITH FOOD OR MILK baclofen 5 mg tablet TAKE ONE TABLET BY MOUTH THREE TIMES DAILY WITH FOOD OR MILK co mpleted baclofen 5 MG Oral Tablet [place] ([facility]) Acetaminophen 325 MG / Oxycodone Hydroch loride 7.5 MG Oral Tablet oxycodone- acetaminophen 7.5 mg-325 mg tablet oxycodone-acetaminophen 7.5 mg-325 mg tablet completed acetam inophen 325 MG / oxycodone hydrochloride 7.5 MG Oral Tablet [facility] ([facility]) 168 HR Buprenorphine 0.02 MG/HR Transder mal Patch buprenorphine 20 mcg/hour weekly transdermal patch APPLY ONE PATCH TO SKIN EVERY 7 DAYS MAX DAILY DOSE ONE PATCH PER SEVEN DAYS buprenorphine 20 mcg/hour weekly transde rmal patch APPLY ONE PATCH TO SKIN EVERY 7 DAYS MAX DAILY DOSE ONE PATCH PER SEVEN DAYS completed 168 HR buprenorphine 0.02 MG/HR Transdermal System [place] ([facility]) Nystatin 100 UNT/MG Topical Powder [Nyam yc] Nyamyc 100,000 unit/gram topical powder apply topically TO affected area(s) TWICE DAILY DIRECTED Nyamyc 100,000 unit/gram topical powder apply topically TO affected area(s) TWICE DAILY DIRECTED completed n ystatin 100 UNT/MG Topical Powder [[facility]] [place] ([facility]) pantoprazole 40 MG Delayed Release Oral Tablet pantoprazole 40 mg tablet,delayed release pantoprazole 40 mg tablet,delayed release completed pantoprazole 40 MG Delayed Release Oral Tablet [place] ([facility]) Diazepam 5 MG Oral Tablet diazepam 5 mg tablet TAKE ONE TABLET BY MOUTH ONE-HALF HOUR PRIOR TO MRI MAY REPEAT IN 30 MINUTES if no effect MAX DAILY DOSE TWO TABLETS diazepam 5 mg tablet TAKE ONE TABLET BY MOUTH ONE-HALF HOUR PRIOR TO MRI MAY REPEAT IN 30 MINUTES if no effect MAX DAILY DOSE TWO TABLETS completed diazepam 5 MG Oral Tablet [place] ([facility]) Belbuca 75 mcg buccal film APPLY ONE TEODORO M TO GUMS ONCE DAILY MAX DAILY DOSE ONE FILM [id number] completed buprenorp giovanny 0.075 MG Buccal Film [Belbuca] [place] ([facility]) Diazepam 5 MG Oral Tablet diazepam 5 mg tablet TAKE ONE TABLET BY MOUTH ONE-HALF HOUR PRIOR TO MRI MAY REPEAT IN 30 MINUTES if no effect MAX DAILY DOSE TWO TABLETS diazepam 5 mg tablet TAKE ONE TABLET BY MOUTH ONE-HALF HOUR PRIOR TO MRI MAY REPEAT IN 30 MINUTES if no effect MAX DAILY DOSE TWO TABLETS completed diazepam 5 MG Oral Tablet [place] ([facility]) Lisinopril 10 MG Oral Tablet lisinopril 10 mg tablet TAKE ONE TABLET BY MOUTH AT BEDTIME lisinopril 10 mg tablet TAKE ONE TABLET BY MOUTH AT BEDTIME completed lisinopril 10 MG Oral Tablet [place] ([facility]) Carisoprodol 350 MG Oral Tablet carisopr odol 350 mg tablet TAKE ONE TABLET BY MOUTH ONCE DAILY NEEDED MAX DAILY DOSE ONE TABLET carisoprodol 350 mg tablet TAKE ONE TABLET BY MOUTH ONCE DAILY NEEDED MAX DAILY DOSE ONE TABLET completed carisoprodol 350 MG Oral Tablet [place] ([facility]) Meclizine Hydrochloride 25 MG Oral Table t meclizine 25 mg tablet take one tablet by mouth twice daily meclizine 25 mg tablet take one tablet b y mouth twice daily completed meclizine hydroc hloride 25 MG Oral Tablet [place] ([facility]) NITROFURANTOIN, MACROCRYSTALS 25 MG / Ni trofurantoin, Monohydrate 75 MG Oral Capsule nitrofurantoin monohydrate/macrocrystals 100 mg capsule nitrofurantoin monohydrate/macrocrystals 100 mg capsule completed nitrofurantoin, macrocrystals 25 MG / nitrofurantoin, monohydrate 75 MG Oral Capsule [facility] ([facility]) Metoprolol Tartrate 25 MG Oral Tablet me toprolol tartrate 25 mg tablet TAKE ONE TABLET BY MOUTH TWICE DAILY metoprolol tartrate 25 mg tablet TAKE ON E TABLET BY MOUTH TWICE DAILY completed metoprolol tartrate 25 MG Oral Tablet [facility] ([facility]) Baclofen 5 MG Oral Tablet baclofen 5 mg tablet TAKE ONE TABLET BY MOUTH THREE TIMES DAILY WITH FOOD OR MILK baclofen 5 mg tablet TAKE ONE TABLET BY MOUTH THREE TIMES DAILY WITH FOOD OR MILK co mpleted baclofen 5 MG Oral Tablet [facility] ([facility]) zaleplon 5 MG Oral Capsule zaleplon 5 mg capsule TAKE ONE CAPSULE BY MOUTH AT BEDTIME zaleplon 5 mg capsule TAKE ONE CAPSULE BY MOUTH AT BEDTIME completed zaleplon 5 MG Oral Capsule [facility] ([facility]) zaleplon 5 MG Oral Capsule zaleplon 5 mg capsule TAKE ONE CAPSULE BY MOUTH AT BEDTIME zaleplon 5 mg capsule TAKE ONE CAPSULE BY MOUTH AT BEDTIME completed zaleplon 5 MG Oral Capsule [facility] ([facility]) Metoprolol Tartrate 25 MG Oral Tablet me toprolol tartrate 25 mg tablet TAKE ONE TABLET BY MOUTH TWICE DAILY metoprolol tartrate 25 mg tablet TAKE ON E TABLET BY MOUTH TWICE DAILY completed metoprolol tartrate 25 MG Oral Tablet [facility] ([facility]) Acetaminophen 500 MG Oral Tablet acetaminophen 500 mg tablet acetaminophen 500 mg tablet completed acetaminophe n 500 MG Oral Tablet [facility] ([facility]) Acetaminophen 500 MG Oral Tablet acetaminophen 500 mg tablet acetaminophen 500 mg tablet completed acetaminophe n 500 MG Oral Tablet [facility] ([facility]) Acetaminophen 325 MG / Oxycodone Hydroch loride 5 MG Oral Tablet oxycodone- acetaminophen 5 mg-325 mg tablet oxycodone-acetaminophen 5 mg-325 mg tablet completed acetaminop hen 325 MG / oxycodone hydrochloride 5 MG Oral Tablet [facility] ([facility]) Tolnaftate 10 MG/ML Topical Cream tolnaf barlow 1 % topical cream APPLY TO THE AFFECTED AREA(S) TWICE DAILY tolnaftate 1 % topical cream APPLY TO TH E AFFECTED AREA(S) TWICE DAILY completed to lnaftate 10 MG/ML Topical Cream [facility] ([facility]) Meclizine Hydrochloride 25 MG Oral Table t meclizine 25 mg tablet take one tablet by mouth twice daily meclizine 25 mg tablet take one tablet b y mouth twice daily completed meclizine hydroc hloride 25 MG Oral Tablet [facility] ([facility]) Sucralfate 1000 MG Oral Tablet sucralfate 1 gram table t sucralfate 1 gram tablet completed sucralfate 1000 MG Oral Tablet [facility] ([facility]) Acetaminophen 325 MG / Oxycodone Hydroch loride 7.5 MG Oral Tablet oxycodone- acetaminophen 7.5 mg-325 mg tablet oxycodone-acetaminophen 7.5 mg-325 mg tablet completed acetam inophen 325 MG / oxycodone hydrochloride 7.5 MG Oral Tablet [facility] ([facility]) Acetaminophen 500 MG Oral Tablet acetaminophen 500 mg tablet acetaminophen 500 mg tablet completed acetaminophe n 500 MG Oral Tablet [facility] ([facility]) benztropine mesylate 1 MG Oral Tablet benztropine 1 mg tablet benztropine 1 mg tablet completed benztropine mes ylate 1 MG Oral Tablet [facility] ([facility]) gabapentin 300 MG Oral Capsule gabapenti n 300 mg capsule TAKE TWO CAPSULES BY MOUTH TWICE DAILY gabapentin 300 mg capsule TAKE TWO CAPSU LES BY MOUTH TWICE DAILY completed gabapentin 300 M G Oral Capsule [facility] ([facility]) Sulfamethoxazole 800 MG / Trimethoprim 1 60 MG Oral Tablet sulfamethoxazole 800 mg-trimethoprim 160 mg tablet sulfamethoxazole 800 mg-trimethoprim 160 mg tablet completed sulfame thoxazole 800 MG / trimethoprim 160 MG Oral Tablet [facility] ([facility]) Furosemide 20 MG Oral Tablet furosemide 20 mg tablet furosemide 20 mg tablet completed furosemide 20 MG Oral Tablet [facility] ([facility]) Sulfamethoxazole 800 MG / Trimethoprim 1 60 MG Oral Tablet sulfamethoxazole 800 mg-trimethoprim 160 mg tablet sulfamethoxazole 800 mg-trimethoprim 160 mg tablet completed sulfame thoxazole 800 MG / trimethoprim 160 MG Oral Tablet [facility] ([facility]) Tolnaftate 10 MG/ML Topical Cream tolnaf barlow 1 % topical cream APPLY TO THE AFFECTED AREA(S) TWICE DAILY tolnaftate 1 % topical cream APPLY TO TH E AFFECTED AREA(S) TWICE DAILY completed to lnaftate 10 MG/ML Topical Cream [facility] ([facility]) gabapentin 300 MG Oral Capsule gabapenti n 300 mg capsule TAKE TWO CAPSULES BY MOUTH TWICE DAILY gabapentin 300 mg capsule TAKE TWO CAPSU LES BY MOUTH TWICE DAILY completed gabapentin 300 M G Oral Capsule [facility] ([facility]) Ciprofloxacin 500 MG Oral Tablet ciprofl oxacin 500 mg tablet TAKE ONE TABLET BY MOUTH TWICE DAILY FOR 10 DAYS ciprofloxacin 500 mg tablet TAKE ONE TAB LET BY MOUTH TWICE DAILY FOR 10 DAYS complete d ciprofloxacin 500 MG Oral Tablet [place] ([facility]) Nystatin 100 UNT/MG Topical Powder [Nyam yc] Nyamyc 100,000 unit/gram topical powder apply topically TO affected area(s) TWICE DAILY DIRECTED Nyamyc 100,000 unit/gram topical powder apply topically TO affected area(s) TWICE DAILY DIRECTED completed n ystatin 100 UNT/MG Topical Powder [Nyamyc] [place] ([facility]) Sulfamethoxazole 800 MG / Trimethoprim 1 60 MG Oral Tablet sulfamethoxazole 800 mg-trimethoprim 160 mg tablet sulfamethoxazole 800 mg-trimethoprim 160 mg tablet completed sulfame thoxazole 800 MG / trimethoprim 160 MG Oral Tablet [facility] ([facility]) Belbuca 150 mcg buccal film DISSOLVE ONE FILM ON GUM ONCE DAILY [id number] completed buprenorphine 0.15 MG [place] Film [Belbuca] [place] ([facility]) Acetaminophen 500 MG Oral Tablet acetaminophen 500 mg tablet acetaminophen 500 mg tablet completed acetaminophe n 500 MG Oral Tablet [facility] ([facility]) NITROFURANTOIN, MACROCRYSTALS 25 MG / Ni trofurantoin, Monohydrate 75 MG Oral Capsule nitrofurantoin monohydrate/macrocrystals 100 mg capsule nitrofurantoin monohydrate/macrocrystals 100 mg capsule completed nitrofurantoin, macrocrystals 25 MG / nitrofurantoin, monohydrate 75 MG Oral Capsule [facility] ([facility]) Acetaminophen 325 MG / Oxycodone Hydroch loride 7.5 MG Oral Tablet oxycodone- acetaminophen 7.5 mg-325 mg tablet oxycodone-acetaminophen 7.5 mg-325 mg tablet completed acetam inophen 325 MG / oxycodone hydrochloride 7.5 MG Oral Tablet [place] ([facility]) Simethicone 180 MG Oral Capsule simethic one 180 mg capsule TAKE ONE CAPSULE BY MOUTH THREE TIMES DAILY simethicone 180 mg capsule TAKE ONE CAPS ULE BY MOUTH THREE TIMES DAILY completed merline thicone 180 MG Oral Capsule [place] ([facility]) Lisinopril 10 MG Oral Tablet lisinopril 10 mg tablet TAKE ONE TABLET BY MOUTH AT BEDTIME lisinopril 10 mg tablet TAKE ONE TABLET BY MOUTH AT BEDTIME completed lisinopril 10 MG Oral Tablet [place] ([facility]) Promethazine Hydrochloride 25 MG Oral Ta blet promethazine 25 mg tablet TAKE ONE TABLET BY MOUTH EVERY 6 HOURS NEEDED FOR NAUSEA AND FOR VOMITING promethazine 25 mg tablet TAKE ONE TABLET BY MOUTH EVERY 6 HOURS NEEDED FOR NAUSEA AND FOR VOMITING completed p romethazine hydrochloride 25 MG Oral Tablet [place] ([facility]) Fluarix Quad [id number] (PF) 60 mcg (15 mcg x 4)/0.5 mL IM syringe [id number] completed Fluarix Quad 2 -2020 (PF) 60 mcg (15 mcg x 4)/0.5 mL IM syringe [place] ([facility]) Ciprofloxacin 500 MG Oral Tablet ciprofl oxacin 500 mg tablet TAKE ONE TABLET BY MOUTH TWICE DAILY FOR 10 DAYS ciprofloxacin 500 mg tablet TAKE ONE TAB LET BY MOUTH TWICE DAILY FOR 10 DAYS complete d ciprofloxacin 500 MG Oral Tablet [place] ([facility]) Belbuca 150 mcg buccal film DISSOLVE ONE FILM ON GUM ONCE DAILY [id number] completed buprenorphine 0.15 MG [place] Film [Belbuca] [place] ([facility]) pantoprazole 40 MG Delayed Release Oral Tablet pantoprazole 40 mg tablet,delayed release pantoprazole 40 mg tablet,delayed release completed pantoprazole 40 MG Delayed Release Oral Tablet [place] ([facility]) Metoprolol Tartrate 25 MG Oral Tablet me toprolol tartrate 25 mg tablet TAKE ONE TABLET BY MOUTH TWICE DAILY metoprolol tartrate 25 mg tablet TAKE ON E TABLET BY MOUTH TWICE DAILY completed metoprolol tartrate 25 MG Oral Tablet [facility] ([facility]) 168 HR Buprenorphine 0.01 MG/HR Transder mal Patch buprenorphine 10 mcg/hour weekly transdermal patch APPLY TWO PATCHes TOPICALY EVERY 7 DAYS, MAX DAILY DOSE TWO PATCH EVERY 7 DAYS buprenorphine 10 mcg/hour weekly transde rmal patch APPLY TWO PATCHes TOPICALY EVERY 7 DAYS, MAX DAILY DOSE TWO PATCH EVERY 7 DAYS completed 168 HR buprenorphine 0.01 MG/HR Transdermal System [facility] ([facility]) Metoprolol Tartrate 25 MG Oral Tablet me toprolol tartrate 25 mg tablet TAKE ONE TABLET BY MOUTH TWICE DAILY metoprolol tartrate 25 mg tablet TAKE ON E TABLET BY MOUTH TWICE DAILY completed metoprolol tartrate 25 MG Oral Tablet [place] ([facility]) Promethazine Hydrochloride 25 MG Oral Ta blet promethazine 25 mg tablet TAKE ONE TABLET BY MOUTH EVERY 6 HOURS NEEDED FOR NAUSEA AND FOR VOMITING promethazine 25 mg tablet TAKE ONE TABLET BY MOUTH EVERY 6 HOURS NEEDED FOR NAUSEA AND FOR VOMITING completed p romethazine hydrochloride 25 MG Oral Tablet [facility] ([facility]) Acetaminophen 325 MG / Oxycodone Hydroch loride 7.5 MG Oral Tablet oxycodone- acetaminophen 7.5 mg-325 mg tablet oxycodone-acetaminophen 7.5 mg-325 mg tablet completed acetam inophen 325 MG / oxycodone hydrochloride 7.5 MG Oral Tablet [facility] ([facility]) Lisinopril 10 MG Oral Tablet lisinopril 10 mg tablet TAKE ONE TABLET BY MOUTH AT BEDTIME lisinopril 10 mg tablet TAKE ONE TABLET BY MOUTH AT BEDTIME completed lisinopril 10 MG Oral Tablet [facility] ([facility]) Nystatin 100 UNT/MG Topical Powder [Nyam yc] Nyamyc 100,000 unit/gram topical powder apply topically TO affected area(s) TWICE DAILY DIRECTED Nyamyc 100,000 unit/gram topical powder apply topically TO affected area(s) TWICE DAILY DIRECTED completed n ystatin 100 UNT/MG Topical Powder [Nyamyc] [place] ([facility]) Carisoprodol 350 MG Oral Tablet carisopr odol 350 mg tablet TAKE ONE TABLET BY MOUTH ONCE DAILY NEEDED MAX DAILY DOSE ONE TABLET carisoprodol 350 mg tablet TAKE ONE TABLET BY MOUTH ONCE DAILY NEEDED MAX DAILY DOSE ONE TABLET completed carisoprodol 350 MG Oral Tablet [facility] ([facility]) Baclofen 5 MG Oral Tablet baclofen 5 mg tablet TAKE ONE TABLET BY MOUTH THREE TIMES DAILY WITH FOOD OR MILK baclofen 5 mg tablet TAKE ONE TABLET BY MOUTH THREE TIMES DAILY WITH FOOD OR MILK co mpleted baclofen 5 MG Oral Tablet [facility] ([facility]) Acetaminophen 325 MG / Oxycodone Hydroch loride 5 MG Oral Tablet oxycodone- acetaminophen 5 mg-325 mg tablet oxycodone-acetaminophen 5 mg-325 mg tablet completed acetaminop hen 325 MG / oxycodone hydrochloride 5 MG Oral Tablet [facility] ([facility]) Simethicone 180 MG Oral Capsule simethic one 180 mg capsule TAKE ONE CAPSULE BY MOUTH THREE TIMES DAILY simethicone 180 mg capsule TAKE ONE CAPS ULE BY MOUTH THREE TIMES DAILY completed merline thicone 180 MG Oral Capsule [place] ([facility]) Sulfamethoxazole 800 MG / Trimethoprim 1 60 MG Oral Tablet sulfamethoxazole 800 mg-trimethoprim 160 mg tablet sulfamethoxazole 800 mg-trimethoprim 160 mg tablet completed sulfame thoxazole 800 MG / trimethoprim 160 MG Oral Tablet [facility] ([facility]) Acetaminophen 325 MG / Oxycodone Hydroch loride 7.5 MG Oral Tablet oxycodone- acetaminophen 7.5 mg-325 mg tablet oxycodone-acetaminophen 7.5 mg-325 mg tablet completed acetam inophen 325 MG / oxycodone hydrochloride 7.5 MG Oral Tablet [place] ([facility]) Lurasidone Hydrochloride 20 MG Oral Tabl et [Latuda] Latuda 20 mg tablet TAKE ONE TABLET BY MOUTH EVERY EVENING Latuda 20 mg tablet TAKE ONE TABLET BY M OUTH EVERY EVENING completed lurasidone hydrochloride 20 MG Oral Tablet [Latuda] [facility] ([facility]) 168 HR Buprenorphine 0.01 MG/HR Transder mal Patch buprenorphine 10 mcg/hour weekly transdermal patch APPLY TWO PATCHes TOPICALY EVERY 7 DAYS, MAX DAILY DOSE TWO PATCH EVERY 7 DAYS buprenorphine 10 mcg/hour weekly transde rmal patch APPLY TWO PATCHes TOPICALY EVERY 7 DAYS, MAX DAILY DOSE TWO PATCH EVERY 7 DAYS completed 168 HR buprenorphine 0.01 MG/HR Transdermal System [place] ([facility]) Baclofen 5 MG Oral Tablet baclofen 5 mg tablet TAKE ONE TABLET BY MOUTH THREE TIMES DAILY WITH FOOD OR MILK baclofen 5 mg tablet TAKE ONE TABLET BY MOUTH THREE TIMES DAILY WITH FOOD OR MILK co mpleted baclofen 5 MG Oral Tablet [place] ([facility]) Metoprolol Tartrate 25 MG Oral Tablet me toprolol tartrate 25 mg tablet TAKE ONE TABLET BY MOUTH TWICE DAILY metoprolol tartrate 25 mg tablet TAKE ON E TABLET BY MOUTH TWICE DAILY completed metoprolol tartrate 25 MG Oral Tablet [place] ([facility]) 168 HR Buprenorphine 0.01 MG/HR Transder mal Patch buprenorphine 10 mcg/hour weekly transdermal patch APPLY TWO PATCHes TOPICALY EVERY 7 DAYS, MAX DAILY DOSE TWO PATCH EVERY 7 DAYS buprenorphine 10 mcg/hour weekly transde rmal patch APPLY TWO PATCHes TOPICALY EVERY 7 DAYS, MAX DAILY DOSE TWO PATCH EVERY 7 DAYS completed 168 HR buprenorphine 0.01 MG/HR Transdermal System [place] ([facility]) Nystatin 100 UNT/MG Topical Powder [Nyam yc] Nyamyc 100,000 unit/gram topical powder apply topically TO affected area(s) TWICE DAILY DIRECTED Nyamyc 100,000 unit/gram topical powder apply topically TO affected area(s) TWICE DAILY DIRECTED completed n ystatin 100 UNT/MG Topical Powder [Nyamyc] [place] ([facility]) Carisoprodol 350 MG Oral Tablet carisopr odol 350 mg tablet TAKE ONE TABLET BY MOUTH ONCE DAILY NEEDED MAX DAILY DOSE ONE TABLET carisoprodol 350 mg tablet TAKE ONE TABLET BY MOUTH ONCE DAILY NEEDED MAX DAILY DOSE ONE TABLET completed carisoprodol 350 MG Oral Tablet [place] ([facility]) Baclofen 5 MG Oral Tablet baclofen 5 mg tablet TAKE ONE TABLET BY MOUTH THREE TIMES DAILY WITH FOOD OR MILK baclofen 5 mg tablet TAKE ONE TABLET BY MOUTH THREE TIMES DAILY WITH FOOD OR MILK co mpleted baclofen 5 MG Oral Tablet [place] ([facility]) Meclizine Hydrochloride 25 MG Oral Table t meclizine 25 mg tablet take one tablet by mouth twice daily meclizine 25 mg tablet take one tablet b y mouth twice daily completed meclizine hydroc hloride 25 MG Oral Tablet [facility] ([facility]) Furosemide 20 MG Oral Tablet furosemide 20 mg tablet furosemide 20 mg tablet completed furosemide 20 MG Oral Tablet [place] ([facility]) Acetaminophen 325 MG / Oxycodone Hydroch loride 5 MG Oral Tablet oxycodone- acetaminophen 5 mg-325 mg tablet oxycodone-acetaminophen 5 mg-325 mg tablet completed acetaminop hen 325 MG / oxycodone hydrochloride 5 MG Oral Tablet [facility] ([facility]) Acetaminophen 325 MG / Oxycodone Hydroch loride 5 MG Oral Tablet oxycodone- acetaminophen 5 mg-325 mg tablet oxycodone-acetaminophen 5 mg-325 mg tablet completed acetaminop hen 325 MG / oxycodone hydrochloride 5 MG Oral Tablet [place] ([facility]) tramadol hydrochloride 50 MG Oral Tablet tramadol 50 mg tablet TAKE ONE TABLET BY MOUTH EVERY 8 HOURS NEEDED FOR SEVERE PAIN FOR UP TO FIVE DAYS, MAX DAILY DOSE THREE TABLETS tramadol 50 mg tablet TAKE ONE TABLET BY MOUTH EVERY 8 HOURS NEEDED FOR SEVERE PAIN FOR UP TO FIVE DAYS, MAX DAILY DOSE THREE TABLETS completed tramadol hydrochloride 50 MG Oral Tablet [place] ([facility]) Diazepam 5 MG Oral Tablet diazepam 5 mg tablet TAKE ONE TABLET BY MOUTH ONE-HALF HOUR PRIOR TO MRI MAY REPEAT IN 30 MINUTES if no effect MAX DAILY DOSE TWO TABLETS diazepam 5 mg tablet TAKE ONE TABLET BY MOUTH ONE-HALF HOUR PRIOR TO MRI MAY REPEAT IN 30 MINUTES if no effect MAX DAILY DOSE TWO TABLETS completed diazepam 5 MG Oral Tablet [place] ([facility]) Diazepam 5 MG Oral Tablet diazepam 5 mg tablet TAKE ONE TABLET BY MOUTH ONE-HALF HOUR PRIOR TO MRI MAY REPEAT IN 30 MINUTES if no effect MAX DAILY DOSE TWO TABLETS diazepam 5 mg tablet TAKE ONE TABLET BY MOUTH ONE-HALF HOUR PRIOR TO MRI MAY REPEAT IN 30 MINUTES if no effect MAX DAILY DOSE TWO TABLETS completed diazepam 5 MG Oral Tablet [place] ([facility]) benztropine mesylate 1 MG Oral Tablet benztropine 1 mg tablet benztropine 1 mg tablet completed benztropine mes ylate 1 MG Oral Tablet [place] ([facility]) Belbuca 150 mcg buccal film DISSOLVE ONE FILM ON GUM ONCE DAILY [id number] completed buprenorphine 0.15 MG [place] Film [Belbuca] [place] ([facility]) NITROFURANTOIN, MACROCRYSTALS 25 MG / Ni trofurantoin, Monohydrate 75 MG Oral Capsule nitrofurantoin monohydrate/macrocrystals 100 mg capsule nitrofurantoin monohydrate/macrocrystals 100 mg capsule completed nitrofurantoin, macrocrystals 25 MG / nitrofurantoin, monohydrate 75 MG Oral Capsule [facility] ([facility]) tramadol hydrochloride 50 MG Oral Tablet tramadol 50 mg tablet TAKE ONE TABLET BY MOUTH EVERY 8 HOURS NEEDED FOR SEVERE PAIN FOR UP TO FIVE DAYS, MAX DAILY DOSE THREE TABLETS tramadol 50 mg tablet TAKE ONE TABLET BY MOUTH EVERY 8 HOURS NEEDED FOR SEVERE PAIN FOR UP TO FIVE DAYS, MAX DAILY DOSE THREE TABLETS completed tramadol hydrochloride 50 MG Oral Tablet [facility] ([facility]) zaleplon 5 MG Oral Capsule zaleplon 5 mg capsule TAKE ONE CAPSULE BY MOUTH AT BEDTIME zaleplon 5 mg capsule TAKE ONE CAPSULE BY MOUTH AT BEDTIME completed zaleplon 5 MG Oral Capsule [facility] ([facility]) gabapentin 300 MG Oral Capsule gabapenti n 300 mg capsule TAKE TWO CAPSULES BY MOUTH TWICE DAILY gabapentin 300 mg capsule TAKE TWO CAPSU LES BY MOUTH TWICE DAILY completed gabapentin 300 M G Oral Capsule [facility] ([facility]) Acetaminophen 325 MG / Oxycodone Hydroch loride 7.5 MG Oral Tablet oxycodone- acetaminophen 7.5 mg-325 mg tablet oxycodone-acetaminophen 7.5 mg-325 mg tablet completed acetam inophen 325 MG / oxycodone hydrochloride 7.5 MG Oral Tablet [facility] ([facility]) Fluarix Quad (PF) 60 mcg (15 mcg x 4)/0.5 mL IM syringe [id number] completed 0.5 ML influen za A virus A/[facility]/[id number] (H1N1) antigen 0.03 MG/ML / influenza A virus A/[facility] (H3N2) antigen 0.03 MG/ML / influenza B virus B/[facility] antigen 0.03 MG/ML / influenza B virus B/ antigen 0.03 MG/ML Prefilled Syringe [Fluarix Quadrivalent ] [facility] ([facility]) Simethicone 180 MG Oral Capsule simethic one 180 mg capsule TAKE ONE CAPSULE BY MOUTH THREE TIMES DAILY simethicone 180 mg capsule TAKE ONE CAPS ULE BY MOUTH THREE TIMES DAILY completed merline thicone 180 MG Oral Capsule [place] ([facility]) Lurasidone Hydrochloride 20 MG Oral Tabl et [Latuda] Latuda 20 mg tablet TAKE ONE TABLET BY MOUTH EVERY EVENING Latuda 20 mg tablet TAKE ONE TABLET BY M OUTH EVERY EVENING completed lurasidone hydrochloride 20 MG Oral Tablet [Latuda] [place] ([facility]) benztropine mesylate 1 MG Oral Tablet benztropine 1 mg tablet benztropine 1 mg tablet completed benztropine mes ylate 1 MG Oral Tablet [place] ([facility]) Meclizine Hydrochloride 25 MG Oral Table t meclizine 25 mg tablet take one tablet by mouth twice daily meclizine 25 mg tablet take one tablet b y mouth twice daily completed meclizine hydroc hloride 25 MG Oral Tablet [place] ([facility]) Lisinopril 10 MG Oral Tablet lisinopril 10 mg tablet TAKE ONE TABLET BY MOUTH AT BEDTIME lisinopril 10 mg tablet TAKE ONE TABLET BY MOUTH AT BEDTIME completed lisinopril 10 MG Oral Tablet [place] ([facility]) Sucralfate 1000 MG Oral Tablet sucralfate 1 gram table t sucralfate 1 gram tablet completed sucralfate 1000 MG Oral Tablet [place] ([facility]) tramadol hydrochloride 50 MG Oral Tablet tramadol 50 mg tablet TAKE ONE TABLET BY MOUTH EVERY 8 HOURS NEEDED FOR SEVERE PAIN FOR UP TO FIVE DAYS, MAX DAILY DOSE THREE TABLETS tramadol 50 mg tablet TAKE ONE TABLET BY MOUTH EVERY 8 HOURS NEEDED FOR SEVERE PAIN FOR UP TO FIVE DAYS, MAX DAILY DOSE THREE TABLETS completed tramadol hydrochloride 50 MG Oral Tablet [place] ([facility]) Nystatin 100 UNT/MG Topical Powder [Nyam yc] Nyamyc 100,000 unit/gram topical powder apply topically TO affected area(s) TWICE DAILY DIRECTED Nyamyc 100,000 unit/gram topical powder apply topically TO affected area(s) TWICE DAILY DIRECTED completed n ystatin 100 UNT/MG Topical Powder [Nyamyc] [place] ([facility]) Ciprofloxacin 500 MG Oral Tablet ciprofl oxacin 500 mg tablet TAKE ONE TABLET BY MOUTH TWICE DAILY FOR 10 DAYS ciprofloxacin 500 mg tablet TAKE ONE TAB LET BY MOUTH TWICE DAILY FOR 10 DAYS complete d ciprofloxacin 500 MG Oral Tablet [place] ([facility]) Furosemide 20 MG Oral Tablet furosemide 20 mg tablet TAKE ONE TABLET BY MOUTH EVERY 48 HOURS furosemide 20 mg tablet TAKE ONE TABLET BY MOUTH EVERY 48 HOURS completed furosemide 20 MG Oral Tablet [place] ([facility]) benztropine mesylate 1 MG Oral Tablet benztropine 1 mg tablet benztropine 1 mg tablet completed benztropine mes ylate 1 MG Oral Tablet [facility]) NITROFURANTOIN, MACROCRYSTALS 25 MG / Ni trofurantoin, Monohydrate 75 MG Oral Capsule nitrofurantoin monohydrate/macrocrystals 100 mg capsule nitrofurantoin monohydrate/macrocrystals 100 mg capsule completed nitrofurantoin, macrocrystals 25 MG / nitrofurantoin, monohydrate 75 MG Oral Capsule [place] ([facility]) Furosemide 20 MG Oral Tablet furosemide 20 mg tablet TAKE ONE TABLET BY MOUTH EVERY 48 HOURS furosemide 20 mg tablet TAKE ONE TABLET BY MOUTH EVERY 48 HOURS completed furosemide 20 MG Oral Tablet [facility]) Acetaminophen 325 MG / Oxycodone Hydroch loride 5 MG Oral Tablet oxycodone- acetaminophen 5 mg-325 mg tablet oxycodone-acetaminophen 5 mg-325 mg tablet completed acetaminop hen 325 MG / oxycodone hydrochloride 5 MG Oral Tablet [place] ([facility]) Simethicone 180 MG Oral Capsule simethic one 180 mg capsule TAKE ONE CAPSULE BY MOUTH THREE TIMES DAILY simethicone 180 mg capsule TAKE ONE CAPS ULE BY MOUTH THREE TIMES DAILY completed merline thicone 180 MG Oral Capsule [facility]) metaxalone 800 MG Oral Tablet metaxalone 800 mg tablet TAKE ONE TABLET BY MOUTH THREE TIMES DAILY NEEDED FOR PAIN AND SPASMS metaxalone 800 mg tablet TAKE ONE TABLET BY MOUTH THREE TIMES DAILY NEEDED FOR PAIN AND SPASMS completed metaxalone 800 MG Oral Tablet AT [facility]) benztropine mesylate 1 MG Oral Tablet benztropine 1 mg tablet benztropine 1 mg tablet completed benztropine mes ylate 1 MG Oral Tablet [place] ([facility]) tizanidine 4 MG Oral Tablet tizanidine 4 mg tablet tizanidine 4 mg ta blet completed tizanidine 4 MG Oral Tablet [place] ([facility]) Fluarix Quad (PF) 60 mcg (15 mcg x 4)/0.5 mL IM syringe [id number] [id number] completed 0.5 ML influen za A virus A/[facility]/[id number] (H1N1) antigen 0.03 MG/ML / influenza A virus A/ (H3N2) antigen 0.03 MG/ML / influenza B virus B/[facility] antigen 0.03 MG/ML / influenza B virus B/ antigen 0.03 MG/ML Prefilled Syringe [Fluarix Quadrivalent ] [place] ([facility]) Acetaminophen 325 MG / Oxycodone Hydroch loride 7.5 MG Oral Tablet oxycodone- acetaminophen 7.5 mg-325 mg tablet oxycodone-acetaminophen 7.5 mg-325 mg tablet completed acetam inophen 325 MG / oxycodone hydrochloride 7.5 MG Oral Tablet [place] ([facility]) Meclizine Hydrochloride 25 MG Oral Table t meclizine 25 mg tablet take one tablet by mouth twice daily meclizine 25 mg tablet take one tablet b y mouth twice daily completed meclizine hydroc hloride 25 MG Oral Tablet [place] ([facility]) Nystatin 100 UNT/MG Topical Powder [Nyam yc] Nyamyc 100,000 unit/gram topical powder apply topically TO affected area(s) TWICE DAILY DIRECTED Nyamyc 100,000 unit/gram topical powder apply topically TO affected area(s) TWICE DAILY DIRECTED completed n ystatin 100 UNT/MG Topical Powder [Nyamyc] [place] ([facility]) zaleplon 5 MG Oral Capsule zaleplon 5 mg capsule TAKE ONE CAPSULE BY MOUTH AT BEDTIME zaleplon 5 mg capsule TAKE ONE CAPSULE BY MOUTH AT BEDTIME completed zaleplon 5 MG Oral Capsule [place] ([facility]) benztropine mesylate 1 MG Oral Tablet benztropine 1 mg tablet benztropine 1 mg tablet completed benztropine mes ylate 1 MG Oral Tablet [place] ([facility]) Furosemide 20 MG Oral Tablet furosemide 20 mg tablet TAKE ONE TABLET BY MOUTH EVERY 48 HOURS furosemide 20 mg tablet TAKE ONE TABLET BY MOUTH EVERY 48 HOURS completed furosemide 20 MG Oral Tablet [place] ([facility]) Acetaminophen 325 MG / Oxycodone Hydroch loride 5 MG Oral Tablet oxycodone- acetaminophen 5 mg-325 mg tablet oxycodone-acetaminophen 5 mg-325 mg tablet completed acetaminop hen 325 MG / oxycodone hydrochloride 5 MG Oral Tablet [place] ([facility]) NITROFURANTOIN, MACROCRYSTALS 25 MG / Ni trofurantoin, Monohydrate 75 MG Oral Capsule nitrofurantoin monohydrate/macrocrystals 100 mg capsule nitrofurantoin monohydrate/macrocrystals 100 mg capsule completed nitrofurantoin, macrocrystals 25 MG / nitrofurantoin, monohydrate 75 MG Oral Capsule [place] ([facility]) Acetaminophen 500 MG Oral Tablet acetaminophen 500 mg tablet acetaminophen 500 mg tablet completed acetaminophe n 500 MG Oral Tablet [place] ([facility]) Promethazine Hydrochloride 25 MG Oral Ta blet promethazine 25 mg tablet TAKE ONE TABLET BY MOUTH EVERY 6 HOURS NEEDED FOR NAUSEA AND FOR VOMITING promethazine 25 mg tablet TAKE ONE TABLET BY MOUTH EVERY 6 HOURS NEEDED FOR NAUSEA AND FOR VOMITING completed p romethazine hydrochloride 25 MG Oral Tablet [place] ([facility]) Simethicone 180 MG Oral Capsule simethic one 180 mg capsule TAKE ONE CAPSULE BY MOUTH THREE TIMES DAILY simethicone 180 mg capsule TAKE ONE CAPS ULE BY MOUTH THREE TIMES DAILY completed merline thicone 180 MG Oral Capsule [place] ([facility]) Tolnaftate 10 MG/ML Topical Cream tolnaf barlow 1 % topical cream APPLY TO THE AFFECTED AREA(S) TWICE DAILY tolnaftate 1 % topical cream APPLY TO TH E AFFECTED AREA(S) TWICE DAILY completed to lnaftate 10 MG/ML Topical Cream [place] ([facility]) Fluarix Quad [id number] (PF) 60 mcg (15 mcg x 4)/0.5 mL IM syringe 609 182 completed 0.5 ML influen za A virus A/[facility]/[id number] (H1N1) antigen 0.03 MG/ML / influenza A virus A/[place] (H3N2) antigen 0.03 MG/ML / influenza B virus B/[facility]/30705/2012 antigen 0.03 MG/ML / influenza B virus B/ antigen 0.03 MG/ML Prefilled Syringe [Fluarix Quadrivalent [id number]] [place] ([facility]) Meclizine Hydrochloride 25 MG Oral Table t meclizine 25 mg tablet take one tablet by mouth twice daily meclizine 25 mg tablet take one tablet b y mouth twice daily completed meclizine hydroc hloride 25 MG Oral Tablet [place] ([facility]) 168 HR Buprenorphine 0.02 MG/HR Transder mal Patch buprenorphine 20 mcg/hour weekly transdermal patch APPLY ONE PATCH TO SKIN EVERY 7 DAYS MAX DAILY DOSE ONE PATCH PER SEVEN DAYS buprenorphine 20 mcg/hour weekly transde rmal patch APPLY ONE PATCH TO SKIN EVERY 7 DAYS MAX DAILY DOSE ONE PATCH PER SEVEN DAYS completed 168 HR buprenorphine 0.02 MG/HR Transdermal System [place] ([facility]) metaxalone 800 MG Oral Tablet metaxalone 800 mg tablet TAKE ONE TABLET BY MOUTH THREE TIMES DAILY NEEDED FOR PAIN AND SPASMS metaxalone 800 mg tablet TAKE ONE TABLET BY MOUTH THREE TIMES DAILY NEEDED FOR PAIN AND SPASMS completed metaxalone 800 MG Oral Tablet AT [facility]) Diazepam 5 MG Oral Tablet diazepam 5 mg tablet TAKE ONE TABLET BY MOUTH ONE-HALF HOUR PRIOR TO MRI MAY REPEAT IN 30 MINUTES if no effect MAX DAILY DOSE TWO TABLETS diazepam 5 mg tablet TAKE ONE TABLET BY MOUTH ONE-HALF HOUR PRIOR TO MRI MAY REPEAT IN 30 MINUTES if no effect MAX DAILY DOSE TWO TABLETS completed diazepam 5 MG Oral Tablet [place] ([facility]) Promethazine Hydrochloride 25 MG Oral Ta blet promethazine 25 mg tablet TAKE ONE TABLET BY MOUTH EVERY 6 HOURS NEEDED FOR NAUSEA AND FOR VOMITING promethazine 25 mg tablet TAKE ONE TABLET BY MOUTH EVERY 6 HOURS NEEDED FOR NAUSEA AND FOR VOMITING completed promethazine hydrochloride 25 MG Oral Tablet [place] ([facility]) Famotidine 20 MG Oral Tablet famotidine (PEPCID) 20 MG tablet famotidine (PEPCID) 20 MG tablet 20 mg Oral aborted Ta ke 20 mg by mouth daily [facility] NITROFURANTOIN, MACROCRYSTALS 25 MG / Ni trofurantoin, Monohydrate 75 MG Oral Capsule nitrofurantoin monohydrate/macrocrystals 100 mg capsule nitrofurantoin monohydrate/macrocrystals 100 mg capsule completed nitrofurantoin, macrocrystals 25 MG / nitrofurantoin, monohydrate 75 MG Oral Capsule [place] ([facility]) Belbuca 150 mcg buccal film DISSOLVE ONE FILM ON GUM ONCE DAILY [id number] completed buprenorphine 0.15 MG Buc nancy Film [Belbuca] [place] ([facility]) Belbuca 150 mcg buccal film DISSOLVE ONE FILM ON GUM ONCE DAILY [id number] completed buprenorphine 0.15 MG [place]ancy Film [Belbuca] [place] ([facility]) gabapentin 300 MG Oral Capsule gabapenti n 300 mg capsule TAKE TWO CAPSULES BY MOUTH TWICE DAILY gabapentin 300 mg capsule TAKE TWO CAPSU LES BY MOUTH TWICE DAILY completed gabapentin 300 M G Oral Capsule [place] ([facility]) Furosemide 20 MG Oral Tablet furosemide 20 mg tablet furosemide 20 mg tablet completed furosemide 20 MG Oral Tablet [place] ([facility]) Lurasidone Hydrochloride 20 MG Oral Tabl et [Latuda] Latuda 20 mg tablet TAKE ONE TABLET BY MOUTH EVERY EVENING Latuda 20 mg tablet TAKE ONE TABLET BY M OUTH EVERY EVENING completed lurasidone hydrochloride 20 MG Oral Tablet [Latuda] [place] ([facility]) benztropine mesylate 1 MG Oral Tablet benztropine 1 mg tablet benztropine 1 mg tablet completed benztropine mes ylate 1 MG Oral Tablet [place] ([facility]) Baclofen 5 MG Oral Tablet baclofen 5 mg tablet TAKE ONE TABLET BY MOUTH THREE TIMES DAILY WITH FOOD OR MILK baclofen 5 mg tablet TAKE ONE TABLET BY MOUTH THREE TIMES DAILY WITH FOOD OR MILK co mpleted baclofen 5 MG Oral Tablet [place] ([facility]) pantoprazole 40 MG Delayed Release Oral Tablet pantoprazole 40 mg tablet,delayed release pantoprazole 40 mg tablet,delayed release completed pantoprazole 40 MG Delayed Release Oral Tablet [place] ([facility]) Lisinopril 10 MG Oral Tablet lisinopril 10 mg tablet TAKE ONE TABLET BY MOUTH AT BEDTIME lisinopril 10 mg tablet TAKE ONE TABLET BY MOUTH AT BEDTIME completed lisinopril 10 MG Oral Tablet [place] ([facility]) zaleplon 5 MG Oral Capsule zaleplon 5 mg capsule TAKE ONE CAPSULE BY MOUTH AT BEDTIME zaleplon 5 mg capsule TAKE ONE CAPSULE BY MOUTH AT BEDTIME completed zaleplon 5 MG Oral Capsule [place] ([facility]) Acetaminophen 325 MG / Hydrocodone Andres trate 5 MG Oral Tablet hydrocodone 5 mg- acetaminophen 325 mg tablet TAKE ONE TABLET BY MOUTH ONCE DAILY MAX DAILY DOSE ONE TABLET hydrocodone 5 mg-acetaminophen 325 mg ta blet TAKE ONE TABLET BY MOUTH ONCE DAILY MAX DAILY DOSE ONE TABLET completed acetaminophen 325 MG / hydrocodone bitartrate 5 MG Oral Tablet [place] ([facility]) Belbuca 75 mcg buccal film APPLY ONE TEODORO M TO GUMS ONCE DAILY FOR PAIN MAX DAILY DOSE ONE FILM [id number] completed b uprenorphine 0.075 MG Buccal Film [Belbuca] [place] ([facility]) Belbuca 150 mcg buccal film DISSOLVE ONE FILM ON GUM ONCE DAILY [id number] completed buprenorphine 0.15 MG [place]ancy Film [Belbuca] [place] ([facility]) Fluarix Quad [id number] (PF) 60 mcg (15 mcg x 4)/0.5 mL IM syringe 603 182 completed 0.5 ML influen za A virus A/[facility]/[id number] (H1N1) antigen 0.03 MG/ML / influenza A virus A/ (H3N2) antigen 0.03 MG/ML / influenza B virus B/[facility] antigen 0.03 MG/ML / influenza B virus B/ antigen 0.03 MG/ML Prefilled Syringe [Fluarix Quadrivalent ] [place] ([facility]) Furosemide 20 MG Oral Tablet furosemide 20 mg tablet furosemide 20 mg tablet completed furosemide 20 MG Oral Tablet [place] ([facility]) Sulfamethoxazole 800 MG / Trimethoprim 1 60 MG Oral Tablet sulfamethoxazole 800 mg-trimethoprim 160 mg tablet sulfamethoxazole 800 mg-trimethoprim 160 mg tablet completed sulfame thoxazole 800 MG / trimethoprim 160 MG Oral Tablet [place] ([facility]) 168 HR Buprenorphine 0.01 MG/HR Transder mal Patch buprenorphine 10 mcg/hour weekly transdermal patch APPLY TWO PATCHes TOPICALY EVERY 7 DAYS, MAX DAILY DOSE TWO PATCH EVERY 7 DAYS buprenorphine 10 mcg/hour weekly transde rmal patch APPLY TWO PATCHes TOPICALY EVERY 7 DAYS, MAX DAILY DOSE TWO PATCH EVERY 7 DAYS completed 168 HR buprenorphine 0.01 MG/HR Transdermal System [place] ([facility]) gabapentin 300 MG Oral Capsule gabapenti n 300 mg capsule TAKE TWO CAPSULES BY MOUTH TWICE DAILY gabapentin 300 mg capsule TAKE TWO CAPSU LES BY MOUTH TWICE DAILY completed gabapentin 300 M G Oral Capsule [place] ([facility]) pantoprazole 40 MG Delayed Release Oral Tablet pantoprazole 40 mg tablet,delayed release pantoprazole 40 mg tablet,delayed release completed pantoprazole 40 MG Delayed Release Oral Tablet [place] ([facility]) Sucralfate 1000 MG Oral Tablet sucralfate 1 gram table t sucralfate 1 gram tablet completed sucralfate 1000 MG Oral Tablet [place] ([facility]) Bel[place]uca 150 mcg buccal film DISSOLVE ONE FILM ON GUM ONCE DAILY [id number] completed buprenorphine 0.15 MG [place] Film [Belbuca] [place] ([facility]) Belbuca 150 mcg buccal film DISSOLVE ONE FILM ON GUM ONCE DAILY [id number] completed buprenorphine 0.15 MG [place] Film [Belbuca] [place] ([facility]) Promethazine Hydrochloride 25 MG Oral Ta blet promethazine 25 mg tablet TAKE ONE TABLET BY MOUTH EVERY 6 HOURS NEEDED FOR NAUSEA AND FOR VOMITING promethazine 25 mg tablet TAKE ONE TABLET BY MOUTH EVERY 6 HOURS NEEDED FOR NAUSEA AND FOR VOMITING completed p romethazine hydrochloride 25 MG Oral Tablet [place] ([facility]) Simethicone 180 MG Oral Capsule simethic one 180 mg capsule TAKE ONE CAPSULE BY MOUTH THREE TIMES DAILY simethicone 180 mg capsule TAKE ONE CAPS ULE BY MOUTH THREE TIMES DAILY completed merline thicone 180 MG Oral Capsule [place] ([facility]) Sulfamethoxazole 800 MG / Trimethoprim 1 60 MG Oral Tablet sulfamethoxazole 800 mg-trimethoprim 160 mg tablet sulfamethoxazole 800 mg-trimethoprim 160 mg tablet completed sulfame thoxazole 800 MG / trimethoprim 160 MG Oral Tablet [place] ([facility]) zaleplon 5 MG Oral Capsule zaleplon 5 mg capsule TAKE ONE CAPSULE BY MOUTH AT BEDTIME zaleplon 5 mg capsule TAKE ONE CAPSULE BY MOUTH AT BEDTIME completed zaleplon 5 MG Oral Capsule [facility] [place] [facility] pantoprazole 40 MG Delayed Release Oral Tablet pantoprazole 40 mg tablet,delayed release pantoprazole 40 mg tablet,delayed release completed pantoprazole 40 MG Delayed Release Oral Tablet [place] ([facility]) pantoprazole 40 MG Delayed Release Oral Tablet pantoprazole (PROTONIX) 40 MG tablet pantoprazole (PROTONIX) 40 MG tablet 40 mg Oral aborted Take 40 mg by mouth 2 (two) times a day [facility] Acetaminophen 325 MG / Hydrocodone Andres trate 5 MG Oral Tablet hydrocodone 5 mg- acetaminophen 325 mg tablet TAKE ONE TABLET BY MOUTH ONCE DAILY MAX DAILY DOSE ONE TABLET hydrocodone 5 mg-acetaminophen 325 mg ta blet TAKE ONE TABLET BY MOUTH ONCE DAILY MAX DAILY DOSE ONE TABLET completed acetaminophen 325 MG / hydrocodone bitartrate 5 MG Oral Tablet [place] ([facility]) pantoprazole 40 MG Delayed Release Oral Tablet pantoprazole 40 mg tablet,delayed release pantoprazole 40 mg tablet,delayed release completed pantoprazole 40 MG Delayed Release Oral Tablet [place] ([facility]) gabapentin 300 MG Oral Capsule gabapenti n 300 mg capsule TAKE TWO CAPSULES BY MOUTH TWICE DAILY gabapentin 300 mg capsule TAKE TWO CAPSU LES BY MOUTH TWICE DAILY completed gabapentin 300 M G Oral Capsule [place] ([facility]) zaleplon 5 MG Oral Capsule zaleplon 5 mg capsule TAKE ONE CAPSULE BY MOUTH AT BEDTIME zaleplon 5 mg capsule TAKE ONE CAPSULE BY MOUTH AT BEDTIME completed zaleplon 5 MG Oral Capsule [place] ([facility]) pantoprazole 40 MG Delayed Release Oral Tablet pantoprazole 40 mg tablet,delayed release pantoprazole 40 mg tablet,delayed release completed pantoprazole 40 MG Delayed Release Oral Tablet [place] ([facility]) 168 HR Buprenorphine 0.02 MG/HR Transder mal Patch buprenorphine 20 mcg/hour weekly transdermal patch APPLY ONE PATCH TO SKIN EVERY 7 DAYS MAX DAILY DOSE ONE PATCH PER SEVEN DAYS buprenorphine 20 mcg/hour weekly transde rmal patch APPLY ONE PATCH TO SKIN EVERY 7 DAYS MAX DAILY DOSE ONE PATCH PER SEVEN DAYS completed 168 HR buprenorphine 0.02 MG/HR Transdermal System [place] ([facility]) NITROFURANTOIN, MACROCRYSTALS 25 MG / Ni trofurantoin, Monohydrate 75 MG Oral Capsule nitrofurantoin monohydrate/macrocrystals 100 mg capsule nitrofurantoin monohydrate/macrocrystals 100 mg capsule completed nitrofurantoin, macrocrystals 25 MG / nitrofurantoin, monohydrate 75 MG Oral Capsule [facility]) Acetaminophen 325 MG / Hydrocodone Andres trate 5 MG Oral Tablet hydrocodone 5 mg- acetaminophen 325 mg tablet TAKE ONE TABLET BY MOUTH ONCE DAILY MAX DAILY DOSE ONE TABLET hydrocodone 5 mg-acetaminophen 325 mg ta blet TAKE ONE TABLET BY MOUTH ONCE DAILY MAX DAILY DOSE ONE TABLET completed acetaminophen 325 MG / hydrocodone bitartrate 5 MG Oral Tablet [place] ([facility]) gabapentin 300 MG Oral Capsule gabapenti n 300 mg capsule TAKE TWO CAPSULES BY MOUTH TWICE DAILY gabapentin 300 mg capsule TAKE TWO CAPSU LES BY MOUTH TWICE DAILY completed gabapentin 300 M G Oral Capsule [place] ([facility]) Simethicone 180 MG Oral Capsule simethic one 180 mg capsule TAKE ONE CAPSULE BY MOUTH THREE TIMES DAILY simethicone 180 mg capsule TAKE ONE CAPS ULE BY MOUTH THREE TIMES DAILY completed merline thicone 180 MG Oral Capsule [facility]) Bel[place]uca 150 mcg buccal film DISSOLVE ONE FILM ON GUM ONCE DAILY [id number] completed buprenorphine 0.15 MG [place] Film [Bel[place]uca] [place] ([facility]) Carisoprodol 350 MG Oral Tablet carisopr odol 350 mg tablet TAKE ONE TABLET BY MOUTH ONCE DAILY NEEDED MAX DAILY DOSE ONE TABLET carisoprodol 350 mg tablet TAKE ONE TABLET BY MOUTH ONCE DAILY NEEDED MAX DAILY DOSE ONE TABLET completed carisoprodol 350 MG Oral Tablet [place] ([facility]) Acetaminophen 500 MG Oral Tablet acetaminophen 500 mg tablet acetaminophen 500 mg tablet completed acetaminophe n 500 MG Oral Tablet [place] ([facility]) Metoprolol Tartrate 25 MG Oral Tablet me toprolol tartrate 25 mg tablet TAKE ONE TABLET BY MOUTH TWICE DAILY metoprolol tartrate 25 mg tablet TAKE ON E TABLET BY MOUTH TWICE DAILY completed metoprolol tartrate 25 MG Oral Tablet [facility]) Diazepam 5 MG Oral Tablet diazepam 5 mg tablet TAKE ONE TABLET BY MOUTH ONE-HALF HOUR PRIOR TO MRI MAY REPEAT IN 30 MINUTES if no effect MAX DAILY DOSE TWO TABLETS diazepam 5 mg tablet TAKE ONE TABLET BY MOUTH ONE-HALF HOUR PRIOR TO MRI MAY REPEAT IN 30 MINUTES if no effect MAX DAILY DOSE TWO TABLETS completed diazepam 5 MG Oral Tablet [place] ([facility]) Nystatin 100 UNT/MG Topical Powder [Nyam yc] Nyamyc 100,000 unit/gram topical powder apply topically TO affected area(s) TWICE DAILY DIRECTED Nyamyc 100,000 unit/gram topical powder apply topically TO affected area(s) TWICE DAILY DIRECTED completed n ystatin 100 UNT/MG Topical Powder [Nyamyc] [place] ([facility]) Acetaminophen 325 MG / Oxycodone Hydroch loride 7.5 MG Oral Tablet oxycodone- acetaminophen 7.5 mg-325 mg tablet oxycodone-acetaminophen 7.5 mg-325 mg tablet completed acetam inophen 325 MG / oxycodone hydrochloride 7.5 MG Oral Tablet [place] ([facility]) Lisinopril 10 MG Oral Tablet lisinopril 10 mg tablet TAKE ONE TABLET BY MOUTH AT BEDTIME lisinopril 10 mg tablet TAKE ONE TABLET BY MOUTH AT BEDTIME completed lisinopril 10 MG Oral Tablet [place] ([facility]) gabapentin 300 MG Oral Capsule gabapenti n 300 mg capsule TAKE TWO CAPSULES BY MOUTH TWICE DAILY gabapentin 300 mg capsule TAKE TWO CAPSU LES BY MOUTH TWICE DAILY completed gabapentin 300 M G Oral Capsule [place] ([facility]) benztropine mesylate 1 MG Oral Tablet benztropine 1 mg tablet benztropine 1 mg tablet completed benztropine mes ylate 1 MG Oral Tablet [place] ([facility]) Promethazine Hydrochloride 25 MG Oral Ta blet promethazine 25 mg tablet TAKE ONE TABLET BY MOUTH EVERY 6 HOURS NEEDED FOR NAUSEA AND FOR VOMITING promethazine 25 mg tablet TAKE ONE TABLET BY MOUTH EVERY 6 HOURS NEEDED FOR NAUSEA AND FOR VOMITING completed p romethazine hydrochloride 25 MG Oral Tablet [place] ([facility]) Promethazine Hydrochloride 25 MG Oral Ta blet promethazine 25 mg tablet TAKE ONE TABLET BY MOUTH EVERY 6 HOURS NEEDED FOR NAUSEA AND FOR VOMITING promethazine 25 mg tablet TAKE ONE TABLET BY MOUTH EVERY 6 HOURS NEEDED FOR NAUSEA AND FOR VOMITING completed p romethazine hydrochloride 25 MG Oral Tablet [place] ([facility]) Simethicone 180 MG Oral Capsule simethic one 180 mg capsule TAKE ONE CAPSULE BY MOUTH THREE TIMES DAILY simethicone 180 mg capsule TAKE ONE CAPS ULE BY MOUTH THREE TIMES DAILY completed merline thicone 180 MG Oral Capsule [place] ([facility]) pantoprazole 40 MG Delayed Release Oral Tablet pantoprazole 40 mg tablet,delayed release pantoprazole 40 mg tablet,delayed release completed pantoprazole 40 MG Delayed Release Oral Tablet [place] ([facility]) Metoprolol Tartrate 25 MG Oral Tablet me toprolol tartrate 25 mg tablet TAKE ONE TABLET BY MOUTH TWICE DAILY metoprolol tartrate 25 mg tablet TAKE ON E TABLET BY MOUTH TWICE DAILY completed metoprolol tartrate 25 MG Oral Tablet [place] ([facility]) Nystatin 100 UNT/MG Topical Powder [Nyam yc] Nyamyc 100,000 unit/gram topical powder apply topically TO affected area(s) TWICE DAILY DIRECTED Nyamyc 100,000 unit/gram topical powder apply topically TO affected area(s) TWICE DAILY DIRECTED completed n ystatin 100 UNT/MG Topical Powder [Nyamyc] [place] ([facility]) Diazepam 5 MG Oral Tablet diazepam 5 mg tablet TAKE ONE TABLET BY MOUTH ONE-HALF HOUR PRIOR TO MRI MAY REPEAT IN 30 MINUTES if no effect MAX DAILY DOSE TWO TABLETS diazepam 5 mg tablet TAKE ONE TABLET BY MOUTH ONE-HALF HOUR PRIOR TO MRI MAY REPEAT IN 30 MINUTES if no effect MAX DAILY DOSE TWO TABLETS completed diazepam 5 MG Oral Tablet [place] ([facility]) Acetaminophen 325 MG / Oxycodone Hydroch loride 5 MG Oral Tablet oxycodone- acetaminophen 5 mg-325 mg tablet oxycodone-acetaminophen 5 mg-325 mg tablet completed acetaminop hen 325 MG / oxycodone hydrochloride 5 MG Oral Tablet [place] ([facility]) Simethicone 180 MG Oral Capsule simethic one 180 mg capsule TAKE ONE CAPSULE BY MOUTH THREE TIMES DAILY simethicone 180 mg capsule TAKE ONE CAPS ULE BY MOUTH THREE TIMES DAILY completed merline thicone 180 MG Oral Capsule [place] ([facility]) Ciprofloxacin 500 MG Oral Tablet ciprofl oxacin 500 mg tablet TAKE ONE TABLET BY MOUTH TWICE DAILY FOR 10 DAYS ciprofloxacin 500 mg tablet TAKE ONE TAB LET BY MOUTH TWICE DAILY FOR 10 DAYS complete d ciprofloxacin 500 MG Oral Tablet [place] ([facility]) Metoprolol Tartrate 25 MG Oral Tablet me toprolol tartrate 25 mg tablet TAKE ONE TABLET BY MOUTH TWICE DAILY metoprolol tartrate 25 mg tablet TAKE ON E TABLET BY MOUTH TWICE DAILY completed metoprolol tartrate 25 MG Oral Tablet [place] ([facility]) Sulfamethoxazole 800 MG / Trimethoprim 1 60 MG Oral Tablet sulfamethoxazole 800 mg-trimethoprim 160 mg tablet sulfamethoxazole 800 mg-trimethoprim 160 mg tablet completed sulfame thoxazole 800 MG / trimethoprim 160 MG Oral Tablet [place] ([facility]) gabapentin 300 MG Oral Capsule gabapenti n 300 mg capsule TAKE TWO CAPSULES BY MOUTH TWICE DAILY gabapentin 300 mg capsule TAKE TWO CAPSU LES BY MOUTH TWICE DAILY completed gabapentin 300 M G Oral Capsule [place] ([facility]) Sulfamethoxazole 800 MG / Trimethoprim 1 60 MG Oral Tablet sulfamethoxazole 800 mg-trimethoprim 160 mg tablet sulfamethoxazole 800 mg-trimethoprim 160 mg tablet completed sulfame thoxazole 800 MG / trimethoprim 160 MG Oral Tablet [place] ([facility]) zaleplon 5 MG Oral Capsule zaleplon 5 mg capsule TAKE ONE CAPSULE BY MOUTH AT BEDTIME zaleplon 5 mg capsule TAKE ONE CAPSULE BY MOUTH AT BEDTIME completed zaleplon 5 MG Oral Capsule [place] ([facility]) Diazepam 5 MG Oral Tablet diazepam 5 mg tablet TAKE ONE TABLET BY MOUTH ONE-HALF HOUR PRIOR TO MRI MAY REPEAT IN 30 MINUTES if no effect MAX DAILY DOSE TWO TABLETS diazepam 5 mg tablet TAKE ONE TABLET BY MOUTH ONE-HALF HOUR PRIOR TO MRI MAY REPEAT IN 30 MINUTES if no effect MAX DAILY DOSE TWO TABLETS completed diazepam 5 MG Oral Tablet [place] ([facility]) Nystatin 100 UNT/MG Topical Powder [Nyam yc] Nyamyc 100,000 unit/gram topical powder apply topically TO affected area(s) TWICE DAILY DIRECTED Nyamyc 100,000 unit/gram topical powder apply topically TO affected area(s) TWICE DAILY DIRECTED completed n ystatin 100 UNT/MG Topical Powder [Nyamyc] [place] ([facility]) Diazepam 5 MG Oral Tablet diazepam 5 mg tablet TAKE ONE TABLET BY MOUTH ONE-HALF HOUR PRIOR TO MRI MAY REPEAT IN 30 MINUTES if no effect MAX DAILY DOSE TWO TABLETS diazepam 5 mg tablet TAKE ONE TABLET BY MOUTH ONE-HALF HOUR PRIOR TO MRI MAY REPEAT IN 30 MINUTES if no effect MAX DAILY DOSE TWO TABLETS completed diazepam 5 MG Oral Tablet [place] ([facility]) Acetaminophen 325 MG / Hydrocodone Andres trate 5 MG Oral Tablet hydrocodone 5 mg- acetaminophen 325 mg tablet TAKE ONE TABLET BY MOUTH ONCE DAILY MAX DAILY DOSE ONE TABLET hydrocodone 5 mg-acetaminophen 325 mg ta blet TAKE ONE TABLET BY MOUTH ONCE DAILY MAX DAILY DOSE ONE TABLET completed acetaminophen 325 MG / hydrocodone bitartrate 5 MG Oral Tablet [place] ([facility]) Fluarix Quad (PF) 60 mcg (15 mcg x 4)/0.5 mL IM syringe [id number] completed 0.5 ML influen za A virus A/[facility]/[id number] (H1N1) antigen 0.03 MG/ML / influenza A virus A/[facility] (H3N2) antigen 0.03 MG/ML / influenza B virus B/[facility] antigen 0.03 MG/ML / influenza B virus B/ antigen 0.03 MG/ML Prefilled Syringe [Fluarix Quadrivalent ] [place] ([facility]) 168 HR Buprenorphine 0.02 MG/HR Transder mal Patch buprenorphine 20 mcg/hour weekly transdermal patch APPLY ONE PATCH TO SKIN EVERY 7 DAYS MAX DAILY DOSE ONE PATCH PER SEVEN DAYS buprenorphine 20 mcg/hour weekly transde rmal patch APPLY ONE PATCH TO SKIN EVERY 7 DAYS MAX DAILY DOSE ONE PATCH PER SEVEN DAYS completed 168 HR buprenorphine 0.02 MG/HR Transdermal System [place] ([facility]) Insurance Providers Payer name Policy type / Coverage type Policy ID Covered democrat ID Covered democrat's relationship to hall Policy Hall Plan Information [facility] Community Plan Commercial [id number] Self [id number] [facility] Community Plan Commercial [id number] Self [id number] [facility] Community Plan Commercial [id number] Self [facility] Community Plan Commercial [id number] Self [id number] [place] Medig[place] Part B [id number] Self [id number] [place] [id number] Self Medicaid S [id number] S [id number] [facility] [id number] SP [id number] Managed Care - Community Plan [facility] P [id number] S [id number] Medicaid S [id number] S [id number] [facility] MEDICAID [id number] [place] [id number] Managed Care - Community Plan [facility] P [id number] S [id number] Managed Care - [facility] Community Plan P [id number] S [id number] [facility] MEDICAID [id number] xxxxxxxxx [id number] Medicaid S [id number] S [id number] Managed Care - [facility] Community Plan P [id number] S [id number] [facility] I [id number] Self [id number] [facility] MEDICAID REPLACEMENT ANS-Medicaid [id number] ANS-Medicaid [id number] ANS-Medicaid [id number] [facility] [id number] SP [id number] ANSI-Medicaid [id number] ANSI-Medicaid [id number] ANSI-Medicaid [id number] ANSI-Medicaid [id number] ANSI-Medicaid [id number] ANSI-Medicaid [id number] ANSI-Medicaid [id number] ANSI-Medicaid [id number] ANSI-Medicaid [id number] ANSI-Medicaid [id number] ANSI-Medicaid [id number] ANSI-Medicaid [id number] ANSI-Medicaid [id number] ANSI-Medicaid [id number] ANSI-Medicaid [id number] ANSI-Medicaid [id number] ANSI-Medicaid [id number] ANSI-Medicaid [id number] ANSI-Medicaid [id number] ANSI-Medicaid [id number] ANSI-Medicaid [id number] ANSI-Medicaid [id number] ANSI-Medicaid [id number] ANSI-Medicaid [id number] ANSI-Medicaid [id number] ANSI-Medicaid [id number] [facility] H O [id number] S [id number] Managed Care - Community Plan [facility] P [id number] S [id number] Medicaid S [id number] S [id number] MEDICAID [id number] SP [id number] [facility] COMMUNITY PLAN MCDHMO [id number] SP [id number] [facility] COMMUNITY PLAN MCDO [id number] SP [id number] [facility](MCAID) O [id number] S [id number] [facility] [id number] SP [id number] [facility]CA[facility]) O [id number] S [id number] [facility] [id number] Self MEDICAID [id number] SP [id number] [facility] O [id number] S [id number] [facility] PHSP INC [id number] [facility] PHSP INC [id number] SP [id number] SELF PAY UNAVAILABLE SP UNAVAILA BLE MEDICAID [id number] SP [id number] [employer] COMMUNITY PLAN MCDHMO [id number] SP [id number] [place] [id number] SP [id number] EMEDNY [id number] SP [id number] [facility](MCAID) O [id number] S [id number] MEDICAID M [id number] S [id number] [facility] COMMUNTY PLAN [id number] UN COMMUNITY PLAN XIX [id number] 18 [id number] [facility] [id number] SP [id number] [facility] HEALTH POOJA [id number] SP [id number] [facility] [id number] SP [id number] Managed Care - [facility] Community Plan P [id number] S [id number] ANSI-Medicaid [id number] ANSI-Medicaid [id number] ANSI-Medicaid [id number] ANSI-Medicaid [id number] ANSI-Medicaid [id number] ANSI-Medicaid [id number] ANSI-Medicaid [id number] Problems, Conditions, and Diagnoses Code Display Name Description Problem Type Effective Dates Data Source(s) R93.5 Abnormal findings on diagnos tic imaging of other abdominal regions, including retroperitoneum Abnormal findings on diagnostic imaging of other abdominal regions, including retroperitoneum Diagnosis 1 04:23:00 PM EDT [facility] N12 Tubulo-interstitial nephritis, 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 Tubulo- interstitial nephritis, not specified as acute or chronic Diagnosis 08/16/2020 04:23:00 PM EDT [facility] Nausea Nausea Diagnosis 08/16/2020 04:23:00 PM ED T [facility] Pelvic Pain Pelvic Pain Diagnosis 08/16/2020 04:23:00 PM EDT [facility] UTI UTI Diagnosis 08/16/2020 04:23:00 PM ED T [facility] N39.3 [id number] Stress incontinence Problem 12/16/2020 12:00 :00 AM EDT eCW1 ([facility]) E66.9 [id number] Obesity without seri ous comorbidity, unspecified classification, unspecified obesity type Problem 12/16/2020 12:00:00 AM EDT eCW1 ([facility]) N32.81 401543778 Overactive bladder Problem 12/16/2020 12:00: 00 AM EDT eCW1 ([facility]) N39.41 30096270 Urge incontinence Problem 12/16/2020 12:00:0 0 AM EDT eCW1 ([facility]) F41.9 Anxiety disorder, unspecified Unspecified Anxiety Diso rder Condition 11/30/2020 12:00:00 AM EDT [facility] ([facility]) F33.1 Major depressive disorder, recurrent, mo derate Major Depressive Disorder, Recurrent episode, Moderate Condition 11/30/2020 12:00:00 AM EDT [facility] ([facility]) 525143246 Recurrent falls Recurrent Falls Problem 11/24/2020 12:0 0:00 AM EDT [place] ([facility]) 756455102 Microscopic hematuria Microscopic Hematuria Problem 11/24/2020 12:00:00 AM EDT [place] ([facility]) 600012392 Recurrent falls Recurrent Falls Problem 11/24/2020 12:0 0:00 AM EDT [place] ([facility]) 043771814 Microscopic hematuria Microscopic Hematuria Problem 11/24/2020 12:00:00 AM EDT [place] ([facility]) N39.490 Overflow incontinence of urine Overflow incontinence P roblem 11/18/2020 12:00:00 AM EDT eCW1 ([facility]) 214270152 COVID-19 Covid-19 Problem 10/26/2020 12:00:00 AM ED T [place] ([facility]) 630509947 COVID-19 Covid-19 Problem 10/26/2020 12:00:00 AM ED T [place] ([facility]) 587414646 COVID-19 Covid-19 Problem 10/26/2020 12:00:00 AM ED T [place] ([facility]) 791804276 COVID-19 Covid-19 Problem 10/26/2020 12:00:00 AM ED T [place] ([facility]) F31.81 Bipolar II disorder Bipolar II Disorder Condition 0 08/03/2020 12:00:00 AM EDT [facility] ([facility]) 70864744 Hepatomegaly Hepatomegaly Problem 05/03/2020 12:00:00 A M EST [place] ([facility]) 08736907 Large liver Large Liver Problem 05/03/2020 12:00:00 AM EST [place] ([facility]) 30252227 Large liver Large Liver Problem 05/03/2020 12:00:00 AM EST [place] ([facility]) 82509410 Large liver Large Liver Problem 05/03/2020 12:00:00 AM EST [place] ([facility]) 71735918 Large liver Large Liver Problem 05/03/2020 12:00:00 AM EST [place] ([facility]) 96463221 Large liver Large Liver Problem 05/03/2020 12:00:00 AM EST [place] ([facility]) 02776436 Large liver Large Liver Problem 05/03/2020 12:00:00 AM EST [place] ([facility]) 56275559 Large liver Large Liver Problem 05/03/2020 12:00:00 AM EST [place] ([facility]) 29372524 Large liver Large Liver Problem 05/03/2020 12:00:00 AM EST [place] ([facility]) 793.11 Solitary nodule of lung Solitary nodule of lung 12/23/2019 08:44:01 AM EDT [facility] 530.81 GERD GERD 12/23/2019 08:44:01 AM ED T [facility] [id number] [place] lesion of lung [place] Lesion of Lung Problem 1 12:00:00 AM EDT [place] ([facility]) R91.1 [place] lesion of lung [place] lesion of lung 72653954 1 12:00:00 AM EDT [facility] 036380455 [place] lesion of lung [place] Lesion of Lung Problem 1 12:00:00 AM EDT [place] ([facility]) 031809658 [place] lesion of lung [place] Lesion of Lung Problem 1 12:00:00 AM EDT [place] ([facility]) 851850023 [place] lesion of lung [place] Lesion of Lung Problem 1 12:00:00 AM EDT [place] ([facility]) 284145338 [place] lesion of lung [place] Lesion of Lung Problem 1 12:00:00 AM EDT [place] ([facility]) 401151997 [place] lesion of lung [place] Lesion of Lung Problem 1 12:00:00 AM EDT [place] ([facility]) 256282686 [place] lesion of lung [place] Lesion of Lung Problem 1 12:00:00 AM EDT [place] ([facility]) 711317714 [place] lesion of lung [place] Lesion of Lung Problem 1 12:00:00 AM EDT [place] ([facility]) 692905003 [place] lesion of lung [place] Lesion of Lung Problem 1 12:00:00 AM EDT [place] ([facility]) F33.1 Major depressive disorder, recurrent, mo derate Major Depressive Disorder, Recurrent episode, Moderate Condition 12/18/2019 12:00:00 AM EDT [facility] ([facility]) F32.9 Major depressive disorder, single episod e, unspecified Unspecified depressive Disorder Condition 12/18/2019 12:00:00 AM EDT [facility] ([facility]) 000758292 Clinical finding Clinical Finding Problem 12:00:00 AM EDT - 01/22/2020 12:00:00 AM EST [place] ([facility]) 980232756 Finding of general energy Finding of General Energy Pr oblem 07/22/2019 12:00:00 AM EDT - 01/22/2020 12:00:00 AM EST [place] ([facility]) 30119649 Pain Pain Problem 07/22/2019 12:0 0:00 AM EDT - 01/22/2020 12:00:00 AM EST [place] ([facility]) 602609296 Clinical finding Clinical Finding Problem 12:00:00 AM EDT - 01/22/2020 12:00:00 AM EST [place] ([facility]) 743353930 Finding of general energy Finding of General Energy Pr oblem 07/22/2019 12:00:00 AM EDT - 01/22/2020 12:00:00 AM EST [place] ([facility]) 89572421 Pain Pain Problem 07/22/2019 12:0 0:00 AM EDT - 01/22/2020 12:00:00 AM EST [place] ([facility]) 798545916 Clinical finding Clinical Finding Problem 12:00:00 AM EDT - 01/22/2020 12:00:00 AM EST [place] ([facility]) 333799176 Finding of general energy Finding of General Energy Pr oblem 07/22/2019 12:00:00 AM EDT - 01/22/2020 12:00:00 AM EST [place] ([facility]) 61791127 Pain Pain Problem 07/22/2019 12:0 0:00 AM EDT - 01/22/2020 12:00:00 AM EST [place] ([facility]) 518295519 Clinical finding Clinical Finding Problem 12:00:00 AM EDT - 01/22/2020 12:00:00 AM EST [place] ([facility]) 383641721 Finding of general energy Finding of General Energy Pr oblem 07/22/2019 12:00:00 AM EDT - 01/22/2020 12:00:00 AM EST [place] ([facility]) [id number] Pain Pain Problem 07/22/2019 12:0 0:00 AM EDT - 01/22/2020 12:00:00 AM EST [place] ([facility]) 495679995 Clinical finding Clinical Finding Problem 020 12:00:00 AM EDT - 01/22/2020 12:00:00 AM EST [place] ([facility]) 709790915 Finding of general energy Finding of General Energy Pr oblem 07/22/2019 12:00:00 AM EDT - 01/22/2020 12:00:00 AM EST [place] ([facility]) 88509146 Pain Pain Problem 07/22/2019 12:0 0:00 AM EDT - 01/22/2020 12:00:00 AM EST [facility] ([facility]) 760060329 Clinical finding Clinical Finding Problem 12:00:00 AM EDT - 01/22/2020 12:00:00 AM EST [place] ([facility]) 405697307 Finding of general energy Finding of General Energy Pr oblem 07/22/2019 12:00:00 AM EDT - 01/22/2020 12:00:00 AM EST [place] ([facility]) 86365399 Pain Pain Problem 07/22/2019 12:0 0:00 AM EDT - 01/22/2020 12:00:00 AM EST [place] ([facility]) 694104003 Clinical finding Clinical Finding Problem 020 12:00:00 AM EDT - 01/22/2020 12:00:00 AM EST [place] ([facility]) 068143825 Finding of general energy Finding of General Energy Pr oblem 07/22/2019 12:00:00 AM EDT - 01/22/2020 12:00:00 AM EST [place] ([facility]) [id number] Pain Pain Problem 07/22/2019 12:0 0:00 AM EDT - 01/22/2020 12:00:00 AM EST [facility] ([facility]) [id number] Clinical finding Clinical Finding Problem 020 12:00:00 AM EDT - 01/22/2020 12:00:00 AM EST [facility] ([facility]) 370967275 Finding of general energy Finding of General Energy Pr oblem 07/22/2019 12:00:00 AM EDT - 01/22/2020 12:00:00 AM EST [place] ([facility]) [id number] Pain Pain Problem 07/22/2019 12:0 0:00 AM EDT - 01/22/2020 12:00:00 AM EST [facility] ([facility]) 891524931 Clinical finding Clinical Finding Problem 020 12:00:00 AM EDT - 01/22/2020 12:00:00 AM EST [facility] ([facility]) [id number] Finding of general energy Finding of General Energy Pr oblem 07/22/2019 12:00:00 AM EDT - 01/22/2020 12:00:00 AM EST [place] ([facility]) 23239735 Pain Pain Problem 07/22/2019 12:0 0:00 AM EDT - 01/22/2020 12:00:00 AM EST [facility] ([facility]) [id number] Clinical finding Clinical Finding Problem 12:00:00 AM EDT - 01/22/2020 12:00:00 AM EST [facility] ([facility]) 558351561 Finding of general energy Finding of General Energy Pr oblem 07/22/2019 12:00:00 AM EDT - 01/22/2020 12:00:00 AM EST [facility] ([facility]) [id number] Pain Pain Problem 07/22/2019 12:0 0:00 AM EDT - 01/22/2020 12:00:00 AM EST [facility] ([facility]) [id number] Disorder of glenohumeral joint Disorder of Glenohumera l Joint Problem 07/11/2019 12:00:00 AM EDT - 01/22/2020 12:00:00 AM EST [place] ([facility]) [id number] Disorder of glenohumeral joint Disorder of Glenohumera l Joint Problem 07/11/2019 12:00:00 AM EDT - 01/22/2020 12:00:00 AM [place] ([facility]) [id number] Disorder of glenohumeral joint Disorder of Glenohumera l Joint Problem 07/11/2019 12:00:00 AM EDT - 01/22/2020 12:00:00 AM EST [place] ([facility]) [id number] Disorder of glenohumeral joint Disorder of Glenohumera l Joint Problem 07/11/2019 12:00:00 AM EDT - 01/22/2020 12:00:00 AM [place] ([facility]) [id number] Disorder of glenohumeral joint Disorder of Glenohumera l Joint Problem 07/11/2019 12:00:00 AM EDT - 01/22/2020 12:00:00 AM [place] ([facility]) [id number] Disorder of glenohumeral joint Disorder of Glenohumera l Joint Problem 07/11/2019 12:00:00 AM EDT - 01/22/2020 12:00:00 AM [place] ([facility]) [id number] Disorder of glenohumeral joint Disorder of Glenohumera l Joint Problem 07/11/2019 12:00:00 AM EDT - 01/22/2020 12:00:00 AM EST [place] [facility] [facility] [id number] Disorder of glenohumeral joint Disorder of Glenohumera l Joint Problem 07/11/2019 12:00:00 AM EDT - 01/22/2020 12:00:00 AM [place] ([facility]) [id number] Disorder of glenohumeral joint Disorder of Glenohumera l Joint Problem 07/11/2019 12:00:00 AM EDT - 01/22/2020 12:00:00 AM EST [place] ([facility]) [id number] Disorder of glenohumeral joint Disorder of Glenohumera l Joint Problem 07/11/2019 12:00:00 AM EDT - 01/22/2020 12:00:00 AM [place] ([facility]) [id number] Dizziness and giddiness Dizziness and Giddiness Proble m 05/22/2019 12:00:00 AM EDT - 01/22/2020 12:00:00 AM EST [place] ([facility]) [id number] Dizziness and giddiness Dizziness and Giddiness Proble 05/22/2019 12:00:00 AM EDT - 01/22/2020 12:00:00 AM EST [place] ([facility]) [id number] Dizziness and giddiness Dizziness and Giddiness Proble 05/22/2019 12:00:00 AM EDT - 01/22/2020 12:00:00 AM EST [place] ([facility]) [id number] Dizziness and giddiness Dizziness and Giddiness Proble 05/22/2019 12:00:00 AM EDT 01/22/2020 12:00:00 AM EST [place] ([facility]) [id number] Dizziness and giddiness Dizziness and Giddiness Proble 05/22/2019 12:00:00 AM EDT - 01/22/2020 12:00:00 AM EST [place] ([facility]) [id number] Dizziness and giddiness Dizziness and Giddiness Proble 05/22/2019 12:00:00 AM EDT - 01/22/2020 12:00:00 AM EST [place] ([facility]) [id number] Dizziness and giddiness Dizziness and Giddiness Proble 05/22/2019 12:00:00 AM EDT - 01/22/2020 12:00:00 AM EST [place] ([facility]) [id number] Dizziness and giddiness Dizziness and Giddiness Proble 05/22/2019 12:00:00 AM EDT - 01/22/2020 12:00:00 AM EST [place] ([facility]) [id number] Dizziness and giddiness Dizziness and Giddiness Proble 05/22/2019 12:00:00 AM EDT - 01/22/2020 12:00:00 AM EST [place] ([facility]) [id number] Dizziness and giddiness Dizziness and Giddiness Proble 05/22/2019 12:00:00 AM EDT - 01/22/2020 12:00:00 AM EST [place] ([facility]) [id number] Emotional state finding Emotional State Finding Proble 05/14/2019 12:00:00 AM EST - 05/03/2020 12:00:00 AM EST [place] ([facility]) [id number] Emotional state finding Emotional State Finding Proble 05/14/2019 12:00:00 AM EST - 05/03/2020 12:00:00 AM EST [place] ([facility]) [id number] Emotional state finding Emotional State Finding Proble 05/14/2019 12:00:00 AM EST - 05/03/2020 12:00:00 AM EST [place] ([facility]) [id number] Emotional state finding Emotional State Finding Proble 05/14/2019 12:00:00 AM EST - 05/03/2020 12:00:00 AM EST [place] ([facility]) [id number] Emotional state finding Emotional State Finding Proble 05/14/2019 12:00:00 AM EST - 05/03/2020 12:00:00 AM EST [place] ([facility]) [id number] Emotional state finding Emotional State Finding Proble 05/14/2019 12:00:00 AM EST - 05/03/2020 12:00:00 AM EST [place] ([facility]) [id number] Emotional state finding Emotional State Finding Proble 05/14/2019 12:00:00 AM EST - 05/03/2020 12:00:00 AM EST [place] ([facility]) [id number] Emotional state finding Emotional State Finding Proble 05/14/2019 12:00:00 AM EST - 05/03/2020 12:00:00 AM EST [place] ([facility]) [id number] Emotional state finding Emotional State Finding Proble 05/14/2019 12:00:00 AM EST - 05/03/2020 12:00:00 AM EST [place] ([facility]) [id number] Finding of neck region Finding of Neck Region Problem 04/30/2019 12:00:00 AM EST - 05/03/2020 12:00:00 AM EST [place] ([facility]) [id number] Acute streptococcal bronchitis Acute Streptococcal Bro nchitis Problem 04/30/2019 12:00:00 AM EST - 01/22/2020 12:00:00 AM EST [place] ([facility]) [id number] Finding of neck region Finding of Neck Region Problem 04/30/2019 12:00:00 AM EST - 05/03/2020 12:00:00 AM EST [place] ([facility]) [id number] Acute streptococcal bronchitis Acute Streptococcal Bro nchitis Problem 04/30/2019 12:00:00 AM EST - 01/22/2020 12:00:00 AM EST [place] ([facility]) [id number] Finding of neck region Finding of Neck Region Problem 04/30/2019 12:00:00 AM EST - 05/03/2020 12:00:00 AM EST [place] ([facility]) [id number] Acute streptococcal bronchitis Acute Streptococcal Bro nchitis Problem 04/30/2019 12:00:00 AM EST - 01/22/2020 12:00:00 AM EST [place] ([facility]) [id number] Finding of neck region Finding of Neck Region Problem 04/30/2019 12:00:00 AM EST - 05/03/2020 12:00:00 AM EST [place] ([facility]) [id number] Acute streptococcal bronchitis Acute Streptococcal Bro nchitis Problem 04/30/2019 12:00:00 AM EST - 01/22/2020 12:00:00 AM EST [place] ([facility]) [id number] Finding of neck region Finding of Neck Region Problem 04/30/2019 12:00:00 AM EST - 05/03/2020 12:00:00 AM EST [place] ([facility]) [id number] Acute streptococcal bronchitis Acute Streptococcal Bro nchitis Problem 04/30/2019 12:00:00 AM EST - 01/22/2020 12:00:00 AM EST [place] ([facility]) [id number] Finding of neck region Finding of Neck Region Problem 04/30/2019 12:00:00 AM EST - 05/03/2020 12:00:00 AM EST [place] ([facility]) [id number] Acute streptococcal bronchitis Acute Streptococcal Bro nchitis Problem 04/30/2019 12:00:00 AM EST - 01/22/2020 12:00:00 AM EST [place] ([facility]) [id number] Finding of neck region Finding of Neck Region Problem 04/30/2019 12:00:00 AM EST - 05/03/2020 12:00:00 AM EST [place] ([facility]) [id number] Acute streptococcal bronchitis Acute Streptococcal Bro nchitis Problem 04/30/2019 12:00:00 AM EST - 01/22/2020 12:00:00 AM EST [place] ([facility]) [id number] Finding of neck region Finding of Neck Region Problem 04/30/2019 12:00:00 AM EST - 05/03/2020 12:00:00 AM EST [place] ([facility]) [id number] Acute streptococcal bronchitis Acute Streptococcal Bro nchitis Problem 04/30/2019 12:00:00 AM EST - 01/22/2020 12:00:00 AM EST [place] ([facility]) [id number] Finding of neck region Finding of Neck Region Problem 04/30/2019 12:00:00 AM EST - 05/03/2020 12:00:00 AM EST [place] ([facility]) [id number] Acute streptococcal bronchitis Acute Streptococcal Bro nchitis Problem 04/30/2019 12:00:00 AM EST - 01/22/2020 12:00:00 AM EST [place] ([facility]) [id number] Acute streptococcal bronchitis Acute Streptococcal Bro nchitis Problem 04/30/2019 12:00:00 AM EST - 01/22/2020 12:00:00 AM EST [place] ([facility]) [id number] Procedure Procedure Problem 02/11/2019 12:0 0:00 AM EST - 01/22/2020 12:00:00 AM EST [place] ([facility]) [id number] Procedure Procedure Problem 02/11/2019 12:0 0:00 AM EST - 01/22/2020 12:00:00 AM EST [place] ([facility]) [id number] Procedure Procedure Problem 02/11/2019 12:0 0:00 AM EST - 01/22/2020 12:00:00 AM EST [place] ([facility]) [id number] Procedure Procedure Problem 02/11/2019 12:0 0:00 AM EST - 01/22/2020 12:00:00 AM EST [place] ([facility]) [id number] Procedure Procedure Problem 02/11/2019 12:0 0:00 AM EST - 01/22/2020 12:00:00 AM EST [place] ([facility]) [id number] Procedure Procedure Problem 02/11/2019 12:0 0:00 AM EST - 01/22/2020 12:00:00 AM EST [place] ([facility]) [id number] Procedure Procedure Problem 02/11/2019 12:0 0:00 AM EST - 01/22/2020 12:00:00 AM EST [place] ([facility]) [id number] Procedure Procedure Problem 02/11/2019 12:0 0:00 AM EST - 01/22/2020 12:00:00 AM EST [place] ([facility]) [id number] Procedure Procedure Problem 02/11/2019 12:0 0:00 AM EST - 01/22/2020 12:00:00 AM EST [place] ([facility]) [id number] Procedure Procedure Problem 02/11/2019 12:0 0:00 AM EST - 01/22/2020 12:00:00 AM EST [place] ([facility]) [id number] Headache Headache Problem 01/01/2019 12:0 0:00 AM EDT - 01/22/2020 12:00:00 AM EST [place] ([facility]) [id number] Headache Headache Problem 01/01/2019 12:0 0:00 AM EDT - 01/22/2020 12:00:00 AM EST [place] ([facility]) [id number] Headache Headache Problem 01/01/2019 12:0 0:00 AM EDT - 01/22/2020 12:00:00 AM EST [place] ([facility]) [id number] Headache Headache Problem 01/01/2019 12:0 0:00 AM EDT - 01/22/2020 12:00:00 AM EST [place] ([facility]) [id number] Headache Headache Problem 01/01/2019 12:0 0:00 AM EDT - 01/22/2020 12:00:00 AM EST [place] ([facility]) [id number] Headache Headache Problem 01/01/2019 12:0 0:00 AM EDT - 01/22/2020 12:00:00 AM EST [place] ([facility]) [id number] Headache Headache Problem 01/01/2019 12:0 0:00 AM EDT - 01/22/2020 12:00:00 AM EST [place] ([facility]) [id number] Headache Headache Problem 01/01/2019 12:0 0:00 AM EDT - 01/22/2020 12:00:00 AM EST [place] ([facility]) [id number] Headache Headache Problem 01/01/2019 12:0 0:00 AM EDT - 01/22/2020 12:00:00 AM EST [place] ([facility]) [id number] Headache Headache Problem 01/01/2019 12:0 0:00 AM EDT - 01/22/2020 12:00:00 AM EST [place] ([facility]) [id number] Clinical finding Clinical Finding Problem 12:00:00 AM EDT - 05/03/2020 12:00:00 AM EST [place] ([facility]) [id number] SNOMED CT Concept SNOMED CT Concept Problem 10/18 12:00:00 AM EDT - 01/22/2020 12:00:00 AM EST [place] ([facility]) [id number] Clinical finding Clinical Finding Problem 12:00:00 AM EDT - 05/03/2020 12:00:00 AM EST [place] ([facility]) [id number] SNOMED CT Concept SNOMED CT Concept Problem 10/18 12:00:00 AM EDT - 01/22/2020 12:00:00 AM EST [place] ([facility]) [id number] Clinical finding Clinical Finding Problem 019 12:00:00 AM EDT - 05/03/2020 12:00:00 AM EST [place] ([facility]) [id number] SNOMED CT Concept SNOMED CT Concept Problem 10/18 12:00:00 AM EDT - 01/22/2020 12:00:00 AM EST [place] ([facility]) [id number] Clinical finding Clinical Finding Problem 12:00:00 AM EDT - 05/03/2020 12:00:00 AM EST [place] ([facility]) [id number] SNOMED CT Concept SNOMED CT Concept Problem 10/18 12:00:00 AM EDT - 01/22/2020 12:00:00 AM EST [place] ([facility]) [id number] Clinical finding Clinical Finding Problem 019 12:00:00 AM EDT - 05/03/2020 12:00:00 AM EST [place] ([facility]) [id number] SNOMED CT Concept SNOMED CT Concept Problem 10/18 12:00:00 AM EDT - 01/22/2020 12:00:00 AM EST [place] ([facility]) [id number] Clinical finding Clinical Finding Problem 12:00:00 AM EDT - 05/03/2020 12:00:00 AM EST [place] ([facility]) [id number] SNOMED CT Concept SNOMED CT Concept Problem 10/18 12:00:00 AM EDT - 01/22/2020 12:00:00 AM EST [place] ([facility]) [id number] Clinical finding Clinical Finding Problem 12:00:00 AM EDT - 05/03/2020 12:00:00 AM EST [place] ([facility]) [id number] SNOMED CT Concept SNOMED CT Concept Problem 10/18 12:00:00 AM EDT - 01/22/2020 12:00:00 AM EST [place] ([facility]) [id number] Clinical finding Clinical Finding Problem 12:00:00 AM EDT - 05/03/2020 12:00:00 AM EST [place] ([facility]) [id number] SNOMED CT Concept SNOMED CT Concept Problem 10/18 12:00:00 AM EDT - 01/22/2020 12:00:00 AM EST [place] ([facility]) [id number] Clinical finding Clinical Finding Problem 019 12:00:00 AM EDT - 05/03/2020 12:00:00 AM EST [place] ([facility]) [id number] SNOMED CT Concept SNOMED CT Concept Problem 10/18 12:00:00 AM EDT - 01/22/2020 12:00:00 AM EST [place] ([facility]) [id number] SNOMED CT Concept SNOMED CT Concept Problem 10/18 12:00:00 AM EDT - 01/22/2020 12:00:00 AM EST [place] ([facility]) [id number] Syncope and collapse Syncope and Collapse Problem 09/25/2018 12:00:00 AM EDT - 01/22/2020 12:00:00 AM EST [place] ([facility]) [id number] Syncope and collapse Syncope and Collapse Problem 09/25/2018 12:00:00 AM EDT - 01/22/2020 12:00:00 AM EST [place] ([facility]) [id number] Syncope and collapse Syncope and Collapse Problem 09/25/2018 12:00:00 AM EDT - 01/22/2020 12:00:00 AM EST [place] ([facility]) [id number] Syncope and collapse Syncope and Collapse Problem 09/25/2018 12:00:00 AM EDT - 01/22/2020 12:00:00 AM EST [place] ([facility]) [id number] Syncope and collapse Syncope and Collapse Problem 09/25/2018 12:00:00 AM EDT - 01/22/2020 12:00:00 AM EST [place] ([facility]) [id number] Syncope and collapse Syncope and Collapse Problem 09/25/2018 12:00:00 AM EDT - 01/22/2020 12:00:00 AM EST [place] ([facility]) [id number] Syncope and collapse Syncope and Collapse Problem 09/25/2018 12:00:00 AM EDT - 01/22/2020 12:00:00 AM EST [place] ([facility]) [id number] Syncope and collapse Syncope and Collapse Problem 09/25/2018 12:00:00 AM EDT - 01/22/2020 12:00:00 AM EST [place] ([facility]) [id number] Syncope and collapse Syncope and Collapse Problem 09/25/2018 12:00:00 AM EDT - 01/22/2020 12:00:00 AM EST [place] ([facility]) [id number] Syncope and collapse Syncope and Collapse Problem 09/25/2018 12:00:00 AM EDT - 01/22/2020 12:00:00 AM EST [place] ([facility]) [id number] Under immunized Under Immunized Problem 9 12:00:00 AM EST - 01/22/2020 12:00:00 AM EST [place] ([facility]) [id number] Under immunized Under Immunized Problem 9 12:00:00 AM EST - 01/22/2020 12:00:00 AM EST [place] ([facility]) [id number] Under immunized Under Immunized Problem 9 12:00:00 AM EST - 01/22/2020 12:00:00 AM EST [place] ([facility]) [id number] Under immunized Under Immunized Problem 9 12:00:00 AM EST - 01/22/2020 12:00:00 AM EST [place] ([facility]) [id number] Under immunized Under Immunized Problem 9 12:00:00 AM EST - 01/22/2020 12:00:00 AM EST [place] ([facility]) [id number] Under immunized Under Immunized Problem 9 12:00:00 AM EST - 01/22/2020 12:00:00 AM EST [place] ([facility]) [id number] Under immunized Under Immunized Problem 9 12:00:00 AM EST - 01/22/2020 12:00:00 AM EST [place] ([facility]) [id number] Under immunized Under Immunized Problem 9 12:00:00 AM EST - 01/22/2020 12:00:00 AM EST [place] ([facility]) [id number] Under immunized Under Immunized Problem 9 12:00:00 AM EST - 01/22/2020 12:00:00 AM EST [place] ([facility]) [id number] Under immunized Under Immunized Problem 9 12:00:00 AM EST - 01/22/2020 12:00:00 AM EST [place] ([facility]) [id number] Chest pain Chest Pain Problem 03/20/2018 12:0 0:00 AM EST - 01/22/2020 12:00:00 AM EST [place] ([facility]) [id number] Chest pain Chest Pain Problem 03/20/2018 12:0 0:00 AM EST - 01/22/2020 12:00:00 AM EST [place] ([facility]) [id number] Chest pain Chest Pain Problem 03/20/2018 12:0 0:00 AM EST - 01/22/2020 12:00:00 AM EST [place] ([facility]) [id number] Chest pain Chest Pain Problem 03/20/2018 12:0 0:00 AM EST - 01/22/2020 12:00:00 AM EST [place] ([facility]) [id number] Chest pain Chest Pain Problem 03/20/2018 12:0 0:00 AM EST - 01/22/2020 12:00:00 AM EST [place] ([facility]) [id number] Chest pain Chest Pain Problem 03/20/2018 12:0 0:00 AM EST - 01/22/2020 12:00:00 AM EST [place] ([facility]) [id number] Chest pain Chest Pain Problem 03/20/2018 12:0 0:00 AM EST - 01/22/2020 12:00:00 AM EST [place] ([facility]) [id number] Chest pain Chest Pain Problem 03/20/2018 12:0 0:00 AM EST - 01/22/2020 12:00:00 AM EST [place] ([facility]) [id number] Chest pain Chest Pain Problem 03/20/2018 12:0 0:00 AM EST - 01/22/2020 12:00:00 AM EST [place] ([facility]) [id number] Chest pain Chest Pain Problem 03/20/2018 12:0 0:00 AM EST - 01/22/2020 12:00:00 AM EST [place] ([facility]) [id number] Breast neoplasm screening status Breast Neoplasm Screening Status Problem 12/26/2017 12:00:00 AM EDT - 01/22/2020 12:00:00 AM [place] ([facility]) [id number] Breast neoplasm screening status Breast Neoplasm Screening Status Problem 12/26/2017 12:00:00 AM EDT - 01/22/2020 12:00:00 AM ES [place] ([facility]) [id number] Breast neoplasm screening status Breast Neoplasm Screening Status Problem 12/26/2017 12:00:00 AM EDT - 01/22/2020 12:00:00 AM ES T [place] ([facility]) [id number] Breast neoplasm screening status Breast Neoplasm Screening Status Problem 12/26/2017 12:00:00 AM EDT - 01/22/2020 12:00:00 AM ES [place] ([facility]) [id number] Breast neoplasm screening status Breast Neoplasm Screening Status Problem 12/26/2017 12:00:00 AM EDT - 01/22/2020 12:00:00 AM ES T [place] ([facility]) [id number] Breast neoplasm screening status Breast Neoplasm Screening Status Problem 12/26/2017 12:00:00 AM EDT - 01/22/2020 12:00:00 AM ES [place] ([facility]) [id number] Breast neoplasm screening status Breast Neoplasm Screening Status Problem 12/26/2017 12:00:00 AM EDT - 01/22/2020 12:00:00 AM ES T [place] ([facility]) [id number] Breast neoplasm screening status Breast Neoplasm Screening Status Problem 12/26/2017 12:00:00 AM EDT - 01/22/2020 12:00:00 AM ES T [place] ([facility]) [id number] Breast neoplasm screening status Breast Neoplasm Screening Status Problem 12/26/2017 12:00:00 AM EDT - 01/22/2020 12:00:00 AM ES T [place] ([facility]) [id number] Breast neoplasm screening status Breast Neoplasm Screening Status Problem 12/26/2017 12:00:00 AM EDT - 01/22/2020 12:00:00 AM ES T [place] ([facility]) [id number] SNOMED CT Concept SNOMED CT Concept Problem 11/21 12:00:00 AM EDT - 01/22/2020 12:00:00 AM EST [place] ([facility]) [id number] SNOMED CT Concept SNOMED CT Concept Problem 11/21 12:00:00 AM EDT - 01/22/2020 12:00:00 AM EST [place] ([facility]) [id number] SNOMED CT Concept SNOMED CT Concept Problem 11/21 12:00:00 AM EDT - 01/22/2020 12:00:00 AM EST [place] ([facility]) [id number] SNOMED CT Concept SNOMED CT Concept Problem 11/21 12:00:00 AM EDT - 01/22/2020 12:00:00 AM EST [place] ([facility]) [id number] SNOMED CT Concept SNOMED CT Concept Problem 11/21 12:00:00 AM EDT - 01/22/2020 12:00:00 AM EST [place] ([facility]) [id number] SNOMED CT Concept SNOMED CT Concept Problem 11/21 12:00:00 AM EDT - 01/22/2020 12:00:00 AM EST [place] ([facility]) [id number] SNOMED CT Concept SNOMED CT Concept Problem 11/21 12:00:00 AM EDT - 01/22/2020 12:00:00 AM EST [place] ([facility]) [id number] SNOMED CT Concept SNOMED CT Concept Problem 11/21 12:00:00 AM EDT - 01/22/2020 12:00:00 AM EST [place] ([facility]) [id number] SNOMED CT Concept SNOMED CT Concept Problem 11/21 12:00:00 AM EDT - 01/22/2020 12:00:00 AM EST [place] ([facility]) [id number] SNOMED CT Concept SNOMED CT Concept Problem 11/21 12:00:00 AM EDT - 01/22/2020 12:00:00 AM EST [place] ([facility]) [id number] Finding of esophagus Finding of Esophagus Problem 08/30/2017 12:00:00 AM EDT - 05/03/2020 12:00:00 AM EST [place] ([facility]) [id number] Diarrhea Diarrhea Problem 08/30/2017 12:0 0:00 AM EDT - 01/22/2020 12:00:00 AM EST [place] ([facility]) [id number] Acute bronchitis Acute Bronchitis Problem 018 12:00:00 AM EDT - 01/22/2020 12:00:00 AM EST [place] ([facility]) [id number] Atrial fibrillation Atrial Fibrillation Problem 0 08/30/2017 12:00:00 AM EDT - 01/22/2020 12:00:00 AM EST [place] ([facility]) [id number] Finding of esophagus Finding of Esophagus Problem 08/30/2017 12:00:00 AM EDT - 05/03/2020 12:00:00 AM EST [place] ([facility]) [id number] Diarrhea Diarrhea Problem 08/30/2017 12:0 0:00 AM EDT - 01/22/2020 12:00:00 AM EST [place] ([facility]) [id number] Acute bronchitis Acute Bronchitis Problem 018 12:00:00 AM EDT - 01/22/2020 12:00:00 AM EST [place] ([facility]) [id number] Atrial fibrillation Atrial Fibrillation Problem 0 08/30/2017 12:00:00 AM EDT - 01/22/2020 12:00:00 AM EST [place] ([facility]) [id number] Acute bronchitis Acute Bronchitis Problem 018 12:00:00 AM EDT - 01/22/2020 12:00:00 AM EST [place] ([facility]) [id number] Atrial fibrillation Atrial Fibrillation Problem 0 08/30/2017 12:00:00 AM EDT - 01/22/2020 12:00:00 AM EST [place] ([facility]) [id number] Finding of esophagus Finding of Esophagus Problem 08/30/2017 12:00:00 AM EDT - 05/03/2020 12:00:00 AM EST [place] ([facility]) [id number] Diarrhea Diarrhea Problem 08/30/2017 12:0 0:00 AM EDT - 01/22/2020 12:00:00 AM EST [place] ([facility]) [id number] Acute bronchitis Acute Bronchitis Problem 018 12:00:00 AM EDT - 01/22/2020 12:00:00 AM EST [facility] ([facility] er) [id number] Atrial fibrillation Atrial Fibrillation Problem 0 08/30/2017 12:00:00 AM EDT - 01/22/2020 12:00:00 AM EST [facility] ([facility] er) [id number] Finding of esophagus Finding of Esophagus Problem 08/30/2017 12:00:00 AM EDT - 05/03/2020 12:00:00 AM EST [facility] ([facility] er) [id number] Diarrhea Diarrhea Problem 08/30/2017 12:0 0:00 AM EDT - 01/22/2020 12:00:00 AM EST [facility] ([facility] er) [id number] Acute bronchitis Acute Bronchitis Problem 018 12:00:00 AM EDT - 01/22/2020 12:00:00 AM EST [facility] ([facility] er) [id number] Atrial fibrillation Atrial Fibrillation Problem 0 08/30/2017 12:00:00 AM EDT - 01/22/2020 12:00:00 AM EST [facility] ([facility] er) [id number] Finding of esophagus Finding of Esophagus Problem 08/30/2017 12:00:00 AM EDT - 05/03/2020 12:00:00 AM EST [facility] ([facility] er) [id number] Diarrhea Diarrhea Problem 08/30/2017 12:0 0:00 AM EDT - 01/22/2020 12:00:00 AM EST [facility] ([facility] er) [id number] Finding of esophagus Finding of Esophagus Problem 08/30/2017 12:00:00 AM EDT - 05/03/2020 12:00:00 AM EST [facility] ([facility] er) [id number] Diarrhea Diarrhea Problem 08/30/2017 12:0 0:00 AM EDT - 01/22/2020 12:00:00 AM EST [facility] ([facility] er) [id number] Acute bronchitis Acute Bronchitis Problem 018 12:00:00 AM EDT - 01/22/2020 12:00:00 AM EST [facility] ([facility] er) [id number] Atrial fibrillation Atrial Fibrillation Problem 0 08/30/2017 12:00:00 AM EDT - 01/22/2020 12:00:00 AM EST [facility] ([facility] er) [id number] Finding of esophagus Finding of Esophagus Problem 08/30/2017 12:00:00 AM EDT - 05/03/2020 12:00:00 AM EST [facility] ([facility] er) [id number] Diarrhea Diarrhea Problem 08/30/2017 12:0 0:00 AM EDT - 01/22/2020 12:00:00 AM EST [facility] ([facility] er) [id number] Acute bronchitis Acute Bronchitis Problem 018 12:00:00 AM EDT - 01/22/2020 12:00:00 AM EST [facility] ([facility] er) [id number] Atrial fibrillation Atrial Fibrillation Problem 0 08/30/2017 12:00:00 AM EDT - 01/22/2020 12:00:00 AM EST [facility] ([facility] er) [id number] Acute bronchitis Acute Bronchitis Problem 018 12:00:00 AM EDT - 01/22/2020 12:00:00 AM EST [facility] ([facility] er) [id number] Atrial fibrillation Atrial Fibrillation Problem 0 08/30/2017 12:00:00 AM EDT - 01/22/2020 12:00:00 AM EST [facility] ([facility] er) [id number] Finding of esophagus Finding of Esophagus Problem 08/30/2017 12:00:00 AM EDT - 05/03/2020 12:00:00 AM EST [facility] ([facility] er) [id number] Diarrhea Diarrhea Problem 08/30/2017 12:0 0:00 AM EDT - 01/22/2020 12:00:00 AM EST [facility] ([facility] er) [id number] Acute bronchitis Acute Bronchitis Problem 018 12:00:00 AM EDT - 01/22/2020 12:00:00 AM EST [facility] ([facility] er) [id number] Atrial fibrillation Atrial Fibrillation Problem 0 08/30/2017 12:00:00 AM EDT - 01/22/2020 12:00:00 AM EST [facility] ([facility] er) [id number] Diarrhea Diarrhea Problem 08/30/2017 12:0 0:00 AM EDT - 01/22/2020 12:00:00 AM CAROLINA COVINGTON ([facility] er) [id number] Acute bronchitis Acute Bronchitis Problem 018 12:00:00 AM EDT - 01/22/2020 12:00:00 AM [place]OLINA COV[place] ([facility] er) [id number] Atrial fibrillation Atrial Fibrillation Problem 0 08/30/2017 12:00:00 AM EDT - 01/22/2020 12:00:00 AM CAROLINA COV[place] ([facility] er) [id number] Finding of esophagus Finding of Esophagus Problem 08/30/2017 12:00:00 AM EDT - 05/03/2020 12:00:00 AM [place]OLINA COV[place] ([facility] er) [id number] Diarrhea Diarrhea Problem 08/30/2017 12:0 0:00 AM EDT - 01/22/2020 12:00:00 AM EST [facility] ([facility] er) Surgeries/Procedures Procedure Description Date Indications Data Source(s) MHC Telemed E/M Lvl 3--Est pt 11/30/2020 12:00:00 AM EDT - 11/30/2020 12:00:00 AM EDT [facility] ([facility]) MHC Telemed E/M Lvl 3--Est pt 11/30/2020 12:00:00 AM E DT [facility] ([facility]) MHC Telemed E/M Lvl 3--Est pt 09/28/2020 12:00:00 AM EDT - 09/28/2020 12:00:00 AM EDT [facility] ([facility]) [facility] Telemed E/M Lvl 3--Est pt 09/28/2020 12:00:00 AM E DT [facility] ([facility]) Extended Individual Psychotherapy - 45 min 09/23/2020 12:00:00 AM EDT - 09/23/2020 12:00:00 AM EDT [facility] ([facility]) Extended Individual Psychotherapy - 45 min 12:00:00 AM EDT [facility] ([facility]) Pain Procedure Log 09/22/2020 12:00:00 AM EDT eCW1 ([facility]) Unclassified drugs 09/08/2020 12:00:00 AM EDT eCW1 ([facility]) Completion of procedural visit when meets criteria 09/08/2020 12:00:00 AM EDT eCW1 ([facility]) MHC Telemed E/M Lvl 3--Est pt 08/31/2020 12:00:00 AM EDT - 08/31/2020 12:00:00 AM EDT [facility] ([facility]) MHC Telemed E/M Lvl 3--Est pt 08/31/2020 12:00:00 AM E DT [facility] ([facility]) Inject/Drain Arthrocentesis Major Joint/Bursa/Ganglion Cyst 08/27/2020 12:00:00 AM EDT [facility] ([facility], ) CT ABDOMEN PELVIS WO CONTRAST CT ABDOMEN PELVIS WO CONTRAST 08/16/2020 06:25:21 PM EDT [facility] BLADDER SCAN BLADDER SCAN 08/16/2020 05:37:03 PM EDT [facility] SARS-COV-2 BY NAAT SARS-COV-2 BY NAAT 08/16/2020 05:08:52 PM EDT [facility] COVID-19 ORDERABLE [facility] COVID-19 ORDERABLE [facility] 08/16/2020 05:08:51 P M EDT [facility] BLOOD CULTURE BLOOD CULTURE 08/16/2020 05:05:00 PM EDT [facility] LACTIC ACID, VENOUS LACTIC ACID, VENOUS 08/16/2020 05:05:00 PM EDT [facility] CBC AUTO DIFF CBC AUTO DIFF 08/16/2020 05:05:00 PM EDT [facility] C-REACTIVE PROTEIN C-REACTIVE PROTEIN 08/16/2020 05:05:00 PM EDT [facility] LIPASE LIPASE 08/16/2020 05:05:00 PM EDT [facility] COMPREHENSIVE METABOLIC PANEL COMPREHENSIVE METABOLIC PANEL 08/16/2020 05:05:00 PM EDT [facility] CBC WITH AUTO DIFFERENTIAL CBC WITH AUTO DIFFERENTIAL 2020 05:05:00 PM EDT [facility] YELLOW TOP YELLOW TOP 08/16/2020 05:04:00 PM EDT U [facility] EXTRA TUBES EXTRA TUBES 08/16/2020 05:04:00 PM EDT U [facility] URINALYSIS MICROSCOPIC AUTOMATED URINALYSIS MICROSCOPIC AUTO MATED 08/16/2020 04:39:00 PM EDT [facility] URINALYSIS WITH REFLEX MICROSCOPIC URINALYSIS WITH REFLEX NM CROSCOPIC 08/16/2020 04:39:00 PM EDT [facility] URINE CULTURE URINE CULTURE 08/16/2020 04:39:00 PM EDT [facility] PREVENT MED GEOLOGICAL ENGINEER&/RISK FACTOR REDJ SPX 30 MIN 08/03/2020 12:00:00 AM EDT - 08/03/2020 12:00:00 AM EDT [facility] ([facility]) PREVENT MED GEOLOGICAL ENGINEER&/RISK FACTOR REDJ SPX 30 MIN 08/03 12:00:00 AM EDT [facility] ([facility]) MHC Telemed E/M Lvl 3--Est pt 08/03/2020 12:00:00 AM EDT - 08/03/2020 12:00:00 AM EDT [facility] ([facility]) MHC Telemed E/M Lvl 3--Est pt 08/03/2020 12:00:00 AM E DT [facility] ([facility]) Extended Individual Psychotherapy - 45 min 07/21/2020 12:00:00 AM EDT - 07/21/2020 12:00:00 AM EDT [facility] ([facility]) Extended Individual Psychotherapy - 45 min 12:00:00 AM EDT [facility] ([facility]) Brief Individual Psychotherapy - 30 min 07/05/2020 12:00:00 AM EDT - 07/05/2020 12:00:00 AM EDT [facility] ([facility]) Brief Individual Psychotherapy - 30 min 07/05/2020 12: 00:00 AM EDT [facility] ([facility]) MHC Telemed E/M Lvl 3--Est pt 06/08/2020 12:00:00 AM EDT - 06/08/2020 12:00:00 AM EDT [facility] ([facility]) MHC Telemed E/M Lvl 3--Est pt 06/08/2020 12:00:00 AM E DT [facility] ([facility]) Pain Procedure Log 05/20/2020 12:00:00 AM EST eCW1 ([facility]) MHC Telemed E/M Lvl 3--Est pt 05/11/2020 12:00:00 AM EST - 05/11/2020 12:00:00 AM EST [facility] ([facility]) MHC Telemed E/M Lvl 3--Est pt 05/11/2020 12:00:[address] [facility] ([facility]) US, liver 05/03/2020 12:00:00 AM EST A THENA ([facility]) IV Lactated Ringer's Wide Open 04/23/2020 12:00:00 AM EST eCW1 ([facility]) Extended Individual Psychotherapy - 45 min 04/14/2020 12:00:00 AM EST - 04/14/2020 12:00:00 AM EST [facility] ([facility]) Extended Individual Psychotherapy - 45 min 12:00:00 AM EST [facility] ([facility]) MHC Telemed E/M Lvl 3--Est pt 04/13/2020 12:00:00 AM EST - 04/13/2020 12:00:00 AM EST [facility] ([facility]) MHC Telemed E/M Lvl 3--Est pt 04/13/2020 12:00:[address] [facility] ([facility]) Extended Individual Psychotherapy - 45 min 03/30/2020 12:00:00 AM EST - 03/30/2020 12:00:00 AM EST [facility] ([facility]) Extended Individual Psychotherapy - 45 min 12:00:00 AM EST [facility] ([facility]) Extended Individual Psychotherapy - 45 min 03/08/2020 12:00:00 AM EST - 03/08/2020 12:00:00 AM EST [facility] ([facility]) Extended Individual Psychotherapy - 45 min 0 12:00:00 AM EST [facility] ([facility]) Extended Individual Psychotherapy - 45 min 02/18/2020 12:00:00 AM EST - 02/18/2020 12:00:00 AM EST [facility] ([facility]) Extended Individual Psychotherapy - 45 min 0 12:00:00 AM EST [facility] ([facility]) Unclassified drugs 02/03/2020 12:00:00 AM EST eCW1 ([facility]) IV Lactated Ringer's at [facility] 02/03/2020 12:00:00 AM EST eCW1 ([facility]) Brief Individual Psychotherapy - 30 min 01/13/2020 12:00:00 AM EST - 01/13/2020 12:00:00 AM EST [facility] ([facility]) Brief Individual Psychotherapy - 30 min 01/13/2020 12: 00:00 AM EST [facility] ([facility]) Spirometry 01/06/2020 12:00:00 AM EDT M EDENT ([facility], ) Aerosol Or Vapor Inhalations 01/06/2020 12:00:00 AM ED T MEDENT ([facility], ) MHC Telemed E/M Lvl 3--Est pt 12/18/2019 12:00:00 AM EDT - 12/18/2019 12:00:00 AM EDT [facility] ([facility]) MHC Telemed E/M Lvl 3--Est pt 12/18/2019 12:00:00 AM E DT [facility] ([facility]) Extended Individual Psychotherapy - 45 min 12/12/2019 12:00:00 AM EDT - 12/12/2019 12:00:00 AM EDT [facility] ([facility]) Extended Individual Psychotherapy - 45 min 0 12:00:00 AM EDT [facility] ([facility]) Extended Individual Psychotherapy - 45 min 12/09/2019 12:00:00 AM EDT - 12/09/2019 12:00:00 AM EDT [facility] ([facility]) Extended Individual Psychotherapy - 45 min 12:00:00 AM EDT [facility] ([facility]) [facility] Telemed E/M Lvl 3--Est pt 11/27/2019 12:00:00 AM EDT - 11/27/2019 12:00:00 AM EDT [facility] ([facility]) [facility] Telemed E/M Lvl 3--Est pt 11/27/2019 12:00:00 AM E DT [facility] ([facility]) Results ID Date Data Source [id number] 11/24/2020 12:00:00 AM EDT [facility]) Name Value Range Interpretation Code Description Data Elizabeth rce(s) Supporting Document(s) Bacteria identified in Urine by Culture Reflexive Urine Culture [facility]) ID Date Data Source [id number] 11/24/2020 12:00:00 AM EDT [facility]) Name Value Range Interpretation Code Description Data Elizabeth rce(s) Supporting Document(s) Color of Urine yellow yellow Color [facility] ([facility]) Appearance of Urine turbid clear Abnormal (applies to non-numeric results) Appearance [facility] ([facility]) Specific gravity of Urine by Test strip 1.001-1.035 Specific [place] [facility] ([facility]) Glucose [Presence] in Urine by Test strip negative negative Glucose [facility] ([facility]) pH of Urine by Test strip < or = 5.0 5.0-8.0 Ph [place] ([facility]) Bilirubin.total [Presence] in Urine by Test strip negative negative Bilirubin [facility] ([facility]) Ketones [Presence] in Urine by Test strip negative negative Ketones [facility] ([facility]) Hemoglobin [Presence] in Urine by Test strip negative negative Occult Blood [facility] ([facility]) Protein [Presence] in Urine by Test strip negative negative Protein [facility] ([facility]) Nitrite [Presence] in Urine by Test strip negative negative Nitrite [facility] ([facility]) Leukocytes [#/area] in Urine sediment by Microscopy high pow er field 0-5 < or = 5 Wbc [facility] ([facility]) Leukocyte esterase [Presence] in Urine by Test strip negative n egative Leukocyte Esterase [facility] ([facility]) Erythrocytes [#/area] in Urine sediment by Microscopy high power field none seen < or = 2 Rbc [facility] ([facility]) Epithelial cells.squamous [#/area] in Ur ine sediment by Microscopy high power field 10-20 < or = 5 Abnormal (applies to non-numeric results) Squamous Epithelial Cells [place] ([facility]) Bacteria [#/area] in Urine sediment by Microscopy high power field few none seen Abnormal (applies to non-numeric results) Bacteria [facility] ([facility]) Hyaline casts [#/area] in Urine sediment by Microscopy low power field none seen none seen Hyaline Cast [facility] ([facility]) ID Date Data Source [id number] 11/11/2020 11:04:00 AM EDT [place] ([facility]) Name Value Range Interpretation Code Description Data Elizabeth rce(s) Supporting Document(s) appearance, urine rfx clear clear Appearance, Ur ine Rfx [place] ([facility]) color, urine rfx yellow yellow Color, Urine Rfx [place] ([facility]) pH,urine rfx 5.0 units 5.0-9.0 pH,urine Rfx [place] (No [facility]) specific gravity ur auto rfx 1.002-1.035 Specif ic [place] Ur Auto Rfx [facility] ([facility]) protein, urine auto rfx negative negative Protein, Uri ne Auto Rfx [place] ([facility]) glucose, urine (UA) auto rfx negative negative Glucose , Urine (UA) Auto Rfx [place] ([facility]) ketone, urine auto rfx negative negative Ketone, Urine Auto Rfx [place] ([facility]) bilirubin, urine auto rfx negative negative Bilirubin, Urine Auto Rfx [place] ([facility]) urobilinogen, urine auto rfx 0.2 mg/dL 0.0-2.0 Urobili nogen, Urine Auto Rfx [place] ([facility]) nitrite, urine auto rfx negative negative Nitrite, Uri ne Auto Rfx [place] ([facility]) leukocyte esterase ur auto rfx negative negative Leukocyte Esterase Ur Auto Rfx [place] ([facility]) blood, urine blood rfx 1+ negative Above high normal Blood, Urine Blood Rfx [place] ([facility]) WBC, urine auto rfx 0 /hpf 0-3 WBC, Urine Auto Rfx [place] ([facility]) RBC, urine auto rfx 0 /hpf 0-3 RBC, Urine Auto Rfx [place] ([facility]) squam epithelial cell ur aurfx 1 /hpf 0-6 Squam Epithelial Cell Ur Aurfx [place] ([facility]) bacteria, urine auto rfx 1+ negative Above high normal Bact eria, Urine Auto Rfx [place] ([facility]) mucus, urine rfx small negative Mucus, Urine Rfx AT [facility]) hyaline cast, urine auto rfx 0 /lpf 0-1 Hyaline Cast, Urine Auto Rfx [place] ([facility]) ID Date Data Source [id number] 11/11/2020 11:04:00 AM EDT [facility]) Name Value Range Interpretation Code Description Data Elizabeth rce(s) Supporting Document(s) appearance, urine rfx clear clear Appearance, Ur ine Rfx [place] ([facility]) color, urine rfx yellow yellow Color, Urine Rfx AT [facility] ([facility]) pH,urine rfx 5.0 units 5.0-9.0 pH,urine Rfx [place] ([facility]) specific gravity ur auto rfx 1.002-1.035 Specif ic [place] Ur Auto Rfx [place] ([facility]) protein, urine auto rfx negative negative Protein, Uri ne Auto Rfx [place] ([facility]) glucose, urine (UA) auto rfx negative negative Glucose , Urine (UA) Auto Rfx [place] ([facility]) ketone, urine auto rfx negative negative Ketone, Urine Auto Rfx [facility] ([facility]) urobilinogen, urine auto rfx 0.2 mg/dL 0.0-2.0 Urobili nogen, Urine Auto Rfx [facility] ([facility]) bilirubin, urine auto rfx negative negative Bilirubin, Urine Auto Rfx [facility] ([facility]) nitrite, urine auto rfx negative negative Nitrite, Uri ne Auto Rfx [facility] ([facility]) leukocyte esterase ur auto rfx negative negative Leukocyte Esterase Ur Auto Rfx [place] ([facility]) blood, urine blood rfx 1+ negative Above high normal Blood, Urine Blood Rfx [place] ([facility]) WBC, urine auto rfx 0 /hpf 0-3 WBC, Urine Auto Rfx [place] ([facility]) RBC, urine auto rfx 0 /hpf 0-3 RBC, Urine Auto Rfx [place] ([facility]) bacteria, urine auto rfx 1+ negative Above high normal Bact eria, Urine Auto Rfx [place] ([facility]) squam epithelial cell ur aurfx 1 /hpf 0-6 Squam Epithelial Cell Ur Aurfx [facility] ([facility]) mucus, urine rfx small negative Mucus, Urine Rfx AT [facility] ([facility]) hyaline cast, urine auto rfx 0 /lpf 0-1 Hyaline Cast, Urine Auto Rfx [place] ([facility]) ID Date Data Source [id number] 08/23/2020 12:00:00 AM EDT [place] ([facility]) Name Value Range Interpretation Code Description Data Elizabeth rce(s) Supporting Document(s) Bacteria identified in Urine by Culture see note Culture, Urine, Routine [facility]) ID Date Data Source [id number] 08/23/2020 12:00:00 AM EDT [facility]) Name Value Range Interpretation Code Description Data Eliazbeth rce(s) Supporting Document(s) comment Comment [facility] ([facility]) contact macy S Contact [facility] ([facility]) tests affected all Tests Affected [place] ([facility]) ID Date Data Source [id number] 08/23/2020 12:00:00 AM EDT [place] ([facility]) Name Value Range Interpretation Code Description Data Elizabeth rce(s) Supporting Document(s) Color of Urine tnp Color [facility] ([facility]) ID Date Data Source [id number] 08/23/2020 12:00:00 AM EDT [facility]) Name Value Range Interpretation Code Description Data Elizabeth rce(s) Supporting Document(s) Bacteria identified in Urine by Culture see note Culture, Urine, Routine [facility]) ID Date Data Source [id number] 08/23/2020 12:00:00 AM EDT [place] ([facility]) Name Value Range Interpretation Code Description Data Elizabeth rce(s) Supporting Document(s) comment Comment [facility] ([facility]) contact macy S Contact [facility] ([facility]) tests affected all Tests Affected [place] ([facility]) ID Date Data Source [id number] 08/23/2020 12:00:00 AM EDT [facility]) Name Value Range Interpretation Code Description Data Elizabeth rce(s) Supporting Document(s) Color of Urine tnp Color [facility] ([facility]) ID Date Data Source [id number] 08/23/2020 12:00:00 AM EDT [facility]) Name Value Range Interpretation Code Description Data Elizabeth rce(s) Supporting Document(s) Color of Urine tnp Color [facility] ([facility]) ID Date Data Source [id number] 08/23/2020 12:00:00 AM EDT [place] ([facility]) Name Value Range Interpretation Code Description Data Elizabeth rce(s) Supporting Document(s) Bacteria identified in Urine by Culture see note Culture, Urine, Routine [place] ([facility]) ID Date Data Source [id number] 08/23/2020 12:00:00 AM EDT [facility] ([facility]) Name Value Range Interpretation Code Description Data Elizabeth rce(s) Supporting Document(s) comment Comment [place] ([facility]) contact macy S Contact [place] ([facility]) tests affected all Tests Affected [place] ([facility]) ID Date Data Source [id number] 08/23/2020 12:00:00 AM EDT [facility] ([facility]) Name Value Range Interpretation Code Description Data Elizabeth rce(s) Supporting Document(s) Bacteria identified in Urine by Culture see note Culture, Urine, Routine [place] ([facility]) ID Date Data Source [id number] 08/23/2020 12:00:00 AM EDT [facility]) Name Value Range Interpretation Code Description Data Elizabeth rce(s) Supporting Document(s) comment Comment [place] ([facility]) contact macy S Contact [place] ([facility]) tests affected all Tests Affected [place] ([facility]) ID Date Data Source [id number] 08/23/2020 12:00:00 AM EDT [place] ([facility]) Name Value Range Interpretation Code Description Data Elizabeth rce(s) Supporting Document(s) Color of Urine tnp Color [place] ([facility]) ID Date Data Source [id number] 08/16/2020 06:47:35 PM EDT [facility] -REPORT:PROCEDURE: CT ABDOMEN PELVIS WO CONTRASTDATE AND TIME: 08/16/2020 6:20 PM EDTHISTORY: right flank pain, dysuria, hematuria. UTI. Fever. Pelvic pain.COMPARISON: NonePROCEDURE: CT of the abdomen and pelvis was performed without IVcontrast. Sagittal and coronal reformatted images were submitted forreview.FINDINGS:Evaluation of the abdominal and pelvic organs is limited on this studyperformed without intravenous contrast.There is some calcified granulomas present within the lung bases. Thereis a small pulmonary nodule measuring 4 mm present within the left lowerlobe abutting a calcified granuloma. Question of some faintcalcification within this nodule. A follow-up chest CT in one year canbe considered for further assessment particularly if the patient is highrisk. Some faint groundglass opacities within the bilateral lung baseswhich may represent mild atelectatic change versus infiltrates,correlate clinically. Small hiatal hernia.Status post cholecystectomy. Fatty liver with some areas of probablefocal fatty sparing. Some areas of fatty replacement of the pancreas.Spleen measures 13.2 cm in greatest axial dimension. Adrenal glands areunremarkable.Some nonspecific mild bilateral perinephric fat stranding. Limitedevaluation of the renal parenchyma on this noncontrast study. Norenal/ureteral calculi. No hydroureter or hydronephrosis.No small bowel obstruction. No acute appendicitis. Suggestion of a tinyappendicolith. Urinary bladder is nondistended, limiting its evaluation.Limited views of the patient is status post hysterectomy. No free air orfree fluid. Small fat-containing right inguinal hernia. Smallfat-containing ventral hernia. No abdominal aortic aneurysm. Nolymphadenopathy. Some degenerative changes of the osseous structures.Some dependent subcutaneous edema is noted over the posterior lowerback.IMPRESSION:No renal/ureteral calculi. No hydroureter or hydronephrosis.Some nonspecific mild bilateral perinephric fat stranding.Fatty liver.4 mm pulmonary nodule which is questionably partially calcified. Aone-year follow-up chest CT can be considered particularly if thepatient is high risk.Some faint groundglass opacities within the lung bases which mayrepresent mild atelectasis versus infiltrates.Additional findings as detailed above.TECHNICAL NOTE: This CT exam was performed using one or more of thefollowing dose reduction techniques: automated exposure control,adjustment of the mA and/or kV according to patient size, and/or useiterative reconstruction techniques.DWS: [id number] SIGNATURE: Ruperto Hassan Name Value Range Interpretation Code Description Data Elizabeth rce(s) Supporting Document(s) ID Date Data Source [id number] 08/21/2020 06:01:29 PM EDT [facility] Name Value Range Interpretation Code Description Data Elizabeth rce(s) Supporting Document(s) Acanthurus coeruleus (organism) [facility] ID Date Data Source [id number] 08/16/2020 05:43:19 PM EDT [facility] Name Value Range Interpretation Code Description Data Elizabeth rce(s) Supporting Document(s) C REACTIVE PROTEIN (MG/L) IN SER/PLAS <=0.9 Above hig h normal [facility] ID Date Data Source [id number] 08/16/2020 05:43:19 PM EDT [facility] Name Value Range Interpretation Code Description Data Elizabeth rce(s) Supporting Document(s) LIPASE (U/L) IN SER/PLAS <300 [facility] ID Date Data Source [id number] 08/16/2020 05:43:19 PM EDT [facility] Name Value Range Interpretation Code Description Data Elizabeth rce(s) Supporting Document(s) SODIUM (MMOL/L) IN SER/PLAS 135-146 Un Counts include [facility] beds at the [facility] POTASSIUM (MMOL/L) IN SER/PLAS 3.5-5.3 [facility] CHLORIDE (MMOL/L) IN SER/PLAS 98-107 Above high normal [facility] CARBON DIOXIDE, TOTAL (MMOL/L) IN SER/PLAS 21-32 [facility] ANION GAP IN SER/PLAS 5-15 [facility] UREA NITROGEN (MG/DL) IN SER/PLAS 7-23 [facility] CREATININE (MG/DL) IN SER/PLAS 0.5-1.0 [facility] UREA NITROGEN/CREATININE (MASS RATIO) IN SER/PLAS [facility] GLUCOSE (MG/DL) IN SER/PLAS 65-99 Above high normal [facility] CALCIUM (MG/DL) IN SER/PLAS 8.4-10.4 [facility] ASPARTATE AMINOTRANSFERASE (SGOT) (U/L) IN SER/PLAS <59 [facility] ALANINE AMINOTRANSFERASE (SGPT) (U/L) IN SER/PLAS <35 [facility] ALKALINE PHOSPHATASE (U/L) IN SER/PLAS 38-126 [facility] PROTEIN (G/DL) IN SER/PLAS 6.3-8.2 [facility] ALBUMIN (G/DL) IN SER/PLAS 3.5-5.0 [facility] ALBUMIN/GLOBULIN (G/G RATIO) IN SER/PLAS [facility] BILIRUBIN TOTAL (MG/DL) IN SER/PLAS 0.1-1.3 [facility] GLOMERULAR FILTRATION RATE ML/MIN/1.73 SQ M.PREDICTED >60 [facility] ID Date Data Source [id number] 08/16/2020 05:33:22 PM EDT [facility] Name Value Range Interpretation Code Description Data Elizabeth rce(s) Supporting Document(s) LACTATE (MMOL/L) IN VENOUS BLOOD 0.7-2.0 [facility] ID Date Data Source [id number] 08/16/2020 05:18:42 PM EDT [facility] Name Value Range Interpretation Code Description Data Elizabeth rce(s) Supporting Document(s) LEUKOCYTES(10*3/UL) IN BLOOD BY AUTOMATED COUNT 4.0-10.5 [facility] ERYTHROCYTES (10*6/UL) IN BLOOD BY AUTOMATED COUNT 4.00-5. 20 [facility] HEMOGLOBIN (G/DL) IN BLOOD 12.2-15.5 [facility] HEMATOCRIT (%) IN BLOOD BY AUTOMATED COUNT 35.0-47.0 [facility] ERYTHROCYTE MEAN CORPUSCULAR VOLUME (FL) BY AUTOMATED COUNT 77.0-100.0 [facility] ERYTHROCYTE MEAN CORPUSCULAR HEMOGLOBIN (PG) BY AUTOMATED COUNT 25.0-33.0 [facility] ERYTHROCYTE MEAN CORPUSCULAR HEMOGLOBIN CONCENTRATION (G/DL) BY AUTOMATED 31.0-36.0 [facility] ERYTHROCYTE DISTRIBUTION WIDTH (RATIO) BY AUTOMATED COUNT 12.0-17.0 [facility] PLATELET MEAN VOLUME (FL) IN BLOOD BY AUTOMATED COUNT 8.0- 12.0 [facility] NEUTROPHILS/100 LEUKOCYTES IN BLOOD BY AUTOMATED COUNT 35. 0-75.0 [facility] LYMPHOCYTES/100 LEUKOCYTES IN BLOOD BY AUTOMATED COUNT 20. 0-42.0 [facility] MONOCYTES/100 LEUKOCYTES IN BLOOD BY AUTOMATED COUNT 0.0-1 5.0 [facility] EOSINOPHILS/100 LEUKOCYTES IN BLOOD BY AUTOMATED COUNT <=1 0.0 [facility] BASOPHILS/100 LEUKOCYTES IN BLOOD BY AUTOMATED COUNT <=2.0 [facility] NEUTROPHILS (10*3/UL) IN BLOOD BY AUTOMATED COUNT 1.40-8.4 0 [facility] LYMPHOCYTES (10*3/UL) IN BLOOD BY AUTOMATED COUNT 1.00-4.0 0 [facility] MONOCYTES (10*3/UL) IN BLOOD BY AUTOMATED COUNT 0.00-1.50 [facility] EOSINOPHILS (10*3/UL) IN BLOOD BY AUTOMATED COUNT <=0.70 [facility] BASOPHILS (10*3/UL) IN BLOOD BY AUTOMATED COUNT <=0.10 [facility] PLATELETS (10*3/UL) IN BLOOD AUTOMATED COUNT 125-425 [facility] IMMATURE NEUTROPHILS/100 LEUKOCYTES IN BLOOD BY AUTOMATED COUNT <=0.5 [facility] IMMATURE NEUTROPHILS (10*3/UL) IN BLOOD BY AUTOMATED COUNT <=0.40 [facility] ID Date Data Source [id number] 08/16/2020 05:06:40 PM EDT [facility] Name Value Range Interpretation Code Description Data Elizabeth rce(s) Supporting Document(s) COLOR OF URINE Yellow, Light Yellow, Straw, Clear, Colorle ss, Dark Yellow [facility] CLARITY OF URINE Clear Abnormal (applies to non-numer ic results) [facility] PH OF URINE 5.0, 5.5, 6.0, 6.5, 7.0, 7.5 [facility] LEUKOCYTE ESTERASE PRESENCE IN URINE BY TEST STRIP Negative, Trace Abnormal (applies to non-numeric results) [facility] NITRITE PRESENCE IN URINE Negative [facility] PROTEIN IN URINE BY TEST STRIP Negative, Trace A bnormal (applies to non- numeric results) [facility] GLUCOSE IN URINE Normal [facility] BILIRUBIN, PRESENCE IN URINE Negative U nited [facility] SPECIFIC GRAVITY OF URINE 1.005-1.030 Above high normal [facility] KETONES (MG/DL) IN URINE Negative, Trace [facility] UROBILINOGEN (MG/DL) IN URINE Normal [facility] HEMOGLOBIN PRESENCE IN URINE Negative Abn ormal (applies to non-numeric results) [facility] ID Date Data Source [id number] 08/16/2020 05:14:43 PM EDT [facility] Name Value Range Interpretation Code Description Data Elizabeth rce(s) Supporting Document(s) RBC IN URINE SEDIMENT AUTOMATED <=2 Above high norm al [facility] WBC (LEUKOCYTE) IN URINE SEDIMENT AUTOMATED <=5 Abo ve high normal [facility] BACTERIA IN URINE AUTOMATED None Seen Abno rmal (applies to non-numeric results) [facility] MUCUS IN URINE SEDIMENT AUTOMATED [facility] ID Date Data Source [id number] 08/18/2020 08:32:15 AM EDT [facility] Name Value Range Interpretation Code Description Data Elizabeth rce(s) Supporting Document(s) URINE CULTURE [facility] rvices 10,000-100,000 CFU/mL Escherichia coliSu sceptibility performed ID Date Data Source [id number] 08/18/2020 08:32:15 AM EDT [facility] Name Value Range Interpretation Code Description Data Elizabeth rce(s) Supporting Document(s) Ampicillin [Susceptibility] Results entered -- not verified [facility] Cefazolin [Susceptibility] by Disk diffusion (KB) Susceptible. Indicates for microbiology susceptibilities only. [facility] Cefepime [Susceptibility] Suscep tible. Indicates for microbiology susceptibilities only. [facility] Ciprofloxacin [Susceptibility] S usceptible. Indicates for microbiology susceptibilities only. [facility] Ertapenem [Susceptibility] Susce ptible. Indicates for microbiology susceptibilities only. [facility] Gentamicin [Susceptibility] Susc eptible. Indicates for microbiology susceptibilities only. [facility] Levofloxacin [Susceptibility] Saucedo sceptible. Indicates for microbiology susceptibilities only. [facility] Meropenem [Susceptibility] Susce ptible. Indicates for microbiology susceptibilities only. [facility] Nitrofurantoin [Susceptibility] Susceptible. Indicates for microbiology susceptibilities only. [facility] Trimethoprim+Sulfamethoxazole [Susceptibility] Susceptible. Indicates for microbiology susceptibilities only. [facility] ID Date Data Source [id number] 07/21/2020 10:32:00 AM EDT [place] ([facility]) Name Value Range Interpretation Code Description Data Elizabeth rce(s) Supporting Document(s) white blood count 3.6 10 4.0-10.0 Below low normal White Blood Count [facility] ([facility]) red blood count 4.52 10 4.00-5.40 Red Blood Count [facility] ([facility]) hemoglobin 13.7 g/dL 12.0-15.5 Hemoglobin [facility] ([facility]) hematocrit 41.2 % 36.0-47.0 Hematocrit [facility] ([facility]) mean corpuscular volume 91.2 fL 80.0-96.0 Mean Corpusc ular Volume [facility] ([facility]) mean corpuscular hemoglobin 30.3 pg 27.0-33.0 Mean Cor puscular Hemoglobin [facility] ([facility]) mean corpuscular HGB conc 33.3 g/dL 32.0-36.5 Mean Corpu scular HGB Conc [facility] ([facility]) red cell distribution width 12.9 % 11.5-14.5 Red Cell Distribution Width [facility] ([facility]) platelet count, automated 166 10 150-450 Platelet C ount, Automated [facility] ([facility]) neutrophils % 49.9 % 36.0-66.0 Neutrophils % [facility] ( [facility]) lymph % 37.0 % 24.0-44.0 Lymph % [facility] ([facility]) eos % 1.9 % 0.0-3.0 Eos % [facility] ([facility]) mono % 10.3 % 2.0-8.0 Above high normal [place] % [facility] ([facility]) baso % 0.6 % 0.0-1.0 Baso % [facility] ([facility]) immature granulocyte % 0.3 % 0-3.0 Immature Gran ulocyte % [facility] ([facility]) nucleated red blood cell % 0.0 % 0-0 Nucleated Red Blood Cell % [facility] ([facility]) neutrophils # 1.8 10 1.5-8.5 Neutrophils # [facility] ( [facility]) lymph # 1.3 10 1.5-5.0 Below low normal Lymph # [facility] ( [facility]) eos # 0.1 10 0.0-0.5 Eos # [facility] ([facility]) mono # 0.4 10 0.0-0.8 [place] # [facility] ([facility]) baso # 0.0 10 0.0-0.2 Baso # [facility] ([facility]) ID Date Data Source [id number] 07/21/2020 10:32:00 AM EDT [place] ([facility]) Name Value Range Interpretation Code Description Data Elizabeth rce(s) Supporting Document(s) appearance, urine hazy clear Appearance, Urine [facility] ([facility]) color, urine straw yellow Color, Urine [facility] (No [facility]) specific gravity urine auto 1.002-1.035 Below low nor mal Specific [place] Urine Auto [facility] ([facility]) pH,urine 6.0 units 5.0-9.0 pH,urine [facility] ([facility]) protein, urine auto negative negative Protein, Urine A uto [facility] ([facility]) glucose, urine (UA) auto negative negative Glucose, Ur ine (UA) Auto [facility] ([facility]) ketone, urine auto negative negative Ketone, Urine Aut o [facility] ([facility]) urobilinogen, urine auto 0.2 mg/dL 0.0-2.0 Urobilinoge n, Urine Auto [facility] ([facility]) bilirubin, urine auto negative negative Bilirubin, Uri ne Auto [facility] ([facility]) nitrite, urine auto negative negative Nitrite, Urine A uto [facility] ([facility]) leukocyte esterase, urine auto 2+ negative Above high normal Leukocyte Esterase, Urine Auto [facility] ([facility]) blood, urine blood negative negative Blood, Urine Bloo d [facility] ([facility]) WBC, urine auto 4 /hpf 0-3 Above high normal WBC, Urine Au to [facility] ([facility]) RBC, urine auto 1 /hpf 0-3 RBC, Urine Auto [facility] ([facility]) bacteria, urine auto 1+ negative Above high normal Bacteria , Urine Auto [facility] ([facility]) squamous epithelial cell ur AU 2 /hpf 0-6 Squam ous Epithelial Cell Ur AU [facility] ([facility]) hyaline cast, urine auto 0 /lpf 0-1 Hyaline Avelino t, Urine Auto [facility] ([facility]) ID Date Data Source [id number] 07/21/2020 10:32:00 AM EDT [place] ([facility]) Name Value Range Interpretation Code Description Data Elizabeth rce(s) Supporting Document(s) white blood count 3.6 10 4.0-10.0 Below low normal White Blood Count [facility] ([facility]) red blood count 4.52 10 4.00-5.40 Red Blood Count [facility] ([facility]) hemoglobin 13.7 g/dL 12.0-15.5 Hemoglobin [facility] ([facility]) hematocrit 41.2 % 36.0-47.0 Hematocrit [facility] ([facility]) mean corpuscular volume 91.2 fL 80.0-96.0 Mean Corpusc ular Volume [facility] ([facility]) mean corpuscular hemoglobin 30.3 pg 27.0-33.0 Mean Cor puscular Hemoglobin [facility] ([facility]) mean corpuscular HGB conc 33.3 g/dL 32.0-36.5 Mean Corpu scular HGB Conc [facility] ([facility]) red cell distribution width 12.9 % 11.5-14.5 Red Cell Distribution Width [place] ([facility]) platelet count, automated 166 10 150-450 Platelet C ount, Automated [facility] ([facility]) neutrophils % 49.9 % 36.0-66.0 Neutrophils % [facility] ( [facility]) lymph % 37.0 % 24.0-44.0 Lymph % [facility] ([facility]) mono % 10.3 % 2.0-8.0 Above high normal [place] % [facility] ([facility]) eos % 1.9 % 0.0-3.0 Eos % [place] ([facility]) baso % 0.6 % 0.0-1.0 Baso % [place] ([facility]) nucleated red blood cell % 0.0 % 0-0 Nucleated Red Blood Cell % [facility] ([facility]) immature granulocyte % 0.3 % 0-3.0 Immature Gran ulocyte % [place] ([facility]) neutrophils # 1.8 10 1.5-8.5 Neutrophils # [place] ( [facility]) lymph # 1.3 10 1.5-5.0 Below low normal Lymph # [facility] ( [facility]) mono # 0.4 10 0.0-0.8 [place] # [facility] ([facility]) eos # 0.1 10 0.0-0.5 Eos # [facility] ([facility]) baso # 0.0 10 0.0-0.2 Baso # [facility] ([facility]) ID Date Data Source [id number] 07/21/2020 10:32:00 AM EDT [place] ([facility]) Name Value Range Interpretation Code Description Data Elizabeth rce(s) Supporting Document(s) appearance, urine hazy clear Appearance, Urine [place] ([facility]) color, urine straw yellow Color, Urine [facility] (No [facility]) pH,urine 6.0 units 5.0-9.0 pH,urine [facility] ([facility]) specific gravity urine auto 1.002-1.035 Below low nor mal Specific [place] Urine Auto [place] ([facility]) protein, urine auto negative negative Protein, Urine A uto [place] ([facility]) glucose, urine (UA) auto negative negative Glucose, Ur ine (UA) Auto [place] ([facility]) ketone, urine auto negative negative Ketone, Urine Aut o [place] ([facility]) urobilinogen, urine auto 0.2 mg/dL 0.0-2.0 Urobilinoge n, Urine Auto [facility] ([facility]) bilirubin, urine auto negative negative Bilirubin, Uri ne Auto [place] ([facility]) nitrite, urine auto negative negative Nitrite, Urine A uto [place] ([facility]) leukocyte esterase, urine auto 2+ negative Above high normal Leukocyte Esterase, Urine Auto [facility] ([facility]) blood, urine blood negative negative Blood, Urine Bloo d [place] ([facility]) WBC, urine auto 4 /hpf 0-3 Above high normal WBC, Urine Au to [facility] ([facility]) bacteria, urine auto 1+ negative Above high normal Bacteria , Urine Auto [facility] ([facility]) RBC, urine auto 1 /hpf 0-3 RBC, Urine Auto [facility] ([facility]) squamous epithelial cell ur AU 2 /hpf 0-6 Squam ous Epithelial Cell Ur AU [facility] ([facility]) hyaline cast, urine auto 0 /lpf 0-1 Hyaline Avelino t, Urine Auto [facility] ([facility]) ID Date Data Source [id number] 07/21/2020 10:32:00 AM EDT [place] ([facility]) Name Value Range Interpretation Code Description Data Elizabeth rce(s) Supporting Document(s) white blood count 3.6 10 4.0-10.0 Below low normal White Blood Count [place] ([facility]) red blood count 4.52 10 4.00-5.40 Red Blood Count [facility] ([facility]) hematocrit 41.2 % 36.0-47.0 Hematocrit [facility] ([facility]) hemoglobin 13.7 g/dL 12.0-15.5 Hemoglobin [place] ([facility]) mean corpuscular volume 91.2 fL 80.0-96.0 Mean Corpusc ular Volume [place] ([facility]) mean corpuscular hemoglobin 30.3 pg 27.0-33.0 Mean Cor puscular Hemoglobin [place] ([facility]) mean corpuscular HGB conc 33.3 g/dL 32.0-36.5 Mean Corpu scular HGB Conc [facility] ([facility]) red cell distribution width 12.9 % 11.5-14.5 Red Cell Distribution Width [place] ([facility]) platelet count, automated 166 10 150-450 Platelet C ount, Automated [place] ([facility]) neutrophils % 49.9 % 36.0-66.0 Neutrophils % [place] ( [facility]) mono % 10.3 % 2.0-8.0 Above high normal [place] % [place] ([facility]) lymph % 37.0 % 24.0-44.0 Lymph % [place] ([facility]) baso % 0.6 % 0.0-1.0 Baso % [facility] ([facility]) eos % 1.9 % 0.0-3.0 Eos % [facility] ([facility]) immature granulocyte % 0.3 % 0-3.0 Immature Gran ulocyte % [facility] ([facility]) neutrophils # 1.8 10 1.5-8.5 Neutrophils # [facility] ( [facility]) nucleated red blood cell % 0.0 % 0-0 Nucleated Red Blood Cell % [facility] ([facility]) mono # 0.4 10 0.0-0.8 [place] # [facility] ([facility]) lymph # 1.3 10 1.5-5.0 Below low normal Lymph # [facility] ( [facility]) baso # 0.0 10 0.0-0.2 Baso # [facility] ([facility]) eos # 0.1 10 0.0-0.5 Eos # [facility] ([facility]) ID Date Data Source [id number] 07/21/2020 10:32:00 AM EDT [place] ([facility]) Name Value Range Interpretation Code Description Data Elizabeth rce(s) Supporting Document(s) color, urine straw yellow Color, Urine [facility] (No [facility]) appearance, urine hazy clear Appearance, Urine [facility] ([facility]) pH,urine 6.0 units 5.0-9.0 pH,urine [facility] ([facility]) specific gravity urine auto 1.002-1.035 Below low nor mal Specific [place] Urine Auto [facility] ([facility]) protein, urine auto negative negative Protein, Urine A uto [facility] ([facility]) glucose, urine (UA) auto negative negative Glucose, Ur ine (UA) Auto [facility] ([facility]) ketone, urine auto negative negative Ketone, Urine Aut o [facility] ([facility]) bilirubin, urine auto negative negative Bilirubin, Uri ne Auto [facility] ([facility]) urobilinogen, urine auto 0.2 mg/dL 0.0-2.0 Urobilinoge n, Urine Auto [facility] ([facility]) nitrite, urine auto negative negative Nitrite, Urine A uto [facility] ([facility]) leukocyte esterase, urine auto 2+ negative Above high normal Leukocyte Esterase, Urine Auto [facility] ([facility]) blood, urine blood negative negative Blood, Urine Bloo d [facility] ([facility]) WBC, urine auto 4 /hpf 0-3 Above high normal WBC, Urine Au to [facility] ([facility]) RBC, urine auto 1 /hpf 0-3 RBC, Urine Auto [facility] ([facility]) bacteria, urine auto 1+ negative Above high normal Bacteria , Urine Auto [facility] ([facility]) squamous epithelial cell ur AU 2 /hpf 0-6 Squam ous Epithelial Cell Ur AU [facility] ([facility]) hyaline cast, urine auto 0 /lpf 0-1 Hyaline Avelino t, Urine Auto [facility] ([facility]) ID Date Data Source [id number] 07/21/2020 10:32:00 AM EDT [place] ([facility]) Name Value Range Interpretation Code Description Data Elizabeth rce(s) Supporting Document(s) white blood count 3.6 10 4.0-10.0 Below low normal White Blood Count [facility] ([facility]) red blood count 4.52 10 4.00-5.40 Red Blood Count [facility] ([facility]) hemoglobin 13.7 g/dL 12.0-15.5 Hemoglobin [facility] ([facility]) mean corpuscular volume 91.2 fL 80.0-96.0 Mean Corpusc ular Volume [facility] ([facility]) hematocrit 41.2 % 36.0-47.0 Hematocrit [facility] ([facility]) mean corpuscular hemoglobin 30.3 pg 27.0-33.0 Mean Cor puscular Hemoglobin [facility] ([facility]) mean corpuscular HGB conc 33.3 g/dL 32.0-36.5 Mean Corpu scular HGB Conc [facility] ([facility]) red cell distribution width 12.9 % 11.5-14.5 Red Cell Distribution Width [facility] ([facility]) platelet count, automated 166 10 150-450 Platelet C ount, Automated [facility] ([facility]) neutrophils % 49.9 % 36.0-66.0 Neutrophils % [facility] ( [facility]) lymph % 37.0 % 24.0-44.0 Lymph % [place] ([facility]) mono % 10.3 % 2.0-8.0 Above high normal [place] % [place] ([facility]) eos % 1.9 % 0.0-3.0 Eos % [place] ([facility]) baso % 0.6 % 0.0-1.0 Baso % [place] ([facility]) immature granulocyte % 0.3 % 0-3.0 Immature Gran ulocyte % [place] ([facility]) nucleated red blood cell % 0.0 % 0-0 Nucleated Red Blood Cell % [place] ([facility]) neutrophils # 1.8 10 1.5-8.5 Neutrophils # [place] ( [facility]) lymph # 1.3 10 1.5-5.0 Below low normal Lymph # [place] ( [facility]) mono # 0.4 10 0.0-0.8 [place] # [place] ([facility]) eos # 0.1 10 0.0-0.5 Eos # [place] ([facility]) baso # 0.0 10 0.0-0.2 Baso # [place] ([facility]) ID Date Data Source [id number] 07/21/2020 10:32:00 AM EDT [place] ([facility]) Name Value Range Interpretation Code Description Data Elizabeth rce(s) Supporting Document(s) appearance, urine hazy clear Appearance, Urine [place] ([facility]) color, urine straw yellow Color, Urine [place] (No [facility]) pH,urine 6.0 units 5.0-9.0 pH,urine [place] ([facility]) specific gravity urine auto 1.002-1.035 Below low nor mal Specific [place] Urine Auto [place] ([facility]) protein, urine auto negative negative Protein, Urine A uto [place] ([facility]) glucose, urine (UA) auto negative negative Glucose, Ur ine (UA) Auto [place] ([facility]) urobilinogen, urine auto 0.2 mg/dL 0.0-2.0 Urobilinoge n, Urine Auto [place] ([facility]) ketone, urine auto negative negative Ketone, Urine Aut o [place] ([facility]) bilirubin, urine auto negative negative Bilirubin, Uri ne Auto [place] ([facility]) leukocyte esterase, urine auto 2+ negative Above high normal Leukocyte Esterase, Urine Auto [place] ([facility]) nitrite, urine auto negative negative Nitrite, Urine A uto [place] ([facility]) WBC, urine auto 4 /hpf 0-3 Above high normal WBC, Urine Au to [place] ([facility]) blood, urine blood negative negative Blood, Urine Bloo d [place] ([facility]) RBC, urine auto 1 /hpf 0-3 RBC, Urine Auto [place] ([facility]) bacteria, urine auto 1+ negative Above high normal Bacteria , Urine Auto [place] ([facility]) hyaline cast, urine auto 0 /lpf 0-1 Hyaline Avelino t, Urine Auto [place] ([facility]) squamous epithelial cell ur AU 2 /hpf 0-6 Squam ous Epithelial Cell Ur AU [place] ([facility]) ID Date Data Source [id number] 07/21/2020 10:32:00 AM EDT [place] ([facility]) Name Value Range Interpretation Code Description Data Elizabeth rce(s) Supporting Document(s) white blood count 3.6 10 4.0-10.0 Below low normal White Blood Count [place] ([facility]) red blood count 4.52 10 4.00-5.40 Red Blood Count [place] ([facility]) hemoglobin 13.7 g/dL 12.0-15.5 Hemoglobin [place] ([facility]) hematocrit 41.2 % 36.0-47.0 Hematocrit [place] ([facility]) mean corpuscular volume 91.2 fL 80.0-96.0 Mean Corpusc ular Volume [place] ([facility]) mean corpuscular hemoglobin 30.3 pg 27.0-33.0 Mean Cor puscular Hemoglobin [place] ([facility]) mean corpuscular HGB conc 33.3 g/dL 32.0-36.5 Mean Corpu scular HGB Conc [place] ([facility]) red cell distribution width 12.9 % 11.5-14.5 Red Cell Distribution Width [place] ([facility]) platelet count, automated 166 10 150-450 Platelet C ount, Automated [place] ([facility]) neutrophils % 49.9 % 36.0-66.0 Neutrophils % [place] ( [facility]) lymph % 37.0 % 24.0-44.0 Lymph % [place] ([facility]) mono % 10.3 % 2.0-8.0 Above high normal [place] % [place] ([facility]) eos % 1.9 % 0.0-3.0 Eos % [place] ([facility]) baso % 0.6 % 0.0-1.0 Baso % [place] ([facility]) immature granulocyte % 0.3 % 0-3.0 Immature Gran ulocyte % [place] ([facility]) neutrophils # 1.8 10 1.5-8.5 Neutrophils # [place] ( [facility]) nucleated red blood cell % 0.0 % 0-0 Nucleated Red Blood Cell % [place] ([facility]) lymph # 1.3 10 1.5-5.0 Below low normal Lymph # [place] ( [facility]) mono # 0.4 10 0.0-0.8 [place] # [place] ([facility]) eos # 0.1 10 0.0-0.5 Eos # [place] ([facility]) baso # 0.0 10 0.0-0.2 Baso # [place] ([facility]) ID Date Data Source [id number] 07/21/2020 10:32:00 AM EDT [place] ([facility]) Name Value Range Interpretation Code Description Data Elizabeth rce(s) Supporting Document(s) appearance, urine hazy clear Appearance, Urine [place] ([facility]) color, urine straw yellow Color, [facility] [place] [facility] pH,urine 6.0 units 5.0-9.0 pH,urine [place] ([facility]) specific gravity urine auto 1.002-1.035 Below low nor mal Specific [place] Urine Auto [place] ([facility]) protein, urine auto negative negative Protein, Urine A uto [place] ([facility]) glucose, urine (UA) auto negative negative Glucose, Ur ine (UA) Auto [place] ([facility]) ketone, urine auto negative negative Ketone, Urine Aut o [place] ([facility]) urobilinogen, urine auto 0.2 mg/dL 0.0-2.0 Urobilinoge n, Urine Auto [place] ([facility]) bilirubin, urine auto negative negative Bilirubin, Uri ne Auto [place] ([facility]) nitrite, urine auto negative negative Nitrite, Urine A uto [place] ([facility]) leukocyte esterase, urine auto 2+ negative Above high normal Leukocyte Esterase, Urine Auto [place] ([facility]) blood, urine blood negative negative Blood, Urine Bloo d [place] ([facility]) WBC, urine auto 4 /hpf 0-3 Above high normal WBC, Urine Au to [place] ([facility]) RBC, urine auto 1 /hpf 0-3 RBC, Urine Auto [place] ([facility]) bacteria, urine auto 1+ negative Above high normal Bacteria , Urine Auto [place] ([facility]) squamous epithelial cell ur AU 2 /hpf 0-6 Squam ous Epithelial Cell Ur AU [place] ([facility]) hyaline cast, urine auto 0 /lpf 0-1 Hyaline Avelino t, Urine Auto [place] ([facility]) ID Date Data Source [id number] 07/21/2020 10:02:00 AM EDT [facility]) Name Value Range Interpretation Code Description Data Elizabeth rce(s) Supporting Document(s) nt-pro BNP 224 pg/mL <125 Above high normal Nt-pro BNP [place] ([facility]) ID Date Data Source [id number] 07/21/2020 10:02:00 AM EDT [place] ([facility]) Name Value Range Interpretation Code Description Data Elizabeth rce(s) Supporting Document(s) glucose, fasting 88 mg/dL 70-100 Glucose, Fasting AT [facility] ([facility]) blood urea nitrogen 7 mg/dL 7-18 Blood Urea Nitro gen [place] ([facility]) creatinine for GFR 0.77 mg/dL 0.55-1.30 Creatinine for GF R [place] ([facility]) glomerular filtration rate > 60.0 >51 Glomerula r Filtration Rate [place] ([facility]) sodium level 141 mEq/L 136-145 Sodium Level [place] ([facility]) potassium serum 4.1 mEq/L 3.5-5.1 Potassium Serum [place] ([facility]) chloride level 109 mEq/L 98-107 Above high normal Chloride Level [place] ([facility]) carbon dioxide level 28 mEq/L 21-32 Carbon Dioxide Level [place] ([facility]) anion gap 4 mEq/L 8-16 Below low normal Anion Gap [place] ( [facility]) calcium level 9.2 mg/dL 8.5-10.1 Calcium Level [place] ( [facility]) ID Date Data Source [id number] 07/21/2020 10:02:00 AM EDT [place] ([facility]) Name Value Range Interpretation Code Description Data Elizabeth rce(s) Supporting Document(s) ALT/SGPT 53 U/L 12-78 ALT/SGPT [place] ([facility]) AST/SGOT 53 U/L 7-37 Above high normal AST/SGOT [place] ([facility]) alkaline phosphatase 99 U/L 45-117 Alkaline Phosph atase [place] ([facility]) bilirubin,total 0.6 mg/dL 0.2-1.0 Bilirubin,total [place] ([facility]) bilirubin,direct 0.1 mg/dL 0.0-0.2 Bilirubin,direct AT [facility] ([facility]) total protein 6.1 gm/dL 6.4-8.2 Below low normal Total Protein AT [facility] ([facility]) albumin 3.2 gm/dL 3.2-5.2 Albumin [place] ([facility]) albumin/globulin ratio 1.2-2.2 Below low normal Albumin /globulin Ratio [place] ([facility]) ID Date Data Source [id number] 07/21/2020 10:02:00 AM EDT [place] ([facility]) Name Value Range Interpretation Code Description Data Elizabeth rce(s) Supporting Document(s) CPK creatine phosphokinase 138 U/L 26-192 CPK Creat ine Phosphokinase [place] ([facility]) CK-mb value mass < 1.0 <3.6 CK-mb Value Mass AT [facility] ([facility]) mb/CK relative index < or =4 mb/CK Relative Index [place] ([facility]) troponin I < 0.02 < 0.10 Troponin I [place] ([facility]) ID Date Data Source [id number] 07/21/2020 10:02:00 AM EDT [place] ([facility]) Name Value Range Interpretation Code Description Data Elizabeth rce(s) Supporting Document(s) D-dimer quant 706.82 NG/mL <500 Above high normal D-dimer Quant [place] ([facility]) ID Date Data Source [id number] 07/21/2020 10:02:00 AM EDT [facility]) Name Value Range Interpretation Code Description Data Elizabeth rce(s) Supporting Document(s) nt-pro BNP 224 pg/mL <125 Above high normal [facility] ID Date Data Source [id number] 07/21/2020 10:02:00 AM EDT [place] ([facility]) Name Value Range Interpretation Code Description Data Elizabeth rce(s) Supporting Document(s) glucose, fasting 88 mg/dL 70-100 Glucose, Fasting AT [facility]) blood urea nitrogen 7 mg/dL 7-18 Blood Urea Nitro gen [place] ([facility]) creatinine for GFR 0.77 mg/dL 0.55-1.30 Creatinine for GF R [place] ([facility]) glomerular filtration rate > 60.0 >51 Glomerula r Filtration Rate [place] ([facility]) sodium level 141 mEq/L 136-145 Sodium Level [place] ([facility]) chloride level 109 mEq/L 98-107 Above high normal Chloride Level [place] ([facility]) potassium serum 4.1 mEq/L 3.5-5.1 Potassium Serum [facility] ([facility]) carbon dioxide level 28 mEq/L 21-32 Carbon Dioxide Level [place] ([facility]) anion gap 4 mEq/L 8-16 Below low normal Anion Gap [place] ( [facility]) calcium level 9.2 mg/dL 8.5-10.1 Calcium Level [place] ( [facility]) ID Date Data Source [id number] 07/21/2020 10:02:00 AM EDT [facility]) Name Value Range Interpretation Code Description Data Elizabeth rce(s) Supporting Document(s) AST/SGOT 53 U/L 7-37 Above high normal AST/SGOT [facility]) ALT/SGPT 53 U/L 12-78 ALT/SGPT [place] ([facility]) alkaline phosphatase 99 U/L 45-117 Alkaline Phosph atase [facility]) bilirubin,total 0.6 mg/dL 0.2-1.0 Bilirubin,total ATHE [facility]) bilirubin,direct 0.1 mg/dL 0.0-0.2 Bilirubin,direct AT [facility]) total protein 6.1 gm/dL 6.4-8.2 Below low normal Total Protein AT [facility]) albumin 3.2 gm/dL 3.2-5.2 Albumin [place] ([facility]) albumin/globulin ratio 1.2-2.2 Below low normal Albumin /globulin Ratio [place] ([facility]) ID Date Data Source [id number] 07/21/2020 10:02:00 AM EDT [place] ([facility]) Name Value Range Interpretation Code Description Data Elizabeth rce(s) Supporting Document(s) CPK creatine phosphokinase 138 U/L 26-192 CPK Creat ine Phosphokinase [place] ([facility]) CK-mb value mass < 1.0 <3.6 CK-mb Value Mass AT [facility] ([facility]) mb/CK relative index < or =4 mb/CK Relative Index [place] ([facility]) troponin I < 0.02 < 0.10 Troponin I [facility]) ID Date Data Source [id number] 07/21/2020 10:02:00 AM EDT [facility]) Name Value Range Interpretation Code Description Data Elizabeth rce(s) Supporting Document(s) D-dimer quant 706.82 NG/mL <500 Above high normal D-dimer Quant [facility]) ID Date Data Source [id number] 07/21/2020 10:02:00 AM EDT [facility]) Name Value Range Interpretation Code Description Data Elizabeth rce(s) Supporting Document(s) nt-pro BNP 224 pg/mL <125 Above high normal Nt-pro BNP [facility]) ID Date Data Source [id number] 07/21/2020 10:02:00 AM EDT [facility]) Name Value Range Interpretation Code Description Data Elizabeth rce(s) Supporting Document(s) glucose, fasting 88 mg/dL 70-100 Glucose, Fasting AT [facility] ([facility]) creatinine for GFR 0.77 mg/dL 0.55-1.30 Creatinine for GF R [place] ([facility]) blood urea nitrogen 7 mg/dL 7-18 Blood Urea Nitro gen [place] ([facility]) sodium level 141 mEq/L 136-145 Sodium Level [place] (No [facility]) glomerular filtration rate > 60.0 >51 Glomerula r Filtration Rate [place] ([facility]) potassium serum 4.1 mEq/L 3.5-5.1 Potassium Serum [place] ([facility]) chloride level 109 mEq/L 98-107 Above high normal Chloride Level [place] ([facility]) carbon dioxide level 28 mEq/L 21-32 Carbon Dioxide Level [place] ([facility]) anion gap 4 mEq/L 8-16 Below low normal Anion Gap [place] ( [facility]) calcium level 9.2 mg/dL 8.5-10.1 Calcium Level [place] ( [facility]) ID Date Data Source [id number] 07/21/2020 10:02:00 AM EDT [place] ([facility]) Name Value Range Interpretation Code Description Data Elizabeth rce(s) Supporting Document(s) AST/SGOT 53 U/L 7-37 Above high normal AST/SGOT [place] ([facility]) ALT/SGPT 53 U/L 12-78 ALT/SGPT [place] ([facility]) bilirubin,total 0.6 mg/dL 0.2-1.0 Bilirubin,total [place] ([facility]) alkaline phosphatase 99 U/L 45-117 Alkaline Phosph atase [place] ([facility]) total protein 6.1 gm/dL 6.4-8.2 Below low normal Total Protein AT [facility]) bilirubin,direct 0.1 mg/dL 0.0-0.2 Bilirubin,direct AT [facility] ([facility]) albumin/globulin ratio 1.2-2.2 Below low normal Albumin /globulin Ratio [place] ([facility]) albumin 3.2 gm/dL 3.2-5.2 Albumin [place] ([facility]) ID Date Data Source [id number] 07/21/2020 10:02:00 AM EDT [facility]) Name Value Range Interpretation Code Description Data Elizabeth rce(s) Supporting Document(s) CPK creatine phosphokinase 138 U/L 26-192 CPK Creat ine Phosphokinase [place] ([facility]) CK-mb value mass < 1.0 <3.6 CK-mb Value Mass AT [facility]) troponin I < 0.02 < 0.10 Troponin I [place] ([facility]) mb/CK relative index < or =4 mb/CK Relative Index [facility]) ID Date Data Source [id number] 07/21/2020 10:02:00 AM EDT [facility]) Name Value Range Interpretation Code Description Data Elizabeth rce(s) Supporting Document(s) D-dimer quant 706.82 NG/mL <500 Above high normal D-dimer Quant [place] ([facility]) ID Date Data Source [id number] 07/21/2020 10:02:00 AM EDT [facility]) Name Value Range Interpretation Code Description Data Elizabeth rce(s) Supporting Document(s) nt-pro BNP 224 pg/mL <125 Above high normal Nt-pro BNP [facility]) ID Date Data Source [id number] 07/21/2020 10:02:00 AM EDT [facility]) Name Value Range Interpretation Code Description Data Elizabeth rce(s) Supporting Document(s) blood urea nitrogen 7 mg/dL 7-18 Blood Urea Nitro gen [place] ([facility]) glucose, fasting 88 mg/dL 70-100 Glucose, Fasting AT [facility] ([facility]) glomerular filtration rate > 60.0 >51 Glomerula r Filtration Rate [place] ([facility]) creatinine for GFR 0.77 mg/dL 0.55-1.30 Creatinine for GF R [place] ([facility]) sodium level 141 mEq/L 136-145 Sodium Level [place] ([facility]) potassium serum 4.1 mEq/L 3.5-5.1 Potassium Serum [place] ([facility]) chloride level 109 mEq/L 98-107 Above high normal Chloride Level [place] ([facility]) carbon dioxide level 28 mEq/L 21-32 Carbon Dioxide Level [place] ([facility]) anion gap 4 mEq/L 8-16 Below low normal Anion Gap [place] ( [facility]) calcium level 9.2 mg/dL 8.5-10.1 Calcium Level [place] ( [facility]) ID Date Data Source [id number] 07/21/2020 10:02:00 AM EDT [place] ([facility]) Name Value Range Interpretation Code Description Data Elizabeth rce(s) Supporting Document(s) AST/SGOT 53 U/L 7-37 Above high normal AST/SGOT [place] ([facility]) ALT/SGPT 53 U/L 12-78 ALT/SGPT [place] ([facility]) bilirubin,total 0.6 mg/dL 0.2-1.0 Bilirubin,total [place] ([facility]) alkaline phosphatase 99 U/L 45-117 Alkaline Phosph atase [place] ([facility]) bilirubin,direct 0.1 mg/dL 0.0-0.2 Bilirubin,direct AT [facility]) total protein 6.1 gm/dL 6.4-8.2 Below low normal Total Protein AT [facility]) albumin 3.2 gm/dL 3.2-5.2 Albumin [place] ([facility]) albumin/globulin ratio 1.2-2.2 Below low normal Albumin /globulin Ratio [place] ([facility]) ID Date Data Source [id number] 07/21/2020 10:02:00 AM EDT [place] ([facility]) Name Value Range Interpretation Code Description Data Elizabeth rce(s) Supporting Document(s) CPK creatine phosphokinase 138 U/L 26-192 CPK Creat ine Phosphokinase [place] ([facility]) CK-mb value mass < 1.0 <3.6 CK-mb Value Mass AT [facility] ([facility]) mb/CK relative index < or =4 mb/CK Relative Index [place] ([facility]) troponin I < 0.02 < 0.10 Troponin I [place] ([facility]) ID Date Data Source [id number] 07/21/2020 10:02:00 AM EDT [facility]) Name Value Range Interpretation Code Description Data Elizabeth rce(s) Supporting Document(s) D-dimer quant 706.82 NG/mL <500 Above high normal D-dimer Quant [facility]) ID Date Data Source [id number] 07/21/2020 10:02:00 AM EDT [facility]) Name Value Range Interpretation Code Description Data Elizabeth rce(s) Supporting Document(s) nt-pro BNP 224 pg/mL <125 Above high normal Nt-pro BNP [place] ([facility]) ID Date Data Source [id number] 07/21/2020 10:02:00 AM EDT [facility]) Name Value Range Interpretation Code Description Data Elizabeth rce(s) Supporting Document(s) glucose, fasting 88 mg/dL 70-100 Glucose, Fasting AT [facility] ([facility]) blood urea nitrogen 7 mg/dL 7-18 Blood Urea Nitro gen [place] ([facility]) creatinine for GFR 0.77 mg/dL 0.55-1.30 Creatinine for GF R [place] ([facility]) glomerular filtration rate > 60.0 >51 Glomerula r Filtration Rate [place] ([facility]) sodium level 141 mEq/L 136-145 Sodium Level [place] ([facility]) potassium serum 4.1 mEq/L 3.5-5.1 Potassium Serum [facility] ([facility]) chloride level 109 mEq/L 98-107 Above high normal Chloride Level [place] ([facility]) carbon dioxide level 28 mEq/L 21-32 Carbon Dioxide Level [place] ([facility]) anion gap 4 mEq/L 8-16 Below low normal Anion Gap [place] ( [facility]) calcium level 9.2 mg/dL 8.5-10.1 Calcium Level [place] ( [facility]) ID Date Data Source [id number] 07/21/2020 10:02:00 AM EDT [place] ([facility]) Name Value Range Interpretation Code Description Data Elizabeth rce(s) Supporting Document(s) AST/SGOT 53 U/L 7-37 Above high normal AST/SGOT [place] ([facility]) ALT/SGPT 53 U/L 12-78 ALT/SGPT [place] ([facility]) alkaline phosphatase 99 U/L 45-117 Alkaline Phosph atase [place] ([facility]) bilirubin,total 0.6 mg/dL 0.2-1.0 Bilirubin,total ATHE [facility]) bilirubin,direct 0.1 mg/dL 0.0-0.2 Bilirubin,direct AT [facility]) total protein 6.1 gm/dL 6.4-8.2 Below low normal Total Protein AT [facility]) albumin 3.2 gm/dL 3.2-5.2 Albumin [place] ([facility]) albumin/globulin ratio 1.2-2.2 Below low normal Albumin /globulin Ratio [place] ([facility]) ID Date Data Source [id number] 07/21/2020 10:02:00 AM EDT [facility]) Name Value Range Interpretation Code Description Data Elizabeth rce(s) Supporting Document(s) CPK creatine phosphokinase 138 U/L 26-192 CPK Creat ine Phosphokinase [place] ([facility]) CK-mb value mass < 1.0 <3.6 CK-mb Value Mass AT [facility] ([facility]) mb/CK relative index < or =4 mb/CK Relative Index [place] ([facility]) troponin I < 0.02 < 0.10 Troponin I [place] ([facility]) ID Date Data Source [id number] 07/21/2020 10:02:00 AM EDT [facility]) Name Value Range Interpretation Code Description Data Elizabeth rce(s) Supporting Document(s) D-dimer quant 706.82 NG/mL <500 Above high normal D-dimer Quant [facility]) ID Date Data Source [id number] 06/16/2020 11:29:00 AM EDT [facility]) Name Value Range Interpretation Code Description Data Elizabeth rce(s) Supporting Document(s) appearance, urine rfx clear clear Appearance, Ur ine Rfx [place] ([facility]) color, urine rfx yellow yellow Color, Urine Rfx AT [facility] ([facility]) pH,urine rfx 5.0 units 5.0-9.0 pH,urine Rfx [place] ([facility]) specific gravity ur auto rfx 1.002-1.035 Specif ic [place] Ur Auto Rfx [place] ([facility]) protein, urine auto rfx negative negative Protein, Uri ne Auto Rfx [place] ([facility]) glucose, urine (UA) auto rfx negative negative Glucose , Urine (UA) Auto Rfx [place] ([facility]) ketone, urine auto rfx 1+ negative Above high normal Ketone , Urine Auto Rfx [place] ([facility]) urobilinogen, urine auto rfx 2.0 mg/dL 0.0-2.0 Above high n ormal Urobilinogen, Urine Auto Rfx [place] ([facility]) bilirubin, urine auto rfx negative negative Bilirubin, Urine Auto Rfx [place] ([facility]) nitrite, urine auto rfx negative negative Nitrite, Uri ne Auto Rfx [place] ([facility]) leukocyte esterase ur auto rfx negative negative Leukocyte Esterase Ur Auto Rfx [place] ([facility]) blood, urine blood rfx negative negative Blood, Urine Blood Rfx [place] ([facility]) WBC, urine auto rfx 1 /hpf 0-3 WBC, Urine Auto Rfx [place] ([facility]) RBC, urine auto rfx 1 /hpf 0-3 RBC, Urine Auto Rfx [place] ([facility]) bacteria, urine auto rfx 1+ negative Above high normal Bact eria, Urine Auto Rfx [place] ([facility]) squam epithelial cell ur aurfx 1 /hpf 0-6 Squam Epithelial Cell Ur Aurfx [place] ([facility]) mucus, urine rfx small negative Mucus, Urine Rfx AT [facility] ([facility]) hyaline cast, urine auto rfx 0 /lpf 0-1 Hyaline Cast, Urine Auto Rfx [place] ([facility]) ID Date Data Source [id number] 06/16/2020 11:29:00 AM EDT [place] ([facility]) Name Value Range Interpretation Code Description Data Elizabeth rce(s) Supporting Document(s) appearance, urine rfx clear clear Appearance, Ur ine Rfx [place] ([facility]) color, urine rfx yellow yellow Color, Urine Rfx AT [facility] ([facility]) pH,urine rfx 5.0 units 5.0-9.0 pH,urine Rfx [place] (No [facility]) protein, urine auto rfx negative negative Protein, Uri ne Auto Rfx [place] ([facility]) specific gravity ur auto rfx 1.002-1.035 Specif ic [place] Ur Auto Rfx [place] ([facility]) glucose, urine (UA) auto rfx negative negative Glucose , Urine (UA) Auto Rfx [place] ([facility]) ketone, urine auto rfx 1+ negative Above high normal Ketone , Urine Auto Rfx [place] ([facility]) urobilinogen, urine auto rfx 2.0 mg/dL 0.0-2.0 Above high n ormal Urobilinogen, Urine Auto Rfx [place] ([facility]) bilirubin, urine auto rfx negative negative Bilirubin, Urine Auto Rfx [place] ([facility]) leukocyte esterase ur auto rfx negative negative Leukocyte Esterase Ur Auto Rfx [place] ([facility]) nitrite, urine auto rfx negative negative Nitrite, Uri ne Auto Rfx [place] ([facility]) WBC, urine auto rfx 1 /hpf 0-3 WBC, Urine Auto Rfx [place] ([facility]) blood, urine blood rfx negative negative Blood, Urine Blood Rfx [place] ([facility]) bacteria, urine auto rfx 1+ negative Above high normal Bact eria, Urine Auto Rfx [place] ([facility]) RBC, urine auto rfx 1 /hpf 0-3 RBC, Urine Auto Rfx [place] ([facility]) squam epithelial cell ur aurfx 1 /hpf 0-6 Squam Epithelial Cell Ur Aurfx [place] ([facility]) mucus, urine rfx small negative Mucus, Urine Rfx AT [facility] ([facility]) hyaline cast, urine auto rfx 0 /lpf 0-1 Hyaline Cast, Urine Auto Rfx [place] ([facility]) ID Date Data Source [id number] 06/16/2020 11:29:00 AM EDT [place] ([facility]) Name Value Range Interpretation Code Description Data Elizabeth rce(s) Supporting Document(s) appearance, urine rfx clear clear Appearance, Ur ine Rfx [place] ([facility]) pH,urine rfx 5.0 units 5.0-9.0 pH,urine Rfx [place] (No [facility]) color, urine rfx yellow yellow Color, Urine Rfx AT [facility]) specific gravity ur auto rfx 1.002-1.035 Specif ic [place] Ur Auto Rfx [place] ([facility]) protein, urine auto rfx negative negative Protein, Uri ne Auto Rfx [place] ([facility]) ketone, urine auto rfx 1+ negative Above high normal Ketone , Urine Auto Rfx [place] ([facility]) glucose, urine (UA) auto rfx negative negative Glucose , Urine (UA) Auto Rfx [place] ([facility]) bilirubin, urine auto rfx negative negative Bilirubin, Urine Auto Rfx [place] ([facility]) urobilinogen, urine auto rfx 2.0 mg/dL 0.0-2.0 Above high n ormal Urobilinogen, Urine Auto Rfx [place] ([facility]) leukocyte esterase ur auto rfx negative negative Leukocyte Esterase Ur Auto Rfx [place] ([facility]) nitrite, urine auto rfx negative negative Nitrite, Uri ne Auto Rfx [place] ([facility]) RBC, urine auto rfx 1 /hpf 0-3 RBC, Urine Auto Rfx [place] ([facility]) blood, urine blood rfx negative negative Blood, Urine Blood Rfx [place] ([facility]) WBC, urine auto rfx 1 /hpf 0-3 WBC, Urine Auto Rfx [place] ([facility]) squam epithelial cell ur aurfx 1 /hpf 0-6 Squam Epithelial Cell Ur Aurfx [place] ([facility]) bacteria, urine auto rfx 1+ negative Above high normal Bact eria, Urine Auto Rfx [place] ([facility]) mucus, urine rfx small negative Mucus, Urine Rfx AT [facility] ([facility]) hyaline cast, urine auto rfx 0 /lpf 0-1 Hyaline Cast, Urine Auto Rfx [place] ([facility]) ID Date Data Source [id number] 06/16/2020 11:29:00 AM EDT [place] ([facility]) Name Value Range Interpretation Code Description Data Elizabeth rce(s) Supporting Document(s) appearance, urine rfx clear clear Appearance, Ur ine Rfx [place] ([facility]) color, urine rfx yellow yellow Color, Urine Rfx AT [facility] ([facility]) pH,urine rfx 5.0 units 5.0-9.0 pH,urine Rfx [place] (No [facility]) specific gravity ur auto rfx 1.002-1.035 Specif ic [place] Ur Auto Rfx [place] ([facility]) protein, urine auto rfx negative negative Protein, Uri ne Auto Rfx [place] ([facility]) glucose, urine (UA) auto rfx negative negative Glucose , Urine (UA) Auto Rfx [place] ([facility]) ketone, urine auto rfx 1+ negative Above high normal Ketone , Urine Auto Rfx [place] ([facility]) urobilinogen, urine auto rfx 2.0 mg/dL 0.0-2.0 Above high n ormal Urobilinogen, Urine Auto Rfx [place] ([facility]) bilirubin, urine auto rfx negative negative Bilirubin, Urine Auto Rfx [place] ([facility]) nitrite, urine auto rfx negative negative Nitrite, Uri ne Auto Rfx [place] ([facility]) leukocyte esterase ur auto rfx negative negative Leukocyte Esterase Ur Auto Rfx [place] ([facility]) blood, urine blood rfx negative negative Blood, Urine Blood Rfx [place] ([facility]) WBC, urine auto rfx 1 /hpf 0-3 WBC, Urine Auto Rfx [place] ([facility]) bacteria, urine auto rfx 1+ negative Above high normal Bact eria, Urine Auto Rfx [place] ([facility]) RBC, urine auto rfx 1 /hpf 0-3 RBC, Urine Auto Rfx [place] ([facility]) mucus, urine rfx small negative Mucus, Urine Rfx AT [facility] ([facility]) squam epithelial cell ur aurfx 1 /hpf 0-6 Squam Epithelial Cell Ur Aurfx [place] ([facility]) hyaline cast, urine auto rfx 0 /lpf 0-1 Hyaline Cast, Urine Auto Rfx [place] ([facility]) ID Date Data Source [id number] 06/16/2020 11:29:00 AM EDT [place] ([facility]) Name Value Range Interpretation Code Description Data Elizabeth rce(s) Supporting Document(s) appearance, urine rfx clear clear Appearance, Ur ine Rfx [place] ([facility]) color, urine rfx yellow yellow Color, Urine Rfx AT [facility] ([facility]) pH,urine rfx 5.0 units 5.0-9.0 pH,urine Rfx [place] ([facility]) protein, urine auto rfx negative negative Protein, Uri ne Auto Rfx [place] ([facility]) specific gravity ur auto rfx 1.002-1.035 Specif ic [place] Ur Auto Rfx [place] ([facility]) glucose, urine (UA) auto rfx negative negative Glucose , Urine (UA) Auto Rfx [place] ([facility]) ketone, urine auto rfx 1+ negative Above high normal Ketone , Urine Auto Rfx [place] ([facility]) urobilinogen, urine auto rfx 2.0 mg/dL 0.0-2.0 Above high n ormal Urobilinogen, Urine Auto Rfx [place] ([facility]) bilirubin, urine auto rfx negative negative Bilirubin, Urine Auto Rfx [place] ([facility]) nitrite, urine auto rfx negative negative Nitrite, Uri ne Auto Rfx [place] ([facility]) leukocyte esterase ur auto rfx negative negative Leukocyte Esterase Ur Auto Rfx [place] ([facility]) blood, urine blood rfx negative negative Blood, Urine Blood Rfx [place] ([facility]) WBC, urine auto rfx 1 /hpf 0-3 WBC, Urine Auto Rfx [place] ([facility]) RBC, urine auto rfx 1 /hpf 0-3 RBC, Urine Auto Rfx [place] ([facility]) bacteria, urine auto rfx 1+ negative Above high normal Bact eria, Urine Auto Rfx [place] ([facility]) squam epithelial cell ur aurfx 1 /hpf 0-6 Squam Epithelial Cell Ur Aurfx [place] ([facility]) mucus, urine rfx small negative Mucus, Urine Rfx AT [facility] ([facility]) hyaline cast, urine auto rfx 0 /lpf 0-1 Hyaline Cast, Urine Auto Rfx [place] ([facility]) ID Date Data Source [id number] 06/16/2020 10:01:00 AM EDT [place] ([facility]) Name Value Range Interpretation Code Description Data Elizabeth rce(s) Supporting Document(s) lipase 96 U/L 73-393 Lipase [place] ([facility]) ID Date Data Source [id number] 06/16/2020 10:01:00 AM EDT [place] ([facility]) Name Value Range Interpretation Code Description Data Elizabeth rce(s) Supporting Document(s) amylase 28 U/L 25-115 Amylase [place] ([facility]) ID Date Data Source [id number] 06/16/2020 10:01:00 AM EDT [facility]) Name Value Range Interpretation Code Description Data Elizabeth rce(s) Supporting Document(s) blood urea nitrogen 11 mg/dL 7-18 Blood Urea Nitro gen [place] ([facility]) glucose, fasting 97 mg/dL 70-100 Glucose, Fasting AT [facility]) glomerular filtration rate > 60.0 >51 Glomerula r Filtration Rate [place] ([facility]) creatinine for GFR 0.88 mg/dL 0.55-1.30 Creatinine for GF R [place] ([facility]) sodium level 140 mEq/L 136-145 Sodium Level [place] (No [facility]) potassium serum 3.7 mEq/L 3.5-5.1 Potassium Serum [place] ([facility]) carbon dioxide level 30 mEq/L 21-32 Carbon Dioxide Level [place] ([facility]) chloride level 106 mEq/L 98-107 Chloride Level [place] ([facility]) calcium level 8.9 mg/dL 8.5-10.1 Calcium Level [place] ( [facility]) anion gap 4 mEq/L 8-16 Below low normal Anion Gap [facility]) ID Date Data Source [id number] 06/16/2020 10:01:00 AM EDT [facility]) Name Value Range Interpretation Code Description Data Elizabeth rce(s) Supporting Document(s) AST/SGOT 31 U/L 7-37 AST/SGOT [place] ([facility]) ALT/SGPT 32 U/L 12-78 ALT/SGPT [place] ([facility]) alkaline phosphatase 99 U/L 45-117 Alkaline Phosph atase [place] ([facility]) bilirubin,total 0.4 mg/dL 0.2-1.0 Bilirubin,total [place] ([facility]) total protein 6.2 gm/dL 6.4-8.2 Below low normal Total Protein AT [facility] ([facility]) bilirubin,direct 0.1 mg/dL 0.0-0.2 Bilirubin,direct AT [facility] ([facility]) albumin/globulin ratio 1.2-2.2 Below low normal Albumin /globulin Ratio [place] ([facility]) albumin 3.2 gm/dL 3.2-5.2 Albumin [place] ([facility]) ID Date Data Source [id number] 06/16/2020 10:01:00 AM EDT [place] ([facility]) Name Value Range Interpretation Code Description Data Elizabeth rce(s) Supporting Document(s) CPK creatine phosphokinase 59 U/L 26-192 CPK Creat ine Phosphokinase [place] ([facility]) mb/CK relative index < or =4 mb/CK Relative Index [place] ([facility]) CK-mb value mass < 1.0 <3.6 CK-mb Value Mass AT [facility]) troponin I < 0.02 < 0.10 Troponin I [place] ([facility]) ID Date Data Source [id number] 06/16/2020 10:01:00 AM EDT [facility]) Name Value Range Interpretation Code Description Data Elizabeth rce(s) Supporting Document(s) lactic acid sepsis protocol 1.0 mmol/L 0.4-2.0 Lactic A spencer Sepsis Protocol [place] ([facility]) ID Date Data Source [id number] 06/16/2020 10:01:00 AM EDT [place] ([facility]) Name Value Range Interpretation Code Description Data Elizabeth rce(s) Supporting Document(s) white blood count 3.9 10 4.0-10.0 Below low normal White Blood Count [place] ([facility]) red blood count 4.75 10 4.00-5.40 Red Blood Count [place] ([facility]) hemoglobin 14.3 g/dL 12.0-15.5 Hemoglobin [place] ([facility]) hematocrit 44.0 % 36.0-47.0 Hematocrit [place] ([facility]) mean corpuscular volume 92.6 fL 80.0-96.0 Mean Corpusc ular Volume [place] ([facility]) mean corpuscular hemoglobin 30.1 pg 27.0-33.0 Mean Cor puscular Hemoglobin [place] ([facility]) mean corpuscular HGB conc 32.5 g/dL 32.0-36.5 Mean Corpu scular HGB Conc [place] ([facility]) red cell distribution width 12.6 % 11.5-14.5 Red Cell Distribution Width [place] ([facility]) neutrophils % 65.7 % 36.0-66.0 Neutrophils % [place] ( [facility]) platelet count, automated 157 10 150-450 Platelet C ount, Automated [place] ([facility]) lymph % 19.1 % 24.0-44.0 Below low normal Lymph % [place] ( [facility]) mono % 11.6 % 2.0-8.0 Above high normal [place] % [place] ([facility]) baso % 0.8 % 0.0-1.0 Baso % [place] ([facility]) eos % 2.3 % 0.0-3.0 Eos % [place] ([facility]) immature granulocyte % 0.5 % 0-3.0 Immature Gran ulocyte % [place] ([facility]) nucleated red blood cell % 0.0 % 0-0 Nucleated Red Blood Cell % [place] ([facility]) lymph # 0.7 10 1.5-5.0 Below low normal Lymph # [place] ( [facility]) neutrophils # 2.6 10 1.5-8.5 Neutrophils # [place] ( [facility]) mono # 0.5 10 0.0-0.8 [place] # [place] ([facility]) baso # 0.0 10 0.0-0.2 Baso # [place] ([facility]) eos # 0.1 10 0.0-0.5 Eos # [place] ([facility]) ID Date Data Source [id number] 06/16/2020 10:01:00 AM EDT [place] ([facility]) Name Value Range Interpretation Code Description Data Elizabeth rce(s) Supporting Document(s) lipase 96 U/L 73-393 Lipase [place] ([facility]) ID Date Data Source [id number] 06/16/2020 10:01:00 AM EDT [place] ([facility]) Name Value Range Interpretation Code Description Data Elizabeth rce(s) Supporting Document(s) amylase 28 U/L 25-115 Amylase [place] ([facility]) ID Date Data Source [id number] 06/16/2020 10:01:00 AM EDT [place] ([facility]) Name Value Range Interpretation Code Description Data Elizabeth rce(s) Supporting Document(s) glucose, fasting 97 mg/dL 70-100 Glucose, Fasting AT [facility] ([facility]) blood urea nitrogen 11 mg/dL 7-18 Blood Urea Nitro gen [place] ([facility]) creatinine for GFR 0.88 mg/dL 0.55-1.30 Creatinine for GF R [place] ([facility]) glomerular filtration rate > 60.0 >51 Glomerula r Filtration Rate [place] ([facility]) sodium level 140 mEq/L 136-145 Sodium Level [place] (No [facility]) potassium serum 3.7 mEq/L 3.5-5.1 Potassium Serum [place] ([facility]) carbon dioxide level 30 mEq/L 21-32 Carbon Dioxide Level [place] ([facility]) chloride level 106 mEq/L 98-107 Chloride Level [place] ([facility]) anion gap 4 mEq/L 8-16 Below low normal Anion Gap [place] ( [facility]) calcium level 8.9 mg/dL 8.5-10.1 Calcium Level [place] ( [facility]) ID Date Data Source [id number] 06/16/2020 10:01:00 AM EDT [place] ([facility]) Name Value Range Interpretation Code Description Data Elizabeth rce(s) Supporting Document(s) ALT/SGPT 32 U/L 12-78 ALT/SGPT [place] ([facility]) AST/SGOT 31 U/L 7-37 AST/SGOT [place] ([facility]) alkaline phosphatase 99 U/L 45-117 Alkaline Phosph atase [place] ([facility]) bilirubin,total 0.4 mg/dL 0.2-1.0 Bilirubin,total [place] ([facility]) bilirubin,direct 0.1 mg/dL 0.0-0.2 Bilirubin,direct AT [facility]) total protein 6.2 gm/dL 6.4-8.2 Below low normal Total Protein AT [facility] ([facility]) albumin/globulin ratio 1.2-2.2 Below low normal Albumin /globulin Ratio [place] ([facility]) albumin 3.2 gm/dL 3.2-5.2 Albumin [place] ([facility]) ID Date Data Source [id number] 06/16/2020 10:01:00 AM EDT [place] ([facility]) Name Value Range Interpretation Code Description Data Elizabeth rce(s) Supporting Document(s) CPK creatine phosphokinase 59 U/L 26-192 CPK Creat ine Phosphokinase [place] ([facility]) CK-mb value mass < 1.0 <3.6 CK-mb Value Mass AT [facility]) mb/CK relative index < or =4 mb/CK Relative Index [place] ([facility]) troponin I < 0.02 < 0.10 Troponin I [place] ([facility]) ID Date Data Source [id number] 06/16/2020 10:01:00 AM EDT [place] ([facility]) Name Value Range Interpretation Code Description Data Elizabeth rce(s) Supporting Document(s) lactic acid sepsis protocol 1.0 mmol/L 0.4-2.0 Lactic A spencer Sepsis Protocol [place] ([facility]) ID Date Data Source [id number] 06/16/2020 10:01:00 AM EDT [place] ([facility]) Name Value Range Interpretation Code Description Data Elizabeth rce(s) Supporting Document(s) white blood count 3.9 10 4.0-10.0 Below low normal White Blood Count [place] ([facility]) red blood count 4.75 10 4.00-5.40 Red Blood Count [place] ([facility]) hemoglobin 14.3 g/dL 12.0-15.5 Hemoglobin [place] ([facility]) hematocrit 44.0 % 36.0-47.0 Hematocrit [place] ([facility]) mean corpuscular volume 92.6 fL 80.0-96.0 Mean Corpusc ular Volume [place] ([facility]) mean corpuscular hemoglobin 30.1 pg 27.0-33.0 Mean Cor puscular Hemoglobin [place] ([facility]) mean corpuscular HGB conc 32.5 g/dL 32.0-36.5 Mean Corpu scular HGB Conc [place] ([facility]) platelet count, automated 157 10 150-450 Platelet C ount, Automated [place] ([facility]) red cell distribution width 12.6 % 11.5-14.5 Red Cell Distribution Width [place] ([facility]) neutrophils % 65.7 % 36.0-66.0 Neutrophils % [place] ( [facility]) lymph % 19.1 % 24.0-44.0 Below low normal Lymph % [place] ( [facility]) mono % 11.6 % 2.0-8.0 Above high normal [place] % [place] ([facility]) eos % 2.3 % 0.0-3.0 Eos % [place] ([facility]) baso % 0.8 % 0.0-1.0 Baso % [place] ([facility]) immature granulocyte % 0.5 % 0-3.0 Immature Gran ulocyte % [place] ([facility]) neutrophils # 2.6 10 1.5-8.5 Neutrophils # [place] ( [facility]) nucleated red blood cell % 0.0 % 0-0 Nucleated Red Blood Cell % [place] ([facility]) mono # 0.5 10 0.0-0.8 [place] # [place] ([facility]) eos # 0.1 10 0.0-0.5 Eos # [place] ([facility]) lymph # 0.7 10 1.5-5.0 Below low normal Lymph # [place] ( [facility]) baso # 0.0 10 0.0-0.2 Baso # [place] ([facility]) ID Date Data Source [id number] 06/16/2020 10:01:00 AM EDT [place] ([facility]) Name Value Range Interpretation Code Description Data Elizabeth rce(s) Supporting Document(s) lipase 96 U/L 73-393 Lipase [place] ([facility]) ID Date Data Source [id number] 06/16/2020 10:01:00 AM EDT [place] ([facility]) Name Value Range Interpretation Code Description Data Elizabeth rce(s) Supporting Document(s) amylase 28 U/L 25-115 Amylase [place] ([facility]) ID Date Data Source [id number] 06/16/2020 10:01:00 AM EDT [place] ([facility]) Name Value Range Interpretation Code Description Data Elizabeth rce(s) Supporting Document(s) glucose, fasting 97 mg/dL 70-100 Glucose, Fasting AT [facility] ([facility]) blood urea nitrogen 11 mg/dL 7-18 Blood Urea Nitro gen [place] ([facility]) creatinine for GFR 0.88 mg/dL 0.55-1.30 Creatinine for GF R [place] ([facility]) glomerular filtration rate > 60.0 >51 Glomerula r Filtration Rate [place] ([facility]) sodium level 140 mEq/L 136-145 Sodium Level [place] ([facility]) potassium serum 3.7 mEq/L 3.5-5.1 [facility] chloride level 106 mEq/L 98-107 Chloride Level [place] ([facility]) anion gap 4 mEq/L 8-16 Below low normal Anion Gap [place] ( [facility]) carbon dioxide level 30 mEq/L 21-32 Carbon Dioxide Level [place] ([facility]) calcium level 8.9 mg/dL 8.5-10.1 Calcium Level [place] ( [facility]) ID Date Data Source [id number] 06/16/2020 10:01:00 AM EDT [place] ([facility]) Name Value Range Interpretation Code Description Data Elizabeth rce(s) Supporting Document(s) ALT/SGPT 32 U/L 12-78 ALT/SGPT [place] ([facility]) AST/SGOT 31 U/L 7-37 AST/SGOT [place] ([facility]) bilirubin,total 0.4 mg/dL 0.2-1.0 [facility] bilirubin,direct 0.1 mg/dL 0.0-0.2 Bilirubin,direct AT [facility]) alkaline phosphatase 99 U/L 45-117 Alkaline Phosph atase [place] ([facility]) albumin 3.2 gm/dL 3.2-5.2 Albumin [place] ([facility]) total protein 6.2 gm/dL 6.4-8.2 Below low normal Total Protein AT [facility] ([facility]) albumin/globulin ratio 1.2-2.2 Below low normal Albumin /globulin Ratio [place] ([facility]) ID Date Data Source [id number] 06/16/2020 10:01:00 AM EDT [place] ([facility]) Name Value Range Interpretation Code Description Data Elizabeth rce(s) Supporting Document(s) CK-mb value mass < 1.0 <3.6 CK-mb Value Mass AT [facility] ([facility]) CPK creatine phosphokinase 59 U/L 26-192 CPK Creat ine Phosphokinase [place] ([facility]) mb/CK relative index < or =4 mb/CK Relative Index [place] ([facility]) troponin I < 0.02 < 0.10 Troponin I [place] ([facility]) ID Date Data Source [id number] 06/16/2020 10:01:00 AM EDT [place] ([facility]) Name Value Range Interpretation Code Description Data Elizabeth rce(s) Supporting Document(s) lactic acid sepsis protocol 1.0 mmol/L 0.4-2.0 Lactic A spencer Sepsis Protocol [facility]) ID Date Data Source [id number] 06/16/2020 10:01:00 AM EDT [place] ([facility]) Name Value Range Interpretation Code Description Data Elizabeth rce(s) Supporting Document(s) white blood count 3.9 10 4.0-10.0 Below low normal White Blood Count [place] ([facility]) hemoglobin 14.3 g/dL 12.0-15.5 Hemoglobin [place] ([facility]) red blood count 4.75 10 4.00-5.40 Red Blood Count [place] ([facility]) mean corpuscular volume 92.6 fL 80.0-96.0 Mean Corpusc ular Volume [place] ([facility]) hematocrit 44.0 % 36.0-47.0 Hematocrit [place] ([facility]) mean corpuscular HGB conc 32.5 g/dL 32.0-36.5 Mean Corpu scular HGB Conc [place] ([facility]) mean corpuscular hemoglobin 30.1 pg 27.0-33.0 Mean Cor puscular Hemoglobin [place] ([facility]) red cell distribution width 12.6 % 11.5-14.5 Red Cell Distribution Width [place] ([facility]) platelet count, automated 157 10 150-450 Platelet C ount, Automated [place] ([facility]) neutrophils % 65.7 % 36.0-66.0 Neutrophils % [place] ( [facility]) mono % 11.6 % 2.0-8.0 Above high normal [place] % [place] ([facility]) lymph % 19.1 % 24.0-44.0 Below low normal Lymph % [place] ( [facility]) eos % 2.3 % 0.0-3.0 Eos % [place] ([facility]) baso % 0.8 % 0.0-1.0 Baso % [place] ([facility]) immature granulocyte % 0.5 % 0-3.0 Immature Gran ulocyte % [place] ([facility]) nucleated red blood cell % 0.0 % 0-0 Nucleated Red Blood Cell % [place] ([facility]) neutrophils # 2.6 10 1.5-8.5 Neutrophils # [place] ( [facility]) lymph # 0.7 10 1.5-5.0 Below low normal Lymph # [place] ( [facility]) mono # 0.5 10 0.0-0.8 [place] # [place] ([facility]) baso # 0.0 10 0.0-0.2 Baso # [place] ([facility]) eos # 0.1 10 0.0-0.5 Eos # [place] ([facility]) ID Date Data Source [id number] 06/16/2020 10:01:00 AM EDT [place] ([facility]) Name Value Range Interpretation Code Description Data Elizabeth rce(s) Supporting Document(s) lipase 96 U/L 73-393 Lipase [place] ([facility]) ID Date Data Source [id number] 06/16/2020 10:01:00 AM EDT [place] ([facility]) Name Value Range Interpretation Code Description Data Elizabeth rce(s) Supporting Document(s) amylase 28 U/L 25-115 Amylase [place] ([facility]) ID Date Data Source [id number] 06/16/2020 10:01:00 AM EDT [facility]) Name Value Range Interpretation Code Description Data Elizabeth rce(s) Supporting Document(s) glucose, fasting 97 mg/dL 70-100 Glucose, Fasting AT [facility]) blood urea nitrogen 11 mg/dL 7-18 Blood Urea Nitro gen [place] ([facility]) creatinine for GFR 0.88 mg/dL 0.55-1.30 Creatinine for GF R [place] ([facility]) sodium level 140 mEq/L 136-145 Sodium Level [place] ([facility]) glomerular filtration rate > 60.0 >51 Glomerula r Filtration Rate [place] ([facility]) potassium serum 3.7 mEq/L 3.5-5.1 Potassium Serum [facility] [place] ([facility]) carbon dioxide level 30 mEq/L 21-32 Carbon Dioxide Level [place] ([facility]) chloride level 106 mEq/L 98-107 Chloride Level [place] ([facility]) anion gap 4 mEq/L 8-16 Below low normal Anion Gap [place] ( [facility]) calcium level 8.9 mg/dL 8.5-10.1 Calcium Level [facility]) ID Date Data Source [id number] 06/16/2020 10:01:00 AM EDT [facility]) Name Value Range Interpretation Code Description Data Elizabeth rce(s) Supporting Document(s) ALT/SGPT 32 U/L 12-78 ALT/SGPT [place] ([facility]) AST/SGOT 31 U/L 7-37 AST/SGOT [place] ([facility]) bilirubin,total 0.4 mg/dL 0.2-1.0 Bilirubin,total [place] ([facility]) alkaline phosphatase 99 U/L 45-117 Alkaline Phosph atase [place] ([facility]) bilirubin,direct 0.1 mg/dL 0.0-0.2 Bilirubin,direct AT [facility] ([facility]) total protein 6.2 gm/dL 6.4-8.2 Below low normal Total Protein AT [facility] ([facility]) albumin 3.2 gm/dL 3.2-5.2 Albumin [place] ([facility]) albumin/globulin ratio 1.2-2.2 Below low normal Albumin /globulin Ratio [place] ([facility]) ID Date Data Source [id number] 06/16/2020 10:01:00 AM EDT [place] ([facility]) Name Value Range Interpretation Code Description Data Elizabeth rce(s) Supporting Document(s) CPK creatine phosphokinase 59 U/L 26-192 CPK Creat ine Phosphokinase [place] ([facility]) CK-mb value mass < 1.0 <3.6 CK-mb Value Mass AT [facility] ([facility]) mb/CK relative index < or =4 mb/CK Relative Index [place] ([facility]) troponin I < 0.02 < 0.10 Troponin I [place] ([facility]) ID Date Data Source [id number] 06/16/2020 10:01:00 AM EDT [place] ([facility]) Name Value Range Interpretation Code Description Data Elizabeth rce(s) Supporting Document(s) lactic acid sepsis protocol 1.0 mmol/L 0.4-2.0 Lactic A spencer Sepsis Protocol [place] ([facility]) ID Date Data Source [id number] 06/16/2020 10:01:00 AM EDT [place] ([facility]) Name Value Range Interpretation Code Description Data Elizabeth rce(s) Supporting Document(s) white blood count 3.9 10 4.0-10.0 Below low normal White Blood Count [place] ([facility]) red blood count 4.75 10 4.00-5.40 Red Blood Count [place] ([facility]) hemoglobin 14.3 g/dL 12.0-15.5 Hemoglobin [place] ([facility]) mean corpuscular volume 92.6 fL 80.0-96.0 Mean Corpusc ular Volume [place] ([facility]) hematocrit 44.0 % 36.0-47.0 Hematocrit [place] ([facility]) mean corpuscular hemoglobin 30.1 pg 27.0-33.0 Mean Cor puscular Hemoglobin [place] ([facility]) mean corpuscular HGB conc 32.5 g/dL 32.0-36.5 Mean Corpu scular HGB Conc [place] ([facility]) platelet count, automated 157 10 150-450 Platelet C ount, Automated [place] ([facility]) red cell distribution width 12.6 % 11.5-14.5 Red Cell Distribution Width [place] ([facility]) lymph % 19.1 % 24.0-44.0 Below low normal Lymph % [place] ( [facility]) neutrophils % 65.7 % 36.0-66.0 Neutrophils % [place] ( [facility]) mono % 11.6 % 2.0-8.0 Above high normal [place] % [place] ([facility]) eos % 2.3 % 0.0-3.0 Eos % [place] ([facility]) baso % 0.8 % 0.0-1.0 Baso % [place] ([facility]) immature granulocyte % 0.5 % 0-3.0 Immature Gran ulocyte % [place] ([facility]) nucleated red blood cell % 0.0 % 0-0 Nucleated Red Blood Cell % [place] ([facility]) neutrophils # 2.6 10 1.5-8.5 Neutrophils # [place] ( [facility]) lymph # 0.7 10 1.5-5.0 Below low normal Lymph # [place] ( [facility]) mono # 0.5 10 0.0-0.8 [place] # [place] ([facility]) eos # 0.1 10 0.0-0.5 Eos # [place] ([facility]) baso # 0.0 10 0.0-0.2 Baso # [place] ([facility]) ID Date Data Source [id number] 06/16/2020 10:01:00 AM EDT [place] ([facility]) Name Value Range Interpretation Code Description Data Elizabeth rce(s) Supporting Document(s) lipase 96 U/L 73-393 Lipase [place] ([facility]) ID Date Data Source [id number] 06/16/2020 10:01:00 AM EDT [place] ([facility]) Name Value Range Interpretation Code Description Data Elizabeth rce(s) Supporting Document(s) amylase 28 U/L 25-115 Amylase [place] ([facility]) ID Date Data Source [id number] 06/16/2020 10:01:00 AM EDT [place] ([facility]) Name Value Range Interpretation Code Description Data Elizabeth rce(s) Supporting Document(s) glucose, fasting 97 mg/dL 70-100 Glucose, Fasting AT [facility] ([facility]) blood urea nitrogen 11 mg/dL 7-18 Blood Urea Nitro gen [place] ([facility]) creatinine for GFR 0.88 mg/dL 0.55-1.30 Creatinine for GF R [place] ([facility]) glomerular filtration rate > 60.0 >51 Glomerula r Filtration Rate [place] ([facility]) sodium level 140 mEq/L 136-145 Sodium Level [place] (No [facility]) potassium serum 3.7 mEq/L 3.5-5.1 Potassium Serum [place] ([facility]) chloride level 106 mEq/L 98-107 Chloride Level [place] ([facility]) carbon dioxide level 30 mEq/L 21-32 Carbon Dioxide Level [place] ([facility]) anion gap 4 mEq/L 8-16 Below low normal Anion Gap [place] ( [facility]) calcium level 8.9 mg/dL 8.5-10.1 Calcium Level [place] ( [facility]) ID Date Data Source [id number] 06/16/2020 10:01:00 AM EDT [place] ([facility]) Name Value Range Interpretation Code Description Data Elizabeth rce(s) Supporting Document(s) AST/SGOT 31 U/L 7-37 AST/SGOT [place] ([facility]) ALT/SGPT 32 U/L 12-78 ALT/SGPT [place] ([facility]) alkaline phosphatase 99 U/L 45-117 Alkaline Phosph atase [place] ([facility]) bilirubin,total 0.4 mg/dL 0.2-1.0 Bilirubin,total [place] ([facility]) bilirubin,direct 0.1 mg/dL 0.0-0.2 Bilirubin,direct AT [facility] ([facility]) total protein 6.2 gm/dL 6.4-8.2 Below low normal Total Protein AT [facility] ([facility]) albumin 3.2 gm/dL 3.2-5.2 Albumin [place] ([facility]) albumin/globulin ratio 1.2-2.2 Below low normal Albumin /globulin Ratio [place] ([facility]) ID Date Data Source [id number] 06/16/2020 10:01:00 AM EDT [place] ([facility]) Name Value Range Interpretation Code Description Data Elizabeth rce(s) Supporting Document(s) CPK creatine phosphokinase 59 U/L 26-192 CPK Creat ine Phosphokinase [place] ([facility]) CK-mb value mass < 1.0 <3.6 CK-mb Value Mass AT [facility] ([facility]) mb/CK relative index < or =4 mb/CK Relative Index [place] ([facility]) troponin I < 0.02 < 0.10 Troponin I [place] ([facility]) ID Date Data Source [id number] 06/16/2020 10:01:00 AM EDT [place] ([facility]) Name Value Range Interpretation Code Description Data Elizabeth rce(s) Supporting Document(s) lactic acid sepsis protocol 1.0 mmol/L 0.4-2.0 Lactic A spencer Sepsis Protocol [place] ([facility]) ID Date Data Source [id number] 06/16/2020 10:01:00 AM EDT [place] ([facility]) Name Value Range Interpretation Code Description Data Elizabeth rce(s) Supporting Document(s) white blood count 3.9 10 4.0-10.0 Below low normal White Blood Count [place] ([facility]) hemoglobin 14.3 g/dL 12.0-15.5 Hemoglobin [place] ([facility]) red blood count 4.75 10 4.00-5.40 Red Blood Count [facility] ([facility]) hematocrit 44.0 % 36.0-47.0 Hematocrit [place] ([facility]) mean corpuscular volume 92.6 fL 80.0-96.0 Mean Corpusc ular Volume [place] ([facility]) mean corpuscular hemoglobin 30.1 pg 27.0-33.0 Mean Cor puscular Hemoglobin [place] ([facility]) mean corpuscular HGB conc 32.5 g/dL 32.0-36.5 Mean Corpu scular HGB Conc [place] ([facility]) platelet count, automated 157 10 150-450 Platelet C ount, Automated [place] ([facility]) red cell distribution width 12.6 % 11.5-14.5 Red Cell Distribution Width [place] ([facility]) neutrophils % 65.7 % 36.0-66.0 Neutrophils % [place] ( [facility]) mono % 11.6 % 2.0-8.0 Above high normal [place] % [place] ([facility]) lymph % 19.1 % 24.0-44.0 Below low normal Lymph % [place] ( [facility]) eos % 2.3 % 0.0-3.0 Eos % [place] ([facility]) baso % 0.8 % 0.0-1.0 Baso % [place] ([facility]) immature granulocyte % 0.5 % 0-3.0 Immature Gran ulocyte % [place] ([facility]) nucleated red blood cell % 0.0 % 0-0 Nucleated Red Blood Cell % [place] ([facility]) neutrophils # 2.6 10 1.5-8.5 Neutrophils # [place] ( [facility]) mono # 0.5 10 0.0-0.8 [place] # [place] ([facility]) lymph # 0.7 10 1.5-5.0 Below low normal Lymph # [place] ( [facility]) eos # 0.1 10 0.0-0.5 Eos # [place] ([facility]) baso # 0.0 10 0.0-0.2 Baso # [place] ([facility]) ID Date Data Source [id number] 06/02/2020 02:43:00 PM EDT [place] ([facility]) Name Value Range Interpretation Code Description Data Elizabeth rce(s) Supporting Document(s) white blood count 6.1 10 4.0-10.0 White Blood Count [place] ([facility]) red blood count 4.92 10 4.00-5.40 Red Blood Count [place] [place] ([facility]) hemoglobin 15.0 g/dL 12.0-15.5 Hemoglobin [place] ([facility]) mean corpuscular volume 92.7 fL 80.0-96.0 Mean Corpusc ular Volume [place] ([facility]) hematocrit 45.6 % 36.0-47.0 Hematocrit [place] ([facility]) mean corpuscular hemoglobin 30.5 pg 27.0-33.0 Mean Cor puscular Hemoglobin [place] ([facility]) red cell distribution width 12.9 % 11.5-14.5 Red Cell Distribution Width [place] ([facility]) mean corpuscular HGB conc 32.9 g/dL 32.0-36.5 Mean Corpu scular HGB Conc [place] ([facility]) platelet count, automated 208 10 150-450 Platelet C ount, Automated [place] ([facility]) neutrophils % 57.3 % 36.0-66.0 Neutrophils % [place] ( [facility]) lymph % 34.0 % 24.0-44.0 Lymph % [place] ([facility]) mono % 7.2 % 2.0-8.0 [place] % [place] ([facility]) eos % 1.0 % 0.0-3.0 Eos % [place] ([facility]) baso % 0.2 % 0.0-1.0 Baso % [place] ([facility]) nucleated red blood cell % 0.0 % 0-0 Nucleated Red Blood Cell % [place] ([facility]) immature granulocyte % 0.3 % 0-3.0 Immature Gran ulocyte % [place] ([facility]) neutrophils # 3.5 10 1.5-8.5 Neutrophils # [place] ( [facility]) lymph # 2.1 10 1.5-5.0 Lymph # [place] ([facility]) eos # 0.1 10 0.0-0.5 Eos # [place] ([facility]) mono # 0.4 10 0.0-0.8 [place] # [place] ([facility]) baso # 0.0 10 0.0-0.2 Baso # [place] ([facility]) ID Date Data Source [id number] 06/02/2020 02:43:00 PM EDT [place] ([facility]) Name Value Range Interpretation Code Description Data Elizabeth rce(s) Supporting Document(s) thyroid stimulating hormone 2.580 uIU/mL 0.358-3.740 Thyroid Stimulating Hormone [place] ([facility]) ID Date Data Source [id number] 06/02/2020 02:43:00 PM EDT [place] ([facility]) Name Value Range Interpretation Code Description Data Elizabeth rce(s) Supporting Document(s) troponin I < 0.02 < 0.10 Troponin I [place] ([facility]) ID Date Data Source [id number] 06/02/2020 02:43:00 PM EDT [place] ([facility]) Name Value Range Interpretation Code Description Data Elizabeth rce(s) Supporting Document(s) glucose, fasting 115 mg/dL 70-100 Above high normal Glucose, Fas ting [place] ([facility]) blood urea nitrogen 10 mg/dL 7-18 Blood Urea Nitro gen [place] ([facility]) creatinine for GFR 1.12 mg/dL 0.55-1.30 Creatinine for GF R [place] ([facility]) glomerular filtration rate >51 Glomerula r Filtration Rate [place] ([facility]) sodium level 145 mEq/L 136-145 Sodium Level [place] ([facility]) potassium serum 4.2 mEq/L 3.5-5.1 Potassium Serum [facility] ([facility]) chloride level 109 mEq/L 98-107 Above high normal Chloride Level [place] ([facility]) anion gap 3 mEq/L 8-16 Below low normal Anion Gap [place] ( [facility]) carbon dioxide level 33 mEq/L 21-32 Above high normal Carbon D ioxide Level [place] ([facility]) calcium level 9.3 mg/dL 8.5-10.1 Calcium Level [place] ( [facility]) ID Date Data Source [id number] 06/02/2020 02:43:00 PM EDT [facility]) Name Value Range Interpretation Code Description Data Elizabeth rce(s) Supporting Document(s) CPK creatine phosphokinase 113 U/L 26-192 CPK Creat ine Phosphokinase [place] ([facility]) CK-mb value mass < 1.0 <3.6 CK-mb Value Mass AT [place] ([facility]) mb/CK relative index < or =4 mb/CK Relative Index [place] ([facility]) ID Date Data Source [id number] 06/02/2020 02:43:00 PM EDT [place] ([facility]) Name Value Range Interpretation Code Description Data Elizabeth rce(s) Supporting Document(s) partial thromboplastin time 26.8 seconds 24.2-38.5 Partial Thromboplastin Time [place] ([facility]) ID Date Data Source [id number] 06/02/2020 02:43:00 PM EDT [place] ([facility]) Name Value Range Interpretation Code Description Data Elizabeth rce(s) Supporting Document(s) prothrombin time 12.3 seconds 12.5-14.3 Prothrombin Time [place] ([facility]) INR Inr [place] ([facility]) ID Date Data Source [id number] 06/02/2020 02:43:00 PM EDT [place] ([facility]) Name Value Range Interpretation Code Description Data Elizabeth rce(s) Supporting Document(s) white blood count 6.1 10 4.0-10.0 White Blood Count [place] ([facility]) red blood count 4.92 10 4.00-5.40 Red Blood Count [facility] ([facility]) hematocrit 45.6 % 36.0-47.0 Hematocrit [place] ([facility]) hemoglobin 15.0 g/dL 12.0-15.5 Hemoglobin [place] ([facility]) mean corpuscular volume 92.7 fL 80.0-96.0 Mean Corpusc ular Volume [place] ([facility]) mean corpuscular hemoglobin 30.5 pg 27.0-33.0 Mean Cor puscular Hemoglobin [place] ([facility]) red cell distribution width 12.9 % 11.5-14.5 Red Cell Distribution Width [place] ([facility]) mean corpuscular HGB conc 32.9 g/dL 32.0-36.5 Mean Corpu scular HGB Conc [place] ([facility]) platelet count, automated 208 10 150-450 Platelet C ount, Automated [place] ([facility]) neutrophils % 57.3 % 36.0-66.0 Neutrophils % [place] ( [facility]) lymph % 34.0 % 24.0-44.0 Lymph % [place] ([facility]) mono % 7.2 % 2.0-8.0 [place] % [place] ([facility]) eos % 1.0 % 0.0-3.0 Eos % [place] ([facility]) baso % 0.2 % 0.0-1.0 Baso % [place] ([facility]) immature granulocyte % 0.3 % 0-3.0 Immature Gran ulocyte % [place] ([facility]) nucleated red blood cell % 0.0 % 0-0 Nucleated Red Blood Cell % [place] ([facility]) neutrophils # 3.5 10 1.5-8.5 Neutrophils # [place] ( [facility]) lymph # 2.1 10 1.5-5.0 Lymph # [place] ([facility]) mono # 0.4 10 0.0-0.8 [place] # [place] ([facility]) eos # 0.1 10 0.0-0.5 Eos # [place] ([facility]) baso # 0.0 10 0.0-0.2 Baso # [place] ([facility]) ID Date Data Source [id number] 06/02/2020 02:43:00 PM EDT [place] ([facility]) Name Value Range Interpretation Code Description Data Elizabeth rce(s) Supporting Document(s) thyroid stimulating hormone 2.580 uIU/mL 0.358-3.740 Thyroid Stimulating Hormone [place] ([facility]) ID Date Data Source [id number] 06/02/2020 02:43:00 PM EDT [place] ([facility]) Name Value Range Interpretation Code Description Data Elizabeth rce(s) Supporting Document(s) troponin I < 0.02 < 0.10 Troponin I [place] ([facility]) ID Date Data Source [id number] 06/02/2020 02:43:00 PM EDT [place] ([facility]) Name Value Range Interpretation Code Description Data Elizabeth rce(s) Supporting Document(s) glucose, fasting 115 mg/dL 70-100 Above high normal Glucose, Fas ting [place] ([facility]) blood urea nitrogen 10 mg/dL 7-18 Blood Urea Nitro gen [place] ([facility]) creatinine for GFR 1.12 mg/dL 0.55-1.30 Creatinine for GF R [place] ([facility]) sodium level 145 mEq/L 136-145 Sodium Level [place] (No [facility]) glomerular filtration rate >51 Glomerula r Filtration Rate [place] ([facility]) chloride level 109 mEq/L 98-107 Above high normal Chloride Level [place] ([facility]) potassium serum 4.2 mEq/L 3.5-5.1 Potassium Serum [place] ([facility]) carbon dioxide level 33 mEq/L 21-32 Above high normal Carbon D ioxide Level [place] ([facility]) anion gap 3 mEq/L 8-16 Below low normal Anion Gap [place] ( [facility]) calcium level 9.3 mg/dL 8.5-10.1 Calcium Level [place] ( [facility]) ID Date Data Source [id number] 06/02/2020 02:43:00 PM EDT [place] ([facility]) Name Value Range Interpretation Code Description Data Elizabeth rce(s) Supporting Document(s) mb/CK relative index < or =4 mb/CK Relative Index [place] ([facility]) CK-mb value mass < 1.0 <3.6 CK-mb Value Mass AT [place] ([facility]) CPK creatine phosphokinase 113 U/L 26-192 CPK Creat ine Phosphokinase [place] ([facility]) ID Date Data Source [id number] 06/02/2020 02:43:00 PM EDT [place] ([facility]) Name Value Range Interpretation Code Description Data Elizabeth rce(s) Supporting Document(s) partial thromboplastin time 26.8 seconds 24.2-38.5 Partial Thromboplastin Time [place] ([facility]) ID Date Data Source [id number] 06/02/2020 02:43:00 PM EDT [place] ([facility]) Name Value Range Interpretation Code Description Data Elizabeth rce(s) Supporting Document(s) prothrombin time 12.3 seconds 12.5-14.3 Prothrombin Time [place] ([facility]) INR Inr [place] ([facility]) ID Date Data Source [id number] 06/02/2020 02:43:00 PM EDT [place] ([facility]) Name Value Range Interpretation Code Description Data Elizabeth rce(s) Supporting Document(s) white blood count 6.1 10 4.0-10.0 White Blood Count [place] ([facility]) hemoglobin 15.0 g/dL 12.0-15.5 Hemoglobin [place] ([facility]) red blood count 4.92 10 4.00-5.40 Red Blood Count [place] ([facility]) mean corpuscular volume 92.7 fL 80.0-96.0 Mean Corpusc ular Volume [place] ([facility]) hematocrit 45.6 % 36.0-47.0 Hematocrit [place] ([facility]) mean corpuscular hemoglobin 30.5 pg 27.0-33.0 Mean Cor puscular Hemoglobin [place] ([facility]) mean corpuscular HGB conc 32.9 g/dL 32.0-36.5 Mean Corpu scular HGB Conc [place] ([facility]) red cell distribution width 12.9 % 11.5-14.5 Red Cell Distribution Width [place] ([facility]) platelet count, automated 208 10 150-450 Platelet C ount, Automated [place] ([facility]) lymph % 34.0 % 24.0-44.0 Lymph % [place] ([facility]) neutrophils % 57.3 % 36.0-66.0 Neutrophils % [place] ( [facility]) eos % 1.0 % 0.0-3.0 Eos % [place] ([facility]) baso % 0.2 % 0.0-1.0 Baso % [place] ([facility]) mono % 7.2 % 2.0-8.0 [place] % [place] ([facility]) neutrophils # 3.5 10 1.5-8.5 Neutrophils # [place] ( [facility]) immature granulocyte % 0.3 % 0-3.0 Immature Gran ulocyte % [place] ([facility]) nucleated red blood cell % 0.0 % 0-0 Nucleated Red Blood Cell % [place] ([facility]) mono # 0.4 10 0.0-0.8 [place] # [place] ([facility]) lymph # 2.1 10 1.5-5.0 Lymph # [place] ([facility]) eos # 0.1 10 0.0-0.5 Eos # [place] ([facility]) baso # 0.0 10 0.0-0.2 Baso # [place] ([facility]) ID Date Data Source [id number] 06/02/2020 02:43:00 PM EDT [place] ([facility]) Name Value Range Interpretation Code Description Data Elizabeth rce(s) Supporting Document(s) thyroid stimulating hormone 2.580 uIU/mL 0.358-3.740 Thyroid Stimulating Hormone [place] ([facility]) ID Date Data Source [id number] 06/02/2020 02:43:00 PM EDT [place] ([facility]) Name Value Range Interpretation Code Description Data Elizabeth rce(s) Supporting Document(s) troponin I < 0.02 < 0.10 Troponin I [place] ([facility]) ID Date Data Source [id number] 06/02/2020 02:43:00 PM EDT [place] ([facility]) Name Value Range Interpretation Code Description Data Elizabeth rce(s) Supporting Document(s) blood urea nitrogen 10 mg/dL 7-18 Blood Urea Nitro gen [place] ([facility]) glucose, fasting 115 mg/dL 70-100 Above high normal Glucose, Fas ting [place] ([facility]) sodium level 145 mEq/L 136-145 Sodium Level [place] (No [facility]) glomerular filtration rate >51 Glomerula r Filtration Rate [place] ([facility]) creatinine for GFR 1.12 mg/dL 0.55-1.30 Creatinine for GF R [place] ([facility]) chloride level 109 mEq/L 98-107 Above high normal Chloride Level [place] ([facility]) carbon dioxide level 33 mEq/L 21-32 Above high normal Carbon D ioxide Level [place] ([facility]) potassium serum 4.2 mEq/L 3.5-5.1 Potassium Serum [place] ([facility]) calcium level 9.3 mg/dL 8.5-10.1 Calcium Level [place] ( [facility]) anion gap 3 mEq/L 8-16 Below low normal Anion Gap [place] ( [facility]) ID Date Data Source [id number] 06/02/2020 02:43:00 PM EDT [place] ([facility]) Name Value Range Interpretation Code Description Data Elizabeth rce(s) Supporting Document(s) CPK creatine phosphokinase 113 U/L 26-192 CPK Creat ine Phosphokinase [place] ([facility]) CK-mb value mass < 1.0 <3.6 CK-mb Value Mass AT [place] ([facility]) mb/CK relative index < or =4 mb/CK Relative Index [place] ([facility]) ID Date Data Source [id number] 06/02/2020 02:43:00 PM EDT [place] ([facility]) Name Value Range Interpretation Code Description Data Elizabeth rce(s) Supporting Document(s) partial thromboplastin time 26.8 seconds 24.2-38.5 Partial Thromboplastin Time [place] ([facility]) ID Date Data Source [id number] 06/02/2020 02:43:00 PM EDT [place] ([facility]) Name Value Range Interpretation Code Description Data Elizabeth rce(s) Supporting Document(s) prothrombin time 12.3 seconds 12.5-14.3 Prothrombin Time [place] ([facility]) INR Inr [place] ([facility]) ID Date Data Source [id number] 06/02/2020 02:43:00 PM EDT [place] ([facility]) Name Value Range Interpretation Code Description Data Elizabeth rce(s) Supporting Document(s) white blood count 6.1 10 4.0-10.0 White Blood Count [place] ([facility]) red blood count 4.92 10 4.00-5.40 Red Blood Count [place] ([facility]) hematocrit 45.6 % 36.0-47.0 Hematocrit [place] ([facility]) hemoglobin 15.0 g/dL 12.0-15.5 Hemoglobin [place] ([facility]) mean corpuscular volume 92.7 fL 80.0-96.0 Mean Corpusc ular Volume [place] ([facility]) mean corpuscular HGB conc 32.9 g/dL 32.0-36.5 Mean Corpu scular HGB Conc [place] ([facility]) mean corpuscular hemoglobin 30.5 pg 27.0-33.0 Mean Cor puscular Hemoglobin [place] ([facility]) platelet count, automated 208 10 150-450 Platelet C ount, Automated [place] ([facility]) red cell distribution width 12.9 % 11.5-14.5 Red Cell Distribution Width [place] ([facility]) neutrophils % 57.3 % 36.0-66.0 Neutrophils % [place] ( [facility]) lymph % 34.0 % 24.0-44.0 Lymph % [place] ([facility]) eos % 1.0 % 0.0-3.0 Eos % [place] ([facility]) mono % 7.2 % 2.0-8.0 [place] % [place] ([facility]) immature granulocyte % 0.3 % 0-3.0 Immature Gran ulocyte % [place] ([facility]) baso % 0.2 % 0.0-1.0 Baso % [place] ([facility]) nucleated red blood cell % 0.0 % 0-0 Nucleated Red Blood Cell % [place] ([facility]) mono # 0.4 10 0.0-0.8 [place] # [place] ([facility]) lymph # 2.1 10 1.5-5.0 Lymph # [place] ([facility]) neutrophils # 3.5 10 1.5-8.5 Neutrophils # [place] ( [facility]) eos # 0.1 10 0.0-0.5 Eos # [place] ([facility]) baso # 0.0 10 0.0-0.2 Baso # [place] ([facility]) ID Date Data Source [id number] 06/02/2020 02:43:00 PM EDT [place] ([facility]) Name Value Range Interpretation Code Description Data Elizabeth rce(s) Supporting Document(s) thyroid stimulating hormone 2.580 uIU/mL 0.358-3.740 Thyroid Stimulating Hormone [place] ([facility]) ID Date Data Source [id number] 06/02/2020 02:43:00 PM EDT [place] ([facility]) Name Value Range Interpretation Code Description Data Elizabeth rce(s) Supporting Document(s) troponin I < 0.02 < 0.10 Troponin I [place] ([facility]) ID Date Data Source [id number] 06/02/2020 02:43:00 PM EDT [place] ([facility]) Name Value Range Interpretation Code Description Data Elizabeth rce(s) Supporting Document(s) glucose, fasting 115 mg/dL 70-100 Above high normal Glucose, Fas ting [place] ([facility]) creatinine for GFR 1.12 mg/dL 0.55-1.30 Creatinine for GF R [place] ([facility]) glomerular filtration rate >51 Glomerula r Filtration Rate [place] ([facility]) blood urea nitrogen 10 mg/dL 7-18 Blood Urea Nitro gen [place] ([facility]) sodium level 145 mEq/L 136-145 Sodium Level [place] (No [facility]) potassium serum 4.2 mEq/L 3.5-5.1 Potassium Serum [place] ([facility]) chloride level 109 mEq/L 98-107 Above high normal Chloride Level [place] ([facility]) carbon dioxide level 33 mEq/L 21-32 Above high normal Carbon D ioxide Level [place] ([facility]) anion gap 3 mEq/L 8-16 Below low normal Anion Gap [place] ( [facility]) calcium level 9.3 mg/dL 8.5-10.1 Calcium Level [place] ( [facility]) ID Date Data Source [id number] 06/02/2020 02:43:00 PM EDT [place] ([facility]) Name Value Range Interpretation Code Description Data Elizabeth rce(s) Supporting Document(s) CK-mb value mass < 1.0 <3.6 CK-mb Value Mass AT [facility]) CPK creatine phosphokinase 113 U/L 26-192 CPK Creat ine Phosphokinase [place] ([facility]) mb/CK relative index < or =4 mb/CK Relative Index [facility]) ID Date Data Source [id number] 06/02/2020 02:43:00 PM EDT [place] ([facility]) Name Value Range Interpretation Code Description Data Elizabeth rce(s) Supporting Document(s) partial thromboplastin time 26.8 seconds 24.2-38.5 Partial Thromboplastin Time [place] ([facility]) ID Date Data Source [id number] 06/02/2020 02:43:00 PM EDT [place] ([facility]) Name Value Range Interpretation Code Description Data Elizabeth rce(s) Supporting Document(s) INR Inr [place] ([facility]) prothrombin time 12.3 seconds 12.5-14.3 Prothrombin Time [place] ([facility]) ID Date Data Source [id number] 06/02/2020 02:43:00 PM EDT [place] ([facility]) Name Value Range Interpretation Code Description Data Elizabeth rce(s) Supporting Document(s) white blood count 6.1 10 4.0-10.0 White Blood Count [place] ([facility]) hemoglobin 15.0 g/dL 12.0-15.5 Hemoglobin [place] ([facility]) red blood count 4.92 10 4.00-5.40 Red Blood Count [place] ([facility]) hematocrit 45.6 % 36.0-47.0 Hematocrit [place] ([facility]) mean corpuscular HGB conc 32.9 g/dL 32.0-36.5 Mean Corpu scular HGB Conc [place] ([facility]) mean corpuscular volume 92.7 fL 80.0-96.0 Mean Corpusc ular Volume [place] ([facility]) mean corpuscular hemoglobin 30.5 pg 27.0-33.0 Mean Cor puscular Hemoglobin [place] ([facility]) platelet count, automated 208 10 150-450 Platelet C ount, Automated [place] ([facility]) red cell distribution width 12.9 % 11.5-14.5 Red Cell Distribution Width [place] ([facility]) neutrophils % 57.3 % 36.0-66.0 Neutrophils % [place] ( [facility]) eos % 1.0 % 0.0-3.0 Eos % [place] ([facility]) mono % 7.2 % 2.0-8.0 [place] % [place] ([facility]) lymph % 34.0 % 24.0-44.0 Lymph % [place] ([facility]) nucleated red blood cell % 0.0 % 0-0 Nucleated Red Blood Cell % [place] ([facility]) neutrophils # 3.5 10 1.5-8.5 Neutrophils # [place] ( [facility]) baso % 0.2 % 0.0-1.0 Baso % [place] ([facility]) immature granulocyte % 0.3 % 0-3.0 Immature Gran ulocyte % [place] ([facility]) lymph # 2.1 10 1.5-5.0 Lymph # [place] ([facility]) mono # 0.4 10 0.0-0.8 [place] # [place] ([facility]) eos # 0.1 10 0.0-0.5 Eos # [place] ([facility]) baso # 0.0 10 0.0-0.2 Baso # [place] ([facility]) ID Date Data Source [id number] 06/02/2020 02:43:00 PM EDT [place] ([facility]) Name Value Range Interpretation Code Description Data Elizabeth rce(s) Supporting Document(s) thyroid stimulating hormone 2.580 uIU/mL 0.358-3.740 Thyroid Stimulating Hormone [place] ([facility]) ID Date Data Source [id number] 06/02/2020 02:43:00 PM EDT [place] ([facility]) Name Value Range Interpretation Code Description Data Elizabeth rce(s) Supporting Document(s) troponin I < 0.02 < 0.10 Troponin I [place] ([facility]) ID Date Data Source [id number] 06/02/2020 02:43:00 PM EDT [place] ([facility]) Name Value Range Interpretation Code Description Data Elizabeth rce(s) Supporting Document(s) glucose, fasting 115 mg/dL 70-100 Above high normal Glucose, Fas ting [place] ([facility]) creatinine for GFR 1.12 mg/dL 0.55-1.30 Creatinine for GF R [place] ([facility]) blood urea nitrogen 10 mg/dL 7-18 Blood Urea Nitro gen [place] ([facility]) glomerular filtration rate >51 Glomerula r Filtration Rate [place] ([facility]) chloride level 109 mEq/L 98-107 Above high normal Chloride Level [place] ([facility]) potassium serum 4.2 mEq/L 3.5-5.1 Potassium Serum [place] ([facility]) sodium level 145 mEq/L 136-145 Sodium Level [place] (No [facility]) anion gap 3 mEq/L 8-16 Below low normal Anion Gap [place] ( [facility]) carbon dioxide level 33 mEq/L 21-32 Above high normal Carbon D ioxide Level [place] ([facility]) calcium level 9.3 mg/dL 8.5-10.1 Calcium Level [place] ( [facility]) ID Date Data Source [id number] 06/02/2020 02:43:00 PM EDT [place] ([facility]) Name Value Range Interpretation Code Description Data Elizabeth rce(s) Supporting Document(s) mb/CK relative index < or =4 mb/CK Relative Index [place] ([facility]) CPK creatine phosphokinase 113 U/L 26-192 CPK Creat ine Phosphokinase [place] ([facility]) CK-mb value mass < 1.0 <3.6 CK-mb Value Mass AT [facility]) ID Date Data Source [id number] 06/02/2020 02:43:00 PM EDT [place] ([facility]) Name Value Range Interpretation Code Description Data Elizabeth rce(s) Supporting Document(s) partial thromboplastin time 26.8 seconds 24.2-38.5 Partial Thromboplastin Time [place] ([facility]) ID Date Data Source [id number] 06/02/2020 02:43:00 PM EDT [place] ([facility]) Name Value Range Interpretation Code Description Data Elizabeth rce(s) Supporting Document(s) prothrombin time 12.3 seconds 12.5-14.3 Prothrombin Time [place] ([facility]) INR Inr [place] ([facility]) ID Date Data Source [id number] 06/02/2020 02:43:00 PM EDT [place] ([facility]) Name Value Range Interpretation Code Description Data Elizabeth rce(s) Supporting Document(s) red blood count 4.92 10 4.00-5.40 Red Blood Count [facility] ([facility]) white blood count 6.1 10 4.0-10.0 White Blood Count [place] ([facility]) hematocrit 45.6 % 36.0-47.0 Hematocrit [place] ([facility]) hemoglobin 15.0 g/dL 12.0-15.5 Hemoglobin [place] ([facility]) mean corpuscular volume 92.7 fL 80.0-96.0 Mean Corpusc ular Volume [place] ([facility]) mean corpuscular hemoglobin 30.5 pg 27.0-33.0 Mean Cor puscular Hemoglobin [place] ([facility]) mean corpuscular HGB conc 32.9 g/dL 32.0-36.5 Mean Corpu scular HGB Conc [place] ([facility]) red cell distribution width 12.9 % 11.5-14.5 Red Cell Distribution Width [place] ([facility]) platelet count, automated 208 10 150-450 Platelet C ount, Automated [place] ([facility]) neutrophils % 57.3 % 36.0-66.0 Neutrophils % [place] ( [facility]) eos % 1.0 % 0.0-3.0 Eos % [place] ([facility]) mono % 7.2 % 2.0-8.0 [place] % [place] ([facility]) lymph % 34.0 % 24.0-44.0 Lymph % [place] ([facility]) baso % 0.2 % 0.0-1.0 Baso % [place] ([facility]) immature granulocyte % 0.3 % 0-3.0 Immature Gran ulocyte % [place] ([facility]) lymph # 2.1 10 1.5-5.0 Lymph # [place] ([facility]) neutrophils # 3.5 10 1.5-8.5 Neutrophils # [place] ( [facility]) nucleated red blood cell % 0.0 % 0-0 Nucleated Red Blood Cell % [place] ([facility]) eos # 0.1 10 0.0-0.5 Eos # [place] ([facility]) mono # 0.4 10 0.0-0.8 [place] # [place] ([facility]) baso # 0.0 10 0.0-0.2 Baso # [place] ([facility]) ID Date Data Source [id number] 06/02/2020 02:43:00 PM EDT [place] ([facility]) Name Value Range Interpretation Code Description Data Elizabeth rce(s) Supporting Document(s) thyroid stimulating hormone 2.580 uIU/mL 0.358-3.740 Thyroid Stimulating Hormone [place] ([facility]) ID Date Data Source [id number] 06/02/2020 02:43:00 PM EDT [place] ([facility]) Name Value Range Interpretation Code Description Data Elizabeth rce(s) Supporting Document(s) troponin I < 0.02 < 0.10 Troponin I [place] ([facility]) ID Date Data Source [id number] 06/02/2020 02:43:00 PM EDT [place] ([facility]) Name Value Range Interpretation Code Description Data Elizabeth rce(s) Supporting Document(s) glucose, fasting 115 mg/dL 70-100 Above high normal Glucose, Fas ting [place] ([facility]) blood urea nitrogen 10 mg/dL 7-18 Blood Urea Nitro gen [place] ([facility]) creatinine for GFR 1.12 mg/dL 0.55-1.30 Creatinine for GF R [place] ([facility]) glomerular filtration rate >51 Glomerula r Filtration Rate [place] ([facility]) potassium serum 4.2 mEq/L 3.5-5.1 Potassium Serum [facility] NA ([facility]) chloride level 109 mEq/L 98-107 Above high normal Chloride Level [place] ([facility]) sodium level 145 mEq/L 136-145 Sodium Level [place] (No [facility]) anion gap 3 mEq/L 8-16 Below low normal Anion Gap [place] ( [facility]) carbon dioxide level 33 mEq/L 21-32 Above high normal Carbon D ioxide Level [place] ([facility]) calcium level 9.3 mg/dL 8.5-10.1 Calcium Level [place] ( [facility]) ID Date Data Source [id number] 06/02/2020 02:43:00 PM EDT [place] ([facility]) Name Value Range Interpretation Code Description Data Elizabeth rce(s) Supporting Document(s) CPK creatine phosphokinase 113 U/L 26-192 CPK Creat ine Phosphokinase [place] ([facility]) mb/CK relative index < or =4 mb/CK Relative Index [place] ([facility]) CK-mb value mass < 1.0 <3.6 CK-mb Value Mass [facility] [place] [facility]) ID Date Data Source [id number] 06/02/2020 02:43:00 PM EDT [facility]) Name Value Range Interpretation Code Description Data Elizabeth rce(s) Supporting Document(s) partial thromboplastin time 26.8 seconds 24.2-38.5 Partial Thromboplastin Time [facility]) ID Date Data Source [id number] 06/02/2020 02:43:00 PM EDT [place] ([facility]) Name Value Range Interpretation Code Description Data Elizabeth rce(s) Supporting Document(s) prothrombin time 12.3 seconds 12.5-14.3 Prothrombin Time [place] ([facility]) INR Inr [place] ([facility]) ID Date Data Source [id number] 06/02/2020 02:43:00 PM EDT [place] ([facility]) Name Value Range Interpretation Code Description Data Elizabeth rce(s) Supporting Document(s) white blood count 6.1 10 4.0-10.0 White Blood Count [place] ([facility]) red blood count 4.92 10 4.00-5.40 Red Blood Count [place] ([facility]) hemoglobin 15.0 g/dL 12.0-15.5 Hemoglobin [place] ([facility]) mean corpuscular volume 92.7 fL 80.0-96.0 Mean Corpusc ular Volume [place] ([facility]) hematocrit 45.6 % 36.0-47.0 Hematocrit [place] ([facility]) mean corpuscular HGB conc 32.9 g/dL 32.0-36.5 Mean Corpu scular HGB Conc [place] ([facility]) mean corpuscular hemoglobin 30.5 pg 27.0-33.0 Mean Cor puscular Hemoglobin [place] ([facility]) platelet count, automated 208 10 150-450 Platelet C ount, Automated [place] ([facility]) red cell distribution width 12.9 % 11.5-14.5 Red Cell Distribution Width [place] ([facility]) lymph % 34.0 % 24.0-44.0 Lymph % [place] ([facility]) neutrophils % 57.3 % 36.0-66.0 Neutrophils % [place] ( [facility]) mono % 7.2 % 2.0-8.0 [place] % [place] ([facility]) eos % 1.0 % 0.0-3.0 Eos % [place] ([facility]) baso % 0.2 % 0.0-1.0 Baso % [place] ([facility]) immature granulocyte % 0.3 % 0-3.0 Immature Gran ulocyte % [place] ([facility]) nucleated red blood cell % 0.0 % 0-0 Nucleated Red Blood Cell % [place] ([facility]) neutrophils # 3.5 10 1.5-8.5 Neutrophils # [place] ( [facility]) lymph # 2.1 10 1.5-5.0 Lymph # [place] ([facility]) eos # 0.1 10 0.0-0.5 Eos # [place] ([facility]) mono # 0.4 10 0.0-0.8 [place] # [place] ([facility]) baso # 0.0 10 0.0-0.2 Baso # [place] ([facility]) ID Date Data Source [id number] 06/02/2020 02:43:00 PM EDT [place] ([facility]) Name Value Range Interpretation Code Description Data Elizabeth rce(s) Supporting Document(s) thyroid stimulating hormone 2.580 uIU/mL 0.358-3.740 Thyroid Stimulating Hormone [place] ([facility]) ID Date Data Source [id number] 06/02/2020 02:43:00 PM EDT [place] ([facility]) Name Value Range Interpretation Code Description Data Elizabeth rce(s) Supporting Document(s) troponin I < 0.02 < 0.10 Troponin I [place] ([facility]) ID Date Data Source [id number] 06/02/2020 02:43:00 PM EDT [place] ([facility]) Name Value Range Interpretation Code Description Data Elizabeth rce(s) Supporting Document(s) blood urea nitrogen 10 mg/dL 7-18 Blood Urea Nitro gen [place] ([facility]) glucose, fasting 115 mg/dL 70-100 Above high normal Glucose, Fas ting [place] ([facility]) glomerular filtration rate >51 Glomerula r Filtration Rate [place] ([facility]) creatinine for GFR 1.12 mg/dL 0.55-1.30 Creatinine for GF R [place] ([facility]) sodium level 145 mEq/L 136-145 Sodium Level [place] ([facility]) chloride level 109 mEq/L 98-107 Above high normal Chloride Level [place] ([facility]) carbon dioxide level 33 mEq/L 21-32 Above high normal Carbon D ioxide Level [place] ([facility]) potassium serum 4.2 mEq/L 3.5-5.1 Potassium Serum [place] ([facility]) anion gap 3 mEq/L 8-16 Below low normal Anion Gap [place] ( [facility]) calcium level 9.3 mg/dL 8.5-10.1 Calcium Level [place] ( [facility]) ID Date Data Source [id number] 06/02/2020 02:43:00 PM EDT [place] ([facility]) Name Value Range Interpretation Code Description Data Elizabeth rce(s) Supporting Document(s) CPK creatine phosphokinase 113 U/L 26-192 CPK Creat ine Phosphokinase [place] ([facility]) CK-mb value mass < 1.0 <3.6 CK-mb Value Mass [place] ([facility]) mb/CK relative index < or =4 mb/CK Relative Index [place] ([facility]) ID Date Data Source [id number] 06/02/2020 02:43:00 PM EDT [facility]) Name Value Range Interpretation Code Description Data Elizabeth rce(s) Supporting Document(s) partial thromboplastin time 26.8 seconds 24.2-38.5 Partial Thromboplastin Time [place] ([facility]) ID Date Data Source [id number] 06/02/2020 02:43:00 PM EDT [place] ([facility]) Name Value Range Interpretation Code Description Data Elizabeth rce(s) Supporting Document(s) prothrombin time 12.3 seconds 12.5-14.3 Prothrombin Time [place] ([facility]) INR Inr [place] ([facility]) ID Date Data Source [id number] 05/03/2020 09:44:00 AM EST [place] ([facility]) Name Value Range Interpretation Code Description Data Elizabeth rce(s) Supporting Document(s) Hemoglobin A1c/Hemoglobin.total in Blood 5.2 % Hba1C [facility]) ID Date Data Source [id number] 05/03/2020 09:44:00 AM EST [place] ([facility]) Name Value Range Interpretation Code Description Data Elizabeth rce(s) Supporting Document(s) Hemoglobin A1c/Hemoglobin.total in Blood 5.2 % Hba1C [place] ([facility]) ID Date Data Source [id number] 05/03/2020 09:44:00 AM EST [facility]) Name Value Range Interpretation Code Description Data Elizabeth rce(s) Supporting Document(s) Hemoglobin A1c/Hemoglobin.total in Blood 5.2 % Hba1C [place] ([facility]) ID Date Data Source [id number] 05/03/2020 09:44:00 AM EST [facility]) Name Value Range Interpretation Code Description Data Elizabeth rce(s) Supporting Document(s) Hemoglobin A1c/Hemoglobin.total in Blood 5.2 % Hba1C [facility]) ID Date Data Source [id number] 05/03/2020 09:44:00 AM EST [facility]) Name Value Range Interpretation Code Description Data Elizabeth rce(s) Supporting Document(s) Hemoglobin A1c/Hemoglobin.total in Blood 5.2 % Hba1C [place] ([facility]) ID Date Data Source [id number] 05/03/2020 09:44:00 AM EST [place] ([facility]) Name Value Range Interpretation Code Description Data Elizabeth rce(s) Supporting Document(s) Hemoglobin A1c/Hemoglobin.total in Blood 5.2 % Hba1C [place] ([facility]) ID Date Data Source [id number] 05/03/2020 09:44:00 AM EST [place] ([facility]) Name Value Range Interpretation Code Description Data Elizabeth rce(s) Supporting Document(s) Hemoglobin A1c/Hemoglobin.total in Blood 5.2 % Hba1C [place] ([facility]) ID Date Data Source [id number] 05/03/2020 09:44:00 AM EST [place] ([facility]) Name Value Range Interpretation Code Description Data Elizabeth rce(s) Supporting Document(s) Hemoglobin A1c/Hemoglobin.total in Blood 5.2 % Hba1C [place] ([facility]) ID Date Data Source [id number] 05/03/2020 09:44:00 AM EST [place] ([facility]) Name Value Range Interpretation Code Description Data Elizabeth rce(s) Supporting Document(s) Hemoglobin A1c/Hemoglobin.total in Blood 5.2 % Hba1C [place] ([facility]) ID Date Data Source [id number] 05/03/2020 09:43:00 AM EST [place] ([facility]) Name Value Range Interpretation Code Description Data Elizabeth rce(s) Supporting Document(s) bilirubin neg Bilirubin [place] ([facility]) glucose neg Glucose [place] ([facility]) ketone neg Ketone [place] ([facility]) blood neg Blood [place] ([facility]) pH Ph [place] ([facility]) nitrite neg Nitrite [place] ([facility]) leukocytes neg Leukocytes [place] ([facility]) specific gravity Specific [place] ([facility]) urobilinogen Urobilinogen [place] ([facility]) protein neg Protein [place] ([facility]) ID Date Data Source [id number] 05/03/2020 09:43:00 AM EST [place] ([facility]) Name Value Range Interpretation Code Description Data Elizabeth rce(s) Supporting Document(s) bilirubin neg Bilirubin [place] ([facility]) blood neg Blood [place] ([facility]) ketone neg Ketone [place] ([facility]) leukocytes neg Leukocytes [place] ([facility]) glucose neg Glucose [place] ([facility]) pH Ph [place] ([facility]) nitrite neg Nitrite [place] ([facility]) protein neg Protein [place] ([facility]) specific gravity Specific [place] ([facility]) urobilinogen Urobilinogen [place] ([facility]) ID Date Data Source [id number] 05/03/2020 09:43:00 AM EST [place] ([facility]) Name Value Range Interpretation Code Description Data Elizabeth rce(s) Supporting Document(s) bilirubin neg Bilirubin [place] ([facility]) blood neg Blood [place] ([facility]) ketone neg Ketone [place] ([facility]) glucose neg Glucose [place] ([facility]) nitrite neg Nitrite [place] ([facility]) leukocytes neg Leukocytes [place] ([facility]) protein neg Protein [place] ([facility]) pH Ph [place] ([facility] specific gravity Specific [place] ([facility]) urobilinogen Urobilinogen [place] ([facility]) ID Date Data Source [id number] 05/03/2020 09:43:00 AM EST [place] ([facility]) Name Value Range Interpretation Code Description Data Elizabeth rce(s) Supporting Document(s) blood neg Blood [place] ([facility]) bilirubin neg Bilirubin [place] ([facility]) ketone neg Ketone [place] ([facility]) leukocytes neg Leukocytes [place] ([facility]) glucose neg Glucose [place] ([facility]) nitrite neg Nitrite [place] ([facility]) pH Ph [place] ([facility]) specific gravity Specific [place] ([facility]) protein neg Protein [place] ([facility]) urobilinogen Urobilinogen [place] ([facility]) ID Date Data Source [id number] 05/03/2020 09:43:00 AM EST [place] ([facility]) Name Value Range Interpretation Code Description Data Elizabeth rce(s) Supporting Document(s) bilirubin neg Bilirubin [place] ([facility]) blood neg Blood [place] ([facility]) glucose neg Glucose [place] ([facility]) leukocytes neg Leukocytes [place] ([facility]) pH Ph [place] ([facility] nitrite neg Nitrite [place] ([facility]) ketone neg Ketone [place] ([facility]) protein neg Protein [place] ([facility]) urobilinogen Urobilinogen [place] ([facility]) specific gravity Specific [place] ([facility]) ID Date Data Source [id number] 05/03/2020 09:43:00 AM EST [place] ([facility]) Name Value Range Interpretation Code Description Data Elizabeth rce(s) Supporting Document(s) bilirubin neg Bilirubin [place] ([facility]) blood neg Blood [place] ([facility]) glucose neg Glucose [place] ([facility]) ketone neg Ketone [place] ([facility]) leukocytes neg Leukocytes [place] ([facility]) pH Ph [place] ([facility]) nitrite neg Nitrite [place] ([facility]) protein neg Protein [place] ([facility]) specific gravity Specific [place] ([facility]) urobilinogen Urobilinogen [place] ([facility]) ID Date Data Source [id number] 05/03/2020 09:43:00 AM EST [place] ([facility]) Name Value Range Interpretation Code Description Data Elizabeth rce(s) Supporting Document(s) glucose neg Glucose [place] ([facility]) bilirubin neg Bilirubin [place] ([facility]) blood neg Blood [place] ([facility]) ketone neg Ketone [place] ([facility]) leukocytes neg Leukocytes [place] [facility]) nitrite neg Nitrite [place] [facility]) pH Ph [place] [facility]) urobilinogen Urobilinogen [place] [facility]) protein neg Protein [place] ([facility]) specific gravity Specific [place] ([facility]) ID Date Data Source [id number] 05/03/2020 09:43:00 AM EST [place] ([facility]) Name Value Range Interpretation Code Description Data Elizabeth rce(s) Supporting Document(s) glucose neg Glucose [place] ([facility]) bilirubin neg Bilirubin [place] ([facility]) blood neg Blood [place] ([facility]) nitrite neg Nitrite [place] ([facility]) ketone neg Ketone [place] ([facility]) pH Ph [place] ([facility]) leukocytes neg Leukocytes [place] ([facility]) urobilinogen Urobilinogen [place] ([facility]) protein neg Protein [place] ([facility]) specific gravity Specific [place] ([facility]) ID Date Data Source [id number] 05/03/2020 09:43:00 AM EST [place] ([facility]) Name Value Range Interpretation Code Description Data Elizabeth rce(s) Supporting Document(s) blood neg Blood [place] ([facility]) bilirubin neg Bilirubin [place] ([facility]) ketone neg Ketone [place] ([facility]) glucose neg Glucose [place] ([facility]) nitrite neg Nitrite [place] ([facility]) leukocytes neg Leukocytes [place] ([facility]) protein neg Protein [place] ([facility]) pH Ph [place] ([facility]) specific gravity Specific [place] ([facility]) urobilinogen Urobilinogen [place] ([facility]) ID Date Data Source [id number] 04/18/2020 10:30:00 AM EST [facility] Name Value Range Interpretation Code Description Data Elizabeth rce(s) Supporting Document(s) SARS coronavirus 2 RNA Not Detected [facility] [place] This lab was ordered by [facility] and reported by [facility]. ID Date Data Source [id number] 01/30/2020 10:37:00 PM EST [place] ([facility]) Name Value Range Interpretation Code Description Data Elizabeth rce(s) Supporting Document(s) nt-pro BNP 278 pg/mL <125 Above high normal Nt-pro BNP [place] ([facility]) ID Date Data Source [id number] 01/30/2020 10:37:00 PM EST [place] ([facility]) Name Value Range Interpretation Code Description Data Elizabeth rce(s) Supporting Document(s) CPK creatine phosphokinase 75 U/L 26-192 CPK Creat ine Phosphokinase [place] ([facility]) ID Date Data Source [id number] 01/30/2020 10:37:00 PM EST [place] ([facility]) Name Value Range Interpretation Code Description Data Elizabeth rce(s) Supporting Document(s) blood urea nitrogen 13 mg/dL 7-18 Blood Urea Nitro gen [place] ([facility]) glucose, fasting 98 mg/dL 70-100 Glucose, Fasting [place] ([facility]) sodium level 144 mEq/L 136-145 Sodium Level [place] (No [facility]) glomerular filtration rate >51 Below low normal Kim merular Filtration Rate [place] ([facility]) creatinine for GFR 1.22 mg/dL 0.55-1.30 Creatinine for GF R [place] ([facility]) chloride level 108 mEq/L 98-107 Above high normal Chloride Level [place] ([facility]) potassium serum 3.8 mEq/L 3.5-5.1 Potassium Serum [place] ([facility]) carbon dioxide level 30 mEq/L 21-32 Carbon Dioxide Level [place] ([facility]) anion gap 6 mEq/L 8-16 Below low normal Anion Gap [place] ( [facility]) calcium level 8.6 mg/dL 8.5-10.1 Calcium Level [place] ( [facility]) ID Date Data Source [id number] 01/30/2020 10:37:00 PM EST [place] ([facility]) Name Value Range Interpretation Code Description Data Elizabeth rce(s) Supporting Document(s) white blood count 5.3 10 4.0-10.0 White Blood Count [place] ([facility]) red blood count 4.24 10 4.00-5.40 Red Blood Count [facility] ([facility]) hemoglobin 12.6 g/dL 12.0-15.5 Hemoglobin [place] ([facility]) mean corpuscular hemoglobin 29.7 pg 27.0-33.0 Mean Cor puscular Hemoglobin [place] ([facility]) hematocrit 39.5 % 36.0-47.0 Hematocrit [place] ([facility]) mean corpuscular volume 93.2 fL 80.0-96.0 Mean Corpusc ular Volume [place] ([facility]) platelet count, automated 127 10 150-450 Below low jessica l Platelet Count, Automated [place] ([facility]) mean corpuscular HGB conc 31.9 g/dL 32.0-36.5 Below low jessica l Mean Corpuscular HGB Conc [place] ([facility]) red cell distribution width 13.2 % 11.5-14.5 Red Cell Distribution Width [place] ([facility]) mono % 7.1 % 0.0-5.0 Above high normal [place] % [place] ([facility]) lymph % 39.0 % 24.0-44.0 Lymph % [place] ([facility]) neutrophils % 51.8 % 36.0-66.0 Neutrophils % [place] ( [facility]) baso % 0.4 % 0.0-1.0 Baso % [place] ([facility]) immature granulocyte % 0.4 % 0-3.0 Immature Gran ulocyte % [place] ([facility]) eos % 1.3 % 0.0-3.0 Eos % [place] ([facility]) nucleated red blood cell % 0.0 % 0-0 Nucleated Red Blood Cell % [place] ([facility]) mono # 0.4 10 0.0-0.8 [place] # [place] ([facility]) neutrophils # 2.8 10 1.5-8.5 Neutrophils # [place] ( [facility]) lymph # 2.1 10 1.5-5.0 Lymph # [place] ([facility]) eos # 0.1 10 0.0-0.5 Eos # [place] ([facility]) baso # 0.0 10 0.0-0.2 Baso # [place] ([facility]) ID Date Data Source [id number] 01/30/2020 10:37:00 PM EST [place] ([facility]) Name Value Range Interpretation Code Description Data Elizabeth rce(s) Supporting Document(s) nt-pro BNP 278 pg/mL <125 Above high normal Nt-pro BNP [place] ([facility]) ID Date Data Source [id number] 01/30/2020 10:37:00 PM EST [place] ([facility]) Name Value Range Interpretation Code Description Data Elizabeth rce(s) Supporting Document(s) CPK creatine phosphokinase 75 U/L 26-192 CPK Creat ine Phosphokinase [place] ([facility]) ID Date Data Source [id number] 01/30/2020 10:37:00 PM EST [place] ([facility]) Name Value Range Interpretation Code Description Data Elizabeth rce(s) Supporting Document(s) blood urea nitrogen 13 mg/dL 7-18 Blood Urea Nitro gen [place] ([facility]) creatinine for GFR 1.22 mg/dL 0.55-1.30 Creatinine for GF R [place] ([facility]) glucose, fasting 98 mg/dL 70-100 Glucose, Fasting AT [facility]) glomerular filtration rate >51 Below low normal Kim merular Filtration Rate [place] ([facility]) sodium level 144 mEq/L 136-145 Sodium Level [place] (No [facility]) chloride level 108 mEq/L 98-107 Above high normal Chloride Level [place] ([facility]) potassium serum 3.8 mEq/L 3.5-5.1 Potassium Serum [place] ([facility]) carbon dioxide level 30 mEq/L 21-32 Carbon Dioxide Level [place] ([facility]) anion gap 6 mEq/L 8-16 Below low normal Anion Gap [place] ( [facility]) calcium level 8.6 mg/dL 8.5-10.1 Calcium Level [place] ( [facility]) ID Date Data Source [id number] 01/30/2020 10:37:00 PM EST [place] ([facility]) Name Value Range Interpretation Code Description Data Elizabeth rce(s) Supporting Document(s) white blood count 5.3 10 4.0-10.0 White Blood Count [place] ([facility]) red blood count 4.24 10 4.00-5.40 Red Blood Count [facility] ([facility]) mean corpuscular volume 93.2 fL 80.0-96.0 Mean Corpusc ular Volume [place] ([facility]) hematocrit 39.5 % 36.0-47.0 Hematocrit [place] ([facility]) hemoglobin 12.6 g/dL 12.0-15.5 Hemoglobin [place] ([facility]) mean corpuscular hemoglobin 29.7 pg 27.0-33.0 Mean Cor puscular Hemoglobin [place] ([facility]) mean corpuscular HGB conc 31.9 g/dL 32.0-36.5 Below low jessica l Mean Corpuscular HGB Conc [place] ([facility]) red cell distribution width 13.2 % 11.5-14.5 Red Cell Distribution Width [place] ([facility]) lymph % 39.0 % 24.0-44.0 Lymph % [place] ([facility]) neutrophils % 51.8 % 36.0-66.0 Neutrophils % [place] ( [facility]) platelet count, automated 127 10 150-450 Below low jessica l Platelet Count, Automated [place] ([facility]) mono % 7.1 % 0.0-5.0 Above high normal [place] % [place] ([facility]) eos % 1.3 % 0.0-3.0 Eos % [place] ([facility]) baso % 0.4 % 0.0-1.0 Baso % [place] [facility] [facility]) immature granulocyte % 0.4 % 0-3.0 Immature Gran ulocyte % [place] ([facility]) lymph # 2.1 10 1.5-5.0 Lymph # [place] ([facility]) neutrophils # 2.8 10 1.5-8.5 Neutrophils # [place] ( [facility]) mono # 0.4 10 0.0-0.8 [place] # [place] ([facility]) nucleated red blood cell % 0.0 % 0-0 Nucleated Red Blood Cell % [place] ([facility]) eos # 0.1 10 0.0-0.5 Eos # [place] ([facility]) baso # 0.0 10 0.0-0.2 Baso # [place] ([facility]) ID Date Data Source [id number] 01/30/2020 10:37:00 PM EST [place] ([facility]) Name Value Range Interpretation Code Description Data Elizabeth rce(s) Supporting Document(s) nt-pro BNP 278 pg/mL <125 Above high normal Nt-pro BNP [place] ([facility]) ID Date Data Source [id number] 01/30/2020 10:37:00 PM EST [place] ([facility]) Name Value Range Interpretation Code Description Data Elizabeth rce(s) Supporting Document(s) CPK creatine phosphokinase 75 U/L 26-192 CPK Creat ine Phosphokinase [place] ([facility]) ID Date Data Source [id number] 01/30/2020 10:37:00 PM EST [place] ([facility]) Name Value Range Interpretation Code Description Data Elizabeth rce(s) Supporting Document(s) creatinine for GFR 1.22 mg/dL 0.55-1.30 Creatinine for GF R [place] ([facility]) glucose, fasting 98 mg/dL 70-100 Glucose, Fasting AT [facility]) blood urea nitrogen 13 mg/dL 7-18 Blood Urea Nitro gen [place] ([facility]) sodium level 144 mEq/L 136-145 Sodium Level [place] (No [facility]) potassium serum 3.8 mEq/L 3.5-5.1 Potassium Serum [place] ([facility]) chloride level 108 mEq/L 98-107 Above high normal Chloride Level [place] ([facility]) glomerular filtration rate >51 Below low normal Kim merular Filtration Rate [place] ([facility]) calcium level 8.6 mg/dL 8.5-10.1 Calcium Level [place] ( [facility]) carbon dioxide level 30 mEq/L 21-32 Carbon Dioxide Level [place] ([facility]) anion gap 6 mEq/L 8-16 Below low normal Anion Gap [place] ( [facility]) ID Date Data Source [id number] 01/30/2020 10:37:00 PM EST [place] ([facility]) Name Value Range Interpretation Code Description Data Elizabeth rce(s) Supporting Document(s) white blood count 5.3 10 4.0-10.0 White Blood Count [place] ([facility]) hematocrit 39.5 % 36.0-47.0 Hematocrit [place] ([facility]) hemoglobin 12.6 g/dL 12.0-15.5 Hemoglobin [place] ([facility]) red blood count 4.24 10 4.00-5.40 Red Blood Count [place] ([facility]) mean corpuscular hemoglobin 29.7 pg 27.0-33.0 Mean Cor puscular Hemoglobin [place] ([facility]) mean corpuscular volume 93.2 fL 80.0-96.0 Mean Corpusc ular Volume [place] ([facility]) mean corpuscular HGB conc 31.9 g/dL 32.0-36.5 Below low jessica l Mean Corpuscular HGB Conc [place] ([facility]) neutrophils % 51.8 % 36.0-66.0 Neutrophils % [place] ( [facility]) lymph % 39.0 % 24.0-44.0 Lymph % [place] ([facility]) platelet count, automated 127 10 150-450 Below low jessica l Platelet Count, Automated [place] ([facility]) red cell distribution width 13.2 % 11.5-14.5 Red Cell Distribution Width [place] ([facility]) eos % 1.3 % 0.0-3.0 Eos % [place] ([facility]) mono % 7.1 % 0.0-5.0 Above high normal [place] % [place] ([facility]) immature granulocyte % 0.4 % 0-3.0 Immature Gran ulocyte % [place] ([facility]) nucleated red blood cell % 0.0 % 0-0 Nucleated Red Blood Cell % [place] ([facility]) baso % 0.4 % 0.0-1.0 Baso % [place] ([facility]) neutrophils # 2.8 10 1.5-8.5 Neutrophils # [place] ( [facility]) mono # 0.4 10 0.0-0.8 [place] # [place] ([facility]) lymph # 2.1 10 1.5-5.0 Lymph # [place] ([facility]) eos # 0.1 10 0.0-0.5 Eos # [place] ([facility]) baso # 0.0 10 0.0-0.2 Baso # [place] ([facility]) ID Date Data Source [id number] 01/30/2020 10:37:00 PM EST [place] ([facility]) Name Value Range Interpretation Code Description Data Elizabeth rce(s) Supporting Document(s) nt-pro BNP 278 pg/mL <125 Above high normal Nt-pro BNP [place] ([facility]) ID Date Data Source [id number] 01/30/2020 10:37:00 PM EST [place] ([facility]) Name Value Range Interpretation Code Description Data Elizabeth rce(s) Supporting Document(s) CPK creatine phosphokinase 75 U/L 26-192 CPK Creat ine Phosphokinase [place] ([facility]) ID Date Data Source [id number] 01/30/2020 10:37:00 PM EST [place] ([facility]) Name Value Range Interpretation Code Description Data Elizabeth rce(s) Supporting Document(s) glucose, fasting 98 mg/dL 70-100 Glucose, Fasting AT [place] ([facility]) blood urea nitrogen 13 mg/dL 7-18 Blood Urea Nitro gen [place] ([facility]) glomerular filtration rate >51 Below low normal Kim merular Filtration Rate [place] ([facility]) potassium serum 3.8 mEq/L 3.5-5.1 Potassium Serum [place] ([facility]) creatinine for GFR 1.22 mg/dL 0.55-1.30 Creatinine for GF R [place] ([facility]) sodium level 144 mEq/L 136-145 Sodium Level [place] (No [facility]) anion gap 6 mEq/L 8-16 Below low normal Anion Gap [place] ( [facility]) carbon dioxide level 30 mEq/L 21-32 Carbon Dioxide Level [place] ([facility]) chloride level 108 mEq/L 98-107 Above high normal Chloride Level [place] ([facility]) calcium level 8.6 mg/dL 8.5-10.1 Calcium Level [place] ( [facility]) ID Date Data Source [id number] 01/30/2020 10:37:00 PM EST [place] ([facility]) Name Value Range Interpretation Code Description Data Elizabeth rce(s) Supporting Document(s) hemoglobin 12.6 g/dL 12.0-15.5 Hemoglobin [place] ([facility]) white blood count 5.3 10 4.0-10.0 White Blood Count [place] ([facility]) red blood count 4.24 10 4.00-5.40 Red Blood Count [place] ([facility]) mean corpuscular hemoglobin 29.7 pg 27.0-33.0 Mean Cor puscular Hemoglobin [place] ([facility]) hematocrit 39.5 % 36.0-47.0 Hematocrit [place] ([facility]) mean corpuscular volume 93.2 fL 80.0-96.0 Mean Corpusc ular Volume [place] ([facility]) red cell distribution width 13.2 % 11.5-14.5 Red Cell Distribution Width [place] ([facility]) neutrophils % 51.8 % 36.0-66.0 Neutrophils % [place] ( [facility]) platelet count, automated 127 10 150-450 Below low jessica l Platelet Count, Automated [place] ([facility]) mean corpuscular HGB conc 31.9 g/dL 32.0-36.5 Below low jessica l Mean Corpuscular HGB Conc [place] ([facility]) mono % 7.1 % 0.0-5.0 Above high normal [place] % [place] ([facility]) baso % 0.4 % 0.0-1.0 Baso % [place] ([facility]) lymph % 39.0 % 24.0-44.0 Lymph % [place] ([facility]) eos % 1.3 % 0.0-3.0 Eos % [place] ([facility]) nucleated red blood cell % 0.0 % 0-0 Nucleated Red Blood Cell % [place] ([facility]) lymph # 2.1 10 1.5-5.0 Lymph # [place] ([facility]) immature granulocyte % 0.4 % 0-3.0 Immature Gran ulocyte % [place] ([facility]) neutrophils # 2.8 10 1.5-8.5 Neutrophils # [place] ( [facility]) eos # 0.1 10 0.0-0.5 Eos # [place] ([facility]) mono # 0.4 10 0.0-0.8 [place] # [place] ([facility]) baso # 0.0 10 0.0-0.2 Baso # [place] ([facility]) ID Date Data Source [id number] 01/30/2020 10:37:00 PM EST [place] ([facility]) Name Value Range Interpretation Code Description Data Elizabeth rce(s) Supporting Document(s) nt-pro BNP 278 pg/mL <125 Above high normal Nt-pro BNP [place] ([facility]) ID Date Data Source [id number] 01/30/2020 10:37:00 PM EST [place] ([facility]) Name Value Range Interpretation Code Description Data Elizabeth rce(s) Supporting Document(s) CPK creatine phosphokinase 75 U/L 26-192 CPK Creat ine Phosphokinase [place] ([facility]) ID Date Data Source [id number] 01/30/2020 10:37:00 PM EST [place] ([facility]) Name Value Range Interpretation Code Description Data Elizabeth rce(s) Supporting Document(s) glucose, fasting 98 mg/dL 70-100 Glucose, Fasting AT [place] ([facility]) sodium level 144 mEq/L 136-145 Sodium Level [place] (No [facility]) potassium serum 3.8 mEq/L 3.5-5.1 Potassium Serum [place] ([facility]) glomerular filtration rate >51 Below low normal Kim merular Filtration Rate [place] ([facility]) blood urea nitrogen 13 mg/dL 7-18 Blood Urea Nitro gen [place] ([facility]) creatinine for GFR 1.22 mg/dL 0.55-1.30 Creatinine for GF R [place] ([facility]) chloride level 108 mEq/L 98-107 Above high normal Chloride Level [place] ([facility]) anion gap 6 mEq/L 8-16 Below low normal Anion Gap [place] ( [facility]) carbon dioxide level 30 mEq/L 21-32 Carbon Dioxide Level [place] ([facility]) calcium level 8.6 mg/dL 8.5-10.1 Calcium Level [place] ( [facility]) ID Date Data Source [id number] 01/30/2020 10:37:00 PM EST [place] ([facility]) Name Value Range Interpretation Code Description Data Elizabeth rce(s) Supporting Document(s) white blood count 5.3 10 4.0-10.0 White Blood Count [place] ([facility]) hematocrit 39.5 % 36.0-47.0 Hematocrit [place] ([facility]) mean corpuscular volume 93.2 fL 80.0-96.0 Mean Corpusc ular Volume [place] ([facility]) red blood count 4.24 10 4.00-5.40 Red Blood Count [place] ([facility]) hemoglobin 12.6 g/dL 12.0-15.5 Hemoglobin [place] ([facility]) mean corpuscular hemoglobin 29.7 pg 27.0-33.0 Mean Cor puscular Hemoglobin [place] ([facility]) mean corpuscular HGB conc 31.9 g/dL 32.0-36.5 Below low jessica l Mean Corpuscular HGB Conc [place] ([facility]) red cell distribution width 13.2 % 11.5-14.5 Red Cell Distribution Width [place] ([facility]) lymph % 39.0 % 24.0-44.0 Lymph % [place] ([facility]) neutrophils % 51.8 % 36.0-66.0 Neutrophils % [place] ( [facility]) platelet count, automated 127 10 150-450 Below low jessica l Platelet Count, Automated [place] ([facility]) mono % 7.1 % 0.0-5.0 Above high normal [place] % [place] ([facility]) baso % 0.4 % 0.0-1.0 Baso % [place] ([facility]) nucleated red blood cell % 0.0 % 0-0 Nucleated Red Blood Cell % [place] ([facility]) eos % 1.3 % 0.0-3.0 Eos % [place] ([facility]) immature granulocyte % 0.4 % 0-3.0 Immature Gran ulocyte % [place] ([facility]) eos # 0.1 10 0.0-0.5 Eos # [place] ([facility]) neutrophils # 2.8 10 1.5-8.5 Neutrophils # [place] ( [facility]) mono # 0.4 10 0.0-0.8 [place] # [place] ([facility]) lymph # 2.1 10 1.5-5.0 Lymph # [place] ([facility]) baso # 0.0 10 0.0-0.2 Baso # [place] ([facility]) ID Date Data Source [id number] 01/30/2020 10:37:00 PM EST [place] ([facility]) Name Value Range Interpretation Code Description Data Elizabeth rce(s) Supporting Document(s) nt-pro BNP 278 pg/mL <125 Above high normal Nt-pro BNP [place] ([facility]) ID Date Data Source [id number] 01/30/2020 10:37:00 PM EST [place] ([facility]) Name Value Range Interpretation Code Description Data Elizabeth rce(s) Supporting Document(s) CPK creatine phosphokinase 75 U/L 26-192 CPK Creat ine Phosphokinase [place] ([facility]) ID Date Data Source [id number] 01/30/2020 10:37:00 PM EST [place] ([facility]) Name Value Range Interpretation Code Description Data Elizabeth rce(s) Supporting Document(s) glucose, fasting 98 mg/dL 70-100 Glucose, Fasting AT [place] ([facility]) blood urea nitrogen 13 mg/dL 7-18 Blood Urea Nitro gen [place] ([facility]) creatinine for GFR 1.22 mg/dL 0.55-1.30 Creatinine for GF R [place] ([facility]) sodium level 144 mEq/L 136-145 Sodium Level [place] (No [facility]) glomerular filtration rate >51 Below low normal Kim merular Filtration Rate [place] ([facility]) potassium serum 3.8 mEq/L 3.5-5.1 Potassium Serum [place] ([facility]) chloride level 108 mEq/L 98-107 Above high normal Chloride Level [place] ([facility]) anion gap 6 mEq/L 8-16 Below low normal Anion Gap [place] ( [facility]) carbon dioxide level 30 mEq/L 21-32 Carbon Dioxide Level [place] ([facility]) calcium level 8.6 mg/dL 8.5-10.1 Calcium Level [place] ( [facility]) ID Date Data Source [id number] 01/30/2020 10:37:00 PM EST [place] ([facility]) Name Value Range Interpretation Code Description Data Elizabeth rce(s) Supporting Document(s) white blood count 5.3 10 4.0-10.0 White Blood Count [place] ([facility]) hemoglobin 12.6 g/dL 12.0-15.5 Hemoglobin [place] ([facility]) red blood count 4.24 10 4.00-5.40 Red Blood Count [place] ([facility]) hematocrit 39.5 % 36.0-47.0 Hematocrit [place] ([facility]) mean corpuscular hemoglobin 29.7 pg 27.0-33.0 Mean Cor puscular Hemoglobin [place] ([facility]) mean corpuscular volume 93.2 fL 80.0-96.0 Mean Corpusc ular Volume [place] ([facility]) red cell distribution width 13.2 % 11.5-14.5 Red Cell Distribution Width [place] ([facility]) mean corpuscular HGB conc 31.9 g/dL 32.0-36.5 Below low jessica l Mean Corpuscular HGB Conc [place] ([facility]) mono % 7.1 % 0.0-5.0 Above high normal [place] % [place] ([facility]) lymph % 39.0 % 24.0-44.0 Lymph % [place] ([facility]) neutrophils % 51.8 % 36.0-66.0 Neutrophils % [place] ( [facility]) platelet count, automated 127 10 150-450 Below low jessica l Platelet Count, Automated [place] ([facility]) eos % 1.3 % 0.0-3.0 Eos % [place] ([facility]) baso % 0.4 % 0.0-1.0 Baso % [place] ([facility]) immature granulocyte % 0.4 % 0-3.0 Immature Gran ulocyte % [place] ([facility]) neutrophils # 2.8 10 1.5-8.5 Neutrophils # [place] ( [facility]) nucleated red blood cell % 0.0 % 0-0 Nucleated Red Blood Cell % [place] ([facility]) mono # 0.4 10 0.0-0.8 [place] # [place] ([facility]) lymph # 2.1 10 1.5-5.0 Lymph # [place] ([facility]) baso # 0.0 10 0.0-0.2 Baso # [place] ([facility]) eos # 0.1 10 0.0-0.5 Eos # [place] ([facility]) ID Date Data Source [id number] 01/30/2020 10:37:00 PM EST [place] ([facility]) Name Value Range Interpretation Code Description Data Elizabeth rce(s) Supporting Document(s) nt-pro BNP 278 pg/mL <125 Above high normal Nt-pro BNP [place] ([facility]) ID Date Data Source [id number] 01/30/2020 10:37:00 PM EST [place] ([facility]) Name Value Range Interpretation Code Description Data Elizabeth rce(s) Supporting Document(s) CPK creatine phosphokinase 75 U/L 26-192 CPK Creat ine Phosphokinase [place] ([facility]) ID Date Data Source [id number] 01/30/2020 10:37:00 PM EST [place] ([facility]) Name Value Range Interpretation Code Description Data Elizabeth rce(s) Supporting Document(s) glucose, fasting 98 mg/dL 70-100 Glucose, Fasting AT [facility]) blood urea nitrogen 13 mg/dL 7-18 Blood Urea Nitro gen [place] ([facility]) glomerular filtration rate >51 Below low normal Kim merular Filtration Rate [place] ([facility]) sodium level 144 mEq/L 136-145 Sodium Level [place] (No [facility]) creatinine for GFR 1.22 mg/dL 0.55-1.30 Creatinine for GF R [place] ([facility]) chloride level 108 mEq/L 98-107 Above high normal Chloride Level [place] ([facility]) carbon dioxide level 30 mEq/L 21-32 Carbon Dioxide Level [place] ([facility]) potassium serum 3.8 mEq/L 3.5-5.1 Potassium Serum [place] ([facility]) anion gap 6 mEq/L 8-16 Below low normal Anion Gap [place] ( [facility]) calcium level 8.6 mg/dL 8.5-10.1 Calcium Level [facility]) ID Date Data Source [id number] 01/30/2020 10:37:00 PM EST [place] ([facility]) Name Value Range Interpretation Code Description Data Elizabeth rce(s) Supporting Document(s) white blood count 5.3 10 4.0-10.0 White Blood Count [place] ([facility]) hematocrit 39.5 % 36.0-47.0 Hematocrit [place] ([facility]) hemoglobin 12.6 g/dL 12.0-15.5 Hemoglobin [place] ([facility]) mean corpuscular volume 93.2 fL 80.0-96.0 Mean Corpusc ular Volume [place] ([facility]) red blood count 4.24 10 4.00-5.40 Red Blood Count [place] ([facility]) mean corpuscular hemoglobin 29.7 pg 27.0-33.0 Mean Cor puscular Hemoglobin [place] ([facility]) red cell distribution width 13.2 % 11.5-14.5 Red Cell Distribution Width [place] ([facility]) mean corpuscular HGB conc 31.9 g/dL 32.0-36.5 Below low jessiac l Mean Corpuscular HGB Conc [place] ([facility]) platelet count, automated 127 10 150-450 Below low jessica l Platelet Count, Automated [place] ([facility]) neutrophils % 51.8 % 36.0-66.0 Neutrophils % [place] ( [facility]) lymph % 39.0 % 24.0-44.0 Lymph % [place] ([facility]) baso % 0.4 % 0.0-1.0 Baso % [place] ([facility]) mono % 7.1 % 0.0-5.0 Above high normal [place] % [place] ([facility]) eos % 1.3 % 0.0-3.0 Eos % [place] ([facility]) neutrophils # 2.8 10 1.5-8.5 Neutrophils # [place] ( [facility]) immature granulocyte % 0.4 % 0-3.0 Immature Gran ulocyte % [place] ([facility]) nucleated red blood cell % 0.0 % 0-0 Nucleated Red Blood Cell % [place] ([facility]) lymph # 2.1 10 1.5-5.0 Lymph # [place] ([facility]) eos # 0.1 10 0.0-0.5 Eos # [place] ([facility]) mono # 0.4 10 0.0-0.8 [place] # [place] ([facility]) baso # 0.0 10 0.0-0.2 Baso # [place] ([facility]) ID Date Data Source [id number] 01/30/2020 10:37:00 PM EST [place] ([facility]) Name Value Range Interpretation Code Description Data Elizabteh rce(s) Supporting Document(s) nt-pro BNP 278 pg/mL <125 Above high normal Nt-pro BNP [place] ([facility]) ID Date Data Source [id number] 01/30/2020 10:37:00 PM EST [place] ([facility]) Name Value Range Interpretation Code Description Data Elizabeth rce(s) Supporting Document(s) CPK creatine phosphokinase 75 U/L 26-192 CPK Creat ine Phosphokinase [place] ([facility]) ID Date Data Source [id number] 01/30/2020 10:37:00 PM EST [place] ([facility]) Name Value Range Interpretation Code Description Data Elizabeth rce(s) Supporting Document(s) glucose, fasting 98 mg/dL 70-100 Glucose, Fasting AT [facility] ([facility]) blood urea nitrogen 13 mg/dL 7-18 Blood Urea Nitro gen [place] ([facility]) glomerular filtration rate >51 Below low normal Kim merular Filtration Rate [place] ([facility]) creatinine for GFR 1.22 mg/dL 0.55-1.30 Creatinine for GF R [place] ([facility]) sodium level 144 mEq/L 136-145 Sodium Level [place] ([facility]) potassium serum 3.8 mEq/L 3.5-5.1 Potassium Serum [place] ([facility]) chloride level 108 mEq/L 98-107 Above high normal Chloride Level [place] ([facility]) calcium level 8.6 mg/dL 8.5-10.1 Calcium Level [place] ( [facility]) anion gap 6 mEq/L 8-16 Below low normal Anion Gap [place] ( [facility]) carbon dioxide level 30 mEq/L 21-32 Carbon Dioxide Level [place] ([facility]) ID Date Data Source [id number] 01/30/2020 10:37:00 PM EST [place] ([facility]) Name Value Range Interpretation Code Description Data Elizabeth rce(s) Supporting Document(s) white blood count 5.3 10 4.0-10.0 White Blood Count [place] ([facility]) red blood count 4.24 10 4.00-5.40 Red Blood Count [facility] ([facility]) hemoglobin 12.6 g/dL 12.0-15.5 Hemoglobin [place] ([facility]) mean corpuscular volume 93.2 fL 80.0-96.0 Mean Corpusc ular Volume [place] ([facility]) mean corpuscular hemoglobin 29.7 pg 27.0-33.0 Mean Cor puscular Hemoglobin [place] ([facility]) hematocrit 39.5 % 36.0-47.0 Hematocrit [place] ([facility]) red cell distribution width 13.2 % 11.5-14.5 Red Cell Distribution Width [place] ([facility]) mean corpuscular HGB conc 31.9 g/dL 32.0-36.5 Below low jessica l Mean Corpuscular HGB Conc [place] ([facility]) lymph % 39.0 % 24.0-44.0 Lymph % [place] ([facility]) neutrophils % 51.8 % 36.0-66.0 Neutrophils % [place] ( [facility]) platelet count, automated 127 10 150-450 Below low jessica l [facility] mono % 7.1 % 0.0-5.0 Above high normal [place] % [place] ([facility]) eos % 1.3 % 0.0-3.0 Eos % [place] ([facility]) immature granulocyte % 0.4 % 0-3.0 Immature Gran ulocyte % [place] ([facility]) baso % 0.4 % 0.0-1.0 Baso % [place] ([facility]) nucleated red blood cell % 0.0 % 0-0 Nucleated Red Blood Cell % [place] ([facility]) lymph # 2.1 10 1.5-5.0 Lymph # [place] ([facility]) neutrophils # 2.8 10 1.5-8.5 Neutrophils # [place] ( [facility]) mono # 0.4 10 0.0-0.8 [place] # [place] ([facility]) eos # 0.1 10 0.0-0.5 Eos # [place] ([facility]) baso # 0.0 10 0.0-0.2 Baso # [place] ([facility]) ID Date Data Source [id number] 01/30/2020 10:37:00 PM EST [place] ([facility]) Name Value Range Interpretation Code Description Data Elizabeth rce(s) Supporting Document(s) nt-pro BNP 278 pg/mL <125 Above high normal Nt-pro BNP [place] ([facility]) ID Date Data Source [id number] 01/30/2020 10:37:00 PM EST [place] ([facility]) Name Value Range Interpretation Code Description Data Elizabeth rce(s) Supporting Document(s) CPK creatine phosphokinase 75 U/L 26-192 CPK Creat ine Phosphokinase [place] ([facility]) ID Date Data Source [id number] 01/30/2020 10:37:00 PM EST [place] ([facility]) Name Value Range Interpretation Code Description Data Elizabeth rce(s) Supporting Document(s) glucose, fasting 98 mg/dL 70-100 Glucose, Fasting AT [place] ([facility]) creatinine for GFR 1.22 mg/dL 0.55-1.30 Creatinine for GF R [place] ([facility]) blood urea nitrogen 13 mg/dL 7-18 Blood Urea Nitro gen [place] ([facility]) potassium serum 3.8 mEq/L 3.5-5.1 Potassium Serum [place] ([facility]) chloride level 108 mEq/L 98-107 Above high normal Chloride Level [place] ([facility]) glomerular filtration rate >51 Below low normal Kim merular Filtration Rate [place] ([facility]) sodium level 144 mEq/L 136-145 Sodium Level [place] (No [facility]) anion gap 6 mEq/L 8-16 Below low normal Anion Gap [place] ( [facility]) carbon dioxide level 30 mEq/L 21-32 Carbon Dioxide Level [place] ([facility]) calcium level 8.6 mg/dL 8.5-10.1 Calcium Level [place] ( [facility]) ID Date Data Source [id number] 01/30/2020 10:37:00 PM EST [place] ([facility]) Name Value Range Interpretation Code Description Data Elizabeth rce(s) Supporting Document(s) white blood count 5.3 10 4.0-10.0 White Blood Count [place] ([facility]) red blood count 4.24 10 4.00-5.40 Red Blood Count [place] ([facility]) hemoglobin 12.6 g/dL 12.0-15.5 Hemoglobin [place] ([facility]) hematocrit 39.5 % 36.0-47.0 Hematocrit [place] ([facility]) mean corpuscular volume 93.2 fL 80.0-96.0 Mean Corpusc ular Volume [place] ([facility]) platelet count, automated 127 10 150-450 Below low jessica l Platelet Count, Automated [place] ([facility]) red cell distribution width 13.2 % 11.5-14.5 Red Cell Distribution Width [place] ([facility]) mean corpuscular HGB conc 31.9 g/dL 32.0-36.5 Below low jessica l Mean Corpuscular HGB Conc [place] ([facility]) mean corpuscular hemoglobin 29.7 pg 27.0-33.0 Mean Cor puscular Hemoglobin [place] ([facility]) lymph % 39.0 % 24.0-44.0 Lymph % [place] ([facility]) neutrophils % 51.8 % 36.0-66.0 Neutrophils % [place] ( [facility]) mono % 7.1 % 0.0-5.0 Above high normal [place] % [place] ([facility]) eos % 1.3 % 0.0-3.0 Eos % [place] ([facility]) immature granulocyte % 0.4 % 0-3.0 Immature Gran ulocyte % [place] ([facility]) baso % 0.4 % 0.0-1.0 Baso % [place] ([facility]) nucleated red blood cell % 0.0 % 0-0 Nucleated Red Blood Cell % [place] ([facility]) neutrophils # 2.8 10 1.5-8.5 Neutrophils # [place] ( [facility]) lymph # 2.1 10 1.5-5.0 Lymph # [place] ([facility]) eos # 0.1 10 0.0-0.5 Eos # [place] ([facility]) baso # 0.0 10 0.0-0.2 Baso # [place] ([facility]) mono # 0.4 10 0.0-0.8 [place] # [place] ([facility]) ID Date Data Source [id number] 01/29/2020 10:15:00 AM EST [facility] Name Value Range Interpretation Code Description Data Elizabeth rce(s) Supporting Document(s) SARS coronavirus 2 RNA [facility] This lab was ordered by [facility] and reported by [facility]. ID Date Data Source [id number] 01/18/2020 07:34:00 PM EST [place] ([facility]) Name Value Range Interpretation Code Description Data Elizabeth rce(s) Supporting Document(s) istat glucose 83 mg/dL 70-105 Istat Glucose [place] ( [facility]) istat HCT 38.0 % 38.0-51.0 Istat HCT [place] ([facility]) istat potassium 4.2 mEq/L 3.5-5.1 Istat Potassium [place] ([facility]) istat Ca++ 4.8 mg/dL 4.5-5.3 Istat Ca++ [place] ([facility]) istat sodium 140 mEq/L 136-145 Istat Sodium [place] (No [facility]) istat creatinine 1.1 mg/dL 0.6-1.3 Istat Creatinine AT [facility] ([facility]) istat CO2 30.0 mm/L 23.0-27.0 Above high normal Istat CO2 [place] ([facility]) istat chloride 104 mEq/L 98-109 Istat Chloride [place] ([facility]) istat BUN 14 mg/dL 8-26 Istat BUN [place] ([facility]) ID Date Data Source [id number] 01/18/2020 07:34:00 PM EST [place] ([facility]) Name Value Range Interpretation Code Description Data Elizabeth rce(s) Supporting Document(s) istat glucose 83 mg/dL 70-105 Istat Glucose [place] ( [facility]) istat HCT 38.0 % 38.0-51.0 Istat HCT [place] ([facility]) istat Ca++ 4.8 mg/dL 4.5-5.3 Istat Ca++ [place] ([facility]) istat potassium 4.2 mEq/L 3.5-5.1 Istat Potassium [place] ([facility]) istat chloride 104 mEq/L 98-109 Istat Chloride [place] ([facility]) istat sodium 140 mEq/L 136-145 Istat Sodium [place] ([facility]) istat creatinine 1.1 mg/dL 0.6-1.3 Istat Creatinine AT [place] ([facility]) istat BUN 14 mg/dL 8-26 Istat BUN [place] ([facility]) istat CO2 30.0 mm/L 23.0-27.0 Above high normal Istat CO2 [place] ([facility]) ID Date Data Source [id number] 01/18/2020 07:34:00 PM EST [place] ([facility]) Name Value Range Interpretation Code Description Data Elizabeth rce(s) Supporting Document(s) istat HCT 38.0 % 38.0-51.0 Istat HCT [place] ([facility]) istat sodium 140 mEq/L 136-145 Istat Sodium [place] ([facility]) istat chloride 104 mEq/L 98-109 Istat Chloride [place] ([facility]) istat glucose 83 mg/dL 70-105 Istat Glucose [place] ( [facility]) istat Ca++ 4.8 mg/dL 4.5-5.3 Istat Ca++ [place] ([facility]) istat potassium 4.2 mEq/L 3.5-5.1 Istat Potassium [place] ([facility]) istat CO2 30.0 mm/L 23.0-27.0 Above high normal Istat CO2 [place] ([facility]) istat BUN 14 mg/dL 8-26 Istat BUN [place] ([facility]) istat creatinine 1.1 mg/dL 0.6-1.3 Istat Creatinine AT [facility] ([facility]) ID Date Data Source [id number] 01/18/2020 07:34:00 PM EST [place] ([facility]) Name Value Range Interpretation Code Description Data Elizabeth rce(s) Supporting Document(s) istat sodium 140 mEq/L 136-145 Istat Sodium [place] ([facility]) istat HCT 38.0 % 38.0-51.0 Istat HCT [place] ([facility]) istat glucose 83 mg/dL 70-105 Istat Glucose [place] ( [facility]) istat chloride 104 mEq/L 98-109 Istat Chloride [place] ([facility]) istat Ca++ 4.8 mg/dL 4.5-5.3 Istat Ca++ [place] ([facility]) istat BUN 14 mg/dL 8-26 Istat BUN [place] ([facility]) istat potassium 4.2 mEq/L 3.5-5.1 Istat Potassium [place] ([facility]) istat CO2 30.0 mm/L 23.0-27.0 Above high normal Istat CO2 [place] ([facility]) istat creatinine 1.1 mg/dL 0.6-1.3 Istat Creatinine AT [facility]) ID Date Data Source [id number] 01/18/2020 07:34:00 PM EST [place] ([facility]) Name Value Range Interpretation Code Description Data Elizabeth rce(s) Supporting Document(s) istat HCT 38.0 % 38.0-51.0 Istat HCT [place] ([facility]) istat sodium 140 mEq/L 136-145 Istat Sodium [place] ([facility]) istat potassium 4.2 mEq/L 3.5-5.1 Istat Potassium [place] ([facility]) istat Ca++ 4.8 mg/dL 4.5-5.3 Istat Ca++ [place] ([facility]) istat glucose 83 mg/dL 70-105 Istat Glucose [place] ( [facility]) istat creatinine 1.1 mg/dL 0.6-1.3 Istat Creatinine AT [facility] ([facility]) istat BUN 14 mg/dL 8-26 Istat BUN [place] ([facility]) istat CO2 30.0 mm/L 23.0-27.0 Above high normal Istat CO2 [place] ([facility]) istat chloride 104 mEq/L 98-109 Istat Chloride [place] ([facility]) ID Date Data Source [id number] 01/18/2020 07:34:00 PM EST [place] ([facility]) Name Value Range Interpretation Code Description Data Elizabeth rce(s) Supporting Document(s) istat glucose 83 mg/dL 70-105 Istat Glucose [place] ( [facility]) istat HCT 38.0 % 38.0-51.0 Istat HCT [place] ([facility]) istat Ca++ 4.8 mg/dL 4.5-5.3 Istat Ca++ [place] ([facility]) istat potassium 4.2 mEq/L 3.5-5.1 Istat Potassium [place] ([facility]) istat CO2 30.0 mm/L 23.0-27.0 Above high normal Istat CO2 [place] ([facility]) istat sodium 140 mEq/L 136-145 Istat Sodium [place] (No [facility]) istat chloride 104 mEq/L 98-109 Istat Chloride [place] ([facility]) istat BUN 14 mg/dL 8-26 Istat BUN [place] ([facility]) istat creatinine 1.1 mg/dL 0.6-1.3 Istat Creatinine AT [place] ([facility]) ID Date Data Source [id number] 01/18/2020 07:34:00 PM EST [place] ([facility]) Name Value Range Interpretation Code Description Data Elizabeth rce(s) Supporting Document(s) istat sodium 140 mEq/L 136-145 Istat Sodium [place] (No [facility]) istat HCT 38.0 % 38.0-51.0 Istat HCT [place] ([facility]) istat glucose 83 mg/dL 70-105 Istat Glucose [place] ( [facility]) istat chloride 104 mEq/L 98-109 Istat Chloride [place] ([facility]) istat CO2 30.0 mm/L 23.0-27.0 Above high normal Istat CO2 [place] ([facility]) istat BUN 14 mg/dL 8-26 Istat BUN [place] ([facility]) istat Ca++ 4.8 mg/dL 4.5-5.3 Istat Ca++ [place] ([facility]) istat creatinine 1.1 mg/dL 0.6-1.3 Istat Creatinine AT [facility]) istat potassium 4.2 mEq/L 3.5-5.1 Istat Potassium [place] ([facility]) ID Date Data Source [id number] 01/18/2020 07:34:00 PM EST [place] ([facility]) Name Value Range Interpretation Code Description Data Elizabeth rce(s) Supporting Document(s) istat HCT 38.0 % 38.0-51.0 Istat HCT [place] ([facility]) istat glucose 83 mg/dL 70-105 Istat Glucose [place] ( [facility]) istat potassium 4.2 mEq/L 3.5-5.1 Istat Potassium [place] ([facility]) istat sodium 140 mEq/L 136-145 Istat Sodium [place] ([facility]) istat CO2 30.0 mm/L 23.0-27.0 Above high normal Istat CO2 [place] ([facility]) istat BUN 14 mg/dL 8-26 Istat BUN [place] ([facility]) istat chloride 104 mEq/L 98-109 Istat Chloride [place] ([facility]) istat Ca++ 4.8 mg/dL 4.5-5.3 Istat Ca++ [place] ([facility]) istat creatinine 1.1 mg/dL 0.6-1.3 Istat Creatinine AT [facility]) ID Date Data Source [id number] 01/18/2020 07:34:00 PM EST [place] ([facility]) Name Value Range Interpretation Code Description Data Elizabeth rce(s) Supporting Document(s) istat HCT 38.0 % 38.0-51.0 Istat HCT [place] ([facility]) istat Ca++ 4.8 mg/dL 4.5-5.3 Istat Ca++ [place] ([facility]) istat glucose 83 mg/dL 70-105 Istat Glucose [place] ( [facility]) istat sodium 140 mEq/L 136-145 Istat Sodium [place] ([facility]) istat potassium 4.2 mEq/L 3.5-5.1 Istat Potassium [place] ([facility]) istat BUN 14 mg/dL 8-26 Istat BUN [place] ([facility]) istat CO2 30.0 mm/L 23.0-27.0 Above high normal Istat CO2 [place] ([facility]) istat chloride 104 mEq/L 98-109 Istat Chloride [place] ([facility]) istat creatinine 1.1 mg/dL 0.6-1.3 Istat Creatinine AT [facility]) ID Date Data Source [id number] 01/18/2020 07:34:00 PM EST [place] ([facility]) Name Value Range Interpretation Code Description Data Elizabeth rce(s) Supporting Document(s) istat HCT 38.0 % 38.0-51.0 Istat HCT [place] ([facility]) istat glucose 83 mg/dL 70-105 Istat Glucose [place] ( [facility]) istat sodium 140 mEq/L 136-145 Istat Sodium [place] ([facility]) istat potassium 4.2 mEq/L 3.5-5.1 Istat Potassium [place] ([facility]) istat creatinine 1.1 mg/dL 0.6-1.3 Istat Creatinine AT [place] ([facility]) istat BUN 14 mg/dL 8-26 Istat BUN [place] ([facility]) istat Ca++ 4.8 mg/dL 4.5-5.3 Istat Ca++ [place] ([facility]) istat chloride 104 mEq/L 98-109 Istat Chloride [place] ([facility]) istat CO2 30.0 mm/L 23.0-27.0 Above high normal Istat CO2 [place] ([facility]) ID Date Data Source [id number] 12/19/2019 11:33:45 AM EDT [facility] Measurements & CalculationsHeight: 62 inches (5 ft. 2 in.) 157.48 cm Weight: 245 pounds 111.36 kg Body Mass Index (BMI): 44.97BMI Interpretation: Morbidly ObeseBody Surface Area (BSA): 2.09Weight Management Education Done (Nutrition/Physical Activity)Vital SignsTemperature: 98.1F tympanic Pulse Rate: 87 beats/minuteRespiratory Rate: 17 respirations/minuteBlood Pressure: 122/ right arm sitting automaticO2 Saturation: 97% sittingVital Signs performed by: Mireille Quiñones MA, December 19, 2019 11:39 AMInitial Intake Information From: patientRoom #: 11Infectious Disease / Travel ScreeningRecent travel for you or any close contacts? NoHave you had any close contact with anyone diagnosed with or under investigation for COVID-19 (coronavirus)? NoFever? NoRespiratory symptoms: cough, cold, congestion, shortness of breath, difficulty breathing? NoLoss of smell? NoLoss of taste? NoSmoking, Tobacco, Vaping or Smoke Exposure StatusSmoke Status: former smokerTobacco Use: NoDo you vape? NoPassive Smoke Exposure: NoMenstrual HistoryAny possibility of ? NoComments: Pre-Menopause at 24 Healthcare HistorySince your last office visit...Have you been to an emergency room (ER) or urgent care clinic? Yes - [facility] ( Fainted, found nodule on L lung)Emergency room (ER) or urgent care date reported today: 12/17/2019Have you seen another healthcare provider? YesHave you seen a dentist? NoIntake performed by: Mireille Quiñones MA, December 19, 2019 11:38 AMRate Your HealthIn general, would you say your health is? PoorPain AssessmentAre you currently having any pain which... You would like your provider to address? Yes Affects your activity level? YesDepression Screening - PHQ-2Over the last two weeks, have you... Had little interest or pleasure in doing things? Not at all Been feeling down, depressed, or hopeless? Not at all PHQ-2 Score: 0Anxiety Screening - PINEDA-2Over the last two weeks, have you been... Feeling nervous, anxious, or on edge? Not at all Unable to stop or control worrying? Not at all [place]-2 Score: 0Food InsecurityWithin the past year...Did you worry whether your food would run out before you got money to buy more? Never trueWas there a time when the food you bought didn't last and you didn't have money to get more? Never truePatient Learning & Communication Needs Preferred learning style: by experiencePossible barriers: nonePatient's Language used in visit: YesLanguage: englishAssessment of health literacy: AdequateScreening, Brief Intervention, & Referral to Treatment (SBIRT)Pre-Screening Questions How many times have you have 4 or more drinks in a day? 0How many times have you used an illegal drug or used a prescription medication for a non-medical reason? 0Performed by: Mireille Quiñones MA, December 19, 2019 11:41 AMPatient History Medical History:COPDfibromyligabells palsyafibSurgical History:Hysterectomy (Complete)Cholecystectomy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left shoulderFamily History:Cancer - Ovarian & Breast (Mother)Congestive heart failure (Father)COPD (Father)Fam Hx of cancerSocial/Personal History: Chief Complaintfollow-up visit/ER (Lung Nodule)History of Present Illness (HPI)54 yo female presents for ED follow up. She was seen for coughing episode, but there was a nodule found on her lung CT scan that needs follow up. She states she knew about this years ago, but never follow up on it. She also reports that she neds refills on all of her meds and gets the blister pack from [facility]. She notes ongoing worsening G ERD. Has had trouble with reflux, vomiting, and heartburn. Sometimes feels it takes awhile for food to "go down". Taking medications as prescribed. No abd pain, hematemesia, diarrhea, constipation, odynophagia, dysphagia. Transitions of Care InboundAdult Preventive CareProvider Calculated and Reviewed all Clinical Protocols for patient today. Labs/Meds/Other Counseling-Nutrition and Physical Activity:BMI Interpretation: Morbidly Obese (12/19/2019) Counseling: Done (12/19/2019) Physical Activity: Done (12/19/2019)Review of Systems General: Denies loss of appetite, chills, dizziness, fatigue, fever, continued fever, headache, feeling ill, sweats, night sweats, sleep disturbances, weight loss. Cardiovascular: Denies chest pain, palpitations, feeling faint, trouble breathing w/exertion, SOB upon lying down, SOB at night, peripheral edema, elevated blood pressure, decreased heart rate. Respiratory: Denies cough, difficulty breathing, shortness of breath, excessive sputum, coughing up blood, wheezing, chest pain. Gastrointestinal: Complains of nausea, burning, heartburn. Denies vomiting, bleeding, itching, irritation, cramps, diarrhea, bloody diarrhea, watery diarrhea, constipation, pain or discomfort, feeling any lumps or bumps, pain with BM, pain during receptive anal sex, change in bowel habits, fecal incontinence, abdominal pain, blood in stool, black or tarry stools, jaundice, urge to defecate. Psychiatric: Complains of anxiety. Physical ExamGeneral Appearance: well nourished, well hydrated, no acute distressEyes, External: conjunctivae and lids normal, EOMIRespiratory, Aus cultation: clear to auscultation bilaterally; no rales, rhonchi, or wheezesRespiratory, Effort: no intercostal retractions or use of accessory musclesCardiovascular, Auscultation: S1, S2 audible; no murmur, rub, or gallop; RRRAbdomen: soft, non-tender, no masses, bowel sounds normalCare Management Plan Transitions of CareInboundRate Your HealthIn general, would you say your health is? PoorAssessment & Plan Problems:Added: GERD (ICD-530.81) (VSL05-X20.9) Assessment: will trial dexilant. given severity, will refer to GI for eval.Solitary nodule of lung (ICD-793.11) (UVG46-Z22.1) Assessment: recent CXR from [facility] ED shows hyperdensity in the LLL suspicious for a nodule measuring 7mm. Will refer to pulm.Assessment not SavedMild generalized edema (ICD10- R60.1): Medication Changes:Added: BACLOFEN 5 MG ORAL TABLET-Take 1 TAB 3 times a dayRefilled:TIZANIDINE HCL 4 MG ORAL CAPSULE-one cap po up to TID prn spasm Qty: 30[Capsule] Refills: 1 Method: ElectronicMECLIZINE HCL 25 MG ORAL TABLET-take one tablet by mouth twice daily Qty: 60[Tablet] Refills: 1 Method: ElectronicMETOPROLOL TARTRATE 50 MG ORAL TABLET-po bid Qty: 60[Tablet] Refills: 3 Method: ElectronicALBUTEROL SULFATE (5 MG/ML) 0.5% INHALATION NEBULIZATION SOLUTION-prn Qty: 3[Inhalation] Refills: 0 Method: ElectronicELIQUIS 5 MG ORAL TABLET-take one tab po bid Qty: 60[Tablet] Refills: 2 Method: ElectronicSUCRALFATE 1 GM ORAL TABLET-take one tab po bid Qty: 60[Tablet] Refills: 1 Method: ElectronicFUROSEMIDE 20 MG ORAL TABLET-take one tablet by mouth daily Qty: 30[Tablet] Refills: 1 Method: ElectronicNew Prescription:DEXILANT 30 MG ORAL CAPSULE DELAYED RELEASE-1 tablot once daily Qty: 30[Capsule] Refills: 1 Method: ElectronicOrders:Pulmonology Consult [CPT-11495] Gastroenterology Consult [CPT-50552] Adult - Ofc Vst, EST, Level III [CPT-61699] Follow-Up Return to clinic: in 30 days Clinical Visit Summary DeclinedMedications:DEXILANT 30 MG ORAL CAPSULE DELAYED RELEASE (DEXLANSOPRAZOLE) 1 tablot once daily #30[Capsule] x 1 Route:ORAL Entered and Authorized by: Macy BROWN Method used: Electronically to [facility]* (retail) [address] [place] [address] Note to Pharmacy: Route: ORAL; RxID: [id number] 20 MG ORAL TABLET (FUROSEMIDE) take one tablet by mouth daily #30[Tablet] x 1 Route:ORAL Entered and Authorized by: Macy BROWN Method used: Electronically to [facility]* (retail) [address] [place] [address] Note to Pharmacy: Route: ORAL; RxID: [id number] 1 GM ORAL TABLET (SUCRALFATE) take one tab po bid #60[Tablet] x 1 Route:ORAL Entered and Authorized by: Macy BROWN Method used: Electronically to [facility]* (retail) [address] [place] [address] Note to Pharmacy: Route: ORAL; RxID: [id number] 5 MG ORAL TABLET (APIXABAN) take one tab po bid #60[Tablet] x 2 Route:ORAL Entered and Authorized by: Macy BROWN Method used: Electronically to [facility]* (retail) [address] [place] [address] Note to Pharmacy: Route: ORAL; RxID: [id number] SULFATE (5 MG/ML) 0.5% INHALATION NEBULIZATION SOLUTION (ALBUTEROL SULFATE) prn #3[Inhalation] x 0 Route:INHALATION Entered and Authorized by: Macy BROWN Method used: Electronically to [facility]* (retail) [address] [place] [address] Note to Pharmacy: Route: INH; RxID: [id number] 50 MG ORAL TABLET (METOPROLOL TARTRATE) po bid #60[Tablet] x 3 Route:ORAL Entered and Authorized by: Macy BROWN Method used: Electronically to [facility]* (retail) [address] [place] [address] Note to Pharmacy: Route: ORAL; RxID: [id number] 25 MG ORAL TABLET (MECLIZINE HCL) take one tablet by mouth twice daily #60[Tablet] x 1 R oute:ORAL Entered and Authorized by: Macy BROWN Method used: Electronically to [facility]* (retail) [address] [place] [address] Fax: Note to Pharmacy: Route: ORAL; Indications: DIZZINESS RxID: [id number] HCL 4 MG ORAL CAPSULE (TIZANIDINE HCL) one cap po up to TID prn spasm #30[Capsule] x 1 Route:ORAL Entered and Authorized by: Macy BROWN Method used: Electronically to [facility]* (retail) [address] [place] [address] Note to Pharmacy: Route: ORAL; RxID: [id number] signed by Macy BROWN on 12/23/2019 at 8:44 AM Name Value Range Interpretation Code Description Data Elizabeth rce(s) Supporting Document(s) ID Date Data Source [id number] 12/17/2019 05:51:00 PM EDT [facility] Name Value Range Interpretation Code Description Data Elizabeth rce(s) Supporting Document(s) HCT 39.1 % 36.0-47.0 N [facility] HGB 12.9 g/dL 12.0-15.5 N [facility] MCH 33.0 G/DL pg 32.0-36.5 N [facility] MCHC 30.1 PG % 27.0-33.0 N [facility] PLATELETS 110 10 10*3/mm3 150-450 L [facility] RBC 4.28 10 10*6/mm3 4.00-5.40 N [facility] RDW 12.7 % 11.5-14.5 N [facility] WBC TOTAL 5.9 4.0-10.0 N [facility] ID Date Data Source [id number] 12/17/2019 05:51:00 PM EDT [facility] Name Value Range Interpretation Code Description Data Elizabeth rce(s) Supporting Document(s) BG FASTING 112 mg/dL 70-100 H [facility] T4, FREE 1.05 ng/dL 0.76-1.46 N [facility] TSH 2.010 microintl units/mL 0.358-3.[address] [facility] ID Date Data Source [id number] 12/12/2019 06:15:00 PM EDT [facility] Name Value Range Interpretation Code Description Data Elizabeth rce(s) Supporting Document(s) HCT 45.1 % 36.0-47.0 N [facility] HGB 15.0 g/dL 12.0-15.5 N [facility] MCH 33.3 G/DL pg 32.0-36.5 N [facility] MCHC 30.6 PG % 27.0-33.0 N [facility] PLATELETS 169 10 10*3/mm3 150-450 N [facility] RBC 4.90 10 10*6/mm3 4.00-5.40 N [facility] RDW 12.8 % 11.5-14.5 N [facility] WBC TOTAL 7.1 4.0-10.0 N [facility] ID Date Data Source [id number] 12/12/2019 06:15:00 PM EDT [facility] Name Value Range Interpretation Code Description Data Elizabeth rce(s) Supporting Document(s) BG FASTING 109 mg/dL 70-100 H [facility] Procedure Social History Code Duration Value Status Description Data Source(s ) Smoking 01/07/2021 12:00:00 AM EDT Former Smoker completed Former Smoker eCW1 ([facility]) Smoking 12/28/2020 12:00:00 AM EDT Former Smoker completed Former Smoker eCW1 ([facility]) Smoking 12/25/2020 12:00:00 AM EDT Former Smoker completed Former Smoker eCW1 ([facility]) Smoking 12/16/2020 12:00:00 AM EDT Former Smoker completed Former Smoker eCW1 ([facility]) Smoking 12/10/2020 12:00:00 AM EDT Former Smoker completed Former Smoker eCW1 ([facility]) Smoking 12/10/2020 12:00:00 AM EDT Former Smoker completed Former Smoker eCW1 ([facility]) Smoking 12/10/2020 12:00:00 AM EDT Former Smoker completed Former Smoker eCW1 ([facility]) Smoking 11/30/2020 12:00:00 AM EDT Unknown if ever smoked comp leted Unknown if ever smoked [facility] ([facility]) Alcohol intake 11/26/2020 12:00:00 AM EDT Ex-drinker (finding) comp leted Ex- drinker (finding) [facility] Smoking 10/22/2020 12:00:00 AM EDT Former Smoker completed Former Smoker eCW1 ([facility]) Smoking 10/22/2020 12:00:00 AM EDT Former Smoker completed Former Smoker eCW1 ([facility]) Smoking 10/22/2020 12:00:00 AM EDT Former Smoker completed Former Smoker eCW1 ([facility]) Smoking 10/22/2020 12:00:00 AM EDT Former Smoker completed Former Smoker eCW1 ([facility]) Smoking 10/15/2020 12:00:00 AM EDT Former Smoker completed Former Smoker eCW1 ([facility]) Smoking 10/15/2020 12:00:00 AM EDT Former Smoker completed Former Smoker eCW1 ([facility]) Smoking 10/08/2020 12:00:00 AM EDT Former Smoker completed Former Smoker eCW1 ([facility]) Smoking 10/08/2020 12:00:00 AM EDT Former Smoker completed Former Smoker eCW1 ([facility]) Smoking 09/28/2020 12:00:00 AM EDT Unknown if ever smoked comp leted Unknown if ever smoked [facility] ([facility]) Smoking 09/23/2020 12:00:00 AM EDT Unknown if ever smoked comp leted Unknown if ever smoked [facility] ([facility]) Smoking 09/22/2020 12:00:00 AM EDT Former Smoker completed Former Smoker eCW1 ([facility]) Smoking 09/03/2020 12:00:00 AM EDT Former Smoker completed Former Smoker eCW1 ([facility]) Smoking 09/03/2020 12:00:00 AM EDT Former Smoker completed Former Smoker eCW1 ([facility]) Smoking 08/31/2020 12:00:00 AM EDT Unknown if ever smoked comp leted Unknown if ever smoked [facility] ([facility]) Alcohol intake 08/16/2020 12:00:00 AM EDT Ex-drinker (finding) [facility] Tobacco use and exposure 08/16/2020 12:00:00 AM EDT Never used [facility] Cigarettes smoked current (pack per day) - Reported 08/17/19 [facility] 08/16/2020 12:00:00 AM EDT Former smoker [facility] Cigarette pack-years 08/16/2020 12:00:00 AM EDT [facility] Smoking 08/03/2020 12:00:00 AM EDT Unknown if ever smoked comp leted Unknown if ever smoked [facility] ([facility]) Smoking 07/21/2020 12:00:00 AM EDT Unknown if ever smoked comp leted Unknown if ever smoked [facility] ([facility]) Smoking 07/20/2020 12:00:00 AM EDT Former Smoker completed Former Smoker eCW1 ([facility]) Smoking 07/20/2020 12:00:00 AM EDT Former Smoker completed Former Smoker eCW1 ([facility]) Smoking 07/20/2020 12:00:00 AM EDT Former Smoker completed Former Smoker eCW1 ([facility]) Smoking 07/20/2020 12:00:00 AM EDT Former Smoker completed Former Smoker eCW1 ([facility]) Smoking 07/20/2020 12:00:00 AM EDT Former Smoker completed Former Smoker eCW1 ([facility]) Smoking 07/20/2020 12:00:00 AM EDT Former Smoker completed Former Smoker eCW1 ([facility]) Smoking 07/05/2020 12:00:00 AM EDT Unknown if ever smoked comp leted Unknown if ever smoked [facility] ([facility]) Smoking 06/08/2020 12:00:00 AM EDT Unknown if ever smoked comp leted Unknown if ever smoked [facility] ([facility]) Smoking 05/20/2020 12:00:00 AM EST Former Smoker completed Former Smoker eCW1 ([facility]) Smoking 05/20/2020 12:00:00 AM EST Former Smoker completed Former Smoker eCW1 ([facility]) Smoking 05/20/2020 12:00:00 AM EST Former Smoker completed Former Smoker eCW1 ([facility]) Smoking 05/11/2020 12:00:00 AM EST Unknown if ever smoked comp leted Unknown if ever smoked [facility] ([facility]) Smoking 04/22/2020 12:00:00 AM EST Former Smoker completed Former Smoker eCW1 ([facility]) Smoking 04/22/2020 12:00:00 AM EST Former Smoker completed Former Smoker eCW1 ([facility]) Smoking 04/14/2020 12:00:00 AM EST Unknown if ever smoked comp leted Unknown if ever smoked [facility] ([facility]) Smoking 04/13/2020 12:00:00 AM EST Unknown if ever smoked comp leted Unknown if ever smoked [facility] ([facility]) Smoking 04/01/2020 12:00:00 AM EST Former Smoker completed Former Smoker eCW1 ([facility]) Smoking 04/01/2020 12:00:00 AM EST Former Smoker completed Former Smoker eCW1 ([facility]) Smoking 04/01/2020 12:00:00 AM EST Former Smoker completed Former Smoker eCW1 ([facility]) Smoking 03/30/2020 12:00:00 AM EST Unknown if ever smoked comp leted Unknown if ever smoked [facility] ([facility]) Smoking 03/08/2020 12:00:00 AM EST Unknown if ever smoked comp leted Unknown if ever smoked [facility] ([facility]) Smoking 02/19/2020 12:00:00 AM EST Former Smoker completed Former Smoker eCW1 ([facility]) Smoking 02/19/2020 12:00:00 AM EST Former Smoker completed Former Smoker eCW1 ([facility]) Smoking 02/19/2020 12:00:00 AM EST Former Smoker completed Former Smoker eCW1 ([facility]) Smoking 02/19/2020 12:00:00 AM EST Former Smoker completed Former Smoker eCW1 ([facility]) Smoking 02/19/2020 12:00:00 AM EST Former Smoker completed Former Smoker eCW1 ([facility]) Smoking 02/19/2020 12:00:00 AM EST Former Smoker completed Former Smoker eCW1 ([facility]) Smoking 02/18/2020 12:00:00 AM EST Unknown if ever smoked comp leted Unknown if ever smoked [facility] ([facility]) Smoking 02/02/2020 12:00:00 AM EST Former Smoker completed Former Smoker eCW1 ([facility]) Smoking 01/16/2020 12:00:00 AM EST Former Smoker completed Former Smoker eCW1 ([facility]) Smoking 01/16/2020 12:00:00 AM EST Former Smoker completed Former Smoker eCW1 ([facility]) Smoking 01/16/2020 12:00:00 AM EST Former Smoker completed Former Smoker eCW1 ([facility]) Smoking 01/16/2020 12:00:00 AM EST Former Smoker completed Former Smoker eCW1 ([facility]) Smoking 01/13/2020 12:00:00 AM EST Unknown if ever smoked comp leted Unknown if ever smoked [facility] ([facility]) Smoking 01/06/2020 12:00:00 AM EDT Patient is a former smoker completed Patient is a former smoker [facility] ([facility] ) Smoking 12/18/2019 12:00:00 AM EDT Unknown if ever smoked comp leted Unknown if ever smoked [facility] ([facility]) Smoking 12/12/2019 12:00:00 AM EDT Unknown if ever smoked comp leted Unknown if ever smoked [facility] ([facility]) Smoking 12/09/2019 12:00:00 AM EDT Unknown if ever smoked comp leted Unknown if ever smoked [facility] ([facility]) Smoking 11/27/2019 12:00:00 AM EDT Unknown if ever smoked comp leted Unknown if ever smoked [facility] ([facility]) Vital Signs ID Date Data Source UNK Name Value Range Interpretation Code Description Data Source(s) Diastolic blood pressure 79 mm[Hg] 79 mm[Hg] ADRIA ([facility]) Body height 62 [in_i] 62 [in_i] [facility] ([facility]) Body mass index (BMI) [Ratio] 48.3 kg/m2 48.3 k g/m2 [facility] ([facility]) Systolic blood pressure 116 mm[Hg] 116 mm[Hg] A THENA ([facility]) Body weight 4228 [oz_av] 4228 [oz_av] ADRIA ([facility]) Heart rate 86 /min 86 /min eCW1 ([facility]) Body weight 263 [lb_av] 263 [lb_av] eCW1 ([facility]) Body weight 119.3 kg 119.3 kg eCW1 ([facility]) Body height 61 [in_i] 61 [in_i] eCW1 ([facility]) Body mass index (BMI) [Ratio] 49.69 kg/m2 49.69 kg/m2 eCW1 ([facility]) Respiratory rate 18 /min 18 /min eCW1 ([facility]) Body temperature 98.0 [degF] 98.0 [degF] eCW1 ( [facility]) Systolic blood pressure 144 mm[Hg] 144 mm[Hg] e CW1 ([facility]) Diastolic blood pressure 86 mm[Hg] 86 mm[Hg] eCW1 ([facility]) Body weight 263.4 [lb_av] 263.4 [lb_av] eCW1 ([facility]) Body weight 119.48 kg 119.48 kg eCW1 ([facility]) Body height 61 [in_i] 61 [in_i] eCW1 ([facility]) Body mass index (BMI) [Ratio] 49.76 kg/m2 49.76 kg/m2 eCW1 ([facility]) Heart rate 85 /min 85 /min eCW1 ([facility]) Respiratory rate 18 /min 18 /min eCW1 ([facility]) Body temperature 98.2 [degF] 98.2 [degF] eCW1 ( [facility]) Systolic blood pressure 139 mm[Hg] 139 mm[Hg] e CW1 ([facility]) Diastolic blood pressure 70 mm[Hg] 70 mm[Hg] eCW1 ([facility]) Systolic blood pressure 120 mm[Hg] 120 mm[Hg] [facility] Diastolic blood pressure 70 mm[Hg] 70 mm[Hg] [facility] Heart rate 80 /min 80 /min [facility] Body height 157.5 cm 157.5 cm [facility] Body weight 119.296 kg 119.296 kg [facility] Body mass index (BMI) [Ratio] 48.10 kg/m2 48.10 kg/m2 [facility] Oxygen saturation in Arterial blood by Pulse oximetry 94 % 94 % [facility] Diastolic blood pressure 84 mm[Hg] 84 mm[Hg] [facility] ([facility]) Body height 62 [in_i] 62 [in_i] [facility] ([facility]) Body mass index (BMI) [Ratio] 48 kg/m2 48 kg/ m2 [facility] ([facility]) Systolic blood pressure 123 mm[Hg] 123 mm[Hg] A [facility] ([facility]) Body weight 4200 [oz_av] 4200 [oz_av] [facility]A ([facility]) Diastolic blood pressure 84 mm[Hg] 84 mm[Hg] [facility] ([facility]) Body height 62 [in_i] 62 [in_i] [facility] ([facility]) Body mass index (BMI) [Ratio] 48 kg/m2 48 kg/ m2 [facility] ([facility]) Systolic blood pressure 123 mm[Hg] 123 mm[Hg] A [facility] ([facility]) Body weight 4200 [oz_av] 4200 [oz_av] [facility] ([facility]) Body height 62 [in_i] 62 [in_i] [facility] ([facility]) Body height 62 [in_i] 62 [in_i] [facility] ([facility]) Body height 62 [in_i] 62 [in_i] [facility] ([facility]) Body weight 262 [lb_av] 262 [lb_av] eCW1 ([facility]) Body weight 118.84 kg 118.84 kg eCW1 ([facility]) Body height 61 [in_i] 61 [in_i] eCW1 ([facility]) Body mass index (BMI) [Ratio] 49.50 kg/m2 49.50 kg/m2 eCW1 ([facility]) Body height 62 [in_i] 62 [in_i] ADRIA ([facility]) Body height 62 [in_i] 62 [in_i] [facility] ([facility]) Body height 62 [in_i] 62 [in_i] [facility] ([facility]) Body height 62 [in_i] 62 [in_i] [facility] ([facility]) Body weight 262.2 [lb_av] 262.2 [lb_av] eCW1 ([facility]) Body height 61 [in_i] 61 [in_i] eCW1 ([facility]) Body mass index (BMI) [Ratio] 49.54 kg/m2 49.54 kg/m2 W1 ([facility]) Heart rate 75 /min 75 /min eCW1 ([facility]) Respiratory rate 20 /min 20 /min eCW1 ([facility]) Body temperature 98.0 [degF] 98.0 [degF] eCW1 ( [facility]) Systolic blood pressure 188 mm[Hg] 188 mm[Hg] e CW1 ([facility]) Diastolic blood pressure 99 mm[Hg] 99 mm[Hg] eCW1 ([facility]) Body weight 258.4 [lb_av] 258.4 [lb_av] eCW1 ([facility]) Body height 61 [in_i] 61 [in_i] eCW1 ([facility]) Body mass index (BMI) [Ratio] 48.82 kg/m2 48.82 kg/m2 eCW1 ([facility]) Heart rate 79 /min 79 /min eCW1 ([facility]) Respiratory rate 18 /min 18 /min eCW1 ([facility]) Body temperature 97.3 [degF] 97.3 [degF] eCW1 ( [facility]) Systolic blood pressure 164 mm[Hg] 164 mm[Hg] e CW1 ([facility]) Diastolic blood pressure 73 mm[Hg] 73 mm[Hg] eCW1 ([facility]) Body weight 257.8 [lb_av] 257.8 [lb_av] eCW1 ([facility]) Body height 61 [in_i] 61 [in_i] eCW1 ([facility]) Body mass index (BMI) [Ratio] 48.71 kg/m2 48.71 kg/m2 eCW1 ([facility]) Heart rate 83 /min 83 /min eCW1 ([facility]) Respiratory rate 18 /min 18 /min eCW1 ([facility]) Body temperature 97.8 [degF] 97.8 [degF] eCW1 ( [facility]) Systolic blood pressure 147 mm[Hg] 147 mm[Hg] e CW1 ([facility]) Diastolic blood pressure 72 mm[Hg] 72 mm[Hg] eCW1 ([facility]) Diastolic blood pressure 83 mm[Hg] 83 mm[Hg] ADRIA ([facility]) Body height 62 [in_i] 62 [in_i] [facility] ([facility]) Body mass index (BMI) [Ratio] 49.4 kg/m2 49.4 k g/m2 [facility] ([facility]) Systolic blood pressure 121 mm[Hg] 121 mm[Hg] A [facility] ([facility]) Body weight 4320 [oz_av] 4320 [oz_av] [facility]A ([facility]) Systolic blood pressure 121 mm[Hg] 121 mm[Hg] A THENA ([facility]) Body weight 4320 [oz_av] 4320 [oz_av] [facility]RIA ([facility]) Body mass index (BMI) [Ratio] 49.4 kg/m2 49.4 k g/m2 [facility] ([facility]) Diastolic blood pressure 83 mm[Hg] 83 mm[Hg] [facility] ([facility]) Body height 62 [in_i] 62 [in_i] [facility] ([facility]) Systolic blood pressure 121 mm[Hg] 121 mm[Hg] A THENA ([facility]) Body weight 4320 [oz_av] 4320 [oz_av] [facility] ([facility]) Diastolic blood pressure 83 mm[Hg] 83 mm[Hg] [facility] ([facility]) Body height 62 [in_i] 62 [in_i] [facility] ([facility]) Body mass index (BMI) [Ratio] 49.4 kg/m2 49.4 k g/m2 [facility] ([facility]) Diastolic blood pressure 83 mm[Hg] 83 mm[Hg] [facility] ([facility]) Body height 62 [in_i] 62 [in_i] [facility] ([facility]) Body mass index (BMI) [Ratio] 49.4 kg/m2 49.4 k g/m2 [facility] ([facility]) Systolic blood pressure 121 mm[Hg] 121 mm[Hg] A THENA ([facility]) Body weight 4320 [oz_av] 4320 [oz_av] [facility] ([facility]) Diastolic blood pressure 83 mm[Hg] 83 mm[Hg] [facility] ([facility]) Body height 62 [in_i] 62 [in_i] [facility] ([facility]) Body mass index (BMI) [Ratio] 49.4 kg/m2 49.4 k g/m2 [facility] ([facility]) Systolic blood pressure 121 mm[Hg] 121 mm[Hg] A THENA ([facility]) Body weight 4320 [oz_av] 4320 [oz_av] [facility]RIA ([facility]) Body height 62.00 in Normal (applies to non-numeric resu lts) 62.00 [facility] Body weight Measured 259.00 lbs Normal (applies to n on-numeric results) 259.00 lbs [facility] ([facility]) Body mass index (BMI) [Ratio] 47.37 kg/m2 No rmal (applies to non-numeric results) 47.37 kg/m2 [facility] ([facility]) Systolic blood pressure 144 mm[Hg] Normal (applies t o non-numeric results) 144 mm[Hg] [facility] ([facility]) Diastolic blood pressure 103 mm[Hg] Normal (applies to non-numeric results) 103 mm[Hg] [facility] ([facility]) Body height --lying 90 min Normal (applies to non-nume russ results) 90 min [facility] ([facility]) Respiratory rate 18 min Normal (applies to non-numeric results) 18 min [facility] ([facility]) Body height 0.00 in Normal (applies to non-numeric resu lts) 0.00 in [facility] ([facility]) Body weight Measured 0.00 lbs Normal (applies to n on-numeric results) 0.00 lbs [facility] ([facility]) Body mass index (BMI) [Ratio] 0.00 kg/m2 No rmal (applies to non-numeric results) 0.00 kg/m2 [facility] ([facility]) Systolic blood pressure 0 mm[Hg] Normal (applies t o non-numeric results) 0 mm[Hg] [facility] ([facility]) Diastolic blood pressure 0 mm[Hg] Normal (applies to non-numeric results) 0 mm[Hg] [facility] ([facility]) Body weight 264.4 [lb_av] 264.4 [lb_av] eCW1 ([facility]) Body height 61 [in_i] 61 [in_i] eCW1 ([facility]) Body mass index (BMI) [Ratio] 49.95 kg/m2 49.95 kg/m2 [facility] ([facility]) Heart rate 65 /min 65 /min eCW1 ([facility]) Respiratory rate 18 /min 18 /min eCW1 ([facility]) Body temperature 96.0 [degF] 96.0 [degF] eCW1 ( [facility]) Systolic blood pressure 154 mm[Hg] 154 mm[Hg] e CW1 ([facility]) Diastolic blood pressure 88 mm[Hg] 88 mm[Hg] eCW1 ([facility]) Body height 62 [in_i] 62 [in_i] [facility]A ([facility]) Diastolic blood pressure 84 mm[Hg] 84 mm[Hg] [facility] ([facility]) Systolic blood pressure 138 mm[Hg] 138 mm[Hg] A [facility] ([facility]) Body weight 4342 [oz_av] 4342 [oz_av] [facility]A ([facility]) Body mass index (BMI) [Ratio] 49.6 kg/m2 49.6 k g/m2 [facility] ([facility]) Diastolic blood pressure 84 mm[Hg] 84 mm[Hg] [facility] ([facility]) Body height 62 [in_i] 62 [in_i] [facility] ([facility]) Body mass index (BMI) [Ratio] 49.6 kg/m2 49.6 k g/m2 [facility] ([facility]) Systolic blood pressure 138 mm[Hg] 138 mm[Hg] [facility] Body weight 4342 [oz_av] 4342 [oz_av] DARIA ([facility]) Diastolic blood pressure 84 mm[Hg] 84 mm[Hg] [facility] ([facility]) Body height 62 [in_i] 62 [in_i] [facility] ([facility]) Body mass index (BMI) [Ratio] 49.6 kg/m2 49.6 k g/m2 [facility] ([facility]) Systolic blood pressure 138 mm[Hg] 138 mm[Hg] A THENA ([facility]) Body weight 4342 [oz_av] 4342 [oz_av] [facility] ([facility]) Diastolic blood pressure 84 mm[Hg] 84 mm[Hg] [facility] ([facility]) Body height 62 [in_i] 62 [in_i] [facility] ([facility]) Body mass index (BMI) [Ratio] 49.6 kg/m2 49.6 k g/m2 [facility] ([facility]) Systolic blood pressure 138 mm[Hg] 138 mm[Hg] A THENA ([facility]) Body weight 4342 [oz_av] 4342 [oz_av] [facility] ([facility]) Diastolic blood pressure 84 mm[Hg] 84 mm[Hg] [facility] ([facility]) Body height 62 [in_i] 62 [in_i] [facility] ([facility]) Body mass index (BMI) [Ratio] 49.6 kg/m2 49.6 k g/m2 ADRIA ([facility]) Systolic blood pressure 138 mm[Hg] 138 mm[Hg] A [facility]) Body weight 4342 [oz_av] 4342 [oz_av] ADRIA ([facility]) Diastolic blood pressure 84 mm[Hg] 84 mm[Hg] ADRIA ([facility]) Body height 62 [in_i] 62 [in_i] ADRIA ([facility]) Body mass index (BMI) [Ratio] 49.6 kg/m2 49.6 k g/m2 ADRIA ([facility]) Systolic blood pressure 138 mm[Hg] 138 mm[Hg] A THENA ([facility]) Body weight 4342 [oz_av] 4342 [oz_av] ADRIA ([facility]) Diastolic blood pressure 84 mm[Hg] 84 mm[Hg] ADRIA ([facility]) Body height 62 [in_i] 62 [in_i] ADRIA ([facility]) Body mass index (BMI) [Ratio] 49.6 kg/m2 49.6 k g/m2 ADRIA ([facility]) Systolic blood pressure 138 mm[Hg] 138 mm[Hg] A THENA ([facility]) Body weight 4342 [oz_av] 4342 [oz_av] ADRIA ([facility]) Body weight 269.2 [lb_av] 269.2 [lb_av] eCW1 ([facility]) Body height 61 [in_i] 61 [in_i] eCW1 ([facility]) Body mass index (BMI) [Ratio] 50.86 kg/m2 50.86 kg/m2 eCW1 ([facility]) Heart rate 102 /min 102 /min eCW1 ([facility]) Respiratory rate 18 /min 18 /min eCW1 ([facility]) Body temperature 96 [degF] 96 [degF] eCW1 ([facility]) Systolic blood pressure 134 mm[Hg] 134 mm[Hg] e CW1 ([facility]) Diastolic blood pressure 90 mm[Hg] 90 mm[Hg] eCW1 ([facility]) Diastolic blood pressure 66 mm[Hg] 66 mm[Hg] ADRIA ([facility]) Diastolic blood pressure 84 mm[Hg] 84 mm[Hg] ADRIA ([facility]) Body height 62 [in_i] 62 [in_i] ADRIA ([facility]) Body weight 4320 [oz_av] 4320 [oz_av] ADRIA ([facility]) Body mass index (BMI) [Ratio] 49.4 kg/m2 49.4 k g/m2 ADRIA ([facility]) Systolic blood pressure 141 mm[Hg] 141 mm[Hg] A [facility] ([facility]) Systolic blood pressure 111 mm[Hg] 111 mm[Hg] A [facility] ([facility]) Body mass index (BMI) [Ratio] 49.4 kg/m2 49.4 k g/m2 ADRIA ([facility]) Diastolic blood pressure 66 mm[Hg] 66 mm[Hg] ADRIA ([facility]) Diastolic blood pressure 84 mm[Hg] 84 mm[Hg] ADRIA ([facility]) Body height 62 [in_i] 62 [in_i] ADRIA ([facility]) Systolic blood pressure 111 mm[Hg] 111 mm[Hg] A [facility] ([facility]) Systolic blood pressure 141 mm[Hg] 141 mm[Hg] A [facility] ([facility]) Body weight 4320 [oz_av] 4320 [oz_av] ADRIA ([facility]) Body weight 4320 [oz_av] 4320 [oz_av] ADRIA ([facility]) Body height 62 [in_i] 62 [in_i] ADRIA ([facility]) Diastolic blood pressure 66 mm[Hg] 66 mm[Hg] ADRIA ([facility]) Diastolic blood pressure 84 mm[Hg] 84 mm[Hg] ADRIA ([facility]) Body mass index (BMI) [Ratio] 49.4 kg/m2 49.4 k g/m2 ADRIA ([facility]) Systolic blood pressure 111 mm[Hg] 111 mm[Hg] A [facility]) Systolic blood pressure 141 mm[Hg] 141 mm[Hg] A [facility] ([facility]) Systolic blood pressure 141 mm[Hg] 141 mm[Hg] A [facility] ([facility]) Body weight 4320 [oz_av] 4320 [oz_av] ADRIA ([facility]) Diastolic blood pressure 66 mm[Hg] 66 mm[Hg] ADRIA ([facility]) Diastolic blood pressure 84 mm[Hg] 84 mm[Hg] ADRIA ([facility]) Body height 62 [in_i] 62 [in_i] ADRIA ([facility]) Body mass index (BMI) [Ratio] 49.4 kg/m2 49.4 k g/m2 ADRIA ([facility]) Systolic blood pressure 111 mm[Hg] 111 mm[Hg] A THENA ([facility]) Diastolic blood pressure 66 mm[Hg] 66 mm[Hg] ADRIA ([facility]) Diastolic blood pressure 84 mm[Hg] 84 mm[Hg] ADRIA ([facility]) Body height 62 [in_i] 62 [in_i] ADRIA ([facility]) Body mass index (BMI) [Ratio] 49.4 kg/m2 49.4 k g/m2 ADRIA ([facility]) Systolic blood pressure 111 mm[Hg] 111 mm[Hg] A THENA ([facility]) Systolic blood pressure 141 mm[Hg] 141 mm[Hg] A THENA ([facility]) Body weight 4320 [oz_av] 4320 [oz_av] ADRIA ([facility]) Diastolic blood pressure 66 mm[Hg] 66 mm[Hg] ADRIA ([facility]) Diastolic blood pressure 84 mm[Hg] 84 mm[Hg] ADRIA ([facility]) Body height 62 [in_i] 62 [in_i] ADRIA ([facility]) Body mass index (BMI) [Ratio] 49.4 kg/m2 49.4 k g/m2 ADRIA ([facility]) Systolic blood pressure 111 mm[Hg] 111 mm[Hg] A THENA ([facility]) Systolic blood pressure 141 mm[Hg] 141 mm[Hg] A THENA ([facility]) Body weight 4320 [oz_av] 4320 [oz_av] ADRIA ([facility]) Systolic blood pressure 141 mm[Hg] 141 mm[Hg] A THENA ([facility]) Body weight 4320 [oz_av] 4320 [oz_av] ADRIA ([facility]) Body height 62 [in_i] 62 [in_i] ADRIA ([facility]) Body mass index (BMI) [Ratio] 49.4 kg/m2 49.4 k g/m2 ADRIA ([facility]) Systolic blood pressure 111 mm[Hg] 111 mm[Hg] A [facility]) Diastolic blood pressure 66 mm[Hg] 66 mm[Hg] ADRIA ([facility]) Diastolic blood pressure 84 mm[Hg] 84 mm[Hg] ADRIA ([facility]) Diastolic blood pressure 66 mm[Hg] 66 mm[Hg] ADRIA ([facility]) Diastolic blood pressure 84 mm[Hg] 84 mm[Hg] ADRIA ([facility]) Body height 62 [in_i] 62 [in_i] ADRIA ([facility]) Body mass index (BMI) [Ratio] 49.4 kg/m2 49.4 k g/m2 ADRIA ([facility]) Systolic blood pressure 111 mm[Hg] 111 mm[Hg] A THENA ([facility]) Systolic blood pressure 141 mm[Hg] 141 mm[Hg] A THENA ([facility]) Body weight 4320 [oz_av] 4320 [oz_av] ADRIA ([facility]) Diastolic blood pressure 66 mm[Hg] 66 mm[Hg] ADRIA ([facility]) Diastolic blood pressure 84 mm[Hg] 84 mm[Hg] ARDIA ([facility]) Body height 62 [in_i] 62 [in_i] ADRIA ([facility]) Body mass index (BMI) [Ratio] 49.4 kg/m2 49.4 k g/m2 ADRIA ([facility]) Systolic blood pressure 111 mm[Hg] 111 mm[Hg] A THENA ([facility]) Systolic blood pressure 141 mm[Hg] 141 mm[Hg] A THENA ([facility]) Body weight 4320 [oz_av] 4320 [oz_av] ADRIA ([facility]) Body weight 266.2 [lb_av] 266.2 [lb_av] eCW1 ([facility]) Body height 61 [in_i] 61 [in_i] eCW1 ([facility]) Body mass index (BMI) [Ratio] 50.29 kg/m2 50.29 kg/m2 eCW1 ([facility]) Heart rate 66 /min 66 /min eCW1 ([facility]) Respiratory rate 18 /min 18 /min eCW1 ([facility]) Body temperature 96.0 [degF] 96.0 [degF] eCW1 ( [facility]) Systolic blood pressure 142 mm[Hg] 142 mm[Hg] e CW1 ([facility]) Diastolic blood pressure 74 mm[Hg] 74 mm[Hg] eCW1 ([facility]) Systolic blood pressure 0 mm[Hg] Normal (applies t o non-numeric results) 0 mm[Hg] [facility] ([facility]) Diastolic blood pressure 0 mm[Hg] Normal (applies to non-numeric results) 0 mm[Hg] [facility] ([facility]) Body height 0.00 in Normal (applies to non-numeric resu lts) 0.00 in [facility] ([facility]) Body weight Measured 0.00 lbs Normal (applies to n on-numeric results) 0.00 lbs [facility] ([facility]) Body mass index (BMI) [Ratio] 0.00 kg/m2 No rmal (applies to non-numeric results) 0.00 kg/m2 [facility] ([facility]) Body weight 259.0 [lb_av] 259.0 [lb_av] eCW1 ([facility]) Body mass index (BMI) [Ratio] 48.93 kg/m2 48.93 kg/m2 eCW1 ([facility]) Body height 61 [in_i] 61 [in_i] eCW1 ([facility]) Heart rate 103 /min 103 /min eCW1 ([facility]) Respiratory rate 18 /min 18 /min eCW1 ([facility]) Body temperature 97.9 [degF] 97.9 [degF] eCW1 ( [facility]) Systolic blood pressure 138 mm[Hg] 138 mm[Hg] e CW1 ([facility]) Diastolic blood pressure 88 mm[Hg] 88 mm[Hg] eCW1 ([facility]) Body temperature 97.5 [degF] 97.5 [degF] [facility], ) Body height 63 [in_i] 63 [in_i] [facility] ([facility], ) 5'3" Body weight 261.00 [lb_av] 261.00 [lb_av] MEDEN T ([facility], ) Body mass index (BMI) [Ratio] 46.2 kg/m2 46.2 k g/m2 MEDENT ([facility], ) [place] body weight 115 [lb_av] 115 [lb_av] MEDEN T ([facility], ) Body weight 118.390 kg 118.390 kg [facility] ([facility], ) Body surface area Derived from formula 2.17 m2 2.17 m2 [facility] ([facility], ) Body height 61 [in_i] 61 [in_i] eCW1 ([facility]) Body mass index (BMI) [Ratio] 49.50 kg/m2 49.50 kg/m2 eCW1 ([facility]) Respiratory rate 18 /min 18 /min eCW1 ([facility]) Body weight 262 [lb_av] 262 [lb_av] eCW1 ([facility]) Heart rate 72 /min 72 /min eCW1 ([facility]) Body temperature 95.8 [degF] 95.8 [degF] eCW1 ( [facility]) Systolic blood pressure 135 mm[Hg] 135 mm[Hg] e CW1 ([facility]) Diastolic blood pressure 62 mm[Hg] 62 mm[Hg] eCW1 ([facility]) Body weight 263.4 [lb_av] 263.4 [lb_av] eCW1 ([facility]) Body height 61 [in_i] 61 [in_i] eCW1 ([facility]) Body mass index (BMI) [Ratio] 49.76 kg/m2 49.76 kg/m2 eCW1 ([facility]) Heart rate 74 /min 74 /min eCW1 ([facility]) Respiratory rate 18 /min 18 /min eCW1 ([facility]) Body temperature 96.0 [degF] 96.0 [degF] eCW1 ( [facility]) Systolic blood pressure 128 mm[Hg] 128 mm[Hg] e CW1 ([facility]) Diastolic blood pressure 81 mm[Hg] 81 mm[Hg] eCW1 ([facility]) Systolic blood pressure 120 mm[Hg] 120 mm[Hg] M EDENT ([facility]) Diastolic blood pressure 83 mm[Hg] 83 mm[Hg] MEDENT ([facility]) Heart rate 63 /min 63 /min MEDENT ([facility]) Body temperature 98.0 [degF] 98.0 [degF] MEDENT ([facility]) Respiratory rate 16 /min 16 /min MEDENT ( [facility]) Oxygen saturation in Arterial blood by Pulse oximetry 95 % 95 % MEDENT ([facility]) Body weight 250.00 [lb_av] 250.00 [lb_av] MEDEN T ([facility]) Body weight 113.400 kg 113.400 kg MEDENT ([facility]) Body height 62 [in_i] 62 [in_i] MEDENT ([facility]) 5'2" Body mass index (BMI) [Ratio] 45.7 kg/m2 45.7 k g/m2 MEDENT ([facility]) Body surface area Derived from formula 2.10 m2 2.10 m2 [facility] ([facility]) Diastolic blood pressure 78 mm[Hg] 78 mm[Hg] ADRIA ([facility]) Body height 62 [in_i] 62 [in_i] ADRIA ([facility]) Body mass index (BMI) [Ratio] 47.8 kg/m2 47.8 k g/m2 [facility]A ([facility]) Systolic blood pressure 111 mm[Hg] 111 mm[Hg] A [facility] ([facility]) Body weight 4184 [oz_av] 4184 [oz_av] ADRIA ([facility]) Diastolic blood pressure 78 mm[Hg] 78 mm[Hg] ADRIA ([facility]) Body height 62 [in_i] 62 [in_i] ADRIA ([facility]) Systolic blood pressure 111 mm[Hg] 111 mm[Hg] A [facility] ([facility]) Body mass index (BMI) [Ratio] 47.8 kg/m2 47.8 k g/m2 ADRIA ([facility]) Body weight 4184 [oz_av] 4184 [oz_av] ADRIA ([facility]) Systolic blood pressure 111 mm[Hg] 111 mm[Hg] A [facility]) Body weight 4184 [oz_av] 4184 [oz_av] ADRIA ([facility]) Diastolic blood pressure 78 mm[Hg] 78 mm[Hg] ADRIA ([facility]) Body height 62 [in_i] 62 [in_i] ADRIA ([facility]) Body mass index (BMI) [Ratio] 47.8 kg/m2 47.8 k g/m2 ADRIA ([facility]) Diastolic blood pressure 78 mm[Hg] 78 mm[Hg] ADRIA ([facility]) Body height 62 [in_i] 62 [in_i] ADRIA ([facility]) Body mass index (BMI) [Ratio] 47.8 kg/m2 47.8 k g/m2 ADRIA ([facility]) Systolic blood pressure 111 mm[Hg] 111 mm[Hg] A [facility]) Body weight 4184 [oz_av] 4184 [oz_av] ADRIA ([facility]) Diastolic blood pressure 78 mm[Hg] 78 mm[Hg] ADRIA ([facility]) Body height 62 [in_i] 62 [in_i] ADRIA ([facility]) Body mass index (BMI) [Ratio] 47.8 kg/m2 47.8 k g/m2 ADRIA ([facility]) Systolic blood pressure 111 mm[Hg] 111 mm[Hg] A [facility]) Body weight 4184 [oz_av] 4184 [oz_av] ADRIA ([facility]) Diastolic blood pressure 78 mm[Hg] 78 mm[Hg] ADRIA ([facility]) Body height 62 [in_i] 62 [in_i] ADRIA ([facility]) Body mass index (BMI) [Ratio] 47.8 kg/m2 47.8 k g/m2 ADRIA ([facility]) Systolic blood pressure 111 mm[Hg] 111 mm[Hg] A THENA ([facility]) Body weight 4184 [oz_av] 4184 [oz_av] ADRIA ([facility]) Diastolic blood pressure 78 mm[Hg] 78 mm[Hg] ADRIA ([facility]) Body height 62 [in_i] 62 [in_i] ADRIA ([facility]) Body mass index (BMI) [Ratio] 47.8 kg/m2 47.8 k g/m2 ADRIA ([facility]) Systolic blood pressure 111 mm[Hg] 111 mm[Hg] A [facility]) Body weight 4184 [oz_av] 4184 [oz_av] ADRIA ([facility]) Diastolic blood pressure 78 mm[Hg] 78 mm[Hg] ADRIA ([facility]) Body height 62 [in_i] 62 [in_i] ADRIA ([facility]) Body mass index (BMI) [Ratio] 47.8 kg/m2 47.8 k g/m2 ADRIA ([facility]) Systolic blood pressure 111 mm[Hg] 111 mm[Hg] A THENA ([facility]) Body weight 4184 [oz_av] 4184 [oz_av] ADRIA ([facility]) Diastolic blood pressure 78 mm[Hg] 78 mm[Hg] ADRIA ([facility]) Body height 62 [in_i] 62 [in_i] ADRIA ([facility]) Body mass index (BMI) [Ratio] 47.8 kg/m2 47.8 k g/m2 ADRIA ([facility]) Systolic blood pressure 111 mm[Hg] 111 mm[Hg] A THENA ([facility]) Body weight 4184 [oz_av] 4184 [oz_av] ADRIA ([facility]) Diastolic blood pressure 78 mm[Hg] 78 mm[Hg] ADRIA ([facility]) Body height 62 [in_i] 62 [in_i] ADRIA ([facility]) Body mass index (BMI) [Ratio] 47.8 kg/m2 47.8 k g/m2 ADRIA ([facility]) Systolic blood pressure 111 mm[Hg] 111 mm[Hg] A THENA ([facility]) Body weight 4184 [oz_av] 4184 [oz_av] ADRIA ([facility]) Body weight 259.0 [lb_av] 259.0 [lb_av] eCW1 ([facility]) Body height 61 [in_i] 61 [in_i] eCW1 ([facility]) Body mass index (BMI) [Ratio] 48.93 kg/m2 48.93 kg/m2 [facility] ([facility]) Heart rate 85 /min 85 /min eCW1 ([facility]) Respiratory rate 18 /min 18 /min eCW1 ([facility]) Body temperature 97.0 [degF] 97.0 [degF] eCW1 ( [facility]) Systolic blood pressure 121 mm[Hg] 121 mm[Hg] e CW1 ([facility]) Diastolic blood pressure 72 mm[Hg] 72 mm[Hg] eCW1 ([facility]) Body mass index (BMI) [Ratio] 46.2 kg/m2 46.2 k g/m2 MEDENT ([facility], ) [place] body weight 110 [lb_av] 110 [lb_av] MEDEN T ([facility]) Body weight 114.477 kg 114.477 kg [facility] ([facility]) Body surface area Derived from formula 2.11 m2 2.11 m2 [facility] ([facility]) Systolic blood pressure 124 mm[Hg] 124 mm[Hg] M EDENT ([facility]) Diastolic blood pressure 72 mm[Hg] 72 mm[Hg] [facility] ([facility]) Heart rate 69 /min 69 /min [facility] ([facility]) Oxygen saturation in Arterial blood by Pulse oximetry 97 % 97 % [facility] ([facility]) Body temperature 97.2 [degF] 97.2 [degF] [facility] ([facility]) Body height 62 [in_i] 62 [in_i] [facility] ([facility], ) 5'2" Body weight 252.38 [lb_av] 252.38 [lb_av] MEDEN T ([facility]) Body weight 3920 [oz_av] 3920 [oz_av] ADRIA ([facility]) Body height 62 [in_i] 62 [in_i] ADRIA ([facility]) Body mass index (BMI) [Ratio] 44.97 kg/m2 44.97 kg/m2 ADRIA ([facility]) Body height 62 [in_i] 62 [in_i] ADRIA ([facility]) Body mass index (BMI) [Ratio] 44.97 kg/m2 44.97 kg/m2 ADRIA ([facility]) Body weight 3920 [oz_av] 3920 [oz_av] ADRIA ([facility]) Body height 62 [in_i] 62 [in_i] ADRIA ([facility]) Body mass index (BMI) [Ratio] 44.97 kg/m2 44.97 kg/m2 ADRIA ([facility]) Body weight 3920 [oz_av] 3920 [oz_av] ADRIA ([facility]) Body weight 3920 [oz_av] 3920 [oz_av] ADRIA ([facility]) Body height 62 [in_i] 62 [in_i] ADRIA ([facility]) Body mass index (BMI) [Ratio] 44.97 kg/m2 44.97 kg/m2 ADRIA ([facility]) Body height 62 [in_i] 62 [in_i] ADRIA ([facility]) Body mass index (BMI) [Ratio] 44.97 kg/m2 44.97 kg/m2 ADRIA ([facility]) Body weight 3920 [oz_av] 3920 [oz_av] ADRIA ([facility]) Body height 62 [in_i] 62 [in_i] ADRIA ([facility]) Body mass index (BMI) [Ratio] 44.97 kg/m2 44.97 kg/m2 ADRIA ([facility]) Body weight 3920 [oz_av] 3920 [oz_av] ADRIA ([facility]) Body height 62 [in_i] 62 [in_i] ADRIA ([facility]) Body mass index (BMI) [Ratio] 44.97 kg/m2 44.97 kg/m2 ADRIA ([facility]) Body weight 3920 [oz_av] 3920 [oz_av] ADRIA ([facility]) Body height 62 [in_i] 62 [in_i] ADRIA ([facility]) Body mass index (BMI) [Ratio] 44.97 kg/m2 44.97 kg/m2 ADRIA ([facility]) Body weight 3920 [oz_av] 3920 [oz_av] ADRIA ([facility]) Body height 62 [in_i] 62 [in_i] ADRIA ([facility]) Body mass index (BMI) [Ratio] 44.97 kg/m2 44.97 kg/m2 ADRIA ([facility]) Body weight 3920 [oz_av] 3920 [oz_av] ADRIA ([facility]) Body height 0.00 in Normal (applies to non-numeric resu lts) 0.00 in [facility] ([facility]) Body weight Measured 0.00 lbs Normal (applies to n on-numeric results) 0.00 lbs [facility] ([facility]) Body mass index (BMI) [Ratio] 0.00 kg/m2 No rmal (applies to non-numeric results) 0.00 kg/m2 [facility] ([facility]) Systolic blood pressure 0 mm[Hg] Normal (applies t o non-numeric results) 0 mm[Hg] [facility] ([facility]) Diastolic blood pressure 0 mm[Hg] Normal (applies to non-numeric results) 0 mm[Hg] [facility] ([facility]) Body height 0.00 in Normal (applies to non-numeric resu lts) 0.00 in [facility] ([facility]) Body weight Measured 0.00 lbs Normal (applies to n on-numeric results) 0.00 lbs [facility] ([facility]) Body mass index (BMI) [Ratio] 0.00 kg/m2 No rmal (applies to non-numeric results) 0.00 kg/m2 [facility] ([facility]) Systolic blood pressure 0 mm[Hg] Normal (applies t o non-numeric results) 0 mm[Hg] [facility] ([facility]) Diastolic blood pressure 0 mm[Hg] Normal (applies to non-numeric results) 0 mm[Hg] [facility] ([facility]) ID Date Data Source [id number] 08/21/2020 06:01:32 PM EDT [facility] Name Value Range Interpretation Code Description Data Source(s) WEIGHT 271.17 lb 271.17 lb [facility] HEIGHT 62 in 62 in [facility] Patient Treatment Plan of Care Planned Activity Planned Date Details Description Data Source (s) [place] 150 MCG 01/07/2021 12:00:00 AM EDT eCW1 ([facility]) 24 HR mirabegron 50 MG Extended Release Oral Tablet [M yrbetriq] 12/16/2020 12:00:00 AM EDT eCW1 ([facility]) 24 HR mirabegron 50 MG Extended Release Oral Tablet [M yrbetriq] 12/16/2020 12:00:00 AM EDT eCW1 ([facility]) 24 HR mirabegron 50 MG Extended Release Oral Tablet [M yrbetriq] 12/16/2020 12:00:00 AM EDT eCW1 ([facility]) [place] 150 MCG 12/10/2020 12:00:00 AM EDT eCW1 ([facility]) [place] 150 MCG 12/10/2020 12:00:00 AM EDT eCW1 ([facility]) [place] 150 MCG 12/10/2020 12:00:00 AM EDT eCW1 ([facility]) Oxybutynin chloride 5 MG Oral Tablet 11/05/2020 12:00:00 AM EDT [facility] [place] 75 MCG 10/15/2020 12:00:00 AM EDT eCW1 ([facility]) [place] 75 MCG 10/15/2020 12:00:00 AM EDT eCW1 ([facility]) [place] 75 MCG 10/15/2020 12:00:00 AM EDT eCW1 ([facility]) Acetaminophen 325 MG / Hydrocodone Bitartrate 5 MG Ora l Tablet 10/08/2020 12:00:00 AM EDT eCW1 ([facility]) Acetaminophen 325 MG / Hydrocodone Bitartrate 5 MG Ora l Tablet 10/08/2020 12:00:00 AM EDT eCW1 ([facility]) 168 HR Buprenorphine 0.02 MG/HR Transdermal Patch [BuT rans] 05/06/2020 12:00:00 AM EST eCW1 (Formerly [facility]) 168 HR Buprenorphine 0.02 MG/HR Transdermal Patch [BuT rans] 05/06/2020 12:00:00 AM EST eCW1 (Formerly [facility]) 168 HR Buprenorphine 0.02 MG/HR Transdermal Patch [BuT rans] 05/06/2020 12:00:00 AM EST eCW1 (Formerly [facility]) 168 HR Buprenorphine 0.02 MG/HR Transdermal Patch [BuT rans] 05/06/2020 12:00:00 AM EST eCW1 (Formerly [facility]) 168 HR Buprenorphine 0.02 MG/HR Transdermal Patch [BuT rans] 05/06/2020 12:00:00 AM EST eCW1 (Formerly [facility]) 168 HR Buprenorphine 0.02 MG/HR Transdermal Patch [BuT rans] 05/06/2020 12:00:00 AM EST eCW1 (Formerly [facility]) 168 HR Buprenorphine 0.02 MG/HR Transdermal Patch [BuT rans] 05/06/2020 12:00:00 AM EST eCW1 (Formerly [facility]) 168 HR Buprenorphine 0.02 MG/HR Transdermal Patch [BuT rans] 05/06/2020 12:00:00 AM EST eCW1 (Formerly [facility]) BELBUCA 75 MCG FILM 04/01/2020 12:00:00 AM EST [facility] Belbuca 75 MCG 04/01/2020 12:00:00 AM EST eCW1 ([facility]) Belbuca 75 MCG 04/01/2020 12:00:00 AM EST eCW1 ([facility]) Belbuca 75 MCG 04/01/2020 12:00:00 AM EST eCW1 ([facility]) Belbuca 75 MCG 04/01/2020 12:00:00 AM EST eCW1 ([facility]) Diazepam 5 MG Oral Tablet 02/24/2020 12:00:00 AM EST [facility] Carisoprodol 350 MG Oral Tablet 02/21/2020 12:00:00 AM EST [facility] metaxalone 800 MG Oral Tablet 02/19/2020 12:00:00 AM EST [facility] Carisoprodol 350 MG Oral Tablet 02/19/2020 12:00:00 AM EST eCW1 ([facility]) Carisoprodol 350 MG Oral Tablet 02/19/2020 12:00:00 AM EST eCW1 ([facility]) Carisoprodol 350 MG Oral Tablet 02/19/2020 12:00:00 AM EST eCW1 ([facility]) Carisoprodol 350 MG Oral Tablet 02/19/2020 12:00:00 AM EST eCW1 ([facility]) Carisoprodol 350 MG Oral Tablet 02/19/2020 12:00:00 AM EST eCW1 ([facility]) Carisoprodol 350 MG Oral Tablet 02/19/2020 12:00:00 AM EST eCW1 ([facility]) Lurasidone Hydrochloride 40 MG Oral Tablet 01/30/2020 12:00:00 AM E [facility] Lurasidone Hydrochloride 40 MG Oral Tablet [Latuda] 01/30/20 20 12:00:00 AM EST [facility] Omeprazole 40 MG Delayed Release Oral Capsule 01/26/2020 12:00:00 A M EST [facility] NITROFURANTOIN, MACROCRYSTALS 25 MG / Ni trofurantoin, Monohydrate 75 MG Oral Capsule 01/26/2020 12:00:00 AM EST [facility] tizanidine 4 MG Oral Tablet 01/21/2020 12:00:00 AM EST [facility] metaxalone 800 MG Oral Tablet 01/16/2020 12:00:00 AM EST eCW1 ([facility]) metaxalone 800 MG Oral Tablet 01/16/2020 12:00:00 AM EST eCW1 ([facility]) metaxalone 800 MG Oral Tablet 01/16/2020 12:00:00 AM EST eCW1 ([facility]) metaxalone 800 MG Oral Tablet 01/16/2020 12:00:00 AM EST eCW1 ([facility]) metaxalone 800 MG Oral Tablet 01/16/2020 12:00:00 AM EST eCW1 ([facility]) metaxalone 800 MG Oral Tablet 01/16/2020 12:00:00 AM EST eCW1 ([facility]) metaxalone 800 MG Oral Tablet 01/16/2020 12:00:00 AM EST eCW1 ([facility]) metaxalone 800 MG Oral Tablet 01/16/2020 12:00:00 AM EST eCW1 ([facility]) metaxalone 800 MG Oral Tablet 01/16/2020 12:00:00 AM EST eCW1 ([facility]) metaxalone 800 MG Oral Tablet 01/16/2020 12:00:00 AM EST eCW1 ([facility]) 14 ACTUAT fluticasone furoate 0.1 MG/ACTUAT Dry Powder Inhaler 01/06/2020 12:00:00 AM EDT [facility] 14 ACTUAT fluticasone furoate 0.1 MG/ACTUAT Dry Powder Inhaler [Arnuity] 01/06/2020 12:00:00 AM EDT [facility] Promethazine Hydrochloride 25 MG Oral Tablet 12/15/2019 12:00:00 AM EDT [facility] Simethicone 180 MG Oral Capsule 12/13/2019 12:00:00 AM EDT [facility] Ondansetron 4 MG Disintegrating Oral Tablet 12/13/2019 12:00:00 AM EDT [facility] Baclofen 5 MG Oral Tablet 12/11/2019 12:00:00 AM EDT eCW1 ([facility]) Baclofen 5 MG Oral Tablet 12/11/2019 12:00:00 AM EDT eCW1 ([facility]) Baclofen 5 MG Oral Tablet 11/03/2019 12:00:00 AM EDT [facility] Acetaminophen 500 MG Oral Tablet 11/03/2019 12:00:00 AM EDT [facility] Furosemide 20 MG Oral Tablet 07/11/2019 12:00:00 AM EDT [facility] atorvastatin 40 MG Oral Tablet 07/11/2015 12:00:00 AM EDT [facility] Famotidine 20 MG Oral Tablet [facility] pantoprazole 40 MG Delayed Release Oral Tablet [facility] zaleplon 5 MG Oral Capsule A [facility] ([facility]) tramadol hydrochloride 50 MG Oral Tablet [facility] ([facility]) Tolnaftate 10 MG/ML Topical Cream [facility] ([facility]) Sulfamethoxazole 800 MG / Trimethoprim 160 MG Oral Tablet [facility] ([facility]) Simethicone 180 MG Oral Capsule [facility] ([facility]) Promethazine Hydrochloride 25 MG Oral Tablet [facility] ([facility]) pantoprazole 40 MG Delayed Release Oral Tablet [facility] ([facility]) Acetaminophen 325 MG / Oxycodone Hydrochloride 7.5 MG Oral Tablet [facility] ([facility]) Acetaminophen 325 MG / Oxycodone Hydrochloride 5 MG Oral Tablet [facility] ([facility]) Nystatin 100 UNT/MG Topical Powder [Nyamyc] [facility] ([facility]) NITROFURANTOIN, MACROCRYSTALS 25 MG / Ni trofurantoin, Monohydrate 75 MG Oral Capsule [facility] ([facility]) Metoprolol Tartrate 25 MG Oral Tablet [facility] ([facility]) metaxalone 800 MG Oral Tablet [facility] ([facility]) Meclizine Hydrochloride 25 MG Oral Tablet [facility] ([facility]) Lisinopril 10 MG Oral Tablet [facility] ([facility]) Lurasidone Hydrochloride 20 MG [facility] Acetaminophen 325 MG / Hydrocodone Bitartrate 5 MG Oral Tablet [facility] ([facility]) gabapentin 300 MG Oral Capsule [facility] ([facility]) Furosemide 20 MG Oral Tablet [facility] ([facility]) Fluarix Quad (PF) 60 mcg (15 mcg x 4)/0.5 mL IM syringe [facility] ([facility]) Diazepam 5 MG Oral Tablet AT [facility] ([facility]) Ciprofloxacin 500 MG Oral Tablet [facility] ([facility]) zaleplon 5 MG Oral Capsule A [facility] ([facility]) tramadol hydrochloride 50 MG Oral Tablet [facility] ([facility]) Sulfamethoxazole 800 MG / Trimethoprim 160 MG Oral Tablet [facility] ([facility]) Simethicone 180 MG Oral Capsule [facility] ([facility]) Promethazine Hydrochloride 25 MG Oral Tablet [facility] ([facility]) pantoprazole 40 MG Delayed Release Oral Tablet [facility] ([facility]) Acetaminophen 325 MG / Oxycodone Hydrochloride 7.5 MG Oral Tablet [facility] ([facility]) Acetaminophen 325 MG / Oxycodone Hydrochloride 5 MG Oral Tablet [facility] ([facility]) Ondansetron 4 MG Disintegrating Oral Tablet [facility] ([facility]) Nystatin 100 UNT/MG Topical Powder [Nyamyc] [facility] ([facility]) NITROFURANTOIN, MACROCRYSTALS 25 MG / Ni trofurantoin, Monohydrate 75 MG Oral Capsule [facility] ([facility]) Metoprolol Tartrate 25 MG Oral Tablet [facility] ([facility]) Meclizine Hydrochloride 25 MG Oral Tablet [facility] ([facility]) Lisinopril 10 MG Oral Tablet [facility] ([facility]) Acetaminophen 325 MG / Hydrocodone Bitartrate 5 MG Oral Tablet [facility] ([facility]) gabapentin 300 MG Oral Capsule [facility] ([facility]) Fluarix Quad [id number] (PF) 60 mcg (15 mcg x 4)/0.5 mL IM syringe [facility] ([facility]) Diazepam 5 MG Oral Tablet AT [facility] ([facility]) Ciprofloxacin 500 MG Oral Tablet [facility] ([facility]) Carisoprodol 350 MG Oral Tablet [facility] ([facility]) 168 HR Buprenorphine 0.02 MG/HR Transdermal Patch [facility] ([facility]) 168 HR Buprenorphine 0.01 MG/HR Transdermal Patch [facility] ([facility]) benztropine mesylate 1 MG Oral Tablet [facility] ([facility]) Belbuca 150 mcg buccal film DISSOLVE ONE FILM ON GUM ONCE DAILY [facility] ([facility]) Baclofen 5 MG Oral Tablet AT [facility] ([facility]) Acetaminophen 500 MG Oral Tablet [facility] ([facility]) zaleplon 5 MG Oral Capsule A [facility] ([facility]) tramadol hydrochloride 50 MG Oral Tablet [facility] ([facility]) Tolnaftate 10 MG/ML Topical Cream [facility] ([facility]) Sulfamethoxazole 800 MG / Trimethoprim 160 MG Oral Tablet [facility] ([facility]) Simethicone 180 MG Oral Capsule [facility] ([facility]) Promethazine Hydrochloride 25 MG Oral Tablet [facility] ([facility]) pantoprazole 40 MG Delayed Release Oral Tablet [facility] ([facility]) Acetaminophen 325 MG / Oxycodone Hydrochloride 7.5 MG Oral Tablet [facility] ([facility]) Acetaminophen 325 MG / Oxycodone Hydrochloride 5 MG Oral Tablet [facility] ([facility]) Nystatin 100 UNT/MG Topical Powder [Nyamyc] [facility] ([facility]) NITROFURANTOIN, MACROCRYSTALS 25 MG / Ni trofurantoin, Monohydrate 75 MG Oral Capsule [facility] ([facility]) Metoprolol Tartrate 25 MG Oral Tablet [facility] ([facility]) metaxalone 800 MG Oral Tablet [facility] ([facility]) Meclizine Hydrochloride 25 MG Oral Tablet [facility] ([facility]) Lisinopril 10 MG Oral Tablet [facility] ([facility]) Lurasidone Hydrochloride 20 MG Oral Tablet [Latuda] [facility] ([facility]) Acetaminophen 325 MG / Hydrocodone Bitartrate 5 MG Oral Tablet [facility] ([facility]) gabapentin 300 MG Oral Capsule [facility] ([facility]) Furosemide 20 MG Oral Tablet [facility] ([facility]) Fluarix Quad [id number] (PF) 60 mcg (15 mcg x 4)/0.5 mL IM syringe [facility] ([facility]) Diazepam 5 MG Oral Tablet [facility] ([facility]) Ciprofloxacin 500 MG Oral Tablet [facility] ([facility]) Carisoprodol 350 MG Oral Tablet [facility] ([facility]) 168 HR Buprenorphine 0.02 MG/HR Transdermal Patch [facility] ([facility]) 168 HR Buprenorphine 0.01 MG/HR Transdermal Patch [facility] ([facility]) benztropine mesylate 1 MG Oral Tablet [facility] ([facility]) Baclofen 5 MG Oral Tablet AT [facility] ([facility]) Acetaminophen 500 MG Oral Tablet [facility] ([facility]) zaleplon 5 MG Oral Capsule A [facility] ([facility]) Sulfamethoxazole 800 MG / Trimethoprim 160 MG Oral Tablet [facility] ([facility]) Simethicone 180 MG Oral Capsule [facility] ([facility]) Promethazine Hydrochloride 25 MG Oral Tablet [facility] ([facility]) pantoprazole 40 MG Delayed Release Oral Tablet [facility] ([facility]) Acetaminophen 325 MG / Oxycodone Hydrochloride 7.5 MG Oral Tablet [facility] ([facility]) Acetaminophen 325 MG / Oxycodone Hydrochloride 5 MG Oral Tablet [facility] ([facility]) Nystatin 100 UNT/MG Topical Powder [[facility]] [facility] ([facility]) NITROFURANTOIN, MACROCRYSTALS 25 MG / Ni trofurantoin, Monohydrate 75 MG Oral Capsule [facility] ([facility]) Metoprolol Tartrate 25 MG Oral Tablet [place] ([facility]) Meclizine Hydrochloride 25 MG Oral Tablet [place] ([facility]) Lisinopril 10 MG Oral Tablet [facility] ([facility]) gabapentin 300 MG Oral Capsule [facility] ([facility]) Fluarix Quad 9913-4530 (PF) 60 mcg (15 mcg x 4)/0.5 mL IM syringe [facility] ([facility]) Diazepam 5 MG Oral Tablet AT [facility]) benztropine mesylate 1 MG Oral Tablet [facility] ([facility]) Belbuca 75 mcg buccal film APPLY ONE TEODORO M TO GUMS ONCE DAILY FOR PAIN MAX DAILY DOSE ONE FILM [facility] ([facility]) Bel[place] 150 mcg buccal film DISSOLVE ONE FILM ON GUM ONCE DAILY [facility] ([facility]) Baclofen 5 MG Oral Tablet AT [facility]) Acetaminophen 500 MG Oral Tablet [facility] ([facility]) Carisoprodol 350 MG Oral Tablet [facility] ([facility]) 168 HR Buprenorphine 0.02 MG/HR Transdermal Patch [facility] ([facility]) 168 HR Buprenorphine 0.01 MG/HR Transdermal Patch [facility] ([facility]) benztropine mesylate 1 MG Oral Tablet [facility] ([facility]) Belbuca 150 mcg buccal film DISSOLVE ONE FILM ON GUM ONCE DAILY [facility] ([facility]) Baclofen 5 MG Oral Tablet AT [facility] ([facility]) Acetaminophen 500 MG Oral Tablet [facility] ([facility]) zaleplon 5 MG Oral Capsule A [facility] ([facility]) tramadol hydrochloride 50 MG Oral Tablet [facility] ([facility]) Tolnaftate 10 MG/ML Topical Cream [facility] ([facility]) Sulfamethoxazole 800 MG / Trimethoprim 160 MG Oral Tablet [facility] ([facility]) Simethicone 180 MG Oral Capsule [facility] ([facility]) Promethazine Hydrochloride 25 MG Oral Tablet [facility] ([facility]) pantoprazole 40 MG Delayed Release Oral Tablet [facility] ([facility]) Acetaminophen 325 MG / Oxycodone Hydrochloride 7.5 MG Oral Tablet [facility] ([facility]) Acetaminophen 325 MG / Oxycodone Hydrochloride 5 MG Oral Tablet [facility] ([facility]) Nystatin 100 UNT/MG Topical Powder [facility] NITROFURANTOIN, MACROCRYSTALS 25 MG / Ni trofurantoin, Monohydrate 75 MG Oral Capsule [facility] ([facility]) Metoprolol Tartrate 25 MG Oral Tablet [facility] ([facility]) Meclizine Hydrochloride 25 MG Oral Tablet [facility] ([facility]) Lisinopril 10 MG Oral Tablet [facility] ([facility]) Lurasidone Hydrochloride 20 MG Oral Tablet [Latuda] [facility] Acetaminophen 325 MG / Hydrocodone Bitartrate 5 MG Oral Tablet [facility] ([facility]) gabapentin 300 MG [facility] Furosemide 20 MG Oral Tablet [facility] ([facility]) Fluarix Quad [id number] (PF) 60 mcg (15 mcg x 4)/0.5 mL IM syringe [facility] ([facility]) Diazepam 5 MG Oral Tablet AT [facility] ([facility]) Ciprofloxacin 500 MG Oral Tablet [facility] ([facility]) Carisoprodol 350 MG Oral Tablet [facility] ([facility]) 168 HR Buprenorphine 0.02 MG/HR Transdermal Patch [facility] ([facility]) 168 HR Buprenorphine 0.01 MG/HR Transdermal Patch [facility] ([facility]) benztropine mesylate 1 MG Oral Tablet [facility] ([facility]) [place] 150 mcg buccal film DISSOLVE ONE FILM ON GUM ONCE DAILY [place] ([facility]) Baclofen 5 MG Oral Tablet AT [facility] ([facility]) Acetaminophen 500 MG Oral Tablet [place] ([facility]) zaleplon 5 MG Oral Capsule A [facility] ([facility]) Sulfamethoxazole 800 MG / Trimethoprim 160 MG Oral Tablet [facility] ([facility]) Sucralfate 1000 MG Oral Tablet [facility] ([facility]) Simethicone 180 MG Oral Capsule [facility] ([facility]) Promethazine Hydrochloride 25 MG Oral Tablet [facility] ([facility]) pantoprazole 40 MG Delayed Release Oral Tablet [facility] ([facility]) Acetaminophen 325 MG / Oxycodone Hydrochloride 7.5 MG Oral Tablet [facility] ([facility]) Acetaminophen 325 MG / Oxycodone Hydrochloride 5 MG Oral Tablet [facility] ([facility]) Nystatin 100 UNT/MG Topical Powder [Neamy] [facility] ([facility]) NITROFURANTOIN, MACROCRYSTALS 25 MG / Ni trofurantoin, Monohydrate 75 MG Oral Capsule [facility] ([facility]) Metoprolol Tartrate 25 MG Oral Tablet [facility] ([facility]) Meclizine Hydrochloride 25 MG Oral Tablet [facility] ([facility]) Lisinopril 10 MG Oral Tablet [facility] ([facility]) gabapentin 300 MG Oral Capsule [facility] ([facility]) Furosemide 20 MG Oral Tablet [facility] ([facility]) Fluarix Quad (PF) 60 mcg (15 mcg x 4)/0.5 mL IM syringe [facility] ([facility]) Diazepam 5 MG Oral Tablet AT [facility] ([facility]) benztropine mesylate 1 MG Oral Tablet [facility] ([facility]) [place] 75 mcg buccal film APPLY ONE TEODORO M TO GUMS ONCE DAILY FOR PAIN MAX DAILY DOSE ONE FILM [facility] ([facility]) [place] 150 mcg buccal film DISSOLVE ONE FILM ON GUM ONCE DAILY [facility] ([facility]) Baclofen 5 MG Oral Tablet AT [facility] ([facility]) Acetaminophen 500 MG Oral Tablet [facility] ([facility]) zaleplon 5 MG Oral Capsule [facility] ([facility]) Sulfamethoxazole 800 MG / Trimethoprim 160 MG Oral Tablet [facility] ([facility]) Sucralfate 1000 MG Oral Tablet [facility] ([facility]) Simethicone 180 MG Oral Capsule [facility] ([facility]) Promethazine Hydrochloride 25 MG Oral Tablet [facility] ([facility]) pantoprazole 40 MG Delayed Release Oral Tablet [facility] ([facility]) Acetaminophen 325 MG / Oxycodone Hydrochloride 7.5 MG Oral Tablet [facility] ([facility]) Acetaminophen 325 MG / Oxycodone Hydrochloride 5 MG Oral Tablet [facility] ([facility]) Nystatin 100 UNT/MG Topical Powder [Neamy] [facility] ([facility]) NITROFURANTOIN, MACROCRYSTALS 25 MG / Ni trofurantoin, Monohydrate 75 MG Oral Capsule [facility] ([facility]) Metoprolol Tartrate 25 MG Oral Tablet [facility] ([facility]) Meclizine Hydrochloride 25 MG Oral Tablet [facility] ([facility]) Lisinopril 10 MG Oral Tablet [facility] ([facility]) gabapentin 300 MG Oral Capsule [facility] ([facility]) Furosemide 20 MG Oral Tablet [facility] ([facility]) Fluarix Quad [id number] (PF) 60 mcg (15 mcg x 4)/0.5 mL IM syringe [facility] ([facility]) Diazepam 5 MG Oral Tablet AT [facility] ([facility]) benztropine mesylate 1 MG Oral Tablet [facility] ([facility]) [place] 75 mcg buccal film APPLY ONE TEODORO M TO GUMS ONCE DAILY FOR PAIN MAX DAILY DOSE ONE FILM [facility] ([facility]) [place] 150 mcg buccal film DISSOLVE ONE FILM ON GUM ONCE DAILY [facility] ([facility]) Baclofen 5 MG Oral Tablet AT [facility] ([facility]) Acetaminophen 500 MG Oral Tablet [facility] ([facility]) Metoprolol Tartrate 25 MG Oral Tablet [facility] ([facility]) Meclizine Hydrochloride 25 MG Oral Tablet [facility] ([facility]) Lisinopril 10 MG Oral Tablet [facility] ([facility]) gabapentin 300 MG Oral Capsule [facility] ([facility]) Furosemide 20 MG Oral Tablet [facility] ([facility]) Fluarix Quad [id number] (PF) 60 mcg (15 mcg x 4)/0.5 mL IM syringe [facility] ([facility] Diazepam 5 MG Oral Tablet AT [facility] ([facility]) benztropine mesylate 1 MG Oral Tablet [facility] ([facility]) [place] 150 mcg buccal film DISSOLVE ONE FILM ON GUM ONCE DAILY [facility] ([facility]) zaleplon 5 MG Oral Capsule [facility] ([facility]) Sulfamethoxazole 800 MG / Trimethoprim 160 MG Oral Tablet [facility] ([facility]) Sucralfate 1000 MG Oral Tablet [facility] ([facility]) Simethicone 180 MG Oral Capsule [facility] ([facility]) Promethazine Hydrochloride 25 MG Oral Tablet [facility] ([facility]) pantoprazole 40 MG Delayed Release Oral Tablet [facility] ([facility]) Acetaminophen 325 MG / Oxycodone Hydrochloride 7.5 MG Oral Tablet [facility] ([facility]) Acetaminophen 325 MG / Oxycodone Hydrochloride 5 MG Oral Tablet [facility] ([facility]) Nystatin 100 UNT/MG Topical Powder [[facility]] [facility] ([facility]) NITROFURANTOIN, MACROCRYSTALS 25 MG / Ni trofurantoin, Monohydrate 75 MG Oral Capsule [facility] ([facility]) Metoprolol Tartrate 25 MG Oral Tablet [facility] ([facility]) Meclizine Hydrochloride 25 MG Oral Tablet [facility] ([facility]) Lisinopril 10 MG Oral Tablet [facility] ([facility]) gabapentin 300 MG Oral Capsule [facility] ([facility]) Furosemide 20 MG Oral Tablet [facility] ([facility]) Fluarix Quad [id number] (PF) 60 mcg (15 mcg x 4)/0.5 mL IM syringe [facility] ([facility]) Diazepam 5 MG Oral Tablet AT [place] ([facility]) benztropine mesylate 1 MG Oral Tablet [facility] ([facility]) [place] 150 mcg buccal film DISSOLVE ONE FILM ON GUM ONCE DAILY [facility] ([facility]) zaleplon 5 MG Oral Capsule [facility] ([facility]) Sulfamethoxazole 800 MG / Trimethoprim 160 MG Oral Tablet [facility] ([facility]) Sucralfate 1000 MG Oral Tablet [facility] ([facility]) Simethicone 180 MG Oral Capsule [facility] ([facility]) Promethazine Hydrochloride 25 MG Oral Tablet [facility] ([facility]) pantoprazole 40 MG Delayed Release Oral Tablet [facility] ([facility]) Acetaminophen 325 MG / Oxycodone Hydrochloride 7.5 MG Oral Tablet [facility] ([facility]) Acetaminophen 325 MG / Oxycodone Hydrochloride 5 MG Oral Tablet [facility] ([facility]) Nystatin 100 UNT/MG Topical Powder [Nyamyc] [facility] ([facility]) NITROFURANTOIN, MACROCRYSTALS 25 MG / Ni trofurantoin, Monohydrate 75 MG Oral Capsule [facility] ([facility]) zaleplon 5 MG Oral Capsule A [facility] ([facility]) tizanidine 4 MG Oral Tablet [facility] ([facility]) Sulfamethoxazole 800 MG / Trimethoprim 160 MG Oral Tablet [facility] ([facility]) pantoprazole 40 MG Delayed Release Oral Tablet [facility] ([facility]) Acetaminophen 325 MG / Oxycodone Hydrochloride 7.5 MG Oral Tablet [facility] ([facility]) Acetaminophen 325 MG / Oxycodone Hydrochloride 5 MG Oral Tablet [facility] ([facility]) Nystatin 100 UNT/MG Topical Powder [Nyamyc] [facility] ([facility]) Metoprolol Tartrate 25 MG Oral Tablet [facility] ([facility]) Lisinopril 10 MG Oral Tablet [facility] ([facility]) gabapentin 300 MG Oral Capsule [facility] ([facility]) Fluarix Quad [id number] (PF) 60 mcg (15 mcg x 4)/0.5 mL IM syringe [facility] ([facility]) benztropine mesylate 1 MG Oral Tablet [facility] ([facility]) Belbuca 75 mcg buccal film APPLY ONE TEODORO M TO GUMS ONCE DAILY MAX DAILY DOSE ONE FILM [facility] ([facility]) Belbuca 150 mcg buccal film DISSOLVE ONE FILM ON GUM ONCE DAILY [facility] ([facility])
[2021-01-24] MEDS ORDERED: LIDOCAINE 1% SDV 30ML VIAL As Ordered ONE (07:12)
[2021-01-24] MEDS ORDERED: BUPIVACAINE HCL 0.25% 30ML VIAL As Ordered ONE ×2 (07:12→08:41)
[2021-01-24] MEDS ORDERED: ISOVUE-300 61% 50ML VIAL As Ordered ONE (07:12)
[2021-01-24] MEDS ORDERED: dexameTHASONE 10MG/1ML VIAL PRES.FREE (J1100 PER 1MG) As Ordered ONE ×3 (07:18→09:25)
[2021-01-24] MEDS ORDERED: ONDANSETRON 4MG/2ML VIAL As Ordered ONE (07:26)
[2021-01-24] MEDS ORDERED: fentaNYL 100 MCG/2 ML INJECTION (J3010) As Ordered ONE (07:26)
[2021-01-24] MEDS ORDERED: MIDAZOLAM INJ 2MG/2ML VIAL (J2250 PER 1MG) As Ordered ONE ×2 (07:26→09:27)
[2021-01-24] MEDS ORDERED: propofoL 200 MG/20 ML VIAL As Ordered ONE (07:26)
[2021-01-24] MEDS ORDERED: LIDOCAINE 2% 100MG/5ML SDV (FOR ANES.) As Ordered ONE (07:26)
[2021-01-24] MEDS ORDERED: BUPIVACAINE 0.75% 10 ML VIAL As Ordered ONE (09:20)
[2021-01-24] MEDS ORDERED: METOCLOPRAMIDE INJ 10MG/2ML VIAL (J2765 PER 1) As Ordered ONE (09:24)
[2021-01-24] MEDS ORDERED: dexameTHASONE 4 MG/ML 1ML VIAL (J1100 PER 1MG) As Ordered ONE (09:37)
--- NOTE | 2021-01-24 10:28 | REP ---
INDICATION: LUMBAR DISC DISORDER WITH RADICULOPATHY. COMPARISON: None. TECHNIQUE: Intraoperative fluoroscopic imaging using portable C-arm technique. FINDINGS: Images demonstrate bilateral lumbar facet joint injection. Total fluoroscopic time 59.1 seconds. IMPRESSION: Bilateral lumbar facet joint injections. <Electronically signed by Fletcher Serna > 01/24/21 1024
[2021-01-24 14:05] VITALS: BP 111/67
== END 2021-01-24 14:28 | disposition home or self-care (01) ==
LOC: M SDC 06:40
PROVIDERS: ATTEND Anesthesiology
DX: M51.16 Intervertebral disc disorders with radiculopathy, lumbar region (principal); G89.29 Other chronic pain; I10 Essential (primary) hypertension; I48.91 Unspecified atrial fibrillation; Z87.891 Personal history of nicotine dependence; F32.9 Major depressive disorder, single episode, unspecified; Z86.16 Personal history of COVID-19; E78.5 Hyperlipidemia, unspecified; G43.909 Migraine, unspecified, not intractable, without status migrainosus; M79.7 Fibromyalgia; E55.9 Vitamin D deficiency, unspecified; K21.9 Gastro-esophageal reflux disease without esophagitis
CPT/HCPCS: 64483; 76000; J1100; J2250; J2405; J2765; J3010; Q9967

== ENCOUNTER → 2021-02-24 | Outpatient (CLI) | payer OTHER ==
[~2021-02-24] MED LIST changes: -LR 1,000 ML IV ONE
[2021-02-24 17:13] LABS: HEMATOCRIT 42.6 % (36.0-47.0); HEMOGLOBIN 14.2 g/dl (12.0-15.5); MEAN CORPUSCULAR HEMOGLOBIN 30.3 pg (27.0-33.0); MEAN CORPUSCULAR HGB CONC 33.3 g/dl (32.0-36.5); MEAN CORPUSCULAR VOLUME 90.8 fl (80.0-96.0); PLATELET COUNT, AUTOMATED 197 10^3/uL (150-450); RED BLOOD COUNT 4.69 10^6/uL (4.00-5.40)
[2021-02-24 17:37] LABS: ALBUMIN 3.3 GM/DL (3.2-5.2); BILIRUBIN,TOTAL 0.4 MG/DL (0.2-1.0); CREATININE FOR GFR 1.13 MG/DL (0.55-1.30); GLOMERULAR FILTRATION RATE 53.2 (>51); POTASSIUM SERUM 4.2 MEQ/L (3.5-5.1); TOTAL PROTEIN 6.5 GM/DL (6.4-8.2)
== END ==
LOC: M PLALAB 14:17
PROVIDERS: ATTEND Urology
DX: N32.81 Overactive bladder (principal)

== ENCOUNTER → 2021-02-28 | Outpatient (CLI) | payer OTHER ==
[~2021-02-28] MED LIST changes: +BUPR10DI3 TOP; +ELIQ5TAB; +ISOVUE-370 76% 100ML VIAL As Ordered ONE; +KETO10TAB PO; -LATU40TA PO; +LATU40TA2 PO; +METO50TA7; +MYRB50TA PO; -OMEP-221 PO; +OMEP40CA5 PO; +TIZA10TA PO; -TIZA4TAB4 PO
== END ==
LOC: M RAD 09:41
PROVIDERS: ATTEND Urology
DX: R31.0 Gross hematuria (principal)
CPT/HCPCS: 74178; Q9967

== ENCOUNTER → 2021-03-03 | Outpatient (CLI) | payer OTHER ==
[~2021-03-03] MED LIST changes: -BUPR10DI3 TOP; -ELIQ5TAB; -ISOVUE-370 76% 100ML VIAL As Ordered ONE; -KETO10TAB PO; +LATU40TA PO; -LATU40TA2 PO; -METO50TA7; -MYRB50TA PO; +OMEP-221 PO; -OMEP40CA5 PO; -TIZA10TA PO; +TIZA4TAB4 PO
== END ==
LOC: M PAIN 09:30
PROVIDERS: ATTEND Anesthesiology
DX: M79.18 Myalgia, other site (principal); Z79.891 Long term (current) use of opiate analgesic; M79.7 Fibromyalgia; G43.909 Migraine, unspecified, not intractable, without status migrainosus; N39.46 Mixed incontinence; F32.A Depression, unspecified; E78.5 Hyperlipidemia, unspecified; E55.9 Vitamin D deficiency, unspecified; I48.91 Unspecified atrial fibrillation; K21.9 Gastro-esophageal reflux disease without esophagitis; G89.4 Chronic pain syndrome; I11.0 Hypertensive heart disease with heart failure; I50.9 Heart failure, unspecified; Z87.891 Personal history of nicotine dependence; Z79.01 Long term (current) use of anticoagulants; Z79.899 Other long term (current) drug therapy; Z88.2 Allergy status to sulfonamides; Z88.8 Allergy status to other drugs, medicaments and biological substances; Z91.048 Other nonmedicinal substance allergy status

== ENCOUNTER → 2021-03-30 | Outpatient (CLI) | payer OTHER ==
[~2021-03-30] MED LIST changes: +BUPR10DI3 TOP; +MYRB50TA PO; -OMEP-221 PO; +OMEP40CA5 PO; +TIZA10TA PO; -TIZA4TAB4 PO
== END ==
LOC: M LABSMTC 11:17
PROVIDERS: ATTEND Anesthesiology
DX: Z01.818 Encounter for other preprocedural examination (principal); Z11.52 Encounter for screening for COVID-19

== ENCOUNTER 2021-04-04 06:05 | Day surgery (SDC) | payer OTHER ==
[~2021-04-04] VITALS: Ht 157.5 cm; Wt 118.9 kg
[~2021-04-04 06:05] MED LIST changes: +CIPROFLOXACIN 400 MG in IV 1 EA IV ONE; +LIDOCAINE 1% MDV 20ML VIAL SQ PRN; +LR 1,000 ML IV ONE
[2021-04-04] MEDS ORDERED: BOTOX THERAPEUTIC 100 UNIT VIAL (J0585 PER 1 UNIT) As Ordered ONE (07:12)
[2021-04-04] MEDS ORDERED: propofoL 200 MG/20 ML VIAL As Ordered ONE ×2 (07:14→08:06)
[2021-04-04] MEDS ORDERED: MIDAZOLAM INJ 2MG/2ML VIAL (J2250 PER 1MG) As Ordered ONE (07:14)
[2021-04-04] MEDS ORDERED: fentaNYL 100 MCG/2 ML INJECTION (J3010) As Ordered ONE (07:14)
[2021-04-04] MEDS ORDERED: dexameTHASONE 4 MG/ML 1ML VIAL (J1100 PER 1MG) As Ordered ONE ×2 (07:14→07:36)
[2021-04-04] MEDS ORDERED: LIDOCAINE 2% 100MG/5ML SDV (FOR ANES.) As Ordered ONE (07:14)
[2021-04-04] MEDS ORDERED: ONDANSETRON 4MG/2ML VIAL As Ordered ONE (07:14)
[2021-04-04] MEDS ORDERED: MACR100C43 PO (07:56)
[2021-04-04] MEDS ORDERED: ONDANSETRON 4MG/2ML VIAL IV PRN (08:25)
[2021-04-04] MEDS ORDERED: fentaNYL 100 MCG/2 ML INJECTION (J3010) IV PRN (08:25)
[2021-04-04] MEDS ORDERED: LR 1,000 ML IV SCH (08:25)
[2021-04-04] MEDS ORDERED: oxyCODONE 5MG TAB PO PRN (08:25)
[2021-04-04 08:40] VITALS: BP 128/73
== END 2021-04-04 12:20 | disposition home or self-care (01) ==
LOC: M SDC 06:05
PROVIDERS: ATTEND Urology
DX: I48.91 Unspecified atrial fibrillation (principal); I11.0 Hypertensive heart disease with heart failure; I50.9 Heart failure, unspecified; Z86.718 Personal history of other venous thrombosis and embolism; M79.7 Fibromyalgia; N32.81 Overactive bladder; N39.41 Urge incontinence; F32.A Depression, unspecified; F41.9 Anxiety disorder, unspecified; Z98.51 Tubal ligation status; Z87.891 Personal history of nicotine dependence; Z90.711 Acquired absence of uterus with remaining cervical stump; Z88.1 Allergy status to other antibiotic agents; Z88.8 Allergy status to other drugs, medicaments and biological substances; Z79.899 Other long term (current) drug therapy
CPT/HCPCS: 52287; J0585; J0744; J1100; J2250; J2405; J3010

== ENCOUNTER 2021-04-09 23:00 | Emergency (ER) | payer OTHER ==
[~2021-04-09] VITALS: Ht 157.5 cm; Wt 118.2 kg
[~2021-04-09 23:00] MED LIST changes: -CIPROFLOXACIN 400 MG in IV 1 EA IV ONE; -LATU40TA PO; +LATU40TA2 PO; -LIDOCAINE 1% MDV 20ML VIAL SQ PRN; -LR 1,000 ML IV ONE
[2021-04-09] MEDS ORDERED: METO50TA7 (23:14)
[2021-04-09] MEDS ORDERED: ELIQ5TAB (23:14)
[2021-04-10 12:05] VITALS: BP 158/86
[2021-04-10] MEDS ORDERED: KETO10TAB PO (12:05)
== END 2021-04-10 12:27 | disposition home or self-care (01) ==
LOC: M ED 23:00
DX: R10.9 Unspecified abdominal pain (principal); I25.2 Old myocardial infarction; I10 Essential (primary) hypertension; J44.9 Chronic obstructive pulmonary disease, unspecified; K76.0 Fatty (change of) liver, not elsewhere classified; Z79.01 Long term (current) use of anticoagulants; Z79.899 Other long term (current) drug therapy; Z88.1 Allergy status to other antibiotic agents; Z88.2 Allergy status to sulfonamides; Z88.8 Allergy status to other drugs, medicaments and biological substances
CPT/HCPCS: 74176; 80048; 81001; 83605; 85025; 87086; 87798; 96372; 99284; J1885; J2270

== ENCOUNTER 2021-05-01 00:26 | Emergency (ER) | payer OTHER ==
[~2021-05-01] VITALS: Ht 157.5 cm; Wt 119.8 kg
[~2021-05-01 00:26] MED LIST changes: +ELIQ5TAB; +KETO10TAB PO; +METO50TA7
[2021-05-01 00:27] VITALS: BP 141/85
[2021-05-01] MEDS ORDERED: KETOROLAC TROMETHAMINE 10 MG TAB PO ONE (02:25)
[2021-05-01] MEDS ORDERED: KETO10TAB PO (02:34)
== END 2021-05-01 02:53 | disposition home or self-care (01) ==
LOC: M ED 00:26
DX: M79.602 Pain in left arm (principal); Z79.01 Long term (current) use of anticoagulants; Z79.899 Other long term (current) drug therapy; Z88.1 Allergy status to other antibiotic agents; Z88.2 Allergy status to sulfonamides; Z88.8 Allergy status to other drugs, medicaments and biological substances

== ENCOUNTER 2021-06-04 11:10 | Emergency (ER) | payer OTHER ==
[~2021-06-04] VITALS: Ht 157.5 cm; Wt 118.8 kg
[2021-06-04 14:15] VITALS: BP 134/84
[2021-06-04] MEDS ORDERED: METH-1164 PO (14:19)
[2021-06-04] MEDS ORDERED: methocarbamoL 500 MG TAB PO ONE (14:25)
== END 2021-06-04 14:41 | disposition home or self-care (01) ==
LOC: M ED 11:10
DX: S39.012A Strain of muscle, fascia and tendon of lower back, initial encounter (principal); W19.XXXA Unspecified fall, initial encounter; Y92.9 Unspecified place or not applicable; Y93.9 Activity, unspecified; Y99.9 Unspecified external cause status; I10 Essential (primary) hypertension; Z86.718 Personal history of other venous thrombosis and embolism; Z88.1 Allergy status to other antibiotic agents; Z88.2 Allergy status to sulfonamides; Z88.8 Allergy status to other drugs, medicaments and biological substances; Z79.899 Other long term (current) drug therapy; Z79.01 Long term (current) use of anticoagulants

== ENCOUNTER 2021-06-10 22:46 | Emergency (ER) | payer OTHER ==
[~2021-06-10] VITALS: Ht 157.5 cm; Wt 117.6 kg
[~2021-06-10 22:46] MED LIST changes: -ELIQ5TAB; +METH-1164 PO
[2021-06-10 22:58] VITALS: BP 136/86
[2021-06-11] MEDS ORDERED: ACETAMINOPHEN TAB 650MG DOSE (2X325MG) PO ONE (02:25)
== END 2021-06-11 02:32 | disposition left against medical advice (07) ==
LOC: M ED 22:46
DX: Z53.21 Procedure and treatment not carried out due to patient leaving prior to being seen by health care provider (principal)

== ENCOUNTER 2021-06-12 19:34 | Observation (INO) | payer OTHER ==
[~2021-06-12] VITALS: Ht 157.5 cm; Wt 115.8 kg
[2021-06-12] MEDS ORDERED: ACETAMINOPHEN 325 MG TAB PO ONE (20:30)
[2021-06-12] MEDS ORDERED: NS 500 ML IV ONE (20:40)
[2021-06-12] MEDS ORDERED: ONDANSETRON 4MG/2ML VIAL IV ONE (20:40)
[2021-06-12] MEDS ORDERED: IPRATROPIUM 0.5MG/ALBUTEROL 2.5MG INH SOL UD 3ML (DUONEB) NEB ONE (20:40)
[2021-06-12 20:56] LABS: RSV AMPLIFICATION NEGATIVE (NEGATIVE)
[2021-06-12 21:37] LABS: BASO % 0.3 % (0.0-1.0); EOS % 0.5 % (0.0-3.0); HEMATOCRIT 42.9 % (36.0-47.0); HEMOGLOBIN 14.5 g/dl (12.0-15.5); LYMPH # 1.1 10^3/uL (1.5-5.0); LYMPH % 28.6 % (24.0-44.0); MEAN CORPUSCULAR HEMOGLOBIN 29.8 pg (27.0-33.0); MEAN CORPUSCULAR HGB CONC 33.8 g/dl (32.0-36.5); MEAN CORPUSCULAR VOLUME 88.1 fl (80.0-96.0); MONO # 0.4 10^3/uL (0.0-0.8); MONO % 11.7 % (2.0-8.0); NEUTROPHILS # 2.2 10^3/uL (1.5-8.5); NEUTROPHILS % 58.6 % (36.0-66.0); PLATELET COUNT, AUTOMATED 182 10^3/uL (150-450); RED BLOOD COUNT 4.87 10^6/uL (4.00-5.40); WHITE BLOOD COUNT 3.7 10^3/uL (4.0-10.0)
[2021-06-12 21:50] LABS: CALCIUM LEVEL 8.4 MG/DL (8.5-10.1); CREATININE FOR GFR 1.1 MG/DL (0.55-1.30); GLOMERULAR FILTRATION RATE 54.7 (>51); POTASSIUM SERUM 3.6 MEQ/L (3.5-5.1)
[2021-06-12] MEDS ORDERED: methylPREDNISolone 125MG 2ML VIAL IV ONE (22:30)
[2021-06-12] MEDS ORDERED: MORPHINE 2 MG/ML 1ML VIAL IV ONE (23:00)
[2021-06-13] MEDS ORDERED: SUCR1TAB56 PO (00:21)
[2021-06-13] MEDS ORDERED: [UNRECOGNIZED DRUG - CODE] TOP (00:21)
[2021-06-13] MEDS ORDERED: METH-1164 PO (00:21)
[2021-06-13] MEDS ORDERED: METO100T5 PO (00:21)
[2021-06-13] MEDS ORDERED: HOME MED LIST COMPLETE! XX SCH (00:25)
[2021-06-13] MEDS ORDERED: NS 1,000 ML IV SCH (00:25)
[2021-06-13] MEDS ORDERED: METOPROLOL TARTRATE 100MG TAB PO ONE (00:25)
[2021-06-13] MEDS ORDERED: ACETAMINOPHEN TAB 650MG DOSE (2X325MG) PO PRN (00:30)
[2021-06-13] MEDS ORDERED: MOM 30ML SUSPENSION UDC PO PRN (00:30)
[2021-06-13 00:35] VITALS: BP 132/84
[2021-06-13] MEDS ORDERED: IPRATROPIUM 0.5MG/ALBUTEROL 2.5MG INH SOL UD 3ML (DUONEB) NEB PRN (00:35)
[2021-06-13] MEDS ORDERED: AZITHROMYCIN 250MG TABLET PO ONE (00:35)
[2021-06-13 01:34] VITALS: BP 141/76
[2021-06-13] MEDS: ONDANSETRON 4MG/2ML VIAL IV PRN ×3 (03:01→18:59)
[2021-06-13] MEDS: guaiFENesin SYRUP 200MG 10ML UDC PO PRN ×3 (03:02→21:31)
[2021-06-13 06:00] VITALS: BP 136/70
[2021-06-13 06:48] LABS: HEMOGLOBIN 13.8 g/dl (12.0-15.5); MEAN CORPUSCULAR HEMOGLOBIN 29.7 pg (27.0-33.0); MEAN CORPUSCULAR HGB CONC 32.9 g/dl (32.0-36.5); MEAN CORPUSCULAR VOLUME 90.5 fl (80.0-96.0); PLATELET COUNT, AUTOMATED 146 10^3/uL (150-450); RED BLOOD COUNT 4.64 10^6/uL (4.00-5.40); WHITE BLOOD COUNT 2.2 10^3/uL (4.0-10.0)
[2021-06-13 07:13] LABS: BLOOD UREA NITROGEN 10 MG/DL (7-18); CALCIUM LEVEL 8.2 MG/DL (8.5-10.1); CARBON DIOXIDE LEVEL 25 MEQ/L (21-32); CHLORIDE LEVEL 109 MEQ/L (98-107); CREATININE FOR GFR 0.86 MG/DL (0.55-1.30); GLOMERULAR FILTRATION RATE > 60.0 (>51); GLUCOSE, FASTING 133 MG/DL (70-100); MAGNESIUM LEVEL 2.3 MG/DL (1.8-2.4); SODIUM LEVEL 140 MEQ/L (136-145)
[2021-06-13] MEDS: OMEPRAZOLE 20MG CAP PO SCH (08:38)
[2021-06-13] MEDS: predniSONE 20 MG TAB PO SCH (08:39)
[2021-06-13] MEDS: APIXABAN 5 MG TAB (ELIQUIS) PO SCH ×2 (08:41→20:47)
[2021-06-13] MEDS: METOPROLOL TARTRATE 100MG TAB PO SCH ×2 (08:41→20:47)
[2021-06-13] MEDS: SUCRALFATE 1 GM TAB PO SCH ×2 (08:41→20:46)
[2021-06-13] MEDS ORDERED: FLUBLOK(EGG FREE)(QUAD)INFLUENZA VACC 0.5ML SYRINGE 18YRS & OLDER IM ONE (09:00)
[2021-06-13 14:00] VITALS: BP 108/64
[2021-06-13 19:15] VITALS: BP 122/64
[2021-06-13] MEDS ORDERED: ONDANSETRON 4MG ORAL DISINTEGRATING TAB PO PRN (22:55)
[2021-06-14] MEDS ORDERED: DEXTROMETHORPHAN 60MG/10ML SUSP 90ML BTL(DELSYM) PO PRN
[2021-06-14 04:50] VITALS: BP 114/63
[2021-06-14 06:47] LABS: HEMATOCRIT 38.7 % (36.0-47.0); HEMOGLOBIN 12.9 g/dl (12.0-15.5); LYMPH # 1.9 10^3/uL (1.5-5.0); LYMPH % 34.1 % (24.0-44.0); MEAN CORPUSCULAR HEMOGLOBIN 29.7 pg (27.0-33.0); MEAN CORPUSCULAR HGB CONC 33.3 g/dl (32.0-36.5); MONO # 0.5 10^3/uL (0.0-0.8); MONO % 8.1 % (2.0-8.0); NEUTROPHILS # 3.2 10^3/uL (1.5-8.5); NEUTROPHILS % 57.6 % (36.0-66.0); PLATELET COUNT, AUTOMATED 178 10^3/uL (150-450); RED BLOOD COUNT 4.35 10^6/uL (4.00-5.40); WHITE BLOOD COUNT 5.6 10^3/uL (4.0-10.0)
[2021-06-14 07:36] LABS: ALBUMIN 2.7 GM/DL (3.2-5.2); ALT/SGPT 26 U/L (12-78); BILIRUBIN,TOTAL 0.3 MG/DL (0.2-1.0); BLOOD UREA NITROGEN 18 MG/DL (7-18); CALCIUM LEVEL 8.4 MG/DL (8.5-10.1); CARBON DIOXIDE LEVEL 28 MEQ/L (21-32); CHLORIDE LEVEL 110 MEQ/L (98-107); CREATININE FOR GFR 0.97 MG/DL (0.55-1.30); GLOMERULAR FILTRATION RATE > 60.0 (>51); GLUCOSE, FASTING 86 MG/DL (70-100); POTASSIUM SERUM 3.7 MEQ/L (3.5-5.1); SODIUM LEVEL 142 MEQ/L (136-145); TOTAL PROTEIN 5.9 GM/DL (6.4-8.2)
[2021-06-14] MEDS ORDERED: AZITHROMYCIN 250MG TABLET PO SCH (09:00)
[2021-06-14] MEDS: guaiFENesin SYRUP 200MG 10ML UDC PO PRN (09:04)
[2021-06-14] MEDS: APIXABAN 5 MG TAB (ELIQUIS) PO SCH (09:05)
[2021-06-14] MEDS: OMEPRAZOLE 20MG CAP PO SCH (09:05)
[2021-06-14] MEDS: SUCRALFATE 1 GM TAB PO SCH (09:05)
[2021-06-14] MEDS: predniSONE 20 MG TAB PO SCH (09:05)
[2021-06-14 09:16] VITALS: BP 114/63
[2021-06-14] MEDS: METOPROLOL TARTRATE 100MG TAB PO SCH (09:16)
[2021-06-14] MEDS ORDERED: PRED10TA2 PO (10:12)
[2021-06-14] MEDS ORDERED: MUCI1TAB16 PO (10:12)
[2021-06-14] MEDS ORDERED: AZIT-12 PO (10:12)
[2021-06-14] MEDS ORDERED: LOPERAMIDE 2 MG CAPLET PO PRN (11:30)
[2021-06-14] MEDS ORDERED: LOPE1CAP5 PO (12:05)
[2021-06-14] MEDS ORDERED: LOPE2CAP PO (12:44)
== END 2021-06-14 14:39 | disposition home or self-care (01) ==
LOC: M ED 19:34 → M ED INP 23:49 → ENRESERV 06-13 00:14 → M MS5PR 06-13 00:35 → M MSPAV 06-13 01:18
PROVIDERS: ADMIT Family Medicine; ATTEND Internal Medicine
DX: R05.9 Cough, unspecified (principal); R06.02 Shortness of breath; R55 Syncope and collapse; B97.81 Human metapneumovirus as the cause of diseases classified elsewhere; A08.11 Acute gastroenteropathy due to Norwalk agent; R00.0 Tachycardia, unspecified; J32.9 Chronic sinusitis, unspecified; I48.91 Unspecified atrial fibrillation; M79.7 Fibromyalgia; F32.A Depression, unspecified; F41.9 Anxiety disorder, unspecified; N39.3 Stress incontinence (female) (male); K21.9 Gastro-esophageal reflux disease without esophagitis; Z87.891 Personal history of nicotine dependence; Z79.899 Other long term (current) drug therapy; Z79.01 Long term (current) use of anticoagulants; Z79.2 Long term (current) use of antibiotics; Z79.52 Long term (current) use of systemic steroids; Z88.8 Allergy status to other drugs, medicaments and biological substances; Z88.1 Allergy status to other antibiotic agents; Z88.5 Allergy status to narcotic agent; Z88.0 Allergy status to penicillin; Z88.2 Allergy status to sulfonamides
CPT/HCPCS: 36415; 70450; 71046; 80048; 80053; 83605; 83735; 85025; 85027; 87040; 87505; 87631; 87641; 87798; 87880; 90471; 90682; 93005; 94640; 96361; 96374; 96375; 96376; 99284; J2270; J2405; J2930; J7512

== ENCOUNTER 2021-07-21 04:10 | Emergency (ER) | payer OTHER ==
[~2021-07-21] VITALS: Ht 157.5 cm; Wt 118.2 kg
[~2021-07-21 04:10] MED LIST changes: +FLEC50HA PO; +LOPE1CAP5 PO; +LOPE2CAP PO; +METO100T5 PO; +MUCI1TAB16 PO; +NALO4SPR; +NITR0.4S14; +PRED10TA2 PO; +[UNRECOGNIZED DRUG - CODE] TOP
[2021-07-21] MEDS ORDERED: ACETAMINOPHEN 500 MG TAB PO ONE (07:35)
[2021-07-21 09:02] VITALS: BP 122/84
== END 2021-07-21 09:04 | disposition home or self-care (01) ==
LOC: M ED 04:10
DX: M79.662 Pain in left lower leg (principal); W01.0XXA Fall on same level from slipping, tripping and stumbling without subsequent striking against object, initial encounter; Y92.009 Unspecified place in unspecified non-institutional (private) residence as the place of occurrence of the external cause; Y93.9 Activity, unspecified; Y99.9 Unspecified external cause status; M16.12 Unilateral primary osteoarthritis, left hip; I48.91 Unspecified atrial fibrillation; I11.0 Hypertensive heart disease with heart failure; I50.9 Heart failure, unspecified; Z86.718 Personal history of other venous thrombosis and embolism; E78.5 Hyperlipidemia, unspecified

== ENCOUNTER → 2021-08-22 | Outpatient (CLI) | payer OTHER | LOC: M PAIN 10:30 | PROVIDERS: ATTEND Anesthesiology | DX: M25.552 Pain in left hip (principal); M79.7 Fibromyalgia; G43.909 Migraine, unspecified, not intractable, without status migrainosus; F32.A Depression, unspecified; E78.5 Hyperlipidemia, unspecified; E55.9 Vitamin D deficiency, unspecified; I48.91 Unspecified atrial fibrillation; K21.9 Gastro-esophageal reflux disease without esophagitis; G89.4 Chronic pain syndrome; I10 Essential (primary) hypertension; R26.81 Unsteadiness on feet; M54.50 Low back pain, unspecified; J44.9 Chronic obstructive pulmonary disease, unspecified; Z86.16 Personal history of COVID-19; N39.3 Stress incontinence (female) (male); Z87.891 Personal history of nicotine dependence; Z79.899 Other long term (current) drug therapy ==

== ENCOUNTER 2021-12-15 15:10 | Inpatient (IN) | payer OTHER ==
[~2021-12-15] VITALS: Ht 157.5 cm; Wt 111.2 kg
[2021-12-15] MEDS: NICOTINE 21MG/24HR 1 EA TRANSDERMAL TD SCH (09:00)
[~2021-12-15 15:10] MED LIST changes: +ALBU6.7H6 INH; -NITR0.4S14; -PROV108A INH
[2021-12-15 16:36] LABS: HEMATOCRIT 41.4 % (36.0-47.0); HEMOGLOBIN 13.6 g/dl (12.0-15.5); MEAN CORPUSCULAR HEMOGLOBIN 30.4 pg (27.0-33.0); MEAN CORPUSCULAR HGB CONC 32.9 g/dl (32.0-36.5); MEAN CORPUSCULAR VOLUME 92.6 fl (80.0-96.0); PLATELET COUNT, AUTOMATED 212 10^3/uL (150-450); RED BLOOD COUNT 4.47 10^6/uL (4.00-5.40)
[2021-12-15 17:01] LABS: AMPHETAMINES LEVEL URINE NEGATIVE (NEGATIVE); BARBITURATES URINE NEGATIVE (NEGATIVE); BENZODIAZEPINES URINE NEGATIVE (NEGATIVE); CANNABINOIDS URINE NEGATIVE (NEGATIVE); COCAINE METABOLITE URINE NEGATIVE (NEGATIVE); METHADONE URINE NEGATIVE (NEGATIVE); OPIATES URINE NEGATIVE (NEGATIVE); PHENCYCLIDINE URINE NEGATIVE (NEGATIVE)
[2021-12-15 17:09] LABS: ACETAMINOPHEN LEVEL < 2.0 UG/ML (10.0-30.0); ALBUMIN 3.5 GM/DL (3.2-5.2); ALT/SGPT 29 U/L (12-78); BILIRUBIN,DIRECT 0.1 MG/DL (0.0-0.2); BILIRUBIN,TOTAL 0.4 MG/DL (0.2-1.0); BLOOD UREA NITROGEN 15 MG/DL (7-18); CALCIUM LEVEL 9.1 MG/DL (8.5-10.1); CARBON DIOXIDE LEVEL 30 MEQ/L (21-32); CHLORIDE LEVEL 108 MEQ/L (98-107); CREATININE FOR GFR 1.01 MG/DL (0.55-1.30); ETHYL ALCOHOL (ETHANOL) 0.005 % (0.000-0.010); GLOMERULAR FILTRATION RATE > 60.0 (>51); GLUCOSE, FASTING 82 MG/DL (70-100); POTASSIUM SERUM 4.1 MEQ/L (3.5-5.1); SALICYLATE LEVEL < 1.7 MG/DL (5.0-30.0); SODIUM LEVEL 141 MEQ/L (136-145); TOTAL PROTEIN 6.5 GM/DL (6.4-8.2)
[2021-12-15 17:45] LABS: RSV AMPLIFICATION NEGATIVE (NEGATIVE)
[2021-12-15] MEDS ORDERED: MAALOX 30 ML SUSP *UDC PO PRN (18:30)
[2021-12-15] MEDS ORDERED: traZODone 50 MG TAB PO PRN (18:30)
[2021-12-15] MEDS ORDERED: MOM 30ML SUSPENSION UDC PO PRN (18:30)
[2021-12-15] MEDS ORDERED: VENTAER INH (19:35)
[2021-12-15] MEDS ORDERED: HOME MED LIST COMPLETE! XX SCH (19:40)
[2021-12-15] MEDS: ACETAMINOPHEN TAB 650MG DOSE (2X325MG) PO PRN (21:02)
[2021-12-15 21:21] VITALS: BP 141/89
[2021-12-16 06:14] VITALS: BP 133/75
[2021-12-16] MEDS: NICOTINE 21MG/24HR 1 EA TRANSDERMAL TD SCH (08:12)
[2021-12-16] MEDS: ACETAMINOPHEN TAB 650MG DOSE (2X325MG) PO PRN (08:15)
[2021-12-16] MEDS ORDERED: ALBUTEROL 90 MCG/ACT 8GM HFA INHALER INH PRN (10:00)
[2021-12-16] MEDS ORDERED: NITROGLYCERIN 0.4 MG SUBL TABLET SL PRN (10:00)
[2021-12-16] MEDS: APIXABAN 5 MG TAB (ELIQUIS) PO SCH ×2 (11:16→20:11)
[2021-12-16] MEDS: OMEPRAZOLE 20MG CAP PO SCH (11:16)
[2021-12-16] MEDS: METOPROLOL TARTRATE 100MG TAB PO SCH ×2 (11:22→20:11)
[2021-12-16] MEDS ORDERED: diphenhydrAMINE CREAM 30GM TOP PRN (11:40)
[2021-12-16] MEDS ORDERED: FLUBLOK(EGG FREE)(QUAD)INFLUENZA VACC 0.5ML SYRINGE 18YRS & OLDER IM.IMMUN ONE (12:00)
[2021-12-16] MEDS ORDERED: HOME MED LIST COMPLETE! XX SCH (12:50)
[2021-12-16] MEDS: SUCRALFATE 1 GM TAB PO SCH (17:02)
[2021-12-16] MEDS: LURASIDONE 20 MG TAB (LATUDA) PO SCH (17:53)
[2021-12-16 18:15] VITALS: BP 113/55
[2021-12-16] MEDS ORDERED: BUPRENORPHINE/NALOXONE 8-2MG SUBLINGUAL TABLET(SUBOXONE) SL SCH (21:00)
[2021-12-17] MEDS: ACETAMINOPHEN TAB 650MG DOSE (2X325MG) PO PRN (05:26)
[2021-12-17] MEDS: SUCRALFATE 1 GM TAB PO SCH ×2 (06:30→17:54)
[2021-12-17 06:54] VITALS: BP 124/76
[2021-12-17] MEDS: NICOTINE 21MG/24HR 1 EA TRANSDERMAL TD SCH (08:06)
[2021-12-17] MEDS: OMEPRAZOLE 20MG CAP PO SCH (08:08)
[2021-12-17] MEDS: APIXABAN 5 MG TAB (ELIQUIS) PO SCH ×2 (08:08→20:21)
[2021-12-17] MEDS: METOPROLOL TARTRATE 100MG TAB PO SCH ×2 (08:13→20:21)
[2021-12-17] MEDS: LURASIDONE 20 MG TAB (LATUDA) PO SCH (17:54)
[2021-12-17 18:36] VITALS: BP 138/67
[2021-12-17] MEDS: diphenhydrAMINE 50MG CAP PO PRN (20:21)
[2021-12-18] MEDS: ACETAMINOPHEN TAB 650MG DOSE (2X325MG) PO PRN (06:03)
[2021-12-18 06:36] VITALS: BP 133/85
[2021-12-18] MEDS: SUCRALFATE 1 GM TAB PO SCH ×2 (07:05→17:05)
[2021-12-18] MEDS: APIXABAN 5 MG TAB (ELIQUIS) PO SCH ×2 (08:24→21:22)
[2021-12-18] MEDS: METOPROLOL TARTRATE 100MG TAB PO SCH ×2 (08:24→21:22)
[2021-12-18] MEDS: OMEPRAZOLE 20MG CAP PO SCH (08:24)
[2021-12-18] MEDS: NICOTINE 21MG/24HR 1 EA TRANSDERMAL TD SCH (09:00)
[2021-12-18 09:19] VITALS: BP 136/75
[2021-12-18 09:21] VITALS: BP_SYST 122; BP_SYST 126; BP_SYST 136; BP_DIAS 65; BP_DIAS 72; BP_DIAS 75
[2021-12-18 09:24] VITALS: BP 126/72
[2021-12-18] MEDS: traMADol 50 MG TAB PO PRN ×2 (11:11→21:22)
[2021-12-18] MEDS: LURASIDONE 20 MG TAB (LATUDA) PO SCH (17:15)
[2021-12-18 18:00] VITALS: BP 125/64
[2021-12-19] MEDS: diphenhydrAMINE 50MG CAP PO PRN ×2 (01:40→20:14)
[2021-12-19] MEDS: SUCRALFATE 1 GM TAB PO SCH ×2 (06:32→16:59)
[2021-12-19 06:43] VITALS: BP 129/59
[2021-12-19] MEDS: traMADol 50 MG TAB PO PRN ×2 (08:48→20:14)
[2021-12-19] MEDS: OMEPRAZOLE 20MG CAP PO SCH (08:49)
[2021-12-19] MEDS: APIXABAN 5 MG TAB (ELIQUIS) PO SCH ×2 (08:49→20:14)
[2021-12-19] MEDS: METOPROLOL TARTRATE 100MG TAB PO SCH ×2 (08:54→20:15)
[2021-12-19] MEDS: NICOTINE 21MG/24HR 1 EA TRANSDERMAL TD SCH (08:58)
[2021-12-19] MEDS: VENLAFAXINE **XR** 37.5 MG CAPSULE PO SCH (13:56)
[2021-12-19 16:29] VITALS: BP 129/70
[2021-12-19] MEDS: LURASIDONE 20 MG TAB (LATUDA) PO SCH (17:52)
[2021-12-20] MEDS: ACETAMINOPHEN TAB 650MG DOSE (2X325MG) PO PRN (01:44)
[2021-12-20 06:37] VITALS: BP 140/79
[2021-12-20] MEDS: SUCRALFATE 1 GM TAB PO SCH ×2 (06:47→16:57)
[2021-12-20 08:41] LABS: CHOLESTEROL RISK RATIO 4.255 (<5)
[2021-12-20] MEDS: METOPROLOL TARTRATE 100MG TAB PO SCH ×2 (08:45→20:12)
[2021-12-20] MEDS: APIXABAN 5 MG TAB (ELIQUIS) PO SCH ×2 (08:45→20:11)
[2021-12-20] MEDS: OMEPRAZOLE 20MG CAP PO SCH (08:45)
[2021-12-20] MEDS: VENLAFAXINE **XR** 37.5 MG CAPSULE PO SCH (08:45)
[2021-12-20] MEDS: NICOTINE 21MG/24HR 1 EA TRANSDERMAL TD SCH (08:46)
[2021-12-20 09:36] LABS: HEMOGLOBIN A1c 5.1 %
[2021-12-20] MEDS: traMADol 50 MG TAB PO PRN ×2 (14:35→21:18)
[2021-12-20 16:05] VITALS: BP 127/69
[2021-12-20] MEDS: LURASIDONE 20 MG TAB (LATUDA) PO SCH (17:42)
[2021-12-20] MEDS: diphenhydrAMINE 50MG CAP PO PRN (20:12)
[2021-12-21] MEDS: ACETAMINOPHEN TAB 650MG DOSE (2X325MG) PO PRN (05:23)
[2021-12-21 06:36] VITALS: BP 140/67
[2021-12-21] MEDS: SUCRALFATE 1 GM TAB PO SCH ×2 (06:39→17:01)
[2021-12-21 08:22] VITALS: BP 121/63
[2021-12-21] MEDS: APIXABAN 5 MG TAB (ELIQUIS) PO SCH ×2 (08:26→20:32)
[2021-12-21] MEDS: OMEPRAZOLE 20MG CAP PO SCH (08:26)
[2021-12-21] MEDS: VENLAFAXINE **XR** 37.5 MG CAPSULE PO SCH (08:26)
[2021-12-21] MEDS: METOPROLOL TARTRATE 100MG TAB PO SCH ×2 (08:26→20:36)
[2021-12-21] MEDS: NICOTINE 21MG/24HR 1 EA TRANSDERMAL TD SCH (08:27)
[2021-12-21 16:27] VITALS: BP 132/72
[2021-12-21] MEDS: LURASIDONE 20 MG TAB (LATUDA) PO SCH (17:58)
[2021-12-21] MEDS: PILL CUTTER 1 EACH XX PRN (20:34)
[2021-12-21] MEDS: diphenhydrAMINE 50MG CAP PO PRN (20:35)
[2021-12-21] MEDS: traMADol 50 MG TAB PO PRN (20:35)
[2021-12-22] MEDS: IBUPROFEN 600MG TAB PO PRN (04:07)
[2021-12-22 06:21] VITALS: BP 144/67
[2021-12-22] MEDS: SUCRALFATE 1 GM TAB PO SCH ×2 (06:30→16:48)
[2021-12-22] MEDS: VENLAFAXINE **XR** 37.5 MG CAPSULE PO SCH (08:24)
[2021-12-22] MEDS: APIXABAN 5 MG TAB (ELIQUIS) PO SCH ×2 (08:24→20:10)
[2021-12-22] MEDS: OMEPRAZOLE 20MG CAP PO SCH (08:24)
[2021-12-22] MEDS: METOPROLOL TARTRATE 100MG TAB PO SCH ×2 (08:25→20:11)
[2021-12-22] MEDS: traMADol 50 MG TAB PO PRN ×2 (12:42→20:10)
[2021-12-22] MEDS: LURASIDONE 20 MG TAB (LATUDA) PO SCH (18:06)
[2021-12-22 18:40] VITALS: BP 129/66
[2021-12-22] MEDS: diphenhydrAMINE 50MG CAP PO PRN (20:10)
[2021-12-22] MEDS: PILL CUTTER 1 EACH XX PRN (20:10)
[2021-12-23] MEDS: traMADol 50 MG TAB PO PRN ×3 (04:34→19:59)
[2021-12-23 06:03] VITALS: BP 138/60
[2021-12-23] MEDS: SUCRALFATE 1 GM TAB PO SCH ×2 (06:35→17:01)
[2021-12-23 08:10] VITALS: BP 122/78
[2021-12-23] MEDS: VENLAFAXINE **XR** 37.5 MG CAPSULE PO SCH (08:11)
[2021-12-23] MEDS: APIXABAN 5 MG TAB (ELIQUIS) PO SCH ×2 (08:11→19:56)
[2021-12-23] MEDS: METOPROLOL TARTRATE 100MG TAB PO SCH ×2 (08:11→19:59)
[2021-12-23] MEDS: OMEPRAZOLE 20MG CAP PO SCH (08:11)
[2021-12-23] MEDS: PILL CUTTER 1 EACH XX PRN (11:38)
[2021-12-23 16:10] VITALS: BP 135/63
[2021-12-23] MEDS: LURASIDONE HCL 40MG TAB (LATUDA) PO SCH (17:51)
[2021-12-23] MEDS: rOPINIRole 0.25 MG TAB(REQUIP) PO SCH (19:56)
[2021-12-24] MEDS: IBUPROFEN 600MG TAB PO PRN (01:56)
[2021-12-24 06:14] VITALS: BP 134/61
[2021-12-24] MEDS: SUCRALFATE 1 GM TAB PO SCH ×2 (06:42→17:09)
[2021-12-24] MEDS: METOPROLOL TARTRATE 100MG TAB PO SCH ×2 (08:17→19:58)
[2021-12-24] MEDS: VENLAFAXINE **XR** 75MG CAPSULE PO SCH (08:18)
[2021-12-24] MEDS: OMEPRAZOLE 20MG CAP PO SCH (08:18)
[2021-12-24] MEDS: APIXABAN 5 MG TAB (ELIQUIS) PO SCH ×2 (08:18→19:56)
[2021-12-24] MEDS: PILL CUTTER 1 EACH XX PRN (09:37)
[2021-12-24] MEDS: traMADol 50 MG TAB PO PRN ×2 (09:39→19:57)
[2021-12-24 16:20] VITALS: BP 118/70
[2021-12-24] MEDS: LURASIDONE HCL 40MG TAB (LATUDA) PO SCH (17:52)
[2021-12-24] MEDS: rOPINIRole 0.25 MG TAB(REQUIP) PO SCH (19:56)
[2021-12-25 06:38] VITALS: BP 123/59
[2021-12-25] MEDS: SUCRALFATE 1 GM TAB PO SCH ×2 (06:45→17:03)
[2021-12-25 07:47] VITALS: BP 122/70
[2021-12-25] MEDS: OMEPRAZOLE 20MG CAP PO SCH (07:50)
[2021-12-25] MEDS: APIXABAN 5 MG TAB (ELIQUIS) PO SCH ×2 (07:50→20:05)
[2021-12-25] MEDS: VENLAFAXINE **XR** 75MG CAPSULE PO SCH (07:50)
[2021-12-25] MEDS: METOPROLOL TARTRATE 100MG TAB PO SCH ×2 (07:50→20:07)
[2021-12-25] MEDS: PILL CUTTER 1 EACH XX PRN (11:03)
[2021-12-25] MEDS: traMADol 50 MG TAB PO PRN ×2 (11:06→20:05)
[2021-12-25 16:10] VITALS: BP 107/55
[2021-12-25] MEDS: LURASIDONE HCL 40MG TAB (LATUDA) PO SCH (17:53)
[2021-12-25] MEDS: diphenhydrAMINE 50MG CAP PO PRN (20:03)
[2021-12-25] MEDS: rOPINIRole 0.25 MG TAB(REQUIP) PO SCH (20:06)
[2021-12-26] MEDS: SUCRALFATE 1 GM TAB PO SCH ×2 (06:30→16:44)
[2021-12-26] MEDS: VENLAFAXINE **XR** 75MG CAPSULE PO SCH (08:15)
[2021-12-26] MEDS: APIXABAN 5 MG TAB (ELIQUIS) PO SCH ×2 (08:16→20:28)
[2021-12-26] MEDS: METOPROLOL TARTRATE 100MG TAB PO SCH ×4 (08:16→20:36)
[2021-12-26] MEDS: OMEPRAZOLE 20MG CAP PO SCH (08:16)
[2021-12-26] MEDS: traMADol 50 MG TAB PO PRN ×2 (08:19→20:30)
[2021-12-26] MEDS: LURASIDONE HCL 40MG TAB (LATUDA) PO SCH (17:58)
[2021-12-26 18:07] VITALS: BP 126/61
[2021-12-26] MEDS: rOPINIRole 0.25 MG TAB(REQUIP) PO SCH (20:27)
[2021-12-26] MEDS: diphenhydrAMINE 50MG CAP PO PRN (20:30)
[2021-12-26] MEDS: LIDOCAINE 4% CREAM 5GM (LMX4) TOP PRN (20:31)
[2021-12-27] MEDS: SUCRALFATE 1 GM TAB PO SCH ×2 (06:33→17:22)
[2021-12-27 06:37] VITALS: BP 138/73
[2021-12-27] MEDS: OMEPRAZOLE 20MG CAP PO SCH (08:13)
[2021-12-27] MEDS: APIXABAN 5 MG TAB (ELIQUIS) PO SCH ×2 (08:13→20:21)
[2021-12-27] MEDS: VENLAFAXINE **XR** 75MG CAPSULE PO SCH (08:13)
[2021-12-27] MEDS: METOPROLOL TARTRATE 100MG TAB PO SCH ×2 (08:15→20:20)
[2021-12-27] MEDS: LIDOCAINE 4% CREAM 5GM (LMX4) TOP PRN ×2 (12:26→20:53)
[2021-12-27] MEDS: PILL CUTTER 1 EACH XX PRN (12:27)
[2021-12-27] MEDS: traMADol 50 MG TAB PO PRN ×2 (12:27→20:21)
[2021-12-27] MEDS: LURASIDONE HCL 40MG TAB (LATUDA) PO SCH (17:58)
[2021-12-27 18:04] VITALS: BP 113/60
[2021-12-27] MEDS: diphenhydrAMINE 50MG CAP PO PRN (20:22)
[2021-12-27] MEDS: rOPINIRole 0.25 MG TAB(REQUIP) PO SCH (20:22)
[2021-12-28 06:15] VITALS: BP 129/68
[2021-12-28] MEDS: SUCRALFATE 1 GM TAB PO SCH ×2 (06:30→16:59)
[2021-12-28] MEDS: APIXABAN 5 MG TAB (ELIQUIS) PO SCH ×2 (08:36→21:15)
[2021-12-28] MEDS: VENLAFAXINE **XR** 75MG CAPSULE PO SCH (08:36)
[2021-12-28] MEDS: METOPROLOL TARTRATE 100MG TAB PO SCH ×2 (08:37→21:00)
[2021-12-28] MEDS: OMEPRAZOLE 20MG CAP PO SCH (08:37)
[2021-12-28] MEDS: PILL CUTTER 1 EACH XX PRN (08:39)
[2021-12-28] MEDS: traMADol 50 MG TAB PO PRN ×2 (08:40→21:15)
[2021-12-28] MEDS ORDERED: LOPR1TAB7 PO (09:00)
[2021-12-28] MEDS ORDERED: VENTAER INH (09:00)
[2021-12-28] MEDS ORDERED: TRAM50TA2 PO (09:00)
[2021-12-28] MEDS ORDERED: LIDO4CR TOP (09:00)
[2021-12-28] MEDS ORDERED: ELIQ5TAB PO (09:00)
[2021-12-28] MEDS ORDERED: DIPH50CA PO (09:00)
[2021-12-28] MEDS ORDERED: VENL75CA47 PO (09:00)
[2021-12-28] MEDS ORDERED: ROPI0.5T3 PO (09:00)
[2021-12-28] MEDS ORDERED: OMEP-173 PO (09:00)
[2021-12-28] MEDS ORDERED: SUCR1TA PO (09:00)
[2021-12-28] MEDS ORDERED: DIPHCR TOP (09:00)
[2021-12-28] MEDS ORDERED: HYDR-3363 PO (09:00)
[2021-12-28] MEDS ORDERED: LATU40TA2 PO (09:00)
[2021-12-28] MEDS: LURASIDONE HCL 40MG TAB (LATUDA) PO SCH (17:01)
[2021-12-28 17:48] VITALS: BP 133/60
[2021-12-28] MEDS: diphenhydrAMINE 50MG CAP PO PRN (21:15)
[2021-12-28] MEDS: rOPINIRole 0.25 MG TAB(REQUIP) PO SCH (21:15)
[2021-12-29] MEDS: IBUPROFEN 600MG TAB PO PRN (03:22)
[2021-12-29 06:23] VITALS: BP 154/67
[2021-12-29] MEDS: SUCRALFATE 1 GM TAB PO SCH (06:36)
[2021-12-29] MEDS: APIXABAN 5 MG TAB (ELIQUIS) PO SCH (08:54)
[2021-12-29] MEDS: VENLAFAXINE **XR** 75MG CAPSULE PO SCH (08:54)
[2021-12-29] MEDS: OMEPRAZOLE 20MG CAP PO SCH (08:54)
[2021-12-29 08:55] VITALS: BP 131/65
[2021-12-29] MEDS: METOPROLOL TARTRATE 100MG TAB PO SCH (08:55)
== END 2021-12-29 09:50 | disposition home or self-care (01) | DRG 757 ==
LOC: M ED 15:10 → M ED INP 18:26 → M PSY 20:17
PROVIDERS: ADMIT Psychiatry & Neurology Psychiatry; ATTEND Psychiatry & Neurology Psychiatry
DX: F84.0 Autistic disorder (principal); I50.9 Heart failure, unspecified; R45.851 Suicidal ideations; Z91.14 Patient's other noncompliance with medication regimen; I48.91 Unspecified atrial fibrillation; F31.9 Bipolar disorder, unspecified; F41.9 Anxiety disorder, unspecified; R19.03 Right lower quadrant abdominal swelling, mass and lump; Z91.51 Personal history of suicidal behavior; Z81.8 Family history of other mental and behavioral disorders; Z91.411 Personal history of adult psychological abuse; Z62.810 Personal history of physical and sexual abuse in childhood; E11.9 Type 2 diabetes mellitus without complications; M79.7 Fibromyalgia; N39.3 Stress incontinence (female) (male); K21.9 Gastro-esophageal reflux disease without esophagitis; M54.9 Dorsalgia, unspecified; R07.89 Other chest pain; Z79.01 Long term (current) use of anticoagulants; Z79.899 Other long term (current) drug therapy

== ENCOUNTER 2022-01-01 13:18 | Inpatient (IN) | payer OTHER ==
[~2022-01-01] VITALS: Ht 157.5 cm; Wt 117.1 kg
[~2022-01-01 13:18] MED LIST changes: +DIPH50CA PO; +DIPHCR TOP; +LIDO4CR TOP; +LOPR1TAB7 PO; +OMEP-173 PO; +ROPI0.5T3 PO; +VENL75CA47 PO
[2022-01-01] MEDS ORDERED: CHARCOAL ACTIVATED LIQUID 25 GM/120 ML BTL PO ONE (13:40)
[2022-01-01 13:51] LABS: BASO % 0.4 % (0.0-1.0); EOS # 0.1 10^3/uL (0.0-0.5); EOS % 1.8 % (0.0-3.0); HEMATOCRIT 43.8 % (36.0-47.0); HEMOGLOBIN 14.3 g/dl (12.0-15.5); LYMPH # 2.1 10^3/uL (1.5-5.0); LYMPH % 37.5 % (24.0-44.0); MEAN CORPUSCULAR HEMOGLOBIN 30.4 pg (27.0-33.0); MEAN CORPUSCULAR HGB CONC 32.6 g/dl (32.0-36.5); MONO # 0.4 10^3/uL (0.0-0.8); MONO % 6.3 % (2.0-8.0); NEUTROPHILS % 53.8 % (36.0-66.0); PLATELET COUNT, AUTOMATED 205 10^3/uL (150-450); RED BLOOD COUNT 4.71 10^6/uL (4.00-5.40); WHITE BLOOD COUNT 5.6 10^3/uL (4.0-10.0)
[2022-01-01 14:02] LABS: INR 2.05; PROTHROMBIN TIME 23.5 SECONDS (12.5-14.5)
[2022-01-01 14:03] LABS: PARTIAL THROMBOPLASTIN TIME 38.5 SECONDS (24.8-34.2)
[2022-01-01] MEDS ORDERED: GLUCAGON INJ 1MG VIAL IV STA ×2 (14:06→14:49)
[2022-01-01] MEDS ORDERED: CALCIUM GLUCONATE 1,000 MG in D5W MINI-BAG PLUS 100 ML IV ONE (14:10)
[2022-01-01] MEDS ORDERED: HOME MED LIST COMPLETE! XX SCH (14:30)
[2022-01-01 14:32] LABS: ACETAMINOPHEN LEVEL < 2.0 UG/ML (10.0-30.0); ALBUMIN 3.4 GM/DL (3.2-5.2); ALT/SGPT 25 U/L (12-78); BILIRUBIN,DIRECT 0.2 MG/DL (0.0-0.2); BILIRUBIN,TOTAL 0.4 MG/DL (0.2-1.0); BLOOD UREA NITROGEN 13 MG/DL (7-18); CALCIUM LEVEL 8.6 MG/DL (8.5-10.1); CARBON DIOXIDE LEVEL 26 MEQ/L (21-32); CHLORIDE LEVEL 108 MEQ/L (98-107); CREATININE FOR GFR 1.31 MG/DL (0.55-1.30); ETHYL ALCOHOL (ETHANOL) < 0.003 % (0.000-0.010); GLOMERULAR FILTRATION RATE 44.7 (>51); GLUCOSE, FASTING 97 MG/DL (70-100); POTASSIUM SERUM 3.6 MEQ/L (3.5-5.1); SALICYLATE LEVEL < 1.7 MG/DL (5.0-30.0); SODIUM LEVEL 138 MEQ/L (136-145); TOTAL PROTEIN 6.7 GM/DL (6.4-8.2)
[2022-01-01 14:38] LABS: RSV AMPLIFICATION NEGATIVE (NEGATIVE)
[2022-01-01] MEDS ORDERED: GLUCOSE 4GM CHEW TABLET PO PRN (15:35)
[2022-01-01] MEDS ORDERED: DEXTROSE 50% 50 ML SYRINGE IV PRN (15:35)
[2022-01-01] MEDS ORDERED: GLUCAGON INJ 1MG VIAL SC PRN (15:35)
[2022-01-01] MEDS ORDERED: ATROPINE SULF 1MG/10ML SYRINGE (J0461) IV PRN (15:35)
[2022-01-01] MEDS ORDERED: IPRATROPIUM 0.5MG/ALBUTEROL 2.5MG INH SOL UD 3ML (DUONEB) NEB PRN (16:00)
[2022-01-01] MEDS: NS 1,000 ML IV SCH (16:11)
[2022-01-01 17:02] LABS: AMPHETAMINES LEVEL URINE NEGATIVE (NEGATIVE); BARBITURATES URINE NEGATIVE (NEGATIVE); BENZODIAZEPINES URINE NEGATIVE (NEGATIVE); CANNABINOIDS URINE NEGATIVE (NEGATIVE); COCAINE METABOLITE URINE NEGATIVE (NEGATIVE); METHADONE URINE NEGATIVE (NEGATIVE); OPIATES URINE NEGATIVE (NEGATIVE); PHENCYCLIDINE URINE POSITIVE (NEGATIVE)
[2022-01-01 17:38] LABS: FREE T4 1.06 NG/DL (0.76-1.46)
[2022-01-01 20:35] VITALS: BP 144/65
[2022-01-01 23:51] VITALS: BP 106/54
[2022-01-02] MEDS: NS 1,000 ML IV SCH (00:59)
[2022-01-02 04:21] VITALS: BP 121/59
[2022-01-02 06:26] LABS: HEMOGLOBIN 13.2 g/dl (12.0-15.5); MEAN CORPUSCULAR HEMOGLOBIN 30.4 pg (27.0-33.0); MEAN CORPUSCULAR HGB CONC 32.2 g/dl (32.0-36.5); MEAN CORPUSCULAR VOLUME 94.5 fl (80.0-96.0); PLATELET COUNT, AUTOMATED 179 10^3/uL (150-450); RED BLOOD COUNT 4.34 10^6/uL (4.00-5.40); WHITE BLOOD COUNT 4.5 10^3/uL (4.0-10.0)
[2022-01-02 06:41] LABS: INR 1.34; PARTIAL THROMBOPLASTIN TIME 33.7 SECONDS (24.8-34.2); PROTHROMBIN TIME 16.8 SECONDS (12.5-14.5)
[2022-01-02 07:21] LABS: ALBUMIN 2.9 GM/DL (3.2-5.2); BILIRUBIN,TOTAL 0.2 MG/DL (0.2-1.0); CALCIUM LEVEL 8.8 MG/DL (8.5-10.1); CREATININE FOR GFR 1.09 MG/DL (0.55-1.30); GLOMERULAR FILTRATION RATE 55.3 (>51); MAGNESIUM LEVEL 2.2 MG/DL (1.8-2.4); PHOSPHORUS LEVEL 3.4 MG/DL (2.5-4.9); POTASSIUM SERUM 3.9 MEQ/L (3.5-5.1); TOTAL PROTEIN 5.9 GM/DL (6.4-8.2)
[2022-01-02 07:49] VITALS: BP 105/51
[2022-01-02 12:00] VITALS: BP 112/48
[2022-01-02 16:14] VITALS: BP 107/53
[2022-01-02 20:11] VITALS: BP 135/60
[2022-01-02] MEDS ORDERED: rOPINIRole 0.25 MG TAB(REQUIP) PO SCH (21:00)
[2022-01-02] MEDS: ANALGESIC BALM CRM 3OZ TOP SCH (21:27)
[2022-01-03 00:04] VITALS: BP 119/60
[2022-01-03] MEDS ORDERED: ACETAMINOPHEN TAB 650MG DOSE (2X325MG) PO ONE (02:35)
[2022-01-03 04:11] VITALS: BP 134/73
[2022-01-03 05:52] LABS: HEMATOCRIT 39.9 % (36.0-47.0); HEMOGLOBIN 13.3 g/dl (12.0-15.5); MEAN CORPUSCULAR HEMOGLOBIN 30.9 pg (27.0-33.0); MEAN CORPUSCULAR HGB CONC 33.3 g/dl (32.0-36.5); MEAN CORPUSCULAR VOLUME 92.6 fl (80.0-96.0); PLATELET COUNT, AUTOMATED 152 10^3/uL (150-450); RED BLOOD COUNT 4.31 10^6/uL (4.00-5.40); WHITE BLOOD COUNT 4.9 10^3/uL (4.0-10.0)
[2022-01-03 06:21] LABS: CALCIUM LEVEL 8.3 MG/DL (8.5-10.1); CREATININE FOR GFR 1.08 MG/DL (0.55-1.30); GLOMERULAR FILTRATION RATE 55.9 (>51); MAGNESIUM LEVEL 1.8 MG/DL (1.8-2.4); PHOSPHORUS LEVEL 3.3 MG/DL (2.5-4.9)
[2022-01-03 07:51] VITALS: BP 129/60
[2022-01-03] MEDS ORDERED: OMEPRAZOLE 20MG CAP PO SCH (09:00)
[2022-01-03] MEDS: ANALGESIC BALM CRM 3OZ TOP SCH (09:00)
[2022-01-03] MEDS ORDERED: ALBUTEROL 90 MCG/ACT 8GM HFA INHALER INH PRN (11:20)
[2022-01-03 11:33] VITALS: BP 130/80
[2022-01-03 16:00] VITALS: BP 141/76
[2022-01-03] MEDS ORDERED: ELIQ5TAB PO (16:31)
[2022-01-03] MEDS ORDERED: SUCRALFATE 1 GM TAB PO SCH (17:30)
[2022-01-03] MEDS ORDERED: APIXABAN 5 MG TAB (ELIQUIS) PO SCH (21:00)
[2022-01-04] MEDS ORDERED: APIXABAN 5 MG TAB (ELIQUIS) PO SCH (09:00)
== END 2022-01-03 17:41 | DRG 812 ==
LOC: M ED 13:18 → EDBD 13:18 → M PCU 15:25 → M ED INP 15:25 → M PCU 20:35
PROVIDERS: ADMIT Internal Medicine; ATTEND Internal Medicine
DX: T43.212A Poisoning by selective serotonin and norepinephrine reuptake inhibitors, intentional self-harm, initial encounter (principal); N17.9 Acute kidney failure, unspecified; I48.91 Unspecified atrial fibrillation; F39 Unspecified mood [affective] disorder; R00.1 Bradycardia, unspecified; G25.81 Restless legs syndrome; M79.7 Fibromyalgia; F41.9 Anxiety disorder, unspecified; M54.9 Dorsalgia, unspecified; K21.9 Gastro-esophageal reflux disease without esophagitis; N39.3 Stress incontinence (female) (male); Z90.49 Acquired absence of other specified parts of digestive tract; T43.592A Poisoning by other antipsychotics and neuroleptics, intentional self-harm, initial encounter; T45.512A Poisoning by anticoagulants, intentional self-harm, initial encounter; T44.7X2A Poisoning by beta-adrenoreceptor antagonists, intentional self-harm, initial encounter; Z79.01 Long term (current) use of anticoagulants; Z79.899 Other long term (current) drug therapy; Z88.1 Allergy status to other antibiotic agents; Z88.2 Allergy status to sulfonamides; Z88.8 Allergy status to other drugs, medicaments and biological substances; Z81.8 Family history of other mental and behavioral disorders

== ENCOUNTER 2022-01-03 16:39 | Inpatient (IN) | payer OTHER ==
[~2022-01-03] VITALS: Ht 157.5 cm; Wt 112.1 kg
[2022-01-03] MEDS ORDERED: ALBUTEROL 90 MCG/ACT 8GM HFA INHALER INH PRN (17:10)
[2022-01-03] MEDS ORDERED: MAALOX 30 ML SUSP *UDC PO PRN (17:10)
[2022-01-03] MEDS ORDERED: OLANZapine ORAL DISINTEGRATING TAB 5MG PO PRN (17:10)
[2022-01-03] MEDS ORDERED: MOM 30ML SUSPENSION UDC PO PRN (17:10)
[2022-01-03 18:00] VITALS: BP 154/90
[2022-01-03 18:03] VITALS: BP 154/90
[2022-01-03] MEDS: SUCRALFATE 1 GM TAB PO SCH (18:11)
[2022-01-03] MEDS: ACETAMINOPHEN TAB 650MG DOSE (2X325MG) PO PRN (20:25)
[2022-01-03] MEDS: rOPINIRole 0.25 MG TAB(REQUIP) PO SCH (21:20)
[2022-01-04] MEDS: ACETAMINOPHEN TAB 650MG DOSE (2X325MG) PO PRN ×2 (04:28→20:13)
[2022-01-04 06:13] VITALS: BP 153/86
[2022-01-04] MEDS: SUCRALFATE 1 GM TAB PO SCH ×2 (06:52→17:34)
[2022-01-04] MEDS: APIXABAN 5 MG TAB (ELIQUIS) PO SCH ×2 (09:42→20:10)
[2022-01-04] MEDS: OMEPRAZOLE 20MG CAP PO SCH (09:42)
[2022-01-04] MEDS ORDERED: ONDANSETRON 4MG TAB PO PRN (15:00)
[2022-01-04] MEDS ORDERED: SIMETHICONE 80MG CHEW TAB PO PRN (15:00)
[2022-01-04 16:03] VITALS: BP 146/82
[2022-01-04] MEDS: amLODIPine 5 MG TAB PO SCH (16:06)
[2022-01-04 16:46] LABS: HEMATOCRIT 41.8 % (36.0-47.0); HEMOGLOBIN 14.4 g/dl (12.0-15.5); MEAN CORPUSCULAR HEMOGLOBIN 31.2 pg (27.0-33.0); MEAN CORPUSCULAR HGB CONC 34.4 g/dl (32.0-36.5); MEAN CORPUSCULAR VOLUME 90.5 fl (80.0-96.0); PLATELET COUNT, AUTOMATED 186 10^3/uL (150-450); RED BLOOD COUNT 4.62 10^6/uL (4.00-5.40); WHITE BLOOD COUNT 5.2 10^3/uL (4.0-10.0)
[2022-01-04 18:41] LABS: CALCIUM LEVEL 9.3 MG/DL (8.5-10.1); CREATININE FOR GFR 1.05 MG/DL (0.55-1.30); GLOMERULAR FILTRATION RATE 57.7 (>51); POTASSIUM SERUM 3.8 MEQ/L (3.5-5.1)
[2022-01-04 18:42] LABS: ALBUMIN 3.2 GM/DL (3.2-5.2); BILIRUBIN,TOTAL 0.4 MG/DL (0.2-1.0); TOTAL PROTEIN 6.5 GM/DL (6.4-8.2)
[2022-01-04] MEDS: traZODone 50 MG TAB PO PRN (20:10)
[2022-01-04] MEDS: rOPINIRole 0.25 MG TAB(REQUIP) PO SCH (20:11)
[2022-01-04] MEDS ORDERED: diphenhydrAMINE 50MG CAP PO ONE (23:55)
[2022-01-04] MEDS ORDERED: METOCLOPRAMIDE 5 MG TAB PO ONE (23:55)
[2022-01-04] MEDS ORDERED: KETOROLAC TROMETHAMINE 10 MG TAB PO ONE (23:55)
[2022-01-05 06:00] VITALS: BP 106/51
[2022-01-05] MEDS: SUCRALFATE 1 GM TAB PO SCH ×2 (06:33→16:59)
[2022-01-05] MEDS: APIXABAN 5 MG TAB (ELIQUIS) PO SCH ×2 (08:27→20:03)
[2022-01-05] MEDS: amLODIPine 5 MG TAB PO SCH (08:28)
[2022-01-05] MEDS: OMEPRAZOLE 20MG CAP PO SCH (08:28)
[2022-01-05] MEDS ORDERED: SUMAtriptan SUCCINATE 25 MG TAB PO PRN (10:00)
[2022-01-05] MEDS: ESCITALOPRAM OXALATE 10 MG TAB (LEXAPRO) PO SCH (10:57)
[2022-01-05] MEDS ORDERED: BISACODYL 10 MG SUPP PR PRN (15:10)
[2022-01-05 18:10] VITALS: BP 107/61
[2022-01-05] MEDS: traZODone 50 MG TAB PO PRN (20:03)
[2022-01-05] MEDS: rOPINIRole 0.25 MG TAB(REQUIP) PO SCH ×2 (20:03→20:53)
[2022-01-05] MEDS: SENNA 8.6 MG TAB (SENOKOT) PO SCH (20:52)
[2022-01-06 05:56] VITALS: BP 122/56
[2022-01-06] MEDS: SUCRALFATE 1 GM TAB PO SCH ×2 (06:30→17:14)
[2022-01-06] MEDS: SENNA 8.6 MG TAB (SENOKOT) PO SCH ×2 (08:35→20:01)
[2022-01-06] MEDS: ESCITALOPRAM OXALATE 10 MG TAB (LEXAPRO) PO SCH (08:39)
[2022-01-06] MEDS: APIXABAN 5 MG TAB (ELIQUIS) PO SCH ×2 (08:39→19:59)
[2022-01-06] MEDS: TOPIRAMATE (TopAMAX) 25 MG TAB PO SCH ×2 (08:39→20:00)
[2022-01-06] MEDS: amLODIPine 5 MG TAB PO SCH (08:39)
[2022-01-06] MEDS: OMEPRAZOLE 20MG CAP PO SCH (08:39)
[2022-01-06 16:28] VITALS: BP 134/74
[2022-01-06] MEDS: rOPINIRole 0.25 MG TAB(REQUIP) PO SCH (19:59)
[2022-01-06] MEDS: traZODone 50 MG TAB PO PRN (19:59)
[2022-01-07] MEDS: SUCRALFATE 1 GM TAB PO SCH ×2 (06:38→17:13)
[2022-01-07] MEDS: ACETAMINOPHEN TAB 650MG DOSE (2X325MG) PO PRN (06:40)
[2022-01-07 06:43] VITALS: BP 116/59
[2022-01-07] MEDS: TOPIRAMATE (TopAMAX) 25 MG TAB PO SCH ×2 (08:40→20:04)
[2022-01-07] MEDS: OMEPRAZOLE 20MG CAP PO SCH (08:40)
[2022-01-07] MEDS: SENNA 8.6 MG TAB (SENOKOT) PO SCH ×2 (08:40→20:07)
[2022-01-07] MEDS: APIXABAN 5 MG TAB (ELIQUIS) PO SCH ×2 (08:41→20:04)
[2022-01-07] MEDS: ESCITALOPRAM OXALATE 10 MG TAB (LEXAPRO) PO SCH (08:41)
[2022-01-07] MEDS: amLODIPine 5 MG TAB PO SCH (08:44)
[2022-01-07 16:09] VITALS: BP 125/77
[2022-01-07] MEDS: rOPINIRole 0.25 MG TAB(REQUIP) PO SCH (20:04)
[2022-01-07] MEDS: traZODone 50 MG TAB PO PRN (20:04)
[2022-01-07] MEDS: traMADol 50 MG TAB PO PRN (20:05)
[2022-01-07] MEDS: METOPROLOL TART 12.5 MG PER 1/2 TAB PO SCH (21:44)
[2022-01-08 06:25] VITALS: BP 112/66
[2022-01-08] MEDS: SUCRALFATE 1 GM TAB PO SCH ×2 (06:41→17:02)
[2022-01-08] MEDS: APIXABAN 5 MG TAB (ELIQUIS) PO SCH ×2 (07:34→21:14)
[2022-01-08] MEDS: OMEPRAZOLE 20MG CAP PO SCH (07:34)
[2022-01-08] MEDS: METOPROLOL TART 12.5 MG PER 1/2 TAB PO SCH ×2 (07:34→21:14)
[2022-01-08] MEDS: amLODIPine 5 MG TAB PO SCH (07:34)
[2022-01-08] MEDS: ESCITALOPRAM OXALATE 10 MG TAB (LEXAPRO) PO SCH (07:34)
[2022-01-08] MEDS: TOPIRAMATE (TopAMAX) 25 MG TAB PO SCH ×2 (07:34→21:14)
[2022-01-08] MEDS: SENNA 8.6 MG TAB (SENOKOT) PO SCH ×2 (07:35→21:00)
[2022-01-08 16:17] VITALS: BP_SYST 100; BP_SYST 135; BP_DIAS 59; BP_DIAS 65
[2022-01-08] MEDS: traMADol 50 MG TAB PO PRN (21:11)
[2022-01-08] MEDS: traZODone 50 MG TAB PO PRN (21:14)
[2022-01-08] MEDS: rOPINIRole 0.25 MG TAB(REQUIP) PO SCH (21:14)
[2022-01-09] MEDS: SUCRALFATE 1 GM TAB PO SCH ×2 (06:52→17:15)
[2022-01-09 07:08] VITALS: BP 114/55
[2022-01-09] MEDS: SENNA 8.6 MG TAB (SENOKOT) PO SCH ×2 (09:00→21:00)
[2022-01-09] MEDS: ESCITALOPRAM OXALATE 10 MG TAB (LEXAPRO) PO SCH (09:37)
[2022-01-09] MEDS: amLODIPine 5 MG TAB PO SCH (09:37)
[2022-01-09] MEDS: METOPROLOL TART 12.5 MG PER 1/2 TAB PO SCH ×2 (09:37→21:00)
[2022-01-09] MEDS: APIXABAN 5 MG TAB (ELIQUIS) PO SCH ×2 (09:37→21:18)
[2022-01-09] MEDS: OMEPRAZOLE 20MG CAP PO SCH (09:38)
[2022-01-09] MEDS: TOPIRAMATE (TopAMAX) 25 MG TAB PO SCH ×2 (09:38→21:19)
[2022-01-09 17:03] VITALS: BP 105/55
[2022-01-09] MEDS: traZODone 50 MG TAB PO PRN (21:17)
[2022-01-09] MEDS: traMADol 50 MG TAB PO PRN (21:18)
[2022-01-09] MEDS: rOPINIRole 0.25 MG TAB(REQUIP) PO SCH (21:18)
[2022-01-10] MEDS: SUCRALFATE 1 GM TAB PO SCH ×2 (06:39→17:24)
[2022-01-10 07:04] VITALS: BP 115/54
[2022-01-10 08:18] VITALS: BP 121/54
[2022-01-10] MEDS: OMEPRAZOLE 20MG CAP PO SCH (08:18)
[2022-01-10] MEDS: TOPIRAMATE (TopAMAX) 25 MG TAB PO SCH ×2 (08:18→20:52)
[2022-01-10] MEDS: APIXABAN 5 MG TAB (ELIQUIS) PO SCH ×2 (08:18→20:52)
[2022-01-10] MEDS: ESCITALOPRAM OXALATE 10 MG TAB (LEXAPRO) PO SCH (08:18)
[2022-01-10] MEDS: SENNA 8.6 MG TAB (SENOKOT) PO SCH ×2 (08:19→20:50)
[2022-01-10] MEDS: METOPROLOL TART 12.5 MG PER 1/2 TAB PO SCH ×2 (09:00→20:50)
[2022-01-10] MEDS: amLODIPine 5 MG TAB PO SCH (09:00)
[2022-01-10 18:10] VITALS: BP 115/58
[2022-01-10] MEDS: rOPINIRole 0.25 MG TAB(REQUIP) PO SCH (20:52)
[2022-01-10] MEDS: traZODone 50 MG TAB PO PRN (20:52)
[2022-01-10] MEDS: traMADol 50 MG TAB PO PRN (20:55)
[2022-01-11 06:17] VITALS: BP 126/72
[2022-01-11] MEDS: SUCRALFATE 1 GM TAB PO SCH ×2 (06:40→17:30)
[2022-01-11] MEDS: ESCITALOPRAM OXALATE 10 MG TAB (LEXAPRO) PO SCH (08:18)
[2022-01-11] MEDS: APIXABAN 5 MG TAB (ELIQUIS) PO SCH ×2 (08:19→20:24)
[2022-01-11] MEDS: TOPIRAMATE (TopAMAX) 25 MG TAB PO SCH ×2 (08:19→20:23)
[2022-01-11] MEDS: OMEPRAZOLE 20MG CAP PO SCH (08:19)
[2022-01-11] MEDS: METOPROLOL TART 12.5 MG PER 1/2 TAB PO SCH ×2 (08:21→20:21)
[2022-01-11] MEDS: amLODIPine 5 MG TAB PO SCH (08:21)
[2022-01-11] MEDS: SENNA 8.6 MG TAB (SENOKOT) PO SCH ×2 (08:25→21:00)
[2022-01-11 18:10] VITALS: BP 101/51
[2022-01-11] MEDS: rOPINIRole 0.25 MG TAB(REQUIP) PO SCH (20:23)
[2022-01-11] MEDS: traZODone 50 MG TAB PO PRN (20:23)
[2022-01-11] MEDS: traMADol 50 MG TAB PO PRN (20:25)
[2022-01-12] MEDS: SUCRALFATE 1 GM TAB PO SCH ×2 (07:01→17:15)
[2022-01-12] MEDS: SENNA 8.6 MG TAB (SENOKOT) PO SCH ×2 (08:47→20:12)
[2022-01-12] MEDS: OMEPRAZOLE 20MG CAP PO SCH (08:49)
[2022-01-12] MEDS: ESCITALOPRAM OXALATE 10 MG TAB (LEXAPRO) PO SCH (08:49)
[2022-01-12] MEDS: APIXABAN 5 MG TAB (ELIQUIS) PO SCH ×2 (08:49→20:10)
[2022-01-12] MEDS: TOPIRAMATE (TopAMAX) 25 MG TAB PO SCH ×2 (08:50→20:11)
[2022-01-12] MEDS: METOPROLOL TART 12.5 MG PER 1/2 TAB PO SCH ×2 (08:51→20:19)
[2022-01-12] MEDS: amLODIPine 5 MG TAB PO SCH (08:52)
[2022-01-12] MEDS ORDERED: LIDOCAINE 5% (LIDODERM) PATCH TD ONE (09:00)
[2022-01-12 19:23] VITALS: BP 108/62
[2022-01-12] MEDS: rOPINIRole 0.25 MG TAB(REQUIP) PO SCH (20:10)
[2022-01-12] MEDS: traZODone 50 MG TAB PO PRN (20:12)
[2022-01-12] MEDS: traMADol 50 MG TAB PO PRN (20:14)
[2022-01-13 06:38] VITALS: BP 108/54
[2022-01-13] MEDS: SUCRALFATE 1 GM TAB PO SCH (07:07)
[2022-01-13] MEDS: OMEPRAZOLE 20MG CAP PO SCH (08:27)
[2022-01-13] MEDS: TOPIRAMATE (TopAMAX) 25 MG TAB PO SCH (08:27)
[2022-01-13] MEDS: APIXABAN 5 MG TAB (ELIQUIS) PO SCH (08:27)
[2022-01-13] MEDS: ESCITALOPRAM OXALATE 10 MG TAB (LEXAPRO) PO SCH (08:27)
[2022-01-13 08:32] VITALS: BP 97/60
[2022-01-13] MEDS: METOPROLOL TART 12.5 MG PER 1/2 TAB PO SCH (08:32)
[2022-01-13] MEDS: SENNA 8.6 MG TAB (SENOKOT) PO SCH (08:33)
[2022-01-13] MEDS: amLODIPine 5 MG TAB PO SCH (08:33)
[2022-01-13] MEDS ORDERED: TRAM50TA2 PO (09:25)
[2022-01-13] MEDS ORDERED: TOPA50TA8 PO (09:25)
[2022-01-13] MEDS ORDERED: METO1TAB87 PO (09:25)
[2022-01-13] MEDS ORDERED: AMLO1TAB24 PO (09:25)
[2022-01-13] MEDS ORDERED: LEXA1TAB PO (09:25)
[2022-01-13] MEDS ORDERED: TRAM-533 PO (10:11)
== END 2022-01-13 11:37 | disposition home or self-care (01) | DRG 753 ==
LOC: M PSY 17:50
PROVIDERS: ADMIT Psychiatry & Neurology Psychiatry; ATTEND Psychiatry & Neurology Psychiatry
DX: F31.9 Bipolar disorder, unspecified (principal); I48.0 Paroxysmal atrial fibrillation; F41.9 Anxiety disorder, unspecified; I10 Essential (primary) hypertension; G25.81 Restless legs syndrome; F79 Unspecified intellectual disabilities; F60.3 Borderline personality disorder; Z91.51 Personal history of suicidal behavior; M79.7 Fibromyalgia; N39.3 Stress incontinence (female) (male); M54.9 Dorsalgia, unspecified; G89.29 Other chronic pain; K21.9 Gastro-esophageal reflux disease without esophagitis; Z90.49 Acquired absence of other specified parts of digestive tract; Z88.0 Allergy status to penicillin; Z88.1 Allergy status to other antibiotic agents; Z88.8 Allergy status to other drugs, medicaments and biological substances; Z81.8 Family history of other mental and behavioral disorders; Z62.810 Personal history of physical and sexual abuse in childhood; Z79.01 Long term (current) use of anticoagulants; Z79.899 Other long term (current) drug therapy

== ENCOUNTER 2022-07-27 11:44 | Emergency (ER) | payer OTHER ==
[~2022-07-27] VITALS: Ht 157.5 cm; Wt 108.5 kg
[~2022-07-27 11:44] MED LIST changes: +AMLO1TAB24 PO; +LEXA1TAB PO; -PAXI30TA11 PO; +PAXI30TA12 PO; +TOPA50TA8 PO; +TOPI-254 PO; -TOPI50TA9 PO; +TRAM-533 PO
[2022-07-27 13:23] LABS: HEMATOCRIT 46.8 % (36.0-47.0); HEMOGLOBIN 15.8 g/dl (12.0-15.5); MEAN CORPUSCULAR HEMOGLOBIN 30.7 pg (27.0-33.0); MEAN CORPUSCULAR HGB CONC 33.8 g/dl (32.0-36.5); MEAN CORPUSCULAR VOLUME 91.1 fl (80.0-96.0); PLATELET COUNT, AUTOMATED 219 10^3/uL (150-450); RED BLOOD COUNT 5.14 10^6/uL (4.00-5.40); WHITE BLOOD COUNT 5.2 10^3/uL (4.0-10.0)
[2022-07-27 13:50] LABS: ETHYL ALCOHOL (ETHANOL) 0.004 % (0.000-0.010)
[2022-07-27 13:51] LABS: ACETAMINOPHEN LEVEL < 2.0 UG/ML (10.0-20.0); ALBUMIN 3.3 G/DL (3.2-5.2); ALKALINE PHOSPHATASE 121 U/L (46-116); ALT/SGPT 28 U/L (7.0-40); AST/SGOT < 8 U/L (<34); BILIRUBIN,DIRECT 0.1 MG/DL (<0.4); BILIRUBIN,TOTAL 0.4 MG/DL (0.3-1.2); BLOOD UREA NITROGEN 13 MG/DL (9-23); CALCIUM LEVEL 9.1 MG/DL (8.5-10.1); CARBON DIOXIDE LEVEL 25 MMOL/L (20-31); CHLORIDE LEVEL 110 MMOL/L (98-107); CREATININE FOR GFR 0.93 MG/DL (0.55-1.30); GLOMERULAR FILTRATION RATE > 60.0 (>51); GLUCOSE, FASTING 94 MG/DL (60-100); POTASSIUM SERUM 4.1 MMOL/L (3.5-5.1); SALICYLATE LEVEL < 3.0 MG/DL (<30); SODIUM LEVEL 143 MMOL/L (136-145); TOTAL PROTEIN 6.4 G/DL (5.7-8.2)
[2022-07-27 13:55] LABS: THYROID STIMULATING HORMONE 2.751 uIU/ML (0.55-4.78)
[2022-07-27 15:31] LABS: AMPHETAMINES LEVEL URINE NEGATIVE (NEGATIVE); BARBITURATES URINE NEGATIVE (NEGATIVE); BENZODIAZEPINES URINE NEGATIVE (NEGATIVE); CANNABINOIDS URINE NEGATIVE (NEGATIVE); COCAINE METABOLITE URINE NEGATIVE (NEGATIVE); METHADONE URINE NEGATIVE (NEGATIVE); OPIATES URINE NEGATIVE (NEGATIVE); PHENCYCLIDINE URINE NEGATIVE (NEGATIVE)
[2022-07-27] MEDS ORDERED: ELIQ5TAB PO (18:27)
[2022-07-27] MEDS ORDERED: METO100T5 PO (18:27)
[2022-07-27] MEDS ORDERED: SUCR1TAB56 PO (18:27)
[2022-07-27] MEDS ORDERED: TOPI-254 PO (18:27)
[2022-07-27] MEDS ORDERED: VENL75CA47 PO (18:27)
[2022-07-27] MEDS ORDERED: LEXA1TAB PO (18:27)
[2022-07-27] MEDS ORDERED: HYDR-3363 PO (18:27)
[2022-07-27] MEDS ORDERED: DIPH50CA PO (18:27)
[2022-07-27] MEDS ORDERED: VENTAER INH (18:27)
[2022-07-27] MEDS ORDERED: OMEP1CAP73 PO (18:27)
[2022-07-27] MEDS ORDERED: ROPI0.5T3 PO (18:27)
[2022-07-27] MEDS ORDERED: HOME MED LIST COMPLETE! XX SCH (18:30)
[2022-07-27] MEDS ORDERED: ACETAMINOPH W/CODEINE #3 TAB UD PO ONE ×2 (18:45→23:40)
[2022-07-28] MEDS: SUCRALFATE 1 GM TAB PO SCH ×2 (08:26→18:00)
[2022-07-28] MEDS ORDERED: METOPROLOL TARTRATE 100MG TAB PO SCH (09:00)
[2022-07-28] MEDS: APIXABAN 5 MG TAB (ELIQUIS) PO SCH ×2 (10:29→21:23)
[2022-07-28] MEDS: OMEPRAZOLE 20MG CAP PO SCH (10:29)
[2022-07-28] MEDS ORDERED: ACETAMINOPH W/CODEINE #3 TAB UD PO ONE ×2 (10:40→20:55)
[2022-07-28 11:39] LABS: APPEARANCE, URINE HAZY (CLEAR); BACTERIA, URINE AUTO 1+ (NEGATIVE); BILIRUBIN, URINE AUTO NEGATIVE (NEGATIVE); BLOOD, URINE BLOOD NEGATIVE (NEGATIVE); COLOR, URINE STRAW (YELLOW); GLUCOSE, URINE (UA) AUTO NEGATIVE (NEGATIVE); KETONE, URINE AUTO NEGATIVE (NEGATIVE); LEUKOCYTE ESTERASE, URINE AUTO NEGATIVE (NEGATIVE); NITRITE, URINE AUTO NEGATIVE (NEGATIVE); PROTEIN, URINE AUTO NEGATIVE (NEGATIVE); RBC, URINE AUTO 1 /HPF (0-3); SPECIFIC GRAVITY URINE AUTO 1.005 (1.002-1.035); SQUAMOUS EPITHELIAL CELL UR AU 9 /HPF (0-6); UROBILINOGEN, URINE AUTO 0.2 mg/dL (0.0-2.0); WBC, URINE AUTO 2 /HPF (0-3)
[2022-07-28] MEDS ORDERED: rOPINIRole 0.25 MG TAB(REQUIP) PO SCH (21:00)
[2022-07-29] MEDS: APIXABAN 5 MG TAB (ELIQUIS) PO SCH (08:21)
[2022-07-29] MEDS: OMEPRAZOLE 20MG CAP PO SCH (08:22)
[2022-07-29] MEDS: SUCRALFATE 1 GM TAB PO SCH (08:22)
[2022-07-29] MEDS ORDERED: ACETAMINOPHEN TAB 650MG DOSE (2X325MG) PO ONE (10:55)
[2022-07-29 14:24] VITALS: BP 129/81
== END 2022-07-29 14:33 ==
LOC: M ED 11:44 → EEVIPCON 11:44 → M ED 07-29 14:33
DX: F32.A Depression, unspecified (principal); R45.851 Suicidal ideations; I48.91 Unspecified atrial fibrillation; I50.20 Unspecified systolic (congestive) heart failure; I10 Essential (primary) hypertension; E78.5 Hyperlipidemia, unspecified; K21.9 Gastro-esophageal reflux disease without esophagitis; Z88.1 Allergy status to other antibiotic agents; Z88.8 Allergy status to other drugs, medicaments and biological substances; Z88.0 Allergy status to penicillin; Z79.01 Long term (current) use of anticoagulants; Z79.51 Long term (current) use of inhaled steroids; Z79.899 Other long term (current) drug therapy

== ENCOUNTER 2022-08-12 13:29 | Emergency (ER) | payer OTHER ==
[~2022-08-12] VITALS: Ht 157.5 cm; Wt 112.4 kg
[2022-08-12 16:16] VITALS: BP 148/64
== END 2022-08-12 16:21 | disposition home or self-care (01) ==
LOC: M ED 13:29
DX: M25.512 Pain in left shoulder (principal); R20.2 Paresthesia of skin; I48.91 Unspecified atrial fibrillation; I11.9 Hypertensive heart disease without heart failure; I25.2 Old myocardial infarction; J44.9 Chronic obstructive pulmonary disease, unspecified; E78.5 Hyperlipidemia, unspecified; M79.7 Fibromyalgia; R56.9 Unspecified convulsions; Z85.41 Personal history of malignant neoplasm of cervix uteri; Z79.01 Long term (current) use of anticoagulants; Z88.1 Allergy status to other antibiotic agents; Z88.2 Allergy status to sulfonamides; Z88.0 Allergy status to penicillin; Z88.8 Allergy status to other drugs, medicaments and biological substances; Z79.899 Other long term (current) drug therapy

== ENCOUNTER 2022-08-14 16:53 | Inpatient (IN) | payer OTHER ==
[~2022-08-14] VITALS: Ht 157.5 cm; Wt 116.5 kg
[2022-08-14 18:04] LABS: HEMATOCRIT 44.5 % (36.0-47.0); HEMOGLOBIN 14.7 g/dl (12.0-15.5); MEAN CORPUSCULAR HEMOGLOBIN 30.9 pg (27.0-33.0); MEAN CORPUSCULAR VOLUME 93.5 fl (80.0-96.0); PLATELET COUNT, AUTOMATED 174 10^3/uL (150-450); RED BLOOD COUNT 4.76 10^6/uL (4.00-5.40)
[2022-08-14 18:26] LABS: AMPHETAMINES LEVEL URINE NEGATIVE (NEGATIVE); BARBITURATES URINE NEGATIVE (NEGATIVE); BENZODIAZEPINES URINE NEGATIVE (NEGATIVE); CANNABINOIDS URINE NEGATIVE (NEGATIVE); COCAINE METABOLITE URINE NEGATIVE (NEGATIVE); METHADONE URINE NEGATIVE (NEGATIVE); OPIATES URINE NEGATIVE (NEGATIVE); PHENCYCLIDINE URINE NEGATIVE (NEGATIVE)
[2022-08-14 18:28] LABS: ETHYL ALCOHOL (ETHANOL) 0.004 % (0.000-0.010)
[2022-08-14 18:29] LABS: SALICYLATE LEVEL < 3.0 MG/DL (<30)
[2022-08-14 18:30] LABS: ACETAMINOPHEN LEVEL < 2.0 UG/ML (10.0-20.0); ALBUMIN 3.5 G/DL (3.2-5.2); ALKALINE PHOSPHATASE 151 U/L (46-116); ALT/SGPT 103 U/L (7.0-40); AST/SGOT 71 U/L (<34); BILIRUBIN,DIRECT 0.1 MG/DL (<0.4); BILIRUBIN,TOTAL 0.6 MG/DL (0.3-1.2); BLOOD UREA NITROGEN 14 MG/DL (9-23); CALCIUM LEVEL 8.9 MG/DL (8.5-10.1); CARBON DIOXIDE LEVEL 26 MMOL/L (20-31); CHLORIDE LEVEL 107 MMOL/L (98-107); CREATININE FOR GFR 0.94 MG/DL (0.55-1.30); GLOMERULAR FILTRATION RATE > 60.0 (>51); GLUCOSE, FASTING 81 MG/DL (60-100); POTASSIUM SERUM 3.8 MMOL/L (3.5-5.1); SODIUM LEVEL 142 MMOL/L (136-145); TOTAL PROTEIN 6.6 G/DL (5.7-8.2)
[2022-08-14] MEDS ORDERED: NICOTINE 21MG/24HR 1 EA TRANSDERMAL TD PRN (20:30)
[2022-08-14] MEDS ORDERED: MOM 30ML SUSPENSION UDC PO PRN (20:30)
[2022-08-14] MEDS ORDERED: diphenhydrAMINE 25MG CAP PO PRN (20:30)
[2022-08-14] MEDS ORDERED: MAALOX 30 ML SUSP *UDC PO PRN (20:30)
[2022-08-14] MEDS ORDERED: HOME MED LIST COMPLETE! XX SCH (21:10)
[2022-08-14] MEDS ORDERED: diphenhydrAMINE 50MG CAP PO PRN (21:15)
[2022-08-14] MEDS ORDERED: ALBUTEROL 90 MCG/ACT 8GM HFA INHALER INH PRN (21:15)
[2022-08-14 22:32] VITALS: BP 132/82; TEMP 97.9; O2SAT 98
[2022-08-14] MEDS: traZODone 50 MG TAB PO PRN (22:51)
[2022-08-14] MEDS: OLANZapine ORAL DISINTEGRATING TAB 5MG PO PRN (22:51)
[2022-08-15 06:44] VITALS: BP 125/61; TEMP 98.4; O2SAT 98
[2022-08-15] MEDS: TOPIRAMATE (TopAMAX) 25 MG TAB PO SCH ×2 (07:40→20:11)
[2022-08-15] MEDS: OMEPRAZOLE 20MG CAP PO SCH (07:40)
[2022-08-15] MEDS: SUCRALFATE 1 GM TAB PO SCH ×2 (07:41→17:14)
[2022-08-15] MEDS: APIXABAN 5 MG TAB (ELIQUIS) PO SCH ×2 (07:41→20:12)
[2022-08-15] MEDS: METOPROLOL TARTRATE 100MG TAB PO SCH ×2 (07:41→20:12)
[2022-08-15] MEDS: OXcarbazepine 300 MG TAB PO SCH ×2 (09:52→20:11)
[2022-08-15 16:11] VITALS: BP 104/62; TEMP 96.9; O2SAT 100
[2022-08-15] MEDS: LURASIDONE HCL 40MG TAB (LATUDA) PO SCH (18:12)
[2022-08-15] MEDS: ATORVASTATIN 10 MG TAB PO SCH (20:12)
[2022-08-15] MEDS: OLANZapine ORAL DISINTEGRATING TAB 5MG PO PRN (20:12)
[2022-08-15] MEDS: traZODone 50 MG TAB PO PRN (20:12)
[2022-08-15] MEDS: rOPINIRole 0.25 MG TAB(REQUIP) PO SCH (20:12)
[2022-08-16 06:21] VITALS: BP 106/52; TEMP 98.2; O2SAT 98
[2022-08-16] MEDS: SUCRALFATE 1 GM TAB PO SCH ×2 (07:27→17:02)
[2022-08-16] MEDS: OMEPRAZOLE 20MG CAP PO SCH (08:34)
[2022-08-16] MEDS: APIXABAN 5 MG TAB (ELIQUIS) PO SCH ×2 (08:34→20:10)
[2022-08-16] MEDS: OXcarbazepine 300 MG TAB PO SCH ×2 (08:34→20:09)
[2022-08-16] MEDS: TOPIRAMATE (TopAMAX) 25 MG TAB PO SCH ×2 (08:34→20:10)
[2022-08-16] MEDS: METOPROLOL TARTRATE 100MG TAB PO SCH ×2 (09:27→20:07)
[2022-08-16 16:03] VITALS: BP 120/62; TEMP 97.4; O2SAT 97
[2022-08-16] MEDS: LURASIDONE HCL 40MG TAB (LATUDA) PO SCH (17:54)
[2022-08-16] MEDS: traZODone 50 MG TAB PO PRN (20:09)
[2022-08-16] MEDS: ATORVASTATIN 10 MG TAB PO SCH (20:10)
[2022-08-16] MEDS: rOPINIRole 0.25 MG TAB(REQUIP) PO SCH (20:10)
[2022-08-17] MEDS: ACETAMINOPHEN TAB 650MG DOSE (2X325MG) PO PRN ×2 (03:50→17:02)
[2022-08-17 06:37] VITALS: BP 118/59; TEMP 97.3; O2SAT 99
[2022-08-17 07:08] LABS: ALBUMIN 2.7 G/DL (3.2-5.2); ALKALINE PHOSPHATASE 115 U/L (46-116); ALT/SGPT 61 U/L (7.0-40); AST/SGOT 28 U/L (<34); BILIRUBIN,DIRECT < 0.1 MG/DL (<0.4); BILIRUBIN,TOTAL 0.2 MG/DL (0.3-1.2); TOTAL PROTEIN 5.5 G/DL (5.7-8.2)
[2022-08-17] MEDS: APIXABAN 5 MG TAB (ELIQUIS) PO SCH ×2 (08:23→20:15)
[2022-08-17] MEDS: SUCRALFATE 1 GM TAB PO SCH ×2 (08:23→18:06)
[2022-08-17] MEDS: OMEPRAZOLE 20MG CAP PO SCH (08:24)
[2022-08-17 08:25] VITALS: BP 100/50
[2022-08-17] MEDS: OXcarbazepine 300 MG TAB PO SCH ×2 (08:26→20:14)
[2022-08-17] MEDS: METOPROLOL TARTRATE 100MG TAB PO SCH ×2 (08:26→20:15)
[2022-08-17] MEDS: TOPIRAMATE (TopAMAX) 25 MG TAB PO SCH ×2 (08:26→20:14)
[2022-08-17] MEDS: LURASIDONE HCL 40MG TAB (LATUDA) PO SCH (18:06)
[2022-08-17 18:32] VITALS: BP 123/63; TEMP 97.7; O2SAT 95
[2022-08-17] MEDS: rOPINIRole 0.25 MG TAB(REQUIP) PO SCH (20:14)
[2022-08-17] MEDS: ATORVASTATIN 10 MG TAB PO SCH (20:15)
[2022-08-17] MEDS: NAPROXEN 250 MG TAB PO PRN (22:19)
[2022-08-18 06:01] VITALS: BP 131/67; TEMP 98.3; O2SAT 100
[2022-08-18] MEDS: OMEPRAZOLE 20MG CAP PO SCH (07:32)
[2022-08-18] MEDS: OXcarbazepine 300 MG TAB PO SCH ×2 (07:32→21:41)
[2022-08-18] MEDS: TOPIRAMATE (TopAMAX) 25 MG TAB PO SCH ×2 (07:33→21:41)
[2022-08-18] MEDS: SUCRALFATE 1 GM TAB PO SCH ×2 (07:33→17:13)
[2022-08-18] MEDS: METOPROLOL TARTRATE 100MG TAB PO SCH ×2 (07:33→21:00)
[2022-08-18] MEDS: APIXABAN 5 MG TAB (ELIQUIS) PO SCH ×2 (07:34→21:41)
[2022-08-18] MEDS: NAPROXEN 250 MG TAB PO PRN (13:47)
[2022-08-18 16:55] VITALS: BP 116/61; TEMP 97.4; O2SAT 97
[2022-08-18] MEDS: LURASIDONE 20 MG TAB (LATUDA) PO SCH (17:58)
[2022-08-18] MEDS: ATORVASTATIN 10 MG TAB PO SCH (21:41)
[2022-08-18] MEDS: rOPINIRole 0.25 MG TAB(REQUIP) PO SCH (21:41)
[2022-08-19] MEDS: ACETAMINOPHEN TAB 650MG DOSE (2X325MG) PO PRN ×2 (00:02→14:50)
[2022-08-19] MEDS: traZODone 50 MG TAB PO PRN (01:44)
[2022-08-19 06:35] VITALS: BP 106/61; TEMP 98.2; O2SAT 99
[2022-08-19] MEDS: OMEPRAZOLE 20MG CAP PO SCH (08:11)
[2022-08-19] MEDS: OXcarbazepine 300 MG TAB PO SCH ×2 (08:11→21:07)
[2022-08-19] MEDS: NAPROXEN 250 MG TAB PO PRN (08:12)
[2022-08-19] MEDS: APIXABAN 5 MG TAB (ELIQUIS) PO SCH ×2 (08:12→21:07)
[2022-08-19] MEDS: TOPIRAMATE (TopAMAX) 25 MG TAB PO SCH ×2 (08:12→21:07)
[2022-08-19] MEDS: SUCRALFATE 1 GM TAB PO SCH ×2 (08:12→17:58)
[2022-08-19] MEDS: METOPROLOL TARTRATE 100MG TAB PO SCH ×2 (08:14→21:07)
[2022-08-19 16:14] VITALS: BP 134/60; TEMP 97.1; O2SAT 100
[2022-08-19] MEDS: LURASIDONE 20 MG TAB (LATUDA) PO SCH (17:58)
[2022-08-19] MEDS: ATORVASTATIN 10 MG TAB PO SCH (21:07)
[2022-08-19] MEDS: rOPINIRole 0.25 MG TAB(REQUIP) PO SCH (21:07)
[2022-08-20] MEDS: NAPROXEN 250 MG TAB PO PRN ×2 (03:39→15:05)
[2022-08-20 06:44] VITALS: BP 115/66; TEMP 96.8; O2SAT 100
[2022-08-20] MEDS: OMEPRAZOLE 20MG CAP PO SCH (07:57)
[2022-08-20] MEDS: METOPROLOL TARTRATE 100MG TAB PO SCH ×2 (07:57→21:00)
[2022-08-20] MEDS: TOPIRAMATE (TopAMAX) 25 MG TAB PO SCH ×2 (07:57→21:47)
[2022-08-20] MEDS: SUCRALFATE 1 GM TAB PO SCH ×2 (07:57→17:15)
[2022-08-20] MEDS: APIXABAN 5 MG TAB (ELIQUIS) PO SCH ×2 (07:58→21:47)
[2022-08-20] MEDS: OXcarbazepine 300 MG TAB PO SCH ×2 (07:58→21:47)
[2022-08-20] MEDS: ACETAMINOPHEN TAB 650MG DOSE (2X325MG) PO PRN (13:18)
[2022-08-20 16:14] VITALS: BP 116/58; TEMP 97.8; O2SAT 100
[2022-08-20] MEDS: LURASIDONE 20 MG TAB (LATUDA) PO SCH (18:14)
[2022-08-20] MEDS: ATORVASTATIN 10 MG TAB PO SCH (21:47)
[2022-08-20] MEDS: rOPINIRole 0.25 MG TAB(REQUIP) PO SCH (21:47)
[2022-08-20] MEDS: traZODone 50 MG TAB PO PRN (21:47)
[2022-08-21] MEDS: NAPROXEN 250 MG TAB PO PRN (02:20)
[2022-08-21 06:35] VITALS: BP 109/51; TEMP 98.2; O2SAT 98
[2022-08-21 08:12] VITALS: BP 124/58
[2022-08-21 08:13] VITALS: BP 124/58
[2022-08-21] MEDS: METOPROLOL TARTRATE 100MG TAB PO SCH (08:13)
[2022-08-21] MEDS: APIXABAN 5 MG TAB (ELIQUIS) PO SCH (08:15)
[2022-08-21] MEDS: OMEPRAZOLE 20MG CAP PO SCH (08:15)
[2022-08-21] MEDS: SUCRALFATE 1 GM TAB PO SCH (08:16)
[2022-08-21] MEDS: TOPIRAMATE (TopAMAX) 25 MG TAB PO SCH (08:16)
[2022-08-21] MEDS: OXcarbazepine 300 MG TAB PO SCH (08:16)
[2022-08-21] MEDS ORDERED: LOPR1TAB7 PO (09:06)
[2022-08-21] MEDS ORDERED: ROPI0.253 PO (09:06)
[2022-08-21] MEDS ORDERED: OMEP-173 PO (09:06)
[2022-08-21] MEDS ORDERED: ATOR1TAB19 PO (09:06)
[2022-08-21] MEDS ORDERED: SUCR1TA PO (09:06)
[2022-08-21] MEDS ORDERED: VENTAER INH (09:06)
[2022-08-21] MEDS ORDERED: TOPA1TAB PO (09:06)
[2022-08-21] MEDS ORDERED: TRAZ-252 PO (09:06)
[2022-08-21] MEDS ORDERED: ELIQ5TAB PO (09:06)
[2022-08-21] MEDS ORDERED: OXCA300T14 PO (09:06)
[2022-08-21] MEDS ORDERED: LATU20TA PO (09:06)
== END 2022-08-21 12:04 | disposition home or self-care (01) | DRG 753 ==
LOC: M ED 16:53 → M ED INP 20:29 → M PSY 21:37
PROVIDERS: ADMIT Psychiatry & Neurology Psychiatry; ATTEND Student in an Organized Health Care Education/Training Program
DX: F31.9 Bipolar disorder, unspecified (principal); E66.01 Morbid (severe) obesity due to excess calories; I48.0 Paroxysmal atrial fibrillation; R45.851 Suicidal ideations; G25.81 Restless legs syndrome; I10 Essential (primary) hypertension; F43.10 Post-traumatic stress disorder, unspecified; F41.9 Anxiety disorder, unspecified; G43.909 Migraine, unspecified, not intractable, without status migrainosus; M79.7 Fibromyalgia; M54.9 Dorsalgia, unspecified; E78.5 Hyperlipidemia, unspecified; Z59.01 Sheltered homelessness; G89.29 Other chronic pain; R74.01 Elevation of levels of liver transaminase levels; K21.9 Gastro-esophageal reflux disease without esophagitis; Z62.810 Personal history of physical and sexual abuse in childhood; Z79.01 Long term (current) use of anticoagulants; Z79.899 Other long term (current) drug therapy; Z88.1 Allergy status to other antibiotic agents; Z88.0 Allergy status to penicillin; Z88.2 Allergy status to sulfonamides; Z88.8 Allergy status to other drugs, medicaments and biological substances; Z81.8 Family history of other mental and behavioral disorders

== ENCOUNTER 2022-09-04 10:30 | Observation (INO) | payer OTHER ==
[~2022-09-04] VITALS: Ht 160 cm; Wt 115.8 kg
[~2022-09-04 10:30] MED LIST changes: +ATOR1TAB19 PO; +OXCA300T14 PO; +ROPI0.253 PO; +TOPA1TAB PO
[2022-09-04] MEDS ORDERED: SUCR1TAB56 PO (10:45)
[2022-09-04] MEDS ORDERED: HYDR-3363 PO (10:45)
[2022-09-04] MEDS ORDERED: DIPH50CA29 PO (10:45)
[2022-09-04 11:40] LABS: BASO % 0.6 % (0.0-1.0); EOS # 0.1 10^3/uL (0.0-0.5); EOS % 2.7 % (0.0-3.0); HEMATOCRIT 39.2 % (36.0-47.0); HEMOGLOBIN 13.1 g/dl (12.0-15.5); LYMPH % 42.3 % (24.0-44.0); MEAN CORPUSCULAR HEMOGLOBIN 30.5 pg (27.0-33.0); MEAN CORPUSCULAR HGB CONC 33.4 g/dl (32.0-36.5); MEAN CORPUSCULAR VOLUME 91.4 fl (80.0-96.0); MONO # 0.5 10^3/uL (0.0-0.8); MONO % 10.3 % (2.0-8.0); NEUTROPHILS # 2.1 10^3/uL (1.5-8.5); NEUTROPHILS % 43.7 % (36.0-66.0); PLATELET COUNT, AUTOMATED 183 10^3/uL (150-450); RED BLOOD COUNT 4.29 10^6/uL (4.00-5.40); WHITE BLOOD COUNT 4.8 10^3/uL (4.0-10.0)
[2022-09-04 12:05] LABS: INR 1.03; PROTHROMBIN TIME 13.7 SECONDS (12.5-14.5)
[2022-09-04 12:06] LABS: BLOOD UREA NITROGEN 9 MG/DL (9-23); CALCIUM LEVEL 8.7 MG/DL (8.5-10.1); CARBON DIOXIDE LEVEL 30 MMOL/L (20-31); CHLORIDE LEVEL 109 MMOL/L (98-107); CK-MB VALUE MASS < 1.0 NG/ML (<3.6); CPK CREATINE PHOSPHOKINASE 79 U/L (34-145); CREATININE FOR GFR 0.88 MG/DL (0.55-1.30); GLOMERULAR FILTRATION RATE > 60.0 (>51); GLUCOSE, FASTING 77 MG/DL (60-100); MB/CK RELATIVE INDEX 1.26 (< OR =4); POTASSIUM SERUM 3.9 MMOL/L (3.5-5.1); SODIUM LEVEL 141 MMOL/L (136-145)
[2022-09-04 12:08] LABS: THYROID STIMULATING HORMONE 2.003 uIU/ML (0.55-4.78)
[2022-09-04 12:15] LABS: AMPHETAMINES LEVEL URINE NEGATIVE (NEGATIVE); BARBITURATES URINE NEGATIVE (NEGATIVE); BENZODIAZEPINES URINE NEGATIVE (NEGATIVE); COCAINE METABOLITE URINE NEGATIVE (NEGATIVE); METHADONE URINE NEGATIVE (NEGATIVE); OPIATES URINE NEGATIVE (NEGATIVE); PHENCYCLIDINE URINE NEGATIVE (NEGATIVE)
[2022-09-04 12:16] LABS: CANNABINOIDS URINE NEGATIVE (NEGATIVE)
[2022-09-04] MEDS ORDERED: ISOVUE-370 76% 100ML VIAL As Ordered ONE (12:27)
[2022-09-04 12:29] LABS: RSV AMPLIFICATION NEGATIVE (NEGATIVE)
[2022-09-04 12:36] LABS: LIPASE 35 U/L (12-53)
[2022-09-04 12:37] LABS: ALBUMIN 3.1 G/DL (3.2-5.2); ALKALINE PHOSPHATASE 95 U/L (46-116); ALT/SGPT 18 U/L (7.0-40); AST/SGOT 16 U/L (<34); BILIRUBIN,DIRECT 0.1 MG/DL (<0.4); BILIRUBIN,TOTAL 0.4 MG/DL (0.3-1.2); TOTAL PROTEIN 5.8 G/DL (5.7-8.2)
[2022-09-04 13:09] LABS: CK-MB VALUE MASS < 1.0 NG/ML (<3.6)
[2022-09-04 13:12] LABS: CPK CREATINE PHOSPHOKINASE 75 U/L (34-145); MB/CK RELATIVE INDEX 1.33 (< OR =4)
[2022-09-04] MEDS ORDERED: MED REC IN PROGRESS XX SCH (14:20)
[2022-09-04] MEDS ORDERED: TOPI-254 PO (16:40)
[2022-09-04 16:50] VITALS: BP 137/71; TEMP 98.1; O2SAT 100
[2022-09-04] MEDS ORDERED: HOME MED LIST COMPLETE! XX SCH (17:10)
[2022-09-04] MEDS ORDERED: LURASIDONE 20 MG TAB (LATUDA) PO SCH (18:00)
[2022-09-04 18:30] VITALS: BP_SYST 135; BP_SYST 138; BP_SYST 140; BP_DIAS 72; BP_DIAS 73; BP_DIAS 98
[2022-09-04 20:05] VITALS: BP 115/82; TEMP 98.2; O2SAT 99
[2022-09-04] MEDS ORDERED: ONDANSETRON 4MG ORAL DISINTEGRATING TAB PO PRN (20:35)
[2022-09-04] MEDS: METOPROLOL TART 50 MG TAB PO SCH (20:43)
[2022-09-04] MEDS: SUCRALFATE 1 GM TAB PO SCH (20:43)
[2022-09-04] MEDS: APIXABAN 5 MG TAB (ELIQUIS) PO SCH (20:43)
[2022-09-04] MEDS: TOPIRAMATE (TopAMAX) 25 MG TAB PO SCH (20:43)
[2022-09-04] MEDS: ACETAMINOPHEN TAB 650MG DOSE (2X325MG) PO PRN (20:44)
[2022-09-04] MEDS ORDERED: rOPINIRole 0.25 MG TAB(REQUIP) PO SCH (21:00)
[2022-09-04] MEDS ORDERED: ATORVASTATIN 10 MG TAB PO SCH (21:00)
[2022-09-04] MEDS ORDERED: traZODone 50 MG TAB PO PRN (21:35)
[2022-09-05] MEDS ORDERED: diphenhydrAMINE 25MG CAP PO ONE (01:00)
[2022-09-05 05:44] VITALS: BP_SYST 118; BP_SYST 98; BP_DIAS 56; BP_DIAS 68; BP_DIAS 70
[2022-09-05 05:52] VITALS: BP 98/56; TEMP 97.9; O2SAT 94
[2022-09-05 06:06] LABS: BASO % 0.4 % (0.0-1.0); EOS # 0.1 10^3/uL (0.0-0.5); EOS % 2.5 % (0.0-3.0); HEMATOCRIT 38.5 % (36.0-47.0); HEMOGLOBIN 12.8 g/dl (12.0-15.5); LYMPH # 1.8 10^3/uL (1.5-5.0); LYMPH % 40.7 % (24.0-44.0); MEAN CORPUSCULAR HEMOGLOBIN 30.9 pg (27.0-33.0); MEAN CORPUSCULAR HGB CONC 33.2 g/dl (32.0-36.5); MONO # 0.4 10^3/uL (0.0-0.8); MONO % 9.8 % (2.0-8.0); NEUTROPHILS # 2.1 10^3/uL (1.5-8.5); NEUTROPHILS % 46.2 % (36.0-66.0); PLATELET COUNT, AUTOMATED 187 10^3/uL (150-450); RED BLOOD COUNT 4.14 10^6/uL (4.00-5.40); WHITE BLOOD COUNT 4.5 10^3/uL (4.0-10.0)
[2022-09-05 06:21] LABS: BLOOD UREA NITROGEN 9 MG/DL (9-23); CALCIUM LEVEL 8.8 MG/DL (8.5-10.1); CARBON DIOXIDE LEVEL 29 MMOL/L (20-31); CHLORIDE LEVEL 109 MMOL/L (98-107); CREATININE FOR GFR 0.94 MG/DL (0.55-1.30); GLOMERULAR FILTRATION RATE > 60.0 (>51); GLUCOSE, FASTING 94 MG/DL (60-100); POTASSIUM SERUM 3.8 MMOL/L (3.5-5.1); SODIUM LEVEL 141 MMOL/L (136-145)
[2022-09-05 09:00] VITALS: BP 129/71
[2022-09-05] MEDS: METOPROLOL TART 50 MG TAB PO SCH (09:00)
[2022-09-05] MEDS ORDERED: OMEPRAZOLE 20MG CAP PO SCH (09:00)
[2022-09-05] MEDS: SUCRALFATE 1 GM TAB PO SCH (09:03)
[2022-09-05] MEDS: TOPIRAMATE (TopAMAX) 25 MG TAB PO SCH (09:03)
[2022-09-05] MEDS: APIXABAN 5 MG TAB (ELIQUIS) PO SCH (09:03)
[2022-09-05] MEDS: ACETAMINOPHEN TAB 650MG DOSE (2X325MG) PO PRN (09:03)
[2022-09-05] MEDS ORDERED: OMEP-173 PO (11:57)
[2022-09-05] MEDS ORDERED: LOPR1TAB6 PO (11:57)
[2022-09-05] MEDS ORDERED: ELIQ5TAB PO (11:57)
[2022-09-05] MEDS ORDERED: ATOR1TAB19 PO (11:57)
[2022-09-05 14:00] VITALS: BP 108/59; TEMP 98.2; O2SAT 98
== END 2022-09-05 16:29 | disposition home or self-care (01) ==
LOC: M ED 10:30 → EDBD 10:30 → M ED INP 14:34 → ENRESERV 15:29 → M MSPAV 16:54
PROVIDERS: ADMIT Internal Medicine Nephrology; ATTEND Internal Medicine Nephrology
DX: R55 Syncope and collapse (principal); R32 Unspecified urinary incontinence; R19.7 Diarrhea, unspecified; I48.0 Paroxysmal atrial fibrillation; R00.1 Bradycardia, unspecified; G47.33 Obstructive sleep apnea (adult) (pediatric); F31.9 Bipolar disorder, unspecified; E66.01 Morbid (severe) obesity due to excess calories; Z68.41 Body mass index [BMI] 40.0-44.9, adult; F60.3 Borderline personality disorder; F41.9 Anxiety disorder, unspecified; M79.7 Fibromyalgia; G25.81 Restless legs syndrome; I10 Essential (primary) hypertension; J44.9 Chronic obstructive pulmonary disease, unspecified; E78.5 Hyperlipidemia, unspecified; K21.9 Gastro-esophageal reflux disease without esophagitis; K44.9 Diaphragmatic hernia without obstruction or gangrene; H40.9 Unspecified glaucoma; N32.81 Overactive bladder; M54.50 Low back pain, unspecified; F32.A Depression, unspecified; Z59.00 Homelessness unspecified; Z87.19 Personal history of other diseases of the digestive system; Z85.41 Personal history of malignant neoplasm of cervix uteri; Z88.8 Allergy status to other drugs, medicaments and biological substances; Z88.1 Allergy status to other antibiotic agents; Z88.2 Allergy status to sulfonamides; Z88.5 Allergy status to narcotic agent; Z88.0 Allergy status to penicillin; Z79.899 Other long term (current) drug therapy; Z79.01 Long term (current) use of anticoagulants; F17.290 Nicotine dependence, other tobacco product, uncomplicated
CPT/HCPCS: 36415; 70450; 71045; 71275; 72125; 74177; 80047; 80048; 80076; 80307; 82550; 82553; 83690; 83735; 84439; 84443; 85025; 85610; 85730; 87507; 87631; 93005; 93041; 93306; 93880; 94760; 99285; Q9967

== ENCOUNTER 2022-09-21 16:55 | Observation (INO) | payer OTHER ==
[~2022-09-21] VITALS: Ht 157.5 cm; Wt 113.6 kg
[~2022-09-21 16:55] MED LIST changes: +DICY-61 PO; -DICY10CA13 PO; +DIPH50CA29 PO; -ROPI0.253 PO; -ROPI0.5T3 PO; +ROPI0.5T33 PO; +ROPI5TAB19 PO
[2022-09-21 18:16] LABS: BASO % 0.2 % (0.0-1.0); EOS # 0.1 10^3/uL (0.0-0.5); EOS % 1.6 % (0.0-3.0); HEMATOCRIT 39.2 % (36.0-47.0); HEMOGLOBIN 13.4 g/dl (12.0-15.5); MEAN CORPUSCULAR HEMOGLOBIN 31.2 pg (27.0-33.0); MEAN CORPUSCULAR HGB CONC 34.2 g/dl (32.0-36.5); MEAN CORPUSCULAR VOLUME 91.2 fl (80.0-96.0); MONO # 0.4 10^3/uL (0.0-0.8); MONO % 7.5 % (2.0-8.0); NEUTROPHILS # 2.6 10^3/uL (1.5-8.5); NEUTROPHILS % 51.3 % (36.0-66.0); PLATELET COUNT, AUTOMATED 196 10^3/uL (150-450); WHITE BLOOD COUNT 5.1 10^3/uL (4.0-10.0)
[2022-09-21 18:45] LABS: CK-MB VALUE MASS < 1.0 NG/ML (<3.6)
[2022-09-21 18:48] LABS: BLOOD UREA NITROGEN 12 MG/DL (9-23); CALCIUM LEVEL 8.2 MG/DL (8.5-10.1); CARBON DIOXIDE LEVEL 26 MMOL/L (20-31); CHLORIDE LEVEL 110 MMOL/L (98-107); CPK CREATINE PHOSPHOKINASE 80 U/L (34-145); CREATININE FOR GFR 0.76 MG/DL (0.55-1.30); GLOMERULAR FILTRATION RATE > 60.0 (>51); GLUCOSE, FASTING 100 MG/DL (60-100); MB/CK RELATIVE INDEX 1.25 (< OR =4); POTASSIUM SERUM 4.3 MMOL/L (3.5-5.1); SODIUM LEVEL 142 MMOL/L (136-145)
[2022-09-21] MEDS ORDERED: MAALOX 30 ML SUSP *UDC PO ONE (19:00)
[2022-09-21 20:00] LABS: CK-MB VALUE MASS < 1.0 NG/ML (<3.6)
[2022-09-21 20:02] LABS: CPK CREATINE PHOSPHOKINASE 78 U/L (34-145); MB/CK RELATIVE INDEX 1.28 (< OR =4)
[2022-09-21] MEDS ORDERED: METOPROLOL TART 50 MG TAB PO SCH (21:00)
[2022-09-21] MEDS: TOPIRAMATE (TopAMAX) 25 MG TAB PO SCH (21:00)
[2022-09-21] MEDS ORDERED: LURASIDONE 20 MG TAB (LATUDA) PO SCH (21:00)
[2022-09-21] MEDS ORDERED: rOPINIRole 0.25 MG TAB(REQUIP) PO SCH (21:00)
[2022-09-21] MEDS ORDERED: ACETAMINOPHEN TAB 650MG DOSE (2X325MG) PO PRN (22:35)
[2022-09-21] MEDS ORDERED: NITROGLYCERIN 0.4MG SUBL TABLET SL PRN (22:35)
[2022-09-21 23:22] LABS: HEMATOCRIT 38.6 % (36.0-47.0); HEMOGLOBIN 12.9 g/dl (12.0-15.5)
[2022-09-22] MEDS ORDERED: ALBU8.5H INH (00:30)
[2022-09-22] MEDS ORDERED: LOPR1TAB7 PO (00:30)
[2022-09-22] MEDS ORDERED: ATOR1TAB19 PO (00:30)
[2022-09-22] MEDS ORDERED: ROPI0.5T33 PO (00:30)
[2022-09-22] MEDS ORDERED: DICL20GE TOP (00:30)
[2022-09-22] MEDS ORDERED: OMEP-173 PO (00:30)
[2022-09-22] MEDS ORDERED: ELIQ5TAB PO (00:30)
[2022-09-22] MEDS ORDERED: LATU20TA PO (00:30)
[2022-09-22] MEDS ORDERED: TRAZ-252 PO (00:31)
[2022-09-22] MEDS ORDERED: HOME MED LIST COMPLETE! XX SCH (00:35)
[2022-09-22 01:30] VITALS: BP 165/77; TEMP 97.9; O2SAT 99
[2022-09-22] MEDS ORDERED: APIXABAN 5 MG TAB (ELIQUIS) PO ONE (03:00)
[2022-09-22 03:28] VITALS: BP 165/85
[2022-09-22] MEDS: TOPIRAMATE (TopAMAX) 25 MG TAB PO SCH (03:28)
[2022-09-22] MEDS ORDERED: ANALGESIC BALM CRM 3OZ TOP PRN (04:00)
[2022-09-22 06:00] VITALS: BP 138/61; TEMP 97.9; O2SAT 97
[2022-09-22] MEDS ORDERED: OMEPRAZOLE 20MG CAP PO SCH (09:00)
[2022-09-22] MEDS ORDERED: APIXABAN 5 MG TAB (ELIQUIS) PO SCH (12:00)
[2022-09-22] MEDS ORDERED: ATORVASTATIN 10 MG TAB PO SCH (21:00)
== END 2022-09-22 07:46 | disposition left against medical advice (07) ==
LOC: M ED 16:55 → M ED INP 16:56 → M MSPAV 09-22 01:22
PROVIDERS: ADMIT Internal Medicine; ATTEND General Practice
DX: R07.89 Other chest pain (principal); R55 Syncope and collapse; Z79.899 Other long term (current) drug therapy; Z79.01 Long term (current) use of anticoagulants; F31.9 Bipolar disorder, unspecified; I48.0 Paroxysmal atrial fibrillation; M79.7 Fibromyalgia; J45.909 Unspecified asthma, uncomplicated; R94.31 Abnormal electrocardiogram [ECG] [EKG]; I10 Essential (primary) hypertension; E78.5 Hyperlipidemia, unspecified; F44.9 Dissociative and conversion disorder, unspecified; Z88.8 Allergy status to other drugs, medicaments and biological substances; Z88.1 Allergy status to other antibiotic agents; Z88.0 Allergy status to penicillin; Z88.2 Allergy status to sulfonamides; Z88.6 Allergy status to analgesic agent

== ENCOUNTER 2022-10-20 11:08 | Emergency (ER) | payer OTHER ==
[~2022-10-20] VITALS: Ht 157.5 cm; Wt 113.1 kg
[~2022-10-20 11:08] MED LIST changes: +ALBU8.5H INH; +DICL20GE TOP
[2022-10-20] MEDS ORDERED: NORCO, ANEXSIA 5/325MG TABLET (HYDROcodone/ACETAMINOPHEN) PO ONE (14:40)
[2022-10-20 16:19] LABS: BLOOD UREA NITROGEN 10 MG/DL (9-23); CALCIUM LEVEL 9.4 MG/DL (8.5-10.1); CARBON DIOXIDE LEVEL 25 MMOL/L (20-31); CHLORIDE LEVEL 109 MMOL/L (98-107); CREATININE FOR GFR 0.93 MG/DL (0.55-1.30); GLOMERULAR FILTRATION RATE > 60.0 (>51); GLUCOSE, FASTING 95 MG/DL (60-100); SODIUM LEVEL 142 MMOL/L (136-145)
[2022-10-20 18:52] LABS: BASO % 0.2 % (0.0-1.0); EOS # 0.1 10^3/uL (0.0-0.5); EOS % 1.4 % (0.0-3.0); HEMATOCRIT 48.2 % (36.0-47.0); LYMPH # 2.2 10^3/uL (1.5-5.0); LYMPH % 44.2 % (24.0-44.0); MEAN CORPUSCULAR HEMOGLOBIN 30.2 pg (27.0-33.0); MEAN CORPUSCULAR HGB CONC 33.2 g/dl (32.0-36.5); MEAN CORPUSCULAR VOLUME 91.1 fl (80.0-96.0); MONO # 0.4 10^3/uL (0.0-0.8); MONO % 7.3 % (2.0-8.0); NEUTROPHILS # 2.4 10^3/uL (1.5-8.5); NEUTROPHILS % 46.7 % (36.0-66.0); PLATELET COUNT, AUTOMATED 113 10^3/uL (150-450); RED BLOOD COUNT 5.29 10^6/uL (4.00-5.40)
[2022-10-20 19:11] VITALS: BP 145/70; TEMP 97.6; O2SAT 98
== END 2022-10-20 19:14 | disposition home or self-care (01) ==
LOC: M ED 11:08
DX: M79.661 Pain in right lower leg (principal); I48.91 Unspecified atrial fibrillation; Z86.718 Personal history of other venous thrombosis and embolism; Z88.0 Allergy status to penicillin; Z88.1 Allergy status to other antibiotic agents; Z88.8 Allergy status to other drugs, medicaments and biological substances; M79.7 Fibromyalgia; E78.00 Pure hypercholesterolemia, unspecified; K21.9 Gastro-esophageal reflux disease without esophagitis; K44.9 Diaphragmatic hernia without obstruction or gangrene; M54.50 Low back pain, unspecified; F41.9 Anxiety disorder, unspecified; F32.A Depression, unspecified; F31.9 Bipolar disorder, unspecified; Z79.51 Long term (current) use of inhaled steroids; Z79.899 Other long term (current) drug therapy; Z79.01 Long term (current) use of anticoagulants

== ENCOUNTER → 2022-11-03 | Outpatient (CLI) | payer OTHER | LOC: M PAIN 13:00 | PROVIDERS: ATTEND Nurse Practitioner Family | DX: M51.16 Intervertebral disc disorders with radiculopathy, lumbar region (principal); M79.7 Fibromyalgia; G43.909 Migraine, unspecified, not intractable, without status migrainosus; N39.46 Mixed incontinence; F32.A Depression, unspecified; E78.5 Hyperlipidemia, unspecified; E55.9 Vitamin D deficiency, unspecified; K21.9 Gastro-esophageal reflux disease without esophagitis; G89.4 Chronic pain syndrome; I50.9 Heart failure, unspecified; I48.91 Unspecified atrial fibrillation; J44.9 Chronic obstructive pulmonary disease, unspecified; Z87.891 Personal history of nicotine dependence; Z79.01 Long term (current) use of anticoagulants; Z79.899 Other long term (current) drug therapy; Z88.2 Allergy status to sulfonamides; Z88.8 Allergy status to other drugs, medicaments and biological substances; Z91.048 Other nonmedicinal substance allergy status ==

== ENCOUNTER 2022-12-19 13:58 | Day surgery (SDC) | payer OTHER ==
[~2022-12-19] VITALS: Ht 157.5 cm; Wt 118.8 kg
[~2022-12-19 13:58] MED LIST changes: +LATU80TA2 PO; +MECL-209 PO; -MECL1TAB31 PO; -OXYB5TAB10; +OXYB5TAB11; +TRIL1TAB PO; +UNRESOLVED CLARIFICATION ENTRY XX SCH
[2022-12-19] MEDS ORDERED: LR 1,000 ML IV SCH ×2 (14:25→15:00)
[2022-12-19] MEDS ORDERED: LIDOCAINE 2% 100MG/5ML SDV (FOR ANES.) As Ordered ONE (14:36)
[2022-12-19] MEDS ORDERED: fentaNYL 100 MCG/2 ML INJECTION As Ordered ONE (14:36)
[2022-12-19] MEDS ORDERED: MIDAZOLAM INJ 2MG/2ML VIAL As Ordered ONE (14:36)
[2022-12-19] MEDS ORDERED: propofoL 200 MG/20 ML VIAL As Ordered ONE (14:36)
[2022-12-19] MEDS ORDERED: ceFAZolin SOD 2 GM in IV 1 EA IV ONE (15:00)
[2022-12-19] MEDS ORDERED: LIDOCAINE 1% SDV 30ML VIAL As Ordered ONE (15:40)
[2022-12-19] MEDS ORDERED: ONDANSETRON 4MG 2ML VIAL As Ordered ONE (16:31)
[2022-12-19 17:32] VITALS: BP 138/73; TEMP 97.9; O2SAT 100
== END 2022-12-19 17:44 | disposition home or self-care (01) ==
LOC: M SDC 13:58
PROVIDERS: ATTEND Internal Medicine Cardiovascular Disease
DX: T82.111A Breakdown (mechanical) of cardiac pulse generator (battery), initial encounter (principal); Y71.2 Prosthetic and other implants, materials and accessory cardiovascular devices associated with adverse incidents; I48.0 Paroxysmal atrial fibrillation; I10 Essential (primary) hypertension; E78.00 Pure hypercholesterolemia, unspecified; F44.5 Conversion disorder with seizures or convulsions; Z79.899 Other long term (current) drug therapy; Z79.01 Long term (current) use of anticoagulants; Z88.0 Allergy status to penicillin; Z88.1 Allergy status to other antibiotic agents; Z88.8 Allergy status to other drugs, medicaments and biological substances; Z88.5 Allergy status to narcotic agent; Z88.2 Allergy status to sulfonamides
CPT/HCPCS: 33286; 76000; J0690; J2250; J2405; J3010

== ENCOUNTER 2023-01-07 14:41 | Emergency (ER) | payer OTHER ==
[~2023-01-07] VITALS: Ht 157.5 cm; Wt 119.1 kg
[~2023-01-07 14:41] MED LIST changes: -UNRESOLVED CLARIFICATION ENTRY XX SCH
[2023-01-07 17:00] VITALS: BP 135/72; TEMP 98.5
[2023-01-07] MEDS ORDERED: traMADol 50 MG TAB PO ONE (17:30)
[2023-01-07] MEDS ORDERED: TRAM50TA2 PO (17:34)
[2023-01-07 17:44] VITALS: O2SAT 98
== END 2023-01-07 17:49 | disposition home or self-care (01) ==
LOC: M ED 14:41
DX: G89.29 Other chronic pain (principal); M79.604 Pain in right leg; I50.9 Heart failure, unspecified; I10 Essential (primary) hypertension; E78.5 Hyperlipidemia, unspecified; M79.7 Fibromyalgia; Z87.442 Personal history of urinary calculi; Z86.718 Personal history of other venous thrombosis and embolism; Z79.01 Long term (current) use of anticoagulants; Z79.899 Other long term (current) drug therapy; Z88.0 Allergy status to penicillin; Z88.1 Allergy status to other antibiotic agents; Z88.8 Allergy status to other drugs, medicaments and biological substances

== ENCOUNTER 2023-02-05 18:14 | Emergency (ER) | payer OTHER ==
[~2023-02-05] VITALS: Ht 157.5 cm; Wt 118.2 kg
[2023-02-05] MEDS ORDERED: KETOROLAC 30 MG/ML 1ML VIAL IM ONE (23:00)
[2023-02-05 23:38] LABS: BASO % 0.4 % (0.0-1.0); EOS # 0.1 10^3/uL (0.0-0.5); HEMATOCRIT 41.1 % (36.0-47.0); HEMOGLOBIN 14.1 g/dl (12.0-15.5); LYMPH # 2.2 10^3/uL (1.5-5.0); LYMPH % 40.1 % (24.0-44.0); MEAN CORPUSCULAR HEMOGLOBIN 31.6 pg (27.0-33.0); MEAN CORPUSCULAR HGB CONC 34.3 g/dl (32.0-36.5); MEAN CORPUSCULAR VOLUME 92.2 fl (80.0-96.0); MONO # 0.5 10^3/uL (0.0-0.8); MONO % 8.5 % (2.0-8.0); NEUTROPHILS # 2.7 10^3/uL (1.5-8.5); NEUTROPHILS % 48.8 % (36.0-66.0); PLATELET COUNT, AUTOMATED 166 10^3/uL (150-450); RED BLOOD COUNT 4.46 10^6/uL (4.00-5.40); WHITE BLOOD COUNT 5.6 10^3/uL (4.0-10.0)
[2023-02-06] MEDS ORDERED: MACR100C43 PO (00:09)
[2023-02-06] MEDS ORDERED: NITROFURANTOIN (MACROBID) 100 MG CAP PO ONE (00:20)
[2023-02-06 00:22] VITALS: BP 122/69; TEMP 97.3; O2SAT 97
== END 2023-02-06 00:24 | disposition home or self-care (01) ==
LOC: M ED 18:14 → EDBD 18:14 → M ED 02-06 00:24
DX: N39.0 Urinary tract infection, site not specified (principal); G89.4 Chronic pain syndrome; I50.9 Heart failure, unspecified; I10 Essential (primary) hypertension; M79.7 Fibromyalgia; F44.5 Conversion disorder with seizures or convulsions; Z87.442 Personal history of urinary calculi; Z79.01 Long term (current) use of anticoagulants; Z79.899 Other long term (current) drug therapy; Z88.0 Allergy status to penicillin; Z88.1 Allergy status to other antibiotic agents; Z88.8 Allergy status to other drugs, medicaments and biological substances; Z88.2 Allergy status to sulfonamides
CPT/HCPCS: 80047; 81001; 85025; 87086; 96372; 99284; J1885

== ENCOUNTER → 2023-03-21 | Outpatient (REF) | payer OTHER ==
[~2023-03-21] MED LIST changes: +TOPI-21 PO; -TOPI-254 PO
== END ==
LOC: M LAB REF 16:04
PROVIDERS: ATTEND Nurse Practitioner Family
DX: B34.9 Viral infection, unspecified (principal)

== ENCOUNTER → 2023-04-04 | Outpatient (CLI) | payer OTHER | LOC: M RAD 13:45 | PROVIDERS: ATTEND Nurse Practitioner Family | DX: B34.9 Viral infection, unspecified (principal) ==

== ENCOUNTER → 2023-04-04 | Outpatient (CLI) | payer OTHER | LOC: M PAIN 14:00 | PROVIDERS: ATTEND Anesthesiology | DX: M53.3 Sacrococcygeal disorders, not elsewhere classified (principal); M54.50 Low back pain, unspecified; R10.2 Pelvic and perineal pain; M79.7 Fibromyalgia; G43.909 Migraine, unspecified, not intractable, without status migrainosus; F32.A Depression, unspecified; E78.5 Hyperlipidemia, unspecified; E55.9 Vitamin D deficiency, unspecified; K21.9 Gastro-esophageal reflux disease without esophagitis; G89.4 Chronic pain syndrome; J44.9 Chronic obstructive pulmonary disease, unspecified; Z87.891 Personal history of nicotine dependence; Z79.01 Long term (current) use of anticoagulants; Z79.899 Other long term (current) drug therapy; Z88.2 Allergy status to sulfonamides; Z88.8 Allergy status to other drugs, medicaments and biological substances; Z91.048 Other nonmedicinal substance allergy status ==

== ENCOUNTER → 2023-04-06 | Outpatient (CLI) | payer OTHER | LOC: M RAD 09:05 | PROVIDERS: ATTEND Anesthesiology | DX: M46.1 Sacroiliitis, not elsewhere classified (principal); M51.16 Intervertebral disc disorders with radiculopathy, lumbar region; M47.816 Spondylosis without myelopathy or radiculopathy, lumbar region ==

== ENCOUNTER → 2023-04-11 | Outpatient (CLI) | payer OTHER | LOC: M PAIN 13:15 | PROVIDERS: ATTEND Anesthesiology | DX: M51.16 Intervertebral disc disorders with radiculopathy, lumbar region (principal); M79.7 Fibromyalgia; G43.909 Migraine, unspecified, not intractable, without status migrainosus; F32.A Depression, unspecified; E78.5 Hyperlipidemia, unspecified; E55.9 Vitamin D deficiency, unspecified; I48.91 Unspecified atrial fibrillation; G89.4 Chronic pain syndrome; I10 Essential (primary) hypertension; J44.9 Chronic obstructive pulmonary disease, unspecified; Z87.891 Personal history of nicotine dependence; Z79.899 Other long term (current) drug therapy; Z88.2 Allergy status to sulfonamides; Z88.8 Allergy status to other drugs, medicaments and biological substances; Z91.048 Other nonmedicinal substance allergy status ==

== ENCOUNTER → 2023-04-25 | Outpatient (CLI) | payer OTHER ==
[~2023-04-25] MED LIST changes: -OXYB5TAB11; +OXYB5TAB14
== END ==
LOC: M PLAIMG 07:36
PROVIDERS: ATTEND Anesthesiology
DX: M51.16 Intervertebral disc disorders with radiculopathy, lumbar region (principal)

== ENCOUNTER → 2023-05-23 | Outpatient (CLI) | payer OTHER | LOC: M PAIN 10:30 | PROVIDERS: ATTEND Anesthesiology | DX: M79.18 Myalgia, other site (principal); M54.50 Low back pain, unspecified; M54.6 Pain in thoracic spine; G43.909 Migraine, unspecified, not intractable, without status migrainosus; F32.A Depression, unspecified; E78.5 Hyperlipidemia, unspecified; E55.9 Vitamin D deficiency, unspecified; I48.91 Unspecified atrial fibrillation; K21.9 Gastro-esophageal reflux disease without esophagitis; G89.4 Chronic pain syndrome; I10 Essential (primary) hypertension; J44.9 Chronic obstructive pulmonary disease, unspecified; Z87.891 Personal history of nicotine dependence; Z79.01 Long term (current) use of anticoagulants; Z79.899 Other long term (current) drug therapy; Z88.2 Allergy status to sulfonamides; Z88.8 Allergy status to other drugs, medicaments and biological substances ==

== ENCOUNTER → 2023-05-24 | Outpatient (REF) | payer OTHER ==
[2023-05-24 18:46] LABS: BASO % 0.2 % (0.0-1.0); EOS # 0.1 10^3/uL (0.0-0.5); EOS % 1.7 % (0.0-3.0); HEMATOCRIT 42.3 % (36.0-47.0); LYMPH # 2.1 10^3/uL (1.5-5.0); LYMPH % 44.6 % (24.0-44.0); MEAN CORPUSCULAR HEMOGLOBIN 31.6 pg (27.0-33.0); MEAN CORPUSCULAR HGB CONC 33.1 g/dl (32.0-36.5); MEAN CORPUSCULAR VOLUME 95.5 fl (80.0-96.0); MONO # 0.4 10^3/uL (0.0-0.8); MONO % 8.8 % (2.0-8.0); NEUTROPHILS # 2.1 10^3/uL (1.5-8.5); NEUTROPHILS % 44.5 % (36.0-66.0); PLATELET COUNT, AUTOMATED 190 10^3/uL (150-450); RED BLOOD COUNT 4.43 10^6/uL (4.00-5.40); WHITE BLOOD COUNT 4.8 10^3/uL (4.0-10.0)
[2023-05-24 19:12] LABS: ALBUMIN 3.4 G/DL (3.2-5.2); BILIRUBIN,TOTAL 0.3 MG/DL (0.3-1.2); CHOLESTEROL RISK RATIO 4.2 (<5); CREATININE FOR GFR 1.08 MG/DL (0.55-1.30); GLOMERULAR FILTRATION RATE 55.5 (>51); HDL CHOLESTEROL 41.9 MG/DL (>40); LDL CHOLESTEROL 91.5 MG/DL (<100); NON-HDL-C 134.1 MG/DL; POTASSIUM SERUM 3.9 MMOL/L (3.5-5.1); TOTAL PROTEIN 6.2 G/DL (5.7-8.2)
[2023-05-24 19:14] LABS: THYROID STIMULATING HORMONE 2.08 uIU/ML (0.55-4.78)
== END ==
LOC: M LAB REF 17:48
PROVIDERS: ATTEND Nurse Practitioner Family
DX: E66.01 Morbid (severe) obesity due to excess calories (principal)

== ENCOUNTER 2023-06-11 19:30 | Emergency (ER) | payer OTHER ==
[~2023-06-11] VITALS: Ht 157.5 cm; Wt 120.0 kg
[2023-06-11 21:39] LABS: BASO % 0.3 % (0.0-1.0); EOS # 0.2 10^3/uL (0.0-0.5); EOS % 2.9 % (0.0-3.0); HEMATOCRIT 43.1 % (36.0-47.0); HEMOGLOBIN 14.4 g/dl (12.0-15.5); LYMPH # 2.7 10^3/uL (1.5-5.0); LYMPH % 40.7 % (24.0-44.0); MEAN CORPUSCULAR HEMOGLOBIN 31.6 pg (27.0-33.0); MEAN CORPUSCULAR HGB CONC 33.4 g/dl (32.0-36.5); MEAN CORPUSCULAR VOLUME 94.5 fl (80.0-96.0); MONO # 0.4 10^3/uL (0.0-0.8); MONO % 6.4 % (2.0-8.0); NEUTROPHILS # 3.2 10^3/uL (1.5-8.5); NEUTROPHILS % 49.4 % (36.0-66.0); PLATELET COUNT, AUTOMATED 222 10^3/uL (150-450); RED BLOOD COUNT 4.56 10^6/uL (4.00-5.40); WHITE BLOOD COUNT 6.5 10^3/uL (4.0-10.0)
[2023-06-11 21:51] LABS: INR 1.02; PROTHROMBIN TIME 13.1 SECONDS (12.5-14.5)
[2023-06-11 22:01] LABS: LIPASE 47 U/L (12-53)
[2023-06-11 22:02] LABS: CK-MB VALUE MASS < 1.0 NG/ML (<3.6)
[2023-06-11 22:03] LABS: ALBUMIN 3.4 G/DL (3.2-5.2); ALKALINE PHOSPHATASE 130 U/L (46-116); ALT/SGPT 31 U/L (7.0-40); AST/SGOT 20 U/L (<34); BILIRUBIN,DIRECT < 0.1 MG/DL (<0.4); BILIRUBIN,TOTAL 0.2 MG/DL (0.3-1.2); BLOOD UREA NITROGEN 16 MG/DL (9-23); CALCIUM LEVEL 9.2 MG/DL (8.5-10.1); CARBON DIOXIDE LEVEL 28 MMOL/L (20-31); CHLORIDE LEVEL 110 MMOL/L (98-107); CREATININE FOR GFR 1.14 MG/DL (0.55-1.30); GLOMERULAR FILTRATION RATE 52.1 (>51); GLUCOSE, FASTING 103 MG/DL (60-100); POTASSIUM SERUM 4.1 MMOL/L (3.5-5.1); SODIUM LEVEL 144 MMOL/L (136-145); TOTAL PROTEIN 6.4 G/DL (5.7-8.2)
[2023-06-11 22:11] LABS: CPK CREATINE PHOSPHOKINASE 80 U/L (34-145); MB/CK RELATIVE INDEX 1.25 (< OR =4)
[2023-06-11 23:52] VITALS: BP 109/58; TEMP 97.4; O2SAT 96
[2023-06-12] MEDS: predniSONE 20 MG TAB PO ONE (00:10)
[2023-06-12] MEDS: IPRATROPIUM 0.5MG/ALBUTEROL 2.5MG INH SOL UD 3ML (DUONEB) NEB ONE (00:12)
== END 2023-06-12 00:35 | disposition home or self-care (01) ==
LOC: M ED 19:30
DX: J20.6 Acute bronchitis due to rhinovirus (principal); I10 Essential (primary) hypertension; J44.9 Chronic obstructive pulmonary disease, unspecified; E78.5 Hyperlipidemia, unspecified; Z86.79 Personal history of other diseases of the circulatory system; Z88.1 Allergy status to other antibiotic agents; Z88.2 Allergy status to sulfonamides; Z88.5 Allergy status to narcotic agent; Z88.8 Allergy status to other drugs, medicaments and biological substances; Z79.52 Long term (current) use of systemic steroids; Z79.01 Long term (current) use of anticoagulants; Z79.810 Long term (current) use of selective estrogen receptor modulators (SERMs); Z79.899 Other long term (current) drug therapy
CPT/HCPCS: 36415; 71045; 80053; 82248; 82550; 82553; 83690; 85025; 85610; 87486; 87581; 87633; 87798; 93005; 94640; 99284; J7512

== ENCOUNTER 2023-06-22 16:53 | Emergency (ER) | payer OTHER ==
[~2023-06-22] VITALS: Ht 157.5 cm; Wt 124.2 kg
[2023-06-22 20:47] VITALS: BP 127/64; TEMP 97.2; O2SAT 97
== END 2023-06-22 21:47 | disposition home or self-care (01) ==
LOC: M ED 16:53
DX: M79.602 Pain in left arm (principal); I48.91 Unspecified atrial fibrillation; J44.9 Chronic obstructive pulmonary disease, unspecified; I10 Essential (primary) hypertension; M79.7 Fibromyalgia; Z88.1 Allergy status to other antibiotic agents; Z88.8 Allergy status to other drugs, medicaments and biological substances; Z79.51 Long term (current) use of inhaled steroids; Z79.899 Other long term (current) drug therapy

== ENCOUNTER 2023-06-29 19:31 | Emergency (ER) | payer OTHER ==
[~2023-06-29] VITALS: Ht 157.5 cm; Wt 122.6 kg
[2023-06-29 21:01] VITALS: TEMP 97.8
[2023-06-29 21:19] LABS: BASO % 0.4 % (0.0-1.0); EOS # 0.1 10^3/uL (0.0-0.5); HEMATOCRIT 40.7 % (36.0-47.0); HEMOGLOBIN 13.8 g/dl (12.0-15.5); LYMPH # 2.3 10^3/uL (1.5-5.0); LYMPH % 42.3 % (24.0-44.0); MEAN CORPUSCULAR HEMOGLOBIN 31.9 pg (27.0-33.0); MEAN CORPUSCULAR HGB CONC 33.9 g/dl (32.0-36.5); MEAN CORPUSCULAR VOLUME 94.2 fl (80.0-96.0); MONO # 0.6 10^3/uL (0.0-0.8); MONO % 10.1 % (2.0-8.0); NEUTROPHILS # 2.4 10^3/uL (1.5-8.5); NEUTROPHILS % 44.8 % (36.0-66.0); PLATELET COUNT, AUTOMATED 151 10^3/uL (150-450); RED BLOOD COUNT 4.32 10^6/uL (4.00-5.40); WHITE BLOOD COUNT 5.4 10^3/uL (4.0-10.0)
[2023-06-29 21:37] LABS: INR 1.03; PROTHROMBIN TIME 13.2 SECONDS (12.5-14.5)
[2023-06-29 21:42] LABS: ALBUMIN 2.8 G/DL (3.2-5.2); ALKALINE PHOSPHATASE 106 U/L (46-116); ALT/SGPT 23 U/L (7.0-40); AST/SGOT 18 U/L (<34); BILIRUBIN,TOTAL 0.2 MG/DL (0.3-1.2); BLOOD UREA NITROGEN 20 MG/DL (9-23); CALCIUM LEVEL 8.6 MG/DL (8.5-10.1); CARBON DIOXIDE LEVEL 23 MMOL/L (20-31); CHLORIDE LEVEL 109 MMOL/L (98-107); CREATININE FOR GFR 0.99 MG/DL (0.55-1.30); GLOMERULAR FILTRATION RATE > 60.0 (>51); GLUCOSE, FASTING 119 MG/DL (60-100); POTASSIUM SERUM 3.9 MMOL/L (3.5-5.1); SODIUM LEVEL 142 MMOL/L (136-145); TOTAL PROTEIN 5.8 G/DL (5.7-8.2)
[2023-06-29] MEDS ORDERED: ISOVUE-370 76% 100ML VIAL As Ordered ONE (21:56)
[2023-06-29 23:00] VITALS: BP 121/59; O2SAT 98
[2023-06-29] MEDS ORDERED: AMLO1TAB24 PO (23:02)
[2023-06-29] MEDS ORDERED: ACET650T61 PO (23:02)
[2023-06-29] MEDS ORDERED: ROPI1TAB73 PO (23:02)
[2023-06-29] MEDS ORDERED: HOME MED LIST COMPLETE! XX SCH (23:05)
== END 2023-06-30 00:18 | disposition home or self-care (01) ==
LOC: M ED 19:31
DX: M79.602 Pain in left arm (principal); Z88.1 Allergy status to other antibiotic agents; Z88.8 Allergy status to other drugs, medicaments and biological substances; Z79.1 Long term (current) use of non-steroidal anti-inflammatories (NSAID); Z79.51 Long term (current) use of inhaled steroids; Z79.899 Other long term (current) drug therapy
CPT/HCPCS: 36415; 73206; 80053; 83735; 85025; 85610; 86140; 93971; 99284; Q9967

== ENCOUNTER → 2023-07-02 | Outpatient (CLI) | payer OTHER ==
[~2023-07-02] MED LIST changes: +ACET650T61 PO; +LURA60TA PO; +ROPI1TAB73 PO
== END ==
LOC: M PAIN 14:15
PROVIDERS: ATTEND Nurse Practitioner Family
DX: M79.12 Myalgia of auxiliary muscles, head and neck (principal); M79.18 Myalgia, other site; G89.4 Chronic pain syndrome; E78.5 Hyperlipidemia, unspecified; E55.9 Vitamin D deficiency, unspecified; I48.91 Unspecified atrial fibrillation; K21.9 Gastro-esophageal reflux disease without esophagitis; I10 Essential (primary) hypertension; J44.9 Chronic obstructive pulmonary disease, unspecified; Z87.891 Personal history of nicotine dependence; Z79.01 Long term (current) use of anticoagulants; Z79.899 Other long term (current) drug therapy
CPT/HCPCS: 99214; G0463

== ENCOUNTER 2023-07-06 20:22 | Observation (INO) | payer OTHER ==
[~2023-07-06] VITALS: Ht 157.5 cm; Wt 122.4 kg
[~2023-07-06 20:22] MED LIST changes: +DOXY-323 PO; -DOXY-443 PO; -LURA60TA PO; -NALO4SPR; +NALO4SPR3
[2023-07-06 21:58] LABS: BASO % 0.4 % (0.0-1.0); EOS # 0.1 10^3/uL (0.0-0.5); EOS % 2.3 % (0.0-3.0); HEMATOCRIT 40.1 % (36.0-47.0); HEMOGLOBIN 13.5 g/dl (12.0-15.5); LYMPH # 2.6 10^3/uL (1.5-5.0); LYMPH % 49.2 % (24.0-44.0); MEAN CORPUSCULAR HEMOGLOBIN 31.5 pg (27.0-33.0); MEAN CORPUSCULAR HGB CONC 33.7 g/dl (32.0-36.5); MEAN CORPUSCULAR VOLUME 93.7 fl (80.0-96.0); MONO # 0.5 10^3/uL (0.0-0.8); MONO % 8.8 % (2.0-8.0); NEUTROPHILS % 39.1 % (36.0-66.0); PLATELET COUNT, AUTOMATED 184 10^3/uL (150-450); RED BLOOD COUNT 4.28 10^6/uL (4.00-5.40); WHITE BLOOD COUNT 5.2 10^3/uL (4.0-10.0)
[2023-07-06 22:02] LABS: BLOOD UREA NITROGEN 20 MG/DL (9-23); CARBON DIOXIDE LEVEL 24 MMOL/L (20-31); CHLORIDE LEVEL 108 MMOL/L (98-107); CPK CREATINE PHOSPHOKINASE 101 U/L (34-145); CREATININE FOR GFR 0.95 MG/DL (0.55-1.30); FREE T4 0.86 NG/DL (0.89-1.76); GLOMERULAR FILTRATION RATE > 60.0 (>51); GLUCOSE, FASTING 102 MG/DL (60-100); POTASSIUM SERUM 5.1 MMOL/L (3.5-5.1); SODIUM LEVEL 140 MMOL/L (136-145); THYROID STIMULATING HORMONE 4.843 uIU/ML (0.55-4.78)
[2023-07-06 22:19] LABS: INR 1.1; PARTIAL THROMBOPLASTIN TIME 29.2 SECONDS (24.8-34.2); PROTHROMBIN TIME 13.9 SECONDS (12.5-14.5)
[2023-07-06 22:20] LABS: CK-MB VALUE MASS < 1.0 NG/ML (<3.6); MB/CK RELATIVE INDEX 0.99 (< OR =4)
[2023-07-06 22:22] LABS: CPK CREATINE PHOSPHOKINASE 80 U/L (34-145)
[2023-07-06 22:26] LABS: CK-MB VALUE MASS < 1.0 NG/ML (<3.6); MB/CK RELATIVE INDEX 1.25 (< OR =4)
[2023-07-06] MEDS ORDERED: NS 1,000 ML IV SCH (22:40)
[2023-07-06] MEDS: NS 500 ML IV ONE (23:04)
[2023-07-06] MEDS ORDERED: HOME MED LIST COMPLETE! XX SCH (23:20)
[2023-07-07] MEDS ORDERED: MAALOX 30 ML SUSP *UDC PO PRN (00:40)
[2023-07-07] MEDS ORDERED: MOM 30ML SUSPENSION UDC PO PRN (00:40)
[2023-07-07 01:16] VITALS: BP 126/62; TEMP 97.2; O2SAT 99
[2023-07-07] MEDS ORDERED: LURA60TA PO (01:22)
[2023-07-07] MEDS: ACETAMINOPHEN TAB 650MG DOSE (2X325MG) PO PRN (02:34)
[2023-07-07 05:52] VITALS: BP 126/67; TEMP 97.3; O2SAT 98
[2023-07-07] MEDS ORDERED: ALBUTEROL 90 MCG/ACT 8GM HFA INHALER INH PRN (08:40)
[2023-07-07] MEDS: METOPROLOL TART 25 MG TABLET PO SCH (09:27)
[2023-07-07] MEDS: OMEPRAZOLE 20MG CAP PO SCH (09:27)
[2023-07-07] MEDS: SUCRALFATE 1 GM TAB PO SCH (09:27)
[2023-07-07] MEDS: amLODIPine 5 MG TAB PO SCH (09:27)
[2023-07-07] MEDS: TOPIRAMATE (TopAMAX) 25 MG TAB PO SCH (09:28)
[2023-07-07] MEDS: APIXABAN 5 MG TAB (ELIQUIS) PO SCH (09:28)
[2023-07-07 11:04] LABS: PHOSPHORUS LEVEL 2.8 MG/DL (2.5-4.9)
[2023-07-07] MEDS: ONDANSETRON 4MG ORAL DISINTEGRATING TAB PO PRN (13:54)
[2023-07-07 14:00] VITALS: BP 126/66; TEMP 97.3; O2SAT 94
[2023-07-07 14:38] LABS: AMPHETAMINES LEVEL URINE NEGATIVE (NEGATIVE); BARBITURATES URINE NEGATIVE (NEGATIVE); BENZODIAZEPINES URINE NEGATIVE (NEGATIVE); CANNABINOIDS URINE NEGATIVE (NEGATIVE); COCAINE METABOLITE URINE NEGATIVE (NEGATIVE); METHADONE URINE NEGATIVE (NEGATIVE); OPIATES URINE NEGATIVE (NEGATIVE); PHENCYCLIDINE URINE NEGATIVE (NEGATIVE)
[2023-07-07] MEDS: LURASIDONE 20 MG TAB (LATUDA) PO SCH (18:10)
[2023-07-07 19:58] VITALS: BP 101/57; TEMP 97.3; O2SAT 93
[2023-07-07] MEDS: rOPINIRole 1MG TAB PO SCH (20:56)
[2023-07-07] MEDS: OXcarbazepine 300 MG TAB PO SCH (20:56)
[2023-07-07] MEDS: ACETAMINOPHEN 500 MG TAB PO PRN (21:47)
[2023-07-07] MEDS: methocarbamoL 500 MG TAB PO SCH (21:47)
[2023-07-08] MEDS: ACETAMINOPHEN TAB 650MG DOSE (2X325MG) PO SCH
[2023-07-08 04:34] VITALS: BP 110/62; TEMP 97.2; O2SAT 95
[2023-07-08 06:35] LABS: BASO % 0.3 % (0.0-1.0); EOS # 0.1 10^3/uL (0.0-0.5); EOS % 2.8 % (0.0-3.0); HEMATOCRIT 37.5 % (36.0-47.0); HEMOGLOBIN 12.7 g/dl (12.0-15.5); LYMPH # 1.7 10^3/uL (1.5-5.0); LYMPH % 43.4 % (24.0-44.0); MEAN CORPUSCULAR HEMOGLOBIN 32.1 pg (27.0-33.0); MEAN CORPUSCULAR HGB CONC 33.9 g/dl (32.0-36.5); MEAN CORPUSCULAR VOLUME 94.7 fl (80.0-96.0); MONO # 0.4 10^3/uL (0.0-0.8); MONO % 10.6 % (2.0-8.0); NEUTROPHILS # 1.7 10^3/uL (1.5-8.5); NEUTROPHILS % 42.6 % (36.0-66.0); PLATELET COUNT, AUTOMATED 167 10^3/uL (150-450); RED BLOOD COUNT 3.96 10^6/uL (4.00-5.40); WHITE BLOOD COUNT 3.9 10^3/uL (4.0-10.0)
[2023-07-08 07:07] LABS: ALBUMIN 2.8 G/DL (3.2-5.2); BILIRUBIN,TOTAL 0.2 MG/DL (0.3-1.2); CALCIUM LEVEL 8.8 MG/DL (8.5-10.1); CREATININE FOR GFR 1.01 MG/DL (0.55-1.30); GLOMERULAR FILTRATION RATE 59.9 (>51); MAGNESIUM LEVEL 1.8 MG/DL (1.8-2.4); POTASSIUM SERUM 4.2 MMOL/L (3.5-5.1); TOTAL PROTEIN 5.5 G/DL (5.7-8.2)
[2023-07-08] MEDS ORDERED: LIDOCAINE 5% (LIDODERM) PATCH TD SCH (09:00)
[2023-07-08 09:26] VITALS: BP 139/79
[2023-07-08] MEDS ORDERED: METO1TAB87 PO (11:23)
[2023-07-11 02:07] LABS: OXCARBAZEPINE 17 ug/mL (10-35); TOPIRAMATE LEVEL 3.7 ug/mL (2.0-25.0)
== END 2023-07-08 13:35 | disposition home or self-care (01) ==
LOC: M ED 20:22 → M ED INP 20:23 → M MSPAV 07-07 01:09
PROVIDERS: ADMIT Internal Medicine; ATTEND Hospitalist
DX: R55 Syncope and collapse (principal); S00.03XA Contusion of scalp, initial encounter; Y92.008 Other place in unspecified non-institutional (private) residence as the place of occurrence of the external cause; Y93.01 Activity, walking, marching and hiking; Y99.8 Other external cause status; I10 Essential (primary) hypertension; E78.5 Hyperlipidemia, unspecified; I48.0 Paroxysmal atrial fibrillation; E66.9 Obesity, unspecified; G89.4 Chronic pain syndrome; R42 Dizziness and giddiness; M54.2 Cervicalgia; R51.9 Headache, unspecified; R11.0 Nausea; M79.7 Fibromyalgia; F32.A Depression, unspecified; K21.9 Gastro-esophageal reflux disease without esophagitis; J44.9 Chronic obstructive pulmonary disease, unspecified; F60.3 Borderline personality disorder; F31.9 Bipolar disorder, unspecified; Z87.891 Personal history of nicotine dependence; Z82.49 Family history of ischemic heart disease and other diseases of the circulatory system; Z83.3 Family history of diabetes mellitus; Z82.3 Family history of stroke; Z80.9 Family history of malignant neoplasm, unspecified; Z83.2 Family history of diseases of the blood and blood-forming organs and certain disorders involving the immune mechanism; Z79.899 Other long term (current) drug therapy; Z79.01 Long term (current) use of anticoagulants; Z88.8 Allergy status to other drugs, medicaments and biological substances; Z88.1 Allergy status to other antibiotic agents; Z88.2 Allergy status to sulfonamides; Z88.0 Allergy status to penicillin

== ENCOUNTER → 2023-07-12 | Outpatient (CLI) | payer OTHER ==
[~2023-07-12] MED LIST changes: +LURA60TA PO
== END ==
LOC: M EKG 09:14
PROVIDERS: ATTEND Nurse Practitioner Family
DX: I48.20 Chronic atrial fibrillation, unspecified (principal)

== ENCOUNTER 2023-08-06 15:57 | Observation (INO) | payer OTHER ==
[~2023-08-06] VITALS: Ht 157.5 cm; Wt 128.0 kg
[2023-08-06 17:29] LABS: HEMATOCRIT 37.3 % (36.0-47.0); HEMOGLOBIN 12.6 g/dl (12.0-15.5); MEAN CORPUSCULAR HGB CONC 33.8 g/dl (32.0-36.5); MEAN CORPUSCULAR VOLUME 94.7 fl (80.0-96.0); PLATELET COUNT, AUTOMATED 185 10^3/uL (150-450); RED BLOOD COUNT 3.94 10^6/uL (4.00-5.40); WHITE BLOOD COUNT 4.9 10^3/uL (4.0-10.0)
[2023-08-06 17:57] LABS: THYROID STIMULATING HORMONE 2.628 uIU/ML (0.55-4.78)
[2023-08-06 18:11] LABS: C REACTIVE PROTEIN QUANTITATIV < 0.40 MG/DL (<1.0)
[2023-08-06 18:12] LABS: ALKALINE PHOSPHATASE 108 U/L (46-116); ALT/SGPT 27 U/L (7.0-40); AST/SGOT 22 U/L (<34); BILIRUBIN,DIRECT < 0.1 MG/DL (<0.4); BILIRUBIN,TOTAL 0.2 MG/DL (0.3-1.2); BLOOD UREA NITROGEN 11 MG/DL (9-23); CARBON DIOXIDE LEVEL 24 MMOL/L (20-31); CHLORIDE LEVEL 113 MMOL/L (98-107); CK-MB VALUE MASS < 1.0 NG/ML (<3.6); CREATININE FOR GFR 1.11 MG/DL (0.55-1.30); GLOMERULAR FILTRATION RATE 53.7 (>51); GLUCOSE, FASTING 86 MG/DL (60-100); POTASSIUM SERUM 3.9 MMOL/L (3.5-5.1); SODIUM LEVEL 143 MMOL/L (136-145); TOTAL PROTEIN 5.7 G/DL (5.7-8.2)
[2023-08-06 18:15] LABS: FREE T4 0.89 NG/DL (0.89-1.76)
[2023-08-06 18:16] LABS: ATYPICAL LYMPH 7 % (0-5); CPK CREATINE PHOSPHOKINASE 91 U/L (34-145); EOSINOPHILS 4 % (0-3); LYMPHOCYTES 39 % (16-44); MB/CK RELATIVE INDEX 1.09 (< OR =4); MONOCYTES 3 % (0-5); NEUTROPHILS 47 % (28-66); PLATELET ESTIMATE NORMAL (NORMAL)
[2023-08-06 19:29] LABS: CK-MB VALUE MASS < 1.0 NG/ML (<3.6); CPK CREATINE PHOSPHOKINASE 74 U/L (34-145); MB/CK RELATIVE INDEX 1.35 (< OR =4)
[2023-08-06] MEDS: NS 500 ML IV ONE (20:20)
[2023-08-06] MEDS: KETOROLAC 30 MG/ML 1ML VIAL IV ONE (20:22)
[2023-08-06] MEDS ORDERED: ALBUTEROL 90 MCG/ACT 8GM HFA INHALER INH PRN (21:45)
[2023-08-06] MEDS ORDERED: MOM 30ML SUSPENSION UDC PO PRN (21:45)
[2023-08-06] MEDS ORDERED: HOME MED LIST COMPLETE! XX SCH (21:45)
[2023-08-06] MEDS: SUCRALFATE 1 GM TAB PO SCH (22:48)
[2023-08-06] MEDS: APIXABAN 5 MG TAB (ELIQUIS) PO SCH (22:48)
[2023-08-06] MEDS: OXcarbazepine 300 MG TAB PO SCH (22:48)
[2023-08-06] MEDS: LURASIDONE 20 MG TAB (LATUDA) PO SCH (22:48)
[2023-08-06] MEDS: TOPIRAMATE (TopAMAX) 25 MG TAB PO SCH (22:49)
[2023-08-06 23:30] VITALS: BP 136/66; TEMP 97.5; O2SAT 99
[2023-08-07] MEDS: rOPINIRole 1MG TAB PO SCH (01:52)
[2023-08-07] MEDS: KETOROLAC 30 MG/ML 1ML VIAL IV ONE (01:53)
[2023-08-07 02:10] VITALS: BP 106/52; TEMP 97.5; O2SAT 95
[2023-08-07 05:50] VITALS: BP 110/57; TEMP 97.2; O2SAT 95
[2023-08-07 07:10] LABS: HEMATOCRIT 37.6 % (36.0-47.0); HEMOGLOBIN 12.8 g/dl (12.0-15.5); PLATELET COUNT, AUTOMATED 161 10^3/uL (150-450); WHITE BLOOD COUNT 3.4 10^3/uL (4.0-10.0)
[2023-08-07 07:37] LABS: BLOOD UREA NITROGEN 10 MG/DL (9-23); CALCIUM LEVEL 8.5 MG/DL (8.5-10.1); CARBON DIOXIDE LEVEL 23 MMOL/L (20-31); CHLORIDE LEVEL 114 MMOL/L (98-107); CREATININE FOR GFR 0.96 MG/DL (0.55-1.30); GLOMERULAR FILTRATION RATE > 60.0 (>51); GLUCOSE, FASTING 97 MG/DL (60-100); MAGNESIUM LEVEL 1.9 MG/DL (1.8-2.4); POTASSIUM SERUM 3.6 MMOL/L (3.5-5.1); SODIUM LEVEL 145 MMOL/L (136-145)
[2023-08-07] MEDS: OMEPRAZOLE 20MG CAP PO SCH (08:27)
[2023-08-07] MEDS: amLODIPine 5 MG TAB PO SCH (08:28)
[2023-08-07] MEDS: ATORVASTATIN 10 MG TAB PO SCH (08:28)
[2023-08-07] MEDS: ACETAMINOPHEN 650MG ER TAB (TYLENOL ARTHRITIS) PO PRN (08:28)
[2023-08-07 08:31] VITALS: BP_SYST 108; BP_SYST 112; BP_SYST 123; BP_DIAS 63; BP_DIAS 64; BP_DIAS 70
[2023-08-07 10:00] VITALS: BP 110/64; TEMP 98.1; O2SAT 97
[2023-08-07 14:00] VITALS: TEMP 98.1; O2SAT 97
== END 2023-08-07 14:39 | disposition home or self-care (01) ==
LOC: EDBD 15:57 → M ED 15:57 → M ED INP 21:43 → M MSPAV 23:26
PROVIDERS: ADMIT Internal Medicine; ATTEND Internal Medicine
DX: R55 Syncope and collapse (principal); I49.5 Sick sinus syndrome; I48.0 Paroxysmal atrial fibrillation; I10 Essential (primary) hypertension; J44.9 Chronic obstructive pulmonary disease, unspecified; E78.5 Hyperlipidemia, unspecified; N39.3 Stress incontinence (female) (male); R35.0 Frequency of micturition; R35.1 Nocturia; G89.4 Chronic pain syndrome; M79.7 Fibromyalgia; M54.50 Low back pain, unspecified; F32.A Depression, unspecified; F41.9 Anxiety disorder, unspecified; F31.9 Bipolar disorder, unspecified; F60.3 Borderline personality disorder; E55.9 Vitamin D deficiency, unspecified; K21.9 Gastro-esophageal reflux disease without esophagitis; Z98.890 Other specified postprocedural states; Z90.710 Acquired absence of both cervix and uterus; Z95.818 Presence of other cardiac implants and grafts; Z87.891 Personal history of nicotine dependence; Z82.49 Family history of ischemic heart disease and other diseases of the circulatory system; Z83.3 Family history of diabetes mellitus; Z80.3 Family history of malignant neoplasm of breast; Z80.41 Family history of malignant neoplasm of ovary; Z80.49 Family history of malignant neoplasm of other genital organs; Z88.8 Allergy status to other drugs, medicaments and biological substances; Z88.1 Allergy status to other antibiotic agents; Z88.0 Allergy status to penicillin; Z88.2 Allergy status to sulfonamides; Z79.899 Other long term (current) drug therapy; Z79.01 Long term (current) use of anticoagulants
CPT/HCPCS: 36415; 70450; 70486; 71045; 72125; 80048; 80076; 82550; 82553; 83605; 83735; 84439; 84443; 84484; 85025; 85027; 86140; 93005; 93041; 93306; 94760; 96361; 96374; 96376; 97116; 97161; 99285; J1885

== ENCOUNTER → 2023-08-29 | Outpatient (REF) | payer OTHER ==
[~2023-08-29] MED LIST changes: +ONDA-282 PO; -ONDA4TAB6 PO
== END ==
LOC: M LAB REF 12:34
PROVIDERS: ATTEND Nurse Practitioner Family
DX: R19.7 Diarrhea, unspecified (principal)

== ENCOUNTER → 2023-09-04 | Outpatient (CLI) | payer OTHER | LOC: M RAD 08:23 | PROVIDERS: ATTEND Nurse Practitioner Family | DX: R10.9 Unspecified abdominal pain (principal) ==

== ENCOUNTER → 2023-09-06 | Outpatient (CLI) | payer OTHER | LOC: M PAIN 16:00 | PROVIDERS: ATTEND Anesthesiology | DX: M46.1 Sacroiliitis, not elsewhere classified (principal); M51.16 Intervertebral disc disorders with radiculopathy, lumbar region; G89.29 Other chronic pain; M79.7 Fibromyalgia; G43.909 Migraine, unspecified, not intractable, without status migrainosus; F32.A Depression, unspecified; E78.5 Hyperlipidemia, unspecified; E55.9 Vitamin D deficiency, unspecified; I48.91 Unspecified atrial fibrillation; K21.9 Gastro-esophageal reflux disease without esophagitis; I10 Essential (primary) hypertension; J44.9 Chronic obstructive pulmonary disease, unspecified; Z79.01 Long term (current) use of anticoagulants; Z79.899 Other long term (current) drug therapy; Z87.891 Personal history of nicotine dependence; Z88.2 Allergy status to sulfonamides; Z88.8 Allergy status to other drugs, medicaments and biological substances; Z91.048 Other nonmedicinal substance allergy status | CPT/HCPCS: 76000; G0463 ==

== ENCOUNTER 2023-09-19 10:10 | Emergency (ER) | payer OTHER ==
[~2023-09-19] VITALS: Ht 157.5 cm; Wt 123.7 kg
[2023-09-19 10:11] VITALS: BP 136/76; TEMP 97.2; O2SAT 96
[2023-09-19] MEDS: ONDANSETRON 4MG ORAL DISINTEGRATING TAB PO ONE (11:43)
[2023-09-19] MEDS ORDERED: ONDA-282 PO (11:48)
[2023-09-19] MEDS: BACTRIM 160MG/800MG DS TAB PO ONE (12:08)
[2023-09-19] MEDS ORDERED: BACT800T5 PO (12:19)
== END 2023-09-19 13:22 | disposition home or self-care (01) ==
LOC: M ED 10:10
DX: M25.571 Pain in right ankle and joints of right foot (principal); L08.9 Local infection of the skin and subcutaneous tissue, unspecified; Z88.1 Allergy status to other antibiotic agents; Z88.2 Allergy status to sulfonamides; Z88.8 Allergy status to other drugs, medicaments and biological substances; Z79.1 Long term (current) use of non-steroidal anti-inflammatories (NSAID); Z79.51 Long term (current) use of inhaled steroids; Z79.899 Other long term (current) drug therapy

== ENCOUNTER 2023-09-24 18:37 | Emergency (ER) | payer OTHER ==
[~2023-09-24] VITALS: Ht 157.5 cm; Wt 125.1 kg
[2023-09-24 21:47] VITALS: TEMP 97.5
[2023-09-25 01:22] LABS: HEMATOCRIT 40.1 % (36.0-47.0); HEMOGLOBIN 13.5 g/dl (12.0-15.5); MEAN CORPUSCULAR HEMOGLOBIN 32.2 pg (27.0-33.0); MEAN CORPUSCULAR HGB CONC 33.7 g/dl (32.0-36.5); MEAN CORPUSCULAR VOLUME 95.7 fl (80.0-96.0); PLATELET COUNT, AUTOMATED 179 10^3/uL (150-450); RED BLOOD COUNT 4.19 10^6/uL (4.00-5.40); WHITE BLOOD COUNT 4.2 10^3/uL (4.0-10.0)
[2023-09-25 01:38] LABS: ALBUMIN 3.3 G/DL (3.2-5.2); BILIRUBIN,TOTAL 0.2 MG/DL (0.3-1.2); CALCIUM LEVEL 9.3 MG/DL (8.5-10.1); CREATININE FOR GFR 1.04 MG/DL (0.55-1.30); GLOMERULAR FILTRATION RATE 57.9 (>51); POTASSIUM SERUM 3.8 MMOL/L (3.5-5.1); TOTAL PROTEIN 6.2 G/DL (5.7-8.2)
[2023-09-25] MEDS: KETOROLAC 60MG 2ML VIAL IM ONE (01:44)
[2023-09-25] MEDS: dexAMETHasone 20MG/5ML VIAL IM ONE (01:44)
[2023-09-25] MEDS ORDERED: CEPH500C PO (04:44)
[2023-09-25 05:00] VITALS: O2SAT 93
[2023-09-25 05:02] VITALS: BP 139/78
[2023-09-25] MEDS: CEPHALEXIN 500 MG CAP PO ONE (05:09)
== END 2023-09-25 05:24 | disposition home or self-care (01) ==
LOC: M ED 18:37
DX: L03.115 Cellulitis of right lower limb (principal); I10 Essential (primary) hypertension; Z88.1 Allergy status to other antibiotic agents; Z88.2 Allergy status to sulfonamides; Z88.8 Allergy status to other drugs, medicaments and biological substances; Z79.1 Long term (current) use of non-steroidal anti-inflammatories (NSAID); Z79.51 Long term (current) use of inhaled steroids; Z79.899 Other long term (current) drug therapy
CPT/HCPCS: 73600; 80053; 85027; 96372; 99284; J1100; J1885

== ENCOUNTER → 2023-10-17 | Outpatient (CLI) | payer OTHER ==
[~2023-10-17] MED LIST changes: +CEPH500C PO
== END ==
LOC: M PAIN 11:30
PROVIDERS: ATTEND Anesthesiology
DX: M51.16 Intervertebral disc disorders with radiculopathy, lumbar region (principal); Z79.01 Long term (current) use of anticoagulants; Z79.1 Long term (current) use of non-steroidal anti-inflammatories (NSAID); Z79.810 Long term (current) use of selective estrogen receptor modulators (SERMs); M79.7 Fibromyalgia; Z87.891 Personal history of nicotine dependence; Z88.1 Allergy status to other antibiotic agents; Z88.6 Allergy status to analgesic agent; Z88.8 Allergy status to other drugs, medicaments and biological substances; Z88.9 Allergy status to unspecified drugs, medicaments and biological substances; Z91.048 Other nonmedicinal substance allergy status

== ENCOUNTER → 2023-10-24 | Outpatient (CLI) | payer OTHER | LOC: M SOG 07:56 | PROVIDERS: ATTEND Physician Assistant | DX: M25.471 Effusion, right ankle (principal) ==

== ENCOUNTER 2023-11-01 13:55 | Emergency (ER) | payer OTHER ==
[~2023-11-01] VITALS: Ht 157.5 cm; Wt 126.7 kg
[2023-11-01] MEDS ORDERED: KETOROLAC 30 MG/ML 1ML VIAL IV ONE (15:05)
[2023-11-01] MEDS ORDERED: HOME MED LIST COMPLETE! XX SCH (16:55)
[2023-11-01] MEDS: KETOROLAC 30 MG/ML 1ML VIAL IM ONE (17:07)
[2023-11-01 19:00] LABS: HEMATOCRIT 40.2 % (36.0-47.0); HEMOGLOBIN 13.6 g/dl (12.0-15.5); MEAN CORPUSCULAR HEMOGLOBIN 32.2 pg (27.0-33.0); MEAN CORPUSCULAR HGB CONC 33.8 g/dl (32.0-36.5); PLATELET COUNT, AUTOMATED 183 10^3/uL (150-450); RED BLOOD COUNT 4.23 10^6/uL (4.00-5.40)
[2023-11-01 19:22] LABS: ERYTHROCYTE SEDIMENTATION RATE 8 mm/hr (0-30)
[2023-11-01 19:27] LABS: ALBUMIN 3.4 G/DL (3.2-5.2); ALKALINE PHOSPHATASE 138 U/L (46-116); ALT/SGPT 30 U/L (7.0-40); AST/SGOT 24 U/L (<34); BILIRUBIN,TOTAL 0.2 MG/DL (0.3-1.2); BLOOD UREA NITROGEN 12 MG/DL (9-23); CALCIUM LEVEL 9.1 MG/DL (8.5-10.1); CARBON DIOXIDE LEVEL 26 MMOL/L (20-31); CHLORIDE LEVEL 110 MMOL/L (98-107); CREATININE FOR GFR 0.91 MG/DL (0.55-1.30); GLOMERULAR FILTRATION RATE > 60.0 (>51); GLUCOSE, FASTING 100 MG/DL (60-100); POTASSIUM SERUM 3.6 MMOL/L (3.5-5.1); SODIUM LEVEL 141 MMOL/L (136-145); TOTAL PROTEIN 6.3 G/DL (5.7-8.2)
[2023-11-01] MEDS: METHOCARBAMOL 1,000 MG/10 ML VIAL IM ONE (19:40)
[2023-11-01] MEDS: traMADol 50 MG TAB PO ONE (19:44)
[2023-11-01 19:47] LABS: ATYPICAL LYMPH 13 % (0-5); EOSINOPHILS 1 % (0-3); LYMPHOCYTES 46 % (16-44); MONOCYTES 3 % (0-5); NEUTROPHILS 37 % (28-66); PLATELET ESTIMATE NORMAL (NORMAL)
[2023-11-01] MEDS ORDERED: TRAM50TA2 PO (20:42)
[2023-11-01] MEDS ORDERED: METH-1164 PO (20:42)
[2023-11-01 21:13] VITALS: BP 124/65; TEMP 97.3; O2SAT 99
== END 2023-11-01 21:15 | disposition home or self-care (01) ==
LOC: M ED 13:55
DX: M79.7 Fibromyalgia (principal); I48.91 Unspecified atrial fibrillation; Z88.1 Allergy status to other antibiotic agents; Z88.2 Allergy status to sulfonamides; Z88.8 Allergy status to other drugs, medicaments and biological substances; Z79.1 Long term (current) use of non-steroidal anti-inflammatories (NSAID); Z79.899 Other long term (current) drug therapy
CPT/HCPCS: 36415; 80053; 85025; 85652; 86140; 96372; 97161; 99283; J1885; J2800

== ENCOUNTER → 2023-11-14 | Outpatient (REF) | payer OTHER ==
[~2023-11-14] MED LIST changes: +HYDR-3713 PO
[2023-11-14 12:14] LABS: CHOLESTEROL RISK RATIO 4.3 (<5); HDL CHOLESTEROL 47.6 MG/DL (>40); LDL CHOLESTEROL 104.4 MG/DL (<100); NON-HDL-C 157.4 MG/DL
[2023-11-14 13:23] LABS: HEMOGLOBIN A1c 5.1 % (4.0-6.0)
== END ==
LOC: M LAB REF 11:40
PROVIDERS: ATTEND Nurse Practitioner Family
DX: Z13.228 Encounter for screening for other metabolic disorders (principal); E78.5 Hyperlipidemia, unspecified

== ENCOUNTER 2023-11-26 18:47 | Emergency (ER) | payer OTHER ==
[~2023-11-26] VITALS: Ht 157.5 cm; Wt 128.8 kg
[~2023-11-26 18:47] MED LIST changes: -HYDR-3713 PO
[2023-11-27] MEDS ORDERED: HYDR-3713 PO (00:08)
[2023-11-27 00:11] VITALS: BP 181/77; TEMP 96.9; O2SAT 97
[2023-11-27] MEDS: NORCO, ANEXSIA 5/325MG TABLET (HYDROcodone/ACETAMINOPHEN) PO ONE (00:16)
== END 2023-11-27 01:20 | disposition home or self-care (01) ==
LOC: M ED 18:47
DX: M79.7 Fibromyalgia (principal); M54.50 Low back pain, unspecified; J44.9 Chronic obstructive pulmonary disease, unspecified; K44.9 Diaphragmatic hernia without obstruction or gangrene; K21.9 Gastro-esophageal reflux disease without esophagitis; F31.9 Bipolar disorder, unspecified; F60.3 Borderline personality disorder; Z90.49 Acquired absence of other specified parts of digestive tract; Z86.72 Personal history of thrombophlebitis; Z79.01 Long term (current) use of anticoagulants; Z79.02 Long term (current) use of antithrombotics/antiplatelets; Z79.1 Long term (current) use of non-steroidal anti-inflammatories (NSAID); Z79.899 Other long term (current) drug therapy; Z88.1 Allergy status to other antibiotic agents; Z88.2 Allergy status to sulfonamides; Z88.8 Allergy status to other drugs, medicaments and biological substances

== ENCOUNTER → 2023-11-30 | Outpatient (CLI) | payer OTHER ==
[~2023-11-30] MED LIST changes: +HYDR-3713 PO
== END ==
LOC: M PAIN 16:00
PROVIDERS: ATTEND Anesthesiology
DX: M53.3 Sacrococcygeal disorders, not elsewhere classified (principal); G89.4 Chronic pain syndrome; M54.50 Low back pain, unspecified; M79.7 Fibromyalgia; G43.909 Migraine, unspecified, not intractable, without status migrainosus; F32.A Depression, unspecified; E78.5 Hyperlipidemia, unspecified; I48.91 Unspecified atrial fibrillation; E55.9 Vitamin D deficiency, unspecified; I10 Essential (primary) hypertension; J44.9 Chronic obstructive pulmonary disease, unspecified; Z87.891 Personal history of nicotine dependence; Z79.01 Long term (current) use of anticoagulants; Z79.899 Other long term (current) drug therapy; Z88.2 Allergy status to sulfonamides; Z88.8 Allergy status to other drugs, medicaments and biological substances

== ENCOUNTER 2023-12-09 19:14 | Emergency (ER) | payer OTHER ==
[~2023-12-09] VITALS: Ht 157.5 cm; Wt 127.0 kg
[2023-12-09] MEDS ORDERED: PERC5TAB12 PO (21:53)
[2023-12-09 22:17] VITALS: BP 134/68; TEMP 97; O2SAT 90
[2023-12-09] MEDS: HYDROmorphone 2 MG TAB PO ONE (22:17)
== END 2023-12-09 22:28 | disposition home or self-care (01) ==
LOC: M ED 19:14
DX: M79.7 Fibromyalgia (principal); Z88.1 Allergy status to other antibiotic agents; Z88.2 Allergy status to sulfonamides; Z88.8 Allergy status to other drugs, medicaments and biological substances; Z79.1 Long term (current) use of non-steroidal anti-inflammatories (NSAID); Z79.01 Long term (current) use of anticoagulants; Z79.899 Other long term (current) drug therapy

== ENCOUNTER → 2023-12-14 | Outpatient (CLI) | payer OTHER ==
[~2023-12-14] MED LIST changes: -DOXY-323 PO; +DOXY-441 PO; +GABA-1172 PO; -GABA-282 PO; -SIME180C25 PO; +SIME1CAP4 PO
[2023-12-14 11:07] LABS: BASO % 0.3 % (0.0-1.0); EOS % 1.3 % (0.0-3.0); HEMATOCRIT 39.4 % (36.0-47.0); HEMOGLOBIN 13.3 g/dl (12.0-15.5); LYMPH # 1.2 10^3/uL (1.5-5.0); LYMPH % 40.2 % (24.0-44.0); MEAN CORPUSCULAR HEMOGLOBIN 31.4 pg (27.0-33.0); MEAN CORPUSCULAR HGB CONC 33.8 g/dl (32.0-36.5); MEAN CORPUSCULAR VOLUME 93.1 fl (80.0-96.0); MONO # 0.3 10^3/uL (0.0-0.8); MONO % 8.2 % (2.0-8.0); NEUTROPHILS # 1.5 10^3/uL (1.5-8.5); NEUTROPHILS % 49.7 % (36.0-66.0); RED BLOOD COUNT 4.23 10^6/uL (4.00-5.40); WHITE BLOOD COUNT 3.1 10^3/uL (4.0-10.0)
[2023-12-14 11:21] LABS: ERYTHROCYTE SEDIMENTATION RATE 7 mm/hr (0-30)
[2023-12-14 11:36] LABS: ALBUMIN 3.2 G/DL (3.2-5.2); ALKALINE PHOSPHATASE 124 U/L (46-116); ALT/SGPT 20 U/L (7.0-40); AST/SGOT 14 U/L (<34); BILIRUBIN,TOTAL 0.2 MG/DL (0.3-1.2); BLOOD UREA NITROGEN 11 MG/DL (9-23); CALCIUM LEVEL 9.6 MG/DL (8.5-10.1); CARBON DIOXIDE LEVEL 26 MMOL/L (20-31); CHLORIDE LEVEL 112 MMOL/L (98-107); CREATININE FOR GFR 0.97 MG/DL (0.55-1.30); GLOMERULAR FILTRATION RATE > 60.0 (>51); GLUCOSE, FASTING 98 MG/DL (60-100); POTASSIUM SERUM 3.8 MMOL/L (3.5-5.1); SODIUM LEVEL 144 MMOL/L (136-145); TOTAL PROTEIN 6.1 G/DL (5.7-8.2)
[2023-12-14 11:40] LABS: RHEUMATOID FACTOR QUANT 8.7 IU/ML (<14)
[2023-12-17 15:18] LABS: SSA SJOGRENS A <1.0 NEG AI (<1.0 NEG); SSB SJOGRENS B <1.0 NEG AI (<1.0 NEG)
[2023-12-18 01:23] LABS: CYCLIC CITRULLINATED PEPTIDE < 16 UNITS (<20)
[2023-12-18 13:02] LABS: ANA PATTERN Nuclear, Centromere (NEGATIVE); ANA PATTERN 2 Nuclear, Homogeneous; ANA SCREEN, IFA POSITIVE (NEGATIVE); ANA TITER > OR = 1:1280 titer (<1:40); ANA TITER 2 1:40 titer (NEGATIVE)
== END ==
LOC: M LAB 09:31
PROVIDERS: ATTEND Nurse Practitioner Family
DX: M79.7 Fibromyalgia (principal)

== ENCOUNTER 2024-01-10 18:21 | Emergency (ER) | payer OTHER ==
[~2024-01-10] VITALS: Ht 157.5 cm; Wt 125.0 kg
[2024-01-10] MEDS: diazePAM 10MG/2ML SYRINGE IV ONE (20:02)
[2024-01-10 20:07] LABS: BASO % 0.4 % (0.0-1.0); EOS # 0.1 10^3/uL (0.0-0.5); EOS % 1.5 % (0.0-3.0); HEMATOCRIT 44.1 % (36.0-47.0); LYMPH # 2.7 10^3/uL (1.5-5.0); LYMPH % 51.1 % (24.0-44.0); MEAN CORPUSCULAR HEMOGLOBIN 31.4 pg (27.0-33.0); MEAN CORPUSCULAR VOLUME 92.3 fl (80.0-96.0); MONO # 0.4 10^3/uL (0.0-0.8); MONO % 7.8 % (2.0-8.0); NEUTROPHILS % 38.8 % (36.0-66.0); PLATELET COUNT, AUTOMATED 209 10^3/uL (150-450); RED BLOOD COUNT 4.78 10^6/uL (4.00-5.40); WHITE BLOOD COUNT 5.2 10^3/uL (4.0-10.0)
[2024-01-10 20:31] LABS: BLOOD UREA NITROGEN 18 MG/DL (9-23); CALCIUM LEVEL 9.7 MG/DL (8.5-10.1); CARBON DIOXIDE LEVEL 24 MMOL/L (20-31); CHLORIDE LEVEL 110 MMOL/L (98-107); CREATININE FOR GFR 1.09 MG/DL (0.55-1.30); GLOMERULAR FILTRATION RATE 54.9 (>51); GLUCOSE, FASTING 94 MG/DL (60-100); MAGNESIUM LEVEL 2.2 MG/DL (1.8-2.4); POTASSIUM SERUM 3.9 MMOL/L (3.5-5.1); SODIUM LEVEL 141 MMOL/L (136-145)
[2024-01-10] MEDS: MORPHINE 4 MG/ML 1ML VIAL IV ONE (20:48)
[2024-01-10] MEDS: ONDANSETRON 4MG 2ML VIAL IV ONE (20:48)
[2024-01-10] MEDS: METOPROLOL 5 MG/5 ML VIAL IV SCH (22:30)
[2024-01-10 23:05] LABS: CK-MB VALUE MASS < 1.0 NG/ML (<3.6)
[2024-01-10 23:07] LABS: CPK CREATINE PHOSPHOKINASE 140 U/L (34-145); MB/CK RELATIVE INDEX 0.71 (< OR =4)
[2024-01-11] MEDS: HYDROmorphone 2 MG TAB PO ONE (01:00)
[2024-01-11] MEDS: PILL CUTTER 1 EACH XX PRN (01:00)
[2024-01-11] MEDS ORDERED: VALI2TAB PO ×2 (01:35→01:41)
[2024-01-11] MEDS ORDERED: DILA2TAB6 PO ×2 (01:35→01:41)
[2024-01-11 02:30] VITALS: BP 118/57; TEMP 97.2
[2024-01-11 02:35] VITALS: O2SAT 97
== END 2024-01-11 02:52 | disposition home or self-care (01) ==
LOC: M ED 18:21
DX: M79.7 Fibromyalgia (principal); I48.91 Unspecified atrial fibrillation; E78.5 Hyperlipidemia, unspecified; I10 Essential (primary) hypertension; K21.9 Gastro-esophageal reflux disease without esophagitis; F31.9 Bipolar disorder, unspecified; F32.A Depression, unspecified; Z88.1 Allergy status to other antibiotic agents; Z88.5 Allergy status to narcotic agent; Z88.8 Allergy status to other drugs, medicaments and biological substances; Z79.1 Long term (current) use of non-steroidal anti-inflammatories (NSAID); Z79.01 Long term (current) use of anticoagulants; Z79.899 Other long term (current) drug therapy
CPT/HCPCS: 72125; 72128; 72131; 80048; 81001; 82550; 82553; 83735; 84484; 85025; 93005; 93041; 96374; 96375; 99285; J2405; J3360

== ENCOUNTER 2024-01-16 21:31 | Emergency (ER) | payer OTHER ==
[~2024-01-16] VITALS: Ht 157.5 cm; Wt 128.3 kg
[~2024-01-16 21:31] MED LIST changes: +DILA2TAB6 PO; +META-10; +META-10 PO; -META1TAB22; -META1TAB22 PO; +NALO4SPR20; -NALO4SPR3; +NYST1POW3 TOP; -NYST1POW9 TOP; +VALI2TAB PO
[2024-01-17] MEDS: diazePAM 2 MG TAB PO ONE (06:26)
[2024-01-17] MEDS: PERCOCET 5MG/325MG TAB PO ONE (06:27)
[2024-01-17 07:23] VITALS: BP 153/71; TEMP 98.2; O2SAT 95
== END 2024-01-17 07:36 | disposition home or self-care (01) ==
LOC: M ED 21:31
DX: M54.50 Low back pain, unspecified (principal); K21.9 Gastro-esophageal reflux disease without esophagitis; I10 Essential (primary) hypertension; F32.A Depression, unspecified; F31.9 Bipolar disorder, unspecified; M79.7 Fibromyalgia; Z88.1 Allergy status to other antibiotic agents; Z88.2 Allergy status to sulfonamides; Z88.8 Allergy status to other drugs, medicaments and biological substances; Z79.1 Long term (current) use of non-steroidal anti-inflammatories (NSAID); Z79.01 Long term (current) use of anticoagulants; Z79.899 Other long term (current) drug therapy

== ENCOUNTER 2024-01-21 18:05 | Emergency (ER) | payer OTHER ==
[2024-01-21 18:32] VITALS: TEMP 98.1
[2024-01-21 18:37] LABS: BASO % 0.3 % (0.0-1.0); EOS # 0.1 10^3/uL (0.0-0.5); EOS % 1.5 % (0.0-3.0); HEMATOCRIT 42.3 % (36.0-47.0); HEMOGLOBIN 14.2 g/dl (12.0-15.5); LYMPH # 1.9 10^3/uL (1.5-5.0); LYMPH % 48.3 % (24.0-44.0); MEAN CORPUSCULAR HEMOGLOBIN 31.7 pg (27.0-33.0); MEAN CORPUSCULAR HGB CONC 33.6 g/dl (32.0-36.5); MEAN CORPUSCULAR VOLUME 94.4 fl (80.0-96.0); MONO # 0.3 10^3/uL (0.0-0.8); MONO % 8.4 % (2.0-8.0); NEUTROPHILS # 1.6 10^3/uL (1.5-8.5); PLATELET COUNT, AUTOMATED 183 10^3/uL (150-450); RED BLOOD COUNT 4.48 10^6/uL (4.00-5.40); WHITE BLOOD COUNT 3.9 10^3/uL (4.0-10.0)
[2024-01-21 18:51] LABS: INR 0.95; PARTIAL THROMBOPLASTIN TIME 28.1 SECONDS (24.8-34.2)
[2024-01-21] MEDS: diazePAM 2 MG TAB PO ONE (19:24)
[2024-01-21 20:00] VITALS: BP 161/89; O2SAT 98
== END 2024-01-21 21:04 | disposition home or self-care (01) ==
LOC: EDBD 18:05 → M ED 18:05
DX: I48.91 Unspecified atrial fibrillation (principal); J44.9 Chronic obstructive pulmonary disease, unspecified; I10 Essential (primary) hypertension; S06.0X1A Concussion with loss of consciousness of 30 minutes or less, initial encounter; M62.838 Other muscle spasm; Y92.9 Unspecified place or not applicable; Y93.9 Activity, unspecified; Y99.9 Unspecified external cause status; M79.7 Fibromyalgia; K21.9 Gastro-esophageal reflux disease without esophagitis; F41.9 Anxiety disorder, unspecified; F32.A Depression, unspecified; F31.9 Bipolar disorder, unspecified; Z87.891 Personal history of nicotine dependence; Z88.1 Allergy status to other antibiotic agents; Z88.2 Allergy status to sulfonamides; Z88.8 Allergy status to other drugs, medicaments and biological substances; Z79.1 Long term (current) use of non-steroidal anti-inflammatories (NSAID); Z79.01 Long term (current) use of anticoagulants; Z79.899 Other long term (current) drug therapy

== ENCOUNTER → 2024-01-23 | Outpatient (CLI) | payer OTHER ==
[~2024-01-23] MED LIST changes: +VITA200012 PO; +med rec comment
== END ==
LOC: M PAIN 17:00
PROVIDERS: ATTEND Anesthesiology
DX: M79.18 Myalgia, other site (principal); M79.10 Myalgia, unspecified site; G89.4 Chronic pain syndrome; M54.50 Low back pain, unspecified; G43.909 Migraine, unspecified, not intractable, without status migrainosus; F32.A Depression, unspecified; E78.5 Hyperlipidemia, unspecified; E55.9 Vitamin D deficiency, unspecified; I48.91 Unspecified atrial fibrillation; K21.9 Gastro-esophageal reflux disease without esophagitis; I10 Essential (primary) hypertension; R26.89 Other abnormalities of gait and mobility; N39.46 Mixed incontinence; J44.9 Chronic obstructive pulmonary disease, unspecified; Z87.891 Personal history of nicotine dependence; Z79.01 Long term (current) use of anticoagulants; Z79.899 Other long term (current) drug therapy; Z88.2 Allergy status to sulfonamides; Z88.8 Allergy status to other drugs, medicaments and biological substances; Z91.048 Other nonmedicinal substance allergy status

== ENCOUNTER 2024-01-30 20:45 | Emergency (ER) | payer OTHER ==
[~2024-01-30] VITALS: Ht 157.5 cm; Wt 127.3 kg
[~2024-01-30 20:45] MED LIST changes: -ADV250INH INH; +ADVA1AER9 INH; -VITA200012 PO; -med rec comment
[2024-01-30 20:58] VITALS: TEMP 97.4
[2024-01-30 22:44] LABS: BASO % 0.4 % (0.0-1.0); EOS # 0.1 10^3/uL (0.0-0.5); EOS % 1.6 % (0.0-3.0); HEMATOCRIT 36.9 % (36.0-47.0); HEMOGLOBIN 12.5 g/dl (12.0-15.5); LYMPH # 1.8 10^3/uL (1.5-5.0); LYMPH % 35.9 % (24.0-44.0); MEAN CORPUSCULAR HEMOGLOBIN 31.6 pg (27.0-33.0); MEAN CORPUSCULAR HGB CONC 33.9 g/dl (32.0-36.5); MEAN CORPUSCULAR VOLUME 93.2 fl (80.0-96.0); MONO # 0.4 10^3/uL (0.0-0.8); MONO % 7.3 % (2.0-8.0); NEUTROPHILS # 2.7 10^3/uL (1.5-8.5); NEUTROPHILS % 54.4 % (36.0-66.0); PLATELET COUNT, AUTOMATED 171 10^3/uL (150-450); RED BLOOD COUNT 3.96 10^6/uL (4.00-5.40)
[2024-01-30 22:50] LABS: CK-MB VALUE MASS < 1.0 NG/ML (<3.6); CPK CREATINE PHOSPHOKINASE 88 U/L (34-145); MB/CK RELATIVE INDEX 1.13 (< OR =4)
[2024-01-30 23:30] LABS: CK-MB VALUE MASS < 1.0 NG/ML (<3.6)
[2024-01-30 23:33] LABS: BLOOD UREA NITROGEN 13 MG/DL (9-23); CALCIUM LEVEL 8.8 MG/DL (8.5-10.1); CARBON DIOXIDE LEVEL 26 MMOL/L (20-31); CHLORIDE LEVEL 113 MMOL/L (98-107); CPK CREATINE PHOSPHOKINASE 91 U/L (34-145); CREATININE FOR GFR 1.01 MG/DL (0.55-1.30); GLOMERULAR FILTRATION RATE 59.9 (>51); GLUCOSE, FASTING 115 MG/DL (60-100); MB/CK RELATIVE INDEX 1.09 (< OR =4); POTASSIUM SERUM 3.4 MMOL/L (3.5-5.1); SODIUM LEVEL 146 MMOL/L (136-145)
[2024-01-30 23:35] LABS: FREE T4 1.05 NG/DL (0.89-1.76)
[2024-01-31] VITALS: BP 128/61; O2SAT 96
[2024-01-31 00:11] VITALS: O2SAT 89
[2024-01-31] MEDS ORDERED: VITA200012 PO (19:51)
[2024-01-31] MEDS ORDERED: med rec comment (20:04)
== END 2024-01-31 00:22 | disposition home or self-care (01) ==
LOC: EDBD 20:45 → EDUNIT# 20:45 → M ED 20:45
DX: R55 Syncope and collapse (principal); I25.2 Old myocardial infarction; I50.22 Chronic systolic (congestive) heart failure; M79.7 Fibromyalgia; F31.9 Bipolar disorder, unspecified; Z88.1 Allergy status to other antibiotic agents; Z88.2 Allergy status to sulfonamides; Z88.8 Allergy status to other drugs, medicaments and biological substances; Z79.1 Long term (current) use of non-steroidal anti-inflammatories (NSAID); Z79.01 Long term (current) use of anticoagulants; Z79.899 Other long term (current) drug therapy

== ENCOUNTER 2024-01-31 14:04 | Observation (INO) | payer OTHER ==
[~2024-01-31] VITALS: Ht 157.5 cm; Wt 130.6 kg
[~2024-01-31 14:04] MED LIST changes: +ADV250INH INH; -ADVA1AER9 INH
[2024-01-31 18:11] LABS: BASO % 0.2 % (0.0-1.0); EOS # 0.1 10^3/uL (0.0-0.5); EOS % 1.4 % (0.0-3.0); HEMOGLOBIN 13.4 g/dl (12.0-15.5); LYMPH # 1.7 10^3/uL (1.5-5.0); LYMPH % 41.5 % (24.0-44.0); MEAN CORPUSCULAR HEMOGLOBIN 32.1 pg (27.0-33.0); MEAN CORPUSCULAR HGB CONC 34.4 g/dl (32.0-36.5); MEAN CORPUSCULAR VOLUME 93.5 fl (80.0-96.0); MONO # 0.4 10^3/uL (0.0-0.8); MONO % 8.5 % (2.0-8.0); NEUTROPHILS % 47.9 % (36.0-66.0); PLATELET COUNT, AUTOMATED 182 10^3/uL (150-450); RED BLOOD COUNT 4.17 10^6/uL (4.00-5.40); WHITE BLOOD COUNT 4.1 10^3/uL (4.0-10.0)
[2024-01-31] MEDS: ONDANSETRON 4MG 2ML VIAL IV ONE (18:25)
[2024-01-31] MEDS: METHOCARBAMOL 1,000 MG/10 ML VIAL IV ONE (18:25)
[2024-01-31 18:36] LABS: BLOOD UREA NITROGEN 11 MG/DL (9-23); CALCIUM LEVEL 9.1 MG/DL (8.5-10.1); CARBON DIOXIDE LEVEL 26 MMOL/L (20-31); CHLORIDE LEVEL 110 MMOL/L (98-107); CK-MB VALUE MASS < 1.0 NG/ML (<3.6); CREATININE FOR GFR 0.96 MG/DL (0.55-1.30); GLOMERULAR FILTRATION RATE > 60.0 (>51); GLUCOSE, FASTING 87 MG/DL (60-100); SODIUM LEVEL 142 MMOL/L (136-145)
[2024-01-31 18:38] LABS: THYROID STIMULATING HORMONE 2.395 uIU/ML (0.55-4.78)
[2024-01-31 18:39] LABS: CPK CREATINE PHOSPHOKINASE 144 U/L (34-145); MB/CK RELATIVE INDEX 0.69 (< OR =4)
[2024-01-31] MEDS ORDERED: VITA200012 PO (19:51)
[2024-01-31] MEDS ORDERED: med rec comment (20:04)
[2024-01-31] MEDS ORDERED: HOME MED LIST COMPLETE! XX SCH (20:05)
[2024-01-31] MEDS ORDERED: MAALOX 30 ML SUSP *UDC PO PRN (21:55)
[2024-01-31] MEDS ORDERED: MOM 30ML SUSPENSION UDC PO PRN (21:55)
[2024-01-31 23:15] VITALS: BP 137/82; TEMP 97.6; O2SAT 97
[2024-02-01] VITALS (8 sets, daily range): BP systolic 112–146; BP diastolic 54–99; TEMP 97.9–98.5; O2SAT 95–99
[2024-02-01] MEDS: ACETAMINOPHEN 325 MG TAB PO PRN (00:42)
[2024-02-01 06:10] LABS: HEMATOCRIT 37.7 % (36.0-47.0); HEMOGLOBIN 12.5 g/dl (12.0-15.5); MEAN CORPUSCULAR HEMOGLOBIN 31.1 pg (27.0-33.0); MEAN CORPUSCULAR HGB CONC 33.2 g/dl (32.0-36.5); MEAN CORPUSCULAR VOLUME 93.8 fl (80.0-96.0); PLATELET COUNT, AUTOMATED 181 10^3/uL (150-450); RED BLOOD COUNT 4.02 10^6/uL (4.00-5.40); WHITE BLOOD COUNT 3.9 10^3/uL (4.0-10.0)
[2024-02-01 06:30] LABS: ALBUMIN 2.9 G/DL (3.2-5.2); ALKALINE PHOSPHATASE 113 U/L (35-104); ALT/SGPT 22 U/L (7.0-40); AST/SGOT 18 U/L (<34); BILIRUBIN,TOTAL 0.3 MG/DL (0.3-1.2); BLOOD UREA NITROGEN 11 MG/DL (9-23); CALCIUM LEVEL 9.3 MG/DL (8.5-10.1); CARBON DIOXIDE LEVEL 25 MMOL/L (20-31); CHLORIDE LEVEL 110 MMOL/L (98-107); GLOMERULAR FILTRATION RATE > 60.0 (>51); GLUCOSE, FASTING 119 MG/DL (60-100); POTASSIUM SERUM 3.7 MMOL/L (3.5-5.1); SODIUM LEVEL 143 MMOL/L (136-145); TOTAL PROTEIN 5.7 G/DL (5.7-8.2)
[2024-02-01] MEDS: amLODIPine 5 MG TAB PO SCH (09:38)
[2024-02-01] MEDS: SUCRALFATE 1 GM TAB PO SCH (09:38)
[2024-02-01] MEDS: methocarbamoL 500 MG TAB PO SCH (09:38)
[2024-02-01] MEDS: OMEPRAZOLE 20MG CAP PO SCH (09:38)
[2024-02-01] MEDS: ATORVASTATIN 10 MG TAB PO SCH (09:38)
[2024-02-01] MEDS: APIXABAN 5 MG TAB (ELIQUIS) PO SCH (09:38)
[2024-02-01] MEDS: ACETAMINOPHEN 650MG ER TAB (TYLENOL ARTHRITIS) PO PRN (09:46)
[2024-02-01] MEDS: rOPINIRole 1MG TAB PO SCH (21:50)
[2024-02-01] MEDS: TOPIRAMATE (TopAMAX) 25 MG TAB PO SCH (21:50)
[2024-02-01] MEDS: DULoxetine 30MG CAPSULE (CYMBALTA) PO SCH (21:51)
[2024-02-01] MEDS: LURASIDONE 20 MG TAB (LATUDA) PO SCH (21:51)
[2024-02-01] MEDS: OXcarbazepine 300 MG TAB PO SCH (21:51)
[2024-02-02 04:04] VITALS: BP 119/62; TEMP 98.2; O2SAT 97
[2024-02-02 06:00] LABS: BASO % 0.3 % (0.0-1.0); EOS # 0.1 10^3/uL (0.0-0.5); EOS % 2.2 % (0.0-3.0); HEMATOCRIT 37.3 % (36.0-47.0); HEMOGLOBIN 12.4 g/dl (12.0-15.5); LYMPH # 1.4 10^3/uL (1.5-5.0); LYMPH % 39.5 % (24.0-44.0); MEAN CORPUSCULAR HEMOGLOBIN 31.6 pg (27.0-33.0); MEAN CORPUSCULAR HGB CONC 33.2 g/dl (32.0-36.5); MEAN CORPUSCULAR VOLUME 94.9 fl (80.0-96.0); MONO # 0.4 10^3/uL (0.0-0.8); MONO % 9.8 % (2.0-8.0); NEUTROPHILS # 1.7 10^3/uL (1.5-8.5); NEUTROPHILS % 47.9 % (36.0-66.0); PLATELET COUNT, AUTOMATED 169 10^3/uL (150-450); RED BLOOD COUNT 3.93 10^6/uL (4.00-5.40); WHITE BLOOD COUNT 3.6 10^3/uL (4.0-10.0)
[2024-02-02 06:28] LABS: BLOOD UREA NITROGEN 17 MG/DL (9-23); CALCIUM LEVEL 9.3 MG/DL (8.5-10.1); CARBON DIOXIDE LEVEL 28 MMOL/L (20-31); CHLORIDE LEVEL 107 MMOL/L (98-107); CREATININE FOR GFR 0.99 MG/DL (0.55-1.30); GLOMERULAR FILTRATION RATE > 60.0 (>51); GLUCOSE, FASTING 101 MG/DL (60-100); POTASSIUM SERUM 4.1 MMOL/L (3.5-5.1); SODIUM LEVEL 142 MMOL/L (136-145)
[2024-02-02 07:42] VITALS: BP 123/61; TEMP 97.9; O2SAT 96
[2024-02-02 09:57] VITALS: BP 136/66
[2024-02-02] MEDS: LORazepam 2 MG/ML 1ML VIAL IV STA (11:11)
[2024-02-02] MEDS ORDERED: MECLIZINE 12.5 MG TAB PO PRN (12:00)
[2024-02-02 12:52] VITALS: BP 156/68; TEMP 97.6; O2SAT 95
[2024-02-02] MEDS ORDERED: MECL-136 PO (13:47)
== END 2024-02-02 15:08 | disposition home or self-care (01) ==
LOC: M ED 14:04 → M ED INP 21:53 → INTOOBSV 21:53 → M MSPAV 23:04 → M PCU 02-01 00:33
PROVIDERS: ADMIT Student in an Organized Health Care Education/Training Program; ATTEND Student in an Organized Health Care Education/Training Program
DX: R55 Syncope and collapse (principal); I48.91 Unspecified atrial fibrillation; G25.81 Restless legs syndrome; R42 Dizziness and giddiness; M79.7 Fibromyalgia; F39 Unspecified mood [affective] disorder; K21.9 Gastro-esophageal reflux disease without esophagitis; E78.5 Hyperlipidemia, unspecified; I10 Essential (primary) hypertension; N39.3 Stress incontinence (female) (male); R35.0 Frequency of micturition; R35.1 Nocturia; G89.4 Chronic pain syndrome; Z90.49 Acquired absence of other specified parts of digestive tract; Z90.79 Acquired absence of other genital organ(s); Z98.890 Other specified postprocedural states; Z87.891 Personal history of nicotine dependence; Z83.3 Family history of diabetes mellitus; Z82.49 Family history of ischemic heart disease and other diseases of the circulatory system; Z80.3 Family history of malignant neoplasm of breast; Z80.41 Family history of malignant neoplasm of ovary; Z88.8 Allergy status to other drugs, medicaments and biological substances; Z88.1 Allergy status to other antibiotic agents; Z88.2 Allergy status to sulfonamides; Z79.899 Other long term (current) drug therapy
CPT/HCPCS: 36415; 70551; 80048; 80053; 81001; 82550; 82553; 83735; 84443; 84484; 85025; 85027; 93005; 95819; 96374; 96375; 97116; 97161; 99285; J2060; J2405; J2800

== ENCOUNTER → 2024-03-21 | Outpatient (CLI) | payer OTHER ==
[~2024-03-21] MED LIST changes: -ADV250INH INH; +ADVA1AER9 INH; +MECL-136 PO; +VITA200012 PO; +med rec comment
== END ==
LOC: M PAIN 12:30
PROVIDERS: ATTEND Anesthesiology
DX: M79.18 Myalgia, other site (principal); G89.29 Other chronic pain; Z79.01 Long term (current) use of anticoagulants; Z79.899 Other long term (current) drug therapy; Z86.16 Personal history of COVID-19; Z80.8 Family history of malignant neoplasm of other organs or systems; Z87.891 Personal history of nicotine dependence; Z88.1 Allergy status to other antibiotic agents; Z88.8 Allergy status to other drugs, medicaments and biological substances; Z91.048 Other nonmedicinal substance allergy status

== ENCOUNTER 2024-03-31 13:16 | Emergency (ER) | payer OTHER ==
[~2024-03-31] VITALS: Ht 157.5 cm; Wt 129.1 kg
[2024-03-31 15:05] VITALS: BP 143/97; TEMP 98.2; O2SAT 98
== END 2024-03-31 15:42 | disposition home or self-care (01) ==
LOC: M ED 13:16
DX: L91.8 Other hypertrophic disorders of the skin (principal); I48.91 Unspecified atrial fibrillation; I50.22 Chronic systolic (congestive) heart failure; I25.2 Old myocardial infarction; Z87.891 Personal history of nicotine dependence; Z88.1 Allergy status to other antibiotic agents; Z88.2 Allergy status to sulfonamides; Z88.8 Allergy status to other drugs, medicaments and biological substances; Z79.1 Long term (current) use of non-steroidal anti-inflammatories (NSAID); Z79.01 Long term (current) use of anticoagulants; Z79.899 Other long term (current) drug therapy

== ENCOUNTER 2024-04-23 11:43 | Emergency (ER) | payer OTHER ==
[~2024-04-23] VITALS: Ht 157.5 cm; Wt 128.3 kg
[2024-04-23 16:30] VITALS: BP 133/80; TEMP 98.7; O2SAT 98
== END 2024-04-23 16:35 | disposition home or self-care (01) ==
LOC: M ED 11:43
DX: M79.631 Pain in right forearm (principal); J44.9 Chronic obstructive pulmonary disease, unspecified; I11.0 Hypertensive heart disease with heart failure; I50.22 Chronic systolic (congestive) heart failure; Z86.718 Personal history of other venous thrombosis and embolism; Z88.1 Allergy status to other antibiotic agents; Z88.2 Allergy status to sulfonamides; Z88.8 Allergy status to other drugs, medicaments and biological substances; Z79.1 Long term (current) use of non-steroidal anti-inflammatories (NSAID); Z79.01 Long term (current) use of anticoagulants; Z79.899 Other long term (current) drug therapy

== ENCOUNTER 2024-05-14 11:33 | Inpatient (IN) | payer OTHER ==
[~2024-05-14] VITALS: Ht 157.5 cm; Wt 131.4 kg
[2024-05-14 12:59] LABS: ETHYL ALCOHOL (ETHANOL) 0.007 % (0.000-0.010); SALICYLATE LEVEL < 3.0 MG/DL (<30)
[2024-05-14 13:02] LABS: THYROID STIMULATING HORMONE 3.341 uIU/ML (0.55-4.78)
[2024-05-14 13:15] LABS: HEMATOCRIT 42.3 % (36.0-47.0); HEMOGLOBIN 14.2 g/dl (12.0-15.5); MEAN CORPUSCULAR HEMOGLOBIN 31.1 pg (27.0-33.0); MEAN CORPUSCULAR HGB CONC 33.6 g/dl (32.0-36.5); MEAN CORPUSCULAR VOLUME 92.8 fl (80.0-96.0); PLATELET COUNT, AUTOMATED 197 10^3/uL (150-450); RED BLOOD COUNT 4.56 10^6/uL (4.00-5.40); WHITE BLOOD COUNT 5.6 10^3/uL (4.0-10.0)
[2024-05-14 13:46] LABS: ALKALINE PHOSPHATASE 128 U/L (35-104); ALT/SGPT 35 U/L (7.0-40); AST/SGOT 36 U/L (<34); BILIRUBIN,DIRECT < 0.1 MG/DL (<0.4); BILIRUBIN,TOTAL 0.3 MG/DL (0.3-1.2); BLOOD UREA NITROGEN 13 MG/DL (9-23); CALCIUM LEVEL 9.1 MG/DL (8.5-10.1); CARBON DIOXIDE LEVEL 21 MMOL/L (20-31); CHLORIDE LEVEL 110 MMOL/L (98-107); CREATININE FOR GFR 0.97 MG/DL (0.55-1.30); GLOMERULAR FILTRATION RATE > 60.0 (>51); GLUCOSE, FASTING 86 MG/DL (60-100); POTASSIUM SERUM 3.7 MMOL/L (3.5-5.1); SODIUM LEVEL 144 MMOL/L (136-145)
[2024-05-14 13:46] LABS: AMPHETAMINES LEVEL URINE NEGATIVE (NEGATIVE); BARBITURATES URINE NEGATIVE (NEGATIVE); COCAINE METABOLITE URINE NEGATIVE (NEGATIVE)
[2024-05-14 13:47] LABS: BENZODIAZEPINES URINE NEGATIVE (NEGATIVE); CANNABINOIDS URINE NEGATIVE (NEGATIVE); METHADONE URINE NEGATIVE (NEGATIVE); OPIATES URINE NEGATIVE (NEGATIVE); PHENCYCLIDINE URINE NEGATIVE (NEGATIVE)
[2024-05-14 14:02] LABS: ALBUMIN 3.5 G/DL (3.2-5.2)
[2024-05-14] MEDS ORDERED: HOME MED LIST COMPLETE! XX SCH (16:55)
[2024-05-14] MEDS ORDERED: MAALOX 30 ML SUSP *UDC PO PRN (18:15)
[2024-05-14] MEDS ORDERED: diphenhydrAMINE 25MG CAP PO PRN (18:15)
[2024-05-14] MEDS ORDERED: MOM 30ML SUSPENSION UDC PO PRN (18:15)
[2024-05-14] MEDS: ACETAMINOPHEN 325 MG TAB PO PRN (18:20)
[2024-05-14] MEDS ORDERED: LURASIDONE HCL 40MG TAB (LATUDA) PO SCH (20:00)
[2024-05-14 21:00] VITALS: BP 133/80; TEMP 97.4; O2SAT 96
[2024-05-14] MEDS: rOPINIRole 1MG TAB PO SCH (21:00)
[2024-05-14] MEDS ORDERED: TOPIRAMATE (TopAMAX) 25 MG TAB PO SCH (21:00)
[2024-05-14] MEDS ORDERED: OXcarbazepine 300 MG TAB PO SCH (21:00)
[2024-05-14] MEDS ORDERED: SUCRALFATE 1 GM TAB PO SCH (21:00)
[2024-05-14] MEDS: APIXABAN 5 MG TAB (ELIQUIS) PO SCH (21:00)
[2024-05-14] MEDS ORDERED: APIXABAN 5 MG TAB (ELIQUIS) PO SCH (21:00)
[2024-05-14] MEDS: OXcarbazepine 300 MG TAB PO SCH (21:00)
[2024-05-14] MEDS: traZODone 50 MG TAB PO PRN (21:04)
[2024-05-15 06:25] VITALS: BP 133/67; TEMP 98; O2SAT 98
[2024-05-15] MEDS ORDERED: LURASIDONE 20 MG TAB (LATUDA) PO SCH (08:00)
[2024-05-15] MEDS: ATORVASTATIN 10 MG TAB PO SCH (08:01)
[2024-05-15] MEDS: OMEPRAZOLE 20MG CAP PO SCH (08:01)
[2024-05-15] MEDS: amLODIPine 5 MG TAB PO SCH (08:01)
[2024-05-15] MEDS ORDERED: VITAMIN D 1,000 INTERNATIONAL UNITS TABLET PO SCH (09:00)
[2024-05-15] MEDS ORDERED: amLODIPine 5 MG TAB PO SCH (09:00)
[2024-05-15] MEDS ORDERED: OMEPRAZOLE 20MG CAP PO SCH (09:00)
[2024-05-15] MEDS ORDERED: ATORVASTATIN 20 MG TAB PO SCH (09:00)
[2024-05-15] MEDS: SUCRALFATE 1 GM TAB PO SCH (11:04)
[2024-05-15] MEDS: LOPERAMIDE 2 MG CAPLET PO PRN (13:30)
[2024-05-15] MEDS: FLUoxetine 20MG CAP PO SCH (13:30)
[2024-05-15] MEDS: LURASIDONE 20 MG TAB (LATUDA) PO SCH (17:48)
[2024-05-15 17:51] VITALS: BP 131/87; TEMP 97.6; O2SAT 95
[2024-05-15] MEDS: ACETAMINOPHEN 650MG ER TAB (TYLENOL ARTHRITIS) PO PRN (21:06)
[2024-05-16 17:35] VITALS: BP 133/98; TEMP 97; O2SAT 96
[2024-05-17 06:51] VITALS: BP 128/78; TEMP 96.9; O2SAT 95
[2024-05-17 08:07] VITALS: BP 144/89
[2024-05-17 15:50] VITALS: BP 127/85; TEMP 97.7; O2SAT 99
[2024-05-17 19:00] LABS: CALCIUM LEVEL 9.1 MG/DL (8.5-10.1); CREATININE FOR GFR 1.1 MG/DL (0.55-1.30); GLOMERULAR FILTRATION RATE 54.1 (>51); MAGNESIUM LEVEL 2.1 MG/DL (1.8-2.4); POTASSIUM SERUM 3.7 MMOL/L (3.5-5.1)
[2024-05-17] MEDS: PRAZOSIN 1 MG CAP PO SCH (20:52)
[2024-05-18 06:42] VITALS: BP 97/50; TEMP 96.8; O2SAT 94
[2024-05-18 16:00] VITALS: BP 134/85; TEMP 97.4; O2SAT 98
[2024-05-18] MEDS: rOPINIRole 2MG TAB PO SCH (21:32)
[2024-05-19 06:54] VITALS: BP 117/55; TEMP 98.3; O2SAT 96
[2024-05-19 08:10] VITALS: BP 132/85
[2024-05-19 15:34] VITALS: BP 132/75; TEMP 97.8; O2SAT 95
[2024-05-20 06:25] VITALS: BP 150/83; TEMP 97.5; O2SAT 98
[2024-05-20 17:23] VITALS: BP 153/72; TEMP 97; O2SAT 96
[2024-05-20] MEDS: PRAZOSIN 1 MG CAP PO SCH (20:58)
[2024-05-21 06:29] VITALS: BP 155/70; TEMP 98.2; O2SAT 95
[2024-05-21 15:07] VITALS: BP 128/84; TEMP 97.6; O2SAT 97
[2024-05-22 06:25] VITALS: BP 124/72; TEMP 97.1; O2SAT 99
[2024-05-22 08:05] VITALS: BP 130/76
[2024-05-22] MEDS: FLUoxetine 20MG CAP PO SCH (08:09)
[2024-05-22 15:12] VITALS: BP 134/72; TEMP 97.4; O2SAT 97
[2024-05-23 06:38] VITALS: BP 134/79; TEMP 97; O2SAT 95
[2024-05-23 16:50] VITALS: BP 131/73; TEMP 97; O2SAT 98
[2024-05-24 06:35] VITALS: BP 137/76; TEMP 97.2; O2SAT 95
[2024-05-24 15:22] VITALS: BP 123/66; TEMP 97.3; O2SAT 93
[2024-05-24] MEDS: NORCO, ANEXSIA 5/325MG TABLET (HYDROcodone/ACETAMINOPHEN) PO PRN (17:20)
[2024-05-24] MEDS: APIXABAN 5 MG TAB (ELIQUIS) PO SCH (20:22)
[2024-05-25 06:40] VITALS: BP 119/60; TEMP 97; O2SAT 94
[2024-05-25 15:09] VITALS: BP 126/65; TEMP 97.1; O2SAT 97
[2024-05-26 06:52] VITALS: BP 129/81; TEMP 97.9; O2SAT 95
[2024-05-26] MEDS: ONDANSETRON 4MG ORAL DISINTEGRATING TAB PO ONE (12:44)
[2024-05-26 13:55] LABS: BLOOD UREA NITROGEN 13 MG/DL (9-23); CALCIUM LEVEL 8.3 MG/DL (8.5-10.1); CARBON DIOXIDE LEVEL 21 MMOL/L (20-31); CHLORIDE LEVEL 109 MMOL/L (98-107); CREATININE FOR GFR 0.93 MG/DL (0.55-1.30); GLOMERULAR FILTRATION RATE > 60.0 (>51); GLUCOSE, FASTING 95 MG/DL (60-100); MAGNESIUM LEVEL 1.9 MG/DL (1.8-2.4); POTASSIUM SERUM 4.5 MMOL/L (3.5-5.1); SODIUM LEVEL 142 MMOL/L (136-145)
[2024-05-26 16:54] VITALS: BP 118/56; TEMP 98.4; O2SAT 96
[2024-05-26] MEDS: ONDANSETRON 4MG ORAL DISINTEGRATING TAB PO PRN (21:39)
[2024-05-27 16:50] VITALS: BP 130/78; TEMP 97.3; O2SAT 95
[2024-05-27] MEDS: LOPERAMIDE 2 MG CAPLET PO PRN (17:50)
[2024-05-28 06:34] VITALS: BP 128/72; TEMP 97; O2SAT 96
[2024-05-28 15:02] VITALS: BP 107/52; TEMP 97.6; O2SAT 97
[2024-05-28] MEDS ORDERED: LATU20TA PO (22:47)
[2024-05-28] MEDS ORDERED: HYDR-3363 PO (22:47)
[2024-05-28] MEDS ORDERED: PRAZ1CAP PO (22:47)
[2024-05-28] MEDS ORDERED: OXCA300T14 PO (22:47)
[2024-05-28] MEDS ORDERED: AMLO1TAB24 PO (22:47)
[2024-05-28] MEDS ORDERED: FLUO-365 PO (22:47)
[2024-05-28] MEDS ORDERED: ATOR1TAB19 PO (22:47)
[2024-05-28] MEDS ORDERED: TRAZ-252 PO (22:47)
[2024-05-28] MEDS ORDERED: ELIQ5TAB PO (22:47)
[2024-05-28] MEDS ORDERED: ROPI2TAB46 PO (22:47)
[2024-05-29 06:28] VITALS: BP 131/72; TEMP 96.9; O2SAT 100
[2024-05-29 08:11] VITALS: BP 131/72
[2024-05-29 09:35] VITALS: BP 131/72; TEMP 96.9; O2SAT 100
== END 2024-05-29 11:30 | disposition home or self-care (01) | DRG 753 ==
LOC: M ED 11:33 → M ED INP 18:13 → M PSY 20:05
PROVIDERS: ADMIT Psychiatry & Neurology Neurology; ATTEND Psychiatry & Neurology Neurology
DX: F31.81 Bipolar II disorder (principal); A08.11 Acute gastroenteropathy due to Norwalk agent; I48.0 Paroxysmal atrial fibrillation; R45.851 Suicidal ideations; I10 Essential (primary) hypertension; G25.81 Restless legs syndrome; F41.9 Anxiety disorder, unspecified; F60.3 Borderline personality disorder; F43.10 Post-traumatic stress disorder, unspecified; M79.7 Fibromyalgia; J44.9 Chronic obstructive pulmonary disease, unspecified; Z81.8 Family history of other mental and behavioral disorders; Z62.810 Personal history of physical and sexual abuse in childhood; Z79.01 Long term (current) use of anticoagulants; Z79.899 Other long term (current) drug therapy; Z88.1 Allergy status to other antibiotic agents; Z88.2 Allergy status to sulfonamides; Z88.8 Allergy status to other drugs, medicaments and biological substances; Z91.51 Personal history of suicidal behavior; N39.3 Stress incontinence (female) (male); E78.5 Hyperlipidemia, unspecified; K21.9 Gastro-esophageal reflux disease without esophagitis; G89.4 Chronic pain syndrome; M54.50 Low back pain, unspecified; Z90.79 Acquired absence of other genital organ(s); Z90.49 Acquired absence of other specified parts of digestive tract; F17.200 Nicotine dependence, unspecified, uncomplicated

== ENCOUNTER → 2024-07-22 | Outpatient (REF) | payer OTHER, MEDICAID ==
[~2024-07-22] MED LIST changes: +FLUO-365 PO; +PRAZ1CAP PO; +ROPI2TAB46 PO
[2024-07-22 14:01] LABS: BASO % 0.3 % (0.0-1.0); EOS # 0.1 10^3/uL (0.0-0.5); EOS % 1.7 % (0.0-3.0); HEMATOCRIT 40.1 % (36.0-47.0); HEMOGLOBIN 13.5 g/dl (12.0-15.5); LYMPH # 1.3 10^3/uL (1.5-5.0); LYMPH % 43.2 % (24.0-44.0); MEAN CORPUSCULAR HEMOGLOBIN 29.9 pg (27.0-33.0); MEAN CORPUSCULAR HGB CONC 33.7 g/dl (32.0-36.5); MEAN CORPUSCULAR VOLUME 88.7 fl (80.0-96.0); MONO # 0.3 10^3/uL (0.0-0.8); MONO % 9.2 % (2.0-8.0); NEUTROPHILS # 1.3 10^3/uL (1.5-8.5); NEUTROPHILS % 45.3 % (36.0-66.0); PLATELET COUNT, AUTOMATED 173 10^3/uL (150-450); RED BLOOD COUNT 4.52 10^6/uL (4.00-5.40); WHITE BLOOD COUNT 2.9 10^3/uL (4.0-10.0)
[2024-07-22 14:35] LABS: TOTAL 25(OH) VITAMIN D 49.2 NG/ML (20.0-100.0)
[2024-07-22 14:40] LABS: BILIRUBIN,TOTAL 0.5 MG/DL (0.3-1.2); CALCIUM LEVEL 8.8 MG/DL (8.5-10.1); CHOLESTEROL RISK RATIO 5.8 (<5); CREATININE FOR GFR 0.97 MG/DL (0.55-1.30); GLOMERULAR FILTRATION RATE 67.3 (>51); HDL CHOLESTEROL 38.6 MG/DL (>40); LDL CHOLESTEROL 141.6 MG/DL (<100); NON-HDL-C 185.4 MG/DL; POTASSIUM SERUM 3.3 MMOL/L (3.5-5.1); TOTAL PROTEIN 5.8 G/DL (5.7-8.2)
== END ==
LOC: M LAB REF 13:11
PROVIDERS: ATTEND Nurse Practitioner Family
DX: E55.9 Vitamin D deficiency, unspecified (principal); E66.01 Morbid (severe) obesity due to excess calories

== ENCOUNTER 2024-09-08 10:41 | Emergency (ER) | payer OTHER ==
[~2024-09-08] VITALS: Ht 157.5 cm; Wt 118.0 kg
[~2024-09-08 10:41] MED LIST changes: +AMIT10TA11 PO; -AMIT10TA7 PO; +LIDO1ADH93 TOP; -LIDO5DIS41 TOP
[2024-09-08] MEDS: HYDROCODONE/ACETAMINOPHEN 5/325 MG TABLET PO ONE (14:22)
[2024-09-08 14:42] LABS: BASO % 0.2 % (0.0-1.0); EOS # 0.1 10^3/uL (0.0-0.5); EOS % 1.1 % (0.0-3.0); HEMATOCRIT 40.6 % (36.0-47.0); HEMOGLOBIN 13.5 g/dl (12.0-15.5); LYMPH # 2.2 10^3/uL (1.5-5.0); LYMPH % 40.4 % (24.0-44.0); MEAN CORPUSCULAR HEMOGLOBIN 29.3 pg (27.0-33.0); MEAN CORPUSCULAR HGB CONC 33.3 g/dl (32.0-36.5); MEAN CORPUSCULAR VOLUME 88.3 fl (80.0-96.0); MONO # 0.4 10^3/uL (0.0-0.8); MONO % 7.1 % (2.0-8.0); NEUTROPHILS # 2.8 10^3/uL (1.5-8.5); PLATELET COUNT, AUTOMATED 173 10^3/uL (150-450); WHITE BLOOD COUNT 5.4 10^3/uL (4.0-10.0)
[2024-09-08 15:08] LABS: CALCIUM LEVEL 9.3 MG/DL (8.5-10.1); CREATININE FOR GFR 0.98 MG/DL (0.55-1.30); GLOMERULAR FILTRATION RATE 66.5 (>51); POTASSIUM SERUM 3.3 MMOL/L (3.5-5.1)
[2024-09-08 16:07] VITALS: BP 149/73; TEMP 97.5; O2SAT 97
[2024-09-08] MEDS: POTASSIUM CHLORIDE 10% LIQ 20MEQ/15ML UDC PO ONE (16:13)
== END 2024-09-08 16:23 | disposition home or self-care (01) ==
LOC: M ED 10:41
DX: E87.6 Hypokalemia (principal); R10.2 Pelvic and perineal pain; I48.91 Unspecified atrial fibrillation; Z86.718 Personal history of other venous thrombosis and embolism; F17.210 Nicotine dependence, cigarettes, uncomplicated; Z88.1 Allergy status to other antibiotic agents; Z88.8 Allergy status to other drugs, medicaments and biological substances; Z79.01 Long term (current) use of anticoagulants; Z79.899 Other long term (current) drug therapy

== ENCOUNTER 2024-09-19 13:26 | Inpatient (IN) | payer OTHER ==
[~2024-09-19] VITALS: Ht 157.5 cm; Wt 119.0 kg
[2024-09-19 17:04] LABS: BASO # 0.0 10^3/uL (0.0-0.2); BASO % 0.2 % (0.0-1.0); EOS # 0.0 10^3/uL (0.0-0.5); EOS % 0.6 % (0.0-3.0); LYMPH # 1.4 10^3/uL (1.5-5.0); LYMPH % 21.8 % (24.0-44.0); MONO # 0.4 10^3/uL (0.0-0.8); MONO % 6.6 % (2.0-8.0); NEUTROPHILS # 4.5 10^3/uL (1.5-8.5); NEUTROPHILS % 70.5 % (36.0-66.0); PLATELET COUNT, AUTOMATED 189 10^3/uL (150-450)
[2024-09-19] MEDS: MORPHINE 4 MG/ML 1 ML VIAL IV ONE (17:09)
[2024-09-19] MEDS ORDERED: TRAZ-186 PO (17:11)
[2024-09-19] MEDS ORDERED: FLUO40CA PO (17:11)
[2024-09-19] MEDS ORDERED: ROPI2TAB46 PO (17:11)
[2024-09-19] MEDS ORDERED: OXCA300T14 PO (17:11)
[2024-09-19] MEDS ORDERED: HOME MED LIST COMPLETE! XX SCH (17:15)
[2024-09-19 17:33] LABS: CALCIUM LEVEL 8.8 MG/DL (8.5-10.1); CARBON DIOXIDE LEVEL 28.0 MMOL/L (20-31); CHLORIDE LEVEL 105.0 MMOL/L (98-107); CREATININE FOR GFR 1.05 MG/DL (0.55-1.30); GLOMERULAR FILTRATION RATE 61.2 (>51); POTASSIUM SERUM 3.9 MMOL/L (3.5-5.1); SODIUM LEVEL 143.0 MMOL/L (136-145)
[2024-09-19] MEDS ORDERED: MORPHINE 2 MG/ML 1 ML VIAL IV PRN (18:05)
[2024-09-19] MEDS ORDERED: ACETAMINOPHEN 325 MG TAB PO PRN (18:05)
[2024-09-19] MEDS ORDERED: ONDANSETRON 4MG 2ML VIAL IV PRN (18:05)
[2024-09-19 19:51] LABS: INR 1.13
[2024-09-19] MEDS: SUCRALFATE 1 GM TAB PO SCH (20:31)
[2024-09-19] MEDS: APIXABAN 5 MG TAB PO SCH (20:31)
[2024-09-19] MEDS: traZODone 50 MG TAB PO PRN (21:22)
[2024-09-19] MEDS: MORPHINE 4 MG/ML 1 ML VIAL IV PRN (21:22)
[2024-09-19 21:35] VITALS: BP 101/58; TEMP 98; O2SAT 94
[2024-09-20 03:48] VITALS: BP 116/73; TEMP 97.3; O2SAT 94
[2024-09-20] MEDS: FLUoxetine 20 MG CAP PO SCH (08:18)
[2024-09-20 08:21] VITALS: BP 131/85
[2024-09-20] MEDS: amLODIPine 5 MG TAB PO SCH (08:21)
[2024-09-20] MEDS: OMEPRAZOLE 20MG CAP PO SCH (08:21)
[2024-09-20 08:34] LABS: PLATELET COUNT, AUTOMATED 159 10^3/uL (150-450)
[2024-09-20 08:59] LABS: ALT/SGPT 17.0 U/L (7.0-40); AST/SGOT 21.0 U/L (<34); CALCIUM LEVEL 8.7 MG/DL (8.5-10.1); CARBON DIOXIDE LEVEL 29.0 MMOL/L (20-31); CHLORIDE LEVEL 104.0 MMOL/L (98-107); CREATININE FOR GFR 0.98 MG/DL (0.55-1.30); GLOMERULAR FILTRATION RATE 66.5 (>51); POTASSIUM SERUM 3.6 MMOL/L (3.5-5.1); SODIUM LEVEL 145.0 MMOL/L (136-145)
[2024-09-20 12:00] VITALS: BP 110/62; TEMP 97.9; O2SAT 94
[2024-09-20] MEDS: ACETAMINOPHEN 325 MG TAB PO SCH (12:32)
[2024-09-20] MEDS: LIDOCAINE 5% PATCH TD SCH (12:32)
[2024-09-20] MEDS ORDERED: PERCOCET 5MG/325MG TAB PO PRN (17:15)
[2024-09-20] MEDS ORDERED: MORPHINE 2 MG/ML 1 ML VIAL IV PRN (17:15)
[2024-09-20] MEDS: PERCOCET 5MG/325MG TAB PO PRN (20:12)
[2024-09-20 20:17] VITALS: BP 97/64; TEMP 97.3; O2SAT 95
[2024-09-21 05:52] VITALS: BP 98/54; TEMP 97.5; O2SAT 91
[2024-09-21 08:00] VITALS: BP 113/86
[2024-09-21 11:45] VITALS: BP 99/62; TEMP 97.5; O2SAT 97
[2024-09-21 13:23] VITALS: BP 123/72
[2024-09-21] MEDS: IBUPROFEN 600 MG TAB PO SCH (19:06)
[2024-09-21] MEDS ORDERED: MORPHINE 2 MG/ML 1 ML VIAL IV PRN ×2 (19:20→19:25)
[2024-09-21] MEDS ORDERED: MOM 30 ML SUSPENSION UDC PO PRN (19:30)
[2024-09-21 20:00] VITALS: BP 110/58; TEMP 97.9; O2SAT 95
[2024-09-21] MEDS: NS (Normal Saline) 0.9% 1,000 ML IV SCH (20:31)
[2024-09-21 22:30] LABS: ALT/SGPT 29.0 U/L (7.0-40); AST/SGOT 50.0 U/L (<34); CALCIUM LEVEL 7.8 MG/DL (8.5-10.1); CARBON DIOXIDE LEVEL 25.0 MMOL/L (20-31); CHLORIDE LEVEL 106.0 MMOL/L (98-107); CREATININE FOR GFR 0.88 MG/DL (0.55-1.30); GLOMERULAR FILTRATION RATE 75.7 (>51); POTASSIUM SERUM 4.1 MMOL/L (3.5-5.1); SODIUM LEVEL 143.0 MMOL/L (136-145)
[2024-09-22 02:44] LABS: ALT/SGPT 30.0 U/L (7.0-40); AST/SGOT 45.0 U/L (<34); CALCIUM LEVEL 7.9 MG/DL (8.5-10.1); CARBON DIOXIDE LEVEL 26.0 MMOL/L (20-31); CHLORIDE LEVEL 106.0 MMOL/L (98-107); CREATININE FOR GFR 0.95 MG/DL (0.55-1.30); GLOMERULAR FILTRATION RATE 69.0 (>51); POTASSIUM SERUM 3.8 MMOL/L (3.5-5.1); SODIUM LEVEL 143.0 MMOL/L (136-145)
[2024-09-22 04:13] VITALS: BP 128/62; TEMP 98.2; O2SAT 97
[2024-09-22 06:07] LABS: PLATELET COUNT, AUTOMATED 168 10^3/uL (150-450)
[2024-09-22 06:37] LABS: ALT/SGPT 29.0 U/L (7.0-40); AST/SGOT 38.0 U/L (<34); CALCIUM LEVEL 8.2 MG/DL (8.5-10.1); CARBON DIOXIDE LEVEL 30.0 MMOL/L (20-31); CHLORIDE LEVEL 105.0 MMOL/L (98-107); CREATININE FOR GFR 0.98 MG/DL (0.55-1.30); GLOMERULAR FILTRATION RATE 66.5 (>51); POTASSIUM SERUM 3.7 MMOL/L (3.5-5.1); SODIUM LEVEL 142.0 MMOL/L (136-145)
[2024-09-22] MEDS: MOM 30 ML SUSPENSION UDC PO SCH (09:40)
[2024-09-22 12:00] VITALS: BP 119/64; TEMP 98.1; O2SAT 97
[2024-09-22 20:18] VITALS: BP 112/60; TEMP 98.2; O2SAT 96
[2024-09-23 04:13] VITALS: BP 136/75; TEMP 97.9; O2SAT 98
[2024-09-23 12:16] VITALS: BP 145/76; TEMP 98.1; O2SAT 96
[2024-09-23 13:53] LABS: ALT/SGPT 34 U/L (7.0-40); AST/SGOT 49 U/L (<34); CALCIUM LEVEL 8.5 MG/DL (8.5-10.1); CARBON DIOXIDE LEVEL 27 MMOL/L (20-31); CHLORIDE LEVEL 106 MMOL/L (98-107); CREATININE FOR GFR 0.85 MG/DL (0.55-1.30); GLOMERULAR FILTRATION RATE 78.9 (>51); POTASSIUM SERUM 4.4 MMOL/L (3.5-5.1); SODIUM LEVEL 143 MMOL/L (136-145)
[2024-09-23 16:19] LABS: BASO # 0.0 10^3/uL (0.0-0.2); BASO % 0.3 % (0.0-1.0); EOS # 0.1 10^3/uL (0.0-0.5); EOS % 2.1 % (0.0-3.0); LYMPH # 1.5 10^3/uL (1.5-5.0); LYMPH % 40.8 % (24.0-44.0); MONO # 0.3 10^3/uL (0.0-0.8); MONO % 6.7 % (2.0-8.0); NEUTROPHILS # 1.8 10^3/uL (1.5-8.5); NEUTROPHILS % 49.3 % (36.0-66.0); PLATELET COUNT, AUTOMATED 149 10^3/uL (150-450)
[2024-09-23 20:30] VITALS: BP 129/64; TEMP 97.9; O2SAT 98
[2024-09-24 03:52] VITALS: BP 134/70; TEMP 97.9; O2SAT 97
[2024-09-24 12:12] VITALS: BP 144/68; TEMP 97.9; O2SAT 98
[2024-09-24] MEDS ORDERED: OXYC-517 PO (13:15)
[2024-09-24] MEDS ORDERED: COLA100C5 PO (13:18)
== END 2024-09-24 15:40 | disposition home or self-care (01) | DRG 340 ==
LOC: EDBD 13:26 → M ED 13:26 → M ED INP 18:02 → M MSPAV 21:35
PROVIDERS: ADMIT Internal Medicine; ATTEND Internal Medicine
DX: S72.051A Unspecified fracture of head of right femur, initial encounter for closed fracture (principal); I48.91 Unspecified atrial fibrillation; M79.7 Fibromyalgia; E78.5 Hyperlipidemia, unspecified; K21.9 Gastro-esophageal reflux disease without esophagitis; G89.4 Chronic pain syndrome; I10 Essential (primary) hypertension; J44.9 Chronic obstructive pulmonary disease, unspecified; M54.50 Low back pain, unspecified; F31.9 Bipolar disorder, unspecified; F41.9 Anxiety disorder, unspecified; G25.81 Restless legs syndrome; N39.3 Stress incontinence (female) (male); F60.3 Borderline personality disorder; F17.200 Nicotine dependence, unspecified, uncomplicated; Z90.79 Acquired absence of other genital organ(s); Z79.01 Long term (current) use of anticoagulants; Z79.899 Other long term (current) drug therapy; Z88.1 Allergy status to other antibiotic agents; Z88.2 Allergy status to sulfonamides; Z88.8 Allergy status to other drugs, medicaments and biological substances; W19.XXXA Unspecified fall, initial encounter; Y92.9 Unspecified place or not applicable

== ENCOUNTER → 2024-10-06 | Outpatient (CLI) | payer OTHER, MEDICAID ==
[~2024-10-06] MED LIST changes: -ACE65ERTAB PO; +ACET-1593 PO; +COLA100C5 PO; +FLUO40CA PO; +OXYC-517 PO; +TRAZ-186 PO
== END ==
LOC: M SOG 07:04
PROVIDERS: ATTEND Physician Assistant
DX: M16.11 Unilateral primary osteoarthritis, right hip (principal)

== ENCOUNTER 2024-10-20 16:06 | Emergency (ER) | payer MEDICAID, OTHER ==
[~2024-10-20] VITALS: Ht 157.5 cm; Wt 118.2 kg
[2024-10-20 20:21] VITALS: BP 145/71; TEMP 97.9; O2SAT 98
[2024-10-20] MEDS ORDERED: TRAM50TA2 PO (20:39)
[2024-10-20] MEDS: traMADol 50 MG TAB PO ONE (20:52)
== END 2024-10-20 21:29 | disposition home or self-care (01) ==
LOC: M ED 16:06
DX: M25.451 Effusion, right hip (principal); M16.11 Unilateral primary osteoarthritis, right hip; M87.051 Idiopathic aseptic necrosis of right femur; Z88.1 Allergy status to other antibiotic agents; Z88.8 Allergy status to other drugs, medicaments and biological substances; Z79.01 Long term (current) use of anticoagulants; Z79.899 Other long term (current) drug therapy

== ENCOUNTER 2024-10-29 09:29 | Outpatient (RCR) | payer MEDICAID | END 2024-11-09 | LOC: M PT 09:29 | PROVIDERS: ATTEND Physician Assistant | DX: M25.551 Pain in right hip (principal) ==

== ENCOUNTER → 2024-11-06 | Outpatient (CLI) | payer MEDICAID | LOC: M SOG 07:20 | PROVIDERS: ATTEND Physician Assistant | DX: S72.051A Unspecified fracture of head of right femur, initial encounter for closed fracture (principal); W18.30XA Fall on same level, unspecified, initial encounter; Y92.009 Unspecified place in unspecified non-institutional (private) residence as the place of occurrence of the external cause ==

== ENCOUNTER → 2024-11-20 | Outpatient (CLI) | payer MEDICAID ==
[~2024-11-20] MED LIST changes: -DIPH50CA PO; +DIPH50CA31 PO
== END ==
LOC: M PLARAD 12:23
PROVIDERS: ATTEND Physician Assistant
DX: M25.551 Pain in right hip (principal); M87.851 Other osteonecrosis, right femur; M25.451 Effusion, right hip; M70.61 Trochanteric bursitis, right hip; M70.62 Trochanteric bursitis, left hip

== ENCOUNTER 2024-11-26 13:30 | Outpatient (RCR) | payer MEDICAID | END 2024-12-09 | LOC: M PT 13:30 | PROVIDERS: ATTEND Physician Assistant | DX: M25.551 Pain in right hip (principal) ==

== ENCOUNTER 2024-12-10 19:22 | Emergency (ER) | payer MEDICAID, OTHER ==
[~2024-12-10] VITALS: Ht 157.5 cm; Wt 127.3 kg
[2024-12-10 19:31] VITALS: TEMP 99.4
[2024-12-10] MEDS: ACETAMINOPHEN *IV* 1,000 MG in IV 1 EA IV ONE (22:24)
[2024-12-11 00:19] VITALS: BP 98/57; O2SAT 94
== END 2024-12-11 00:24 | disposition home or self-care (01) ==
LOC: M ED 19:22
DX: S70.01XA Contusion of right hip, initial encounter (principal); S80.01XA Contusion of right knee, initial encounter; Y92.019 Unspecified place in single-family (private) house as the place of occurrence of the external cause; Y93.9 Activity, unspecified; Y99.9 Unspecified external cause status; W01.0XXA Fall on same level from slipping, tripping and stumbling without subsequent striking against object, initial encounter; Z88.1 Allergy status to other antibiotic agents; Z88.8 Allergy status to other drugs, medicaments and biological substances; Z79.01 Long term (current) use of anticoagulants; Z79.899 Other long term (current) drug therapy
CPT/HCPCS: 73521; 73552; 96365; 99284; J0131

== ENCOUNTER 2025-02-09 22:48 | Emergency (ER) | payer MEDICAID ==
[~2025-02-09] VITALS: Ht 157.5 cm; Wt 113.6 kg
[~2025-02-09 22:48] MED LIST changes: +ACET-1387 PO; -ACET-1593 PO
[2025-02-10] MEDS: PERCOCET 5MG/325MG TAB PO ONE (01:37)
[2025-02-10 04:44] VITALS: BP 120/61; TEMP 97.8; O2SAT 99
[2025-02-10] MEDS: OXYCODONE/APAP 5MG/325MG(HOME DOSE PACK) PO ONE (04:48)
== END 2025-02-10 04:50 | disposition home or self-care (01) ==
LOC: M ED 22:48 → EDBD 22:48 → M ED 02-10 04:50
DX: M25.551 Pain in right hip (principal); I10 Essential (primary) hypertension; K21.9 Gastro-esophageal reflux disease without esophagitis; M79.7 Fibromyalgia; F41.9 Anxiety disorder, unspecified; F32.A Depression, unspecified; Z88.1 Allergy status to other antibiotic agents; Z88.8 Allergy status to other drugs, medicaments and biological substances; Z79.01 Long term (current) use of anticoagulants; Z79.899 Other long term (current) drug therapy